=== PATIENT | female | born 1950 | race Caucasian/White ===

== ENCOUNTER 2017-06-08 12:20 | Inpatient (IN) | payer OTHER ==
[2017-06-08] MEDS ORDERED: IPRATROPIUM BR 0.02% 0.5 MG/2.5 ML VIAL.NEB. NEB ONE ×2 (12:26→20:01)
[2017-06-08] MEDS ORDERED: ALBUTEROL SO4 0.083% IH SOL 2.5 MG/3 ML VIAL.NEB. NEB ONE ×6 (12:26→20:03)
[2017-06-08 13:07] LABS: BASOPHIL 0.3 % (0-2.0); EOSINOPHIL 2.5 % (0-4.5); MCH 28.3 pg (25.7-33.7); MCHC 31.6 g/dl (32.0-36.0); MEAN CELL VOLUME 89.4 fl (80-96); MEAN PLT VOLUME 8.2 fl (7.5-11.1); NEUTROPHILS 82.2 % (42.8-82.8); PLATELET COUNT 332 K/MM3 (134-434); RDW 13.7 % (11.6-15.6); WHITE BLOOD COUNT 16.2 K/mm3 (4.0-10.0)
[2017-06-08 13:22] LABS: INR 1.05 (0.82-1.09); PROTHROMBIN TIME (PATIENT) 11.6 SEC (9.98-11.88)
[2017-06-08 13:31] LABS: ALBUMIN 2.8 g/dl (3.4-5.0); ANION GAP 6 (8-16); CALCIUM 8.7 mg/dL (8.5-10.1); CO2 38 mmol/L (21-32); CREATININE 0.5 mg/dL (0.55-1.02); GLUCOSE,RANDOM 99 mg/dL (74-106); SGPT/ALT 14 U/L (12-78)
[2017-06-08 13:34] LABS: ALK PHOS 72 U/L (45-117); BILIRUBIN,TOTAL 0.4 mg/dL (0.2-1.0); TOT PROT 6.2 g/dl (6.4-8.2); TROPONIN I < 0.02 ng/ml (0.00-0.05)
[2017-06-08 13:35] LABS: CPK 73 IU/L (26-192); SGOT/AST 23 U/L (15-37)
--- NOTE | 2017-06-08 13:48 | PDOC ---
History of Present Illness - General History Source: Patient Exam Limitations: No Limitations - History of Present Illness Initial Comments: 06/08/17 14:03 The patient is a 65 year old female, with a significant past medical history of AFib, COPD(s/p trach), hypertension, and anemia, who presents to the ED BIBA from [facility] for evaluation of shortness of breath. Per EMS, patient O2 Sats were dropping into the low 90s earlier today. At the time patient had her trach uncapped. She denies any fever or chills. She denies any chest pain, diaphoresis, or palpitations. Allergies: IV dye, iodine Past Surgical History: Tracheostomy PCP: Dr. Lopez <Guerita Adams - Last Filed: 06/08/17 14:06> <Prateek Peace - Last Filed: 06/08/17 16:47> - General Stated Complaint: SOB Time Seen by Provider: 06/08/17 12:38 Past History <Guerita Adams - Last Filed: 06/08/17 14:06> - Past Medical History Anemia: Yes Cardiac Disorders: Yes (a-fib) COPD: Yes HIV: Yes - Surgical History Cholecystectomy: Yes - Immunization History Immunization Up to Date: Yes - Psycho/Social/Smoking Cessation Hx Anxiety: No Suicidal Ideation: No Smoking History: Former smoker Have you smoked in the past 12 months: No If you are a former smoker, when did you quit?: 8 YEARS AGO Hx Alcohol Use: No Drug/Substance Use Hx: No Substance Use Type: None Hx Substance Use Treatment: No <Prateek Peace - Last Filed: 06/08/17 16:47> - Past Medical History Allergies/Adverse Reactions: Allergies Allergy/AdvReac Type Severity Reaction Status Date / Time peas Allergy Severe Difficulty Verified 02/01/16 17:53 Breathing Iodinated Contrast- Oral and Allergy Verified 02/01/16 17:53 IV Dye [Iodinated Contrast Media - IV Dye] iodine Allergy Verified 02/01/16 17:53 Home Medications: Ambulatory Orders Albuterol 2.5/Ipratropium 0.5 [Duoneb -] 1 neb NEB TID 02/01/16 Aspirin [Ecotrin] 81 mg PO DAILY 02/01/16 Benzocaine/Menthol [Cepacol Sore Throat Lozenge] 1 each MM PRN PRN 02/01/16 Chlorhexidine Gluconate [Hibiclens For Decolonization -] 1 ml PO BID 02/01/16 Diltiazem Cd [Cardizem Cd -] 180 mg PO DAILY 02/01/16 Fluticasone Propionate [Flovent Diskus] 44 mcg IH Q12H 02/01/16 Folic Acid 1 mg PO DAILY 02/01/16 Lactobacillus Acidophilus [Bacid -] 1 each PO BID 02/01/16 Levothyroxine [Synthroid -] 50 mcg PO DAILY 02/01/16 Lorazepam 0.5 mg PO TID PRN 02/01/16 Melatonin 3 mg PO HS 02/01/16 Mirtazapine 15 mg PO HS 02/01/16 Peg 400/Hypromellose/Glycerin [Artificial Tears Drops] 1 drop OU DAILY 02/01/16 Thiamine HCl [Vitamin B1 -] 100 mg PO DAILY 02/01/16 Vitamin B Complex Vit C No.3 [B Complex with Vitamin C] 1 each PO DAILY Vancomycin HCl [Vancocin HCl] 125 mg PO Q72H 02/02/16 Prednisone [Deltasone -] 20 mg PO DAILY tablet 02/09/16 Ranitidine [Zantac -] 150 mg PO DAILY tablet 02/09/16 Review of Systems - Review of Systems Able to Perform ROS?: Yes Comments:: 06/08/17 14:04 GENERAL/CONSTITUTIONAL: No fever or chills. No weakness. HEAD, EYES, EARS, NOSE AND THROAT: No change in vision. No ear pain or discharge. No sore throat. CARDIOVASCULAR: No chest pain or shortness of breath. RESPIRATORY: No cough, wheezing, or hemoptysis. GASTROINTESTINAL: No nausea, vomiting, diarrhea or constipation. GENITOURINARY: No dysuria, frequency, or change in urination. MUSCULOSKELETAL: No joint or muscle swelling or pain. No neck or back pain. SKIN: No rash NEUROLOGIC: No headache, vertigo, loss of consciousness, or change in strength/ sensation. ENDOCRINE: No increased thirst. No abnormal weight change. HEMATOLOGIC/LYMPHATIC: No anemia, easy bleeding, or history of blood clots. ALLERGIC/IMMUNOLOGIC: No hives or skin allergy. <Guerita Adams - Last Filed: 06/08/17 14:06> *Physical Exam - Vital Signs Last Vital Signs Temp Pulse Resp BP Pulse Ox 14 06/08/17 13:34 - Physical Exam Comments: 06/08/17 14:04 GENERAL: Awake, alert, and fully oriented, in no acute distress HEAD: No signs of trauma EYES: PERRLA, EOMI, sclera anicteric, conjunctiva clear ENT: Auricles normal inspection, hearing grossly normal, nares patent, oropharynx clear without exudates. Moist mucosa NECK: Normal ROM, supple, no lymphadenopathy, JVD, or masses LUNGS: Diffuse ronchi and wheezing. Attempted to change trach tube from uncuffed to cuffed, but was unsuccessful. HEART: Regular rate and rhythm, normal S1 and S2, no murmurs, rubs or gallops ABDOMEN: Soft, nontender, normoactive bowel sounds. No guarding, no rebound. No masses EXTREMITIES: Normal range of motion, no edema. No clubbing or cyanosis. No cords, erythema, or tenderness NEUROLOGICAL: Cranial nerves II through XII grossly intact. Normal speech, normal gait SKIN: Warm, Dry, normal turgor, no rashes or lesions noted <Guerita Adams - Last Filed: 06/08/17 14:06> - Vital Signs Last Vital Signs Temp Pulse Resp BP Pulse Ox 14 06/08/17 13:34 <Prateek Peace - Last Filed: 06/08/17 16:47> Heart Score/ECG Review - ECG Intrepretation Comment:: 06/08/17 14:06 VENT RATE: 86 bpm IMPRESSION: Normal sinus rhythm. <Guerita Adams - Last Filed: 06/08/17 14:06> ED Treatment Course - LABORATORY CBC & Chemistry Diagram: 06/08/17 12:30 06/08/17 12:30 - ADDITIONAL ORDERS Additional order review: Laboratory Results 06/08/17 06/08/17 12:30 12:30 INR 1.05 Sodium 139 Potassium 4.2 Chloride 95 L Carbon Dioxide 38 H Anion Gap 6 L BUN 15 D Creatinine 0.5 L Creat Clearance w eGFR > 60 Random Glucose 99 Calcium 8.7 Total Bilirubin 0.4 D AST 23 D ALT 14 D Alkaline Phosphatase 72 Creatine Kinase 73 Troponin I < 0.02 Total Protein 6.2 L Albumin 2.8 L D 06/08/17 12:30 RBC 4.04 MCV 89.4 MCHC 31.6 L RDW 13.7 MPV 8.2 Neutrophils % 82.2 Lymphocytes % 7.1 L D Monocytes % 7.9 Eosinophils % 2.5 D Basophils % 0.3 <Guerita Adams - Last Filed: 06/08/17 14:06> - LABORATORY CBC & Chemistry Diagram: 06/08/17 12:30 06/08/17 12:30 - ADDITIONAL ORDERS Additional order review: Laboratory Results 06/08/17 06/08/17 12:30 12:30 INR 1.05 Sodium 139 Potassium 4.2 Chloride 95 L Carbon Dioxide 38 H Anion Gap 6 L BUN 15 D Creatinine 0.5 L Creat Clearance w eGFR > 60 Random Glucose 99 Calcium 8.7 Total Bilirubin 0.4 D AST 23 D ALT 14 D Alkaline Phosphatase 72 Creatine Kinase 73 Troponin I < 0.02 Total Protein 6.2 L Albumin 2.8 L D 06/08/17 12:30 RBC 4.04 MCV 89.4 MCHC 31.6 L RDW 13.7 MPV 8.2 Neutrophils % 82.2 Lymphocytes % 7.1 L D Monocytes % 7.9 Eosinophils % 2.5 D Basophils % 0.3 <Prateek Peace - Last Filed: 06/08/17 16:47> *DC/Admit/Observation/Transfer - Attestations Scribe Attestion: 06/08/17 14:05 Documentation prepared by Guerita Adams, acting as medical detailist for Prateek Peace DO. <Guerita Adams - Last Filed: 06/08/17 14:06> - Discharge Dispostion Admit: Yes - Attestations Physician Attestion: 06/08/17 13:48 I, Dr. Prateek Peace, attest that this document has been prepared under my direction and personally reviewed by me in its entirety. I further attest, that it accurately reflects all work, treatment, procedures and medical decision -making performed by me. <Prateek Peace - Last Filed: 06/08/17 16:47> Diagnosis at time of Disposition: Chronic obstructive asthma with exacerbation, Hypoxia - Discharge Dispostion Condition at time of disposition: Improved - Referrals Referrals: Cindy Cavanaugh MD [Primary Care Provider] -
[2017-06-08] MEDS ORDERED: methylPREDNISolone NA SUCC 125 MG/2 ML VIAL IVPB ONE (14:22)
[2017-06-08] MEDS ORDERED: LEVOFLOXACIN 750 MG IVPB 150 ML IVPB ONE ×2 (14:23→14:53)
[2017-06-08] MEDS ORDERED: methylPREDNISolone NA SUCC 125 MG/2 ML VIAL ONE (14:52)
[2017-06-08 16:44] VITALS: BMI 25.4
[2017-06-08] MEDS ORDERED: ALBUTEROL SO4 2.5/IPRATROPIUM 0.5 INH SOL 3 ML VIAL.NEB. NEB ONE (19:05)
[2017-06-08] MEDS ORDERED: VANCOMYCIN HCL 125 MG PO SCH (20:15)
[2017-06-08] MEDS: ALBUTEROL SO4 2.5/IPRATROPIUM 0.5 INH SOL 3 ML VIAL.NEB. NEB SCH (22:21)
[2017-06-08] MEDS: LORazepam 0.5 MG TABLET PO PRN (22:30)
[2017-06-08] MEDS: ACETAMINOPHEN 325 MG TABLET (FP) PO PRN (22:30)
[2017-06-08] MEDS: MIRTAZAPINE 15 MG TABLET (FP) PO SCH (22:30)
[2017-06-08] MEDS: LACTOBACILLUS ACIDOPHILUS 1 EACH TAB (FP) PO SCH (22:30)
[2017-06-08] MEDS: methylPREDNISolone NA SUCC 40 MG/1 ML VIAL IVPB SCH (22:30)
[2017-06-08] MEDS: HEPARIN NA (PORCINE) 5,000 UNITS/ML 1ML VIAL SQ SCH (22:31)
[2017-06-08] MEDS: MELATONIN 1 MG TABLET PO SCH (22:45)
[2017-06-09] MEDS: ALBUTEROL SO4 2.5/IPRATROPIUM 0.5 INH SOL 3 ML VIAL.NEB. NEB SCH ×5 (00:21→23:02)
[2017-06-09] MEDS: methylPREDNISolone NA SUCC 40 MG/1 ML VIAL IVPB SCH ×4 (03:02→20:57)
[2017-06-09] MEDS: LEVOTHYROXINE NA 50 MCG TABLET (FP) PO SCH (06:16)
[2017-06-09 07:47] LABS: BASOPHIL 0.1 % (0-2.0); MCH 29.3 pg (25.7-33.7); MEAN CELL VOLUME 88.9 fl (80-96); MEAN PLT VOLUME 8.5 fl (7.5-11.1); NEUTROPHILS 94.2 % (42.8-82.8); PLATELET COUNT 333 K/MM3 (134-434); RDW 13.6 % (11.6-15.6); WHITE BLOOD COUNT 7.9 K/mm3 (4.0-10.0)
--- NOTE | 2017-06-09 08:08 | HP ---
Admitting History and Physical - Admission History of Present Illness: 65 year old female, with a significant past medical history of AFib, COPD(s/p trach), hypertension, and anemia, who presents to the ED BIBA from [facility] for evaluation of shortness of breath. Per EMS, patient O2 Sats were dropping into the low 90s. At the time patient had her trach uncapped. She denies any fever, chills, diaphoresis, or palpitations. c/o intermittent chest pain initially right sided then on left - Past Medical History Cardiovascular: Yes: AFIB, HTN Pulmonary: Yes: COPD, Previously Intubated, Other (RESPIRATORY FAILURE) ...: No Heme/Onc: Yes: Anemia Infectious Disease: Yes: C-Diff Endocrine: Yes: Hypothyroidism - Past Surgical History Past Surgical History: Yes: Appendectomy - Smoking History Smoking history: Former smoker Have you smoked in the past 12 months: No If you are a former smoker, when did you quit?: 2008 - Alcohol/Substance Use Hx Alcohol Use: Yes (SOCIALLY) - Social History ADL: Support Services History of Recent Travel: No Home Medications - Allergies Allergies/Adverse Reactions: Allergies Allergy/AdvReac Type Severity Reaction Status Date / Time peas Allergy Severe Difficulty Verified 02/01/16 17:53 Breathing Iodinated Contrast- Oral and Allergy Verified 02/01/16 17:53 IV Dye [Iodinated Contrast Media - IV Dye] iodine Allergy Verified 02/01/16 17:53 - Home Medications Home Medications: Ambulatory Orders Albuterol 2.5/Ipratropium 0.5 [Duoneb -] 1 neb NEB TID 02/01/16 Aspirin [Ecotrin] 81 mg PO DAILY 02/01/16 Benzocaine/Menthol [Cepacol Sore Throat Lozenge] 1 each MM PRN PRN 02/01/16 Chlorhexidine Gluconate [Hibiclens For Decolonization -] 1 ml PO BID 02/01/16 Diltiazem Cd [Cardizem Cd -] 180 mg PO DAILY 02/01/16 Fluticasone Propionate [Flovent Diskus] 44 mcg IH Q12H 02/01/16 Folic Acid 1 mg PO DAILY 02/01/16 Lactobacillus Acidophilus [Bacid -] 1 each PO BID 02/01/16 Levothyroxine [Synthroid -] 50 mcg PO DAILY 02/01/16 Lorazepam 0.5 mg PO TID PRN 02/01/16 Melatonin 3 mg PO HS 02/01/16 Mirtazapine 15 mg PO HS 02/01/16 Peg 400/Hypromellose/Glycerin [Artificial Tears Drops] 1 drop OU DAILY 02/01/16 Thiamine HCl [Vitamin B1 -] 100 mg PO DAILY 02/01/16 Vitamin B Complex Vit C No.3 [B Complex with Vitamin C] 1 each PO DAILY Vancomycin HCl [Vancocin HCl] 125 mg PO Q72H 02/02/16 Prednisone [Deltasone -] 20 mg PO DAILY tablet 02/09/16 Ranitidine [Zantac -] 150 mg PO DAILY tablet 02/09/16 Review of Systems - Review of Systems Cardiovascular: reports: Chest Pain Respiratory: reports: SOB Gastrointestinal: denies: Abdominal Pain Neurological: denies: Change in LOC Physical Examination Vital Signs: Vital Signs Temperature 98.1 F 06/09/17 06:00 Pulse Rate 90 06/09/17 06:00 Respiratory Rate 19 06/09/17 06:00 Blood Pressure 140/54 06/09/17 06:00 O2 Sat by Pulse Oximetry (%) 99 06/09/17 06:00 Cardiovascular: Yes: Murmur, S1, S2 Respiratory: Yes: Diminished, Rhonchi, Other (trach) Gastrointestinal: Yes: Normal Bowel Sounds, Soft Labs: CBC, BMP 06/09/17 05:35 Imaging - Results Chest X-ray: Report Reviewed Problem List - Problems (1) Asthma exacerbation in COPD Assessment/Plan: NEBS IV STEROIDS PULM CONSULT OXYGEN Code(s): J44.1 - CHRONIC OBSTRUCTIVE PULMONARY DISEASE W (ACUTE) EXACERBATION J45.901 - UNSPECIFIED ASTHMA WITH (ACUTE) EXACERBATION (2) Acute and chronic respiratory failure with hypoxia Assessment/Plan: ABOVE Code(s): J96.21 - ACUTE AND CHRONIC RESPIRATORY FAILURE WITH HYPOXIA (3) Chest pain Assessment/Plan: FOLLOW CE EKG CARDIO Code(s): R07.9 - CHEST PAIN, UNSPECIFIED (4) Hypothyroid Assessment/Plan: SAME MEDS Code(s): E03.9 - HYPOTHYROIDISM, UNSPECIFIED
[2017-06-09 08:13] LABS: ALBUMIN 2.9 g/dl (3.4-5.0); ANION GAP 5 (8-16); CALCIUM 8.8 mg/dL (8.5-10.1); CO2 41 mmol/L (21-32); CREATININE 0.6 mg/dL (0.55-1.02); GLUCOSE,RANDOM 126 mg/dL (74-106); SGOT/AST 12 U/L (15-37); SGPT/ALT 15 U/L (12-78)
[2017-06-09 08:17] LABS: ALK PHOS 75 U/L (45-117); BILIRUBIN,TOTAL 0.5 mg/dL (0.2-1.0); TOT PROT 6.4 g/dl (6.4-8.2); TROPONIN I < 0.02 ng/ml (0.00-0.05)
[2017-06-09] MEDS: RANITIDINE HCL 150 MG TABLET (FP) PO SCH (09:47)
[2017-06-09] MEDS: THIAMINE HCL 100 MG TABLET (FP) PO SCH (09:47)
[2017-06-09] MEDS: ASPIRIN COATED 81 MG TABLET.EC PO SCH (09:47)
[2017-06-09] MEDS: LACTOBACILLUS ACIDOPHILUS 1 EACH TAB (FP) PO SCH ×2 (09:47→21:56)
[2017-06-09] MEDS: FOLIC ACID 1 MG TABLET (FP) PO SCH (09:47)
[2017-06-09] MEDS: CEFTRIAXONE 50 ML IVPB SCH (09:48)
[2017-06-09] MEDS: HEPARIN NA (PORCINE) 5,000 UNITS/ML 1ML VIAL SQ SCH ×2 (09:54→21:45)
--- NOTE | 2017-06-09 11:26 | EKG ---
Test Reason : Blood Pressure : / mmHG Vent. Rate : 086 BPM Atrial Rate : 086 BPM P-R Int : 134 ms QRS Dur : 074 ms QT Int : 382 ms P-R-T Axes : 076 -04 059 degrees QTc Int : 457 ms POOR DATA QUALITY, INTERPRETATION MAY BE ADVERSELY AFFECTED NORMAL SINUS RHYTHM NORMAL ECG WHEN COMPARED WITH ECG OF 02-FEB-2016 09:21, PREMATURE ATRIAL COMPLEXES ARE NO LONGER PRESENT NONSPECIFIC T WAVE ABNORMALITY NO LONGER EVIDENT IN ANTEROLATERAL LEADS Confirmed by TAINA MACIAS MD ([id number]) on 06/09/2017 11:26:34 AM Referred By: Confirmed By:TAINA MACIAS MD
[2017-06-09] MEDS: ACETAMINOPHEN 325 MG TABLET (FP) PO PRN (11:47)
[2017-06-09] MEDS ORDERED: oxyCODONE HCL 5 MG TABLET PO ONE (13:11)
--- NOTE | 2017-06-09 13:11 | CON.PULM ---
Consult Consult Specialty:: PULMONARY Referred by:: Dr. Lopez Reason for Consultation:: shortness of breath - History of Present Illness Chief Complaint: shortness of breath History of Present Illness: 67yo female with h/o HTN, COPD, chronic hypoxic respiratory failure s/p trach but maintained on trach collar, atrial fibrillation who [facility] breath. She does report a nonproductive cough as well as wheezing. +chest pain described as sharp, reproducible with palpation and worsened with deep inspiration and cough. No fevers or chills. - History Source History Provided By: Patient, Medical Record Limitations to Obtaining History: Clinical Condition - Past Medical History Cardio/Vascular: Yes: AFIB, HTN Pulmonary: Yes: COPD, Previously Intubated, Other (RESPIRATORY FAILURE) ...: No Infectious Disease: Yes: C-Diff Endocrine: Yes: Hypothyroidism - Past Surgical History Past Surgical History: Yes: Appendectomy - Alcohol/Substance Use Hx Alcohol Use: Yes (SOCIALLY) - Smoking History Smoking history: Former smoker Have you smoked in the past 12 months: No If you are a former smoker, when did you quit?: 2008 - Social History Usual Living Arrangement: Prison ADL: Support Services History of Recent Travel: No Home Medications - Allergies Allergies/Adverse Reactions: Allergies Allergy/AdvReac Type Severity Reaction Status Date / Time peas Allergy Severe Difficulty Verified 02/01/16 17:53 Breathing Iodinated Contrast- Oral and Allergy Verified 02/01/16 17:53 IV Dye [Iodinated Contrast Media - IV Dye] iodine Allergy Verified 02/01/16 17:53 - Home Medications Home Medications: Ambulatory Orders Albuterol 2.5/Ipratropium 0.5 [Duoneb -] 1 neb NEB TID 02/01/16 Aspirin [Ecotrin] 81 mg PO DAILY 02/01/16 Benzocaine/Menthol [Cepacol Sore Throat Lozenge] 1 each MM PRN PRN 02/01/16 Chlorhexidine Gluconate [Hibiclens For Decolonization -] 1 ml PO BID 02/01/16 Diltiazem Cd [Cardizem Cd -] 180 mg PO DAILY 02/01/16 Fluticasone Propionate [Flovent Diskus] 44 mcg IH Q12H 02/01/16 Folic Acid 1 mg PO DAILY 02/01/16 Lactobacillus Acidophilus [Bacid -] 1 each PO BID 02/01/16 Levothyroxine [Synthroid -] 50 mcg PO DAILY 02/01/16 Lorazepam 0.5 mg PO TID PRN 02/01/16 Melatonin 3 mg PO HS 02/01/16 Mirtazapine 15 mg PO HS 02/01/16 Peg 400/Hypromellose/Glycerin [Artificial Tears Drops] 1 drop OU DAILY 02/01/16 Thiamine HCl [Vitamin B1 -] 100 mg PO DAILY 02/01/16 Vitamin B Complex Vit C No.3 [B Complex with Vitamin C] 1 each PO DAILY Vancomycin HCl [Vancocin HCl] 125 mg PO Q72H 02/02/16 Prednisone [Deltasone -] 20 mg PO DAILY tablet 02/09/16 Ranitidine [Zantac -] 150 mg PO DAILY tablet 02/09/16 Review of Systems - Review of Systems Constitutional: denies: Chills, Fever Eyes: denies: Recent Change in Vision HENT: denies: Nasal Congestion, Throat Pain Neck: denies: Lumps, Stiffness, Tenderness Cardiovascular: reports: Palpitations, Shortness of Breath. denies: Chest Pain , Edema Respiratory: reports: Cough, SOB, SOB on Exertion, Wheezing. denies: Hemoptysis Gastrointestinal: denies: Abdominal Pain, Nausea, Vomiting Genitourinary: denies: Dysuria Neurological: denies: Dizziness, Headache Physical Exam Vital Sings: Vital Signs Temperature 97.3 F L 06/09/17 09:00 Pulse Rate 111 H 06/09/17 09:00 Respiratory Rate 22 06/09/17 09:00 Blood Pressure 150/76 06/09/17 09:00 O2 Sat by Pulse Oximetry (%) 99 06/09/17 06:00 Constitutional: Yes: Anxious Eyes: Yes: Conjunctiva Clear, EOM Intact HENT: Yes: Atraumatic, Normocephalic Neck: Yes: Supple, Trachea Midline Cardiovascular: Yes: Regular Rate and Rhythm Respiratory: Yes: Rhonchi ...Clubbing: No Gastrointestinal: Yes: Normal Bowel Sounds, Soft. No: Tenderness Edema: No Labs: CBC, BMP 06/09/17 05:35 06/09/17 05:35 Imaging - Results Chest X-ray: Report Reviewed, Image Reviewed (no infiltrates) Problem List - Problems (1) COPD exacerbation Code(s): J44.1 - CHRONIC OBSTRUCTIVE PULMONARY DISEASE W (ACUTE) EXACERBATION (2) Chronic respiratory failure with hypoxia Code(s): J96.11 - CHRONIC RESPIRATORY FAILURE WITH HYPOXIA (3) A-fib Code(s): I48.91 - UNSPECIFIED ATRIAL FIBRILLATION (4) Chest pain Code(s): R07.9 - CHEST PAIN, UNSPECIFIED Assessment/Plan Acute COPD Exacerbation Chronic Hypoxic Respiratory Failure s/p trach Atrial Fibrillation HTN - agree with IV medrol - inhaled bronchodilators - O2 to keep SpO2 >90% - rate controlled - DVT prophylaxis - pain control Thank you for this consult Tariq Alexander MD
[2017-06-09] MEDS: ARTIFICIAL TEARS (POLYVINYL ALCOHOL 1.4%) OPTH DROPS OU SCH (13:58)
--- NOTE | 2017-06-09 16:30 | PN ---
Progress Note (short form) - Note Progress Note: ID consult dictated Acute exacerbation COPD Hx refractory C difficile colitis Observe off antibiotics
[2017-06-09] MEDS ORDERED: BRIMONIDINE TARTRATE 0.15% OPHTHALMIC 5 ML BOTTLE OS SCH (17:15)
[2017-06-09] MEDS ORDERED: DORZOLAMIDE 2% HCL OPHTHALMIC SOLUTION 10 ML BOTTLE OS SCH (17:30)
[2017-06-09] MEDS: MIRTAZAPINE 15 MG TABLET (FP) PO SCH (21:45)
[2017-06-09] MEDS: MELATONIN 1 MG TABLET PO SCH (21:56)
[2017-06-09] MEDS: LORazepam 0.5 MG TABLET PO PRN (21:57)
[2017-06-10] MEDS: methylPREDNISolone NA SUCC 40 MG/1 ML VIAL IVPB SCH ×4 (02:40→22:00)
[2017-06-10] MEDS: ACETAMINOPHEN 325 MG TABLET (FP) PO PRN ×3 (04:55→20:16)
[2017-06-10] MEDS: LEVOTHYROXINE NA 50 MCG TABLET (FP) PO SCH (06:12)
[2017-06-10] MEDS: ALBUTEROL SO4 2.5/IPRATROPIUM 0.5 INH SOL 3 ML VIAL.NEB. NEB SCH ×2 (06:19→11:30)
[2017-06-10] MEDS: ASPIRIN COATED 81 MG TABLET.EC PO SCH (09:57)
[2017-06-10] MEDS: LACTOBACILLUS ACIDOPHILUS 1 EACH TAB (FP) PO SCH ×2 (09:57→22:00)
[2017-06-10] MEDS: THIAMINE HCL 100 MG TABLET (FP) PO SCH (09:57)
[2017-06-10] MEDS: CEFTRIAXONE 50 ML IVPB SCH (09:58)
[2017-06-10] MEDS: FOLIC ACID 1 MG TABLET (FP) PO SCH (09:58)
[2017-06-10] MEDS: RANITIDINE HCL 150 MG TABLET (FP) PO SCH (09:58)
[2017-06-10] MEDS: ARTIFICIAL TEARS (POLYVINYL ALCOHOL 1.4%) OPTH DROPS OU SCH (10:55)
[2017-06-10] MEDS: HEPARIN NA (PORCINE) 5,000 UNITS/ML 1ML VIAL SQ SCH ×2 (10:55→22:27)
--- NOTE | 2017-06-10 11:17 | PN ---
Progress Note, Physician History of Present Illness: PULMONARY ALERT,C/O INCREASED SOB,DIFFICULTY BRINGING UP SPUTUM.O2 SAT 98% ON TRACH COLLAR. - Current Medication List Current Medications: Active Medications Acetaminophen (Tylenol -) 650 mg PO Q4H PRN PRN Reason: FEVER OR PAIN Last Admin: 06/10/17 04:55 Dose: 650 mg Albuterol/Ipratropium (Duoneb -) 1 amp NEB QIDR [facility] Last Admin: 06/10/17 06:19 Dose: Not Given Artificial Tears (Artificial Tears) 1 drop OU DAILY [facility] Last Admin: 06/09/17 13:58 Dose: 1 drop Aspirin (Ecotrin -) 81 mg PO DAILY [facility] Last Admin: 06/10/17 09:57 Dose: 81 mg Diltiazem HCl (Cardizem Cd -) 180 mg PO DAILY [facility] Last Admin: 06/10/17 09:57 Dose: 180 mg Folic Acid (Folic Acid -) 1 mg PO DAILY [facility] Last Admin: 06/10/17 09:58 Dose: 1 mg Heparin Sodium (Porcine) (Heparin -) 5,000 unit SQ BID [facility] Last Admin: 06/10/17 10:55 Dose: Not Given Ceftriaxone Sodium (Rocephin 1gm Ivpb (Pre-Docked)) 50 mls @ 100 mls/hr IVPB DAILY [facility] Last Admin: 06/10/17 09:58 Dose: 100 mls/hr Lactobacillus Acidophilus (Bacid -) 1 tab PO BID [facility] Last Admin: 06/10/17 09:57 Dose: 1 tab Levothyroxine Sodium (Synthroid -) 50 mcg PO DAILY@0700 [facility] Last Admin: 06/10/17 06:12 Dose: 50 mcg Lorazepam (Ativan -) 0.5 mg PO TID PRN PRN Reason: ANXIETY Last Admin: 06/09/17 21:57 Dose: 0.5 mg Melatonin (Melatonin) 3 mg PO HS [facility] Last Admin: 06/09/17 21:56 Dose: 3 mg Methylprednisolone Sodium Succinate (Solu-Medrol -) 40 mg IVPB Q6H-IV [facility] Last Admin: 06/10/17 09:57 Dose: 40 mg Mirtazapine (Remeron -) 15 mg PO HS [facility] Last Admin: 06/09/17 21:45 Dose: Not Given Ranitidine HCl (Zantac -) 150 mg PO DAILY [facility] Last Admin: 06/10/17 09:58 Dose: 150 mg Thiamine HCl (Vitamin B1 -) 100 mg PO DAILY [facility] Last Admin: 06/10/17 09:57 Dose: 100 mg - Objective Vital Signs: Vital Signs Temperature 98.9 F 06/10/17 05:23 Pulse Rate 83 06/10/17 05:23 Respiratory Rate 20 06/10/17 05:23 Blood Pressure 135/56 06/10/17 05:23 O2 Sat by Pulse Oximetry (%) 94 L 06/09/17 22:13 Constitutional: Yes: Anxious, Mild Distress Eyes: Yes: WNL HENT: Yes: WNL Neck: Yes: Supple (TRACH) Cardiovascular: Yes: Pulse Irregular, S1, S2 Respiratory: Yes: Rales (BILATERAL CRACKLES 2/3 UP) Gastrointestinal: Yes: Normal Bowel Sounds, Soft Extremities: Yes: WNL Edema: No Labs: CBC, BMP 06/09/17 05:35 06/09/17 05:35 INR, PTT INR 1.05 (0.82-1.09) 06/08/17 12:30 Assessment/Plan Problem List - Problems (1) COPD exacerbation Code(s): J44.1 - CHRONIC OBSTRUCTIVE PULMONARY DISEASE W (ACUTE) EXACERBATION (2) Chronic respiratory failure with hypoxia Code(s): J96.11 - CHRONIC RESPIRATORY FAILURE WITH HYPOXIA (3) A-fib Code(s): I48.91 - UNSPECIFIED ATRIAL FIBRILLATION (4) Chest pain Code(s): R07.9 - CHEST PAIN, UNSPECIFIED Assessment/Plan Acute COPD Exacerbation Chronic Hypoxic Respiratory Failure s/p trach Atrial Fibrillation HTN - IV medrol - inhaled bronchodilators - O2 to keep SpO2 >90% - rate controlled - DVT prophylaxis - pain control - mucomyst - ENT f/u DR RAGLAND
--- NOTE | 2017-06-10 11:24 | CON.CARD ---
Consult Consult Specialty:: Cardiology Referred by:: Sneha Ash Reason for Consultation:: Dyspnea - History of Present Illness Chief Complaint: Dyspnea History of Present Illness: 67yo female with h/o HTN, COPD, chronic hypoxic respiratory failure s/p trach and maintained on trach collar, paroxysmal atrial fibrillation not on a/c due to fall risk referred from the assisted for worsening shortness of breath, nonproductive cough, thick, tenacious sputum as well as wheezing. She reports atypical chest pain described as sharp, reproducible with palpation and worsened with deep inspiration and cough. No fevers or chills, orthopnea, LE edema. - History Source History Provided By: Patient Limitations to Obtaining History: No Limitations - Past Medical History Cardio/Vascular: Yes: AFIB, HTN Pulmonary: Yes: COPD, Previously Intubated, Other (RESPIRATORY FAILURE) ...: No Infectious Disease: Yes: C-Diff Endocrine: Yes: Hypothyroidism - Past Surgical History Past Surgical History: Yes: Appendectomy - Alcohol/Substance Use Hx Alcohol Use: Yes (SOCIALLY) - Smoking History Smoking history: Former smoker Have you smoked in the past 12 months: No If you are a former smoker, when did you quit?: 2008 - Social History Usual Living Arrangement: [facility] ADL: Support Services History of Recent Travel: No Home Medications - Allergies Allergies/Adverse Reactions: Allergies Allergy/AdvReac Type Severity Reaction Status Date / Time peas Allergy Severe Difficulty Verified 02/01/16 17:53 Breathing Iodinated Contrast- Oral and Allergy Verified 02/01/16 17:53 IV Dye [Iodinated Contrast Media - IV Dye] iodine Allergy Verified 02/01/16 17:53 - Home Medications Home Medications: Ambulatory Orders Albuterol 2.5/Ipratropium 0.5 [Duoneb -] 1 neb NEB TID 02/01/16 Aspirin [Ecotrin] 81 mg PO DAILY 02/01/16 Benzocaine/Menthol [Cepacol Sore Throat Lozenge] 1 each MM PRN PRN 02/01/16 Chlorhexidine Gluconate [Hibiclens For Decolonization -] 1 ml PO BID 02/01/16 Diltiazem Cd [Cardizem Cd -] 180 mg PO DAILY 02/01/16 Fluticasone Propionate [Flovent Diskus] 44 mcg IH Q12H 02/01/16 Folic Acid 1 mg PO DAILY 02/01/16 Lactobacillus Acidophilus [Bacid -] 1 each PO BID 02/01/16 Levothyroxine [Synthroid -] 50 mcg PO DAILY 02/01/16 Lorazepam 0.5 mg PO TID PRN 02/01/16 Melatonin 3 mg PO HS 02/01/16 Mirtazapine 15 mg PO HS 02/01/16 Peg 400/Hypromellose/Glycerin [Artificial Tears Drops] 1 drop OU DAILY 02/01/16 Thiamine HCl [Vitamin B1 -] 100 mg PO DAILY 02/01/16 Vitamin B Complex Vit C No.3 [B Complex with Vitamin C] 1 each PO DAILY Vancomycin HCl [Vancocin HCl] 125 mg PO Q72H 02/02/16 Prednisone [Deltasone -] 20 mg PO DAILY tablet 02/09/16 Ranitidine [Zantac -] 150 mg PO DAILY tablet 02/09/16 Review of Systems - Review of Systems Respiratory: reports: Cough, SOB, Wheezing Vital Signs: Vital Signs Temperature 98.9 F 06/10/17 05:23 Pulse Rate 83 06/10/17 05:23 Respiratory Rate 20 06/10/17 05:23 Blood Pressure 135/56 06/10/17 05:23 O2 Sat by Pulse Oximetry (%) 94 L 06/09/17 22:13 Constitutional: Yes: No Distress, Calm, Thin HENT: Yes: Other (Trach collar) Neck: Yes: Supple Respiratory: Yes: Regular, Cough, Diminished, SOB Gastrointestinal: Yes: Normal Bowel Sounds, Soft Cardiovascular: Yes: Tachycardia JVD: No Carotid Bruit: No Heart Sounds: Yes: S1, S2 Murmur: Yes: Systolic Murmur, Grade 1 Edema: No - Other Data Labs, Other Data: CBC, BMP 06/09/17 05:35 06/09/17 05:35 INR, PTT INR 1.05 (0.82-1.09) 06/08/17 12:30 NSR @ 86, PAC no longer seen Tele: SR Ejection Fraction %: LVEF > or = 40 % Imaging - Results Chest X-ray: Report Reviewed (NAD) Problem List - Problems (1) Chronic respiratory failure with hypoxia Code(s): J96.11 - CHRONIC RESPIRATORY FAILURE WITH HYPOXIA (2) A-fib Code(s): I48.91 - UNSPECIFIED ATRIAL FIBRILLATION Qualifiers: Atrial fibrillation type: paroxysmal Qualified Code(s): I48.0 - Paroxysmal atrial fibrillation (3) COPD exacerbation Code(s): J44.1 - CHRONIC OBSTRUCTIVE PULMONARY DISEASE W (ACUTE) EXACERBATION (4) Chest pain Code(s): R07.9 - CHEST PAIN, UNSPECIFIED Qualifiers: Chest pain type: pleurodynia Qualified Code(s): R07.81 - Pleurodynia (5) Hypothyroid Code(s): E03.9 - HYPOTHYROIDISM, UNSPECIFIED Qualifiers: Hypothyroidism type: unspecified Qualified Code(s): E03.9 - Hypothyroidism, unspecified (6) Tracheostomy dependence Code(s): Z93.0 - TRACHEOSTOMY STATUS Assessment/Plan Echo 09/09/2015: nl LV/EF, nl RV, mild MR 1. Acute COPD Exacerbation 2. Chronic Hypoxic Respiratory Failure s/p trach 3. Paroxysmal Atrial Fibrillation/atrial tachycardia not on AC due to falls risks per prior notes 4. Atypical chest pain referable to #1 5. HTN 6. Hx refractory C difficile colitis 7. Hypothyroidism P: 1. IV medrol with GI protection, inhaled bronchodilators, O2 to keep SpO2 >90 %, mucomyst, DVT prophylaxis, d/c empiric abx per ID 2. Continue ASA 81 qd, Cardizem CD 180 qd 3. D/c telemetry 4. Thank you for consultative opportunity
[2017-06-10] MEDS ORDERED: ALBUTEROL SO4 0.083% IH SOL 2.5 MG/3 ML VIAL.NEB. NEB ONE (11:50)
[2017-06-10] MEDS ORDERED: ALBUTEROL SO4 2.5/IPRATROPIUM 0.5 INH SOL 3 ML VIAL.NEB. NEB PRN (11:55)
[2017-06-10] MEDS ORDERED: ALBUTEROL SO4 0.083% IH SOL 2.5 MG/3 ML VIAL.NEB. NEB SCH (12:00)
[2017-06-10] MEDS ORDERED: ACETYLCYSTEINE 20% 200MG/ML 4 ML VIAL *FOR ORAL / INH USE ONLY NEB SCH (12:00)
--- NOTE | 2017-06-10 13:29 | PN ---
Progress Note, Physician History of Present Illness: Slightly dyspneic at rest + cough; reports scant whitish tracheal secretions Afebrile WBC WNL - Current Medication List Current Medications: Active Medications Acetaminophen (Tylenol -) 650 mg PO Q4H PRN PRN Reason: FEVER OR PAIN Last Admin: 06/10/17 04:55 Dose: 650 mg Acetylcysteine (Mucomyst 20 Oral / Inh Use Only*) 200 mg NEB QIDR [facility] Albuterol Sulfate (Ventolin 0.083% Nebulizer Soln -) 1 amp NEB QIDR [facility] Artificial Tears (Artificial Tears) 1 drop OU DAILY [facility] Last Admin: 06/10/17 10:55 Dose: 1 drop Aspirin (Ecotrin -) 81 mg PO DAILY [facility] Last Admin: 06/10/17 09:57 Dose: 81 mg Diltiazem HCl (Cardizem Cd -) 180 mg PO DAILY [facility] Last Admin: 06/10/17 09:57 Dose: 180 mg Folic Acid (Folic Acid -) 1 mg PO DAILY [facility] Last Admin: 06/10/17 09:58 Dose: 1 mg Heparin Sodium (Porcine) (Heparin -) 5,000 unit SQ BID [facility] Last Admin: 06/10/17 10:55 Dose: Not Given Ceftriaxone Sodium (Rocephin 1gm Ivpb (Pre-Docked)) 50 mls @ 100 mls/hr IVPB DAILY [facility] Last Admin: 06/10/17 09:58 Dose: 100 mls/hr Lactobacillus Acidophilus (Bacid -) 1 tab PO BID [facility] Last Admin: 06/10/17 09:57 Dose: 1 tab Levothyroxine Sodium (Synthroid -) 50 mcg PO DAILY@0700 [facility] Last Admin: 06/10/17 06:12 Dose: 50 mcg Lorazepam (Ativan -) 0.5 mg PO TID PRN PRN Reason: ANXIETY Last Admin: 06/09/17 21:57 Dose: 0.5 mg Melatonin (Melatonin) 3 mg PO [facility] Last Admin: 06/09/17 21:56 Dose: 3 mg Methylprednisolone Sodium Succinate (Solu-Medrol -) 40 mg IVPB Q6H-IV [facility] Last Admin: 06/10/17 09:57 Dose: 40 mg Mirtazapine (Remeron -) 15 mg PO HS [facility] Last Admin: 06/09/17 21:45 Dose: Not Given Ranitidine HCl (Zantac -) 150 mg PO DAILY [facility] Last Admin: 06/10/17 09:58 Dose: 150 mg Thiamine HCl (Vitamin B1 -) 100 mg PO DAILY [facility] Last Admin: 06/10/17 09:57 Dose: 100 mg - Objective Vital Signs: Vital Signs Temperature 98.1 F 06/10/17 08:00 Pulse Rate 77 06/10/17 08:00 Respiratory Rate 20 06/10/17 08:00 Blood Pressure 148/63 06/10/17 08:00 O2 Sat by Pulse Oximetry (%) 94 L 06/09/17 22:13 Constitutional: Yes: No Distress, Cachectic Eyes: Yes: Conjunctiva Clear Cardiovascular: Yes: Regular Rate and Rhythm, S1, S2 Respiratory: Yes: Diminished Gastrointestinal: Yes: Normal Bowel Sounds, Soft. No: Tenderness Edema: No Labs: CBC, BMP 06/09/17 05:35 06/09/17 05:35 INR, PTT INR 1.05 (0.82-1.09) 06/08/17 12:30 Assessment/Plan Acute exacerbation COPD Hx refractory C difficile Continue bronchodilators, steroids Observe off antibiotics
--- NOTE | 2017-06-10 16:56 | CONS ---
DATE OF CONSULTATION: DATE OF DICTATION: 06/10/2017 INFECTIOUS DISEASE CONSULTATION HISTORY OF PRESENT ILLNESS: The patient is a 67-year-old female evaluated for possible pneumonia. The patient has a history of COPD, she is status post tracheostomy. [facility] While [facility], she was noted to have increasing shortness of breath and hypoxemia. In addition, she had a cough productive of whitish sputum. She has had some increase in her chronic cough. She was evaluated at [facility] where she was noted to have low-grade fever and an elevated white blood cell count. She was empirically treated with ceftriaxone in addition to bronchodilators and intravenous corticosteroids. At the present time she is awake and alert. She is slightly short of breath at rest on tracheostomy collar. She reports cough productive of scants amount of whitish tracheal secretions. She denies any chest pain. She has a history of refractory C. 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 At the present time, she denies any diarrhea. PAST MEDICAL HISTORY: Positive for atrial fibrillation, chronic respiratory failure, COPD, hypertension, chronic anemia, hypothyroidism, history of refractory C. difficile colitis. PAST SURGICAL HISTORY: Status post tracheostomy, sinus surgery, and appendectomy. ALLERGIES: IODINE and IV CONTRAST. MEDICATION: Include Solu-Medrol, Tylenol, heparin, Remeron, Cardizem, Zantac, Ecotrin, Synthroid. SOCIAL HISTORY: She resides in a residential facility. She has been there approximately 2 years. She is a former smoker. No history of tobacco use or alcohol abuse. SYSTEMS REVIEW: Neurologic: No loss of consciousness, seizure activity, or focal weakness. Cardiac: Negative chest pain or palpitations. Respiratory: As per HPI. Gastrointestinal: As per HPI. Genitourinary: Negative for urinary tract infection. LABORATORY DATA: White count on admission 16.2, presently 7.9. Hematocrit 35.5, platelet count 333. BUN 14, creatinine 0.6. Chest x-ray, chronic changes bilaterally, no acute infiltrate. PHYSICAL EXAMINATION: General: She is cachectic, she is awake and alert. She is slightly short of breath at rest on tracheostomy collar. Vital signs: Temperature 99.1, blood pressure 135/80, pulse 88 irregular. Respirations 22 per minute. HEENT: Sclerae anicteric. Cardiovascular: Heart sounds S1, S2. Irregular. Respiratory: Lungs diminished breath sounds bilaterally. A few rhonchi. No rales or wheezing. Abdomen: Soft. No tenderness elicited. Extremities: Negative for edema. IMPRESSION: 1. Acute exacerbation of chronic obstructive pulmonary disease. 2. History of refractory Clostridium difficile colitis. 3. No clear infiltrate on chest x-ray, patient presently afebrile with normal white blood cell count. In light of her recent history of severe C. difficile colitis requiring fecal transplant, would observe off antibiotic therapy, continue bronchodilators, and intravenous corticosteroids. Will follow. Thank you for the kind referral. KARISSA ROSAS M.D. [id number]
[2017-06-10] MEDS: ACETYLCYSTEINE 20% 200MG/ML 4 ML VIAL *FOR ORAL / INH USE ONLY NEB SCH ×2 (17:41→17:55)
[2017-06-10] MEDS: ALBUTEROL SO4 0.083% IH SOL 2.5 MG/3 ML VIAL.NEB. NEB SCH ×2 (17:42→17:56)
[2017-06-10] MEDS: FLUTICASONE PROPIONATE 44 MCG IH SCH ×2 (17:53→18:07)
--- NOTE | 2017-06-10 19:23 | PN ---
Progress Note, Physician Chief Complaint: SOB History of Present Illness: NAD, in bed, on 100% trach, +cough, still feels SOB - Current Medication List Current Medications: Active Medications Acetaminophen (Tylenol -) 650 mg PO Q4H PRN PRN Reason: FEVER OR PAIN Last Admin: 06/10/17 14:50 Dose: 650 mg Acetylcysteine (Mucomyst 20 Oral / Inh Use Only*) 200 mg NEB QIDR [facility] Last Admin: 06/10/17 17:55 Dose: 200 mg Albuterol Sulfate (Ventolin 0.083% Nebulizer Soln -) 1 amp NEB QIDR [facility] Last Admin: 06/10/17 17:56 Dose: 1 amp Artificial Tears (Artificial Tears) 1 drop OU DAILY [facility] Last Admin: 06/10/17 10:55 Dose: 1 drop Aspirin (Ecotrin -) 81 mg PO DAILY [facility] Last Admin: 06/10/17 09:57 Dose: 81 mg Diltiazem HCl (Cardizem Cd -) 180 mg PO DAILY [facility] Last Admin: 06/10/17 09:57 Dose: 180 mg Folic Acid (Folic Acid -) 1 mg PO DAILY [facility] Last Admin: 06/10/17 09:58 Dose: 1 mg Heparin Sodium (Porcine) (Heparin -) 5,000 unit SQ BID [facility] Last Admin: 06/10/17 10:55 Dose: Not Given Lactobacillus Acidophilus (Bacid -) 1 tab PO BID [facility] Last Admin: 06/10/17 09:57 Dose: 1 tab Levothyroxine Sodium (Synthroid -) 50 mcg PO DAILY@0700 [facility] Last Admin: 06/10/17 06:12 Dose: 50 mcg Lorazepam (Ativan -) 0.5 mg PO TID PRN PRN Reason: ANXIETY Last Admin: 06/09/17 21:57 Dose: 0.5 mg Melatonin (Melatonin) 3 mg PO HS [facility] Last Admin: 06/09/17 21:56 Dose: 3 mg Methylprednisolone Sodium Succinate (Solu-Medrol -) 40 mg IVPB Q6H-IV [facility] Last Admin: 06/10/17 19:04 Dose: 40 mg Mirtazapine (Remeron -) 15 mg PO HS [facility] Last Admin: 06/09/17 21:45 Dose: Not Given Ranitidine HCl (Zantac -) 150 mg PO DAILY [facility] Last Admin: 06/10/17 09:58 Dose: 150 mg Thiamine HCl (Vitamin B1 -) 100 mg PO DAILY [facility] Last Admin: 06/10/17 09:57 Dose: 100 mg - Objective Vital Signs: Vital Signs Temperature 97.9 F 06/10/17 14:00 Pulse Rate 92 H 06/10/17 14:00 Respiratory Rate 20 06/10/17 14:00 Blood Pressure 139/74 06/10/17 14:00 O2 Sat by Pulse Oximetry (%) 94 L 06/10/17 09:00 Constitutional: Yes: Well Nourished, No Distress, Calm Cardiovascular: Yes: Regular Rate and Rhythm Respiratory: Yes: Regular, Cough, Other (Tracheotomy) Gastrointestinal: Yes: Normal Bowel Sounds, Hyperactive Bowel Sounds, Other ( diarrhea) Musculoskeletal: Yes: WNL Extremities: Yes: WNL Edema: No Peripheral Pulses WNL: Yes Integumentary: Yes: WNL Neurological: Yes: Alert, Oriented Psychiatric: Yes: Alert Labs: CBC, BMP 06/09/17 05:35 06/09/17 05:35 INR, PTT INR 1.05 (0.82-1.09) 06/08/17 12:30 Problem List - Problems (1) Chronic respiratory failure with hypoxia Code(s): J96.11 - CHRONIC RESPIRATORY FAILURE WITH HYPOXIA (2) COPD (chronic obstructive pulmonary disease) Assessment/Plan: Trach mask, keep O2 >90% -IV steroids -Neb tx -Mucomyst -suction PRN Code(s): J44.9 - CHRONIC OBSTRUCTIVE PULMONARY DISEASE, UNSPECIFIED Qualifiers : COPD type: COPD with acute exacerbation Qualified Code(s): J44.1 - Chronic obstructive pulmonary disease with (acute) exacerbation (3) Diarrhea Assessment/Plan: Cdiff negative stool OB,O&P,culture ordered Code(s): R19.7 - DIARRHEA, UNSPECIFIED (4) Tracheostomy dependence Code(s): Z93.0 - TRACHEOSTOMY STATUS Assessment/Plan -Stool collection for O&P,culture and OB -pulmonary,ID and cardiology consult appreciated -IV steroids -neb tx -Trach mask with humidification -GI consult
[2017-06-10] MEDS: MIRTAZAPINE 15 MG TABLET (FP) PO SCH (22:27)
[2017-06-10] MEDS: MELATONIN 1 MG TABLET PO SCH (22:37)
[2017-06-10] MEDS ORDERED: traMADol HCL 50 MG TABLET PO PRN (22:52)
[2017-06-10] MEDS ORDERED: PT OWN MED DRAWER 7, Y5N ONE (23:21)
[2017-06-10] MEDS: LORazepam 0.5 MG TABLET PO PRN (23:26)
[2017-06-11] MEDS: methylPREDNISolone NA SUCC 40 MG/1 ML VIAL IVPB SCH ×4 (03:40→20:25)
[2017-06-11] MEDS: ACETAMINOPHEN 325 MG TABLET (FP) PO PRN ×2 (03:42→09:27)
[2017-06-11] MEDS: ACETYLCYSTEINE 20% 200MG/ML 4 ML VIAL *FOR ORAL / INH USE ONLY NEB SCH ×5 (06:15→23:58)
[2017-06-11] MEDS: ALBUTEROL SO4 0.083% IH SOL 2.5 MG/3 ML VIAL.NEB. NEB SCH ×5 (06:15→23:59)
[2017-06-11] MEDS: LEVOTHYROXINE NA 50 MCG TABLET (FP) PO SCH (06:53)
[2017-06-11] MEDS ORDERED: PT OWN MED DRAWER 7, Y5N ONE (09:18)
[2017-06-11] MEDS: LACTOBACILLUS ACIDOPHILUS 1 EACH TAB (FP) PO SCH ×2 (09:27→22:48)
[2017-06-11] MEDS: THIAMINE HCL 100 MG TABLET (FP) PO SCH (09:27)
[2017-06-11] MEDS: RANITIDINE HCL 150 MG TABLET (FP) PO SCH (09:27)
[2017-06-11] MEDS: ASPIRIN COATED 81 MG TABLET.EC PO SCH (09:27)
[2017-06-11] MEDS: FOLIC ACID 1 MG TABLET (FP) PO SCH (09:27)
[2017-06-11] MEDS: HEPARIN NA (PORCINE) 5,000 UNITS/ML 1ML VIAL SQ SCH ×3 (09:27→22:49)
[2017-06-11] MEDS: ARTIFICIAL TEARS (POLYVINYL ALCOHOL 1.4%) OPTH DROPS OU SCH (09:28)
--- NOTE | 2017-06-11 11:34 | PN ---
Progress Note, Physician Chief Complaint: Events noted Complains of dyspnea and palpitations Appears anxious History of Present Illness: Patient was seen and examined. Awake and alert. Chart was reviewed Complains of right sided chest discomfort Dyspnea persists and complains of palpitations - Current Medication List Current Medications: Active Medications Acetaminophen (Tylenol -) 650 mg PO Q4H PRN PRN Reason: FEVER OR PAIN Last Admin: 06/11/17 09:27 Dose: 650 mg Acetylcysteine (Mucomyst 20 Oral / Inh Use Only*) 200 mg NEB QIDR [facility] Last Admin: 06/11/17 06:15 Dose: 200 mg Albuterol Sulfate (Ventolin 0.083% Nebulizer Soln -) 1 amp NEB QIDR [facility] Last Admin: 06/11/17 06:15 Dose: 1 amp Artificial Tears (Artificial Tears) 1 drop OU DAILY [facility] Last Admin: 06/11/17 09:28 Dose: 1 drop Aspirin (Ecotrin -) 81 mg PO DAILY [facility] Last Admin: 06/11/17 09:27 Dose: 81 mg Diltiazem HCl (Cardizem Cd -) 180 mg PO DAILY [facility] Last Admin: 06/11/17 09:27 Dose: 180 mg Folic Acid (Folic Acid -) 1 mg PO DAILY [facility] Last Admin: 06/11/17 09:27 Dose: 1 mg Heparin Sodium (Porcine) (Heparin -) 5,000 unit SQ BID [facility] Last Admin: 06/11/17 09:46 Dose: Not Given Lactobacillus Acidophilus (Bacid -) 1 tab PO BID [facility] Last Admin: 06/11/17 09:27 Dose: 1 tab Levothyroxine Sodium (Synthroid -) 50 mcg PO DAILY@0700 [facility] Last Admin: 06/11/17 06:53 Dose: 50 mcg Lorazepam (Ativan -) 0.5 mg PO TID PRN PRN Reason: ANXIETY Last Admin: 06/10/17 23:26 Dose: 0.5 mg Melatonin (Melatonin) 3 mg PO [facility] Last Admin: 06/10/17 22:37 Dose: 3 mg Methylprednisolone Sodium Succinate (Solu-Medrol -) 40 mg IVPB Q6H-IV [facility] Last Admin: 06/11/17 09:27 Dose: 40 mg Mirtazapine (Remeron -) 15 mg PO HS [facility] Last Admin: 06/10/17 22:27 Dose: 15 mg Ranitidine HCl (Zantac -) 150 mg PO DAILY [facility] Last Admin: 06/11/17 09:27 Dose: 150 mg Thiamine HCl (Vitamin B1 -) 100 mg PO DAILY [facility] Last Admin: 06/11/17 09:27 Dose: 100 mg Tramadol HCl (Ultram -) 50 mg PO Q8H PRN Last Admin: 06/11/17 06:53 Dose: 50 mg - Objective Vital Signs: Vital Signs Temperature 98.5 F 06/11/17 06:00 Pulse Rate 83 06/11/17 06:44 Respiratory Rate 20 06/11/17 06:00 Blood Pressure 179/76 06/11/17 06:00 O2 Sat by Pulse Oximetry (%) 96 06/11/17 06:44 Neck: Yes: Supple Cardiovascular: Yes: Regular Rate and Rhythm, Tachycardia, S1, S2. No: Murmur Respiratory: Yes: Diminished Gastrointestinal: Yes: Normal Bowel Sounds, Soft. No: Tenderness Edema: No Labs: CBC, BMP 06/09/17 05:35 06/09/17 05:35 Problem List - Problems (1) Asthma exacerbation in COPD Code(s): J44.1 - CHRONIC OBSTRUCTIVE PULMONARY DISEASE W (ACUTE) EXACERBATION J45.901 - UNSPECIFIED ASTHMA WITH (ACUTE) EXACERBATION (2) Chronic respiratory failure with hypoxia Code(s): J96.11 - CHRONIC RESPIRATORY FAILURE WITH HYPOXIA (3) A-fib Code(s): I48.91 - UNSPECIFIED ATRIAL FIBRILLATION Qualifiers: Atrial fibrillation type: paroxysmal Qualified Code(s): I48.0 - Paroxysmal atrial fibrillation (4) Acute on chronic respiratory failure with hypoxia and hypercapnia Code(s): J96.21 - ACUTE AND CHRONIC RESPIRATORY FAILURE WITH HYPOXIA J96.22 - ACUTE AND CHRONIC RESPIRATORY FAILURE WITH HYPERCAPNIA (5) COPD exacerbation Code(s): J44.1 - CHRONIC OBSTRUCTIVE PULMONARY DISEASE W (ACUTE) EXACERBATION (6) Chest pain Code(s): R07.9 - CHEST PAIN, UNSPECIFIED Qualifiers: Chest pain type: pleurodynia Qualified Code(s): R07.81 - Pleurodynia (7) Hypothyroid Code(s): E03.9 - HYPOTHYROIDISM, UNSPECIFIED Qualifiers: Hypothyroidism type: unspecified Qualified Code(s): E03.9 - Hypothyroidism, unspecified (8) Recurrent Clostridium difficile diarrhea Code(s): A04.7 - ENTEROCOLITIS DUE TO CLOSTRIDIUM DIFFICILE (9) Tracheostomy dependence Code(s): Z93.0 - TRACHEOSTOMY STATUS Assessment/Plan 1. Acute COPD Exacerbation 2. Chronic Hypoxic Respiratory Failure s/p tracheostomy 3. Paroxysmal Atrial Fibrillation/atrial tachycardia not on anticoagulation due to falls risks 4. Atypical chest pain referable to #1 5. HTN 6. History of refractory C. Difficile colitis 7. Hypothyroidism PLAN: 1. Continue IV steroids with GI protection, inhaled bronchodilators, O2 via mask and DVT prophylaxis 2. Continue ASA 81 qd and Cardizem CD which can be up-titrated - increase to 240 mg once a day 3. Consider anxiety meds Further plans are to follow Bert Ivan MD
[2017-06-11] MEDS: LORazepam 0.5 MG TABLET PO PRN (11:43)
--- NOTE | 2017-06-11 12:16 | CON.GI ---
Consult Consult Specialty:: GI for Dr. Wong Referred by:: Sneha Ash NP Reason for Consultation:: Diarrhea - History of Present Illness Chief Complaint: Diarrhea History of Present Illness: 67F w/ end stage COPD, trach dependent admitted from [facility] for evaluation of worsening SOB. She says that since admission she has been having loose BM's. She has a history of refractory C. Diff and explains that she underwent Stool transplant at [facility] 03/22. This was performed via colonoscopy and polyps were removed as well. She denies abdominal pain or rectal bleeding but feels as though her shortness of breath is worse today. She had one loose BM today. She was given ceftriaxone during admission. She says that she has not had diarrhea since her fecal transplant - History Source History Provided By: Patient, Medical Record - Past Medical History Cardio/Vascular: Yes: AFIB, HTN Pulmonary: Yes: COPD, Previously Intubated, Other (RESPIRATORY FAILURE) ...: No Infectious Disease: Yes: C-Diff Endocrine: Yes: Hypothyroidism - Past Surgical History Past Surgical History: Yes: Appendectomy - Alcohol/Substance Use Hx Alcohol Use: Yes (SOCIALLY) - Smoking History Smoking history: Former smoker Have you smoked in the past 12 months: No If you are a former smoker, when did you quit?: 2008 - Social History Usual Living Arrangement: [facility] ADL: Support Services History of Recent Travel: No Home Medications - Allergies Allergies/Adverse Reactions: Allergies Allergy/AdvReac Type Severity Reaction Status Date / Time peas Allergy Severe Difficulty Verified 02/01/16 17:53 Breathing Iodinated Contrast- Oral and Allergy Verified 02/01/16 17:53 IV Dye [Iodinated Contrast Media - IV Dye] iodine Allergy Verified 02/01/16 17:53 - Home Medications Home Medications: Ambulatory Orders Albuterol 2.5/Ipratropium 0.5 [Duoneb -] 1 neb NEB TID 02/01/16 Aspirin [Ecotrin] 81 mg PO DAILY 02/01/16 Benzocaine/Menthol [Cepacol Sore Throat Lozenge] 1 each MM PRN PRN 02/01/16 Chlorhexidine Gluconate [Hibiclens For Decolonization -] 1 ml PO BID 02/01/16 Diltiazem Cd [Cardizem Cd -] 180 mg PO DAILY 02/01/16 Fluticasone Propionate [Flovent Diskus] 44 mcg IH Q12H 02/01/16 Folic Acid 1 mg PO DAILY 02/01/16 Lactobacillus Acidophilus [Bacid -] 1 each PO BID 02/01/16 Levothyroxine [Synthroid -] 50 mcg PO DAILY 02/01/16 Lorazepam 0.5 mg PO TID PRN 02/01/16 Melatonin 3 mg PO HS 02/01/16 Mirtazapine 15 mg PO HS 02/01/16 Peg 400/Hypromellose/Glycerin [Artificial Tears Drops] 1 drop OU DAILY 02/01/16 Thiamine HCl [Vitamin B1 -] 100 mg PO DAILY 02/01/16 Vitamin B Complex Vit C No.3 [B Complex with Vitamin C] 1 each PO DAILY Vancomycin HCl [Vancocin HCl] 125 mg PO Q72H 02/02/16 Prednisone [Deltasone -] 20 mg PO DAILY tablet 02/09/16 Ranitidine [Zantac -] 150 mg PO DAILY tablet 02/09/16 Review of Systems - Review of Systems Constitutional: denies: Chills HENT: denies: Difficult Swallowing Cardiovascular: reports: Shortness of Breath. denies: Chest Pain Gastrointestinal: reports: Diarrhea. denies: Abdominal Pain, Constipation, Rectal Bleeding Physical Exam-GI Vital Signs: Vital Signs Temperature 98.5 F 06/11/17 06:00 Pulse Rate 83 06/11/17 06:44 Respiratory Rate 20 06/11/17 06:00 Blood Pressure 179/76 06/11/17 06:00 O2 Sat by Pulse Oximetry (%) 96 06/11/17 06:44 Constitutional: Yes: Calm Eyes: No: Sclera Icterus Cardiovascular: Yes: Regular Rate and Rhythm. No: Murmur Respiratory: Yes: Rhonchi (scattered rhonchi bilateral bases), Tachypnea (With use of accessory muscles) Gastrointestinal Inspection: No: Distention ...Auscultate: Yes: Normoactive Bowel Sounds ...Palpate: No: Hepatomegaly, Splenomegaly, Tenderness Edema: No (No LE edema) Neurological: Yes: Alert, Oriented Labs: CBC, BMP 06/09/17 05:35 06/09/17 05:35 INR, PTT INR 1.05 (0.82-1.09) 06/08/17 12:30 Microbiology 06/10/17 10:30 Stool Clostridium difficile Antigen (TEDDY) - Negative 06/10/17 10:30 Stool Clostridium difficile Toxin Assay - Negative Problem List - Problems (1) Diarrhea Assessment/Plan: C. Diff toxin and antigen negative. ? if antibiotic / medication induced D/C ranitidine for now D/C melatonin if feasible Check TSH Taper off IV corticosteroids as feasible. ? if contributing Stool for O&P / culture Monitor electrolytes / CBC Patient's main complain to me was worsening SOB. I let her nurse know for further evaluation by primary team Code(s): R19.7 - DIARRHEA, UNSPECIFIED Qualifiers: Diarrhea type: unspecified type Qualified Code(s): R19.7 - Diarrhea , unspecified
[2017-06-11] MEDS ORDERED: MUPIROCIN 2% TOPICAL OINTMENT FOR DECOLONIZATION NS SCH (12:30)
--- NOTE | 2017-06-11 12:37 | PN ---
Progress Note, Physician Chief Complaint: SOB History of Present Illness: NAD, in bed, on 100% trach, +cough, still feels SOB positive MRSA left Nare, ID on board - Current Medication List Current Medications: Active Medications Acetaminophen (Tylenol -) 650 mg PO Q4H PRN PRN Reason: FEVER OR PAIN Last Admin: 06/11/17 09:27 Dose: 650 mg Acetylcysteine (Mucomyst 20 Oral / Inh Use Only*) 200 mg NEB QIDR [facility] Last Admin: 06/11/17 06:15 Dose: 200 mg Albuterol Sulfate (Ventolin 0.083% Nebulizer Soln -) 1 amp NEB QIDR [facility] Last Admin: 06/11/17 06:15 Dose: 1 amp Artificial Tears (Artificial Tears) 1 drop OU DAILY [facility] Last Admin: 06/11/17 09:28 Dose: 1 drop Aspirin (Ecotrin -) 81 mg PO DAILY [facility] Last Admin: 06/11/17 09:27 Dose: 81 mg Diltiazem HCl (Cardizem Cd -) 240 mg PO DAILY [facility] Folic Acid (Folic Acid -) 1 mg PO DAILY [facility] Last Admin: 06/11/17 09:27 Dose: 1 mg Heparin Sodium (Porcine) (Heparin -) 5,000 unit SQ BID [facility] Last Admin: 06/11/17 09:46 Dose: Not Given Lactobacillus Acidophilus (Bacid -) 1 tab PO BID [facility] Last Admin: 06/11/17 09:27 Dose: 1 tab Levothyroxine Sodium (Synthroid -) 50 mcg PO DAILY@0700 [facility] Last Admin: 06/11/17 06:53 Dose: 50 mcg Lorazepam (Ativan -) 0.5 mg PO TID PRN PRN Reason: ANXIETY Last Admin: 06/11/17 11:43 Dose: 0.5 mg Melatonin (Melatonin) 3 mg PO HS [facility] Last Admin: 06/10/17 22:37 Dose: 3 mg Methylprednisolone Sodium Succinate (Solu-Medrol -) 40 mg IVPB Q6H-IV [facility] Last Admin: 06/11/17 09:27 Dose: 40 mg Mirtazapine (Remeron -) 15 mg PO HS [facility] Last Admin: 06/10/17 22:27 Dose: 15 mg Mupirocin (Bactroban Ointment (For Decolonization) -) 1 applic NS BID [facility] Stop: 06/16/17 12:29 Ranitidine HCl (Zantac -) 150 mg PO DAILY [facility] Last Admin: 06/11/17 09:27 Dose: 150 mg Thiamine HCl (Vitamin B1 -) 100 mg PO DAILY [facility] Last Admin: 06/11/17 09:27 Dose: 100 mg Tramadol HCl (Ultram -) 50 mg PO Q8H PRN Last Admin: 06/11/17 06:53 Dose: 50 mg - Objective Vital Signs: Vital Signs Temperature 98.5 F 06/11/17 06:00 Pulse Rate 83 06/11/17 06:44 Respiratory Rate 20 06/11/17 06:00 Blood Pressure 179/76 06/11/17 06:00 O2 Sat by Pulse Oximetry (%) 96 06/11/17 06:44 Constitutional: Yes: Well Nourished, Anxious (mild), Mild Distress (sob) Cardiovascular: Yes: Pulse Irregular Respiratory: Yes: Diminished, SOB, Other (on trach collar, 50%) Gastrointestinal: Yes: Normal Bowel Sounds, Soft, Tenderness (generalized) Musculoskeletal: Yes: WNL Extremities: Yes: WNL Edema: No Peripheral Pulses WNL: Yes Neurological: Yes: Alert, Oriented Psychiatric: Yes: Alert Labs: CBC, BMP 06/09/17 05:35 06/09/17 05:35 INR, PTT INR 1.05 (0.82-1.09) 06/08/17 12:30 Problem List - Problems (1) Chronic respiratory failure with hypoxia Code(s): J96.11 - CHRONIC RESPIRATORY FAILURE WITH HYPOXIA (2) COPD (chronic obstructive pulmonary disease) Assessment/Plan: Trach mask, increased to 70%, keep O2 >90% -IV steroids -Neb tx -Mucomyst -suction PRN -started on pulmicort BID Code(s): J44.9 - CHRONIC OBSTRUCTIVE PULMONARY DISEASE, UNSPECIFIED Qualifiers : Qualified Code(s): J44.1 - Chronic obstructive pulmonary disease with ( acute) exacerbation (3) Diarrhea Assessment/Plan: likely due to history of c diff Cdiff negative stool OB,O&P,culture pending add probiotics BID and cholestyramine GI consult Code(s): R19.7 - DIARRHEA, UNSPECIFIED (4) Tracheostomy dependence Code(s): Z93.0 - TRACHEOSTOMY STATUS Assessment/Plan -Stool collection for O&P,culture and OB -pulmonary,ID and cardiology consult appreciated -IV steroids -neb tx -Trach mask with humidification -GI consult -pulmicort BID -Probiotic and cholestyramine -Increase FiO2 to 70% to maintain sPO2 >90% -Bactroban BID for MRSA of the left nare
--- NOTE | 2017-06-11 13:33 | PN ---
Progress Note, Physician History of Present Illness: pulmonary alert,feeling better,less dyspneic - Current Medication List Current Medications: Active Medications Acetaminophen (Tylenol -) 650 mg PO Q4H PRN PRN Reason: FEVER OR PAIN Last Admin: 06/11/17 09:27 Dose: 650 mg Acetylcysteine (Mucomyst 20 Oral / Inh Use Only*) 200 mg NEB QIDR [facility] Last Admin: 06/11/17 06:15 Dose: 200 mg Albuterol Sulfate (Ventolin 0.083% Nebulizer Soln -) 1 amp NEB QIDR [facility] Last Admin: 06/11/17 06:15 Dose: 1 amp Artificial Tears (Artificial Tears) 1 drop OU DAILY [facility] Last Admin: 06/11/17 09:28 Dose: 1 drop Aspirin (Ecotrin -) 81 mg PO DAILY [facility] Last Admin: 06/11/17 09:27 Dose: 81 mg Budesonide (Pulmicort 0.25 Mg Nebulizer -) 1 amp NEB BID [facility] Cholestyramine Resin (Questran Light Packet -) 4 gm PO BID [facility] Diltiazem HCl (Cardizem Cd -) 240 mg PO DAILY [facility] Folic Acid (Folic Acid -) 1 mg PO DAILY [facility] Last Admin: 06/11/17 09:27 Dose: 1 mg Heparin Sodium (Porcine) (Heparin -) 5,000 unit SQ BID [facility] Last Admin: 06/11/17 09:46 Dose: Not Given Lactobacillus Acidophilus (Bacid -) 1 tab PO BID [facility] Last Admin: 06/11/17 09:27 Dose: 1 tab Levothyroxine Sodium (Synthroid -) 50 mcg PO DAILY@0700 [facility] Last Admin: 06/11/17 06:53 Dose: 50 mcg Lorazepam (Ativan -) 0.5 mg PO TID PRN PRN Reason: ANXIETY Last Admin: 06/11/17 11:43 Dose: 0.5 mg Methylprednisolone Sodium Succinate (Solu-Medrol -) 40 mg IVPB Q6H-IV [facility] Last Admin: 06/11/17 09:27 Dose: 40 mg Mirtazapine (Remeron -) 15 mg PO HS [facility] Last Admin: 06/10/17 22:27 Dose: 15 mg Mupirocin (Bactroban 2% Ointment -) 1 applic NS BID [facility] Stop: 06/16/17 21:59 Ranitidine HCl (Zantac -) 150 mg PO DAILY [facility] Last Admin: 06/11/17 09:27 Dose: 150 mg Thiamine HCl (Vitamin B1 -) 100 mg PO DAILY [facility] Last Admin: 06/11/17 09:27 Dose: 100 mg Tramadol HCl (Ultram -) 100 mg PO Q8H PRN PRN Reason: PAIN - Objective Vital Signs: Vital Signs Temperature 98.4 F 06/11/17 10:00 Pulse Rate 88 06/11/17 10:00 Respiratory Rate 22 06/11/17 10:00 Blood Pressure 155/70 06/11/17 10:00 O2 Sat by Pulse Oximetry (%) 91 L 06/11/17 09:00 Constitutional: Yes: Calm, Thin Eyes: Yes: WNL HENT: Yes: WNL Neck: Yes: Supple (trach) Cardiovascular: Yes: Pulse Irregular, S1, S2 Respiratory: Yes: Rales (crackles left base) Gastrointestinal: Yes: Normal Bowel Sounds, Soft Extremities: Yes: WNL Edema: No Labs: CBC, BMP 06/09/17 05:35 06/09/17 05:35 INR, PTT INR 1.05 (0.82-1.09) 06/08/17 12:30 Assessment/Plan Problem List - Problems (1) COPD exacerbation Code(s): J44.1 - CHRONIC OBSTRUCTIVE PULMONARY DISEASE W (ACUTE) EXACERBATION (2) Chronic respiratory failure with hypoxia Code(s): J96.11 - CHRONIC RESPIRATORY FAILURE WITH HYPOXIA (3) A-fib Code(s): I48.91 - UNSPECIFIED ATRIAL FIBRILLATION (4) Chest pain Code(s): R07.9 - CHEST PAIN, UNSPECIFIED Assessment/Plan Acute COPD Exacerbation Chronic Hypoxic Respiratory Failure s/p trach Atrial Fibrillation HTN - IV medrol same dose - inhaled bronchodilators - O2 to keep SpO2 >90% - rate controlled - DVT prophylaxis - pain control - mucomyst - ENT f/u DR RAGLAND
[2017-06-11] MEDS: traMADol HCL 50 MG TABLET PO PRN ×2 (13:40→22:49)
[2017-06-11] MEDS: CHOLESTYRAMINE/ASPARTAME 4 GM PACKET PO SCH ×2 (13:41→22:49)
[2017-06-11] MEDS: BUDESONIDE 0.25 MG/2ML INH SUSP VIAL NEB SCH ×3 (14:00→23:00)
[2017-06-11] MEDS: MUPIROCIN 2% TOPICAL OINTMENT 22 GM TUBE NS SCH (22:46)
[2017-06-11] MEDS: MIRTAZAPINE 15 MG TABLET (FP) PO SCH (22:52)
[2017-06-12] MEDS: methylPREDNISolone NA SUCC 40 MG/1 ML VIAL IVPB SCH ×4 (04:00→21:16)
[2017-06-12] MEDS: ACETYLCYSTEINE 20% 200MG/ML 4 ML VIAL *FOR ORAL / INH USE ONLY NEB SCH ×4 (06:07→23:12)
[2017-06-12] MEDS: ALBUTEROL SO4 0.083% IH SOL 2.5 MG/3 ML VIAL.NEB. NEB SCH ×4 (06:07→23:12)
[2017-06-12] MEDS: LEVOTHYROXINE NA 50 MCG TABLET (FP) PO SCH (06:19)
[2017-06-12] MEDS: traMADol HCL 50 MG TABLET PO PRN ×3 (06:24→23:40)
[2017-06-12] MEDS ORDERED: PT OWN MED DRAWER 7, Y5N ONE ×2 (09:08→11:34)
[2017-06-12] MEDS: ASPIRIN COATED 81 MG TABLET.EC PO SCH (09:18)
[2017-06-12] MEDS: THIAMINE HCL 100 MG TABLET (FP) PO SCH (09:18)
[2017-06-12] MEDS: RANITIDINE HCL 150 MG TABLET (FP) PO SCH (09:18)
[2017-06-12] MEDS: CHOLESTYRAMINE/ASPARTAME 4 GM PACKET PO SCH ×2 (09:18→21:17)
[2017-06-12] MEDS: HEPARIN NA (PORCINE) 5,000 UNITS/ML 1ML VIAL SQ SCH ×2 (09:18→21:16)
[2017-06-12] MEDS: MUPIROCIN 2% TOPICAL OINTMENT 22 GM TUBE NS SCH ×2 (09:28→21:16)
[2017-06-12] MEDS: ARTIFICIAL TEARS (POLYVINYL ALCOHOL 1.4%) OPTH DROPS OU SCH (09:28)
[2017-06-12] MEDS: LACTOBACILLUS ACIDOPHILUS 1 EACH TAB (FP) PO SCH ×2 (09:41→21:16)
[2017-06-12] MEDS: FOLIC ACID 1 MG TABLET (FP) PO SCH (09:41)
[2017-06-12] MEDS: LORazepam 0.5 MG TABLET PO PRN (11:00)
--- NOTE | 2017-06-12 11:28 | CONSULT ---
Consult - text type - Consultation Consultation Note: ENT CONSULT Hx from chart: 65 year old female, with a significant past medical history of AFib, COPD(s/p trach), hypertension, and anemia, who presents to the ED [facility] from [facility] for evaluation of shortness of breath. Per EMS, patient O2 Sats were dropping into the low 90s. At the time patient had her trach uncapped. She denies any fever, chills, diaphoresis, or palpitations. I have been asked to do a trach change. She has a trach tube for 3 yrs. - Past Medical History Pulmonary: Yes: COPD, Previously Intubated, Other (RESPIRATORY FAILURE) Heme/Onc: Yes: Anemia Infectious Disease: Yes: C-Diff Endocrine: Yes: Hypothyroidism - Past Surgical History Appendectomy - Smoking History Smoking history: Former smoker Have you smoked in the past 12 months: No If you are a former smoker, when did you quit?: 2008 - Alcohol/Substance Use Hx Alcohol Use: Yes (SOCIALLY) ALLERGIES: iodine PE: Awake, alert with air hunger. On O2 via trach collar. More comfortable sitting up. Nose clear. Oral/OP wnl. neck without swelling/masses. #7 cuffless portex trach tube replace without problem. There is now an inner cannula. Stoma healthy. A/P: Chronic respiratory failure, COPD. f/u prn.
[2017-06-12] MEDS: BUDESONIDE 0.25 MG/2ML INH SUSP VIAL NEB SCH ×2 (11:43→22:05)
--- NOTE | 2017-06-12 11:58 | PN ---
Progress Note, Physician History of Present Illness: pulmonary alert,feeling better,less dyspneic - Current Medication List Current Medications: Active Medications Acetaminophen (Tylenol -) 650 mg PO Q4H PRN PRN Reason: FEVER OR PAIN Last Admin: 06/11/17 09:27 Dose: 650 mg Acetylcysteine (Mucomyst 20 Oral / Inh Use Only*) 200 mg NEB QIDR [facility] Last Admin: 06/12/17 11:54 Dose: 200 mg Albuterol Sulfate (Ventolin 0.083% Nebulizer Soln -) 1 amp NEB QIDR [facility] Last Admin: 06/12/17 11:54 Dose: 1 amp Artificial Tears (Artificial Tears) 1 drop OU DAILY [facility] Last Admin: 06/12/17 09:28 Dose: 1 drop Aspirin (Ecotrin -) 81 mg PO DAILY [facility] Last Admin: 06/12/17 09:18 Dose: 81 mg Budesonide (Pulmicort 0.25 Mg Nebulizer -) 1 amp NEB BID [facility] Last Admin: 06/12/17 11:43 Dose: 1 amp Cholestyramine Resin (Questran Light Packet -) 4 gm PO BID [facility] Last Admin: 06/12/17 09:18 Dose: 4 gm Diltiazem HCl (Cardizem Cd -) 240 mg PO DAILY [facility] Last Admin: 06/12/17 09:18 Dose: 240 mg Folic Acid (Folic Acid -) 1 mg PO DAILY [facility] Last Admin: 06/12/17 09:41 Dose: 1 mg Heparin Sodium (Porcine) (Heparin -) 5,000 unit SQ BID [facility] Last Admin: 06/12/17 09:18 Dose: Not Given Lactobacillus Acidophilus (Bacid -) 1 tab PO BID [facility] Last Admin: 06/12/17 09:41 Dose: 1 tab Levothyroxine Sodium (Synthroid -) 50 mcg PO DAILY@0700 [facility] Last Admin: 06/12/17 06:19 Dose: 50 mcg Lorazepam (Ativan -) 0.5 mg PO TID PRN PRN Reason: ANXIETY Last Admin: 06/12/17 11:00 Dose: 0.5 mg Methylprednisolone Sodium Succinate (Solu-Medrol -) 40 mg IVPB Q6H-IV [facility] Last Admin: 06/12/17 08:45 Dose: 40 mg Mirtazapine (Remeron -) 15 mg PO HS [facility] Last Admin: 06/11/17 22:52 Dose: Not Given Mupirocin (Bactroban 2% Ointment -) 1 applic NS BID [facility] Stop: 06/16/17 21:59 Last Admin: 06/12/17 09:28 Dose: 1 applic Ranitidine HCl (Zantac -) 150 mg PO DAILY [facility] Last Admin: 06/12/17 09:18 Dose: 150 mg Thiamine HCl (Vitamin B1 -) 100 mg PO DAILY [facility] Last Admin: 06/12/17 09:18 Dose: 100 mg Tramadol HCl (Ultram -) 100 mg PO Q8H PRN PRN Reason: PAIN Last Admin: 06/12/17 06:24 Dose: 100 mg - Objective Vital Signs: Vital Signs Temperature 98.3 F 06/12/17 10:00 Pulse Rate 93 H 06/12/17 10:00 Respiratory Rate 18 06/12/17 10:00 Blood Pressure 160/80 06/12/17 10:00 O2 Sat by Pulse Oximetry (%) 93 L 06/12/17 09:00 Constitutional: Yes: Calm, Thin Eyes: Yes: WNL HENT: Yes: WNL Neck: Yes: Supple (trach) Cardiovascular: Yes: Pulse Irregular, S1, S2 Respiratory: Yes: Rhonchi (few scattered chano rhonchi) Gastrointestinal: Yes: Normal Bowel Sounds, Soft Extremities: Yes: WNL Edema: No Labs: CBC, BMP 06/09/17 05:35 Assessment/Plan Problem List - Problems (1) COPD exacerbation Code(s): J44.1 - CHRONIC OBSTRUCTIVE PULMONARY DISEASE W (ACUTE) EXACERBATION (2) Chronic respiratory failure with hypoxia Code(s): J96.11 - CHRONIC RESPIRATORY FAILURE WITH HYPOXIA (3) A-fib Code(s): I48.91 - UNSPECIFIED ATRIAL FIBRILLATION (4) Chest pain Code(s): R07.9 - CHEST PAIN, UNSPECIFIED Assessment/Plan Acute COPD Exacerbation Chronic Hypoxic Respiratory Failure s/p trach Atrial Fibrillation HTN - IV medrol same dose start taper in am - inhaled bronchodilators - O2 to keep SpO2 >90% - rate controlled - DVT prophylaxis - pain control - mucomyst DR RAGLAND
--- NOTE | 2017-06-12 12:21 | PN ---
Progress Note, Physician Chief Complaint: Events noted Dyspnea and palpitations improving Breathing with tracheostomy History of Present Illness: Patient was seen and examined. Awake and alert. Chart was reviewed Denies chest discomfort - Current Medication List Current Medications: Active Medications Acetaminophen (Tylenol -) 650 mg PO Q4H PRN PRN Reason: FEVER OR PAIN Last Admin: 06/11/17 09:27 Dose: 650 mg Acetylcysteine (Mucomyst 20 Oral / Inh Use Only*) 200 mg NEB QIDR [facility] Last Admin: 06/12/17 11:54 Dose: 200 mg Albuterol Sulfate (Ventolin 0.083% Nebulizer Soln -) 1 amp NEB QIDR [facility] Last Admin: 06/12/17 11:54 Dose: 1 amp Artificial Tears (Artificial Tears) 1 drop OU DAILY [facility] Last Admin: 06/12/17 09:28 Dose: 1 drop Aspirin (Ecotrin -) 81 mg PO DAILY [facility] Last Admin: 06/12/17 09:18 Dose: 81 mg Budesonide (Pulmicort 0.25 Mg Nebulizer -) 1 amp NEB BID [facility] Last Admin: 06/12/17 11:43 Dose: 1 amp Cholestyramine Resin (Questran Light Packet -) 4 gm PO BID [facility] Last Admin: 06/12/17 09:18 Dose: 4 gm Diltiazem HCl (Cardizem Cd -) 240 mg PO DAILY [facility] Last Admin: 06/12/17 09:18 Dose: 240 mg Folic Acid (Folic Acid -) 1 mg PO DAILY [facility] Last Admin: 06/12/17 09:41 Dose: 1 mg Heparin Sodium (Porcine) (Heparin -) 5,000 unit SQ BID [facility] Last Admin: 06/12/17 09:18 Dose: Not Given Lactobacillus Acidophilus (Bacid -) 1 tab PO BID [facility] Last Admin: 06/12/17 09:41 Dose: 1 tab Levothyroxine Sodium (Synthroid -) 50 mcg PO DAILY@0700 [facility] Last Admin: 06/12/17 06:19 Dose: 50 mcg Lorazepam (Ativan -) 0.5 mg PO TID PRN PRN Reason: ANXIETY Last Admin: 06/12/17 11:00 Dose: 0.5 mg Methylprednisolone Sodium Succinate (Solu-Medrol -) 40 mg IVPB Q6H-IV [facility] Last Admin: 06/12/17 08:45 Dose: 40 mg Mirtazapine (Remeron -) 15 mg PO HS [facility] Last Admin: 06/11/17 22:52 Dose: Not Given Mupirocin (Bactroban 2% Ointment -) 1 applic NS BID [facility] Stop: 06/16/17 21:59 Last Admin: 06/12/17 09:28 Dose: 1 applic Ranitidine HCl (Zantac -) 150 mg PO DAILY [facility] Last Admin: 06/12/17 09:18 Dose: 150 mg Thiamine HCl (Vitamin B1 -) 100 mg PO DAILY [facility] Last Admin: 06/12/17 09:18 Dose: 100 mg Tramadol HCl (Ultram -) 100 mg PO Q8H PRN PRN Reason: PAIN Last Admin: 06/12/17 06:24 Dose: 100 mg - Objective Vital Signs: Vital Signs Temperature 98.3 F 06/12/17 10:00 Pulse Rate 93 H 06/12/17 10:00 Respiratory Rate 18 06/12/17 10:00 Blood Pressure 160/80 06/12/17 10:00 O2 Sat by Pulse Oximetry (%) 93 L 06/12/17 09:00 Neck: Yes: Supple Cardiovascular: Yes: Regular Rate and Rhythm, S1, S2. No: Gallop Respiratory: Yes: Diminished Gastrointestinal: Yes: Normal Bowel Sounds, Soft. No: Tenderness Edema: No Problem List - Problems (1) Asthma exacerbation in COPD Code(s): J44.1 - CHRONIC OBSTRUCTIVE PULMONARY DISEASE W (ACUTE) EXACERBATION J45.901 - UNSPECIFIED ASTHMA WITH (ACUTE) EXACERBATION (2) Chronic respiratory failure with hypoxia Code(s): J96.11 - CHRONIC RESPIRATORY FAILURE WITH HYPOXIA (3) A-fib Code(s): I48.91 - UNSPECIFIED ATRIAL FIBRILLATION Qualifiers: Atrial fibrillation type: paroxysmal Qualified Code(s): I48.0 - Paroxysmal atrial fibrillation (4) Acute on chronic respiratory failure with hypoxia and hypercapnia Code(s): J96.21 - ACUTE AND CHRONIC RESPIRATORY FAILURE WITH HYPOXIA J96.22 - ACUTE AND CHRONIC RESPIRATORY FAILURE WITH HYPERCAPNIA (5) COPD exacerbation Code(s): J44.1 - CHRONIC OBSTRUCTIVE PULMONARY DISEASE W (ACUTE) EXACERBATION (6) Chest pain Code(s): R07.9 - CHEST PAIN, UNSPECIFIED Qualifiers: Chest pain type: pleurodynia Qualified Code(s): R07.81 - Pleurodynia (7) Hypothyroid Code(s): E03.9 - HYPOTHYROIDISM, UNSPECIFIED Qualifiers: Hypothyroidism type: unspecified Qualified Code(s): E03.9 - Hypothyroidism, unspecified (8) Recurrent Clostridium difficile diarrhea Code(s): A04.7 - ENTEROCOLITIS DUE TO CLOSTRIDIUM DIFFICILE (9) Tracheostomy dependence Code(s): Z93.0 - TRACHEOSTOMY STATUS Assessment/Plan 1. Acute COPD Exacerbation 2. Chronic Hypoxic Respiratory Failure s/p tracheostomy 3. Paroxysmal Atrial Fibrillation/atrial tachycardia not on anticoagulation due to falls risks 4. Atypical chest pain referable to #1 5. HTN 6. History of refractory C. Difficile colitis 7. Hypothyroidism PLAN: 1. Continue IV steroids with GI protection, inhaled bronchodilators, O2 via mask and DVT prophylaxis 2. Continue ASA 81 qd and Cardizem CD as tolerated - uptitrate. Consider additional blood pressure med to reduce blood pressure 3. Consider anxiety medication if continues to be anxious which also may elevate her BP Further plans are to follow Bert Ivan MD
--- NOTE | 2017-06-12 14:11 | PN ---
Progress Note, Physician Chief Complaint: SOB History of Present Illness: NAD, in bed, on 100% trach, +cough, still feels SOB positive MRSA left and right Nare, on bactroban ointment - Current Medication List Current Medications: Active Medications Acetaminophen (Tylenol -) 650 mg PO Q4H PRN PRN Reason: FEVER OR PAIN Last Admin: 06/11/17 09:27 Dose: 650 mg Acetylcysteine (Mucomyst 20 Oral / Inh Use Only*) 200 mg NEB QIDR [facility] Last Admin: 06/12/17 11:54 Dose: 200 mg Albuterol Sulfate (Ventolin 0.083% Nebulizer Soln -) 1 amp NEB QIDR [facility] Last Admin: 06/12/17 11:54 Dose: 1 amp Artificial Tears (Artificial Tears) 1 drop OU DAILY [facility] Last Admin: 06/12/17 09:28 Dose: 1 drop Aspirin (Ecotrin -) 81 mg PO DAILY [facility] Last Admin: 06/12/17 09:18 Dose: 81 mg Budesonide (Pulmicort 0.25 Mg Nebulizer -) 1 amp NEB BID [facility] Last Admin: 06/12/17 11:43 Dose: 1 amp Cholestyramine Resin (Questran Light Packet -) 4 gm PO BID [facility] Last Admin: 06/12/17 09:18 Dose: 4 gm Diltiazem HCl (Cardizem Cd -) 240 mg PO DAILY [facility] Last Admin: 06/12/17 09:18 Dose: 240 mg Folic Acid (Folic Acid -) 1 mg PO DAILY [facility] Last Admin: 06/12/17 09:41 Dose: 1 mg Heparin Sodium (Porcine) (Heparin -) 5,000 unit SQ BID [facility] Last Admin: 06/12/17 09:18 Dose: Not Given Lactobacillus Acidophilus (Bacid -) 1 tab PO BID [facility] Last Admin: 06/12/17 09:41 Dose: 1 tab Levothyroxine Sodium (Synthroid -) 50 mcg PO DAILY@0700 [facility] Last Admin: 06/12/17 06:19 Dose: 50 mcg Lorazepam (Ativan -) 0.5 mg PO TID PRN PRN Reason: ANXIETY Last Admin: 06/12/17 11:00 Dose: 0.5 mg Methylprednisolone Sodium Succinate (Solu-Medrol -) 40 mg IVPB Q6H-IV [facility] Last Admin: 08/06/17 08:45 Dose: 40 mg Mirtazapine (Remeron -) 15 mg PO HS [facility] Last Admin: 06/11/17 22:52 Dose: Not Given Mupirocin (Bactroban 2% Ointment -) 1 applic NS BID [facility] Stop: 06/16/17 21:59 Last Admin: 06/12/17 09:28 Dose: 1 applic Ranitidine HCl (Zantac -) 150 mg PO DAILY [facility] Last Admin: 06/12/17 09:18 Dose: 150 mg Thiamine HCl (Vitamin B1 -) 100 mg PO DAILY [facility] Last Admin: 06/12/17 09:18 Dose: 100 mg Tramadol HCl (Ultram -) 100 mg PO Q8H PRN PRN Reason: PAIN Last Admin: 06/12/17 06:24 Dose: 100 mg - Objective Vital Signs: Vital Signs Temperature 98.3 F 06/12/17 10:00 Pulse Rate 93 H 06/12/17 10:00 Respiratory Rate 18 06/12/17 10:00 Blood Pressure 160/80 06/12/17 10:00 O2 Sat by Pulse Oximetry (%) 93 L 06/12/17 09:00 Constitutional: Yes: Well Nourished, No Distress, Calm Cardiovascular: Yes: Regular Rate and Rhythm Respiratory: Yes: Regular, Cough, Other (on trach mask) Gastrointestinal: Yes: Normal Bowel Sounds Musculoskeletal: Yes: WNL Extremities: Yes: WNL Edema: No Peripheral Pulses WNL: Yes Neurological: Yes: Alert, Oriented Psychiatric: Yes: Alert, Oriented Labs: CBC, BMP 06/09/17 05:35 06/09/17 05:35 INR, PTT INR 1.05 (0.82-1.09) 06/08/17 12:30 Problem List - Problems (1) Chronic respiratory failure with hypoxia Code(s): J96.11 - CHRONIC RESPIRATORY FAILURE WITH HYPOXIA (2) COPD (chronic obstructive pulmonary disease) Assessment/Plan: Trach mask, increased to 70%, keep O2 >90% -IV steroids -Neb tx -Mucomyst -suction PRN -started on pulmicort BID Code(s): J44.9 - CHRONIC OBSTRUCTIVE PULMONARY DISEASE, UNSPECIFIED Qualifiers : COPD type: COPD with acute exacerbation Qualified Code(s): J44.1 - Chronic obstructive pulmonary disease with (acute) exacerbation (3) Diarrhea Assessment/Plan: likely due to history of c diff Cdiff negative stool OB,O&P,culture pending add probiotics BID and cholestyramine GI consult Code(s): R19.7 - DIARRHEA, UNSPECIFIED Qualifiers: Diarrhea type: unspecified type Qualified Code(s): R19.7 - Diarrhea , unspecified (4) Tracheostomy dependence Assessment/Plan: -seen by ENT -Tracheostomy changed to #7 to cuffless trach with inner cannula, patient feels her breathing is improved Code(s): Z93.0 - TRACHEOSTOMY STATUS Assessment/Plan -Stool collection for O&P,culture and OB -pulmonary,ID and cardiology consult appreciated -IV steroids -neb tx -Trach mask with humidification -GI consult -pulmicort BID -Probiotic and cholestyramine -Increase FiO2 to 70% to maintain sPO2 >90% -Bactroban BID for MRSA -tracheostomy changed by ENT -repeat CXR unchanged-negative -d/c to rehab once stable
[2017-06-12] MEDS ORDERED: LISINOPRIL 5 MG TABLET (FP) PO ONE (18:20)
[2017-06-12] MEDS: MIRTAZAPINE 15 MG TABLET (FP) PO SCH (21:17)
--- NOTE | 2017-06-12 21:36 | HOSP ---
Subjective - Review of Symptoms Subjective: Paged received from [facility] about altered mental status in pt and for neuro examination/eval. She is being followed by Dr. Lopez, PHOTOGRAMMETRIC SURVEYOR calculation reviewer for Dr. Lopez made aware. Nurse reports pt sitting in bed and describing an episode where she experienced a hallucination of someone coming to her room. Pt states she saw a woman in her room who was speaking to her and asked the patient if she wanted to come with her to leave the hospital. Pt stated she replied no because she needs to get better in the hospital which prompted the woman to leave. She reports this is the first time something like this has happened. Currently pt denies any visual or auditory hallucinations, headache, visual changes, fevers/chills, SOB, dizziness/lightheadedness. Physical Examination Vital Signs: Vital Signs Temperature 98.1 F 06/12/17 16:10 Pulse Rate 93 H 06/12/17 15:08 Respiratory Rate 22 06/12/17 16:10 Blood Pressure 180/80 06/12/17 16:10 O2 Sat by Pulse Oximetry (%) 93 L 06/12/17 17:23 Constitutional: Yes: Well Nourished, No Distress, Calm, Other (Trach intact.) Eyes: Yes: Conjunctiva Clear, EOM Intact, PERRL Neck: Yes: Supple, Trachea Midline Cardiovascular: Yes: Regular Rate and Rhythm. No: JVD, Murmur, Rub Respiratory: Yes: Regular, CTA Bilaterally (Pt received nebulizer treatment shortly before). No: Accessory Muscle Use Neurological: Yes: Alert, Oriented (oriented x3), Other (No focal neurological deficits on exam). No: Aphasia, Facial Droop Psychiatric: Yes: Alert, Oriented, Other (Mood appropriate) Labs: CBC, BMP 06/09/17 05:35 06/09/17 05:35 Hospitalist Encounter Assessment: Pt is a 67yo F being followed by Dr. Lopez who had one episode of auditory and visual hallucination. Currently there is complete resolution. On exam no neurological deficits appreciated. --CT head not indicated at this time due to resolution of symptoms, no residual neurological deficits, and no head trauma --No changes in medication and no h/o dementia or sundowning; doubt medication effect --Blood glucose stable throughout hospital course, and no h/o diabetes; doubt hypo-/hyperglycemic episode as etiology --If episodes continue or mental status deteriorates, will have to r/o TIA/CVA vs hypercapnia (from COPD history and SOB CC this admission) No management needed currently PHOTOGRAMMETRIC SURVEYOR calculation reviewer for Dr. Lopez aware
[2017-06-12] MEDS: NITROGLYCERIN 2% OINTMENT - 1GM PACKET TD PRN (22:44)
[2017-06-13] MEDS ORDERED: PT OWN MED DRAWER 7, Y5N ONE ×4 (02:58→13:21)
[2017-06-13] MEDS: methylPREDNISolone NA SUCC 40 MG/1 ML VIAL IVPB SCH ×3 (03:00→21:47)
[2017-06-13] MEDS: ALBUTEROL SO4 0.083% IH SOL 2.5 MG/3 ML VIAL.NEB. NEB SCH ×4 (06:03→23:13)
[2017-06-13] MEDS: ACETYLCYSTEINE 20% 200MG/ML 4 ML VIAL *FOR ORAL / INH USE ONLY NEB SCH ×4 (06:03→23:12)
[2017-06-13] MEDS: LEVOTHYROXINE NA 50 MCG TABLET (FP) PO SCH (06:15)
--- NOTE | 2017-06-13 07:50 | PN ---
Progress Note, Physician History of Present Illness: HAD SOB THIS AM - Current Medication List Current Medications: Active Medications Acetaminophen (Tylenol -) 650 mg PO Q4H PRN PRN Reason: FEVER OR PAIN Last Admin: 06/11/17 09:27 Dose: 650 mg Acetylcysteine (Mucomyst 20 Oral / Inh Use Only*) 200 mg NEB QIDR [facility] Last Admin: 06/13/17 06:03 Dose: 200 mg Albuterol Sulfate (Ventolin 0.083% Nebulizer Soln -) 1 amp NEB QIDR [facility] Last Admin: 06/13/17 06:03 Dose: 1 amp Artificial Tears (Artificial Tears) 1 drop OU DAILY [facility] Last Admin: 06/12/17 09:28 Dose: 1 drop Aspirin (Ecotrin -) 81 mg PO DAILY [facility] Last Admin: 06/12/17 09:18 Dose: 81 mg Budesonide (Pulmicort 0.25 Mg Nebulizer -) 1 amp NEB BID [facility] Last Admin: 06/12/17 22:05 Dose: 1 amp Cholestyramine Resin (Questran Light Packet -) 4 gm PO BID [facility] Last Admin: 06/12/17 21:17 Dose: Not Given Diltiazem HCl (Cardizem Cd -) 240 mg PO DAILY [facility] Last Admin: 06/12/17 09:18 Dose: 240 mg Folic Acid (Folic Acid -) 1 mg PO DAILY [facility] Last Admin: 06/12/17 09:41 Dose: 1 mg Heparin Sodium (Porcine) (Heparin -) 5,000 unit SQ BID [facility] Last Admin: 06/12/17 21:16 Dose: Not Given Lactobacillus Acidophilus (Bacid -) 1 tab PO BID [facility] Last Admin: 06/12/17 21:16 Dose: 1 tab Levothyroxine Sodium (Synthroid -) 50 mcg PO DAILY@0700 [facility] Last Admin: 06/13/17 06:15 Dose: 50 mcg Lorazepam (Ativan -) 0.5 mg PO TID PRN PRN Reason: ANXIETY Last Admin: 06/12/17 11:00 Dose: 0.5 mg Methylprednisolone Sodium Succinate (Solu-Medrol -) 40 mg IVPB Q6H-IV [facility] Last Admin: 06/13/17 03:00 Dose: 40 mg Mirtazapine (Remeron -) 15 mg PO HS [facility] Last Admin: 06/12/17 21:17 Dose: Not Given Mupirocin (Bactroban 2% Ointment -) 1 applic NS BID [facility] Stop: 06/16/17 21:59 Last Admin: 06/12/17 21:16 Dose: 1 applic Nitroglycerin (Nitro-Bid 2% Paste -) 0.5 inch TD Q6H PRN Last Admin: 06/12/17 22:44 Dose: 0.5 inch Ranitidine HCl (Zantac -) 150 mg PO DAILY [facility] Last Admin: 06/12/17 09:18 Dose: 150 mg Thiamine HCl (Vitamin B1 -) 100 mg PO DAILY [facility] Last Admin: 06/12/17 09:18 Dose: 100 mg Tramadol HCl (Ultram -) 100 mg PO Q8H PRN PRN Reason: PAIN Last Admin: 06/12/17 23:40 Dose: 100 mg - Objective Vital Signs: Vital Signs Temperature 98.5 F 06/13/17 06:21 Pulse Rate 84 06/13/17 03:04 Respiratory Rate 20 06/13/17 06:21 Blood Pressure 136/96 06/13/17 06:21 O2 Sat by Pulse Oximetry (%) 95 06/12/17 21:00 Cardiovascular: Yes: S1, S2 Respiratory: Yes: Rhonchi Gastrointestinal: Yes: Normal Bowel Sounds, Soft Labs: CBC, BMP 06/09/17 05:35 06/09/17 05:35 INR, PTT INR 1.05 (0.82-1.09) 06/08/17 12:30 Problem List - Problems (1) Asthma exacerbation in COPD Code(s): J44.1 - CHRONIC OBSTRUCTIVE PULMONARY DISEASE W (ACUTE) EXACERBATION J45.901 - UNSPECIFIED ASTHMA WITH (ACUTE) EXACERBATION (2) Acute and chronic respiratory failure with hypoxia Code(s): J96.21 - ACUTE AND CHRONIC RESPIRATORY FAILURE WITH HYPOXIA (3) Chest pain Code(s): R07.9 - CHEST PAIN, UNSPECIFIED Qualifiers: Chest pain type: pleurodynia Qualified Code(s): R07.81 - Pleurodynia (4) Hypothyroid Code(s): E03.9 - HYPOTHYROIDISM, UNSPECIFIED Qualifiers: Hypothyroidism type: unspecified Qualified Code(s): E03.9 - Hypothyroidism, unspecified Assessment/Plan - Problems (1) Chronic respiratory failure with hypoxia Code(s): J96.11 - CHRONIC RESPIRATORY FAILURE WITH HYPOXIA (2) COPD (chronic obstructive pulmonary disease) Assessment/Plan: Trach mask, increased to 70%, keep O2 >90% -IV steroids--TAPER -Neb tx -Mucomyst -suction PRN -started on pulmicort BID Code(s): J44.9 - CHRONIC OBSTRUCTIVE PULMONARY DISEASE, UNSPECIFIED Qualifiers : COPD type: COPD with acute exacerbation Qualified Code(s): J44.1 - Chronic obstructive pulmonary disease with (acute) exacerbation (3) Diarrhea Assessment/Plan: likely due to history of c diff Cdiff negative stool OB,O&P,culture pending add probiotics BID and cholestyramine GI consult Code(s): R19.7 - DIARRHEA, UNSPECIFIED Qualifiers: Diarrhea type: unspecified type Qualified Code(s): R19.7 - Diarrhea , unspecified (4) Tracheostomy dependence Assessment/Plan: - ENT F/U -Tracheostomy changed to #7 to cuffless trach with inner cannula, patient feels her breathing is improved Code(s): Z93.0 - TRACHEOSTOMY STATUS Assessment/Plan -Stool collection for O&P,culture and OB -pulmonary,ID and cardiology consult appreciated -IV steroids -neb tx -Trach mask with humidification -GI consult -pulmicort BID -Probiotic and cholestyramine -Increase FiO2 to 70% to maintain sPO2 >90% -Bactroban BID for MRSA -tracheostomy changed by ENT -repeat CXR unchanged-negative -d/c to rehab once stable
[2017-06-13 08:44] LABS: MCH 28.4 pg (25.7-33.7); MCHC 31.5 g/dl (32.0-36.0); MEAN CELL VOLUME 90.2 fl (80-96); MEAN PLT VOLUME 8.3 fl (7.5-11.1); NEUTROPHILS 93.8 % (42.8-82.8); PLATELET COUNT 347 K/MM3 (134-434); RDW 13.8 % (11.6-15.6); WHITE BLOOD COUNT 15.1 K/mm3 (4.0-10.0)
[2017-06-13] MEDS: ARTIFICIAL TEARS (POLYVINYL ALCOHOL 1.4%) OPTH DROPS OU SCH (09:10)
[2017-06-13] MEDS: NITROGLYCERIN 2% OINTMENT - 1GM PACKET TD PRN (09:10)
[2017-06-13] MEDS: RANITIDINE HCL 150 MG TABLET (FP) PO SCH (09:12)
[2017-06-13] MEDS: THIAMINE HCL 100 MG TABLET (FP) PO SCH (09:12)
[2017-06-13] MEDS: LACTOBACILLUS ACIDOPHILUS 1 EACH TAB (FP) PO SCH ×2 (09:12→21:46)
[2017-06-13] MEDS: ASPIRIN COATED 81 MG TABLET.EC PO SCH (09:12)
[2017-06-13] MEDS: CHOLESTYRAMINE/ASPARTAME 4 GM PACKET PO SCH ×2 (09:12→21:46)
[2017-06-13 09:13] LABS: ALBUMIN 3.3 g/dl (3.4-5.0); ANION GAP 4 (8-16); CALCIUM 8.7 mg/dL (8.5-10.1); CO2 44 mmol/L (21-32); GLUCOSE,RANDOM 145 mg/dL (74-106)
[2017-06-13] MEDS: MUPIROCIN 2% TOPICAL OINTMENT 22 GM TUBE NS SCH ×2 (09:13→21:46)
[2017-06-13] MEDS: FOLIC ACID 1 MG TABLET (FP) PO SCH (09:13)
[2017-06-13] MEDS: HEPARIN NA (PORCINE) 5,000 UNITS/ML 1ML VIAL SQ SCH ×2 (09:13→21:46)
[2017-06-13 09:27] LABS: ALK PHOS 67 U/L (45-117); BILIRUBIN,TOTAL 0.5 mg/dL (0.2-1.0); CREATININE 0.5 mg/dL (0.55-1.02); SGOT/AST 20 U/L (15-37); SGPT/ALT 42 U/L (12-78); TOT PROT 6.2 g/dl (6.4-8.2)
[2017-06-13] MEDS: VALSARTAN 160 MG TABLET (UD) PO SCH (11:35)
--- NOTE | 2017-06-13 13:20 | PN ---
Progress Note, Physician History of Present Illness: pulmonary alert,dyspneic. - Current Medication List Current Medications: Active Medications Acetaminophen (Tylenol -) 650 mg PO Q4H PRN PRN Reason: FEVER OR PAIN Last Admin: 06/11/17 09:27 Dose: 650 mg Acetylcysteine (Mucomyst 20 Oral / Inh Use Only*) 200 mg NEB QIDR [facility] Last Admin: 06/13/17 06:03 Dose: 200 mg Albuterol Sulfate (Ventolin 0.083% Nebulizer Soln -) 1 amp NEB QIDR [facility] Last Admin: 06/13/17 06:03 Dose: 1 amp Artificial Tears (Artificial Tears) 1 drop OU DAILY [facility] Last Admin: 06/13/17 09:10 Dose: 1 drop Aspirin (Ecotrin -) 81 mg PO DAILY [facility] Last Admin: 06/13/17 09:12 Dose: 81 mg Budesonide (Pulmicort 0.25 Mg Nebulizer -) 1 amp NEB BID [facility] Last Admin: 06/12/17 22:05 Dose: 1 amp Cholestyramine Resin (Questran Light Packet -) 4 gm PO BID [facility] Last Admin: 06/13/17 09:12 Dose: 4 gm Diltiazem HCl (Cardizem Cd -) 240 mg PO DAILY [facility] Last Admin: 06/13/17 09:12 Dose: 240 mg Folic Acid (Folic Acid -) 1 mg PO DAILY [facility] Last Admin: 06/13/17 09:13 Dose: 1 mg Heparin Sodium (Porcine) (Heparin -) 5,000 unit SQ BID [facility] Last Admin: 06/13/17 09:13 Dose: Not Given Lactobacillus Acidophilus (Bacid -) 1 tab PO BID [facility] Last Admin: 06/13/17 09:12 Dose: 1 tab Levothyroxine Sodium (Synthroid -) 50 mcg PO DAILY@0700 [facility] Last Admin: 06/13/17 06:15 Dose: 50 mcg Lorazepam (Ativan -) 0.5 mg PO TID PRN PRN Reason: ANXIETY Methylprednisolone Sodium Succinate (Solu-Medrol -) 40 mg IVPB BID [facility] Last Admin: 06/13/17 09:13 Dose: 40 mg Mirtazapine (Remeron -) 15 mg PO HS [facility] Last Admin: 06/12/17 21:17 Dose: Not Given Mupirocin (Bactroban 2% Ointment -) 1 applic NS BID [facility] Stop: 06/16/17 21:59 Last Admin: 06/13/17 09:13 Dose: 1 applic Nitroglycerin (Nitro-Bid 2% Paste -) 0.5 inch TD Q6H PRN Last Admin: 06/13/17 09:10 Dose: 0.5 inch Ranitidine HCl (Zantac -) 150 mg PO DAILY [facility] Last Admin: 06/13/17 09:12 Dose: 150 mg Thiamine HCl (Vitamin B1 -) 100 mg PO DAILY [facility] Last Admin: 06/13/17 09:12 Dose: 100 mg Tramadol HCl (Ultram -) 100 mg PO Q8H PRN PRN Reason: PAIN Last Admin: 06/12/17 23:40 Dose: 100 mg Valsartan (Diovan -) 160 mg PO DAILY [facility] Last Admin: 06/13/17 11:35 Dose: 160 mg - Objective Vital Signs: Vital Signs Temperature 98.5 F 06/13/17 06:21 Pulse Rate 94 H 06/13/17 11:36 Respiratory Rate 24 06/13/17 11:36 Blood Pressure 177/99 06/13/17 11:36 O2 Sat by Pulse Oximetry (%) 96 06/13/17 09:55 Constitutional: Yes: Anxious, Thin, Other (mildly dyspneic) Eyes: Yes: WNL HENT: Yes: WNL Neck: Yes: Supple (trach) Cardiovascular: Yes: Pulse Irregular, S1, S2 Respiratory: Yes: Rales (bilateral crackles 1/3 up) Extremities: Yes: WNL Edema: No Labs: CBC, BMP 06/13/17 08:15 06/13/17 08:15 INR, PTT INR 1.05 (0.82-1.09) 06/08/17 12:30 Assessment/Plan Problem List - Problems (1) COPD exacerbation Code(s): J44.1 - CHRONIC OBSTRUCTIVE PULMONARY DISEASE W (ACUTE) EXACERBATION (2) Chronic respiratory failure with hypoxia Code(s): J96.11 - CHRONIC RESPIRATORY FAILURE WITH HYPOXIA (3) A-fib Code(s): I48.91 - UNSPECIFIED ATRIAL FIBRILLATION (4) Chest pain Code(s): R07.9 - CHEST PAIN, UNSPECIFIED Assessment/Plan Acute COPD Exacerbation Chronic Hypoxic Respiratory Failure s/p trach Atrial Fibrillation HTN - IV medrol same dose - inhaled bronchodilators - O2 to keep SpO2 >90% - rate controlled - DVT prophylaxis - pain control - mucomyst DR RAGLAND
[2017-06-13] MEDS: BUDESONIDE 0.25 MG/2ML INH SUSP VIAL NEB SCH ×2 (13:25→21:40)
[2017-06-13] MEDS: LORazepam 0.5 MG TABLET PO PRN ×2 (14:36→21:48)
[2017-06-13] MEDS: MIRTAZAPINE 15 MG TABLET (FP) PO SCH ×2 (21:45→22:01)
[2017-06-14] MEDS: ACETYLCYSTEINE 20% 200MG/ML 4 ML VIAL *FOR ORAL / INH USE ONLY NEB SCH ×4 (05:52→23:08)
[2017-06-14] MEDS: ALBUTEROL SO4 0.083% IH SOL 2.5 MG/3 ML VIAL.NEB. NEB SCH ×4 (05:52→23:08)
[2017-06-14] MEDS: LEVOTHYROXINE NA 50 MCG TABLET (FP) PO SCH (06:13)
--- NOTE | 2017-06-14 08:10 | DS ---
Physical Examination Vital Signs: Vital Signs Temperature 98.1 F 06/14/17 07:06 Pulse Rate 92 H 06/14/17 07:06 Respiratory Rate 22 06/14/17 07:06 Blood Pressure 168/88 06/14/17 07:06 O2 Sat by Pulse Oximetry (%) 95 06/14/17 05:51 Findings/Remarks: comfortable--no complaints Cardiovascular: Yes: S1, S2 Respiratory: Yes: CTA Bilaterally, Other (on oxygen via trach) Labs: CBC, BMP 06/13/17 08:15 06/13/17 08:15 Discharge Summary Reason For Visit: HYPOXIA\BRONCHITIS Current Active Problems Asthma exacerbation in COPD (Acute) Chronic respiratory failure with hypoxia (Acute) Hypoxia (Acute) Hospital Course: History of Present Illness: 65 year old female, with a significant past medical history of AFib, COPD(s/p trach), hypertension, and anemia, who presents to the ED BIBA from [facility] for evaluation of shortness of breath. Per EMS, patient O2 Sats were dropping into the low 90s. At the time patient had her trach uncapped. She denies any fever, chills, diaphoresis, or palpitations. c/o intermittent chest pain initially right sided then on left - Past Medical History Cardiovascular: Yes: AFIB, HTN Pulmonary: Yes: COPD, Previously Intubated, Other (RESPIRATORY FAILURE) ...: No Heme/Onc: Yes: Anemia Infectious Disease: Yes: C-Diff Endocrine: Yes: Hypothyroidism - Past Surgical History Past Surgical History: Yes: Appendectomy Problems (1) Chronic respiratory failure with hypoxia Code(s): J96.11 - CHRONIC RESPIRATORY FAILURE WITH HYPOXIA (2) COPD (chronic obstructive pulmonary disease) Assessment/Plan: Trach mask, increased to 70%, keep O2 >90% -IV steroids--TAPER--po -Neb tx -Mucomyst -suction PRN -started on pulmicort BID Code(s): J44.9 - CHRONIC OBSTRUCTIVE PULMONARY DISEASE, UNSPECIFIED Qualifiers : COPD type: COPD with acute exacerbation Qualified Code(s): J44.1 - Chronic obstructive pulmonary disease with (acute) exacerbation (3) Diarrhea Assessment/Plan: likely due to history of c diff Cdiff negative stool OB,O&P,culture pending add probiotics BID and cholestyramine GI consult Code(s): R19.7 - DIARRHEA, UNSPECIFIED Qualifiers: Diarrhea type: unspecified type Qualified Code(s): R19.7 - Diarrhea , unspecified (4) Tracheostomy dependence Assessment/Plan: - ENT F/U -Tracheostomy changed to #7 to cuffless trach with inner cannula, patient feels her breathing is improved Code(s): Z93.0 - TRACHEOSTOMY STATUS Assessment/Plan -Stool collection for O&P,culture and OB -pulmonary,ID and cardiology consult appreciated -IV steroids--to po -neb tx -Trach mask with humidification -GI consult -pulmicort BID -Probiotic and cholestyramine -Increase FiO2 to 70% to maintain sPO2 >90% -Bactroban BID for MRSA -tracheostomy changed by ENT -repeat CXR unchanged-negative -d/c to rehab Condition: Improved - Instructions Diet, Activity, Other Instructions: taper prednisone Referrals: Cindy Cavanaugh MD [Primary Care Provider] - - Home Medications Comprehensive Discharge Medication List: Ambulatory Orders Albuterol 2.5/Ipratropium 0.5 [Duoneb -] 1 neb NEB TID 02/01/16 Aspirin [Ecotrin] 81 mg PO DAILY 02/01/16 Benzocaine/Menthol [Cepacol Sore Throat Lozenge] 1 each MM PRN PRN 02/01/16 Chlorhexidine Gluconate [Hibiclens For Decolonization -] 1 ml PO BID 02/01/16 Diltiazem Cd [Cardizem Cd -] 180 mg PO DAILY 02/01/16 Folic Acid 1 mg PO DAILY 02/01/16 Lactobacillus Acidophilus [Bacid -] 1 each PO BID 02/01/16 Levothyroxine [Synthroid -] 50 mcg PO DAILY 02/01/16 Lorazepam 0.5 mg PO TID PRN 02/01/16 Melatonin 3 mg PO HS 02/01/16 Mirtazapine 15 mg PO HS 02/01/16 Peg 400/Hypromellose/Glycerin [Artificial Tears Drops] 1 drop OU DAILY 02/01/16 Thiamine HCl [Vitamin B1 -] 100 mg PO DAILY 02/01/16 Vitamin B Complex Vit C No.3 [B Complex with Vitamin C] 1 each PO DAILY Ranitidine [Zantac -] 150 mg PO DAILY tablet 02/09/16 Acetylcysteine Po/INH 20% [Mucomyst 20 Oral / INH Use Only*] 200 mg NEB QIDR vial 06/14/17 Budesonide [Pulmicort 0.25 mg Nebulizer -] 1 amp NEB BID amp 06/14/17 Cholestyramine/Aspartame [Questran Light Packet -] 4 gm PO BID packet 06/14/17 Prednisone [Deltasone -] 60 mg PO DAILY tablet 06/14/17 Tramadol HCl [Ultram -] 100 mg PO Q8H PRN #0 tablet MDD 3 06/14/17
[2017-06-14] MEDS: VALSARTAN 160 MG TABLET (UD) PO SCH (09:43)
[2017-06-14] MEDS: ASPIRIN COATED 81 MG TABLET.EC PO SCH (09:43)
[2017-06-14] MEDS: predniSONE 20 MG TABLET (UD) PO SCH (09:43)
[2017-06-14] MEDS: THIAMINE HCL 100 MG TABLET (FP) PO SCH (09:43)
[2017-06-14] MEDS: CHOLESTYRAMINE/ASPARTAME 4 GM PACKET PO SCH ×2 (09:43→21:35)
[2017-06-14] MEDS: FOLIC ACID 1 MG TABLET (FP) PO SCH (09:43)
[2017-06-14] MEDS: RANITIDINE HCL 150 MG TABLET (FP) PO SCH (09:43)
[2017-06-14] MEDS: LACTOBACILLUS ACIDOPHILUS 1 EACH TAB (FP) PO SCH ×2 (09:43→21:34)
[2017-06-14] MEDS: ARTIFICIAL TEARS (POLYVINYL ALCOHOL 1.4%) OPTH DROPS OU SCH (09:45)
[2017-06-14] MEDS: HEPARIN NA (PORCINE) 5,000 UNITS/ML 1ML VIAL SQ SCH ×2 (09:46→21:36)
[2017-06-14] MEDS ORDERED: PT OWN MED DRAWER 7, Y5N ONE (09:50)
[2017-06-14] MEDS: MUPIROCIN 2% TOPICAL OINTMENT 22 GM TUBE NS SCH ×2 (09:51→21:39)
[2017-06-14] MEDS: BUDESONIDE 0.25 MG/2ML INH SUSP VIAL NEB SCH ×2 (10:35→22:15)
--- NOTE | 2017-06-14 11:50 | PN ---
Progress Note, Physician Chief Complaint: Events noted Dyspnea improving Breathing with trache collar History of Present Illness: Patient was seen and examined. Awake and alert. Chart was reviewed Denies chest discomfort No change - Current Medication List Current Medications: Active Medications Acetaminophen (Tylenol -) 650 mg PO Q4H PRN PRN Reason: FEVER OR PAIN Last Admin: 06/11/17 09:27 Dose: 650 mg Acetylcysteine (Mucomyst 20 Oral / Inh Use Only*) 200 mg NEB QIDR [facility] Last Admin: 06/14/17 10:35 Dose: 200 mg Albuterol Sulfate (Ventolin 0.083% Nebulizer Soln -) 1 amp NEB QIDR [facility] Last Admin: 06/14/17 10:35 Dose: 1 amp Artificial Tears (Artificial Tears) 1 drop OU DAILY [facility] Last Admin: 06/14/17 09:45 Dose: 1 drop Aspirin (Ecotrin -) 81 mg PO DAILY [facility] Last Admin: 06/14/17 09:43 Dose: 81 mg Budesonide (Pulmicort 0.25 Mg Nebulizer -) 1 amp NEB BID [facility] Last Admin: 06/14/17 10:35 Dose: 1 amp Cholestyramine Resin (Questran Light Packet -) 4 gm PO BID [facility] Last Admin: 06/14/17 09:43 Dose: 4 gm Diltiazem HCl (Cardizem Cd -) 240 mg PO DAILY [facility] Last Admin: 06/14/17 09:44 Dose: 240 mg Folic Acid (Folic Acid -) 1 mg PO DAILY [facility] Last Admin: 06/14/17 09:43 Dose: 1 mg Heparin Sodium (Porcine) (Heparin -) 5,000 unit SQ BID [facility] Last Admin: 06/14/17 09:46 Dose: Not Given Lactobacillus Acidophilus (Bacid -) 1 tab PO BID [facility] Last Admin: 06/14/17 09:43 Dose: 1 tab Levothyroxine Sodium (Synthroid -) 50 mcg PO DAILY@0700 [facility] Last Admin: 06/14/17 06:13 Dose: 50 mcg Lorazepam (Ativan -) 0.5 mg PO TID PRN PRN Reason: ANXIETY Last Admin: 06/13/17 14:36 Dose: 0.5 mg Mirtazapine (Remeron -) 15 mg PO HS [facility] Last Admin: 06/13/17 22:01 Dose: Not Given Mupirocin (Bactroban 2% Ointment -) 1 applic NS BID [facility] Stop: 06/16/17 21:59 Last Admin: 06/14/17 09:51 Dose: 1 applic Nitroglycerin (Nitro-Bid 2% Paste -) 0.5 inch TD Q6H PRN Last Admin: 06/13/17 09:10 Dose: 0.5 inch Prednisone (Deltasone -) 60 mg PO DAILY [facility] Last Admin: 06/14/17 09:43 Dose: 60 mg Ranitidine HCl (Zantac -) 150 mg PO DAILY [facility] Last Admin: 06/14/17 09:43 Dose: 150 mg Thiamine HCl (Vitamin B1 -) 100 mg PO DAILY [facility] Last Admin: 06/14/17 09:43 Dose: 100 mg Tramadol HCl (Ultram -) 100 mg PO Q8H PRN PRN Reason: PAIN Last Admin: 06/12/17 23:40 Dose: 100 mg Valsartan (Diovan -) 160 mg PO DAILY [facility] Last Admin: 06/14/17 09:43 Dose: 160 mg - Objective Vital Signs: Vital Signs Temperature 96.6 F L 06/14/17 09:03 Pulse Rate 92 H 06/14/17 10:35 Respiratory Rate 22 06/14/17 09:03 Blood Pressure 157/95 06/14/17 09:03 O2 Sat by Pulse Oximetry (%) 97 06/14/17 10:35 Neck: Yes: Supple Cardiovascular: Yes: Regular Rate and Rhythm, S1, S2 Respiratory: Yes: Diminished Gastrointestinal: Yes: Normal Bowel Sounds, Soft. No: Tenderness Edema: No Labs: CBC, BMP 06/13/17 08:15 06/13/17 08:15 Problem List - Problems (1) Asthma exacerbation in COPD Code(s): J44.1 - CHRONIC OBSTRUCTIVE PULMONARY DISEASE W (ACUTE) EXACERBATION J45.901 - UNSPECIFIED ASTHMA WITH (ACUTE) EXACERBATION (2) Chronic respiratory failure with hypoxia Code(s): J96.11 - CHRONIC RESPIRATORY FAILURE WITH HYPOXIA (3) A-fib Code(s): I48.91 - UNSPECIFIED ATRIAL FIBRILLATION Qualifiers: Atrial fibrillation type: paroxysmal Qualified Code(s): I48.0 - Paroxysmal atrial fibrillation (4) Acute on chronic respiratory failure with hypoxia and hypercapnia Code(s): J96.21 - ACUTE AND CHRONIC RESPIRATORY FAILURE WITH HYPOXIA J96.22 - ACUTE AND CHRONIC RESPIRATORY FAILURE WITH HYPERCAPNIA (5) COPD exacerbation Code(s): J44.1 - CHRONIC OBSTRUCTIVE PULMONARY DISEASE W (ACUTE) EXACERBATION (6) Chest pain Code(s): R07.9 - CHEST PAIN, UNSPECIFIED Qualifiers: Chest pain type: pleurodynia Qualified Code(s): R07.81 - Pleurodynia (7) Hypothyroid Code(s): E03.9 - HYPOTHYROIDISM, UNSPECIFIED Qualifiers: Hypothyroidism type: unspecified Qualified Code(s): E03.9 - Hypothyroidism, unspecified (8) Recurrent Clostridium difficile diarrhea Code(s): A04.7 - ENTEROCOLITIS DUE TO CLOSTRIDIUM DIFFICILE (9) Tracheostomy dependence Code(s): Z93.0 - TRACHEOSTOMY STATUS Assessment/Plan 1. Acute COPD Exacerbation 2. Chronic Hypoxic Respiratory Failure s/p tracheostomy 3. Paroxysmal Atrial Fibrillation/atrial tachycardia not on anticoagulation due to falls risks 4. Atypical chest pain referable to #1 5. HTN - not at goal 6. History of refractory C. Difficile Colitis 7. Hypothyroidism PLAN: 1. Continue steroids with GI protection, inhaled bronchodilators, O2 via mask and DVT prophylaxis 2. Continue ASA 81 qd and Cardizem CD 240 mg once a day as tolerated. Continue Valsartan 160 mg once a day - may up-titrate as needed 3. Consider anxiety medication if continues to be anxious which also may elevate her BP Further plans are to follow. Possible discharge planning Bert Ivan MD
--- NOTE | 2017-06-14 15:39 | PN ---
Progress Note, Physician History of Present Illness: pulmonary alert,comfortable,nad. - Current Medication List Current Medications: Active Medications Acetaminophen (Tylenol -) 650 mg PO Q4H PRN PRN Reason: FEVER OR PAIN Last Admin: 06/11/17 09:27 Dose: 650 mg Acetylcysteine (Mucomyst 20 Oral / Inh Use Only*) 200 mg NEB QIDR [facility] Last Admin: 06/14/17 10:35 Dose: 200 mg Albuterol Sulfate (Ventolin 0.083% Nebulizer Soln -) 1 amp NEB QIDR [facility] Last Admin: 06/14/17 10:35 Dose: 1 amp Artificial Tears (Artificial Tears) 1 drop OU DAILY [facility] Last Admin: 06/14/17 09:45 Dose: 1 drop Aspirin (Ecotrin -) 81 mg PO DAILY [facility] Last Admin: 06/14/17 09:43 Dose: 81 mg Budesonide (Pulmicort 0.25 Mg Nebulizer -) 1 amp NEB BID [facility] Last Admin: 06/14/17 10:35 Dose: 1 amp Cholestyramine Resin (Questran Light Packet -) 4 gm PO BID [facility] Last Admin: 06/14/17 09:43 Dose: 4 gm Diltiazem HCl (Cardizem Cd -) 240 mg PO DAILY [facility] Last Admin: 06/14/17 09:44 Dose: 240 mg Folic Acid (Folic Acid -) 1 mg PO DAILY [facility] Last Admin: 06/14/17 09:43 Dose: 1 mg Heparin Sodium (Porcine) (Heparin -) 5,000 unit SQ BID [facility] Last Admin: 06/14/17 09:46 Dose: Not Given Lactobacillus Acidophilus (Bacid -) 1 tab PO BID [facility] Last Admin: 06/14/17 09:43 Dose: 1 tab Levothyroxine Sodium (Synthroid -) 50 mcg PO DAILY@0700 [facility] Last Admin: 06/14/17 06:13 Dose: 50 mcg Lorazepam (Ativan -) 0.5 mg PO TID PRN PRN Reason: ANXIETY Last Admin: 06/13/17 14:36 Dose: 0.5 mg Mirtazapine (Remeron -) 15 mg PO HS [facility] Last Admin: 06/13/17 22:01 Dose: Not Given Mupirocin (Bactroban 2% Ointment -) 1 applic NS BID [facility] Stop: 06/16/17 21:59 Last Admin: 06/14/17 09:51 Dose: 1 applic Nitroglycerin (Nitro-Bid 2% Paste -) 0.5 inch TD Q6H PRN Last Admin: 06/13/17 09:10 Dose: 0.5 inch Prednisone (Deltasone -) 60 mg PO DAILY [facility] Last Admin: 06/14/17 09:43 Dose: 60 mg Ranitidine HCl (Zantac -) 150 mg PO DAILY [facility] Last Admin: 06/14/17 09:43 Dose: 150 mg Thiamine HCl (Vitamin B1 -) 100 mg PO DAILY [facility] Last Admin: 06/14/17 09:43 Dose: 100 mg Tramadol HCl (Ultram -) 100 mg PO Q8H PRN PRN Reason: PAIN Last Admin: 06/12/17 23:40 Dose: 100 mg Valsartan (Diovan -) 160 mg PO DAILY [facility] Last Admin: 06/14/17 09:43 Dose: 160 mg - Objective Vital Signs: Vital Signs Temperature 98.6 F 06/14/17 14:37 Pulse Rate 79 06/14/17 14:37 Respiratory Rate 16 06/14/17 14:37 Blood Pressure 116/80 06/14/17 14:37 O2 Sat by Pulse Oximetry (%) 96 06/14/17 12:20 Constitutional: Yes: Calm, Thin Eyes: Yes: WNL HENT: Yes: WNL Neck: Yes: Supple (trach) Cardiovascular: Yes: Pulse Irregular, S1, S2 Respiratory: Yes: Diminished Gastrointestinal: Yes: Normal Bowel Sounds, Soft Extremities: Yes: WNL Edema: No Labs: Assessment/Plan Problem List - Problems (1) COPD exacerbation Code(s): J44.1 - CHRONIC OBSTRUCTIVE PULMONARY DISEASE W (ACUTE) EXACERBATION (2) Chronic respiratory failure with hypoxia Code(s): J96.11 - CHRONIC RESPIRATORY FAILURE WITH HYPOXIA (3) A-fib Code(s): I48.91 - UNSPECIFIED ATRIAL FIBRILLATION (4) Chest pain Code(s): R07.9 - CHEST PAIN, UNSPECIFIED Assessment/Plan Acute COPD Exacerbation Chronic Hypoxic Respiratory Failure s/p trach Atrial Fibrillation HTN - prednisone - inhaled bronchodilators - O2 to keep SpO2 >90% - rate controlled - DVT prophylaxis - pain control - mucomyst DR RAGLAND
[2017-06-14] MEDS: MIRTAZAPINE 15 MG TABLET (FP) PO SCH (21:34)
[2017-06-14] MEDS: LORazepam 0.5 MG TABLET PO PRN (21:34)
[2017-06-14] MEDS: traMADol HCL 50 MG TABLET PO PRN (21:39)
[2017-06-15] MEDS: ACETAMINOPHEN 325 MG TABLET (FP) PO PRN ×2 (02:15→11:10)
[2017-06-15] MEDS: LEVOTHYROXINE NA 50 MCG TABLET (FP) PO SCH (06:26)
[2017-06-15] MEDS: traMADol HCL 50 MG TABLET PO PRN ×2 (06:26→15:19)
[2017-06-15] MEDS: ALBUTEROL SO4 0.083% IH SOL 2.5 MG/3 ML VIAL.NEB. NEB SCH (06:53)
[2017-06-15] MEDS: ACETYLCYSTEINE 20% 200MG/ML 4 ML VIAL *FOR ORAL / INH USE ONLY NEB SCH ×3 (06:53→18:40)
--- NOTE | 2017-06-15 08:59 | DS ---
Physical Examination Vital Signs: Vital Signs Temperature 97.7 F 06/15/17 06:00 Pulse Rate 97 H 06/15/17 06:00 Respiratory Rate 16 06/15/17 06:00 Blood Pressure 158/76 06/15/17 06:00 O2 Sat by Pulse Oximetry (%) 96 06/14/17 12:20 Findings/Remarks: comfortable sitting up in chair Cardiovascular: Yes: S1, S2 Respiratory: Yes: Other (trach) Gastrointestinal: Yes: Normal Bowel Sounds, Soft Labs: CBC, BMP 06/13/17 08:15 06/13/17 08:15 Discharge Summary Reason For Visit: HYPOXIA\BRONCHITIS Current Active Problems Asthma exacerbation in COPD (Acute) Chronic respiratory failure with hypoxia (Acute) Hypoxia (Acute) Hospital Course: History of Present Illness: 65 year old female, with a significant past medical history of AFib, COPD(s/p trach), hypertension, and anemia, who presents to the ED BIBA from [facility] for evaluation of shortness of breath. Per EMS, patient O2 Sats were dropping into the low 90s. At the time patient had her trach uncapped. She denies any fever, chills, diaphoresis, or palpitations. c/o intermittent chest pain initially right sided then on left - Past Medical History Cardiovascular: Yes: AFIB, HTN Pulmonary: Yes: COPD, Previously Intubated, Other (RESPIRATORY FAILURE) ...: No Heme/Onc: Yes: Anemia Infectious Disease: Yes: C-Diff Endocrine: Yes: Hypothyroidism - Past Surgical History Past Surgical History: Yes: Appendectomy Problems (1) Chronic respiratory failure with hypoxia Code(s): J96.11 - CHRONIC RESPIRATORY FAILURE WITH HYPOXIA (2) COPD (chronic obstructive pulmonary disease) Assessment/Plan: Trach mask, increased to 70%, keep O2 >90% -IV steroids--TAPER--po -Neb tx -Mucomyst -suction PRN -started on pulmicort BID Code(s): J44.9 - CHRONIC OBSTRUCTIVE PULMONARY DISEASE, UNSPECIFIED Qualifiers : COPD type: COPD with acute exacerbation Qualified Code(s): J44.1 - Chronic obstructive pulmonary disease with (acute) exacerbation (3) Diarrhea Assessment/Plan: likely due to history of c diff Cdiff negative stool OB,O&P,culture pending add probiotics BID and cholestyramine GI consult Code(s): R19.7 - DIARRHEA, UNSPECIFIED Qualifiers: Diarrhea type: unspecified type Qualified Code(s): R19.7 - Diarrhea , unspecified (4) Tracheostomy dependence Assessment/Plan: - ENT F/U -Tracheostomy changed to #7 to cuffless trach with inner cannula, patient feels her breathing is improved Code(s): Z93.0 - TRACHEOSTOMY STATUS Assessment/Plan -Stool collection for O&P,culture and OB -pulmonary,ID and cardiology consult appreciated -IV steroids--to po -neb tx -Trach mask with humidification -GI consult -pulmicort BID -Probiotic and cholestyramine -Increase FiO2 to 70% to maintain sPO2 >90% -Bactroban BID for MRSA -tracheostomy changed by ENT -repeat CXR unchanged-negative -d/c to rehab Condition: Improved - Instructions Diet, Activity, Other Instructions: taper prednisone Referrals: Cindy Cavanaugh MD [Primary Care Provider] - - Home Medications Comprehensive Discharge Medication List: Ambulatory Orders Albuterol 2.5/Ipratropium 0.5 [Duoneb -] 1 neb NEB TID 02/01/16 Aspirin [Ecotrin] 81 mg PO DAILY 02/01/16 Benzocaine/Menthol [Cepacol Sore Throat Lozenge] 1 each MM PRN PRN 02/01/16 Chlorhexidine Gluconate [Hibiclens For Decolonization -] 1 ml PO BID 02/01/16 Diltiazem Cd [Cardizem Cd -] 180 mg PO DAILY 02/01/16 Folic Acid 1 mg PO DAILY 02/01/16 Lactobacillus Acidophilus [Bacid -] 1 each PO BID 02/01/16 Levothyroxine [Synthroid -] 50 mcg PO DAILY 02/01/16 Lorazepam 0.5 mg PO TID PRN 02/01/16 Melatonin 3 mg PO HS 02/01/16 Mirtazapine 15 mg PO HS 02/01/16 Peg 400/Hypromellose/Glycerin [Artificial Tears Drops] 1 drop OU DAILY 02/01/16 Thiamine HCl [Vitamin B1 -] 100 mg PO DAILY 02/01/16 Vitamin B Complex Vit C No.3 [B Complex with Vitamin C] 1 each PO DAILY Ranitidine [Zantac -] 150 mg PO DAILY tablet 02/09/16 Acetylcysteine Po/INH 20% [Mucomyst 20 Oral / INH Use Only*] 200 mg NEB QIDR vial 06/14/17 Budesonide [Pulmicort 0.25 mg Nebulizer -] 1 amp NEB BID amp 06/14/17 Cholestyramine/Aspartame [Questran Light Packet -] 4 gm PO BID packet 06/14/17 Prednisone [Deltasone -] 60 mg PO DAILY tablet 06/14/17 Tramadol HCl [Ultram -] 100 mg PO Q8H PRN #0 tablet MDD 3 06/14/17
[2017-06-15] MEDS ORDERED: PT OWN MED DRAWER 7, Y5N ONE ×2 (09:09→21:57)
[2017-06-15] MEDS: LACTOBACILLUS ACIDOPHILUS 1 EACH TAB (FP) PO SCH ×2 (09:15→21:29)
[2017-06-15] MEDS: predniSONE 20 MG TABLET (UD) PO SCH (09:15)
[2017-06-15] MEDS: ASPIRIN COATED 81 MG TABLET.EC PO SCH (09:16)
[2017-06-15] MEDS: FOLIC ACID 1 MG TABLET (FP) PO SCH (09:16)
[2017-06-15] MEDS: VALSARTAN 160 MG TABLET (UD) PO SCH (09:16)
[2017-06-15] MEDS: ARTIFICIAL TEARS (POLYVINYL ALCOHOL 1.4%) OPTH DROPS OU SCH (09:17)
[2017-06-15] MEDS: THIAMINE HCL 100 MG TABLET (FP) PO SCH (09:17)
[2017-06-15] MEDS: MUPIROCIN 2% TOPICAL OINTMENT 22 GM TUBE NS SCH ×2 (09:17→22:36)
[2017-06-15] MEDS: CHOLESTYRAMINE/ASPARTAME 4 GM PACKET PO SCH ×2 (09:17→21:30)
[2017-06-15] MEDS: RANITIDINE HCL 150 MG TABLET (FP) PO SCH (09:17)
[2017-06-15] MEDS: HEPARIN NA (PORCINE) 5,000 UNITS/ML 1ML VIAL SQ SCH ×3 (09:18→21:29)
[2017-06-15] MEDS: NITROGLYCERIN 2% OINTMENT - 1GM PACKET TD PRN (09:19)
--- NOTE | 2017-06-15 09:22 | PN ---
Progress Note, Physician Chief Complaint: Events noted Dyspnea improving Breathing with trache collar History of Present Illness: Patient was seen and examined. Awake and alert. Chart was reviewed Denies chest discomfort No change - Current Medication List Current Medications: Active Medications Acetaminophen (Tylenol -) 650 mg PO Q4H PRN PRN Reason: FEVER OR PAIN Last Admin: 06/15/17 02:15 Dose: 650 mg Acetylcysteine (Mucomyst 20 Oral / Inh Use Only*) 200 mg NEB QIDR COUNTS [facility] BEDS [facility] Last Admin: 06/15/17 06:53 Dose: 200 mg Albuterol Sulfate (Ventolin 0.083% Nebulizer Soln -) 1 amp NEB QIDR COUNTS [facility]CLUDE 234 BEDS AT [facility] Last Admin: 06/15/17 06:53 Dose: 1 amp Amlodipine Besylate (Norvasc -) 5 mg PO DAILY [facility]S [facility]CLUDE 234 BEDS AT [facility] Last Admin: 06/15/17 09:16 Dose: 5 mg Artificial Tears (Artificial Tears) 1 drop OU DAILY [facility] 234 BEDS AT [facility] Last Admin: 06/15/17 09:17 Dose: 1 drop Aspirin (Ecotrin -) 81 mg PO DAILY [facility] 234 B[facility]S [facility] Last Admin: 06/15/17 09:16 Dose: 81 mg Budesonide (Pulmicort 0.25 Mg Nebulizer -) 1 amp NEB BID COUNTS [facility]CLUDE 234 BEDS AT [facility] Last Admin: 06/14/17 22:15 Dose: 1 amp Cholestyramine Resin (Questran Light Packet -) 4 gm PO BID [facility]S [facility]CLUDE 234 BEDS AT [facility] Last Admin: 06/15/17 09:17 Dose: 4 gm Diltiazem HCl (Cardizem Cd -) 240 mg PO DAILY [facility]CLUDE 234 B[facility]S [facility] Last Admin: 06/15/17 09:15 Dose: 240 mg Folic Acid (Folic Acid -) 1 mg PO DAILY [facility] 234 B[facility]S [facility] Last Admin: 06/15/17 09:16 Dose: 1 mg Heparin Sodium (Porcine) (Heparin -) 5,000 unit SQ BID [facility] 234 BEDS [facility] Last Admin: 06/15/17 09:18 Dose: 5,000 unit Lactobacillus Acidophilus (Bacid -) 1 tab PO BID [facility] 234 BEDS AT [facility] Last Admin: 06/15/17 09:15 Dose: 1 tab Levothyroxine Sodium (Synthroid -) 50 mcg PO DAILY@0700 [facility] 234 [facility]S [facility] Last Admin: 06/15/17 06:26 Dose: 50 mcg Lorazepam (Ativan -) 0.5 mg PO TID PRN PRN Reason: ANXIETY Last Admin: 06/14/17 21:34 Dose: 0.5 mg Mirtazapine (Remeron -) 15 mg PO HS [facility]S [facility] 234 B[facility]S [facility] Last Admin: 06/14/17 21:34 Dose: Not Given Mupirocin (Bactroban 2% Ointment -) 1 applic NS BID [facility] 234 BEDS [facility] Stop: 06/16/17 21:59 Last Admin: 06/15/17 09:17 Dose: 1 applic Nitroglycerin (Nitro-Bid 2% Paste -) 0.5 inch TD Q6H PRN Last Admin: 06/15/17 09:19 Dose: 0.5 inch Prednisone (Deltasone -) 60 mg PO DAILY [facility] 234 BEDS [facility] Last Admin: 06/15/17 09:15 Dose: 60 mg Ranitidine HCl (Zantac -) 150 mg PO DAILY [facility] 234 B[facility]S [facility] Last Admin: 06/15/17 09:17 Dose: 150 mg Thiamine HCl (Vitamin B1 -) 100 mg PO DAILY [facility] 234 [facility]S [facility] Last Admin: 06/15/17 09:17 Dose: 100 mg Tramadol HCl (Ultram -) 100 mg PO Q8H PRN PRN Reason: PAIN Last Admin: 06/15/17 06:26 Dose: 100 mg Valsartan (Diovan -) 160 mg PO DAILY [facility] 234 B[facility]S [facility] Last Admin: 06/15/17 09:16 Dose: 160 mg - Objective Vital Signs: Vital Signs Temperature 97.7 F 06/15/17 06:00 Pulse Rate 97 H 06/15/17 06:00 Respiratory Rate 16 06/15/17 06:00 Blood Pressure 158/76 06/15/17 06:00 O2 Sat by Pulse Oximetry (%) 96 06/14/17 12:20 Cardiovascular: Yes: Regular Rate and Rhythm, S1, S2 Respiratory: Yes: Diminished Gastrointestinal: Yes: Normal Bowel Sounds, Soft. No: Tenderness Edema: No Problem List - Problems (1) Asthma exacerbation in COPD Code(s): J44.1 - CHRONIC OBSTRUCTIVE PULMONARY DISEASE W (ACUTE) EXACERBATION J45.901 - UNSPECIFIED ASTHMA WITH (ACUTE) EXACERBATION (2) Chronic respiratory failure with hypoxia Code(s): J96.11 - CHRONIC RESPIRATORY FAILURE WITH HYPOXIA (3) A-fib Code(s): I48.91 - UNSPECIFIED ATRIAL FIBRILLATION Qualifiers: Atrial fibrillation type: paroxysmal Qualified Code(s): I48.0 - Paroxysmal atrial fibrillation (4) Acute on chronic respiratory failure with hypoxia and hypercapnia Code(s): J96.21 - ACUTE AND CHRONIC RESPIRATORY FAILURE WITH HYPOXIA J96.22 - ACUTE AND CHRONIC RESPIRATORY FAILURE WITH HYPERCAPNIA (5) COPD exacerbation Code(s): J44.1 - CHRONIC OBSTRUCTIVE PULMONARY DISEASE W (ACUTE) EXACERBATION (6) Chest pain Code(s): R07.9 - CHEST PAIN, UNSPECIFIED Qualifiers: Chest pain type: pleurodynia Qualified Code(s): R07.81 - Pleurodynia (7) Hypothyroid Code(s): E03.9 - HYPOTHYROIDISM, UNSPECIFIED Qualifiers: Hypothyroidism type: unspecified Qualified Code(s): E03.9 - Hypothyroidism, unspecified (8) Recurrent Clostridium difficile diarrhea Code(s): A04.7 - ENTEROCOLITIS DUE TO CLOSTRIDIUM DIFFICILE (9) Tracheostomy dependence Code(s): Z93.0 - TRACHEOSTOMY STATUS Assessment/Plan 1. Acute COPD Exacerbation 2. Chronic Hypoxic Respiratory Failure s/p tracheostomy 3. Paroxysmal Atrial Fibrillation/atrial tachycardia not on anticoagulation due to falls risks 4. Atypical chest pain referable to #1 5. HTN - not at goal 6. History of refractory C. Difficile Colitis 7. Hypothyroidism PLAN: 1. Continue steroids with GI protection, inhaled bronchodilators, O2 via mask and DVT prophylaxis 2. Continue ASA 81 qd and increase Cardizem CD to 300 mg once a day as tolerated. Continue Valsartan 160 mg once a day - may up-titrate as needed. No need to use two calcium channel aric. Stop Amlodipine 3. Consider anxiety medication if continues to be anxious which also may elevate her BP Further plans are to follow. Possible discharge planning Bert Ivan MD
--- NOTE | 2017-06-15 09:44 | PN ---
Progress Note (short form) - Note Progress Note: ENT pt awake, alert, NAD #7 Portex trach tube in place, secure, functioning well pt wearing trach collar for O2 Impression: stable trach status Recommend: continue trach care Ej Lagunas MD FACS
[2017-06-15] MEDS ORDERED: amLODIPine BESYLATE 5 MG TABLET (FP) PO SCH (10:00)
[2017-06-15] MEDS: BUDESONIDE 0.25 MG/2ML INH SUSP VIAL NEB SCH ×2 (10:10→22:00)
[2017-06-15] MEDS: ALBUTEROL SO4 0.083% IH SOL 2.5 MG/3 ML VIAL.NEB. NEB PRN ×2 (11:35→18:40)
[2017-06-15] MEDS ORDERED: VALSARTAN 160 MG TABLET (UD) PO ONE (11:45)
[2017-06-15] MEDS ORDERED: ALBUTEROL SO4 2.5/IPRATROPIUM 0.5 INH SOL 3 ML VIAL.NEB. NEB SCH (12:00)
[2017-06-15] MEDS ORDERED: ALBUTEROL SO4 0.083% IH SOL 2.5 MG/3 ML VIAL.NEB. NEB ONE (12:01)
[2017-06-15 13:23] LABS: ARTERIAL BLD GAS O2 SATURATION 88.1 % (90-98.9); ARTERIAL BLOOD GAS BASE EXCESS 14.4 meq/l (-2-2); ARTERIAL BLOOD GAS HCO3 43.9 meq/L (22-26); ARTERIAL BLOOD GAS PO2 54.2 mmHg (80-100); ARTERIAL BLOOD GAS pH 7.35 (7.35-7.45)
[2017-06-15 13:24] LABS: ALLENS TEST POSITIVE; ART PUNCT SITE RIGHT RADIAL; LPM/O2% 70%; PT. ON O2? YES; TYPE OF O2 TRACH COLLAR
--- NOTE | 2017-06-15 14:49 | PN ---
Progress Note, Physician History of Present Illness: pulmonary alert,more dyspneic today,congested - Current Medication List Current Medications: Active Medications Acetaminophen (Tylenol -) 650 mg PO Q4H PRN PRN Reason: FEVER OR PAIN Last Admin: 06/15/17 11:10 Dose: 650 mg Acetylcysteine (Mucomyst 20 Oral / Inh Use Only*) 200 mg NEB QIDR [facility] Last Admin: 06/15/17 06:53 Dose: 200 mg Albuterol/Ipratropium (Duoneb -) 1 amp NEB QIDR [facility] Artificial Tears (Artificial Tears) 1 drop OU DAILY [facility] Last Admin: 06/15/17 09:17 Dose: 1 drop Aspirin (Ecotrin -) 81 mg PO DAILY [facility] Last Admin: 06/15/17 09:16 Dose: 81 mg Budesonide (Pulmicort 0.25 Mg Nebulizer -) 1 amp NEB BID [facility] Last Admin: 06/14/17 22:15 Dose: 1 amp Cholestyramine Resin (Questran Light Packet -) 4 gm PO BID [facility] Last Admin: 06/15/17 09:17 Dose: 4 gm Diltiazem HCl (Cardizem Cd -) 300 mg PO DAILY [facility] Folic Acid (Folic Acid -) 1 mg PO DAILY [facility] Last Admin: 06/15/17 09:16 Dose: 1 mg Heparin Sodium (Porcine) (Heparin -) 5,000 unit SQ BID [facility] Last Admin: 06/15/17 09:28 Dose: Not Given Lactobacillus Acidophilus (Bacid -) 1 tab PO BID [facility] Last Admin: 06/15/17 09:15 Dose: 1 tab Levothyroxine Sodium (Synthroid -) 50 mcg PO DAILY@0700 [facility] Last Admin: 06/15/17 06:26 Dose: 50 mcg Lorazepam (Ativan -) 0.5 mg PO TID PRN PRN Reason: ANXIETY Last Admin: 06/14/17 21:34 Dose: 0.5 mg Mirtazapine (Remeron -) 15 mg PO [facility] Last Admin: 06/14/17 21:34 Dose: Not Given Mupirocin (Bactroban 2% Ointment -) 1 applic NS BID [facility] Stop: 06/16/17 21:59 Last Admin: 06/15/17 09:17 Dose: 1 applic Nitroglycerin (Nitro-Bid 2% Paste -) 0.5 inch TD Q6H PRN Last Admin: 06/15/17 09:19 Dose: 0.5 inch Prednisone (Deltasone -) 60 mg PO DAILY [facility] Last Admin: 06/15/17 09:15 Dose: 60 mg Ranitidine HCl (Zantac -) 150 mg PO DAILY [facility] Last Admin: 06/15/17 09:17 Dose: 150 mg Thiamine HCl (Vitamin B1 -) 100 mg PO DAILY [facility] Last Admin: 06/15/17 09:17 Dose: 100 mg Tramadol HCl (Ultram -) 100 mg PO Q8H PRN PRN Reason: PAIN Last Admin: 06/15/17 06:26 Dose: 100 mg Valsartan (Diovan -) 320 mg PO DAILY [facility] - Objective Vital Signs: Vital Signs Temperature 96.8 F L 06/15/17 08:40 Pulse Rate 76 06/15/17 13:35 Respiratory Rate 18 06/15/17 13:35 Blood Pressure 146/69 06/15/17 13:35 O2 Sat by Pulse Oximetry (%) 91 L 06/15/17 09:00 Constitutional: Yes: Well Nourished, Calm Eyes: Yes: WNL HENT: Yes: WNL Neck: Yes: Supple (trach) Cardiovascular: Yes: Pulse Irregular, S1, S2 Respiratory: Yes: Rhonchi (scattered chano wheezes and rhonchi), Wheezes Gastrointestinal: Yes: Normal Bowel Sounds, Soft Extremities: Yes: WNL Edema: No Labs: CBC, BMP Laboratory Tests 06/15/17 13:20 ABG pH 7.35 ABG pCO2 at Pt Temp 81.3 H* D ABG pO2 at Pt Temp 54.2 L ABG HCO3 43.9 H* ABG O2 Sat (Measured) 88.1 L O2 Delivery Device Trach collar Oxygen Flow Rate 70% - ....Imaging Chest X-ray: Report Reviewed, Image Reviewed (no infitrates) Assessment/Plan Problem List - Problems (1) COPD exacerbation Code(s): J44.1 - CHRONIC OBSTRUCTIVE PULMONARY DISEASE W (ACUTE) EXACERBATION (2) Chronic respiratory failure with hypoxia Code(s): J96.11 - CHRONIC RESPIRATORY FAILURE WITH HYPOXIA (3) A-fib Code(s): I48.91 - UNSPECIFIED ATRIAL FIBRILLATION (4) Chest pain Code(s): R07.9 - CHEST PAIN, UNSPECIFIED Assessment/Plan Acute COPD Exacerbation Chronic Hypoxic Respiratory Failure s/p trach Atrial Fibrillation HTN - solumedrol - inhaled bronchodilators - O2 to keep SpO2 >90% - rate controlled - DVT prophylaxis - pain control - mucomyst - tracheal suctioning DR RAGLAND
[2017-06-15] MEDS: methylPREDNISolone NA SUCC 40 MG/1 ML VIAL IVPB SCH ×2 (16:03→21:29)
[2017-06-15] MEDS: LORazepam 0.5 MG TABLET PO PRN (21:30)
[2017-06-15] MEDS: MIRTAZAPINE 15 MG TABLET (FP) PO SCH (21:30)
[2017-06-16] MEDS: ACETYLCYSTEINE 20% 200MG/ML 4 ML VIAL *FOR ORAL / INH USE ONLY NEB SCH ×5 (00:15→23:08)
[2017-06-16] MEDS: ALBUTEROL SO4 0.083% IH SOL 2.5 MG/3 ML VIAL.NEB. NEB PRN ×5 (00:20→23:08)
[2017-06-16] MEDS: methylPREDNISolone NA SUCC 40 MG/1 ML VIAL IVPB SCH ×4 (02:08→22:46)
[2017-06-16] MEDS: LEVOTHYROXINE NA 50 MCG TABLET (FP) PO SCH (06:15)
[2017-06-16] MEDS: ACETAMINOPHEN 325 MG TABLET (FP) PO PRN (06:30)
--- NOTE | 2017-06-16 08:57 | PN ---
Progress Note, Physician Chief Complaint: Events noted Dyspnea improving Breathing with trache collar History of Present Illness: Patient was seen and examined. Awake and alert. Chart was reviewed Denies chest discomfort No changes - Current Medication List Current Medications: Active Medications Acetaminophen (Tylenol -) 650 mg PO Q4H PRN PRN Reason: FEVER OR PAIN Last Admin: 06/16/17 06:30 Dose: 650 mg Acetylcysteine (Mucomyst 20 Oral / Inh Use Only*) 200 mg NEB QIDR [facility] Last Admin: 06/16/17 06:55 Dose: 200 mg Albuterol Sulfate (Ventolin 0.083% Nebulizer Soln -) 1 amp NEB Q4H PRN PRN Reason: SHORT OF BREATH/WHEEZING Last Admin: 06/16/17 06:56 Dose: 1 amp Artificial Tears (Artificial Tears) 1 drop OU DAILY [facility] Last Admin: 06/15/17 09:17 Dose: 1 drop Aspirin (Ecotrin -) 81 mg PO DAILY [facility] Last Admin: 06/15/17 09:16 Dose: 81 mg Budesonide (Pulmicort 0.25 Mg Nebulizer -) 1 amp NEB BID [facility] Last Admin: 06/15/17 22:00 Dose: 1 amp Cholestyramine Resin (Questran Light Packet -) 4 gm PO BID [facility] Last Admin: 06/15/17 21:30 Dose: 4 gm Diltiazem HCl (Cardizem Cd -) 300 mg PO DAILY [facility] Folic Acid (Folic Acid -) 1 mg PO DAILY [facility] Last Admin: 06/15/17 09:16 Dose: 1 mg Heparin Sodium (Porcine) (Heparin -) 5,000 unit SQ BID [facility] Last Admin: 06/15/17 21:29 Dose: 5,000 unit Lactobacillus Acidophilus (Bacid -) 1 tab PO BID [facility] Last Admin: 06/15/17 21:29 Dose: 1 tab Levothyroxine Sodium (Synthroid -) 50 mcg PO DAILY@0700 [facility] Last Admin: 06/16/17 06:15 Dose: 50 mcg Lorazepam (Ativan -) 0.5 mg PO TID PRN PRN Reason: ANXIETY Last Admin: 06/15/17 21:30 Dose: 0.5 mg Methylprednisolone Sodium Succinate (Solu-Medrol -) 40 mg IVPB Q6H-IV [facility] Last Admin: 06/16/17 08:30 Dose: 40 mg Mirtazapine (Remeron -) 15 mg PO HS [facility] Last Admin: 06/15/17 21:30 Dose: 15 mg Mupirocin (Bactroban 2% Ointment -) 1 applic NS BID [facility] Stop: 06/16/17 21:59 Last Admin: 06/15/17 22:36 Dose: 1 applic Nitroglycerin (Nitro-Bid 2% Paste -) 0.5 inch TD Q6H PRN Last Admin: 06/15/17 09:19 Dose: 0.5 inch Ranitidine HCl (Zantac -) 150 mg PO DAILY [facility] Last Admin: 06/15/17 09:17 Dose: 150 mg Thiamine HCl (Vitamin B1 -) 100 mg PO DAILY [facility] Last Admin: 06/15/17 09:17 Dose: 100 mg Tramadol HCl (Ultram -) 100 mg PO Q8H PRN PRN Reason: PAIN Last Admin: 06/15/17 15:19 Dose: 100 mg Valsartan (Diovan -) 320 mg PO DAILY [facility] - Objective Vital Signs: Vital Signs Temperature 98.4 F 06/16/17 07:13 Pulse Rate 92 H 06/16/17 07:13 Respiratory Rate 18 06/16/17 07:13 Blood Pressure 141/96 06/16/17 07:13 O2 Sat by Pulse Oximetry (%) 98 06/15/17 21:00 Neck: Yes: Supple Cardiovascular: Yes: Regular Rate and Rhythm, S1, S2 Respiratory: Yes: Diminished Gastrointestinal: Yes: Normal Bowel Sounds, Soft. No: Tenderness Edema: No Labs: Problem List - Problems (1) Asthma exacerbation in COPD Code(s): J44.1 - CHRONIC OBSTRUCTIVE PULMONARY DISEASE W (ACUTE) EXACERBATION J45.901 - UNSPECIFIED ASTHMA WITH (ACUTE) EXACERBATION (2) Chronic respiratory failure with hypoxia Code(s): J96.11 - CHRONIC RESPIRATORY FAILURE WITH HYPOXIA (3) A-fib Code(s): I48.91 - UNSPECIFIED ATRIAL FIBRILLATION Qualifiers: Atrial fibrillation type: paroxysmal Qualified Code(s): I48.0 - Paroxysmal atrial fibrillation (4) Acute on chronic respiratory failure with hypoxia and hypercapnia Code(s): J96.21 - ACUTE AND CHRONIC RESPIRATORY FAILURE WITH HYPOXIA J96.22 - ACUTE AND CHRONIC RESPIRATORY FAILURE WITH HYPERCAPNIA (5) COPD exacerbation Code(s): J44.1 - CHRONIC OBSTRUCTIVE PULMONARY DISEASE W (ACUTE) EXACERBATION (6) Chest pain Code(s): R07.9 - CHEST PAIN, UNSPECIFIED Qualifiers: Chest pain type: pleurodynia Qualified Code(s): R07.81 - Pleurodynia (7) Hypothyroid Code(s): E03.9 - HYPOTHYROIDISM, UNSPECIFIED Qualifiers: Hypothyroidism type: unspecified Qualified Code(s): E03.9 - Hypothyroidism, unspecified (8) Recurrent Clostridium difficile diarrhea Code(s): A04.7 - ENTEROCOLITIS DUE TO CLOSTRIDIUM DIFFICILE (9) Tracheostomy dependence Code(s): Z93.0 - TRACHEOSTOMY STATUS Assessment/Plan 1. Acute COPD Exacerbation 2. Chronic Hypoxic Respiratory Failure s/p tracheostomy 3. Paroxysmal Atrial Fibrillation/atrial tachycardia not on anticoagulation due to falls risks 4. Atypical chest pain referable to #1 5. HTN - not at goal 6. History of refractory C. Difficile Colitis 7. Hypothyroidism PLAN: 1. Continue steroids with GI protection, inhaled bronchodilators, O2 via mask and DVT prophylaxis 2. Continue ASA 81 qd and continue Cardizem CD 300 mg once a day as tolerated. Continue Valsartan 160 mg once a day - may up-titrate as needed. 3. Consider anxiety medication if clinically indicated Further plans are to follow Bert Ivan MD
[2017-06-16] MEDS ORDERED: PT OWN MED DRAWER 7, Y5N ONE (09:54)
[2017-06-16] MEDS: BUDESONIDE 0.25 MG/2ML INH SUSP VIAL NEB SCH ×2 (10:02→22:16)
[2017-06-16] MEDS: FOLIC ACID 1 MG TABLET (FP) PO SCH (10:09)
[2017-06-16] MEDS: VALSARTAN 160 MG TABLET (UD) PO SCH (10:09)
[2017-06-16] MEDS: LACTOBACILLUS ACIDOPHILUS 1 EACH TAB (FP) PO SCH ×2 (10:09→22:47)
[2017-06-16] MEDS: ASPIRIN COATED 81 MG TABLET.EC PO SCH (10:10)
[2017-06-16] MEDS: CHOLESTYRAMINE/ASPARTAME 4 GM PACKET PO SCH ×2 (10:10→22:47)
[2017-06-16] MEDS: THIAMINE HCL 100 MG TABLET (FP) PO SCH (10:10)
[2017-06-16] MEDS: RANITIDINE HCL 150 MG TABLET (FP) PO SCH (10:10)
[2017-06-16] MEDS: HEPARIN NA (PORCINE) 5,000 UNITS/ML 1ML VIAL SQ SCH ×2 (10:10→22:47)
[2017-06-16] MEDS: MUPIROCIN 2% TOPICAL OINTMENT 22 GM TUBE NS SCH (10:11)
[2017-06-16] MEDS: ARTIFICIAL TEARS (POLYVINYL ALCOHOL 1.4%) OPTH DROPS OU SCH (10:13)
--- NOTE | 2017-06-16 10:32 | PN ---
Progress Note, Physician Chief Complaint: SOB History of Present Illness: NAD, in bed, on 70% trach, Spo2 95% cough much improved, still feels SOB periodically but feeling better today, wants to go back to [place] BP still uncontrolled diovan increased to 320 as per cardiology still on Nitro patch as needed neb txs still on IV solumedrol 40 mg Q6h - Current Medication List Current Medications: Active Medications Acetaminophen (Tylenol -) 650 mg PO Q4H PRN PRN Reason: FEVER OR PAIN Last Admin: 06/16/17 06:30 Dose: 650 mg Acetylcysteine (Mucomyst 20 Oral / Inh Use Only*) 200 mg NEB QIDR [facility] Last Admin: 06/16/17 06:55 Dose: 200 mg Albuterol Sulfate (Ventolin 0.083% Nebulizer Soln -) 1 amp NEB Q4H PRN PRN Reason: SHORT OF BREATH/WHEEZING Last Admin: 06/16/17 06:56 Dose: 1 amp Artificial Tears (Artificial Tears) 1 drop OU DAILY [facility] Last Admin: 06/16/17 10:13 Dose: 1 drop Aspirin (Ecotrin -) 81 mg PO DAILY [facility] Last Admin: 06/16/17 10:10 Dose: 81 mg Budesonide (Pulmicort 0.25 Mg Nebulizer -) 1 amp NEB BID [facility] Last Admin: 06/16/17 10:02 Dose: 1 amp Cholestyramine Resin (Questran Light Packet -) 4 gm PO BID [facility] Last Admin: 06/16/17 10:10 Dose: 4 gm Diltiazem HCl (Cardizem Cd -) 300 mg PO DAILY [facility] Last Admin: 06/16/17 10:10 Dose: 300 mg Folic Acid (Folic Acid -) 1 mg PO DAILY [facility] Last Admin: 06/16/17 10:09 Dose: 1 mg Heparin Sodium (Porcine) (Heparin -) 5,000 unit SQ BID [facility] Last Admin: 06/16/17 10:10 Dose: 5,000 unit Lactobacillus Acidophilus (Bacid -) 1 tab PO BID [facility] Last Admin: 06/16/17 10:09 Dose: 1 tab Levothyroxine Sodium (Synthroid -) 50 mcg PO DAILY@0700 [facility] Last Admin: 06/16/17 06:15 Dose: 50 mcg Lorazepam (Ativan -) 0.5 mg PO TID PRN PRN Reason: ANXIETY Last Admin: 06/15/17 21:30 Dose: 0.5 mg Methylprednisolone Sodium Succinate (Solu-Medrol -) 40 mg IVPB Q6H-IV [facility] Last Admin: 06/16/17 08:30 Dose: 40 mg Mirtazapine (Remeron -) 15 mg PO HS [facility] Last Admin: 06/15/17 21:30 Dose: 15 mg Mupirocin (Bactroban 2% Ointment -) 1 applic NS BID [facility] Stop: 06/16/17 21:59 Last Admin: 06/16/17 10:11 Dose: 1 applic Nitroglycerin (Nitro-Bid 2% Paste -) 0.5 inch TD Q6H PRN Last Admin: 06/15/17 09:19 Dose: 0.5 inch Ranitidine HCl (Zantac -) 150 mg PO DAILY [facility] Last Admin: 06/16/17 10:10 Dose: 150 mg Thiamine HCl (Vitamin B1 -) 100 mg PO DAILY [facility] Last Admin: 06/16/17 10:10 Dose: 100 mg Tramadol HCl (Ultram -) 100 mg PO Q8H PRN PRN Reason: PAIN Last Admin: 06/15/17 15:19 Dose: 100 mg Valsartan (Diovan -) 320 mg PO DAILY [facility] Last Admin: 06/16/17 10:09 Dose: 320 mg - Objective Vital Signs: Vital Signs Temperature 98.4 F 06/16/17 07:13 Pulse Rate 74 06/16/17 10:02 Respiratory Rate 18 06/16/17 07:13 Blood Pressure 141/96 06/16/17 07:13 O2 Sat by Pulse Oximetry (%) 95 06/16/17 10:02 Constitutional: Yes: Well Nourished, No Distress, Calm Cardiovascular: Yes: Regular Rate and Rhythm Respiratory: Yes: Regular, Diminished, Other (trach mask) Gastrointestinal: Yes: Normal Bowel Sounds Extremities: Yes: WNL Edema: No Peripheral Pulses WNL: Yes Neurological: Yes: Alert, Oriented Psychiatric: Yes: Alert, Oriented Labs: CBC, BMP 06/13/17 08:15 06/13/17 08:15 INR, PTT INR 1.05 (0.82-1.09) 06/08/17 12:30 Problem List - Problems (1) Chronic respiratory failure with hypoxia Code(s): J96.11 - CHRONIC RESPIRATORY FAILURE WITH HYPOXIA (2) COPD (chronic obstructive pulmonary disease) Assessment/Plan: Trach mask, increased to 70%, keep O2 >90% -IV steroids -Neb tx -Mucomyst -suction PRN -started on pulmicort BID Code(s): J44.9 - CHRONIC OBSTRUCTIVE PULMONARY DISEASE, UNSPECIFIED Qualifiers : COPD type: COPD with acute exacerbation Qualified Code(s): J44.1 - Chronic obstructive pulmonary disease with (acute) exacerbation (3) Diarrhea Assessment/Plan: likely due to history of c diff Cdiff negative stool OB,O&P,culture pending add probiotics BID and cholestyramine GI consult Code(s): R19.7 - DIARRHEA, UNSPECIFIED Qualifiers: Diarrhea type: unspecified type Qualified Code(s): R19.7 - Diarrhea , unspecified (4) Tracheostomy dependence Assessment/Plan: -seen by ENT -Tracheostomy changed to #7 to cuffless trach with inner cannula, patient feels her breathing is improved Code(s): Z93.0 - TRACHEOSTOMY STATUS Assessment/Plan -Stool collection for O&P,culture and OB -pulmonary,ID and cardiology consult appreciated -still IV steroids- taper as per Pulmonary -neb tx -Trach mask with humidification -GI consult -pulmicort BID -Probiotic and cholestyramine -Increase FiO2 to 70% to maintain sPO2 >90% -Bactroban BID for MRSA -tracheostomy changed by ENT -Physical therapy eval -BP needs to be at goal before discharge -d/c to rehab once stable
--- NOTE | 2017-06-16 15:28 | PN ---
Progress Note, Physician History of Present Illness: PULMONARY ALERT,FEELING BETTER,LESS DYSPNEIC - Current Medication List Current Medications: Active Medications Acetaminophen (Tylenol -) 650 mg PO Q4H PRN PRN Reason: FEVER OR PAIN Last Admin: 06/16/17 06:30 Dose: 650 mg Acetylcysteine (Mucomyst 20 Oral / Inh Use Only*) 200 mg NEB QIDR [facility] Last Admin: 06/16/17 12:20 Dose: 200 mg Albuterol Sulfate (Ventolin 0.083% Nebulizer Soln -) 1 amp NEB Q4H PRN PRN Reason: SHORT OF BREATH/WHEEZING Last Admin: 06/16/17 12:20 Dose: 1 amp Artificial Tears (Artificial Tears) 1 drop OU DAILY [facility] Last Admin: 06/16/17 10:13 Dose: 1 drop Aspirin (Ecotrin -) 81 mg PO DAILY [facility] Last Admin: 06/16/17 10:10 Dose: 81 mg Budesonide (Pulmicort 0.25 Mg Nebulizer -) 1 amp NEB BID [facility] Last Admin: 06/16/17 10:02 Dose: 1 amp Cholestyramine Resin (Questran Light Packet -) 4 gm PO BID [facility] Last Admin: 06/16/17 10:10 Dose: 4 gm Diltiazem HCl (Cardizem Cd -) 300 mg PO DAILY [facility] Last Admin: 06/16/17 10:10 Dose: 300 mg Folic Acid (Folic Acid -) 1 mg PO DAILY [facility] Last Admin: 06/16/17 10:09 Dose: 1 mg Heparin Sodium (Porcine) (Heparin -) 5,000 unit SQ BID [facility] Last Admin: 06/16/17 10:10 Dose: 5,000 unit Lactobacillus Acidophilus (Bacid -) 1 tab PO BID [facility] Last Admin: 06/16/17 10:09 Dose: 1 tab Levothyroxine Sodium (Synthroid -) 50 mcg PO DAILY@0700 [facility] Last Admin: 06/16/17 06:15 Dose: 50 mcg Methylprednisolone Sodium Succinate (Solu-Medrol -) 40 mg IVPB Q6H-IV [facility] Last Admin: 06/16/17 14:46 Dose: 40 mg Mirtazapine (Remeron -) 15 mg PO HS [facility] Last Admin: 06/15/17 21:30 Dose: 15 mg Mupirocin (Bactroban 2% Ointment -) 1 applic NS BID [facility] Stop: 06/16/17 21:59 Last Admin: 06/16/17 10:11 Dose: 1 applic Nitroglycerin (Nitro-Bid 2% Paste -) 0.5 inch TD Q6H PRN Last Admin: 06/15/17 09:19 Dose: 0.5 inch Ranitidine HCl (Zantac -) 150 mg PO DAILY [facility] Last Admin: 06/16/17 10:10 Dose: 150 mg Thiamine HCl (Vitamin B1 -) 100 mg PO DAILY [facility] Last Admin: 06/16/17 10:10 Dose: 100 mg Tramadol HCl (Ultram -) 100 mg PO Q8H PRN PRN Reason: PAIN Last Admin: 06/15/17 15:19 Dose: 100 mg Valsartan (Diovan -) 320 mg PO DAILY [facility] Last Admin: 06/16/17 10:09 Dose: 320 mg - Objective Vital Signs: Vital Signs Temperature 99.3 F 06/16/17 14:53 Pulse Rate 92 H 06/16/17 14:53 Respiratory Rate 18 06/16/17 14:53 Blood Pressure 141/96 06/16/17 07:13 O2 Sat by Pulse Oximetry (%) 95 06/16/17 10:02 Constitutional: Yes: Calm, Thin Eyes: Yes: WNL HENT: Yes: WNL Neck: Yes: Supple (TRACH) Cardiovascular: Yes: Pulse Irregular, S1, S2 Respiratory: Yes: Rhonchi (FEW RHONCHI) Gastrointestinal: Yes: Normal Bowel Sounds, Soft Extremities: Yes: WNL Edema: No Peripheral Pulses WNL: No Assessment/Plan Problem List - Problems (1) COPD exacerbation Code(s): J44.1 - CHRONIC OBSTRUCTIVE PULMONARY DISEASE W (ACUTE) EXACERBATION (2) Chronic respiratory failure with hypoxia Code(s): J96.11 - CHRONIC RESPIRATORY FAILURE WITH HYPOXIA (3) A-fib Code(s): I48.91 - UNSPECIFIED ATRIAL FIBRILLATION (4) Chest pain Code(s): R07.9 - CHEST PAIN, UNSPECIFIED Assessment/Plan Acute COPD Exacerbation Chronic Hypoxic Respiratory Failure s/p trach Atrial Fibrillation HTN - solumedrol same dose - inhaled bronchodilators - O2 to keep SpO2 >90% - rate controlled - DVT prophylaxis - pain control - mucomyst - tracheal suctioning DR RAGLAND
[2017-06-16] MEDS: MIRTAZAPINE 15 MG TABLET (FP) PO SCH (22:47)
[2017-06-16] MEDS: traMADol HCL 50 MG TABLET PO PRN (22:54)
[2017-06-17] MEDS: methylPREDNISolone NA SUCC 40 MG/1 ML VIAL IVPB SCH ×3 (02:25→18:36)
[2017-06-17] MEDS ORDERED: LORazepam 0.5 MG TABLET ONE (02:27)
[2017-06-17] MEDS: LORazepam 0.5 MG TABLET PO PRN (02:29)
[2017-06-17] MEDS: LEVOTHYROXINE NA 50 MCG TABLET (FP) PO SCH (06:34)
[2017-06-17] MEDS ORDERED: PT OWN MED DRAWER 7, Y5N ONE ×2 (06:36→09:57)
[2017-06-17] MEDS: VALSARTAN 160 MG TABLET (UD) PO SCH ×2 (06:38→10:06)
[2017-06-17] MEDS: ALBUTEROL SO4 0.083% IH SOL 2.5 MG/3 ML VIAL.NEB. NEB PRN ×4 (06:40→23:20)
[2017-06-17] MEDS: ACETYLCYSTEINE 20% 200MG/ML 4 ML VIAL *FOR ORAL / INH USE ONLY NEB SCH ×4 (06:40→23:20)
[2017-06-17] MEDS: BUDESONIDE 0.25 MG/2ML INH SUSP VIAL NEB SCH ×2 (10:00→22:25)
[2017-06-17] MEDS: LACTOBACILLUS ACIDOPHILUS 1 EACH TAB (FP) PO SCH ×2 (10:05→21:53)
[2017-06-17] MEDS: ASPIRIN COATED 81 MG TABLET.EC PO SCH (10:05)
[2017-06-17] MEDS: THIAMINE HCL 100 MG TABLET (FP) PO SCH (10:06)
[2017-06-17] MEDS: HEPARIN NA (PORCINE) 5,000 UNITS/ML 1ML VIAL SQ SCH ×2 (10:06→21:54)
[2017-06-17] MEDS: RANITIDINE HCL 150 MG TABLET (FP) PO SCH (10:06)
[2017-06-17] MEDS: FOLIC ACID 1 MG TABLET (FP) PO SCH (10:06)
[2017-06-17] MEDS ORDERED: LORazepam 0.5 MG TABLET PO PRN (10:18)
--- NOTE | 2017-06-17 10:35 | PN ---
Progress Note, Physician Chief Complaint: SOB History of Present Illness: NAD, in bed, on 70% trach, Spo2 95% cough much improved, still feels SOB periodically but feeling better today, wants to go back to [place] BP still uncontrolled diovan increased to 320 as per cardiology still on Nitro patch as needed neb txs still on IV solumedrol 40 mg Q6h - Current Medication List Current Medications: Active Medications Acetaminophen (Tylenol -) 650 mg PO Q4H PRN PRN Reason: FEVER OR PAIN Last Admin: 06/16/17 06:30 Dose: 650 mg Acetylcysteine (Mucomyst 20 Oral / Inh Use Only*) 200 mg NEB QIDR [facility] Last Admin: 06/17/17 06:40 Dose: 200 mg Albuterol Sulfate (Ventolin 0.083% Nebulizer Soln -) 1 amp NEB Q4H PRN PRN Reason: SHORT OF BREATH/WHEEZING Last Admin: 06/17/17 06:40 Dose: 1 amp Artificial Tears (Artificial Tears) 1 drop OU DAILY [facility] Last Admin: 06/16/17 10:13 Dose: 1 drop Aspirin (Ecotrin -) 81 mg PO DAILY [facility] Last Admin: 06/17/17 10:05 Dose: 81 mg Budesonide (Pulmicort 0.25 Mg Nebulizer -) 1 amp NEB BID [facility] Last Admin: 06/16/17 22:16 Dose: 1 amp Cholestyramine Resin (Questran Light Packet -) 4 gm PO BID [facility] Last Admin: 06/16/17 22:47 Dose: 4 gm Diltiazem HCl (Cardizem Cd -) 300 mg PO DAILY [facility] Last Admin: 06/17/17 10:06 Dose: 300 mg Folic Acid (Folic Acid -) 1 mg PO DAILY [facility] Last Admin: 06/17/17 10:06 Dose: 1 mg Heparin Sodium (Porcine) (Heparin -) 5,000 unit SQ BID [facility] Last Admin: 06/17/17 10:06 Dose: Not Given Lactobacillus Acidophilus (Bacid -) 1 tab PO BID [facility] Last Admin: 06/17/17 10:05 Dose: 1 tab Levothyroxine Sodium (Synthroid -) 50 mcg PO DAILY@0700 [facility] Last Admin: 06/17/17 06:34 Dose: 50 mcg Lorazepam (Ativan -) 0.5 mg PO TID PRN PRN Reason: ANXIETY Methylprednisolone Sodium Succinate (Solu-Medrol -) 40 mg IVPB Q8H [facility] Mirtazapine (Remeron -) 15 mg PO HS [facility] Last Admin: 06/16/17 22:47 Dose: Not Given Nitroglycerin (Nitro-Bid 2% Paste -) 0.5 inch TD Q6H PRN Last Admin: 06/15/17 09:19 Dose: 0.5 inch Ranitidine HCl (Zantac -) 150 mg PO DAILY [facility] Last Admin: 06/17/17 10:06 Dose: 150 mg Thiamine HCl (Vitamin B1 -) 100 mg PO DAILY [facility] Last Admin: 06/17/17 10:06 Dose: 100 mg Valsartan (Diovan -) 320 mg PO DAILY [facility] Last Admin: 06/17/17 10:06 Dose: Not Given - Objective Vital Signs: Vital Signs Temperature 98.5 F 06/16/17 18:00 Pulse Rate 84 06/17/17 06:58 Respiratory Rate 18 06/16/17 22:00 Blood Pressure 155/100 06/17/17 06:58 O2 Sat by Pulse Oximetry (%) 95 06/16/17 21:00 Constitutional: Yes: Well Nourished, No Distress, Calm Cardiovascular: Yes: Regular Rate and Rhythm Respiratory: Yes: Regular Gastrointestinal: Yes: Normal Bowel Sounds Musculoskeletal: Yes: WNL Extremities: Yes: WNL Edema: No Peripheral Pulses WNL: Yes Neurological: Yes: Alert, Oriented Psychiatric: Yes: Alert, Oriented Labs: CBC, BMP 06/13/17 08:15 06/13/17 08:15 INR, PTT INR 1.05 (0.82-1.09) 06/08/17 12:30 Problem List - Problems (1) Chronic respiratory failure with hypoxia Code(s): J96.11 - CHRONIC RESPIRATORY FAILURE WITH HYPOXIA (2) COPD (chronic obstructive pulmonary disease) Assessment/Plan: Trach mask, decreased to 50%, keep O2 >90% -IV steroids change to Q8H -Neb tx -Mucomyst -suction PRN -started on pulmicort BID Code(s): J44.9 - CHRONIC OBSTRUCTIVE PULMONARY DISEASE, UNSPECIFIED Qualifiers : COPD type: COPD with acute exacerbation Qualified Code(s): J44.1 - Chronic obstructive pulmonary disease with (acute) exacerbation (3) Diarrhea Assessment/Plan: likely due to history of c diff Cdiff negative stool OB,O&P,culture pending add probiotics BID and cholestyramine GI consult avoid apple or prune juice Code(s): R19.7 - DIARRHEA, UNSPECIFIED Qualifiers: Diarrhea type: unspecified type Qualified Code(s): R19.7 - Diarrhea , unspecified (4) Tracheostomy dependence Assessment/Plan: -seen by ENT -Tracheostomy changed to #7 to cuffless trach with inner cannula, patient feels her breathing is improved -check SPo2 on 50% T/M Code(s): Z93.0 - TRACHEOSTOMY STATUS Assessment/Plan -Stool collection for O&P,culture and OB -pulmonary,ID and cardiology consult appreciated -still IV steroids- taper to Q8H -neb tx -Trach mask with humidification -GI consult -pulmicort BID -Probiotic and cholestyramine -Increase FiO2 to 70% to maintain sPO2 >90% -Bactroban BID for MRSA -tracheostomy changed by ENT -Physical therapy eval -BP needs to be at goal before discharge -d/c to rehab once stable
[2017-06-17] MEDS: ARTIFICIAL TEARS (POLYVINYL ALCOHOL 1.4%) OPTH DROPS OU SCH (13:05)
[2017-06-17] MEDS: CHOLESTYRAMINE/ASPARTAME 4 GM PACKET PO SCH ×2 (13:05→21:53)
--- NOTE | 2017-06-17 14:51 | PN ---
Progress Note, Physician History of Present Illness: pulmonary alert,feeling better,-resp distress - Current Medication List Current Medications: Active Medications Acetaminophen (Tylenol -) 650 mg PO Q4H PRN PRN Reason: FEVER OR PAIN Last Admin: 06/16/17 06:30 Dose: 650 mg Acetylcysteine (Mucomyst 20 Oral / Inh Use Only*) 200 mg NEB QIDR [facility] Last Admin: 06/17/17 11:39 Dose: 200 mg Albuterol Sulfate (Ventolin 0.083% Nebulizer Soln -) 1 amp NEB Q4H PRN PRN Reason: SHORT OF BREATH/WHEEZING Last Admin: 06/17/17 11:40 Dose: 1 amp Artificial Tears (Artificial Tears) 1 drop OU DAILY [facility] Last Admin: 06/17/17 13:05 Dose: 1 drop Aspirin (Ecotrin -) 81 mg PO DAILY [facility] Last Admin: 06/17/17 10:05 Dose: 81 mg Budesonide (Pulmicort 0.25 Mg Nebulizer -) 1 amp NEB BID [facility] Last Admin: 06/17/17 10:00 Dose: 1 amp Cholestyramine Resin (Questran Light Packet -) 4 gm PO BID [facility] Last Admin: 06/17/17 13:05 Dose: 4 gm Diltiazem HCl (Cardizem Cd -) 300 mg PO DAILY [facility] Last Admin: 06/17/17 10:06 Dose: 300 mg Folic Acid (Folic Acid -) 1 mg PO DAILY [facility] Last Admin: 06/17/17 10:06 Dose: 1 mg Heparin Sodium (Porcine) (Heparin -) 5,000 unit SQ BID [facility] Last Admin: 06/17/17 10:06 Dose: Not Given Lactobacillus Acidophilus (Bacid -) 1 tab PO BID [facility] Last Admin: 06/17/17 10:05 Dose: 1 tab Levothyroxine Sodium (Synthroid -) 50 mcg PO DAILY@0700 [facility] Last Admin: 06/17/17 06:34 Dose: 50 mcg Lorazepam (Ativan -) 0.5 mg PO TID PRN PRN Reason: ANXIETY Methylprednisolone Sodium Succinate (Solu-Medrol -) 40 mg IVPB Q8H-IV [facility] Mirtazapine (Remeron -) 15 mg PO HS [facility] Last Admin: 06/16/17 22:47 Dose: Not Given Nitroglycerin (Nitro-Bid 2% Paste -) 0.5 inch TD Q6H PRN Last Admin: 06/15/17 09:19 Dose: 0.5 inch Ranitidine HCl (Zantac -) 150 mg PO DAILY [facility] Last Admin: 06/17/17 10:06 Dose: 150 mg Thiamine HCl (Vitamin B1 -) 100 mg PO DAILY [facility] Last Admin: 06/17/17 10:06 Dose: 100 mg Valsartan (Diovan -) 320 mg PO DAILY [facility] Last Admin: 06/17/17 10:06 Dose: Not Given - Objective Vital Signs: Vital Signs Temperature 98.5 F 06/16/17 18:00 Pulse Rate 88 06/17/17 10:00 Respiratory Rate 18 06/16/17 22:00 Blood Pressure 155/100 06/17/17 06:58 O2 Sat by Pulse Oximetry (%) 95 06/17/17 10:00 Constitutional: Yes: Calm, Thin Eyes: Yes: WNL HENT: Yes: WNL Neck: Yes: Supple (trach) Cardiovascular: Yes: Pulse Irregular, S1, S2 Respiratory: Yes: Diminished Gastrointestinal: Yes: Normal Bowel Sounds, Soft Extremities: Yes: WNL Edema: No Labs: CBC, BMP Assessment/Plan Problem List - Problems (1) COPD exacerbation Code(s): J44.1 - CHRONIC OBSTRUCTIVE PULMONARY DISEASE W (ACUTE) EXACERBATION (2) Chronic respiratory failure with hypoxia Code(s): J96.11 - CHRONIC RESPIRATORY FAILURE WITH HYPOXIA (3) A-fib Code(s): I48.91 - UNSPECIFIED ATRIAL FIBRILLATION (4) Chest pain Code(s): R07.9 - CHEST PAIN, UNSPECIFIED Assessment/Plan Acute COPD Exacerbation improving Chronic Hypoxic Respiratory Failure s/p trach Atrial Fibrillation HTN - steroid taper - inhaled bronchodilators - O2 to keep SpO2 >90% - rate controlled - DVT prophylaxis - pain control - mucomyst - tracheal suctioning DR RAGLAND
--- NOTE | 2017-06-17 15:02 | PN ---
Progress Note, Physician Chief Complaint: Events noted Dyspnea improving History of Present Illness: Patient was seen and examined. Awake and alert. Chart was reviewed Denies chest discomfort - Current Medication List Current Medications: Active Medications Acetaminophen (Tylenol -) 650 mg PO Q4H PRN PRN Reason: FEVER OR PAIN Last Admin: 06/16/17 06:30 Dose: 650 mg Acetylcysteine (Mucomyst 20 Oral / Inh Use Only*) 200 mg NEB QIDR [facility] Last Admin: 06/17/17 11:39 Dose: 200 mg Albuterol Sulfate (Ventolin 0.083% Nebulizer Soln -) 1 amp NEB Q4H PRN PRN Reason: SHORT OF BREATH/WHEEZING Last Admin: 06/17/17 11:40 Dose: 1 amp Artificial Tears (Artificial Tears) 1 drop OU DAILY [facility] Last Admin: 06/17/17 13:05 Dose: 1 drop Aspirin (Ecotrin -) 81 mg PO DAILY [facility] Last Admin: 06/17/17 10:05 Dose: 81 mg Budesonide (Pulmicort 0.25 Mg Nebulizer -) 1 amp NEB BID [facility] Last Admin: 06/17/17 10:00 Dose: 1 amp Cholestyramine Resin (Questran Light Packet -) 4 gm PO BID [facility] Last Admin: 06/17/17 13:05 Dose: 4 gm Diltiazem HCl (Cardizem Cd -) 300 mg PO DAILY [facility] Last Admin: 06/17/17 10:06 Dose: 300 mg Folic Acid (Folic Acid -) 1 mg PO DAILY [facility] Last Admin: 06/17/17 10:06 Dose: 1 mg Heparin Sodium (Porcine) (Heparin -) 5,000 unit SQ BID [facility] Last Admin: 06/17/17 10:06 Dose: Not Given Lactobacillus Acidophilus (Bacid -) 1 tab PO BID [facility] Last Admin: 06/17/17 10:05 Dose: 1 tab Levothyroxine Sodium (Synthroid -) 50 mcg PO DAILY@0700 [facility] Last Admin: 06/17/17 06:34 Dose: 50 mcg Lorazepam (Ativan -) 0.5 mg PO TID PRN PRN Reason: ANXIETY Methylprednisolone Sodium Succinate (Solu-Medrol -) 40 mg IVPB Q8H-IV [facility] Mirtazapine (Remeron -) 15 mg PO HS [facility] Last Admin: 06/16/17 22:47 Dose: Not Given Nitroglycerin (Nitro-Bid 2% Paste -) 0.5 inch TD Q6H PRN Last Admin: 06/15/17 09:19 Dose: 0.5 inch Ranitidine HCl (Zantac -) 150 mg PO DAILY [facility] Last Admin: 06/17/17 10:06 Dose: 150 mg Thiamine HCl (Vitamin B1 -) 100 mg PO DAILY [facility] Last Admin: 06/17/17 10:06 Dose: 100 mg Valsartan (Diovan -) 320 mg PO DAILY [facility] Last Admin: 06/17/17 10:06 Dose: Not Given - Objective Vital Signs: Vital Signs Temperature 98.5 F 06/16/17 18:00 Pulse Rate 88 06/17/17 10:00 Respiratory Rate 18 06/16/17 22:00 Blood Pressure 155/100 06/17/17 06:58 O2 Sat by Pulse Oximetry (%) 95 06/17/17 10:00 Cardiovascular: Yes: Regular Rate and Rhythm, S1, S2 Respiratory: Yes: Diminished Gastrointestinal: Yes: Normal Bowel Sounds, Soft. No: Tenderness Edema: No Problem List - Problems (1) Asthma exacerbation in COPD Code(s): J44.1 - CHRONIC OBSTRUCTIVE PULMONARY DISEASE W (ACUTE) EXACERBATION J45.901 - UNSPECIFIED ASTHMA WITH (ACUTE) EXACERBATION (2) Chronic respiratory failure with hypoxia Code(s): J96.11 - CHRONIC RESPIRATORY FAILURE WITH HYPOXIA (3) A-fib Code(s): I48.91 - UNSPECIFIED ATRIAL FIBRILLATION Qualifiers: Atrial fibrillation type: paroxysmal Qualified Code(s): I48.0 - Paroxysmal atrial fibrillation (4) Acute on chronic respiratory failure with hypoxia and hypercapnia Code(s): J96.21 - ACUTE AND CHRONIC RESPIRATORY FAILURE WITH HYPOXIA J96.22 - ACUTE AND CHRONIC RESPIRATORY FAILURE WITH HYPERCAPNIA (5) COPD exacerbation Code(s): J44.1 - CHRONIC OBSTRUCTIVE PULMONARY DISEASE W (ACUTE) EXACERBATION (6) Chest pain Code(s): R07.9 - CHEST PAIN, UNSPECIFIED Qualifiers: Chest pain type: pleurodynia Qualified Code(s): R07.81 - Pleurodynia (7) Hypothyroid Code(s): E03.9 - HYPOTHYROIDISM, UNSPECIFIED Qualifiers: Hypothyroidism type: unspecified Qualified Code(s): E03.9 - Hypothyroidism, unspecified (8) Recurrent Clostridium difficile diarrhea Code(s): A04.7 - ENTEROCOLITIS DUE TO CLOSTRIDIUM DIFFICILE (9) Tracheostomy dependence Code(s): Z93.0 - TRACHEOSTOMY STATUS Assessment/Plan 1. Acute COPD Exacerbation 2. Chronic Hypoxic Respiratory Failure s/p tracheostomy 3. Paroxysmal Atrial Fibrillation/atrial tachycardia not on anticoagulation due to falls risks 4. Atypical chest pain referable to #1 5. HTN - not at goal 6. History of refractory C. Difficile Colitis 7. Hypothyroidism PLAN: 1. Continue steroids with GI protection, inhaled bronchodilators, O2 via mask and DVT prophylaxis 2. Continue ASA 81 qd and continue Cardizem CD 300 mg once a day as tolerated. Continue Valsartan 320 mg once a day. Additional medication may be needed if blood pressure remains elevated Further plans are to follow Bert Ivan MD
[2017-06-17] MEDS: ACETAMINOPHEN 325 MG TABLET (FP) PO PRN (21:52)
[2017-06-17] MEDS: MIRTAZAPINE 15 MG TABLET (FP) PO SCH (21:53)
[2017-06-18] MEDS ORDERED: MELATONIN 5 MG TABLETS PO ONE (00:15)
[2017-06-18] MEDS: methylPREDNISolone NA SUCC 40 MG/1 ML VIAL IVPB SCH ×2 (01:43→22:00)
[2017-06-18] MEDS: LEVOTHYROXINE NA 50 MCG TABLET (FP) PO SCH (06:22)
[2017-06-18] MEDS: ACETYLCYSTEINE 20% 200MG/ML 4 ML VIAL *FOR ORAL / INH USE ONLY NEB SCH ×3 (06:50→18:05)
[2017-06-18] MEDS: ALBUTEROL SO4 0.083% IH SOL 2.5 MG/3 ML VIAL.NEB. NEB PRN ×4 (06:50→19:52)
--- NOTE | 2017-06-18 08:39 | PN ---
Progress Note, Physician History of Present Illness: feeling better tapering steroids - Current Medication List Current Medications: Active Medications Acetaminophen (Tylenol -) 650 mg PO Q4H PRN PRN Reason: FEVER OR PAIN Last Admin: 06/17/17 21:52 Dose: 650 mg Acetylcysteine (Mucomyst 20 Oral / Inh Use Only*) 200 mg NEB QIDR [facility] Last Admin: 06/18/17 06:50 Dose: 200 mg Albuterol Sulfate (Ventolin 0.083% Nebulizer Soln -) 1 amp NEB Q4H PRN PRN Reason: SHORT OF BREATH/WHEEZING Last Admin: 06/18/17 06:50 Dose: 1 amp Artificial Tears (Artificial Tears) 1 drop OU DAILY [facility] Last Admin: 06/17/17 13:05 Dose: 1 drop Aspirin (Ecotrin -) 81 mg PO DAILY [facility] Last Admin: 06/17/17 10:05 Dose: 81 mg Budesonide (Pulmicort 0.25 Mg Nebulizer -) 1 amp NEB BID [facility] Last Admin: 06/17/17 22:25 Dose: 1 amp Cholestyramine Resin (Questran Light Packet -) 4 gm PO BID [facility] Last Admin: 06/17/17 21:53 Dose: 4 gm Diltiazem HCl (Cardizem Cd -) 300 mg PO DAILY [facility] Last Admin: 06/17/17 10:06 Dose: 300 mg Folic Acid (Folic Acid -) 1 mg PO DAILY [facility] Last Admin: 06/17/17 10:06 Dose: 1 mg Heparin Sodium (Porcine) (Heparin -) 5,000 unit SQ BID [facility] Last Admin: 06/17/17 21:54 Dose: Not Given Lactobacillus Acidophilus (Bacid -) 1 tab PO BID [facility] Last Admin: 06/17/17 21:53 Dose: 1 tab Levothyroxine Sodium (Synthroid -) 50 mcg PO DAILY@0700 [facility] Last Admin: 06/18/17 06:22 Dose: 50 mcg Lorazepam (Ativan -) 0.5 mg PO TID PRN PRN Reason: ANXIETY Methylprednisolone Sodium Succinate (Solu-Medrol -) 40 mg IVPB BID [facility] Mirtazapine (Remeron -) 15 mg PO HS [facility] Last Admin: 06/17/17 21:53 Dose: Not Given Nitroglycerin (Nitro-Bid 2% Paste -) 0.5 inch TD Q6H PRN Last Admin: 06/15/17 09:19 Dose: 0.5 inch Ranitidine HCl (Zantac -) 150 mg PO DAILY [facility] Last Admin: 06/17/17 10:06 Dose: 150 mg Thiamine HCl (Vitamin B1 -) 100 mg PO DAILY [facility] Last Admin: 06/17/17 10:06 Dose: 100 mg Valsartan (Diovan -) 320 mg PO DAILY [facility] Last Admin: 06/17/17 10:06 Dose: Not Given - Objective Vital Signs: Vital Signs Temperature 98 F 06/18/17 06:51 Pulse Rate 82 06/18/17 07:00 Respiratory Rate 20 06/18/17 06:51 Blood Pressure 127/66 06/18/17 06:51 O2 Sat by Pulse Oximetry (%) 100 06/18/17 07:00 Cardiovascular: Yes: Regular Rate and Rhythm Respiratory: Yes: Rhonchi, Other (trach). No: Wheezes Labs: CBC, BMP 06/13/17 08:15 06/13/17 08:15 INR, PTT INR 1.05 (0.82-1.09) 06/08/17 12:30 Problem List - Problems (1) Asthma exacerbation in COPD Assessment/Plan: NEBS IV STEROIDS TAPER TO BID PULM CONSULT NOTED OXYGEN ON TRACH Code(s): J44.1 - CHRONIC OBSTRUCTIVE PULMONARY DISEASE W (ACUTE) EXACERBATION J45.901 - UNSPECIFIED ASTHMA WITH (ACUTE) EXACERBATION (2) Acute and chronic respiratory failure with hypoxia Assessment/Plan: ABOVE Code(s): J96.21 - ACUTE AND CHRONIC RESPIRATORY FAILURE WITH HYPOXIA (3) Chest pain Assessment/Plan: RESOLVED CE NEGATIVE EKG NO ACUTE CHANGES CARDIO ON BOARD Code(s): R07.9 - CHEST PAIN, UNSPECIFIED Qualifiers: Chest pain type: pleurodynia Qualified Code(s): R07.81 - Pleurodynia (4) Hypothyroid Assessment/Plan: SAME MEDS Code(s): E03.9 - HYPOTHYROIDISM, UNSPECIFIED Qualifiers: Hypothyroidism type: unspecified Qualified Code(s): E03.9 - Hypothyroidism, unspecified
[2017-06-18 09:24] LABS: MCH 28.4 pg (25.7-33.7); MCHC 31.3 g/dl (32.0-36.0); MEAN CELL VOLUME 90.7 fl (80-96); MEAN PLT VOLUME 8.5 fl (7.5-11.1); PLATELET COUNT 321 K/MM3 (134-434); RDW 13.7 % (11.6-15.6); WHITE BLOOD COUNT 23.4 K/mm3 (4.0-10.0)
[2017-06-18] MEDS ORDERED: PT OWN MED DRAWER 7, Y5N ONE ×2 (09:28→20:28)
[2017-06-18 09:43] LABS: ALBUMIN 3.1 g/dl (3.4-5.0); CALCIUM 8.8 mg/dL (8.5-10.1); GLUCOSE,RANDOM 221 mg/dL (74-106); SGOT/AST 15 U/L (15-37)
[2017-06-18 09:45] LABS: ALK PHOS 71 U/L (45-117); BILIRUBIN,TOTAL 0.6 mg/dL (0.2-1.0); CREATININE 0.7 mg/dL (0.55-1.02); SGPT/ALT 79 U/L (12-78); TOT PROT 5.6 g/dl (6.4-8.2)
[2017-06-18] MEDS: BUDESONIDE 0.25 MG/2ML INH SUSP VIAL NEB SCH ×2 (09:45→22:07)
[2017-06-18] MEDS ORDERED: methylPREDNISolone NA SUCC 40 MG/1 ML VIAL IVPB SCH (10:00)
[2017-06-18 10:04] LABS: CO2 25 mmol/L (21-32)
[2017-06-18 10:06] LABS: ANION GAP 50 (8-16)
[2017-06-18] MEDS: FOLIC ACID 1 MG TABLET (FP) PO SCH (10:43)
[2017-06-18] MEDS: THIAMINE HCL 100 MG TABLET (FP) PO SCH (10:43)
[2017-06-18] MEDS: LACTOBACILLUS ACIDOPHILUS 1 EACH TAB (FP) PO SCH (10:43)
[2017-06-18] MEDS: ASPIRIN COATED 81 MG TABLET.EC PO SCH (10:44)
[2017-06-18] MEDS: RANITIDINE HCL 150 MG TABLET (FP) PO SCH (10:44)
[2017-06-18] MEDS: VALSARTAN 160 MG TABLET (UD) PO SCH (10:44)
[2017-06-18] MEDS: HEPARIN NA (PORCINE) 5,000 UNITS/ML 1ML VIAL SQ SCH (10:45)
[2017-06-18] MEDS: CHOLESTYRAMINE/ASPARTAME 4 GM PACKET PO SCH (10:45)
--- NOTE | 2017-06-18 11:06 | PN ---
Progress Note (short form) - Note Progress Note: Breathing feels OK. Insomnia, woke at 3 AM. Intake & Output 06/15/17 06/16/17 06/17/17 06/18/17 23:59 23:59 23:59 23:59 Intake Total 560 1320 680 240 Balance 560 1320 680 240 Last Vital Signs Temp Pulse Resp BP Pulse Ox 98 F 82 20 127/66 100 06/18/17 06:51 06/18/17 07:00 06/18/17 06:51 06/18/17 06:51 06/18/17 07:00 Active Medications Acetaminophen (Tylenol -) 650 mg PO Q4H PRN PRN Reason: FEVER OR PAIN Last Admin: 06/17/17 21:52 Dose: 650 mg Acetylcysteine (Mucomyst 20 Oral / Inh Use Only*) 200 mg NEB QIDR [facility] Last Admin: 06/18/17 06:50 Dose: 200 mg Albuterol Sulfate (Ventolin 0.083% Nebulizer Soln -) 1 amp NEB Q4H PRN PRN Reason: SHORT OF BREATH/WHEEZING Last Admin: 06/18/17 06:50 Dose: 1 amp Artificial Tears (Artificial Tears) 1 drop OU DAILY [facility] Last Admin: 06/17/17 13:05 Dose: 1 drop Aspirin (Ecotrin -) 81 mg PO DAILY [facility] Last Admin: 06/18/17 10:44 Dose: 81 mg Budesonide (Pulmicort 0.25 Mg Nebulizer -) 1 amp NEB BID [facility] Last Admin: 06/17/17 22:25 Dose: 1 amp Cholestyramine Resin (Questran Light Packet -) 4 gm PO BID [facility] Last Admin: 06/18/17 10:45 Dose: 4 gm Diltiazem HCl (Cardizem Cd -) 300 mg PO DAILY [facility] Last Admin: 06/18/17 10:45 Dose: 300 mg Folic Acid (Folic Acid -) 1 mg PO DAILY [facility] Last Admin: 06/18/17 10:43 Dose: 1 mg Heparin Sodium (Porcine) (Heparin -) 5,000 unit SQ BID [facility] Last Admin: 06/18/17 10:45 Dose: Not Given Lactobacillus Acidophilus (Bacid -) 1 tab PO BID [facility] Last Admin: 06/18/17 10:43 Dose: 1 tab Levothyroxine Sodium (Synthroid -) 50 mcg PO DAILY@0700 [facility] Last Admin: 06/18/17 06:22 Dose: 50 mcg Lorazepam (Ativan -) 0.5 mg PO TID PRN PRN Reason: ANXIETY Last Admin: 06/18/17 10:42 Dose: 0.5 mg Mirtazapine (Remeron -) 15 mg PO HS [facility] Last Admin: 06/17/17 21:53 Dose: Not Given Nitroglycerin (Nitro-Bid 2% Paste -) 0.5 inch TD Q6H PRN Last Admin: 06/15/17 09:19 Dose: 0.5 inch Prednisone (Deltasone -) 30 mg PO BID [facility] Ranitidine HCl (Zantac -) 150 mg PO DAILY [facility] Last Admin: 06/18/17 10:44 Dose: 150 mg Thiamine HCl (Vitamin B1 -) 100 mg PO DAILY [facility] Last Admin: 06/18/17 10:43 Dose: 100 mg Valsartan (Diovan -) 320 mg PO DAILY [facility] Last Admin: 06/18/17 10:44 Dose: 320 mg Constitutional: Yes: Anxious, Thin Eyes: Yes: WNL HENT: Yes: WNL Neck: Yes: Supple (trach) Cardiovascular: Yes: Pulse Irregular, S1, S2 Respiratory: Yes: scattered rhonchi Gastrointestinal: Yes: Normal Bowel Sounds, Soft Extremities: Yes: WNL Edema: No Labs: Laboratory Results - last 24 hr 06/18/17 06/18/17 06/18/17 06:21 09:00 09:00 WBC 23.4 H D RBC 4.94 Hgb 14.0 Hct 44.8 MCV 90.7 MCH 28.4 MCHC 31.3 L RDW 13.7 Plt Count 321 MPV 8.5 Neutrophils % Y Lymphocytes % Y Sodium 143 Potassium 4.5 Chloride 93 L Carbon Dioxide 25 D Anion Gap 50 H BUN 36 H D Creatinine 0.7 D Creat Clearance w eGFR > 60 POC Glucometer 176 Random Glucose 221 H D Calcium 8.8 Total Bilirubin 0.6 AST 15 D ALT 79 H D Alkaline Phosphatase 71 Total Protein 5.6 L Albumin 3.1 L Assessment/Plan Problem List - Problems (1) COPD exacerbation Code(s): J44.1 - CHRONIC OBSTRUCTIVE PULMONARY DISEASE W (ACUTE) EXACERBATION (2) Chronic respiratory failure with hypoxia Code(s): J96.11 - CHRONIC RESPIRATORY FAILURE WITH HYPOXIA (3) A-fib Code(s): I48.91 - UNSPECIFIED ATRIAL FIBRILLATION (4) Chest pain Code(s): R07.9 - CHEST PAIN, UNSPECIFIED Assessment/Plan Acute COPD Exacerbation improving Chronic Hypoxic Respiratory Failure s/p trach Atrial Fibrillation HTN - [place] of Melatonin at 10 PM - Prednisone taper - inhaled bronchodilators - O2 to keep SpO2 >90% - rate controlled - DVT prophylaxis - pain control - mucomyst - tracheal suctioning Dr Tate
[2017-06-18 11:07] LABS: PLATELET ESTIMATE ADEQUATE (NORMAL)
[2017-06-18] MEDS: oxyCODONE HCL 5 MG TABLET PO PRN (12:33)
[2017-06-18] MEDS: ARTIFICIAL TEARS (POLYVINYL ALCOHOL 1.4%) OPTH DROPS OU SCH (12:35)
--- NOTE | 2017-06-18 12:44 | PN ---
Progress Note (short form) - Note Progress Note: Chief Complaint: Events noted, notes reviewed. Complaining of persistent dyspnea and chest wall discomfort that is exacerbated with cough and inspiration History of Present Illness: Seen and examined. Events noted, notes reviewed. Complaining of persistent dyspnea and chest wall discomfort that is exacerbated with cough and inspiration - Current Medication List Current Medications Acetaminophen (Tylenol -) 650 mg PO Q4H PRN PRN Reason: FEVER OR PAIN Last Admin: 06/17/17 21:52 Dose: 650 mg Acetylcysteine (Mucomyst 20 Oral / Inh Use Only*) 200 mg NEB QIDR [facility] Last Admin: 06/18/17 11:44 Dose: 200 mg Albuterol Sulfate (Ventolin 0.083% Nebulizer Soln -) 1 amp NEB Q4H PRN PRN Reason: SHORT OF BREATH/WHEEZING Last Admin: 06/18/17 11:44 Dose: 1 amp Artificial Tears (Artificial Tears) 1 drop OU DAILY [facility] Last Admin: 06/18/17 12:35 Dose: 1 drop Aspirin (Ecotrin -) 81 mg PO DAILY [facility] Last Admin: 06/18/17 10:44 Dose: 81 mg Budesonide (Pulmicort 0.25 Mg Nebulizer -) 1 amp NEB BID [facility] Last Admin: 06/18/17 09:45 Dose: 1 amp Cholestyramine Resin (Questran Light Packet -) 4 gm PO BID [facility] Last Admin: 06/18/17 10:45 Dose: 4 gm Diltiazem HCl (Cardizem Cd -) 300 mg PO DAILY [facility] Last Admin: 06/18/17 10:45 Dose: 300 mg Folic Acid (Folic Acid -) 1 mg PO DAILY [facility] Last Admin: 06/18/17 10:43 Dose: 1 mg Heparin Sodium (Porcine) (Heparin -) 5,000 unit SQ BID [facility] Last Admin: 06/18/17 10:45 Dose: Not Given Lactobacillus Acidophilus (Bacid -) 1 tab PO BID [facility] Last Admin: 06/18/17 10:43 Dose: 1 tab Levothyroxine Sodium (Synthroid -) 50 mcg PO DAILY@0700 [facility] Last Admin: 06/18/17 06:22 Dose: 50 mcg Lorazepam (Ativan -) 0.5 mg PO TID PRN PRN Reason: ANXIETY Last Admin: 06/18/17 10:42 Dose: 0.5 mg Melatonin (Melatonin) 5 mg PO HS [facility] Mirtazapine (Remeron -) 15 mg PO HS [facility] Last Admin: 06/17/17 21:53 Dose: Not Given Nitroglycerin (Nitro-Bid 2% Paste -) 0.5 inch TD Q6H PRN Last Admin: 06/15/17 09:19 Dose: 0.5 inch Oxycodone HCl (Roxicodone -) 5 mg PO Q6H PRN Last Admin: 06/18/17 12:33 Dose: 5 mg Prednisone (Deltasone -) 30 mg PO BID [facility] Ranitidine HCl (Zantac -) 150 mg PO DAILY [facility] Last Admin: 06/18/17 10:44 Dose: 150 mg Thiamine HCl (Vitamin B1 -) 100 mg PO DAILY [facility] Last Admin: 06/18/17 10:43 Dose: 100 mg Valsartan (Diovan -) 320 mg PO DAILY [facility] Last Admin: 06/18/17 10:44 Dose: 320 mg - Objective Vital Signs: Last Vital Signs Temp Pulse Resp BP Pulse Ox 98 F 56 L 20 127/66 99 06/18/17 06:51 06/18/17 09:45 06/18/17 06:51 06/18/17 06:51 06/18/17 09:45 Intake & Output 06/15/17 06/16/17 06/17/17 06/18/17 23:59 23:59 23:59 23:59 Intake Total 560 1320 680 240 Balance 560 1320 680 240 Neck: Supple Negative JVD No Bruit Cardiovascular: S1 S2 Regular Rate and Rhythm Respiratory: Diminished Breath Sounds at the Bases Gastrointestinal: Soft Benign Normal Bowel Sounds Ext: No Edema Labs: Assessment/Plan ASSESSMENT: 1. Acute exacerbation of chronic obstructive airway disease 2. Chronic Hypoxic Respiratory Failure post tracheostomy 3. Diastolic LV dysfunction with class I NYHA classification LV congestive heart failure, compensated/euvolemic 4. Paroxysmal Atrial Fibrillation/atrial tachycardia not on anticoagulation, [id number] score of 4, high risk A/C patient 5. Chest pain syndrome, atypical for CAd angina pectoris (musculo-skeletal discomfort) 6. HTN 7. Hypothyroidism 8. History of C. Difficile Colitis PLAN: 1. Continue Cardizem CD 2. Continue Diovan 3. Continue ASA 4. Continue steroids and bronchodilators as per the primary team Kristi Hardwick MD
[2017-06-18] MEDS ORDERED: MIDAZOLAM HCL 5 MG/1 ML Single Dose Vial IVPUSH ONE (21:11)
--- NOTE | 2017-06-18 21:32 | CONSULT ---
Consult - text type - Consultation Consultation Note: PULMONARY Seen for Dr Tate Pt is a 67 y/o woman with COPD, was chronically ventilated via tracheostomy, eventually weaned to trach collar. She was moved to [facility] and placed back on mechanical ventilation for hypoxia. She had a 7.0 Portex uncuffed trach which needed to be changed to a cuffed 7.0 Portex for positive pressure ventilation. After establishing an adequate plane of sedation, the old trach was removed and a new 7.0 cuffed Portex was lubricated and inserted with ease into the trachea. The cuff was inflated and she was connected to the ventilator. She had equal chest rise and b/l breath sounds. A CXR and ABG was ordered and will be evaluated. Pulmonary consult will follow. Timothy Goodson Pulm/Critical Care [employer]
[2017-06-18] MEDS: ALBUTEROL SO4 0.083% IH SOL 2.5 MG/3 ML VIAL.NEB. NEB SCH ×4 (21:45→22:15)
[2017-06-18] MEDS ORDERED: predniSONE 10 MG TABLET (UD) PO SCH (22:00)
[2017-06-18] MEDS ORDERED: morphine CARPU-JECT 4 MG/1 ML DISP.SYRIN IVPUSH PRN (22:55)
[2017-06-18 23:39] LABS: ARTERIAL BLD GAS O2 SATURATION 99.1 % (90-98.9); ARTERIAL BLOOD GAS pH 7.42 (7.35-7.45)
[2017-06-18 23:51] LABS: ALLENS TEST POSITIVE
[2017-06-18 23:52] LABS: ART PUNCT SITE RIGHT BRACHIAL; LPM/O2% 50%; MECH. VENT. ESPRIT; PT. ON O2? YES; TYPE OF O2 MECH.VENT; VENT RATE 10; VT/PRESS 350
[2017-06-18 23:54] LABS: ARTERIAL BLOOD GAS HCO3 44.5 meq/L (22-26)
[2017-06-19] MEDS: ALBUTEROL SO4 0.083% IH SOL 2.5 MG/3 ML VIAL.NEB. NEB SCH ×5 (00:06→23:09)
[2017-06-19] MEDS: HEPARIN NA (PORCINE) 5,000 UNITS/ML 1ML VIAL SQ SCH ×3 (01:28→21:28)
[2017-06-19] MEDS: LACTOBACILLUS ACIDOPHILUS 1 EACH TAB (FP) PO SCH ×3 (01:28→21:09)
[2017-06-19] MEDS: MELATONIN 5 MG TABLETS PO SCH ×2 (01:29→21:09)
[2017-06-19] MEDS: CHOLESTYRAMINE/ASPARTAME 4 GM PACKET PO SCH ×3 (01:29→21:09)
[2017-06-19] MEDS: MIRTAZAPINE 15 MG TABLET (FP) PO SCH ×2 (01:29→21:09)
[2017-06-19] MEDS: morphine CARPU-JECT 4 MG/1 ML DISP.SYRIN IVPUSH PRN ×2 (04:03→20:30)
[2017-06-19] MEDS: methylPREDNISolone NA SUCC 40 MG/1 ML VIAL IVPB SCH ×4 (04:04→21:28)
[2017-06-19] MEDS: LEVOTHYROXINE NA 50 MCG TABLET (FP) PO SCH (06:33)
--- NOTE | 2017-06-19 08:02 | PN ---
Progress Note (short form) - Note Progress Note: Chief Complaint: Events noted, notes reviewed. Currently on the ventilator, awake and alert, complaining of persistent dyspnea and persistent chest wall discomfort that is exacerbated with cough and inspiration History of Present Illness: Seen and examined on telemetry. Events noted, notes reviewed. Currently on the ventilator, awake and alert, complaining of persistent dyspnea and persistent chest wall discomfort that is exacerbated with cough and inspiration - Current Medication List Current Medications Acetaminophen (Tylenol -) 650 mg PO Q4H PRN PRN Reason: FEVER OR PAIN Last Admin: 06/17/17 21:52 Dose: 650 mg Albuterol Sulfate (Ventolin 0.083% Nebulizer Soln -) 1 amp NEB Q4H PRN PRN Reason: SHORT OF BREATH/WHEEZING Last Admin: 06/18/17 19:52 Dose: 1 amp Albuterol Sulfate (Ventolin 0.083% Nebulizer Soln -) 1 amp NEB QIDR [facility] Last Admin: 06/19/17 06:45 Dose: 1 amp Artificial Tears (Artificial Tears) 1 drop OU DAILY [facility] Last Admin: 06/18/17 12:35 Dose: 1 drop Aspirin (Ecotrin -) 81 mg PO DAILY [facility] Last Admin: 06/18/17 10:44 Dose: 81 mg Budesonide (Pulmicort 0.25 Mg Nebulizer -) 1 amp NEB BID [facility] Last Admin: 06/18/17 22:07 Dose: 1 amp Cholestyramine Resin (Questran Light Packet -) 4 gm PO BID [facility] Last Admin: 06/19/17 01:29 Dose: Not Given Diltiazem HCl (Cardizem Cd -) 300 mg PO DAILY [facility] Last Admin: 06/18/17 10:45 Dose: 300 mg Folic Acid (Folic Acid -) 1 mg PO DAILY [facility] Last Admin: 06/18/17 10:43 Dose: 1 mg Heparin Sodium (Porcine) (Heparin -) 5,000 unit SQ BID [facility] Last Admin: 06/19/17 01:28 Dose: 5,000 unit Lactobacillus Acidophilus (Bacid -) 1 tab PO BID [facility] Last Admin: 06/19/17 01:28 Dose: Not Given Levothyroxine Sodium (Synthroid -) 50 mcg PO DAILY@0700 [facility] Last Admin: 06/19/17 06:33 Dose: Not Given Lorazepam (Ativan Injection -) 0.5 mg IVPUSH TID PRN PRN Reason: ANXIETY Melatonin (Melatonin) 5 mg PO [facility] Last Admin: 06/19/17 01:29 Dose: Not Given Methylprednisolone Sodium Succinate (Solu-Medrol -) 40 mg IVPB Q6H-IV [facility] Last Admin: 06/19/17 04:04 Dose: 40 mg Mirtazapine (Remeron -) 15 mg PO [facility] Last Admin: 06/19/17 01:29 Dose: Not Given Morphine Sulfate (Morphine Injection -) 2 mg IVPUSH Q4H PRN PRN Reason: PAIN LEVEL 1-5 Morphine Sulfate (Morphine Injection -) 4 mg IVPUSH Q4H PRN PRN Reason: PAIN LEVEL 6-10 Last Admin: 06/19/17 04:03 Dose: 4 mg Nitroglycerin (Nitro-Bid 2% Paste -) 0.5 inch TD Q6H PRN Last Admin: 06/15/17 09:19 Dose: 0.5 inch Oxycodone HCl (Roxicodone -) 5 mg PO Q6H PRN Last Admin: 06/18/17 12:33 Dose: 5 mg Ranitidine HCl (Zantac -) 150 mg PO DAILY [facility] Last Admin: 06/18/17 10:44 Dose: 150 mg Thiamine HCl (Vitamin B1 -) 100 mg PO DAILY [facility] Last Admin: 06/18/17 10:43 Dose: 100 mg Valsartan (Diovan -) 320 mg PO DAILY [facility] Last Admin: 06/18/17 10:44 Dose: 320 mg Review of Systems Cardiovascular: As noted above Respiratory: denies: Cough or Sputum Production Gastrointestinal: denies: Nausea, Vomiting, Constipation or Abdominal Discomfort Musculoskeletal: Chest Wall Tenderness Endocrine: No Symptoms Reported - Objective Vital Signs: Last Vital Signs Temp Pulse Resp BP Pulse Ox 98 F 122 H 10 L 149/83 99 06/19/17 02:00 06/19/17 02:00 06/19/17 06:32 06/19/17 02:00 06/18/17 22:30 Intake & Output 06/16/17 06/17/17 06/18/17 06/19/17 23:59 23:59 23:59 23:59 Intake Total 1320 680 490 Balance 1320 680 490 Neck: Supple Negative JVD No Bruit Cardiovascular: S1 S2 Regular Rate and Rhythm Respiratory: Diminished Breath Sounds at the Bases with Scattered Rhonchi Gastrointestinal: Soft Benign Normal Bowel Sounds Ext: No Edema Labs: CBC, BMP 06/18/17 09:00 06/18/17 09:00 Assessment/Plan ASSESSMENT: 1. Acute exacerbation of chronic obstructive airway disease, respiratory failure on ventilator via tracheostomy 2. Chronic Hypoxic Respiratory Failure post tracheostomy 3. Diastolic LV dysfunction with class I NYHA classification LV congestive heart failure, compensated/euvolemic 4. Persistent Atrial Fibrillation/atrial tachycardia not on anticoagulation, [id number] score of 4, high risk A/C patient 5. Chest pain syndrome, atypical for CAD angina pectoris (musculo-skeletal discomfort) 6. HTN 7. Hypothyroidism 8. History of C. Difficile Colitis PLAN: 1. Continue PO Cardizem CD 2. Continue PO Diovan 3. Continue ASA for now but ideally patient should be A/C considering the above noted [id number] score of 4 unless it is absolutely contraindicated 4. Continue steroids and bronchodilators as per the primary team 5. Ventilator management as per the critical care team Kristi Hardwick M.D.
[2017-06-19] MEDS: RANITIDINE HCL 150 MG TABLET (FP) PO SCH (09:26)
[2017-06-19] MEDS: VALSARTAN 160 MG TABLET (UD) PO SCH (09:27)
[2017-06-19] MEDS: FOLIC ACID 1 MG TABLET (FP) PO SCH (09:27)
[2017-06-19] MEDS: ASPIRIN COATED 81 MG TABLET.EC PO SCH (09:27)
[2017-06-19] MEDS: LORazepam 2 MG/ML SDV VIAL IVPUSH PRN ×2 (09:46→23:38)
--- NOTE | 2017-06-19 09:57 | PN ---
Progress Note, Physician History of Present Illness: HAD EPISDE OF DESAT YESTERDAY--ON VENT OVERNIGHT BETTER THIS AM--BACK ON TRACH D/W DR HERNANDEZ--MAYBE PLUGGING - Current Medication List Current Medications: Active Medications Acetaminophen (Tylenol -) 650 mg PO Q4H PRN PRN Reason: FEVER OR PAIN Last Admin: 06/17/17 21:52 Dose: 650 mg Albuterol Sulfate (Ventolin 0.083% Nebulizer Soln -) 1 amp NEB Q4H PRN PRN Reason: SHORT OF BREATH/WHEEZING Last Admin: 06/18/17 19:52 Dose: 1 amp Albuterol Sulfate (Ventolin 0.083% Nebulizer Soln -) 1 amp NEB QIDR [facility] Last Admin: 06/19/17 06:45 Dose: 1 amp Artificial Tears (Artificial Tears) 1 drop OU DAILY [facility] Last Admin: 06/18/17 12:35 Dose: 1 drop Aspirin (Ecotrin -) 81 mg PO DAILY [facility] Last Admin: 06/19/17 09:27 Dose: 81 mg Budesonide (Pulmicort 0.25 Mg Nebulizer -) 1 amp NEB BID [facility] Last Admin: 06/18/17 22:07 Dose: 1 amp Cholestyramine Resin (Questran Light Packet -) 4 gm PO BID [facility] Last Admin: 06/19/17 01:29 Dose: Not Given Diltiazem HCl (Cardizem Cd -) 300 mg PO DAILY [facility] Last Admin: 06/18/17 10:45 Dose: 300 mg Folic Acid (Folic Acid -) 1 mg PO DAILY [facility] Last Admin: 06/19/17 09:27 Dose: 1 mg Heparin Sodium (Porcine) (Heparin -) 5,000 unit SQ BID [facility] Last Admin: 06/19/17 01:28 Dose: 5,000 unit Lactobacillus Acidophilus (Bacid -) 1 tab PO BID [facility] Last Admin: 06/19/17 09:27 Dose: 1 tab Levothyroxine Sodium (Synthroid -) 50 mcg PO DAILY@0700 [facility] Last Admin: 06/19/17 06:33 Dose: Not Given Lorazepam (Ativan Injection -) 0.5 mg IVPUSH TID PRN PRN Reason: ANXIETY Last Admin: 06/19/17 09:46 Dose: 0.5 mg Melatonin (Melatonin) 5 mg PO HS [facility] Last Admin: 06/19/17 01:29 Dose: Not Given Methylprednisolone Sodium Succinate (Solu-Medrol -) 40 mg IVPB Q6H-IV [facility] Last Admin: 06/19/17 09:26 Dose: 40 mg Mirtazapine (Remeron -) 15 mg PO HS [facility] Last Admin: 06/19/17 01:29 Dose: Not Given Morphine Sulfate (Morphine Injection -) 2 mg IVPUSH Q4H PRN PRN Reason: PAIN LEVEL 1-5 Morphine Sulfate (Morphine Injection -) 4 mg IVPUSH Q4H PRN PRN Reason: PAIN LEVEL 6-10 Last Admin: 06/19/17 04:03 Dose: 4 mg Nitroglycerin (Nitro-Bid 2% Paste -) 0.5 inch TD Q6H PRN Last Admin: 06/15/17 09:19 Dose: 0.5 inch Oxycodone HCl (Roxicodone -) 5 mg PO Q6H PRN Last Admin: 06/18/17 12:33 Dose: 5 mg Ranitidine HCl (Zantac -) 150 mg PO DAILY [facility] Last Admin: 06/19/17 09:26 Dose: 150 mg Thiamine HCl (Vitamin B1 -) 100 mg PO DAILY [facility] Last Admin: 06/18/17 10:43 Dose: 100 mg Valsartan (Diovan -) 320 mg PO DAILY [facility] Last Admin: 06/19/17 09:27 Dose: 320 mg - Objective Vital Signs: Vital Signs Temperature 98 F 06/19/17 02:00 Pulse Rate 122 H 06/19/17 02:00 Respiratory Rate 10 L 06/19/17 06:32 Blood Pressure 149/83 06/19/17 02:00 O2 Sat by Pulse Oximetry (%) 99 06/18/17 22:30 Respiratory: Yes: Diminished, Rhonchi, Other (TRACH) Labs: CBC, BMP 06/18/17 09:00 06/18/17 09:00 INR, PTT INR 1.05 (0.82-1.09) 06/08/17 12:30 Problem List - Problems (1) Asthma exacerbation in COPD Assessment/Plan: NEBS STEROIDS PULM CONSULT NOTED OXYGEN ON TRACH Code(s): J44.1 - CHRONIC OBSTRUCTIVE PULMONARY DISEASE W (ACUTE) EXACERBATION J45.901 - UNSPECIFIED ASTHMA WITH (ACUTE) EXACERBATION (2) Acute and chronic respiratory failure with hypoxia Assessment/Plan: ABOVE Code(s): J96.21 - ACUTE AND CHRONIC RESPIRATORY FAILURE WITH HYPOXIA (3) Chest pain Assessment/Plan: RESOLVED CE NEGATIVE EKG NO ACUTE CHANGES CARDIO ON BOARD Code(s): R07.9 - CHEST PAIN, UNSPECIFIED Qualifiers: Chest pain type: pleurodynia Qualified Code(s): R07.81 - Pleurodynia (4) Hypothyroid Assessment/Plan: SAME MEDS Code(s): E03.9 - HYPOTHYROIDISM, UNSPECIFIED Qualifiers: Hypothyroidism type: unspecified Qualified Code(s): E03.9 - Hypothyroidism, unspecified
[2017-06-19] MEDS ORDERED: METOPROLOL TARTRATE 5 MG/5 ML VIAL ONE (10:06)
--- NOTE | 2017-06-19 10:17 | PN ---
Progress Note (short form) - Note Progress Note: Events overnight noted. Required transfer to the ICU with a Trach change to a cuffed device. Now awake and alert on AC Mode of vent. CXR : Resolving basilar atelectasis Intake & Output 06/16/17 06/17/17 06/18/17 06/19/17 23:59 23:59 23:59 23:59 Intake Total 1320 680 490 Balance 1320 680 490 Last Vital Signs Temp Pulse Resp BP Pulse Ox 98 F 122 H 10 L 149/83 99 06/19/17 02:00 06/19/17 02:00 06/19/17 06:32 06/19/17 02:00 06/18/17 22:30 Active Medications Acetaminophen (Tylenol -) 650 mg PO Q4H PRN PRN Reason: FEVER OR PAIN Last Admin: 06/17/17 21:52 Dose: 650 mg Albuterol Sulfate (Ventolin 0.083% Nebulizer Soln -) 1 amp NEB Q4H PRN PRN Reason: SHORT OF BREATH/WHEEZING Last Admin: 06/18/17 19:52 Dose: 1 amp Albuterol Sulfate (Ventolin 0.083% Nebulizer Soln -) 1 amp NEB QIDR [facility] Last Admin: 06/19/17 06:45 Dose: 1 amp Artificial Tears (Artificial Tears) 1 drop OU DAILY [facility] Last Admin: 06/18/17 12:35 Dose: 1 drop Aspirin (Ecotrin -) 81 mg PO DAILY [facility] Last Admin: 06/19/17 09:27 Dose: 81 mg Budesonide (Pulmicort 0.25 Mg Nebulizer -) 1 amp NEB BID [facility] Last Admin: 06/18/17 22:07 Dose: 1 amp Cholestyramine Resin (Questran Light Packet -) 4 gm PO BID [facility] Last Admin: 06/19/17 01:29 Dose: Not Given Diltiazem HCl (Cardizem Cd -) 300 mg PO DAILY [facility] Last Admin: 06/18/17 10:45 Dose: 300 mg Folic Acid (Folic Acid -) 1 mg PO DAILY [facility] Last Admin: 06/19/17 09:27 Dose: 1 mg Heparin Sodium (Porcine) (Heparin -) 5,000 unit SQ BID [facility] Last Admin: 06/19/17 01:28 Dose: 5,000 unit Lactobacillus Acidophilus (Bacid -) 1 tab PO BID [facility] Last Admin: 06/19/17 09:27 Dose: 1 tab Levothyroxine Sodium (Synthroid -) 50 mcg PO DAILY@0700 [facility] Last Admin: 06/19/17 06:33 Dose: Not Given Lorazepam (Ativan Injection -) 0.5 mg IVPUSH TID PRN PRN Reason: ANXIETY Last Admin: 06/19/17 09:46 Dose: 0.5 mg Melatonin (Melatonin) [address] [facility] Last Admin: 06/19/17 01:29 Dose: Not Given Methylprednisolone Sodium Succinate (Solu-Medrol -) 40 mg IVPB Q6H-IV [facility] Last Admin: 06/19/17 09:26 Dose: 40 mg Mirtazapine (Remeron -) [address] [facility] Last Admin: 06/19/17 01:29 Dose: Not Given Morphine Sulfate (Morphine Injection -) 2 mg IVPUSH Q4H PRN PRN Reason: PAIN LEVEL 1-5 Morphine Sulfate (Morphine Injection -) 4 mg IVPUSH Q4H PRN PRN Reason: PAIN LEVEL 6-10 Last Admin: 06/19/17 04:03 Dose: 4 mg Nitroglycerin (Nitro-Bid 2% Paste -) 0.5 inch TD Q6H PRN Last Admin: 06/15/17 09:19 Dose: 0.5 inch Oxycodone HCl (Roxicodone -) 5 mg PO Q6H PRN Last Admin: 06/18/17 12:33 Dose: 5 mg Ranitidine HCl (Zantac -) 150 mg PO DAILY [facility] Last Admin: 06/19/17 09:26 Dose: 150 mg Thiamine HCl (Vitamin B1 -) 100 mg PO DAILY [facility] Last Admin: 06/18/17 10:43 Dose: 100 mg Valsartan (Diovan -) 320 mg PO DAILY [facility] Last Admin: 06/19/17 09:27 Dose: 320 mg Constitutional: Yes: Awake and alert, thin Eyes: Yes: WNL HENT: Yes: WNL Neck: Yes: Supple (trach) Cardiovascular: Yes: Pulse Irregular, S1, S2 Respiratory: Yes: scattered rhonchi Gastrointestinal: Yes: Normal Bowel Sounds, Soft Extremities: Yes: WNL Edema: No Labs: Laboratory Results - last 24 hr 06/18/17 06/18/17 09:00 23:35 WBC 23.4 H D RBC 4.94 Hgb 14.0 Hct 44.8 MCV 90.7 MCH 28.4 MCHC 31.3 L RDW 13.7 Plt Count 321 MPV 8.5 Neutrophils % 95.0 H Lymphocytes % 2.0 L D Monocytes % 3.0 L Differential Comment Manual diff done Platelet Estimate Adequate Puncture Site Right brachial ABG pH 7.42 ABG pCO2 at Pt Temp 70.1 H* ABG pO2 at Pt Temp 113.0 H D ABG HCO3 44.5 H* ABG O2 Sat (Measured) 99.1 H ABG O2 Content 15.5 ABG Base Excess 17.0 H* Hitesh Test Positive O2 Delivery Device Mech.vent Oxygen Flow Rate 50% Vent Mode A/c Vent Rate 10 Mechanical Rate Esprit PEEP 5.0 Pressure Support Vent 350 Assessment/Plan Problem List - Problems (1) COPD exacerbation Code(s): J44.1 - CHRONIC OBSTRUCTIVE PULMONARY DISEASE W (ACUTE) EXACERBATION (2) Chronic respiratory failure with hypoxia Code(s): J96.11 - CHRONIC RESPIRATORY FAILURE WITH HYPOXIA (3) A-fib Code(s): I48.91 - UNSPECIFIED ATRIAL FIBRILLATION (4) Chest pain Code(s): R07.9 - CHEST PAIN, UNSPECIFIED Assessment/Plan Acute COPD Exacerbation improving Chronic Hypoxic Respiratory Failure s/p trach Atrial Fibrillation HTN - Harrah Trach collar - Medrol - inhaled bronchodilators - O2 to keep SpO2 >90% - rate controlled - DVT prophylaxis - pain control - mucomyst - tracheal suctioning Dr Tate
[2017-06-19] MEDS ORDERED: METOPROLOL TARTRATE 5 MG/5 ML VIAL IVPUSH PRN (10:43)
[2017-06-19] MEDS: THIAMINE HCL 100 MG TABLET (FP) PO SCH (11:47)
[2017-06-19] MEDS: BUDESONIDE 0.25 MG/2ML INH SUSP VIAL NEB SCH ×2 (11:52→21:45)
[2017-06-19] MEDS: ARTIFICIAL TEARS (POLYVINYL ALCOHOL 1.4%) OPTH DROPS OU SCH (18:53)
[2017-06-20] MEDS: methylPREDNISolone NA SUCC 40 MG/1 ML VIAL IVPB SCH ×4 (03:49→21:33)
[2017-06-20] MEDS: ALBUTEROL SO4 0.083% IH SOL 2.5 MG/3 ML VIAL.NEB. NEB SCH ×4 (06:42→23:18)
[2017-06-20 06:47] LABS: BASOPHIL 0.1 % (0-2.0); MCH 28.1 pg (25.7-33.7); MCHC 31.1 g/dl (32.0-36.0); MEAN CELL VOLUME 90.2 fl (80-96); MEAN PLT VOLUME 9.2 fl (7.5-11.1); NEUTROPHILS 93.3 % (42.8-82.8); PLATELET COUNT 245 K/MM3 (134-434); RDW 13.7 % (11.6-15.6); WHITE BLOOD COUNT 17.1 K/mm3 (4.0-10.0)
[2017-06-20] MEDS: LEVOTHYROXINE NA 50 MCG TABLET (FP) PO SCH (06:49)
--- NOTE | 2017-06-20 06:53 | PN ---
Progress Note (short form) - Note Progress Note: Chief Complaint: Events noted, notes reviewed. Currently remains on the ventilator, lethargic but arousable, sinus rhythm is noted with frequent APC's History of Present Illness: Seen and examined in the ICU. Events noted, notes reviewed. Currently remains on the ventilator, lethargic but arousable, sinus rhythm is noted with frequent APC's As outlined in prior notes A/C is recommended unless it is absolutely contraindicated - Current Medication List Current Medications Acetaminophen (Tylenol -) 650 mg PO Q4H PRN PRN Reason: FEVER OR PAIN Last Admin: 06/17/17 21:52 Dose: 650 mg Albuterol Sulfate (Ventolin 0.083% Nebulizer Soln -) 1 amp NEB Q4H PRN PRN Reason: SHORT OF BREATH/WHEEZING Last Admin: 06/18/17 19:52 Dose: 1 amp Albuterol Sulfate (Ventolin 0.083% Nebulizer Soln -) 1 amp NEB QIDR [facility] Last Admin: 06/20/17 06:42 Dose: 1 amp Artificial Tears (Artificial Tears) 1 drop OU DAILY [facility] Last Admin: 06/19/17 18:53 Dose: Not Given Aspirin (Ecotrin -) 81 mg PO DAILY [facility] Last Admin: 06/19/17 09:27 Dose: 81 mg Budesonide (Pulmicort 0.25 Mg Nebulizer -) 1 amp NEB BID [facility] Last Admin: 06/19/17 21:45 Dose: 1 amp Cholestyramine Resin (Questran Light Packet -) 4 gm PO BID [facility] Last Admin: 06/19/17 21:09 Dose: Not Given Diltiazem HCl (Cardizem Cd -) 300 mg PO DAILY [facility] Last Admin: 06/19/17 11:47 Dose: 300 mg Folic Acid (Folic Acid -) 1 mg PO DAILY [facility] Last Admin: 06/19/17 09:27 Dose: 1 mg Heparin Sodium (Porcine) (Heparin -) 5,000 unit SQ BID [facility] Last Admin: 06/19/17 21:28 Dose: 5,000 unit Lactobacillus Acidophilus (Bacid -) 1 tab PO BID [facility] Last Admin: 06/19/17 21:09 Dose: Not Given Levothyroxine Sodium (Synthroid -) 50 mcg PO DAILY@0700 [facility] Last Admin: 06/20/17 06:49 Dose: Not Given Lorazepam (Ativan Injection -) 0.5 mg IVPUSH TID PRN PRN Reason: ANXIETY Last Admin: 06/19/17 23:38 Dose: 0.5 mg Melatonin (Melatonin) 5 mg PO [facility] Last Admin: 06/19/17 21:09 Dose: Not Given Methylprednisolone Sodium Succinate (Solu-Medrol -) 40 mg IVPB Q6H-IV [facility] Last Admin: 06/20/17 03:49 Dose: 40 mg Metoprolol Tartrate (Lopressor Injection -) 5 mg IVPUSH Q4H PRN PRN Reason: HYPERTENSION Last Admin: 06/19/17 23:37 Dose: 5 mg Mirtazapine (Remeron -) 15 mg PO [facility] Last Admin: 06/19/17 21:09 Dose: Not Given Morphine Sulfate (Morphine Injection -) 2 mg IVPUSH Q4H PRN PRN Reason: PAIN LEVEL 1-5 Morphine Sulfate (Morphine Injection -) 4 mg IVPUSH Q4H PRN PRN Reason: PAIN LEVEL 6-10 Last Admin: 06/19/17 20:30 Dose: 4 mg Nitroglycerin (Nitro-Bid 2% Paste -) 0.5 inch TD Q6H PRN Last Admin: 06/15/17 09:19 Dose: 0.5 inch Oxycodone HCl (Roxicodone -) 5 mg PO Q6H PRN Last Admin: 06/18/17 12:33 Dose: 5 mg Ranitidine HCl (Zantac -) 150 mg PO DAILY [facility] Last Admin: 06/19/17 09:26 Dose: 150 mg Thiamine HCl (Vitamin B1 -) 100 mg PO DAILY [facility] Last Admin: 06/19/17 11:47 Dose: 100 mg Valsartan (Diovan -) 320 mg PO DAILY [facility] Last Admin: 06/19/17 09:27 Dose: 320 mg Review of Systems Cardiovascular: As noted above Respiratory: denies: Cough or Sputum Production Gastrointestinal: denies: Nausea, Vomiting, Constipation or Abdominal Discomfort Musculoskeletal: Chest Wall Tenderness Endocrine: No Symptoms Reported - Objective Vital Signs: Last Vital Signs Temp Pulse Resp BP Pulse Ox 98.3 F 73 10 L 136/98 99 06/20/17 05:00 06/20/17 05:00 06/20/17 06:41 06/20/17 05:00 06/19/17 20:12 Intake & Output 06/17/17 06/18/17 06/19/17 06/20/17 23:59 23:59 23:59 23:59 Intake Total 680 490 150 Balance 680 490 150 Neck: Supple Negative JVD No Bruit Cardiovascular: S1 S2 Regular Rate and Rhythm Respiratory: Diminished Breath Sounds at the Bases with Scattered Rhonchi Gastrointestinal: Soft Benign Normal Bowel Sounds Ext: No Edema Labs: CBC, BMP 06/18/17 09:00 06/18/17 09:00 Blood test from this AM pending Assessment/Plan ASSESSMENT: 1. Acute exacerbation of chronic obstructive airway disease, respiratory failure on ventilator via tracheostomy 2. Chronic Hypoxic Respiratory Failure post tracheostomy 3. Diastolic LV dysfunction with class I NYHA classification LV congestive heart failure, compensated/euvolemic 4. Paroxysmal Atrial Fibrillation/atrial tachycardia not on anticoagulation, [id number] score of 4, high risk A/C patient 5. Chest pain syndrome, atypical for CAD angina pectoris (musculo-skeletal discomfort) 6. HTN 7. Hypothyroidism 8. History of C. Difficile Colitis PLAN: 1. Continue PO Cardizem CD 2. Continue PO Diovan 3. Continue ASA for now but ideally patient should be A/C considering the above noted [id number] score of 4 unless it is absolutely contraindicated 4. Continue steroids and bronchodilators as per the primary team 5. Ventilator management as per the critical care team Kristi Hardwick M.D.
[2017-06-20 07:15] LABS: ALBUMIN 2.7 g/dl (3.4-5.0); ANION GAP 5 (8-16); CALCIUM 8.4 mg/dL (8.5-10.1); CO2 43 mmol/L (21-32); GLUCOSE,RANDOM 176 mg/dL (74-106)
[2017-06-20 07:18] LABS: ALK PHOS 58 U/L (45-117); BILIRUBIN,TOTAL 0.6 mg/dL (0.2-1.0); CREATININE 0.6 mg/dL (0.55-1.02); SGOT/AST 30 U/L (15-37); SGPT/ALT 112 U/L (12-78); TOT PROT 4.7 g/dl (6.4-8.2)
[2017-06-20] MEDS: HEPARIN NA (PORCINE) 5,000 UNITS/ML 1ML VIAL SQ SCH ×2 (09:43→21:34)
[2017-06-20] MEDS: CHOLESTYRAMINE/ASPARTAME 4 GM PACKET PO SCH ×2 (09:44→21:35)
[2017-06-20] MEDS: FOLIC ACID 1 MG TABLET (FP) PO SCH (09:44)
[2017-06-20] MEDS: THIAMINE HCL 100 MG TABLET (FP) PO SCH (09:44)
[2017-06-20] MEDS: ARTIFICIAL TEARS (POLYVINYL ALCOHOL 1.4%) OPTH DROPS OU SCH (09:56)
[2017-06-20] MEDS ORDERED: PT OWN MED DRAWER 7, Y5N ONE ×2 (09:58→10:38)
[2017-06-20] MEDS ORDERED: LEVOTHYROXINE SODIUM 100 MCG VIAL IVPUSH ONE (10:00)
[2017-06-20] MEDS: BUDESONIDE 0.25 MG/2ML INH SUSP VIAL NEB SCH ×2 (10:54→22:30)
[2017-06-20] MEDS: VALSARTAN 160 MG TABLET (UD) PO SCH (11:00)
[2017-06-20] MEDS: LACTOBACILLUS ACIDOPHILUS 1 EACH TAB (FP) PO SCH ×2 (11:00→21:34)
[2017-06-20] MEDS: ASPIRIN COATED 81 MG TABLET.EC PO SCH (11:00)
[2017-06-20] MEDS: RANITIDINE HCL 150 MG TABLET (FP) PO SCH (11:00)
--- NOTE | 2017-06-20 13:48 | PN ---
Teaching Attending Note Name of Resident: Wagner Solis ATTENDING PHYSICIAN STATEMENT I saw and evaluated the patient. I reviewed the resident's note and discussed the case with the resident. I agree with the resident's findings and plan as documented. SUBJECTIVE: Patient seen and examined in the ICU. Remains with cuffed Trache and on MV. Drowsy but arousable. No pressors Intake & Output 06/17/17 06/18/17 06/19/17 06/20/17 23:59 23:59 23:59 23:59 Intake Total 680 490 150 Balance 680 490 150 Last Vital Signs Temp Pulse Resp BP Pulse Ox 98.3 F 72 13 136/98 99 06/20/17 05:00 06/20/17 10:17 06/20/17 11:42 06/20/17 05:00 06/20/17 10:18 Active Medications Acetaminophen (Tylenol -) 650 mg PO Q4H PRN PRN Reason: FEVER OR PAIN Last Admin: 06/17/17 21:52 Dose: 650 mg Albuterol Sulfate (Ventolin 0.083% Nebulizer Soln -) 1 amp NEB Q4H PRN PRN Reason: SHORT OF BREATH/WHEEZING Last Admin: 06/18/17 19:52 Dose: 1 amp Albuterol Sulfate (Ventolin 0.083% Nebulizer Soln -) 1 amp NEB QIDR [facility] Last Admin: 06/20/17 11:04 Dose: 1 amp Artificial Tears (Artificial Tears) 1 drop OU DAILY [facility] Last Admin: 06/20/17 09:56 Dose: 1 drop Aspirin (Ecotrin -) 81 mg PO DAILY [facility] Last Admin: 06/20/17 11:00 Dose: Not Given Budesonide (Pulmicort 0.25 Mg Nebulizer -) 1 amp NEB BID [facility] Last Admin: 06/20/17 10:54 Dose: 1 amp Cholestyramine Resin (Questran Light Packet -) 4 gm PO BID [facility] Last Admin: 06/20/17 09:44 Dose: Not Given Diltiazem HCl (Cardizem Cd -) 300 mg PO DAILY [facility] Last Admin: 06/20/17 11:00 Dose: Not Given Folic Acid (Folic Acid -) 1 mg PO DAILY [facility] Last Admin: 06/20/17 09:44 Dose: Not Given Heparin Sodium (Porcine) (Heparin -) 5,000 unit SQ BID [facility] Last Admin: 06/20/17 09:43 Dose: 5,000 unit Lactobacillus Acidophilus (Bacid -) 1 tab PO BID [facility] Last Admin: 06/20/17 11:00 Dose: Not Given Levothyroxine Sodium (Synthroid -) 50 mcg PO DAILY@0700 [facility] Last Admin: 06/20/17 06:49 Dose: Not Given Lorazepam (Ativan Injection -) 0.5 mg IVPUSH TID PRN PRN Reason: ANXIETY Last Admin: 06/19/17 23:38 Dose: 0.5 mg Melatonin (Melatonin) 5 mg PO [facility] Last Admin: 06/19/17 21:09 Dose: Not Given Methylprednisolone Sodium Succinate (Solu-Medrol -) 40 mg IVPB Q6H-IV [facility] Last Admin: 06/20/17 09:43 Dose: 40 mg Metoprolol Tartrate (Lopressor Injection -) 5 mg IVPUSH Q4H PRN PRN Reason: HYPERTENSION Last Admin: 06/19/17 23:37 Dose: 5 mg Mirtazapine (Remeron -) 15 mg PO [facility] Last Admin: 06/19/17 21:09 Dose: Not Given Morphine Sulfate (Morphine Injection -) 2 mg IVPUSH Q4H PRN PRN Reason: PAIN LEVEL 1-5 Morphine Sulfate (Morphine Injection -) 4 mg IVPUSH Q4H PRN PRN Reason: PAIN LEVEL 6-10 Last Admin: 06/19/17 20:30 Dose: 4 mg Nitroglycerin (Nitro-Bid 2% Paste -) 0.5 inch TD Q6H PRN Last Admin: 06/15/17 09:19 Dose: 0.5 inch Oxycodone HCl (Roxicodone -) 5 mg PO Q6H PRN Last Admin: 06/18/17 12:33 Dose: 5 mg Ranitidine HCl (Zantac -) 150 mg PO DAILY [facility] Last Admin: 06/20/17 11:00 Dose: Not Given Thiamine HCl (Vitamin B1 -) 100 mg PO DAILY [facility] Last Admin: 06/20/17 09:44 Dose: Not Given Valsartan (Diovan -) 320 mg PO DAILY [facility] Last Admin: 06/20/17 11:00 Dose: Not Given Constitutional: Yes: Drowsy but arouseable Eyes: Yes: WNL HENT: Yes: WNL Neck: Yes: Supple (trach) Cardiovascular: Yes: Pulse Irregular, S1, S2 Respiratory: Yes: scattered rhonchi, no wheezing Gastrointestinal: Yes: Normal Bowel Sounds, Soft Extremities: Yes: WNL Edema: No Labs: Laboratory Results - last 24 hr 06/20/17 06/20/17 05:35 05:35 WBC 17.1 H RBC 4.39 Hgb 12.3 D Hct 39.6 MCV 90.2 MCH 28.1 MCHC 31.1 L RDW 13.7 Plt Count 245 D MPV 9.2 Neutrophils % 93.3 H Lymphocytes % 3.7 L D Monocytes % 2.9 L Eosinophils % 0.0 Basophils % 0.1 D Sodium 143 Potassium 4.5 Chloride 95 L Carbon Dioxide 43 H D Anion Gap 5 L BUN 49 H D Creatinine 0.6 Creat Clearance w eGFR > 60 Random Glucose 176 H D Calcium 8.4 L Total Bilirubin 0.6 AST 30 D ALT 112 H D Alkaline Phosphatase 58 Total Protein 4.7 L Albumin 2.7 L Assessment/Plan Problem List - Problems (1) COPD exacerbation Code(s): J44.1 - CHRONIC OBSTRUCTIVE PULMONARY DISEASE W (ACUTE) EXACERBATION (2) Chronic respiratory failure with hypoxia Code(s): J96.11 - CHRONIC RESPIRATORY FAILURE WITH HYPOXIA (3) A-fib Code(s): I48.91 - UNSPECIFIED ATRIAL FIBRILLATION (4) Chest pain Code(s): R07.9 - CHEST PAIN, UNSPECIFIED Assessment/Plan Acute COPD Exacerbation improving Chronic Hypoxic Respiratory Failure s/p trach Atrial Fibrillation HTN - SBTs as tolerated - Medrol - inhaled bronchodilators - O2 to keep SpO2 >90% - rate controlled - DVT prophylaxis - pain control - mucomyst - tracheal suctioning Dr Tate CCTime 35" The care of this patient involved high complexity decision making to prevent further life threatening deterioration of the patient's condition and/or to evaluate & treat vital organ system(s) failure or risk of failure.
[2017-06-20] MEDS ORDERED: METOPROLOL TARTRATE 5 MG/5 ML VIAL IVPUSH PRN (14:22)
--- NOTE | 2017-06-20 16:01 | PN ---
Progress Note, Physician History of Present Illness: patient seen and examined at bedside agitated overnight afebrile - Current Medication List Current Medications: Active Medications Acetaminophen (Tylenol -) 650 mg PO Q4H PRN PRN Reason: FEVER OR PAIN Last Admin: 06/17/17 21:52 Dose: 650 mg Albuterol Sulfate (Ventolin 0.083% Nebulizer Soln -) 1 amp NEB Q4H PRN PRN Reason: SHORT OF BREATH/WHEEZING Last Admin: 06/18/17 19:52 Dose: 1 amp Albuterol Sulfate (Ventolin 0.083% Nebulizer Soln -) 1 amp NEB QIDR [facility] Last Admin: 06/20/17 11:04 Dose: 1 amp Artificial Tears (Artificial Tears) 1 drop OU DAILY [facility] Last Admin: 06/20/17 09:56 Dose: 1 drop Aspirin (Ecotrin -) 81 mg PO DAILY [facility] Last Admin: 06/20/17 11:00 Dose: Not Given Budesonide (Pulmicort 0.25 Mg Nebulizer -) 1 amp NEB BID [facility] Last Admin: 06/20/17 10:54 Dose: 1 amp Cholestyramine Resin (Questran Light Packet -) 4 gm PO BID [facility] Last Admin: 06/20/17 09:44 Dose: Not Given Diltiazem HCl (Cardizem Cd -) 300 mg PO DAILY [facility] Last Admin: 06/20/17 11:00 Dose: Not Given Folic Acid (Folic Acid -) 1 mg PO DAILY [facility] Last Admin: 06/20/17 09:44 Dose: Not Given Heparin Sodium (Porcine) (Heparin -) 5,000 unit SQ BID [facility] Last Admin: 06/20/17 09:43 Dose: 5,000 unit Lactobacillus Acidophilus (Bacid -) 1 tab PO BID [facility] Last Admin: 06/20/17 11:00 Dose: Not Given Levothyroxine Sodium (Synthroid -) 50 mcg PO DAILY@0700 [facility] Last Admin: 06/20/17 06:49 Dose: Not Given Lorazepam (Ativan Injection -) 0.5 mg IVPUSH TID PRN PRN Reason: ANXIETY Last Admin: 06/19/17 23:38 Dose: 0.5 mg Melatonin (Melatonin) 5 mg PO HS [facility] Last Admin: 06/19/17 21:09 Dose: Not Given Methylprednisolone Sodium Succinate (Solu-Medrol -) 40 mg IVPB Q6H-IV [facility] Last Admin: 06/20/17 09:43 Dose: 40 mg Metoprolol Tartrate (Lopressor Injection -) 5 mg IVPUSH Q4H PRN PRN Reason: HYPERTENSION Mirtazapine (Remeron -) 15 mg PO HS [facility] Last Admin: 06/19/17 21:09 Dose: Not Given Morphine Sulfate (Morphine Injection -) 2 mg IVPUSH Q4H PRN PRN Reason: PAIN LEVEL 1-5 Morphine Sulfate (Morphine Injection -) 4 mg IVPUSH Q4H PRN PRN Reason: PAIN LEVEL 6-10 Last Admin: 06/19/17 20:30 Dose: 4 mg Nitroglycerin (Nitro-Bid 2% Paste -) 0.5 inch TD Q6H PRN Last Admin: 06/15/17 09:19 Dose: 0.5 inch Oxycodone HCl (Roxicodone -) 5 mg PO Q6H PRN Last Admin: 06/18/17 12:33 Dose: 5 mg Ranitidine HCl (Zantac -) 150 mg PO DAILY [facility] Last Admin: 06/20/17 11:00 Dose: Not Given Thiamine HCl (Vitamin B1 -) 100 mg PO DAILY [facility] Last Admin: 06/20/17 09:44 Dose: Not Given Valsartan (Diovan -) 320 mg PO DAILY [facility] Last Admin: 06/20/17 11:00 Dose: Not Given - Objective Vital Signs: Vital Signs Temperature 98.3 F 06/20/17 05:00 Pulse Rate 72 06/20/17 10:17 Respiratory Rate 12 06/20/17 14:02 Blood Pressure 136/98 06/20/17 05:00 O2 Sat by Pulse Oximetry (%) 99 06/20/17 10:18 Constitutional: Yes: No Distress, Cachectic, Thin Eyes: Yes: Conjunctiva Clear HENT: Yes: Other (tracheostomy in place) Cardiovascular: Yes: Regular Rate and Rhythm Respiratory: Yes: Other (scattered rhonchi some crackles no wheezing) Gastrointestinal: Yes: Soft. No: Tenderness Edema: No Neurological: Yes: Alert Psychiatric: Yes: Alert Labs: CBC, BMP 06/20/17 05:35 06/20/17 05:35 INR, PTT INR 1.05 (0.82-1.09) 06/08/17 12:30 - ....Imaging Chest X-ray: Report Reviewed, Image Reviewed Assessment/Plan 67F with multiple medical problems presents to the ICU from the floors for acute on chronic respiratory failure. Acute on chronic hypoxic respiratory failure. likely from acute on chronic COPD exacerbation Wean off ventilator continue medrol inhaled bronchodilators Keep SPO2 >90% Mucomyst pulmicort tracheal suctioning Hypothyroidism: continue synthroid Anemia: continue folic acid continue thiamine A Fib continue aspirin consider AC given [id number] score f/u Echo HTN continue diovan continue beta aric continue cardizem HLD continue cholestyramine Psych: continue remeron continue ativan PRN continue meatonin for insomnia PPX: HSQ/SCDs Zanatc PT consult when able to participate FEN: No IVF no electrolyte issues advance to soft diet CCTime 35min Case discussed with patient's sister
--- NOTE | 2017-06-20 16:23 | PN ---
Progress Note, Physician Chief Complaint: SOB History of Present Illness: NAD, in bed, on mechanical vent, was agitated overnight. BP still uncontrolled diovan increased to 320 as per cardiology still on Nitro patch as needed neb txs On IV solumedrol 40 mg Q6h got Benadryl this AM for itching? - Current Medication List Current Medications: Active Medications Acetaminophen (Tylenol -) 650 mg PO Q4H PRN PRN Reason: FEVER OR PAIN Last Admin: 06/17/17 21:52 Dose: 650 mg Albuterol Sulfate (Ventolin 0.083% Nebulizer Soln -) 1 amp NEB Q4H PRN PRN Reason: SHORT OF BREATH/WHEEZING Last Admin: 06/18/17 19:52 Dose: 1 amp Albuterol Sulfate (Ventolin 0.083% Nebulizer Soln -) 1 amp NEB QIDR [facility] Last Admin: 06/20/17 11:04 Dose: 1 amp Artificial Tears (Artificial Tears) 1 drop OU DAILY [facility] Last Admin: 06/20/17 09:56 Dose: 1 drop Aspirin (Ecotrin -) 81 mg PO DAILY [facility] Last Admin: 06/20/17 11:00 Dose: Not Given Budesonide (Pulmicort 0.25 Mg Nebulizer -) 1 amp NEB BID [facility] Last Admin: 06/20/17 10:54 Dose: 1 amp Cholestyramine Resin (Questran Light Packet -) 4 gm PO BID [facility] Last Admin: 06/20/17 09:44 Dose: Not Given Diltiazem HCl (Cardizem Cd -) 300 mg PO DAILY [facility] Last Admin: 06/20/17 11:00 Dose: Not Given Folic Acid (Folic Acid -) 1 mg PO DAILY [facility] Last Admin: 06/20/17 09:44 Dose: Not Given Heparin Sodium (Porcine) (Heparin -) 5,000 unit SQ BID [facility] Last Admin: 06/20/17 09:43 Dose: 5,000 unit Lactobacillus Acidophilus (Bacid -) 1 tab PO BID [facility] Last Admin: 06/20/17 11:00 Dose: Not Given Levothyroxine Sodium (Synthroid -) 50 mcg PO DAILY@0700 [facility] Last Admin: 06/20/17 06:49 Dose: Not Given Lorazepam (Ativan Injection -) 0.5 mg IVPUSH TID PRN PRN Reason: ANXIETY Last Admin: 06/19/17 23:38 Dose: 0.5 mg Melatonin (Melatonin) 5 mg PO [facility] Last Admin: 06/19/17 21:09 Dose: Not Given Methylprednisolone Sodium Succinate (Solu-Medrol -) 40 mg IVPB Q6H-IV [facility] Last Admin: 06/20/17 09:43 Dose: 40 mg Metoprolol Tartrate (Lopressor Injection -) 5 mg IVPUSH Q4H PRN PRN Reason: HYPERTENSION Mirtazapine (Remeron -) 15 mg PO [facility] Last Admin: 06/19/17 21:09 Dose: Not Given Morphine Sulfate (Morphine Injection -) 2 mg IVPUSH Q4H PRN PRN Reason: PAIN LEVEL 1-5 Morphine Sulfate (Morphine Injection -) 4 mg IVPUSH Q4H PRN PRN Reason: PAIN LEVEL 6-10 Last Admin: 06/19/17 20:30 Dose: 4 mg Nitroglycerin (Nitro-Bid 2% Paste -) 0.5 inch TD Q6H PRN Last Admin: 06/15/17 09:19 Dose: 0.5 inch Oxycodone HCl (Roxicodone -) 5 mg PO Q6H PRN Last Admin: 06/18/17 12:33 Dose: 5 mg Ranitidine HCl (Zantac -) 150 mg PO DAILY [facility] Last Admin: 06/20/17 11:00 Dose: Not Given Thiamine HCl (Vitamin B1 -) 100 mg PO DAILY [facility] Last Admin: 06/20/17 09:44 Dose: Not Given Valsartan (Diovan -) 320 mg PO DAILY [facility] Last Admin: 06/20/17 11:00 Dose: Not Given - Objective Vital Signs: Vital Signs Temperature 98.3 F 06/20/17 05:00 Pulse Rate 72 06/20/17 10:17 Respiratory Rate 12 06/20/17 14:02 Blood Pressure 136/98 06/20/17 05:00 O2 Sat by Pulse Oximetry (%) 99 06/20/17 10:18 Constitutional: Yes: Well Nourished, No Distress, Calm Cardiovascular: Yes: Regular Rate and Rhythm Respiratory: Yes: Mechanically Ventilated Gastrointestinal: Yes: Normal Bowel Sounds Musculoskeletal: Yes: WNL Extremities: Yes: WNL Edema: No Peripheral Pulses WNL: Yes Labs: CBC, BMP 06/20/17 05:35 06/20/17 05:35 INR, PTT INR 1.05 (0.82-1.09) 06/08/17 12:30 Problem List - Problems (1) COPD (chronic obstructive pulmonary disease) Assessment/Plan: -mech vent, wean as tolerated and as per pulmonary -IV steroids -Neb tx -Mucomyst -suction PRN -on pulmicort BID Code(s): J44.9 - CHRONIC OBSTRUCTIVE PULMONARY DISEASE, UNSPECIFIED Qualifiers : COPD type: COPD with acute exacerbation Qualified Code(s): J44.1 - Chronic obstructive pulmonary disease with (acute) exacerbation (2) Diarrhea Assessment/Plan: likely due to history of c diff Cdiff negative added probiotics BID and cholestyramine GI consult avoid apple or prune juice Code(s): R19.7 - DIARRHEA, UNSPECIFIED Qualifiers: Diarrhea type: unspecified type Qualified Code(s): R19.7 - Diarrhea , unspecified (3) Tracheostomy dependence Assessment/Plan: -seen by ENT -trach changed again on 06/18/17 to cuffed trach for mechanical ventilation Code(s): Z93.0 - TRACHEOSTOMY STATUS (4) Acute and chronic respiratory failure with hypoxia Code(s): J96.21 - ACUTE AND CHRONIC RESPIRATORY FAILURE WITH HYPOXIA Assessment/Plan on GI/CDVT prophylaxis -IV antihypertensives if needed -nitro patch if needed -also see problem list
[2017-06-20] MEDS: MELATONIN 5 MG TABLETS PO SCH (21:34)
[2017-06-20] MEDS: LORazepam 2 MG/ML SDV VIAL IVPUSH PRN (21:35)
[2017-06-20] MEDS: MIRTAZAPINE 15 MG TABLET (FP) PO SCH (21:36)
[2017-06-21] MEDS ORDERED: HEMOQUE CONTROL SOLUTION ONE (01:07)
[2017-06-21] MEDS: methylPREDNISolone NA SUCC 40 MG/1 ML VIAL IVPB SCH ×3 (04:13→21:15)
[2017-06-21 06:30] LABS: MCHC 32.6 g/dl (32.0-36.0); MEAN PLT VOLUME 9.6 fl (7.5-11.1); PLATELET COUNT 252 K/MM3 (134-434); RDW 13.4 % (11.6-15.6); WHITE BLOOD COUNT 19.2 K/mm3 (4.0-10.0)
[2017-06-21] MEDS: ALBUTEROL SO4 0.083% IH SOL 2.5 MG/3 ML VIAL.NEB. NEB SCH ×4 (06:32→23:40)
[2017-06-21] MEDS: LEVOTHYROXINE NA 50 MCG TABLET (FP) PO SCH (06:33)
[2017-06-21 06:46] LABS: INR 1.01 (0.82-1.09); PROTHROMBIN TIME (PATIENT) 11.1 SEC (9.98-11.88)
[2017-06-21 06:48] LABS: ACTIVATED PTT 23.3 SECONDS (26.9-34.4)
--- NOTE | 2017-06-21 07:11 | PN ---
Progress Note (short form) - Note Progress Note: Chief Complaint: Events noted, notes reviewed. Remains on the ventilator, awake and alert in no distress, denies any chest pain, sinus rhythm is noted with frequent APC's History of Present Illness: Seen and examined in the ICU. Events noted, notes reviewed. Remains on the ventilator, awake and alert in no distress, denies any chest pain, sinus rhythm is noted with frequent APC's As outlined in prior notes A/C is recommended unless it is absolutely contraindicated - Current Medication List Current Medications Acetaminophen (Tylenol -) 650 mg PO Q4H PRN PRN Reason: FEVER OR PAIN Last Admin: 06/17/17 21:52 Dose: 650 mg Albuterol Sulfate (Ventolin 0.083% Nebulizer Soln -) 1 amp NEB Q4H PRN PRN Reason: SHORT OF BREATH/WHEEZING Last Admin: 06/18/17 19:52 Dose: 1 amp Albuterol Sulfate (Ventolin 0.083% Nebulizer Soln -) 1 amp NEB QIDR [facility] Last Admin: 06/21/17 06:32 Dose: 1 amp Artificial Tears (Artificial Tears) 1 drop OU DAILY [facility] Last Admin: 06/20/17 09:56 Dose: 1 drop Aspirin (Ecotrin -) 81 mg PO DAILY [facility] Last Admin: 06/20/17 11:00 Dose: Not Given Budesonide (Pulmicort 0.25 Mg Nebulizer -) 1 amp NEB BID [facility] Last Admin: 06/20/17 22:30 Dose: 1 amp Cholestyramine Resin (Questran Light Packet -) 4 gm PO BID [facility] Last Admin: 06/20/17 21:35 Dose: 4 gm Diltiazem HCl (Cardizem Cd -) 300 mg PO DAILY [facility] Last Admin: 06/20/17 11:00 Dose: Not Given Folic Acid (Folic Acid -) 1 mg PO DAILY [facility] Last Admin: 06/20/17 09:44 Dose: Not Given Heparin Sodium (Porcine) (Heparin -) 5,000 unit SQ BID [facility] Last Admin: 06/20/17 21:34 Dose: 5,000 unit Lactobacillus Acidophilus (Bacid -) 1 tab PO BID [facility] Last Admin: 06/20/17 21:34 Dose: 1 tab Levothyroxine Sodium (Synthroid -) 50 mcg PO DAILY@0700 [facility] Last Admin: 06/21/17 06:33 Dose: Not Given Lorazepam (Ativan Injection -) 0.5 mg IVPUSH TID PRN PRN Reason: ANXIETY Last Admin: 06/20/17 21:35 Dose: 0.5 mg Melatonin (Melatonin) 5 mg PO [facility] Last Admin: 06/20/17 21:34 Dose: 5 mg Methylprednisolone Sodium Succinate (Solu-Medrol -) 40 mg IVPB Q6H-IV [facility] Last Admin: 06/21/17 04:13 Dose: 40 mg Metoprolol Tartrate (Lopressor Injection -) 5 mg IVPUSH Q4H PRN PRN Reason: HYPERTENSION Mirtazapine (Remeron -) 15 mg PO HS [facility] Last Admin: 06/20/17 21:36 Dose: 15 mg Morphine Sulfate (Morphine Injection -) 2 mg IVPUSH Q4H PRN PRN Reason: PAIN LEVEL 1-5 Morphine Sulfate (Morphine Injection -) 4 mg IVPUSH Q4H PRN PRN Reason: PAIN LEVEL 6-10 Last Admin: 06/19/17 20:30 Dose: 4 mg Nitroglycerin (Nitro-Bid 2% Paste -) 0.5 inch TD Q6H PRN Last Admin: 06/15/17 09:19 Dose: 0.5 inch Oxycodone HCl (Roxicodone -) 5 mg PO Q6H PRN Last Admin: 06/18/17 12:33 Dose: 5 mg Ranitidine HCl (Zantac -) 150 mg PO DAILY [facility] Last Admin: 06/20/17 11:00 Dose: Not Given Thiamine HCl (Vitamin B1 -) 100 mg PO DAILY [facility] Last Admin: 06/20/17 09:44 Dose: Not Given Valsartan (Diovan -) 320 mg PO DAILY [facility] Last Admin: 06/20/17 11:00 Dose: Not Given Review of Systems Cardiovascular: As noted above Respiratory: On ventilator Gastrointestinal: denies: Nausea, Vomiting, Constipation or Abdominal Discomfort Musculoskeletal: No Symptoms Reported Endocrine: No Symptoms Reported - Objective Vital Signs: Last Vital Signs Temp Pulse Resp BP Pulse Ox 98 F 88 13 138/69 98 06/21/17 06:00 06/21/17 06:00 06/21/17 06:50 06/21/17 06:00 06/20/17 22:08 Intake & Output 06/18/17 06/19/17 06/20/17 08/15/17 23:59 23:59 23:59 23:59 Intake Total 490 150 200 Balance 490 150 200 Neck: Supple Negative JVD No Bruit Cardiovascular: S1 S2 Regular Rate and Rhythm Respiratory: Diminished Breath Sounds at the Bases with Scattered Rhonchi Gastrointestinal: Soft Benign Normal Bowel Sounds Ext: No Edema Labs: CBC, BMP 06/21/17 05:15 BMP from this AM pending Assessment/Plan ASSESSMENT: 1. Acute exacerbation of chronic obstructive airway disease, respiratory failure on ventilator via tracheostomy 2. Chronic Hypoxic Respiratory Failure post tracheostomy 3. Diastolic LV dysfunction with class I NYHA classification LV congestive heart failure, compensated/euvolemic 4. Paroxysmal Atrial Fibrillation/atrial tachycardia not on anticoagulation, [id number] score of 4 5. Chest pain syndrome, atypical for CAD angina pectoris (musculo-skeletal discomfort) 6. HTN 7. Hypothyroidism 8. History of C. Difficile Colitis PLAN: 1. Continue PO Cardizem CD 2. Continue PO Diovan 3. Continue ASA for now but ideally patient should be A/C considering the above noted [id number] score of 4 unless it is absolutely contraindicated 4. Continue steroids and bronchodilators as per the primary team 5. Ventilator management as per the critical care team Kristi Hardwick M.D.
[2017-06-21 09:33] LABS: ALBUMIN 2.8 g/dl (3.4-5.0); ALK PHOS 72 U/L (45-117); ANION GAP 5 (8-16); BILIRUBIN,TOTAL 0.6 mg/dL (0.2-1.0); CALCIUM 8.1 mg/dL (8.5-10.1); CO2 41 mmol/L (21-32); CREATININE 0.7 mg/dL (0.55-1.02); GLUCOSE,RANDOM 154 mg/dL (74-106); MAGNESIUM 2.4 mg/dL (1.8-2.4); PHOSPHOROUS 4.8 mg/dL (2.5-4.9); SGOT/AST 78 U/L (15-37); SGPT/ALT 324 U/L (12-78)
[2017-06-21] MEDS ORDERED: PT OWN MED DRAWER 7, Y5N ONE ×2 (10:39→21:08)
[2017-06-21] MEDS: RANITIDINE HCL 150 MG TABLET (FP) PO SCH (10:57)
[2017-06-21] MEDS: ASPIRIN COATED 81 MG TABLET.EC PO SCH (10:57)
[2017-06-21] MEDS: CHOLESTYRAMINE/ASPARTAME 4 GM PACKET PO SCH ×2 (10:57→21:16)
[2017-06-21] MEDS: VALSARTAN 160 MG TABLET (UD) PO SCH (10:57)
[2017-06-21] MEDS: FOLIC ACID 1 MG TABLET (FP) PO SCH (10:57)
[2017-06-21] MEDS: LACTOBACILLUS ACIDOPHILUS 1 EACH TAB (FP) PO SCH ×2 (10:57→21:16)
[2017-06-21] MEDS: THIAMINE HCL 100 MG TABLET (FP) PO SCH (10:57)
--- NOTE | 2017-06-21 11:10 | CONSULT ---
Admitting History and Physical - Primary Care Physician PCP: Dino Lopez - Admission History of Present Illness: Pt is a 67 y/o woman with COPD, was chronically ventilated via tracheostomy, eventually weaned to trach collar, capped at [place]. She was moved to [facility] and placed back on mechanical ventilation for hypoxia. She had a 7.0 Portex uncuffed trach which was changed to a cuffed 7.0 Portex for positive pressure ventilation. She is now on a trach collar. History Source: Patient, Medical Record - Past Medical History Cardiovascular: Yes: AFIB, HTN Pulmonary: Yes: COPD, Previously Intubated, Other (RESPIRATORY FAILURE) ...: No Heme/Onc: Yes: Anemia Infectious Disease: Yes: C-Diff Endocrine: Yes: Hypothyroidism - Past Surgical History Past Surgical History: Yes: Appendectomy - Smoking History Smoking history: Former smoker Have you smoked in the past 12 months: No If you are a former smoker, when did you quit?: 2008 - Alcohol/Substance Use Hx Alcohol Use: Yes (SOCIALLY) - Social History ADL: Support Services History of Recent Travel: No History - Admission Reason For Visit: HYPOXIA\\BRONCHITIS - Diagnostics X-ray: Report Reviewed Modified Barium Swallow: Report Reviewed (mbs 2015 (-) aspiration.) - General Mental Status: Awake and Alert, Able to Follow Commands Attention: Distractible (keeps eyes closed. Says she is "depressed and it is getting worse.") Ability to Follow Directions: Good Head/Neck Control: WFL - Hearing Hearing: Normal Hearing Aide: No With Patient: No Speech Evaluation - Communication Primary Language: YAKUT Communication: Yes: Non-Communicable (on vent. Cuff deflated) - Speech Characteristics Articulation: Yes: Precise - Language/Auditory Comprehension Follows: Yes: 2 Stage Simple Commands Observation: Able to respond to yes/no queries: Yes, Comprehends Conversational Speech: Yes - Swallow Evaluation/Bedside Assessment Current Nutritional Intake: Dysphagia Pureed, Thin Liquids Dentition: Yes: Edentulous (lower), Dental Appliance Upper Facial Symmetry at Rest: Symmetrical Facial Symmetry on Retraction: Symmetrical Against Resistance Opening: Normal Against Resistance Closing: Normal Pucker Lips: Normal Smile: Normal Lingual Movement: Normal, Symmetric Lingual Speed of Movement: Normal Lingual Movement Strgth Against Opposition: Normal Lingual Movement Characteristics: Normal Velopharyngeal Movement: Normal Laryngeal Elevation: WFL Laryngeal Movement: Able to Palpate Rate of Intake: WFL Bolus Size: WFL Labial Seal: WFL Chewing: WFL (some increased sob with mastication) Oral Prep Time: WFL A-P Transit: WFL Pocketing: None Timing of Swallow: WFL Coughing/Throat Clear: No Change in Voice: No Recommendations - Speech Evaluation, Impression/Plan Impression: Unable to achieve phonation with cuff deflation and finger occlusion.Swallow is overtly functional.Pt reports being on reg,soft diet at [facility],thin liquids. - Dysphagia Impressions/Plan Dysphagia Impressions: Mild Impairment (suspected.Increased RR while chewing.) *Silent aspiration: cannot be R/O at bedside Dysphagia Treatment Plan: Chin Tuck/Down, 1/2 tsp. at a time, Elevate HOB during feed Recommendations: Modified Barium Swallow (if signs of dysphagia/aspiration), Passy Tamie Valve (when medically appropriate, with speech pathology) - Recommendations Diet Consistency: Dysphagia Minced Medication Administration: Whole with water Liquids: Thin Liquids
[2017-06-21] MEDS: ARTIFICIAL TEARS (POLYVINYL ALCOHOL 1.4%) OPTH DROPS OU SCH (11:11)
--- NOTE | 2017-06-21 12:07 | PN ---
Progress Note, Physician Chief Complaint: patient ate yesterday now on trach collar plan to transfer to floor - Current Medication List Current Medications: Active Medications Acetaminophen (Tylenol -) 650 mg PO Q4H PRN PRN Reason: FEVER OR PAIN Last Admin: 06/17/17 21:52 Dose: 650 mg Albuterol Sulfate (Ventolin 0.083% Nebulizer Soln -) 1 amp NEB Q4H PRN PRN Reason: SHORT OF BREATH/WHEEZING Last Admin: 06/18/17 19:52 Dose: 1 amp Albuterol Sulfate (Ventolin 0.083% Nebulizer Soln -) 1 amp NEB QIDR [facility] Last Admin: 06/21/17 06:32 Dose: 1 amp Artificial Tears (Artificial Tears) 1 drop OU DAILY [facility] Last Admin: 06/21/17 11:11 Dose: 1 drop Aspirin (Ecotrin -) 81 mg PO DAILY [facility] Last Admin: 06/21/17 10:57 Dose: 81 mg Budesonide (Pulmicort 0.25 Mg Nebulizer -) 1 amp NEB BID [facility] Last Admin: 06/20/17 22:30 Dose: 1 amp Cholestyramine Resin (Questran Light Packet -) 4 gm PO BID [facility] Last Admin: 06/21/17 10:57 Dose: 4 gm Diltiazem HCl (Cardizem Cd -) 300 mg PO DAILY [facility] Last Admin: 06/21/17 10:52 Dose: 300 mg Folic Acid (Folic Acid -) 1 mg PO DAILY [facility] Last Admin: 06/21/17 10:57 Dose: 1 mg Lactobacillus Acidophilus (Bacid -) 1 tab PO BID [facility] Last Admin: 06/21/17 10:57 Dose: 1 tab Levothyroxine Sodium (Synthroid -) 50 mcg PO DAILY@0700 [facility] Last Admin: 06/21/17 06:33 Dose: Not Given Lorazepam (Ativan Injection -) 0.5 mg IVPUSH TID PRN PRN Reason: ANXIETY Last Admin: 06/20/17 21:35 Dose: 0.5 mg Melatonin (Melatonin) 5 mg PO HS [facility] Last Admin: 06/20/17 21:34 Dose: 5 mg Methylprednisolone Sodium Succinate (Solu-Medrol -) 40 mg IVPB BID [facility] Metoprolol Tartrate (Lopressor Injection -) 5 mg IVPUSH Q4H PRN PRN Reason: HYPERTENSION Mirtazapine (Remeron -) 15 mg PO HS [facility] Last Admin: 06/20/17 21:36 Dose: 15 mg Morphine Sulfate (Morphine Injection -) 2 mg IVPUSH Q4H PRN PRN Reason: PAIN LEVEL 1-5 Last Admin: 06/21/17 07:23 Dose: 2 mg Nitroglycerin (Nitro-Bid 2% Paste -) 0.5 inch TD Q6H PRN Last Admin: 06/15/17 09:19 Dose: 0.5 inch Oxycodone HCl (Roxicodone -) 5 mg PO Q6H PRN Last Admin: 06/18/17 12:33 Dose: 5 mg Ranitidine HCl (Zantac -) 150 mg PO DAILY [facility] Last Admin: 06/21/17 10:57 Dose: 150 mg Thiamine HCl (Vitamin B1 -) 100 mg PO DAILY [facility] Last Admin: 06/21/17 10:57 Dose: 100 mg Valsartan (Diovan -) 320 mg PO DAILY [facility] Last Admin: 06/21/17 10:57 Dose: 320 mg - Objective Vital Signs: Vital Signs Temperature 98 F 06/21/17 06:00 Pulse Rate 88 06/21/17 10:30 Respiratory Rate 13 06/21/17 10:30 Blood Pressure 155/77 06/21/17 10:30 O2 Sat by Pulse Oximetry (%) 98 06/20/17 22:08 Constitutional: Yes: Calm, Thin Neck: Yes: Other (trach) Cardiovascular: Yes: Pulse Irregular, S1, S2 Respiratory: Yes: Rhonchi (scattered) Gastrointestinal: Yes: Normal Bowel Sounds, Soft Edema: No Labs: CBC, BMP 06/21/17 05:15 06/21/17 08:15 INR, PTT INR 1.01 (0.82-1.09) 06/21/17 05:15 Problem List - Problems (1) Chronic respiratory failure with hypoxia Assessment/Plan: s/p trach on trach collar Code(s): J96.11 - CHRONIC RESPIRATORY FAILURE WITH HYPOXIA (2) A-fib Assessment/Plan: cardizem no AC sec to fall risk on asa 81mg daily Code(s): I48.91 - UNSPECIFIED ATRIAL FIBRILLATION Qualifiers: Atrial fibrillation type: paroxysmal Qualified Code(s): I48.0 - Paroxysmal atrial fibrillation (3) COPD exacerbation Assessment/Plan: steroid taper Code(s): J44.1 - CHRONIC OBSTRUCTIVE PULMONARY DISEASE W (ACUTE) EXACERBATION (4) Hypothyroid Assessment/Plan: on synthroid Code(s): E03.9 - HYPOTHYROIDISM, UNSPECIFIED Qualifiers: Hypothyroidism type: unspecified Qualified Code(s): E03.9 - Hypothyroidism, unspecified (5) Diastolic heart failure Assessment/Plan: on diovan Code(s): I50.30 - UNSPECIFIED DIASTOLIC (CONGESTIVE) HEART FAILURE Assessment/Plan transfer to floor
[2017-06-21] MEDS: oxyCODONE HCL 5 MG TABLET PO PRN (12:15)
--- NOTE | 2017-06-21 12:20 | PN ---
Progress Note, Physician History of Present Illness: patient seen and examined at bedside no events overnight afebrile - Current Medication List Current Medications: Active Medications Acetaminophen (Tylenol -) 650 mg PO Q4H PRN PRN Reason: FEVER OR PAIN Last Admin: 06/17/17 21:52 Dose: 650 mg Albuterol Sulfate (Ventolin 0.083% Nebulizer Soln -) 1 amp NEB Q4H PRN PRN Reason: SHORT OF BREATH/WHEEZING Last Admin: 06/18/17 19:52 Dose: 1 amp Albuterol Sulfate (Ventolin 0.083% Nebulizer Soln -) 1 amp NEB QIDR [facility] Last Admin: 06/21/17 06:32 Dose: 1 amp Artificial Tears (Artificial Tears) 1 drop OU DAILY [facility] Last Admin: 06/21/17 11:11 Dose: 1 drop Aspirin (Ecotrin -) 81 mg PO DAILY [facility] Last Admin: 06/21/17 10:57 Dose: 81 mg Budesonide (Pulmicort 0.25 Mg Nebulizer -) 1 amp NEB BID [facility] Last Admin: 06/20/17 22:30 Dose: 1 amp Cholestyramine Resin (Questran Light Packet -) 4 gm PO BID [facility] Last Admin: 06/21/17 10:57 Dose: 4 gm Diltiazem HCl (Cardizem Cd -) 300 mg PO DAILY [facility] Last Admin: 06/21/17 10:52 Dose: 300 mg Folic Acid (Folic Acid -) 1 mg PO DAILY [facility] Last Admin: 06/21/17 10:57 Dose: 1 mg Lactobacillus Acidophilus (Bacid -) 1 tab PO BID [facility] Last Admin: 06/21/17 10:57 Dose: 1 tab Levothyroxine Sodium (Synthroid -) 50 mcg PO DAILY@0700 [facility] Last Admin: 06/21/17 06:33 Dose: Not Given Lorazepam (Ativan Injection -) 0.5 mg IVPUSH TID PRN PRN Reason: ANXIETY Last Admin: 06/20/17 21:35 Dose: 0.5 mg Melatonin (Melatonin) 5 mg PO [facility] Last Admin: 06/20/17 21:34 Dose: 5 mg Methylprednisolone Sodium Succinate (Solu-Medrol -) 40 mg IVPB BID [facility] Metoprolol Tartrate (Lopressor Injection -) 5 mg IVPUSH Q4H PRN PRN Reason: HYPERTENSION Mirtazapine (Remeron -) 15 mg PO HS [facility] Last Admin: 06/20/17 21:36 Dose: 15 mg Morphine Sulfate (Morphine Injection -) 2 mg IVPUSH Q4H PRN PRN Reason: PAIN LEVEL 1-5 Last Admin: 06/21/17 07:23 Dose: 2 mg Nitroglycerin (Nitro-Bid 2% Paste -) 0.5 inch TD Q6H PRN Last Admin: 06/15/17 09:19 Dose: 0.5 inch Oxycodone HCl (Roxicodone -) 5 mg PO Q6H PRN Last Admin: 06/18/17 12:33 Dose: 5 mg Ranitidine HCl (Zantac -) 150 mg PO DAILY [facility] Last Admin: 06/21/17 10:57 Dose: 150 mg Thiamine HCl (Vitamin B1 -) 100 mg PO DAILY [facility] Last Admin: 06/21/17 10:57 Dose: 100 mg Valsartan (Diovan -) 320 mg PO DAILY [facility] Last Admin: 06/21/17 10:57 Dose: 320 mg - Objective Vital Signs: Vital Signs Temperature 98 F 06/21/17 06:00 Pulse Rate 88 06/21/17 10:30 Respiratory Rate 13 06/21/17 10:30 Blood Pressure 155/77 06/21/17 10:30 O2 Sat by Pulse Oximetry (%) 98 06/20/17 22:08 Physical Exam: Constitutional: Yes: No Distress, Cachectic, Thin Eyes: Yes: Conjunctiva Clear HENT: Yes: Other (tracheostomy in place) Cardiovascular: Yes: Regular Rate and Rhythm Respiratory: Yes: Other (scattered rhonchi some crackles no wheezing) Gastrointestinal: Yes: Soft. No: Tenderness Edema: No Neurological: Yes: Alert Psychiatric: Yes: Alert Labs: CBC, BMP 06/21/17 05:15 06/21/17 08:15 INR, PTT INR 1.01 (0.82-1.09) 06/21/17 05:15 Assessment/Plan 67F with multiple medical problems presents to the ICU from the floors for acute on chronic respiratory failure. Acute on chronic hypoxic respiratory failure. likely from acute on chronic COPD exacerbation Wean off ventilator place on trach collar 40% FiO2 continue 40mg IVPB medrol but decrease from q6h to q12h inhaled bronchodilators Keep SPO2 >90% Mucomyst pulmicort tracheal suctioning Hypothyroidism: continue synthroid Anemia: continue folic acid continue thiamine transaminitis:possible from shock liver secondary to an episode oh hypotension trend LFTs A Fib continue aspirin consider AC given [id number] score-spoke to primary team and patient has a history of multiple falls. anticoagulation stopped on previous admissions f/u Echo-pending HTN continue diovan continue beta aric continue cardizem HLD continue cholestyramine Psych: continue remeron continue ativan PRN continue melatonin for insomnia PPX: HSQ/SCDs Zanat FEN: No IVF no electrolyte issues soft diet CCTime 35min Case discussed with patient's sister who is at bedside Transfer to Vent unit [address] [place] [address]
[2017-06-21] MEDS: BUDESONIDE 0.25 MG/2ML INH SUSP VIAL NEB SCH ×2 (12:23→22:30)
--- NOTE | 2017-06-21 12:27 | PN ---
Teaching Attending Note Name of Resident: Wagner Solis ATTENDING PHYSICIAN STATEMENT I saw and evaluated the patient. I reviewed the resident's note and discussed the case with the resident. I agree with the resident's findings and plan as documented. SUBJECTIVE: Patient seen and examined in the ICU. Remains with cuffed Trach and on MV. More awake and alert. No pressors. Intake & Output 06/18/17 06/19/17 06/20/17 06/21/17 23:59 23:59 23:59 23:59 Intake Total 490 150 200 Balance 490 150 200 Last Vital Signs Temp Pulse Resp BP Pulse Ox 98 F 88 13 155/77 98 06/21/17 06:00 06/21/17 10:30 06/21/17 10:30 06/21/17 10:30 06/20/17 22:08 Active Medications Acetaminophen (Tylenol -) 650 mg PO Q4H PRN PRN Reason: FEVER OR PAIN Last Admin: 06/17/17 21:52 Dose: 650 mg Albuterol Sulfate (Ventolin 0.083% Nebulizer Soln -) 1 amp NEB Q4H PRN PRN Reason: SHORT OF BREATH/WHEEZING Last Admin: 06/18/17 19:52 Dose: 1 amp Albuterol Sulfate (Ventolin 0.083% Nebulizer Soln -) 1 amp NEB QIDR [facility] Last Admin: 06/21/17 12:23 Dose: 1 amp Artificial Tears (Artificial Tears) 1 drop OU DAILY [facility] Last Admin: 06/21/17 11:11 Dose: 1 drop Aspirin (Ecotrin -) 81 mg PO DAILY [facility] Last Admin: 06/21/17 10:57 Dose: 81 mg Budesonide (Pulmicort 0.25 Mg Nebulizer -) 1 amp NEB BID [facility] Last Admin: 06/21/17 12:23 Dose: 1 amp Cholestyramine Resin (Questran Light Packet -) 4 gm PO BID [facility] Last Admin: 06/21/17 10:57 Dose: 4 gm Diltiazem HCl (Cardizem Cd -) 300 mg PO DAILY [facility] Last Admin: 06/21/17 10:52 Dose: 300 mg Folic Acid (Folic Acid -) 1 mg PO DAILY [facility] Last Admin: 06/21/17 10:57 Dose: 1 mg Lactobacillus Acidophilus (Bacid -) 1 tab PO BID [facility] Last Admin: 06/21/17 10:57 Dose: 1 tab Levothyroxine Sodium (Synthroid -) 50 mcg PO DAILY@0700 [facility] Last Admin: 06/21/17 06:33 Dose: Not Given Lorazepam (Ativan Injection -) 0.5 mg IVPUSH TID PRN PRN Reason: ANXIETY Last Admin: 06/20/17 21:35 Dose: 0.5 mg Melatonin (Melatonin) 5 mg PO [facility] Last Admin: 06/20/17 21:34 Dose: 5 mg Methylprednisolone Sodium Succinate (Solu-Medrol -) 40 mg IVPB BID [facility] Metoprolol Tartrate (Lopressor Injection -) 5 mg IVPUSH Q4H PRN PRN Reason: HYPERTENSION Mirtazapine (Remeron -) 15 mg PO HS [facility] Last Admin: 06/20/17 21:36 Dose: 15 mg Morphine Sulfate (Morphine Injection -) 2 mg IVPUSH Q4H PRN PRN Reason: PAIN LEVEL 1-5 Last Admin: 06/21/17 07:23 Dose: 2 mg Nitroglycerin (Nitro-Bid 2% Paste -) 0.5 inch TD Q6H PRN Last Admin: 06/15/17 09:19 Dose: 0.5 inch Ranitidine HCl (Zantac -) 150 mg PO DAILY [facility] Last Admin: 06/21/17 10:57 Dose: 150 mg Thiamine HCl (Vitamin B1 -) 100 mg PO DAILY [facility] Last Admin: 06/21/17 10:57 Dose: 100 mg Valsartan (Diovan -) 320 mg PO DAILY [facility] Last Admin: 06/21/17 10:57 Dose: 320 mg Constitutional: Yes: Drowsy but arouseable Eyes: Yes: WNL HENT: Yes: WNL Neck: Yes: Supple (trach) Cardiovascular: Yes: Pulse Irregular, S1, S2 Respiratory: Yes: scattered rhonchi, no wheezing Gastrointestinal: Yes: Normal Bowel Sounds, Soft Extremities: Yes: WNL Edema: No Labs: Laboratory Results - last 24 hr 06/21/17 06/21/17 06/21/17 05:15 05:15 05:15 WBC 19.2 H RBC 4.21 Hgb 12.2 Hct 37.5 MCV 89.0 MCH 29.0 MCHC 32.6 RDW 13.4 Plt Count 252 MPV 9.6 INR 1.01 PTT (Actin FS) 23.3 L D Sodium Cancelled Potassium Cancelled Chloride Cancelled Carbon Dioxide Cancelled Anion Gap Cancelled BUN Cancelled Creatinine Cancelled Creat Clearance w eGFR Cancelled Random Glucose Cancelled Calcium Cancelled Phosphorus Cancelled Magnesium Cancelled Total Bilirubin Cancelled AST Cancelled ALT Cancelled Alkaline Phosphatase Cancelled Total Protein Cancelled Albumin Cancelled 06/21/17 08:15 WBC RBC Hgb Hct MCV MCH MCHC RDW Plt Count MPV INR PTT (Actin FS) Sodium 143 Potassium 4.5 Chloride 97 L Carbon Dioxide 41 H Anion Gap 5 L BUN 45 H Creatinine 0.7 Creat Clearance w eGFR > 60 Random Glucose 154 H Calcium 8.1 L Phosphorus 4.8 D Magnesium 2.4 D Total Bilirubin 0.6 AST 78 H D ALT 324 H D Alkaline Phosphatase 72 D Total Protein 5.0 L Albumin 2.8 L Assessment/Plan Problem List - Problems (1) COPD exacerbation Code(s): J44.1 - CHRONIC OBSTRUCTIVE PULMONARY DISEASE W (ACUTE) EXACERBATION (2) Chronic respiratory failure with hypoxia Code(s): J96.11 - CHRONIC RESPIRATORY FAILURE WITH HYPOXIA (3) A-fib Code(s): I48.91 - UNSPECIFIED ATRIAL FIBRILLATION (4) Chest pain Code(s): R07.9 - CHEST PAIN, UNSPECIFIED Assessment/Plan Acute COPD Exacerbation improving Chronic Hypoxic Respiratory Failure s/p trach Atrial Fibrillation HTN - SBTs/Trach collar as tolerated - Taper Medrol - inhaled bronchodilators - O2 to keep SpO2 >90% - rate controlled - DVT prophylaxis - pain control - mucomyst - Tracheal suctioning as needed Dr Tate CCTime [id number]" The care of this patient involved high complexity decision making to prevent further life threatening deterioration of the patient's condition and/or to evaluate & treat vital organ system(s) failure or risk of failure.
[2017-06-21] MEDS: LORazepam 2 MG/ML SDV VIAL IVPUSH PRN ×2 (17:18→21:16)
[2017-06-21] MEDS ORDERED: NITROGLYCERIN 2% OINTMENT - 1GM PACKET TD PRN (19:18)
[2017-06-21] MEDS ORDERED: METOPROLOL TARTRATE 5 MG/5 ML VIAL IVPUSH PRN (19:18)
[2017-06-21] MEDS ORDERED: ALBUTEROL SO4 0.083% IH SOL 2.5 MG/3 ML VIAL.NEB. NEB PRN (19:18)
[2017-06-21] MEDS: MELATONIN 5 MG TABLETS PO SCH (21:16)
[2017-06-21] MEDS: MIRTAZAPINE 15 MG TABLET (FP) PO SCH (21:16)
[2017-06-22] MEDS: ACETAMINOPHEN 325 MG TABLET (FP) PO PRN (04:44)
[2017-06-22] MEDS: LORazepam 2 MG/ML SDV VIAL IVPUSH PRN (04:46)
[2017-06-22] MEDS: LEVOTHYROXINE NA 50 MCG TABLET (FP) PO SCH (06:19)
[2017-06-22] MEDS: ALBUTEROL SO4 0.083% IH SOL 2.5 MG/3 ML VIAL.NEB. NEB SCH ×4 (07:11→23:10)
[2017-06-22 07:33] LABS: MCH 28.4 pg (25.7-33.7); MCHC 32.2 g/dl (32.0-36.0); MEAN CELL VOLUME 88.2 fl (80-96); MEAN PLT VOLUME 9.3 fl (7.5-11.1); PLATELET COUNT 214 K/MM3 (134-434); RDW 13.4 % (11.6-15.6); WHITE BLOOD COUNT 19.8 K/mm3 (4.0-10.0)
[2017-06-22 07:58] LABS: ALBUMIN 2.6 g/dl (3.4-5.0); ALK PHOS 67 U/L (45-117); ANION GAP 6 (8-16); CO2 40 mmol/L (21-32); CREATININE 0.5 mg/dL (0.55-1.02); GLUCOSE,RANDOM 156 mg/dL (74-106); MAGNESIUM 2.2 mg/dL (1.8-2.4); PHOSPHOROUS 3.2 mg/dL (2.5-4.9); SGOT/AST 29 U/L (15-37); SGPT/ALT 239 U/L (12-78); TOT PROT 4.8 g/dl (6.4-8.2)
[2017-06-22 08:02] LABS: BILIRUBIN,TOTAL 0.7 mg/dL (0.2-1.0)
[2017-06-22] MEDS ORDERED: ASPIRIN COATED 81 MG TABLET.EC PO SCH (10:00)
[2017-06-22] MEDS: BUDESONIDE 0.25 MG/2ML INH SUSP VIAL NEB SCH ×2 (10:35→21:45)
[2017-06-22] MEDS ORDERED: PT OWN MED DRAWER 7, Y5N ONE ×3 (10:36→18:53)
--- NOTE | 2017-06-22 10:41 | PN ---
Progress Note, Physician History of Present Illness: Comfortable on chronic vent via tracheostomy. - Current Medication List Current Medications: Active Medications Acetaminophen (Tylenol -) 650 mg PO Q4H PRN PRN Reason: FEVER OR PAIN Last Admin: 06/22/17 04:44 Dose: 650 mg Albuterol Sulfate (Ventolin 0.083% Nebulizer Soln -) 1 amp NEB Q4H PRN PRN Reason: SHORT OF BREATH/WHEEZING Albuterol Sulfate (Ventolin 0.083% Nebulizer Soln -) 1 amp NEB QIDR [facility] Last Admin: 06/22/17 07:11 Dose: 1 amp Artificial Tears (Artificial Tears) 1 drop OU DAILY [facility] Aspirin (Ecotrin -) 81 mg PO DAILY [facility] Budesonide (Pulmicort 0.25 Mg Nebulizer -) 1 amp NEB BID [facility] Last Admin: 06/21/17 22:30 Dose: 1 amp Cholestyramine Resin (Questran Light Packet -) 4 gm PO BID [facility] Last Admin: 06/21/17 21:16 Dose: 4 gm Diltiazem HCl (Cardizem Cd -) 300 mg PO DAILY [facility] Folic Acid (Folic Acid -) 1 mg PO DAILY [facility] Lactobacillus Acidophilus (Bacid -) 1 tab PO BID [facility] Last Admin: 06/21/17 21:16 Dose: 1 tab Levothyroxine Sodium (Synthroid -) 50 mcg PO DAILY@0700 [facility] Last Admin: 06/22/17 06:19 Dose: 50 mcg Lorazepam (Ativan Injection -) 0.5 mg IVPUSH TID PRN PRN Reason: ANXIETY Last Admin: 06/22/17 04:46 Dose: 0.5 mg Melatonin (Melatonin) 5 mg PO [facility] Last Admin: 06/21/17 21:16 Dose: 5 mg Methylprednisolone Sodium Succinate (Solu-Medrol -) 40 mg IVPB BID [facility] Last Admin: 06/21/17 21:15 Dose: 40 mg Metoprolol Tartrate (Lopressor Injection -) 5 mg IVPUSH Q4H PRN PRN Reason: HYPERTENSION Mirtazapine (Remeron -) 15 mg PO HS [facility] Last Admin: 06/21/17 21:16 Dose: 15 mg Nitroglycerin (Nitro-Bid 2% Paste -) 0.5 inch TD Q6H PRN Oxycodone HCl (Roxicodone -) 5 mg PO Q4H PRN PRN Reason: PAIN Ranitidine HCl (Zantac -) 150 mg PO DAILY [facility] Thiamine HCl (Vitamin B1 -) 100 mg PO DAILY [facility] Valsartan (Diovan -) 320 mg PO DAILY [facility] - Objective Vital Signs: Vital Signs Temperature 97.6 F 06/22/17 06:00 Pulse Rate 76 06/22/17 06:00 Respiratory Rate 14 06/22/17 07:00 Blood Pressure 135/70 06/22/17 06:00 O2 Sat by Pulse Oximetry (%) 100 06/21/17 20:57 Constitutional: Yes: No Distress, Calm Neck: Yes: Supple Cardiovascular: Yes: Regular Rate and Rhythm Respiratory: Yes: Mechanically Ventilated, Rhonchi Gastrointestinal: Yes: Normal Bowel Sounds, Soft Edema: No Labs: CBC, BMP 06/22/17 06:10 06/22/17 06:10 INR, PTT INR 1.01 (0.82-1.09) 06/21/17 05:15 Problem List - Problems (1) Chronic respiratory failure with hypoxia Code(s): J96.11 - CHRONIC RESPIRATORY FAILURE WITH HYPOXIA (2) A-fib Code(s): I48.91 - UNSPECIFIED ATRIAL FIBRILLATION Qualifiers: Atrial fibrillation type: paroxysmal Qualified Code(s): I48.0 - Paroxysmal atrial fibrillation (3) COPD exacerbation Code(s): J44.1 - CHRONIC OBSTRUCTIVE PULMONARY DISEASE W (ACUTE) EXACERBATION (4) Chest pain Code(s): R07.9 - CHEST PAIN, UNSPECIFIED Qualifiers: Chest pain type: pleurodynia Qualified Code(s): R07.81 - Pleurodynia (5) Hypothyroid Code(s): E03.9 - HYPOTHYROIDISM, UNSPECIFIED Qualifiers: Hypothyroidism type: unspecified Qualified Code(s): E03.9 - Hypothyroidism, unspecified (6) Tracheostomy dependence Code(s): Z93.0 - TRACHEOSTOMY STATUS Assessment/Plan Echo 09/09/2015: nl LV/EF, nl RV, mild MR 1. Acute exacerbation of chronic obstructive airway disease improving 2. Chronic Hypoxic Respiratory Failure post tracheostomy 3. Diastolic LV dysfunction with class I NYHA classification LV congestive heart failure, compensated/euvolemic 4. Paroxysmal Atrial Fibrillation/atrial tachycardia not on anticoagulation, [id number] score of 4 5. Chest pain syndrome, atypical for CAD angina pectoris (musculo-skeletal discomfort) 6. HTN 7. Hypothyroidism 8. History of C. Difficile Colitis P: 1. IV medrol with GI protection, inhaled bronchodilators, O2 to keep SpO2 >90 % 2. Continue Cardizem CD 300 qd, Diovan 320 qd, Questran 4 bid, Lopressor 5 q4 prn 3. Change ASA to Eliquis 5 bid for DVT and stroke thrombophylaxis given elevated risk score, d/w resident
[2017-06-22] MEDS: LACTOBACILLUS ACIDOPHILUS 1 EACH TAB (FP) PO SCH ×2 (11:05→21:42)
[2017-06-22] MEDS: VALSARTAN 160 MG TABLET (UD) PO SCH (11:05)
[2017-06-22] MEDS: FOLIC ACID 1 MG TABLET (FP) PO SCH (11:06)
[2017-06-22] MEDS: methylPREDNISolone NA SUCC 40 MG/1 ML VIAL IVPB SCH (11:06)
[2017-06-22] MEDS: CHOLESTYRAMINE/ASPARTAME 4 GM PACKET PO SCH ×2 (11:07→21:43)
[2017-06-22] MEDS: THIAMINE HCL 100 MG TABLET (FP) PO SCH (11:07)
[2017-06-22] MEDS: RANITIDINE HCL 150 MG TABLET (FP) PO SCH (11:07)
[2017-06-22] MEDS: ARTIFICIAL TEARS (POLYVINYL ALCOHOL 1.4%) OPTH DROPS OU SCH ×2 (11:10→15:00)
--- NOTE | 2017-06-22 11:23 | HOSP ---
Subjective - Review of Symptoms Subjective: communicated to primary team recommendations made [place] cardiology for eliquis. Physical Examination Vital Signs: Vital Signs Temperature 99.1 F 06/22/17 11:03 Pulse Rate 91 H 06/22/17 11:03 Respiratory Rate 06/22/17 11:03 Blood Pressure 124/57 06/22/17 11:03 O2 Sat by Pulse Oximetry (%) 100 06/21/17 20:57 Labs: CBC, BMP 06/22/17 06:10 06/22/17 06:10
[2017-06-22] MEDS: oxyCODONE HCL 5 MG TABLET PO PRN ×2 (11:31→21:43)
--- NOTE | 2017-06-22 12:02 | PN ---
Progress Note (short form) - Note Progress Note: PULMONARY Vented on volume assist control. Awake, alert. Denies shortness of breath. Last Vital Signs Temp Pulse Resp BP Pulse Ox 99.1 F 91 H 17 124/57 100 06/22/17 11:03 06/22/17 11:03 06/22/17 11:03 06/22/17 11:03 06/21/17 20:57 Gen: vented, awake Heart: RRR Lung: decreased breath sounds at the bases Abd: soft, nontender Ext: no edema CBC, BMP 06/22/17 06:10 06/22/17 06:10 Active Medications Acetaminophen (Tylenol -) 650 mg PO Q4H PRN PRN Reason: FEVER OR PAIN Last Admin: 06/22/17 04:44 Dose: 650 mg Albuterol Sulfate (Ventolin 0.083% Nebulizer Soln -) 1 amp NEB Q4H PRN PRN Reason: SHORT OF BREATH/WHEEZING Albuterol Sulfate (Ventolin 0.083% Nebulizer Soln -) 1 amp NEB QIDR [facility] Last Admin: 06/22/17 07:11 Dose: 1 amp Artificial Tears (Artificial Tears) 1 drop OU DAILY [facility] Aspirin (Ecotrin -) 81 mg PO DAILY [facility] Last Admin: 06/22/17 11:07 Dose: 81 mg Budesonide (Pulmicort 0.25 Mg Nebulizer -) 1 amp NEB BID [facility] Last Admin: 06/21/17 22:30 Dose: 1 amp Cholestyramine Resin (Questran Light Packet -) 4 gm PO BID [facility] Last Admin: 06/22/17 11:07 Dose: 4 gm Diltiazem HCl (Cardizem Cd -) 300 mg PO DAILY [facility] Last Admin: 06/22/17 11:08 Dose: 300 mg Folic Acid (Folic Acid -) 1 mg PO DAILY [facility] Last Admin: 06/22/17 11:06 Dose: 1 mg Lactobacillus Acidophilus (Bacid -) 1 tab PO BID [facility] Last Admin: 06/22/17 11:05 Dose: 1 tab Levothyroxine Sodium (Synthroid -) 50 mcg PO DAILY@0700 [facility] Last Admin: 06/22/17 06:19 Dose: 50 mcg Lorazepam (Ativan Injection -) 0.5 mg IVPUSH TID PRN PRN Reason: ANXIETY Last Admin: 06/22/17 04:46 Dose: 0.5 mg Melatonin (Melatonin) 5 mg PO HS [facility] Last Admin: 06/21/17 21:16 Dose: 5 mg Methylprednisolone Sodium Succinate (Solu-Medrol -) 40 mg IVPB BID [facility] Last Admin: 06/22/17 11:06 Dose: 40 mg Metoprolol Tartrate (Lopressor Injection -) 5 mg IVPUSH Q4H PRN PRN Reason: HYPERTENSION Mirtazapine (Remeron -) 15 mg PO HS [facility] Last Admin: 06/21/17 21:16 Dose: 15 mg Nitroglycerin (Nitro-Bid 2% Paste -) 0.5 inch TD Q6H PRN Oxycodone HCl (Roxicodone -) 5 mg PO Q4H PRN PRN Reason: PAIN Last Admin: 06/22/17 11:31 Dose: 5 mg Ranitidine HCl (Zantac -) 150 mg PO DAILY [facility] Last Admin: 06/22/17 11:07 Dose: 150 mg Thiamine HCl (Vitamin B1 -) 100 mg PO DAILY [facility] Last Admin: 06/22/17 11:07 Dose: 100 mg Valsartan (Diovan -) 320 mg PO DAILY [facility] Last Admin: 06/22/17 11:05 Dose: 320 mg A/P Acute on Chronic Hypoxic Respiratory Failure Acute COPD Exacerbation LV Diastolic Dysfunction Paroxysmal Atrial Fibrillation HTN Hypothyroidism - medrol taper - inhaled bronchodilators - rate controlled - continue anticoagulation - spontanoeus breathing trials as tolerated - PO as tolerated - DVT/GI prophylaxis Problem List - Problems (1) COPD exacerbation Code(s): J44.1 - CHRONIC OBSTRUCTIVE PULMONARY DISEASE W (ACUTE) EXACERBATION (2) Chronic respiratory failure with hypoxia Code(s): J96.11 - CHRONIC RESPIRATORY FAILURE WITH HYPOXIA (3) A-fib Code(s): I48.91 - UNSPECIFIED ATRIAL FIBRILLATION Qualifiers: Atrial fibrillation type: paroxysmal Qualified Code(s): I48.0 - Paroxysmal atrial fibrillation (4) Chest pain Code(s): R07.9 - CHEST PAIN, UNSPECIFIED Qualifiers: Chest pain type: pleurodynia Qualified Code(s): R07.81 - Pleurodynia
--- NOTE | 2017-06-22 12:07 | PN ---
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 Selected Entries 06/20/17 06/21/17 06/21/17 20:28 02:00 06:00 Breakfast Lunch Supper 75% Temperature 98.2 F 98 F 06/21/17 06/21/17 06/21/17 10:00 14:00 18:00 Breakfast 25% 25% Lunch 50% 50% Supper Temperature 98.1 F 98.1 F 06/21/17 06/21/17 06/22/17 21:00 23:00 01:00 Breakfast Lunch Supper Temperature 98.3 F 98.1 F 97.9 F 06/22/17 06/22/17 06:00 11:03 Breakfast Lunch Supper Temperature 97.6 F 99.1 F Laboratory Tests 06/21/17 06/22/17 05:15 06:10 WBC 19.2 H 19.8 H Recommendations PMV evaluation, when indicated. Diet Consistency: Dysphagia Minced Medication Administration: Whole with water Liquids: Thin Liquids
--- NOTE | 2017-06-22 15:11 | PN ---
Progress Note, Physician Chief Complaint: SOB History of Present Illness: NAD, in bed, on mechanical vent-on SIMV mode, feeling better, tolerating current setting, on 40% BP better controlled diovan increased to 320 as per cardiology still on Nitro patch as needed neb txs On IV solumedrol 40 mg BID - Current Medication List Current Medications: Active Medications Acetaminophen (Tylenol -) 650 mg PO Q4H PRN PRN Reason: FEVER OR PAIN Last Admin: 06/22/17 04:44 Dose: 650 mg Albuterol Sulfate (Ventolin 0.083% Nebulizer Soln -) 1 amp NEB Q4H PRN PRN Reason: SHORT OF BREATH/WHEEZING Albuterol Sulfate (Ventolin 0.083% Nebulizer Soln -) 1 amp NEB QIDR [facility] Last Admin: 06/22/17 11:15 Dose: 1 amp Artificial Tears (Artificial Tears) 1 drop OU DAILY [facility] Aspirin (Ecotrin -) 81 mg PO DAILY [facility] Last Admin: 06/22/17 11:07 Dose: 81 mg Budesonide (Pulmicort 0.25 Mg Nebulizer -) 1 amp NEB BID [facility] Last Admin: 06/22/17 10:35 Dose: 1 amp Cholestyramine Resin (Questran Light Packet -) 4 gm PO BID [facility] Last Admin: 06/22/17 11:07 Dose: 4 gm Diltiazem HCl (Cardizem Cd -) 300 mg PO DAILY [facility] Last Admin: 06/22/17 11:08 Dose: 300 mg Folic Acid (Folic Acid -) 1 mg PO DAILY [facility] Last Admin: 06/22/17 11:06 Dose: 1 mg Lactobacillus Acidophilus (Bacid -) 1 tab PO BID [facility] Last Admin: 06/22/17 11:05 Dose: 1 tab Levothyroxine Sodium (Synthroid -) 50 mcg PO DAILY@0700 [facility] Last Admin: 06/22/17 06:19 Dose: 50 mcg Lorazepam (Ativan Injection -) 0.5 mg IVPUSH TID PRN PRN Reason: ANXIETY Last Admin: 06/22/17 04:46 Dose: 0.5 mg Melatonin (Melatonin) 5 mg PO HS [facility] Last Admin: 06/21/17 21:16 Dose: 5 mg Methylprednisolone Sodium Succinate (Solu-Medrol -) 40 mg IVPB BID [facility] Last Admin: 06/22/17 11:06 Dose: 40 mg Metoprolol Tartrate (Lopressor Injection -) 5 mg IVPUSH Q4H PRN PRN Reason: HYPERTENSION Mirtazapine (Remeron -) 15 mg PO HS [facility] Last Admin: 06/21/17 21:16 Dose: 15 mg Nitroglycerin (Nitro-Bid 2% Paste -) 0.5 inch TD Q6H PRN Oxycodone HCl (Roxicodone -) 5 mg PO Q4H PRN PRN Reason: PAIN Last Admin: 06/22/17 11:31 Dose: 5 mg Ranitidine HCl (Zantac -) 150 mg PO DAILY [facility] Last Admin: 06/22/17 11:07 Dose: 150 mg Thiamine HCl (Vitamin B1 -) 100 mg PO DAILY [facility] Last Admin: 06/22/17 11:07 Dose: 100 mg Valsartan (Diovan -) 320 mg PO DAILY [facility] Last Admin: 06/22/17 11:05 Dose: 320 mg - Objective Vital Signs: Vital Signs Temperature 99.1 F 06/22/17 11:03 Pulse Rate 91 H 06/22/17 11:03 Respiratory Rate 06/22/17 11:03 Blood Pressure 124/57 06/22/17 11:03 O2 Sat by Pulse Oximetry (%) 98 06/22/17 10:35 Constitutional: Yes: Well Nourished, No Distress, Calm Cardiovascular: Yes: Regular Rate and Rhythm Respiratory: Yes: Regular Gastrointestinal: Yes: Normal Bowel Sounds Musculoskeletal: Yes: WNL Extremities: Yes: WNL Edema: No Peripheral Pulses WNL: Yes Neurological: Yes: Alert, Oriented Psychiatric: Yes: Alert, Oriented Labs: CBC, BMP 06/22/17 06:10 06/22/17 06:10 INR, PTT INR 1.01 (0.82-1.09) 06/21/17 05:15 Problem List - Problems (1) COPD (chronic obstructive pulmonary disease) Assessment/Plan: -mech vent, wean as tolerated and as per pulmonary -IV steroids -Neb tx -Mucomyst -suction PRN -on pulmicort BID Code(s): J44.9 - CHRONIC OBSTRUCTIVE PULMONARY DISEASE, UNSPECIFIED Qualifiers : COPD type: COPD with acute exacerbation Qualified Code(s): J44.1 - Chronic obstructive pulmonary disease with (acute) exacerbation (2) Diarrhea Assessment/Plan: resolved Code(s): R19.7 - DIARRHEA, UNSPECIFIED Qualifiers: Diarrhea type: unspecified type Qualified Code(s): R19.7 - Diarrhea , unspecified (3) Tracheostomy dependence Assessment/Plan: -seen by ENT -trach changed again on 06/18/17 to cuffed trach for mechanical ventilation Code(s): Z93.0 - TRACHEOSTOMY STATUS (4) Acute and chronic respiratory failure with hypoxia Assessment/Plan: -on IV steroids -weaning as per pulmonary -trial of trach collar in AM? -hold PM valve for now -diet changed to dysphagia minced Code(s): J96.21 - ACUTE AND CHRONIC RESPIRATORY FAILURE WITH HYPOXIA Assessment/Plan on GI/DVT prophylaxis -IV antihypertensives if needed -nitro patch if needed -also see problem list
[2017-06-22] MEDS: LORazepam 0.5 MG TABLET PO PRN (21:42)
[2017-06-22] MEDS: MIRTAZAPINE 15 MG TABLET (FP) PO SCH (21:42)
[2017-06-22] MEDS: APIXABAN 5 MG TABLET PO SCH (21:44)
[2017-06-22] MEDS: predniSONE 20 MG TABLET (UD) PO SCH (21:47)
[2017-06-22] MEDS: MELATONIN 5 MG TABLETS PO SCH (21:48)
[2017-06-23] MEDS: LEVOTHYROXINE NA 50 MCG TABLET (FP) PO SCH (06:15)
[2017-06-23] MEDS: ACETAMINOPHEN 325 MG TABLET (FP) PO PRN (06:34)
[2017-06-23] MEDS: ALBUTEROL SO4 0.083% IH SOL 2.5 MG/3 ML VIAL.NEB. NEB SCH ×2 (06:53→12:10)
--- NOTE | 2017-06-23 10:29 | PN ---
Progress Note, Physician Chief Complaint: SOB History of Present Illness: NAD, in bed, on mechanical vent-on SIMV mode, feeling better, tolerating current setting, on 40% BP better controlled diovan increased to 320 as per cardiology still on Nitro patch as needed neb txs IV steroids switched to PO - Current Medication List Current Medications: Active Medications Acetaminophen (Tylenol -) 650 mg PO Q4H PRN PRN Reason: FEVER OR PAIN Last Admin: 06/23/17 06:34 Dose: 650 mg Albuterol Sulfate (Ventolin 0.083% Nebulizer Soln -) 1 amp NEB Q4H PRN PRN Reason: SHORT OF BREATH/WHEEZING Albuterol Sulfate (Ventolin 0.083% Nebulizer Soln -) 1 amp NEB QIDR [facility] Last Admin: 06/23/17 06:53 Dose: 1 amp Apixaban (Eliquis -) 5 mg PO BID [facility] Last Admin: 06/22/17 21:44 Dose: 5 mg Artificial Tears (Artificial Tears) 1 drop OU DAILY [facility] Last Admin: 06/22/17 15:00 Dose: 1 drop Budesonide (Pulmicort 0.25 Mg Nebulizer -) 1 amp NEB BID [facility] Last Admin: 06/22/17 21:45 Dose: 1 amp Cholestyramine Resin (Questran Light Packet -) 4 gm PO BID [facility] Last Admin: 06/22/17 21:43 Dose: 4 gm Diltiazem HCl (Cardizem Cd -) 300 mg PO DAILY [facility] Last Admin: 06/22/17 11:08 Dose: 300 mg Folic Acid (Folic Acid -) 1 mg PO DAILY [facility] Last Admin: 06/22/17 11:06 Dose: 1 mg Lactobacillus Acidophilus (Bacid -) 1 tab PO BID [facility] Last Admin: 06/22/17 21:42 Dose: 1 tab Levothyroxine Sodium (Synthroid -) 50 mcg PO DAILY@0700 [facility] Last Admin: 06/23/17 06:15 Dose: 50 mcg Lorazepam (Ativan -) 0.5 mg PO Q8H PRN PRN Reason: ANXIETY Last Admin: 06/22/17 21:42 Dose: 0.5 mg Melatonin (Melatonin) 5 mg PO HS [facility] Last Admin: 06/22/17 21:48 Dose: 5 mg Metoprolol Tartrate (Lopressor Injection -) 5 mg IVPUSH Q4H PRN PRN Reason: HYPERTENSION Mirtazapine (Remeron -) 15 mg PO HS [facility] Last Admin: 06/22/17 21:42 Dose: 15 mg Nitroglycerin (Nitro-Bid 2% Paste -) 0.5 inch TD Q6H PRN Oxycodone HCl (Roxicodone -) 5 mg PO Q4H PRN PRN Reason: PAIN Last Admin: 06/22/17 21:43 Dose: 5 mg Prednisone (Deltasone -) 40 mg PO BID [facility] Last Admin: 06/22/17 21:47 Dose: 40 mg Ranitidine HCl (Zantac -) 150 mg PO DAILY [facility] Last Admin: 06/22/17 11:07 Dose: 150 mg Thiamine HCl (Vitamin B1 -) 100 mg PO DAILY [facility] Last Admin: 06/22/17 11:07 Dose: 100 mg Valsartan (Diovan -) 320 mg PO DAILY [facility] Last Admin: 06/22/17 11:05 Dose: 320 mg - Objective Vital Signs: Vital Signs Temperature 98.7 F 06/23/17 06:00 Pulse Rate 83 06/23/17 06:00 Respiratory Rate 15 06/23/17 06:52 Blood Pressure 129/67 06/23/17 06:00 O2 Sat by Pulse Oximetry (%) 98 06/22/17 15:40 Constitutional: Yes: Well Nourished, No Distress, Calm Cardiovascular: Yes: Regular Rate and Rhythm Respiratory: Yes: Regular Gastrointestinal: Yes: Normal Bowel Sounds Musculoskeletal: Yes: WNL Extremities: Yes: WNL Edema: No Peripheral Pulses WNL: Yes Neurological: Yes: Alert, Oriented Psychiatric: Yes: Alert, Oriented Labs: CBC, BMP 06/22/17 06:10 06/22/17 06:10 INR, PTT INR 1.01 (0.82-1.09) 06/21/17 05:15 Problem List - Problems (1) COPD (chronic obstructive pulmonary disease) Assessment/Plan: -mech vent, wean as tolerated and as per pulmonary -PO steroids -Neb tx -Mucomyst -suction PRN -on pulmicort BID Code(s): J44.9 - CHRONIC OBSTRUCTIVE PULMONARY DISEASE, UNSPECIFIED Qualifiers : COPD type: COPD with acute exacerbation Qualified Code(s): J44.1 - Chronic obstructive pulmonary disease with (acute) exacerbation (2) Tracheostomy dependence Assessment/Plan: -seen by ENT -trach changed again on 06/18/17 to cuffed trach for mechanical ventilation Code(s): Z93.0 - TRACHEOSTOMY STATUS (3) Acute and chronic respiratory failure with hypoxia Assessment/Plan: -on IV steroids -weaning as per pulmonary -trial of trach collar in AM? -hold PM valve for now -diet changed to dysphagia minced Code(s): J96.21 - ACUTE AND CHRONIC RESPIRATORY FAILURE WITH HYPOXIA Assessment/Plan see problem list Pt okay to be discharged to [facility]
[2017-06-23] MEDS ORDERED: PT OWN MED DRAWER 7, Y5N ONE (10:42)
[2017-06-23] MEDS: FOLIC ACID 1 MG TABLET (FP) PO SCH (11:07)
[2017-06-23] MEDS: RANITIDINE HCL 150 MG TABLET (FP) PO SCH (11:07)
[2017-06-23] MEDS: THIAMINE HCL 100 MG TABLET (FP) PO SCH (11:07)
[2017-06-23] MEDS: LACTOBACILLUS ACIDOPHILUS 1 EACH TAB (FP) PO SCH (11:07)
[2017-06-23] MEDS: predniSONE 20 MG TABLET (UD) PO SCH (11:08)
[2017-06-23] MEDS: ARTIFICIAL TEARS (POLYVINYL ALCOHOL 1.4%) OPTH DROPS OU SCH (11:08)
[2017-06-23] MEDS: VALSARTAN 160 MG TABLET (UD) PO SCH (11:08)
[2017-06-23] MEDS: APIXABAN 5 MG TABLET PO SCH (11:10)
[2017-06-23] MEDS: CHOLESTYRAMINE/ASPARTAME 4 GM PACKET PO SCH (11:10)
[2017-06-23] MEDS: oxyCODONE HCL 5 MG TABLET PO PRN (11:22)
[2017-06-23] MEDS: LORazepam 0.5 MG TABLET PO PRN (11:24)
--- NOTE | 2017-06-23 11:29 | PN ---
Progress Note, Physician History of Present Illness: Comfortable on chronic vent via tracheostomy. - Current Medication List Current Medications: Active Medications Acetaminophen (Tylenol -) 650 mg PO Q4H PRN PRN Reason: FEVER OR PAIN Last Admin: 06/23/17 06:34 Dose: 650 mg Albuterol Sulfate (Ventolin 0.083% Nebulizer Soln -) 1 amp NEB Q4H PRN PRN Reason: SHORT OF BREATH/WHEEZING Albuterol Sulfate (Ventolin 0.083% Nebulizer Soln -) 1 amp NEB QIDR [facility] Last Admin: 06/23/17 06:53 Dose: 1 amp Apixaban (Eliquis -) 5 mg PO BID [facility] Last Admin: 06/23/17 11:10 Dose: 5 mg Artificial Tears (Artificial Tears) 1 drop OU DAILY [facility] Last Admin: 06/23/17 11:08 Dose: 1 drop Budesonide (Pulmicort 0.25 Mg Nebulizer -) 1 amp NEB BID [facility] Last Admin: 06/22/17 21:45 Dose: 1 amp Cholestyramine Resin (Questran Light Packet -) 4 gm PO BID [facility] Last Admin: 06/23/17 11:10 Dose: 4 gm Diltiazem HCl (Cardizem Cd -) 300 mg PO DAILY [facility] Last Admin: 06/23/17 11:10 Dose: 300 mg Folic Acid (Folic Acid -) 1 mg PO DAILY [facility] Last Admin: 06/23/17 11:07 Dose: 1 mg Lactobacillus Acidophilus (Bacid -) 1 tab PO BID [facility] Last Admin: 06/23/17 11:07 Dose: 1 tab Levothyroxine Sodium (Synthroid -) 50 mcg PO DAILY@0700 [facility] Last Admin: 06/23/17 06:15 Dose: 50 mcg Lorazepam (Ativan -) 0.5 mg PO Q8H PRN PRN Reason: ANXIETY Last Admin: 06/23/17 11:24 Dose: 0.5 mg Melatonin (Melatonin) 5 mg PO [facility] Last Admin: 06/22/17 21:48 Dose: 5 mg Metoprolol Tartrate (Lopressor Injection -) 5 mg IVPUSH Q4H PRN PRN Reason: HYPERTENSION Mirtazapine (Remeron -) 15 mg PO HS [facility] Last Admin: 06/22/17 21:42 Dose: 15 mg Nitroglycerin (Nitro-Bid 2% Paste -) 0.5 inch TD Q6H PRN Oxycodone HCl (Roxicodone -) 5 mg PO Q4H PRN PRN Reason: PAIN Last Admin: 06/23/17 11:22 Dose: 5 mg Prednisone (Deltasone -) 40 mg PO BID [facility] Last Admin: 06/23/17 11:08 Dose: 40 mg Ranitidine HCl (Zantac -) 150 mg PO DAILY [facility] Last Admin: 06/23/17 11:07 Dose: 150 mg Thiamine HCl (Vitamin B1 -) 100 mg PO DAILY [facility] Last Admin: 06/23/17 11:07 Dose: 100 mg Valsartan (Diovan -) 320 mg PO DAILY [facility] Last Admin: 06/23/17 11:08 Dose: 320 mg - Objective Vital Signs: Vital Signs Temperature 98.7 F 06/23/17 06:00 Pulse Rate 99 H 06/23/17 09:20 Respiratory Rate 14 06/23/17 09:20 Blood Pressure 129/67 06/23/17 06:00 O2 Sat by Pulse Oximetry (%) 99 06/23/17 09:20 Constitutional: Yes: No Distress, Calm, Thin Cardiovascular: Yes: Regular Rate and Rhythm Respiratory: Yes: Mechanically Ventilated, Rhonchi Gastrointestinal: Yes: Normal Bowel Sounds, Soft Edema: No Labs: CBC, BMP 06/22/17 06:10 06/22/17 06:10 INR, PTT INR 1.01 (0.82-1.09) 06/21/17 05:15 Problem List - Problems (1) Chronic respiratory failure with hypoxia Code(s): J96.11 - CHRONIC RESPIRATORY FAILURE WITH HYPOXIA (2) A-fib Code(s): I48.91 - UNSPECIFIED ATRIAL FIBRILLATION Qualifiers: Atrial fibrillation type: paroxysmal Qualified Code(s): I48.0 - Paroxysmal atrial fibrillation (3) COPD exacerbation Code(s): J44.1 - CHRONIC OBSTRUCTIVE PULMONARY DISEASE W (ACUTE) EXACERBATION (4) Chest pain Code(s): R07.9 - CHEST PAIN, UNSPECIFIED Qualifiers: Chest pain type: pleurodynia Qualified Code(s): R07.81 - Pleurodynia (5) Hypothyroid Code(s): E03.9 - HYPOTHYROIDISM, UNSPECIFIED Qualifiers: Hypothyroidism type: unspecified Qualified Code(s): E03.9 - Hypothyroidism, unspecified (6) Tracheostomy dependence Code(s): Z93.0 - TRACHEOSTOMY STATUS Assessment/Plan Echo 09/09/2015: nl LV/EF, nl RV, mild MR 1. Acute exacerbation of chronic obstructive airway disease improving 2. Acute on Chronic Hypoxic Respiratory Failure post tracheostomy 3. Diastolic LV dysfunction with class I NYHA classification LV congestive heart failure, compensated/euvolemic 4. Paroxysmal Atrial Fibrillation/atrial tachycardia not on anticoagulation, [id number] score of 4 5. Chest pain syndrome, atypical for CAD angina pectoris (musculo-skeletal discomfort) 6. HTN 7. Hypothyroidism 8. History of C. Difficile Colitis P: 1. Prednisone taper with GI protection, inhaled bronchodilators, O2 to keep SpO2 >90% 2. Continue Cardizem CD 300 qd, Diovan 320 qd, Questran 4 bid, Lopressor 5 q4 prn 3. Continue Eliquis 5 bid for DVT and stroke thrombophylaxis given elevated risk score
--- NOTE | 2017-06-23 11:53 | PN ---
Progress Note (short form) - Note Progress Note: PULMONARY Vented on volume assist control. Awake, alert. Denies shortness of breath. Last Vital Signs Temp Pulse Resp BP Pulse Ox 98.7 F 99 H 14 129/67 99 06/23/17 06:00 06/23/17 09:20 06/23/17 09:20 06/23/17 06:00 06/23/17 09:20 Gen: vented, awake Heart: RRR Lung: decreased breath sounds at the bases Abd: soft, nontender Ext: no edema CBC, BMP 06/22/17 06:10 06/22/17 06:10 Active Medications Acetaminophen (Tylenol -) 650 mg PO Q4H PRN PRN Reason: FEVER OR PAIN Last Admin: 06/23/17 06:34 Dose: 650 mg Albuterol Sulfate (Ventolin 0.083% Nebulizer Soln -) 1 amp NEB Q4H PRN PRN Reason: SHORT OF BREATH/WHEEZING Albuterol Sulfate (Ventolin 0.083% Nebulizer Soln -) 1 amp NEB QIDR [facility] Last Admin: 06/23/17 06:53 Dose: 1 amp Apixaban (Eliquis -) 5 mg PO BID [facility] Last Admin: 06/23/17 11:10 Dose: 5 mg Artificial Tears (Artificial Tears) 1 drop OU DAILY [facility] Last Admin: 06/23/17 11:08 Dose: 1 drop Budesonide (Pulmicort 0.25 Mg Nebulizer -) 1 amp NEB BID [facility] Last Admin: 06/22/17 21:45 Dose: 1 amp Cholestyramine Resin (Questran Light Packet -) 4 gm PO BID [facility] Last Admin: 06/23/17 11:10 Dose: 4 gm Diltiazem HCl (Cardizem Cd -) 300 mg PO DAILY [facility] Last Admin: 06/23/17 11:10 Dose: 300 mg Folic Acid (Folic Acid -) 1 mg PO DAILY [facility] Last Admin: 06/23/17 11:07 Dose: 1 mg Lactobacillus Acidophilus (Bacid -) 1 tab PO BID [facility] Last Admin: 06/23/17 11:07 Dose: 1 tab Levothyroxine Sodium (Synthroid -) 50 mcg PO DAILY@0700 [facility] Last Admin: 06/23/17 06:15 Dose: 50 mcg Lorazepam (Ativan -) 0.5 mg PO Q8H PRN PRN Reason: ANXIETY Last Admin: 06/23/17 11:24 Dose: 0.5 mg Melatonin (Melatonin) 5 mg PO HS [facility] Last Admin: 06/22/17 21:48 Dose: 5 mg Metoprolol Tartrate (Lopressor Injection -) 5 mg IVPUSH Q4H PRN PRN Reason: HYPERTENSION Mirtazapine (Remeron -) 15 mg PO HS [facility] Last Admin: 06/22/17 21:42 Dose: 15 mg Nitroglycerin (Nitro-Bid 2% Paste -) 0.5 inch TD Q6H PRN Oxycodone HCl (Roxicodone -) 5 mg PO Q4H PRN PRN Reason: PAIN Last Admin: 06/23/17 11:22 Dose: 5 mg Prednisone (Deltasone -) 40 mg PO BID [facility] Last Admin: 06/23/17 11:08 Dose: 40 mg Ranitidine HCl (Zantac -) 150 mg PO DAILY [facility] Last Admin: 06/23/17 11:07 Dose: 150 mg Thiamine HCl (Vitamin B1 -) 100 mg PO DAILY [facility] Last Admin: 06/23/17 11:07 Dose: 100 mg Valsartan (Diovan -) 320 mg PO DAILY [facility] Last Admin: 06/23/17 11:08 Dose: 320 mg A/P Acute on Chronic Hypoxic Respiratory Failure Acute COPD Exacerbation LV Diastolic Dysfunction Paroxysmal Atrial Fibrillation HTN Hypothyroidism - prednisone taper - inhaled bronchodilators - rate controlled - continue anticoagulation - spontanoeus breathing trials as tolerated - PO as tolerated - DVT/GI prophylaxis - can be discharged to SNF from pulmonary standpoint Problem List - Problems (1) COPD exacerbation Code(s): J44.1 - CHRONIC OBSTRUCTIVE PULMONARY DISEASE W (ACUTE) EXACERBATION (2) Chronic respiratory failure with hypoxia Code(s): J96.11 - CHRONIC RESPIRATORY FAILURE WITH HYPOXIA (3) A-fib Code(s): I48.91 - UNSPECIFIED ATRIAL FIBRILLATION Qualifiers: Atrial fibrillation type: paroxysmal Qualified Code(s): I48.0 - Paroxysmal atrial fibrillation (4) Chest pain Code(s): R07.9 - CHEST PAIN, UNSPECIFIED Qualifiers: Chest pain type: pleurodynia Qualified Code(s): R07.81 - Pleurodynia
--- NOTE | 2017-06-23 13:21 | PN ---
Progress Note, [employer]IST - Note Progress Note: Selected Entries 06/22/17 06/22/17 06/22/17 01:00 06:00 11:03 Breakfast Lunch Supper Temperature 97.9 F 97.6 F 99.1 F 06/22/17 06/22/17 06/22/17 12:41 14:15 18:00 Breakfast 50% Lunch 50% Supper 50% Temperature 98.7 F 98.8 F 06/23/17 06/23/17 06/23/17 02:00 06:00 10:00 Breakfast Lunch Supper Temperature 97.6 F 98.7 F 98.9 F Suggest PMV evaluation, to improve upper airway function and to expedite weaning from ventilator.
--- NOTE | 2017-06-23 13:54 | DS ---
Physical Examination Vital Signs: Vital Signs Temperature 98.9 F 06/23/17 10:00 Pulse Rate 100 H 06/23/17 10:00 Respiratory Rate 21 06/23/17 10:00 Blood Pressure 155/76 06/23/17 10:00 O2 Sat by Pulse Oximetry (%) 99 06/23/17 09:20 Constitutional: Yes: Well Nourished, No Distress, Calm Cardiovascular: Yes: Regular Rate and Rhythm Respiratory: Yes: Regular Gastrointestinal: Yes: Normal Bowel Sounds Musculoskeletal: Yes: WNL Extremities: Yes: WNL Edema: No Peripheral Pulses WNL: Yes Neurological: Yes: Alert, Oriented Psychiatric: Yes: Alert, Oriented Labs: CBC, BMP 06/22/17 06:10 06/22/17 06:10 Discharge Summary Reason For Visit: HYPOXIA\BRONCHITIS Current Active Problems Asthma exacerbation in COPD (Acute) Chronic respiratory failure with hypoxia (Acute) Diastolic heart failure (Acute) Hypoxia (Acute) Hospital Course: Patient originally came in to [facility] ER for SOB, hypoxia, originally on Trach collar at [facility]. Upon evaluation she was diagnosed with bronchitis was treated with IV steroids, nebulizer treatments and high concentrations of Oxygen. Her trach was changed twice, first uncuffed and then to cuffed due to deterioration of her status where she had to placed on mechanical vent for support. She was again tried on several weaning trials but failed. IV steroids were then changed to PO, weaning trials recommended when she returns to [facility]. Condition: Stable - Instructions Diet, Activity, Other Instructions: taper prednisone 40 mg po BID x 2 days 30 mg po BID x 3 days 20 mg po BID x 3 days 10 mg po BID x 3 days 5 mg po BID x 3 days then 5 mg po daily for 3 days, then stop Diet: Dysphagia minced PMV: on hold Mechanical vent: wean as tolerated Referrals: Cindy Cavanaugh MD [Primary Care Provider] - Disposition: CUSTODIAL FACILITY - Home Medications Comprehensive Discharge Medication List: Ambulatory Orders Albuterol 2.5/Ipratropium 0.5 [Duoneb -] 1 neb NEB TID 02/01/16 Aspirin [Ecotrin] 81 mg PO DAILY 02/01/16 Folic Acid 1 mg PO DAILY 02/01/16 Lactobacillus Acidophilus [Bacid -] 1 each PO BID 02/01/16 Levothyroxine [Synthroid -] 50 mcg PO DAILY 02/01/16 Lorazepam 0.5 mg PO TID PRN 02/01/16 Melatonin 3 mg PO HS 02/01/16 Mirtazapine 15 mg PO HS 02/01/16 Peg 400/Hypromellose/Glycerin [Artificial Tears Drops] 1 drop OU DAILY 02/01/16 Thiamine HCl [Vitamin B1 -] 100 mg PO DAILY 02/01/16 Vitamin B Complex Vit C No.3 [B Complex with Vitamin C] 1 each PO DAILY Ranitidine [Zantac -] 150 mg PO DAILY tablet 02/09/16 Acetylcysteine Po/INH 20% [Mucomyst 20 Oral / INH Use Only*] 200 mg NEB QIDR vial 06/14/17 Budesonide [Pulmicort 0.25 mg Nebulizer -] 1 amp NEB BID amp 06/14/17 Cholestyramine/Aspartame [Questran Light Packet -] 4 gm PO BID packet 06/14/17 Acetaminophen [Tylenol .Regular Strength -] 650 mg PO Q4H PRN #0 tablet Albuterol 0.083% Nebulizer Carina [Ventolin 0.083% Nebulizer Soln -] 1 amp NEB Q4H PRN #180 amp 06/23/17 Apixaban [Eliquis -] 5 mg PO BID tablet 06/23/17 Budesonide [Pulmicort 0.25 mg Nebulizer -] 1 amp NEB BID amp 06/23/17 Cholestyramine/Aspartame [Questran Light Packet -] 4 gm PO BID packet 06/23/17 Diltiazem Cd [Cardizem Cd -] 300 mg PO DAILY #30 cap 06/23/17 Lorazepam [Ativan] 0.5 mg PO Q8H PRN #0 tablet MDD 3 06/23/17 Melatonin 5 mg PO HS tab 06/23/17 Oxycodone HCl [Roxicodone -] 5 mg PO Q4H PRN #0 tablet MDD 6 06/23/17 Prednisone [Deltasone -] 40 mg PO BID #90 tablet 06/23/17 Valsartan [Diovan] 320 mg PO DAILY tablet 06/23/17
[2017-06-23 15:28] VITALS: BP 114/87; PULSE 101; TEMP 98.7
== END 2017-06-23 15:56 | DRG 207 ==
LOC: JER 12:20 → JERBED 16:48 → J4W 21:02 → J8W 06-10 17:32 → J2W 06-18 22:15 → JICU 06-20 00:17 → J5S 06-22 00:50
PROVIDERS: ADMIT Family Medicine; ATTEND Family Medicine
PROC: 0B21XFZ Change Tracheostomy Device in Trachea, External Approach (ICD-10-PCS; 2017-06-12)
PROC: 5A1955Z Respiratory Ventilation, Greater than 96 Consecutive Hours (ICD-10-PCS; principal; 2017-06-18)
DX: J96.21 Acute and chronic respiratory failure with hypoxia (principal); J44.1 Chronic obstructive pulmonary disease with (acute) exacerbation; J45.901 Unspecified asthma with (acute) exacerbation; I50.30 Unspecified diastolic (congestive) heart failure; R64 Cachexia; Z68.1 Body mass index [BMI] 19.9 or less, adult; J98.11 Atelectasis; I47.1 Supraventricular tachycardia; E03.9 Hypothyroidism, unspecified; I48.0 Paroxysmal atrial fibrillation; Z93.0 Tracheostomy status; R07.89 Other chest pain; I11.0 Hypertensive heart disease with heart failure; D64.9 Anemia, unspecified; R74.0 Nonspecific elevation of levels of transaminase and lactic acid dehydrogenase [LDH]; Z87.891 Personal history of nicotine dependence; R19.7 Diarrhea, unspecified; J20.9 Acute bronchitis, unspecified
CPT/HCPCS: 36415; 36600; 71010-TC; 80053; 82272; 82803; 83735; 83880; 84100; 84484; 85025; 85027; 85610; 85730; 87045; 87046; 87070; 87081; 87177; 87186; 87205; 87209; 87324; 87449; 93005; 93010; 94002; 94640; 97116-GP; 97161-GP; 99284-25; J1644

== ENCOUNTER 2017-07-19 11:34 | Inpatient (IN) | payer OTHER ==
[2017-07-19] MEDS ORDERED: VANCOMYCIN 1 GRAM (PRE-DOCKED) 250 ML IVPB ONE (12:31)
[2017-07-19] MEDS ORDERED: ACETAMINOPHEN INJECTION 100 ML IVPB ONE (12:31)
[2017-07-19] MEDS ORDERED: VANCOMYCIN 1,000 MG in DEXTROSE 5%-WATER - 250 ML IVPB ONE (12:46)
[2017-07-19] MEDS ORDERED: PIPERACILLIN/TAZOB 3.375 GM/50 ML PRE-DOCKED IVPB ONE (12:46)
[2017-07-19 12:53] LABS: MCH 29.1 pg (25.7-33.7); MCHC 33.2 g/dl (32.0-36.0); MEAN CELL VOLUME 87.7 fl (80-96); MEAN PLT VOLUME 8.3 fl (7.5-11.1); PLATELET COUNT 596 K/MM3 (134-434); WHITE BLOOD COUNT 17.4 K/mm3 (4.0-10.0)
[2017-07-19 13:06] LABS: INR 1.72 (0.82-1.09); PROTHROMBIN TIME (PATIENT) 19.1 SEC (9.98-11.88)
[2017-07-19 13:09] LABS: ACTIVATED PTT 38.9 SECONDS (26.9-34.4)
[2017-07-19 13:38] LABS: GLUCOSE,RANDOM 217 mg/dL (74-106)
[2017-07-19 13:39] LABS: ANION GAP 6 (8-16); CO2 32 mmol/L (21-32); CREATININE 1.2 mg/dL (0.55-1.02)
[2017-07-19 13:40] LABS: ALBUMIN 2.1 g/dl (3.4-5.0); ALK PHOS 83 U/L (45-117); BILIRUBIN,TOTAL 0.3 mg/dL (0.2-1.0); CALCIUM 7.8 mg/dL (8.5-10.1); SGOT/AST 14 U/L (15-37); SGPT/ALT 11 U/L (12-78); TOT PROT 5.4 g/dl (6.4-8.2)
[2017-07-19] MEDS ORDERED: SODIUM CHLORIDE 1,000 ML IV STA (13:53)
[2017-07-19] MEDS ORDERED: ACETAMINOPHEN 1000 MG/100 ML VIAL (NON FORMULARY) IVPB ONE (13:53)
--- NOTE | 2017-07-19 13:57 | PDOC ---
History of Present Illness - General History Source: EMS, Shelter Records, Old Records Exam Limitations: No Limitations - History of Present Illness Initial Comments: 07/19/17 14:27 The patient is a 67 year old female resident from [facility], with a significant past medical history of Anemia, Afib, COPD, Gastroparesis, Hypothyroidism who presents to the emergency department for evaluation of fever and tachycardia. As per EMS, patient was tachycardic to 120s and had difficulty breathing. Upon arrival patients vital signs were significant for 120 pulse rate and 96 O2 saturation. Patient was recently admitted at [facility] for SOB and hypoxia and was discharged on 06/23/2017. Allergies: peas, Iodinated Contrast- Oral and IV dye, Iodine Past surgical history: Appendectomy, Tracheostomy Social history: Former smoker PCP: John <Mary Haynes - Last Filed: 07/19/17 15:31> - General History Source: Patient, Old Records Exam Limitations: No Limitations <Hang Galvez - Last Filed: 07/19/17 16:00> - General Chief Complaint: Respiratory Stated Complaint: SEPSIS Time Seen by Provider: 07/19/17 12:36 Past History <Mary Haynes - Last Filed: 07/19/17 15:31> - Past Medical History Anemia: Yes Cardiac Disorders: Yes (a-fib) COPD: Yes GI Disorders: Yes (GASTROPARESIS) HIV: Yes Thyroid Disease: Yes (HYPO) - Surgical History Appendectomy: Yes Cholecystectomy: Yes Orthopedic Surgery: Yes (DISC) - Immunization History Immunization Up to Date: Yes - Psycho/Social/Smoking Cessation Hx Anxiety: No Suicidal Ideation: No Smoking History: Former smoker Have you smoked in the past 12 months: No If you are a former smoker, when did you quit?: 2008 Information on smoking cessation initiated: No Hx Alcohol Use: No Drug/Substance Use Hx: No Substance Use Type: None Hx Substance Use Treatment: No <Hang Galvez - Last Filed: 07/19/17 16:00> - Past Medical History Allergies/Adverse Reactions: Allergies Allergy/AdvReac Type Severity Reaction Status Date / Time peas Allergy Severe Difficulty Verified 07/19/17 12:10 Breathing Iodinated Contrast- Oral and Allergy Verified 07/19/17 12:10 IV Dye [Iodinated Contrast Media - IV Dye] iodine Allergy Verified 07/19/17 12:10 Home Medications: Ambulatory Orders Albuterol 2.5/Ipratropium 0.5 [Duoneb -] 1 neb NEB TID 02/01/16 Aspirin [Ecotrin] 81 mg PO DAILY 02/01/16 Folic Acid 1 mg PO DAILY 02/01/16 Lactobacillus Acidophilus [Bacid -] 1 each PO BID 02/01/16 Levothyroxine [Synthroid -] 50 mcg PO DAILY 02/01/16 Lorazepam 0.5 mg PO TID PRN 02/01/16 Melatonin 3 mg PO HS 02/01/16 Mirtazapine 15 mg PO HS 02/01/16 Peg 400/Hypromellose/Glycerin [Artificial Tears Drops] 1 drop OU DAILY 02/01/16 Thiamine HCl [Vitamin B1 -] 100 mg PO DAILY 02/01/16 Vitamin B Complex Vit C No.3 [B Complex with Vitamin C] 1 each PO DAILY Ranitidine [Zantac -] 150 mg PO DAILY tablet 02/09/16 Acetylcysteine Po/INH 20% [Mucomyst 20 Oral / INH Use Only*] 200 mg NEB QIDR vial 06/14/17 Budesonide [Pulmicort 0.25 mg Nebulizer -] 1 amp NEB BID amp 06/14/17 Cholestyramine/Aspartame [Questran Light Packet -] 4 gm PO BID packet 06/14/17 Acetaminophen [Tylenol .Regular Strength -] 650 mg PO Q4H PRN #0 tablet Albuterol 0.083% Nebulizer Carina [Ventolin 0.083% Nebulizer Soln -] 1 amp NEB Q4H PRN #180 amp 06/23/17 Apixaban [Eliquis -] 5 mg PO BID tablet 06/23/17 Budesonide [Pulmicort 0.25 mg Nebulizer -] 1 amp NEB BID amp 06/23/17 Cholestyramine/Aspartame [Questran Light Packet -] 4 gm PO BID packet 06/23/17 Diltiazem Cd [Cardizem Cd -] 300 mg PO DAILY #30 cap 06/23/17 Lorazepam [Ativan] 0.5 mg PO Q8H PRN #0 tablet MDD 3 06/23/17 Melatonin 5 mg PO HS tab 06/23/17 Oxycodone HCl [Roxicodone -] 5 mg PO Q4H PRN #0 tablet MDD 6 06/23/17 Prednisone [Deltasone -] 40 mg PO BID #90 tablet 06/23/17 Valsartan [Diovan] 320 mg PO DAILY tablet 06/23/17 Review of Systems - Review of Systems Able to Perform ROS?: Yes Comments:: 07/19/17 14:27 GENERAL/CONSTITUTIONAL: No fever or chills. No weakness. HEAD, EYES, EARS, NOSE AND THROAT: No change in vision. No ear pain or discharge. No sore throat. CARDIOVASCULAR: No chest pain or shortness of breath. RESPIRATORY: No cough, wheezing, or hemoptysis. GASTROINTESTINAL: +abdominal pain. No nausea, vomiting, diarrhea or constipation. GENITOURINARY: No dysuria, frequency, or change in urination. MUSCULOSKELETAL: No joint or muscle swelling or pain. No neck or back pain. SKIN: No rash NEUROLOGIC: No headache, vertigo, loss of consciousness, or change in strength/ sensation. ENDOCRINE: No increased thirst. No abnormal weight change. HEMATOLOGIC/LYMPHATIC: No anemia, easy bleeding, or history of blood clots. ALLERGIC/IMMUNOLOGIC: No hives or skin allergy. <Mary Haynes - Last Filed: 07/19/17 15:31> *Physical Exam - Vital Signs Last Vital Signs Temp Pulse Resp BP Pulse Ox 102.4 F H 138 H 24 94/57 98 07/19/17 11:34 07/19/17 12:38 07/19/17 12:35 07/19/17 11:34 07/19/17 12:38 - Physical Exam Comments: 07/19/17 14:27 GENERAL: Awake, alert, and fully oriented, in no acute distress HEAD: No signs of trauma EYES: PERRLA, EOMI, sclera anicteric, conjunctiva clear ENT: Auricles normal inspection, hearing grossly normal, nares patent, oropharynx clear without exudates. Moist mucosa. +Tracheostomy tube is clean dry and intact. NECK: Normal ROM, supple, no lymphadenopathy, JVD, or masses LUNGS: Breath sounds equal, clear to auscultation bilaterally. No wheezes, and no crackles HEART: Regular rate and rhythm, normal S1 and S2, no murmurs, rubs or gallops ABDOMEN: +LUQ tenderness. Normoactive bowel sounds. No guarding, no rebound. No masses EXTREMITIES: Normal range of motion, no edema. No clubbing or cyanosis. No cords, erythema, or tenderness NEUROLOGICAL: Cranial nerves II through XII grossly intact. Normal speech, normal gait SKIN: Warm, Dry, normal turgor, no rashes or lesions noted. <Mary Haynes - Last Filed: 07/19/17 15:31> - Vital Signs Last Vital Signs Temp Pulse Resp BP Pulse Ox 102.4 F H 138 H 24 94/57 98 07/19/17 11:34 07/19/17 12:38 07/19/17 12:35 07/19/17 11:34 07/19/17 12:38 <Hang Galvez - Last Filed: 07/19/17 16:00> ED Treatment Course - LABORATORY CBC & Chemistry Diagram: 07/19/17 11:34 07/19/17 12:05 - ADDITIONAL ORDERS Additional order review: Laboratory Results 07/19/17 07/19/17 07/19/17 12:05 11:50 11:34 INR 1.72 H D PTT (Actin FS) 38.9 H D Sodium 133 L Potassium 5.4 H D Chloride 95 L Carbon Dioxide 32 Anion Gap 6 L BUN 30 H Creatinine 1.2 H D Creat Clearance w eGFR 44.68 Random Glucose 217 H D Lactic Acid 1.6 Calcium 7.8 L Total Bilirubin 0.3 D AST 14 L D ALT 11 L D Alkaline Phosphatase 83 D Total Protein 5.4 L Albumin 2.1 L 07/19/17 11:34 RBC 2.66 L D MCV 87.7 MCHC 33.2 RDW 15.0 D MPV 8.3 D - Medications Given in the ED: ED Medications Discontinued Medications Generic Name Dose Route Start Last Admin Trade Name Freq PRN Reason Stop Dose Admin Acetaminophen 1,000 mg 07/19/17 13:53 07/19/17 12:30 Ofirmev Injection - IVPB 07/19/17 13:54 1,000 mg ONCE ONE Administration Vancomycin HCl 1,000 mg/ 250 mls @ 250 mls/hr 07/19/17 12:46 07/19/17 12:50 Dextrose IVPB 07/19/17 13:45 250 mls/hr ONCE ONE Administration Protocol <Mary Haynes - Last Filed: 07/19/17 15:31> - LABORATORY CBC & Chemistry Diagram: 07/19/17 11:34 07/19/17 12:05 - ADDITIONAL ORDERS Additional order review: Laboratory Results 07/19/17 07/19/17 07/19/17 12:05 11:50 11:34 INR 1.72 H D PTT (Actin FS) 38.9 H D Sodium 133 L Potassium 5.4 H D Chloride 95 L Carbon Dioxide 32 Anion Gap 6 L BUN 30 H Creatinine 1.2 H D Creat Clearance w eGFR 44.68 Random Glucose 217 H D Lactic Acid 1.6 Calcium 7.8 L Total Bilirubin 0.3 D AST 14 L D ALT 11 L D Alkaline Phosphatase 83 D Total Protein 5.4 L Albumin 2.1 L 07/19/17 11:34 RBC 2.66 L D MCV 87.7 MCHC 33.2 RDW 15.0 D MPV 8.3 D - RADIOLOGY Radiology Studies Ordered: Category Date Time Status CHEST X-RAY PORTABLE* [RAD] Stat Radiology 07/19/17 11:46 Taken <Hang Galvez - Last Filed: 07/19/17 16:00> Medical Decision Making - Medical Decision Making 07/19/17 14:[address] Guerra answering service [phone] Awaiting call back. Dr. White nutrition professor. 07/19/17 15:[address] White. Awaiting call back. 07/19/17 15:32 Dr White returned the page and the patient case was discussed. Patient admitted under John service to ICU. <Mary Haynes - Last Filed: 07/19/17 15:31> - Medical Decision Making 07/19/17 13:57 A portion of this note was documented by scribe services under my direction. I have reviewed the details of the note, within reason, and agree with the documentation with the following case summary and management plan written by me. Patient treated in the ED. Nursing notes are reviewed and incorporated into the medical decision-making. Vital signs reviewed. Peripheral IV access obtained by the nurse, laboratory studies are drawn and sent, reviewed and interpreted by myself. Vital Signs Temp Pulse Resp BP Pulse Ox 102.4 F H 138 H 24 94/57 98 07/19/17 11:34 07/19/17 12:38 07/19/17 12:35 07/19/17 11:34 07/19/17 12:38 67-year-old female with history of hypertension, COPD, chronic hypoxic respiratory failure status post tracheostomy, intermittently on trach collar and ventilator brought in by EMS for fever and tachycardia. The patient reports that she had felt a little nauseous with some left upper quadrant pain but denies any chest pain. Patient reportedly had a chest x-ray several days ago which showed potential aspiration pneumonia. The patient was started on Levaquin yesterday. Patient was noted today have a fever greater than 102 and tachycardic to 120s. Adult sepsis protocol initiated and empiric vancomycin and Zosyn initiated. Labs , IV fluids ordered. Differential includes pneumonia, urinary tract infection, sepsis. Patient should be ultimately admitted to the hospital for further evaluation. 07/19/17 15:58 CBC, BMP 07/19/17 11:34 07/19/17 12:05 CMP Sodium 133 mmol/L (136-145) L 07/19/17 12:05 Potassium 5.4 mmol/L (3.5-5.1) H D 07/19/17 12:05 Chloride 95 mmol/L (98-107) L 07/19/17 12:05 Carbon Dioxide 32 mmol/L (21-32) 07/19/17 12:05 Anion Gap 6 (8-16) L 07/19/17 12:05 BUN 30 mg/dL (7-18) H 07/19/17 12:05 Creatinine 1.2 mg/dL (0.55-1.02) H D 07/19/17 12:05 Creat Clearance w eGFR 44.68 (>60) 07/19/17 12:05 Random Glucose 217 mg/dL (74-106) H D 07/19/17 12:05 Lactic Acid 1.6 mmol/L (0.4-2.0) 07/19/17 11:50 Calcium 7.8 mg/dL (8.5-10.1) L 07/19/17 12:05 Total Bilirubin 0.3 mg/dL (0.2-1.0) D 07/19/17 12:05 AST 14 U/L (15-37) L D 07/19/17 12:05 ALT 11 U/L (12-78) L D 07/19/17 12:05 Alkaline Phosphatase 83 U/L (45-117) D 07/19/17 12:05 Troponin I < 0.02 ng/ml (0.00-0.05) 07/19/17 12:05 Total Protein 5.4 g/dl (6.4-8.2) L 07/19/17 12:05 Albumin 2.1 g/dl (3.4-5.0) L 07/19/17 12:05 Lipase 74 U/L (73-393) 07/19/17 12:05 UA pending. Pt given vanc and zosyn. Incidentally noted to have Hgb 7.7. Stool occult ordered. Pt denies any murphy bleeding. After discussion with risks and benefits, patient consents for blood transfusion 2u PRBC ordered. Chest xray unremarkable. Given the requirement of telemetry and pt's hemodynamic status, decision was made to admit pt to the ICU. Case discussed with Dr. Alexander who accepts the patient. Case discussed with Dr. White who accepts the patient for admission under Dr. Dino Lopez. Case discussed in detail with admitting physician including history, physical exam and ancillary studies. Admitting physician has assumed care for the patient, will follow all pending diagnostics and will complete the evaluation and treatment. <Hang Galvez - Last Filed: 07/19/17 16:00> *DC/Admit/Observation/Transfer - Attestations Scribe Attestion: 07/19/17 14:27 Documentation prepared by Mary Haynes, acting as durable medical equipment technician for Hang Galvez MD <Mary Haynes - Last Filed: 07/19/17 15:31> - Discharge Dispostion Admit: Yes <Hang Galvez - Last Filed: 07/19/17 16:00> Diagnosis at time of Disposition: Fever Qualifiers: Fever type: due to other condition Qualified Code(s): R50.81 - Fever presenting with conditions classified elsewhere - Discharge Dispostion Condition at time of disposition: Guarded
[2017-07-19 15:08] LABS: TROPONIN I < 0.02 ng/ml (0.00-0.05)
[2017-07-19] MEDS ORDERED: PIPERACILLIN/TAZOB 3.375 GM 50 ML IVPB ONE (18:25)
[2017-07-19] MEDS ORDERED: ACETAMINOPHEN 325 MG TABLET (FP) PO PRN (19:06)
[2017-07-19] MEDS ORDERED: ALBUTEROL SO4 0.083% IH SOL 2.5 MG/3 ML VIAL.NEB. NEB PRN (19:06)
[2017-07-19] MEDS ORDERED: oxyCODONE HCL 5 MG TABLET PO PRN (19:06)
[2017-07-19] MEDS ORDERED: LORazepam 0.5 MG TABLET PO PRN (19:06)
[2017-07-19 21:07] LABS: ALLENS TEST POSITIVE; ART PUNCT SITE RIGHT RADIAL; ARTERIAL BLD GAS O2 SATURATION 98.1 % (90-98.9); ARTERIAL BLOOD GAS BASE EXCESS 3.3 meq/l (-2-2); ARTERIAL BLOOD GAS HCO3 28.8 meq/L (22-26); ARTERIAL BLOOD GAS PO2 99.3 mmHg (80-100); ARTERIAL BLOOD GAS pH 7.35 (7.35-7.45); LPM/O2% 45%; PT. ON O2? YES
[2017-07-19 21:08] LABS: MECH. VENT. YES; TYPE OF O2 MECH VENT; VENT RATE 10; VT/PRESS 350
[2017-07-19 21:35] LABS: URINE APPEARANCE SLCLOUDY; URINE BILIRUBIN NEGATIVE (NEGATIVE); URINE BLOOD NEGATIVE (NEGATIVE); URINE COLOR LTYELLOW; URINE GLUCOSE (UA) NEGATIVE (NEGATIVE); URINE KETONE NEGATIVE (NEGATIVE); URINE LEUK ESTERASE NEGATIVE (NEGATIVE); URINE NITRITE NEGATIVE (NEGATIVE); URINE PROTEIN NEGATIVE (NEGATIVE); URINE UROBILINOGEN NEGATIVE mg/dL (0.2-1.0)
[2017-07-19] MEDS: predniSONE 20 MG TABLET (UD) PO SCH (21:52)
[2017-07-19] MEDS: LACTOBACILLUS ACIDOPHILUS 1 EACH TAB (FP) PO SCH (21:52)
[2017-07-19] MEDS: MIRTAZAPINE 15 MG TABLET (FP) PO SCH (21:52)
[2017-07-19] MEDS: CHOLESTYRAMINE/ASPARTAME 4 GM PACKET PO SCH (21:52)
[2017-07-19] MEDS: ASPIRIN COATED 81 MG TABLET.EC PO SCH (21:52)
[2017-07-19] MEDS: MELATONIN 1 MG TABLET PO SCH (21:53)
[2017-07-19] MEDS ORDERED: APIXABAN 5 MG TABLET PO SCH (22:00)
[2017-07-19] MEDS ORDERED: ALBUTEROL SO4 2.5/IPRATROPIUM 0.5 INH SOL 3 ML VIAL.NEB. NEB SCH (22:00)
--- NOTE | 2017-07-19 22:01 | CONSULT ---
Consult Consult Specialty:: Pulm/Critical care medicine Reason for Consultation:: fever, sob - History of Present Illness History of Present Illness: Ms. Sarabia is a 67 y.o snf resident with hx anemia, afib, copd with vent dependence, gastroparesis and hypothyroidism who was admitted to the ICU from the ED where she presented with c/o fever, sob and tachycardia. In the ED she was tachycardic to 120 with O2 sat 96%. Labs in ED significant for WBC 17, HgB 7.7, BUN/Creat 30/1.2; she was given IVF and ordered for 2 units PRBC. Vanco and zosyn were started empirically for possible urosepsis. Currently, Ms. Sarabia is awake, alert and oriented. She c/o discomfort around her trach site which has several gauze bandages. Per nursing report, pt. had significant air leak for which the gauze was placed around her trach. RT was able to inflate balloon slightly and air leak resolved. HR AFib 112, BP 98/43, RR 19 with current vent settings: ACVC 10/350/.49/5. Her O2 sat is 100%. She was receiving PRBC. - History Source History Provided By: Patient, Family Member Limitations to Obtaining History: Other (Daughter Cally Davila translated) - Past Medical History [employer]: Yes: CVA, Other (poor short term memory) Cardio/Vascular: Yes: AFIB, HTN Pulmonary: Yes: COPD, Previously Intubated, Other (RESPIRATORY FAILURE) Heme/Onc: Yes: Hypercoaguable State Infectious Disease: Yes: C-Diff Endocrine: Yes: Hypothyroidism - Past Surgical History Past Surgical History: Yes: Appendectomy - Alcohol/Substance Use Hx Alcohol Use: No History of Substance Use: reports: None - Smoking History Smoking history: Former smoker Have you smoked in the past 12 months: No If you are a former smoker, when did you quit?: 2008 - Social History Usual Living Arrangement: Residential ADL: Family Assistance History of Recent Travel: No Home Medications - Allergies Allergies/Adverse Reactions: Allergies Allergy/AdvReac Type Severity Reaction Status Date / Time peas Allergy Severe Difficulty Verified 07/19/17 12:10 Breathing Iodinated Contrast- Oral and Allergy Verified 07/19/17 12:10 IV Dye [Iodinated Contrast Media - IV Dye] iodine Allergy Verified 07/19/17 12:10 - Home Medications Home Medications: Ambulatory Orders Albuterol 2.5/Ipratropium 0.5 [Duoneb -] 1 neb NEB TID 02/01/16 Aspirin [Ecotrin] 81 mg PO DAILY 02/01/16 Folic Acid 1 mg PO DAILY 02/01/16 Lactobacillus Acidophilus [Bacid -] 1 each PO BID 02/01/16 Levothyroxine [Synthroid -] 50 mcg PO DAILY 02/01/16 Lorazepam 0.5 mg PO TID PRN 02/01/16 Melatonin 3 mg PO HS 02/01/16 Mirtazapine 15 mg PO HS 02/01/16 Peg 400/Hypromellose/Glycerin [Artificial Tears Drops] 1 drop OU DAILY 02/01/16 Thiamine HCl [Vitamin B1 -] 100 mg PO DAILY 02/01/16 Vitamin B Complex Vit C No.3 [B Complex with Vitamin C] 1 each PO DAILY Ranitidine [Zantac -] 150 mg PO DAILY tablet 02/09/16 Acetylcysteine Po/INH 20% [Mucomyst 20 Oral / INH Use Only*] 200 mg NEB QIDR vial 06/14/17 Budesonide [Pulmicort 0.25 mg Nebulizer -] 1 amp NEB BID amp 06/14/17 Cholestyramine/Aspartame [Questran Light Packet -] 4 gm PO BID packet 06/14/17 Acetaminophen [Tylenol .Regular Strength -] 650 mg PO Q4H PRN #0 tablet Albuterol 0.083% Nebulizer Carina [Ventolin 0.083% Nebulizer Soln -] 1 amp NEB Q4H PRN #180 amp 06/23/17 Apixaban [Eliquis -] 5 mg PO BID tablet 06/23/17 Budesonide [Pulmicort 0.25 mg Nebulizer -] 1 amp NEB BID amp 06/23/17 Cholestyramine/Aspartame [Questran Light Packet -] 4 gm PO BID packet 06/23/17 Diltiazem Cd [Cardizem Cd -] 300 mg PO DAILY #30 cap 06/23/17 Lorazepam [Ativan] 0.5 mg PO Q8H PRN #0 tablet MDD 3 06/23/17 Melatonin 5 mg PO HS tab 06/23/17 Oxycodone HCl [Roxicodone -] 5 mg PO Q4H PRN #0 tablet MDD 6 06/23/17 Prednisone [Deltasone -] 40 mg PO BID #90 tablet 06/23/17 Valsartan [Diovan] 320 mg PO DAILY tablet 06/23/17 Levofloxacin [Levaquin] 500 mg PO DAILY 07/19/17 Review of Systems - Review of Systems Constitutional: reports: No Symptoms, Fever Eyes: reports: No Symptoms, Blurred Vision HENT: reports: No Symptoms Neck: reports: No Symptoms Cardiovascular: reports: Chest Pain, Palpitations, Shortness of Breath Respiratory: reports: No Symptoms, Cough, SOB Gastrointestinal: reports: No Symptoms Genitourinary: reports: No Symptoms Breasts: reports: Pain Musculoskeletal: reports: No Symptoms, Decreased ROM Integumentary: reports: No Symptoms, Wound Neurological: reports: No Symptoms Endocrine: reports: No Symptoms, Other (symptomatic hypoglycemia) Hematology/Lymphatic: reports: No Symptoms, Easily Bruised Psychiatric: reports: No Symptoms Physical Exam Vital Signs: Vital Signs Temperature 98.6 F 07/19/17 19:36 Pulse Rate 107 H 07/19/17 19:36 Respiratory Rate 17 07/19/17 21:30 Blood Pressure 83/64 07/19/17 19:36 O2 Sat by Pulse Oximetry (%) 99 07/19/17 18:29 Constitutional: Yes: Pallor, Thin Eyes: Yes: WNL, Conjunctiva Clear, PERRL HENT: Yes: WNL Neck: Yes: WNL, Trachea Midline Cardiovascular: Yes: Tachycardia, Pulse Irregular, S1, S2 Respiratory: Yes: Cough, Mechanically Ventilated, Wheezes Gastrointestinal: Yes: Normal Bowel Sounds, Soft ...Rectal Exam: Yes: Deferred Renal/: Yes: Barker Present Musculoskeletal: Yes: WNL Extremities: Yes: WNL Edema: No Peripheral Pulses WNL: Yes Integumentary: Yes: WNL Neurological: Yes: WNL, Alert, Oriented Labs: ABG Results ABG pH 7.35 (7.35-7.45) 07/19/17 21:00 ABG pCO2 at Pt Temp 53.7 mmHg (35-45) H D 07/19/17 21:00 ABG pO2 at Pt Temp 99.3 mmHg (80-100) 07/19/17 21:00 ABG HCO3 28.8 meq/L (22-26) H 07/19/17 21:00 ABG O2 Sat (Measured) 98.1 % (90-98.9) 07/19/17 21:00 ABG O2 Content 10.1 % vol (15-22) L 07/19/17 21:00 ABG Base Excess 3.3 meq/l (-2-2) H 07/19/17 21:00 CBCD WBC 17.4 K/mm3 (4.0-10.0) H 07/19/17 11:34 RBC 2.66 M/mm3 (3.60-5.2) L D 07/19/17 11:34 Hgb 7.7 GM/dL (10.7-15.3) L D 07/19/17 11:34 Hct 23.4 % (32.4-45.2) L D 07/19/17 11:34 MCV 87.7 fl (80-96) 07/19/17 11:34 MCHC 33.2 g/dl (32.0-36.0) 07/19/17 11:34 RDW 15.0 % (11.6-15.6) D 07/19/17 11:34 Plt Count 596 K/MM3 (134-434) H D 07/19/17 11:34 MPV 8.3 fl (7.5-11.1) D 07/19/17 11:34 CMP Sodium 133 mmol/L (136-145) L 07/19/17 12:05 Potassium 5.4 mmol/L (3.5-5.1) H D 07/19/17 12:05 Chloride 95 mmol/L (98-107) L 07/19/17 12:05 Carbon Dioxide 32 mmol/L (21-32) 07/19/17 12:05 Anion Gap 6 (8-16) L 07/19/17 12:05 BUN 30 mg/dL (7-18) H 07/19/17 12:05 Creatinine 1.2 mg/dL (0.55-1.02) H D 07/19/17 12:05 Creat Clearance w eGFR 44.68 (>60) 07/19/17 12:05 Calcium 7.8 mg/dL (8.5-10.1) L 07/19/17 12:05 Total Bilirubin 0.3 mg/dL (0.2-1.0) D 07/19/17 12:05 AST 14 U/L (15-37) L D 07/19/17 12:05 ALT 11 U/L (12-78) L D 07/19/17 12:05 Alkaline Phosphatase 83 U/L (45-117) D 07/19/17 12:05 Total Protein 5.4 g/dl (6.4-8.2) L 07/19/17 12:05 Albumin 2.1 g/dl (3.4-5.0) L 07/19/17 12:05 INR, PTT INR 1.72 (0.82-1.09) H D 07/19/17 11:34 Imaging - Results Chest X-ray: Pending, Report Reviewed Problem List - Problems (1) Fever Code(s): R50.9 - FEVER, UNSPECIFIED Qualifiers: Fever type: due to other condition Qualified Code(s): R50.81 - Fever presenting with conditions classified elsewhere (2) Acute and chronic respiratory failure with hypoxia Code(s): J96.21 - ACUTE AND CHRONIC RESPIRATORY FAILURE WITH HYPOXIA (3) Hypotension Code(s): I95.9 - HYPOTENSION, UNSPECIFIED Qualifiers: Hypotension type: unspecified hypotension type Qualified Code(s): I95.9 - Hypotension, unspecified Assessment/Plan Ms. Sarabia is a 67 y.o female who is trached and chronically vented for COPD and lives in a snf; she also has afib, anemia, hypothyroidism. She presented to the ED with c/o fever and tachycardia, found to be tachycardic, hypotensive and febrile in the ED c/f sepsis with urinary and/or pulmonary sources most likely. She was admitted to ICU for further management and treatment. Resp: COPD with trach on vent (per pt. uses trach collar/vent intermittently); CXR unremarkable, no evidence of purulent copious secretions however possible aspiration pneumonitis could be source of current symptoms. -continue current vent management -will check ABG -trach with air leak currently stable however may need new trach if evidence of balloon defect -antibiotics as below -nebs and bronchodilators I/D: fever, leukocytosis and hypotension c/f sepsis with pulmonary and/or urinary sources -continue zosyn and vanco -follow fever/WBC -stat U/A and urine culture -f/u additional micro data -consider ID consult C/V: hypotension and tachycardia likely 2/2 sepsis vs. hypovolemia (chronic anemia with HgB 7.7). Also hx afib -check EKG -consider echo -volume resuscitation; PRBC -hold diltiazem, valsartan -hold asa/eliquis Heme: chronic anemia on eliquis for afib; now with HgB 7.7 and hypotension -hold asa and eliquis -transfuse 1 unit PRBC now -f/u cbc, coags -guiac stools -venodynes for DVT prophy GI: protein calorie malnutrition in setting of chronic illness, vent dependence -currently NPO -will need speech/swallow eval; pt. uses PMSV -bowel reg, H2B Renal: MARLYN in setting of hypovolemia, sepsis -hydration, transfusion -strict I/O's, barker cath -follow vanco levels -avoid nephrotoxic agents -consider renal lytes, renal ultrasound -follow creatinine, serum lytes Prophy: venodynes H2B CYNDY Mosquera Critical Care Time/MDM Note Total Critical Care Time: 35 Critical Care Statement: The care of this patient involved high complexity decision making to prevent further life threatening deterioration of the patient 's condition and/or to evaluate & treat vital organ system(s) failure or risk of failure.
[2017-07-19] MEDS: BUDESONIDE 0.25 MG/2ML INH SUSP VIAL NEB SCH (22:10)
[2017-07-20] MEDS ORDERED: ACETYLCYSTEINE 20% 200MG/ML 4 ML VIAL *FOR ORAL / INH USE ONLY NEB SCH
[2017-07-20] MEDS: ALBUTEROL SO4 2.5/IPRATROPIUM 0.5 INH SOL 3 ML VIAL.NEB. NEB SCH ×5 (00:02→22:59)
[2017-07-20] MEDS: SODIUM CHLORIDE 1,000 ML IV SCH ×3 (01:56→19:30)
[2017-07-20] MEDS ORDERED: PT OWN MED DRAWER 7, Y5N ONE ×6 (05:37→15:39)
[2017-07-20] MEDS: LEVOTHYROXINE NA 50 MCG TABLET (FP) PO SCH (06:10)
[2017-07-20 06:12] LABS: MCH 29.9 pg (25.7-33.7); MCHC 34.4 g/dl (32.0-36.0); MEAN PLT VOLUME 8.7 fl (7.5-11.1); PLATELET COUNT 487 K/MM3 (134-434); RDW 15.2 % (11.6-15.6); WHITE BLOOD COUNT 14.6 K/mm3 (4.0-10.0)
[2017-07-20 06:40] LABS: AMYLASE 16 U/L (25-115); ANION GAP 5 (8-16); CALCIUM 7.7 mg/dL (8.5-10.1); CO2 29 mmol/L (21-32); CREATININE 0.6 mg/dL (0.55-1.02); GLUCOSE,RANDOM 129 mg/dL (74-106); SGOT/AST 10 U/L (15-37); SGPT/ALT 10 U/L (12-78); TOT PROT 5.3 g/dl (6.4-8.2)
[2017-07-20 06:44] LABS: ALK PHOS 79 U/L (45-117); BILIRUBIN,TOTAL 0.8 mg/dL (0.2-1.0); CHOLESTEROL 163 mg/dL (50-200)
[2017-07-20 07:33] LABS: TOTAL CELLS COUNTED 100
--- NOTE | 2017-07-20 08:29 | PN ---
Progress Note, Physician Chief Complaint: ID Full note dictated Sent for evaluation of sepsis syndrome - Current Medication List Current Medications: Active Medications Acetaminophen (Tylenol -) 650 mg PO Q4H PRN PRN Reason: FEVER OR PAIN Last Admin: 07/20/17 01:21 Dose: 650 mg Albuterol Sulfate (Ventolin 0.083% Nebulizer Soln -) 1 amp NEB Q4H PRN PRN Reason: SHORT OF BREATH/WHEEZING Albuterol/Ipratropium (Duoneb -) 1 amp NEB QIDR [facility] Last Admin: 07/20/17 06:40 Dose: 1 amp Apixaban (Eliquis -) 5 mg PO BID [facility] Artificial Tears (Artificial Tears) 1 drop OU DAILY [facility] Aspirin (Ecotrin -) 81 mg PO DAILY [facility] Last Admin: 07/19/17 21:52 Dose: 81 mg Budesonide (Pulmicort 0.25 Mg Nebulizer -) 1 amp NEB BID [facility] Last Admin: 07/19/17 22:10 Dose: 1 amp Cholestyramine Resin (Questran Light Packet -) 4 gm PO BID [facility] Last Admin: 07/19/17 21:52 Dose: 4 gm Folic Acid (Folic Acid -) 1 mg PO DAILY [facility] Sodium Chloride (Normal Saline -) 1,000 mls @ 100 mls/hr IV ASDIR [facility] Last Admin: 07/20/17 01:56 Dose: 100 mls/hr Lactobacillus Acidophilus (Bacid -) 1 tab PO BID [facility] Last Admin: 07/19/17 21:52 Dose: 1 tab Levothyroxine Sodium (Synthroid -) 50 mcg PO DAILY@0700 [facility] Last Admin: 07/20/17 06:10 Dose: 50 mcg Lorazepam (Ativan -) 0.5 mg PO Q8H PRN PRN Reason: ANXIETY Melatonin (Melatonin) 3 mg PO HS [facility] Last Admin: 07/19/17 21:53 Dose: 3 mg Mirtazapine (Remeron -) 15 mg PO [facility] Last Admin: 07/19/17 21:52 Dose: 15 mg Multivitamins (Total B With C -) 1 each PO DAILY [facility] Oxycodone HCl (Roxicodone -) 5 mg PO Q4H PRN PRN Reason: PAIN Prednisone (Deltasone -) 40 mg PO BID [facility] Last Admin: 07/19/17 21:52 Dose: 40 mg Ranitidine HCl (Zantac -) 150 mg PO DAILY [facility] Thiamine HCl (Vitamin B1 -) 100 mg PO DAILY VALORIE - Objective Vital Signs: Vital Signs Temperature 98.6 F 07/20/17 08:13 Pulse Rate 100 H 07/20/17 08:00 Respiratory Rate 14 07/20/17 08:15 Blood Pressure 107/59 07/20/17 08:00 O2 Sat by Pulse Oximetry (%) 98 07/20/17 08:15 Constitutional: Yes: Other (Vent dependent) Neck: Yes: Other (trach) Integumentary: Yes: Pressure Ulcer Labs: CBC, BMP 07/20/17 05:00 07/20/17 05:00 INR, PTT INR 1.72 (0.82-1.09) H D 07/19/17 11:34 Problem List - Problems (1) Fever Code(s): R50.9 - FEVER, UNSPECIFIED Qualifiers: Fever type: due to other condition Qualified Code(s): R50.81 - Fever presenting with conditions classified elsewhere (2) Acute and chronic respiratory failure with hypoxia Code(s): J96.21 - ACUTE AND CHRONIC RESPIRATORY FAILURE WITH HYPOXIA (3) Sepsis due to other specified Staphylococcus Code(s): A41.1 - SEPSIS DUE TO OTHER SPECIFIED STAPHYLOCOCCUS Assessment/Plan Microbiology 06/20/17 08:54 Sputum - Endotrachea Suction/Ventilator Gram Stain - Final 06/20/17 08:54 Sputum - Endotrachea Suction/Ventilator Sputum Culture - Final Providencia Stuartii Beta Hem Streptococcus Group G 06/09/17 17:00 Nares - Right Nares MRSA Screen - Final Mr S Aureus 06/09/17 17:00 Nares - Left Nares MRSA Screen - Final Mr S Aureus 02/04/16 01:20 Sputum - Endotracheal Suction W/O Vent Gram Stain - Final 02/04/16 01:20 Sputum - Endotracheal Suction W/O Vent Sputum Culture - Final Pseudo Fluorescens/[place] Diphtheroid/Corynebacterium Laboratory Tests 07/19/17 07/19/17 07/19/17 11:34 11:34 20:00 WBC 17.4 H Hgb 7.7 L D Hct 23.4 L D Plt Count 596 H D INR 1.72 H D BUN Total Bilirubin AST ALT Alkaline Phosphatase Urine Nitrite Negative 07/20/17 05:00 WBC Hgb Hct Plt Count INR BUN 25 H Total Bilirubin 0.8 D AST 10 L D ALT 10 L Alkaline Phosphatase 79 Urine Nitrite Assessment Sepsis syndrome ? Pulmonary source though chest cxr not impressive infiltrate Acute and chronic respiratory failure Multidrug resistant organisms Plan Panculture Vancomycin and Meropenem based on previous cultures Contact isolation Sukhjinder GAMBLE
[2017-07-20] MEDS ORDERED: SODIUM POLYSTYRENE SULFONATE 15 GM/60 ML BOTTLE PO ONE (09:19)
[2017-07-20] MEDS: LACTOBACILLUS ACIDOPHILUS 1 EACH TAB (FP) PO SCH ×2 (09:21→21:14)
[2017-07-20] MEDS: ARTIFICIAL TEARS (POLYVINYL ALCOHOL 1.4%) OPTH DROPS OU SCH (09:21)
[2017-07-20] MEDS: THIAMINE HCL 100 MG TABLET (FP) PO SCH (09:22)
[2017-07-20] MEDS: CHOLESTYRAMINE/ASPARTAME 4 GM PACKET PO SCH ×2 (09:22→21:14)
[2017-07-20] MEDS: predniSONE 20 MG TABLET (UD) PO SCH ×2 (09:22→21:14)
[2017-07-20] MEDS: VITAMIN B COMPLEX W/C COMBO TABLET (FP) PO SCH (09:22)
[2017-07-20] MEDS: FOLIC ACID 1 MG TABLET (FP) PO SCH (09:22)
[2017-07-20] MEDS: ASPIRIN COATED 81 MG TABLET.EC PO SCH (09:22)
--- NOTE | 2017-07-20 09:40 | PN ---
Physical Exam: SUBJECTIVE: 67 yo woman w/ pmh of afib, COPD w/ vent dependence, gastroparesis and hypothyroidism, admitted w/ fever, SOB and tachycardia. ED course notable for WBC of 17, HgB 7.7, BUN/Cr of 30/1.2, started on IVFs and transfused 2 units, w / vanc/zosyn started for suspected urosepsis. Patient seen and examined by me this AM: - Complaining of chills. Wants to eat. Denies SOB, cough, palpitations, abdominal pain, N/V, rashes, dysuria, diarrhea/constipation. No other major overnight events. - BP increased w/ IVFs. MAPs in high 70s. - Plan by ID for sepsis work-up, vanco/meropenem for prior antibiogram for multidrug resistant organism - H/H uptrending 7.7 -> 10.9 after two units pRBCs. WBC downtrending from 17.2 - > 14.6, left shift. - HyperK in AM 6.0. Given kayexylate PO w/ PM labs ordered. - UA unremarkable. CXR w/ no focal infiltrates. - Vent settings 10/350/45/5 OBJECTIVE: Vital Signs Intake & Output 07/17/17 07/18/17 07/19/17 07/20/17 23:59 23:59 23:59 23:59 Intake Total 550 950 Output Total 300 500 Balance 250 450 Weight 38.7 kg Period Temp Pulse Resp BP Sys/Parra Pulse Ox Last 24 Hr 98.6 F-100.3 F 95-113 14-18 83-121/53-67 95-100 GENERAL: Frail, cachectic elderly woman, awake, alert and oriented, laying in bed w/ trach collar, vented. HEAD: Normal with no signs of trauma. Alopecia. EYES: PERRL, extraocular movements intact, sclera anicteric, conjunctiva clear. No ptosis. ENT: Ears normal, nares patent, oropharynx clear without exudates, moist mucous membranes NECK: Trachea midline w/ trach tube w/ no significant erythema, swelling. Packed w/ gauze. LUNGS: Mechanical breath sounds. Trace crackles. HEART: Irregularly irregular, S1, S2 without murmur, rub or gallop. ABDOMEN: Soft, nondistended, tender to palpation in RUQ and LLQ. Normoactive bowel sounds, no masses, no organomegaly EXTREMITIES: 2+ pulses, warm, well-perfused, no edema. NEUROLOGICAL: Cranial nerves II through XII grossly intact. Mouths words for speech, unable to vocalize given trach. Can answer simple and complex questions. Gait not observed. PSYCH: Normal mood, normal affect. Pleasant, interactive. Laboratory Results - last 24 hr CBC,CMP WBC 14.6 K/mm3 (4.0-10.0) H 07/20/17 05:00 RBC 3.63 M/mm3 (3.60-5.2) D 07/20/17 05:00 Hgb 10.9 GM/dL (10.7-15.3) D 07/20/17 05:00 Hct 31.6 % (32.4-45.2) L D 07/20/17 05:00 MCV 87.0 fl (80-96) 07/20/17 05:00 MCH 29.9 pg (25.7-33.7) 07/20/17 05:00 MCHC 34.4 g/dl (32.0-36.0) 07/20/17 05:00 RDW 15.2 % (11.6-15.6) 07/20/17 05:00 Plt Count 487 K/MM3 (134-434) H 07/20/17 05:00 MPV 8.7 fl (7.5-11.1) 07/20/17 05:00 Total Counted 100 07/20/17 05:00 Neutrophils % Y 07/20/17 05:00 Neutrophils % (Manual) 93 % (42.8-82.8) H* 07/20/17 05:00 Band Neuts % (Manual) 2 % (0-10) 07/20/17 05:00 Lymphocytes % Y 07/20/17 05:00 Lymphocytes % (Manual) 2 % (8-40) L 07/20/17 05:00 Monocytes % (Manual) 3 % (3.8-10.2) L 07/20/17 05:00 Sodium 135 mmol/L (136-145) L 07/20/17 05:00 Potassium 6.0 mmol/L (3.5-5.1) H 07/20/17 05:00 Chloride 101 mmol/L (98-107) 07/20/17 05:00 Carbon Dioxide 29 mmol/L (21-32) 07/20/17 05:00 Anion Gap 5 (8-16) L 07/20/17 05:00 BUN 25 mg/dL (7-18) H 07/20/17 05:00 Creatinine 0.6 mg/dL (0.55-1.02) D 07/20/17 05:00 Creat Clearance w eGFR > 60 (>60) 07/20/17 05:00 Random Glucose 129 mg/dL (74-106) H D 07/20/17 05:00 Lactic Acid 1.6 mmol/L (0.4-2.0) 07/19/17 11:50 Calcium 7.7 mg/dL (8.5-10.1) L 07/20/17 05:00 Total Bilirubin 0.8 mg/dL (0.2-1.0) D 07/20/17 05:00 AST 10 U/L (15-37) L D 07/20/17 05:00 ALT 10 U/L (12-78) L 07/20/17 05:00 Alkaline Phosphatase 79 U/L (45-117) 07/20/17 05:00 Troponin I < 0.02 ng/ml (0.00-0.05) 07/19/17 12:05 Total Protein 5.3 g/dl (6.4-8.2) L 07/20/17 05:00 Albumin 2.0 g/dl (3.4-5.0) L 07/20/17 05:00 Triglycerides 113 mg/dL (35-160) 07/20/17 05:00 Cholesterol 163 mg/dL (50-200) 07/20/17 05:00 Total LDL Cholesterol 93 mg/dL (5-100) 07/20/17 05:00 HDL Cholesterol 47 mg/dL (40-60) 07/20/17 05:00 Total Amylase 16 U/L (25-115) L 07/20/17 05:00 Lipase 69 U/L (73-393) L 07/20/17 05:00 07/19/17 07/19/17 07/19/17 18:15 18:15 20:00 WBC RBC Hgb Hct MCV MCH MCHC RDW Plt Count MPV Total Counted Neutrophils % Neutrophils % (Manual) Band Neuts % (Manual) Lymphocytes % Lymphocytes % (Manual) Monocytes % (Manual) Puncture Site ABG pH ABG pCO2 at Pt Temp ABG pO2 at Pt Temp ABG HCO3 ABG O2 Sat (Measured) ABG O2 Content ABG Base Excess Hitesh Test O2 Delivery Device Oxygen Flow Rate Vent Mode Vent Rate Mechanical Rate PEEP Pressure Support Vent Sodium Potassium Chloride Carbon Dioxide Anion Gap BUN Creatinine Creat Clearance w eGFR Random Glucose Calcium Total Bilirubin AST ALT Alkaline Phosphatase Total Protein Albumin Triglycerides Cholesterol Total LDL Cholesterol HDL Cholesterol Total Amylase Lipase Urine Color Ltyellow Urine Appearance Slcloudy Urine pH 5.0 Ur Specific [place] <= 1.005 Urine Protein Negative Urine Glucose (UA) Negative Urine Ketones Negative Urine Blood Negative Urine Nitrite Negative Urine Bilirubin Negative Urine Urobilinogen Negative Anti-A Titer Cancelled Blood Type Cancelled O POSITIVE Antibody Screen Cancelled Negative Crossmatch See Detail Spec Expiration Date Cancelled 07/19/17 07/20/17 07/20/17 21:00 05:00 05:00 WBC 14.6 H RBC 3.63 D Hgb 10.9 D Hct 31.6 L D MCV 87.0 MCH 29.9 MCHC 34.4 RDW 15.2 Plt Count 487 H MPV 8.7 Total Counted 100 Neutrophils % Y Neutrophils % (Manual) 93 H* Band Neuts % (Manual) 2 Lymphocytes % Y Lymphocytes % (Manual) 2 L Monocytes % (Manual) 3 L Puncture Site Right radial ABG pH 7.35 ABG pCO2 at Pt Temp 53.7 H D ABG pO2 at Pt Temp 99.3 ABG HCO3 28.8 H ABG O2 Sat (Measured) 98.1 ABG O2 Content 10.1 L ABG Base Excess 3.3 H Hitesh Test Positive O2 Delivery Device Mech vent Oxygen Flow Rate 45% Vent Mode A/c Vent Rate 10 Mechanical Rate Yes PEEP 5.0 Pressure Support Vent 350 Sodium 135 L Potassium 6.0 H Chloride 101 Carbon Dioxide 29 Anion Gap 5 L BUN 25 H Creatinine 0.6 D Creat Clearance w eGFR > 60 Random Glucose 129 H D Calcium 7.7 L Total Bilirubin 0.8 D AST 10 L D ALT 10 L Alkaline Phosphatase 79 Total Protein 5.3 L Albumin 2.0 L Triglycerides 113 Cholesterol 163 Total LDL Cholesterol 93 HDL Cholesterol 47 Total Amylase 16 L Lipase 69 L Urine Color Urine Appearance Urine pH Ur Specific [place] Urine Protein Urine Glucose (UA) Urine Ketones Urine Blood Urine Nitrite Urine Bilirubin Urine Urobilinogen Anti-A Titer Blood Type Antibody Screen Crossmatch Spec Expiration Date Active Medications Generic Name Dose Route Start Last Admin Trade Name Freq PRN Reason Stop Dose Admin Acetaminophen 650 mg 07/19/17 19:06 07/20/17 01:21 Tylenol - PO 650 mg Q4H PRN Administration FEVER OR PAIN Albuterol Sulfate 1 amp 07/19/17 19:06 Ventolin 0.083% Nebulizer Soln - NEB Q4H PRN SHORT OF BREATH/WHEEZING Albuterol/Ipratropium 1 amp 07/20/17 00:00 07/20/17 06:40 Duoneb - NEB 1 amp QIDR VALORIE Administration Apixaban 5 mg 07/19/17 22:00 Eliquis - PO BID VALORIE Artificial Tears 1 drop 07/20/17 10:00 07/20/17 09:21 Artificial Tears OU 1 drop DAILY VALORIE Administration Aspirin 81 mg 07/19/17 19:15 07/20/17 09:22 Ecotrin - PO 81 mg DAILY VALORIE Administration Budesonide 1 amp 07/19/17 22:00 07/19/17 22:10 Pulmicort 0.25 Mg Nebulizer - NEB 1 amp BID VALORIE Administration Cholestyramine Resin 4 gm 07/19/17 22:00 07/20/17 09:22 Questran Light Packet - PO 4 gm BID VALORIE Administration Folic Acid 1 mg 07/20/17 10:00 07/20/17 09:22 Folic Acid - PO 1 mg DAILY VALORIE Administration Sodium Chloride 1,000 mls @ 100 mls/hr 07/19/17 19:30 07/20/17 01:56 Normal Saline - IV 100 mls/hr ASDIR VALORIE Administration Vancomycin HCl 750 mg/ 250 mls @ 250 mls/hr 07/20/17 10:00 Dextrose IVPB DAILY VALORIE Protocol Lactobacillus Acidophilus 1 tab 07/19/17 22:00 07/20/17 09:21 Bacid - PO 1 tab BID [facility]ORIE Administration Levothyroxine Sodium 50 mcg 07/20/17 07:00 07/20/17 06:10 Synthroid - PO 50 mcg DAILY@0700 [facility]IE Administration Lorazepam 0.5 mg 07/19/17 19:06 Ativan - PO Q8H PRN ANXIETY Melatonin 3 mg 07/19/17 22:00 07/19/17 21:53 Melatonin PO 3 mg HS [facility]IE Administration Mirtazapine 15 mg 07/19/17 22:00 07/19/17 21:52 Remeron - PO 15 mg HS [facility]IE Administration Multivitamins 1 each 07/20/17 10:00 07/20/17 09:22 Total B With C - PO 1 each DAILY [facility]IE Administration Oxycodone HCl 5 mg 07/19/17 19:06 Roxicodone - PO Q4H PRN PAIN Prednisone 40 mg 07/19/17 22:00 07/20/17 09:22 Deltasone - PO 40 mg BID [facility]IE Administration Ranitidine HCl 150 mg 07/20/17 10:00 07/20/17 09:22 Zantac - PO 150 mg DAILY [facility]IE Administration Thiamine HCl 100 mg 07/20/17 10:00 07/20/17 09:22 Vitamin B1 - PO 100 mg DAILY [facility]ORIE Administration 07/19/17 07/19/17 07/19/17 11:34 11:34 12:05 WBC 17.4 H RBC 2.66 L D Hgb 7.7 L D Hct 23.4 L D MCV 87.7 MCHC 33.2 RDW 15.0 D Plt Count 596 H D Neutrophils % Lymphocytes % INR 1.72 H D Sodium 133 L Potassium 5.4 H D Chloride 95 L Carbon Dioxide 32 Anion Gap 6 L BUN 30 H Creatinine 1.2 H D Blood Type Antibody Screen 07/19/17 07/19/17 07/20/17 18:15 18:15 05:00 WBC 14.6 H RBC 3.63 D Hgb 10.9 D Hct 31.6 L D MCV 87.0 MCHC 34.4 RDW 15.2 Plt Count 487 H Neutrophils % Y Lymphocytes % Y INR Sodium Potassium Chloride Carbon Dioxide Anion Gap BUN Creatinine Blood Type Cancelled O POSITIVE Antibody Screen Cancelled Negative 07/20/17 05:00 WBC RBC Hgb Hct MCV MCHC RDW Plt Count Neutrophils % Lymphocytes % INR Sodium 135 L Potassium 6.0 H Chloride 101 Carbon Dioxide 29 Anion Gap 5 L BUN 25 H Creatinine 0.6 D Blood Type Antibody Screen Micro 07/19/17 21:00 Gram Stain - Pending Sputum - Endotrachea Suction/Ventilator Sputum Culture - Pending 07/19/17 11:50 Blood Culture - Pending Blood - Peripheral Venous 07/19/17 12:35 Blood Culture - Pending Blood - Peripheral Venous Imaging: EKG (07/19) - Low voltage. Sinus tach w/ frequent PVCs. Rate 110s. No QTC prolongation. CXR (07/19) - No infiltrates or pneumothorax. Increased interstitial markings consistent w/ possible chronic ILD. Trach tube noted. No cardiomegaly. No significant acute pathology. ASSESSMENT/PLAN: 67 yo woman w/ pmh of afib, COPD w/ vent dependence, gastroparesis and hypothyroidism, admitted w/ fever, SOB and tachycardia, suspicion of urosepsis vs. HCAP Vs. VAP given elevated WBC w/ left shift, tachycardia/hypotension. Pt clinically improved w/ IVF, abx and brochodilators/MATTI/ICS. BP improved to 110s systolic, tachycardia improving, w/ downtrending WBC count, afebrile. Current plan for continued abx coverage w/ vanc/meropenem per ID recs, IVFs and continuation of ICS/MATTI/brochodilator tx fo respiratory sxs's. Resume Cardizem , eliquis per cardiology recs. #Neuro -Tylenol PRN for pain control #Cardiac - Daily weights - Rate control - Resume cardizem 120 qd - Hold diovan in setting of hyperK - Plan for questran 4 BID, lopressor 5mg q4 prn #Pulm - Vent-dependent. Vent settings 10/350/45/5. Titrate to >94% - ICS/MATTI/bronchodilators - Prednisone 40 qd #ID - f/u all cultures - Contact isolation - Vanc/Meropenem for suspected MRSA PNA based on prior cultures - ID recs appreciated - Trend fever, WBC - Lactate 1.8 #Renal -Strict I&Os -Daily BMPs -HyperK in AM. Kayexlate given. f/u PM BMP #Heme - FOBT - Trend H/H. Transfuse at <7 - Anemia workup - Continue home eliquis, d/c ASA per cards #Endo - Synthroid for hypothyroidism #GI -soft diet - ensure #FEN -Fluids: IVFs -Electrolytes: Daily BMPs, Trend BUN/Cr, K -Nutrition: Soft diet/thin liquids - ensure #PPX -Eliquis for DVT ppx -PPI for GI ppx #Dispo - Dispo to ICU for further monitoring/management Hamilton Miles, PGY1 Plan discussed with attending, Dr. Alexander Visit type - Emergency Visit Emergency Visit: No - New Patient This patient is new to me today: Yes Date on this admission: 07/20/17 - Critical Care Critical Care patient: Yes Total Critical Care Time (in minutes): 45 Critical Care Statement: The care of this patient involved high complexity decision making to prevent further life threatening deterioration of the patient 's condition and/or to evaluate & treat vital organ system(s) failure or risk of failure.
[2017-07-20] MEDS ORDERED: MEROPENEM 500 MG VIAL (RESTRICTED TO ID) IVPB SCH (10:00)
[2017-07-20] MEDS ORDERED: VALSARTAN 160 MG TABLET (UD) PO SCH (10:00)
[2017-07-20] MEDS ORDERED: MEROPENEM 500 MG in DEXTROSE 5%-WATER - 100 ML IVPB SCH (10:00)
[2017-07-20] MEDS ORDERED: RANITIDINE HCL 150 MG TABLET (FP) PO SCH (10:00)
[2017-07-20] MEDS: BUDESONIDE 0.25 MG/2ML INH SUSP VIAL NEB SCH ×3 (10:00→23:00)
[2017-07-20] MEDS: VANCOMYCIN 750 MG in DEXTROSE 5%-WATER - 250 ML IVPB SCH (10:19)
--- NOTE | 2017-07-20 10:21 | CON.CARD ---
Consult Consult Specialty:: Cardiology Referred by:: Dino Lopez MD Reason for Consultation:: PAF - History of Present Illness Chief Complaint: Fever, dyspnea History of Present Illness: 67yo female NHR with h/o HTN, COPD with chronic hypoxic respiratory failure s/p trach and maintained on trach collar, paroxysmal atrial fibrillation on NOAC, gastroparesis and hypothyroidism referred from the half-way for worsening shortness of breath, chills, fever and tachycardia. Found to have leukocytosis, rapid afib, anemia receiving transfusion, possible sepsis syndrome. - History Source History Provided By: Medical Record Limitations to Obtaining History: Clinical Condition - Past Medical History [employer] WORK[employer]: Yes: CVA, Other (poor short term memory) Cardio/Vascular: Yes: AFIB, HTN Pulmonary: Yes: COPD, Previously Intubated, Other (RESPIRATORY FAILURE) Infectious Disease: Yes: C-Diff Endocrine: Yes: Hypothyroidism - Past Surgical History Past Surgical History: Yes: Appendectomy - Alcohol/Substance Use Hx Alcohol Use: No History of Substance Use: reports: None - Smoking History Smoking history: Former smoker Have you smoked in the past 12 months: No If you are a former smoker, when did you quit?: 2008 - Social History Usual Living Arrangement: [facility] ADL: Family Assistance History of Recent Travel: No Home Medications - Allergies Allergies/Adverse Reactions: Allergies Allergy/AdvReac Type Severity Reaction Status Date / Time peas Allergy Severe Difficulty Verified 07/19/17 12:10 Breathing Iodinated Contrast- Oral and Allergy Verified 07/19/17 12:10 IV Dye [Iodinated Contrast Media - IV Dye] iodine Allergy Verified 07/19/17 12:10 - Home Medications Home Medications: Ambulatory Orders Albuterol 2.5/Ipratropium 0.5 [Duoneb -] 1 neb NEB TID 02/01/16 Aspirin [Ecotrin] 81 mg PO DAILY 02/01/16 Folic Acid 1 mg PO DAILY 02/01/16 Lactobacillus Acidophilus [Bacid -] 1 each PO BID 02/01/16 Levothyroxine [Synthroid -] 50 mcg PO DAILY 02/01/16 Lorazepam 0.5 mg PO TID PRN 02/01/16 Melatonin 3 mg PO HS 02/01/16 Mirtazapine 15 mg PO HS 02/01/16 Peg 400/Hypromellose/Glycerin [Artificial Tears Drops] 1 drop OU DAILY 02/01/16 Thiamine HCl [Vitamin B1 -] 100 mg PO DAILY 02/01/16 Vitamin B Complex Vit C No.3 [B Complex with Vitamin C] 1 each PO DAILY Ranitidine [Zantac -] 150 mg PO DAILY tablet 02/09/16 Acetylcysteine Po/INH 20% [Mucomyst 20 Oral / INH Use Only*] 200 mg NEB QIDR vial 06/14/17 Budesonide [Pulmicort 0.25 mg Nebulizer -] 1 amp NEB BID amp 06/14/17 Cholestyramine/Aspartame [Questran Light Packet -] 4 gm PO BID packet 06/14/17 Acetaminophen [Tylenol .Regular Strength -] 650 mg PO Q4H PRN #0 tablet Albuterol 0.083% Nebulizer Carina [Ventolin 0.083% Nebulizer Soln -] 1 amp NEB Q4H PRN #180 amp 06/23/17 Apixaban [Eliquis -] 5 mg PO BID tablet 06/23/17 Budesonide [Pulmicort 0.25 mg Nebulizer -] 1 amp NEB BID amp 06/23/17 Cholestyramine/Aspartame [Questran Light Packet -] 4 gm PO BID packet 06/23/17 Diltiazem Cd [Cardizem Cd -] 300 mg PO DAILY #30 cap 06/23/17 Lorazepam [Ativan] 0.5 mg PO Q8H PRN #0 tablet MDD 3 06/23/17 Melatonin 5 mg PO HS tab 06/23/17 Oxycodone HCl [Roxicodone -] 5 mg PO Q4H PRN #0 tablet MDD 6 06/23/17 Prednisone [Deltasone -] 40 mg PO BID #90 tablet 06/23/17 Valsartan [Diovan] 320 mg PO DAILY tablet 06/23/17 Levofloxacin [Levaquin] 500 mg PO DAILY 07/19/17 Review of Systems Unable to obtain ROS, reason: Trach collar Vital Signs: Vital Signs Temperature 98.7 F 07/20/17 10:00 Pulse Rate 108 H 07/20/17 10:00 Respiratory Rate 21 07/20/17 10:15 Blood Pressure 117/75 07/20/17 10:00 O2 Sat by Pulse Oximetry (%) 98 07/20/17 08:38 Constitutional: Yes: No Distress, Calm Neck: Yes: Supple Respiratory: Yes: Regular, Diminished, Intubated, Mechanically Ventilated, Rhonchi Gastrointestinal: Yes: Normal Bowel Sounds, Soft Cardiovascular: Yes: Tachycardia JVD: No Carotid Bruit: No Heart Sounds: Yes: S1, S2 Murmur: Yes: Systolic Murmur, Grade 1 Edema: No - Other Data Labs, Other Data: CBC, BMP 07/20/17 05:00 07/20/17 05:00 INR, PTT INR 1.72 (0.82-1.09) H D 07/19/17 11:34 Tele: ST Ejection Fraction %: LVEF > or = 40 % Imaging - Results Chest X-ray: Report Reviewed (NAD) Problem List - Problems (1) Fever Code(s): R50.9 - FEVER, UNSPECIFIED Qualifiers: Fever type: due to other condition Qualified Code(s): R50.81 - Fever presenting with conditions classified elsewhere (2) Sepsis due to other specified Staphylococcus Code(s): A41.1 - SEPSIS DUE TO OTHER SPECIFIED STAPHYLOCOCCUS (3) A-fib Code(s): I48.91 - UNSPECIFIED ATRIAL FIBRILLATION Qualifiers: Atrial fibrillation type: paroxysmal Qualified Code(s): I48.0 - Paroxysmal atrial fibrillation (4) COPD (chronic obstructive pulmonary disease) Code(s): J44.9 - CHRONIC OBSTRUCTIVE PULMONARY DISEASE, UNSPECIFIED Qualifiers : COPD type: unspecified COPD Qualified Code(s): J44.9 - Chronic obstructive pulmonary disease, unspecified (5) Chronic respiratory failure with hypoxia Code(s): J96.11 - CHRONIC RESPIRATORY FAILURE WITH HYPOXIA (6) Diastolic heart failure Code(s): I50.30 - UNSPECIFIED DIASTOLIC (CONGESTIVE) HEART FAILURE Qualifiers : Heart failure chronicity: chronic Qualified Code(s): I50.32 - Chronic diastolic (congestive) heart failure (7) Gastroparesis Code(s): K31.84 - GASTROPARESIS (8) Hypothyroid Code(s): E03.9 - HYPOTHYROIDISM, UNSPECIFIED Qualifiers: Hypothyroidism type: unspecified Qualified Code(s): E03.9 - Hypothyroidism, unspecified (9) Leukocytosis Code(s): D72.829 - ELEVATED WHITE BLOOD CELL COUNT, UNSPECIFIED Qualifiers: Leukocytosis type: unspecified Qualified Code(s): D72.829 - Elevated white blood cell count, unspecified (10) Sepsis Code(s): A41.9 - SEPSIS, UNSPECIFIED ORGANISM Qualifiers: Sepsis type: sepsis due to unspecified organism Qualified Code(s): A41.9 - Sepsis, unspecified organism (11) Sinus tachycardia Code(s): R00.0 - TACHYCARDIA, UNSPECIFIED (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 Sepsis syndrome, possible pulmonary source with h/o multidrug resistant organisms 2. COPD with Chronic Hypoxic Respiratory Failure post tracheostomy 3. Diastolic LV dysfunction with class I NYHA classification LV congestive heart failure, compensated/euvolemic 4. Paroxysmal Atrial Fibrillation/atrial tachycardia on NOAC, [id number] score of 4 5. HTN 6. Hypothyroidism 7. History of C. Difficile Colitis 8. Hyperkalemia P: 1. Vancomycin and Meropenem based on previous cultures, f/u C&S, contact isolation 2. Inhaled bronchodilators, O2 to keep SpO2 >90%, prednisone with GI protection 3. Resume Cardizem CD 120 qd, hold Diovan 320 qd pending resolution of hyperkalemia, Questran 4 bid, Lopressor 5 q4 prn 4. Continue Eliquis 5 bid for DVT and stroke thrombophylaxis given elevated risk score, d/c concomitant ASA 81 qd 5. Thank you for consultative opportunity
--- NOTE | 2017-07-20 11:10 | EKG ---
Test Reason : Blood Pressure : / mmHG Vent. Rate : 117 BPM Atrial Rate : 117 BPM P-R Int : 144 ms QRS Dur : 072 ms QT Int : 340 ms P-R-T Axes : 066 005 065 degrees QTc Int : 474 ms SINUS TACHYCARDIA WITH FREQUENT and consecutive PREMATURE VENTRICULAR COMPLEXES LOW VOLTAGE QRS ABNORMAL ECG WHEN COMPARED WITH ECG OF 19-JUL-2017 12:00, PREVIOUS ECG HAS UNDETERMINED RHYTHM, NEEDS REVIEW ST NO LONGER DEPRESSED IN ANTEROLATERAL LEADS Confirmed by LINDA LOPEZ MD ([id number]) on 07/20/2017 11:09:56 AM Referred By: Confirmed By:LINDA LOPEZ MD
--- NOTE | 2017-07-20 11:44 | CONS ---
DATE OF CONSULTATION: DATE OF DICTATION: 07/20/2017 HISTORY OF PRESENT ILLNESS: This is a 67-year-old frail woman from [facility] with a past history of chronic ventilatory dependency and a tracheostomy who was brought to the emergency room with complaints of fever, tachycardia in the 120s, and shortness of breath. Her pulse was 120 and her oxygen saturation was found to be 96%. She was admitted to the ICU. Note that the patient has been recently discharged June 23, 2017, from the hospital. She is alert and arousable on the ventilator and apparently eats without the need for a feeding tube. PAST SURGICAL HISTORY: Includes recent tracheostomy, appendectomy PAST MEDICAL HISTORY: COPD and hypothyroidism. MEDICATIONS: Levothyroxine, ranitidine, Eliquis, diltiazem, and Diovan. ALLERGIES: To IODINATED CONTRAST, IODINE. SOCIAL HISTORY: A former smoker, she gave this up many years ago. No history of alcohol use. She is a [place] [facility] resident. FAMILY HISTORY: Unobtainable from patient. REVIEW OF SYSTEMS: Respiratory: Shortness of breath. No cough or hemoptysis. Cardiac: No chest pain, palpitations, or syncope. Gastrointestinal: No abdominal pain, nausea, vomiting, blood per rectum, or diarrhea. Genitourinary: Currently with indwelling Nelson catheter. No gross hematuria. Neurologic: No headache, loss of consciousness, diminished strength. PHYSICAL EXAMINATION: Vital signs: Her admitting temperature was 102.4, pulse 138, respiratory rate 24, blood pressure 94/57. Neck: With a tracheostomy. Full range of motion. Lungs: No crackles, wheezing. Heart: S1, S2, regular rhythm, without audible murmur or gallop. Abdomen: Normoactive bowel sounds. No guarding or rebound. No masses. Extremities: No clubbing, cyanosis, or edema. Skin: Revealed a stage 2 sacral decubitus. LABORATORY DATA: The admitting white count 17.4, hemoglobin 7.7, hematocrit 23, platelets 596. INR 1.72. ABG 7.35, 54, 99 on 45% oxygen. BUN 30, creatinine 1.2, clearance 44. Liver enzymes within normal limits. Troponin less than 0.02. Urinalysis negative for nitrites. Blood and sputum cultures sent. Previous sputum culture was Providencia stuartii and beta-hemolytic streptococcus group G dated June 20. MRSA screening nares [id number] positive. Chest x-ray was reviewed, shows no obvious acute pathology. ASSESSMENT: This is a 67-year-old female with chronic obstructive pulmonary disease and chronic ventilatory dependency who presents with sepsis syndrome, likely source respiratory tract, though no obvious infiltrates seen. History of [id number] organisms recently including methicillin-resistant staphylococcus aureus and Providencia species. PLAN: Haley culture, blood, urine, and sputum. Empiric therapy with vancomycin, meropenem adjusted for body weight and creatinine clearance. Contact isolation for resistant organisms. LESTER SOMMERS M.D. ANDRE/[id number]
--- NOTE | 2017-07-20 12:20 | PN ---
Teaching Attending Note Name of Resident: Hamilton Miles ATTENDING PHYSICIAN STATEMENT I saw and evaluated the patient. I reviewed the resident's note and discussed the case with the resident. I agree with the resident's findings and plan as documented. SUBJECTIVE: Pt seen and examined in the ICU. Vented, awake. Blood pressure improving with IVF resuscitation. No further fevers. OBJECTIVE: Last Vital Signs Temp Pulse Resp BP Pulse Ox 98.7 F 108 H 18 117/75 98 07/20/17 10:00 07/20/17 10:00 07/20/17 12:12 07/20/17 10:00 07/20/17 08:38 Intake & Output 07/17/17 07/18/17 07/19/17 07/20/17 23:59 23:59 23:59 23:59 Intake Total 550 950 Output Total 300 500 Balance 250 450 Weight 85 lb 5.102 oz 85 lb 5.102 oz Gen: vented, awake, tachypneic Heart: tachycardic, irregular Lung: scattered rhonchi Abd: soft, nontender Ext: no edema CBC, BMP 07/20/17 05:00 07/20/17 05:00 Active Medications Acetaminophen (Tylenol -) 650 mg PO Q4H PRN PRN Reason: FEVER OR PAIN Last Admin: 07/20/17 01:21 Dose: 650 mg Albuterol Sulfate (Ventolin 0.083% Nebulizer Soln -) 1 amp NEB Q4H PRN PRN Reason: SHORT OF BREATH/WHEEZING Albuterol/Ipratropium (Duoneb -) 1 amp NEB QIDR [facility] Last Admin: 07/20/17 11:36 Dose: 1 amp Apixaban (Eliquis -) 5 mg PO BID [facility] Artificial Tears (Artificial Tears) 1 drop OU DAILY [facility] Last Admin: 07/20/17 09:21 Dose: 1 drop Budesonide (Pulmicort 0.25 Mg Nebulizer -) 1 amp NEB BID [facility] Last Admin: 07/20/17 10:00 Dose: 1 amp Cholestyramine Resin (Questran Light Packet -) 4 gm PO BID [facility] Last Admin: 07/20/17 09:22 Dose: 4 gm Diltiazem HCl (Cardizem Cd -) 120 mg PO DAILY [facility] Folic Acid (Folic Acid -) 1 mg PO DAILY [facility] Last Admin: 07/20/17 09:22 Dose: 1 mg Sodium Chloride (Normal Saline -) 1,000 mls @ 100 mls/hr IV ASDIR [facility] Last Admin: 07/20/17 10:32 Dose: 100 mls/hr Vancomycin HCl 750 mg/ (Dextrose) 250 mls @ 250 mls/hr IVPB DAILY [facility] PRN Reason: Protocol Last Admin: 07/20/17 10:19 Dose: 250 mls/hr Lactobacillus Acidophilus (Bacid -) 1 tab PO BID [facility] Last Admin: 07/20/17 09:21 Dose: 1 tab Levothyroxine Sodium (Synthroid -) 50 mcg PO DAILY@0700 [facility] Last Admin: 07/20/17 06:10 Dose: 50 mcg Lorazepam (Ativan -) 0.5 mg PO Q8H PRN PRN Reason: ANXIETY Melatonin (Melatonin) 3 mg PO HS [facility] Last Admin: 07/19/17 21:53 Dose: 3 mg Mirtazapine (Remeron -) 15 mg PO HS [facility] Last Admin: 07/19/17 21:52 Dose: 15 mg Multivitamins (Total B With C -) 1 each PO DAILY [facility] Last Admin: 07/20/17 09:22 Dose: 1 each Oxycodone HCl (Roxicodone -) 5 mg PO Q4H PRN PRN Reason: PAIN Prednisone (Deltasone -) 40 mg PO BID [facility] Last Admin: 07/20/17 09:22 Dose: 40 mg Ranitidine HCl (Zantac -) 150 mg PO DAILY [facility] Last Admin: 07/20/17 09:22 Dose: 150 mg Thiamine HCl (Vitamin B1 -) 100 mg PO DAILY [facility] Last Admin: 07/20/17 09:22 Dose: 100 mg ASSESSMENT AND PLAN: r/o Pneumonia Severe Sepsis Acute Kidney Injury Chronic Hypoxic Vent Dependent Respiratory Failure Severe COPD LV Diastolic Dysfunction Paroxysmal Atrial Fibrilation HTN Hypothyroidism - continue antibiotics per ID - f/u cultures - IVF - monitor urine output, creatinine - kayexalate - continue prednisone - inhaled bronchodilators - O2 to keep SpO2 >90% - rate control - continue anticoagulation - PO as tolerated - DVT/GI prophylaxis - continue ICU monitoring critical care time spent in reviewing chart, evaluating patient and formulating plan 35 min
--- NOTE | 2017-07-20 12:59 | CONSULT ---
Consult Consult Specialty:: Hematology/Oncology - History of Present Illness History of Present Illness: The patient is a 67 year old female resident from [facility], with a significant past medical history of Anemia, Afib, COPD, Gastroparesis, Hypothyroidism who presents to the emergency department for evaluation of fever and tachycardia. As per EMS, patient was tachycardic to 120s and had difficulty breathing. Upon arrival patients vital signs were significant for 120 pulse rate and 96 O2 saturation. Patient was recently admitted at [facility] for SOB and hypoxia and was discharged on 06/23/2017. hematology consulted for anemia. Patient seen and examined. 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, Other (poor short term memory) Cardio/Vascular: Yes: AFIB, HTN Pulmonary: Yes: COPD, Previously Intubated, Other (RESPIRATORY FAILURE) Infectious Disease: Yes: C-Diff Endocrine: Yes: Hypothyroidism - Past Surgical History Past Surgical History: Yes: Appendectomy - Alcohol/Substance Use Hx Alcohol Use: No History of Substance Use: reports: None - Smoking History Smoking history: Former smoker Have you smoked in the past 12 months: No If you are a former smoker, when did you quit?: 2008 - Social History Usual Living Arrangement: [facility] ADL: Family Assistance History of Recent Travel: No Home Medications - Allergies Allergies/Adverse Reactions: Allergies Allergy/AdvReac Type Severity Reaction Status Date / Time peas Allergy Severe Difficulty Verified 07/19/17 12:10 Breathing Iodinated Contrast- Oral and Allergy Verified 07/19/17 12:10 IV Dye [Iodinated Contrast Media - IV Dye] iodine Allergy Verified 07/19/17 12:10 - Home Medications Home Medications: Ambulatory Orders Albuterol 2.5/Ipratropium 0.5 [Duoneb -] 1 neb NEB TID 02/01/16 Aspirin [Ecotrin] 81 mg PO DAILY 02/01/16 Folic Acid 1 mg PO DAILY 02/01/16 Lactobacillus Acidophilus [Bacid -] 1 each PO BID 02/01/16 Levothyroxine [Synthroid -] 50 mcg PO DAILY 02/01/16 Lorazepam 0.5 mg PO TID PRN 02/01/16 Melatonin 3 mg PO HS 02/01/16 Mirtazapine 15 mg PO HS 02/01/16 Peg 400/Hypromellose/Glycerin [Artificial Tears Drops] 1 drop OU DAILY 02/01/16 Thiamine HCl [Vitamin B1 -] 100 mg PO DAILY 02/01/16 Vitamin B Complex Vit C No.3 [B Complex with Vitamin C] 1 each PO DAILY Ranitidine [Zantac -] 150 mg PO DAILY tablet 02/09/16 Acetylcysteine Po/INH 20% [Mucomyst 20 Oral / INH Use Only*] 200 mg NEB QIDR vial 06/14/17 Budesonide [Pulmicort 0.25 mg Nebulizer -] 1 amp NEB BID amp 06/14/17 Cholestyramine/Aspartame [Questran Light Packet -] 4 gm PO BID packet 06/14/17 Acetaminophen [Tylenol .Regular Strength -] 650 mg PO Q4H PRN #0 tablet Albuterol 0.083% Nebulizer Carina [Ventolin 0.083% Nebulizer Soln -] 1 amp NEB Q4H PRN #180 amp 06/23/17 Apixaban [Eliquis -] 5 mg PO BID tablet 06/23/17 Budesonide [Pulmicort 0.25 mg Nebulizer -] 1 amp NEB BID amp 06/23/17 Cholestyramine/Aspartame [Questran Light Packet -] 4 gm PO BID packet 06/23/17 Diltiazem Cd [Cardizem Cd -] 300 mg PO DAILY #30 cap 06/23/17 Lorazepam [Ativan] 0.5 mg PO Q8H PRN #0 tablet MDD 3 06/23/17 Melatonin 5 mg PO HS tab 06/23/17 Oxycodone HCl [Roxicodone -] 5 mg PO Q4H PRN #0 tablet MDD 6 06/23/17 Prednisone [Deltasone -] 40 mg PO BID #90 tablet 06/23/17 Valsartan [Diovan] 320 mg PO DAILY tablet 06/23/17 Levofloxacin [Levaquin] 500 mg PO DAILY 07/19/17 Review of Systems - Review of Systems Constitutional: reports: Chills, Fever Neck: denies: Lumps, Other Cardiovascular: denies: Chest Pain, Edema, Palpitations Respiratory: reports: Cough, SOB Gastrointestinal: denies: Abdominal Pain, Diarrhea, Melena, Nausea, Vomiting Genitourinary: denies: Burning Hematology/Lymphatic: denies: Easily Bruised, Excessive Bleeding, Swollen Glands Physical Exam Vital Signs: Vital Signs Temperature 98.7 F 07/20/17 10:00 Pulse Rate 108 H 07/20/17 10:00 Respiratory Rate 18 07/20/17 12:12 Blood Pressure 117/75 07/20/17 10:00 O2 Sat by Pulse Oximetry (%) 98 07/20/17 08:38 Constitutional: Yes: Anxious, Thin Eyes: Yes: Conjunctiva Clear HENT: Yes: Atraumatic, Normocephalic Neck: Yes: Supple, Other (trach collar+) Cardiovascular: Yes: Tachycardia Respiratory: Yes: Regular, Diminished, Mechanically Ventilated (through trach collar), Rhonchi Gastrointestinal: Yes: Normal Bowel Sounds, Soft Extremities: Yes: WNL Edema: No Neurological: Yes: Alert, Oriented Labs: CBC, BMP 07/20/17 05:00 07/20/17 05:00 Imaging - Results Chest X-ray: Report Reviewed Problem List - Problems (1) Anemia Code(s): D64.9 - ANEMIA, UNSPECIFIED Qualifiers: Anemia type: unspecified type Qualified Code(s): D64.9 - Anemia, unspecified (2) Leukocytosis Code(s): D72.829 - ELEVATED WHITE BLOOD CELL COUNT, UNSPECIFIED Qualifiers: Leukocytosis type: unspecified Qualified Code(s): D72.829 - Elevated white blood cell count, unspecified (3) Severe sepsis Code(s): A41.9 - SEPSIS, UNSPECIFIED ORGANISM R65.20 - SEVERE SEPSIS WITHOUT SEPTIC SHOCK (4) Respiratory failure Code(s): J96.90 - RESPIRATORY FAILURE, UNSP, UNSP W HYPOXIA OR HYPERCAPNIA Qualifiers: Chronicity: acute on chronic Respiratory failure complication: hypercapnia Qualified Code(s): J96.22 - Acute and chronic respiratory failure with hypercapnia Assessment/Plan Severe sepsis (etiology Lung vs other) Acute anemia leuckocytosis Thrombocytosis Respiratory failure, vent dependant MARLYN Afib on eliquis -anemia likely an acute suppression of the marrow from severe sepsis, expected to recover. s/p 2U of PRBC. Had normal Hgb in the past. -Stool occult pending, ordered routine screening labs ( iron studies too, but cautious interpretation post transfusion) -abx per ID -leucocytosis, predominantly neutrophils, from sepsis -Thrombocytosis: reactive ,will continue to monitor -Cardiology f/u -MARLYN resolved. -will follow
[2017-07-20] MEDS: MEROPENEM 1 GM in DEXTROSE 5%-WATER - 100 ML IVPB SCH ×2 (15:43→17:14)
--- NOTE | 2017-07-20 17:18 | HP ---
Admitting History and Physical - Primary Care Physician PCP: Dino Lopez - Admission Chief Complaint: Sepsis History of Present Illness: Ms. Sarabia, a pleasant 67 year old female, vent dependent, came in through [facility] ER for worsening SOB, fever and tachycardia. Upon evaluation she was found to have leukocytosis, anemic, hypotensive in rapid afib. 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) Cardiovascular: Yes: AFIB, HTN Pulmonary: Yes: COPD, Previously Intubated, Other (RESPIRATORY FAILURE) Heme/Onc: Yes: Hypercoaguable State Infectious Disease: Yes: C-Diff Endocrine: Yes: Hypothyroidism - Past Surgical History Past Surgical History: Yes: Appendectomy - Smoking History Smoking history: Former smoker Have you smoked in the past 12 months: No If you are a former smoker, when did you quit?: 2008 - Alcohol/Substance Use Hx Alcohol Use: No History of Substance Use: reports: None - Social History ADL: Family Assistance History of Recent Travel: No Home Medications - Allergies Allergies/Adverse Reactions: Allergies Allergy/AdvReac Type Severity Reaction Status Date / Time peas Allergy Severe Difficulty Verified 07/19/17 12:10 Breathing Iodinated Contrast- Oral and Allergy Verified 07/19/17 12:10 IV Dye [Iodinated Contrast Media - IV Dye] iodine Allergy Verified 07/19/17 12:10 - Home Medications Home Medications: Ambulatory Orders Albuterol 2.5/Ipratropium 0.5 [Duoneb -] 1 neb NEB TID 02/01/16 Aspirin [Ecotrin] 81 mg PO DAILY 02/01/16 Folic Acid 1 mg PO DAILY 02/01/16 Lactobacillus Acidophilus [Bacid -] 1 each PO BID 02/01/16 Levothyroxine [Synthroid -] 50 mcg PO DAILY 02/01/16 Lorazepam 0.5 mg PO TID PRN 02/01/16 Melatonin 3 mg PO HS 02/01/16 Mirtazapine 15 mg PO HS 02/01/16 Peg 400/Hypromellose/Glycerin [Artificial Tears Drops] 1 drop OU DAILY 02/01/16 Thiamine HCl [Vitamin B1 -] 100 mg PO DAILY 02/01/16 Vitamin B Complex Vit C No.3 [B Complex with Vitamin C] 1 each PO DAILY Ranitidine [Zantac -] 150 mg PO DAILY tablet 02/09/16 Acetylcysteine Po/INH 20% [Mucomyst 20 Oral / INH Use Only*] 200 mg NEB QIDR vial 06/14/17 Budesonide [Pulmicort 0.25 mg Nebulizer -] 1 amp NEB BID amp 06/14/17 Cholestyramine/Aspartame [Questran Light Packet -] 4 gm PO BID packet 06/14/17 Acetaminophen [Tylenol .Regular Strength -] 650 mg PO Q4H PRN #0 tablet Albuterol 0.083% Nebulizer Carina [Ventolin 0.083% Nebulizer Soln -] 1 amp NEB Q4H PRN #180 amp 06/23/17 Apixaban [Eliquis -] 5 mg PO BID tablet 06/23/17 Budesonide [Pulmicort 0.25 mg Nebulizer -] 1 amp NEB BID amp 06/23/17 Cholestyramine/Aspartame [Questran Light Packet -] 4 gm PO BID packet 06/23/17 Diltiazem Cd [Cardizem Cd -] 300 mg PO DAILY #30 cap 06/23/17 Lorazepam [Ativan] 0.5 mg PO Q8H PRN #0 tablet MDD 3 06/23/17 Melatonin 5 mg PO HS tab 06/23/17 Oxycodone HCl [Roxicodone -] 5 mg PO Q4H PRN #0 tablet MDD 6 06/23/17 Prednisone [Deltasone -] 40 mg PO BID #90 tablet 06/23/17 Valsartan [Diovan] 320 mg PO DAILY tablet 06/23/17 Levofloxacin [Levaquin] 500 mg PO DAILY 07/19/17 Review of Systems - Review of Systems Constitutional: reports: Malaise, Weakness Eyes: reports: No Symptoms HENT: reports: No Symptoms Neck: reports: No Symptoms Cardiovascular: reports: Shortness of Breath Respiratory: reports: Cough, SOB Gastrointestinal: reports: No Symptoms Genitourinary: reports: No Symptoms Breasts: reports: No Symptoms Reported Musculoskeletal: reports: No Symptoms Integumentary: reports: No Symptoms Neurological: reports: No Symptoms Endocrine: reports: No Symptoms Hematology/Lymphatic: reports: No Symptoms Psychiatric: reports: No Symptoms Pain Intensity: 0 Physical Examination Vital Signs: Vital Signs Temperature 98.7 F 07/20/17 10:00 Pulse Rate 98 H 07/20/17 16:00 Respiratory Rate 19 07/20/17 16:10 Blood Pressure 114/55 07/20/17 16:00 O2 Sat by Pulse Oximetry (%) 98 07/20/17 08:38 Constitutional: Yes: Well Nourished, Anxious, Mild Distress Cardiovascular: Yes: Regular Rate and Rhythm, Murmur (grade III/) Respiratory: Yes: Accessory Muscle Use, Mechanically Ventilated, SOB, Tachypnea Gastrointestinal: Yes: Normal Bowel Sounds Edema: No Peripheral Pulses WNL: Yes Neurological: Yes: Alert, Oriented Psychiatric: Yes: Alert, Oriented Labs: CBC, BMP 07/20/17 05:00 07/20/17 05:00 Problem List - Problems (1) Anemia Code(s): D64.9 - ANEMIA, UNSPECIFIED Qualifiers: Anemia type: unspecified type Qualified Code(s): D64.9 - Anemia, unspecified (2) Fever Code(s): R50.9 - FEVER, UNSPECIFIED Qualifiers: Fever type: due to other condition Qualified Code(s): R50.81 - Fever presenting with conditions classified elsewhere (3) A-fib Code(s): I48.91 - UNSPECIFIED ATRIAL FIBRILLATION Qualifiers: Atrial fibrillation type: paroxysmal Qualified Code(s): I48.0 - Paroxysmal atrial fibrillation (4) Acute and chronic respiratory failure with hypoxia Code(s): J96.21 - ACUTE AND CHRONIC RESPIRATORY FAILURE WITH HYPOXIA (5) COPD exacerbation Code(s): J44.1 - CHRONIC OBSTRUCTIVE PULMONARY DISEASE W (ACUTE) EXACERBATION (6) Systemic inflammatory response syndrome (SIRS) Code(s): R65.10 - SIRS OF NON-INFECTIOUS ORIGIN W/O ACUTE ORGAN DYSFUNCTION Assessment/Plan -received 2 units of PRBC -H/H stable -on mechanical ventilation -Neb tx -Pulmicort tx -IV abx-responding well, WBC decreased -BC,SC, UC pending -Pulmonary,hematology, ID, cardiology and nephrology consult -PO steroids -Lorazepam for anxiety -Continue AC for afib -stool OB -labs in AM -was complaining of abdominal pain, U/S abd negative.
[2017-07-20] MEDS: LORazepam 0.5 MG TABLET PO SCH (17:36)
[2017-07-20 20:13] LABS: ANION GAP 8 (8-16); CALCIUM 7.8 mg/dL (8.5-10.1); CO2 28 mmol/L (21-32); CREATININE 0.6 mg/dL (0.55-1.02); GLUCOSE,RANDOM 200 mg/dL (74-106)
[2017-07-20] MEDS: MELATONIN 1 MG TABLET PO SCH (21:14)
[2017-07-20] MEDS: MIRTAZAPINE 15 MG TABLET (FP) PO SCH (21:14)
[2017-07-20] MEDS: APIXABAN 5 MG TABLET PO SCH (21:15)
[2017-07-21] MEDS: ALBUTEROL SO4 2.5/IPRATROPIUM 0.5 INH SOL 3 ML VIAL.NEB. NEB SCH ×6 (02:10→21:40)
[2017-07-21] MEDS: LORazepam 0.5 MG TABLET PO SCH ×3 (02:15→17:24)
[2017-07-21] MEDS: MEROPENEM 1 GM in DEXTROSE 5%-WATER - 100 ML IVPB SCH ×3 (02:15→17:23)
[2017-07-21] MEDS: LEVOTHYROXINE NA 50 MCG TABLET (FP) PO SCH (06:07)
[2017-07-21 06:08] LABS: MCH 29.4 pg (25.7-33.7); MCHC 33.5 g/dl (32.0-36.0); MEAN CELL VOLUME 87.7 fl (80-96); MEAN PLT VOLUME 8.9 fl (7.5-11.1); PLATELET COUNT 499 K/MM3 (134-434); RDW 15.4 % (11.6-15.6); WHITE BLOOD COUNT 13.6 K/mm3 (4.0-10.0)
[2017-07-21 06:38] LABS: CO2 29 mmol/L (21-32); GLUCOSE,RANDOM 153 mg/dL (74-106); MAGNESIUM 1.8 mg/dL (1.8-2.4)
[2017-07-21 06:39] LABS: ANION GAP 7 (8-16)
[2017-07-21 06:44] LABS: ALK PHOS 71 U/L (45-117); BILIRUBIN,TOTAL 0.3 mg/dL (0.2-1.0); CREATININE 0.5 mg/dL (0.55-1.02); LDH 170 U/L (84-246); PHOSPHOROUS 3.5 mg/dL (2.5-4.9); SGOT/AST 8 U/L (15-37); SGPT/ALT 9 U/L (12-78); TOT PROT 5.4 g/dl (6.4-8.2)
[2017-07-21 06:48] LABS: FERRITIN 1226.782 ng/ml (6.9-282.5)
--- NOTE | 2017-07-21 06:55 | PN ---
Progress Note, Physician Chief Complaint: ID ICU follow up for this 67 year old female vent dependent from the [facility] admitted with fever tachycardia and SOB with anemia Consideration of sepsis and antibiotics given Vancomcycin and Meropenem based on previous MDRO culture from past admissions. She had been recently in [facility] and has COPD and atrial fibrillation. Presently alert and communicative and offers nocomplaints chest pain or abd pains. - Current Medication List Current Medications: Active Medications Acetaminophen (Tylenol -) 650 mg PO Q4H PRN PRN Reason: FEVER OR PAIN Last Admin: 07/20/17 01:21 Dose: 650 mg Albuterol Sulfate (Ventolin 0.083% Nebulizer Soln -) 1 amp NEB Q4H PRN PRN Reason: SHORT OF BREATH/WHEEZING Albuterol/Ipratropium (Duoneb -) 1 amp NEB Q4H [facility] Last Admin: 07/21/17 06:19 Dose: 1 amp Apixaban (Eliquis -) 5 mg PO BID [facility] Last Admin: 07/20/17 21:15 Dose: 5 mg Artificial Tears (Artificial Tears) 1 drop OU DAILY [facility] Last Admin: 07/20/17 09:21 Dose: 1 drop Budesonide (Pulmicort 0.25 Mg Nebulizer -) 1 amp NEB BID [facility] Last Admin: 07/20/17 23:00 Dose: 1 amp Cholestyramine Resin (Questran Light Packet -) 4 gm PO BID [facility] Last Admin: 07/20/17 21:14 Dose: 4 gm Diltiazem HCl (Cardizem Cd -) 120 mg PO DAILY [facility] Last Admin: 07/20/17 12:34 Dose: 120 mg Folic Acid (Folic Acid -) 1 mg PO DAILY [facility] Last Admin: 07/20/17 09:22 Dose: 1 mg Sodium Chloride (Normal Saline -) 1,000 mls @ 100 mls/hr IV ASDIR [facility] Last Admin: 07/20/17 19:30 Dose: 100 mls/hr Vancomycin HCl 750 mg/ (Dextrose) 250 mls @ 250 mls/hr IVPB DAILY [facility] PRN Reason: Protocol Last Admin: 07/20/17 10:19 Dose: 250 mls/hr Pantoprazole Sodium 40 mg/ (Sodium Chloride) 100 mls @ 200 mls/hr IVPB DAILY [facility] Meropenem 1 gm/ Dextrose 100 mls @ 100 mls/hr IVPB Q8H-IV [facility] PRN Reason: Protocol Last Admin: 07/21/17 02:15 Dose: 100 mls/hr Lactobacillus Acidophilus (Bacid -) 1 tab PO BID [facility] Last Admin: 07/20/17 21:14 Dose: 1 tab Levothyroxine Sodium (Synthroid -) 50 mcg PO DAILY@0700 [facility] Last Admin: 07/21/17 06:07 Dose: 50 mcg Lorazepam (Ativan -) 0.5 mg PO Q8H [facility] Last Admin: 07/21/17 02:15 Dose: 0.5 mg Melatonin (Melatonin) 3 mg PO HS [facility] Last Admin: 07/20/17 21:14 Dose: 3 mg Mirtazapine (Remeron -) 15 mg PO HS [facility] Last Admin: 07/20/17 21:14 Dose: 15 mg Multivitamins (Total B With C -) 1 each PO DAILY [facility] Last Admin: 07/20/17 09:22 Dose: 1 each Oxycodone HCl (Roxicodone -) 5 mg PO Q4H PRN PRN Reason: PAIN Prednisone (Deltasone -) 40 mg PO BID [facility] Last Admin: 07/20/17 21:14 Dose: 40 mg Thiamine HCl (Vitamin B1 -) 100 mg PO DAILY [facility] Last Admin: 07/20/17 09:22 Dose: 100 mg - Objective Vital Signs: Vital Signs Temperature 98.5 F 07/21/17 06:00 Pulse Rate 91 H 07/21/17 06:00 Respiratory Rate 21 07/21/17 06:00 Blood Pressure 136/67 07/21/17 06:00 O2 Sat by Pulse Oximetry (%) 100 07/20/17 20:18 Constitutional: Yes: No Distress, Thin Eyes: Yes: WNL, Conjunctiva Clear HENT: Yes: WNL, Atraumatic Neck: Yes: WNL, Supple, Trachea Midline, Other (Tracehostomy) Cardiovascular: Yes: Tachycardia, Pulse Irregular, S1, S2. No: Murmur Respiratory: Yes: WNL, Regular, CTA Bilaterally. No: Rales, Rhonchi, Wheezes Gastrointestinal: Yes: WNL, Normal Bowel Sounds, Soft. No: Tenderness, Tenderness, Epigastrium, Tenderness, Rebound, Vomiting Extremities: No: Cold, Cool, Cyanosis Edema: No Labs: CBC, BMP 07/21/17 05:00 07/21/17 05:00 INR, PTT INR 1.72 (0.82-1.09) H D 07/19/17 11:34 Problem List - Problems (1) Fever Code(s): R50.9 - FEVER, UNSPECIFIED Qualifiers: Fever type: due to other condition Qualified Code(s): R50.81 - Fever presenting with conditions classified elsewhere (2) Acute and chronic respiratory failure with hypoxia Code(s): J96.21 - ACUTE AND CHRONIC RESPIRATORY FAILURE WITH HYPOXIA (3) Sepsis due to other specified Staphylococcus Code(s): A41.1 - SEPSIS DUE TO OTHER SPECIFIED STAPHYLOCOCCUS Assessment/Plan Microbiology 07/19/17 21:00 Sputum - Endotrachea Suction/Ventilator Gram Stain - Final 07/19/17 12:35 Blood - Peripheral Venous Blood Culture - Preliminary NO GROWTH OBTAINED AFTER 24 HOURS, INCUBATION TO CONTINUE FOR 4 DAYS. 07/19/17 11:50 Blood - Peripheral Venous Blood Culture - Preliminary NO GROWTH OBTAINED AFTER 24 HOURS, INCUBATION TO CONTINUE FOR 4 DAYS. Laboratory Tests 07/19/17 07/19/17 07/20/17 11:34 11:34 05:00 WBC 17.4 H 14.6 H Hgb Hct Plt Count INR 1.72 H D BUN Creatinine Ferritin Total Bilirubin AST ALT Alkaline Phosphatase LD Total Total Protein Albumin 07/21/17 07/21/17 05:00 05:00 WBC 13.6 H Hgb 10.4 L Hct 31.0 L Plt Count 499 H INR BUN 22 H Creatinine 0.5 L Ferritin 1226.782 H Total Bilirubin 0.3 D AST 8 L ALT 9 L Alkaline Phosphatase 71 LD Total 170 Total Protein 5.4 L Albumin 2.0 L Assessment Meets criteria for sepsis syndrome source thought to be pulmonary though still no evidence for pneumonia by xray. No evidence for intrabdominal infection abd benign to exam and sonogram is negative. Cultures are pending Thick yellow secretions noted History of MDRO on vancomcyin and Meropenem at least pending final c/s pending Respiratory failure COPD with vent dependency ( from a [facility]) Anemia post transfusion Elevated ferritin level ( heme following) Atrial fibrillation on anticoagulation Plan Cultures pending Await c/s before deescalation of antibiotics Contact isolation 2 units PRBC Nikky 40 minutes critical care time spent today Susan GAMBLE
[2017-07-21 07:23] LABS: C-REACTIVE PROTEIN 8.6 MG/DL (0.00-0.3)
--- NOTE | 2017-07-21 07:31 | PN ---
Physical Exam: SUBJECTIVE: Patient seen and examined by me this AM - No major overnight events. No significant complaints per pt. - WBC downtrending 14.6 -> 13.6, afebrile. BUN/Cr downtrending - Sputum cx + polymicrobial (group G strep, pseudomonas, diptheria). Current Abx coverage adequate. - BP stable, good MAPs overnight. Borderline tachy, improving. - CRP, ferritin elevated. ESR 105 - Endorse chills overnight. Denies CP, abdominal pain, cough, dysuria, congestion, N/V, diarrhea, SOB - Plan to transfer to med-surg given clinical improvement. Omar d/chuchoed OBJECTIVE: Vital Signs Intake & Output 07/18/17 07/19/17 07/20/17 07/21/17 23:59 23:59 23:59 23:59 Intake Total 550 3140 900 Output Total 300 1200 250 Balance 250 1940 650 Weight 38.7 kg 38.7 kg 40.37 kg Period Temp Pulse Resp BP Sys/Parra Pulse Ox Last 24 Hr 98 F-98.7 F 91-114 14-26 107-150/55-99 98-100 GENERAL: Frail, cachectic elderly woman, awake, alert and oriented, laying in bed w/ trach collar, vented. HEAD: Normal with no signs of trauma. Alopecia. EYES: PERRL, extraocular movements intact, sclera anicteric, conjunctiva clear. No ptosis. ENT: Ears normal, nares patent, oropharynx clear without exudates, moist mucous membranes NECK: Trachea midline w/ trach tube w/ no significant erythema, swelling. Packed w/ gauze. LUNGS: Mechanical breath sounds. Trace crackles. Decreased lung sounds at bases. HEART: Irregularly irregular, S1, S2 without murmur, rub or gallop. ABDOMEN: Soft, nondistended, non-tender. Normoactive bowel sounds, no masses, no organomegaly EXTREMITIES: 2+ pulses, warm, well-perfused, no edema. NEUROLOGICAL: Cranial nerves II through XII grossly intact. Can answer simple and complex questions. Able to partial vocalize w/ trach-collar. Gait not observed. PSYCH: Normal mood, normal affect. Pleasant, interactive. Laboratory Results - last 24 hr CBCD WBC 13.6 K/mm3 (4.0-10.0) H 07/21/17 05:00 RBC 3.53 M/mm3 (3.60-5.2) L 07/21/17 05:00 Hgb 10.4 GM/dL (10.7-15.3) L 07/21/17 05:00 Hct 31.0 % (32.4-45.2) L 07/21/17 05:00 MCV 87.7 fl (80-96) 07/21/17 05:00 MCHC 33.5 g/dl (32.0-36.0) 07/21/17 05:00 RDW 15.4 % (11.6-15.6) 07/21/17 05:00 Plt Count 499 K/MM3 (134-434) H 07/21/17 05:00 MPV 8.9 fl (7.5-11.1) 07/21/17 05:00 CMP Sodium 140 mmol/L (136-145) 07/21/17 05:00 Potassium 4.7 mmol/L (3.5-5.1) 07/21/17 05:00 Chloride 104 mmol/L (98-107) 07/21/17 05:00 Carbon Dioxide 29 mmol/L (21-32) 07/21/17 05:00 Anion Gap 7 (8-16) L 07/21/17 05:00 BUN 22 mg/dL (7-18) H 07/21/17 05:00 Creatinine 0.5 mg/dL (0.55-1.02) L 07/21/17 05:00 Creat Clearance w eGFR > 60 (>60) 07/21/17 05:00 Calcium 8.0 mg/dL (8.5-10.1) L 07/21/17 05:00 Total Bilirubin 0.3 mg/dL (0.2-1.0) D 07/21/17 05:00 AST 8 U/L (15-37) L 07/21/17 05:00 ALT 9 U/L (12-78) L 07/21/17 05:00 Alkaline Phosphatase 71 U/L (45-117) 07/21/17 05:00 Total Protein 5.4 g/dl (6.4-8.2) L 07/21/17 05:00 Albumin 2.0 g/dl (3.4-5.0) L 07/21/17 05:00 07/19/17 07/20/17 07/20/17 20:00 05:00 18:00 WBC 14.6 H RBC 3.63 D Hgb 10.9 D Hct 31.6 L D MCV 87.0 MCH 29.9 MCHC 34.4 RDW 15.2 Plt Count 487 H MPV 8.7 Total Counted 100 Neutrophils % (Manual) 93 H* Band Neuts % (Manual) 2 Lymphocytes % (Manual) 2 L Monocytes % (Manual) 3 L Retic Count Sodium 139 Potassium 4.7 D Chloride 103 Carbon Dioxide 28 Anion Gap 8 BUN 26 H Creatinine 0.6 Creat Clearance w eGFR Random Glucose 200 H D Calcium 7.8 L Phosphorus Magnesium Ferritin Total Bilirubin AST ALT Alkaline Phosphatase LD Total C-Reactive Protein Total Protein Albumin Vitamin B12 Serum Folate Urine Color Ltyellow Urine Appearance Slcloudy Urine pH 5.0 Ur Specific Stanton <= 1.005 Urine Protein Negative Urine Glucose (UA) Negative Urine Ketones Negative Urine Blood Negative Urine Nitrite Negative Urine Bilirubin Negative Urine Urobilinogen Negative 07/21/17 07/21/17 05:00 05:00 WBC 13.6 H RBC 3.53 L Hgb 10.4 L Hct 31.0 L MCV 87.7 MCH 29.4 MCHC 33.5 RDW 15.4 Plt Count 499 H MPV 8.9 Total Counted Neutrophils % (Manual) Band Neuts % (Manual) Lymphocytes % (Manual) Monocytes % (Manual) Retic Count 0.93 Sodium 140 Potassium 4.7 Chloride 104 Carbon Dioxide 29 Anion Gap 7 L BUN 22 H Creatinine 0.5 L Creat Clearance w eGFR > 60 Random Glucose 153 H D Calcium 8.0 L Phosphorus 3.5 Magnesium 1.8 Ferritin 1226.782 H Total Bilirubin 0.3 D AST 8 L ALT 9 L Alkaline Phosphatase 71 LD Total 170 C-Reactive Protein 8.6 H D Total Protein 5.4 L Albumin 2.0 L Vitamin B12 1734 H Serum Folate 25 H Urine Color Urine Appearance Urine pH Ur Specific Stanton Urine Protein Urine Glucose (UA) Urine Ketones Urine Blood Urine Nitrite Urine Bilirubin Urine Urobilinogen Active Medications Generic Name Dose Route Start Last Admin Trade Name Freq PRN Reason Stop Dose Admin Acetaminophen 650 mg 07/19/17 19:06 07/20/17 01:21 Tylenol - PO 650 mg Q4H PRN Administration FEVER OR PAIN Albuterol Sulfate 1 amp 07/19/17 19:06 Ventolin 0.083% Nebulizer Soln - NEB Q4H PRN SHORT OF BREATH/WHEEZING Albuterol/Ipratropium 1 amp 07/20/17 17:45 07/21/17 06:19 Duoneb - NEB 1 amp Q4H [facility] Administration Apixaban 5 mg 07/20/17 22:00 07/20/17 21:15 Eliquis - PO 5 mg BID [facility]IE Administration Artificial Tears 1 drop 07/20/17 10:00 07/20/17 09:21 Artificial Tears OU 1 drop DAILY [facility] Administration Budesonide 1 amp 07/19/17 22:00 07/20/17 23:00 Pulmicort 0.25 Mg Nebulizer - NEB 1 amp BID [facility]IE Administration Cholestyramine Resin 4 gm 07/19/17 22:00 07/20/17 21:14 Questran Light Packet - PO 4 gm BID [facility]IE Administration Diltiazem HCl 120 mg 07/20/17 11:45 07/20/17 12:34 Cardizem Cd - PO 120 mg DAILY [facility] Administration Folic Acid 1 mg 07/20/17 10:00 07/20/17 09:22 Folic Acid - PO 1 mg DAILY [facility] Administration Sodium Chloride 1,000 mls @ 100 mls/hr 07/19/17 19:30 07/20/17 19:30 Normal Saline - IV 100 mls/hr ASDIR [facility] Administration Vancomycin HCl 750 mg/ 250 mls @ 250 mls/hr 07/20/17 10:00 07/20/17 10:19 Dextrose IVPB 250 mls/hr DAILY [facility] Administration Protocol Pantoprazole Sodium 40 mg/ 100 mls @ 200 mls/hr 07/21/17 10:00 Sodium Chloride IVPB DAILY [facility] Meropenem 1 gm/ Dextrose 100 mls @ 100 mls/hr 07/20/17 15:00 07/21/17 02:15 IVPB 100 mls/hr Q8H-IV [facility] Administration Protocol Lactobacillus Acidophilus 1 tab 07/19/17 22:00 07/20/17 21:14 Bacid - PO 1 tab BID [facility] Administration Levothyroxine Sodium 50 mcg 07/20/17 07:00 07/21/17 06:07 Synthroid - PO 50 mcg DAILY@0700 [facility] Administration Lorazepam 0.5 mg 07/20/17 17:45 07/21/17 02:15 Ativan - PO 0.5 mg Q8H [facility] Administration Melatonin 3 mg 07/19/17 22:00 07/20/17 21:14 Melatonin PO 3 mg HS [facility] Administration Mirtazapine 15 mg 07/19/17 22:00 07/20/17 21:14 Remeron - PO 15 mg HS [facility] Administration Multivitamins 1 each 07/20/17 10:00 07/20/17 09:22 Total B With C - PO 1 each DAILY [facility] Administration Oxycodone HCl 5 mg 07/19/17 19:06 Roxicodone - PO Q4H PRN PAIN Prednisone 40 mg 07/19/17 22:00 07/20/17 21:14 Deltasone - PO 40 mg BID [facility] Administration Thiamine HCl 100 mg 07/20/17 10:00 07/20/17 09:22 Vitamin B1 - PO 100 mg DAILY [facility] Administration 07/20/17 07/20/17 07/21/17 05:00 18:00 05:00 WBC 14.6 H RBC 3.63 D Hgb 10.9 D Hct 31.6 L D MCV 87.0 MCHC 34.4 RDW 15.2 Plt Count 487 H Sodium 139 140 Potassium 4.7 D 4.7 Chloride 103 104 Carbon Dioxide 28 29 Anion Gap 8 7 L BUN 26 H 22 H Creatinine 0.6 0.5 L 07/21/17 05:00 WBC 13.6 H RBC 3.53 L Hgb 10.4 L Hct 31.0 L MCV 87.7 MCHC 33.5 RDW 15.4 Plt Count 499 H Sodium Potassium Chloride Carbon Dioxide Anion Gap BUN Creatinine Micro: 07/20/17 20:00 Urine Culture - Pending Urine - Urine - Catheterized 07/19/17 21:00 Gram Stain - Final Sputum - Endotrachea Suction/Ventilator Sputum Culture - Pending 07/19/17 11:50 Blood Culture - Preliminary Blood - Peripheral Venous NO GROWTH OBTAINED AFTER 24 HOURS, INCUBATION TO CONTINUE FOR 4 DAYS. 07/19/17 12:35 Blood Culture - Preliminary Blood - Peripheral Venous NO GROWTH OBTAINED AFTER 24 HOURS, INCUBATION TO CONTINUE FOR 4 DAYS. Imaging: CXR (07/21) - No significant interval change. LLL better visualized. Trace bibasilar opacities, likely atelectasis. No infiltrates or pneumo. EKG (07/19) - Low voltage. Sinus tach w/ frequent PVCs. Rate 110s. No QTC prolongation. CXR (07/19) - No infiltrates or pneumothorax. Increased interstitial markings consistent w/ possible chronic ILD. Trach tube noted. No cardiomegaly. No significant acute pathology. ASSESSMENT/PLAN: 67 yo woman w/ pmh of afib, COPD w/ vent dependence, gastroparesis and hypothyroidism, admitted w/ fever, SOB and tachycardia, suspicion of urosepsis vs. HCAP Vs. VAP given elevated WBC w/ left shift, tachycardia/hypotension. Pt continues to improve clinically on IVFs, abx and brochodilators/MATTI/ICS, with better rate control on lopressor/cardizem per cardiology. BP improved to 130s- 140s systolic, w/ downtrending WBC count (14.6 -> 13.6), remains afebrile. Continued abx coverage w/ vanc/meropenem per ID recs, IVFs and continuation of ICS/MATTI/brochodilator tx fo respiratory sxs's. BUN/cr downtrending given improving volume status. Anemia likely due ACD as opposed to occult bleed, Hgb stable after receiving 2units pRBCs. Transfer to med-surg for further management. #Neuro -Tylenol PRN for pain control - Oxycodone 5mg PO for pain - Ativan 0.5 mg for anxiety - Remeron 15mg PO hS for depression #Cardiac - Daily weights - Rate control. Rate better controlled on current regimen - cardizem 180 qd per cardiology recs - Diovan 80 qD given resolved hyperK - Questran 4 BID, lopressor 5mg q4 prn #Pulm - Vent-dependent. Vent settings 10/350/45/5. Titrate to >94% - ICS/MATTI/bronchodilators - Prednisone 40 qd. Consider taper #ID - Sputum cx + polymicrobial (group G strep, pseudomonas, diptheria). All other cultures negative. - Contact isolation - Continue abx, Vanc/Meropenem (day 2) - ID recs appreciated - Trend fever, WBC #Renal - Renal following, recs appreciated. - Nelson d/c'ed - ARB restarted given resolution of hyperK - Daily BMPs, trend BUN/Cr #Heme - f/u FOBT - Trend H/H. Transfuse at <7. Has received 2 units during admission. - f/u Anemia workup results - Continue home eliquis 5mg for ppx #Endo - Synthroid for hypothyroidism #GI - soft diet - ensure #FEN -Fluids: IVFs 100cc/hr NS -Electrolytes: Daily BMPs, Trend BUN/Cr, K -Nutrition: Soft diet/thin liquids - ensure #PPX -Eliquis for DVT ppx -PPI for GI ppx #Dispo - Dispo to med-surg for further management given clinical improvement Hamilton Miles, PGY1 Plan discussed with attending, Dr. Alexander Visit type - Emergency Visit Emergency Visit: No - New Patient This patient is new to me today: No - Critical Care Critical Care patient: Yes Total Critical Care Time (in minutes): 35 Critical Care Statement: The care of this patient involved high complexity decision making to prevent further life threatening deterioration of the patient 's condition and/or to evaluate & treat vital organ system(s) failure or risk of failure.
[2017-07-21 08:26] LABS: ERYTHROCYTE SEDIMENTATION RATE 105 mm/hr (0-30)
[2017-07-21] MEDS ORDERED: PT OWN MED DRAWER 7, Y5N ONE ×5 (09:01→21:21)
[2017-07-21] MEDS: BUDESONIDE 0.25 MG/2ML INH SUSP VIAL NEB SCH ×2 (09:30→21:50)
[2017-07-21] MEDS: VITAMIN B COMPLEX W/C COMBO TABLET (FP) PO SCH (09:36)
[2017-07-21] MEDS: CHOLESTYRAMINE/ASPARTAME 4 GM PACKET PO SCH ×2 (09:36→21:48)
[2017-07-21] MEDS: THIAMINE HCL 100 MG TABLET (FP) PO SCH (09:36)
[2017-07-21] MEDS: FOLIC ACID 1 MG TABLET (FP) PO SCH (09:37)
[2017-07-21] MEDS: predniSONE 20 MG TABLET (UD) PO SCH ×2 (09:37→21:46)
[2017-07-21] MEDS: APIXABAN 5 MG TABLET PO SCH ×2 (09:37→21:47)
[2017-07-21] MEDS: LACTOBACILLUS ACIDOPHILUS 1 EACH TAB (FP) PO SCH ×2 (09:37→21:46)
[2017-07-21] MEDS: ARTIFICIAL TEARS (POLYVINYL ALCOHOL 1.4%) OPTH DROPS OU SCH (09:38)
[2017-07-21] MEDS ORDERED: PANTOPRAZOLE SODIUM 40 MG in SODIUM CHLORIDE 100 ML IVPB SCH (10:00)
--- NOTE | 2017-07-21 10:23 | PN ---
Progress Note, Physician History of Present Illness: Leukocytosis and fevers improved, rate-control improved. - Current Medication List Current Medications: Active Medications Acetaminophen (Tylenol -) 650 mg PO Q4H PRN PRN Reason: FEVER OR PAIN Last Admin: 07/20/17 01:21 Dose: 650 mg Albuterol Sulfate (Ventolin 0.083% Nebulizer Soln -) 1 amp NEB Q4H PRN PRN Reason: SHORT OF BREATH/WHEEZING Albuterol/Ipratropium (Duoneb -) 1 amp NEB Q4H VALORIE Last Admin: 07/21/17 10:18 Dose: 1 amp Apixaban (Eliquis -) 5 mg PO BID [facility]IE Last Admin: 07/21/17 09:37 Dose: 5 mg Artificial Tears (Artificial Tears) 1 drop OU DAILY [facility] Last Admin: 07/21/17 09:38 Dose: 1 drop Budesonide (Pulmicort 0.25 Mg Nebulizer -) 1 amp NEB BID VALORIE Last Admin: 07/21/17 09:30 Dose: 1 amp Cholestyramine Resin (Questran Light Packet -) 4 gm PO BID VALORIE Last Admin: 07/21/17 09:36 Dose: 4 gm Diltiazem HCl (Cardizem Cd -) 120 mg PO DAILY [facility] Last Admin: 07/21/17 09:37 Dose: 120 mg Folic Acid (Folic Acid -) 1 mg PO DAILY [facility] Last Admin: 07/21/17 09:37 Dose: 1 mg Sodium Chloride (Normal Saline -) 1,000 mls @ 100 mls/hr IV ASDIR [facility] Last Admin: 07/20/17 19:30 Dose: 100 mls/hr Vancomycin HCl 750 mg/ (Dextrose) 250 mls @ 250 mls/hr IVPB DAILY VALORIE PRN Reason: Protocol Last Admin: 07/20/17 10:19 Dose: 250 mls/hr Pantoprazole Sodium 40 mg/ (Sodium Chloride) 100 mls @ 200 mls/hr IVPB DAILY [facility] Last Admin: 07/21/17 09:38 Dose: 200 mls/hr Meropenem 1 gm/ Dextrose 100 mls @ 100 mls/hr IVPB Q8H-IV VALORIE PRN Reason: Protocol Last Admin: 07/21/17 09:38 Dose: 100 mls/hr Lactobacillus Acidophilus (Bacid -) 1 tab PO BID [facility] Last Admin: 07/21/17 09:37 Dose: 1 tab Levothyroxine Sodium (Synthroid -) 50 mcg PO DAILY@0700 [facility] Last Admin: 07/21/17 06:07 Dose: 50 mcg Lorazepam (Ativan -) 0.5 mg PO Q8H [facility] Last Admin: 07/21/17 09:37 Dose: 0.5 mg Melatonin (Melatonin) 3 mg PO HS [facility] Last Admin: 07/20/17 21:14 Dose: 3 mg Mirtazapine (Remeron -) 15 mg PO HS [facility] Last Admin: 07/20/17 21:14 Dose: 15 mg Multivitamins (Total B With C -) 1 each PO DAILY [facility] Last Admin: 07/21/17 09:36 Dose: 1 each Oxycodone HCl (Roxicodone -) 5 mg PO Q4H PRN PRN Reason: PAIN Prednisone (Deltasone -) 40 mg PO BID [facility] Last Admin: 07/21/17 09:37 Dose: 40 mg Thiamine HCl (Vitamin B1 -) 100 mg PO DAILY [facility] Last Admin: 07/21/17 09:36 Dose: 100 mg - Objective Vital Signs: Vital Signs Temperature 98.3 F 07/21/17 08:09 Pulse Rate 98 H 07/21/17 09:30 Respiratory Rate 18 07/21/17 10:16 Blood Pressure 137/68 07/21/17 08:09 O2 Sat by Pulse Oximetry (%) 100 07/21/17 10:16 Constitutional: Yes: No Distress, Calm, Thin Neck: Yes: Supple Cardiovascular: Yes: Tachycardia Respiratory: Yes: Regular, Diminished, Mechanically Ventilated, Rhonchi Gastrointestinal: Yes: Normal Bowel Sounds, Soft Edema: No Labs: CBC, BMP 07/21/17 05:00 07/21/17 05:00 INR, PTT INR 1.72 (0.82-1.09) H D 07/19/17 11:34 - ....Imaging Chest X-ray: Report Reviewed (NAD) Ultrasound: Report Reviewed (Hepatomegaly, otherwise benign) Problem List - Problems (1) Fever Code(s): R50.9 - FEVER, UNSPECIFIED Qualifiers: Fever type: due to other condition Qualified Code(s): R50.81 - Fever presenting with conditions classified elsewhere (2) Sepsis due to other specified Staphylococcus Code(s): A41.1 - SEPSIS DUE TO OTHER SPECIFIED STAPHYLOCOCCUS (3) A-fib Code(s): I48.91 - UNSPECIFIED ATRIAL FIBRILLATION Qualifiers: Atrial fibrillation type: paroxysmal Qualified Code(s): I48.0 - Paroxysmal atrial fibrillation (4) COPD (chronic obstructive pulmonary disease) Code(s): J44.9 - CHRONIC OBSTRUCTIVE PULMONARY DISEASE, UNSPECIFIED Qualifiers : COPD type: unspecified COPD Qualified Code(s): J44.9 - Chronic obstructive pulmonary disease, unspecified (5) Chronic respiratory failure with hypoxia Code(s): J96.11 - CHRONIC RESPIRATORY FAILURE WITH HYPOXIA (6) Diastolic heart failure Code(s): I50.30 - UNSPECIFIED DIASTOLIC (CONGESTIVE) HEART FAILURE Qualifiers : Heart failure chronicity: chronic Qualified Code(s): I50.32 - Chronic diastolic (congestive) heart failure (7) Gastroparesis Code(s): K31.84 - GASTROPARESIS (8) Hypothyroid Code(s): E03.9 - HYPOTHYROIDISM, UNSPECIFIED Qualifiers: Hypothyroidism type: unspecified Qualified Code(s): E03.9 - Hypothyroidism, unspecified (9) Leukocytosis Code(s): D72.829 - ELEVATED WHITE BLOOD CELL COUNT, UNSPECIFIED Qualifiers: Leukocytosis type: unspecified Qualified Code(s): D72.829 - Elevated white blood cell count, unspecified (10) Sepsis Code(s): A41.9 - SEPSIS, UNSPECIFIED ORGANISM Qualifiers: Sepsis type: sepsis due to unspecified organism Qualified Code(s): A41.9 - Sepsis, unspecified organism (11) Sinus tachycardia Code(s): R00.0 - TACHYCARDIA, UNSPECIFIED (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 Sepsis syndrome, possible pulmonary source with h/o multidrug resistant organisms 2. COPD with Chronic Hypoxic Respiratory Failure post tracheostomy 3. Diastolic LV dysfunction with class I NYHA classification LV congestive heart failure, compensated/euvolemic 4. Paroxysmal Atrial Fibrillation/atrial tachycardia on NOAC, [id number] score of 4 5. HTN 6. Hypothyroidism 7. History of C. Difficile Colitis 8. Hyperkalemia resolved 9. Anemia post transfusion P: 1. Vancomycin and Meropenem based on previous cultures, f/u C&S, contact isolation 2. Inhaled bronchodilators, O2 to keep SpO2 >90%, prednisone with GI protection 3. Increase Cardizem CD 180 qd, resume Diovan 80 qd with resolution of hyperkalemia, Questran 4 bid, Lopressor 5 q4 prn 4. Continue Eliquis 5 bid for DVT and stroke thrombophylaxis given elevated risk score
[2017-07-21] MEDS ORDERED: VALSARTAN 80 MG TABLET (UD) PO SCH (10:30)
[2017-07-21] MEDS: VANCOMYCIN 750 MG in DEXTROSE 5%-WATER - 250 ML IVPB SCH (10:51)
--- NOTE | 2017-07-21 12:18 | PN ---
Teaching Attending Note Name of Resident: Hamilton Miles ATTENDING PHYSICIAN STATEMENT I saw and evaluated the patient. I reviewed the resident's note and discussed the case with the resident. I agree with the resident's findings and plan as documented. SUBJECTIVE: Pt seen and examined in the ICU. Remains vented, awake. Tachycardic, but heart rates better controlled. No further fevers and blood pressure improved after IVF. OBJECTIVE: Last Vital Signs Temp Pulse Resp BP Pulse Ox 98.6 F 108 H 15 136/71 100 07/21/17 10:00 07/21/17 10:34 07/21/17 11:30 07/21/17 10:34 07/21/17 10:16 Intake & Output 07/18/17 07/19/17 07/20/17 07/21/17 23:59 23:59 23:59 23:59 Intake Total 550 3140 900 Output Total 300 1200 250 Balance 250 1940 650 Weight 85 lb 5.102 oz 85 lb 5.102 oz 89 lb Gen: vented, awake, less tachypneic Heart: irregular, tachycardic Lung: less wheezes, rhonchi Abd: soft, nontender Ext: no edema CBC, BMP 07/21/17 05:00 07/21/17 05:00 Active Medications Acetaminophen (Tylenol -) 650 mg PO Q4H PRN PRN Reason: FEVER OR PAIN Last Admin: 07/20/17 01:21 Dose: 650 mg Albuterol Sulfate (Ventolin 0.083% Nebulizer Soln -) 1 amp NEB Q4H PRN PRN Reason: SHORT OF BREATH/WHEEZING Albuterol/Ipratropium (Duoneb -) 1 amp NEB Q4H [facility] Last Admin: 07/21/17 10:18 Dose: 1 amp Apixaban (Eliquis -) 5 mg PO BID [facility] Last Admin: 07/21/17 09:37 Dose: 5 mg Artificial Tears (Artificial Tears) 1 drop OU DAILY [facility]CLUD[facility] Last Admin: 07/21/17 09:38 Dose: 1 drop Budesonide (Pulmicort 0.25 Mg Nebulizer -) 1 amp NEB BID [facility] Last Admin: 07/21/17 09:30 Dose: 1 amp Cholestyramine Resin (Questran Light Packet -) 4 gm PO BID [facility] Last Admin: 07/21/17 09:36 Dose: 4 gm Diltiazem HCl (Cardizem Cd -) 180 mg PO DAILY [facility] Folic Acid (Folic Acid -) 1 mg PO DAILY [facility] Last Admin: 07/21/17 09:37 Dose: 1 mg Sodium Chloride (Normal Saline -) 1,000 mls @ 100 mls/hr IV ASDIR [facility] Last Admin: 07/20/17 19:30 Dose: 100 mls/hr Vancomycin HCl 750 mg/ (Dextrose) 250 mls @ 250 mls/hr IVPB DAILY [facility] PRN Reason: Protocol Last Admin: 07/21/17 10:51 Dose: 250 mls/hr Pantoprazole Sodium 40 mg/ (Sodium Chloride) 100 mls @ 200 mls/hr IVPB DAILY [facility] Last Admin: 07/21/17 09:38 Dose: 200 mls/hr Meropenem 1 gm/ Dextrose 100 mls @ 100 mls/hr IVPB Q8H-IV [facility] PRN Reason: Protocol Last Admin: 07/21/17 09:38 Dose: 100 mls/hr Lactobacillus Acidophilus (Bacid -) 1 tab PO BID [facility] Last Admin: 07/21/17 09:37 Dose: 1 tab Levothyroxine Sodium (Synthroid -) 50 mcg PO DAILY@0700 [facility] Last Admin: 07/21/17 06:07 Dose: 50 mcg Lorazepam (Ativan -) 0.5 mg PO Q8H [facility] Last Admin: 07/21/17 09:37 Dose: 0.5 mg Melatonin (Melatonin) 3 mg PO HS [facility] Last Admin: 07/20/17 21:14 Dose: 3 mg Mirtazapine (Remeron -) 15 mg PO HS [facility] Last Admin: 07/20/17 21:14 Dose: 15 mg Multivitamins (Total B With C -) 1 each PO DAILY [facility] Last Admin: 07/21/17 09:36 Dose: 1 each Oxycodone HCl (Roxicodone -) 5 mg PO Q4H PRN PRN Reason: PAIN Prednisone (Deltasone -) 40 mg PO BID [facility] Last Admin: 07/21/17 09:37 Dose: 40 mg Thiamine HCl (Vitamin B1 -) 100 mg PO DAILY [facility] Last Admin: 07/21/17 09:36 Dose: 100 mg Valsartan (Diovan -) 80 mg PO DAILY [facility] Last Admin: 07/21/17 10:51 Dose: 80 mg ASSESSMENT AND PLAN: r/o Pneumonia Severe Sepsis improving Acute Kidney Injury improving Acute on Chronic Hypoxic Vent Dependent Respiratory Failure Severe COPD LV Diastolic Dysfunction Paroxysmal Atrial Fibrilation HTN Hypothyroidism - continue antibiotics per ID - f/u cultures - IVF - monitor urine output, creatinine - taper prednisone - inhaled bronchodilators - O2 to keep SpO2 >90% - rate control - continue anticoagulation - PO as tolerated - DVT/GI prophylaxis - can monitor on vent floor critical care time spent in reviewing chart, evaluating patient and formulating plan 35 min
--- NOTE | 2017-07-21 12:32 | PN ---
Progress Note, Physician Chief Complaint: patient is more awake alert in ICU and less pale no fever wbc count trending down HR better controlled - Current Medication List Current Medications: Active Medications Acetaminophen (Tylenol -) 650 mg PO Q4H PRN PRN Reason: FEVER OR PAIN Last Admin: 07/20/17 01:21 Dose: 650 mg Albuterol Sulfate (Ventolin 0.083% Nebulizer Soln -) 1 amp NEB Q4H PRN PRN Reason: SHORT OF BREATH/WHEEZING Albuterol/Ipratropium (Duoneb -) 1 amp NEB Q4H [facility] Last Admin: 07/21/17 10:18 Dose: 1 amp Apixaban (Eliquis -) 5 mg PO BID [facility] Last Admin: 07/21/17 09:37 Dose: 5 mg Artificial Tears (Artificial Tears) 1 drop OU DAILY [facility] Last Admin: 07/21/17 09:38 Dose: 1 drop Budesonide (Pulmicort 0.25 Mg Nebulizer -) 1 amp NEB BID [facility] Last Admin: 07/21/17 09:30 Dose: 1 amp Cholestyramine Resin (Questran Light Packet -) 4 gm PO BID [facility] Last Admin: 07/21/17 09:36 Dose: 4 gm Diltiazem HCl (Cardizem Cd -) 180 mg PO DAILY [facility] Folic Acid (Folic Acid -) 1 mg PO DAILY [facility] Last Admin: 07/21/17 09:37 Dose: 1 mg Sodium Chloride (Normal Saline -) 1,000 mls @ 100 mls/hr IV ASDIR [facility] Last Admin: 07/20/17 19:30 Dose: 100 mls/hr Vancomycin HCl 750 mg/ (Dextrose) 250 mls @ 250 mls/hr IVPB DAILY [facility] PRN Reason: Protocol Last Admin: 07/21/17 10:51 Dose: 250 mls/hr Pantoprazole Sodium 40 mg/ (Sodium Chloride) 100 mls @ 200 mls/hr IVPB DAILY [facility] Last Admin: 07/21/17 09:38 Dose: 200 mls/hr Meropenem 1 gm/ Dextrose 100 mls @ 100 mls/hr IVPB Q8H-IV [facility] PRN Reason: Protocol Last Admin: 07/21/17 09:38 Dose: 100 mls/hr Lactobacillus Acidophilus (Bacid -) 1 tab PO BID [facility] Last Admin: 07/21/17 09:37 Dose: 1 tab Levothyroxine Sodium (Synthroid -) 50 mcg PO DAILY@0700 [facility] Last Admin: 07/21/17 06:07 Dose: 50 mcg Lorazepam (Ativan -) 0.5 mg PO Q8H [facility] Last Admin: 07/21/17 09:37 Dose: 0.5 mg Melatonin (Melatonin) 3 mg PO HS [facility] Last Admin: 07/20/17 21:14 Dose: 3 mg Mirtazapine (Remeron -) 15 mg PO HS [facility] Last Admin: 07/20/17 21:14 Dose: 15 mg Multivitamins (Total B With C -) 1 each PO DAILY [facility] Last Admin: 07/21/17 09:36 Dose: 1 each Oxycodone HCl (Roxicodone -) 5 mg PO Q4H PRN PRN Reason: PAIN Prednisone (Deltasone -) 40 mg PO BID [facility] Last Admin: 07/21/17 09:37 Dose: 40 mg Thiamine HCl (Vitamin B1 -) 100 mg PO DAILY [facility] Last Admin: 07/21/17 09:36 Dose: 100 mg Valsartan (Diovan -) 80 mg PO DAILY [facility] Last Admin: 07/21/17 10:51 Dose: 80 mg - Objective Vital Signs: Vital Signs Temperature 98.6 F 07/21/17 10:00 Pulse Rate 108 H 07/21/17 10:34 Respiratory Rate 15 07/21/17 11:30 Blood Pressure 136/71 07/21/17 10:34 O2 Sat by Pulse Oximetry (%) 100 07/21/17 10:16 Constitutional: Yes: Calm, Thin Neck: Yes: Trachea Midline, Other (trach) Cardiovascular: Yes: Pulse Irregular, S1, S2 Respiratory: Yes: Mechanically Ventilated Gastrointestinal: Yes: Normal Bowel Sounds, Soft Edema: No Neurological: Yes: Alert, Oriented (can mouth words to express her needs) Labs: CBC, BMP 07/21/17 05:00 07/21/17 05:00 INR, PTT INR 1.72 (0.82-1.09) H D 07/19/17 11:34 Problem List - Problems (1) Sepsis Assessment/Plan: iv abx per ID possible pulm source given trach secertion contact isolation wbc high but trending down Code(s): A41.9 - SEPSIS, UNSPECIFIED ORGANISM Qualifiers: Sepsis type: sepsis due to unspecified organism Qualified Code(s): A41.9 - Sepsis, unspecified organism (2) A-fib Assessment/Plan: cardizem and eliquis Code(s): I48.91 - UNSPECIFIED ATRIAL FIBRILLATION Qualifiers: Atrial fibrillation type: paroxysmal Qualified Code(s): I48.0 - Paroxysmal atrial fibrillation (3) Hypothyroid Assessment/Plan: check tsh synthroid Code(s): E03.9 - HYPOTHYROIDISM, UNSPECIFIED Qualifiers: Hypothyroidism type: unspecified Qualified Code(s): E03.9 - Hypothyroidism, unspecified (4) Acute and chronic respiratory failure with hypoxia Assessment/Plan: on vent bronchodilators Code(s): J96.21 - ACUTE AND CHRONIC RESPIRATORY FAILURE WITH HYPOXIA (5) Anemia Assessment/Plan: heme on board check stool iron agnes got 2 units prbc Code(s): D64.9 - ANEMIA, UNSPECIFIED Qualifiers: Anemia type: unspecified type Qualified Code(s): D64.9 - Anemia, unspecified (6) Diastolic heart failure Assessment/Plan: monitor K on diovan lopresor and questran Code(s): I50.30 - UNSPECIFIED DIASTOLIC (CONGESTIVE) HEART FAILURE Qualifiers : Heart failure chronicity: chronic Qualified Code(s): I50.32 - Chronic diastolic (congestive) heart failure
--- NOTE | 2017-07-21 13:21 | EKG ---
Test Reason : Blood Pressure : / mmHG Vent. Rate : 162 BPM Atrial Rate : 141 BPM P-R Int : 000 ms QRS Dur : 068 ms QT Int : 284 ms P-R-T Axes : 000 055 071 degrees QTc Int : 466 ms POOR DATA QUALITY, INTERPRETATION MAY BE ADVERSELY AFFECTED UNDETERMINED RHYTHM LOW VOLTAGE QRS NONSPECIFIC ST AND T WAVE ABNORMALITY ABNORMAL ECG WHEN COMPARED WITH ECG OF 08-JUN-2017 13:32, CURRENT UNDETERMINED RHYTHM PRECLUDES RHYTHM COMPARISON, NEEDS REVIEW QRS VOLTAGE HAS DECREASED ST NOW DEPRESSED IN ANTERIOR LEADS Confirmed by TAINA MACIAS MD ([id number]) on 07/21/2017 1:20:53 PM Referred By: Confirmed By:TAINA MACIAS MD
--- NOTE | 2017-07-21 15:24 | CON.NEP ---
Consult Consult Specialty:: Nephrology Referred by:: Dr. White Reason for Consultation:: MARLYN/Hyperkalemia - History of Present Illness Chief Complaint: Fever and SOB History of Present Illness: This is a 67 year old woman with PMhx of COPD with respiratory failure now chroniclly on the vent, Anemia, Afib, COPD, Gastroparesis, Hypothrydism who presented with Fever and SOB and found to have Sepsis syndrome and suspected PNA with MARLYN and Hyperkalemia. Pt awake and alert. Denies any CKD. s/p IVF and kayexalate. No Hx of kidney stones. No N/V/D. No dysuria. Making urine. No flank pain. - History Source History Provided By: Patient Limitations to Obtaining History: No Limitations - Past Medical History [employer]: Yes: CVA, Other (poor short term memory) Cardio/Vascular: Yes: AFIB, HTN Pulmonary: Yes: COPD, Previously Intubated, Other (RESPIRATORY FAILURE) Infectious Disease: Yes: C-Diff Endocrine: Yes: Hypothyroidism - Past Surgical History Past Surgical History: Yes: Appendectomy - Alcohol/Substance Use Hx Alcohol Use: No History of Substance Use: reports: None - Smoking History Smoking history: Former smoker Have you smoked in the past 12 months: No If you are a former smoker, when did you quit?: 2008 - Social History Usual Living Arrangement: Fpc ADL: Family Assistance History of Recent Travel: No Home Medications - Allergies Allergies/Adverse Reactions: Allergies Allergy/AdvReac Type Severity Reaction Status Date / Time peas Allergy Severe Difficulty Verified 07/19/17 12:10 Breathing Iodinated Contrast- Oral and Allergy Verified 07/19/17 12:10 IV Dye [Iodinated Contrast Media - IV Dye] iodine Allergy Verified 07/19/17 12:10 - Home Medications Home Medications: Ambulatory Orders Albuterol 2.5/Ipratropium 0.5 [Duoneb -] 1 neb NEB TID 02/01/16 Aspirin [Ecotrin] 81 mg PO DAILY 02/01/16 Folic Acid 1 mg PO DAILY 02/01/16 Lactobacillus Acidophilus [Bacid -] 1 each PO BID 02/01/16 Levothyroxine [Synthroid -] 50 mcg PO DAILY 02/01/16 Lorazepam 0.5 mg PO TID PRN 02/01/16 Melatonin 3 mg PO HS 03/27/16 Mirtazapine 15 mg PO HS 02/01/16 Peg 400/Hypromellose/Glycerin [Artificial Tears Drops] 1 drop OU DAILY 02/01/16 Thiamine HCl [Vitamin B1 -] 100 mg PO DAILY 02/01/16 Vitamin B Complex Vit C No.3 [B Complex with Vitamin C] 1 each PO DAILY Ranitidine [Zantac -] 150 mg PO DAILY tablet 02/09/16 Acetylcysteine Po/INH 20% [Mucomyst 20 Oral / INH Use Only*] 200 mg NEB QIDR vial 06/14/17 Budesonide [Pulmicort 0.25 mg Nebulizer -] 1 amp NEB BID amp 06/14/17 Cholestyramine/Aspartame [Questran Light Packet -] 4 gm PO BID packet 06/14/17 Acetaminophen [Tylenol .Regular Strength -] 650 mg PO Q4H PRN #0 tablet Albuterol 0.083% Nebulizer Carina [Ventolin 0.083% Nebulizer Soln -] 1 amp NEB Q4H PRN #180 amp 06/23/17 Apixaban [Eliquis -] 5 mg PO BID tablet 06/23/17 Budesonide [Pulmicort 0.25 mg Nebulizer -] 1 amp NEB BID amp 06/23/17 Cholestyramine/Aspartame [Questran Light Packet -] 4 gm PO BID packet 06/23/17 Diltiazem Cd [Cardizem Cd -] 300 mg PO DAILY #30 cap 06/23/17 Lorazepam [Ativan] 0.5 mg PO Q8H PRN #0 tablet MDD 3 06/23/17 Melatonin 5 mg PO HS tab 06/23/17 Oxycodone HCl [Roxicodone -] 5 mg PO Q4H PRN #0 tablet MDD 6 06/23/17 Prednisone [Deltasone -] 40 mg PO BID #90 tablet 06/23/17 Valsartan [Diovan] 320 mg PO DAILY tablet 06/23/17 Levofloxacin [Levaquin] 500 mg PO DAILY 07/19/17 Family Disease History - Family Disease History Family History: Unremarkable Review of Systems - Review of Systems Constitutional: reports: Fever Eyes: reports: No Symptoms Cardiovascular: reports: No Symptoms Respiratory: reports: SOB Gastrointestinal: reports: No Symptoms Genitourinary: reports: No Symptoms Musculoskeletal: reports: No Symptoms Integumentary: reports: No Symptoms Neurological: reports: No Symptoms Nephrology Consult - Height Height: 5 ft - Weight Weight: 89 lb - BMI Body Mass Index (BMI): 17.4 - Lab Results CBC,BMP: CBC, BMP 07/21/17 05:00 07/21/17 05:00 Anion Gap: Anion Gap Anion Gap 7 (8-16) L 07/21/17 05:00 - Imaging Chest X-ray: Report Reviewed - Physical Examination Vital Signs: Vital Signs Temperature 98.8 F 07/21/17 14:00 Pulse Rate 94 H 07/21/17 14:00 Respiratory Rate 17 07/21/17 14:00 Blood Pressure 132/65 07/21/17 14:00 O2 Sat by Pulse Oximetry (%) 100 07/21/17 10:16 Constitutional: Yes: No Distress, Calm Eyes: Yes: Conjunctiva Clear HENT: Yes: Atraumatic Neck: Yes: Supple Cardiovascular: Yes: Regular Rate and Rhythm. No: Murmur Respiratory: Yes: Regular, CTA Bilaterally. No: Rales, Rhonchi, Wheezes Gastrointestinal: Yes: Normal Bowel Sounds, Soft Extremities: No: Cold, Cool, Cyanosis Edema: No Problem List - Problems (1) Fever Code(s): R50.9 - FEVER, UNSPECIFIED Qualifiers: Fever type: due to other condition Qualified Code(s): R50.81 - Fever presenting with conditions classified elsewhere (2) A-fib Code(s): I48.91 - UNSPECIFIED ATRIAL FIBRILLATION Qualifiers: Atrial fibrillation type: paroxysmal Qualified Code(s): I48.0 - Paroxysmal atrial fibrillation (3) Acute and chronic respiratory failure with hypoxia Code(s): J96.21 - ACUTE AND CHRONIC RESPIRATORY FAILURE WITH HYPOXIA (4) Dehydration Code(s): E86.0 - DEHYDRATION (5) Hyperkalemia Code(s): E87.5 - HYPERKALEMIA (6) Acute renal failure Code(s): N17.9 - ACUTE KIDNEY FAILURE, UNSPECIFIED Assessment/Plan 67 year old woman with PMhx of COPD with respiratory failure now chroniclly on the vent, Anemia, Afib, COPD, Gastroparesis, Hypothrydism who presented with Fever and SOB and found to have Sepsis syndrome and suspected PNA with MARLYN and Hyperkalemia. #Acute Renal Failure with hyperkalemia secondary to renal hypoprofusion in setting of Sepsis/ARB Renal function now improved and pt is non-oliguric by history K has also improved Would continue IVF hydration keep MAP > 65 ARb restarted at lower dose, will trend K avoid nephrotoxins (NSAIDs, Fleet enemas) Trend BUN/Cr and urine output #Sepsis/Resp Failure/PNA continue Abx as per ID vent support Pulmonary and Id follow up #Anemia s/p PRBC transfusion iron studies pending Thank you Will continue to follow Fernando Douglas DO Current Medications Acetaminophen (Tylenol -) 650 mg PO Q4H PRN PRN Reason: FEVER OR PAIN Last Admin: 07/20/17 01:21 Dose: 650 mg Albuterol Sulfate (Ventolin 0.083% Nebulizer Soln -) 1 amp NEB Q4H PRN PRN Reason: SHORT OF BREATH/WHEEZING Albuterol/Ipratropium (Duoneb -) 1 amp NEB Q4H [facility] Last Admin: 07/21/17 13:16 Dose: 1 amp Apixaban (Eliquis -) 5 mg PO BID [facility] Last Admin: 07/21/17 09:37 Dose: 5 mg Artificial Tears (Artificial Tears) 1 drop OU DAILY [facility] Last Admin: 07/21/17 09:38 Dose: 1 drop Budesonide (Pulmicort 0.25 Mg Nebulizer -) 1 amp NEB BID [facility] Last Admin: 07/21/17 09:30 Dose: 1 amp Cholestyramine Resin (Questran Light Packet -) 4 gm PO BID [facility] Last Admin: 07/21/17 09:36 Dose: 4 gm Diltiazem HCl (Cardizem Cd -) 180 mg PO DAILY [facility] Folic Acid (Folic Acid -) 1 mg PO DAILY [facility] Last Admin: 07/21/17 09:37 Dose: 1 mg Sodium Chloride (Normal Saline -) 1,000 mls @ 100 mls/hr IV ASDIR [facility] Last Admin: 07/20/17 19:30 Dose: 100 mls/hr Vancomycin HCl 750 mg/ (Dextrose) 250 mls @ 250 mls/hr IVPB DAILY [facility] PRN Reason: Protocol Last Admin: 07/21/17 10:51 Dose: 250 mls/hr Pantoprazole Sodium 40 mg/ (Sodium Chloride) 100 mls @ 200 mls/hr IVPB DAILY [facility] Last Admin: 07/21/17 09:38 Dose: 200 mls/hr Meropenem 1 gm/ Dextrose 100 mls @ 100 mls/hr IVPB Q8H-IV [facility] PRN Reason: Protocol Last Admin: 07/21/17 09:38 Dose: 100 mls/hr Lactobacillus Acidophilus (Bacid -) 1 tab PO BID [facility] Last Admin: 07/21/17 09:37 Dose: 1 tab Levothyroxine Sodium (Synthroid -) 50 mcg PO DAILY@0700 [facility] Last Admin: 07/21/17 06:07 Dose: 50 mcg Lorazepam (Ativan -) 0.5 mg PO Q8H [facility] Last Admin: 07/21/17 09:37 Dose: 0.5 mg Melatonin (Melatonin) 3 mg PO HS [facility] Last Admin: 07/20/17 21:14 Dose: 3 mg Mirtazapine (Remeron -) 15 mg PO HS [facility] Last Admin: 07/20/17 21:14 Dose: 15 mg Multivitamins (Total B With C -) 1 each PO DAILY [facility] Last Admin: 07/21/17 09:36 Dose: 1 each Oxycodone HCl (Roxicodone -) 5 mg PO Q4H PRN PRN Reason: PAIN Prednisone (Deltasone -) 40 mg PO BID [facility] Last Admin: 07/21/17 09:37 Dose: 40 mg Thiamine HCl (Vitamin B1 -) 100 mg PO DAILY [facility] Last Admin: 07/21/17 09:36 Dose: 100 mg Valsartan (Diovan -) 80 mg PO DAILY [facility] Last Admin: 07/21/17 10:51 Dose: 80 mg
[2017-07-21 15:25] VITALS: BMI 17.4
--- NOTE | 2017-07-21 16:10 | PN ---
Progress Note (short form) - Note Progress Note: PAtient seen and examined Feels better, improving Last Vital Signs Temp Pulse Resp BP Pulse Ox 98.4 F 96 H 20 131/59 100 07/21/17 16:08 07/21/17 16:08 07/21/17 16:08 07/21/17 16:08 07/21/17 10:16 Cor: RSR, No murmurs, No gallops Lungs: Clear to P&A Abd: Soft, Normal bowel sounds, No organomegaly Ext:No significant edema Abnormal Lab Results 07/20/17 07/21/17 07/21/17 18:00 05:00 05:00 WBC 13.6 H RBC 3.53 L Hgb 10.4 L Hct 31.0 L Plt Count 499 H ESR 105 H Anion Gap 7 L BUN 26 H 22 H Creatinine 0.5 L Random Glucose 200 H D 153 H D Calcium 7.8 L 8.0 L Ferritin 1226.782 H AST 8 L ALT 9 L C-Reactive Protein 8.6 H D Total Protein 5.4 L Albumin 2.0 L Vitamin B12 1734 H Serum Folate 25 H Active Medications Generic Name Dose Route Start Last Admin Trade Name Freq PRN Reason Stop Dose Admin Acetaminophen 650 mg 07/19/17 19:06 07/20/17 01:21 Tylenol - PO 650 mg Q4H PRN Administration FEVER OR PAIN Albuterol Sulfate 1 amp 07/19/17 19:06 Ventolin 0.083% Nebulizer Soln - NEB Q4H PRN SHORT OF BREATH/WHEEZING Albuterol/Ipratropium 1 amp 07/20/17 17:45 07/21/17 13:16 Duoneb - NEB 1 amp Q4H [facility] Administration Apixaban 5 mg 07/20/17 22:00 07/21/17 09:37 Eliquis - PO 5 mg BID [facility] Administration Artificial Tears 1 drop 07/20/17 10:00 07/21/17 09:38 Artificial Tears OU 1 drop DAILY [facility] Administration Budesonide 1 amp 07/19/17 22:00 07/21/17 09:30 Pulmicort 0.25 Mg Nebulizer - NEB 1 amp BID [facility] Administration Cholestyramine Resin 4 gm 07/19/17 22:00 07/21/17 09:36 Questran Light Packet - PO 4 gm BID [facility] Administration Diltiazem HCl 180 mg 07/21/17 10:30 Cardizem Cd - PO DAILY [facility] Folic Acid 1 mg 07/20/17 10:00 07/21/17 09:37 Folic Acid - PO 1 mg DAILY [facility] Administration Sodium Chloride 1,000 mls @ 100 mls/hr 07/19/17 19:30 07/20/17 19:30 Normal Saline - IV 100 mls/hr ASDIR [facility] Administration Vancomycin HCl 750 mg/ 250 mls @ 250 mls/hr 07/20/17 10:00 07/21/17 10:51 Dextrose IVPB 250 mls/hr DAILY [facility] Administration Protocol Pantoprazole Sodium 40 mg/ 100 mls @ 200 mls/hr 07/21/17 10:00 07/21/17 09:38 Sodium Chloride IVPB 200 mls/hr DAILY [facility] Administration Meropenem 1 gm/ Dextrose 100 mls @ 100 mls/hr 07/20/17 15:00 07/21/17 09:38 IVPB 100 mls/hr Q8H-IV [facility] Administration Protocol Lactobacillus Acidophilus 1 tab 07/19/17 22:00 07/21/17 09:37 Bacid - PO 1 tab BID [facility] Administration Levothyroxine Sodium 50 mcg 07/20/17 07:00 07/21/17 06:07 Synthroid - PO 50 mcg DAILY@0700 [facility] Administration Lorazepam 0.5 mg 07/20/17 17:45 07/21/17 09:37 Ativan - PO 0.5 mg Q8H [facility] Administration Melatonin 3 mg 07/19/17 22:00 07/20/17 21:14 Melatonin PO 3 mg HS [facility] Administration Mirtazapine 15 mg 07/19/17 22:00 07/20/17 21:14 Remeron - PO 15 mg HS [facility] Administration Multivitamins 1 each 07/20/17 10:00 07/21/17 09:36 Total B With C - PO 1 each DAILY [facility] Administration Oxycodone HCl 5 mg 07/19/17 19:06 Roxicodone - PO Q4H PRN PAIN Prednisone 40 mg 07/19/17 22:00 07/21/17 09:37 Deltasone - PO 40 mg BID [facility] Administration Thiamine HCl 100 mg 07/20/17 10:00 07/21/17 09:36 Vitamin B1 - PO 100 mg DAILY [facility] Administration Valsartan 80 mg 07/21/17 10:30 07/21/17 10:51 Diovan - PO 80 mg DAILY [facility] Administration A/P 67 y/o patient with Severe sepsis Acute anemia leuckocytosis Thrombocytosis Respiratory failure, vent dependant MARLYN Afib on eliquis -anemia likely an acute suppression of the marrow from severe sepsis, expected to recover. s/p 2U of PRBC. Had normal Hgb in the past. -Stool occult pending, ordered routine screening labs . high ferritin acute phase reactant -leucocytosis, predominantly neutrophils, from sepsis -Thrombocytosis: reactive ,will continue to monitor -MARLYN resolved.
[2017-07-21] MEDS: SODIUM CHLORIDE 1,000 ML IV SCH (19:30)
[2017-07-21] MEDS: MELATONIN 1 MG TABLET PO SCH (21:48)
[2017-07-21] MEDS: MIRTAZAPINE 15 MG TABLET (FP) PO SCH (21:48)
[2017-07-21] MEDS ORDERED: oxyCODONE HCL 5 MG TABLET PO PRN (22:09)
[2017-07-21] MEDS ORDERED: ALBUTEROL SO4 0.083% IH SOL 2.5 MG/3 ML VIAL.NEB. NEB PRN (22:09)
[2017-07-21] MEDS ORDERED: ACETAMINOPHEN 325 MG TABLET (FP) PO PRN (22:09)
[2017-07-22] MEDS: SODIUM CHLORIDE 1,000 ML IV SCH ×2 (01:08→10:58)
[2017-07-22] MEDS: MEROPENEM 1 GM in DEXTROSE 5%-WATER - 100 ML IVPB SCH ×2 (01:09→11:03)
[2017-07-22] MEDS: ALBUTEROL SO4 2.5/IPRATROPIUM 0.5 INH SOL 3 ML VIAL.NEB. NEB SCH ×6 (02:30→22:08)
[2017-07-22 06:06] LABS: SERUM IRON 58 ug/dL (27-139); TOTAL IRON BINDING CAPACITY 145 ug/dL (250-450); UIBC 87 ug/dL (118-369)
[2017-07-22] MEDS: LORazepam 0.5 MG TABLET PO SCH ×3 (06:20→21:44)
[2017-07-22] MEDS: LEVOTHYROXINE NA 50 MCG TABLET (FP) PO SCH (06:22)
[2017-07-22 09:20] LABS: BASOPHIL 0.7 % (0-2.0); MCH 28.8 pg (25.7-33.7); MEAN CELL VOLUME 89.9 fl (80-96); NEUTROPHILS 94.5 % (42.8-82.8); PLATELET COUNT 483 K/MM3 (134-434); RDW 15.7 % (11.6-15.6); WHITE BLOOD COUNT 15.9 K/mm3 (4.0-10.0)
--- NOTE | 2017-07-22 09:32 | PN ---
Progress Note, Physician Chief Complaint: patient now transfered to from icu on vent awake alert looks better today no fever - Current Medication List Current Medications: Active Medications Acetaminophen (Tylenol -) 650 mg PO Q4H PRN PRN Reason: FEVER OR PAIN Albuterol Sulfate (Ventolin 0.083% Nebulizer Soln -) 1 amp NEB Q4H PRN PRN Reason: SHORT OF BREATH/WHEEZING Albuterol/Ipratropium (Duoneb -) 1 amp NEB Q4HPO [facility] Last Admin: 07/22/17 06:23 Dose: 1 amp Apixaban (Eliquis -) 5 mg PO BID [facility] Artificial Tears (Artificial Tears) 1 drop OU DAILY [facility] Budesonide (Pulmicort 0.25 Mg Nebulizer -) 1 amp NEB BID [facility] Cholestyramine Resin (Questran Light Packet -) 4 gm PO BID [facility] Diltiazem HCl (Cardizem Cd -) 180 mg PO DAILY [facility] Folic Acid (Folic Acid -) 1 mg PO DAILY [facility] Meropenem 1 gm/ Dextrose 100 mls @ 100 mls/hr IVPB Q8H-IV [facility] PRN Reason: Protocol Last Admin: 07/22/17 01:09 Dose: 100 mls/hr Pantoprazole Sodium 40 mg/ (Sodium Chloride) 100 mls @ 200 mls/hr IVPB DAILY [facility] Sodium Chloride (Normal Saline -) 1,000 mls @ 100 mls/hr IV ASDIR [facility] Last Admin: 07/22/17 01:08 Dose: 100 mls/hr Vancomycin HCl 750 mg/ (Dextrose) 250 mls @ 250 mls/hr IVPB DAILY [facility] PRN Reason: Protocol Lactobacillus Acidophilus (Bacid -) 1 tab PO BID [facility] Levothyroxine Sodium (Synthroid -) 50 mcg PO DAILY@0700 [facility] Last Admin: 07/22/17 06:22 Dose: 50 mcg Lorazepam (Ativan -) 0.5 mg PO TID [facility] Last Admin: 07/22/17 06:20 Dose: 0.5 mg Melatonin (Melatonin) 3 mg PO HS [facility] Mirtazapine (Remeron -) 15 mg PO HS [facility] Multivitamins (Total B With C -) 1 each PO DAILY [facility] Oxycodone HCl (Roxicodone -) 5 mg PO Q4H PRN PRN Reason: PAIN Prednisone (Deltasone -) 40 mg PO BID [facility] Thiamine HCl (Vitamin B1 -) 100 mg PO DAILY [facility] Valsartan (Diovan -) 80 mg PO DAILY [facility] - Objective Vital Signs: Vital Signs Temperature 98.2 F 07/22/17 05:52 Pulse Rate 88 07/22/17 05:52 Respiratory Rate 19 07/22/17 06:41 Blood Pressure 151/70 07/22/17 05:52 O2 Sat by Pulse Oximetry (%) 100 07/21/17 20:00 Constitutional: Yes: Calm Neck: Yes: Trachea Midline Cardiovascular: Yes: Pulse Irregular, S1, S2 Respiratory: Yes: Mechanically Ventilated Gastrointestinal: Yes: Normal Bowel Sounds, Soft Edema: No Neurological: Yes: Alert, Oriented Labs: INR, PTT INR 1.72 (0.82-1.09) H D 07/19/17 11:34 Problem List - Problems (1) Sepsis Assessment/Plan: iv abx per ID possible pulm source given trach secertion contact isolation wbc high but trending down Code(s): A41.9 - SEPSIS, UNSPECIFIED ORGANISM Qualifiers: Sepsis type: sepsis due to unspecified organism Qualified Code(s): A41.9 - Sepsis, unspecified organism (2) A-fib Assessment/Plan: cardizem and eliquis HR better controlled Code(s): I48.91 - UNSPECIFIED ATRIAL FIBRILLATION Qualifiers: Atrial fibrillation type: paroxysmal Qualified Code(s): I48.0 - Paroxysmal atrial fibrillation (3) Hypothyroid Assessment/Plan: check tsh synthroid Code(s): E03.9 - HYPOTHYROIDISM, UNSPECIFIED Qualifiers: Hypothyroidism type: unspecified Qualified Code(s): E03.9 - Hypothyroidism, unspecified (4) Acute and chronic respiratory failure with hypoxia Assessment/Plan: on vent now on resp( med/surg) floor bronchodilators Code(s): J96.21 - ACUTE AND CHRONIC RESPIRATORY FAILURE WITH HYPOXIA (5) Anemia Assessment/Plan: heme on board check stool iron agnes got 2 units prbc Code(s): D64.9 - ANEMIA, UNSPECIFIED Qualifiers: Anemia type: unspecified type Qualified Code(s): D64.9 - Anemia, unspecified (6) Diastolic heart failure Assessment/Plan: monitor K on diovan- today labs are pending lopresor and questran Code(s): I50.30 - UNSPECIFIED DIASTOLIC (CONGESTIVE) HEART FAILURE Qualifiers : Heart failure chronicity: chronic Qualified Code(s): I50.32 - Chronic diastolic (congestive) heart failure
[2017-07-22 09:47] LABS: ALK PHOS 75 U/L (45-117); ANION GAP 6 (8-16); BILIRUBIN,TOTAL 0.1 mg/dL (0.2-1.0); CALCIUM 7.8 mg/dL (8.5-10.1); CO2 26 mmol/L (21-32); CREATININE 0.5 mg/dL (0.55-1.02); GLUCOSE,RANDOM 169 mg/dL (74-106); MAGNESIUM 1.8 mg/dL (1.8-2.4); PHOSPHOROUS 2.6 mg/dL (2.5-4.9); SGOT/AST 6 U/L (15-37); SGPT/ALT 9 U/L (12-78); TOT PROT 5.2 g/dl (6.4-8.2)
[2017-07-22 09:56] LABS: THYROID STIMULATING HORMONE 1.09 uIU/ml (0.358-3.74)
[2017-07-22] MEDS ORDERED: VANCOMYCIN 750 MG in DEXTROSE 5%-WATER - 250 ML IVPB SCH (10:00)
[2017-07-22] MEDS: BUDESONIDE 0.25 MG/2ML INH SUSP VIAL NEB SCH ×2 (10:04→22:08)
[2017-07-22] MEDS ORDERED: BUDESONIDE 0.5 MG/2 ML INH SUSP VIAL NEB ONE ×2 (10:04→21:39)
[2017-07-22] MEDS ORDERED: PT OWN MED DRAWER 7, Y5N ONE ×2 (10:47→17:14)
[2017-07-22] MEDS: ARTIFICIAL TEARS (POLYVINYL ALCOHOL 1.4%) OPTH DROPS OU SCH (10:54)
[2017-07-22] MEDS: THIAMINE HCL 100 MG TABLET (FP) PO SCH (10:56)
[2017-07-22] MEDS: VALSARTAN 80 MG TABLET (UD) PO SCH (10:56)
[2017-07-22] MEDS: FOLIC ACID 1 MG TABLET (FP) PO SCH (10:56)
[2017-07-22] MEDS: predniSONE 20 MG TABLET (UD) PO SCH ×2 (10:56→21:45)
[2017-07-22] MEDS: PANTOPRAZOLE SODIUM 40 MG in SODIUM CHLORIDE 100 ML IVPB SCH (10:57)
--- NOTE | 2017-07-22 11:55 | PN ---
Progress Note (short form) - Note Progress Note: Patient seen and examined She has no complains. Moved out of the ICU. She feels better she states than the past few days general: NAD, watching TV Cor: RSR, No murmurs, No gallops Lungs: Clear to P&A Trach collar present Abd: Soft, Normal bowel sounds, No organomegaly Ext:No significant edema Temp Pulse Resp BP Pulse Ox 98 F 98 H 21 150/81 100 07/22/17 08:55 07/22/17 10:04 07/22/17 10:04 07/22/17 08:55 07/22/17 10:04 Current Medications Generic Name Dose Route Start Last Admin Trade Name Freq PRN Reason Stop Dose Admin Acetaminophen 650 mg 07/21/17 22:09 Tylenol - PO Q4H PRN FEVER OR PAIN Albuterol Sulfate 1 amp 07/21/17 22:09 Ventolin 0.083% Nebulizer Soln - NEB Q4H PRN SHORT OF BREATH/WHEEZING Albuterol/Ipratropium 1 amp 07/22/17 02:00 07/22/17 10:02 Duoneb - NEB 1 amp Q4HPO [facility] Administration Apixaban 5 mg 07/22/17 10:00 Eliquis - PO BID [facility]IE Artificial Tears 1 drop 07/22/17 10:00 07/22/17 10:54 Artificial Tears OU 1 drop DAILY [facility]IE Administration Budesonide 1 amp 07/22/17 10:00 07/22/17 10:04 Pulmicort 0.25 Mg Nebulizer - NEB 1 amp BID [facility]IE Administration Cholestyramine Resin 4 gm 07/22/17 10:00 Questran Light Packet - PO BID VAL[facility]IE Diltiazem HCl 180 mg 07/22/17 10:00 07/22/17 10:55 Cardizem Cd - PO 180 mg DAILY [facility] Administration Folic Acid 1 mg 07/22/17 10:00 07/22/17 10:56 Folic Acid - PO 1 mg DAILY [facility] Administration Meropenem 1 gm/ Dextrose 100 mls @ 100 mls/hr 07/22/17 02:00 07/22/17 11:03 IVPB 100 mls/hr Q8H-IV [facility] Administration Protocol Pantoprazole Sodium 40 mg/ 100 mls @ 200 mls/hr 07/22/17 10:00 07/22/17 10:57 Sodium Chloride IVPB 200 mls/hr DAILY [facility] Administration Sodium Chloride 1,000 mls @ 100 mls/hr 07/21/17 22:09 07/22/17 10:58 Normal Saline - IV 100 mls/hr ASDIR [facility] Administration Vancomycin HCl 750 mg/ 250 mls @ 250 mls/hr 07/22/17 10:00 Dextrose IVPB DAILY [facility] Protocol Lactobacillus Acidophilus 1 tab 07/22/17 10:00 Bacid - PO BID [facility] Levothyroxine Sodium 50 mcg 07/22/17 07:00 07/22/17 06:22 Synthroid - PO 50 mcg DAILY@0700 [facility] Administration Lorazepam 0.5 mg 07/22/17 06:00 07/22/17 06:20 Ativan - PO 0.5 mg TID [facility] Administration Melatonin 3 mg 07/22/17 22:00 Melatonin PO HS [facility] Mirtazapine 15 mg 07/22/17 22:00 Remeron - PO HS [facility] Multivitamins 1 each 07/22/17 10:00 Total B With C - PO DAILY [facility] Oxycodone HCl 5 mg 07/21/17 22:09 Roxicodone - PO Q4H PRN PAIN Prednisone 40 mg 07/22/17 10:00 07/22/17 10:56 Deltasone - PO 40 mg BID [facility] Administration Thiamine HCl 100 mg 07/22/17 10:00 07/22/17 10:56 Vitamin B1 - PO 100 mg DAILY [facility] Administration Valsartan 80 mg 07/22/17 10:00 07/22/17 10:56 Diovan - PO 80 mg DAILY [facility] Administration CBC, BMP 07/22/17 09:00 07/22/17 09:00 A/P 67 y/o patient with Severe sepsis Acute anemia leuckocytosis Thrombocytosis Respiratory failure, vent dependant MARLYN Afib on eliquis -anemia, normocytic, likely decreased from acute events, now stable, no further transfusion -Stool occult pending ( communicated with RN to collect) . high ferritin , ESR acute phase reactant, nl B12, folate, await SPEP. Await thyroid studies. -will continue to monitor -leucocytosis, predominantly neutrophils, from sepsis -Thrombocytosis: reactive ,will continue to monitor Problem List - Problems (1) Anemia Code(s): D64.9 - ANEMIA, UNSPECIFIED Qualifiers: Anemia type: unspecified type Qualified Code(s): D64.9 - Anemia, unspecified (2) Leukocytosis Code(s): D72.829 - ELEVATED WHITE BLOOD CELL COUNT, UNSPECIFIED Qualifiers: Leukocytosis type: unspecified Qualified Code(s): D72.829 - Elevated white blood cell count, unspecified (3) Severe sepsis Code(s): A41.9 - SEPSIS, UNSPECIFIED ORGANISM R65.20 - SEVERE SEPSIS WITHOUT SEPTIC SHOCK (4) Respiratory failure Code(s): J96.90 - RESPIRATORY FAILURE, UNSP, UNSP W HYPOXIA OR HYPERCAPNIA Qualifiers: Chronicity: acute on chronic Respiratory failure complication: hypercapnia Qualified Code(s): J96.22 - Acute and chronic respiratory failure with hypercapnia
[2017-07-22] MEDS: VITAMIN B COMPLEX W/C COMBO TABLET (FP) PO SCH (12:16)
[2017-07-22] MEDS: APIXABAN 5 MG TABLET PO SCH ×2 (12:16→21:45)
[2017-07-22] MEDS: CHOLESTYRAMINE/ASPARTAME 4 GM PACKET PO SCH ×2 (12:17→21:45)
[2017-07-22] MEDS: LACTOBACILLUS ACIDOPHILUS 1 EACH TAB (FP) PO SCH ×2 (12:21→21:44)
--- NOTE | 2017-07-22 13:20 | PN ---
Progress Note, Physician History of Present Illness: Leukocytosis and fevers improved, rate-control improved. - Current Medication List Current Medications: Active Medications Acetaminophen (Tylenol -) 650 mg PO Q4H PRN PRN Reason: FEVER OR PAIN Albuterol Sulfate (Ventolin 0.083% Nebulizer Soln -) 1 amp NEB Q4H PRN PRN Reason: SHORT OF BREATH/WHEEZING Albuterol/Ipratropium (Duoneb -) 1 amp NEB Q4HPO [facility] Last Admin: 07/22/17 10:02 Dose: 1 amp Apixaban (Eliquis -) 5 mg PO BID [facility] Last Admin: 07/22/17 12:16 Dose: 5 mg Artificial Tears (Artificial Tears) 1 drop OU DAILY [facility] Last Admin: 07/22/17 10:54 Dose: 1 drop Budesonide (Pulmicort 0.25 Mg Nebulizer -) 1 amp NEB BID [facility] Last Admin: 07/22/17 10:04 Dose: 1 amp Cholestyramine Resin (Questran Light Packet -) 4 gm PO BID [facility] Last Admin: 07/22/17 12:17 Dose: 4 gm Diltiazem HCl (Cardizem Cd -) 180 mg PO DAILY [facility] Last Admin: 07/22/17 10:55 Dose: 180 mg Folic Acid (Folic Acid -) 1 mg PO DAILY [facility] Last Admin: 07/22/17 10:56 Dose: 1 mg Meropenem 1 gm/ Dextrose 100 mls @ 100 mls/hr IVPB Q8H-IV [facility] PRN Reason: Protocol Last Admin: 07/22/17 11:03 Dose: 100 mls/hr Pantoprazole Sodium 40 mg/ (Sodium Chloride) 100 mls @ 200 mls/hr IVPB DAILY [facility] Last Admin: 07/22/17 10:57 Dose: 200 mls/hr Sodium Chloride (Normal Saline -) 1,000 mls @ 100 mls/hr IV ASDIR [facility] Last Admin: 07/22/17 10:58 Dose: 100 mls/hr Vancomycin HCl 750 mg/ (Dextrose) 250 mls @ 250 mls/hr IVPB DAILY [facility] PRN Reason: Protocol Last Admin: 07/22/17 12:15 Dose: 250 mls/hr Lactobacillus Acidophilus (Bacid -) 1 tab PO BID [facility] Last Admin: 07/22/17 12:21 Dose: 1 tab Levothyroxine Sodium (Synthroid -) 50 mcg PO DAILY@0700 [facility] Last Admin: 07/22/17 06:22 Dose: 50 mcg Lorazepam (Ativan -) 0.5 mg PO TID [facility] Last Admin: 07/22/17 06:20 Dose: 0.5 mg Melatonin (Melatonin) 3 mg PO HS [facility] Mirtazapine (Remeron -) 15 mg PO HS [facility] Multivitamins (Total B With C -) 1 each PO DAILY [facility] Last Admin: 07/22/17 12:16 Dose: 1 each Oxycodone HCl (Roxicodone -) 5 mg PO Q4H PRN PRN Reason: PAIN Prednisone (Deltasone -) 40 mg PO BID [facility] Last Admin: 07/22/17 10:56 Dose: 40 mg Thiamine HCl (Vitamin B1 -) 100 mg PO DAILY [facility] Last Admin: 07/22/17 10:56 Dose: 100 mg Valsartan (Diovan -) 80 mg PO DAILY [facility] Last Admin: 07/22/17 10:56 Dose: 80 mg - Objective Vital Signs: Vital Signs Temperature 98 F 07/22/17 08:55 Pulse Rate 98 H 07/22/17 10:04 Respiratory Rate 21 07/22/17 10:04 Blood Pressure 150/81 07/22/17 08:55 O2 Sat by Pulse Oximetry (%) 100 07/22/17 10:04 Constitutional: Yes: No Distress, Calm, Thin Neck: Yes: Supple Cardiovascular: Yes: Pulse Irregular Respiratory: Yes: Mechanically Ventilated, Rhonchi, Wheezes Gastrointestinal: Yes: Normal Bowel Sounds, Soft Edema: No Labs: CBC, BMP 07/22/17 09:00 07/22/17 09:00 INR, PTT INR 1.72 (0.82-1.09) H D 07/19/17 11:34 Problem List - Problems (1) Fever Code(s): R50.9 - FEVER, UNSPECIFIED Qualifiers: Fever type: due to other condition Qualified Code(s): R50.81 - Fever presenting with conditions classified elsewhere (2) Sepsis due to other specified Staphylococcus Code(s): A41.1 - SEPSIS DUE TO OTHER SPECIFIED STAPHYLOCOCCUS (3) A-fib Code(s): I48.91 - UNSPECIFIED ATRIAL FIBRILLATION Qualifiers: Atrial fibrillation type: paroxysmal Qualified Code(s): I48.0 - Paroxysmal atrial fibrillation (4) COPD (chronic obstructive pulmonary disease) Code(s): J44.9 - CHRONIC OBSTRUCTIVE PULMONARY DISEASE, UNSPECIFIED Qualifiers : COPD type: unspecified COPD Qualified Code(s): J44.9 - Chronic obstructive pulmonary disease, unspecified (5) Chronic respiratory failure with hypoxia Code(s): J96.11 - CHRONIC RESPIRATORY FAILURE WITH HYPOXIA (6) Diastolic heart failure Code(s): I50.30 - UNSPECIFIED DIASTOLIC (CONGESTIVE) HEART FAILURE Qualifiers : Heart failure chronicity: chronic Qualified Code(s): I50.32 - Chronic diastolic (congestive) heart failure (7) Gastroparesis Code(s): K31.84 - GASTROPARESIS (8) Hypothyroid Code(s): E03.9 - HYPOTHYROIDISM, UNSPECIFIED Qualifiers: Hypothyroidism type: unspecified Qualified Code(s): E03.9 - Hypothyroidism, unspecified (9) Leukocytosis Code(s): D72.829 - ELEVATED WHITE BLOOD CELL COUNT, UNSPECIFIED Qualifiers: Leukocytosis type: unspecified Qualified Code(s): D72.829 - Elevated white blood cell count, unspecified (10) Sepsis Code(s): A41.9 - SEPSIS, UNSPECIFIED ORGANISM Qualifiers: Sepsis type: sepsis due to unspecified organism Qualified Code(s): A41.9 - Sepsis, unspecified organism (11) Sinus tachycardia Code(s): R00.0 - TACHYCARDIA, UNSPECIFIED (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 Sepsis syndrome improving, r/o pneumonia with h/o multi-drug resistant organisms 2. COPD with Chronic Hypoxic Respiratory Failure post tracheostomy 3. Diastolic LV dysfunction with class I NYHA classification LV congestive heart failure, compensated/euvolemic 4. Paroxysmal Atrial Fibrillation/atrial tachycardia on NOAC, [id number] score of 4 5. HTN 6. Hypothyroidism 7. History of C. Difficile Colitis 8. MARLYN and Hyperkalemia resolved 9. Anemia post transfusion P: 1. Vancomycin and Meropenem based on previous cultures, f/u C&S, contact isolation 2. Inhaled bronchodilators, O2 to keep SpO2 >90%, prednisone taper with GI protection 3. Continue Cardizem CD 180 qd, Diovan 80 qd, Questran 4 bid, Lopressor 5 q4 prn 4. Continue Eliquis 5 bid for DVT and stroke thrombophylaxis given elevated risk score
--- NOTE | 2017-07-22 14:14 | PN ---
Progress Note, Physician History of Present Illness: Awake, alert Breathing non-labored Reports less thick tracheal secretions Denies dyspnea/ chest pain No fever/ chills WBC slightly elevated on steroids BC (-) - Current Medication List Current Medications: Active Medications Acetaminophen (Tylenol -) 650 mg PO Q4H PRN PRN Reason: FEVER OR PAIN Albuterol Sulfate (Ventolin 0.083% Nebulizer Soln -) 1 amp NEB Q4H PRN PRN Reason: SHORT OF BREATH/WHEEZING Albuterol/Ipratropium (Duoneb -) 1 amp NEB Q4HPO [facility] Last Admin: 07/22/17 14:05 Dose: 1 amp Apixaban (Eliquis -) 5 mg PO BID [facility] Last Admin: 07/22/17 12:16 Dose: 5 mg Artificial Tears (Artificial Tears) 1 drop OU DAILY [facility] Last Admin: 07/22/17 10:54 Dose: 1 drop Budesonide (Pulmicort 0.25 Mg Nebulizer -) 1 amp NEB BID [facility] Last Admin: 07/22/17 10:04 Dose: 1 amp Cholestyramine Resin (Questran Light Packet -) 4 gm PO BID [facility] Last Admin: 07/22/17 12:17 Dose: 4 gm Diltiazem HCl (Cardizem Cd -) 180 mg PO DAILY [facility] Last Admin: 07/22/17 10:55 Dose: 180 mg Folic Acid (Folic Acid -) 1 mg PO DAILY [facility] Last Admin: 07/22/17 10:56 Dose: 1 mg Meropenem 1 gm/ Dextrose 100 mls @ 100 mls/hr IVPB Q8H-IV [facility] PRN Reason: Protocol Last Admin: 07/22/17 11:03 Dose: 100 mls/hr Pantoprazole Sodium 40 mg/ (Sodium Chloride) 100 mls @ 200 mls/hr IVPB DAILY [facility] Last Admin: 07/22/17 10:57 Dose: 200 mls/hr Sodium Chloride (Normal Saline -) 1,000 mls @ 100 mls/hr IV ASDIR [facility] Last Admin: 07/22/17 10:58 Dose: 100 mls/hr Vancomycin HCl 750 mg/ (Dextrose) 250 mls @ 250 mls/hr IVPB DAILY [facility]IE PRN Reason: Protocol Last Admin: 07/22/17 12:15 Dose: 250 mls/hr Lactobacillus Acidophilus (Bacid -) 1 tab PO BID [facility] Last Admin: 07/22/17 12:21 Dose: 1 tab Levothyroxine Sodium (Synthroid -) 50 mcg PO DAILY@0700 [facility] Last Admin: 07/22/17 06:22 Dose: 50 mcg Lorazepam (Ativan -) 0.5 mg PO TID [facility] Last Admin: 07/22/17 06:20 Dose: 0.5 mg Melatonin (Melatonin) 3 mg PO HS [facility] Mirtazapine (Remeron -) 15 mg PO HS [facility] Multivitamins (Total B With C -) 1 each PO DAILY [facility] Last Admin: 07/22/17 12:16 Dose: 1 each Oxycodone HCl (Roxicodone -) 5 mg PO Q4H PRN PRN Reason: PAIN Prednisone (Deltasone -) 40 mg PO BID [facility] Last Admin: 07/22/17 10:56 Dose: 40 mg Thiamine HCl (Vitamin B1 -) 100 mg PO DAILY [facility] Last Admin: 07/22/17 10:56 Dose: 100 mg Valsartan (Diovan -) 80 mg PO DAILY [facility] Last Admin: 07/22/17 10:56 Dose: 80 mg - Objective Vital Signs: Vital Signs Temperature 98 F 07/22/17 08:55 Pulse Rate 98 H 07/22/17 10:04 Respiratory Rate 21 07/22/17 14:02 Blood Pressure 150/81 07/22/17 08:55 O2 Sat by Pulse Oximetry (%) 100 07/22/17 10:04 Constitutional: Yes: No Distress, Cachectic Cardiovascular: Yes: Regular Rate and Rhythm, S1, S2 Respiratory: Yes: Diminished Gastrointestinal: Yes: Normal Bowel Sounds, Soft. No: Tenderness Edema: No Labs: CBC, BMP 07/22/17 09:00 07/22/17 09:00 INR, PTT INR 1.72 (0.82-1.09) H D 07/19/17 11:34 Assessment/Plan Exacerbation COPD Chronic respiratory failure Tracheobronchitis v. pneumonia Sputum c/s mixed ( grp G strep, Providencia ) Substitute cefepime 1gm q8h
--- NOTE | 2017-07-22 14:17 | PN ---
Progress Note (short form) - Note Progress Note: PULMONARY AWAKE/APPEARS STABLE VSS/AFEBRILE ANICTERIC/TRACH/10/350/45/5 DIMINISHED B/L BREATH SOUNDS S1S2 BS+ NO EDEMA LABS/MEDS/NOTES/IMAGING/MICRO REVIEWED Severe Sepsis improving Acute Kidney Injury improving Acute on Chronic Hypoxic Vent Dependent Respiratory Failure Severe COPD LV Diastolic Dysfunction Paroxysmal Atrial Fibrilation HTN Hypothyroidism - continue antibiotics per ID - IVF/same vent settings - monitor urine output, creatinine - taper prednisone - inhaled bronchodilators - O2 to keep SpO2 >90% - rate control - continue anticoagulation - PO as tolerated - DVT/GI prophylaxis - continue to monitor Rosy BETANCOURT MD
--- NOTE | 2017-07-22 14:21 | PN ---
Progress Note (short form) - Note Progress Note: Renal follow up for MARLYN and Hyperkalemia PT seen and examined at the bedside awake and alert on Vent via ET tube feels better denies any sob, CP comfortable on the vent Vital Signs Temperature 98 F 07/22/17 08:55 Pulse Rate 98 H 07/22/17 10:04 Respiratory Rate 21 07/22/17 14:02 Blood Pressure 150/81 07/22/17 08:55 O2 Sat by Pulse Oximetry (%) 100 07/22/17 10:04 Intake & Output 07/19/17 07/20/17 07/21/17 07/22/17 23:59 23:59 23:59 23:59 Intake Total 550 3140 2390 860 Output Total 300 1200 700 Balance 250 1940 1690 860 Weight 85 lb 5.102 oz 85 lb 5.102 oz 89 lb 90 lb Gen: NAD, awake and alert CVS: RRR Lungs: Dec BS b/l lung younger Abd soft NT/ND Ext: no edema CBC, BMP 07/22/17 09:00 07/22/17 09:00 Current Medications Acetaminophen (Tylenol -) 650 mg PO Q4H PRN PRN Reason: FEVER OR PAIN Albuterol Sulfate (Ventolin 0.083% Nebulizer Soln -) 1 amp NEB Q4H PRN PRN Reason: SHORT OF BREATH/WHEEZING Albuterol/Ipratropium (Duoneb -) 1 amp NEB Q4HPO [facility] Last Admin: 07/22/17 14:05 Dose: 1 amp Apixaban (Eliquis -) 5 mg PO BID [facility] Last Admin: 07/22/17 12:16 Dose: 5 mg Artificial Tears (Artificial Tears) 1 drop OU DAILY [facility] Last Admin: 07/22/17 10:54 Dose: 1 drop Budesonide (Pulmicort 0.25 Mg Nebulizer -) 1 amp NEB BID [facility] Last Admin: 07/22/17 10:04 Dose: 1 amp Cefepime HCl (Maxipime (Restricted To Id) -) 1 gm IVPB Q8H-IV [facility] PRN Reason: Protocol Cholestyramine Resin (Questran Light Packet -) 4 gm PO BID [facility] Last Admin: 07/22/17 12:17 Dose: 4 gm Diltiazem HCl (Cardizem Cd -) 180 mg PO DAILY [facility] Last Admin: 07/22/17 10:55 Dose: 180 mg Folic Acid (Folic Acid -) 1 mg PO DAILY [facility] Last Admin: 07/22/17 10:56 Dose: 1 mg Pantoprazole Sodium 40 mg/ (Sodium Chloride) 100 mls @ 200 mls/hr IVPB DAILY [facility] Last Admin: 07/22/17 10:57 Dose: 200 mls/hr Sodium Chloride (Normal Saline -) 1,000 mls @ 100 mls/hr IV ASDIR [facility] Last Admin: 07/22/17 10:58 Dose: 100 mls/hr Lactobacillus Acidophilus (Bacid -) 1 tab PO BID [facility] Last Admin: 07/22/17 12:21 Dose: 1 tab Levothyroxine Sodium (Synthroid -) 50 mcg PO DAILY@0700 [facility] Last Admin: 07/22/17 06:22 Dose: 50 mcg Lorazepam (Ativan -) 0.5 mg PO TID [facility] Last Admin: 07/22/17 06:20 Dose: 0.5 mg Melatonin (Melatonin) 3 mg PO [facility] Mirtazapine (Remeron -) 15 mg PO HS [facility] Multivitamins (Total B With C -) 1 each PO DAILY [facility] Last Admin: 07/22/17 12:16 Dose: 1 each Oxycodone HCl (Roxicodone -) 5 mg PO Q4H PRN PRN Reason: PAIN Prednisone (Deltasone -) 40 mg PO BID [facility] Last Admin: 07/22/17 10:56 Dose: 40 mg Thiamine HCl (Vitamin B1 -) 100 mg PO DAILY [facility] Last Admin: 07/22/17 10:56 Dose: 100 mg Valsartan (Diovan -) 80 mg PO DAILY [facility] Last Admin: 07/22/17 10:56 Dose: 80 mg A/P 67 year old woman with PMhx of COPD with respiratory failure now chroniclly on the vent, Anemia, Afib, COPD, Gastroparesis, Hypothrydism who presented with Fever and SOB and found to have Sepsis syndrome and suspected PNA with MARLYN and Hyperkalemia. #Acute Renal Failure with hyperkalemia secondary to renal hypoprofusion in setting of Sepsis/ARB Renal function and K both improved and stable decrease IVF rate to 60cc per hour Trend BUN/Cr #Sepsis/Resp Failure/PNA continue Abx as per ID vent support Pulmonary and Id follow up #Anemia s/p PRBC transfusion Fernando Douglas DO Problem List - Problems (1) Fever Code(s): R50.9 - FEVER, UNSPECIFIED Qualifiers: Fever type: due to other condition Qualified Code(s): R50.81 - Fever presenting with conditions classified elsewhere (2) A-fib Code(s): I48.91 - UNSPECIFIED ATRIAL FIBRILLATION Qualifiers: Atrial fibrillation type: paroxysmal Qualified Code(s): I48.0 - Paroxysmal atrial fibrillation (3) Acute and chronic respiratory failure with hypoxia Code(s): J96.21 - ACUTE AND CHRONIC RESPIRATORY FAILURE WITH HYPOXIA (4) Dehydration Code(s): E86.0 - DEHYDRATION (5) Hyperkalemia Code(s): E87.5 - HYPERKALEMIA (6) Acute renal failure Code(s): N17.9 - ACUTE KIDNEY FAILURE, UNSPECIFIED
[2017-07-22] MEDS ORDERED: CEFEPIME HCL 1 GM VIAL (RESTRICTED TO ID) ONE (17:15)
[2017-07-22] MEDS ORDERED: DEXTROSE 5%-WATER 100 ML IVPB ONE (17:16)
[2017-07-22] MEDS: CEFEPIME 1 GM in DEXTROSE 5%-WATER 100 ML IVPB SCH (17:24)
[2017-07-22] MEDS ORDERED: CEFEPIME HCL 1 GM VIAL (RESTRICTED TO ID) IVPB SCH (18:00)
[2017-07-22] MEDS: MIRTAZAPINE 15 MG TABLET (FP) PO SCH (21:45)
[2017-07-22] MEDS: MELATONIN 1 MG TABLET PO SCH (22:51)
[2017-07-23 00:06] LABS: A/G RATIO 0.8 (0.7-1.7); ALBUMIN 2.3 g/dL (2.9-4.4); ALPHA-1-GLOBULIN 0.4 g/dL (0.0-0.4); BETA GLOBULIN 0.8 g/dL (0.7-1.3); GAMMA GLOBULIN 0.7 g/dL (0.4-1.8); GLOBULIN, TOTAL 2.9 g/dL (2.2-3.9); M-SPIKE Not Observed g/dL (Not Observed); TOTAL PROTEIN 5.2 g/dL (6.0-8.5)
[2017-07-23] MEDS: SODIUM CHLORIDE 1,000 ML IV SCH (01:00)
[2017-07-23] MEDS ORDERED: CEFEPIME HCL 1 GM VIAL (RESTRICTED TO ID) ONE ×4 (01:03→23:57)
[2017-07-23] MEDS ORDERED: DEXTROSE 5%-WATER 100 ML IVPB ONE ×4 (01:04→23:57)
[2017-07-23] MEDS: CEFEPIME 1 GM in DEXTROSE 5%-WATER 100 ML IVPB SCH ×3 (01:29→17:17)
[2017-07-23] MEDS: ALBUTEROL SO4 2.5/IPRATROPIUM 0.5 INH SOL 3 ML VIAL.NEB. NEB SCH ×6 (02:00→22:00)
[2017-07-23] MEDS: LORazepam 0.5 MG TABLET PO SCH ×3 (06:12→21:07)
[2017-07-23] MEDS: LEVOTHYROXINE NA 50 MCG TABLET (FP) PO SCH (06:12)
[2017-07-23 08:40] LABS: MCH 29.3 pg (25.7-33.7); MCHC 33.1 g/dl (32.0-36.0); MEAN CELL VOLUME 88.6 fl (80-96); MEAN PLT VOLUME 7.7 fl (7.5-11.1); PLATELET COUNT 433 K/MM3 (134-434); RDW 15.6 % (11.6-15.6); WHITE BLOOD COUNT 17.1 K/mm3 (4.0-10.0)
[2017-07-23 09:37] LABS: ALBUMIN 2.1 g/dl (3.4-5.0); ANION GAP 4 (8-16); BILIRUBIN,TOTAL 0.2 mg/dL (0.2-1.0); CALCIUM 8.2 mg/dL (8.5-10.1); CO2 28 mmol/L (21-32); CREATININE 0.5 mg/dL (0.55-1.02); GLUCOSE,RANDOM 154 mg/dL (74-106); SGOT/AST 18 U/L (15-37); SGPT/ALT 17 U/L (12-78); TOT PROT 5.1 g/dl (6.4-8.2)
[2017-07-23 09:38] LABS: ALK PHOS 77 U/L (45-117)
[2017-07-23] MEDS ORDERED: PT OWN MED DRAWER 7, Y5N ONE (09:57)
[2017-07-23] MEDS: ARTIFICIAL TEARS (POLYVINYL ALCOHOL 1.4%) OPTH DROPS OU SCH (10:12)
[2017-07-23] MEDS: LACTOBACILLUS ACIDOPHILUS 1 EACH TAB (FP) PO SCH ×2 (10:13→21:05)
[2017-07-23] MEDS: predniSONE 20 MG TABLET (UD) PO SCH ×2 (10:13→21:06)
[2017-07-23] MEDS: FOLIC ACID 1 MG TABLET (FP) PO SCH (10:14)
[2017-07-23] MEDS: VALSARTAN 80 MG TABLET (UD) PO SCH (10:14)
[2017-07-23] MEDS: THIAMINE HCL 100 MG TABLET (FP) PO SCH (10:14)
[2017-07-23] MEDS: APIXABAN 5 MG TABLET PO SCH ×2 (10:15→21:08)
[2017-07-23] MEDS: VITAMIN B COMPLEX W/C COMBO TABLET (FP) PO SCH (10:15)
[2017-07-23] MEDS: PANTOPRAZOLE SODIUM 40 MG in SODIUM CHLORIDE 100 ML IVPB SCH (10:16)
[2017-07-23] MEDS: CHOLESTYRAMINE/ASPARTAME 4 GM PACKET PO SCH ×2 (10:17→21:10)
--- NOTE | 2017-07-23 10:39 | PN ---
Progress Note (short form) - Note Progress Note: Renal follow up for MARLYN and Hyperkalemia PT seen and examined at the bedside awake on vent 45% FiO2 no overnight events no acute complaints Vital Signs Temperature 97.8 F 07/23/17 06:42 Pulse Rate 86 07/23/17 06:42 Respiratory Rate 16 07/23/17 06:42 Blood Pressure 149/79 07/23/17 06:42 O2 Sat by Pulse Oximetry (%) 96 07/22/17 18:06 Intake & Output 07/20/17 07/21/17 07/22/17 07/23/17 23:59 23:59 23:59 23:59 Intake Total 3140 2390 1550 1500 Output Total 1200 700 Balance 1940 1690 1550 1500 Weight 85 lb 5.102 oz 89 lb 90 lb Gen: NAD, awake and alert CVS: RRR Lungs: Dec BS b/l lung younger Abd soft NT/ND Ext: no edema CBC, BMP 07/23/17 08:00 07/23/17 08:00 Current Medications Acetaminophen (Tylenol -) 650 mg PO Q4H PRN PRN Reason: FEVER OR PAIN Albuterol Sulfate (Ventolin 0.083% Nebulizer Soln -) 1 amp NEB Q4H PRN PRN Reason: SHORT OF BREATH/WHEEZING Albuterol/Ipratropium (Duoneb -) 1 amp NEB Q4HPO [facility] Last Admin: 07/23/17 06:00 Dose: 1 amp Apixaban (Eliquis -) 5 mg PO BID [facility] Last Admin: 07/23/17 10:15 Dose: 5 mg Artificial Tears (Artificial Tears) 1 drop OU DAILY [facility] Last Admin: 07/23/17 10:12 Dose: 1 drop Budesonide (Pulmicort 0.25 Mg Nebulizer -) 1 amp NEB BID [facility] Last Admin: 07/22/17 22:08 Dose: 1 amp Cholestyramine Resin (Questran Light Packet -) 4 gm PO BID [facility] Last Admin: 07/23/17 10:17 Dose: 4 gm Diltiazem HCl (Cardizem Cd -) 180 mg PO DAILY [facility] Last Admin: 07/23/17 10:13 Dose: 180 mg Folic Acid (Folic Acid -) 1 mg PO DAILY [facility] Last Admin: 07/23/17 10:14 Dose: 1 mg Pantoprazole Sodium 40 mg/ (Sodium Chloride) 100 mls @ 200 mls/hr IVPB DAILY [facility] Last Admin: 07/23/17 10:16 Dose: 200 mls/hr Sodium Chloride (Normal Saline -) 1,000 mls @ 100 mls/hr IV ASDIR [facility] Last Admin: 07/23/17 01:00 Dose: 100 mls/hr Cefepime HCl 1 gm/ Dextrose 100 mls @ 200 mls/hr IVPB Q8H-IV [facility] Last Admin: 07/23/17 10:16 Dose: 200 mls/hr Lactobacillus Acidophilus (Bacid -) 1 tab PO BID [facility] Last Admin: 07/23/17 10:13 Dose: 1 tab Levothyroxine Sodium (Synthroid -) 50 mcg PO DAILY@0700 [facility] Last Admin: 07/23/17 06:12 Dose: 50 mcg Lorazepam (Ativan -) 0.5 mg PO TID [facility] Last Admin: 07/23/17 06:12 Dose: 0.5 mg Melatonin (Melatonin) 3 mg PO HS [facility] Last Admin: 07/22/17 22:51 Dose: 3 mg Mirtazapine (Remeron -) 15 mg PO HS [facility] Last Admin: 07/22/17 21:45 Dose: 15 mg Multivitamins (Total B With C -) 1 each PO DAILY [facility] Last Admin: 07/23/17 10:15 Dose: 1 each Oxycodone HCl (Roxicodone -) 5 mg PO Q4H PRN PRN Reason: PAIN Last Admin: 07/22/17 19:34 Dose: 5 mg Prednisone (Deltasone -) 40 mg PO BID [facility] Last Admin: 07/23/17 10:13 Dose: 40 mg Thiamine HCl (Vitamin B1 -) 100 mg PO DAILY [facility] Last Admin: 07/23/17 10:14 Dose: 100 mg Valsartan (Diovan -) 80 mg PO DAILY [facility] Last Admin: 07/23/17 10:14 Dose: 80 mg A/P 67 year old woman with PMhx of COPD with respiratory failure now chroniclly on the vent, Anemia, Afib, COPD, Gastroparesis, Hypothrydism who presented with Fever and SOB and found to have Sepsis syndrome and suspected PNA with MARLYN and Hyperkalemia. #Acute Renal Failure with hyperkalemia secondary to renal hypoprofusion in setting of Sepsis/ARB Renal function improved and stable K is stable can d/c IVF continue ARB Trend BUN/Cr levels #Sepsis/Resp Failure/PNA continue Abx as per ID vent support Pulmonary and Id follow up #Anemia s/p PRBC transfusion Fernando Douglas DO Problem List - Problems (1) Fever Code(s): R50.9 - FEVER, UNSPECIFIED Qualifiers: Fever type: due to other condition Qualified Code(s): R50.81 - Fever presenting with conditions classified elsewhere (2) A-fib Code(s): I48.91 - UNSPECIFIED ATRIAL FIBRILLATION Qualifiers: Atrial fibrillation type: paroxysmal Qualified Code(s): I48.0 - Paroxysmal atrial fibrillation (3) Acute and chronic respiratory failure with hypoxia Code(s): J96.21 - ACUTE AND CHRONIC RESPIRATORY FAILURE WITH HYPOXIA (4) Dehydration Code(s): E86.0 - DEHYDRATION (5) Hyperkalemia Code(s): E87.5 - HYPERKALEMIA (6) Acute renal failure Code(s): N17.9 - ACUTE KIDNEY FAILURE, UNSPECIFIED
[2017-07-23] MEDS: BUDESONIDE 0.25 MG/2ML INH SUSP VIAL NEB SCH ×2 (10:40→22:10)
--- NOTE | 2017-07-23 11:02 | PN ---
Progress Note, Physician Chief Complaint: ASLEEP VENT TRACH DEPENDENT - Current Medication List Current Medications: Active Medications Acetaminophen (Tylenol -) 650 mg PO Q4H PRN PRN Reason: FEVER OR PAIN Albuterol Sulfate (Ventolin 0.083% Nebulizer Soln -) 1 amp NEB Q4H PRN PRN Reason: SHORT OF BREATH/WHEEZING Albuterol/Ipratropium (Duoneb -) 1 amp NEB Q4HPO [facility] Last Admin: 07/23/17 10:15 Dose: 1 amp Apixaban (Eliquis -) 5 mg PO BID [facility] Last Admin: 07/23/17 10:15 Dose: 5 mg Artificial Tears (Artificial Tears) 1 drop OU DAILY [facility] Last Admin: 07/23/17 10:12 Dose: 1 drop Budesonide (Pulmicort 0.25 Mg Nebulizer -) 1 amp NEB BID [facility] Last Admin: 07/23/17 10:40 Dose: 1 amp Cholestyramine Resin (Questran Light Packet -) 4 gm PO BID [facility] Last Admin: 07/23/17 10:17 Dose: 4 gm Diltiazem HCl (Cardizem Cd -) 180 mg PO DAILY [facility] Last Admin: 07/23/17 10:13 Dose: 180 mg Folic Acid (Folic Acid -) 1 mg PO DAILY [facility] Last Admin: 07/23/17 10:14 Dose: 1 mg Pantoprazole Sodium 40 mg/ (Sodium Chloride) 100 mls @ 200 mls/hr IVPB DAILY [facility] Last Admin: 07/23/17 10:16 Dose: 200 mls/hr Cefepime HCl 1 gm/ Dextrose 100 mls @ 200 mls/hr IVPB Q8H-IV [facility] Last Admin: 07/23/17 10:16 Dose: 200 mls/hr Lactobacillus Acidophilus (Bacid -) 1 tab PO BID [facility] Last Admin: 07/23/17 10:13 Dose: 1 tab Levothyroxine Sodium (Synthroid -) 50 mcg PO DAILY@0700 [facility] Last Admin: 07/23/17 06:12 Dose: 50 mcg Lorazepam (Ativan -) 0.5 mg PO TID [facility] Last Admin: 07/23/17 06:12 Dose: 0.5 mg Melatonin (Melatonin) 3 mg PO HS [facility] Last Admin: 07/22/17 22:51 Dose: 3 mg Mirtazapine (Remeron -) 15 mg PO HS [facility] Last Admin: 07/22/17 21:45 Dose: 15 mg Multivitamins (Total B With C -) 1 each PO DAILY [facility] Last Admin: 07/23/17 10:15 Dose: 1 each Oxycodone HCl (Roxicodone -) 5 mg PO Q4H PRN PRN Reason: PAIN Last Admin: 07/22/17 19:34 Dose: 5 mg Prednisone (Deltasone -) 40 mg PO BID [facility] Last Admin: 07/23/17 10:13 Dose: 40 mg Thiamine HCl (Vitamin B1 -) 100 mg PO DAILY [facility] Last Admin: 07/23/17 10:14 Dose: 100 mg Valsartan (Diovan -) 80 mg PO DAILY [facility] Last Admin: 07/23/17 10:14 Dose: 80 mg - Objective Vital Signs: Vital Signs Temperature 96.5 F L 07/23/17 10:00 Pulse Rate 93 H 07/23/17 10:00 Respiratory Rate 18 07/23/17 10:15 Blood Pressure 152/89 07/23/17 10:00 O2 Sat by Pulse Oximetry (%) 95 07/23/17 09:00 Constitutional: Yes: Moderate Distress Eyes: Yes: WNL HENT: Yes: WNL Neck: Yes: WNL Cardiovascular: Yes: WNL Respiratory: Yes: WNL Gastrointestinal: Yes: WNL Genitourinary: Yes: Nelson Present Musculoskeletal: Yes: Muscle Weakness Extremities: Yes: WNL Edema: No Peripheral Pulses WNL: Yes Integumentary: Yes: WNL Wound/Incision: Yes: Clean/Dry Neurological: Yes: Other ...Motor Strength: LLE, RLE Psychiatric: Yes: Other Labs: CBC, BMP 07/23/17 08:00 07/23/17 08:00 INR, PTT INR 1.72 (0.82-1.09) H D 07/19/17 11:34 Problem List - Problems (1) Acute renal failure Code(s): N17.9 - ACUTE KIDNEY FAILURE, UNSPECIFIED (2) Anemia Code(s): D64.9 - ANEMIA, UNSPECIFIED Qualifiers: Anemia type: unspecified type Qualified Code(s): D64.9 - Anemia, unspecified (3) Fever Code(s): R50.9 - FEVER, UNSPECIFIED Qualifiers: Fever type: due to other condition Qualified Code(s): R50.81 - Fever presenting with conditions classified elsewhere (4) Hyperkalemia Code(s): E87.5 - HYPERKALEMIA (5) Sepsis due to other specified Staphylococcus Code(s): A41.1 - SEPSIS DUE TO OTHER SPECIFIED STAPHYLOCOCCUS (6) A-fib Code(s): I48.91 - UNSPECIFIED ATRIAL FIBRILLATION Qualifiers: Atrial fibrillation type: paroxysmal Qualified Code(s): I48.0 - Paroxysmal atrial fibrillation (7) Acute and chronic respiratory failure with hypoxia Code(s): J96.21 - ACUTE AND CHRONIC RESPIRATORY FAILURE WITH HYPOXIA Assessment/Plan IV ABX PER ID TRACH DEPENDENT ON VENT LABS REVIEWED CHRONICALLY ILL WOMAN WITH MULTIPLE MEDICAL PROBLEMS WITH POOR QUALITY OF LIFE AND POOR OVERALL PROGNOSIS
--- NOTE | 2017-07-23 11:43 | PN ---
Progress Note (short form) - Note Progress Note: Awake on AC Mode of vent. Still wuth some tracheal secretions, but less. Afebrile. Intake & Output 07/20/17 07/21/17 07/22/17 07/23/17 23:59 23:59 23:59 23:59 Intake Total 3140 2390 1550 2100 Output Total 1200 700 Balance 1940 1690 1550 2100 Weight 85 lb 5.102 oz 89 lb 90 lb Last Vital Signs Temp Pulse Resp BP Pulse Ox 96.5 F L 93 H 18 152/89 95 07/23/17 10:00 07/23/17 10:00 07/23/17 10:15 07/23/17 10:00 07/23/17 09:00 Active Medications Acetaminophen (Tylenol -) 650 mg PO Q4H PRN PRN Reason: FEVER OR PAIN Albuterol Sulfate (Ventolin 0.083% Nebulizer Soln -) 1 amp NEB Q4H PRN PRN Reason: SHORT OF BREATH/WHEEZING Albuterol/Ipratropium (Duoneb -) 1 amp NEB Q4HPO [facility] Last Admin: 07/23/17 10:15 Dose: 1 amp Apixaban (Eliquis -) 5 mg PO BID [facility] Last Admin: 07/23/17 10:15 Dose: 5 mg Artificial Tears (Artificial Tears) 1 drop OU DAILY [facility] Last Admin: 07/23/17 10:12 Dose: 1 drop Budesonide (Pulmicort 0.25 Mg Nebulizer -) 1 amp NEB BID [facility] Last Admin: 07/23/17 10:40 Dose: 1 amp Cholestyramine Resin (Questran Light Packet -) 4 gm PO BID [facility] Last Admin: 07/23/17 10:17 Dose: 4 gm Diltiazem HCl (Cardizem Cd -) 180 mg PO DAILY [facility] Last Admin: 07/23/17 10:13 Dose: 180 mg Folic Acid (Folic Acid -) 1 mg PO DAILY [facility] Last Admin: 07/23/17 10:14 Dose: 1 mg Pantoprazole Sodium 40 mg/ (Sodium Chloride) 100 mls @ 200 mls/hr IVPB DAILY [facility] Last Admin: 07/23/17 10:16 Dose: 200 mls/hr Cefepime HCl 1 gm/ Dextrose 100 mls @ 200 mls/hr IVPB Q8H-IV [facility] Last Admin: 07/23/17 10:16 Dose: 200 mls/hr Lactobacillus Acidophilus (Bacid -) 1 tab PO BID [facility] Last Admin: 07/23/17 10:13 Dose: 1 tab Levothyroxine Sodium (Synthroid -) 50 mcg PO DAILY@0700 [facility] Last Admin: 07/23/17 06:12 Dose: 50 mcg Lorazepam (Ativan -) 0.5 mg PO TID [facility] Last Admin: 07/23/17 06:12 Dose: 0.5 mg Melatonin (Melatonin) 3 mg PO HS [facility] Last Admin: 07/22/17 22:51 Dose: 3 mg Mirtazapine (Remeron -) 15 mg PO HS [facility] Last Admin: 07/22/17 21:45 Dose: 15 mg Multivitamins (Total B With C -) 1 each PO DAILY [facility] Last Admin: 07/23/17 10:15 Dose: 1 each Oxycodone HCl (Roxicodone -) 5 mg PO Q4H PRN PRN Reason: PAIN Last Admin: 07/22/17 19:34 Dose: 5 mg Prednisone (Deltasone -) 40 mg PO BID [facility] Last Admin: 07/23/17 10:13 Dose: 40 mg Thiamine HCl (Vitamin B1 -) 100 mg PO DAILY [facility] Last Admin: 07/23/17 10:14 Dose: 100 mg Valsartan (Diovan -) 80 mg PO DAILY [facility] Last Admin: 07/23/17 10:14 Dose: 80 mg Constitutional: Yes: Awake, vented Eyes: Yes: WNL HENT: Yes: Intact Trach Neck: Yes: WNL Cardiovascular: Yes: WNL Respiratory: Yes: Vented, scattered rhonchi Gastrointestinal: Yes: WNL Genitourinary: Yes: Nelson Present Musculoskeletal: Yes: Muscle Weakness Extremities: Yes: WNL Edema: No Peripheral Pulses WNL: Yes Integumentary: Yes: WNL Wound/Incision: Yes: Clean/Dry Neurological: Yes: Other ...Motor Strength: LLE, RLE Psychiatric: Yes: Other Labs: Laboratory Results - last 24 hr 07/19/17 07/21/17 07/23/17 18:15 05:00 08:00 WBC 17.1 H RBC 3.71 Hgb 10.9 Hct 32.8 MCV 88.6 MCH 29.3 MCHC 33.1 RDW 15.6 Plt Count 433 MPV 7.7 Neutrophils % No Result Required. Lymphocytes % No Result Required. Sodium Potassium Chloride Carbon Dioxide Anion Gap BUN Creatinine Creat Clearance w eGFR Random Glucose Calcium Iron 58 TIBC 145 L Iron Saturation 40 Total Bilirubin AST ALT Alkaline Phosphatase Serum Total Protein 5.2 L Total Protein Albumin 2.3 L Globulin 2.9 Albumin/Globulin Ratio 0.8 Zuosh-0-Bnqtmzxvi 0.4 Pgiam-1-Yvvpahslm 1.0 Beta Globulins 0.8 Gamma Globulins 0.7 IgG 634 L IgA 172 IgM 75 POLINA M-Charlie Not observed POLINA Comments Serum POLINA Interpret Anti-A Titer Cancelled Blood Type Cancelled Antibody Screen Cancelled Crossmatch See Detail Spec Expiration Date Cancelled 07/23/17 08:00 WBC RBC Hgb Hct MCV MCH MCHC RDW Plt Count MPV Neutrophils % Lymphocytes % Sodium 138 Potassium 4.8 Chloride 106 Carbon Dioxide 28 Anion Gap 4 L BUN 24 H Creatinine 0.5 L Creat Clearance w eGFR > 60 Random Glucose 154 H Calcium 8.2 L Iron TIBC Iron Saturation Total Bilirubin 0.2 D AST 18 D ALT 17 D Alkaline Phosphatase 77 Serum Total Protein Total Protein 5.1 L Albumin 2.1 L Globulin Albumin/Globulin Ratio Eokbv-4-Dqwkpqdbf Doiud-0-Mqugslfla Beta Globulins Gamma Globulins IgG IgA IgM POLINA M-Charlie POLINA Comments Serum POLINA Interpret Anti-A Titer Blood Type Antibody Screen Crossmatch Spec Expiration Date IMP: Severe Sepsis improving Acute Kidney Injury improving Acute on Chronic Hypoxic Vent Dependent Respiratory Failure Severe COPD LV Diastolic Dysfunction Paroxysmal Atrial Fibrilation HTN Hypothyroidism - ABX per ID - Same vent settings -> SBTs as tolerated - Steroid taper - inhaled bronchodilators - rate control - continue anticoagulation - DVT/GI prophylaxis Dr Tate
[2017-07-23 11:45] LABS: METAMYELOCYTE 2 % (0-2); PLATELET COMMENT2 NO CLOTTING DETECTED; PLATELET COMMENT3 FEW LARGE PLTS; PLATELET ESTIMATE SLT INCREASED (NORMAL); TOTAL CELLS COUNTED 100
--- NOTE | 2017-07-23 14:22 | PN ---
Progress Note (short form) - Note Progress Note: doing well no complaints on po prednisone trach to vent Vital Signs Period Temp Pulse Resp BP Sys/Parra Pulse Ox Last 24 Hr 96.5 F-98.8 F 86-100 14-24 144-155/77-89 95-96 cor-rrr lungs decreased bs at bases abd soft,nt ext no edema CBC, BMP 07/23/17 08:00 07/23/17 08:00 Microbiology 07/19/17 11:50 Blood - Peripheral Venous Blood Culture - Preliminary NO GROWTH OBTAINED AFTER 96 HOURS, INCUBATION TO CONTINUE FOR 1 DAYS. 07/19/17 12:35 Blood - Peripheral Venous Blood Culture - Preliminary NO GROWTH OBTAINED AFTER 96 HOURS, INCUBATION TO CONTINUE FOR 1 DAYS. 07/19/17 21:00 Sputum - Endotrachea Suction/Ventilator Gram Stain - Final 07/19/17 21:00 Sputum - Endotrachea Suction/Ventilator Sputum Culture - Final Beta Hem Streptococcus Group G Providencia Stuartii Diphtheroid/Corynebacterium 07/20/17 20:00 Urine - Urine - Catheterized Urine Culture - Final NO GROWTH OBTAINED a/p fever- ?bronchitis-?pneumonia chronic respiratory failure continue cefepime suspect leukocytosis is secondary to steroids
[2017-07-23] MEDS: MIRTAZAPINE 15 MG TABLET (FP) PO SCH (21:10)
[2017-07-23] MEDS ORDERED: BUDESONIDE 0.5 MG/2 ML INH SUSP VIAL NEB ONE (21:41)
[2017-07-23] MEDS: MELATONIN 1 MG TABLET PO SCH (21:57)
[2017-07-24] MEDS: MELATONIN 1 MG TABLET PO SCH ×2 (00:01→22:24)
[2017-07-24] MEDS: CEFEPIME 1 GM in DEXTROSE 5%-WATER 100 ML IVPB SCH ×3 (02:01→17:39)
[2017-07-24] MEDS: ALBUTEROL SO4 2.5/IPRATROPIUM 0.5 INH SOL 3 ML VIAL.NEB. NEB SCH ×5 (02:28→22:10)
[2017-07-24] MEDS: LEVOTHYROXINE NA 50 MCG TABLET (FP) PO SCH (06:13)
[2017-07-24] MEDS: LORazepam 0.5 MG TABLET PO SCH ×3 (06:13→22:22)
[2017-07-24 09:05] LABS: MCH 29.2 pg (25.7-33.7); MCHC 32.7 g/dl (32.0-36.0); MEAN CELL VOLUME 89.1 fl (80-96); MEAN PLT VOLUME 8.3 fl (7.5-11.1); PLATELET COUNT 463 K/MM3 (134-434); RDW 15.7 % (11.6-15.6); WHITE BLOOD COUNT 21.8 K/mm3 (4.0-10.0)
[2017-07-24 09:32] LABS: ANION GAP 7 (8-16); CALCIUM 8.5 mg/dL (8.5-10.1); CO2 27 mmol/L (21-32); CREATININE 0.5 mg/dL (0.55-1.02); GLUCOSE,RANDOM 145 mg/dL (74-106); PHOSPHOROUS 2.4 mg/dL (2.5-4.9)
[2017-07-24 09:46] LABS: METAMYELOCYTE 2 % (0-2); MYELOCYTE 1 % (0-2); PLATELET ESTIMATE ADEQUATE (NORMAL); TOTAL CELLS COUNTED 100
[2017-07-24] MEDS ORDERED: PT OWN MED DRAWER 7, Y5N ONE ×4 (09:47→20:57)
[2017-07-24] MEDS ORDERED: CEFEPIME HCL 1 GM VIAL (RESTRICTED TO ID) ONE ×2 (09:48→17:28)
[2017-07-24] MEDS ORDERED: DEXTROSE 5%-WATER 100 ML IVPB ONE ×2 (09:48→17:29)
[2017-07-24] MEDS: BUDESONIDE 0.25 MG/2ML INH SUSP VIAL NEB SCH ×2 (10:18→22:12)
[2017-07-24] MEDS: ARTIFICIAL TEARS (POLYVINYL ALCOHOL 1.4%) OPTH DROPS OU SCH (10:44)
[2017-07-24] MEDS: PANTOPRAZOLE SODIUM 40 MG in SODIUM CHLORIDE 100 ML IVPB SCH (10:44)
[2017-07-24] MEDS: THIAMINE HCL 100 MG TABLET (FP) PO SCH (11:18)
[2017-07-24] MEDS: VALSARTAN 80 MG TABLET (UD) PO SCH (11:18)
[2017-07-24] MEDS: APIXABAN 5 MG TABLET PO SCH ×2 (11:18→22:23)
[2017-07-24] MEDS: VITAMIN B COMPLEX W/C COMBO TABLET (FP) PO SCH (11:18)
[2017-07-24] MEDS: LACTOBACILLUS ACIDOPHILUS 1 EACH TAB (FP) PO SCH ×2 (11:18→22:23)
[2017-07-24] MEDS: predniSONE 20 MG TABLET (UD) PO SCH ×2 (11:21→22:23)
[2017-07-24] MEDS: FOLIC ACID 1 MG TABLET (FP) PO SCH (11:22)
[2017-07-24] MEDS: CHOLESTYRAMINE/ASPARTAME 4 GM PACKET PO SCH ×2 (11:22→22:27)
--- NOTE | 2017-07-24 11:42 | PN ---
Progress Note, Physician History of Present Illness: Fevers improved, rate-control improved. - Current Medication List Current Medications: Active Medications Acetaminophen (Tylenol -) 650 mg PO Q4H PRN PRN Reason: FEVER OR PAIN Albuterol Sulfate (Ventolin 0.083% Nebulizer Soln -) 1 amp NEB Q4H PRN PRN Reason: SHORT OF BREATH/WHEEZING Albuterol/Ipratropium (Duoneb -) 1 amp NEB Q4HPO [facility] Last Admin: 07/24/17 10:18 Dose: 1 amp Apixaban (Eliquis -) 5 mg PO BID [facility] Last Admin: 07/24/17 11:18 Dose: 5 mg Artificial Tears (Artificial Tears) 1 drop OU DAILY [facility] Last Admin: 07/24/17 10:44 Dose: 1 drop Budesonide (Pulmicort 0.25 Mg Nebulizer -) 1 amp NEB BID [facility] Last Admin: 07/24/17 10:18 Dose: 1 amp Cholestyramine Resin (Questran Light Packet -) 4 gm PO BID [facility] Last Admin: 07/24/17 11:22 Dose: 4 gm Diltiazem HCl (Cardizem Cd -) 180 mg PO DAILY [facility] Last Admin: 07/24/17 11:18 Dose: 180 mg Folic Acid (Folic Acid -) 1 mg PO DAILY [facility] Last Admin: 07/24/17 11:22 Dose: 1 mg Pantoprazole Sodium 40 mg/ (Sodium Chloride) 100 mls @ 200 mls/hr IVPB DAILY [facility] Last Admin: 07/24/17 10:44 Dose: 200 mls/hr Cefepime HCl 1 gm/ Dextrose 100 mls @ 200 mls/hr IVPB Q8H-IV [facility] Last Admin: 07/24/17 09:56 Dose: 200 mls/hr Lactobacillus Acidophilus (Bacid -) 1 tab PO BID [facility] Last Admin: 07/24/17 11:18 Dose: 1 tab Levothyroxine Sodium (Synthroid -) 50 mcg PO DAILY@0700 [facility] Last Admin: 07/24/17 06:13 Dose: 50 mcg Lorazepam (Ativan -) 0.5 mg PO TID [facility] Last Admin: 07/24/17 06:13 Dose: 0.5 mg Melatonin (Melatonin) 3 mg PO HS [facility] Last Admin: 07/24/17 00:01 Dose: Not Given Mirtazapine (Remeron -) 15 mg PO HS [facility] Last Admin: 07/23/17 21:10 Dose: 15 mg Multivitamins (Total B With C -) 1 each PO DAILY [facility] Last Admin: 07/24/17 11:18 Dose: 1 each Oxycodone HCl (Roxicodone -) 5 mg PO Q4H PRN PRN Reason: PAIN Last Admin: 07/22/17 19:34 Dose: 5 mg Prednisone (Deltasone -) 40 mg PO BID [facility] Last Admin: 07/24/17 11:21 Dose: 40 mg Thiamine HCl (Vitamin B1 -) 100 mg PO DAILY [facility] Last Admin: 07/24/17 11:18 Dose: 100 mg Valsartan (Diovan -) 80 mg PO DAILY [facility] Last Admin: 07/24/17 11:18 Dose: 80 mg - Objective Vital Signs: Vital Signs Temperature 98.1 F 07/24/17 06:00 Pulse Rate 100 H 07/24/17 06:00 Respiratory Rate 19 07/24/17 10:19 Blood Pressure 162/74 07/24/17 06:00 O2 Sat by Pulse Oximetry (%) 95 07/23/17 09:00 Constitutional: Yes: No Distress, Calm, Thin Neck: Yes: Supple Cardiovascular: Yes: Regular Rate and Rhythm Respiratory: Yes: Regular, Diminished, Mechanically Ventilated, Rhonchi Gastrointestinal: Yes: Normal Bowel Sounds, Soft Edema: No Labs: CBC, BMP 07/24/17 08:50 07/24/17 08:50 INR, PTT INR 1.72 (0.82-1.09) H D 07/19/17 11:34 - ....Imaging Chest X-ray: Report Reviewed (NAD, elevated right hemidiaphragm) Problem List - Problems (1) Fever Code(s): R50.9 - FEVER, UNSPECIFIED Qualifiers: Fever type: due to other condition Qualified Code(s): R50.81 - Fever presenting with conditions classified elsewhere (2) Sepsis due to other specified Staphylococcus Code(s): A41.1 - SEPSIS DUE TO OTHER SPECIFIED STAPHYLOCOCCUS (3) A-fib Code(s): I48.91 - UNSPECIFIED ATRIAL FIBRILLATION Qualifiers: Atrial fibrillation type: paroxysmal Qualified Code(s): I48.0 - Paroxysmal atrial fibrillation (4) COPD (chronic obstructive pulmonary disease) Code(s): J44.9 - CHRONIC OBSTRUCTIVE PULMONARY DISEASE, UNSPECIFIED Qualifiers : COPD type: unspecified COPD Qualified Code(s): J44.9 - Chronic obstructive pulmonary disease, unspecified (5) Chronic respiratory failure with hypoxia Code(s): J96.11 - CHRONIC RESPIRATORY FAILURE WITH HYPOXIA (6) Diastolic heart failure Code(s): I50.30 - UNSPECIFIED DIASTOLIC (CONGESTIVE) HEART FAILURE Qualifiers : Heart failure chronicity: chronic Qualified Code(s): I50.32 - Chronic diastolic (congestive) heart failure (7) Gastroparesis Code(s): K31.84 - GASTROPARESIS (8) Hypothyroid Code(s): E03.9 - HYPOTHYROIDISM, UNSPECIFIED Qualifiers: Hypothyroidism type: unspecified Qualified Code(s): E03.9 - Hypothyroidism, unspecified (9) Leukocytosis Code(s): D72.829 - ELEVATED WHITE BLOOD CELL COUNT, UNSPECIFIED Qualifiers: Leukocytosis type: unspecified Qualified Code(s): D72.829 - Elevated white blood cell count, unspecified (10) Sepsis Code(s): A41.9 - SEPSIS, UNSPECIFIED ORGANISM Qualifiers: Sepsis type: sepsis due to unspecified organism Qualified Code(s): A41.9 - Sepsis, unspecified organism (11) Sinus tachycardia Code(s): R00.0 - TACHYCARDIA, UNSPECIFIED (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 Sepsis syndrome improving, r/o pneumonia with h/o multi-drug resistant organisms 2. COPD with Chronic Hypoxic Respiratory Failure post tracheostomy 3. Diastolic LV dysfunction with class I NYHA classification LV congestive heart failure, compensated/euvolemic 4. Paroxysmal Atrial Fibrillation/atrial tachycardia on NOAC, [id number] score of 4 5. HTN 6. Hypothyroidism 7. History of C. Difficile Colitis 8. MARLYN and Hyperkalemia resolved 9. Anemia post transfusion P: 1. Complete cefepime course, contact isolation 2. Inhaled bronchodilators, O2 to keep SpO2 >90%, prednisone taper with GI protection 3. Continue Cardizem CD 180 qd, Diovan 80 qd, Questran 4 bid 4. Continue Eliquis 5 bid for DVT and stroke thrombophylaxis given elevated risk score
--- NOTE | 2017-07-24 11:50 | PN ---
Progress Note (short form) - Note Progress Note: Awake on AC Mode of vent. She is currently eating lunch with her cuff defalted. She appears very comfortable. Ginette was previously maintained on a cuffless Tracheostomy not on ventilatory support. She has been vented for the past several weeks since her last admission. CXR : No acute pathology. Intake & Output 07/21/17 07/22/17 07/23/17 07/24/17 23:59 23:59 23:59 23:59 Intake Total 2390 1550 2200 100 Output Total 700 Balance 1690 1550 2200 100 Weight 89 lb 90 lb Last Vital Signs Temp Pulse Resp BP Pulse Ox 98.1 F 100 H 19 162/74 95 07/24/17 06:00 07/24/17 06:00 07/24/17 10:19 07/24/17 06:00 07/23/17 09:00 Active Medications Acetaminophen (Tylenol -) 650 mg PO Q4H PRN PRN Reason: FEVER OR PAIN Albuterol Sulfate (Ventolin 0.083% Nebulizer Soln -) 1 amp NEB Q4H PRN PRN Reason: SHORT OF BREATH/WHEEZING Albuterol/Ipratropium (Duoneb -) 1 amp NEB Q4HPO [facility] Last Admin: 07/24/17 10:18 Dose: 1 amp Apixaban (Eliquis -) 5 mg PO BID [facility] Last Admin: 07/24/17 11:18 Dose: 5 mg Artificial Tears (Artificial Tears) 1 drop OU DAILY [facility] Last Admin: 07/24/17 10:44 Dose: 1 drop Budesonide (Pulmicort 0.25 Mg Nebulizer -) 1 amp NEB BID [facility] Last Admin: 07/24/17 10:18 Dose: 1 amp Cholestyramine Resin (Questran Light Packet -) 4 gm PO BID [facility] Last Admin: 07/24/17 11:22 Dose: 4 gm Diltiazem HCl (Cardizem Cd -) 180 mg PO DAILY [facility] Last Admin: 07/24/17 11:18 Dose: 180 mg Folic Acid (Folic Acid -) 1 mg PO DAILY [facility] Last Admin: 07/24/17 11:22 Dose: 1 mg Pantoprazole Sodium 40 mg/ (Sodium Chloride) 100 mls @ 200 mls/hr IVPB DAILY [facility] Last Admin: 09/17/17 10:44 Dose: 200 mls/hr Cefepime HCl 1 gm/ Dextrose 100 mls @ 200 mls/hr IVPB Q8H-IV [facility] Last Admin: 07/24/17 09:56 Dose: 200 mls/hr Lactobacillus Acidophilus (Bacid -) 1 tab PO BID [facility] Last Admin: 07/24/17 11:18 Dose: 1 tab Levothyroxine Sodium (Synthroid -) 50 mcg PO DAILY@0700 [facility] Last Admin: 07/24/17 06:13 Dose: 50 mcg Lorazepam (Ativan -) 0.5 mg PO TID [facility] Last Admin: 07/24/17 06:13 Dose: 0.5 mg Melatonin (Melatonin) [address] [facility] Last Admin: 07/24/17 00:01 Dose: Not Given Mirtazapine (Remeron -) [address] [facility] Last Admin: 07/23/17 21:10 Dose: 15 mg Multivitamins (Total B With C -) 1 each PO DAILY [facility] Last Admin: 07/24/17 11:18 Dose: 1 each Oxycodone HCl (Roxicodone -) 5 mg PO Q4H PRN PRN Reason: PAIN Last Admin: 07/22/17 19:34 Dose: 5 mg Prednisone (Deltasone -) 40 mg PO BID [facility] Last Admin: 07/24/17 11:21 Dose: 40 mg Thiamine HCl (Vitamin B1 -) 100 mg PO DAILY [facility] Last Admin: 07/24/17 11:18 Dose: 100 mg Valsartan (Diovan -) 80 mg PO DAILY [facility] Last Admin: 07/24/17 11:18 Dose: 80 mg Constitutional: Yes: Awake, vented Eyes: Yes: WNL HENT: Yes: Intact Trach Neck: Yes: WNL Cardiovascular: Yes: WNL Respiratory: Yes: Vented, scattered rhonchi Gastrointestinal: Yes: WNL Genitourinary: Yes: Nelson Present Musculoskeletal: Yes: Muscle Weakness Extremities: Yes: WNL Edema: No Peripheral Pulses WNL: Yes Integumentary: Yes: WNL Wound/Incision: Yes: Clean/Dry Neurological: Yes: Other ...Motor Strength: LLE, RLE Psychiatric: Yes: Other Labs: Laboratory Results - last 24 hr 07/24/17 07/24/17 08:50 08:50 WBC 21.8 H RBC 4.00 Hgb 11.7 Hct 35.7 MCV 89.1 MCH 29.2 MCHC 32.7 RDW 15.7 H Plt Count 463 H MPV 8.3 Total Counted 100 Neutrophils % No Result Required. Neutrophils % (Manual) 86 H Band Neuts % (Manual) 7 Lymphocytes % No Result Required. Lymphocytes % (Manual) 3 L D Monocytes % (Manual) 1 L Myelocytes % (Man) 1 Platelet Estimate Adequate Sodium 138 Potassium 5.1 Chloride 104 Carbon Dioxide 27 Anion Gap 7 L BUN 26 H Creatinine 0.5 L Random Glucose 145 H Calcium 8.5 Phosphorus 2.4 L Magnesium 2.0 IMP: Severe Sepsis improving Acute Kidney Injury improving Acute on Chronic Hypoxic Vent Dependent Respiratory Failure Severe COPD LV Diastolic Dysfunction Paroxysmal Atrial Fibrilation HTN Hypothyroidism - ABX per ID - Same vent settings -> SBTs as tolerated - Steroid taper - inhaled bronchodilators - rate control - continue anticoagulation - DVT/GI prophylaxis - Please have Mary Perry evaluate in the AM Dr Tate
--- NOTE | 2017-07-24 13:37 | PN ---
Progress Note, Physician Chief Complaint: ASLEEP VENT TRACH DEPENDENT - Current Medication List Current Medications: Active Medications Acetaminophen (Tylenol -) 650 mg PO Q4H PRN PRN Reason: FEVER OR PAIN Albuterol Sulfate (Ventolin 0.083% Nebulizer Soln -) 1 amp NEB Q4H PRN PRN Reason: SHORT OF BREATH/WHEEZING Albuterol/Ipratropium (Duoneb -) 1 amp NEB Q4HPO [facility] Last Admin: 07/24/17 10:18 Dose: 1 amp Apixaban (Eliquis -) 5 mg PO BID [facility] Last Admin: 07/24/17 11:18 Dose: 5 mg Artificial Tears (Artificial Tears) 1 drop OU DAILY [facility] Last Admin: 07/24/17 10:44 Dose: 1 drop Budesonide (Pulmicort 0.25 Mg Nebulizer -) 1 amp NEB BID [facility] Last Admin: 07/24/17 10:18 Dose: 1 amp Cholestyramine Resin (Questran Light Packet -) 4 gm PO BID [facility] Last Admin: 07/24/17 11:22 Dose: 4 gm Diltiazem HCl (Cardizem Cd -) 180 mg PO DAILY [facility] Last Admin: 07/24/17 11:18 Dose: 180 mg Folic Acid (Folic Acid -) 1 mg PO DAILY [facility] Last Admin: 07/24/17 11:22 Dose: 1 mg Pantoprazole Sodium 40 mg/ (Sodium Chloride) 100 mls @ 200 mls/hr IVPB DAILY [facility] Last Admin: 07/24/17 10:44 Dose: 200 mls/hr Cefepime HCl 1 gm/ Dextrose 100 mls @ 200 mls/hr IVPB Q8H-IV [facility] Last Admin: 07/24/17 09:56 Dose: 200 mls/hr Lactobacillus Acidophilus (Bacid -) 1 tab PO BID [facility] Last Admin: 07/24/17 11:18 Dose: 1 tab Levothyroxine Sodium (Synthroid -) 50 mcg PO DAILY@0700 [facility] Last Admin: 07/24/17 06:13 Dose: 50 mcg Lorazepam (Ativan -) 0.5 mg PO TID [facility] Last Admin: 07/24/17 06:13 Dose: 0.5 mg Melatonin (Melatonin) 3 mg PO HS [facility] Last Admin: 07/24/17 00:01 Dose: Not Given Mirtazapine (Remeron -) 15 mg PO HS [facility] Last Admin: 07/23/17 21:10 Dose: 15 mg Multivitamins (Total B With C -) 1 each PO DAILY [facility] Last Admin: 07/24/17 11:18 Dose: 1 each Oxycodone HCl (Roxicodone -) 5 mg PO Q4H PRN PRN Reason: PAIN Last Admin: 07/22/17 19:34 Dose: 5 mg Prednisone (Deltasone -) 40 mg PO BID [facility] Last Admin: 07/24/17 11:21 Dose: 40 mg Thiamine HCl (Vitamin B1 -) 100 mg PO DAILY [facility] Last Admin: 07/24/17 11:18 Dose: 100 mg Valsartan (Diovan -) 80 mg PO DAILY [facility] Last Admin: 07/24/17 11:18 Dose: 80 mg - Objective Vital Signs: Vital Signs Temperature 98.1 F 07/24/17 06:00 Pulse Rate 100 H 07/24/17 06:00 Respiratory Rate 19 07/24/17 10:19 Blood Pressure 162/74 07/24/17 06:00 O2 Sat by Pulse Oximetry (%) 100 07/24/17 09:00 Constitutional: Yes: No Distress Eyes: Yes: WNL HENT: Yes: WNL Neck: Yes: WNL Cardiovascular: Yes: WNL Respiratory: Yes: Mechanically Ventilated Gastrointestinal: Yes: WNL Genitourinary: Yes: Incontinence Musculoskeletal: Yes: Muscle Weakness Extremities: Yes: WNL Edema: No Peripheral Pulses WNL: Yes Integumentary: Yes: Other Wound/Incision: Yes: Clean/Dry Neurological: Yes: Other ...Motor Strength: LLE, RLE Psychiatric: Yes: Other Labs: CBC, BMP 07/24/17 08:50 07/24/17 08:50 INR, PTT INR 1.72 (0.82-1.09) H D 07/19/17 11:34 Problem List - Problems (1) Acute renal failure Code(s): N17.9 - ACUTE KIDNEY FAILURE, UNSPECIFIED (2) Anemia Code(s): D64.9 - ANEMIA, UNSPECIFIED Qualifiers: Anemia type: unspecified type Qualified Code(s): D64.9 - Anemia, unspecified (3) Fever Code(s): R50.9 - FEVER, UNSPECIFIED Qualifiers: Fever type: due to other condition Qualified Code(s): R50.81 - Fever presenting with conditions classified elsewhere (4) Hyperkalemia Code(s): E87.5 - HYPERKALEMIA (5) Sepsis due to other specified Staphylococcus Code(s): A41.1 - SEPSIS DUE TO OTHER SPECIFIED STAPHYLOCOCCUS (6) A-fib Code(s): I48.91 - UNSPECIFIED ATRIAL FIBRILLATION Qualifiers: Atrial fibrillation type: paroxysmal Qualified Code(s): I48.0 - Paroxysmal atrial fibrillation (7) Acute and chronic respiratory failure with hypoxia Code(s): J96.21 - ACUTE AND CHRONIC RESPIRATORY FAILURE WITH HYPOXIA Assessment/Plan IV ABX PER ID TRACH DEPENDENT ON VENT LABS REVIEWED CHRONICALLY ILL WOMAN WITH MULTIPLE MEDICAL PROBLEMS WITH POOR QUALITY OF LIFE AND POOR OVERALL PROGNOSIS
[2017-07-24] MEDS ORDERED: BUDESONIDE 0.5 MG/2 ML INH SUSP VIAL NEB ONE (22:11)
[2017-07-24] MEDS: MIRTAZAPINE 15 MG TABLET (FP) PO SCH (22:27)
[2017-07-25] MEDS ORDERED: CEFEPIME HCL 1 GM VIAL (RESTRICTED TO ID) ONE ×3 (02:11→18:02)
[2017-07-25] MEDS ORDERED: DEXTROSE 5%-WATER 100 ML IVPB ONE ×3 (02:12→18:02)
[2017-07-25] MEDS: CEFEPIME 1 GM in DEXTROSE 5%-WATER 100 ML IVPB SCH ×3 (02:18→18:09)
[2017-07-25] MEDS: ALBUTEROL SO4 2.5/IPRATROPIUM 0.5 INH SOL 3 ML VIAL.NEB. NEB SCH ×6 (02:30→22:00)
[2017-07-25] MEDS: LEVOTHYROXINE NA 50 MCG TABLET (FP) PO SCH (06:14)
[2017-07-25] MEDS: LORazepam 0.5 MG TABLET PO SCH ×3 (06:14→21:29)
[2017-07-25 08:27] LABS: MCH 28.5 pg (25.7-33.7); MCHC 32.1 g/dl (32.0-36.0); MEAN CELL VOLUME 88.9 fl (80-96); MEAN PLT VOLUME 8.7 fl (7.5-11.1); PLATELET COUNT 464 K/MM3 (134-434); RDW 15.9 % (11.6-15.6)
[2017-07-25 08:49] LABS: ANION GAP 9 (8-16); CALCIUM 8.7 mg/dL (8.5-10.1); CO2 32 mmol/L (21-32); CREATININE 0.5 mg/dL (0.55-1.02); GLUCOSE,RANDOM 137 mg/dL (74-106)
[2017-07-25] MEDS: BUDESONIDE 0.25 MG/2ML INH SUSP VIAL NEB SCH ×2 (09:45→22:10)
[2017-07-25] MEDS ORDERED: PT OWN MED DRAWER 7, Y5N ONE ×2 (09:55→21:28)
[2017-07-25] MEDS: ARTIFICIAL TEARS (POLYVINYL ALCOHOL 1.4%) OPTH DROPS OU SCH (10:04)
[2017-07-25] MEDS: FOLIC ACID 1 MG TABLET (FP) PO SCH (10:04)
[2017-07-25] MEDS: LACTOBACILLUS ACIDOPHILUS 1 EACH TAB (FP) PO SCH ×2 (10:04→21:29)
[2017-07-25] MEDS: THIAMINE HCL 100 MG TABLET (FP) PO SCH (10:04)
[2017-07-25] MEDS: predniSONE 20 MG TABLET (UD) PO SCH (10:04)
[2017-07-25] MEDS: APIXABAN 5 MG TABLET PO SCH ×2 (10:05→21:29)
[2017-07-25] MEDS: CHOLESTYRAMINE/ASPARTAME 4 GM PACKET PO SCH ×3 (10:05→21:33)
[2017-07-25] MEDS: VITAMIN B COMPLEX W/C COMBO TABLET (FP) PO SCH (10:05)
[2017-07-25] MEDS: PANTOPRAZOLE SODIUM 40 MG in SODIUM CHLORIDE 100 ML IVPB SCH (10:05)
[2017-07-25] MEDS: VALSARTAN 80 MG TABLET (UD) PO SCH (10:17)
--- NOTE | 2017-07-25 10:32 | CONSULT ---
Admitting History and Physical - Primary Care Physician PCP: Cindy Cavanaugh - Admission History of Present Illness: Ms. Sarabia, a pleasant 67 year old female, vent dependent, came in through [facility] ER for worsening SOB, fever and tachycardia. Upon evaluation she was found to have leukocytosis, anemic, hypotensive in rapid afib. Per ID:Exacerbation COPD Chronic respiratory failure Tracheobronchitis v. pneumonia Sputum c/s mixed ( grp G strep, Providencia ) Pt last seen by me in June. She was on puree/thin liquid. Dys minced recommended and PMV evaluation. Pt was d/c'd to [facility]. PMV order noted but pt denied use of PMV at [facility]. She was soft to chew and thin liquid/ensure. At [facility] she has been on a soft diet and thin liquid. Cuff has been deflated meal time Pt seen durin breakfast, cuff deflated, TV set at 350,occasional weak brief cough, weak voice with poor respiratory support for speech. Breathing seemed labored, however RR at 24 and o2 sat reported as 98. PMD reported recent RLL infiltarate at [facility]. Pt pending trach change for leak. Pt reported to be frequently anxious, treated with Ativan tid, with periods of lethargy, responsive to medication. Prior to June admission, pt tolerated trach collar, with trach capped. Pt has been on ventilator. 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, Other (poor short term memory) Cardiovascular: Yes: AFIB, HTN Pulmonary: Yes: COPD, Previously Intubated, Other (RESPIRATORY FAILURE) Heme/Onc: Yes: Hypercoaguable State Infectious Disease: Yes: C-Diff Endocrine: Yes: Hypothyroidism - Past Surgical History Past Surgical History: Yes: Appendectomy - Smoking History Smoking history: Former smoker Have you smoked in the past 12 months: No If you are a former smoker, when did you quit?: 2008 - Alcohol/Substance Use Hx Alcohol Use: No History of Substance Use: reports: None - Social History ADL: Family Assistance History of Recent Travel: No History - Admission Reason For Visit: FEVER - Diagnostics X-ray: Report Reviewed Modified Barium Swallow: Report Reviewed (2014 (-) aspiration.) - General Mental Status: Awake and Alert, Able to Follow Commands, Anxious Attention: Intact Ability to Follow Directions: Good Head/Neck Control: Fair - Hearing Hearing: Functional Speech Evaluation - Communication Primary Language: ARMENIAN Communication: Yes: Simple Responses - Speech Characteristics Voice Loudness: Moderately Soft/Quiet, Excessive Variation Voice Pitch: Yes: Mildly Low Voice Phonatory-based Quality: Yes: Glottal Vargas (intermittent), Weak, Dysphonia (dysphonia with cough deflation) Speech Pattern: Impaired Articulation: Yes: Precise Rate of Speech: Intact Voice, Other Observations: Yes: Progressively Weak Voice, Inadequate Breath Support - Language/Auditory Comprehension Follows: Yes: 1 Stage Simple Commands Observation: Comprehends Conversational Speech: Yes - Swallow Evaluation/Bedside Assessment Current Nutritional Intake: Soft, Thin Liquids Oral Secretions: Yes: WFL Dentition: Yes: Adequate Facial Symmetry at Rest: Symmetrical Facial Symmetry on Retraction: Symmetrical Sensation: Normal Pucker Lips: Normal Smile: Normal Lingual Movement: Symmetric Lingual Speed of Movement: Normal Lingual Movement Strgth Against Opposition: Normal Lingual Movement Characteristics: Normal Velopharyngeal Movement: Normal Laryngeal Movement: Able to Palpate Chewing: WFL Oral Prep Time: WFL A-P Transit: WFL Pocketing: None Timing of Swallow: Delayed Coughing/Throat Clear: Yes (rare brief cough ) Recommendations - Speech Evaluation, Impression/Plan Impression: Pt with admission with SOB.Mucuos plug. Recent RLL infiltarate at [facility], per PMD.ID: tracheobronchitis vs PNA. Anxiety managed with Ativan.Previously on trach collar/capped. Has been on ventilator since last admission. Last MBS 2014. - Disposition Discharge to: [facility] Facility - Dysphagia Impressions/Plan Dysphagia Impressions: Ongoing Evaluation *Silent aspiration: cannot be R/O at bedside Recommendations: Modified Barium Swallow, Passy [place] Valve
--- NOTE | 2017-07-25 11:12 | CONSULT ---
Passy-Tamie Valve Eval - Assessment Prior to PMV Placement Patient and/or family educated re PMV: Yes Mental Status: Awake, Alert, Attempting to Communicate O2 Sat by Pulse Oximetry (%): 95 Secretions: Small Amount Patient on Ventilator: Yes Suctioned: Yes Trach Type: Portex Trach Size: 7.0 Inner Cannula Removed: No Cuff Status: Inflated (known leak. Pending trach change) Passy-Tamie Valve in Place - Speech Characteristics Voice Loudness: Mildly Soft/Quiet, Excessive Variation Voice Pitch: Mildly Low Voice Phonatory-based Quality: Glottal Vargas, Weak, Dysphonia Speech Pattern: Impaired Speech Clarity: < 50% Nasal Resonance: Normal Articulation: Precise Voice, Other Observations: Inadequate Breath Support - Assessment with PMV in Place O2 Sat by Pulse Oximetry (%): 95 Change in Mental Status with PMV in Place: No Able to Manage Secretions: Yes - Recommendations Recommendations: PMV as tolerated (to improve upper airway function and sensation,improve communication and normalize system and to expedite weaning from ventilator.), PMV with meals, Remove PMV while sleeping, Monitor Pulse Ox PMV on (Cuff deflation mealtime, with PMV, and increase tidal volume x 50-100, based on comfort/tolerance)
--- NOTE | 2017-07-25 11:29 | PN ---
Progress Note, Physician History of Present Illness: Fevers resolved, rate-control improved, denies dyspnea, tolerated PMV. - Current Medication List Current Medications: Active Medications Acetaminophen (Tylenol -) 650 mg PO Q4H PRN PRN Reason: FEVER OR PAIN Albuterol Sulfate (Ventolin 0.083% Nebulizer Soln -) 1 amp NEB Q4H PRN PRN Reason: SHORT OF BREATH/WHEEZING Albuterol/Ipratropium (Duoneb -) 1 amp NEB Q4HPO [facility] Last Admin: 07/25/17 09:45 Dose: 1 amp Apixaban (Eliquis -) 5 mg PO BID [facility] Last Admin: 07/25/17 10:05 Dose: 5 mg Artificial Tears (Artificial Tears) 1 drop OU DAILY [facility] Last Admin: 07/25/17 10:04 Dose: 1 drop Budesonide (Pulmicort 0.25 Mg Nebulizer -) 1 amp NEB BID [facility] Last Admin: 07/25/17 09:45 Dose: 1 amp Cholestyramine Resin (Questran Light Packet -) 4 gm PO BID [facility] Last Admin: 07/25/17 10:05 Dose: 4 gm Diltiazem HCl (Cardizem Cd -) 180 mg PO DAILY [facility] Last Admin: 07/25/17 10:04 Dose: 180 mg Folic Acid (Folic Acid -) 1 mg PO DAILY [facility] Last Admin: 07/25/17 10:04 Dose: 1 mg Pantoprazole Sodium 40 mg/ (Sodium Chloride) 100 mls @ 200 mls/hr IVPB DAILY [facility] Last Admin: 07/25/17 10:05 Dose: 200 mls/hr Cefepime HCl 1 gm/ Dextrose 100 mls @ 200 mls/hr IVPB Q8H-IV [facility] Last Admin: 07/25/17 10:45 Dose: 200 mls/hr Lactobacillus Acidophilus (Bacid -) 1 tab PO BID [facility] Last Admin: 07/25/17 10:04 Dose: 1 tab Levothyroxine Sodium (Synthroid -) 50 mcg PO DAILY@0700 [facility] Last Admin: 07/25/17 06:14 Dose: 50 mcg Lorazepam (Ativan -) 0.5 mg PO TID [facility] Last Admin: 07/25/17 06:14 Dose: 0.5 mg Melatonin (Melatonin) 3 mg PO HS [facility] Last Admin: 07/24/17 22:24 Dose: 3 mg Mirtazapine (Remeron -) 15 mg PO HS [facility] Last Admin: 07/24/17 22:27 Dose: 15 mg Multivitamins (Total B With C -) 1 each PO DAILY [facility] Last Admin: 07/25/17 10:05 Dose: 1 each Prednisone (Deltasone -) 40 mg PO DAILY [facility] Last Admin: 07/25/17 10:04 Dose: 40 mg Thiamine HCl (Vitamin B1 -) 100 mg PO DAILY [facility] Last Admin: 07/25/17 10:04 Dose: 100 mg Valsartan (Diovan -) 80 mg PO DAILY [facility] Last Admin: 07/25/17 10:17 Dose: 80 mg - Objective Vital Signs: Vital Signs Temperature 98.1 F 07/25/17 05:00 Pulse Rate 84 07/25/17 09:45 Respiratory Rate 12 07/25/17 11:20 Blood Pressure 155/79 07/25/17 05:00 O2 Sat by Pulse Oximetry (%) 95 07/25/17 11:20 Constitutional: Yes: No Distress, Calm Neck: Yes: Supple Cardiovascular: Yes: Regular Rate and Rhythm Respiratory: Yes: Diminished, Mechanically Ventilated, Rhonchi Gastrointestinal: Yes: Normal Bowel Sounds, Soft Edema: No Labs: CBC, BMP 07/25/17 07:30 07/25/17 07:30 INR, PTT INR 1.72 (0.82-1.09) H D 07/19/17 11:34 Problem List - Problems (1) Sepsis due to other specified Staphylococcus Code(s): A41.1 - SEPSIS DUE TO OTHER SPECIFIED STAPHYLOCOCCUS (2) A-fib Code(s): I48.91 - UNSPECIFIED ATRIAL FIBRILLATION Qualifiers: Atrial fibrillation type: paroxysmal Qualified Code(s): I48.0 - Paroxysmal atrial fibrillation (3) COPD (chronic obstructive pulmonary disease) Code(s): J44.9 - CHRONIC OBSTRUCTIVE PULMONARY DISEASE, UNSPECIFIED Qualifiers : COPD type: unspecified COPD Qualified Code(s): J44.9 - Chronic obstructive pulmonary disease, unspecified (4) Chronic respiratory failure with hypoxia Code(s): J96.11 - CHRONIC RESPIRATORY FAILURE WITH HYPOXIA (5) Diastolic heart failure Code(s): I50.30 - UNSPECIFIED DIASTOLIC (CONGESTIVE) HEART FAILURE Qualifiers : Heart failure chronicity: chronic Qualified Code(s): I50.32 - Chronic diastolic (congestive) heart failure (6) Gastroparesis Code(s): K31.84 - GASTROPARESIS (7) Hypothyroid Code(s): E03.9 - HYPOTHYROIDISM, UNSPECIFIED Qualifiers: Hypothyroidism type: unspecified Qualified Code(s): E03.9 - Hypothyroidism, unspecified (8) Leukocytosis Code(s): D72.829 - ELEVATED WHITE BLOOD CELL COUNT, UNSPECIFIED Qualifiers: Leukocytosis type: unspecified Qualified Code(s): D72.829 - Elevated white blood cell count, unspecified (9) Sepsis Code(s): A41.9 - SEPSIS, UNSPECIFIED ORGANISM Qualifiers: Sepsis type: sepsis due to unspecified organism Qualified Code(s): A41.9 - Sepsis, unspecified organism (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 Sepsis syndrome improving, r/o pneumonia with h/o multi-drug resistant organisms 2. COPD with Chronic Hypoxic Respiratory Failure post tracheostomy 3. Diastolic LV dysfunction with class I NYHA classification LV congestive heart failure, compensated/euvolemic 4. Paroxysmal Atrial Fibrillation/atrial tachycardia on NOAC, [id number] score of 4 5. HTN, BP not at goal 6. Hypothyroidism 7. History of C. Difficile Colitis 8. MARLYN and Hyperkalemia resolved 9. Anemia post transfusion P: 1. Complete cefepime course, contact isolation 2. Inhaled bronchodilators, O2 to keep SpO2 >90%, prednisone taper with GI protection, PMV 3. Continue Cardizem CD 180 qd, increase Diovan 160 qd, Questran 4 bid 4. Continue Eliquis 5 bid for DVT and stroke thrombophylaxis given elevated risk score
[2017-07-25] MEDS ORDERED: VALSARTAN 160 MG TABLET (UD) PO SCH (11:44)
--- NOTE | 2017-07-25 12:57 | PN ---
Progress Note (short form) - Note Progress Note: PULMONARY Vented on volume assist control. Trach changed by ENT, noted to have cuff leak on old trach. No fevers recorded. Last Vital Signs Temp Pulse Resp BP Pulse Ox 98.1 F 84 12 155/79 95 07/25/17 05:00 07/25/17 09:45 07/25/17 11:20 07/25/17 05:00 07/25/17 11:20 Gen: vented, awake Heart: RRR Lung: scattered rhonchi Abd: soft, nontender Ext: no edema CBC, BMP 07/25/17 07:30 07/25/17 07:30 Active Medications Acetaminophen (Tylenol -) 650 mg PO Q4H PRN PRN Reason: FEVER OR PAIN Albuterol Sulfate (Ventolin 0.083% Nebulizer Soln -) 1 amp NEB Q4H PRN PRN Reason: SHORT OF BREATH/WHEEZING Albuterol/Ipratropium (Duoneb -) 1 amp NEB Q4HPO [facility] Last Admin: 07/25/17 09:45 Dose: 1 amp Apixaban (Eliquis -) 5 mg PO BID [facility] Last Admin: 07/25/17 10:05 Dose: 5 mg Artificial Tears (Artificial Tears) 1 drop OU DAILY [facility] Last Admin: 07/25/17 10:04 Dose: 1 drop Budesonide (Pulmicort 0.25 Mg Nebulizer -) 1 amp NEB BID [facility] Last Admin: 07/25/17 09:45 Dose: 1 amp Cholestyramine Resin (Questran Light Packet -) 4 gm PO BID [facility] Last Admin: 07/25/17 10:05 Dose: 4 gm Diltiazem HCl (Cardizem Cd -) 180 mg PO DAILY [facility] Last Admin: 07/25/17 10:04 Dose: 180 mg Folic Acid (Folic Acid -) 1 mg PO DAILY [facility] Last Admin: 07/25/17 10:04 Dose: 1 mg Pantoprazole Sodium 40 mg/ (Sodium Chloride) 100 mls @ 200 mls/hr IVPB DAILY [facility] Last Admin: 07/25/17 10:05 Dose: 200 mls/hr Cefepime HCl 1 gm/ Dextrose 100 mls @ 200 mls/hr IVPB Q8H-IV [facility] Last Admin: 07/25/17 10:45 Dose: 200 mls/hr Lactobacillus Acidophilus (Bacid -) 1 tab PO BID [facility] Last Admin: 07/25/17 10:04 Dose: 1 tab Levothyroxine Sodium (Synthroid -) 50 mcg PO DAILY@0700 [facility] Last Admin: 07/25/17 06:14 Dose: 50 mcg Lorazepam (Ativan -) 0.5 mg PO TID [facility] Last Admin: 07/25/17 06:14 Dose: 0.5 mg Melatonin (Melatonin) 3 mg PO HS [facility] Last Admin: 07/24/17 22:24 Dose: 3 mg Mirtazapine (Remeron -) 15 mg PO HS [facility] Last Admin: 07/24/17 22:27 Dose: 15 mg Multivitamins (Total B With C -) 1 each PO DAILY [facility] Last Admin: 07/25/17 10:05 Dose: 1 each Prednisone (Deltasone -) 40 mg PO DAILY [facility] Last Admin: 07/25/17 10:04 Dose: 40 mg Thiamine HCl (Vitamin B1 -) 100 mg PO DAILY [facility] Last Admin: 07/25/17 10:04 Dose: 100 mg Valsartan (Diovan -) 160 mg PO DAILY [facility] A/P r/o Pneumonia Severe Sepsis improved Acute Kidney Injury improving Acute on Chronic Hypoxic Vent Dependent Respiratory Failure resolving Severe COPD LV Diastolic Dysfunction Paroxysmal Atrial Fibrilation HTN Hypothyroidism - continue antibiotics per ID - monitor urine output, creatinine - taper prednisone - inhaled bronchodilators - O2 to keep SpO2 >90% - rate control - continue anticoagulation - PO as tolerated - DVT/GI prophylaxis
--- NOTE | 2017-07-25 13:07 | CON.ENT ---
Consult Consult Specialty:: ENT Referred by:: Dr Robb Reason for Consultation:: Tracheostomy cuff leak - History of Present Illness Chief Complaint: PT noted to have airleak while on ventilator History of Present Illness: 67 yo female with multiple medical problems, ventilator dependent, s/p tracheostomy 2 years ago, noted to have a cuff leak over night. Pt was able to maintain ventilator support .Asked to change her trach. 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, Other (poor short term memory) Cardio/Vascular: Yes: AFIB, HTN Pulmonary: Yes: COPD, Previously Intubated, Other (RESPIRATORY FAILURE) Infectious Disease: Yes: C-Diff Endocrine: Yes: Hypothyroidism - Past Surgical History Past Surgical History: Yes: Appendectomy Additional Surgical History: Tracheostomy - Alcohol/Substance Use Hx Alcohol Use: No History of Substance Use: reports: None - Smoking History Smoking history: Former smoker Have you smoked in the past 12 months: No If you are a former smoker, when did you quit?: 2008 - Social History Usual Living Arrangement: Correction ADL: Family Assistance History of Recent Travel: No Home Medications - Allergies Allergies/Adverse Reactions: Allergies Allergy/AdvReac Type Severity Reaction Status Date / Time peas Allergy Severe Difficulty Verified 07/19/17 12:10 Breathing Iodinated Contrast- Oral and Allergy Verified 07/19/17 12:10 IV Dye [Iodinated Contrast Media - IV Dye] iodine Allergy Verified 07/19/17 12:10 - Home Medications Home Medications: Ambulatory Orders Albuterol 2.5/Ipratropium 0.5 [Duoneb -] 1 neb NEB TID 02/01/16 Aspirin [Ecotrin] 81 mg PO DAILY 02/01/16 Folic Acid 1 mg PO DAILY 02/01/16 Lactobacillus Acidophilus [Bacid -] 1 each PO BID 02/01/16 Levothyroxine [Synthroid -] 50 mcg PO DAILY 02/01/16 Lorazepam 0.5 mg PO TID PRN 02/01/16 Melatonin 3 mg PO HS 02/01/16 Mirtazapine 15 mg PO HS 02/01/16 Peg 400/Hypromellose/Glycerin [Artificial Tears Drops] 1 drop OU DAILY 02/01/16 Thiamine HCl [Vitamin B1 -] 100 mg PO DAILY 02/01/16 Vitamin B Complex Vit C No.3 [B Complex with Vitamin C] 1 each PO DAILY Ranitidine [Zantac -] 150 mg PO DAILY tablet 02/09/16 Acetylcysteine Po/INH 20% [Mucomyst 20 Oral / INH Use Only*] 200 mg NEB QIDR vial 06/14/17 Budesonide [Pulmicort 0.25 mg Nebulizer -] 1 amp NEB BID amp 06/14/17 Cholestyramine/Aspartame [Questran Light Packet -] 4 gm PO BID packet 06/14/17 Acetaminophen [Tylenol .Regular Strength -] 650 mg PO Q4H PRN #0 tablet Albuterol 0.083% Nebulizer Carina [Ventolin 0.083% Nebulizer Soln -] 1 amp NEB Q4H PRN #180 amp 06/23/17 Apixaban [Eliquis -] 5 mg PO BID tablet 06/23/17 Budesonide [Pulmicort 0.25 mg Nebulizer -] 1 amp NEB BID amp 06/23/17 Cholestyramine/Aspartame [Questran Light Packet -] 4 gm PO BID packet 06/23/17 Diltiazem Cd [Cardizem Cd -] 300 mg PO DAILY #30 cap 06/23/17 Lorazepam [Ativan] 0.5 mg PO Q8H PRN #0 tablet MDD 3 06/23/17 Melatonin 5 mg PO HS tab 06/23/17 Oxycodone HCl [Roxicodone -] 5 mg PO Q4H PRN #0 tablet MDD 6 06/23/17 Prednisone [Deltasone -] 40 mg PO BID #90 tablet 06/23/17 Valsartan [Diovan] 320 mg PO DAILY tablet 06/23/17 Levofloxacin [Levaquin] 500 mg PO DAILY 07/19/17 Review of Systems - Review of Systems Constitutional: reports: No Symptoms HENT: reports: Other (vent dependent) Neck: reports: No Symptoms Physical Exam-ENT Vital Signs: Vital Signs Temperature 98.1 F 07/25/17 05:00 Pulse Rate 84 07/25/17 09:45 Respiratory Rate 12 07/25/17 11:20 Blood Pressure 155/79 07/25/17 05:00 O2 Sat by Pulse Oximetry (%) 95 09/18/17 11:20 Constitutional: Yes: No Distress Head: Yes: WNL Face: Yes: WNL Nose: Yes: WNL Oral/Pharynx: Yes: Other (dry) Outer Ear: Yes: WNL Neck: Yes: Other (tracheostomy tube in place, stoma patent, no infection) Problem List - Problems (1) Chronic respiratory failure with hypoxia Assessment/Plan: Pt currently ventilator dependent, was on trach collar in recent past, with a cuff leak. New #7 tracheostomy tube replace with help of RN without difficulty. No leak noted, no ventilator issues Code(s): J96.11 - CHRONIC RESPIRATORY FAILURE WITH HYPOXIA
--- NOTE | 2017-07-25 13:14 | PN ---
Progress Note, Physician Chief Complaint: patient awake alert seen by ENT for cuff leak - Current Medication List Current Medications: Active Medications Acetaminophen (Tylenol -) 650 mg PO Q4H PRN PRN Reason: FEVER OR PAIN Albuterol Sulfate (Ventolin 0.083% Nebulizer Soln -) 1 amp NEB Q4H PRN PRN Reason: SHORT OF BREATH/WHEEZING Albuterol/Ipratropium (Duoneb -) 1 amp NEB Q4HPO [facility] Last Admin: 07/25/17 09:45 Dose: 1 amp Apixaban (Eliquis -) 5 mg PO BID [facility] Last Admin: 07/25/17 10:05 Dose: 5 mg Artificial Tears (Artificial Tears) 1 drop OU DAILY [facility] Last Admin: 07/25/17 10:04 Dose: 1 drop Budesonide (Pulmicort 0.25 Mg Nebulizer -) 1 amp NEB BID [facility] Last Admin: 07/25/17 09:45 Dose: 1 amp Cholestyramine Resin (Questran Light Packet -) 4 gm PO BID [facility] Last Admin: 07/25/17 10:05 Dose: 4 gm Diltiazem HCl (Cardizem Cd -) 180 mg PO DAILY [facility] Last Admin: 07/25/17 10:04 Dose: 180 mg Folic Acid (Folic Acid -) 1 mg PO DAILY [facility] Last Admin: 07/25/17 10:04 Dose: 1 mg Pantoprazole Sodium 40 mg/ (Sodium Chloride) 100 mls @ 200 mls/hr IVPB DAILY [facility] Last Admin: 07/25/17 10:05 Dose: 200 mls/hr Cefepime HCl 1 gm/ Dextrose 100 mls @ 200 mls/hr IVPB Q8H-IV [facility] Last Admin: 07/25/17 10:45 Dose: 200 mls/hr Lactobacillus Acidophilus (Bacid -) 1 tab PO BID [facility] Last Admin: 07/25/17 10:04 Dose: 1 tab Levothyroxine Sodium (Synthroid -) 50 mcg PO DAILY@0700 [facility] Last Admin: 07/25/17 06:14 Dose: 50 mcg Lorazepam (Ativan -) 0.5 mg PO TID [facility] Last Admin: 07/25/17 06:14 Dose: 0.5 mg Melatonin (Melatonin) 3 mg PO HS [facility] Last Admin: 07/24/17 22:24 Dose: 3 mg Mirtazapine (Remeron -) 15 mg PO HS [facility] Last Admin: 07/24/17 22:27 Dose: 15 mg Multivitamins (Total B With C -) 1 each PO DAILY [facility] Last Admin: 07/25/17 10:05 Dose: 1 each Prednisone (Deltasone -) 40 mg PO DAILY [facility] Last Admin: 07/25/17 10:04 Dose: 40 mg Thiamine HCl (Vitamin B1 -) 100 mg PO DAILY [facility] Last Admin: 07/25/17 10:04 Dose: 100 mg Valsartan (Diovan -) 160 mg PO DAILY [facility] - Objective Vital Signs: Vital Signs Temperature 98.1 F 07/25/17 05:00 Pulse Rate 84 07/25/17 09:45 Respiratory Rate 12 07/25/17 11:20 Blood Pressure 155/79 07/25/17 05:00 O2 Sat by Pulse Oximetry (%) 95 07/25/17 11:20 Constitutional: Yes: Calm, Thin Cardiovascular: Yes: Regular Rate and Rhythm, S1, S2 Respiratory: Yes: Diminished, Mechanically Ventilated Gastrointestinal: Yes: Normal Bowel Sounds, Soft Edema: No Neurological: Yes: Alert, Oriented Labs: CBC, BMP 07/25/17 07:30 07/25/17 07:30 INR, PTT INR 1.72 (0.82-1.09) H D 07/19/17 11:34 Problem List - Problems (1) Sepsis Assessment/Plan: iv abx per ID-cefepime possible pulm source given trach secertion contact isolation wbc high sec to steroids to get MBS to r/o aspiration Code(s): A41.9 - SEPSIS, UNSPECIFIED ORGANISM Qualifiers: Sepsis type: sepsis due to unspecified organism Qualified Code(s): A41.9 - Sepsis, unspecified organism (2) A-fib Assessment/Plan: cardizem and eliquis HR better controlled Code(s): I48.91 - UNSPECIFIED ATRIAL FIBRILLATION Qualifiers: Atrial fibrillation type: paroxysmal Qualified Code(s): I48.0 - Paroxysmal atrial fibrillation (3) Hypothyroid Assessment/Plan: tsh ok synthroid Code(s): E03.9 - HYPOTHYROIDISM, UNSPECIFIED Qualifiers: Hypothyroidism type: unspecified Qualified Code(s): E03.9 - Hypothyroidism, unspecified (4) Acute and chronic respiratory failure with hypoxia Assessment/Plan: on vent now on resp( med/surg) floor bronchodilators Code(s): J96.21 - ACUTE AND CHRONIC RESPIRATORY FAILURE WITH HYPOXIA (5) Anemia Assessment/Plan: heme on board check stool iron agnes got 2 units prbc Code(s): D64.9 - ANEMIA, UNSPECIFIED Qualifiers: Anemia type: unspecified type Qualified Code(s): D64.9 - Anemia, unspecified (6) Diastolic heart failure Assessment/Plan: monitor K on diovan- today labs K 4.7 lopresor and questran Code(s): I50.30 - UNSPECIFIED DIASTOLIC (CONGESTIVE) HEART FAILURE Qualifiers : Heart failure chronicity: chronic Qualified Code(s): I50.32 - Chronic diastolic (congestive) heart failure
--- NOTE | 2017-07-25 14:19 | PN ---
Progress Note (short form) - Note Progress Note: doing well no complaints on po prednisone-taper in progress trach changed today trach to vent Vital Signs Period Temp Pulse Resp BP Sys/Parra Pulse Ox Last 24 Hr 98.0 F-98.9 F 77-102 11-23 140-167/73-99 95-96 cor-rrr llungs decreased bs at bases abd soft,nt ext no edema CBC, BMP 07/25/17 07:30 07/25/17 07:30 Microbiology 07/19/17 11:50 Blood - Peripheral Venous Blood Culture - Final NO GROWTH AFTER 5 DAYS INCUBATION 07/19/17 12:35 Blood - Peripheral Venous Blood Culture - Final NO GROWTH AFTER 5 DAYS INCUBATION 07/19/17 21:00 Sputum - Endotrachea Suction/Ventilator Gram Stain - Final 07/19/17 21:00 Sputum - Endotrachea Suction/Ventilator Sputum Culture - Final Beta Hem Streptococcus Group G Providencia Stuartii Diphtheroid/Corynebacterium 07/20/17 20:00 Urine - Urine - Catheterized Urine Culture - Final NO GROWTH OBTAINED a/p fever- ?bronchitis-?pneumonia chronic respiratory failure continue cefepime- day #6 of 7 antiibotics suspect leukocytosis is secondary to steroids
--- NOTE | 2017-07-25 16:45 | PN ---
Progress Note (short form) - Note Progress Note: Renal follow up for MARLYN and Hyperkalemia PT seen and examined at the bedside awake and alert no acute complaints no sob, chest pain, abd pain tolerating oral diet good urine output Vital Signs Temperature 98.6 F 07/25/17 13:22 Pulse Rate 102 H 07/25/17 13:22 Respiratory Rate 19 07/25/17 14:01 Blood Pressure 149/77 07/25/17 13:22 O2 Sat by Pulse Oximetry (%) 95 07/25/17 11:20 Intake & Output 07/22/17 07/23/17 07/24/17 07/25/17 23:59 23:59 23:59 23:59 Intake Total 1550 2200 540 1041 Balance 1550 2200 540 1041 Weight 90 lb Gen: NAD, awake and alert CVS: RRR Lungs: Dec BS b/l lung younger Abd soft NT/ND Ext: no edema CBC, BMP 07/25/17 07:30 07/25/17 07:30 Current Medications Acetaminophen (Tylenol -) 650 mg PO Q4H PRN PRN Reason: FEVER OR PAIN Albuterol Sulfate (Ventolin 0.083% Nebulizer Soln -) 1 amp NEB Q4H PRN PRN Reason: SHORT OF BREATH/WHEEZING Albuterol/Ipratropium (Duoneb -) 1 amp NEB Q4HPO [facility] Last Admin: 07/25/17 13:57 Dose: 1 amp Apixaban (Eliquis -) 5 mg PO BID [facility] Last Admin: 07/25/17 10:05 Dose: 5 mg Artificial Tears (Artificial Tears) 1 drop OU DAILY [facility] Last Admin: 07/25/17 10:04 Dose: 1 drop Budesonide (Pulmicort 0.25 Mg Nebulizer -) 1 amp NEB BID [facility] Last Admin: 07/25/17 09:45 Dose: 1 amp Cholestyramine Resin (Questran Light Packet -) 4 gm PO BID [facility] Last Admin: 07/25/17 10:05 Dose: 4 gm Diltiazem HCl (Cardizem Cd -) 180 mg PO DAILY [facility] Last Admin: 07/25/17 10:04 Dose: 180 mg Folic Acid (Folic Acid -) 1 mg PO DAILY [facility] Last Admin: 07/25/17 10:04 Dose: 1 mg Pantoprazole Sodium 40 mg/ (Sodium Chloride) 100 mls @ 200 mls/hr IVPB DAILY [facility] Last Admin: 07/25/17 10:05 Dose: 200 mls/hr Cefepime HCl 1 gm/ Dextrose 100 mls @ 200 mls/hr IVPB Q8H-IV [facility] Last Admin: 07/25/17 10:45 Dose: 200 mls/hr Lactobacillus Acidophilus (Bacid -) 1 tab PO BID [facility] Last Admin: 07/25/17 10:04 Dose: 1 tab Levothyroxine Sodium (Synthroid -) 50 mcg PO DAILY@0700 [facility] Last Admin: 07/25/17 06:14 Dose: 50 mcg Lorazepam (Ativan -) 0.5 mg PO TID [facility] Last Admin: 07/25/17 15:05 Dose: 0.5 mg Melatonin (Melatonin) 3 mg PO HS [facility] Last Admin: 07/24/17 22:24 Dose: 3 mg Mirtazapine (Remeron -) 15 mg PO HS [facility] Last Admin: 07/24/17 22:27 Dose: 15 mg Multivitamins (Total B With C -) 1 each PO DAILY [facility] Last Admin: 07/25/17 10:05 Dose: 1 each Prednisone (Deltasone -) 40 mg PO DAILY [facility] Last Admin: 07/25/17 10:04 Dose: 40 mg Thiamine HCl (Vitamin B1 -) 100 mg PO DAILY [facility] Last Admin: 07/25/17 10:04 Dose: 100 mg Valsartan (Diovan -) 160 mg PO DAILY [facility] A/P 67 year old woman with PMhx of COPD with respiratory failure now chroniclly on the vent, Anemia, Afib, COPD, Gastroparesis, Hypothrydism who presented with Fever and SOB and found to have Sepsis syndrome and suspected PNA with MARLYN and Hyperkalemia. #Acute Renal Failure with hyperkalemia secondary to renal hypoprofusion in setting of Sepsis/ARB Renal function remains stable on ARB at half dose, can resume full dose if BP remains above goal of 140/90 Trend BUN/Cr daily #Sepsis/Resp Failure/PNA continue Abx as per ID vent support Pulmonary and Id follow up #Anemia s/p PRBC transfusion Fernando Douglas DO Problem List - Problems (1) Fever Code(s): R50.9 - FEVER, UNSPECIFIED Qualifiers: Fever type: due to other condition Qualified Code(s): R50.81 - Fever presenting with conditions classified elsewhere (2) A-fib Code(s): I48.91 - UNSPECIFIED ATRIAL FIBRILLATION Qualifiers: Atrial fibrillation type: paroxysmal Qualified Code(s): I48.0 - Paroxysmal atrial fibrillation (3) Acute and chronic respiratory failure with hypoxia Code(s): J96.21 - ACUTE AND CHRONIC RESPIRATORY FAILURE WITH HYPOXIA (4) Dehydration Code(s): E86.0 - DEHYDRATION (5) Hyperkalemia Code(s): E87.5 - HYPERKALEMIA (6) Acute renal failure Code(s): N17.9 - ACUTE KIDNEY FAILURE, UNSPECIFIED
[2017-07-25] MEDS ORDERED: BUDESONIDE 0.5 MG/2 ML INH SUSP VIAL NEB ONE (21:24)
[2017-07-25] MEDS: MIRTAZAPINE 15 MG TABLET (FP) PO SCH ×2 (21:29→21:33)
[2017-07-25] MEDS: MELATONIN 1 MG TABLET PO SCH (21:29)
[2017-07-25] MEDS ORDERED: oxyCODONE HCL 5 MG TABLET PO PRN (21:39)
[2017-07-26] MEDS: ALBUTEROL SO4 2.5/IPRATROPIUM 0.5 INH SOL 3 ML VIAL.NEB. NEB SCH ×6 (02:00→22:00)
[2017-07-26] MEDS ORDERED: CEFEPIME HCL 1 GM VIAL (RESTRICTED TO ID) ONE ×4 (02:55→17:14)
[2017-07-26] MEDS ORDERED: DEXTROSE 5%-WATER 100 ML IVPB ONE ×3 (02:55→17:15)
[2017-07-26] MEDS: CEFEPIME 1 GM in DEXTROSE 5%-WATER 100 ML IVPB SCH ×3 (02:59→17:26)
[2017-07-26] MEDS: LEVOTHYROXINE NA 50 MCG TABLET (FP) PO SCH (06:43)
[2017-07-26] MEDS: LORazepam 0.5 MG TABLET PO SCH ×3 (06:43→21:51)
[2017-07-26 09:49] LABS: ANION GAP 10 (8-16); CALCIUM 8.1 mg/dL (8.5-10.1); CO2 28 mmol/L (21-32); CREATININE 0.4 mg/dL (0.55-1.02); GLUCOSE,RANDOM 96 mg/dL (74-106); PHOSPHOROUS 2.9 mg/dL (2.5-4.9)
[2017-07-26 09:51] LABS: MAGNESIUM 1.9 mg/dL (1.8-2.4)
[2017-07-26] MEDS: BUDESONIDE 0.25 MG/2ML INH SUSP VIAL NEB SCH ×2 (10:04→22:00)
--- NOTE | 2017-07-26 11:46 | PN ---
Progress Note, [employer] - Note Progress Note: New #7 tracheostomy tube replaced Selected Entries 07/25/17 07/25/17 07/25/17 01:00 05:00 13:22 Breakfast Lunch Supper Temperature 98.9 F 98.1 F 98.6 F 07/25/17 07/25/17 07/26/17 17:00 21:00 06:28 Breakfast Lunch Supper Temperature 98.5 F 98.9 F 98.3 F 07/26/17 07/26/17 07/26/17 08:51 14:00 17:10 Breakfast 50% Lunch 0 Supper 25% Temperature 98.9 F 98.8 F 99.3 F Laboratory Tests 07/25/17 07:30 WBC 24.0 H for MBS
[2017-07-26] MEDS: LACTOBACILLUS ACIDOPHILUS 1 EACH TAB (FP) PO SCH ×2 (11:53→21:51)
[2017-07-26] MEDS: VALSARTAN 160 MG TABLET (UD) PO SCH (11:53)
[2017-07-26] MEDS: FOLIC ACID 1 MG TABLET (FP) PO SCH (11:53)
[2017-07-26] MEDS: THIAMINE HCL 100 MG TABLET (FP) PO SCH (11:54)
[2017-07-26] MEDS: ARTIFICIAL TEARS (POLYVINYL ALCOHOL 1.4%) OPTH DROPS OU SCH (11:55)
[2017-07-26] MEDS: APIXABAN 5 MG TABLET PO SCH ×2 (11:56→21:52)
[2017-07-26] MEDS: predniSONE 20 MG TABLET (UD) PO SCH (11:56)
[2017-07-26] MEDS: VITAMIN B COMPLEX W/C COMBO TABLET (FP) PO SCH (11:58)
[2017-07-26] MEDS: CHOLESTYRAMINE/ASPARTAME 4 GM PACKET PO SCH ×2 (12:12→21:53)
[2017-07-26] MEDS ORDERED: PT OWN MED DRAWER 7, Y5N ONE (12:31)
--- NOTE | 2017-07-26 12:40 | PN ---
Progress Note, Physician Chief Complaint: Events noted Not in distress On vent support via trache History of Present Illness: Patient was seen and examined. Awake and alert. Chart was reviewed Denies chest pain or palpitations Tolerating therapy - Current Medication List Current Medications: Active Medications Acetaminophen (Tylenol -) 650 mg PO Q4H PRN PRN Reason: FEVER OR PAIN Last Admin: 07/25/17 21:29 Dose: 650 mg Albuterol Sulfate (Ventolin 0.083% Nebulizer Soln -) 1 amp NEB Q4H PRN PRN Reason: SHORT OF BREATH/WHEEZING Albuterol/Ipratropium (Duoneb -) 1 amp NEB Q4HPO [facility] Last Admin: 07/26/17 10:04 Dose: 1 amp Apixaban (Eliquis -) 5 mg PO BID [facility] Last Admin: 07/26/17 11:56 Dose: 5 mg Artificial Tears (Artificial Tears) 1 drop OU DAILY [facility] Last Admin: 07/26/17 11:55 Dose: 1 drop Budesonide (Pulmicort 0.25 Mg Nebulizer -) 1 amp NEB BID [facility] Last Admin: 07/26/17 10:04 Dose: 1 amp Cholestyramine Resin (Questran Light Packet -) 4 gm PO BID [facility] Last Admin: 07/26/17 12:12 Dose: Not Given Diltiazem HCl (Cardizem Cd -) 180 mg PO DAILY [facility] Last Admin: 07/26/17 11:53 Dose: 180 mg Folic Acid (Folic Acid -) 1 mg PO DAILY [facility] Last Admin: 07/26/17 11:53 Dose: 1 mg Pantoprazole Sodium 40 mg/ (Sodium Chloride) 100 mls @ 200 mls/hr IVPB DAILY [facility] Last Admin: 07/25/17 10:05 Dose: 200 mls/hr Cefepime HCl 1 gm/ Dextrose 100 mls @ 200 mls/hr IVPB Q8H-IV [facility] Last Admin: 07/26/17 11:57 Dose: 200 mls/hr Lactobacillus Acidophilus (Bacid -) 1 tab PO BID [facility] Last Admin: 07/26/17 11:53 Dose: 1 tab Levothyroxine Sodium (Synthroid -) 50 mcg PO DAILY@0700 [facility] Last Admin: 07/26/17 06:43 Dose: 50 mcg Lorazepam (Ativan -) 0.5 mg PO TID [facility] Last Admin: 07/26/17 06:43 Dose: 0.5 mg Melatonin (Melatonin) 3 mg PO HS [facility] Last Admin: 07/25/17 21:29 Dose: 3 mg Mirtazapine (Remeron -) 15 mg PO HS [facility] Last Admin: 07/25/17 21:33 Dose: Not Given Multivitamins (Total B With C -) 1 each PO DAILY [facility] Last Admin: 07/26/17 11:58 Dose: 1 each Oxycodone HCl (Roxicodone -) 5 mg PO Q4H PRN Last Admin: 07/25/17 22:00 Dose: 5 mg Prednisone (Deltasone -) 40 mg PO DAILY [facility] Last Admin: 07/26/17 11:56 Dose: 40 mg Thiamine HCl (Vitamin B1 -) 100 mg PO DAILY [facility] Last Admin: 07/26/17 11:54 Dose: 100 mg Valsartan (Diovan -) 320 mg PO DAILY [facility] Last Admin: 07/26/17 11:53 Dose: 320 mg - Objective Vital Signs: Vital Signs Temperature 98.9 F 07/26/17 08:51 Pulse Rate 80 07/26/17 08:58 Respiratory Rate 16 07/26/17 11:42 Blood Pressure 156/84 07/26/17 08:51 O2 Sat by Pulse Oximetry (%) 96 07/26/17 08:58 Neck: Yes: Supple Cardiovascular: Yes: Regular Rate and Rhythm, S1, S2 Respiratory: Yes: Diminished, Mechanically Ventilated Gastrointestinal: Yes: Normal Bowel Sounds, Soft. No: Tenderness Edema: No Labs: CBC, BMP 07/25/17 07:30 07/26/17 08:00 Problem List - Problems (1) Anemia Code(s): D64.9 - ANEMIA, UNSPECIFIED Qualifiers: Anemia type: unspecified type Qualified Code(s): D64.9 - Anemia, unspecified (2) Sepsis due to other specified Staphylococcus Code(s): A41.1 - SEPSIS DUE TO OTHER SPECIFIED STAPHYLOCOCCUS (3) A-fib Code(s): I48.91 - UNSPECIFIED ATRIAL FIBRILLATION Qualifiers: Atrial fibrillation type: paroxysmal Qualified Code(s): I48.0 - Paroxysmal atrial fibrillation (4) Acute and chronic respiratory failure with hypoxia Code(s): J96.21 - ACUTE AND CHRONIC RESPIRATORY FAILURE WITH HYPOXIA (5) Acute on chronic respiratory failure with hypoxia and hypercapnia Code(s): J96.21 - ACUTE AND CHRONIC RESPIRATORY FAILURE WITH HYPOXIA J96.22 - ACUTE AND CHRONIC RESPIRATORY FAILURE WITH HYPERCAPNIA (6) COPD (chronic obstructive pulmonary disease) Code(s): J44.9 - CHRONIC OBSTRUCTIVE PULMONARY DISEASE, UNSPECIFIED Qualifiers : COPD type: unspecified COPD Qualified Code(s): J44.9 - Chronic obstructive pulmonary disease, unspecified (7) Recurrent Clostridium difficile diarrhea Code(s): A04.7 - ENTEROCOLITIS DUE TO CLOSTRIDIUM DIFFICILE Assessment/Plan 1. Sepsis syndrome improving, r/o pneumonia with h/o multi-drug resistant organisms 2. COPD with Chronic Hypoxic Respiratory Failure post tracheostomy and on mechanical vent 3. Diastolic LV dysfunction with class I NYHA classification LV congestive heart failure, compensated/euvolemic 4. Paroxysmal Atrial Fibrillation/atrial tachycardia on NOAC, [id number] score of 4 5. HTN 6. Hypothyroidism 7. History of C. Difficile Colitis 8. MARLYN and Hyperkalemia resolved 9. Anemia post transfusion PLAN: 1. Antibiotic coverage 2. Inhaled bronchodilators, O2 to keep SpO2 >90%, Prednisone taper with GI protection 3. Continue Cardizem and Diovan 4. Continue Eliquis 5 bid for DVT Further plans are to follow Bert Chapa MD
--- NOTE | 2017-07-26 12:52 | PN ---
Progress Note (short form) - Note Progress Note: PULMONARY Vented on volume assist control. Reports more shortness of breath today. No fevers recorded. Last Vital Signs Temp Pulse Resp BP Pulse Ox 98.9 F 80 16 156/84 96 07/26/17 08:51 07/26/17 08:58 07/26/17 11:42 07/26/17 08:51 07/26/17 08:58 Gen: vented, awake Heart: RRR Lung: scattered rhonchi Abd: soft, nontender Ext: no edema CBC, BMP 07/25/17 07:30 07/26/17 08:00 Active Medications Acetaminophen (Tylenol -) 650 mg PO Q4H PRN PRN Reason: FEVER OR PAIN Last Admin: 07/25/17 21:29 Dose: 650 mg Albuterol Sulfate (Ventolin 0.083% Nebulizer Soln -) 1 amp NEB Q4H PRN PRN Reason: SHORT OF BREATH/WHEEZING Albuterol/Ipratropium (Duoneb -) 1 amp NEB Q4HPO [facility] Last Admin: 07/26/17 10:04 Dose: 1 amp Apixaban (Eliquis -) 5 mg PO BID [facility] Last Admin: 07/26/17 11:56 Dose: 5 mg Artificial Tears (Artificial Tears) 1 drop OU DAILY [facility] Last Admin: 07/26/17 11:55 Dose: 1 drop Budesonide (Pulmicort 0.25 Mg Nebulizer -) 1 amp NEB BID [facility] Last Admin: 07/26/17 10:04 Dose: 1 amp Cholestyramine Resin (Questran Light Packet -) 4 gm PO BID [facility] Last Admin: 07/26/17 12:12 Dose: Not Given Diltiazem HCl (Cardizem Cd -) 180 mg PO DAILY [facility] Last Admin: 07/26/17 11:53 Dose: 180 mg Folic Acid (Folic Acid -) 1 mg PO DAILY [facility] Last Admin: 07/26/17 11:53 Dose: 1 mg Pantoprazole Sodium 40 mg/ (Sodium Chloride) 100 mls @ 200 mls/hr IVPB DAILY [facility] Last Admin: 07/25/17 10:05 Dose: 200 mls/hr Cefepime HCl 1 gm/ Dextrose 100 mls @ 200 mls/hr IVPB Q8H-IV [facility] Last Admin: 07/26/17 11:57 Dose: 200 mls/hr Lactobacillus Acidophilus (Bacid -) 1 tab PO BID [facility] Last Admin: 07/26/17 11:53 Dose: 1 tab Levothyroxine Sodium (Synthroid -) 50 mcg PO DAILY@0700 [facility] Last Admin: 07/26/17 06:43 Dose: 50 mcg Lorazepam (Ativan -) 0.5 mg PO TID [facility] Last Admin: 07/26/17 06:43 Dose: 0.5 mg Melatonin (Melatonin) 3 mg PO HS [facility] Last Admin: 07/25/17 21:29 Dose: 3 mg Mirtazapine (Remeron -) 15 mg PO HS [facility] Last Admin: 07/25/17 21:33 Dose: Not Given Multivitamins (Total B With C -) 1 each PO DAILY [facility] Last Admin: 07/26/17 11:58 Dose: 1 each Oxycodone HCl (Roxicodone -) 5 mg PO Q4H PRN Last Admin: 07/25/17 22:00 Dose: 5 mg Prednisone (Deltasone -) 40 mg PO DAILY [facility] Last Admin: 07/26/17 11:56 Dose: 40 mg Thiamine HCl (Vitamin B1 -) 100 mg PO DAILY [facility] Last Admin: 07/26/17 11:54 Dose: 100 mg Valsartan (Diovan -) 320 mg PO DAILY [facility] Last Admin: 07/26/17 11:53 Dose: 320 mg A/P r/o Pneumonia Severe Sepsis improved Acute Kidney Injury improving Acute on Chronic Hypoxic Vent Dependent Respiratory Failure resolving Severe COPD LV Diastolic Dysfunction Paroxysmal Atrial Fibrilation HTN Hypothyroidism - continue antibiotics per ID - monitor urine output, creatinine - continue prednisone, will give extra dose tonight - inhaled bronchodilators - O2 to keep SpO2 >90% - rate control - continue anticoagulation - PO as tolerated - DVT/GI prophylaxis
--- NOTE | 2017-07-26 13:02 | PN ---
Progress Note, Physician Chief Complaint: patient is awake alert - Current Medication List Current Medications: Active Medications Acetaminophen (Tylenol -) 650 mg PO Q4H PRN PRN Reason: FEVER OR PAIN Last Admin: 07/25/17 21:29 Dose: 650 mg Albuterol Sulfate (Ventolin 0.083% Nebulizer Soln -) 1 amp NEB Q4H PRN PRN Reason: SHORT OF BREATH/WHEEZING Albuterol/Ipratropium (Duoneb -) 1 amp NEB Q4HPO [facility] Last Admin: 07/26/17 10:04 Dose: 1 amp Apixaban (Eliquis -) 5 mg PO BID [facility] Last Admin: 07/26/17 11:56 Dose: 5 mg Artificial Tears (Artificial Tears) 1 drop OU DAILY [facility] Last Admin: 07/26/17 11:55 Dose: 1 drop Budesonide (Pulmicort 0.25 Mg Nebulizer -) 1 amp NEB BID [facility] Last Admin: 07/26/17 10:04 Dose: 1 amp Cholestyramine Resin (Questran Light Packet -) 4 gm PO BID [facility] Last Admin: 07/26/17 12:12 Dose: Not Given Diltiazem HCl (Cardizem Cd -) 180 mg PO DAILY [facility] Last Admin: 07/26/17 11:53 Dose: 180 mg Folic Acid (Folic Acid -) 1 mg PO DAILY [facility] Last Admin: 07/26/17 11:53 Dose: 1 mg Pantoprazole Sodium 40 mg/ (Sodium Chloride) 100 mls @ 200 mls/hr IVPB DAILY [facility] Last Admin: 07/25/17 10:05 Dose: 200 mls/hr Cefepime HCl 1 gm/ Dextrose 100 mls @ 200 mls/hr IVPB Q8H-IV [facility] Last Admin: 07/26/17 11:57 Dose: 200 mls/hr Lactobacillus Acidophilus (Bacid -) 1 tab PO BID [facility] Last Admin: 07/26/17 11:53 Dose: 1 tab Levothyroxine Sodium (Synthroid -) 50 mcg PO DAILY@0700 [facility] Last Admin: 07/26/17 06:43 Dose: 50 mcg Lorazepam (Ativan -) 0.5 mg PO TID [facility] Last Admin: 07/26/17 06:43 Dose: 0.5 mg Melatonin (Melatonin) 3 mg PO HS [facility] Last Admin: 07/25/17 21:29 Dose: 3 mg Mirtazapine (Remeron -) 15 mg PO HS [facility] Last Admin: 07/25/17 21:33 Dose: Not Given Multivitamins (Total B With C -) 1 each PO DAILY [facility] Last Admin: 07/26/17 11:58 Dose: 1 each Oxycodone HCl (Roxicodone -) 5 mg PO Q4H PRN Last Admin: 07/25/17 22:00 Dose: 5 mg Prednisone (Deltasone -) 40 mg PO DAILY [facility] Last Admin: 07/26/17 11:56 Dose: 40 mg Prednisone (Deltasone -) 40 mg PO ONCE ONE Stop: 07/26/17 18:01 Thiamine HCl (Vitamin B1 -) 100 mg PO DAILY [facility] Last Admin: 07/26/17 11:54 Dose: 100 mg Valsartan (Diovan -) 320 mg PO DAILY [facility] Last Admin: 07/26/17 11:53 Dose: 320 mg - Objective Vital Signs: Vital Signs Temperature 98.9 F 07/26/17 08:51 Pulse Rate 80 07/26/17 08:58 Respiratory Rate 16 07/26/17 11:42 Blood Pressure 156/84 07/26/17 08:51 O2 Sat by Pulse Oximetry (%) 96 07/26/17 08:58 Constitutional: Yes: Calm Neck: Yes: Trachea Midline, Other (trach) Cardiovascular: Yes: Regular Rate and Rhythm, S1, S2 Respiratory: Yes: Mechanically Ventilated Gastrointestinal: Yes: Normal Bowel Sounds, Soft Edema: No Neurological: Yes: Alert, Oriented Labs: CBC, BMP 07/25/17 07:30 07/26/17 08:00 INR, PTT INR 1.72 (0.82-1.09) H D 07/19/17 11:34 Problem List - Problems (1) Sepsis Assessment/Plan: iv abx per ID-cefepime possible pulm source given trach secertion contact isolation wbc high sec to steroids to get MBS to r/o aspiration Code(s): A41.9 - SEPSIS, UNSPECIFIED ORGANISM Qualifiers: Sepsis type: sepsis due to unspecified organism Qualified Code(s): A41.9 - Sepsis, unspecified organism (2) A-fib Assessment/Plan: cardizem and eliquis HR better controlled Code(s): I48.91 - UNSPECIFIED ATRIAL FIBRILLATION Qualifiers: Atrial fibrillation type: paroxysmal Qualified Code(s): I48.0 - Paroxysmal atrial fibrillation (3) Hypothyroid Assessment/Plan: tsh ok synthroid Code(s): E03.9 - HYPOTHYROIDISM, UNSPECIFIED Qualifiers: Hypothyroidism type: unspecified Qualified Code(s): E03.9 - Hypothyroidism, unspecified (4) Acute and chronic respiratory failure with hypoxia Assessment/Plan: on vent now on resp( med/surg) floor bronchodilators steroid taper Code(s): J96.21 - ACUTE AND CHRONIC RESPIRATORY FAILURE WITH HYPOXIA (5) Anemia Assessment/Plan: heme on board check stool iron agnes got 2 units prbc Code(s): D64.9 - ANEMIA, UNSPECIFIED Qualifiers: Anemia type: unspecified type Qualified Code(s): D64.9 - Anemia, unspecified (6) Diastolic heart failure Assessment/Plan: monitor K on diovan- today labs K 4.5 lopresor and questran Code(s): I50.30 - UNSPECIFIED DIASTOLIC (CONGESTIVE) HEART FAILURE Qualifiers : Heart failure chronicity: chronic Qualified Code(s): I50.32 - Chronic diastolic (congestive) heart failure
[2017-07-26] MEDS ORDERED: predniSONE 20 MG TABLET (UD) PO SCH (13:03)
[2017-07-26] MEDS: PANTOPRAZOLE SODIUM 40 MG in SODIUM CHLORIDE 100 ML IVPB SCH (14:19)
[2017-07-26] MEDS ORDERED: predniSONE 20 MG TABLET (UD) PO ONE (18:00)
[2017-07-26] MEDS ORDERED: BUDESONIDE 0.5 MG/2 ML INH SUSP VIAL NEB ONE (21:04)
[2017-07-26] MEDS: MELATONIN 1 MG TABLET PO SCH (21:52)
[2017-07-26] MEDS: MIRTAZAPINE 15 MG TABLET (FP) PO SCH (21:54)
[2017-07-27] MEDS ORDERED: CEFEPIME HCL 1 GM VIAL (RESTRICTED TO ID) ONE ×3 (00:48→17:48)
[2017-07-27] MEDS ORDERED: DEXTROSE 5%-WATER 100 ML IVPB ONE ×3 (00:48→17:48)
[2017-07-27] MEDS: CEFEPIME 1 GM in DEXTROSE 5%-WATER 100 ML IVPB SCH ×3 (01:48→17:54)
[2017-07-27] MEDS: ALBUTEROL SO4 2.5/IPRATROPIUM 0.5 INH SOL 3 ML VIAL.NEB. NEB SCH ×6 (02:30→22:00)
[2017-07-27] MEDS: LORazepam 0.5 MG TABLET PO SCH ×3 (07:05→21:31)
[2017-07-27] MEDS: LEVOTHYROXINE NA 50 MCG TABLET (FP) PO SCH (07:05)
[2017-07-27 08:38] LABS: MCH 29.1 pg (25.7-33.7); MCHC 32.8 g/dl (32.0-36.0); MEAN CELL VOLUME 88.8 fl (80-96); MEAN PLT VOLUME 8.6 fl (7.5-11.1); WHITE BLOOD COUNT 21.8 K/mm3 (4.0-10.0)
--- NOTE | 2017-07-27 08:51 | DS ---
Physical Examination Vital Signs: Vital Signs Temperature 98.5 F 07/27/17 06:00 Pulse Rate 95 H 07/27/17 06:00 Respiratory Rate 10 L 07/27/17 07:16 Blood Pressure 148/68 07/27/17 06:00 O2 Sat by Pulse Oximetry (%) 96 07/26/17 09:00 Cardiovascular: Yes: S1, S2 Respiratory: Yes: Mechanically Ventilated, Rhonchi Gastrointestinal: Yes: Normal Bowel Sounds, Soft Labs: CBC, BMP 07/27/17 07:00 07/26/17 08:00 Discharge Summary Reason For Visit: FEVER Current Active Problems Acute renal failure (Acute) Anemia (Acute) Fever (Acute) Hyperkalemia (Acute) Sepsis due to other specified Staphylococcus (Acute) Hospital Course: - Problems (1) Sepsis Assessment/Plan: iv abx per ID-cefepime --COMPLETED possible pulm source given trach secertion contact isolation wbc high sec to steroids to get MBS to r/o aspiration Code(s): A41.9 - SEPSIS, UNSPECIFIED ORGANISM Qualifiers: Sepsis type: sepsis due to unspecified organism Qualified Code(s): A41.9 - Sepsis, unspecified organism (2) A-fib Assessment/Plan: cardizem and eliquis HR better controlled Code(s): I48.91 - UNSPECIFIED ATRIAL FIBRILLATION Qualifiers: Atrial fibrillation type: paroxysmal Qualified Code(s): I48.0 - Paroxysmal atrial fibrillation (3) Hypothyroid Assessment/Plan: tsh ok synthroid Code(s): E03.9 - HYPOTHYROIDISM, UNSPECIFIED Qualifiers: Hypothyroidism type: unspecified Qualified Code(s): E03.9 - Hypothyroidism, unspecified (4) Acute and chronic respiratory failure with hypoxia Assessment/Plan: on vent now on resp( med/surg) floor bronchodilators steroid taper Code(s): J96.21 - ACUTE AND CHRONIC RESPIRATORY FAILURE WITH HYPOXIA (5) Anemia Assessment/Plan: heme on board check stool iron agnes got 2 units prbc Code(s): D64.9 - ANEMIA, UNSPECIFIED Qualifiers: Anemia type: unspecified type Qualified Code(s): D64.9 - Anemia, unspecified (6) Diastolic heart failure Assessment/Plan: monitor K on diovan- today labs K 4.5 lopresor and questran Code(s): I50.30 - UNSPECIFIED DIASTOLIC (CONGESTIVE) HEART FAILURE Qualifiers : Heart failure chronicity: chronic Qualified Code(s): I50.32 - Chronic diastolic (congestive) heart failure Condition: Improved - Instructions Disposition: NURSING HOME FACILITY - Home Medications Comprehensive Discharge Medication List: Ambulatory Orders Albuterol 2.5/Ipratropium 0.5 [Duoneb -] 1 neb NEB TID 02/01/16 Aspirin [Ecotrin] 81 mg PO DAILY 02/01/16 Folic Acid 1 mg PO DAILY 02/01/16 Lactobacillus Acidophilus [Bacid -] 1 each PO BID 02/01/16 Levothyroxine [Synthroid -] 50 mcg PO DAILY 02/01/16 Lorazepam 0.5 mg PO TID PRN 02/01/16 Melatonin 3 mg PO HS 02/01/16 Mirtazapine 15 mg PO HS 02/01/16 Peg 400/Hypromellose/Glycerin [Artificial Tears Drops] 1 drop OU DAILY 02/01/16 Thiamine HCl [Vitamin B1 -] 100 mg PO DAILY 02/01/16 Vitamin B Complex Vit C No.3 [B Complex with Vitamin C] 1 each PO DAILY Ranitidine [Zantac -] 150 mg PO DAILY tablet 02/09/16 Acetylcysteine Po/INH 20% [Mucomyst 20 Oral / INH Use Only*] 200 mg NEB QIDR vial 06/14/17 Budesonide [Pulmicort 0.25 mg Nebulizer -] 1 amp NEB BID amp 06/14/17 Cholestyramine/Aspartame [Questran Light Packet -] 4 gm PO BID packet 06/14/17 Acetaminophen [Tylenol .Regular Strength -] 650 mg PO Q4H PRN #0 tablet Albuterol 0.083% Nebulizer Carina [Ventolin 0.083% Nebulizer Soln -] 1 amp NEB Q4H PRN #180 amp 06/23/17 Apixaban [Eliquis -] 5 mg PO BID tablet 06/23/17 Budesonide [Pulmicort 0.25 mg Nebulizer -] 1 amp NEB BID amp 06/23/17 Cholestyramine/Aspartame [Questran Light Packet -] 4 gm PO BID packet 06/23/17 Lorazepam [Ativan] 0.5 mg PO Q8H PRN #0 tablet MDD 3 06/23/17 Melatonin 5 mg PO HS tab 06/23/17 Oxycodone HCl [Roxicodone -] 5 mg PO Q4H PRN #0 tablet MDD 6 06/23/17 Prednisone [Deltasone -] 40 mg PO BID #90 tablet 06/23/17 Prednisone [Deltasone -] 40 mg PO DAILY tablet 07/27/17 Valsartan [Diovan] 320 mg PO DAILY tablet 07/27/17
[2017-07-27 09:47] LABS: MYELOCYTE 3 % (0-2); PLATELET COUNT 368 K/MM3 (134-434); PLATELET ESTIMATE ADEQUATE (NORMAL); TOTAL CELLS COUNTED 100
[2017-07-27] MEDS ORDERED: PT OWN MED DRAWER 7, Y5N ONE ×2 (10:29→10:44)
[2017-07-27] MEDS: VALSARTAN 160 MG TABLET (UD) PO SCH (10:34)
[2017-07-27] MEDS: LACTOBACILLUS ACIDOPHILUS 1 EACH TAB (FP) PO SCH ×2 (10:34→21:31)
[2017-07-27] MEDS: predniSONE 20 MG TABLET (UD) PO SCH (10:35)
[2017-07-27] MEDS: THIAMINE HCL 100 MG TABLET (FP) PO SCH (10:35)
[2017-07-27] MEDS: FOLIC ACID 1 MG TABLET (FP) PO SCH (10:35)
[2017-07-27] MEDS: ARTIFICIAL TEARS (POLYVINYL ALCOHOL 1.4%) OPTH DROPS OU SCH (10:36)
[2017-07-27] MEDS: APIXABAN 5 MG TABLET PO SCH ×2 (10:37→21:31)
[2017-07-27] MEDS: VITAMIN B COMPLEX W/C COMBO TABLET (FP) PO SCH (10:37)
[2017-07-27] MEDS: CHOLESTYRAMINE/ASPARTAME 4 GM PACKET PO SCH ×2 (10:39→21:31)
[2017-07-27] MEDS: BUDESONIDE 0.25 MG/2ML INH SUSP VIAL NEB SCH ×2 (11:00→22:00)
--- NOTE | 2017-07-27 11:09 | PN ---
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 PMV use recommended to improve communication,upper airway function and to expedite weaning from ventilator. Tolerating it well, with improved voicing and comfort. Selected Entries 07/26/17 07/26/17 07/26/17 06:28 08:51 14:00 Breakfast 50% Lunch 0 Supper Temperature 98.3 F 98.9 F 98.8 F 07/26/17 07/27/17 07/27/17 17:10 02:00 06:00 Breakfast Lunch Supper 25% Temperature 99.3 F 98.9 F 98.5 F 07/27/17 10:00 Breakfast Lunch Supper Temperature 98.6 F Laboratory Tests 07/27/17 07:00 WBC 21.8 H Suggest: Continue PMV use upon transfer to [place].
[2017-07-27] MEDS: PANTOPRAZOLE SODIUM 40 MG in SODIUM CHLORIDE 100 ML IVPB SCH (12:50)
--- NOTE | 2017-07-27 12:50 | PN ---
Progress Note, Physician History of Present Illness: Fevers resolved, rate-control improved, denies dyspnea, tolerated PMV. - Current Medication List Current Medications: Active Medications Acetaminophen (Tylenol -) 650 mg PO Q4H PRN PRN Reason: FEVER OR PAIN Last Admin: 07/25/17 21:29 Dose: 650 mg Albuterol Sulfate (Ventolin 0.083% Nebulizer Soln -) 1 amp NEB Q4H PRN PRN Reason: SHORT OF BREATH/WHEEZING Albuterol/Ipratropium (Duoneb -) 1 amp NEB Q4HPO [facility] Last Admin: 07/27/17 11:00 Dose: 1 amp Apixaban (Eliquis -) 5 mg PO BID [facility] Last Admin: 07/27/17 10:37 Dose: 5 mg Artificial Tears (Artificial Tears) 1 drop OU DAILY [facility] Last Admin: 07/27/17 10:36 Dose: 1 drop Budesonide (Pulmicort 0.25 Mg Nebulizer -) 1 amp NEB BID [facility] Last Admin: 07/27/17 11:00 Dose: 1 amp Cholestyramine Resin (Questran Light Packet -) 4 gm PO BID [facility] Last Admin: 07/27/17 10:39 Dose: Not Given Diltiazem HCl (Cardizem Cd -) 180 mg PO DAILY [facility] Last Admin: 07/27/17 10:36 Dose: 180 mg Folic Acid (Folic Acid -) 1 mg PO DAILY [facility] Last Admin: 07/27/17 10:35 Dose: 1 mg Pantoprazole Sodium 40 mg/ (Sodium Chloride) 100 mls @ 200 mls/hr IVPB DAILY [facility] Last Admin: 07/26/17 14:19 Dose: 200 mls/hr Cefepime HCl 1 gm/ Dextrose 100 mls @ 200 mls/hr IVPB Q8H-IV [facility] Last Admin: 07/27/17 10:38 Dose: 200 mls/hr Lactobacillus Acidophilus (Bacid -) 1 tab PO BID [facility] Last Admin: 07/27/17 10:34 Dose: 1 tab Levothyroxine Sodium (Synthroid -) 50 mcg PO DAILY@0700 [facility] Last Admin: 07/27/17 07:05 Dose: 50 mcg Lorazepam (Ativan -) 0.5 mg PO TID [facility] Last Admin: 07/27/17 07:05 Dose: 0.5 mg Melatonin (Melatonin) 3 mg PO HS [facility] Last Admin: 07/26/17 21:52 Dose: 3 mg Mirtazapine (Remeron -) 15 mg PO HS [facility] Last Admin: 07/26/17 21:54 Dose: Not Given Multivitamins (Total B With C -) 1 each PO DAILY [facility] Last Admin: 07/27/17 10:37 Dose: 1 each Oxycodone HCl (Roxicodone -) 5 mg PO Q4H PRN Last Admin: 07/25/17 22:00 Dose: 5 mg Prednisone (Deltasone -) 40 mg PO DAILY [facility] Last Admin: 07/27/17 10:35 Dose: 40 mg Thiamine HCl (Vitamin B1 -) 100 mg PO DAILY [facility] Last Admin: 07/27/17 10:35 Dose: 100 mg Valsartan (Diovan -) 320 mg PO DAILY [facility] Last Admin: 07/27/17 10:34 Dose: 320 mg - Objective Vital Signs: Vital Signs Temperature 98.6 F 07/27/17 10:00 Pulse Rate 78 07/27/17 10:54 Respiratory Rate 10 L 07/27/17 10:54 Blood Pressure 160/85 07/27/17 10:00 O2 Sat by Pulse Oximetry (%) 98 07/27/17 10:54 Constitutional: Yes: No Distress, Calm Cardiovascular: Yes: Regular Rate and Rhythm Respiratory: Yes: Diminished, Mechanically Ventilated, Rhonchi Gastrointestinal: Yes: Normal Bowel Sounds, Soft Edema: No Labs: CBC, BMP 07/27/17 07:00 07/26/17 08:00 INR, PTT INR 1.72 (0.82-1.09) H D 07/19/17 11:34 Problem List - Problems (1) Sepsis due to other specified Staphylococcus Code(s): A41.1 - SEPSIS DUE TO OTHER SPECIFIED STAPHYLOCOCCUS (2) A-fib Code(s): I48.91 - UNSPECIFIED ATRIAL FIBRILLATION Qualifiers: Atrial fibrillation type: paroxysmal Qualified Code(s): I48.0 - Paroxysmal atrial fibrillation (3) COPD (chronic obstructive pulmonary disease) Code(s): J44.9 - CHRONIC OBSTRUCTIVE PULMONARY DISEASE, UNSPECIFIED Qualifiers : COPD type: unspecified COPD Qualified Code(s): J44.9 - Chronic obstructive pulmonary disease, unspecified (4) Chronic respiratory failure with hypoxia Code(s): J96.11 - CHRONIC RESPIRATORY FAILURE WITH HYPOXIA (5) Diastolic heart failure Code(s): I50.30 - UNSPECIFIED DIASTOLIC (CONGESTIVE) HEART FAILURE Qualifiers : Heart failure chronicity: chronic Qualified Code(s): I50.32 - Chronic diastolic (congestive) heart failure (6) Gastroparesis Code(s): K31.84 - GASTROPARESIS (7) Hypothyroid Code(s): E03.9 - HYPOTHYROIDISM, UNSPECIFIED Qualifiers: Hypothyroidism type: unspecified Qualified Code(s): E03.9 - Hypothyroidism, unspecified (8) Leukocytosis Code(s): D72.829 - ELEVATED WHITE BLOOD CELL COUNT, UNSPECIFIED Qualifiers: Leukocytosis type: unspecified Qualified Code(s): D72.829 - Elevated white blood cell count, unspecified (9) Sepsis Code(s): A41.9 - SEPSIS, UNSPECIFIED ORGANISM Qualifiers: Sepsis type: sepsis due to unspecified organism Qualified Code(s): A41.9 - Sepsis, unspecified organism (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 Sepsis syndrome improving, r/o pneumonia with h/o multi-drug resistant organisms 2. COPD with Chronic Hypoxic Respiratory Failure post tracheostomy 3. Diastolic LV dysfunction with class I NYHA classification LV congestive heart failure, compensated/euvolemic 4. Paroxysmal Atrial Fibrillation/atrial tachycardia on NOAC, [id number] score of 4 5. HTN, BP not at goal 6. Hypothyroidism 7. History of C. Difficile Colitis 8. MARLYN and Hyperkalemia resolved 9. Anemia post transfusion P: 1. Complete cefepime course, contact isolation 2. Inhaled bronchodilators, O2 to keep SpO2 >90%, prednisone taper with GI protection, PMV 3. Continue Cardizem CD 180 qd, Diovan 320 qd, Questran 4 bid 4. Continue Eliquis 5 bid for DVT and stroke thrombophylaxis given elevated risk score
[2017-07-27] MEDS: MELATONIN 1 MG TABLET PO SCH (21:31)
[2017-07-27] MEDS: MIRTAZAPINE 15 MG TABLET (FP) PO SCH (21:32)
[2017-07-27] MEDS ORDERED: BUDESONIDE 0.5 MG/2 ML INH SUSP VIAL NEB ONE (21:57)
[2017-07-28] MEDS ORDERED: CEFEPIME HCL 1 GM VIAL (RESTRICTED TO ID) ONE ×2 (00:49→11:04)
[2017-07-28] MEDS ORDERED: DEXTROSE 5%-WATER 100 ML IVPB ONE ×2 (00:50→11:05)
[2017-07-28] MEDS: ALBUTEROL SO4 2.5/IPRATROPIUM 0.5 INH SOL 3 ML VIAL.NEB. NEB SCH ×4 (02:00→14:03)
[2017-07-28] MEDS: CEFEPIME 1 GM in DEXTROSE 5%-WATER 100 ML IVPB SCH ×2 (02:03→11:10)
[2017-07-28] MEDS: LORazepam 0.5 MG TABLET PO SCH ×2 (06:43→15:35)
[2017-07-28] MEDS: LEVOTHYROXINE NA 50 MCG TABLET (FP) PO SCH (06:43)
--- NOTE | 2017-07-28 10:45 | PN ---
Progress Note, Physician History of Present Illness: Remains in rate-control afib, denies dyspnea, tolerated PMV. - Current Medication List Current Medications: Active Medications Acetaminophen (Tylenol -) 650 mg PO Q4H PRN PRN Reason: FEVER OR PAIN Last Admin: 07/25/17 21:29 Dose: 650 mg Albuterol Sulfate (Ventolin 0.083% Nebulizer Soln -) 1 amp NEB Q4H PRN PRN Reason: SHORT OF BREATH/WHEEZING Albuterol/Ipratropium (Duoneb -) 1 amp NEB Q4HPO [facility] Last Admin: 07/28/17 06:01 Dose: 1 amp Apixaban (Eliquis -) 5 mg PO BID [facility] Last Admin: 07/27/17 21:31 Dose: 5 mg Artificial Tears (Artificial Tears) 1 drop OU DAILY [facility] Last Admin: 07/27/17 10:36 Dose: 1 drop Budesonide (Pulmicort 0.25 Mg Nebulizer -) 1 amp NEB BID [facility] Last Admin: 07/27/17 22:00 Dose: 1 amp Cholestyramine Resin (Questran Light Packet -) 4 gm PO BID [facility] Last Admin: 07/27/17 21:31 Dose: Not Given Diltiazem HCl (Cardizem Cd -) 180 mg PO DAILY [facility] Last Admin: 07/27/17 10:36 Dose: 180 mg Folic Acid (Folic Acid -) 1 mg PO DAILY [facility] Last Admin: 07/27/17 10:35 Dose: 1 mg Pantoprazole Sodium 40 mg/ (Sodium Chloride) 100 mls @ 200 mls/hr IVPB DAILY [facility] Last Admin: 07/27/17 12:50 Dose: 200 mls/hr Cefepime HCl 1 gm/ Dextrose 100 mls @ 200 mls/hr IVPB Q8H-IV [facility] Last Admin: 07/28/17 02:03 Dose: 200 mls/hr Lactobacillus Acidophilus (Bacid -) 1 tab PO BID [facility] Last Admin: 07/27/17 21:31 Dose: 1 tab Levothyroxine Sodium (Synthroid -) 50 mcg PO DAILY@0700 [facility] Last Admin: 07/28/17 06:43 Dose: 50 mcg Lorazepam (Ativan -) 0.5 mg PO TID [facility] Last Admin: 07/28/17 06:43 Dose: 0.5 mg Melatonin (Melatonin) 3 mg PO HS [facility] Last Admin: 07/27/17 21:31 Dose: 3 mg Mirtazapine (Remeron -) 15 mg PO HS [facility] Last Admin: 07/27/17 21:32 Dose: Not Given Multivitamins (Total B With C -) 1 each PO DAILY [facility] Last Admin: 07/27/17 10:37 Dose: 1 each Oxycodone HCl (Roxicodone -) 5 mg PO Q4H PRN Last Admin: 07/25/17 22:00 Dose: 5 mg Prednisone (Deltasone -) 40 mg PO DAILY [facility] Last Admin: 07/27/17 10:35 Dose: 40 mg Thiamine HCl (Vitamin B1 -) 100 mg PO DAILY [facility] Last Admin: 07/27/17 10:35 Dose: 100 mg Valsartan (Diovan -) 320 mg PO DAILY [facility] Last Admin: 07/27/17 10:34 Dose: 320 mg - Objective Vital Signs: Vital Signs Temperature 98.3 F 07/28/17 06:00 Pulse Rate 82 07/28/17 06:00 Respiratory Rate 16 07/28/17 06:06 Blood Pressure 126/82 07/28/17 06:00 O2 Sat by Pulse Oximetry (%) 97 07/27/17 14:34 Constitutional: Yes: No Distress, Calm, Thin Neck: Yes: Supple Cardiovascular: Yes: Pulse Irregular Respiratory: Yes: Mechanically Ventilated, Rhonchi Gastrointestinal: Yes: Normal Bowel Sounds, Soft Edema: No Labs: CBC, BMP 07/27/17 07:00 07/26/17 08:00 INR, PTT INR 1.72 (0.82-1.09) H D 07/19/17 11:34 Problem List - Problems (1) Sepsis due to other specified Staphylococcus Code(s): A41.1 - SEPSIS DUE TO OTHER SPECIFIED STAPHYLOCOCCUS (2) A-fib Code(s): I48.91 - UNSPECIFIED ATRIAL FIBRILLATION Qualifiers: Atrial fibrillation type: paroxysmal Qualified Code(s): I48.0 - Paroxysmal atrial fibrillation (3) COPD (chronic obstructive pulmonary disease) Code(s): J44.9 - CHRONIC OBSTRUCTIVE PULMONARY DISEASE, UNSPECIFIED Qualifiers : COPD type: unspecified COPD Qualified Code(s): J44.9 - Chronic obstructive pulmonary disease, unspecified (4) Chronic respiratory failure with hypoxia Code(s): J96.11 - CHRONIC RESPIRATORY FAILURE WITH HYPOXIA (5) Diastolic heart failure Code(s): I50.30 - UNSPECIFIED DIASTOLIC (CONGESTIVE) HEART FAILURE Qualifiers : Heart failure chronicity: chronic Qualified Code(s): I50.32 - Chronic diastolic (congestive) heart failure (6) Gastroparesis Code(s): K31.84 - GASTROPARESIS (7) Hypothyroid Code(s): E03.9 - HYPOTHYROIDISM, UNSPECIFIED Qualifiers: Hypothyroidism type: unspecified Qualified Code(s): E03.9 - Hypothyroidism, unspecified (8) Leukocytosis Code(s): D72.829 - ELEVATED WHITE BLOOD CELL COUNT, UNSPECIFIED Qualifiers: Leukocytosis type: unspecified Qualified Code(s): D72.829 - Elevated white blood cell count, unspecified (9) Sepsis Code(s): A41.9 - SEPSIS, UNSPECIFIED ORGANISM Qualifiers: Sepsis type: sepsis due to unspecified organism Qualified Code(s): A41.9 - Sepsis, unspecified organism (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 Sepsis syndrome improving, r/o pneumonia with h/o multi-drug resistant organisms 2. COPD with Chronic Hypoxic Respiratory Failure post tracheostomy 3. Diastolic LV dysfunction with class I NYHA classification LV congestive heart failure, compensated/euvolemic 4. Paroxysmal Atrial Fibrillation/atrial tachycardia on NOAC, [id number] score of 4 5. HTN, BP not at goal 6. Hypothyroidism 7. History of C. Difficile Colitis 8. MARLYN and Hyperkalemia resolved 9. Anemia post transfusion P: 1. Complete cefepime course, contact isolation 2. Inhaled bronchodilators, O2 to keep SpO2 >90%, prednisone taper with GI protection, PMV 3. Continue Cardizem CD 180 qd, Diovan 320 qd, Questran 4 bid 4. Continue Eliquis 5 bid for DVT and stroke thrombophylaxis given elevated risk score
[2017-07-28] MEDS ORDERED: predniSONE 10 MG TABLET (UD) PO SCH (10:46)
[2017-07-28 10:54] VITALS: TEMP 98.1
[2017-07-28] MEDS ORDERED: PT OWN MED DRAWER 7, Y5N ONE (11:04)
[2017-07-28] MEDS: BUDESONIDE 0.25 MG/2ML INH SUSP VIAL NEB SCH (11:08)
[2017-07-28] MEDS: APIXABAN 5 MG TABLET PO SCH (11:11)
[2017-07-28] MEDS: VITAMIN B COMPLEX W/C COMBO TABLET (FP) PO SCH (11:11)
[2017-07-28] MEDS: FOLIC ACID 1 MG TABLET (FP) PO SCH (11:11)
[2017-07-28] MEDS: LACTOBACILLUS ACIDOPHILUS 1 EACH TAB (FP) PO SCH (11:11)
[2017-07-28] MEDS: THIAMINE HCL 100 MG TABLET (FP) PO SCH (11:11)
[2017-07-28] MEDS: CHOLESTYRAMINE/ASPARTAME 4 GM PACKET PO SCH (11:12)
[2017-07-28] MEDS: VALSARTAN 160 MG TABLET (UD) PO SCH (11:12)
[2017-07-28] MEDS: PANTOPRAZOLE SODIUM 40 MG in SODIUM CHLORIDE 100 ML IVPB SCH (11:12)
[2017-07-28] MEDS: ARTIFICIAL TEARS (POLYVINYL ALCOHOL 1.4%) OPTH DROPS OU SCH (11:12)
--- NOTE | 2017-07-28 11:15 | PN ---
Progress Note (short form) - Note Progress Note: PULMONARY Vented on volume assist control. States breathing is improved. No fevers recorded. Last Vital Signs Temp Pulse Resp BP Pulse Ox 98.1 F 86 14 146/78 99 07/28/17 10:00 07/28/17 11:07 07/28/17 11:07 07/28/17 10:00 07/28/17 11:07 Gen: vented, awake Heart: RRR Lung: scattered rhonchi Abd: soft, nontender Ext: no edema CBC, BMP 07/27/17 07:00 07/26/17 08:00 Active Medications Acetaminophen (Tylenol -) 650 mg PO Q4H PRN PRN Reason: FEVER OR PAIN Last Admin: 07/25/17 21:29 Dose: 650 mg Albuterol Sulfate (Ventolin 0.083% Nebulizer Soln -) 1 amp NEB Q4H PRN PRN Reason: SHORT OF BREATH/WHEEZING Albuterol/Ipratropium (Duoneb -) 1 amp NEB Q4HPO [facility] Last Admin: 07/28/17 11:08 Dose: 1 amp Apixaban (Eliquis -) 5 mg PO BID [facility] Last Admin: 07/28/17 11:11 Dose: 5 mg Artificial Tears (Artificial Tears) 1 drop OU DAILY [facility] Last Admin: 07/28/17 11:12 Dose: 1 drop Budesonide (Pulmicort 0.25 Mg Nebulizer -) 1 amp NEB BID [facility] Last Admin: 07/28/17 11:08 Dose: 1 amp Cholestyramine Resin (Questran Light Packet -) 4 gm PO BID [facility] Last Admin: 07/28/17 11:12 Dose: Not Given Diltiazem HCl (Cardizem Cd -) 180 mg PO DAILY [facility] Last Admin: 07/28/17 11:11 Dose: 180 mg Folic Acid (Folic Acid -) 1 mg PO DAILY [facility] Last Admin: 07/28/17 11:11 Dose: 1 mg Pantoprazole Sodium 40 mg/ (Sodium Chloride) 100 mls @ 200 mls/hr IVPB DAILY [facility] Last Admin: 07/28/17 11:12 Dose: 200 mls/hr Cefepime HCl 1 gm/ Dextrose 100 mls @ 200 mls/hr IVPB Q8H-IV [facility] Last Admin: 07/28/17 11:10 Dose: 200 mls/hr Lactobacillus Acidophilus (Bacid -) 1 tab PO BID [facility] Last Admin: 07/28/17 11:11 Dose: 1 tab Levothyroxine Sodium (Synthroid -) 50 mcg PO DAILY@0700 [facility] Last Admin: 07/28/17 06:43 Dose: 50 mcg Lorazepam (Ativan -) 0.5 mg PO TID [facility] Last Admin: 07/28/17 06:43 Dose: 0.5 mg Melatonin (Melatonin) 3 mg PO HS [facility] Last Admin: 07/27/17 21:31 Dose: 3 mg Mirtazapine (Remeron -) 15 mg PO HS [facility] Last Admin: 07/27/17 21:32 Dose: Not Given Multivitamins (Total B With C -) 1 each PO DAILY [facility] Last Admin: 07/28/17 11:11 Dose: 1 each Oxycodone HCl (Roxicodone -) 5 mg PO Q4H PRN Last Admin: 07/25/17 22:00 Dose: 5 mg Prednisone (Deltasone -) 30 mg PO DAILY [facility] Thiamine HCl (Vitamin B1 -) 100 mg PO DAILY [facility] Last Admin: 07/28/17 11:11 Dose: 100 mg Valsartan (Diovan -) 320 mg PO DAILY [facility] Last Admin: 07/28/17 11:12 Dose: 320 mg A/P r/o Pneumonia Severe Sepsis improved Acute Kidney Injury improving Acute on Chronic Hypoxic Vent Dependent Respiratory Failure resolving Severe COPD LV Diastolic Dysfunction Paroxysmal Atrial Fibrilation HTN Hypothyroidism - continue antibiotics per ID - monitor urine output, creatinine - prednisone taper - inhaled bronchodilators - O2 to keep SpO2 >90% - rate control - continue anticoagulation - PO as tolerated - DVT/GI prophylaxis
--- NOTE | 2017-07-28 11:49 | DS ---
Physical Examination Vital Signs: Vital Signs Temperature 98.1 F 07/28/17 10:00 Pulse Rate 86 07/28/17 11:07 Respiratory Rate 14 07/28/17 11:07 Blood Pressure 146/78 07/28/17 10:00 O2 Sat by Pulse Oximetry (%) 99 07/28/17 11:07 Constitutional: Yes: Calm, Thin Neck: Yes: Other (trach) Cardiovascular: Yes: S1, S2 Respiratory: Yes: Mechanically Ventilated Gastrointestinal: Yes: Normal Bowel Sounds, Soft Edema: No Neurological: Yes: Alert, Oriented Labs: CBC, BMP 07/27/17 07:00 07/26/17 08:00 Discharge Summary Reason For Visit: FEVER Current Active Problems Acute renal failure (Acute) Anemia (Acute) Fever (Acute) Hyperkalemia (Acute) Sepsis due to other specified Staphylococcus (Acute) Hospital Course: - Primary Care Physician PCP: Dino Lopez - Admission Chief Complaint: Sepsis History of Present Illness: Ms. Sarabia, a pleasant 67 year old female, vent dependent, came in through [facility] ER for worsening SOB, fever and tachycardia. Upon evaluation she was found to have leukocytosis, anemic, hypotensive in rapid afib. 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: Yes: CVA, Other (poor short term memory) Cardiovascular: Yes: AFIB, HTN Pulmonary: Yes: COPD, Previously Intubated, Other (RESPIRATORY FAILURE) Heme/Onc: Yes: Hypercoaguable State Infectious Disease: Yes: C-Diff Endocrine: Yes: Hypothyroidism - Past Surgical History Past Surgical History: Yes: Appendectomy - Smoking History Smoking history: Former smoker Have you smoked in the past 12 months: No If you are a former smoker, when did you quit?: 2008 - Alcohol/Substance Use Hx Alcohol Use: No History of Substance Use: reports: None sepsis secondary to possible pulm source day 7 of iv cefepime ent saw patient trach changed acute on chronic resp failure iv to po steroids now taper MBS done regular diet thin lqiuds PMV to be used during all meals trial to wean off vent leukocytosis sec to steroids = taper steroids afib on eliquis and cardizem Condition: Improved - Instructions Disposition: [facility] FACILITY - Home Medications Comprehensive Discharge Medication List: Ambulatory Orders Albuterol 2.5/Ipratropium 0.5 [Duoneb -] 1 neb NEB TID 02/01/16 Aspirin [Ecotrin] 81 mg PO DAILY 02/01/16 Folic Acid 1 mg PO DAILY 02/01/16 Lactobacillus Acidophilus [Bacid -] 1 each PO BID 02/01/16 Levothyroxine [Synthroid -] 50 mcg PO DAILY 02/01/16 Lorazepam 0.5 mg PO TID PRN 02/01/16 Melatonin 3 mg PO HS 02/01/16 Mirtazapine 15 mg PO HS 02/01/16 Peg 400/Hypromellose/Glycerin [Artificial Tears Drops] 1 drop OU DAILY 02/01/16 Thiamine HCl [Vitamin B1 -] 100 mg PO DAILY 02/01/16 Vitamin B Complex Vit C No.3 [B Complex with Vitamin C] 1 each PO DAILY Ranitidine [Zantac -] 150 mg PO DAILY tablet 02/09/16 Acetylcysteine Po/INH 20% [Mucomyst 20 Oral / INH Use Only*] 200 mg NEB QIDR vial 06/14/17 Budesonide [Pulmicort 0.25 mg Nebulizer -] 1 amp NEB BID amp 06/14/17 Cholestyramine/Aspartame [Questran Light Packet -] 4 gm PO BID packet 06/14/17 Acetaminophen [Tylenol .Regular Strength -] 650 mg PO Q4H PRN #0 tablet Albuterol 0.083% Nebulizer Carina [Ventolin 0.083% Nebulizer Soln -] 1 amp NEB Q4H PRN #180 amp 06/23/17 Apixaban [Eliquis -] 5 mg PO BID tablet 06/23/17 Budesonide [Pulmicort 0.25 mg Nebulizer -] 1 amp NEB BID amp 06/23/17 Cholestyramine/Aspartame [Questran Light Packet -] 4 gm PO BID packet 06/23/17 Lorazepam [Ativan] 0.5 mg PO Q8H PRN #0 tablet MDD 3 06/23/17 Melatonin 5 mg PO HS tab 06/23/17 Oxycodone HCl [Roxicodone -] 5 mg PO Q4H PRN #0 tablet MDD 6 06/23/17 Prednisone [Deltasone -] 40 mg PO BID #90 tablet 06/23/17 Prednisone [Deltasone -] 40 mg PO DAILY tablet 07/27/17 Valsartan [Diovan] 320 mg PO DAILY tablet 07/27/17
[2017-07-28] MEDS ORDERED: predniSONE 10 MG TABLET (UD) PO ONE (12:01)
[2017-07-28] MEDS: predniSONE 20 MG TABLET (UD) PO SCH (12:07)
[2017-07-28 14:09] VITALS: BP 150/76; PULSE 102
--- NOTE | 2017-07-28 16:34 | PN ---
Progress Note (short form) - Note Progress Note: Renal follow up for MARLYN and Hyperkalemia PT seen and examined at the bedside awake and alert no overnight events for discharge home today Vital Signs Temperature 98.1 F 07/28/17 14:00 Pulse Rate 102 H 07/28/17 14:00 Respiratory Rate 18 07/28/17 14:02 Blood Pressure 150/76 07/28/17 14:00 O2 Sat by Pulse Oximetry (%) 98 07/28/17 14:02 Intake & Output 07/25/17 07/26/17 07/27/17 07/28/17 23:59 23:59 23:59 23:59 Intake Total 1141 1024 1254 687 Output Total 500 Balance 1141 1024 754 687 Gen: NAD, awake and alert CVS: RRR Lungs: Dec BS b/l lung younger Abd soft NT/ND Ext: no edema CBC, BMP 07/27/17 07:00 07/26/17 08:00 Current Medications Acetaminophen (Tylenol -) 650 mg PO Q4H PRN PRN Reason: FEVER OR PAIN Last Admin: 07/25/17 21:29 Dose: 650 mg Albuterol Sulfate (Ventolin 0.083% Nebulizer Soln -) 1 amp NEB Q4H PRN PRN Reason: SHORT OF BREATH/WHEEZING Albuterol/Ipratropium (Duoneb -) 1 amp NEB Q4HPO VALORIE Last Admin: 07/28/17 14:03 Dose: 1 amp Apixaban (Eliquis -) 5 mg PO BID VALORIE Last Admin: 07/28/17 11:11 Dose: 5 mg Artificial Tears (Artificial Tears) 1 drop OU DAILY VALORIE Last Admin: 07/28/17 11:12 Dose: 1 drop Budesonide (Pulmicort 0.25 Mg Nebulizer -) 1 amp NEB BID VALORIE Last Admin: 07/28/17 11:08 Dose: 1 amp Cholestyramine Resin (Questran Light Packet -) 4 gm PO BID [facility] Last Admin: 07/28/17 11:12 Dose: Not Given Diltiazem HCl (Cardizem Cd -) 180 mg PO DAILY [facility] Last Admin: 07/28/17 11:11 Dose: 180 mg Folic Acid (Folic Acid -) 1 mg PO DAILY [facility] Last Admin: 07/28/17 11:11 Dose: 1 mg Pantoprazole Sodium 40 mg/ (Sodium Chloride) 100 mls @ 200 mls/hr IVPB DAILY [facility] Last Admin: 07/28/17 11:12 Dose: 200 mls/hr Cefepime HCl 1 gm/ Dextrose 100 mls @ 200 mls/hr IVPB Q8H-IV [facility] Last Admin: 07/28/17 11:10 Dose: 200 mls/hr Lactobacillus Acidophilus (Bacid -) 1 tab PO BID [facility] Last Admin: 07/28/17 11:11 Dose: 1 tab Levothyroxine Sodium (Synthroid -) 50 mcg PO DAILY@0700 [facility] Last Admin: 07/28/17 06:43 Dose: 50 mcg Lorazepam (Ativan -) 0.5 mg PO TID [facility] Last Admin: 07/28/17 15:35 Dose: 0.5 mg Melatonin (Melatonin) 3 mg PO HS [facility] Last Admin: 07/27/17 21:31 Dose: 3 mg Mirtazapine (Remeron -) 15 mg PO HS [facility] Last Admin: 07/27/17 21:32 Dose: Not Given Multivitamins (Total B With C -) 1 each PO DAILY [facility] Last Admin: 07/28/17 11:11 Dose: 1 each Oxycodone HCl (Roxicodone -) 5 mg PO Q4H PRN Last Admin: 07/25/17 22:00 Dose: 5 mg Prednisone (Deltasone -) 30 mg PO DAILY [facility] Thiamine HCl (Vitamin B1 -) 100 mg PO DAILY [facility] Last Admin: 07/28/17 11:11 Dose: 100 mg Valsartan (Diovan -) 320 mg PO DAILY [facility] Last Admin: 07/28/17 11:12 Dose: 320 mg A/P 67 year old woman with PMhx of COPD with respiratory failure now chroniclly on the vent, Anemia, Afib, COPD, Gastroparesis, Hypothrydism who presented with Fever and SOB and found to have Sepsis syndrome and suspected PNA with MARLYN and Hyperkalemia. #Acute Renal Failure with hyperkalemia secondary to renal hypoprofusion in setting of Sepsis/ARB Renal function improved and stable pt now on full dose ARB and renal function remains stable would trend BUN/Cr routinely as a outpatient stable for d/c from renal perspective Fernando Douglas DO Problem List - Problems (1) Fever Code(s): R50.9 - FEVER, UNSPECIFIED Qualifiers: Fever type: due to other condition Qualified Code(s): R50.81 - Fever presenting with conditions classified elsewhere (2) A-fib Code(s): I48.91 - UNSPECIFIED ATRIAL FIBRILLATION Qualifiers: Atrial fibrillation type: paroxysmal Qualified Code(s): I48.0 - Paroxysmal atrial fibrillation (3) Acute and chronic respiratory failure with hypoxia Code(s): J96.21 - ACUTE AND CHRONIC RESPIRATORY FAILURE WITH HYPOXIA (4) Dehydration Code(s): E86.0 - DEHYDRATION (5) Hyperkalemia Code(s): E87.5 - HYPERKALEMIA (6) Acute renal failure Code(s): N17.9 - ACUTE KIDNEY FAILURE, UNSPECIFIED
== END 2017-07-28 16:50 | DRG 870 ==
LOC: JER 11:34 → JERBED 16:00 → JICU 18:50 → J5S 07-22 00:55
PROVIDERS: ADMIT Family Medicine; ATTEND Family Medicine
PROC: 5A1955Z Respiratory Ventilation, Greater than 96 Consecutive Hours (ICD-10-PCS; principal; 2017-07-19)
PROC: 30233H1 Transfusion of Nonautologous Whole Blood into Peripheral Vein, Percutaneous Approach (ICD-10-PCS; 2017-07-19)
PROC: 0B21XFZ Change Tracheostomy Device in Trachea, External Approach (ICD-10-PCS; 2017-07-20)
DX: A41.02 Sepsis due to Methicillin resistant Staphylococcus aureus (principal); J96.21 Acute and chronic respiratory failure with hypoxia; J18.9 Pneumonia, unspecified organism; E46 Unspecified protein-calorie malnutrition; N17.9 Acute kidney failure, unspecified; J44.0 Chronic obstructive pulmonary disease with (acute) lower respiratory infection; Z99.11 Dependence on respirator [ventilator] status; I50.32 Chronic diastolic (congestive) heart failure; R64 Cachexia; Z68.1 Body mass index [BMI] 19.9 or less, adult; J44.1 Chronic obstructive pulmonary disease with (acute) exacerbation; J95.03 Malfunction of tracheostomy stoma; I95.9 Hypotension, unspecified; D72.829 Elevated white blood cell count, unspecified; K31.84 Gastroparesis; E03.9 Hypothyroidism, unspecified; Z87.891 Personal history of nicotine dependence; D64.9 Anemia, unspecified; Z51.89 Encounter for other specified aftercare; E87.5 Hyperkalemia; R65.20 Severe sepsis without septic shock; D47.3 Essential (hemorrhagic) thrombocythemia; Z79.01 Long term (current) use of anticoagulants; E86.1 Hypovolemia; I48.0 Paroxysmal atrial fibrillation; Z16.24 Resistance to multiple antibiotics; Y84.8 Other medical procedures as the cause of abnormal reaction of the patient, or of later complication, without mention of misadventure at the time of the procedure; Y92.230 Patient room in hospital as the place of occurrence of the external cause; Z99.81 Dependence on supplemental oxygen
CPT/HCPCS: 36415; 36430; 36511; 36600; 71010-TC; 74230-TC; 76700-TC; 80048; 80053; 80061; 81003; 82150; 82607; 82728; 82746; 82784; 82803; 83540; 83550; 83605; 83615; 83690; 83721; 83735; 84100; 84155; 84165; 84443; 84484; 85025; 85027; 85044; 85610; 85651; 85730; 86140; 86334; 86850; 86900; 86901; 86922; 87040; 87070; 87077; 87081; 87086; 87186; 87205; 92611-GN; 93005; 93010; 94002; 94640; 99285-25; P9038; P9058

== ENCOUNTER 2017-08-12 17:08 | Inpatient (IN) | payer OTHER ==
[2017-08-12] MEDS ORDERED: ACETAMINOPHEN 1000 MG/100 ML VIAL (NON FORMULARY) IVPB ONE (17:48)
[2017-08-12] MEDS ORDERED: ACETAMINOPHEN INJECTION 100 ML IVPB ONE (17:58)
[2017-08-12 18:14] LABS: URINE APPEARANCE CLOUDY; URINE BILIRUBIN NEGATIVE (NEGATIVE); URINE BLOOD 3+ (NEGATIVE); URINE COLOR RED; URINE GLUCOSE (UA) NEGATIVE (NEGATIVE); URINE KETONE NEGATIVE (NEGATIVE); URINE NITRITE NEGATIVE (NEGATIVE); URINE PROTEIN 2+ (NEGATIVE); URINE UROBILINOGEN NEGATIVE mg/dL (0.2-1.0)
[2017-08-12 18:15] LABS: BASOPHIL 0.6 % (0-2.0); EOSINOPHIL 2.8 % (0-4.5); MCH 29.3 pg (25.7-33.7); MCHC 32.7 g/dl (32.0-36.0); MEAN CELL VOLUME 89.6 fl (80-96); MEAN PLT VOLUME 9.6 fl (7.5-11.1); NEUTROPHILS 81.6 % (42.8-82.8); PLATELET COUNT 340 K/MM3 (134-434); RDW 17.2 % (11.6-15.6); WHITE BLOOD COUNT 12.9 K/mm3 (4.0-10.0)
[2017-08-12 18:16] LABS: VENOUS BLOOD GAS HCO3 33.7 meq/L (19-25); VENOUS PH 7.39 (7.32-7.42)
[2017-08-12 18:27] LABS: URINE RBC 6192 /hpf (0-3); URINE WBC 234 /hpf (3-5)
[2017-08-12 18:31] LABS: INR 2.24 (0.82-1.09); PROTHROMBIN TIME (PATIENT) 25.1 SEC (9.98-11.88)
[2017-08-12 18:34] LABS: ACTIVATED PTT 39.3 SECONDS (26.9-34.4)
[2017-08-12 18:40] LABS: ALBUMIN 2.1 g/dl (3.4-5.0); ANION GAP 7 (8-16); BILIRUBIN,TOTAL 0.4 mg/dL (0.2-1.0); CALCIUM 7.7 mg/dL (8.5-10.1); CO2 33 mmol/L (21-32); CREATININE 0.4 mg/dL (0.55-1.02); GLUCOSE,RANDOM 78 mg/dL (74-106); SGOT/AST 28 U/L (15-37); SGPT/ALT 51 U/L (12-78); TOT PROT 5.7 g/dl (6.4-8.2)
[2017-08-12 18:43] LABS: ALK PHOS 92 U/L (45-117); CPK 13 IU/L (26-192); TROPONIN I < 0.02 ng/ml (0.00-0.05)
--- NOTE | 2017-08-12 18:49 | PDOC ---
History of Present Illness <Efra Jeff - Last Filed: 08/12/17 21:24> - General History Source: Patient Exam Limitations: No Limitations - History of Present Illness Initial Comments: 08/12/17 21:30 The patient is a 67 year old female resident from [facility], with a significant past medical history of anemia, afib, gastroparesis, hypothyroidism , COPD, respiratory failure s/p tracheostomy, who presents to the emergency room via EMS with a fever that began approx. a couple days ago and s/p barker catheter placement where hematuria was noted. The patient reports she has had a fever for the past couple days without any other sypmtoms, she did note an episode of chest discomfort that began this morning (now resolved). The patient denies dysuria or change in frequency. She denies nausea, vomiting or dizziness. She denies cardiac chest pain or shortness of breath. Note: EMS reports the barker catheter was placed on 08/11/2017 and reports the patient has had decreased oral intake per the halfway staff. Allergies: peas, iodinated contrast - oral and IV dye, iodine Past surgical history: Appendectomy, Tracheostomy Social History: Former smoker PCP: Dr. Dino Lopez <River Arnett - Last Filed: 08/13/17 00:29> - General Chief Complaint: Hematuria Stated Complaint: BLOOD IN THE URINE Time Seen by Provider: 08/12/17 17:47 Past History - Past Medical History Anemia: Yes Asthma: No Cancer: No Cardiac Disorders: Yes (a-fib) CVA: No COPD: Yes CHF: No Dementia: No Diabetes: No GI Disorders: Yes (GASTROPARESIS) Disorders: No HTN: No Hypercholesterolemia: No Liver Disease: No Seizures: No Thyroid Disease: Yes (HYPO) - Surgical History Abdominal Surgery: No Appendectomy: Yes Cardiac Surgery: No Cholecystectomy: Yes Lung Surgery: No Neurologic Surgery: No Orthopedic Surgery: Yes (DISC) - Immunization History Immunization Up to Date: Yes - Suicide/Smoking/Psychosocial Hx Smoking History: Unknown if ever smoked Have you smoked in the past 12 months: No If you are a former smoker, when did you quit?: 2008 Information on smoking cessation initiated: No Hx Alcohol Use: No Drug/Substance Use Hx: No Substance Use Type: None Hx Substance Use Treatment: No <Efra Jeff - Last Filed: 08/12/17 21:24> <River Arnett - Last Filed: 08/13/17 00:29> - Past Medical History Allergies/Adverse Reactions: Allergies Allergy/AdvReac Type Severity Reaction Status Date / Time peas Allergy Severe Difficulty Verified 07/19/17 12:10 Breathing Iodinated Contrast- Oral and Allergy Verified 07/19/17 12:10 IV Dye [Iodinated Contrast Media - IV Dye] iodine Allergy Verified 07/19/17 12:10 Home Medications: Ambulatory Orders Albuterol 2.5/Ipratropium 0.5 [Duoneb -] 1 neb NEB TID 02/01/16 Aspirin [Ecotrin] 81 mg PO DAILY 02/01/16 Folic Acid 1 mg PO DAILY 02/01/16 Levothyroxine [Synthroid -] 75 mcg PO DAILY 02/01/16 Lorazepam 0.5 mg PO HS 02/01/16 Mirtazapine 15 mg PO HS 02/01/16 Thiamine HCl [Vitamin B1 -] 100 mg PO DAILY 02/01/16 Vitamin B Complex Vit C No.3 [B Complex with Vitamin C] 1 each PO DAILY Ranitidine [Zantac -] 150 mg PO DAILY tablet 02/09/16 Cholestyramine/Aspartame [Questran Light Packet -] 4 gm PO BID packet 06/14/17 Acetaminophen [Tylenol .Regular Strength -] 650 mg PO Q4H PRN #0 tablet Albuterol 0.083% Nebulizer Carina [Ventolin 0.083% Nebulizer Soln -] 1 amp NEB Q4H PRN #180 amp 06/23/17 Apixaban [Eliquis -] 5 mg PO BID tablet 06/23/17 Budesonide [Pulmicort 0.25 mg Nebulizer -] 1 amp NEB BID amp 06/23/17 Melatonin 5 mg PO HS tab 06/23/17 Oxycodone HCl [Roxicodone -] 5 mg PO Q4H PRN #0 tablet MDD 6 06/23/17 Valsartan [Diovan] 320 mg PO DAILY tablet 07/27/17 Aa/Hydrolyzed Collagen, Whey [Lps Neutral Flavor Liquid] 30 ml PO BID 08/12/17 Calcium Carbonate/Vitamin D3 [Oyster Shell 500-Vit D3 200 Tb] 1 each PO DAILY Diltiazem HCl [Cardizem LA] 120 mg PO DAILY 08/12/17 Fluconazole [Diflucan -] 100 mg PO DAILY 08/12/17 Iron 325 mg PO BID 08/12/17 Lactobacillus Acidophilus [Bacid -] 1 tab PO BID 08/12/17 Levofloxacin [Levaquin] 500 mg PO DAILY 08/12/17 Pantoprazole Sodium 40 mg PO DAILY 08/12/17 Polyvinyl Alcohol [Artificial Tears] 1 drop OD DAILY 08/12/17 Review of Systems - Review of Systems Comments:: 08/12/17 21:30 Constitutional - +Fever. No weakness, HEENT: denies vision changes, sore throat Respiratory: +Dry cough (pt. states cough is typical from COPD). No sob, hemoptysis Cardiac: +Chest discomfort (resolved). Denies cardiac chest pain, palpitations, light headedness, leg swelling Abd/GI:no nausea, vomiting, blood per rectum, melena, diarrhea : +Hematuria. No dysuria, change in frequency. Musculskelatal - denies back pain, joint swelling skin - +Pain on buttocks. neurological: denies headache, numbness, focal weakness, tingling, ataxia, weakness hematologic: denies anemia, easy bruising, easy bleeding <River Arnett - Last Filed: 08/13/17 00:29> *Physical Exam - Vital Signs Last Vital Signs Temp Pulse Resp BP Pulse Ox 102.2 F H 117 H 14 118/62 99 08/12/17 18:11 08/12/17 18:30 08/12/17 18:30 08/12/17 18:30 08/12/17 18:32 <Efra Jeff - Last Filed: 08/12/17 21:24> - Vital Signs Last Vital Signs Temp Pulse Resp BP Pulse Ox 102.2 F H 117 H 14 118/62 99 08/12/17 18:11 08/12/17 18:30 08/12/17 18:30 08/12/17 18:30 08/12/17 18:32 - Physical Exam Comments: 08/12/17 21:30 GENERAL: The patient is awake, alert, and fully oriented, Nontoxic - in no acute distress. HEAD: Normocephalic, atraumatic. EYES: extraocular movements intact, sclera anicteric, conjunctiva clear. ENT: +Tracheostomy. NECK: Normal range of motion, supple without lymphadenopathy, JVD, or masses. LUNGS: Breath sounds equal, clear to auscultation bilaterally. No wheezes, no crackles, no rales. HEART: Regular rate and rhythm, normal S1 and S2 without murmur, rub or gallop. ABDOMEN: Soft, nontender, normoactive bowel sounds. No guarding, no rebound. No masses. : +Barker catheter. EXTREMITIES: Normal range of motion, no edema. No clubbing or cyanosis. No cords, erythema, or tenderness. NEUROLOGICAL: No facial assymetry, Normal speech, normal gait. PSYCH: Normal mood, normal affect. SKIN: +Stage 2 sacral decubitus ulcer. Warm, Dry. <River Arnett - Last Filed: 08/13/17 00:29> Heart Score/ECG Review - ECG Impressions Comment:: 08/12/17 19:20 Twelve-lead EKG was performed and reviewed by me. There is normal sinus rhythm with a rate of 117 The axis is normal. The intervals are normal. There is normal R wave progression There are no ST or T wave abnormalities. Impression: Sinus tachycardia <Efra Jeff - Last Filed: 08/12/17 21:24> ED Treatment Course - LABORATORY CBC & Chemistry Diagram: 08/12/17 18:00 08/12/17 18:00 - ADDITIONAL ORDERS Additional order review: Laboratory Results 08/12/17 08/12/17 18:10 18:00 VBG pH 7.39 POC VBG pCO2 57.2 H POC VBG pO2 27.9 L D Mixed VBG HCO3 33.7 H Urine Color Red Urine Appearance Cloudy Urine pH 8.0 D Urine Protein 2+ H Urine Glucose (UA) Negative Urine Ketones Negative Urine Blood 3+ H Urine Nitrite Negative Urine Bilirubin Negative Urine Urobilinogen Negative Urine RBC 6192 Urine WBC 234 Ur Epithelial Cells Rare 08/12/17 18:00 RBC 2.54 L D MCV 89.6 MCHC 32.7 RDW 17.2 H MPV 9.6 D Neutrophils % 81.6 Lymphocytes % 8.2 D Monocytes % 6.8 D Eosinophils % 2.8 D Basophils % 0.6 - RADIOLOGY Radiology Studies Ordered: Category Date Time Status CHEST X-RAY PORTABLE* [RAD] Stat Radiology 08/12/17 17:48 Taken - Medications Given in the ED: ED Medications Discontinued Medications Generic Name Dose Route Start Last Admin Trade Name Lucio PRN Reason Stop Dose Admin Acetaminophen 1,000 mg 08/12/17 17:48 08/12/17 18:03 Ofirmev Injection - IVPB 08/12/17 17:49 1,000 mg ONCE ONE Administration <Efra Jeff - Last Filed: 08/12/17 21:24> - LABORATORY CBC & Chemistry Diagram: 08/12/17 21:26 08/12/17 18:00 - ADDITIONAL ORDERS Additional order review: Laboratory Results 08/12/17 08/12/17 08/12/17 18:10 18:00 18:00 PT with INR INR PTT (Actin FS) VBG pH 7.39 POC VBG pCO2 57.2 H POC VBG pO2 27.9 L D Mixed VBG HCO3 33.7 H Sodium Potassium Chloride Carbon Dioxide Anion Gap BUN Creatinine Creat Clearance w eGFR Random Glucose Lactic Acid 0.6 Calcium Total Bilirubin AST ALT Alkaline Phosphatase Creatine Kinase Troponin I Total Protein Albumin Urine Color Urine Appearance Urine pH Urine Protein Urine Glucose (UA) Urine Ketones Urine Blood Urine Nitrite Urine Bilirubin Urine Urobilinogen Urine RBC Urine WBC Ur Epithelial Cells Blood Type O POSITIVE Antibody Screen Negative 08/12/17 08/12/17 08/12/17 18:00 18:00 18:00 PT with INR 25.10 H INR 2.24 H D PTT (Actin FS) 39.3 H VBG pH POC VBG pCO2 POC VBG pO2 Mixed VBG HCO3 Sodium 132 L Potassium 4.7 Chloride 92 L Carbon Dioxide 33 H Anion Gap 7 L BUN 12 D Creatinine 0.4 L Creat Clearance w eGFR > 60 Random Glucose 78 Lactic Acid Calcium 7.7 L Total Bilirubin 0.4 D AST 28 D ALT 51 D Alkaline Phosphatase 92 Creatine Kinase 13 L Troponin I < 0.02 Total Protein 5.7 L Albumin 2.1 L Urine Color Red Urine Appearance Cloudy Urine pH 8.0 D Urine Protein 2+ H Urine Glucose (UA) Negative Urine Ketones Negative Urine Blood 3+ H Urine Nitrite Negative Urine Bilirubin Negative Urine Urobilinogen Negative Urine RBC 6192 Urine WBC 234 Ur Epithelial Cells Rare Blood Type Antibody Screen 08/12/17 18:00 RBC 2.54 L D MCV 89.6 MCHC 32.7 RDW 17.2 H MPV 9.6 D Neutrophils % 81.6 Lymphocytes % 8.2 D Monocytes % 6.8 D Eosinophils % 2.8 D Basophils % 0.6 - Medications Given in the ED: ED Medications Discontinued Medications Generic Name Dose Route Start Last Admin Trade Name Lucio PRN Reason Stop Dose Admin Acetaminophen 1,000 mg 08/12/17 17:48 08/12/17 18:03 Ofirmev Injection - IVPB 08/12/17 17:49 1,000 mg ONCE ONE Administration <River Arnett - Last Filed: 08/13/17 00:29> Medical Decision Making - Medical Decision Making 08/12/17 19:17 67y F h xof copd, chronic respiratory failure s/p trach, afib, gastroparesis, presents with fever. pt denies any complaints, but pt had a barker placed due to failure to thrive and decreased oral intake. pt endorsed ome burning chets pain this am but has since resolved. no associated abd pain, worse cough, diarrhea. on exam the pt is in no distress, has some excorations/stage 2 decubitus ulcer in sacrum sepsis yoly r/o pna, uti, possible cause from her celluitis/ulcer if ua/pna neg, will give vanc/ctx for skin infection pmd elieser A portion of this note was documented by scribe services under my direction. I have reviewed the details of the note, within reason, and agree with the documentation with the following case summary and management plan written by me 08/12/17 19:47 labs reviewed noted for anemia ua w/ hematuria will treat with vanc/cefepime based on prior urine sensitivities will admit for furhter management stable for med surg Case discussed in detail with admitting physician including history, physical exam and ancillary studies. Admitting physician has assumed care for the patient, will follow all pending diagnostics and will complete the evaluation and treatment. <Efra Jeff - Last Filed: 08/12/17 21:24> - Medical Decision Making 08/12/17 19:[address] Lopez at 7:42 pm 08/12/17 20:42 Dr. Robb returned the page at 8:30 pm <River Arnett - Last Filed: 08/13/17 00:29> *DC/Admit/Observation/Transfer - Discharge Dispostion Admit: Yes <Efra Jeff - Last Filed: 08/12/17 21:24> - Attestations Scribe Attestion: 08/12/17 21:31 Documentation prepared by River Arnett, acting as medical information specialist for Efra Jeff MD. <River Arnett - Last Filed: 08/13/17 00:29> Diagnosis at time of Disposition: Sacral decubitus ulcer, stage II, Systemic inflammatory response syndrome (SIRS ) Fever Qualifiers: Fever type: unspecified Qualified Code(s): R50.9 - Fever, unspecified Hematuria Qualifiers: Hematuria type: unspecified type Qualified Code(s): R31.9 - Hematuria, unspecified - Discharge Dispostion Condition at time of disposition: Guarded
[2017-08-12] MEDS ORDERED: CEFEPIME HCL 2 GM VIAL (RESTRICTED TO ID) IVPB ONE (19:46)
[2017-08-12] MEDS ORDERED: CEFEPIME 100 ML IVPB ONE (20:00)
[2017-08-12] MEDS ORDERED: CEFEPIME 2 GM in DEXTROSE 5%-WATER - 100 ML IVPB ONE (20:00)
[2017-08-12] MEDS ORDERED: VANCOMYCIN 1 GRAM (PRE-DOCKED) 1,000 MG/250 ML BAG IVPB ONE (20:30)
[2017-08-12] MEDS ORDERED: VANCOMYCIN 1 GRAM (PRE-DOCKED) 250 ML IVPB ONE (20:31)
[2017-08-12] MEDS ORDERED: SODIUM CHLORIDE 500 ML IV STA (20:57)
[2017-08-12 21:50] LABS: BASOPHIL 0.6 % (0-2.0); MCH 28.9 pg (25.7-33.7); MCHC 32.2 g/dl (32.0-36.0); MEAN CELL VOLUME 89.8 fl (80-96); MEAN PLT VOLUME 8.7 fl (7.5-11.1); NEUTROPHILS 79.4 % (42.8-82.8); PLATELET COUNT 312 K/MM3 (134-434); RDW 16.8 % (11.6-15.6); WHITE BLOOD COUNT 11.2 K/mm3 (4.0-10.0)
[2017-08-12] MEDS ORDERED: VANCOMYCIN 1,000 MG in DEXTROSE 5%-WATER - 250 ML IVPB SCH (22:00)
[2017-08-12 22:15] LABS: URINE LEUK ESTERASE 1+ (NEGATIVE)
[2017-08-13] MEDS ORDERED: FLU VACCINE QUAD 60 MCG/0.5 ML (MDV 17-18) IM ONE (05:31)
[2017-08-13] MEDS: ACETAMINOPHEN 325 MG TABLET (FP) PO PRN (06:16)
[2017-08-13] MEDS: LEVOTHYROXINE NA 75 MCG TABLET (FP) PO SCH (06:16)
[2017-08-13] MEDS: ALBUTEROL SO4 2.5/IPRATROPIUM 0.5 INH SOL 3 ML VIAL.NEB. NEB PRN (06:58)
[2017-08-13] MEDS ORDERED: PT OWN MED DRAWER 7, Y5N ONE ×2 (09:48→20:15)
[2017-08-13] MEDS: FERROUS SO4 325 MG TABLET (FP) PO SCH (09:52)
[2017-08-13] MEDS: RANITIDINE HCL 150 MG TABLET (FP) PO SCH (09:52)
[2017-08-13] MEDS: LACTOBACILLUS ACIDOPHILUS 1 EACH TAB (FP) PO SCH (09:52)
[2017-08-13] MEDS: RANOLAZINE E.R. 500 MG TABLET (FP) PO SCH ×2 (09:52→21:31)
[2017-08-13] MEDS: THIAMINE HCL 100 MG TABLET (FP) PO SCH (09:52)
[2017-08-13] MEDS: VALSARTAN 160 MG TABLET (UD) PO SCH (09:53)
[2017-08-13] MEDS ORDERED: ASPIRIN COATED 81 MG TABLET.EC PO SCH (10:00)
[2017-08-13] MEDS ORDERED: HEPARIN NA (PORCINE) 5,000 UNITS/ML 1ML VIAL SQ SCH (10:00)
--- NOTE | 2017-08-13 10:50 | HP ---
Admitting History and Physical - Primary Care Physician PCP: Dino Lopez - Admission Chief Complaint: HEMATUREA/AMS History of Present Illness: The patient is a 67 year old female resident from [facility], with a significant past medical history of anemia, afib, gastroparesis, hypothyroidism , COPD, respiratory failure s/p tracheostomy, who presents to the emergency room via EMS with a fever that began approx. a couple days ago and s/p barker catheter placement where hematuria was noted. The patient reports she has had a fever for the past couple days without any other sypmtoms, she did note an episode of chest discomfort that began this morning (now resolved). The patient denies dysuria or change in frequency. She denies nausea, vomiting or dizziness. She denies cardiac chest pain or shortness of breath. History Source: Medical Record Limitations to Obtaining History: Physical Impairment, Poor Historian - Past Medical History USABILITY ARCHITECT: Yes: CVA, Other (poor short term memory) Cardiovascular: Yes: AFIB, HTN Pulmonary: Yes: COPD, Previously Intubated, Other (RESPIRATORY FAILURE) Heme/Onc: Yes: Hypercoaguable State Infectious Disease: Yes: C-Diff Endocrine: Yes: Hypothyroidism - Past Surgical History Past Surgical History: Yes: Appendectomy - Smoking History Smoking history: Unknown if ever smoked Have you smoked in the past 12 months: No If you are a former smoker, when did you quit?: 2008 - Alcohol/Substance Use Hx Alcohol Use: No History of Substance Use: reports: None - Social History ADL: Family Assistance History of Recent Travel: No Home Medications - Allergies Allergies/Adverse Reactions: Allergies Allergy/AdvReac Type Severity Reaction Status Date / Time peas Allergy Severe Difficulty Verified 07/19/17 12:10 Breathing Iodinated Contrast- Oral and Allergy Verified 07/19/17 12:10 IV Dye [Iodinated Contrast Media - IV Dye] iodine Allergy Verified 07/19/17 12:10 - Home Medications Home Medications: Ambulatory Orders Albuterol 2.5/Ipratropium 0.5 [Duoneb -] 1 neb NEB TID 02/01/16 Aspirin [Ecotrin] 81 mg PO DAILY 02/01/16 Folic Acid 1 mg PO DAILY 02/01/16 Levothyroxine [Synthroid -] 75 mcg PO DAILY 02/01/16 Lorazepam 0.5 mg PO HS 02/01/16 Mirtazapine 15 mg PO HS 02/01/16 Thiamine HCl [Vitamin B1 -] 100 mg PO DAILY 02/01/16 Vitamin B Complex Vit C No.3 [B Complex with Vitamin C] 1 each PO DAILY Ranitidine [Zantac -] 150 mg PO DAILY tablet 02/09/16 Cholestyramine/Aspartame [Questran Light Packet -] 4 gm PO BID packet 06/14/17 Acetaminophen [Tylenol .Regular Strength -] 650 mg PO Q4H PRN #0 tablet Albuterol 0.083% Nebulizer Carina [Ventolin 0.083% Nebulizer Soln -] 1 amp NEB Q4H PRN #180 amp 06/23/17 Apixaban [Eliquis -] 5 mg PO BID tablet 06/23/17 Budesonide [Pulmicort 0.25 mg Nebulizer -] 1 amp NEB BID amp 06/23/17 Melatonin 5 mg PO HS tab 06/23/17 Oxycodone HCl [Roxicodone -] 5 mg PO Q4H PRN #0 tablet MDD 6 06/23/17 Valsartan [Diovan] 320 mg PO DAILY tablet 07/27/17 Aa/Hydrolyzed Collagen, Whey [Lps Neutral Flavor Liquid] 30 ml PO BID 08/12/17 Calcium Carbonate/Vitamin D3 [Oyster Shell 500-Vit D3 200 Tb] 1 each PO DAILY Diltiazem HCl [Cardizem LA] 120 mg PO DAILY 08/12/17 Fluconazole [Diflucan -] 100 mg PO DAILY 08/12/17 Iron 325 mg PO BID 08/12/17 Lactobacillus Acidophilus [Bacid -] 1 tab PO BID 08/12/17 Levofloxacin [Levaquin] 500 mg PO DAILY 08/12/17 Pantoprazole Sodium 40 mg PO DAILY 08/12/17 Polyvinyl Alcohol [Artificial Tears] 1 drop OD DAILY 08/12/17 Review of Systems - Review of Systems Constitutional: reports: Loss of Appetite, Weakness Eyes: reports: No Symptoms HENT: reports: No Symptoms Neck: reports: No Symptoms Cardiovascular: reports: No Symptoms Respiratory: reports: No Symptoms Gastrointestinal: reports: No Symptoms Genitourinary: reports: Hematuria Musculoskeletal: reports: Muscle Weakness Integumentary: reports: No Symptoms Neurological: reports: No Symptoms Endocrine: reports: No Symptoms Hematology/Lymphatic: reports: No Symptoms Psychiatric: reports: No Symptoms Physical Examination Vital Signs: Vital Signs Temperature 96.7 F L 08/13/17 09:44 Pulse Rate 84 08/13/17 09:44 Respiratory Rate 16 08/13/17 09:44 Blood Pressure 121/62 08/13/17 09:44 O2 Sat by Pulse Oximetry (%) 98 08/13/17 00:29 Constitutional: Yes: Mild Distress Eyes: Yes: WNL HENT: Yes: WNL Neck: Yes: WNL Cardiovascular: Yes: WNL Respiratory: Yes: Mechanically Ventilated Gastrointestinal: Yes: WNL Renal/: Yes: Barker Present Musculoskeletal: Yes: Muscle Weakness Extremities: Yes: WNL Edema: No Peripheral Pulses WNL: Yes Integumentary: Yes: WNL Wound/Incision: Yes: Clean/Dry Neurological: Yes: Pre-Existing Deficit, Weakness ...Motor Strength: LLE, RLE Psychiatric: Yes: Other Labs: CBC, BMP 08/12/17 21:26 Problem List - Problems (1) Fever Code(s): R50.9 - FEVER, UNSPECIFIED Qualifiers: Fever type: unspecified Qualified Code(s): R50.9 - Fever, unspecified; R50.9 - Fever, unspecified (2) Hematuria Code(s): R31.9 - HEMATURIA, UNSPECIFIED Qualifiers: Hematuria type: unspecified type Qualified Code(s): R31.9 - Hematuria, unspecified; R31.9 - Hematuria, unspecified (3) Sacral decubitus ulcer, stage II Code(s): L89.152 - PRESSURE ULCER OF SACRAL REGION, STAGE 2 (4) A-fib Code(s): I48.91 - UNSPECIFIED ATRIAL FIBRILLATION Qualifiers: (5) Acute on chronic respiratory failure with hypoxia and hypercapnia Code(s): J96.21 - ACUTE AND CHRONIC RESPIRATORY FAILURE WITH HYPOXIA J96.22 - ACUTE AND CHRONIC RESPIRATORY FAILURE WITH HYPERCAPNIA (6) Chronic respiratory failure with hypoxia Code(s): J96.11 - CHRONIC RESPIRATORY FAILURE WITH HYPOXIA Assessment/Plan HEMATUREA WILL NEED TO BE ON AC FOR AFIB ID CONSULT IVF MONITOR LABS CULTURES OBTAINED TRANSFUSE PRBC
[2017-08-13 11:23] LABS: MCH 29.6 pg (25.7-33.7); MCHC 33.2 g/dl (32.0-36.0); MEAN CELL VOLUME 89.2 fl (80-96); MEAN PLT VOLUME 8.3 fl (7.5-11.1); PLATELET COUNT 361 K/MM3 (134-434); RDW 15.7 % (11.6-15.6); WHITE BLOOD COUNT 8.7 K/mm3 (4.0-10.0)
--- NOTE | 2017-08-13 11:48 | PN ---
Progress Note (short form) - Note Progress Note: PULMONARY CONSULTATION DICTATED 08/13/17 IMP ACUTE ON CHRONIC HYPOXEMIC/HYPERCAPNEIC RESPIRATORY FAILURE FEVER ANEMIA COPD AFIB HEMATURIA DIASTOLIC HF PLAN VENT SUPPORT ON AC MODE CHECK ABG INHALED BRONCHODILATORS TRANSFUSE ANTIBIOTICS PER ID MONITOR H+H STOOL GUIACS DR RAGLAND Problem List - Problems (1) Fever Code(s): R50.9 - FEVER, UNSPECIFIED Qualifiers: Fever type: unspecified Qualified Code(s): R50.9 - Fever, unspecified; R50.9 - Fever, unspecified (2) Hematuria Code(s): R31.9 - HEMATURIA, UNSPECIFIED Qualifiers: Hematuria type: unspecified type Qualified Code(s): R31.9 - Hematuria, unspecified; R31.9 - Hematuria, unspecified (3) Sacral decubitus ulcer, stage II Code(s): L89.152 - PRESSURE ULCER OF SACRAL REGION, STAGE 2 (4) A-fib Code(s): I48.91 - UNSPECIFIED ATRIAL FIBRILLATION Qualifiers: (5) Acute on chronic respiratory failure with hypoxia and hypercapnia Code(s): J96.21 - ACUTE AND CHRONIC RESPIRATORY FAILURE WITH HYPOXIA J96.22 - ACUTE AND CHRONIC RESPIRATORY FAILURE WITH HYPERCAPNIA (6) Anemia Code(s): D64.9 - ANEMIA, UNSPECIFIED Qualifiers: Anemia type: unspecified type Qualified Code(s): D64.9 - Anemia, unspecified; D64.9 - Anemia, unspecified (7) COPD (chronic obstructive pulmonary disease) Code(s): J44.9 - CHRONIC OBSTRUCTIVE PULMONARY DISEASE, UNSPECIFIED Qualifiers : COPD type: unspecified COPD Qualified Code(s): J44.9 - Chronic obstructive pulmonary disease, unspecified; J44.9 - Chronic obstructive pulmonary disease, unspecified; J44.9 - Chronic obstructive pulmonary disease, unspecified; J44.9 - Chronic obstructive pulmonary disease, unspecified (8) Chest pain Code(s): R07.9 - CHEST PAIN, UNSPECIFIED Qualifiers: Chest pain type: pleurodynia Qualified Code(s): R07.81 - Pleurodynia ; R07.81 - Pleurodynia (9) Diastolic heart failure Code(s): I50.30 - UNSPECIFIED DIASTOLIC (CONGESTIVE) HEART FAILURE Qualifiers : Heart failure chronicity: chronic Qualified Code(s): I50.32 - Chronic diastolic (congestive) heart failure; I50.32 - Chronic diastolic ( congestive) heart failure; I50.32 - Chronic diastolic (congestive) heart failure ; I50.32 - Chronic diastolic (congestive) heart failure (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
[2017-08-13 11:51] LABS: ANION GAP 5 (8-16); CALCIUM 8.3 mg/dL (8.5-10.1); CO2 33 mmol/L (21-32); CREATININE 0.3 mg/dL (0.55-1.02); GLUCOSE,RANDOM 82 mg/dL (74-106)
--- NOTE | 2017-08-13 12:24 | PN ---
Progress Note (short form) - Note Progress Note: ID consult dictated imp/reccd fever to 102 in [place] hematuria- barker placed, started on [place]quin [place] anemia s/p transfusion transferred to ED last night for hypotension, tachycardia she received vancomycin and cefepime last night she is s/p blood transfusion no gross hematuria noted now denies chest/abdominal pain history of VRE rectal colonization-contact isolation fungal rash- continue po diflucan prior cultures reviewed from July fevers- suspect UTI continue cefepime f/u cultures chronic resp failure- cxray is stable, vent management per pulmonary Problem List - Problems (1) Fever Code(s): R50.9 - FEVER, UNSPECIFIED Qualifiers: Fever type: unspecified Qualified Code(s): R50.9 - Fever, unspecified; R50.9 - Fever, unspecified (2) UTI (urinary tract infection) Code(s): N39.0 - URINARY TRACT INFECTION, SITE NOT SPECIFIED
[2017-08-13] MEDS: CHOLESTYRAMINE/ASPARTAME 4 GM PACKET PO SCH (12:33)
[2017-08-13] MEDS: APIXABAN 5 MG TABLET PO SCH ×2 (12:34→21:31)
[2017-08-13] MEDS ORDERED: CEFEPIME HCL 1 GM VIAL (RESTRICTED TO ID) IVPB SCH (12:45)
--- NOTE | 2017-08-13 12:46 | CONS ---
DATE OF CONSULTATION: 08/13/2017 REFERRING PHYSICIAN: Heydi Robb MD HISTORY OF PRESENT ILLNESS: The patient is a 67-year-old white female known to me from previous hospitalizations as well as skilled nursing followup. She has a past medical history of chronic respiratory failure on ventilatory support, anemia, atrial fibrillation, gastroparesis, hypothyroidism, COPD, history of hypercoagulable state. She was transferred to [facility] on August 12, 2017, secondary to 2-3-day history of fever. Patient apparently the past couple of days had a fever at the skilled nursing. Apparently, she also complained of chest discomfort that began the morning of admission, which resolved. Patient presented to the emergency room with the above. On admission, she was placed on broad spectrum antibiotics. On admission, she was noted to be markedly anemic with a hemoglobin of 6.5 g. Patient has no further history available at this time. PAST MEDICAL HISTORY: Includes COPD, chronic hypoxemic hypercapnic respiratory failure on ventilatory support, history of gastroparesis, atrial fibrillation, hypothyroidism, anemia, history of hematuria. REVIEW OF SYSTEMS: Unable to obtain at this time. CURRENT MEDICATIONS: Include Tylenol, Diovan, Eliquis, Remeron, Bacid, Ativan, Duo-Neb, Questran, Cardizem CD, Ranexa, Zantac, Feosol, Roxicodone, Synthroid, vitamin B1. PHYSICAL EXAMINATION: General: The patient is a chronically ill-appearing white female, thin, well-developed, on ventilatory support. Vital signs: She is currently afebrile, blood pressure 121/62, respiratory rate 16, O2 saturation is 95% on assist control mode. HEENT: Head is normocephalic atraumatic. Neck: Supple. Trachea patent Heart: Irregularly irregular, normal S1, S2. Chest: Scattered bilateral rhonchi. Abdomen: Soft. Bowel sounds positive. Extremities: No cyanosis or edema. LABORATORIES: WBC is 11.2, hemoglobin 6.5, hematocrit with a platelet count of 312,000. INR is 2.24. VBG is 7.39, pCO2 of 57, pO2 of 27, bicarbonate of 33. BUN 12, creatinine 0.4. Chest x-ray reveals no acute infiltrates or effusions. IMPRESSION: 1. Acute on chronic hypercapnic hypoxemic respiratory failure secondary to chronic obstructive pulmonary disease. 2. Fever, etiology to be determined. 3. Atrial fibrillation. 4. Decubitus ulcer. 5. Hematuria. 6. Anemia. PLAN: Continue ventilatory support on assist control mode. Will check arterial blood gas. Broad spectrum antibiotic coverage as per ID. Obtain cultures. Transfuse. Monitor hemoglobin and hematocrit. PATRIZIA RAGLAND M.D. [id number]
--- NOTE | 2017-08-13 13:02 | CONS ---
DATE OF CONSULTATION: DATE OF DICTATION: 08/13/2017 REQUESTED BY: Dino Lopez MD HISTORY OF PRESENT ILLNESS: This is a 67-year-old woman with a history of chronic respiratory failure. She is status post tracheostomy and is on [facility] the [facility], admitted with fever and anemia. She had a Nelson apparently placed at the prison and was found to have VRE. She was started on Levaquin at the prison. She then had a fever of 102 and became tachycardic with a low blood pressure. She was noted to be anemic and transferred to the emergency room. She is awake and alert. She has no nausea, vomiting. She denies chest pain or abdominal pain. She does note she has had fever. I am asked to see her for antibiotic recommendations. In the emergency room, she received vancomycin and cefepime. She had a fever on the emergency room of 102.2. PAST MEDICAL HISTORY: Notable for a history of anemia, atrial fibrillation, COPD, gastroparesis, hypothyroidism. She is status post appendectomy and cholecystectomy. She has had lumbar disk surgery and she has chronic respiratory failure, status post tracheostomy. ALLERGIES: She is allergic to IODINE. MEDICATIONS AT THE LONG-TERM: Include Duo-Neb, Ecotrin, folic acid, Synthroid, lorazepam, mirtazapine, thiamin, vitamin B, Zantac, Questran, albuterol, Eliquis, Pulmicort, melatonin, valsartan, Diovan, Diflucan, Cardizem, iron, Bacid. She was started on Levaquin on August 11 and Protonix. REVIEW OF SYSTEMS: She denies any diarrhea or abdominal pain. She denies any shortness of breath. PHYSICAL EXAMINATION: Vital Signs: Her T-max was 102.2, current temperature is 96.7, pulse of 90, blood pressure is 121/62, respiratory rate 16, she is saturating 95%. HEENT: She is normocephalic. Her eyes are anicteric. Neck: Supple. She has a tracheostomy in place. Heart: Regular rate and rhythm. Lungs: Have diminished breath sounds at the bases. Abdomen: Soft, nontender. Extremities: Without edema. Skin: She has some sacral erythema with a fungal rash noted on both her sacrum as well as her vaginal area. Genitourinary: She has a Nelson intact. LABORATORIES: Her white count on admission was 21.9 with a hemoglobin of 7.4 that dropped to 6.5. This morning, her white count is 8.7 with a hemoglobin of 9.3, platelets are 361. BUN is 11 and creatinine is 0.3. LFTs are normal and cultures are pending. She is known to have rectal colonization with VRE. Urine culture on the last admission was negative and sputum culture grew a group G strep and a Providencia which was sensitive to cefepime. Chest x-ray is stable and shows no acute infiltrate. ASSESSMENT: In summary, this is a 67-year-old woman admitted with fever, hematuria, anemia. She is status post transfusion and her fevers have resolved. She was started on vancomycin and cefepime in the emergency room. Will continue cefepime at this time for presumptive urinary tract infection given her clinical improvement. 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 As well, she has chronic respiratory failure. Chest x-ray is stable. Ventilator management per Pulmonary. Lastly, she has a fungal rash and should continue on Diflucan. Further recommendations to follow. SUKHDEV STONE M.D. [id number]
[2017-08-13] MEDS ORDERED: CEFEPIME HCL 1 GM VIAL (RESTRICTED TO ID) ONE ×2 (13:18→20:16)
[2017-08-13] MEDS ORDERED: DEXTROSE 5%-WATER 100 ML IVPB ONE ×2 (13:18→20:16)
[2017-08-13] MEDS: CEFEPIME 1 GM in DEXTROSE 5%-WATER 100 ML IVPB SCH ×2 (13:51→21:30)
[2017-08-13] MEDS ORDERED: ACETAMINOPHEN 650 MG SUPP.RECT PR ONE (18:29)
--- NOTE | 2017-08-13 18:49 | HOSP ---
Subjective - Review of Symptoms General: No: Chills, Night Sweats, Fatigue, Malaise, Appetite, Other HEENT: No: Head Aches, Visual Changes, Eye Pain, Ear Pain, Dysphasia, Sinus Congestion, Post Nasal Drip, Sore Throat, Other Pulmonary: Yes: Dyspnea Cardiovascular: No: Chest Pain, Palpitations, Orthopnea, Paroxysmal Noc. Dyspnea , Edema, Light Headedness, Other Gastrointestinal: No: Nausea, NOSYM, Vomiting, Abdominal Pain, Diarrhea, Constipation, Melena, Hematochezia, Other Genitourinary: No: Dysuria, NOSYM, Frequency, Incontinence, Hematuria, Retention , Other Musculoskeletal: No: No Symptoms, Back Pain, Crepitus, Decreased ROM, Extremity Pain, Joint Pain, Joint Swelling, Muscle Pain, Muscle Cramps, Muscle Weakness, Other Neurological: No: Weakness, Numbness, Incoordination, Change in speech, Confusion, Seizures, Other Physical Examination Vital Signs: Vital Signs Temperature 102.4 F H 08/13/17 18:28 Pulse Rate 105 H 08/13/17 18:28 Respiratory Rate 24 08/13/17 18:28 Blood Pressure 179/63 08/13/17 18:28 O2 Sat by Pulse Oximetry (%) 95 08/13/17 11:06 Constitutional: Yes: Mild Distress HENT: Yes: WNL Neck: Yes: WNL Cardiovascular: Yes: Tachycardia, Pulse Irregular Respiratory: Yes: Accessory Muscle Use, Mechanically Ventilated, SOB. No: Rales , Wheezes Gastrointestinal: Yes: WNL Musculoskeletal: Yes: WNL Labs: CBC, BMP 08/13/17 11:20 08/13/17 11:20 Hospitalist Encounter Assessment: MD called to evaluate this 67F w/ hx of COPD s/p trach and a-fib w/ multiple other co-morbidities admitted for fever, anemia, UTI, and hematuria, who developed acute SOB. Pt denies chest pain, headache, n/v/d/c/, dysuria and any other complaints. Vitals show a fever of 101.8, BP of 160/70, HR of 24, O2 sat of 99% on vent settings (RR 12, TV 400, FIo2 45%). Pt is elderly female lying in bed in mild distress, using some accessory muscles for breathing. Cardiac exam showed tachycardia with an irregularly irregular rhythm. Pulmonary exam showed mechanical lung sounds, unable to appreciate any rales or wheezing. A stat CXR, ABG, and APAP were ordered. A&P: SOB 2/2 sepsis w/ underlying COPD s/p trach. fever of 101.8 explains the tachycardia. HTN can be 2/2 anxiety. Bcx and Ucx already pending from yesterday. -f/u CXR and ABG -1g of vancomycin given -APAP given Visit type - Emergency Visit Emergency Visit: Yes ED Registration Date: 08/12/17 Care time: The patient presented to the Emergency Department on the above date and was hospitalized for further evaluation of their emergent condition. - New Patient This patient is new to me today: Yes Date on this admission: 08/17/17 - Critical Care Critical Care patient: No
[2017-08-13 18:52] LABS: ARTERIAL BLD GAS O2 SATURATION 98.2 % (90-98.9); ARTERIAL BLOOD GAS BASE EXCESS 3.7 meq/l (-2-2); ARTERIAL BLOOD GAS HCO3 28.2 meq/L (22-26); ARTERIAL BLOOD GAS pH 7.39 (7.35-7.45)
[2017-08-13 18:53] LABS: ALLENS TEST POSITIVE; ART PUNCT SITE LEFT RADIAL; LPM/O2% 45%; PT. ON O2? YES; TYPE OF O2 OT
[2017-08-13 18:54] LABS: MECH. VENT. ESPRIT; PT'S TEMP 102; VENT RATE 12; VT/PRESS 400
--- NOTE | 2017-08-13 19:10 | EKG ---
Test Reason : Blood Pressure : / mmHG Vent. Rate : 117 BPM Atrial Rate : 117 BPM P-R Int : 138 ms QRS Dur : 068 ms QT Int : 330 ms P-R-T Axes : 082 008 066 degrees QTc Int : 460 ms POOR DATA QUALITY, INTERPRETATION MAY BE ADVERSELY AFFECTED SINUS TACHYCARDIA CANNOT EVALUATE V2 LOW VOLTAGE QRS BORDERLINE ECG WHEN COMPARED WITH ECG OF 19-JUL-2017 18:22, PREMATURE VENTRICULAR COMPLEXES ARE NO LONGER REPEAT EKG Confirmed by DONALD MARTINES MD ([id number]) on 08/13/2017 7:09:27 PM Referred By: Confirmed By:DONALD MARTINES MD
--- NOTE | 2017-08-13 19:19 | PN ---
Progress Note (short form) - Note Progress Note: ADDENDUM: PATIENT ON ASA, ELIQUIS AND HEPARIN STOP HEPARIN , WILL STOP ASA, CONTINUE ELIQUIS FOR NOW B/C OF AFIB MONITOR H/H, REPEAT CBC IN MORNING. IV ABX FOR FEVER AND SEPSIS WORJUP IF H/H CONTINUES TO DROP WILL NEED ANEMIA WORKUP(STOOL GUAC) THEN DISCUSS BENEFITS VS RISK OF AC. Problem List - Problems (1) Fever Code(s): R50.9 - FEVER, UNSPECIFIED Qualifiers: Fever type: unspecified Qualified Code(s): R50.9 - Fever, unspecified; R50.9 - Fever, unspecified (2) Hematuria Code(s): R31.9 - HEMATURIA, UNSPECIFIED Qualifiers: Hematuria type: unspecified type Qualified Code(s): R31.9 - Hematuria, unspecified; R31.9 - Hematuria, unspecified (3) Sacral decubitus ulcer, stage II Code(s): L89.152 - PRESSURE ULCER OF SACRAL REGION, STAGE 2 (4) A-fib Code(s): I48.91 - UNSPECIFIED ATRIAL FIBRILLATION Qualifiers: (5) Acute on chronic respiratory failure with hypoxia and hypercapnia Code(s): J96.21 - ACUTE AND CHRONIC RESPIRATORY FAILURE WITH HYPOXIA J96.22 - ACUTE AND CHRONIC RESPIRATORY FAILURE WITH HYPERCAPNIA (6) Chronic respiratory failure with hypoxia Code(s): J96.11 - CHRONIC RESPIRATORY FAILURE WITH HYPOXIA
[2017-08-13] MEDS ORDERED: VANCOMYCIN 1 GRAM (PRE-DOCKED) 1,000 MG/250 ML BAG IVPB ONE (19:32)
[2017-08-13] MEDS ORDERED: ALBUTEROL SO4 2.5/IPRATROPIUM 0.5 INH SOL 3 ML VIAL.NEB. NEB ONE (19:33)
[2017-08-13] MEDS: MIRTAZAPINE 15 MG TABLET (FP) PO SCH (21:32)
[2017-08-13] MEDS: LORazepam 0.5 MG TABLET PO PRN (21:32)
[2017-08-14] MEDS: ACETAMINOPHEN 325 MG TABLET (FP) PO PRN ×2 (02:35→17:21)
[2017-08-14] MEDS: LEVOTHYROXINE NA 75 MCG TABLET (FP) PO SCH (06:36)
[2017-08-14 08:37] LABS: MCH 29.4 pg (25.7-33.7); MCHC 33.1 g/dl (32.0-36.0); MEAN PLT VOLUME 8.9 fl (7.5-11.1); PLATELET COUNT 425 K/MM3 (134-434); RDW 16.2 % (11.6-15.6); WHITE BLOOD COUNT 7.9 K/mm3 (4.0-10.0)
[2017-08-14 09:02] LABS: ALBUMIN 2.1 g/dl (3.4-5.0); ANION GAP 11 (8-16); CALCIUM 8.5 mg/dL (8.5-10.1); CO2 27 mmol/L (21-32); CREATININE 0.3 mg/dL (0.55-1.02); GLUCOSE,RANDOM 65 mg/dL (74-106); SGOT/AST 16 U/L (15-37); SGPT/ALT 31 U/L (12-78)
[2017-08-14 09:04] LABS: ALK PHOS 96 U/L (45-117); BILIRUBIN,TOTAL 0.5 mg/dL (0.2-1.0); TOT PROT 5.3 g/dl (6.4-8.2)
[2017-08-14] MEDS ORDERED: PT OWN MED DRAWER 7, Y5N ONE ×3 (09:36→19:31)
[2017-08-14] MEDS ORDERED: DEXTROSE 5%-WATER 100 ML IVPB ONE (09:36)
[2017-08-14] MEDS ORDERED: CEFEPIME HCL 1 GM VIAL (RESTRICTED TO ID) ONE (09:36)
[2017-08-14] MEDS: THIAMINE HCL 100 MG TABLET (FP) PO SCH (09:38)
[2017-08-14] MEDS: VALSARTAN 160 MG TABLET (UD) PO SCH ×2 (09:38→12:28)
[2017-08-14] MEDS: LACTOBACILLUS ACIDOPHILUS 1 EACH TAB (FP) PO SCH (09:38)
[2017-08-14] MEDS: RANITIDINE HCL 150 MG TABLET (FP) PO SCH (09:38)
[2017-08-14] MEDS: RANOLAZINE E.R. 500 MG TABLET (FP) PO SCH ×2 (09:38→22:17)
[2017-08-14] MEDS: FERROUS SO4 325 MG TABLET (FP) PO SCH (09:39)
[2017-08-14] MEDS: CEFEPIME 1 GM in DEXTROSE 5%-WATER 100 ML IVPB SCH (09:39)
[2017-08-14] MEDS: APIXABAN 5 MG TABLET PO SCH ×2 (09:39→22:17)
[2017-08-14] MEDS: FLUCONAZOLE 100 MG TABLET (UD) PO SCH (09:39)
[2017-08-14] MEDS: CHOLESTYRAMINE/ASPARTAME 4 GM PACKET PO SCH (09:40)
[2017-08-14] MEDS: ALBUTEROL SO4 2.5/IPRATROPIUM 0.5 INH SOL 3 ML VIAL.NEB. NEB PRN (10:31)
--- NOTE | 2017-08-14 10:55 | PN ---
Progress Note (short form) - Note Progress Note: fever tachycardia overnight now resting comfortably Vital Signs Period Temp Pulse Resp BP Sys/Parra Pulse Ox Last 24 Hr 98.8 F-102.4 F 78-107 12-24 102-179/41-70 95-100 cor-rrr lungs clear abd soft,nt ext no edema +barker CBC, BMP 08/14/17 06:45 08/14/17 06:45 Microbiology 08/13/17 23:30 Stool Clostridium difficile Antigen (TEDDY) - Final 08/13/17 23:30 Stool Clostridium difficile Toxin Assay - Final 08/12/17 18:00 Urine - Urine Barker Urine Culture - Preliminary 08/12/17 18:10 Blood - Peripheral Venous Blood Culture - Preliminary NO GROWTH OBTAINED AFTER 24 HOURS, INCUBATION TO CONTINUE FOR 4 DAYS. 08/12/17 18:00 Blood - Peripheral Venous Blood Culture - Preliminary NO GROWTH OBTAINED AFTER 24 HOURS, INCUBATION TO CONTINUE FOR 4 DAYS. imp/reccd continued fevers spoke with Micro- probable GNR in urine hematuria- barker placed at [place] anemia s/p transfusion given recurrent fever and probable uti will switch to carbapenem and f/u cultures in am chronic resp failure- on vent via trach history of VRE rectal colonization-contact isolation fungal rash- continue po diflucan Problem List - Problems (1) Fever Code(s): R50.9 - FEVER, UNSPECIFIED Qualifiers: Fever type: unspecified Qualified Code(s): R50.9 - Fever, unspecified; R50.9 - Fever, unspecified (2) UTI (urinary tract infection) Code(s): N39.0 - URINARY TRACT INFECTION, SITE NOT SPECIFIED
[2017-08-14] MEDS ORDERED: MEROPENEM 500 MG VIAL (RESTRICTED TO ID) IVPB SCH (11:00)
--- NOTE | 2017-08-14 11:56 | PN ---
Progress Note, Physician History of Present Illness: pulmonary alert,nad on vent support - Current Medication List Current Medications: Active Medications Acetaminophen (Tylenol -) 650 mg PO Q6H PRN PRN Reason: FEVER OR PAIN Last Admin: 08/14/17 02:35 Dose: 650 mg Albuterol/Ipratropium (Duoneb -) 1 amp NEB Q6H PRN PRN Reason: SHORTNESS OF BREATH Last Admin: 08/14/17 10:31 Dose: 1 amp Apixaban (Eliquis -) 5 mg PO BID [facility] Last Admin: 08/14/17 09:39 Dose: 5 mg Cholestyramine Resin (Questran Light Packet -) 4 gm PO DAILY [facility] Last Admin: 08/14/17 09:40 Dose: 4 gm Diltiazem HCl (Cardizem Cd -) 120 mg PO DAILY [facility] Last Admin: 08/13/17 09:53 Dose: 120 mg Ferrous Sulfate (Feosol -) 325 mg PO DAILY [facility] Last Admin: 08/14/17 09:39 Dose: 325 mg Fluconazole (Diflucan -) 100 mg PO DAILY [facility] Last Admin: 08/14/17 09:39 Dose: 100 mg Meropenem 500 mg/ Dextrose 100 mls @ 200 mls/hr IVPB Q8H-IV [facility] Lactobacillus Acidophilus (Bacid -) 1 tab PO DAILY [facility] Last Admin: 08/14/17 09:38 Dose: 1 tab Levothyroxine Sodium (Synthroid -) 75 mcg PO DAILY@0700 [facility] Last Admin: 08/14/17 06:36 Dose: 75 mcg Lorazepam (Ativan -) 0.5 mg PO TID PRN PRN Reason: ANXIETY Last Admin: 08/13/17 21:32 Dose: 0.5 mg Mirtazapine (Remeron -) 15 mg PO HS [facility] Last Admin: 08/13/17 21:32 Dose: 15 mg Oxycodone HCl (Roxicodone -) 5 mg PO Q6H PRN PRN Reason: PAIN Ranitidine HCl (Zantac -) 150 mg PO DAILY [facility] Last Admin: 08/14/17 09:38 Dose: 150 mg Ranolazine (Ranexa -) 500 mg PO BID [facility] Last Admin: 08/14/17 09:38 Dose: 500 mg Thiamine HCl (Vitamin B1 -) 100 mg PO DAILY [facility] Last Admin: 08/14/17 09:38 Dose: 100 mg Valsartan (Diovan -) 320 mg PO DAILY [facility] Last Admin: 08/13/17 09:53 Dose: 320 mg - Objective Vital Signs: Vital Signs Temperature 98.8 F 08/14/17 10:00 Pulse Rate 93 H 08/14/17 10:10 Respiratory Rate 14 08/14/17 10:10 Blood Pressure 106/52 08/14/17 10:00 O2 Sat by Pulse Oximetry (%) 100 08/14/17 10:27 Constitutional: Yes: Well Nourished, Calm Eyes: Yes: WNL HENT: Yes: WNL Neck: Yes: Supple Cardiovascular: Yes: Regular Rate and Rhythm, S1, S2 Respiratory: Yes: CTA Bilaterally Gastrointestinal: Yes: Normal Bowel Sounds, Soft Extremities: Yes: WNL Edema: No Labs: CBC, BMP 08/14/17 06:45 08/14/17 06:45 INR, PTT INR 2.24 (0.82-1.09) H D 08/12/17 18:00 Laboratory Tests 08/13/17 18:45 ABG pH 7.39 ABG pCO2 at Pt Temp 48.8 H ABG pO2 at Pt Temp 112.0 H ABG HCO3 28.2 H ABG O2 Sat (Measured) 98.2 Oxygen Flow Rate 45% Vent Mode Ac Vent Rate 12 PEEP 5.0 Pressure Support Vent 400 Problem List - Problems (1) Fever Code(s): R50.9 - FEVER, UNSPECIFIED Qualifiers: Fever type: unspecified Qualified Code(s): R50.9 - Fever, unspecified; R50.9 - Fever, unspecified (2) Hematuria Code(s): R31.9 - HEMATURIA, UNSPECIFIED Qualifiers: Hematuria type: unspecified type Qualified Code(s): R31.9 - Hematuria, unspecified; R31.9 - Hematuria, unspecified (3) Sacral decubitus ulcer, stage II Code(s): L89.152 - PRESSURE ULCER OF SACRAL REGION, STAGE 2 (4) A-fib Code(s): I48.91 - UNSPECIFIED ATRIAL FIBRILLATION Qualifiers: (5) Acute on chronic respiratory failure with hypoxia and hypercapnia Code(s): J96.21 - ACUTE AND CHRONIC RESPIRATORY FAILURE WITH HYPOXIA J96.22 - ACUTE AND CHRONIC RESPIRATORY FAILURE WITH HYPERCAPNIA (6) Anemia Code(s): D64.9 - ANEMIA, UNSPECIFIED Qualifiers: Anemia type: unspecified type Qualified Code(s): D64.9 - Anemia, unspecified; D64.9 - Anemia, unspecified (7) COPD (chronic obstructive pulmonary disease) Code(s): J44.9 - CHRONIC OBSTRUCTIVE PULMONARY DISEASE, UNSPECIFIED Qualifiers : COPD type: unspecified COPD Qualified Code(s): J44.9 - Chronic obstructive pulmonary disease, unspecified; J44.9 - Chronic obstructive pulmonary disease, unspecified; J44.9 - Chronic obstructive pulmonary disease, unspecified; J44.9 - Chronic obstructive pulmonary disease, unspecified (8) Chest pain Code(s): R07.9 - CHEST PAIN, UNSPECIFIED Qualifiers: Chest pain type: pleurodynia Qualified Code(s): R07.81 - Pleurodynia ; R07.81 - Pleurodynia (9) Diastolic heart failure Code(s): I50.30 - UNSPECIFIED DIASTOLIC (CONGESTIVE) HEART FAILURE Qualifiers : Heart failure chronicity: chronic Qualified Code(s): I50.32 - Chronic diastolic (congestive) heart failure; I50.32 - Chronic diastolic ( congestive) heart failure; I50.32 - Chronic diastolic (congestive) heart failure ; I50.32 - Chronic diastolic (congestive) heart failure (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 Assessment/Plan IMP ACUTE ON CHRONIC HYPOXEMIC/HYPERCAPNEIC RESPIRATORY FAILURE FEVER ANEMIA COPD AFIB HEMATURIA DIASTOLIC HF PLAN VENT SUPPORT ON AC MODE INHALED BRONCHODILATORS TRANSFUSE as needed ANTIBIOTICS PER ID MONITOR H+H STOOL GINNA RAGLAND Problem List - Problems (1) Fever Code(s): R50.9 - FEVER, UNSPECIFIED Qualifiers: Fever type: unspecified Qualified Code(s): R50.9 - Fever, unspecified; R50.9 - Fever, unspecified (2) Hematuria Code(s): R31.9 - HEMATURIA, UNSPECIFIED Qualifiers: Hematuria type: unspecified type Qualified Code(s): R31.9 - Hematuria, unspecified; R31.9 - Hematuria, unspecified (3) Sacral decubitus ulcer, stage II Code(s): L89.152 - PRESSURE ULCER OF SACRAL REGION, STAGE 2 (4) A-fib Code(s): I48.91 - UNSPECIFIED ATRIAL FIBRILLATION Qualifiers: (5) Acute on chronic respiratory failure with hypoxia and hypercapnia Code(s): J96.21 - ACUTE AND CHRONIC RESPIRATORY FAILURE WITH HYPOXIA J96.22 - ACUTE AND CHRONIC RESPIRATORY FAILURE WITH HYPERCAPNIA (6) Anemia Code(s): D64.9 - ANEMIA, UNSPECIFIED Qualifiers: Anemia type: unspecified type Qualified Code(s): D64.9 - Anemia, unspecified; D64.9 - Anemia, unspecified (7) COPD (chronic obstructive pulmonary disease) Code(s): J44.9 - CHRONIC OBSTRUCTIVE PULMONARY DISEASE, UNSPECIFIED Qualifiers : COPD type: unspecified COPD Qualified Code(s): J44.9 - Chronic obstructive pulmonary disease, unspecified; J44.9 - Chronic obstructive pulmonary disease, unspecified; J44.9 - Chronic obstructive pulmonary disease, unspecified; J44.9 - Chronic obstructive pulmonary disease, unspecified (8) Chest pain Code(s): R07.9 - CHEST PAIN, UNSPECIFIED Qualifiers: Chest pain type: pleurodynia Qualified Code(s): R07.81 - Pleurodynia ; R07.81 - Pleurodynia (9) Diastolic heart failure Code(s): I50.30 - UNSPECIFIED DIASTOLIC (CONGESTIVE) HEART FAILURE Qualifiers : Heart failure chronicity: chronic Qualified Code(s): I50.32 - Chronic diastolic (congestive) heart failure; I50.32 - Chronic diastolic ( congestive) heart failure; I50.32 - Chronic diastolic (congestive) heart failure ; I50.32 - Chronic diastolic (congestive) heart failure (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
[2017-08-14] MEDS: MEROPENEM 500 MG in DEXTROSE 5%-WATER - 100 ML IVPB SCH ×2 (13:02→18:55)
--- NOTE | 2017-08-14 13:14 | PN ---
Progress Note, Physician Chief Complaint: ASLEEP COMFORTABLE - Current Medication List Current Medications: Active Medications Acetaminophen (Tylenol -) 650 mg PO Q6H PRN PRN Reason: FEVER OR PAIN Last Admin: 08/14/17 02:35 Dose: 650 mg Albuterol/Ipratropium (Duoneb -) 1 amp NEB Q6H PRN PRN Reason: SHORTNESS OF BREATH Last Admin: 08/14/17 10:31 Dose: 1 amp Apixaban (Eliquis -) 5 mg PO BID [facility] Last Admin: 08/14/17 09:39 Dose: 5 mg Cholestyramine Resin (Questran Light Packet -) 4 gm PO DAILY [facility] Last Admin: 08/14/17 09:40 Dose: 4 gm Diltiazem HCl (Cardizem Cd -) 120 mg PO DAILY [facility] Last Admin: 08/14/17 12:28 Dose: 120 mg Ferrous Sulfate (Feosol -) 325 mg PO DAILY [facility] Last Admin: 08/14/17 09:39 Dose: 325 mg Fluconazole (Diflucan -) 100 mg PO DAILY [facility] Last Admin: 08/14/17 09:39 Dose: 100 mg Meropenem 500 mg/ Dextrose 100 mls @ 200 mls/hr IVPB Q8H-IV [facility] Last Admin: 08/14/17 13:02 Dose: 200 mls/hr Lactobacillus Acidophilus (Bacid -) 1 tab PO DAILY [facility] Last Admin: 08/14/17 09:38 Dose: 1 tab Levothyroxine Sodium (Synthroid -) 75 mcg PO DAILY@0700 [facility] Last Admin: 08/14/17 06:36 Dose: 75 mcg Lorazepam (Ativan -) 0.5 mg PO TID PRN PRN Reason: ANXIETY Last Admin: 08/13/17 21:32 Dose: 0.5 mg Mirtazapine (Remeron -) 15 mg PO HS [facility] Last Admin: 08/13/17 21:32 Dose: 15 mg Oxycodone HCl (Roxicodone -) 5 mg PO Q6H PRN PRN Reason: PAIN Ranitidine HCl (Zantac -) 150 mg PO DAILY [facility] Last Admin: 08/14/17 09:38 Dose: 150 mg Ranolazine (Ranexa -) 500 mg PO BID [facility] Last Admin: 08/14/17 09:38 Dose: 500 mg Thiamine HCl (Vitamin B1 -) 100 mg PO DAILY [facility] Last Admin: 08/14/17 09:38 Dose: 100 mg Valsartan (Diovan -) 320 mg PO DAILY [facility] Last Admin: 08/14/17 12:28 Dose: 320 mg - Objective Vital Signs: Vital Signs Temperature 98.8 F 08/14/17 10:00 Pulse Rate 92 H 08/14/17 12:20 Respiratory Rate 12 08/14/17 12:20 Blood Pressure 122/63 08/14/17 12:20 O2 Sat by Pulse Oximetry (%) 100 08/14/17 10:27 Constitutional: Yes: Mild Distress Eyes: Yes: WNL HENT: Yes: WNL Neck: Yes: WNL Cardiovascular: Yes: Pulse Irregular Respiratory: Yes: Mechanically Ventilated Gastrointestinal: Yes: WNL Genitourinary: Yes: Nelson Present Musculoskeletal: Yes: Muscle Weakness Extremities: Yes: WNL Edema: No Peripheral Pulses WNL: Yes Integumentary: Yes: WNL Wound/Incision: Yes: Dressing Dry and Intact Neurological: Yes: Pre-Existing Deficit, Weakness ...Motor Strength: LLE, RLE Psychiatric: Yes: Other Labs: CBC, BMP 08/14/17 06:45 08/14/17 06:45 INR, PTT INR 2.24 (0.82-1.09) H D 08/12/17 18:00 Problem List - Problems (1) Fever Code(s): R50.9 - FEVER, UNSPECIFIED Qualifiers: Fever type: unspecified Qualified Code(s): R50.9 - Fever, unspecified; R50.9 - Fever, unspecified (2) Hematuria Code(s): R31.9 - HEMATURIA, UNSPECIFIED Qualifiers: Hematuria type: unspecified type Qualified Code(s): R31.9 - Hematuria, unspecified; R31.9 - Hematuria, unspecified (3) Sacral decubitus ulcer, stage II Code(s): L89.152 - PRESSURE ULCER OF SACRAL REGION, STAGE 2 (4) A-fib Code(s): I48.91 - UNSPECIFIED ATRIAL FIBRILLATION Qualifiers: (5) Acute on chronic respiratory failure with hypoxia and hypercapnia Code(s): J96.21 - ACUTE AND CHRONIC RESPIRATORY FAILURE WITH HYPOXIA J96.22 - ACUTE AND CHRONIC RESPIRATORY FAILURE WITH HYPERCAPNIA (6) Chronic respiratory failure with hypoxia Code(s): J96.11 - CHRONIC RESPIRATORY FAILURE WITH HYPOXIA Assessment/Plan HEMATUREA WILL NEED TO BE ON AC FOR AFIB ID CONSULT IVF MONITOR LABS CULTURES OBTAINED TRANSFUSE PRBC
[2017-08-14] MEDS: MIRTAZAPINE 15 MG TABLET (FP) PO SCH (22:17)
[2017-08-14] MEDS: LORazepam 0.5 MG TABLET PO PRN (22:18)
[2017-08-15] MEDS ORDERED: PT OWN MED DRAWER 7, Y5N ONE ×3 (02:00→18:11)
[2017-08-15] MEDS: MEROPENEM 500 MG in DEXTROSE 5%-WATER - 100 ML IVPB SCH ×3 (02:07→18:13)
[2017-08-15] MEDS: ALBUTEROL SO4 2.5/IPRATROPIUM 0.5 INH SOL 3 ML VIAL.NEB. NEB PRN ×2 (05:30)
[2017-08-15] MEDS: ACETAMINOPHEN 325 MG TABLET (FP) PO PRN ×2 (06:23→21:40)
[2017-08-15] MEDS: LEVOTHYROXINE NA 75 MCG TABLET (FP) PO SCH (06:23)
[2017-08-15] MEDS: RANOLAZINE E.R. 500 MG TABLET (FP) PO SCH ×2 (10:55→21:41)
[2017-08-15] MEDS: FLUCONAZOLE 100 MG TABLET (UD) PO SCH (10:55)
[2017-08-15] MEDS: RANITIDINE HCL 150 MG TABLET (FP) PO SCH (10:55)
[2017-08-15] MEDS: LACTOBACILLUS ACIDOPHILUS 1 EACH TAB (FP) PO SCH (10:55)
[2017-08-15] MEDS: THIAMINE HCL 100 MG TABLET (FP) PO SCH (10:55)
[2017-08-15] MEDS: APIXABAN 5 MG TABLET PO SCH ×2 (10:56→21:41)
[2017-08-15] MEDS: FERROUS SO4 325 MG TABLET (FP) PO SCH (10:56)
[2017-08-15] MEDS: CHOLESTYRAMINE/ASPARTAME 4 GM PACKET PO SCH (11:02)
[2017-08-15] MEDS: VALSARTAN 160 MG TABLET (UD) PO SCH ×2 (11:03→15:23)
--- NOTE | 2017-08-15 13:14 | PN ---
Progress Note, Physician History of Present Illness: pulmonary alert on vent support ac mode -resp distress - Current Medication List Current Medications: Active Medications Acetaminophen (Tylenol -) 650 mg PO Q6H PRN PRN Reason: FEVER OR PAIN Last Admin: 08/15/17 06:23 Dose: 650 mg Albuterol/Ipratropium (Duoneb -) 1 amp NEB Q6H PRN PRN Reason: SHORTNESS OF BREATH Last Admin: 08/15/17 05:30 Dose: 1 amp Apixaban (Eliquis -) 5 mg PO BID [facility] Last Admin: 08/15/17 10:56 Dose: 5 mg Cholestyramine Resin (Questran Light Packet -) 4 gm PO DAILY [facility] Last Admin: 08/15/17 11:02 Dose: Not Given Diltiazem HCl (Cardizem Cd -) 120 mg PO DAILY [facility] Last Admin: 08/15/17 11:03 Dose: Not Given Ferrous Sulfate (Feosol -) 325 mg PO DAILY [facility] Last Admin: 08/15/17 10:56 Dose: 325 mg Fluconazole (Diflucan -) 100 mg PO DAILY [facility] Last Admin: 08/15/17 10:55 Dose: 100 mg Meropenem 500 mg/ Dextrose 100 mls @ 200 mls/hr IVPB Q8H-IV [facility] Last Admin: 08/15/17 10:55 Dose: 200 mls/hr Lactobacillus Acidophilus (Bacid -) 1 tab PO DAILY [facility] Last Admin: 08/15/17 10:55 Dose: 1 tab Levothyroxine Sodium (Synthroid -) 75 mcg PO DAILY@0700 [facility] Last Admin: 08/15/17 06:23 Dose: 75 mcg Lorazepam (Ativan -) 0.5 mg PO TID PRN PRN Reason: ANXIETY Last Admin: 08/14/17 22:18 Dose: 0.5 mg Mirtazapine (Remeron -) 15 mg PO HS [facility] Last Admin: 08/14/17 22:17 Dose: 15 mg Oxycodone HCl (Roxicodone -) 5 mg PO Q6H PRN PRN Reason: PAIN Ranitidine HCl (Zantac -) 150 mg PO DAILY [facility] Last Admin: 08/15/17 10:55 Dose: 150 mg Ranolazine (Ranexa -) 500 mg PO BID [facility] Last Admin: 08/15/17 10:55 Dose: 500 mg Thiamine HCl (Vitamin B1 -) 100 mg PO DAILY [facility] Last Admin: 08/15/17 10:55 Dose: 100 mg Valsartan (Diovan -) 320 mg PO DAILY [facility] Last Admin: 08/15/17 11:03 Dose: Not Given - Objective Vital Signs: Vital Signs Temperature 98.1 F 08/15/17 10:00 Pulse Rate 96 H 08/15/17 10:00 Respiratory Rate 14 08/15/17 10:00 Blood Pressure 109/55 08/15/17 10:00 O2 Sat by Pulse Oximetry (%) 98 08/15/17 09:40 Constitutional: Yes: Well Nourished, Calm Eyes: Yes: WNL HENT: Yes: Nasal Congestion Neck: Yes: Supple (trach) Cardiovascular: Yes: Pulse Irregular, S1, S2 Respiratory: Yes: Diminished Gastrointestinal: Yes: Normal Bowel Sounds, Soft Extremities: Yes: WNL Edema: No Problem List - Problems (1) Fever Code(s): R50.9 - FEVER, UNSPECIFIED Qualifiers: Fever type: unspecified Qualified Code(s): R50.9 - Fever, unspecified; R50.9 - Fever, unspecified (2) Hematuria Code(s): R31.9 - HEMATURIA, UNSPECIFIED Qualifiers: Hematuria type: unspecified type Qualified Code(s): R31.9 - Hematuria, unspecified; R31.9 - Hematuria, unspecified (3) Sacral decubitus ulcer, stage II Code(s): L89.152 - PRESSURE ULCER OF SACRAL REGION, STAGE 2 (4) A-fib Code(s): I48.91 - UNSPECIFIED ATRIAL FIBRILLATION Qualifiers: (5) Acute on chronic respiratory failure with hypoxia and hypercapnia Code(s): J96.21 - ACUTE AND CHRONIC RESPIRATORY FAILURE WITH HYPOXIA J96.22 - ACUTE AND CHRONIC RESPIRATORY FAILURE WITH HYPERCAPNIA (6) Anemia Code(s): D64.9 - ANEMIA, UNSPECIFIED Qualifiers: Anemia type: unspecified type Qualified Code(s): D64.9 - Anemia, unspecified; D64.9 - Anemia, unspecified (7) COPD (chronic obstructive pulmonary disease) Code(s): J44.9 - CHRONIC OBSTRUCTIVE PULMONARY DISEASE, UNSPECIFIED Qualifiers : COPD type: unspecified COPD Qualified Code(s): J44.9 - Chronic obstructive pulmonary disease, unspecified; J44.9 - Chronic obstructive pulmonary disease, unspecified; J44.9 - Chronic obstructive pulmonary disease, unspecified; J44.9 - Chronic obstructive pulmonary disease, unspecified (8) Chest pain Code(s): R07.9 - CHEST PAIN, UNSPECIFIED Qualifiers: Chest pain type: pleurodynia Qualified Code(s): R07.81 - Pleurodynia ; R07.81 - Pleurodynia (9) Diastolic heart failure Code(s): I50.30 - UNSPECIFIED DIASTOLIC (CONGESTIVE) HEART FAILURE Qualifiers : Heart failure chronicity: chronic Qualified Code(s): I50.32 - Chronic diastolic (congestive) heart failure; I50.32 - Chronic diastolic ( congestive) heart failure; I50.32 - Chronic diastolic (congestive) heart failure ; I50.32 - Chronic diastolic (congestive) heart failure (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 Assessment/Plan IMP ACUTE ON CHRONIC HYPOXEMIC/HYPERCAPNEIC RESPIRATORY FAILURE FEVER ANEMIA COPD AFIB HEMATURIA DIASTOLIC HF PLAN VENT SUPPORT ON AC MODE INHALED BRONCHODILATORS TRANSFUSE as needed ANTIBIOTICS PER ID MONITOR H+H DR RAGLAND Problem List - Problems (1) Fever Code(s): R50.9 - FEVER, UNSPECIFIED Qualifiers: Fever type: unspecified Qualified Code(s): R50.9 - Fever, unspecified; R50.9 - Fever, unspecified (2) Hematuria Code(s): R31.9 - HEMATURIA, UNSPECIFIED Qualifiers: Hematuria type: unspecified type Qualified Code(s): R31.9 - Hematuria, unspecified; R31.9 - Hematuria, unspecified (3) Sacral decubitus ulcer, stage II Code(s): L89.152 - PRESSURE ULCER OF SACRAL REGION, STAGE 2 (4) A-fib Code(s): I48.91 - UNSPECIFIED ATRIAL FIBRILLATION Qualifiers: (5) Acute on chronic respiratory failure with hypoxia and hypercapnia Code(s): J96.21 - ACUTE AND CHRONIC RESPIRATORY FAILURE WITH HYPOXIA J96.22 - ACUTE AND CHRONIC RESPIRATORY FAILURE WITH HYPERCAPNIA (6) Anemia Code(s): D64.9 - ANEMIA, UNSPECIFIED Qualifiers: Anemia type: unspecified type Qualified Code(s): D64.9 - Anemia, unspecified; D64.9 - Anemia, unspecified (7) COPD (chronic obstructive pulmonary disease) Code(s): J44.9 - CHRONIC OBSTRUCTIVE PULMONARY DISEASE, UNSPECIFIED Qualifiers : COPD type: unspecified COPD Qualified Code(s): J44.9 - Chronic obstructive pulmonary disease, unspecified; J44.9 - Chronic obstructive pulmonary disease, unspecified; J44.9 - Chronic obstructive pulmonary disease, unspecified; J44.9 - Chronic obstructive pulmonary disease, unspecified (8) Chest pain Code(s): R07.9 - CHEST PAIN, UNSPECIFIED Qualifiers: Chest pain type: pleurodynia Qualified Code(s): R07.81 - Pleurodynia ; R07.81 - Pleurodynia (9) Diastolic heart failure Code(s): I50.30 - UNSPECIFIED DIASTOLIC (CONGESTIVE) HEART FAILURE Qualifiers : Heart failure chronicity: chronic Qualified Code(s): I50.32 - Chronic diastolic (congestive) heart failure; I50.32 - Chronic diastolic ( congestive) heart failure; I50.32 - Chronic diastolic (congestive) heart failure ; I50.32 - Chronic diastolic (congestive) heart failure (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
--- NOTE | 2017-08-15 15:34 | PN ---
Progress Note (short form) - Note Progress Note: Vascular Surgery Pt seen and examined. Stage 2 sacral ulcer. clean, pink, slough in center. offload area. Start santyl to area daily. Surya Guerrero DO
--- NOTE | 2017-08-15 17:59 | PN ---
Progress Note, Physician Chief Complaint: UTI, Fever History of Present Illness: NAD, on [facility] vent - Current Medication List Current Medications: Active Medications Acetaminophen (Tylenol -) 650 mg PO Q6H PRN PRN Reason: FEVER OR PAIN Last Admin: 08/15/17 06:23 Dose: 650 mg Albuterol/Ipratropium (Duoneb -) 1 amp NEB Q6H PRN PRN Reason: SHORTNESS OF BREATH Last Admin: 08/15/17 05:30 Dose: 1 amp Apixaban (Eliquis -) 5 mg PO BID [facility] Last Admin: 08/15/17 10:56 Dose: 5 mg Cholestyramine Resin (Questran Light Packet -) 4 gm PO DAILY [facility] Last Admin: 08/15/17 11:02 Dose: Not Given Collagenase (Santyl -) 1 applic TP DAILY [facility] Diltiazem HCl (Cardizem Cd -) 120 mg PO DAILY [facility] Last Admin: 08/15/17 15:23 Dose: 120 mg Ferrous Sulfate (Feosol -) 325 mg PO DAILY [facility] Last Admin: 08/15/17 10:56 Dose: 325 mg Fluconazole (Diflucan -) 100 mg PO DAILY [facility] Last Admin: 08/15/17 10:55 Dose: 100 mg Meropenem 500 mg/ Dextrose 100 mls @ 200 mls/hr IVPB Q8H-IV [facility] Last Admin: 08/15/17 10:55 Dose: 200 mls/hr Lactobacillus Acidophilus (Bacid -) 1 tab PO DAILY [facility] Last Admin: 08/15/17 10:55 Dose: 1 tab Levothyroxine Sodium (Synthroid -) 75 mcg PO DAILY@0700 [facility] Last Admin: 08/15/17 06:23 Dose: 75 mcg Lorazepam (Ativan -) 0.5 mg PO TID PRN PRN Reason: ANXIETY Last Admin: 08/14/17 22:18 Dose: 0.5 mg Mirtazapine (Remeron -) 15 mg PO HS [facility] Last Admin: 08/14/17 22:17 Dose: 15 mg Oxycodone HCl (Roxicodone -) 5 mg PO Q6H PRN PRN Reason: PAIN Ranitidine HCl (Zantac -) 150 mg PO DAILY [facility] Last Admin: 08/15/17 10:55 Dose: 150 mg Ranolazine (Ranexa -) 500 mg PO BID [facility] Last Admin: 08/15/17 10:55 Dose: 500 mg Thiamine HCl (Vitamin B1 -) 100 mg PO DAILY [facility] Last Admin: 08/15/17 10:55 Dose: 100 mg Valsartan (Diovan -) 320 mg PO DAILY [facility] Last Admin: 08/15/17 15:23 Dose: 320 mg - Objective Vital Signs: Vital Signs Temperature 97.4 F L 08/15/17 14:00 Pulse Rate 89 08/15/17 14:00 Respiratory Rate 14 08/15/17 14:00 Blood Pressure 147/66 08/15/17 14:00 O2 Sat by Pulse Oximetry (%) 98 08/15/17 09:40 Constitutional: Yes: Well Nourished, No Distress, Calm Cardiovascular: Yes: Pulse Irregular Respiratory: Yes: Regular, Mechanically Ventilated Musculoskeletal: Yes: WNL Extremities: Yes: WNL Edema: No Peripheral Pulses WNL: Yes Neurological: Yes: Alert, Oriented Psychiatric: Yes: Alert, Oriented Labs: CBC, BMP 08/14/17 06:45 08/14/17 06:45 INR, PTT INR 2.24 (0.82-1.09) H D 08/12/17 18:00 Problem List - Problems (1) Fever Assessment/Plan: -febrile overnight -seen by ID -BC pending -SC and WC ordered -UC was contaminated, to be repeated -IV abx -Tylenol for fever over 100.0 F Code(s): R50.9 - FEVER, UNSPECIFIED Qualifiers: Fever type: unspecified Qualified Code(s): R50.9 - Fever, unspecified; R50.9 - Fever, unspecified (2) Hematuria Assessment/Plan: -+3 urine in UA -UC pending -Urology consult -D/C Nelson catheter Code(s): R31.9 - HEMATURIA, UNSPECIFIED Qualifiers: Hematuria type: unspecified type Qualified Code(s): R31.9 - Hematuria, unspecified; R31.9 - Hematuria, unspecified (3) Sacral decubitus ulcer, stage II Assessment/Plan: -seen by Vascular -offloading to the area -santyl -wound culture Code(s): L89.152 - PRESSURE ULCER OF SACRAL REGION, STAGE 2 (4) Systemic inflammatory response syndrome (SIRS) Assessment/Plan: -seen by ID -IV abx -Tylenol for fever over 100.0F Code(s): R65.10 - SIRS OF NON-INFECTIOUS ORIGIN W/O ACUTE ORGAN DYSFUNCTION (5) A-fib Assessment/Plan: -Chronic -controlled -on Eliquis Code(s): I48.91 - UNSPECIFIED ATRIAL FIBRILLATION Qualifiers: (6) Acute and chronic respiratory failure with hypoxia Assessment/Plan: -on mechanical vent -[facility]es on Tr[facility] collar [facility], would give her a trial once stable Code(s): J96.21 - ACUTE AND CHRONIC RESPIRATORY FAILURE WITH HYPOXIA Assessment/Plan see problem list.
[2017-08-15] MEDS: COLLAGENASE CLOSTRIDIUM HIST. 30 GRAMS TUBE TP SCH (20:43)
[2017-08-15] MEDS: MIRTAZAPINE 15 MG TABLET (FP) PO SCH (21:40)
[2017-08-16] MEDS: MEROPENEM 500 MG in DEXTROSE 5%-WATER - 100 ML IVPB SCH ×3 (02:43→17:18)
[2017-08-16] MEDS: LEVOTHYROXINE NA 75 MCG TABLET (FP) PO SCH (06:22)
[2017-08-16] MEDS ORDERED: PT OWN MED DRAWER 7, Y5N ONE ×4 (09:41→22:17)
[2017-08-16] MEDS: FLUCONAZOLE 100 MG TABLET (UD) PO SCH (09:54)
[2017-08-16] MEDS: APIXABAN 5 MG TABLET PO SCH ×2 (09:54→22:19)
[2017-08-16] MEDS: LACTOBACILLUS ACIDOPHILUS 1 EACH TAB (FP) PO SCH (09:54)
[2017-08-16] MEDS: RANOLAZINE E.R. 500 MG TABLET (FP) PO SCH ×2 (09:54→22:19)
[2017-08-16] MEDS: THIAMINE HCL 100 MG TABLET (FP) PO SCH (09:54)
[2017-08-16] MEDS: COLLAGENASE CLOSTRIDIUM HIST. 30 GRAMS TUBE TP SCH (09:54)
[2017-08-16] MEDS: RANITIDINE HCL 150 MG TABLET (FP) PO SCH (09:55)
[2017-08-16] MEDS: FERROUS SO4 325 MG TABLET (FP) PO SCH (09:55)
[2017-08-16] MEDS: CHOLESTYRAMINE/ASPARTAME 4 GM PACKET PO SCH (09:55)
[2017-08-16] MEDS: VALSARTAN 160 MG TABLET (UD) PO SCH (09:56)
[2017-08-16] MEDS ORDERED: ALBUTEROL SO4 2.5/IPRATROPIUM 0.5 INH SOL 3 ML VIAL.NEB. NEB PRN (11:10)
--- NOTE | 2017-08-16 14:07 | PN ---
Progress Note, Physician Chief Complaint: UTI, Fever History of Present Illness: NAD, on mech vent low grade temp on IV abx Urine and sputum culture pending - Current Medication List Current Medications: Active Medications Acetaminophen (Tylenol -) 650 mg PO Q6H PRN PRN Reason: FEVER OR PAIN Last Admin: 08/15/17 21:40 Dose: 650 mg Albuterol/Ipratropium (Duoneb -) 1 amp NEB Q6H PRN PRN Reason: SHORTNESS OF BREATH Apixaban (Eliquis -) 5 mg PO BID [facility] Last Admin: 08/16/17 09:54 Dose: 5 mg Cholestyramine Resin (Questran Light Packet -) 4 gm PO DAILY [facility] Last Admin: 08/16/17 09:55 Dose: Not Given Collagenase (Santyl -) 1 applic TP DAILY [facility] Last Admin: 08/16/17 09:54 Dose: 1 applic Diltiazem HCl (Cardizem Cd -) 120 mg PO DAILY [facility] Ferrous Sulfate (Feosol -) 325 mg PO DAILY [facility] Last Admin: 08/16/17 09:55 Dose: 325 mg Fluconazole (Diflucan -) 100 mg PO DAILY [facility] Last Admin: 08/16/17 09:54 Dose: 100 mg Meropenem 500 mg/ Dextrose 100 mls @ 200 mls/hr IVPB Q8H-IV [facility] Last Admin: 08/16/17 09:55 Dose: 200 mls/hr Lactobacillus Acidophilus (Bacid -) 1 tab PO DAILY [facility] Last Admin: 08/16/17 09:54 Dose: 1 tab Levothyroxine Sodium (Synthroid -) 75 mcg PO DAILY@0700 [facility] Last Admin: 08/16/17 06:22 Dose: 75 mcg Lorazepam (Ativan -) 0.5 mg PO TID [facility] Mirtazapine (Remeron -) 15 mg PO HS [facility] Last Admin: 08/15/17 21:40 Dose: 15 mg Nystatin (Nystop Powder -) 1 applic TP DAILY [facility] Oxycodone HCl (Roxicodone -) 5 mg PO Q6H PRN PRN Reason: PAIN Ranitidine HCl (Zantac -) 150 mg PO DAILY [facility] Last Admin: 08/16/17 09:55 Dose: 150 mg Ranolazine (Ranexa -) 500 mg PO BID [facility] Last Admin: 08/16/17 09:54 Dose: 500 mg Thiamine HCl (Vitamin B1 -) 100 mg PO DAILY [facility] Last Admin: 08/16/17 09:54 Dose: 100 mg Valsartan (Diovan -) 320 mg PO DAILY [facility] - Objective Vital Signs: Vital Signs Temperature 99.8 F H 08/16/17 12:07 Pulse Rate 99 H 08/16/17 12:07 Respiratory Rate 18 08/16/17 12:07 Blood Pressure 98/60 08/16/17 12:07 O2 Sat by Pulse Oximetry (%) 97 08/16/17 09:50 Constitutional: Yes: Well Nourished, No Distress, Calm Cardiovascular: Yes: Regular Rate and Rhythm Respiratory: Yes: Mechanically Ventilated Edema: No Peripheral Pulses WNL: Yes Neurological: Yes: Alert, Oriented Psychiatric: Yes: Alert, Oriented Labs: CBC, BMP 08/14/17 06:45 08/14/17 06:45 INR, PTT INR 2.24 (0.82-1.09) H D 08/12/17 18:00 Problem List - Problems (1) Fever Assessment/Plan: -febrile overnight -seen by ID -BC negative -UC, SC and WC ordered -UC was contaminated, to be repeated -IV abx -Tylenol for fever over 100.0 F Code(s): R50.9 - FEVER, UNSPECIFIED Qualifiers: Fever type: unspecified Qualified Code(s): R50.9 - Fever, unspecified; R50.9 - Fever, unspecified (2) Hematuria Assessment/Plan: -+3 urine in UA -UC pending -Urology consult -D/C Nelson catheter Code(s): R31.9 - HEMATURIA, UNSPECIFIED Qualifiers: Hematuria type: unspecified type Qualified Code(s): R31.9 - Hematuria, unspecified; R31.9 - Hematuria, unspecified (3) Sacral decubitus ulcer, stage II Assessment/Plan: -seen by Vascular -offloading to the area -katlyn -wound culture Code(s): L89.152 - PRESSURE ULCER OF SACRAL REGION, STAGE 2 (4) Systemic inflammatory response syndrome (SIRS) Assessment/Plan: -seen by ID -IV abx -Tylenol for fever over 100.0F Code(s): R65.10 - SIRS OF NON-INFECTIOUS ORIGIN W/O ACUTE ORGAN DYSFUNCTION (5) A-fib Assessment/Plan: -Chronic -controlled -on Eliquis Code(s): I48.91 - UNSPECIFIED ATRIAL FIBRILLATION Qualifiers: (6) Acute and chronic respiratory failure with hypoxia Assessment/Plan: -on mechanical vent -[facility]ach [facility] the [facility], would give her a trial once stable Code(s): J96.21 - ACUTE AND CHRONIC RESPIRATORY FAILURE WITH HYPOXIA Assessment/Plan see problem list.
[2017-08-16] MEDS: LORazepam 0.5 MG TABLET PO SCH ×2 (14:16→22:19)
--- NOTE | 2017-08-16 15:06 | PN ---
Progress Note (short form) - Note Progress Note: Awake on AC mode of vent. 40% FiO2. Intake & Output 08/13/17 08/14/17 08/15/17 08/16/17 23:59 23:59 23:59 23:59 Intake Total 850 1000 775 350 Output Total 400 1400 300 Balance 450 -400 475 350 Weight 84 lb 3.2 oz Last Vital Signs Temp Pulse Resp BP Pulse Ox 98.9 F 103 H 18 124/58 97 08/16/17 14:46 08/16/17 14:46 08/16/17 14:46 08/16/17 14:46 08/16/17 09:50 Active Medications Acetaminophen (Tylenol -) 650 mg PO Q6H PRN PRN Reason: FEVER OR PAIN Last Admin: 08/15/17 21:40 Dose: 650 mg Albuterol/Ipratropium (Duoneb -) 1 amp NEB Q6H PRN PRN Reason: SHORTNESS OF BREATH Apixaban (Eliquis -) 5 mg PO BID [facility] Last Admin: 08/16/17 09:54 Dose: 5 mg Cholestyramine Resin (Questran Light Packet -) 4 gm PO DAILY [facility] Last Admin: 08/16/17 09:55 Dose: Not Given Collagenase (Santyl -) 1 applic TP DAILY [facility] Last Admin: 08/16/17 09:54 Dose: 1 applic Diltiazem HCl (Cardizem Cd -) 120 mg PO DAILY [facility] Ferrous Sulfate (Feosol -) 325 mg PO DAILY [facility] Last Admin: 08/16/17 09:55 Dose: 325 mg Fluconazole (Diflucan -) 100 mg PO DAILY [facility] Last Admin: 08/16/17 09:54 Dose: 100 mg Meropenem 500 mg/ Dextrose 100 mls @ 200 mls/hr IVPB Q8H-IV [facility] Last Admin: 08/16/17 09:55 Dose: 200 mls/hr Lactobacillus Acidophilus (Bacid -) 1 tab PO DAILY [facility] Last Admin: 08/16/17 09:54 Dose: 1 tab Levothyroxine Sodium (Synthroid -) 75 mcg PO DAILY@0700 [facility] Last Admin: 08/16/17 06:22 Dose: 75 mcg Lorazepam (Ativan -) 0.5 mg PO TID [facility] Last Admin: 08/16/17 14:16 Dose: 0.5 mg Mirtazapine (Remeron -) 15 mg PO HS [facility] Last Admin: 08/15/17 21:40 Dose: 15 mg Nystatin (Nystop Powder -) 1 applic TP DAILY [facility] Oxycodone HCl (Roxicodone -) 5 mg PO Q6H PRN PRN Reason: PAIN Ranitidine HCl (Zantac -) 150 mg PO DAILY [facility] Last Admin: 08/16/17 09:55 Dose: 150 mg Ranolazine (Ranexa -) 500 mg PO BID [facility] Last Admin: 08/16/17 09:54 Dose: 500 mg Thiamine HCl (Vitamin B1 -) 100 mg PO DAILY [facility] Last Admin: 08/16/17 09:54 Dose: 100 mg Valsartan (Diovan -) 320 mg PO DAILY [facility] Constitutional: Yes: Awake, vented, NAD Eyes: Yes: WNL HENT: Yes: Nasal Congestion Neck: Yes: Supple (trach) Cardiovascular: Yes: Pulse Irregular, S1, S2 Respiratory: Yes: Scattered rhonchi, no wheeze Gastrointestinal: Yes: Normal Bowel Sounds, Soft Extremities: Yes: WNL Edema: No Laboratory Results - last 24 hr 08/12/17 18:00 Blood Type O POSITIVE Antibody Screen Negative Crossmatch See Detail Problem List - Problems (1) Fever Code(s): R50.9 - FEVER, UNSPECIFIED Qualifiers: Fever type: unspecified Qualified Code(s): R50.9 - Fever, unspecified; R50.9 - Fever, unspecified (2) Hematuria Code(s): R31.9 - HEMATURIA, UNSPECIFIED Qualifiers: Hematuria type: unspecified type Qualified Code(s): R31.9 - Hematuria, unspecified; R31.9 - Hematuria, unspecified (3) Sacral decubitus ulcer, stage II Code(s): L89.152 - PRESSURE ULCER OF SACRAL REGION, STAGE 2 (4) A-fib Code(s): I48.91 - UNSPECIFIED ATRIAL FIBRILLATION Qualifiers: (5) Acute on chronic respiratory failure with hypoxia and hypercapnia Code(s): J96.21 - ACUTE AND CHRONIC RESPIRATORY FAILURE WITH HYPOXIA J96.22 - ACUTE AND CHRONIC RESPIRATORY FAILURE WITH HYPERCAPNIA (6) Anemia Code(s): D64.9 - ANEMIA, UNSPECIFIED Qualifiers: Anemia type: unspecified type Qualified Code(s): D64.9 - Anemia, unspecified; D64.9 - Anemia, unspecified (7) COPD (chronic obstructive pulmonary disease) Code(s): J44.9 - CHRONIC OBSTRUCTIVE PULMONARY DISEASE, UNSPECIFIED Qualifiers : COPD type: unspecified COPD Qualified Code(s): J44.9 - Chronic obstructive pulmonary disease, unspecified; J44.9 - Chronic obstructive pulmonary disease, unspecified; J44.9 - Chronic obstructive pulmonary disease, unspecified; J44.9 - Chronic obstructive pulmonary disease, unspecified (8) Chest pain Code(s): R07.9 - CHEST PAIN, UNSPECIFIED Qualifiers: Chest pain type: pleurodynia Qualified Code(s): R07.81 - Pleurodynia ; R07.81 - Pleurodynia (9) Diastolic heart failure Code(s): I50.30 - UNSPECIFIED DIASTOLIC (CONGESTIVE) HEART FAILURE Qualifiers : Heart failure chronicity: chronic Qualified Code(s): I50.32 - Chronic diastolic (congestive) heart failure; I50.32 - Chronic diastolic ( congestive) heart failure; I50.32 - Chronic diastolic (congestive) heart failure ; I50.32 - Chronic diastolic (congestive) heart failure (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
[2017-08-16] MEDS: ACETAMINOPHEN 325 MG TABLET (FP) PO PRN (17:18)
[2017-08-16] MEDS: NYSTATIN POWDER 100,000 UNITS/GM - 15 GM TOPICAL POWDER TP SCH (17:50)
[2017-08-16] MEDS: MIRTAZAPINE 15 MG TABLET (FP) PO SCH (22:19)
[2017-08-17] MEDS ORDERED: PT OWN MED DRAWER 7, Y5N ONE ×4 (01:33→21:14)
[2017-08-17] MEDS: MEROPENEM 500 MG in DEXTROSE 5%-WATER - 100 ML IVPB SCH ×3 (01:49→18:12)
[2017-08-17] MEDS: ACETAMINOPHEN 325 MG TABLET (FP) PO PRN ×2 (01:49→18:08)
[2017-08-17] MEDS: LORazepam 0.5 MG TABLET PO SCH ×3 (06:27→21:47)
[2017-08-17] MEDS: LEVOTHYROXINE NA 75 MCG TABLET (FP) PO SCH (06:27)
[2017-08-17 08:35] LABS: MCH 29.3 pg (25.7-33.7); MCHC 32.9 g/dl (32.0-36.0); MEAN PLT VOLUME 7.8 fl (7.5-11.1); PLATELET COUNT 573 K/MM3 (134-434); RDW 16.1 % (11.6-15.6); WHITE BLOOD COUNT 9.8 K/mm3 (4.0-10.0)
[2017-08-17 08:56] LABS: ALK PHOS 93 U/L (45-117); ANION GAP 8 (8-16); BILIRUBIN,TOTAL 0.4 mg/dL (0.2-1.0); CALCIUM 8.4 mg/dL (8.5-10.1); CO2 30 mmol/L (21-32); CREATININE 0.4 mg/dL (0.55-1.02); GLUCOSE,RANDOM 72 mg/dL (74-106); SGOT/AST 12 U/L (15-37); SGPT/ALT 16 U/L (12-78); TOT PROT 5.2 g/dl (6.4-8.2)
[2017-08-17 09:52] LABS: METAMYELOCYTE 1 % (0-2); PLATELET ESTIMATE INCREASED (NORMAL); TOTAL CELLS COUNTED 100
[2017-08-17] MEDS: LACTOBACILLUS ACIDOPHILUS 1 EACH TAB (FP) PO SCH (10:53)
[2017-08-17] MEDS: FLUCONAZOLE 100 MG TABLET (UD) PO SCH (10:56)
[2017-08-17] MEDS: VALSARTAN 160 MG TABLET (UD) PO SCH (10:56)
[2017-08-17] MEDS: APIXABAN 5 MG TABLET PO SCH ×2 (10:57→21:47)
[2017-08-17] MEDS: FERROUS SO4 325 MG TABLET (FP) PO SCH (10:58)
[2017-08-17] MEDS: CHOLESTYRAMINE/ASPARTAME 4 GM PACKET PO SCH (10:59)
[2017-08-17] MEDS: RANOLAZINE E.R. 500 MG TABLET (FP) PO SCH ×2 (10:59→21:47)
[2017-08-17] MEDS: THIAMINE HCL 100 MG TABLET (FP) PO SCH (11:00)
[2017-08-17] MEDS: RANITIDINE HCL 150 MG TABLET (FP) PO SCH (11:01)
[2017-08-17] MEDS: COLLAGENASE CLOSTRIDIUM HIST. 30 GRAMS TUBE TP SCH (11:01)
[2017-08-17] MEDS: NYSTATIN POWDER 100,000 UNITS/GM - 15 GM TOPICAL POWDER TP SCH (11:02)
--- NOTE | 2017-08-17 11:55 | PN ---
Progress Note, Physician History of Present Illness: pulmonary alert,on vent support on ac mode - Current Medication List Current Medications: Active Medications Acetaminophen (Tylenol -) 650 mg PO Q6H PRN PRN Reason: FEVER OR PAIN Last Admin: 08/17/17 01:49 Dose: 650 mg Albuterol/Ipratropium (Duoneb -) 1 amp NEB Q6H PRN PRN Reason: SHORTNESS OF BREATH Apixaban (Eliquis -) 5 mg PO BID [facility] Last Admin: 08/17/17 10:57 Dose: 5 mg Cholestyramine Resin (Questran Light Packet -) 4 gm PO DAILY [facility] Last Admin: 08/17/17 10:59 Dose: 4 gm Collagenase (Santyl -) 1 applic TP DAILY [facility] Last Admin: 08/17/17 11:01 Dose: 1 applic Diltiazem HCl (Cardizem Cd -) 120 mg PO DAILY [facility] Last Admin: 08/17/17 10:54 Dose: 120 mg Ferrous Sulfate (Feosol -) 325 mg PO DAILY [facility] Last Admin: 08/17/17 10:58 Dose: 325 mg Fluconazole (Diflucan -) 100 mg PO DAILY [facility] Last Admin: 08/17/17 10:56 Dose: 100 mg Meropenem 500 mg/ Dextrose 100 mls @ 200 mls/hr IVPB Q8H-IV [facility] Last Admin: 08/17/17 10:58 Dose: 200 mls/hr Lactobacillus Acidophilus (Bacid -) 1 tab PO DAILY [facility] Last Admin: 08/17/17 10:53 Dose: 1 tab Levothyroxine Sodium (Synthroid -) 75 mcg PO DAILY@0700 [facility] Last Admin: 08/17/17 06:27 Dose: 75 mcg Lorazepam (Ativan -) 0.5 mg PO TID [facility] Last Admin: 08/17/17 06:27 Dose: 0.5 mg Mirtazapine (Remeron -) 15 mg PO HS [facility] Last Admin: 08/16/17 22:19 Dose: 15 mg Nystatin (Nystop Powder -) 1 applic TP DAILY [facility] Last Admin: 08/17/17 11:02 Dose: 1 applic Oxycodone HCl (Roxicodone -) 5 mg PO Q6H PRN PRN Reason: PAIN Ranitidine HCl (Zantac -) 150 mg PO DAILY [facility] Last Admin: 08/17/17 11:01 Dose: 150 mg Ranolazine (Ranexa -) 500 mg PO BID [facility] Last Admin: 08/17/17 10:59 Dose: 500 mg Thiamine HCl (Vitamin B1 -) 100 mg PO DAILY [facility] Last Admin: 08/17/17 11:00 Dose: 100 mg Valsartan (Diovan -) 320 mg PO DAILY [facility] Last Admin: 08/17/17 10:56 Dose: 320 mg - Objective Vital Signs: Vital Signs Temperature 97.4 F L 08/17/17 08:30 Pulse Rate 84 08/17/17 08:30 Respiratory Rate 14 08/17/17 08:30 Blood Pressure 92/49 08/17/17 08:30 O2 Sat by Pulse Oximetry (%) 98 08/16/17 21:00 Constitutional: Yes: Calm, Thin Eyes: Yes: WNL HENT: Yes: WNL Neck: Yes: Supple (trach) Cardiovascular: Yes: Pulse Irregular, S1, S2 Respiratory: Yes: Diminished Gastrointestinal: Yes: Normal Bowel Sounds, Soft Extremities: Yes: WNL Edema: No Peripheral Pulses WNL: No Labs: CBC, BMP 08/17/17 08:15 08/17/17 08:15 INR, PTT INR 2.24 (0.82-1.09) H D 08/12/17 18:00 Problem List - Problems (1) Fever Code(s): R50.9 - FEVER, UNSPECIFIED Qualifiers: Fever type: unspecified Qualified Code(s): R50.9 - Fever, unspecified; R50.9 - Fever, unspecified (2) Hematuria Code(s): R31.9 - HEMATURIA, UNSPECIFIED Qualifiers: Hematuria type: unspecified type Qualified Code(s): R31.9 - Hematuria, unspecified; R31.9 - Hematuria, unspecified (3) Sacral decubitus ulcer, stage II Code(s): L89.152 - PRESSURE ULCER OF SACRAL REGION, STAGE 2 (4) A-fib Code(s): I48.91 - UNSPECIFIED ATRIAL FIBRILLATION Qualifiers: (5) Acute on chronic respiratory failure with hypoxia and hypercapnia Code(s): J96.21 - ACUTE AND CHRONIC RESPIRATORY FAILURE WITH HYPOXIA J96.22 - ACUTE AND CHRONIC RESPIRATORY FAILURE WITH HYPERCAPNIA (6) Anemia Code(s): D64.9 - ANEMIA, UNSPECIFIED Qualifiers: Anemia type: unspecified type Qualified Code(s): D64.9 - Anemia, unspecified; D64.9 - Anemia, unspecified (7) COPD (chronic obstructive pulmonary disease) Code(s): J44.9 - CHRONIC OBSTRUCTIVE PULMONARY DISEASE, UNSPECIFIED Qualifiers : COPD type: unspecified COPD Qualified Code(s): J44.9 - Chronic obstructive pulmonary disease, unspecified; J44.9 - Chronic obstructive pulmonary disease, unspecified; J44.9 - Chronic obstructive pulmonary disease, unspecified; J44.9 - Chronic obstructive pulmonary disease, unspecified (8) Chest pain Code(s): R07.9 - CHEST PAIN, UNSPECIFIED Qualifiers: Chest pain type: pleurodynia Qualified Code(s): R07.81 - Pleurodynia ; R07.81 - Pleurodynia (9) Diastolic heart failure Code(s): I50.30 - UNSPECIFIED DIASTOLIC (CONGESTIVE) HEART FAILURE Qualifiers : Heart failure chronicity: chronic Qualified Code(s): I50.32 - Chronic diastolic (congestive) heart failure; I50.32 - Chronic diastolic ( congestive) heart failure; I50.32 - Chronic diastolic (congestive) heart failure ; I50.32 - Chronic diastolic (congestive) heart failure (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 Assessment/Plan IMP ACUTE ON CHRONIC HYPOXEMIC/HYPERCAPNEIC RESPIRATORY FAILURE FEVER ANEMIA COPD AFIB HEMATURIA DIASTOLIC HF PLAN VENT SUPPORT ON AC MODE INHALED BRONCHODILATORS ANTIBIOTICS PER ID MONITOR H+H DR RAGLAND Problem List - Problems (1) Fever Code(s): R50.9 - FEVER, UNSPECIFIED Qualifiers: Fever type: unspecified Qualified Code(s): R50.9 - Fever, unspecified; R50.9 - Fever, unspecified (2) Hematuria Code(s): R31.9 - HEMATURIA, UNSPECIFIED Qualifiers: Hematuria type: unspecified type Qualified Code(s): R31.9 - Hematuria, unspecified; R31.9 - Hematuria, unspecified (3) Sacral decubitus ulcer, stage II Code(s): L89.152 - PRESSURE ULCER OF SACRAL REGION, STAGE 2 (4) A-fib Code(s): I48.91 - UNSPECIFIED ATRIAL FIBRILLATION Qualifiers: (5) Acute on chronic respiratory failure with hypoxia and hypercapnia Code(s): J96.21 - ACUTE AND CHRONIC RESPIRATORY FAILURE WITH HYPOXIA J96.22 - ACUTE AND CHRONIC RESPIRATORY FAILURE WITH HYPERCAPNIA (6) Anemia Code(s): D64.9 - ANEMIA, UNSPECIFIED Qualifiers: Anemia type: unspecified type Qualified Code(s): D64.9 - Anemia, unspecified; D64.9 - Anemia, unspecified (7) COPD (chronic obstructive pulmonary disease) Code(s): J44.9 - CHRONIC OBSTRUCTIVE PULMONARY DISEASE, UNSPECIFIED Qualifiers : COPD type: unspecified COPD Qualified Code(s): J44.9 - Chronic obstructive pulmonary disease, unspecified; J44.9 - Chronic obstructive pulmonary disease, unspecified; J44.9 - Chronic obstructive pulmonary disease, unspecified; J44.9 - Chronic obstructive pulmonary disease, unspecified (8) Chest pain Code(s): R07.9 - CHEST PAIN, UNSPECIFIED Qualifiers: Chest pain type: pleurodynia Qualified Code(s): R07.81 - Pleurodynia ; R07.81 - Pleurodynia (9) Diastolic heart failure Code(s): I50.30 - UNSPECIFIED DIASTOLIC (CONGESTIVE) HEART FAILURE Qualifiers : Heart failure chronicity: chronic Qualified Code(s): I50.32 - Chronic diastolic (congestive) heart failure; I50.32 - Chronic diastolic ( congestive) heart failure; I50.32 - Chronic diastolic (congestive) heart failure ; I50.32 - Chronic diastolic (congestive) heart failure (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
[2017-08-17] MEDS: oxyCODONE HCL 5 MG TABLET PO PRN (18:09)
--- NOTE | 2017-08-17 19:51 | PN ---
Progress Note, Physician Chief Complaint: UTI, Fever History of Present Illness: NAD, on mech vent febrile this evening on IV abx ID consult Urology consult pending - Current Medication List Current Medications: Active Medications Acetaminophen (Tylenol -) 650 mg PO Q6H PRN PRN Reason: FEVER OR PAIN Last Admin: 08/17/17 18:08 Dose: 650 mg Albuterol/Ipratropium (Duoneb -) 1 amp NEB Q6H PRN PRN Reason: SHORTNESS OF BREATH Apixaban (Eliquis -) 5 mg PO BID [facility] Last Admin: 08/17/17 10:57 Dose: 5 mg Cholestyramine Resin (Questran Light Packet -) 4 gm PO DAILY [facility] Last Admin: 08/17/17 10:59 Dose: 4 gm Collagenase (Santyl -) 1 applic TP DAILY [facility] Last Admin: 08/17/17 11:01 Dose: 1 applic Diltiazem HCl (Cardizem Cd -) 120 mg PO DAILY [facility] Last Admin: 08/17/17 10:54 Dose: 120 mg Ferrous Sulfate (Feosol -) 325 mg PO DAILY [facility] Last Admin: 08/17/17 10:58 Dose: 325 mg Fluconazole (Diflucan -) 100 mg PO DAILY [facility] Last Admin: 08/17/17 10:56 Dose: 100 mg Meropenem 500 mg/ Dextrose 100 mls @ 200 mls/hr IVPB Q8H-IV [facility] Last Admin: 08/17/17 18:12 Dose: 200 mls/hr Lactobacillus Acidophilus (Bacid -) 1 tab PO DAILY [facility] Last Admin: 08/17/17 10:53 Dose: 1 tab Levothyroxine Sodium (Synthroid -) 75 mcg PO DAILY@0700 [facility] Last Admin: 08/17/17 06:27 Dose: 75 mcg Lorazepam (Ativan -) 0.5 mg PO TID [facility] Last Admin: 08/17/17 15:12 Dose: 0.5 mg Mirtazapine (Remeron -) 15 mg PO HS [facility] Last Admin: 08/16/17 22:19 Dose: 15 mg Nystatin (Nystop Powder -) 1 applic TP DAILY [facility] Last Admin: 08/17/17 11:02 Dose: 1 applic Oxycodone HCl (Roxicodone -) 5 mg PO Q6H PRN PRN Reason: PAIN Last Admin: 08/17/17 18:09 Dose: 5 mg Ranitidine HCl (Zantac -) 150 mg PO DAILY [facility] Last Admin: 08/17/17 11:01 Dose: 150 mg Ranolazine (Ranexa -) 500 mg PO BID [facility] Last Admin: 08/17/17 10:59 Dose: 500 mg Thiamine HCl (Vitamin B1 -) 100 mg PO DAILY [facility] Last Admin: 08/17/17 11:00 Dose: 100 mg Valsartan (Diovan -) 320 mg PO DAILY [facility] Last Admin: 08/17/17 10:56 Dose: 320 mg - Objective Vital Signs: Vital Signs Temperature 101.8 F H 08/17/17 18:00 Pulse Rate 109 H 08/17/17 18:00 Respiratory Rate 16 08/17/17 18:33 Blood Pressure 101/49 08/17/17 18:00 O2 Sat by Pulse Oximetry (%) 97 08/17/17 12:00 Constitutional: Yes: Well Nourished, No Distress, Calm Cardiovascular: Yes: Regular Rate and Rhythm Respiratory: Yes: Mechanically Ventilated Neurological: Yes: Alert, Oriented Psychiatric: Yes: Alert, Oriented Labs: CBC, BMP 08/17/17 08:15 08/17/17 08:15 INR, PTT INR 2.24 (0.82-1.09) H D 08/12/17 18:00 Problem List - Problems (1) Fever Assessment/Plan: -febrile this evening -seen by ID -BC negative -UC, SC and WC : Microbiology 08/12/17 18:10 Blood Culture - Final Blood - Peripheral Venous NO GROWTH AFTER 5 DAYS INCUBATION 08/12/17 18:00 Blood Culture - Final Blood - Peripheral Venous NO GROWTH AFTER 5 DAYS INCUBATION 08/15/17 17:45 Gram Stain - Final Sputum - Endotrachea Suction/Ventilator Sputum Culture - Preliminary Staphylococcus Latex Coag Pos 08/15/17 17:45 Gram Stain - Final Decubiti Wound Culture - Preliminary Presumptive Mrsa (Pbp2a Pos) Pending Organism 08/15/17 17:45 Urine Culture - Final Urine - Urine - Catheterized Yeast Like Organism -IV abx -Tylenol for fever over 100.0 F Code(s): R50.9 - FEVER, UNSPECIFIED Qualifiers: Fever type: unspecified Qualified Code(s): R50.9 - Fever, unspecified; R50.9 - Fever, unspecified (2) Hematuria Assessment/Plan: -+3 urine in UA -Urology consult pending -D/C Nelson catheter Code(s): R31.9 - HEMATURIA, UNSPECIFIED Qualifiers: Hematuria type: unspecified type Qualified Code(s): R31.9 - Hematuria, unspecified; R31.9 - Hematuria, unspecified (3) Sacral decubitus ulcer, stage II Assessment/Plan: -seen by Vascular -offloading to the area -kat[place] -wound culture Code(s): L89.152 - PRESSURE ULCER OF SACRAL REGION, STAGE 2 (4) Systemic inflammatory response syndrome (SIRS) Assessment/Plan: -seen by ID -IV abx -Tylenol for fever over 100.0F Code(s): R65.10 - SIRS OF NON-INFECTIOUS ORIGIN W/O ACUTE ORGAN DYSFUNCTION (5) A-fib Assessment/Plan: -Chronic -controlled -on Eliquis Code(s): I48.91 - UNSPECIFIED ATRIAL FIBRILLATION Qualifiers: (6) Acute and chronic respiratory failure with hypoxia Assessment/Plan: -on mechanical vent -[facility] Tr[facility] shelter, would give her a trial once stable Code(s): J96.21 - ACUTE AND CHRONIC RESPIRATORY FAILURE WITH HYPOXIA Assessment/Plan see problem list.
[2017-08-17] MEDS: MIRTAZAPINE 15 MG TABLET (FP) PO SCH (21:47)
[2017-08-18] MEDS: MEROPENEM 500 MG in DEXTROSE 5%-WATER - 100 ML IVPB SCH ×3 (01:07→17:58)
[2017-08-18] MEDS: oxyCODONE HCL 5 MG TABLET PO PRN (03:24)
[2017-08-18] MEDS: LEVOTHYROXINE NA 75 MCG TABLET (FP) PO SCH (06:46)
[2017-08-18] MEDS: LORazepam 0.5 MG TABLET PO SCH (06:46)
[2017-08-18] MEDS: LACTOBACILLUS ACIDOPHILUS 1 EACH TAB (FP) PO SCH (09:24)
[2017-08-18] MEDS: RANOLAZINE E.R. 500 MG TABLET (FP) PO SCH (09:24)
[2017-08-18] MEDS: RANITIDINE HCL 150 MG TABLET (FP) PO SCH (09:24)
[2017-08-18] MEDS: FERROUS SO4 325 MG TABLET (FP) PO SCH (09:24)
[2017-08-18] MEDS: THIAMINE HCL 100 MG TABLET (FP) PO SCH (09:24)
[2017-08-18] MEDS: VALSARTAN 160 MG TABLET (UD) PO SCH (10:10)
[2017-08-18] MEDS: FLUCONAZOLE 100 MG TABLET (UD) PO SCH (10:18)
[2017-08-18] MEDS: APIXABAN 5 MG TABLET PO SCH ×2 (10:18→21:27)
[2017-08-18] MEDS: CHOLESTYRAMINE/ASPARTAME 4 GM PACKET PO SCH (10:18)
[2017-08-18] MEDS ORDERED: VALSARTAN 160 MG TABLET (UD) PO SCH ×2 (10:20→10:23)
--- NOTE | 2017-08-18 10:22 | PN ---
Progress Note, Physician Chief Complaint: awake alert oriented on vent trach - Current Medication List Current Medications: Active Medications Acetaminophen (Tylenol -) 650 mg PO Q6H PRN PRN Reason: FEVER OR PAIN Last Admin: 08/17/17 18:08 Dose: 650 mg Albuterol/Ipratropium (Duoneb -) 1 amp NEB Q6H PRN PRN Reason: SHORTNESS OF BREATH Apixaban (Eliquis -) 5 mg PO BID [facility] Last Admin: 08/18/17 10:18 Dose: 5 mg Cholestyramine Resin (Questran Light Packet -) 4 gm PO DAILY [facility] Last Admin: 08/18/17 10:18 Dose: Not Given Collagenase (Santyl -) 1 applic TP DAILY [facility] Last Admin: 08/17/17 11:01 Dose: 1 applic Diltiazem HCl (Cardizem Cd -) 120 mg PO DAILY [facility] Last Admin: 08/18/17 10:09 Dose: Not Given Ferrous Sulfate (Feosol -) 325 mg PO DAILY [facility] Last Admin: 08/18/17 09:24 Dose: 325 mg Fluconazole (Diflucan -) 100 mg PO DAILY [facility] Last Admin: 08/18/17 10:18 Dose: 100 mg Meropenem 500 mg/ Dextrose 100 mls @ 200 mls/hr IVPB Q8H-IV [facility] Last Admin: 08/18/17 09:25 Dose: 200 mls/hr Lactobacillus Acidophilus (Bacid -) 1 tab PO DAILY [facility] Last Admin: 08/18/17 09:24 Dose: 1 tab Levothyroxine Sodium (Synthroid -) 75 mcg PO DAILY@0700 [facility] Last Admin: 08/18/17 06:46 Dose: Not Given Lorazepam (Ativan -) 0.5 mg PO TID [facility] Last Admin: 08/18/17 06:46 Dose: Not Given Mirtazapine (Remeron -) 15 mg PO HS [facility] Last Admin: 08/17/17 21:47 Dose: 15 mg Nystatin (Nystop Powder -) 1 applic TP DAILY [facility] Last Admin: 08/17/17 11:02 Dose: 1 applic Oxycodone HCl (Roxicodone -) 5 mg PO Q6H PRN PRN Reason: PAIN Last Admin: 08/17/17 18:09 Dose: 5 mg Ranitidine HCl (Zantac -) 150 mg PO DAILY [facility] Last Admin: 08/18/17 09:24 Dose: 150 mg Ranolazine (Ranexa -) 500 mg PO BID [facility] Last Admin: 08/18/17 09:24 Dose: 500 mg Thiamine HCl (Vitamin B1 -) 100 mg PO DAILY [facility] Last Admin: 08/18/17 09:24 Dose: 100 mg Valsartan (Diovan -) 160 mg PO DAILY [facility] - Objective Vital Signs: Vital Signs Temperature 99.5 F 08/18/17 09:36 Pulse Rate 107 H 08/18/17 09:36 Respiratory Rate 14 08/18/17 09:36 Blood Pressure 134/50 08/18/17 09:36 O2 Sat by Pulse Oximetry (%) 96 08/17/17 21:00 Constitutional: Yes: Calm, Thin Neck: Yes: Other (trach) Cardiovascular: Yes: Pulse Irregular, S1, S2 Respiratory: Yes: Mechanically Ventilated Gastrointestinal: Yes: Normal Bowel Sounds, Soft Edema: No Neurological: Yes: Alert, Oriented Labs: CBC, BMP 08/17/17 08:15 08/17/17 08:15 INR, PTT INR 2.24 (0.82-1.09) H D 08/12/17 18:00 Problem List - Problems (1) Hematuria Assessment/Plan: awaiting urology eval h/h stable s/p transfusion repeat urine Code(s): R31.9 - HEMATURIA, UNSPECIFIED Qualifiers: Hematuria type: unspecified type Qualified Code(s): R31.9 - Hematuria, unspecified; R31.9 - Hematuria, unspecified (2) A-fib Assessment/Plan: cardizem for rate control [facility] cardio Code(s): I48.91 - UNSPECIFIED ATRIAL FIBRILLATION Qualifiers: (3) Acute on chronic respiratory failure with hypoxia and hypercapnia Assessment/Plan: vent support Code(s): J96.21 - ACUTE AND CHRONIC RESPIRATORY FAILURE WITH HYPOXIA J96.22 - ACUTE AND CHRONIC RESPIRATORY FAILURE WITH HYPERCAPNIA (4) Fever Assessment/Plan: ID on board board spectrum abx Code(s): R50.9 - FEVER, UNSPECIFIED Qualifiers: Fever type: unspecified Qualified Code(s): R50.9 - Fever, unspecified; R50.9 - Fever, unspecified (5) Diastolic heart failure Assessment/Plan: sequestran,diovan ranexa diovan dose to 80 mg Code(s): I50.30 - UNSPECIFIED DIASTOLIC (CONGESTIVE) HEART FAILURE Qualifiers : Heart failure chronicity: chronic Qualified Code(s): I50.32 - Chronic diastolic (congestive) heart failure; I50.32 - Chronic diastolic ( congestive) heart failure; I50.32 - Chronic diastolic (congestive) heart failure ; I50.32 - Chronic diastolic (congestive) heart failure (6) Anemia Assessment/Plan: s/p prbc ferrous sulfate Code(s): D64.9 - ANEMIA, UNSPECIFIED Qualifiers: Anemia type: unspecified type Qualified Code(s): D64.9 - Anemia, unspecified; D64.9 - Anemia, unspecified
[2017-08-18] MEDS: COLLAGENASE CLOSTRIDIUM HIST. 30 GRAMS TUBE TP SCH (11:22)
[2017-08-18] MEDS: NYSTATIN POWDER 100,000 UNITS/GM - 15 GM TOPICAL POWDER TP SCH (11:22)
--- NOTE | 2017-08-18 11:24 | RAPID ---
Physical Examination Findings/Remarks: Rapid response called as patient became unresponsive after deflation of ET tube cuff for sips of water for meds. Pt was able to swallow meds and became unresponsive soon after according to nurse and O2 sat was 85%. Upon arrival pt was responsive again and able to follow basic commands. She denies any pains or distress; denies cough, chest congestion and says yes when asked if she feels ok. VITALS: BP 135/85; 100 bpm; 100% O2 sat on vent (after re-inflation of cuff) PE Gen: Awake and alert and oriented. Following basic commands, in no acute distress. Head: NC/AT C/V: S1S2+, tachycardic Resp: Coarse breath sounds b/l Abd: Soft, NT Extremities: no edema, able to wiggle toes b/l when asked A/P -Pt possible temporarily unresponsive secondary to ET cuff deflation/ hypercapnia. -saturating well at this time, continue to monitor -At this time pt is alert, awake and oriented. -Will order CXR to r/o aspiration -continue to monitor mental status Labs: CBC, BMP 08/17/17 08:15 08/17/17 08:15
--- NOTE | 2017-08-18 11:30 | PN ---
Progress Note (short form) - Note Progress Note: Lethargic on vent. Trach balloon has been deflated for medication/PO feeds. Trach ballonn was inflated and Trach suctioned. The patient became Awake and responsive within 1 minute -> Most likely she became hypercapneic. Intake & Output 08/15/17 08/16/17 08/17/17 08/18/17 23:59 23:59 23:59 23:59 Intake Total 893 291 5775 550 Output Total 300 Balance 266 282 8962 550 Last Vital Signs Temp Pulse Resp BP Pulse Ox 99.5 F 107 H 14 134/50 96 08/18/17 09:36 08/18/17 09:36 08/18/17 09:36 08/18/17 09:36 08/17/17 21:00 Active Medications Acetaminophen (Tylenol -) 650 mg PO Q6H PRN PRN Reason: FEVER OR PAIN Last Admin: 08/17/17 18:08 Dose: 650 mg Albuterol/Ipratropium (Duoneb -) 1 amp NEB Q6H PRN PRN Reason: SHORTNESS OF BREATH Apixaban (Eliquis -) 5 mg PO BID [facility] Last Admin: 08/18/17 10:18 Dose: 5 mg Cholestyramine Resin (Questran Light Packet -) 4 gm PO DAILY [facility] Last Admin: 08/18/17 10:18 Dose: Not Given Collagenase (Santyl -) 1 applic TP DAILY [facility] Last Admin: 08/18/17 11:22 Dose: Not Given Diltiazem HCl (Cardizem Cd -) 120 mg PO DAILY [facility] Last Admin: 08/18/17 10:09 Dose: Not Given Ferrous Sulfate (Feosol -) 325 mg PO DAILY [facility] Last Admin: 08/18/17 09:24 Dose: 325 mg Fluconazole (Diflucan -) 100 mg PO DAILY [facility] Last Admin: 08/18/17 10:18 Dose: 100 mg Meropenem 500 mg/ Dextrose 100 mls @ 200 mls/hr IVPB Q8H-IV [facility] Last Admin: 08/18/17 09:25 Dose: 200 mls/hr Lactobacillus Acidophilus (Bacid -) 1 tab PO DAILY [facility] Last Admin: 08/18/17 09:24 Dose: 1 tab Levothyroxine Sodium (Synthroid -) 75 mcg PO DAILY@0700 [facility] Last Admin: 08/18/17 06:46 Dose: Not Given Lorazepam (Ativan -) 0.5 mg PO TID [facility] Last Admin: 08/18/17 06:46 Dose: Not Given Mirtazapine (Remeron -) 15 mg PO HS [facility] Last Admin: 08/17/17 21:47 Dose: 15 mg Nystatin (Nystop Powder -) 1 applic TP DAILY [facility] Last Admin: 08/18/17 11:22 Dose: 1 applic Oxycodone HCl (Roxicodone -) 5 mg PO Q6H PRN PRN Reason: PAIN Last Admin: 08/17/17 18:09 Dose: 5 mg Ranitidine HCl (Zantac -) 150 mg PO DAILY [facility] Last Admin: 08/18/17 09:24 Dose: 150 mg Ranolazine (Ranexa -) 500 mg PO BID [facility] Last Admin: 08/18/17 09:24 Dose: 500 mg Thiamine HCl (Vitamin B1 -) 100 mg PO DAILY [facility] Last Admin: 08/18/17 09:24 Dose: 100 mg Valsartan (Diovan -) 80 mg PO DAILY [facility] Constitutional: Yes: Now awake and responsive, vented Eyes: Yes: WNL HENT: Yes: Nasal Congestion Neck: Yes: Supple (trach) Cardiovascular: Yes: Pulse Irregular, S1, S2 Respiratory: Yes: Scattered rhonchi, no wheeze Gastrointestinal: Yes: Normal Bowel Sounds, Soft Extremities: Yes: WNL Edema: No Problem List - Problems (1) Fever Code(s): R50.9 - FEVER, UNSPECIFIED Qualifiers: Fever type: unspecified Qualified Code(s): R50.9 - Fever, unspecified; R50.9 - Fever, unspecified (2) Hematuria Code(s): R31.9 - HEMATURIA, UNSPECIFIED Qualifiers: Hematuria type: unspecified type Qualified Code(s): R31.9 - Hematuria, unspecified; R31.9 - Hematuria, unspecified (3) Sacral decubitus ulcer, stage II Code(s): L89.152 - PRESSURE ULCER OF SACRAL REGION, STAGE 2 (4) A-fib Code(s): I48.91 - UNSPECIFIED ATRIAL FIBRILLATION Qualifiers: (5) Acute on chronic respiratory failure with hypoxia and hypercapnia Code(s): J96.21 - ACUTE AND CHRONIC RESPIRATORY FAILURE WITH HYPOXIA J96.22 - ACUTE AND CHRONIC RESPIRATORY FAILURE WITH HYPERCAPNIA (6) Anemia Code(s): D64.9 - ANEMIA, UNSPECIFIED Qualifiers: Anemia type: unspecified type Qualified Code(s): D64.9 - Anemia, unspecified; D64.9 - Anemia, unspecified (7) COPD (chronic obstructive pulmonary disease) Code(s): J44.9 - CHRONIC OBSTRUCTIVE PULMONARY DISEASE, UNSPECIFIED Qualifiers : COPD type: unspecified COPD Qualified Code(s): J44.9 - Chronic obstructive pulmonary disease, unspecified; J44.9 - Chronic obstructive pulmonary disease, unspecified; J44.9 - Chronic obstructive pulmonary disease, unspecified; J44.9 - Chronic obstructive pulmonary disease, unspecified (8) Chest pain Code(s): R07.9 - CHEST PAIN, UNSPECIFIED Qualifiers: Chest pain type: pleurodynia Qualified Code(s): R07.81 - Pleurodynia ; R07.81 - Pleurodynia (9) Diastolic heart failure Code(s): I50.30 - UNSPECIFIED DIASTOLIC (CONGESTIVE) HEART FAILURE Qualifiers : Heart failure chronicity: chronic Qualified Code(s): I50.32 - Chronic diastolic (congestive) heart failure; I50.32 - Chronic diastolic ( congestive) heart failure; I50.32 - Chronic diastolic (congestive) heart failure ; I50.32 - Chronic diastolic (congestive) heart failure (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
--- NOTE | 2017-08-18 11:39 | PN ---
Progress Note (short form) - Note Progress Note: patient had rapid response events noted cuff deflated for meds got unresponsive when suctioned back and inflated she was awake spoke to sister lianne about possible peg placement for meds and nutrition npo iv meds for now Problem List - Problems (1) Hematuria Code(s): R31.9 - HEMATURIA, UNSPECIFIED Qualifiers: Hematuria type: unspecified type Qualified Code(s): R31.9 - Hematuria, unspecified; R31.9 - Hematuria, unspecified (2) A-fib Code(s): I48.91 - UNSPECIFIED ATRIAL FIBRILLATION Qualifiers: (3) Acute on chronic respiratory failure with hypoxia and hypercapnia Code(s): J96.21 - ACUTE AND CHRONIC RESPIRATORY FAILURE WITH HYPOXIA J96.22 - ACUTE AND CHRONIC RESPIRATORY FAILURE WITH HYPERCAPNIA (4) Fever Code(s): R50.9 - FEVER, UNSPECIFIED Qualifiers: Fever type: unspecified Qualified Code(s): R50.9 - Fever, unspecified; R50.9 - Fever, unspecified (5) Diastolic heart failure Code(s): I50.30 - UNSPECIFIED DIASTOLIC (CONGESTIVE) HEART FAILURE Qualifiers : Heart failure chronicity: chronic Qualified Code(s): I50.32 - Chronic diastolic (congestive) heart failure; I50.32 - Chronic diastolic ( congestive) heart failure; I50.32 - Chronic diastolic (congestive) heart failure ; I50.32 - Chronic diastolic (congestive) heart failure (6) Anemia Code(s): D64.9 - ANEMIA, UNSPECIFIED Qualifiers: Anemia type: unspecified type Qualified Code(s): D64.9 - Anemia, unspecified; D64.9 - Anemia, unspecified
--- NOTE | 2017-08-18 12:08 | CON.CARD ---
Consult Consult Specialty:: Cardiology Referred by:: Dr. White Reason for Consultation:: Chronic respiratory failure - History of Present Illness Chief Complaint: Dyspnea, fevers History of Present Illness: 67yo female with h/o HTN, COPD, chronic hypoxic respiratory failure s/p trach and maintained on trach collar, paroxysmal atrial fibrillation not on a/c due to fall risk referred from the alf for fever to 102, hematuria, anemia post transfusion, hyotension and tachycardia, started on abx and IVF for suspected UTI. She denies chest pain, palpitations, orthopnea, PND or LE edema, planned for PEG placement. Lethargic on vent earlier this AM while trach balloon was deflated for medication/PO feeds, resolved after balloon reinflation and trach suctioning, suspect brief episode of hypercapnea. - History Source History Provided By: Medical Record Limitations to Obtaining History: Physical Impairment - Past Medical History [employer]: Yes: CVA, Other (poor short term memory) Cardio/Vascular: Yes: AFIB, HTN Pulmonary: Yes: COPD, Previously Intubated, Other (RESPIRATORY FAILURE) Infectious Disease: Yes: C-Diff Endocrine: Yes: Hypothyroidism - Past Surgical History Past Surgical History: Yes: Appendectomy - Alcohol/Substance Use Hx Alcohol Use: No History of Substance Use: reports: None - Smoking History Smoking history: Unknown if ever smoked Have you smoked in the past 12 months: No If you are a former smoker, when did you quit?: 2008 - Social History Usual Living Arrangement: [facility]dc ADL: Family Assistance History of Recent Travel: No Home Medications - Allergies Allergies/Adverse Reactions: Allergies Allergy/AdvReac Type Severity Reaction Status Date / Time peas Allergy Severe Difficulty Verified 07/19/17 12:10 Breathing Iodinated Contrast- Oral and Allergy Verified 07/19/17 12:10 IV Dye [Iodinated Contrast Media - IV Dye] iodine Allergy Verified 07/19/17 12:10 - Home Medications Home Medications: Ambulatory Orders Albuterol 2.5/Ipratropium 0.5 [Duoneb -] 1 neb NEB TID 02/01/16 Aspirin [Ecotrin] 81 mg PO DAILY 02/01/16 Folic Acid 1 mg PO DAILY 02/01/16 Levothyroxine [Synthroid -] 75 mcg PO DAILY 02/01/16 Lorazepam 0.5 mg PO HS 02/01/16 Mirtazapine 15 mg PO HS 02/01/16 Thiamine HCl [Vitamin B1 -] 100 mg PO DAILY 02/01/16 Vitamin B Complex Vit C No.3 [B Complex with Vitamin C] 1 each PO DAILY Ranitidine [Zantac -] 150 mg PO DAILY tablet 02/09/16 Cholestyramine/Aspartame [Questran Light Packet -] 4 gm PO BID packet 06/14/17 Acetaminophen [Tylenol .Regular Strength -] 650 mg PO Q4H PRN #0 tablet Albuterol 0.083% Nebulizer Carina [Ventolin 0.083% Nebulizer Soln -] 1 amp NEB Q4H PRN #180 amp 06/23/17 Apixaban [Eliquis -] 5 mg PO BID tablet 06/23/17 Budesonide [Pulmicort 0.25 mg Nebulizer -] 1 amp NEB BID amp 06/23/17 Melatonin 5 mg PO HS tab 06/23/17 Oxycodone HCl [Roxicodone -] 5 mg PO Q4H PRN #0 tablet MDD 6 06/23/17 Valsartan [Diovan] 320 mg PO DAILY tablet 07/27/17 Aa/Hydrolyzed Collagen, Whey [Lps Neutral Flavor Liquid] 30 ml PO BID 08/12/17 Calcium Carbonate/Vitamin D3 [Oyster Shell 500-Vit D3 200 Tb] 1 each PO DAILY Diltiazem HCl [Cardizem LA] 120 mg PO DAILY 08/12/17 Fluconazole [Diflucan -] 100 mg PO DAILY 08/12/17 Iron 325 mg PO BID 08/12/17 Lactobacillus Acidophilus [Bacid -] 1 tab PO BID 08/12/17 Levofloxacin [Levaquin] 500 mg PO DAILY 08/12/17 Pantoprazole Sodium 40 mg PO DAILY 08/12/17 Polyvinyl Alcohol [Artificial Tears] 1 drop OD DAILY 08/12/17 Review of Systems Unable to obtain ROS, reason: Tracheostomy Vital Signs: Vital Signs Temperature 99.5 F 08/18/17 09:36 Pulse Rate 62 08/18/17 10:15 Respiratory Rate 22 08/18/17 10:15 Blood Pressure 134/50 08/18/17 09:36 O2 Sat by Pulse Oximetry (%) 96 08/18/17 10:15 Constitutional: Yes: No Distress, Calm, Thin Neck: Yes: Supple Respiratory: Yes: Mechanically Ventilated, Rhonchi Gastrointestinal: Yes: Normal Bowel Sounds, Soft Cardiovascular: Yes: Regular Rate and Rhythm JVD: No Carotid Bruit: No Heart Sounds: Yes: S1, S2 Murmur: Yes: Systolic Murmur, Grade 1 Edema: No - Other Data Labs, Other Data: CBC, BMP 08/17/17 08:15 08/17/17 08:15 INR, PTT INR 2.24 (0.82-1.09) H D 08/12/17 18:00 ST @ 117 Imaging - Results Chest X-ray: Report Reviewed (NAD) Problem List - Problems (1) Fever Code(s): R50.9 - FEVER, UNSPECIFIED Qualifiers: Fever type: unspecified Qualified Code(s): R50.9 - Fever, unspecified; R50.9 - Fever, unspecified (2) Hematuria Code(s): R31.9 - HEMATURIA, UNSPECIFIED Qualifiers: Hematuria type: unspecified type Qualified Code(s): R31.9 - Hematuria, unspecified; R31.9 - Hematuria, unspecified (3) Acute on chronic respiratory failure with hypoxia and hypercapnia Code(s): J96.21 - ACUTE AND CHRONIC RESPIRATORY FAILURE WITH HYPOXIA J96.22 - ACUTE AND CHRONIC RESPIRATORY FAILURE WITH HYPERCAPNIA (4) COPD (chronic obstructive pulmonary disease) Code(s): J44.9 - CHRONIC OBSTRUCTIVE PULMONARY DISEASE, UNSPECIFIED Qualifiers : COPD type: unspecified COPD Qualified Code(s): J44.9 - Chronic obstructive pulmonary disease, unspecified; J44.9 - Chronic obstructive pulmonary disease, unspecified; J44.9 - Chronic obstructive pulmonary disease, unspecified; J44.9 - Chronic obstructive pulmonary disease, unspecified (5) Diastolic heart failure Code(s): I50.30 - UNSPECIFIED DIASTOLIC (CONGESTIVE) HEART FAILURE Qualifiers : Heart failure chronicity: chronic Qualified Code(s): I50.32 - Chronic diastolic (congestive) heart failure; I50.32 - Chronic diastolic ( congestive) heart failure; I50.32 - Chronic diastolic (congestive) heart failure ; I50.32 - Chronic diastolic (congestive) heart failure (6) Hypothyroid Code(s): E03.9 - HYPOTHYROIDISM, UNSPECIFIED Qualifiers: Hypothyroidism type: unspecified Qualified Code(s): E03.9 - Hypothyroidism, unspecified; E03.9 - Hypothyroidism, unspecified; E03.9 - Hypothyroidism, unspecified (7) Tracheostomy dependence Code(s): Z93.0 - TRACHEOSTOMY STATUS (8) UTI (urinary tract infection) Code(s): N39.0 - URINARY TRACT INFECTION, SITE NOT SPECIFIED Qualifiers: Urinary tract infection type: site unspecified Hematuria presence: with hematuria Qualified Code(s): N39.0 - Urinary tract infection, site not specified; N39.0 - Urinary tract infection, site not specified; R31.9 - Hematuria, unspecified; R31.9 - Hematuria, unspecified (9) A-fib Code(s): I48.91 - UNSPECIFIED ATRIAL FIBRILLATION Qualifiers: Atrial fibrillation type: paroxysmal Qualified Code(s): I48.0 - Paroxysmal atrial fibrillation; I48.0 - Paroxysmal atrial fibrillation; I48.0 - Paroxysmal atrial fibrillation; I48.0 - Paroxysmal atrial fibrillation (10) Anticoagulant long-term use Code(s): Z79.01 - FDC (CURRENT) USE OF ANTICOAGULANTS Assessment/Plan Echo 09/09/2015: nl LV/EF, nl RV, mild MR 1. Fever, hematuria suspect UTI, r/o pneumonia with h/o multi-drug resistant organisms 2. COPD with Acute on Chronic Hypoxic/Hypercapneic Respiratory Failure post tracheostomy 3. Diastolic LV dysfunction with class I NYHA classification LV congestive heart failure, compensated/euvolemic 4. Paroxysmal Atrial Fibrillation/atrial tachycardia on NOAC, [id number] score of 4 5. HTN, BP not at goal 6. Hypothyroidism 7. History of C. Difficile Colitis 8. MARLYN and Hyperkalemia resolved 9. Anemia post transfusion P: 1. Complete Meropenem course, contact isolation 2. Inhaled bronchodilators, O2 to keep SpO2 >90%, GI prophylaxis 3. Continue Cardizem CD 120 qd, Diovan 80 qd, Questran 4 bid, unclear reason for being on Ranexa, would wean off 4. Continue Eliquis 5 bid for DVT and stroke thrombophylaxis given elevated risk score 5. Transfuse to maintain Hgb>8.0, may proceed with PEG placement from CV stand point, made NPO with trach balloon remaining inflated in meantime 6. Thank you for consultative opportunity
--- NOTE | 2017-08-18 12:37 | PN ---
Progress Note (short form) - Note Progress Note: spoke to sister lianne explained to her in detail about PEG she will discuss with patient then let me know appreciate cardiology evaluation if patient agrees will then have GI see the patient Problem List - Problems (1) Hematuria Code(s): R31.9 - HEMATURIA, UNSPECIFIED Qualifiers: Hematuria type: unspecified type Qualified Code(s): R31.9 - Hematuria, unspecified; R31.9 - Hematuria, unspecified (2) A-fib Code(s): I48.91 - UNSPECIFIED ATRIAL FIBRILLATION Qualifiers: (3) Acute on chronic respiratory failure with hypoxia and hypercapnia Code(s): J96.21 - ACUTE AND CHRONIC RESPIRATORY FAILURE WITH HYPOXIA J96.22 - ACUTE AND CHRONIC RESPIRATORY FAILURE WITH HYPERCAPNIA (4) Fever Code(s): R50.9 - FEVER, UNSPECIFIED Qualifiers: Fever type: unspecified Qualified Code(s): R50.9 - Fever, unspecified; R50.9 - Fever, unspecified (5) Diastolic heart failure Code(s): I50.30 - UNSPECIFIED DIASTOLIC (CONGESTIVE) HEART FAILURE Qualifiers : Heart failure chronicity: chronic Qualified Code(s): I50.32 - Chronic diastolic (congestive) heart failure; I50.32 - Chronic diastolic ( congestive) heart failure; I50.32 - Chronic diastolic (congestive) heart failure ; I50.32 - Chronic diastolic (congestive) heart failure (6) Anemia Code(s): D64.9 - ANEMIA, UNSPECIFIED Qualifiers: Anemia type: unspecified type Qualified Code(s): D64.9 - Anemia, unspecified; D64.9 - Anemia, unspecified
[2017-08-18] MEDS ORDERED: PT OWN MED DRAWER 7, Y5N ONE (12:45)
[2017-08-18] MEDS ORDERED: D5-1/2NS+20 MEQ KCL - 1,000 ML IV SCH (19:00)
[2017-08-18] MEDS: MIRTAZAPINE 15 MG TABLET (FP) PO SCH (21:27)
[2017-08-18] MEDS: ACETAMINOPHEN 650 MG SUPP.RECT PR PRN (23:38)
[2017-08-19 00:25] LABS: MCH 29.2 pg (25.7-33.7); MCHC 33.4 g/dl (32.0-36.0); MEAN CELL VOLUME 87.6 fl (80-96); MEAN PLT VOLUME 8.5 fl (7.5-11.1); PLATELET COUNT 589 K/MM3 (134-434); RDW 16.1 % (11.6-15.6); WHITE BLOOD COUNT 12.1 K/mm3 (4.0-10.0)
[2017-08-19 02:16] LABS: TOTAL CELLS COUNTED 100
[2017-08-19 02:17] LABS: METAMYELOCYTE 1 % (0-2); MYELOCYTE 2 % (0-2); REACTIVE LYMPHOCYTES 1 % (0-80)
[2017-08-19] MEDS: MEROPENEM 500 MG in DEXTROSE 5%-WATER - 100 ML IVPB SCH ×3 (03:00→17:26)
[2017-08-19] MEDS ORDERED: PT OWN MED DRAWER 7, Y5N ONE ×2 (03:34→17:05)
[2017-08-19] MEDS: LEVOTHYROXINE NA 75 MCG TABLET (FP) PO SCH (06:17)
--- NOTE | 2017-08-19 09:28 | PN ---
Progress Note (short form) - Note Progress Note: spoke to sister lianne yesterday evening she wants PEG placement GI eval ordered, NPO ivf Problem List - Problems (1) Hematuria Code(s): R31.9 - HEMATURIA, UNSPECIFIED Qualifiers: Hematuria type: unspecified type Qualified Code(s): R31.9 - Hematuria, unspecified; R31.9 - Hematuria, unspecified (2) A-fib Code(s): I48.91 - UNSPECIFIED ATRIAL FIBRILLATION Qualifiers: Atrial fibrillation type: paroxysmal Qualified Code(s): I48.0 - Paroxysmal atrial fibrillation; I48.0 - Paroxysmal atrial fibrillation; I48.0 - Paroxysmal atrial fibrillation; I48.0 - Paroxysmal atrial fibrillation (3) Acute on chronic respiratory failure with hypoxia and hypercapnia Code(s): J96.21 - ACUTE AND CHRONIC RESPIRATORY FAILURE WITH HYPOXIA J96.22 - ACUTE AND CHRONIC RESPIRATORY FAILURE WITH HYPERCAPNIA (4) Fever Code(s): R50.9 - FEVER, UNSPECIFIED Qualifiers: Fever type: unspecified Qualified Code(s): R50.9 - Fever, unspecified; R50.9 - Fever, unspecified (5) Diastolic heart failure Code(s): I50.30 - UNSPECIFIED DIASTOLIC (CONGESTIVE) HEART FAILURE Qualifiers : Heart failure chronicity: chronic Qualified Code(s): I50.32 - Chronic diastolic (congestive) heart failure; I50.32 - Chronic diastolic ( congestive) heart failure; I50.32 - Chronic diastolic (congestive) heart failure ; I50.32 - Chronic diastolic (congestive) heart failure (6) Anemia Code(s): D64.9 - ANEMIA, UNSPECIFIED Qualifiers: Anemia type: unspecified type Qualified Code(s): D64.9 - Anemia, unspecified; D64.9 - Anemia, unspecified
[2017-08-19] MEDS ORDERED: DEXTROSE 5%-0.45% SALINE 1,000 ML IV SCH (09:30)
--- NOTE | 2017-08-19 09:39 | PN ---
Progress Note, Physician History of Present Illness: No further aspiration episodes, she is now NPO, health care proxy agrees to PEG placement. - Current Medication List Current Medications: Active Medications Acetaminophen (Tylenol -) 650 mg PO Q6H PRN PRN Reason: FEVER OR PAIN Last Admin: 08/17/17 18:08 Dose: 650 mg Acetaminophen (Tylenol Suppository -) 650 mg NE Q6H PRN PRN Reason: FEVER OR PAIN Last Admin: 08/18/17 23:38 Dose: 650 mg Albuterol/Ipratropium (Duoneb -) 1 amp NEB Q6H PRN PRN Reason: SHORTNESS OF BREATH Apixaban (Eliquis -) 5 mg PO BID [facility] Last Admin: 08/18/17 21:27 Dose: Not Given Cholestyramine Resin (Questran Light Packet -) 4 gm PO DAILY [facility] Last Admin: 08/18/17 10:18 Dose: Not Given Collagenase (Santyl -) 1 applic TP DAILY [facility] Last Admin: 08/18/17 11:22 Dose: Not Given Diltiazem HCl (Cardizem Cd -) 120 mg PO DAILY [facility] Last Admin: 08/18/17 10:09 Dose: Not Given Ferrous Sulfate (Feosol -) 325 mg PO DAILY [facility] Last Admin: 08/18/17 09:24 Dose: 325 mg Fluconazole (Diflucan -) 100 mg PO DAILY [facility] Last Admin: 08/18/17 10:18 Dose: 100 mg Meropenem 500 mg/ Dextrose 100 mls @ 200 mls/hr IVPB Q8H-IV [facility] Last Admin: 08/19/17 03:00 Dose: 200 mls/hr Potassium Chloride/Dextrose/Sod Cl (D5-1/2ns+20 Meq Kcl -) 1,000 mls @ 60 mls/ hr IV [facility]IR [facility] Last Admin: 08/18/17 20:17 Dose: 60 mls/hr Dextrose/Sodium Chloride (D5-1/2ns -) 1,000 mls @ 42 mls/hr IV ASDIR [facility] Lactobacillus Acidophilus (Bacid -) 1 tab PO DAILY [facility] Last Admin: 08/18/17 09:24 Dose: 1 tab Levothyroxine Sodium (Synthroid -) 75 mcg PO DAILY@0700 [facility] Last Admin: 08/19/17 06:17 Dose: Not Given Lorazepam (Ativan Injection -) 0.5 mg IVPUSH TID PRN PRN Reason: ANXIETY Mirtazapine (Remeron -) 15 mg PO HS [facility] Last Admin: 08/18/17 21:27 Dose: Not Given Nystatin (Nystop Powder -) 1 applic TP DAILY [facility] Last Admin: 08/18/17 11:22 Dose: 1 applic Oxycodone HCl (Roxicodone -) 5 mg PO Q6H PRN PRN Reason: PAIN Last Admin: 08/17/17 18:09 Dose: 5 mg Ranitidine HCl (Zantac -) 150 mg PO DAILY [facility] Last Admin: 08/18/17 09:24 Dose: 150 mg Ranolazine (Ranexa -) 500 mg PO DAILY [facility] Stop: 08/20/17 08:00 Thiamine HCl (Vitamin B1 -) 100 mg PO DAILY [facility] Last Admin: 08/18/17 09:24 Dose: 100 mg Valsartan (Diovan -) 80 mg PO DAILY [facility] - Objective Vital Signs: Vital Signs Temperature 98.3 F 08/19/17 08:53 Pulse Rate 96 H 08/19/17 08:53 Respiratory Rate 14 08/19/17 08:53 Blood Pressure 113/53 08/19/17 08:53 O2 Sat by Pulse Oximetry (%) 98 08/19/17 00:46 Neck: Yes: Other (Trach in place) Cardiovascular: Yes: Regular Rate and Rhythm Respiratory: Yes: Regular, Diminished, Mechanically Ventilated Gastrointestinal: Yes: Soft, Hypoactive Bowel Sounds Edema: No Labs: CBC, BMP 08/18/17 11:45 08/17/17 08:15 INR, PTT INR 2.24 (0.82-1.09) H D 08/12/17 18:00 - ....Imaging Chest X-ray: Report Reviewed (NAD, stable) Problem List - Problems (1) Fever Code(s): R50.9 - FEVER, UNSPECIFIED Qualifiers: Fever type: unspecified Qualified Code(s): R50.9 - Fever, unspecified; R50.9 - Fever, unspecified (2) Hematuria Code(s): R31.9 - HEMATURIA, UNSPECIFIED Qualifiers: Hematuria type: unspecified type Qualified Code(s): R31.9 - Hematuria, unspecified; R31.9 - Hematuria, unspecified (3) Acute on chronic respiratory failure with hypoxia and hypercapnia Code(s): J96.21 - ACUTE AND CHRONIC RESPIRATORY FAILURE WITH HYPOXIA J96.22 - ACUTE AND CHRONIC RESPIRATORY FAILURE WITH HYPERCAPNIA (4) COPD (chronic obstructive pulmonary disease) Code(s): J44.9 - CHRONIC OBSTRUCTIVE PULMONARY DISEASE, UNSPECIFIED Qualifiers : COPD type: unspecified COPD Qualified Code(s): J44.9 - Chronic obstructive pulmonary disease, unspecified; J44.9 - Chronic obstructive pulmonary disease, unspecified; J44.9 - Chronic obstructive pulmonary disease, unspecified; J44.9 - Chronic obstructive pulmonary disease, unspecified (5) Diastolic heart failure Code(s): I50.30 - UNSPECIFIED DIASTOLIC (CONGESTIVE) HEART FAILURE Qualifiers : Heart failure chronicity: chronic Qualified Code(s): I50.32 - Chronic diastolic (congestive) heart failure; I50.32 - Chronic diastolic ( congestive) heart failure; I50.32 - Chronic diastolic (congestive) heart failure ; I50.32 - Chronic diastolic (congestive) heart failure (6) Hypothyroid Code(s): E03.9 - HYPOTHYROIDISM, UNSPECIFIED Qualifiers: Hypothyroidism type: unspecified Qualified Code(s): E03.9 - Hypothyroidism, unspecified; E03.9 - Hypothyroidism, unspecified; E03.9 - Hypothyroidism, unspecified (7) Tracheostomy dependence Code(s): Z93.0 - TRACHEOSTOMY STATUS (8) UTI (urinary tract infection) Code(s): N39.0 - URINARY TRACT INFECTION, SITE NOT SPECIFIED Qualifiers: Urinary tract infection type: site unspecified Hematuria presence: with hematuria Qualified Code(s): N39.0 - Urinary tract infection, site not specified; N39.0 - Urinary tract infection, site not specified; R31.9 - Hematuria, unspecified; R31.9 - Hematuria, unspecified (9) A-fib Code(s): I48.91 - UNSPECIFIED ATRIAL FIBRILLATION Qualifiers: Atrial fibrillation type: paroxysmal Qualified Code(s): I48.0 - Paroxysmal atrial fibrillation; I48.0 - Paroxysmal atrial fibrillation; I48.0 - Paroxysmal atrial fibrillation; I48.0 - Paroxysmal atrial fibrillation (10) Anticoagulant long-term use Code(s): Z79.01 - HALF-WAY (CURRENT) USE OF ANTICOAGULANTS Assessment/Plan Echo 09/09/2015: nl LV/EF, nl RV, mild MR 1. Fever, hematuria suspect UTI, r/o pneumonia with h/o multi-drug resistant organisms 2. COPD with Acute on Chronic Hypoxic/Hypercapneic Respiratory Failure post tracheostomy 3. Diastolic LV dysfunction with class I NYHA classification LV congestive heart failure, compensated/euvolemic 4. Paroxysmal Atrial Fibrillation/atrial tachycardia on NOAC, [id number] score of 4 5. HTN, BP not at goal 6. Hypothyroidism 7. History of C. Difficile Colitis 8. MARLYN and Hyperkalemia resolved 9. Anemia post transfusion P: 1. Complete Meropenem course, contact isolation 2. Inhaled bronchodilators, O2 to keep SpO2 >90%, GI prophylaxis 3. Not on Cardizem CD 120 qd, Diovan 80 qd, Questran 4 bid given NPO status 4. Not on Eliquis 5 bid for DVT and stroke thrombophylaxis due to NPO status, start heparin sc 5. Transfuse to maintain Hgb>8.0, may proceed with PEG placement from CV stand point, made NPO with trach balloon remaining inflated in meantime, consider NGT for meds and enteral feeds in interim
[2017-08-19] MEDS: FLUCONAZOLE 100 MG TABLET (UD) PO SCH ×2 (10:00→14:02)
[2017-08-19] MEDS ORDERED: RANOLAZINE E.R. 500 MG TABLET (FP) PO SCH (10:00)
[2017-08-19] MEDS ORDERED: HEPARIN NA (PORCINE) 5,000 UNITS/ML 1ML VIAL SQ SCH (10:00)
[2017-08-19] MEDS: NYSTATIN POWDER 100,000 UNITS/GM - 15 GM TOPICAL POWDER TP SCH (10:01)
[2017-08-19] MEDS: COLLAGENASE CLOSTRIDIUM HIST. 30 GRAMS TUBE TP SCH (10:26)
[2017-08-19] MEDS: LACTOBACILLUS ACIDOPHILUS 1 EACH TAB (FP) PO SCH (11:36)
[2017-08-19] MEDS: THIAMINE HCL 100 MG TABLET (FP) PO SCH (11:37)
[2017-08-19] MEDS: FERROUS SO4 325 MG TABLET (FP) PO SCH (11:37)
[2017-08-19] MEDS: RANITIDINE HCL 150 MG TABLET (FP) PO SCH (11:37)
[2017-08-19] MEDS: CHOLESTYRAMINE/ASPARTAME 4 GM PACKET PO SCH (11:38)
[2017-08-19] MEDS: VALSARTAN 80 MG TABLET (UD) PO SCH (11:38)
--- NOTE | 2017-08-19 12:35 | PN ---
Progress Note (short form) - Note Progress Note: PULMONARY AFEBRILE TODAY SPEAKING AROUND TRACH VSS REPORTS NO ISSUES PALE/ANICTERIC DIMINISHED WITH POOR INSPIRATORY SOUNDS S1S2 IRREGULAR BS+ NO EDEMA LABS/MEDS/NOTES/IMAGES/VENT SETTING/ABG REVIEWED IMP ACUTE ON CHRONIC HYPOXEMIC/HYPERCAPNEIC RESPIRATORY FAILURE FEVER ANEMIA COPD AFIB HEMATURIA DIASTOLIC HF PLAN CONTINUE CURRENT VENT SETTINGS MAY NEED PEG PLACEMENT INHALED BRONCHODILATORS NORMAL TRANSFUSION THRESHOLDS ANTIBIOTICS PER PRIMARY TEAM
--- NOTE | 2017-08-19 14:30 | PN ---
Progress Note, Physician Chief Complaint: UTI, Fever History of Present Illness: NAD, on mech vent afebrile overnight on IV abx ID consult Had rapid response yesterday after medication administration there was an order for PEG evaluation - Current Medication List Current Medications: Active Medications Acetaminophen (Tylenol -) 650 mg PO Q6H PRN PRN Reason: FEVER OR PAIN Last Admin: 08/17/17 18:08 Dose: 650 mg Acetaminophen (Tylenol Suppository -) 650 mg LA Q6H PRN PRN Reason: FEVER OR PAIN Last Admin: 08/18/17 23:38 Dose: 650 mg Albuterol/Ipratropium (Duoneb -) 1 amp NEB Q6H PRN PRN Reason: SHORTNESS OF BREATH Apixaban (Eliquis -) 5 mg PO BID [facility] Cholestyramine Resin (Questran Light Packet -) 4 gm PO DAILY [facility] Last Admin: 08/19/17 11:38 Dose: Not Given Collagenase (Santyl -) 1 applic TP DAILY [facility] Last Admin: 08/19/17 10:26 Dose: 1 applic Diltiazem HCl (Cardizem Cd -) 120 mg PO DAILY [facility] Last Admin: 08/19/17 11:37 Dose: 120 mg Ferrous Sulfate (Feosol -) 325 mg PO DAILY [facility] Last Admin: 08/19/17 11:37 Dose: 325 mg Meropenem 500 mg/ Dextrose 100 mls @ 200 mls/hr IVPB Q8H-IV [facility] Last Admin: 08/19/17 09:56 Dose: 200 mls/hr Dextrose/Sodium Chloride (D5-1/2ns -) 1,000 mls @ 42 mls/hr IV ASDIR [facility] Last Admin: 08/19/17 09:57 Dose: 42 mls/hr Lactobacillus Acidophilus (Bacid -) 1 tab PO DAILY [facility] Last Admin: 08/19/17 11:36 Dose: 1 tab Levothyroxine Sodium (Synthroid -) 75 mcg PO DAILY@0700 [facility] Last Admin: 08/19/17 06:17 Dose: Not Given Lorazepam (Ativan Injection -) 0.5 mg IVPUSH TID PRN PRN Reason: ANXIETY Mirtazapine (Remeron -) 15 mg PO HS [facility] Last Admin: 08/18/17 21:27 Dose: Not Given Nystatin (Nystop Powder -) 1 applic TP DAILY [facility] Last Admin: 08/19/17 10:01 Dose: 1 applic Oxycodone HCl (Roxicodone -) 5 mg PO Q6H PRN PRN Reason: PAIN Last Admin: 08/17/17 18:09 Dose: 5 mg Ranitidine HCl (Zantac -) 150 mg PO DAILY [facility] Last Admin: 08/19/17 11:37 Dose: 150 mg Ranolazine (Ranexa -) 500 mg PO DAILY [facility] Stop: 08/20/17 08:00 Last Admin: 08/19/17 11:37 Dose: 500 mg Thiamine HCl (Vitamin B1 -) 100 mg PO DAILY [facility] Last Admin: 08/19/17 11:37 Dose: 100 mg Valsartan (Diovan -) 80 mg PO DAILY [facility] Last Admin: 08/19/17 11:38 Dose: Not Given - Objective Vital Signs: Vital Signs Temperature 98.9 F 08/19/17 10:27 Pulse Rate 96 H 08/19/17 10:56 Respiratory Rate 16 08/19/17 13:54 Blood Pressure 113/53 08/19/17 08:53 O2 Sat by Pulse Oximetry (%) 98 08/19/17 10:56 Constitutional: Yes: Well Nourished, No Distress, Calm Cardiovascular: Yes: Regular Rate and Rhythm Respiratory: Yes: Regular Musculoskeletal: Yes: WNL Extremities: Yes: WNL Edema: No Peripheral Pulses WNL: Yes Neurological: Yes: Alert, Oriented Psychiatric: Yes: Alert, Oriented Labs: CBC, BMP 08/18/17 11:45 08/17/17 08:15 INR, PTT INR 2.24 (0.82-1.09) H D 08/12/17 18:00 Problem List - Problems (1) Fever Assessment/Plan: -afebrile overnight -seen by ID -BC negative -UC, SC and WC : Microbiology 08/12/17 18:10 Blood Culture - Final Blood - Peripheral Venous NO GROWTH AFTER 5 DAYS INCUBATION 08/12/17 18:00 Blood Culture - Final Blood - Peripheral Venous NO GROWTH AFTER 5 DAYS INCUBATION 08/15/17 17:45 Gram Stain - Final Sputum - Endotrachea Suction/Ventilator Sputum Culture - Preliminary Staphylococcus Latex Coag Pos 08/15/17 17:45 Gram Stain - Final Decubiti Wound Culture - Preliminary Presumptive Mrsa (Pbp2a Pos) Pending Organism 08/15/17 17:45 Urine Culture - Final Urine - Urine - Catheterized Yeast Like Organism -IV abx -Tylenol for fever over 100.0 F Code(s): R50.9 - FEVER, UNSPECIFIED Qualifiers: Fever type: unspecified Qualified Code(s): R50.9 - Fever, unspecified; R50.9 - Fever, unspecified (2) Hematuria Assessment/Plan: -+3 urine in UA -Urology consult pending -D/C Nelson catheter Code(s): R31.9 - HEMATURIA, UNSPECIFIED Qualifiers: Hematuria type: unspecified type Qualified Code(s): R31.9 - Hematuria, unspecified; R31.9 - Hematuria, unspecified (3) Sacral decubitus ulcer, stage II Assessment/Plan: -seen by Vascular -offloading to the area -santyl -wound culture shows MRSA and VRE Code(s): L89.152 - PRESSURE ULCER OF SACRAL REGION, STAGE 2 (4) Systemic inflammatory response syndrome (SIRS) Assessment/Plan: -seen by ID -IV abx -Tylenol for fever over 100.0F Code(s): R65.10 - SIRS OF NON-INFECTIOUS ORIGIN W/O ACUTE ORGAN DYSFUNCTION (5) A-fib Assessment/Plan: -Chronic -controlled -D/C heparin, placed back on Eliquis Code(s): I48.91 - UNSPECIFIED ATRIAL FIBRILLATION Qualifiers: Atrial fibrillation type: paroxysmal Qualified Code(s): I48.0 - Paroxysmal atrial fibrillation; I48.0 - Paroxysmal atrial fibrillation; I48.0 - Paroxysmal atrial fibrillation; I48.0 - Paroxysmal atrial fibrillation (6) Acute and chronic respiratory failure with hypoxia Assessment/Plan: -on mechanical vent -[facility]es [facility], would give her a trial once stable Code(s): J96.21 - ACUTE AND CHRONIC RESPIRATORY FAILURE WITH HYPOXIA Assessment/Plan Patient swallowed her medication in my presence. I think yesterday's incidence was just one time, would observe for now hold PEG placement, Spoke to Pulmonary. Nursing instructions during medication administration: place pt on 100% O2 on vent, suction, deflate cuff, administer meds, inflate cuff and place pt back on original FiO2 Also,see problem list.
--- NOTE | 2017-08-19 15:15 | PN ---
Progress Note, Physician History of Present Illness: Remains intermittantly febrile No complaints No chest pain/ dyspnea. No dysuria No diarrhea WBC 12k BC (-) - Current Medication List Current Medications: Active Medications Acetaminophen (Tylenol -) 650 mg PO Q6H PRN PRN Reason: FEVER OR PAIN Last Admin: 08/17/17 18:08 Dose: 650 mg Acetaminophen (Tylenol Suppository -) 650 mg IN Q6H PRN PRN Reason: FEVER OR PAIN Last Admin: 08/18/17 23:38 Dose: 650 mg Albuterol/Ipratropium (Duoneb -) 1 amp NEB Q6H PRN PRN Reason: SHORTNESS OF BREATH Apixaban (Eliquis -) 5 mg PO BID [facility] Cholestyramine Resin (Questran Light Packet -) 4 gm PO DAILY [facility] Last Admin: 08/19/17 11:38 Dose: Not Given Collagenase (Santyl -) 1 applic TP DAILY [facility] Last Admin: 08/19/17 10:26 Dose: 1 applic Diltiazem HCl (Cardizem Cd -) 120 mg PO DAILY [facility] Last Admin: 08/19/17 11:37 Dose: 120 mg Ferrous Sulfate (Feosol -) 325 mg PO DAILY [facility] Last Admin: 08/19/17 11:37 Dose: 325 mg Meropenem 500 mg/ Dextrose 100 mls @ 200 mls/hr IVPB Q8H-IV [facility] Last Admin: 08/19/17 09:56 Dose: 200 mls/hr Dextrose/Sodium Chloride (D5-1/2ns -) 1,000 mls @ 42 mls/hr IV [facility]IR [facility] Last Admin: 08/19/17 09:57 Dose: 42 mls/hr Lactobacillus Acidophilus (Bacid -) 1 tab PO DAILY [facility] Last Admin: 08/19/17 11:36 Dose: 1 tab Levothyroxine Sodium (Synthroid -) 75 mcg PO DAILY@0700 [facility] Last Admin: 08/19/17 06:17 Dose: Not Given Lorazepam (Ativan Injection -) 0.5 mg IVPUSH TID PRN PRN Reason: ANXIETY Mirtazapine (Remeron -) 15 mg PO HS [facility] Last Admin: 08/18/17 21:27 Dose: Not Given Nystatin (Nystop Powder -) 1 applic TP DAILY [facility] Last Admin: 08/19/17 10:01 Dose: 1 applic Oxycodone HCl (Roxicodone -) 5 mg PO Q6H PRN PRN Reason: PAIN Last Admin: 08/17/17 18:09 Dose: 5 mg Ranitidine HCl (Zantac -) 150 mg PO DAILY [facility] Last Admin: 08/19/17 11:37 Dose: 150 mg Ranolazine (Ranexa -) 500 mg PO DAILY [facility] Stop: 08/20/17 08:00 Last Admin: 08/19/17 11:37 Dose: 500 mg Thiamine HCl (Vitamin B1 -) 100 mg PO DAILY [facility] Last Admin: 08/19/17 11:37 Dose: 100 mg Valsartan (Diovan -) 80 mg PO DAILY [facility] Last Admin: 08/19/17 11:38 Dose: Not Given - Objective Vital Signs: Vital Signs Temperature 98.9 F 08/19/17 10:27 Pulse Rate 96 H 08/19/17 10:56 Respiratory Rate 16 08/19/17 13:54 Blood Pressure 113/53 08/19/17 08:53 O2 Sat by Pulse Oximetry (%) 98 08/19/17 10:56 Constitutional: Yes: No Distress, Cachectic Cardiovascular: Yes: Regular Rate and Rhythm, S1, S2 Respiratory: Yes: Diminished Gastrointestinal: Yes: Normal Bowel Sounds, Soft. No: Tenderness Edema: No Labs: CBC, BMP 08/18/17 11:45 08/17/17 08:15 INR, PTT INR 2.24 (0.82-1.09) H D 08/12/17 18:00 Assessment/Plan FUO Resp failure Hx MRSA/VRE colonization In light of continued fever, will D/C antibiotics, observe Reculture off antibiotics for recurrent fever
[2017-08-19] MEDS: APIXABAN 5 MG TABLET PO SCH ×2 (16:05→22:15)
--- NOTE | 2017-08-19 16:46 | CON.GU ---
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, Other (poor short term memory) Cardio/Vascular: Yes: AFIB, HTN Pulmonary: Yes: COPD, Previously Intubated, Other (RESPIRATORY FAILURE) Infectious Disease: Yes: C-Diff Endocrine: Yes: Hypothyroidism - Past Surgical History Past Surgical History: Yes: Appendectomy - Alcohol/Substance Use Hx Alcohol Use: No History of Substance Use: reports: None - Smoking History Smoking history: Unknown if ever smoked Have you smoked in the past 12 months: No If you are a former smoker, when did you quit?: 2008 - Social History Usual Living Arrangement: Retirement ADL: Family Assistance History of Recent Travel: No Home Medications - Allergies Allergies/Adverse Reactions: Allergies Allergy/AdvReac Type Severity Reaction Status Date / Time peas Allergy Severe Difficulty Verified 07/19/17 12:10 Breathing Iodinated Contrast- Oral and Allergy Verified 07/19/17 12:10 IV Dye [Iodinated Contrast Media - IV Dye] iodine Allergy Verified 07/19/17 12:10 - Home Medications Home Medications: Ambulatory Orders Albuterol 2.5/Ipratropium 0.5 [Duoneb -] 1 neb NEB TID 02/01/16 Aspirin [Ecotrin] 81 mg PO DAILY 02/01/16 Folic Acid 1 mg PO DAILY 02/01/16 Levothyroxine [Synthroid -] 75 mcg PO DAILY 02/01/16 Lorazepam 0.5 mg PO HS 02/01/16 Mirtazapine 15 mg PO HS 02/01/16 Thiamine HCl [Vitamin B1 -] 100 mg PO DAILY 02/01/16 Vitamin B Complex Vit C No.3 [B Complex with Vitamin C] 1 each PO DAILY Ranitidine [Zantac -] 150 mg PO DAILY tablet 02/09/16 Cholestyramine/Aspartame [Questran Light Packet -] 4 gm PO BID packet 06/14/17 Acetaminophen [Tylenol .Regular Strength -] 650 mg PO Q4H PRN #0 tablet Albuterol 0.083% Nebulizer Carina [Ventolin 0.083% Nebulizer Soln -] 1 amp NEB Q4H PRN #180 amp 06/23/17 Apixaban [Eliquis -] 5 mg PO BID tablet 06/23/17 Budesonide [Pulmicort 0.25 mg Nebulizer -] 1 amp NEB BID amp 06/23/17 Melatonin 5 mg PO HS tab 06/23/17 Oxycodone HCl [Roxicodone -] 5 mg PO Q4H PRN #0 tablet MDD 6 06/23/17 Valsartan [Diovan] 320 mg PO DAILY tablet 07/27/17 Aa/Hydrolyzed Collagen, Whey [Lps Neutral Flavor Liquid] 30 ml PO BID 08/12/17 Calcium Carbonate/Vitamin D3 [Oyster Shell 500-Vit D3 200 Tb] 1 each PO DAILY Diltiazem HCl [Cardizem LA] 120 mg PO DAILY 08/12/17 Fluconazole [Diflucan -] 100 mg PO DAILY 08/12/17 Iron 325 mg PO BID 08/12/17 Lactobacillus Acidophilus [Bacid -] 1 tab PO BID 08/12/17 Levofloxacin [Levaquin] 500 mg PO DAILY 08/12/17 Pantoprazole Sodium 40 mg PO DAILY 08/12/17 Polyvinyl Alcohol [Artificial Tears] 1 drop OD DAILY 08/12/17 Review of Systems - Review of Systems Genitourinary: reports: Hematuria. denies: Flank Pain, Frequency Physical Exam- Vital Signs: Vital Signs Temperature 98.1 F 08/19/17 16:04 Pulse Rate 102 H 08/19/17 16:04 Respiratory Rate 14 08/19/17 16:04 Blood Pressure 128/67 08/19/17 16:04 O2 Sat by Pulse Oximetry (%) 98 08/19/17 10:56 Constitutional: Yes: Cachectic Gastrointestinal: Yes: Soft Renal/: No: Bladder Distention, CVA Tenderness - Left, CVA Tenderness - Right Labs: CBC, BMP 08/18/17 11:45 08/17/17 08:15 Problem List - Problems (1) Hematuria Assessment/Plan: hematuria with UTI. US recommended. will follow Code(s): R31.9 - HEMATURIA, UNSPECIFIED Qualifiers: Hematuria type: unspecified type Qualified Code(s): R31.9 - Hematuria, unspecified; R31.9 - Hematuria, unspecified
[2017-08-19 16:58] LABS: MCH 29.1 pg (25.7-33.7); MCHC 33.3 g/dl (32.0-36.0); MEAN CELL VOLUME 87.3 fl (80-96); MEAN PLT VOLUME 8.1 fl (7.5-11.1); PLATELET COUNT 558 K/MM3 (134-434); RDW 16.3 % (11.6-15.6); WHITE BLOOD COUNT 13.1 K/mm3 (4.0-10.0)
[2017-08-19 17:20] LABS: ALBUMIN 2.1 g/dl (3.4-5.0); ANION GAP 5 (8-16); CALCIUM 8.4 mg/dL (8.5-10.1); CO2 33 mmol/L (21-32); GLUCOSE,RANDOM 88 mg/dL (74-106)
[2017-08-19 17:25] LABS: ALK PHOS 100 U/L (45-117); BILIRUBIN,TOTAL 0.5 mg/dL (0.2-1.0); CREATININE 0.5 mg/dL (0.55-1.02); SGOT/AST 14 U/L (15-37); SGPT/ALT 13 U/L (12-78); TOT PROT 5.5 g/dl (6.4-8.2)
[2017-08-19 19:16] LABS: PLATELET ESTIMATE SLT INCREASED (NORMAL); TOTAL CELLS COUNTED 100
[2017-08-19 19:17] LABS: METAMYELOCYTE 1 % (0-2); MYELOCYTE 2 % (0-2); REACTIVE LYMPHOCYTES 3 % (0-80)
[2017-08-19] MEDS: SODIUM CHLORIDE 1,000 ML IV SCH (20:55)
[2017-08-19] MEDS: MIRTAZAPINE 15 MG TABLET (FP) PO SCH (21:46)
[2017-08-20] MEDS: MEROPENEM 500 MG in DEXTROSE 5%-WATER - 100 ML IVPB SCH (01:36)
[2017-08-20] MEDS: ACETAMINOPHEN 650 MG SUPP.RECT PR PRN (02:20)
[2017-08-20] MEDS: LEVOTHYROXINE NA 75 MCG TABLET (FP) PO SCH (06:46)
[2017-08-20] MEDS ORDERED: PT OWN MED DRAWER 7, Y5N ONE ×2 (08:33→20:01)
--- NOTE | 2017-08-20 09:54 | PN ---
Progress Note, Physician History of Present Illness: Remains febrile No focal complaint denies chest pain/ dyspnea/ cough No c/o dysuria No vomiting or diarrhea - Current Medication List Current Medications: Active Medications Acetaminophen (Tylenol -) 650 mg PO Q6H PRN PRN Reason: FEVER OR PAIN Last Admin: 08/17/17 18:08 Dose: 650 mg Acetaminophen (Tylenol Suppository -) 650 mg NM Q6H PRN PRN Reason: FEVER OR PAIN Last Admin: 08/20/17 02:20 Dose: 650 mg Albuterol/Ipratropium (Duoneb -) 1 amp NEB Q6H PRN PRN Reason: SHORTNESS OF BREATH Apixaban (Eliquis -) 5 mg PO BID [facility] Last Admin: 08/19/17 22:15 Dose: 5 mg Cholestyramine Resin (Questran Light Packet -) 4 gm PO DAILY [facility] Last Admin: 08/19/17 11:38 Dose: Not Given Collagenase (Santyl -) 1 applic TP DAILY [facility] Last Admin: 08/19/17 10:26 Dose: 1 applic Diltiazem HCl (Cardizem Cd -) 120 mg PO DAILY [facility] Last Admin: 08/19/17 11:37 Dose: 120 mg Ferrous Sulfate (Feosol -) 325 mg PO DAILY [facility] Last Admin: 08/19/17 11:37 Dose: 325 mg Sodium Chloride (Normal Saline -) 1,000 mls @ 42 mls/hr IV [facility] Last Admin: 08/19/17 20:55 Dose: 42 mls/hr Lactobacillus Acidophilus (Bacid -) 1 tab PO DAILY [facility] Last Admin: 08/19/17 11:36 Dose: 1 tab Levothyroxine Sodium (Synthroid -) 75 mcg PO DAILY@0700 [facility] Last Admin: 08/20/17 06:46 Dose: 75 mcg Lorazepam (Ativan Injection -) 0.5 mg IVPUSH TID PRN PRN Reason: ANXIETY Mirtazapine (Remeron -) 15 mg PO HS [facility] Last Admin: 08/19/17 21:46 Dose: 15 mg Nystatin (Nystop Powder -) 1 applic TP DAILY [facility] Last Admin: 08/19/17 10:01 Dose: 1 applic Oxycodone HCl (Roxicodone -) 5 mg PO Q6H PRN PRN Reason: PAIN Last Admin: 08/17/17 18:09 Dose: 5 mg Ranitidine HCl (Zantac -) 150 mg PO DAILY [facility] Last Admin: 08/19/17 11:37 Dose: 150 mg Thiamine HCl (Vitamin B1 -) 100 mg PO DAILY [facility] Last Admin: 08/19/17 11:37 Dose: 100 mg Valsartan (Diovan -) 80 mg PO DAILY [facility] Last Admin: 08/19/17 11:38 Dose: Not Given - Objective Vital Signs: Vital Signs Temperature 98.4 F 08/20/17 09:24 Pulse Rate 101 H 08/20/17 09:24 Respiratory Rate 14 08/20/17 09:24 Blood Pressure 115/58 08/20/17 09:24 O2 Sat by Pulse Oximetry (%) 98 08/19/17 10:56 Constitutional: Yes: No Distress, Cachectic Cardiovascular: Yes: Regular Rate and Rhythm, S1, S2 Respiratory: Yes: Diminished Gastrointestinal: Yes: Normal Bowel Sounds, Soft. No: Tenderness Edema: No Labs: CBC, BMP 08/19/17 16:20 08/19/17 16:20 INR, PTT INR 2.24 (0.82-1.09) H D 08/12/17 18:00 Assessment/Plan FUO Resp failure Hx MRSA/VRE colonization In light of continued fever, will D/C antibiotics, observe Reculture off antibiotics for recurrent fever
[2017-08-20] MEDS: VALSARTAN 80 MG TABLET (UD) PO SCH (10:24)
[2017-08-20] MEDS: CHOLESTYRAMINE/ASPARTAME 4 GM PACKET PO SCH (10:25)
[2017-08-20] MEDS: NYSTATIN POWDER 100,000 UNITS/GM - 15 GM TOPICAL POWDER TP SCH (10:30)
[2017-08-20] MEDS: RANITIDINE HCL 150 MG TABLET (FP) PO SCH (10:31)
[2017-08-20] MEDS: FERROUS SO4 325 MG TABLET (FP) PO SCH (10:31)
[2017-08-20] MEDS: LACTOBACILLUS ACIDOPHILUS 1 EACH TAB (FP) PO SCH (10:31)
[2017-08-20] MEDS: APIXABAN 5 MG TABLET PO SCH ×2 (10:31→21:12)
[2017-08-20] MEDS: THIAMINE HCL 100 MG TABLET (FP) PO SCH (10:31)
[2017-08-20] MEDS: COLLAGENASE CLOSTRIDIUM HIST. 30 GRAMS TUBE TP SCH (10:32)
--- NOTE | 2017-08-20 11:35 | PN ---
Progress Note (short form) - Note Progress Note: Awake on AC Mode of vent, 40% FiO2. No acute events overnight. Apparently has been tolerating PO intake. Intake & Output 08/17/17 08/18/17 08/19/17 08/20/17 23:59 23:59 23:59 23:59 Intake Total 0077 085 3849 550 Output Total 2 Balance 0765 601 1498 548 Last Vital Signs Temp Pulse Resp BP Pulse Ox 98.4 F 101 H 14 115/58 100 08/20/17 09:24 08/20/17 09:24 08/20/17 10:00 08/20/17 09:24 08/20/17 10:00 Active Medications Acetaminophen (Tylenol -) 650 mg PO Q6H PRN PRN Reason: FEVER OR PAIN Last Admin: 08/17/17 18:08 Dose: 650 mg Acetaminophen (Tylenol Suppository -) 650 mg [place] Q6H PRN PRN Reason: FEVER OR PAIN Last Admin: 08/20/17 02:20 Dose: 650 mg Albuterol/Ipratropium (Duoneb -) 1 amp NEB Q6H PRN PRN Reason: SHORTNESS OF BREATH Apixaban (Eliquis -) 5 mg PO BID [facility] Last Admin: 08/20/17 10:31 Dose: 5 mg Cholestyramine Resin (Questran Light Packet -) 4 gm PO DAILY [facility] Last Admin: 08/20/17 10:25 Dose: Not Given Collagenase (Santyl -) 1 applic TP DAILY [facility] Last Admin: 08/20/17 10:32 Dose: 1 applic Diltiazem HCl (Cardizem Cd -) 120 mg PO DAILY [facility] Last Admin: 08/20/17 10:31 Dose: 120 mg Ferrous Sulfate (Feosol -) 325 mg PO DAILY [facility] Last Admin: 08/20/17 10:31 Dose: 325 mg Sodium Chloride (Normal Saline -) 1,000 mls @ 42 mls/hr IV ASDIR [facility] Last Admin: 08/19/17 20:55 Dose: 42 mls/hr Lactobacillus Acidophilus (Bacid -) 1 tab PO DAILY [facility] Last Admin: 08/20/17 10:31 Dose: 1 tab Levothyroxine Sodium (Synthroid -) 75 mcg PO DAILY@0700 [facility] Last Admin: 08/20/17 06:46 Dose: 75 mcg Lorazepam (Ativan Injection -) 0.5 mg IVPUSH TID PRN PRN Reason: ANXIETY Mirtazapine (Remeron -) 15 mg PO HS [facility] Last Admin: 08/19/17 21:46 Dose: 15 mg Nystatin (Nystop Powder -) 1 applic TP DAILY [facility] Last Admin: 08/20/17 10:30 Dose: 1 applic Oxycodone HCl (Roxicodone -) 5 mg PO Q6H PRN PRN Reason: PAIN Last Admin: 08/17/17 18:09 Dose: 5 mg Ranitidine HCl (Zantac -) 150 mg PO DAILY [facility] Last Admin: 08/20/17 10:31 Dose: 150 mg Thiamine HCl (Vitamin B1 -) 100 mg PO DAILY [facility] Last Admin: 08/20/17 10:31 Dose: 100 mg Valsartan (Diovan -) 80 mg PO DAILY [facility] Last Admin: 08/20/17 10:24 Dose: Not Given Constitutional: Yes: Awake and responsive, vented Eyes: Yes: WNL HENT: Yes: Nasal Congestion Neck: Yes: Supple (trach) Cardiovascular: Yes: Pulse Irregular, S1, S2 Respiratory: Yes: Scattered rhonchi, no wheeze Gastrointestinal: Yes: Normal Bowel Sounds, Soft Extremities: Yes: WNL Edema: No Laboratory Results - last 24 hr 08/19/17 08/19/17 16:20 16:20 WBC 13.1 H RBC 3.27 L Hgb 9.5 L Hct 28.6 L MCV 87.3 MCH 29.1 MCHC 33.3 RDW 16.3 H Plt Count 558 H MPV 8.1 Total Counted 100 Neutrophils % No Result Required. Neutrophils % (Manual) 68 Band Neuts % (Manual) 3 D Lymphocytes % No Result Required. Lymphocytes % (Manual) 13 Monocytes % (Manual) 6 Eosinophils % (Manual) 4 Myelocytes % (Man) 2 D Other Cell Type Platelet Estimate Slt increased Platelet Comment Few giant plts Sodium 127 L Potassium 4.9 Chloride 89 L Carbon Dioxide 33 H Anion Gap 5 L BUN 16 D Creatinine 0.5 L D Creat Clearance w eGFR > 60 Random Glucose 88 D Calcium 8.4 L Total Bilirubin 0.5 D AST 14 L ALT 13 Alkaline Phosphatase 100 Total Protein 5.5 L Albumin 2.1 L Problem List - Problems (1) Fever Code(s): R50.9 - FEVER, UNSPECIFIED Qualifiers: Fever type: unspecified Qualified Code(s): R50.9 - Fever, unspecified; R50.9 - Fever, unspecified (2) Hematuria Code(s): R31.9 - HEMATURIA, UNSPECIFIED Qualifiers: Hematuria type: unspecified type Qualified Code(s): R31.9 - Hematuria, unspecified; R31.9 - Hematuria, unspecified (3) Sacral decubitus ulcer, stage II Code(s): L89.152 - PRESSURE ULCER OF SACRAL REGION, STAGE 2 (4) A-fib Code(s): I48.91 - UNSPECIFIED ATRIAL FIBRILLATION Qualifiers: (5) Acute on chronic respiratory failure with hypoxia and hypercapnia Code(s): J96.21 - ACUTE AND CHRONIC RESPIRATORY FAILURE WITH HYPOXIA J96.22 - ACUTE AND CHRONIC RESPIRATORY FAILURE WITH HYPERCAPNIA (6) Anemia Code(s): D64.9 - ANEMIA, UNSPECIFIED Qualifiers: Anemia type: unspecified type Qualified Code(s): D64.9 - Anemia, unspecified; D64.9 - Anemia, unspecified (7) COPD (chronic obstructive pulmonary disease) Code(s): J44.9 - CHRONIC OBSTRUCTIVE PULMONARY DISEASE, UNSPECIFIED Qualifiers : COPD type: unspecified COPD Qualified Code(s): J44.9 - Chronic obstructive pulmonary disease, unspecified; J44.9 - Chronic obstructive pulmonary disease, unspecified; J44.9 - Chronic obstructive pulmonary disease, unspecified; J44.9 - Chronic obstructive pulmonary disease, unspecified (8) Chest pain Code(s): R07.9 - CHEST PAIN, UNSPECIFIED Qualifiers: Chest pain type: pleurodynia Qualified Code(s): R07.81 - Pleurodynia ; R07.81 - Pleurodynia (9) Diastolic heart failure Code(s): I50.30 - UNSPECIFIED DIASTOLIC (CONGESTIVE) HEART FAILURE Qualifiers : Heart failure chronicity: chronic Qualified Code(s): I50.32 - Chronic diastolic (congestive) heart failure; I50.32 - Chronic diastolic ( congestive) heart failure; I50.32 - Chronic diastolic (congestive) heart failure ; I50.32 - Chronic diastolic (congestive) heart failure (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
[2017-08-20 12:56] LABS: MCH 28.5 pg (25.7-33.7); MCHC 32.5 g/dl (32.0-36.0); MEAN CELL VOLUME 87.6 fl (80-96); MEAN PLT VOLUME 8.1 fl (7.5-11.1); PLATELET COUNT 508 K/MM3 (134-434); RDW 16.3 % (11.6-15.6); WHITE BLOOD COUNT 11.7 K/mm3 (4.0-10.0)
[2017-08-20 13:26] LABS: ANION GAP 8 (8-16); BILIRUBIN,TOTAL 0.4 mg/dL (0.2-1.0); CALCIUM 8.2 mg/dL (8.5-10.1); CO2 31 mmol/L (21-32); CREATININE 0.4 mg/dL (0.55-1.02); GLUCOSE,RANDOM 100 mg/dL (74-106); SGOT/AST 10 U/L (15-37); SGPT/ALT 11 U/L (12-78); TOT PROT 5.3 g/dl (6.4-8.2)
[2017-08-20 13:27] LABS: ALK PHOS 100 U/L (45-117)
--- NOTE | 2017-08-20 13:36 | PN ---
Progress Note, Physician Chief Complaint: UTI and fever History of Present Illness: Patient lying in bed, no SOB, denies CP, aferile, on AC mode mech vent, tolerating well, not in distress. - Current Medication List Current Medications: Active Medications Acetaminophen (Tylenol -) 650 mg PO Q6H PRN PRN Reason: FEVER OR PAIN Last Admin: 08/17/17 18:08 Dose: 650 mg Acetaminophen (Tylenol Suppository -) 650 mg [place] Q6H PRN PRN Reason: FEVER OR PAIN Last Admin: 08/20/17 02:20 Dose: 650 mg Albuterol/Ipratropium (Duoneb -) 1 amp NEB Q6H PRN PRN Reason: SHORTNESS OF BREATH Apixaban (Eliquis -) 5 mg PO BID [facility] Last Admin: 08/20/17 10:31 Dose: 5 mg Cholestyramine Resin (Questran Light Packet -) 4 gm PO DAILY [facility] Last Admin: 08/20/17 10:25 Dose: Not Given Collagenase (Santyl -) 1 applic TP DAILY [facility] Last Admin: 08/20/17 10:32 Dose: 1 applic Diltiazem HCl (Cardizem Cd -) 120 mg PO DAILY [facility] Last Admin: 08/20/17 10:31 Dose: 120 mg Ferrous Sulfate (Feosol -) 325 mg PO DAILY [facility] Last Admin: 08/20/17 10:31 Dose: 325 mg Sodium Chloride (Normal Saline -) 1,000 mls @ 42 mls/hr IV ASDIR [facility] Last Admin: 08/19/17 20:55 Dose: 42 mls/hr Lactobacillus Acidophilus (Bacid -) 1 tab PO DAILY [facility] Last Admin: 08/20/17 10:31 Dose: 1 tab Levothyroxine Sodium (Synthroid -) 75 mcg PO DAILY@0700 [facility] Last Admin: 08/20/17 06:46 Dose: 75 mcg Lorazepam (Ativan Injection -) 0.5 mg IVPUSH TID PRN PRN Reason: ANXIETY Mirtazapine (Remeron -) 15 mg PO HS [facility] Last Admin: 08/19/17 21:46 Dose: 15 mg Nystatin (Nystop Powder -) 1 applic TP DAILY [facility] Last Admin: 08/20/17 10:30 Dose: 1 applic Oxycodone HCl (Roxicodone -) 5 mg PO Q6H PRN PRN Reason: PAIN Last Admin: 08/17/17 18:09 Dose: 5 mg Ranitidine HCl (Zantac -) 150 mg PO DAILY [facility] Last Admin: 08/20/17 10:31 Dose: 150 mg Thiamine HCl (Vitamin B1 -) 100 mg PO DAILY [facility] Last Admin: 08/20/17 10:31 Dose: 100 mg Valsartan (Diovan -) 80 mg PO DAILY [facility] Last Admin: 08/20/17 10:24 Dose: Not Given - Objective Vital Signs: Vital Signs Temperature 98.4 F 08/20/17 09:24 Pulse Rate 101 H 08/20/17 09:24 Respiratory Rate 15 08/20/17 10:30 Blood Pressure 115/58 08/20/17 09:24 O2 Sat by Pulse Oximetry (%) 100 08/20/17 10:00 Constitutional: Yes: No Distress, Calm Eyes: Yes: Conjunctiva Clear HENT: Yes: Normocephalic Neck: Yes: Other (Trach tube and collar) Cardiovascular: Yes: Regular Rate and Rhythm, S1, S2 Respiratory: Yes: Regular, CTA Bilaterally, Diminished Gastrointestinal: Yes: Normal Bowel Sounds, Soft Edema: No Neurological: Yes: Alert, Oriented Labs: CBC, BMP 08/20/17 12:40 08/20/17 12:40 INR, PTT INR 2.24 (0.82-1.09) H D 08/12/17 18:00 Problem List - Problems (1) Hematuria Code(s): R31.9 - HEMATURIA, UNSPECIFIED Qualifiers: Hematuria type: unspecified type Qualified Code(s): R31.9 - Hematuria, unspecified; R31.9 - Hematuria, unspecified (2) Sacral decubitus ulcer, stage II Code(s): L89.152 - PRESSURE ULCER OF SACRAL REGION, STAGE 2 (3) Systemic inflammatory response syndrome (SIRS) Code(s): R65.10 - SIRS OF NON-INFECTIOUS ORIGIN W/O ACUTE ORGAN DYSFUNCTION (4) A-fib Code(s): I48.91 - UNSPECIFIED ATRIAL FIBRILLATION Qualifiers: Atrial fibrillation type: paroxysmal Qualified Code(s): I48.0 - Paroxysmal atrial fibrillation; I48.0 - Paroxysmal atrial fibrillation; I48.0 - Paroxysmal atrial fibrillation; I48.0 - Paroxysmal atrial fibrillation (5) Acute and chronic respiratory failure with hypoxia Code(s): J96.21 - ACUTE AND CHRONIC RESPIRATORY FAILURE WITH HYPOXIA Assessment/Plan (1) Fever Assessment/Plan: -afebrile overnight -ID on board -BC negative -UC, SC and WC : Microbiology 08/12/17 18:10 Blood Culture - Final Blood - Peripheral Venous NO GROWTH AFTER 5 DAYS INCUBATION 08/12/17 18:00 Blood Culture - Final Blood - Peripheral Venous NO GROWTH AFTER 5 DAYS INCUBATION 08/15/17 17:45 Gram Stain - Final Sputum - Endotrachea Suction/Ventilator Sputum Culture - Preliminary Staphylococcus Latex Coag Pos 08/15/17 17:45 Gram Stain - Final Decubiti Wound Culture - Preliminary Presumptive Mrsa (Pbp2a Pos) Pending Organism 08/15/17 17:45 Urine Culture - Final Urine - Urine - Catheterized Yeast Like Organism -D/C IV antibiotic and observe -Re-culture off antibiotics for recurrent fever Code(s): R50.9 - FEVER, UNSPECIFIED Qualifiers: Fever type: unspecified Qualified Code(s): R50.9 - Fever, unspecified; R50.9 - Fever, unspecified (2) Hematuria Assessment/Plan: -+3 urine in UA -Urology consult pending Code(s): R31.9 - HEMATURIA, UNSPECIFIED Qualifiers: Hematuria type: unspecified type Qualified Code(s): R31.9 - Hematuria, unspecified; R31.9 - Hematuria, unspecified (3) Sacral decubitus ulcer, stage II Assessment/Plan: -seen by Vascular -offloading to the area -santyl -wound culture shows MRSA and VRE Code(s): L89.152 - PRESSURE ULCER OF SACRAL REGION, STAGE 2 (4) Systemic inflammatory response syndrome (SIRS) Assessment/Plan: -ID on board -Off antibiotic -Tylenol for fever over 100.0F Code(s): R65.10 - SIRS OF NON-INFECTIOUS ORIGIN W/O ACUTE ORGAN DYSFUNCTION (5) A-fib Assessment/Plan: -Chronic -controlled -on Eliquis Code(s): I48.91 - UNSPECIFIED ATRIAL FIBRILLATION Qualifiers: Atrial fibrillation type: paroxysmal Qualified Code(s): I48.0 - Paroxysmal atrial fibrillation; I48.0 - Paroxysmal atrial fibrillation; I48.0 - Paroxysmal atrial fibrillation; I48.0 - Paroxysmal atrial fibrillation (6) Acute and chronic respiratory failure with hypoxia Assessment/Plan: -on AC mode [facility] vent -wean trials as tolerated Code(s): J96.21 - ACUTE AND CHRONIC RESPIRATORY FAILURE WITH HYPOXIA -Nursing instructions during medication administration: -Place pt on 100% O2 on vent, suction, deflate cuff, administer meds, inflate cuff and place pt back on original FiO2 -If not tolerated, for possible peg placement.
--- NOTE | 2017-08-20 14:09 | PN ---
Progress Note, Physician Chief Complaint: Events noted On vent support via trache History of Present Illness: Patient was seen and examined. Awake. Chart was reviewed Denies chest pain or palpitations Tolerating therapy - Current Medication List Current Medications: Active Medications Acetaminophen (Tylenol -) 650 mg PO Q6H PRN PRN Reason: FEVER OR PAIN Last Admin: 08/17/17 18:08 Dose: 650 mg Acetaminophen (Tylenol Suppository -) 650 mg [place] Q6H PRN PRN Reason: FEVER OR PAIN Last Admin: 08/20/17 02:20 Dose: 650 mg Albuterol/Ipratropium (Duoneb -) 1 amp NEB Q6H PRN PRN Reason: SHORTNESS OF BREATH Apixaban (Eliquis -) 5 mg PO BID [facility] Last Admin: 08/20/17 10:31 Dose: 5 mg Cholestyramine Resin (Questran Light Packet -) 4 gm PO DAILY [facility] Last Admin: 08/20/17 10:25 Dose: Not Given Collagenase (Santyl -) 1 applic TP DAILY [facility] Last Admin: 08/20/17 10:32 Dose: 1 applic Diltiazem HCl (Cardizem Cd -) 120 mg PO DAILY [facility] Last Admin: 08/20/17 10:31 Dose: 120 mg Ferrous Sulfate (Feosol -) 325 mg PO DAILY [facility] Last Admin: 08/20/17 10:31 Dose: 325 mg Sodium Chloride (Normal Saline -) 1,000 mls @ 42 mls/hr IV ASDIR [facility] Last Admin: 08/19/17 20:55 Dose: 42 mls/hr Lactobacillus Acidophilus (Bacid -) 1 tab PO DAILY [facility] Last Admin: 08/20/17 10:31 Dose: 1 tab Levothyroxine Sodium (Synthroid -) 75 mcg PO DAILY@0700 [facility] Last Admin: 08/20/17 06:46 Dose: 75 mcg Lorazepam (Ativan Injection -) 0.5 mg IVPUSH TID PRN PRN Reason: ANXIETY Mirtazapine (Remeron -) 15 mg PO HS [facility] Last Admin: 08/19/17 21:46 Dose: 15 mg Nystatin (Nystop Powder -) 1 applic TP DAILY [facility] Last Admin: 08/20/17 10:30 Dose: 1 applic Oxycodone HCl (Roxicodone -) 5 mg PO Q6H PRN PRN Reason: PAIN Last Admin: 08/17/17 18:09 Dose: 5 mg Ranitidine HCl (Zantac -) 150 mg PO DAILY [facility] Last Admin: 08/20/17 10:31 Dose: 150 mg Thiamine HCl (Vitamin B1 -) 100 mg PO DAILY [facility] Last Admin: 08/20/17 10:31 Dose: 100 mg Valsartan (Diovan -) 80 mg PO DAILY [facility] Last Admin: 08/20/17 10:24 Dose: Not Given - Objective Vital Signs: Vital Signs Temperature 98.4 F 08/20/17 09:24 Pulse Rate 101 H 08/20/17 09:24 Respiratory Rate 15 08/20/17 10:30 Blood Pressure 115/58 08/20/17 09:24 O2 Sat by Pulse Oximetry (%) 100 08/20/17 10:00 Cardiovascular: Yes: Regular Rate and Rhythm, S1, S2 Respiratory: Yes: Diminished, Mechanically Ventilated Gastrointestinal: Yes: Normal Bowel Sounds, Soft. No: Tenderness Edema: No Labs: CBC, BMP 08/20/17 12:40 08/20/17 12:40 Problem List - Problems (1) A-fib Code(s): I48.91 - UNSPECIFIED ATRIAL FIBRILLATION Qualifiers: Atrial fibrillation type: paroxysmal Qualified Code(s): I48.0 - Paroxysmal atrial fibrillation; I48.0 - Paroxysmal atrial fibrillation; I48.0 - Paroxysmal atrial fibrillation; I48.0 - Paroxysmal atrial fibrillation (2) Acute and chronic respiratory failure with hypoxia Code(s): J96.21 - ACUTE AND CHRONIC RESPIRATORY FAILURE WITH HYPOXIA (3) Acute on chronic respiratory failure with hypoxia and hypercapnia Code(s): J96.21 - ACUTE AND CHRONIC RESPIRATORY FAILURE WITH HYPOXIA J96.22 - ACUTE AND CHRONIC RESPIRATORY FAILURE WITH HYPERCAPNIA (4) Anemia Code(s): D64.9 - ANEMIA, UNSPECIFIED Qualifiers: Anemia type: unspecified type Qualified Code(s): D64.9 - Anemia, unspecified; D64.9 - Anemia, unspecified (5) COPD (chronic obstructive pulmonary disease) Code(s): J44.9 - CHRONIC OBSTRUCTIVE PULMONARY DISEASE, UNSPECIFIED Qualifiers : COPD type: unspecified COPD Qualified Code(s): J44.9 - Chronic obstructive pulmonary disease, unspecified; J44.9 - Chronic obstructive pulmonary disease, unspecified; J44.9 - Chronic obstructive pulmonary disease, unspecified; J44.9 - Chronic obstructive pulmonary disease, unspecified (6) Diastolic heart failure Code(s): I50.30 - UNSPECIFIED DIASTOLIC (CONGESTIVE) HEART FAILURE Qualifiers : Heart failure chronicity: chronic Qualified Code(s): I50.32 - Chronic diastolic (congestive) heart failure; I50.32 - Chronic diastolic ( congestive) heart failure; I50.32 - Chronic diastolic (congestive) heart failure ; I50.32 - Chronic diastolic (congestive) heart failure (7) Hypothyroid Code(s): E03.9 - HYPOTHYROIDISM, UNSPECIFIED Qualifiers: Hypothyroidism type: unspecified Qualified Code(s): E03.9 - Hypothyroidism, unspecified; E03.9 - Hypothyroidism, unspecified; E03.9 - Hypothyroidism, unspecified (8) Pneumonia Code(s): J18.9 - PNEUMONIA, UNSPECIFIED ORGANISM Qualifiers: Pneumonia type: due to unspecified organism Laterality: left Lung location: lower lobe of lung Qualified Code(s): J18.9 - Pneumonia, unspecified organism; J18.9 - Pneumonia, unspecified organism (9) Tracheostomy dependence Code(s): Z93.0 - TRACHEOSTOMY STATUS Assessment/Plan 1. Fever, hematuria suspect UTI, rule out pneumonia with history of multi-drug resistant organisms 2. COPD with acute on chronic hypoxic/hypercapneic respiratory failure post tracheostomy 3. Diastolic LV dysfunction with class I NYHA classification LV congestive heart failure, compensated/euvolemic 4. Paroxysmal Atrial Fibrillation/atrial tachycardia on NOAC, [id number] score of 4 5. HTN 6. Hypothyroidism 7. History of C. Difficile Colitis 8. MARLYN and Hyperkalemia 9. Anemia post transfusion PLAN: 1. Complete antibiotic course and contact isolation 2. Inhaled bronchodilators, O2 to keep SpO2 >90% and GI prophylaxis 3. Continue Cardizem and Valsartan as tolerated 4. Continue Eliquis 5 bid for DVT and stroke thrombophylaxis due to NPO status 5. Transfuse to maintain Hgb>8.0, may proceed with PEG placement from cardiovascular stand point, Bert Ivan MD
--- NOTE | 2017-08-20 18:18 | CON.GI ---
Consult Consult Specialty:: GI Referred by:: Dr Lopez Reason for Consultation:: Possible PEG placement - History of Present Illness History of Present Illness: 67 F with h/o severe COPD-vent dependent, anemia, AF, S/P rapid response this admission for desaturation, admitted with hematuria and fever and found to have UTI. I am called for PEG tube assessment. 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[employer]: Yes: CVA, Other (poor short term memory) Cardio/Vascular: Yes: AFIB, HTN Pulmonary: Yes: COPD, Previously Intubated, Other (RESPIRATORY FAILURE) Infectious Disease: Yes: C-Diff Endocrine: Yes: Hypothyroidism - Past Surgical History Past Surgical History: Yes: Appendectomy - Alcohol/Substance Use Hx Alcohol Use: No History of Substance Use: reports: None - Smoking History Smoking history: Unknown if ever smoked Have you smoked in the past 12 months: No If you are a former smoker, when did you quit?: 2008 - Social History Usual Living Arrangement: [facility] ADL: Family Assistance History of Recent Travel: No Home Medications - Allergies Allergies/Adverse Reactions: Allergies Allergy/AdvReac Type Severity Reaction Status Date / Time peas Allergy Severe Difficulty Verified 07/19/17 12:10 Breathing Iodinated Contrast- Oral and Allergy Verified 07/19/17 12:10 IV Dye [Iodinated Contrast Media - IV Dye] iodine Allergy Verified 07/19/17 12:10 - Home Medications Home Medications: Ambulatory Orders Albuterol 2.5/Ipratropium 0.5 [Duoneb -] 1 neb NEB TID 02/01/16 Aspirin [Ecotrin] 81 mg PO DAILY 02/01/16 Folic Acid 1 mg PO DAILY 02/01/16 Levothyroxine [Synthroid -] 75 mcg PO DAILY 02/01/16 Lorazepam 0.5 mg PO HS 02/01/16 Mirtazapine 15 mg PO HS 02/01/16 Thiamine HCl [Vitamin B1 -] 100 mg PO DAILY 02/01/16 Vitamin B Complex Vit C No.3 [B Complex with Vitamin C] 1 each PO DAILY Ranitidine [Zantac -] 150 mg PO DAILY tablet 02/09/16 Cholestyramine/Aspartame [Questran Light Packet -] 4 gm PO BID packet 06/14/17 Acetaminophen [Tylenol .Regular Strength -] 650 mg PO Q4H PRN #0 tablet Albuterol 0.083% Nebulizer Carina [Ventolin 0.083% Nebulizer Soln -] 1 amp NEB Q4H PRN #180 amp 06/23/17 Apixaban [Eliquis -] 5 mg PO BID tablet 06/23/17 Budesonide [Pulmicort 0.25 mg Nebulizer -] 1 amp NEB BID amp 06/23/17 Melatonin 5 mg PO HS tab 06/23/17 Oxycodone HCl [Roxicodone -] 5 mg PO Q4H PRN #0 tablet MDD 6 06/23/17 Valsartan [Diovan] 320 mg PO DAILY tablet 07/27/17 Aa/Hydrolyzed Collagen, Whey [Lps Neutral Flavor Liquid] 30 ml PO BID 08/12/17 Calcium Carbonate/Vitamin D3 [Oyster Shell 500-Vit D3 200 Tb] 1 each PO DAILY Diltiazem HCl [Cardizem LA] 120 mg PO DAILY 08/12/17 Fluconazole [Diflucan -] 100 mg PO DAILY 08/12/17 Iron 325 mg PO BID 08/12/17 Lactobacillus Acidophilus [Bacid -] 1 tab PO BID 08/12/17 Levofloxacin [Levaquin] 500 mg PO DAILY 08/12/17 Pantoprazole Sodium 40 mg PO DAILY 08/12/17 Polyvinyl Alcohol [Artificial Tears] 1 drop OD DAILY 08/12/17 Physical Exam-GI Vital Signs: Vital Signs Temperature 99.6 F 08/20/17 15:38 Pulse Rate 97 H 08/20/17 15:38 Respiratory Rate 12 08/20/17 17:20 Blood Pressure 106/44 08/20/17 15:38 O2 Sat by Pulse Oximetry (%) 100 08/20/17 10:00 Constitutional: Yes: Thin Eyes: Yes: Other (exophthalmos-L eye) HENT: Yes: Normocephalic Cardiovascular: Yes: Regular Rate and Rhythm Respiratory: Yes: Diminished Gastrointestinal Inspection: Yes: WNL ...Auscultate: Yes: Normoactive Bowel Sounds ...Palpate: Yes: Soft. No: Tenderness Neurological: Yes: Alert, Oriented Labs: CBC, BMP 08/20/17 12:40 08/20/17 12:40 INR, PTT INR 2.24 (0.82-1.09) H D 08/12/17 18:00 Assessment/Plan Discussed possible PEG placement with patient and she states she is undecided. She will d/w family and make a decision. Please notify me should she decide on PEG She has diagnosis of gastroparesis on chart. If she has that problem, she would do better with J-tube
[2017-08-20] MEDS: SODIUM CHLORIDE 1,000 ML IV SCH (21:12)
[2017-08-20] MEDS: MIRTAZAPINE 15 MG TABLET (FP) PO SCH (21:13)
[2017-08-20] MEDS: LORazepam 2 MG/ML SDV VIAL IVPUSH PRN (21:13)
[2017-08-20] MEDS: ACETAMINOPHEN 325 MG TABLET (FP) PO PRN (21:21)
[2017-08-21] MEDS: LEVOTHYROXINE NA 75 MCG TABLET (FP) PO SCH (06:27)
[2017-08-21 09:01] LABS: MCH 28.6 pg (25.7-33.7); MCHC 32.6 g/dl (32.0-36.0); MEAN CELL VOLUME 87.9 fl (80-96); MEAN PLT VOLUME 8.6 fl (7.5-11.1); PLATELET COUNT 475 K/MM3 (134-434); WHITE BLOOD COUNT 12.9 K/mm3 (4.0-10.0)
[2017-08-21 09:33] LABS: ALK PHOS 98 U/L (45-117); ANION GAP 11 (8-16); BILIRUBIN,TOTAL 0.5 mg/dL (0.2-1.0); CALCIUM 8.2 mg/dL (8.5-10.1); CO2 27 mmol/L (21-32); CREATININE 0.3 mg/dL (0.55-1.02); MAGNESIUM 1.5 mg/dL (1.8-2.4); SGOT/AST 9 U/L (15-37); SGPT/ALT 11 U/L (12-78); TOT PROT 5.2 g/dl (6.4-8.2)
[2017-08-21 09:39] LABS: GLUCOSE,RANDOM 50 mg/dL (74-106)
[2017-08-21] MEDS ORDERED: PT OWN MED DRAWER 7, Y5N ONE ×2 (09:54→11:53)
[2017-08-21] MEDS: ACETAMINOPHEN 325 MG TABLET (FP) PO PRN ×2 (10:03→17:37)
[2017-08-21] MEDS: FERROUS SO4 325 MG TABLET (FP) PO SCH (10:03)
[2017-08-21] MEDS: THIAMINE HCL 100 MG TABLET (FP) PO SCH (10:03)
[2017-08-21] MEDS: RANITIDINE HCL 150 MG TABLET (FP) PO SCH (10:03)
[2017-08-21] MEDS: LACTOBACILLUS ACIDOPHILUS 1 EACH TAB (FP) PO SCH (10:03)
[2017-08-21] MEDS: COLLAGENASE CLOSTRIDIUM HIST. 30 GRAMS TUBE TP SCH (10:04)
[2017-08-21] MEDS: CHOLESTYRAMINE/ASPARTAME 4 GM PACKET PO SCH (10:04)
[2017-08-21] MEDS: APIXABAN 5 MG TABLET PO SCH ×2 (10:04→22:09)
[2017-08-21] MEDS: VALSARTAN 80 MG TABLET (UD) PO SCH (10:04)
[2017-08-21] MEDS: NYSTATIN POWDER 100,000 UNITS/GM - 15 GM TOPICAL POWDER TP SCH (10:04)
[2017-08-21 10:08] LABS: METAMYELOCYTE 1 % (0-2); PLATELET ESTIMATE INCREASED (NORMAL); TOTAL CELLS COUNTED 100
--- NOTE | 2017-08-21 10:16 | PN ---
Progress Note, Physician Chief Complaint: Events noted On vent support via trache History of Present Illness: Patient was seen and examined. Awake. Chart was reviewed Denies chest pain or palpitations Febrile - Current Medication List Current Medications: Active Medications Acetaminophen (Tylenol -) 650 mg PO Q6H PRN PRN Reason: FEVER OR PAIN Last Admin: 08/21/17 10:03 Dose: 650 mg Acetaminophen (Tylenol Suppository -) 650 mg OR Q6H PRN PRN Reason: FEVER OR PAIN Last Admin: 08/20/17 02:20 Dose: 650 mg Albuterol/Ipratropium (Duoneb -) 1 amp NEB Q6H PRN PRN Reason: SHORTNESS OF BREATH Apixaban (Eliquis -) 5 mg PO BID [facility] Last Admin: 08/21/17 10:04 Dose: 5 mg Cholestyramine Resin (Questran Light Packet -) 4 gm PO DAILY [facility] Last Admin: 08/21/17 10:04 Dose: Not Given Collagenase (Santyl -) 1 applic TP DAILY [facility] Last Admin: 08/21/17 10:04 Dose: 1 applic Diltiazem HCl (Cardizem Cd -) 120 mg PO DAILY [facility] Last Admin: 08/21/17 10:03 Dose: 120 mg Ferrous Sulfate (Feosol -) 325 mg PO DAILY [facility] Last Admin: 08/21/17 10:03 Dose: 325 mg Sodium Chloride (Normal Saline -) 1,000 mls @ 42 mls/hr IV ASDIR [facility] Last Admin: 08/20/17 21:12 Dose: 42 mls/hr Lactobacillus Acidophilus (Bacid -) 1 tab PO DAILY [facility] Last Admin: 08/21/17 10:03 Dose: 1 tab Levothyroxine Sodium (Synthroid -) 75 mcg PO DAILY@0700 [facility] Last Admin: 08/21/17 06:27 Dose: 75 mcg Lorazepam (Ativan Injection -) 0.5 mg IVPUSH TID PRN PRN Reason: ANXIETY Last Admin: 08/20/17 21:13 Dose: 0.5 mg Mirtazapine (Remeron -) 15 mg PO HS [facility] Last Admin: 08/20/17 21:13 Dose: 15 mg Nystatin (Nystop Powder -) 1 applic TP DAILY [facility] Last Admin: 08/21/17 10:04 Dose: 1 applic Oxycodone HCl (Roxicodone -) 5 mg PO Q6H PRN PRN Reason: PAIN Last Admin: 08/17/17 18:09 Dose: 5 mg Ranitidine HCl (Zantac -) 150 mg PO DAILY [facility] Last Admin: 08/21/17 10:03 Dose: 150 mg Thiamine HCl (Vitamin B1 -) 100 mg PO DAILY [facility] Last Admin: 08/21/17 10:03 Dose: 100 mg Valsartan (Diovan -) 80 mg PO DAILY [facility] Last Admin: 08/21/17 10:04 Dose: Not Given - Objective Vital Signs: Vital Signs Temperature 101.4 F H 08/21/17 10:05 Pulse Rate 111 H 08/21/17 10:05 Respiratory Rate 14 08/21/17 10:05 Blood Pressure 129/55 08/21/17 10:05 O2 Sat by Pulse Oximetry (%) 99 08/20/17 22:00 Neck: Yes: Supple Cardiovascular: Yes: Regular Rate and Rhythm, Tachycardia, S1, S2 Respiratory: Yes: Diminished, Mechanically Ventilated Gastrointestinal: Yes: Normal Bowel Sounds, Soft. No: Tenderness Edema: No Labs: CBC, BMP 08/21/17 08:00 08/21/17 08:00 Problem List - Problems (1) A-fib Code(s): I48.91 - UNSPECIFIED ATRIAL FIBRILLATION Qualifiers: Atrial fibrillation type: paroxysmal Qualified Code(s): I48.0 - Paroxysmal atrial fibrillation; I48.0 - Paroxysmal atrial fibrillation; I48.0 - Paroxysmal atrial fibrillation; I48.0 - Paroxysmal atrial fibrillation (2) Acute and chronic respiratory failure with hypoxia Code(s): J96.21 - ACUTE AND CHRONIC RESPIRATORY FAILURE WITH HYPOXIA (3) Acute on chronic respiratory failure with hypoxia and hypercapnia Code(s): J96.21 - ACUTE AND CHRONIC RESPIRATORY FAILURE WITH HYPOXIA J96.22 - ACUTE AND CHRONIC RESPIRATORY FAILURE WITH HYPERCAPNIA (4) Anemia Code(s): D64.9 - ANEMIA, UNSPECIFIED Qualifiers: Anemia type: unspecified type Qualified Code(s): D64.9 - Anemia, unspecified; D64.9 - Anemia, unspecified (5) COPD (chronic obstructive pulmonary disease) Code(s): J44.9 - CHRONIC OBSTRUCTIVE PULMONARY DISEASE, UNSPECIFIED Qualifiers : COPD type: unspecified COPD Qualified Code(s): J44.9 - Chronic obstructive pulmonary disease, unspecified; J44.9 - Chronic obstructive pulmonary disease, unspecified; J44.9 - Chronic obstructive pulmonary disease, unspecified; J44.9 - Chronic obstructive pulmonary disease, unspecified (6) Diastolic heart failure Code(s): I50.30 - UNSPECIFIED DIASTOLIC (CONGESTIVE) HEART FAILURE Qualifiers : Heart failure chronicity: chronic Qualified Code(s): I50.32 - Chronic diastolic (congestive) heart failure; I50.32 - Chronic diastolic ( congestive) heart failure; I50.32 - Chronic diastolic (congestive) heart failure ; I50.32 - Chronic diastolic (congestive) heart failure (7) Hypothyroid Code(s): E03.9 - HYPOTHYROIDISM, UNSPECIFIED Qualifiers: Hypothyroidism type: unspecified Qualified Code(s): E03.9 - Hypothyroidism, unspecified; E03.9 - Hypothyroidism, unspecified; E03.9 - Hypothyroidism, unspecified (8) Pneumonia Code(s): J18.9 - PNEUMONIA, UNSPECIFIED ORGANISM Qualifiers: Pneumonia type: due to unspecified organism Laterality: left Lung location: lower lobe of lung Qualified Code(s): J18.9 - Pneumonia, unspecified organism; J18.9 - Pneumonia, unspecified organism (9) Tracheostomy dependence Code(s): Z93.0 - TRACHEOSTOMY STATUS Assessment/Plan 1. Fever, hematuria suspect UTI, rule out pneumonia with history of multi-drug resistant organisms 2. COPD with acute on chronic hypoxic/hypercapneic respiratory failure post tracheostomy 3. Diastolic LV dysfunction with class I NYHA classification LV congestive heart failure, compensated/euvolemic 4. Paroxysmal Atrial Fibrillation/atrial tachycardia on NOAC, [id number] score of 4 5. HTN 6. Hypothyroidism 7. History of C. Difficile Colitis 8. MARLYN and Hyperkalemia 9. Anemia post transfusion PLAN: 1. Inhaled bronchodilators, O2 to keep SpO2 >90% and GI prophylaxis and continue vent support 2. Continue Cardizem and Valsartan as tolerated 3. Continue Eliquis 5 bid 4. Transfuse to maintain Hgb>8.0, may proceed with PEG placement from cardiovascular stand point - currently undecided according to GI input Further plans are to follow Bert Ivan MD
--- NOTE | 2017-08-21 11:24 | PN ---
Progress Note (short form) - Note Progress Note: Awake on AC Mode of vent, 40% FiO2. No acute events overnight. Apparently refused to eat breakfast this AM. Intake & Output 08/18/17 08/19/17 08/20/17 08/21/17 23:59 23:59 23:59 23:59 Intake Total 850 1860 1370 570 Output Total 4 Balance 850 1860 1366 570 Last Vital Signs Temp Pulse Resp BP Pulse Ox 101.4 F H 111 H 16 129/55 99 08/21/17 10:05 08/21/17 10:05 08/21/17 10:25 08/21/17 10:05 08/21/17 10:00 Active Medications Acetaminophen (Tylenol -) 650 mg PO Q6H PRN PRN Reason: FEVER OR PAIN Last Admin: 08/21/17 10:03 Dose: 650 mg Acetaminophen (Tylenol Suppository -) [address] Q6H PRN PRN Reason: FEVER OR PAIN Last Admin: 08/20/17 02:20 Dose: 650 mg Albuterol/Ipratropium (Duoneb -) 1 amp NEB Q6H PRN PRN Reason: SHORTNESS OF BREATH Apixaban (Eliquis -) 5 mg PO BID [facility] Last Admin: 08/21/17 10:04 Dose: 5 mg Cholestyramine Resin (Questran Light Packet -) 4 gm PO DAILY [facility] Last Admin: 08/21/17 10:04 Dose: Not Given Collagenase (Santyl -) 1 applic TP DAILY [facility] Last Admin: 08/21/17 10:04 Dose: 1 applic Diltiazem HCl (Cardizem Cd -) 120 mg PO DAILY [facility] Last Admin: 08/21/17 10:03 Dose: 120 mg Ferrous Sulfate (Feosol -) 325 mg PO DAILY [facility] Last Admin: 08/21/17 10:03 Dose: 325 mg Sodium Chloride (Normal Saline -) 1,000 mls @ 42 mls/hr IV ASDIR [facility] Last Admin: 08/20/17 21:12 Dose: 42 mls/hr Lactobacillus Acidophilus (Bacid -) 1 tab PO DAILY [facility] Last Admin: 08/21/17 10:03 Dose: 1 tab Levothyroxine Sodium (Synthroid -) 75 mcg PO DAILY@0700 [facility] Last Admin: 08/21/17 06:27 Dose: 75 mcg Lorazepam (Ativan Injection -) 0.5 mg IVPUSH TID PRN PRN Reason: ANXIETY Last Admin: 08/20/17 21:13 Dose: 0.5 mg Mirtazapine (Remeron -) 15 mg PO HS [facility] Last Admin: 08/20/17 21:13 Dose: 15 mg Nystatin (Nystop Powder -) 1 applic TP DAILY [facility] Last Admin: 08/21/17 10:04 Dose: 1 applic Oxycodone HCl (Roxicodone -) 5 mg PO Q6H PRN PRN Reason: PAIN Last Admin: 08/17/17 18:09 Dose: 5 mg Ranitidine HCl (Zantac -) 150 mg PO DAILY [facility] Last Admin: 08/21/17 10:03 Dose: 150 mg Thiamine HCl (Vitamin B1 -) 100 mg PO DAILY [facility] Last Admin: 08/21/17 10:03 Dose: 100 mg Valsartan (Diovan -) 80 mg PO DAILY [facility] Last Admin: 08/21/17 10:04 Dose: Not Given Constitutional: Yes: Awake and responsive, vented Eyes: Yes: WNL HENT: Yes: Nasal Congestion Neck: Yes: Supple (trach) Cardiovascular: Yes: Pulse Irregular, S1, S2 Respiratory: Yes: Scattered rhonchi, no wheeze Gastrointestinal: Yes: Normal Bowel Sounds, Soft Extremities: Yes: WNL Edema: No Laboratory Results - last 24 hr 08/20/17 08/20/17 08/21/17 12:40 12:40 08:00 WBC 11.7 H 12.9 H RBC 3.26 L 3.19 L Hgb 9.3 L 9.1 L Hct 28.6 L 28.1 L MCV 87.6 87.9 MCH 28.5 28.6 MCHC 32.5 32.6 RDW 16.3 H 16.0 H Plt Count 508 H 475 H MPV 8.1 8.6 Total Counted 100 Neutrophils % No Result Required. No Result Required. Neutrophils % (Manual) 70 Band Neuts % (Manual) 6 D Lymphocytes % No Result Required. No Result Required. Lymphocytes % (Manual) 14 Monocytes % (Manual) 9 Platelet Estimate Increased Platelet Comment No clumping noted Sodium 129 L Potassium 4.6 Chloride 90 L Carbon Dioxide 31 Anion Gap 8 BUN 11 D Creatinine 0.4 L Creat Clearance w eGFR > 60 Random Glucose 100 Calcium 8.2 L Phosphorus Magnesium Total Bilirubin 0.4 AST 10 L D ALT 11 L Alkaline Phosphatase 100 Total Protein 5.3 L Albumin 2.0 L 08/21/17 08:00 WBC RBC Hgb Hct MCV MCH MCHC RDW Plt Count MPV Total Counted Neutrophils % Neutrophils % (Manual) Band Neuts % (Manual) Lymphocytes % Lymphocytes % (Manual) Monocytes % (Manual) Platelet Estimate Platelet Comment Sodium 128 L Potassium 4.8 Chloride 90 L Carbon Dioxide 27 Anion Gap 11 BUN 8 D Creatinine 0.3 L D Creat Clearance w eGFR > 60 Random Glucose 50 L D Calcium 8.2 L Phosphorus 4.0 D Magnesium 1.5 L D Total Bilirubin 0.5 D AST 9 L ALT 11 L Alkaline Phosphatase 98 Total Protein 5.2 L Albumin 2.0 L Problem List - Problems (1) Fever Code(s): R50.9 - FEVER, UNSPECIFIED Qualifiers: Fever type: unspecified Qualified Code(s): R50.9 - Fever, unspecified; R50.9 - Fever, unspecified (2) Hematuria Code(s): R31.9 - HEMATURIA, UNSPECIFIED Qualifiers: Hematuria type: unspecified type Qualified Code(s): R31.9 - Hematuria, unspecified; R31.9 - Hematuria, unspecified (3) Sacral decubitus ulcer, stage II Code(s): L89.152 - PRESSURE ULCER OF SACRAL REGION, STAGE 2 (4) A-fib Code(s): I48.91 - UNSPECIFIED ATRIAL FIBRILLATION Qualifiers: (5) Acute on chronic respiratory failure with hypoxia and hypercapnia Code(s): J96.21 - ACUTE AND CHRONIC RESPIRATORY FAILURE WITH HYPOXIA J96.22 - ACUTE AND CHRONIC RESPIRATORY FAILURE WITH HYPERCAPNIA (6) Anemia Code(s): D64.9 - ANEMIA, UNSPECIFIED Qualifiers: Anemia type: unspecified type Qualified Code(s): D64.9 - Anemia, unspecified; D64.9 - Anemia, unspecified (7) COPD (chronic obstructive pulmonary disease) Code(s): J44.9 - CHRONIC OBSTRUCTIVE PULMONARY DISEASE, UNSPECIFIED Qualifiers : COPD type: unspecified COPD Qualified Code(s): J44.9 - Chronic obstructive pulmonary disease, unspecified; J44.9 - Chronic obstructive pulmonary disease, unspecified; J44.9 - Chronic obstructive pulmonary disease, unspecified; J44.9 - Chronic obstructive pulmonary disease, unspecified (8) Chest pain Code(s): R07.9 - CHEST PAIN, UNSPECIFIED Qualifiers: Chest pain type: pleurodynia Qualified Code(s): R07.81 - Pleurodynia ; R07.81 - Pleurodynia (9) Diastolic heart failure Code(s): I50.30 - UNSPECIFIED DIASTOLIC (CONGESTIVE) HEART FAILURE Qualifiers : Heart failure chronicity: chronic Qualified Code(s): I50.32 - Chronic diastolic (congestive) heart failure; I50.32 - Chronic diastolic ( congestive) heart failure; I50.32 - Chronic diastolic (congestive) heart failure ; I50.32 - Chronic diastolic (congestive) heart failure (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
--- NOTE | 2017-08-21 12:28 | PN ---
Progress Note, Physician Chief Complaint: UTI and fever History of Present Illness: Patient lying in bed, no SOB, denies CP, aferile, on AC mode mech vent, tolerating well, not in distress. Patient not tolerating regular diet, will try chopped diet as tolerated with strict aspiration precaution. Seen by GI, discussed possible PEG placement if patient will not be able to tolerated food PO. Patient is still OFF abx as per ID, have episodes of fever noted. - Current Medication List Current Medications: Active Medications Acetaminophen (Tylenol -) 650 mg PO Q6H PRN PRN Reason: FEVER OR PAIN Last Admin: 08/21/17 10:03 Dose: 650 mg Acetaminophen (Tylenol Suppository -) 650 mg OR Q6H PRN PRN Reason: FEVER OR PAIN Last Admin: 08/20/17 02:20 Dose: 650 mg Albuterol/Ipratropium (Duoneb -) 1 amp NEB Q6H PRN PRN Reason: SHORTNESS OF BREATH Apixaban (Eliquis -) 5 mg PO BID [facility] Last Admin: 08/21/17 10:04 Dose: 5 mg Cholestyramine Resin (Questran Light Packet -) 4 gm PO DAILY [facility] Last Admin: 08/21/17 10:04 Dose: Not Given Collagenase (Santyl -) 1 applic TP DAILY [facility] Last Admin: 08/21/17 10:04 Dose: 1 applic Diltiazem HCl (Cardizem Cd -) 120 mg PO DAILY [facility] Last Admin: 08/21/17 10:03 Dose: 120 mg Ferrous Sulfate (Feosol -) 325 mg PO DAILY [facility] Last Admin: 08/21/17 10:03 Dose: 325 mg Sodium Chloride (Normal Saline -) 1,000 mls @ 42 mls/hr IV ASDIR [facility] Last Admin: 08/20/17 21:12 Dose: 42 mls/hr Lactobacillus Acidophilus (Bacid -) 1 tab PO DAILY [facility] Last Admin: 08/21/17 10:03 Dose: 1 tab Levothyroxine Sodium (Synthroid -) 75 mcg PO DAILY@0700 [facility] Last Admin: 08/21/17 06:27 Dose: 75 mcg Lorazepam (Ativan Injection -) 0.5 mg IVPUSH TID PRN PRN Reason: ANXIETY Last Admin: 08/20/17 21:13 Dose: 0.5 mg Mirtazapine (Remeron -) 15 mg PO HS [facility] Last Admin: 08/20/17 21:13 Dose: 15 mg Nystatin (Nystop Powder -) 1 applic TP DAILY [facility] Last Admin: 08/21/17 10:04 Dose: 1 applic Oxycodone HCl (Roxicodone -) 5 mg PO Q6H PRN PRN Reason: PAIN Last Admin: 08/17/17 18:09 Dose: 5 mg Ranitidine HCl (Zantac -) 150 mg PO DAILY [facility] Last Admin: 08/21/17 10:03 Dose: 150 mg Thiamine HCl (Vitamin B1 -) 100 mg PO DAILY [facility] Last Admin: 08/21/17 10:03 Dose: 100 mg Valsartan (Diovan -) 80 mg PO DAILY [facility] Last Admin: 08/21/17 10:04 Dose: Not Given - Objective Vital Signs: Vital Signs Temperature 99.7 F H 08/21/17 11:51 Pulse Rate 111 H 08/21/17 10:05 Respiratory Rate 16 08/21/17 10:25 Blood Pressure 129/55 08/21/17 10:05 O2 Sat by Pulse Oximetry (%) 99 08/21/17 10:00 Constitutional: Yes: Calm, Mild Distress Eyes: Yes: EOM Intact HENT: Yes: Normocephalic Neck: Yes: Supple Cardiovascular: Yes: Regular Rate and Rhythm, S1, S2 Respiratory: Yes: Regular, CTA Bilaterally, Diminished, Rhonchi, Wheezes ( occasional) Gastrointestinal: Yes: Normal Bowel Sounds, Soft Edema: No Labs: CBC, BMP 08/21/17 08:00 08/21/17 08:00 INR, PTT INR 2.24 (0.82-1.09) H D 08/12/17 18:00 Problem List - Problems (1) Hematuria Code(s): R31.9 - HEMATURIA, UNSPECIFIED Qualifiers: Hematuria type: unspecified type Qualified Code(s): R31.9 - Hematuria, unspecified; R31.9 - Hematuria, unspecified (2) Sacral decubitus ulcer, stage II Code(s): L89.152 - PRESSURE ULCER OF SACRAL REGION, STAGE 2 (3) Systemic inflammatory response syndrome (SIRS) Code(s): R65.10 - SIRS OF NON-INFECTIOUS ORIGIN W/O ACUTE ORGAN DYSFUNCTION (4) A-fib Code(s): I48.91 - UNSPECIFIED ATRIAL FIBRILLATION Qualifiers: Atrial fibrillation type: paroxysmal Qualified Code(s): I48.0 - Paroxysmal atrial fibrillation; I48.0 - Paroxysmal atrial fibrillation; I48.0 - Paroxysmal atrial fibrillation; I48.0 - Paroxysmal atrial fibrillation (5) Acute and chronic respiratory failure with hypoxia Code(s): J96.21 - ACUTE AND CHRONIC RESPIRATORY FAILURE WITH HYPOXIA Assessment/Plan (1) Fever Assessment/Plan: -febrile episodes noted -ID on board -BC negative -UC, SC and WC : Microbiology 08/12/17 18:10 Blood Culture - Final Blood - Peripheral Venous NO GROWTH AFTER 5 DAYS INCUBATION 08/12/17 18:00 Blood Culture - Final Blood - Peripheral Venous NO GROWTH AFTER 5 DAYS INCUBATION 08/15/17 17:45 Gram Stain - Final Sputum - Endotrachea Suction/Ventilator Sputum Culture - Preliminary Staphylococcus Latex Coag Pos 08/15/17 17:45 Gram Stain - Final Decubiti Wound Culture - Preliminary Presumptive Mrsa (Pbp2a Pos) Pending Organism 08/15/17 17:45 Urine Culture - Final Urine - Urine - Catheterized Yeast Like Organism -D/C IV antibiotic and observe -Re-culture off antibiotics for recurrent fever as per ID Code(s): R50.9 - FEVER, UNSPECIFIED Qualifiers: Fever type: unspecified Qualified Code(s): R50.9 - Fever, unspecified; R50.9 - Fever, unspecified (2) Hematuria Assessment/Plan: -+3 urine in UA -Urology consult pending Code(s): R31.9 - HEMATURIA, UNSPECIFIED Qualifiers: Hematuria type: unspecified type Qualified Code(s): R31.9 - Hematuria, unspecified; R31.9 - Hematuria, unspecified (3) Sacral decubitus ulcer, stage II Assessment/Plan: -seen by Vascular -offloading to the area -santyl -wound culture shows MRSA and VRE Code(s): L89.152 - PRESSURE ULCER OF SACRAL REGION, STAGE 2 (4) Systemic inflammatory response syndrome (SIRS) Assessment/Plan: -ID on board -Off antibiotic -Tylenol for fever over 100.0F Code(s): R65.10 - SIRS OF NON-INFECTIOUS ORIGIN W/O ACUTE ORGAN DYSFUNCTION (5) A-fib Assessment/Plan: -Chronic -controlled -on Eliquis Code(s): I48.91 - UNSPECIFIED ATRIAL FIBRILLATION Qualifiers: Atrial fibrillation type: paroxysmal Qualified Code(s): I48.0 - Paroxysmal atrial fibrillation; I48.0 - Paroxysmal atrial fibrillation; I48.0 - Paroxysmal atrial fibrillation; I48.0 - Paroxysmal atrial fibrillation (6) Acute and chronic respiratory failure with hypoxia Assessment/Plan: -on AC mode mech vent -wean trials as tolerated Code(s): J96.21 - ACUTE AND CHRONIC RESPIRATORY FAILURE WITH HYPOXIA (7) Hypoglycemia Assessment/Plan: -BG 50 -Encourage patient to eat -Change IVF to D5NS Nursing instructions during medication administration: -Place pt on 100% O2 on vent, suction, deflate cuff, administer meds, inflate cuff and place pt back on original FiO2 -Will change diet to chopped. with strict aspiration precaution. -If not tolerated, for possible peg placement. GI spoke with patient.
[2017-08-21] MEDS: DEXTROSE 5%-NORMAL SALINE 1,000 ML IV SCH (14:03)
[2017-08-21] MEDS: MIRTAZAPINE 15 MG TABLET (FP) PO SCH (22:09)
[2017-08-21] MEDS: LORazepam 2 MG/ML SDV VIAL IVPUSH PRN (22:09)
[2017-08-22] MEDS: LEVOTHYROXINE NA 75 MCG TABLET (FP) PO SCH (06:09)
[2017-08-22] MEDS: ACETAMINOPHEN 325 MG TABLET (FP) PO PRN ×2 (06:13→09:49)
[2017-08-22] MEDS: DEXTROSE 5%-NORMAL SALINE 1,000 ML IV SCH ×2 (06:51→12:45)
[2017-08-22 07:27] LABS: BASOPHIL 0.8 % (0-2.0); EOSINOPHIL 1.1 % (0-4.5); MCH 28.7 pg (25.7-33.7); MCHC 32.7 g/dl (32.0-36.0); MEAN CELL VOLUME 87.6 fl (80-96); MEAN PLT VOLUME 8.4 fl (7.5-11.1); NEUTROPHILS 75.8 % (42.8-82.8); PLATELET COUNT 488 K/MM3 (134-434); RDW 16.2 % (11.6-15.6); WHITE BLOOD COUNT 15.5 K/mm3 (4.0-10.0)
[2017-08-22 07:51] LABS: ALBUMIN 2.1 g/dl (3.4-5.0); ANION GAP 8 (8-16); CO2 30 mmol/L (21-32); CREATININE 0.4 mg/dL (0.55-1.02); GLUCOSE,RANDOM 79 mg/dL (74-106); MAGNESIUM 1.5 mg/dL (1.8-2.4); PHOSPHOROUS 3.5 mg/dL (2.5-4.9); SGOT/AST 13 U/L (15-37); SGPT/ALT 11 U/L (12-78)
[2017-08-22 07:53] LABS: ALK PHOS 105 U/L (45-117); BILIRUBIN,TOTAL 0.4 mg/dL (0.2-1.0); TOT PROT 5.5 g/dl (6.4-8.2)
[2017-08-22] MEDS ORDERED: PT OWN MED DRAWER 7, Y5N ONE ×4 (09:44→21:38)
[2017-08-22] MEDS: VALSARTAN 80 MG TABLET (UD) PO SCH (09:49)
[2017-08-22] MEDS: APIXABAN 5 MG TABLET PO SCH ×2 (09:49→22:41)
[2017-08-22] MEDS: FERROUS SO4 325 MG TABLET (FP) PO SCH ×2 (09:51→18:01)
[2017-08-22] MEDS: RANITIDINE HCL 150 MG TABLET (FP) PO SCH (09:51)
[2017-08-22] MEDS: LACTOBACILLUS ACIDOPHILUS 1 EACH TAB (FP) PO SCH ×2 (09:51→18:01)
[2017-08-22] MEDS: CHOLESTYRAMINE/ASPARTAME 4 GM PACKET PO SCH (10:01)
[2017-08-22] MEDS: COLLAGENASE CLOSTRIDIUM HIST. 30 GRAMS TUBE TP SCH (10:02)
[2017-08-22] MEDS: NYSTATIN POWDER 100,000 UNITS/GM - 15 GM TOPICAL POWDER TP SCH (10:05)
--- NOTE | 2017-08-22 13:08 | PN ---
Progress Note, Physician History of Present Illness: PULMONARY DROWSY,ON VENT SUPPORT AC MODE ,-RESP DISTRESS ,FEBRILE 101.4 - Current Medication List Current Medications: Active Medications Acetaminophen (Tylenol -) 650 mg PO Q6H PRN PRN Reason: FEVER OR PAIN Last Admin: 08/22/17 09:49 Dose: 650 mg Acetaminophen (Tylenol Suppository -) 650 mg CA Q6H PRN PRN Reason: FEVER OR PAIN Last Admin: 08/20/17 02:20 Dose: 650 mg Albuterol/Ipratropium (Duoneb -) 1 amp NEB Q6H PRN PRN Reason: SHORTNESS OF BREATH Amino Acids (Prosource No Carb Liquid Pkt) 30 ml PO BID@0800,1730 [facility] Apixaban (Eliquis -) 5 mg PO BID [facility] Last Admin: 08/22/17 09:49 Dose: 5 mg Cholestyramine Resin (Questran Light Packet -) 4 gm PO DAILY [facility] Last Admin: 08/22/17 10:01 Dose: Not Given Collagenase (Santyl -) 1 applic TP DAILY [facility] Last Admin: 08/22/17 10:02 Dose: 1 applic Diltiazem HCl (Cardizem Cd -) 120 mg PO DAILY [facility] Last Admin: 08/22/17 09:49 Dose: 120 mg Ferrous Sulfate (Feosol -) 325 mg PO DAILY [facility] Last Admin: 08/22/17 09:51 Dose: 325 mg Folic Acid (Folic Acid -) 1 mg PO DAILY [facility] Dextrose/Sodium Chloride (D5-Ns -) 1,000 mls @ 42 mls/hr IV ASDIR [facility] Last Admin: 08/22/17 06:51 Dose: 42 mls/hr Lactobacillus Acidophilus (Bacid -) 1 tab PO DAILY [facility] Last Admin: 08/21/17 10:03 Dose: 1 tab Levothyroxine Sodium (Synthroid -) 75 mcg PO DAILY@0700 [facility] Last Admin: 08/22/17 06:09 Dose: 75 mcg Lorazepam (Ativan Injection -) 0.5 mg IVPUSH TID PRN PRN Reason: ANXIETY Last Admin: 08/21/17 22:09 Dose: 0.5 mg Mirtazapine (Remeron -) 15 mg PO HS [facility] Last Admin: 08/21/17 22:09 Dose: 15 mg Nystatin (Nystop Powder -) 1 applic TP DAILY [facility] Last Admin: 08/22/17 10:05 Dose: 1 applic Oxycodone HCl (Roxicodone -) 5 mg PO Q6H PRN PRN Reason: PAIN Last Admin: 08/17/17 18:09 Dose: 5 mg Ranitidine HCl (Zantac -) 150 mg PO DAILY [facility] Last Admin: 08/22/17 09:51 Dose: 150 mg Thiamine HCl (Vitamin B1 -) 100 mg PO DAILY [facility] Last Admin: 08/21/17 10:03 Dose: 100 mg Valsartan (Diovan -) 80 mg PO DAILY [facility] Last Admin: 08/22/17 09:49 Dose: 80 mg Zinc Sulfate (Orazinc -) 220 mg PO DAILY [facility] - Objective Vital Signs: Vital Signs Temperature 99.2 F 08/22/17 12:44 Pulse Rate 100 H 08/22/17 12:44 Respiratory Rate 12 08/22/17 12:44 Blood Pressure 108/51 08/22/17 12:44 O2 Sat by Pulse Oximetry (%) 98 08/22/17 10:22 Constitutional: Yes: Calm, Thin Eyes: Yes: WNL HENT: Yes: WNL Neck: Yes: WNL Cardiovascular: Yes: Pulse Irregular, S1, S2 Respiratory: Yes: Rhonchi Gastrointestinal: Yes: Normal Bowel Sounds, Soft Extremities: Yes: WNL Edema: No Labs: CBC, BMP 08/22/17 06:45 08/22/17 06:45 INR, PTT INR 2.24 (0.82-1.09) H D 08/12/17 18:00 Problem List - Problems (1) Fever Code(s): R50.9 - FEVER, UNSPECIFIED Qualifiers: Fever type: unspecified Qualified Code(s): R50.9 - Fever, unspecified; R50.9 - Fever, unspecified (2) Hematuria Code(s): R31.9 - HEMATURIA, UNSPECIFIED Qualifiers: Hematuria type: unspecified type Qualified Code(s): R31.9 - Hematuria, unspecified; R31.9 - Hematuria, unspecified (3) Sacral decubitus ulcer, stage II Code(s): L89.152 - PRESSURE ULCER OF SACRAL REGION, STAGE 2 (4) A-fib Code(s): I48.91 - UNSPECIFIED ATRIAL FIBRILLATION Qualifiers: Atrial fibrillation type: paroxysmal Qualified Code(s): I48.0 - Paroxysmal atrial fibrillation; I48.0 - Paroxysmal atrial fibrillation; I48.0 - Paroxysmal atrial fibrillation; I48.0 - Paroxysmal atrial fibrillation (5) Acute on chronic respiratory failure with hypoxia and hypercapnia Code(s): J96.21 - ACUTE AND CHRONIC RESPIRATORY FAILURE WITH HYPOXIA J96.22 - ACUTE AND CHRONIC RESPIRATORY FAILURE WITH HYPERCAPNIA (6) Anemia Code(s): D64.9 - ANEMIA, UNSPECIFIED Qualifiers: Anemia type: unspecified type Qualified Code(s): D64.9 - Anemia, unspecified; D64.9 - Anemia, unspecified (7) COPD (chronic obstructive pulmonary disease) Code(s): J44.9 - CHRONIC OBSTRUCTIVE PULMONARY DISEASE, UNSPECIFIED Qualifiers : COPD type: unspecified COPD Qualified Code(s): J44.9 - Chronic obstructive pulmonary disease, unspecified; J44.9 - Chronic obstructive pulmonary disease, unspecified; J44.9 - Chronic obstructive pulmonary disease, unspecified; J44.9 - Chronic obstructive pulmonary disease, unspecified (8) Chest pain Code(s): R07.9 - CHEST PAIN, UNSPECIFIED Qualifiers: Chest pain type: pleurodynia Qualified Code(s): R07.81 - Pleurodynia ; R07.81 - Pleurodynia (9) Diastolic heart failure Code(s): I50.30 - UNSPECIFIED DIASTOLIC (CONGESTIVE) HEART FAILURE Qualifiers : Heart failure chronicity: chronic Qualified Code(s): I50.32 - Chronic diastolic (congestive) heart failure; I50.32 - Chronic diastolic ( congestive) heart failure; I50.32 - Chronic diastolic (congestive) heart failure ; I50.32 - Chronic diastolic (congestive) heart failure (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 Assessment/Plan IMP ACUTE ON CHRONIC HYPOXEMIC/HYPERCAPNEIC RESPIRATORY FAILURE FEVER ANEMIA COPD AFIB HEMATURIA DIASTOLIC HF PLAN VENT SUPPORT ON AC MODE INHALED BRONCHODILATORS ANTIBIOTICS PER ID MONITOR H+H CULTURES ID CHEST X-RAY DR RAG[place] Problem List - Problems (1) Fever Code(s): R50.9 - FEVER, UNSPECIFIED Qualifiers: Fever type: unspecified Qualified Code(s): R50.9 - Fever, unspecified; R50.9 - Fever, unspecified (2) Hematuria Code(s): R31.9 - HEMATURIA, UNSPECIFIED Qualifiers: Hematuria type: unspecified type Qualified Code(s): R31.9 - Hematuria, unspecified; R31.9 - Hematuria, unspecified (3) Sacral decubitus ulcer, stage II Code(s): L89.152 - PRESSURE ULCER OF SACRAL REGION, STAGE 2 (4) A-fib Code(s): I48.91 - UNSPECIFIED ATRIAL FIBRILLATION Qualifiers: (5) Acute on chronic respiratory failure with hypoxia and hypercapnia Code(s): J96.21 - ACUTE AND CHRONIC RESPIRATORY FAILURE WITH HYPOXIA J96.22 - ACUTE AND CHRONIC RESPIRATORY FAILURE WITH HYPERCAPNIA (6) Anemia Code(s): D64.9 - ANEMIA, UNSPECIFIED Qualifiers: Anemia type: unspecified type Qualified Code(s): D64.9 - Anemia, unspecified; D64.9 - Anemia, unspecified (7) COPD (chronic obstructive pulmonary disease) Code(s): J44.9 - CHRONIC OBSTRUCTIVE PULMONARY DISEASE, UNSPECIFIED Qualifiers : COPD type: unspecified COPD Qualified Code(s): J44.9 - Chronic obstructive pulmonary disease, unspecified; J44.9 - Chronic obstructive pulmonary disease, unspecified; J44.9 - Chronic obstructive pulmonary disease, unspecified; J44.9 - Chronic obstructive pulmonary disease, unspecified (8) Chest pain Code(s): R07.9 - CHEST PAIN, UNSPECIFIED Qualifiers: Chest pain type: pleurodynia Qualified Code(s): R07.81 - Pleurodynia ; R07.81 - Pleurodynia (9) Diastolic heart failure Code(s): I50.30 - UNSPECIFIED DIASTOLIC (CONGESTIVE) HEART FAILURE Qualifiers : Heart failure chronicity: chronic Qualified Code(s): I50.32 - Chronic diastolic (congestive) heart failure; I50.32 - Chronic diastolic ( congestive) heart failure; I50.32 - Chronic diastolic (congestive) heart failure ; I50.32 - Chronic diastolic (congestive) heart failure (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
[2017-08-22] MEDS: FOLIC ACID 1 MG TABLET (FP) PO SCH (18:01)
[2017-08-22] MEDS: THIAMINE HCL 100 MG TABLET (FP) PO SCH (18:01)
[2017-08-22] MEDS: ZINC SULFATE 220 MG CAPSULE (FP) PO SCH (18:05)
[2017-08-22] MEDS: AMINO ACIDS/PROTEIN HYDROLYS 30 ML LIQUID.PKT PO SCH (18:09)
--- NOTE | 2017-08-22 21:04 | PN ---
Progress Note, Physician History of Present Illness: Awake, responsive Remains febrile Diarrhea reported by staff Repeat cultures obtained - Current Medication List Current Medications: Active Medications Acetaminophen (Tylenol -) 650 mg PO Q6H PRN PRN Reason: FEVER OR PAIN Last Admin: 08/22/17 09:49 Dose: 650 mg Acetaminophen (Tylenol Suppository -) 650 mg [place] Q6H PRN PRN Reason: FEVER OR PAIN Last Admin: 08/20/17 02:20 Dose: 650 mg Albuterol/Ipratropium (Duoneb -) 1 amp NEB Q6H PRN PRN Reason: SHORTNESS OF BREATH Amino Acids (Prosource No Carb Liquid Pkt) 30 ml PO BID@0800,1730 [facility] Last Admin: 08/22/17 18:09 Dose: Not Given Apixaban (Eliquis -) 5 mg PO BID [facility] Last Admin: 08/22/17 09:49 Dose: 5 mg Cholestyramine Resin (Questran Light Packet -) 4 gm PO DAILY [facility] Last Admin: 08/22/17 10:01 Dose: Not Given Collagenase (Santyl -) 1 applic TP DAILY [facility] Last Admin: 08/22/17 10:02 Dose: 1 applic Diltiazem HCl (Cardizem Cd -) 120 mg PO DAILY [facility] Last Admin: 08/22/17 09:49 Dose: 120 mg Ferrous Sulfate (Feosol -) 325 mg PO DAILY [facility] Last Admin: 08/22/17 18:01 Dose: 325 mg Folic Acid (Folic Acid -) 1 mg PO DAILY [facility] Last Admin: 08/22/17 18:01 Dose: 1 mg Dextrose/Sodium Chloride (D5-Ns -) 1,000 mls @ 42 mls/hr IV ASDIR [facility] Last Admin: 08/22/17 12:45 Dose: Not Given Lactobacillus Acidophilus (Bacid -) 1 tab PO DAILY [facility] Last Admin: 08/22/17 18:01 Dose: 1 tab Levothyroxine Sodium (Synthroid -) 75 mcg PO DAILY@0700 [facility] Last Admin: 08/22/17 06:09 Dose: 75 mcg Lorazepam (Ativan Injection -) 0.5 mg IVPUSH TID PRN PRN Reason: ANXIETY Last Admin: 08/21/17 22:09 Dose: 0.5 mg Mirtazapine (Remeron -) 15 mg PO HS [facility] Last Admin: 08/21/17 22:09 Dose: 15 mg Nystatin (Nystop Powder -) 1 applic TP DAILY [facility] Last Admin: 08/22/17 10:05 Dose: 1 applic Ranitidine HCl (Zantac -) 150 mg PO DAILY [facility] Last Admin: 08/22/17 09:51 Dose: 150 mg Thiamine HCl (Vitamin B1 -) 100 mg PO DAILY [facility] Last Admin: 08/22/17 18:01 Dose: 100 mg Valsartan (Diovan -) 80 mg PO DAILY [facility] Last Admin: 08/22/17 09:49 Dose: 80 mg Zinc Sulfate (Orazinc -) 220 mg PO DAILY [facility] Last Admin: 08/22/17 18:05 Dose: 220 mg - Objective Vital Signs: Vital Signs Temperature 98.7 F 08/22/17 14:55 Pulse Rate 100 H 08/22/17 14:55 Respiratory Rate 12 08/22/17 17:46 Blood Pressure 124/51 08/22/17 14:55 O2 Sat by Pulse Oximetry (%) 98 08/22/17 11:30 Constitutional: Yes: No Distress Eyes: Yes: Conjunctiva Clear Cardiovascular: Yes: Regular Rate and Rhythm, S1, S2 Respiratory: Yes: Diminished Gastrointestinal: Yes: Normal Bowel Sounds, Soft Labs: CBC, BMP 08/22/17 06:45 08/22/17 06:45 INR, PTT INR 2.24 (0.82-1.09) H D 08/12/17 18:00 Assessment/Plan FUO Resp failure Hx MRSA/VRE colonization Recultured off antibiotics for recurrent fever Obtain stool C difficile Start empiric flagyl
--- NOTE | 2017-08-22 21:09 | PN ---
Progress Note, Physician Chief Complaint: UTI, Fever History of Present Illness: NAD, on mech vent lethargic today was febrile earlier in AM poor appetite diarrhea off IV abx Wbc increased - Current Medication List Current Medications: Active Medications Acetaminophen (Tylenol -) 650 mg PO Q6H PRN PRN Reason: FEVER OR PAIN Last Admin: 08/22/17 09:49 Dose: 650 mg Acetaminophen (Tylenol Suppository -) 650 mg [place] Q6H PRN PRN Reason: FEVER OR PAIN Last Admin: 08/20/17 02:20 Dose: 650 mg Albuterol/Ipratropium (Duoneb -) 1 amp NEB Q6H PRN PRN Reason: SHORTNESS OF BREATH Amino Acids (Prosource No Carb Liquid Pkt) 30 ml PO BID@0800,1730 [facility] Last Admin: 08/22/17 18:09 Dose: Not Given Apixaban (Eliquis -) 5 mg PO BID [facility] Last Admin: 08/22/17 09:49 Dose: 5 mg Cholestyramine Resin (Questran Light Packet -) 4 gm PO DAILY [facility] Last Admin: 08/22/17 10:01 Dose: Not Given Collagenase (Santyl -) 1 applic TP DAILY [facility] Last Admin: 08/22/17 10:02 Dose: 1 applic Diltiazem HCl (Cardizem Cd -) 120 mg PO DAILY [facility] Last Admin: 08/22/17 09:49 Dose: 120 mg Ferrous Sulfate (Feosol -) 325 mg PO DAILY [facility] Last Admin: 08/22/17 18:01 Dose: 325 mg Folic Acid (Folic Acid -) 1 mg PO DAILY [facility] Last Admin: 08/22/17 18:01 Dose: 1 mg Dextrose/Sodium Chloride (D5-Ns -) 1,000 mls @ 42 mls/hr IV ASDIR [facility] Last Admin: 08/22/17 12:45 Dose: Not Given Lactobacillus Acidophilus (Bacid -) 1 tab PO DAILY [facility] Last Admin: 08/22/17 18:01 Dose: 1 tab Levothyroxine Sodium (Synthroid -) 75 mcg PO DAILY@0700 [facility] Last Admin: 08/22/17 06:09 Dose: 75 mcg Lorazepam (Ativan Injection -) 0.5 mg IVPUSH TID PRN PRN Reason: ANXIETY Last Admin: 08/21/17 22:09 Dose: 0.5 mg Mirtazapine (Remeron -) 15 mg PO HS [facility] Last Admin: 08/21/17 22:09 Dose: 15 mg Nystatin (Nystop Powder -) 1 applic TP DAILY [facility] Last Admin: 08/22/17 10:05 Dose: 1 applic Ranitidine HCl (Zantac -) 150 mg PO DAILY [facility] Last Admin: 08/22/17 09:51 Dose: 150 mg Thiamine HCl (Vitamin B1 -) 100 mg PO DAILY [facility] Last Admin: 08/22/17 18:01 Dose: 100 mg Valsartan (Diovan -) 80 mg PO DAILY [facility] Last Admin: 08/22/17 09:49 Dose: 80 mg Zinc Sulfate (Orazinc -) 220 mg PO DAILY [facility] Last Admin: 08/22/17 18:05 Dose: 220 mg - Objective Vital Signs: Vital Signs Temperature 98.7 F 08/22/17 14:55 Pulse Rate 100 H 08/22/17 14:55 Respiratory Rate 12 08/22/17 17:46 Blood Pressure 124/51 08/22/17 14:55 O2 Sat by Pulse Oximetry (%) 98 08/22/17 11:30 Constitutional: Yes: Well Nourished, No Distress, Calm Cardiovascular: Yes: Regular Rate and Rhythm Respiratory: Yes: Regular, Mechanically Ventilated Gastrointestinal: Yes: Normal Bowel Sounds Edema: No Peripheral Pulses WNL: Yes Neurological: Yes: Alert, Oriented Psychiatric: Yes: Alert, Oriented Labs: CBC, BMP 08/22/17 06:45 08/22/17 06:45 INR, PTT INR 2.24 (0.82-1.09) H D 08/12/17 18:00 Problem List - Problems (1) Fever Assessment/Plan: -febrile earlier in AM -off abx -repeat BC -repeat stool culture, O&P -tylenol for fever over 100.0F -to be re-evaluated by ID -repeat labs in AM Code(s): R50.9 - FEVER, UNSPECIFIED Qualifiers: Fever type: unspecified Qualified Code(s): R50.9 - Fever, unspecified; R50.9 - Fever, unspecified (2) Hematuria Assessment/Plan: -+3 urine in UA -seen by Urology -U/S bladder renal negative for hydronephrosis, shows large post voidal residual. 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 her a trial of alpha aric like tamsulosin- would monitor efficacy in 3 days Code(s): R31.9 - HEMATURIA, UNSPECIFIED Qualifiers: Hematuria type: unspecified type Qualified Code(s): R31.9 - Hematuria, unspecified; R31.9 - Hematuria, unspecified (3) Sacral decubitus ulcer, stage II Assessment/Plan: -seen by Vascular -offloading to the area -santyl -wound culture shows MRSA and VRE Code(s): L89.152 - PRESSURE ULCER OF SACRAL REGION, STAGE 2 (4) Systemic inflammatory response syndrome (SIRS) Assessment/Plan: -seen by ID -Tylenol for fever over 100.0F Code(s): R65.10 - SIRS OF NON-INFECTIOUS ORIGIN W/O ACUTE ORGAN DYSFUNCTION (5) A-fib Assessment/Plan: -Chronic -controlled -on Eliquis Code(s): I48.91 - UNSPECIFIED ATRIAL FIBRILLATION Qualifiers: Atrial fibrillation type: paroxysmal Qualified Code(s): I48.0 - Paroxysmal atrial fibrillation; I48.0 - Paroxysmal atrial fibrillation; I48.0 - Paroxysmal atrial fibrillation; I48.0 - Paroxysmal atrial fibrillation (6) Acute and chronic respiratory failure with hypoxia Assessment/Plan: -on mechanical vent -goes on Trach collar at the [facility], would give her a trial once stable Code(s): J96.21 - ACUTE AND CHRONIC RESPIRATORY FAILURE WITH HYPOXIA Assessment/Plan Also,see problem list.
[2017-08-22] MEDS: MIRTAZAPINE 15 MG TABLET (FP) PO SCH (22:41)
[2017-08-23] MEDS: ACETAMINOPHEN 325 MG TABLET (FP) PO PRN ×2 (02:35→18:06)
[2017-08-23] MEDS: DEXTROSE 5%-NORMAL SALINE 1,000 ML IV SCH ×2 (06:24→12:45)
[2017-08-23] MEDS: LEVOTHYROXINE NA 75 MCG TABLET (FP) PO SCH (06:25)
[2017-08-23 08:24] LABS: MCH 28.8 pg (25.7-33.7); MCHC 32.4 g/dl (32.0-36.0); MEAN CELL VOLUME 88.7 fl (80-96); MEAN PLT VOLUME 8.2 fl (7.5-11.1); PLATELET COUNT 432 K/MM3 (134-434); RDW 15.8 % (11.6-15.6); WHITE BLOOD COUNT 14.1 K/mm3 (4.0-10.0)
[2017-08-23 08:52] LABS: ALBUMIN 1.9 g/dl (3.4-5.0); ALK PHOS 101 U/L (45-117); ANION GAP 7 (8-16); BILIRUBIN,TOTAL 0.5 mg/dL (0.2-1.0); CALCIUM 7.5 mg/dL (8.5-10.1); CO2 29 mmol/L (21-32); CREATININE 0.3 mg/dL (0.55-1.02); GLUCOSE,RANDOM 85 mg/dL (74-106); SGOT/AST 13 U/L (15-37); SGPT/ALT 10 U/L (12-78); TOT PROT 5.1 g/dl (6.4-8.2)
[2017-08-23 10:01] LABS: METAMYELOCYTE 2 % (0-2); MYELOCYTE 2 % (0-2); PLATELET ESTIMATE ADEQUATE (NORMAL); TOTAL CELLS COUNTED 100
--- NOTE | 2017-08-23 11:02 | PN ---
Progress Note (short form) - Note Progress Note: PULMONARY Febrile overnight. Vented on volume assist control with 40% FiO2. Last Vital Signs Temp Pulse Resp BP Pulse Ox 99.2 F 102 H 14 116/60 97 08/23/17 06:00 08/23/17 10:37 08/23/17 10:37 08/23/17 06:00 08/23/17 10:37 Gen: vented, arousable Heart: RRR Lung: distant breath sounds Abd: soft, nontender Ext: no edema CBC, BMP 08/23/17 07:50 08/23/17 07:50 Active Medications Acetaminophen (Tylenol -) 650 mg PO Q6H PRN PRN Reason: FEVER OR PAIN Last Admin: 08/23/17 02:35 Dose: 650 mg Acetaminophen (Tylenol Suppository -) 650 mg [place] Q6H PRN PRN Reason: FEVER OR PAIN Last Admin: 08/20/17 02:20 Dose: 650 mg Albuterol/Ipratropium (Duoneb -) 1 amp NEB Q6H PRN PRN Reason: SHORTNESS OF BREATH Amino Acids (Prosource No Carb Liquid Pkt) 30 ml PO BID@0800,1730 [facility] Last Admin: 08/22/17 18:09 Dose: Not Given Apixaban (Eliquis -) 5 mg PO BID [facility] Last Admin: 08/22/17 22:41 Dose: 5 mg Cholestyramine Resin (Questran Light Packet -) 4 gm PO DAILY [facility] Last Admin: 08/22/17 10:01 Dose: Not Given Collagenase (Santyl -) 1 applic TP DAILY [facility] Last Admin: 08/22/17 10:02 Dose: 1 applic Diltiazem HCl (Cardizem Cd -) 120 mg PO DAILY [facility] Last Admin: 08/22/17 09:49 Dose: 120 mg Ferrous Sulfate (Feosol -) 325 mg PO DAILY [facility] Last Admin: 08/22/17 18:01 Dose: 325 mg Folic Acid (Folic Acid -) 1 mg PO DAILY [facility] Last Admin: 08/22/17 18:01 Dose: 1 mg Dextrose/Sodium Chloride (D5-Ns -) 1,000 mls @ 42 mls/hr IV ASDIR [facility] Last Admin: 08/23/17 06:24 Dose: 42 mls/hr Lactobacillus Acidophilus (Bacid -) 1 tab PO DAILY [facility] Last Admin: 08/22/17 18:01 Dose: 1 tab Levothyroxine Sodium (Synthroid -) 75 mcg PO DAILY@0700 [facility] Last Admin: 08/23/17 06:25 Dose: 75 mcg Lorazepam (Ativan Injection -) 0.5 mg IVPUSH TID PRN PRN Reason: ANXIETY Last Admin: 08/21/17 22:09 Dose: 0.5 mg Metronidazole (Flagyl -) 500 mg PO TID [facility] Mirtazapine (Remeron -) 15 mg PO HS [facility] Last Admin: 08/22/17 22:41 Dose: 15 mg Nystatin (Nystop Powder -) 1 applic TP DAILY [facility] Last Admin: 08/22/17 10:05 Dose: 1 applic Ranitidine HCl (Zantac -) 150 mg PO DAILY [facility] Last Admin: 08/22/17 09:51 Dose: 150 mg Tamsulosin HCl (Flomax -) 0.4 mg PO DAILY@1730 [facility] Thiamine HCl (Vitamin B1 -) 100 mg PO DAILY [facility] Last Admin: 08/22/17 18:01 Dose: 100 mg Valsartan (Diovan -) 80 mg PO DAILY [facility] Last Admin: 08/22/17 09:49 Dose: 80 mg Zinc Sulfate (Orazinc -) 220 mg PO DAILY [facility] Last Admin: 08/22/17 18:05 Dose: 220 mg A/P Acute on Chronic Hypoxic and Hypercapneic Respiratory Failure Fever r/o C Diff COPD Atrial Fibrillation LV Diastolic Dysfunction - antibiotics per ID - f/u cultures - inhaled bronchodilators - continue volume assist control - spontaneous breathing trials when more stable - enteral feeds - on anticoagulation
--- NOTE | 2017-08-23 11:18 | CONSULT ---
Admitting History and Physical - Primary Care Physician PCP: Cindy Cavanaugh - Admission History of Present Illness: Admission EMR NOTE: History of Present Illness: The patient is a 67 year old female resident from [facility], with a significant past medical history of anemia, afib, gastroparesis, hypothyroidism , COPD, respiratory failure s/p tracheostomy, who presents to the emergency room via EMS with a fever that began approx. a couple days ago and s/p barker catheter placement where hematuria was noted. The patient reports she has had a fever for the past couple days without any other sypmtoms, she did note an episode of chest discomfort that began this morning (now resolved). The patient denies dysuria or change in frequency. She denies nausea, vomiting or dizziness. She denies cardiac chest pain or shortness of breath. Selected Entries 08/19/17 08/20/17 08/20/17 16:04 12:11 15:38 Breakfast 0 Diet Tolerated Refused Refused Lunch 25% 0 Skin Risk Level Supper Total Score - Skin Risk Assessment Temperature 08/20/17 08/21/17 08/21/17 18:54 11:44 12:37 Breakfast NPO Diet Tolerated Refused Lunch 25% Skin Risk Level Supper 0 Total Score - Skin Risk Assessment Temperature 08/21/17 08/22/17 08/22/17 18:53 06:00 07:00 Breakfast Diet Tolerated Lunch Skin Risk Level Supper 50% Total Score - Skin Risk Assessment Temperature 100.9 F H 99.0 F 08/22/17 08/22/17 08/22/17 09:16 11:50 12:44 Breakfast 0 Diet Tolerated Refused Lunch Skin Risk Level Supper Total Score - Skin Risk Assessment Temperature 101.4 F H 99.2 F 08/22/17 08/22/17 08/23/17 14:55 22:00 02:00 Breakfast Diet Tolerated Refused Lunch 0 Skin Risk Level High Risk Supper Total Score - 11 Skin Risk Assessment Temperature 98.7 F 99.5 F 103.9 F H 08/23/17 08/23/17 06:00 11:00 Breakfast Diet Tolerated Lunch Skin Risk Level Supper Total Score - Skin Risk Assessment Temperature 99.2 F 99.4 F Laboratory Tests 08/20/17 08/21/17 08/22/17 12:40 08:00 06:45 WBC 11.7 H 12.9 H 15.5 H 08/23/17 07:50 WBC 14.1 H CXR (-). Poor po acceptance per staff. GI consultation noted. Pending pt decision regarding PEG insertion. Downgraded to chopped diet. Last MBS, 07/26/17 Swallowing intact. Rec: reg diet/thin liquid. PMV as tolerated (to improve upper airway function and sensation,improve communication and normalize system and to expedite weaning from ventilator.), PMV with meals, Remove PMV while sleeping, Monitor Pulse Ox PMV on (Cuff deflation mealtime, with PMV, and increase tidal volume x 50-100, based on comfort/tolerance) PMV not used during this admission. At [facility], order for PMV but not placed per transfer notes. History Source: Patient, Medical Record Limitations to Obtaining History: Other (On ventilator,without PMV, speaking over cuff intermittently, and mouthing words. 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: Yes: CVA, Other (poor short term memory) Cardiovascular: Yes: AFIB, HTN Pulmonary: Yes: COPD, Previously Intubated, Other (RESPIRATORY FAILURE) Heme/Onc: Yes: Hypercoaguable State Infectious Disease: Yes: C-Diff Endocrine: Yes: Hypothyroidism - Past Surgical History Past Surgical History: Yes: Appendectomy - Smoking History Smoking history: Unknown if ever smoked Have you smoked in the past 12 months: No If you are a former smoker, when did you quit?: 2008 - Alcohol/Substance Use Hx Alcohol Use: No History of Substance Use: reports: None - Social History ADL: Family Assistance History of Recent Travel: No History - Admission Reason For Visit: DECUBITUS ULCER OF SACRAL REFION,STAGE 3,FEVER - Diagnostics X-ray: Report Reviewed Modified Barium Swallow: Report Reviewed - General Mental Status: Awake and Alert, Able to Follow Commands Attention: Intact Ability to Follow Directions: Good Head/Neck Control: Fair - Hearing Hearing: Normal Speech Evaluation - Communication Primary Language: T[place] Oral Expression Ability: Yes: Non-Vocal (On ventilator,without PMV, speaking over cuff intermittently, and mouthing words.Voice euphonic when speaking over cuff.) - Speech Characteristics Articulation: Yes: Precise - Language/Auditory Comprehension Observation: Comprehends Conversational Speech: Yes - Swallow Evaluation/Bedside Assessment Current Nutritional Intake: Thin Liquids, Other (chopped) Oral Secretions: Yes: WFL Dentition: Yes: Dental Appliance Upper Facial Symmetry at Rest: Symmetrical Facial Symmetry on Retraction: Symmetrical Pucker Lips: Normal Smile: Normal Lingual Movement: Normal, Symmetric Lingual Speed of Movement: Normal Lingual Movement Strgth Against Opposition: Normal Lingual Movement Characteristics: Normal Velopharyngeal Movement: Normal Laryngeal Movement: Able to Palpate Chewing: WFL Oral Prep Time: WFL A-P Transit: WFL Pocketing: None Timing of Swallow: WFL Coughing/Throat Clear: No Change in Voice: No Recommendations - Speech Evaluation, Impression/Plan Impression: CXR (-). Poor po acceptance per staff. GI consultation noted. Pending pt decision regarding PEG insertion. Previous MBS x 2 (-). Pt would benefit from PMV, however, staff feels pt is too weak at this time. Pt c/o back pain. W/u regarding etiology in progress. - Dysphagia Impressions/Plan Dysphagia Impressions: Ongoing Evaluation *Silent aspiration: cannot be R/O at bedside Recommendations: Passy Tamie Valve (when medically appropriate) - Recommendations Diet Consistency: Other (po as tolerated, and desired.)
[2017-08-23] MEDS: VALSARTAN 80 MG TABLET (UD) PO SCH (11:19)
[2017-08-23] MEDS: metroNIDAZOLE 250 MG TABLET PO SCH ×3 (11:19→23:41)
[2017-08-23] MEDS: THIAMINE HCL 100 MG TABLET (FP) PO SCH (11:20)
[2017-08-23] MEDS: FOLIC ACID 1 MG TABLET (FP) PO SCH (11:20)
[2017-08-23] MEDS: FERROUS SO4 325 MG TABLET (FP) PO SCH (11:20)
[2017-08-23] MEDS: RANITIDINE HCL 150 MG TABLET (FP) PO SCH (11:20)
[2017-08-23] MEDS: ZINC SULFATE 220 MG CAPSULE (FP) PO SCH (11:20)
[2017-08-23] MEDS: LACTOBACILLUS ACIDOPHILUS 1 EACH TAB (FP) PO SCH (11:20)
--- NOTE | 2017-08-23 11:39 | PN ---
Progress Note, Physician Chief Complaint: UTI, Fever History of Present Illness: NAD, on mech vent lethargic today was febrile earlier in AM poor appetite diarrhea off IV abx Wbc increased placed on PO flagyl cdiff resent - Current Medication List Current Medications: Active Medications Acetaminophen (Tylenol -) 650 mg PO Q6H PRN PRN Reason: FEVER OR PAIN Last Admin: 08/23/17 02:35 Dose: 650 mg Acetaminophen (Tylenol Suppository -) 650 mg [place] Q6H PRN PRN Reason: FEVER OR PAIN Last Admin: 08/20/17 02:20 Dose: 650 mg Albuterol/Ipratropium (Duoneb -) 1 amp NEB Q6H PRN PRN Reason: SHORTNESS OF BREATH Amino Acids (Prosource No Carb Liquid Pkt) 30 ml PO BID@0800,1730 [facility] Last Admin: 08/22/17 18:09 Dose: Not Given Apixaban (Eliquis -) 5 mg PO BID [facility] Last Admin: 08/22/17 22:41 Dose: 5 mg Cholestyramine Resin (Questran Light Packet -) 4 gm PO DAILY [facility] Last Admin: 08/22/17 10:01 Dose: Not Given Collagenase (Santyl -) 1 applic TP DAILY [facility] Last Admin: 08/22/17 10:02 Dose: 1 applic Diltiazem HCl (Cardizem Cd -) 120 mg PO DAILY [facility] Last Admin: 08/23/17 11:19 Dose: 120 mg Ferrous Sulfate (Feosol -) 325 mg PO DAILY [facility] Last Admin: 08/23/17 11:20 Dose: 325 mg Folic Acid (Folic Acid -) 1 mg PO DAILY [facility] Last Admin: 08/23/17 11:20 Dose: 1 mg Dextrose/Sodium Chloride (D5-Ns -) 1,000 mls @ 42 mls/hr IV ASDIR [facility] Last Admin: 08/23/17 06:24 Dose: 42 mls/hr Lactobacillus Acidophilus (Bacid -) 1 tab PO DAILY [facility] Last Admin: 08/23/17 11:20 Dose: 1 tab Levothyroxine Sodium (Synthroid -) 75 mcg PO DAILY@0700 [facility] Last Admin: 08/23/17 06:25 Dose: 75 mcg Lorazepam (Ativan Injection -) 0.5 mg IVPUSH TID PRN PRN Reason: ANXIETY Last Admin: 08/21/17 22:09 Dose: 0.5 mg Metronidazole (Flagyl -) 500 mg PO TID [facility] Last Admin: 08/23/17 11:19 Dose: 500 mg Mirtazapine (Remeron -) 15 mg PO HS [facility] Last Admin: 08/22/17 22:41 Dose: 15 mg Nystatin (Nystop Powder -) 1 applic TP DAILY [facility] Last Admin: 08/22/17 10:05 Dose: 1 applic Ranitidine HCl (Zantac -) 150 mg PO DAILY [facility] Last Admin: 08/23/17 11:20 Dose: 150 mg Tamsulosin HCl (Flomax -) 0.4 mg PO DAILY@1730 [facility] Thiamine HCl (Vitamin B1 -) 100 mg PO DAILY [facility] Last Admin: 08/23/17 11:20 Dose: 100 mg Valsartan (Diovan -) 80 mg PO DAILY [facility] Last Admin: 08/23/17 11:19 Dose: 80 mg Zinc Sulfate (Orazinc -) 220 mg PO DAILY [facility] Last Admin: 08/23/17 11:20 Dose: 220 mg - Objective Vital Signs: Vital Signs Temperature 99.4 F 08/23/17 11:00 Pulse Rate 116 H 08/23/17 11:00 Respiratory Rate 18 08/23/17 11:00 Blood Pressure 141/61 08/23/17 11:00 O2 Sat by Pulse Oximetry (%) 97 08/23/17 10:37 Constitutional: Yes: Well Nourished, No Distress, Calm Cardiovascular: Yes: Regular Rate and Rhythm Respiratory: Yes: Regular Musculoskeletal: Yes: WNL Extremities: Yes: WNL Edema: No Peripheral Pulses WNL: Yes Wound/Incision: Yes: Clean/Dry Neurological: Yes: Alert, Oriented, Lethargy Psychiatric: Yes: Alert, Oriented Labs: CBC, BMP 08/23/17 07:50 08/23/17 07:50 INR, PTT INR 2.24 (0.82-1.09) H D 08/12/17 18:00 Problem List - Problems (1) Fever Assessment/Plan: -febrile earlier in AM -off abx -repeat BC -repeat stool culture, O&P -tylenol for fever over 100.0F -to be re-evaluated by ID -repeat labs in AM -CXR -on PO flagyl for diarrhea Code(s): R50.9 - FEVER, UNSPECIFIED Qualifiers: Fever type: unspecified Qualified Code(s): R50.9 - Fever, unspecified; R50.9 - Fever, unspecified (2) Hematuria Assessment/Plan: -+3 urine in UA -seen by Urology -U/S bladder renal negative for hydronephrosis, shows large post voidal residual. 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 her a trial of alpha aric like tamsulosin- would monitor efficacy in 3 days Code(s): R31.9 - HEMATURIA, UNSPECIFIED Qualifiers: Hematuria type: unspecified type Qualified Code(s): R31.9 - Hematuria, unspecified; R31.9 - Hematuria, unspecified (3) Sacral decubitus ulcer, stage II Assessment/Plan: -seen by Vascular -offloading to the area -santyl -wound culture shows MRSA and VRE Code(s): L89.152 - PRESSURE ULCER OF SACRAL REGION, STAGE 2 (4) Systemic inflammatory response syndrome (SIRS) Assessment/Plan: -seen by ID -Tylenol for fever over 100.0F Code(s): R65.10 - SIRS OF NON-INFECTIOUS ORIGIN W/O ACUTE ORGAN DYSFUNCTION (5) A-fib Assessment/Plan: -Chronic -controlled -on Eliquis Code(s): I48.91 - UNSPECIFIED ATRIAL FIBRILLATION Qualifiers: Atrial fibrillation type: paroxysmal Qualified Code(s): I48.0 - Paroxysmal atrial fibrillation; I48.0 - Paroxysmal atrial fibrillation; I48.0 - Paroxysmal atrial fibrillation; I48.0 - Paroxysmal atrial fibrillation (6) Acute and chronic respiratory failure with hypoxia Assessment/Plan: -on mechanical vent -[facility], would give her a trial once stable -seen by Speech therapy for re-evaluation of swallow, swallow is at baseline, no changes needed at this time. Code(s): J96.21 - ACUTE AND CHRONIC RESPIRATORY FAILURE WITH HYPOXIA Assessment/Plan see problem list.
[2017-08-23] MEDS ORDERED: PT OWN MED DRAWER 7, Y5N ONE ×2 (12:05→18:51)
[2017-08-23] MEDS: CHOLESTYRAMINE/ASPARTAME 4 GM PACKET PO SCH (12:39)
[2017-08-23] MEDS: APIXABAN 5 MG TABLET PO SCH ×2 (12:39→23:41)
--- NOTE | 2017-08-23 14:12 | PN ---
Progress Note, Physician Chief Complaint: Events noted Fever 100.8 History of Present Illness: Patient was seen and examined. Awake. Chart was reviewed Denies chest pain or palpitations on mechanical vent via trache Remains febrile - Current Medication List Current Medications: Active Medications Acetaminophen (Tylenol -) 650 mg PO Q6H PRN PRN Reason: FEVER OR PAIN Last Admin: 08/23/17 02:35 Dose: 650 mg Acetaminophen (Tylenol Suppository -) 650 mg [place] Q6H PRN PRN Reason: FEVER OR PAIN Last Admin: 08/20/17 02:20 Dose: 650 mg Albuterol/Ipratropium (Duoneb -) 1 amp NEB Q6H PRN PRN Reason: SHORTNESS OF BREATH Amino Acids (Prosource No Carb Liquid Pkt) 30 ml PO BID@0800,1730 [facility] Last Admin: 08/22/17 18:09 Dose: Not Given Apixaban (Eliquis -) 5 mg PO BID [facility] Last Admin: 08/23/17 12:39 Dose: 5 mg Cholestyramine Resin (Questran Light Packet -) 4 gm PO DAILY [facility] Last Admin: 08/23/17 12:39 Dose: 4 gm Collagenase (Santyl -) 1 applic TP DAILY [facility] Last Admin: 08/22/17 10:02 Dose: 1 applic Diltiazem HCl (Cardizem Cd -) 120 mg PO DAILY [facility] Last Admin: 08/23/17 11:19 Dose: 120 mg Ferrous Sulfate (Feosol -) 325 mg PO DAILY [facility] Last Admin: 08/23/17 11:20 Dose: 325 mg Folic Acid (Folic Acid -) 1 mg PO DAILY [facility] Last Admin: 08/23/17 11:20 Dose: 1 mg Dextrose/Sodium Chloride (D5-Ns -) 1,000 mls @ 42 mls/hr IV ASDIR [facility] Last Admin: 08/23/17 06:24 Dose: 42 mls/hr Lactobacillus Acidophilus (Bacid -) 1 tab PO DAILY [facility] Last Admin: 08/23/17 11:20 Dose: 1 tab Levothyroxine Sodium (Synthroid -) 75 mcg PO DAILY@0700 [facility] Last Admin: 08/23/17 06:25 Dose: 75 mcg Lorazepam (Ativan Injection -) 0.5 mg IVPUSH TID PRN PRN Reason: ANXIETY Last Admin: 08/21/17 22:09 Dose: 0.5 mg Metronidazole (Flagyl -) 500 mg PO TID [facility] Last Admin: 08/23/17 11:19 Dose: 500 mg Mirtazapine (Remeron -) 15 mg PO HS [facility] Last Admin: 08/22/17 22:41 Dose: 15 mg Nystatin (Nystop Powder -) 1 applic TP DAILY [facility] Last Admin: 08/22/17 10:05 Dose: 1 applic Ranitidine HCl (Zantac -) 150 mg PO DAILY [facility] Last Admin: 08/23/17 11:20 Dose: 150 mg Tamsulosin HCl (Flomax -) 0.4 mg PO DAILY@1730 [facility] Thiamine HCl (Vitamin B1 -) 100 mg PO DAILY [facility] Last Admin: 08/23/17 11:20 Dose: 100 mg Valsartan (Diovan -) 80 mg PO DAILY [facility] Last Admin: 08/23/17 11:19 Dose: 80 mg Zinc Sulfate (Orazinc -) 220 mg PO DAILY [facility] Last Admin: 08/23/17 11:20 Dose: 220 mg - Objective Vital Signs: Vital Signs Temperature 99.4 F 08/23/17 11:00 Pulse Rate 112 H 08/23/17 12:36 Respiratory Rate 14 08/23/17 12:36 Blood Pressure 126/64 08/23/17 12:36 O2 Sat by Pulse Oximetry (%) 97 08/23/17 10:37 Cardiovascular: Yes: Regular Rate and Rhythm, S1, S2 Respiratory: Yes: Diminished, Mechanically Ventilated Gastrointestinal: Yes: Normal Bowel Sounds, Soft. No: Tenderness Edema: No Labs: CBC, BMP 08/23/17 07:50 08/23/17 07:50 Problem List - Problems (1) A-fib Code(s): I48.91 - UNSPECIFIED ATRIAL FIBRILLATION Qualifiers: Atrial fibrillation type: paroxysmal Qualified Code(s): I48.0 - Paroxysmal atrial fibrillation; I48.0 - Paroxysmal atrial fibrillation; I48.0 - Paroxysmal atrial fibrillation; I48.0 - Paroxysmal atrial fibrillation (2) Acute and chronic respiratory failure with hypoxia Code(s): J96.21 - ACUTE AND CHRONIC RESPIRATORY FAILURE WITH HYPOXIA (3) Acute on chronic respiratory failure with hypoxia and hypercapnia Code(s): J96.21 - ACUTE AND CHRONIC RESPIRATORY FAILURE WITH HYPOXIA J96.22 - ACUTE AND CHRONIC RESPIRATORY FAILURE WITH HYPERCAPNIA (4) Anemia Code(s): D64.9 - ANEMIA, UNSPECIFIED Qualifiers: Anemia type: unspecified type Qualified Code(s): D64.9 - Anemia, unspecified; D64.9 - Anemia, unspecified (5) COPD (chronic obstructive pulmonary disease) Code(s): J44.9 - CHRONIC OBSTRUCTIVE PULMONARY DISEASE, UNSPECIFIED Qualifiers : COPD type: unspecified COPD Qualified Code(s): J44.9 - Chronic obstructive pulmonary disease, unspecified; J44.9 - Chronic obstructive pulmonary disease, unspecified; J44.9 - Chronic obstructive pulmonary disease, unspecified; J44.9 - Chronic obstructive pulmonary disease, unspecified (6) Diastolic heart failure Code(s): I50.30 - UNSPECIFIED DIASTOLIC (CONGESTIVE) HEART FAILURE Qualifiers : Heart failure chronicity: chronic Qualified Code(s): I50.32 - Chronic diastolic (congestive) heart failure; I50.32 - Chronic diastolic ( congestive) heart failure; I50.32 - Chronic diastolic (congestive) heart failure ; I50.32 - Chronic diastolic (congestive) heart failure (7) Hypothyroid Code(s): E03.9 - HYPOTHYROIDISM, UNSPECIFIED Qualifiers: Hypothyroidism type: unspecified Qualified Code(s): E03.9 - Hypothyroidism, unspecified; E03.9 - Hypothyroidism, unspecified; E03.9 - Hypothyroidism, unspecified (8) Pneumonia Code(s): J18.9 - PNEUMONIA, UNSPECIFIED ORGANISM Qualifiers: Pneumonia type: due to unspecified organism Laterality: left Lung location: lower lobe of lung Qualified Code(s): J18.1 - Lobar pneumonia, unspecified organism; J18.1 - Lobar pneumonia, unspecified organism; J18.1 - Lobar pneumonia, unspecified organism (9) Tracheostomy dependence Code(s): Z93.0 - TRACHEOSTOMY STATUS Assessment/Plan 1. Fever, hematuria suspect UTI, rule out pneumonia with history of multi-drug resistant organisms 2. COPD with acute on chronic hypoxic/hypercapneic respiratory failure post tracheostomy 3. Diastolic LV dysfunction with class I NYHA classification LV congestive heart failure, compensated/euvolemic 4. Paroxysmal Atrial Fibrillation/atrial tachycardia on NOAC, [id number] score of 4 5. HTN 6. Hypothyroidism 7. History of C. Difficile Colitis 8. MARLYN and Hyperkalemia 9. Anemia post transfusion PLAN: 1. Inhaled bronchodilators, O2 to keep SpO2 >90% and GI prophylaxis and continue vent support 2. Continue Cardizem and Valsartan as tolerated 3. Continue Eliquis 5 bid 4. Transfuse to maintain Hgb>8.0, may proceed with PEG placement from cardiovascular stand point - currently still undecided 5. Currently on Flagyl. ID input to follow regarding persistent fever. Further plans are to follow Bert Ivan MD
[2017-08-23] MEDS: AMINO ACIDS/PROTEIN HYDROLYS 30 ML LIQUID.PKT PO SCH ×2 (14:13→18:31)
[2017-08-23] MEDS: COLLAGENASE CLOSTRIDIUM HIST. 30 GRAMS TUBE TP SCH (17:00)
[2017-08-23] MEDS: NYSTATIN POWDER 100,000 UNITS/GM - 15 GM TOPICAL POWDER TP SCH (18:05)
[2017-08-23] MEDS: TAMSULOSIN HCL 0.4 MG CAP.ER.24H (FP) PO SCH (22:50)
[2017-08-23] MEDS: MIRTAZAPINE 15 MG TABLET (FP) PO SCH (23:41)
[2017-08-24] MEDS: ACETAMINOPHEN 325 MG TABLET (FP) PO PRN ×2 (03:38→15:11)
[2017-08-24] MEDS: DEXTROSE 5%-NORMAL SALINE 1,000 ML IV SCH ×2 (03:39→14:03)
[2017-08-24] MEDS: metroNIDAZOLE 250 MG TABLET PO SCH ×3 (06:49→23:19)
[2017-08-24] MEDS: LEVOTHYROXINE NA 75 MCG TABLET (FP) PO SCH (06:50)
[2017-08-24] MEDS: AMINO ACIDS/PROTEIN HYDROLYS 30 ML LIQUID.PKT PO SCH ×2 (09:36→17:45)
--- NOTE | 2017-08-24 11:01 | PN ---
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 CXR (-) Selected Entries 08/22/17 08/22/17 08/23/17 11:50 14:55 02:00 Breakfast 0 Lunch 0 Temperature 103.9 F H 08/23/17 08/23/17 08/23/17 06:00 09:26 09:46 Breakfast 0 Lunch 25% Temperature 99.2 F 100.8 F H 08/23/17 08/23/17 08/23/17 11:00 18:00 22:00 Breakfast Lunch Temperature 99.4 F 102.6 F H 98.9 F 08/24/17 08/24/17 02:00 06:00 Breakfast Lunch Temperature 100.0 F H 98.7 F Laboratory Tests 08/21/17 08/22/17 08:00 06:45 WBC 12.9 H 15.5 H Breakfast tray at bedside at 11 am, untouched. I suspect poor appetite partially related to diarrhea. Only accepting Ensure, small amounts at a time. Consider PMV evaluation to improve upper airway function and communication, and to wean from ventilator. Provide small amounts of ensure throughout the day.
[2017-08-24] MEDS ORDERED: PT OWN MED DRAWER 7, Y5N ONE ×2 (11:39→21:48)
[2017-08-24] MEDS: COLLAGENASE CLOSTRIDIUM HIST. 30 GRAMS TUBE TP SCH (11:57)
--- NOTE | 2017-08-24 12:45 | PN ---
Progress Note (short form) - Note Progress Note: NAD fevers trending down Vital Signs Period Temp Pulse Resp BP Sys/Parra Pulse Ox Last 24 Hr 98.7 F-102.6 F 101-123 12-20 111-125/52-67 99 cor-rrr lungs decreased bs at bases abd soft,nt ext no edema CBC, BMP 08/23/17 07:50 08/23/17 07:50 Microbiology 08/22/17 15:30 Stool Salmonella/Shigella Culture - Preliminary Non Lactose Fermenting Gnb 08/22/17 15:30 Stool Yersinia Culture - Preliminary NO ENTERIC PATHOGENS, 24 HOURS, ON PRIMARY PLATES 08/22/17 15:30 Stool Vibrio Culture - Preliminary NO ENTERIC PATHOGENS, 24 HOURS, ON PRIMARY PLATES 08/22/17 15:30 Stool Escherichia coli 0157 Culture - Preliminary NO ENTERIC PATHOGENS, 24 HOURS, ON PRIMARY PLATES 08/19/17 00:00 Blood - Peripheral Venous Blood Culture - Final NO GROWTH AFTER 5 DAYS INCUBATION 08/19/17 00:00 Blood - Peripheral Venous Blood Culture - Final NO GROWTH AFTER 5 DAYS INCUBATION 08/22/17 13:30 Blood - Peripheral Venous Blood Culture - Preliminary NO GROWTH OBTAINED AFTER 24 HOURS, INCUBATION TO CONTINUE FOR 4 DAYS. 08/22/17 13:30 Blood - Peripheral Venous Blood Culture - Preliminary NO GROWTH OBTAINED AFTER 24 HOURS, INCUBATION TO CONTINUE FOR 4 DAYS. 08/23/17 08:30 Stool Clostridium difficile Antigen (TEDDY) - Final 08/23/17 08:30 Stool Clostridium difficile Toxin Assay - Final Current Medications Acetaminophen (Tylenol -) 650 mg PO Q6H PRN PRN Reason: FEVER OR PAIN Last Admin: 08/24/17 03:38 Dose: 650 mg Acetaminophen (Tylenol Suppository -) 650 mg [place] Q6H PRN PRN Reason: FEVER OR PAIN Last Admin: 08/20/17 02:20 Dose: 650 mg Albuterol/Ipratropium (Duoneb -) 1 amp NEB Q6H PRN PRN Reason: SHORTNESS OF BREATH Amino Acids (Prosource No Carb Liquid Pkt) 30 ml PO BID@0800,1730 [facility] Last Admin: 08/24/17 09:36 Dose: Not Given Apixaban (Eliquis -) 5 mg PO BID [facility] Last Admin: 08/23/17 23:41 Dose: 5 mg Cholestyramine Resin (Questran Light Packet -) 4 gm PO DAILY [facility] Last Admin: 08/23/17 12:39 Dose: 4 gm Collagenase (Santyl -) 1 applic TP DAILY [facility] Last Admin: 08/24/17 11:57 Dose: Not Given Diltiazem HCl (Cardizem Cd -) 120 mg PO DAILY [facility] Last Admin: 08/23/17 11:19 Dose: 120 mg Ferrous Sulfate (Feosol -) 325 mg PO DAILY [facility] Last Admin: 08/23/17 11:20 Dose: 325 mg Folic Acid (Folic Acid -) 1 mg PO DAILY [facility] Last Admin: 08/23/17 11:20 Dose: 1 mg Dextrose/Sodium Chloride (D5-Ns -) 1,000 mls @ 42 mls/hr IV ASDIR [facility] Last Admin: 08/24/17 03:39 Dose: 42 mls/hr Lactobacillus Acidophilus (Bacid -) 1 tab PO DAILY [facility] Last Admin: 08/23/17 11:20 Dose: 1 tab Levothyroxine Sodium (Synthroid -) 75 mcg PO DAILY@0700 [facility] Last Admin: 08/24/17 06:50 Dose: 75 mcg Lorazepam (Ativan Injection -) 0.5 mg IVPUSH TID PRN PRN Reason: ANXIETY Last Admin: 08/21/17 22:09 Dose: 0.5 mg Metronidazole (Flagyl -) 500 mg PO TID [facility] Last Admin: 08/24/17 06:49 Dose: 500 mg Mirtazapine (Remeron -) 15 mg PO HS [facility] Last Admin: 08/23/17 23:41 Dose: 15 mg Nystatin (Nystop Powder -) 1 applic TP DAILY [facility] Last Admin: 08/23/17 18:05 Dose: 1 applic Ranitidine HCl (Zantac -) 150 mg PO DAILY [facility] Last Admin: 08/23/17 11:20 Dose: 150 mg Tamsulosin HCl (Flomax -) 0.4 mg PO DAILY@1730 [facility] Last Admin: 08/23/17 22:50 Dose: Not Given Thiamine HCl (Vitamin B1 -) 100 mg PO DAILY [facility] Last Admin: 08/23/17 11:20 Dose: 100 mg Valsartan (Diovan -) 80 mg PO DAILY [facility] Last Admin: 08/23/17 11:19 Dose: 80 mg Zinc Sulfate (Orazinc -) 220 mg PO DAILY [facility] Last Admin: 08/23/17 11:20 Dose: 220 mg imp/reccd fevers trending down now on flagyl for diarrhea ?positive cdiff antigen anemia s/p transfusion if fevers persist would obtain ct scans of chest/abd pelvis and reculture chronic resp failure- on vent via trach history of VRE rectal colonization-contact isolation Problem List - Problems (1) Fever Code(s): R50.9 - FEVER, UNSPECIFIED Qualifiers: Fever type: unspecified Qualified Code(s): R50.9 - Fever, unspecified; R50.9 - Fever, unspecified (2) UTI (urinary tract infection) Code(s): N39.0 - URINARY TRACT INFECTION, SITE NOT SPECIFIED Qualifiers: Urinary tract infection type: site unspecified Hematuria presence: with hematuria Qualified Code(s): N39.0 - Urinary tract infection, site not specified; N39.0 - Urinary tract infection, site not specified; R31.9 - Hematuria, unspecified; R31.9 - Hematuria, unspecified
[2017-08-24] MEDS: LACTOBACILLUS ACIDOPHILUS 1 EACH TAB (FP) PO SCH ×2 (13:52→15:03)
[2017-08-24] MEDS: ZINC SULFATE 220 MG CAPSULE (FP) PO SCH ×2 (13:53→15:02)
[2017-08-24] MEDS: NYSTATIN POWDER 100,000 UNITS/GM - 15 GM TOPICAL POWDER TP SCH ×2 (13:53→15:00)
[2017-08-24] MEDS: APIXABAN 5 MG TABLET PO SCH ×3 (13:53→23:20)
[2017-08-24] MEDS: FOLIC ACID 1 MG TABLET (FP) PO SCH ×2 (13:53→15:03)
[2017-08-24] MEDS: VALSARTAN 80 MG TABLET (UD) PO SCH ×2 (13:53→15:02)
[2017-08-24] MEDS: FERROUS SO4 325 MG TABLET (FP) PO SCH ×2 (13:53→15:02)
[2017-08-24] MEDS: CHOLESTYRAMINE/ASPARTAME 4 GM PACKET PO SCH (13:54)
[2017-08-24] MEDS: THIAMINE HCL 100 MG TABLET (FP) PO SCH ×2 (13:57→15:01)
[2017-08-24] MEDS: RANITIDINE HCL 150 MG TABLET (FP) PO SCH ×2 (14:02→15:02)
--- NOTE | 2017-08-24 15:00 | PN ---
Progress Note, Physician History of Present Illness: Tolerating small amounts of Ensure, plan for PMV trial s tolerated, hesitant for PEG. - Current Medication List Current Medications: Active Medications Acetaminophen (Tylenol -) 650 mg PO Q6H PRN PRN Reason: FEVER OR PAIN Last Admin: 08/24/17 03:38 Dose: 650 mg Acetaminophen (Tylenol Suppository -) 650 mg IN Q6H PRN PRN Reason: FEVER OR PAIN Last Admin: 08/20/17 02:20 Dose: 650 mg Albuterol/Ipratropium (Duoneb -) 1 amp NEB Q6H PRN PRN Reason: SHORTNESS OF BREATH Amino Acids (Prosource No Carb Liquid Pkt) 30 ml PO BID@0800,1730 [facility] Last Admin: 08/24/17 09:36 Dose: Not Given Apixaban (Eliquis -) 5 mg PO BID [facility] Last Admin: 08/24/17 13:53 Dose: Not Given Cholestyramine Resin (Questran Light Packet -) 4 gm PO DAILY [facility] Last Admin: 08/24/17 13:54 Dose: Not Given Collagenase (Santyl -) 1 applic TP DAILY [facility] Last Admin: 08/24/17 11:57 Dose: Not Given Diltiazem HCl (Cardizem Cd -) 120 mg PO DAILY [facility] Last Admin: 08/24/17 13:53 Dose: Not Given Ferrous Sulfate (Feosol -) 325 mg PO DAILY [facility] Last Admin: 08/24/17 13:53 Dose: Not Given Folic Acid (Folic Acid -) 1 mg PO DAILY [facility] Last Admin: 08/24/17 13:53 Dose: Not Given Dextrose/Sodium Chloride (D5-Ns -) 1,000 mls @ 42 mls/hr IV ASDIR [facility] Last Admin: 08/24/17 14:03 Dose: Not Given Lactobacillus Acidophilus (Bacid -) 1 tab PO DAILY [facility] Last Admin: 08/24/17 13:52 Dose: Not Given Levothyroxine Sodium (Synthroid -) 75 mcg PO DAILY@0700 [facility] Last Admin: 08/24/17 06:50 Dose: 75 mcg Lorazepam (Ativan Injection -) 0.5 mg IVPUSH TID PRN PRN Reason: ANXIETY Last Admin: 08/21/17 22:09 Dose: 0.5 mg Metronidazole (Flagyl -) 500 mg PO TID [facility] Last Admin: 08/24/17 06:49 Dose: 500 mg Mirtazapine (Remeron -) 15 mg PO HS [facility] Last Admin: 08/23/17 23:41 Dose: 15 mg Nystatin (Nystop Powder -) 1 applic TP DAILY [facility] Last Admin: 08/24/17 13:53 Dose: Not Given Ranitidine HCl (Zantac -) 150 mg PO DAILY [facility] Last Admin: 08/24/17 14:02 Dose: Not Given Tamsulosin HCl (Flomax -) 0.4 mg PO DAILY@1730 [facility] Last Admin: 08/23/17 22:50 Dose: Not Given Thiamine HCl (Vitamin B1 -) 100 mg PO DAILY [facility] Last Admin: 08/24/17 13:57 Dose: Not Given Valsartan (Diovan -) 80 mg PO DAILY [facility] Last Admin: 08/24/17 13:53 Dose: Not Given Zinc Sulfate (Orazinc -) 220 mg PO DAILY [facility] Last Admin: 08/24/17 13:53 Dose: Not Given - Objective Vital Signs: Vital Signs Temperature 98.8 F 08/24/17 10:00 Pulse Rate 97 H 08/24/17 10:20 Respiratory Rate 16 08/24/17 14:35 Blood Pressure 116/67 08/24/17 10:00 O2 Sat by Pulse Oximetry (%) 98 08/24/17 10:20 Cardiovascular: Yes: Regular Rate and Rhythm Respiratory: Yes: Intubated, Mechanically Ventilated, Rhonchi Gastrointestinal: Yes: Soft, Hypoactive Bowel Sounds Edema: No Labs: CBC, BMP 08/23/17 07:50 08/23/17 07:50 INR, PTT INR 2.24 (0.82-1.09) H D 08/12/17 18:00 - ....Imaging Chest X-ray: Report Reviewed (COPD) Problem List - Problems (1) Fever Code(s): R50.9 - FEVER, UNSPECIFIED Qualifiers: Fever type: unspecified Qualified Code(s): R50.9 - Fever, unspecified; R50.9 - Fever, unspecified (2) Hematuria Code(s): R31.9 - HEMATURIA, UNSPECIFIED Qualifiers: Hematuria type: unspecified type Qualified Code(s): R31.9 - Hematuria, unspecified; R31.9 - Hematuria, unspecified (3) Acute on chronic respiratory failure with hypoxia and hypercapnia Code(s): J96.21 - ACUTE AND CHRONIC RESPIRATORY FAILURE WITH HYPOXIA J96.22 - ACUTE AND CHRONIC RESPIRATORY FAILURE WITH HYPERCAPNIA (4) COPD (chronic obstructive pulmonary disease) Code(s): J44.9 - CHRONIC OBSTRUCTIVE PULMONARY DISEASE, UNSPECIFIED Qualifiers : COPD type: unspecified COPD Qualified Code(s): J44.9 - Chronic obstructive pulmonary disease, unspecified; J44.9 - Chronic obstructive pulmonary disease, unspecified; J44.9 - Chronic obstructive pulmonary disease, unspecified; J44.9 - Chronic obstructive pulmonary disease, unspecified (5) Diastolic heart failure Code(s): I50.30 - UNSPECIFIED DIASTOLIC (CONGESTIVE) HEART FAILURE Qualifiers : Heart failure chronicity: chronic Qualified Code(s): I50.32 - Chronic diastolic (congestive) heart failure; I50.32 - Chronic diastolic ( congestive) heart failure; I50.32 - Chronic diastolic (congestive) heart failure ; I50.32 - Chronic diastolic (congestive) heart failure (6) Hypothyroid Code(s): E03.9 - HYPOTHYROIDISM, UNSPECIFIED Qualifiers: Hypothyroidism type: unspecified Qualified Code(s): E03.9 - Hypothyroidism, unspecified; E03.9 - Hypothyroidism, unspecified; E03.9 - Hypothyroidism, unspecified (7) Tracheostomy dependence Code(s): Z93.0 - TRACHEOSTOMY STATUS (8) UTI (urinary tract infection) Code(s): N39.0 - URINARY TRACT INFECTION, SITE NOT SPECIFIED Qualifiers: Urinary tract infection type: site unspecified Hematuria presence: with hematuria Qualified Code(s): N39.0 - Urinary tract infection, site not specified; N39.0 - Urinary tract infection, site not specified; R31.9 - Hematuria, unspecified; R31.9 - Hematuria, unspecified (9) A-fib Code(s): I48.91 - UNSPECIFIED ATRIAL FIBRILLATION Qualifiers: Atrial fibrillation type: paroxysmal Qualified Code(s): I48.0 - Paroxysmal atrial fibrillation; I48.0 - Paroxysmal atrial fibrillation; I48.0 - Paroxysmal atrial fibrillation; I48.0 - Paroxysmal atrial fibrillation (10) Anticoagulant long-term use Code(s): Z79.01 - ALF (CURRENT) USE OF ANTICOAGULANTS Assessment/Plan Echo 09/09/2015: nl LV/EF, nl RV, mild MR 1. Fever, hematuria suspect UTI, + cdiff Ag with history of multi-drug resistant organisms 2. COPD with acute on chronic hypoxic/hypercapneic respiratory failure post tracheostomy 3. Diastolic LV dysfunction with class I NYHA classification LV congestive heart failure, compensated/euvolemic 4. Paroxysmal Atrial Fibrillation/atrial tachycardia on NOAC, [id number] score of 4 5. HTN 6. Hypothyroidism 7. History of C. Difficile Colitis 8. MARLYN and Hyperkalemia 9. 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 Inhaled bronchodilators, O2 to keep SpO2 >90% and GI prophylaxis and continue vent support 2. Continue Cardizem CD 120 qd and Valsartan 80 qd as tolerated 3. Continue Eliquis 5 bid 4. Transfuse to maintain Hgb>8.0 5. Currently on course of Flagyl.
--- NOTE | 2017-08-24 15:54 | PN ---
Progress Note (short form) - Note Progress Note: PULMONARY FEBRILE TODAY 101.2 SPEAKING AROUND TRACH PALE/ANICTERIC DIMINISHED WITH POOR INSPIRATORY SOUNDS/LEFT ANTERIOR WHEEZE S1S2 IRREGULAR BS+ NO EDEMA LABS/MEDS/NOTES/IMAGES/VENT SETTING/ABG REVIEWED REFUSED MEDS THIS AM IMP ACUTE ON CHRONIC HYPOXEMIC/HYPERCAPNEIC RESPIRATORY FAILURE FEVER ANEMIA COPD AFIB HEMATURIA DIASTOLIC HF PLAN CONTINUE CURRENT VENT SETTINGS ? PEG PLACEMENT/POOR PO INTAKE INHALED BRONCHODILATORS NORMAL TRANSFUSION THRESHOLDS ANTIBIOTICS PER ID CXR TODAY AGREE THAT THE NEED FOR RE-IMAGING AND RE-CULTURE IF FEVERS PERSIST Rosy BETANCOURT MD
[2017-08-24] MEDS: TAMSULOSIN HCL 0.4 MG CAP.ER.24H (FP) PO SCH (17:45)
[2017-08-24] MEDS: ALBUTEROL SO4 2.5/IPRATROPIUM 0.5 INH SOL 3 ML VIAL.NEB. NEB SCH (18:00)
--- NOTE | 2017-08-24 18:01 | PN ---
Progress Note, Physician Chief Complaint: UTI, Fever History of Present Illness: NAD, on mech vent lethargic today was febrile earlier in AM poor appetite diarrhea off IV abx Wbc increased placed on PO flagyl cdiff resent- positive for antigen Stool culture positive for non lactose fermenting gnb - Current Medication List Current Medications: Active Medications Acetaminophen (Tylenol -) 650 mg PO Q6H PRN PRN Reason: FEVER OR PAIN Last Admin: 08/24/17 15:11 Dose: 650 mg Acetaminophen (Tylenol Suppository -) 650 mg RI Q6H PRN PRN Reason: FEVER OR PAIN Last Admin: 08/20/17 02:20 Dose: 650 mg Albuterol/Ipratropium (Duoneb -) 1 amp NEB QIDR [facility] Amino Acids (Prosource No Carb Liquid Pkt) 30 ml PO BID@0800,1730 [facility] Last Admin: 08/24/17 17:45 Dose: 30 ml Apixaban (Eliquis -) 5 mg PO BID [facility] Last Admin: 08/24/17 15:02 Dose: 5 mg Cholestyramine Resin (Questran Light Packet -) 4 gm PO DAILY [facility] Last Admin: 08/24/17 13:54 Dose: Not Given Collagenase (Santyl -) 1 applic TP DAILY [facility] Last Admin: 08/24/17 11:57 Dose: Not Given Diltiazem HCl (Cardizem Cd -) 120 mg PO DAILY [facility] Last Admin: 08/24/17 15:02 Dose: 120 mg Ferrous Sulfate (Feosol -) 325 mg PO DAILY [facility] Last Admin: 08/24/17 15:02 Dose: 325 mg Folic Acid (Folic Acid -) 1 mg PO DAILY [facility] Last Admin: 08/24/17 15:03 Dose: 1 mg Dextrose/Sodium Chloride (D5-Ns -) 1,000 mls @ 42 mls/hr IV ASDIR [facility] Last Admin: 08/24/17 14:03 Dose: Not Given Lactobacillus Acidophilus (Bacid -) 1 tab PO DAILY [facility] Last Admin: 08/24/17 15:03 Dose: 1 tab Levothyroxine Sodium (Synthroid -) 75 mcg PO DAILY@0700 [facility] Last Admin: 08/24/17 06:50 Dose: 75 mcg Lorazepam (Ativan Injection -) 0.5 mg IVPUSH TID PRN PRN Reason: ANXIETY Last Admin: 08/21/17 22:09 Dose: 0.5 mg Metronidazole (Flagyl -) 500 mg PO TID [facility] Last Admin: 08/24/17 14:59 Dose: 500 mg Mirtazapine (Remeron -) 15 mg PO HS [facility] Last Admin: 08/23/17 23:41 Dose: 15 mg Nystatin (Nystop Powder -) 1 applic TP DAILY [facility] Last Admin: 08/24/17 15:00 Dose: 1 applic Ranitidine HCl (Zantac -) 150 mg PO DAILY [facility] Last Admin: 08/24/17 15:02 Dose: 150 mg Tamsulosin HCl (Flomax -) 0.4 mg PO DAILY@1730 [facility] Last Admin: 08/24/17 17:45 Dose: 0.4 mg Thiamine HCl (Vitamin B1 -) 100 mg PO DAILY [facility] Last Admin: 08/24/17 15:01 Dose: 100 mg Valsartan (Diovan -) 80 mg PO DAILY [facility] Last Admin: 08/24/17 15:02 Dose: 80 mg Zinc Sulfate (Orazinc -) 220 mg PO DAILY [facility] Last Admin: 08/24/17 15:02 Dose: 220 mg - Objective Vital Signs: Vital Signs Temperature 101.2 F H 08/24/17 14:54 Pulse Rate 118 H 08/24/17 14:54 Respiratory Rate 17 08/24/17 14:54 Blood Pressure 145/71 08/24/17 14:54 O2 Sat by Pulse Oximetry (%) 98 08/24/17 10:20 Constitutional: Yes: Well Nourished, No Distress, Calm Cardiovascular: Yes: Regular Rate and Rhythm Respiratory: Yes: Regular Musculoskeletal: Yes: WNL Extremities: Yes: WNL Edema: No Peripheral Pulses WNL: Yes Neurological: Yes: Alert, Oriented Psychiatric: Yes: Alert, Oriented Labs: CBC, BMP 08/23/17 07:50 08/23/17 07:50 INR, PTT INR 2.24 (0.82-1.09) H D 08/12/17 18:00 Problem List - Problems (1) Fever Assessment/Plan: -febrile this afternoon -off IV abx -repeat BC -repeat stool culture, O&P -tylenol for fever over 100.0F -re-evaluated by ID -repeat labs in AM -CXR report pendin -on PO flagyl for diarrhea -CT abd/pelvis ordered Code(s): R50.9 - FEVER, UNSPECIFIED Qualifiers: Fever type: unspecified Qualified Code(s): R50.9 - Fever, unspecified; R50.9 - Fever, unspecified (2) Hematuria Assessment/Plan: -+3 urine in UA -seen by Urology -U/S bladder renal negative for hydronephrosis, shows large post voidal residual. 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 her a trial of alpha aric like tamsulosin- would monitor efficacy in 3 days Code(s): R31.9 - HEMATURIA, UNSPECIFIED Qualifiers: Hematuria type: unspecified type Qualified Code(s): R31.9 - Hematuria, unspecified; R31.9 - Hematuria, unspecified (3) Sacral decubitus ulcer, stage II Assessment/Plan: -seen by Vascular -offloading to the area -santjúnior -wound culture shows MRSA and VRE Code(s): L89.152 - PRESSURE ULCER OF SACRAL REGION, STAGE 2 (4) Systemic inflammatory response syndrome (SIRS) Assessment/Plan: -seen by ID -Tylenol for fever over 100.0F -stool culture positive: Microbiology 08/22/17 13:30 Blood Culture - Preliminary Blood - Peripheral Venous NO GROWTH OBTAINED AFTER 48 HOURS, INCUBATION TO CONTINUE FOR 3 DAYS. 08/22/17 13:30 Blood Culture - Preliminary Blood - Peripheral Venous NO GROWTH OBTAINED AFTER 48 HOURS, INCUBATION TO CONTINUE FOR 3 DAYS. 08/22/17 15:30 Salmonella/Shigella Culture - Preliminary Stool Non Lactose Fermenting Gnb Yersinia Culture - Preliminary NO ENTERIC PATHOGENS, 24 HOURS, ON PRIMARY PLATES Vibrio Culture - Preliminary NO ENTERIC PATHOGENS, 24 HOURS, ON PRIMARY PLATES Escherichia coli 0157 Culture - Preliminary NO ENTERIC PATHOGENS, 24 HOURS, ON PRIMARY PLATES 08/19/17 00:00 Blood Culture - Final Blood - Peripheral Venous NO GROWTH AFTER 5 DAYS INCUBATION 08/19/17 00:00 Blood Culture - Final Blood - Peripheral Venous NO GROWTH AFTER 5 DAYS INCUBATION Code(s): R65.10 - SIRS OF NON-INFECTIOUS ORIGIN W/O ACUTE ORGAN DYSFUNCTION (5) A-fib Assessment/Plan: -Chronic -controlled -on Eliquis Code(s): I48.91 - UNSPECIFIED ATRIAL FIBRILLATION Qualifiers: Atrial fibrillation type: paroxysmal Qualified Code(s): I48.0 - Paroxysmal atrial fibrillation; I48.0 - Paroxysmal atrial fibrillation; I48.0 - Paroxysmal atrial fibrillation; I48.0 - Paroxysmal atrial fibrillation (6) Acute and chronic respiratory failure with hypoxia Assessment/Plan: -on mechanical vent -[facility], would give her a trial once stable -seen by Speech therapy for re-evaluation of swallow, swallow is at baseline, no changes needed at this time. Code(s): J96.21 - ACUTE AND CHRONIC RESPIRATORY FAILURE WITH HYPOXIA Assessment/Plan see problem list.
[2017-08-24] MEDS ORDERED: LORazepam 0.5 MG TABLET PO PRN (20:02)
[2017-08-24] MEDS: MAGNESIUM OXIDE 400 MG TABLET (FP) PO SCH (23:20)
[2017-08-24] MEDS: MIRTAZAPINE 15 MG TABLET (FP) PO SCH (23:20)
[2017-08-25] MEDS: ALBUTEROL SO4 2.5/IPRATROPIUM 0.5 INH SOL 3 ML VIAL.NEB. NEB SCH ×5 (00:05→23:30)
[2017-08-25] MEDS: ACETAMINOPHEN 325 MG TABLET (FP) PO PRN ×2 (02:10→14:55)
[2017-08-25] MEDS: DEXTROSE 5%-NORMAL SALINE 1,000 ML IV SCH ×2 (02:45→12:45)
[2017-08-25] MEDS: metroNIDAZOLE 250 MG TABLET PO SCH ×3 (06:23→22:23)
[2017-08-25] MEDS: LEVOTHYROXINE NA 75 MCG TABLET (FP) PO SCH (06:23)
[2017-08-25 09:00] LABS: BASOPHIL 1.2 % (0-2.0); EOSINOPHIL 1.4 % (0-4.5); MCH 28.9 pg (25.7-33.7); MCHC 33.1 g/dl (32.0-36.0); MEAN CELL VOLUME 87.4 fl (80-96); MEAN PLT VOLUME 8.1 fl (7.5-11.1); PLATELET COUNT 362 K/MM3 (134-434); RDW 16.1 % (11.6-15.6); WHITE BLOOD COUNT 11.9 K/mm3 (4.0-10.0)
[2017-08-25] MEDS: AMINO ACIDS/PROTEIN HYDROLYS 30 ML LIQUID.PKT PO SCH ×2 (09:00→18:19)
[2017-08-25 09:40] LABS: ALBUMIN 1.8 g/dl (3.4-5.0); ALK PHOS 94 U/L (45-117); ANION GAP 9 (8-16); BILIRUBIN,TOTAL 0.4 mg/dL (0.2-1.0); CALCIUM 7.8 mg/dL (8.5-10.1); CO2 25 mmol/L (21-32); CREATININE 0.3 mg/dL (0.55-1.02); GLUCOSE,RANDOM 105 mg/dL (74-106); SGOT/AST 8 U/L (15-37); SGPT/ALT 7 U/L (12-78); TOT PROT 4.8 g/dl (6.4-8.2)
--- NOTE | 2017-08-25 10:27 | PN ---
Progress Note, Physician Chief Complaint: patient noted to have fever of 103.1 earlier today awaiting to get ct scan of chest,abd/pelvis stool postive for c diff antigen stool culture positive as well - Current Medication List Current Medications: Active Medications Acetaminophen (Tylenol -) 650 mg PO Q6H PRN PRN Reason: FEVER OR PAIN Last Admin: 08/25/17 02:10 Dose: 650 mg Acetaminophen (Tylenol Suppository -) 650 mg MS Q6H PRN PRN Reason: FEVER OR PAIN Last Admin: 08/20/17 02:20 Dose: 650 mg Albuterol/Ipratropium (Duoneb -) 1 amp NEB QIDR [facility] Last Admin: 08/25/17 06:15 Dose: 1 amp Amino Acids (Prosource No Carb Liquid Pkt) 30 ml PO BID@0800,1730 [facility] Last Admin: 08/25/17 09:00 Dose: Not Given Apixaban (Eliquis -) 5 mg PO BID [facility] Last Admin: 08/24/17 23:20 Dose: 5 mg Cholestyramine Resin (Questran Light Packet -) 4 gm PO DAILY [facility] Last Admin: 08/24/17 13:54 Dose: Not Given Collagenase (Santyl -) 1 applic TP DAILY [facility] Last Admin: 08/24/17 11:57 Dose: Not Given Diltiazem HCl (Cardizem Cd -) 120 mg PO DAILY [facility] Last Admin: 08/24/17 15:02 Dose: 120 mg Ferrous Sulfate (Feosol -) 325 mg PO DAILY [facility] Last Admin: 08/24/17 15:02 Dose: 325 mg Folic Acid (Folic Acid -) 1 mg PO DAILY [facility] Last Admin: 08/24/17 15:03 Dose: 1 mg Dextrose/Sodium Chloride (D5-Ns -) 1,000 mls @ 42 mls/hr IV ASDIR [facility] Last Admin: 08/25/17 02:45 Dose: 42 mls/hr Lactobacillus Acidophilus (Bacid -) 1 tab PO DAILY [facility] Last Admin: 08/24/17 15:03 Dose: 1 tab Levothyroxine Sodium (Synthroid -) 75 mcg PO DAILY@0700 [facility] Last Admin: 08/25/17 06:23 Dose: 75 mcg Lorazepam (Ativan -) 0.5 mg PO Q8H PRN PRN Reason: ANXIETY Magnesium Oxide (Mag-Ox -) 400 mg PO BID [facility] Last Admin: 08/24/17 23:20 Dose: 400 mg Metronidazole (Flagyl -) 500 mg PO TID [facility] Last Admin: 08/25/17 06:23 Dose: 500 mg Mirtazapine (Remeron -) 15 mg PO HS [facility] Last Admin: 08/24/17 23:20 Dose: 15 mg Nystatin (Nystop Powder -) 1 applic TP DAILY [facility] Last Admin: 08/24/17 15:00 Dose: 1 applic Potassium Chloride (K-Dur -) 40 meq PO ONCE ONE Stop: 08/25/17 10:20 Ranitidine HCl (Zantac -) 150 mg PO DAILY [facility] Last Admin: 08/24/17 15:02 Dose: 150 mg Tamsulosin HCl (Flomax -) 0.4 mg PO DAILY@1730 [facility] Last Admin: 08/24/17 17:45 Dose: 0.4 mg Thiamine HCl (Vitamin B1 -) 100 mg PO DAILY [facility] Last Admin: 08/24/17 15:01 Dose: 100 mg Valsartan (Diovan -) 80 mg PO DAILY [facility] Last Admin: 08/24/17 15:02 Dose: 80 mg Zinc Sulfate (Orazinc -) 220 mg PO DAILY [facility] Last Admin: 08/24/17 15:02 Dose: 220 mg - Objective Vital Signs: Vital Signs Temperature 99.3 F 08/25/17 06:00 Pulse Rate 101 H 08/25/17 06:00 Respiratory Rate 14 08/25/17 10:10 Blood Pressure 106/44 08/25/17 06:00 O2 Sat by Pulse Oximetry (%) 99 08/24/17 21:00 Constitutional: Yes: Calm, Thin HENT: Yes: Other (traqch) Cardiovascular: Yes: Pulse Irregular, S1, S2 Respiratory: Yes: Mechanically Ventilated, Rhonchi, Other (poor inspiratory effort) Gastrointestinal: Yes: Normal Bowel Sounds, Soft Edema: No Labs: CBC, BMP 08/25/17 08:35 08/25/17 08:35 INR, PTT INR 2.24 (0.82-1.09) H D 08/12/17 18:00 Problem List - Problems (1) Fever Assessment/Plan: ct chest/abdomen and pelvis pending h/o VRE rectal colonization- contact ID on board [facility] blood culture Code(s): R50.9 - FEVER, UNSPECIFIED Qualifiers: Fever type: unspecified Qualified Code(s): R50.9 - Fever, unspecified; R50.9 - Fever, unspecified (2) A-fib Assessment/Plan: cardizem for rate control eliquis cardio Code(s): I48.91 - UNSPECIFIED ATRIAL FIBRILLATION Qualifiers: Atrial fibrillation type: paroxysmal Qualified Code(s): I48.0 - Paroxysmal atrial fibrillation; I48.0 - Paroxysmal atrial fibrillation; I48.0 - Paroxysmal atrial fibrillation; I48.0 - Paroxysmal atrial fibrillation (3) Acute on chronic respiratory failure with hypoxia and hypercapnia Assessment/Plan: vent support bronchodilators chest ct for recurrent fever Code(s): J96.21 - ACUTE AND CHRONIC RESPIRATORY FAILURE WITH HYPOXIA J96.22 - ACUTE AND CHRONIC RESPIRATORY FAILURE WITH HYPERCAPNIA (4) Diastolic heart failure Assessment/Plan: sequestran,diovan ranexa diovan dose to 80 mg Code(s): I50.30 - UNSPECIFIED DIASTOLIC (CONGESTIVE) HEART FAILURE Qualifiers : Heart failure chronicity: chronic Qualified Code(s): I50.32 - Chronic diastolic (congestive) heart failure; I50.32 - Chronic diastolic ( congestive) heart failure; I50.32 - Chronic diastolic (congestive) heart failure ; I50.32 - Chronic diastolic (congestive) heart failure (5) Anemia Assessment/Plan: stable h/h s/p prbc ferrous sulfate Code(s): D64.9 - ANEMIA, UNSPECIFIED Qualifiers: Anemia type: unspecified type Qualified Code(s): D64.9 - Anemia, unspecified; D64.9 - Anemia, unspecified (6) Hematuria Assessment/Plan: appreciate urology consult bladder ultrasound shows large residual, no hydronephrosis started on flomax Code(s): R31.9 - HEMATURIA, UNSPECIFIED Qualifiers: Hematuria type: unspecified type Qualified Code(s): R31.9 - Hematuria, unspecified; R31.9 - Hematuria, unspecified (7) Diarrhea Assessment/Plan: Microbiology 08/23/17 08:30 Stool Clostridium difficile Antigen (TEDDY) - Final 08/23/17 08:30 Stool Clostridium difficile Toxin Assay - Final 07/19/17 21:00 Sputum - Endotrachea Suction/Ventilator Gram Stain - Final 07/19/17 21:00 Sputum - Endotrachea Suction/Ventilator Sputum Culture - Final Beta Hem Streptococcus Group G Providencia Stuartii Diphtheroid/Corynebacterium on flagyl Code(s): R19.7 - DIARRHEA, UNSPECIFIED Qualifiers: Diarrhea type: unspecified type Qualified Code(s): R19.7 - Diarrhea , unspecified; R19.7 - Diarrhea, unspecified (8) Hypokalemia due to loss of potassium Assessment/Plan: repleted check Magnesium as well Code(s): E87.6 - HYPOKALEMIA (9) Acute and chronic respiratory failure with hypoxia Code(s): J96.21 - ACUTE AND CHRONIC RESPIRATORY FAILURE WITH HYPOXIA (10) Decrease in appetite Assessment/Plan: appreicate GI consult currently has fever once afebrile can proceed with Jtube placement if family agrees Code(s): R63.0 - ANOREXIA (11) Hypothyroid Assessment/Plan: check TSH on synthroid Code(s): E03.9 - HYPOTHYROIDISM, UNSPECIFIED Qualifiers: Hypothyroidism type: unspecified Qualified Code(s): E03.9 - Hypothyroidism, unspecified; E03.9 - Hypothyroidism, unspecified; E03.9 - Hypothyroidism, unspecified
--- NOTE | 2017-08-25 11:02 | PN ---
Progress Note, Physician History of Present Illness: Fever spike earlier today, plan for CT scan r/o occult abscess. - Current Medication List Current Medications: Active Medications Acetaminophen (Tylenol -) 650 mg PO Q6H PRN PRN Reason: FEVER OR PAIN Last Admin: 08/25/17 02:10 Dose: 650 mg Acetaminophen (Tylenol Suppository -) 650 mg HI Q6H PRN PRN Reason: FEVER OR PAIN Last Admin: 08/20/17 02:20 Dose: 650 mg Albuterol/Ipratropium (Duoneb -) 1 amp NEB QIDR [facility] Last Admin: 08/25/17 06:15 Dose: 1 amp Amino Acids (Prosource No Carb Liquid Pkt) 30 ml PO BID@0800,1730 [facility] Last Admin: 08/25/17 09:00 Dose: Not Given Apixaban (Eliquis -) 5 mg PO BID [facility] Last Admin: 08/24/17 23:20 Dose: 5 mg Cholestyramine Resin (Questran Light Packet -) 4 gm PO DAILY [facility] Last Admin: 08/24/17 13:54 Dose: Not Given Collagenase (Santyl -) 1 applic TP DAILY [facility] Last Admin: 08/24/17 11:57 Dose: Not Given Diltiazem HCl (Cardizem Cd -) 120 mg PO DAILY [facility] Last Admin: 08/24/17 15:02 Dose: 120 mg Ferrous Sulfate (Feosol -) 325 mg PO DAILY [facility] Last Admin: 08/24/17 15:02 Dose: 325 mg Folic Acid (Folic Acid -) 1 mg PO DAILY [facility] Last Admin: 08/24/17 15:03 Dose: 1 mg Dextrose/Sodium Chloride (D5-Ns -) 1,000 mls @ 42 mls/hr IV ASDIR [facility] Last Admin: 08/25/17 02:45 Dose: 42 mls/hr Lactobacillus Acidophilus (Bacid -) 1 tab PO DAILY [facility] Last Admin: 08/24/17 15:03 Dose: 1 tab Levothyroxine Sodium (Synthroid -) 75 mcg PO DAILY@0700 [facility] Last Admin: 08/25/17 06:23 Dose: 75 mcg Lorazepam (Ativan -) 0.5 mg PO Q8H PRN PRN Reason: ANXIETY Magnesium Oxide (Mag-Ox -) 400 mg PO BID [facility] Last Admin: 10/18/17 23:20 Dose: 400 mg Metronidazole (Flagyl -) 500 mg PO TID [facility] Last Admin: 08/25/17 06:23 Dose: 500 mg Mirtazapine (Remeron -) 15 mg PO HS [facility] Last Admin: 08/24/17 23:20 Dose: 15 mg Nystatin (Nystop Powder -) 1 applic TP DAILY [facility] Last Admin: 08/24/17 15:00 Dose: 1 applic Potassium Chloride (K-Dur -) 40 meq PO ONCE ONE Stop: 08/25/17 10:20 Ranitidine HCl (Zantac -) 150 mg PO DAILY [facility] Last Admin: 08/24/17 15:02 Dose: 150 mg Tamsulosin HCl (Flomax -) 0.4 mg PO DAILY@1730 [facility] Last Admin: 08/24/17 17:45 Dose: 0.4 mg Thiamine HCl (Vitamin B1 -) 100 mg PO DAILY [facility] Last Admin: 08/24/17 15:01 Dose: 100 mg Valsartan (Diovan -) 80 mg PO DAILY [facility] Last Admin: 08/24/17 15:02 Dose: 80 mg Zinc Sulfate (Orazinc -) 220 mg PO DAILY [facility] Last Admin: 08/24/17 15:02 Dose: 220 mg - Objective Vital Signs: Vital Signs Temperature 100.3 F H 08/25/17 10:30 Pulse Rate 109 H 08/25/17 10:30 Respiratory Rate 15 08/25/17 10:30 Blood Pressure 108/56 08/25/17 10:30 O2 Sat by Pulse Oximetry (%) 99 08/24/17 21:00 Cardiovascular: Yes: Regular Rate and Rhythm Respiratory: Yes: Mechanically Ventilated, Rhonchi Gastrointestinal: Yes: Soft, Hypoactive Bowel Sounds Edema: No Labs: CBC, BMP 08/25/17 08:35 08/25/17 08:35 INR, PTT INR 2.24 (0.82-1.09) H D 08/12/17 18:00 - ....Imaging Chest X-ray: Report Reviewed (ATX right base) Problem List - Problems (1) Fever Code(s): R50.9 - FEVER, UNSPECIFIED Qualifiers: Fever type: unspecified Qualified Code(s): R50.9 - Fever, unspecified; R50.9 - Fever, unspecified (2) Hematuria Code(s): R31.9 - HEMATURIA, UNSPECIFIED Qualifiers: Hematuria type: unspecified type Qualified Code(s): R31.9 - Hematuria, unspecified; R31.9 - Hematuria, unspecified (3) Acute on chronic respiratory failure with hypoxia and hypercapnia Code(s): J96.21 - ACUTE AND CHRONIC RESPIRATORY FAILURE WITH HYPOXIA J96.22 - ACUTE AND CHRONIC RESPIRATORY FAILURE WITH HYPERCAPNIA (4) COPD (chronic obstructive pulmonary disease) Code(s): J44.9 - CHRONIC OBSTRUCTIVE PULMONARY DISEASE, UNSPECIFIED Qualifiers : COPD type: unspecified COPD Qualified Code(s): J44.9 - Chronic obstructive pulmonary disease, unspecified; J44.9 - Chronic obstructive pulmonary disease, unspecified; J44.9 - Chronic obstructive pulmonary disease, unspecified; J44.9 - Chronic obstructive pulmonary disease, unspecified (5) Diastolic heart failure Code(s): I50.30 - UNSPECIFIED DIASTOLIC (CONGESTIVE) HEART FAILURE Qualifiers : Heart failure chronicity: chronic Qualified Code(s): I50.32 - Chronic diastolic (congestive) heart failure; I50.32 - Chronic diastolic ( congestive) heart failure; I50.32 - Chronic diastolic (congestive) heart failure ; I50.32 - Chronic diastolic (congestive) heart failure (6) Hypothyroid Code(s): E03.9 - HYPOTHYROIDISM, UNSPECIFIED Qualifiers: Hypothyroidism type: unspecified Qualified Code(s): E03.9 - Hypothyroidism, unspecified; E03.9 - Hypothyroidism, unspecified; E03.9 - Hypothyroidism, unspecified (7) Tracheostomy dependence Code(s): Z93.0 - TRACHEOSTOMY STATUS (8) UTI (urinary tract infection) Code(s): N39.0 - URINARY TRACT INFECTION, SITE NOT SPECIFIED Qualifiers: Urinary tract infection type: site unspecified Hematuria presence: with hematuria Qualified Code(s): N39.0 - Urinary tract infection, site not specified; N39.0 - Urinary tract infection, site not specified; R31.9 - Hematuria, unspecified; R31.9 - Hematuria, unspecified (9) A-fib Code(s): I48.91 - UNSPECIFIED ATRIAL FIBRILLATION Qualifiers: Atrial fibrillation type: paroxysmal Qualified Code(s): I48.0 - Paroxysmal atrial fibrillation; I48.0 - Paroxysmal atrial fibrillation; I48.0 - Paroxysmal atrial fibrillation; I48.0 - Paroxysmal atrial fibrillation (10) Anticoagulant long-term use Code(s): Z79.01 - RESIDENTIAL (CURRENT) USE OF ANTICOAGULANTS Assessment/Plan Echo 09/09/2015: nl LV/EF, nl RV, mild MR 1. Fever, hematuria suspect UTI, + cdiff Ag with history of multi-drug resistant organisms 2. COPD with acute on chronic hypoxic/hypercapneic respiratory failure post tracheostomy 3. Diastolic LV dysfunction with class I NYHA classification LV congestive heart failure, compensated/euvolemic 4. Paroxysmal Atrial Fibrillation/atrial tachycardia on NOAC, [id number] score of 4 5. HTN 6. Hypothyroidism 7. History of C. Difficile Colitis 8. MARLYN and Hyperkalemia 9. 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 Inhaled bronchodilators, O2 to keep SpO2 >90%, and GI prophylaxis and continue vent support, SBT when fever subsides 2. Continue Cardizem CD 120 qd and Valsartan 80 qd as tolerated 3. Continue Eliquis 5 bid 4. Transfuse to maintain Hgb>8.0 5. Complete course of Flagyl. 6. F/u CT imaging results
--- NOTE | 2017-08-25 11:23 | PN ---
Progress Note (short form) - Note Progress Note: PULMONARY Fevers persist overnight. Vented on volume assist control with 40% FiO2. Last Vital Signs Temp Pulse Resp BP Pulse Ox 100.3 F H 109 H 15 108/56 99 08/25/17 10:30 08/25/17 10:30 08/25/17 10:30 08/25/17 10:30 08/24/17 21:00 Gen: vented, awake Heart: RRR Lung: distant breath sounds Abd: soft, nontender Ext: no edema CBC, BMP 08/25/17 08:35 08/25/17 08:35 Active Medications Acetaminophen (Tylenol -) 650 mg PO Q6H PRN PRN Reason: FEVER OR PAIN Last Admin: 08/25/17 02:10 Dose: 650 mg Acetaminophen (Tylenol Suppository -) 650 mg NM Q6H PRN PRN Reason: FEVER OR PAIN Last Admin: 08/20/17 02:20 Dose: 650 mg Albuterol/Ipratropium (Duoneb -) 1 amp NEB QIDR [facility] Last Admin: 08/25/17 06:15 Dose: 1 amp Amino Acids (Prosource No Carb Liquid Pkt) 30 ml PO BID@0800,1730 [facility] Last Admin: 08/25/17 09:00 Dose: Not Given Apixaban (Eliquis -) 5 mg PO BID [facility] Last Admin: 08/24/17 23:20 Dose: 5 mg Cholestyramine Resin (Questran Light Packet -) 4 gm PO DAILY [facility] Last Admin: 08/24/17 13:54 Dose: Not Given Collagenase (Santyl -) 1 applic TP DAILY [facility] Last Admin: 08/24/17 11:57 Dose: Not Given Diltiazem HCl (Cardizem Cd -) 120 mg PO DAILY [facility] Last Admin: 08/24/17 15:02 Dose: 120 mg Ferrous Sulfate (Feosol -) 325 mg PO DAILY [facility] Last Admin: 08/24/17 15:02 Dose: 325 mg Folic Acid (Folic Acid -) 1 mg PO DAILY [facility] Last Admin: 08/24/17 15:03 Dose: 1 mg Dextrose/Sodium Chloride (D5-Ns -) 1,000 mls @ 42 mls/hr IV ASDIR [facility] Last Admin: 08/25/17 02:45 Dose: 42 mls/hr Lactobacillus Acidophilus (Bacid -) 1 tab PO DAILY [facility] Last Admin: 08/24/17 15:03 Dose: 1 tab Levothyroxine Sodium (Synthroid -) 75 mcg PO DAILY@0700 [facility] Last Admin: 08/25/17 06:23 Dose: 75 mcg Lorazepam (Ativan -) 0.5 mg PO Q8H PRN PRN Reason: ANXIETY Magnesium Oxide (Mag-Ox -) 400 mg PO BID [facility] Last Admin: 08/24/17 23:20 Dose: 400 mg Metronidazole (Flagyl -) 500 mg PO TID [facility] Last Admin: 08/25/17 06:23 Dose: 500 mg Mirtazapine (Remeron -) 15 mg PO HS [facility] Last Admin: 08/24/17 23:20 Dose: 15 mg Nystatin (Nystop Powder -) 1 applic TP DAILY [facility] Last Admin: 08/24/17 15:00 Dose: 1 applic Potassium Chloride (K-Dur -) 40 meq PO ONCE ONE Stop: 08/25/17 11:31 Ranitidine HCl (Zantac -) 150 mg PO DAILY [facility] Last Admin: 08/24/17 15:02 Dose: 150 mg Tamsulosin HCl (Flomax -) 0.4 mg PO DAILY@1730 [facility] Last Admin: 08/24/17 17:45 Dose: 0.4 mg Thiamine HCl (Vitamin B1 -) 100 mg PO DAILY [facility] Last Admin: 08/24/17 15:01 Dose: 100 mg Valsartan (Diovan -) 80 mg PO DAILY [facility] Last Admin: 08/24/17 15:02 Dose: 80 mg Zinc Sulfate (Orazinc -) 220 mg PO DAILY [facility] Last Admin: 08/24/17 15:02 Dose: 220 mg A/P Acute on Chronic Hypoxic and Hypercapneic Respiratory Failure Fever r/o C Diff COPD Atrial Fibrillation LV Diastolic Dysfunction - antibiotics per ID - f/u cultures - for CT imaging today - inhaled bronchodilators - continue volume assist control - spontaneous breathing trials when fevers resolve - enteral feeds - on anticoagulation
[2017-08-25] MEDS ORDERED: POTASSIUM CHLORIDE TABS 20 MEQ TABLET.ER (FP) PO ONE (11:30)
[2017-08-25] MEDS ORDERED: PT OWN MED DRAWER 7, Y5N ONE ×2 (12:33→21:12)
[2017-08-25] MEDS: LACTOBACILLUS ACIDOPHILUS 1 EACH TAB (FP) PO SCH (12:34)
[2017-08-25] MEDS: MAGNESIUM OXIDE 400 MG TABLET (FP) PO SCH ×2 (12:35→22:23)
[2017-08-25] MEDS: THIAMINE HCL 100 MG TABLET (FP) PO SCH (12:35)
[2017-08-25] MEDS: FERROUS SO4 325 MG TABLET (FP) PO SCH (12:35)
[2017-08-25] MEDS: FOLIC ACID 1 MG TABLET (FP) PO SCH (12:35)
[2017-08-25] MEDS: NYSTATIN POWDER 100,000 UNITS/GM - 15 GM TOPICAL POWDER TP SCH (12:35)
[2017-08-25] MEDS: ZINC SULFATE 220 MG CAPSULE (FP) PO SCH (12:35)
[2017-08-25] MEDS: APIXABAN 5 MG TABLET PO SCH ×2 (12:36→22:23)
[2017-08-25] MEDS: RANITIDINE HCL 150 MG TABLET (FP) PO SCH (12:36)
[2017-08-25] MEDS: VALSARTAN 80 MG TABLET (UD) PO SCH (12:36)
[2017-08-25] MEDS: CHOLESTYRAMINE/ASPARTAME 4 GM PACKET PO SCH (12:36)
--- NOTE | 2017-08-25 13:03 | PN ---
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 Pt reports feeling "better" today. Speaking over cuff. In past, PMV was tolerated well. Consider PMV evaluation, to improve communication, swallowing, wean from ventilator.
[2017-08-25 13:47] VITALS: BMI 25.6
--- NOTE | 2017-08-25 13:47 | CON.NEP ---
Consult Consult Specialty:: Nephrology Referred by:: Dr. Lopez Reason for Consultation:: Hyponatremia, Hypokalemia - History of Present Illness Chief Complaint: Anemia, Fever History of Present Illness: This is a 67 year old woman with PMhx of Chronic Respiratory failure on vent, COPD, Anemia, Afib, Hypothyrodism who presented from the [place] with fever and anemia and with hyponatremia and hypokalemia. Pt awake and alert on the vent. No acute complaints. Pt s/p PRBC transfusion. Pt found to have UTI and suspected wound infection. Pt also noted to have C-diff. 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: Yes: CVA, Other (poor short term memory) Cardio/Vascular: Yes: AFIB, HTN Pulmonary: Yes: COPD, Previously Intubated, Other (RESPIRATORY FAILURE) Infectious Disease: Yes: C-Diff Endocrine: Yes: Hypothyroidism - Past Surgical History Past Surgical History: Yes: Appendectomy - Alcohol/Substance Use Hx Alcohol Use: No History of Substance Use: reports: None - Smoking History Smoking history: Unknown if ever smoked Have you smoked in the past 12 months: No If you are a former smoker, when did you quit?: 2008 - Social History Usual Living Arrangement: Senior Living ADL: Family Assistance History of Recent Travel: No Home Medications - Allergies Allergies/Adverse Reactions: Allergies Allergy/AdvReac Type Severity Reaction Status Date / Time peas Allergy Severe Difficulty Verified 07/19/17 12:10 Breathing Iodinated Contrast- Oral and Allergy Verified 07/19/17 12:10 IV Dye [Iodinated Contrast Media - IV Dye] iodine Allergy Verified 07/19/17 12:10 - Home Medications Home Medications: Ambulatory Orders Albuterol 2.5/Ipratropium 0.5 [Duoneb -] 1 neb NEB TID 02/01/16 Aspirin [Ecotrin] 81 mg PO DAILY 02/01/16 Folic Acid 1 mg PO DAILY 02/01/16 Levothyroxine [Synthroid -] 75 mcg PO DAILY 02/01/16 Lorazepam 0.5 mg PO HS 02/01/16 Mirtazapine 15 mg PO HS 02/01/16 Thiamine HCl [Vitamin B1 -] 100 mg PO DAILY 02/01/16 Vitamin B Complex Vit C No.3 [B Complex with Vitamin C] 1 each PO DAILY Ranitidine [Zantac -] 150 mg PO DAILY tablet 02/09/16 Cholestyramine/Aspartame [Questran Light Packet -] 4 gm PO BID packet 06/14/17 Acetaminophen [Tylenol .Regular Strength -] 650 mg PO Q4H PRN #0 tablet Albuterol 0.083% Nebulizer Carina [Ventolin 0.083% Nebulizer Soln -] 1 amp NEB Q4H PRN #180 amp 06/23/17 Apixaban [Eliquis -] 5 mg PO BID tablet 06/23/17 Budesonide [Pulmicort 0.25 mg Nebulizer -] 1 amp NEB BID amp 06/23/17 Melatonin 5 mg PO HS tab 06/23/17 Oxycodone HCl [Roxicodone -] 5 mg PO Q4H PRN #0 tablet MDD 6 06/23/17 Valsartan [Diovan] 320 mg PO DAILY tablet 07/27/17 Aa/Hydrolyzed Collagen, Whey [Lps Neutral Flavor Liquid] 30 ml PO BID 08/12/17 Calcium Carbonate/Vitamin D3 [Oyster Shell 500-Vit D3 200 Tb] 1 each PO DAILY Diltiazem HCl [Cardizem LA] 120 mg PO DAILY 08/12/17 Fluconazole [Diflucan -] 100 mg PO DAILY 08/12/17 Iron 325 mg PO BID 08/12/17 Lactobacillus Acidophilus [Bacid -] 1 tab PO BID 08/12/17 Levofloxacin [Levaquin] 500 mg PO DAILY 08/12/17 Pantoprazole Sodium 40 mg PO DAILY 08/12/17 Polyvinyl Alcohol [Artificial Tears] 1 drop OD DAILY 08/12/17 Family Disease History - Family Disease History Family History: Unable to Obtain Review of Systems - Review of Systems Constitutional: reports: Fever Eyes: reports: No Symptoms HENT: reports: No Symptoms Neck: reports: No Symptoms Cardiovascular: reports: No Symptoms Respiratory: reports: No Symptoms Gastrointestinal: reports: No Symptoms Genitourinary: reports: No Symptoms Neurological: reports: No Symptoms Nephrology Consult - Height Height: 50 in - Weight Weight: 91 lb - BMI Body Mass Index (BMI): 25.6 - Lab Results CBC,BMP: CBC, BMP 08/25/17 08:35 08/25/17 08:35 Anion Gap: Anion Gap Anion Gap 9 (8-16) 08/25/17 08:35 - Imaging Chest X-ray: Report Reviewed - Physical Examination Vital Signs: Vital Signs Temperature 100.3 F H 08/25/17 10:30 Pulse Rate 118 H 08/25/17 12:35 Respiratory Rate 24 08/25/17 12:35 Blood Pressure 138/66 08/25/17 12:35 O2 Sat by Pulse Oximetry (%) 99 08/24/17 21:00 Constitutional: Yes: No Distress, Calm, Other (On vent vai ET tube) Eyes: Yes: Conjunctiva Clear HENT: Yes: Atraumatic Neck: Yes: Supple Cardiovascular: Yes: Regular Rate and Rhythm Respiratory: Yes: Regular, Other (Course BS) Gastrointestinal: Yes: Normal Bowel Sounds, Soft. No: Tenderness Extremities: No: Cold, Cool, Cyanosis Edema: No Problem List - Problems (1) COPD (chronic obstructive pulmonary disease) Code(s): J44.9 - CHRONIC OBSTRUCTIVE PULMONARY DISEASE, UNSPECIFIED Qualifiers : COPD type: unspecified COPD Qualified Code(s): J44.9 - Chronic obstructive pulmonary disease, unspecified; J44.9 - Chronic obstructive pulmonary disease, unspecified; J44.9 - Chronic obstructive pulmonary disease, unspecified; J44.9 - Chronic obstructive pulmonary disease, unspecified (2) Respiratory failure Code(s): J96.90 - RESPIRATORY FAILURE, UNSP, UNSP W HYPOXIA OR HYPERCAPNIA Qualifiers: Chronicity: acute on chronic Respiratory failure complication: hypercapnia Qualified Code(s): J96.22 - Acute and chronic respiratory failure with hypercapnia; J96.22 - Acute and chronic respiratory failure with hypercapnia; J96.22 - Acute and chronic respiratory failure with hypercapnia (3) Hyponatremia Code(s): E87.1 - HYPO-OSMOLALITY AND HYPONATREMIA (4) Hypokalemia Code(s): E87.6 - HYPOKALEMIA Assessment/Plan 67 year old woman with PMhx of Chronic Respiratory failure on vent, COPD, Anemia , Afib, Hypothyrodism who presented from the [place] with fever and anemia and with hyponatremia and hypokalemia. #Hyponatremia likely hypovolemic hyponatremia in setting of infection/diarrhea Check Urine Na, Urine OSM continue isotonic saline, increase rate to 60cc per hour Trend Na Q24hr no indication for 3% saline #Hypokalemia likely related to low Mg levels Added mg levels this am Give KCL PO today continue Mg supplement orally Give IV mg if level < 2 #Sepsis/UTI/Cdiff continue Abx as per ID vent support Thank you Will follow Fernando Douglas DO
[2017-08-25] MEDS ORDERED: DEXTROSE 5%-NORMAL SALINE 1,000 ML IV SCH (13:54)
[2017-08-25] MEDS ORDERED: POTASSIUM CHLORIDE ORAL LIQUID 20 MEQ/15 ML PO ONE (14:15)
[2017-08-25] MEDS: D5-NS + 20 MEQ KCL - 1,000 ML IV SCH (15:45)
[2017-08-25] MEDS ORDERED: SODIUM CHLORIDE 250 ML IV ONE (15:45)
[2017-08-25 15:55] LABS: MAGNESIUM 1.2 mg/dL (1.8-2.4)
[2017-08-25 16:33] LABS: OSMOLALITY,SERUM 270 mosm/kg (278-305)
--- NOTE | 2017-08-25 17:14 | PN ---
Progress Note (short form) - Note Progress Note: NAD continued fevers spoke with nursing stools more formed sacrum no skin breakdown alert talking on the vent Vital Signs Period Temp Pulse Resp BP Sys/Parra Pulse Ox Last 24 Hr 98.8 F-103.1 F 101-126 14-24 106-145/44-84 97-99 cor-rrr, lungs decresed bs at bses abd soft,nt ext no edema tach to vent ct scn with large superior/anterior mediastinal mass CBC, BMP 08/25/17 08:35 08/25/17 08:35 imp/reccd FUO- suspect malignancy related, ?lymphoma, ?thymoma- multiple blood cultures negative continue flagyl stools improved anemia s/p transfusion straight cath for ua and urine culture d/w Dr Lopez- to consider biopsy of mass, check ldh chronic resp failure- on vent via trach history of VRE rectal colonization-contact isolation Problem List - Problems (1) Fever Code(s): R50.9 - FEVER, UNSPECIFIED Qualifiers: Fever type: unspecified Qualified Code(s): R50.9 - Fever, unspecified; R50.9 - Fever, unspecified (2) UTI (urinary tract infection) Code(s): N39.0 - URINARY TRACT INFECTION, SITE NOT SPECIFIED Qualifiers: Urinary tract infection type: site unspecified Hematuria presence: with hematuria Qualified Code(s): N39.0 - Urinary tract infection, site not specified; N39.0 - Urinary tract infection, site not specified; R31.9 - Hematuria, unspecified; R31.9 - Hematuria, unspecified
[2017-08-25 19:50] LABS: URINE APPEARANCE CLEAR; URINE BILIRUBIN NEGATIVE (NEGATIVE); URINE BLOOD NEGATIVE (NEGATIVE); URINE COLOR YELLOW; URINE GLUCOSE (UA) NEGATIVE (NEGATIVE); URINE KETONE NEGATIVE (NEGATIVE); URINE NITRITE NEGATIVE (NEGATIVE); URINE PROTEIN NEGATIVE (NEGATIVE); URINE UROBILINOGEN NEGATIVE mg/dL (0.2-1.0)
[2017-08-25] MEDS: TAMSULOSIN HCL 0.4 MG CAP.ER.24H (FP) PO SCH (20:17)
[2017-08-25] MEDS: COLLAGENASE CLOSTRIDIUM HIST. 30 GRAMS TUBE TP SCH (20:17)
[2017-08-25] MEDS: MIRTAZAPINE 15 MG TABLET (FP) PO SCH (22:23)
[2017-08-25 22:56] LABS: URINE LEUK ESTERASE Negative (NEGATIVE)
[2017-08-26] MEDS: ALBUTEROL SO4 2.5/IPRATROPIUM 0.5 INH SOL 3 ML VIAL.NEB. NEB SCH ×4 (06:04→23:42)
[2017-08-26] MEDS: metroNIDAZOLE 250 MG TABLET PO SCH ×3 (06:50→22:49)
[2017-08-26] MEDS: ACETAMINOPHEN 325 MG TABLET (FP) PO PRN (06:51)
[2017-08-26] MEDS: LEVOTHYROXINE NA 75 MCG TABLET (FP) PO SCH (06:51)
--- NOTE | 2017-08-26 07:24 | RAPID ---
Physical Examination Findings/Remarks: Rapid response called as pt was unresponsive and oxygen saturation on vent was noted to be in the 40s. Upon arrival pt was disconnected from vent for open suction and pt was ambu-bagged while not being suctioned. Pt had positive gag reflex with open suction and oxygen saturations with ambu-bag continued to come up into 90s. Pt was reconnected to vent and pt was awake, alert, and oriented to self. Pt denied any pains, trouble breathing, and said she had no complaints. Pt noted to have fever of 102.1 late yesterday. BCx and UCx and Chest CT and Abd CT done yesterday. Cultures still pending. CT chest shows: Abd CT shows: Vitals s/p rapid response 114/73, 137 bpm, 100% O2 sat on vent PE: Gen: AAOx1, pt easily falls back asleep in between questioning. Following basic commands. C/V: Difficult to auscultate heart sounds over vent Resp: Lungs auscultated anteriorly. Diminished breath sounds, CTA B/L Abd: Soft, Non-tender Extremities: No edema. Able to squeeze fingers and wiggle toes. A/P -Pt temporarily unresponsive secondary hypercapnia from secretions. -pt open suctioned and improved at this time. -saturating well at this time, continue to monitor -At this time pt is alert, awake and oriented. -continue to monitor mental status -Monitor BCx and UCx for signs of infection Labs: CBC, BMP 08/25/17 08:35 08/25/17 08:35
[2017-08-26 08:52] LABS: BASOPHIL 0.8 % (0-2.0); EOSINOPHIL 0.3 % (0-4.5); MCH 28.5 pg (25.7-33.7); MCHC 32.6 g/dl (32.0-36.0); MEAN CELL VOLUME 87.3 fl (80-96); MEAN PLT VOLUME 8.7 fl (7.5-11.1); NEUTROPHILS 80.1 % (42.8-82.8); PLATELET COUNT 383 K/MM3 (134-434); WHITE BLOOD COUNT 15.4 K/mm3 (4.0-10.0)
[2017-08-26 09:14] LABS: ALBUMIN 1.8 g/dl (3.4-5.0); ANION GAP 8 (8-16); CALCIUM 7.4 mg/dL (8.5-10.1); CO2 25 mmol/L (21-32); CREATININE 0.3 mg/dL (0.55-1.02); GLUCOSE,RANDOM 143 mg/dL (74-106); MAGNESIUM 1.3 mg/dL (1.8-2.4); SGOT/AST 7 U/L (15-37); SGPT/ALT 7 U/L (12-78)
[2017-08-26] MEDS ORDERED: PT OWN MED DRAWER 7, Y5N ONE ×2 (09:14→16:44)
[2017-08-26 09:25] LABS: ALK PHOS 96 U/L (45-117); BILIRUBIN,TOTAL 0.7 mg/dL (0.2-1.0); LDH 165 U/L (84-246); THYROID STIMULATING HORMONE 4.08 uIU/ml (0.358-3.74); TOT PROT 4.8 g/dl (6.4-8.2)
[2017-08-26] MEDS: FOLIC ACID 1 MG TABLET (FP) PO SCH (10:06)
[2017-08-26] MEDS: AMINO ACIDS/PROTEIN HYDROLYS 30 ML LIQUID.PKT PO SCH ×2 (10:06→16:57)
[2017-08-26] MEDS: VALSARTAN 80 MG TABLET (UD) PO SCH (10:06)
[2017-08-26] MEDS: APIXABAN 5 MG TABLET PO SCH ×2 (10:06→22:49)
[2017-08-26] MEDS: MAGNESIUM OXIDE 400 MG TABLET (FP) PO SCH (10:06)
[2017-08-26] MEDS: LACTOBACILLUS ACIDOPHILUS 1 EACH TAB (FP) PO SCH (10:06)
[2017-08-26] MEDS: FERROUS SO4 325 MG TABLET (FP) PO SCH (10:06)
[2017-08-26] MEDS: THIAMINE HCL 100 MG TABLET (FP) PO SCH (10:07)
[2017-08-26] MEDS: RANITIDINE HCL 150 MG TABLET (FP) PO SCH (10:07)
[2017-08-26] MEDS: COLLAGENASE CLOSTRIDIUM HIST. 30 GRAMS TUBE TP SCH (10:07)
[2017-08-26] MEDS: CHOLESTYRAMINE/ASPARTAME 4 GM PACKET PO SCH (10:07)
[2017-08-26] MEDS: NYSTATIN POWDER 100,000 UNITS/GM - 15 GM TOPICAL POWDER TP SCH (10:07)
[2017-08-26] MEDS: ZINC SULFATE 220 MG CAPSULE (FP) PO SCH (10:07)
--- NOTE | 2017-08-26 10:33 | PN ---
Progress Note, Physician History of Present Illness: Fever spike earlier today, plan for CT scan r/o occult abscess. - Current Medication List Current Medications: Active Medications Acetaminophen (Tylenol -) 650 mg PO Q6H PRN PRN Reason: FEVER OR PAIN Last Admin: 08/26/17 06:51 Dose: 650 mg Acetaminophen (Tylenol Suppository -) 650 mg [place] Q6H PRN PRN Reason: FEVER OR PAIN Last Admin: 08/20/17 02:20 Dose: 650 mg Albuterol/Ipratropium (Duoneb -) 1 amp NEB QIDR [facility] Last Admin: 08/26/17 06:04 Dose: 1 amp Amino Acids (Prosource No Carb Liquid Pkt) 30 ml PO BID@0800,1730 [facility] Last Admin: 08/26/17 10:06 Dose: Not Given Apixaban (Eliquis -) 5 mg PO BID [facility] Last Admin: 08/26/17 10:06 Dose: Not Given Cholestyramine Resin (Questran Light Packet -) 4 gm PO DAILY [facility] Last Admin: 08/26/17 10:07 Dose: Not Given Collagenase (Santyl -) 1 applic TP DAILY [facility] Last Admin: 08/26/17 10:07 Dose: Not Given Diltiazem HCl (Cardizem Cd -) 120 mg PO DAILY [facility] Last Admin: 08/26/17 10:06 Dose: Not Given Ferrous Sulfate (Feosol -) 325 mg PO DAILY [facility] Last Admin: 08/26/17 10:06 Dose: Not Given Folic Acid (Folic Acid -) 1 mg PO DAILY [facility] Last Admin: 08/26/17 10:06 Dose: Not Given Dextrose/Sodium Chloride (Dextrose 5%-Normal Saline+20 Meq Kcl -) 1,000 mls @ 60 mls/hr IV ASDIR [facility] Last Admin: 08/25/17 15:45 Dose: 60 mls/hr Lactobacillus Acidophilus (Bacid -) 1 tab PO DAILY [facility] Last Admin: 08/26/17 10:06 Dose: Not Given Levothyroxine Sodium (Synthroid -) 75 mcg PO DAILY@0700 [facility] Last Admin: 08/26/17 06:51 Dose: 75 mcg Lorazepam (Ativan -) 0.5 mg PO Q8H PRN PRN Reason: ANXIETY Last Admin: 08/26/17 01:07 Dose: 0.5 mg Magnesium Oxide (Mag-Ox -) 400 mg PO BID [facility] Last Admin: 08/26/17 10:06 Dose: Not Given Metronidazole (Flagyl -) 500 mg PO TID [facility] Last Admin: 08/26/17 06:50 Dose: 500 mg Mirtazapine (Remeron -) 15 mg PO HS [facility] Last Admin: 08/25/17 22:23 Dose: 15 mg Nystatin (Nystop Powder -) 1 applic TP DAILY [facility] Last Admin: 08/26/17 10:07 Dose: Not Given Ranitidine HCl (Zantac -) 150 mg PO DAILY [facility] Last Admin: 08/26/17 10:07 Dose: Not Given Tamsulosin HCl (Flomax -) 0.4 mg PO DAILY@1730 [facility] Last Admin: 08/25/17 20:17 Dose: Not Given Thiamine HCl (Vitamin B1 -) 100 mg PO DAILY [facility] Last Admin: 08/26/17 10:07 Dose: Not Given Valsartan (Diovan -) 80 mg PO DAILY [facility] Last Admin: 08/26/17 10:06 Dose: Not Given Zinc Sulfate (Orazinc -) 220 mg PO DAILY [facility] Last Admin: 08/26/17 10:07 Dose: Not Given - Objective Vital Signs: Vital Signs Temperature 103.1 F H 08/26/17 06:00 Pulse Rate 114 H 08/26/17 09:34 Respiratory Rate 13 08/26/17 09:33 Blood Pressure 133/70 08/26/17 06:00 O2 Sat by Pulse Oximetry (%) 100 08/26/17 09:34 Cardiovascular: Yes: Regular Rate and Rhythm Respiratory: Yes: Mechanically Ventilated, Rhonchi Gastrointestinal: Yes: Normal Bowel Sounds, Soft Edema: No Labs: CBC, BMP 08/26/17 07:12 08/26/17 07:12 INR, PTT INR 2.24 (0.82-1.09) H D 08/12/17 18:00 Problem List - Problems (1) Fever Code(s): R50.9 - FEVER, UNSPECIFIED Qualifiers: Fever type: unspecified Qualified Code(s): R50.9 - Fever, unspecified; R50.9 - Fever, unspecified (2) Hematuria Code(s): R31.9 - HEMATURIA, UNSPECIFIED Qualifiers: Hematuria type: unspecified type Qualified Code(s): R31.9 - Hematuria, unspecified; R31.9 - Hematuria, unspecified (3) Acute on chronic respiratory failure with hypoxia and hypercapnia Code(s): J96.21 - ACUTE AND CHRONIC RESPIRATORY FAILURE WITH HYPOXIA J96.22 - ACUTE AND CHRONIC RESPIRATORY FAILURE WITH HYPERCAPNIA (4) COPD (chronic obstructive pulmonary disease) Code(s): J44.9 - CHRONIC OBSTRUCTIVE PULMONARY DISEASE, UNSPECIFIED Qualifiers : COPD type: unspecified COPD Qualified Code(s): J44.9 - Chronic obstructive pulmonary disease, unspecified; J44.9 - Chronic obstructive pulmonary disease, unspecified; J44.9 - Chronic obstructive pulmonary disease, unspecified; J44.9 - Chronic obstructive pulmonary disease, unspecified (5) Diastolic heart failure Code(s): I50.30 - UNSPECIFIED DIASTOLIC (CONGESTIVE) HEART FAILURE Qualifiers : Heart failure chronicity: chronic Qualified Code(s): I50.32 - Chronic diastolic (congestive) heart failure; I50.32 - Chronic diastolic ( congestive) heart failure; I50.32 - Chronic diastolic (congestive) heart failure ; I50.32 - Chronic diastolic (congestive) heart failure (6) Hypothyroid Code(s): E03.9 - HYPOTHYROIDISM, UNSPECIFIED Qualifiers: Hypothyroidism type: unspecified Qualified Code(s): E03.9 - Hypothyroidism, unspecified; E03.9 - Hypothyroidism, unspecified; E03.9 - Hypothyroidism, unspecified (7) Tracheostomy dependence Code(s): Z93.0 - TRACHEOSTOMY STATUS (8) UTI (urinary tract infection) Code(s): N39.0 - URINARY TRACT INFECTION, SITE NOT SPECIFIED Qualifiers: Urinary tract infection type: site unspecified Hematuria presence: with hematuria Qualified Code(s): N39.0 - Urinary tract infection, site not specified; N39.0 - Urinary tract infection, site not specified; R31.9 - Hematuria, unspecified; R31.9 - Hematuria, unspecified (9) A-fib Code(s): I48.91 - UNSPECIFIED ATRIAL FIBRILLATION Qualifiers: Atrial fibrillation type: paroxysmal Qualified Code(s): I48.0 - Paroxysmal atrial fibrillation; I48.0 - Paroxysmal atrial fibrillation; I48.0 - Paroxysmal atrial fibrillation; I48.0 - Paroxysmal atrial fibrillation (10) Anticoagulant long-term use Code(s): Z79.01 - GROUP HOME (CURRENT) USE OF ANTICOAGULANTS Assessment/Plan Echo 09/09/2015: nl LV/EF, nl RV, mild MR 1. 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 COPD with acute on chronic hypoxic/hypercapneic respiratory failure post tracheostomy 3. Diastolic LV dysfunction with class I NYHA classification LV congestive heart failure, compensated/euvolemic 4. Paroxysmal Atrial Fibrillation/atrial tachycardia on NOAC, [id number] score of 4 5. HTN 6. Hypothyroidism 7. History of C. Difficile Colitis 8. MARLYN and Hyperkalemia 9. 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 Inhaled bronchodilators, O2 to keep SpO2 >90%, and GI prophylaxis and continue vent support, SBT when fever subsides 2. Continue Cardizem CD 120 qd and Valsartan 80 qd as tolerated 3. Continue Eliquis 5 bid 4. Transfuse to maintain Hgb>8.0 5. Complete course of Flagyl.
--- NOTE | 2017-08-26 11:11 | PN ---
Progress Note, Physician Chief Complaint: patient hypotensive temp 103.1 ct scan of chest noted unable to take oral meds desturates very quickly - Current Medication List Current Medications: Active Medications Acetaminophen (Tylenol -) 650 mg PO Q6H PRN PRN Reason: FEVER OR PAIN Last Admin: 08/26/17 06:51 Dose: 650 mg Acetaminophen (Tylenol Suppository -) 650 mg [place] Q6H PRN PRN Reason: FEVER OR PAIN Last Admin: 08/20/17 02:20 Dose: 650 mg Albuterol/Ipratropium (Duoneb -) 1 amp NEB QIDR [facility] Last Admin: 08/26/17 06:04 Dose: 1 amp Amino Acids (Prosource No Carb Liquid Pkt) 30 ml PO BID@0800,1730 [facility] Last Admin: 08/26/17 10:06 Dose: Not Given Apixaban (Eliquis -) 5 mg PO BID [facility] Last Admin: 08/26/17 10:06 Dose: Not Given Cholestyramine Resin (Questran Light Packet -) 4 gm PO DAILY [facility] Last Admin: 08/26/17 10:07 Dose: Not Given Collagenase (Santyl -) 1 applic TP DAILY [facility] Last Admin: 08/26/17 10:07 Dose: Not Given Diltiazem HCl (Cardizem Cd -) 120 mg PO DAILY [facility] Last Admin: 08/26/17 10:06 Dose: Not Given Ferrous Sulfate (Feosol -) 325 mg PO DAILY [facility] Last Admin: 08/26/17 10:06 Dose: Not Given Folic Acid (Folic Acid -) 1 mg PO DAILY [facility] Last Admin: 08/26/17 10:06 Dose: Not Given Dextrose/Sodium Chloride (Dextrose 5%-Normal Saline+20 Meq Kcl -) 1,000 mls @ 60 mls/hr IV ASDIR [facility] Last Admin: 08/25/17 15:45 Dose: 60 mls/hr Lactobacillus Acidophilus (Bacid -) 1 tab PO DAILY [facility] Last Admin: 08/26/17 10:06 Dose: Not Given Levothyroxine Sodium (Synthroid -) 75 mcg PO DAILY@0700 [facility] Last Admin: 08/26/17 06:51 Dose: 75 mcg Lorazepam (Ativan -) 0.5 mg PO Q8H PRN PRN Reason: ANXIETY Last Admin: 08/26/17 01:07 Dose: 0.5 mg Magnesium Oxide (Mag-Ox -) 400 mg PO BID [facility] Last Admin: 08/26/17 10:06 Dose: Not Given Metronidazole (Flagyl -) 500 mg PO TID [facility] Last Admin: 08/26/17 06:50 Dose: 500 mg Mirtazapine (Remeron -) 15 mg PO HS [facility] Last Admin: 08/25/17 22:23 Dose: 15 mg Nystatin (Nystop Powder -) 1 applic TP DAILY [facility] Last Admin: 08/26/17 10:07 Dose: Not Given Ranitidine HCl (Zantac -) 150 mg PO DAILY [facility] Last Admin: 08/26/17 10:07 Dose: Not Given Tamsulosin HCl (Flomax -) 0.4 mg PO DAILY@1730 [facility] Last Admin: 08/25/17 20:17 Dose: Not Given Thiamine HCl (Vitamin B1 -) 100 mg PO DAILY [facility] Last Admin: 08/26/17 10:07 Dose: Not Given Valsartan (Diovan -) 80 mg PO DAILY [facility] Last Admin: 08/26/17 10:06 Dose: Not Given Zinc Sulfate (Orazinc -) 220 mg PO DAILY [facility] Last Admin: 08/26/17 10:07 Dose: Not Given - Objective Vital Signs: Vital Signs Temperature 103.1 F H 08/26/17 06:00 Pulse Rate 114 H 08/26/17 09:34 Respiratory Rate 13 08/26/17 09:33 Blood Pressure 133/70 08/26/17 06:00 O2 Sat by Pulse Oximetry (%) 100 08/26/17 09:34 Constitutional: Yes: Calm, Thin, Other (lethargic, pale) Neck: Yes: Other (trach) Cardiovascular: Yes: S1, S2 Respiratory: Yes: Diminished (on right side) Gastrointestinal: Yes: Soft Edema: No Labs: CBC, BMP 08/26/17 07:12 08/26/17 07:12 INR, PTT INR 2.24 (0.82-1.09) H D 08/12/17 18:00 Problem List - Problems (1) Fever Assessment/Plan: 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 08/25/17 10:27 Blood - Peripheral Venous Blood Culture - Preliminary NO GROWTH OBTAINED AFTER 24 HOURS, INCUBATION TO CONTINUE FOR 4 DAYS. fever ?secondary to mass- unclear but will give iv abx for now d/w sister lianne in detail about this new development and weight loss and decline in health she will speak to her sister and decide goals of care as patient is still full code the family will decide how to proceed Code(s): R50.9 - FEVER, UNSPECIFIED Qualifiers: Fever type: unspecified Qualified Code(s): R50.9 - Fever, unspecified; R50.9 - Fever, unspecified (2) A-fib Assessment/Plan: cardizem for rate control eliquis Code(s): I48.91 - UNSPECIFIED ATRIAL FIBRILLATION Qualifiers: Atrial fibrillation type: paroxysmal Qualified Code(s): I48.0 - Paroxysmal atrial fibrillation; I48.0 - Paroxysmal atrial fibrillation; I48.0 - Paroxysmal atrial fibrillation; I48.0 - Paroxysmal atrial fibrillation (3) Acute on chronic respiratory failure with hypoxia and hypercapnia Assessment/Plan: vent support bronchodilators chest ct noted for soft tissue mass family to decide goals of care Code(s): J96.21 - ACUTE AND CHRONIC RESPIRATORY FAILURE WITH HYPOXIA J96.22 - ACUTE AND CHRONIC RESPIRATORY FAILURE WITH HYPERCAPNIA (4) Diastolic heart failure Assessment/Plan: hypotensive unable to take oral meds Code(s): I50.30 - UNSPECIFIED DIASTOLIC (CONGESTIVE) HEART FAILURE Qualifiers : Heart failure chronicity: chronic Qualified Code(s): I50.32 - Chronic diastolic (congestive) heart failure; I50.32 - Chronic diastolic ( congestive) heart failure; I50.32 - Chronic diastolic (congestive) heart failure ; I50.32 - Chronic diastolic (congestive) heart failure (5) Anemia Assessment/Plan: stable h/h s/p prbc ferrous sulfate discontinue bc unable to take meds Code(s): D64.9 - ANEMIA, UNSPECIFIED Qualifiers: Anemia type: unspecified type Qualified Code(s): D64.9 - Anemia, unspecified; D64.9 - Anemia, unspecified (6) Diarrhea Assessment/Plan: Microbiology 08/23/17 08:30 Stool Clostridium difficile Antigen (TEDDY) - Final 08/23/17 08:30 Stool Clostridium difficile Toxin Assay - Final 07/19/17 21:00 Sputum - Endotrachea Suction/Ventilator Gram Stain - Final 07/19/17 21:00 Sputum - Endotrachea Suction/Ventilator Sputum Culture - Final Beta Hem Streptococcus Group G Providencia Stuartii Diphtheroid/Corynebacterium on flagyl Code(s): R19.7 - DIARRHEA, UNSPECIFIED Qualifiers: Diarrhea type: unspecified type Qualified Code(s): R19.7 - Diarrhea , unspecified; R19.7 - Diarrhea, unspecified (7) Hypokalemia due to loss of potassium Assessment/Plan: magnesium iv cannot take oral Code(s): E87.6 - HYPOKALEMIA (8) Acute and chronic respiratory failure with hypoxia Code(s): J96.21 - ACUTE AND CHRONIC RESPIRATORY FAILURE WITH HYPOXIA (9) Decrease in appetite Assessment/Plan: patient very sick explained to family about her current health condition they will decide further goals of care Code(s): R63.0 - ANOREXIA (10) Hypothyroid Assessment/Plan: synthroid IM Code(s): E03.9 - HYPOTHYROIDISM, UNSPECIFIED Qualifiers: Hypothyroidism type: unspecified Qualified Code(s): E03.9 - Hypothyroidism, unspecified; E03.9 - Hypothyroidism, unspecified; E03.9 - Hypothyroidism, unspecified Assessment/Plan both sisters to decide further goals of care they donot want to speak to palliative team they said they will decide and let me know i spoke to them about comfort care as well given the new change in her health and spoke about how aggressive they want to be with pursing with the new findings of mass on in lung seen on chest ct harvey change most meds to iv as she is not taking medications
--- NOTE | 2017-08-26 11:25 | PN ---
Progress Note (short form) - Note Progress Note: NAD continued fevers alert had episode of desaturation this am resolved with suctioning and ambu bagging nurse does not report increased secretions stools more formed Vital Signs Period Temp Pulse Resp BP Sys/Parra Pulse Ox Last 24 Hr 97.5 F-103.1 F 105-129 12-24 91-138/42-84 93-100 cor-rrr lungs decreased bs at bases abd soft,nt ext no edema CBC, BMP UA negative 08/26/17 07:12 08/26/17 07:12 Microbiology 08/25/17 10:27 Blood - Peripheral Venous Blood Culture - Preliminary NO GROWTH OBTAINED AFTER 24 HOURS, INCUBATION TO CONTINUE FOR 4 DAYS. 08/25/17 10:27 Blood - Peripheral Venous Blood Culture - Preliminary NO GROWTH OBTAINED AFTER 24 HOURS, INCUBATION TO CONTINUE FOR 4 DAYS. 08/22/17 13:30 Blood - Peripheral Venous Blood Culture - Preliminary NO GROWTH OBTAINED AFTER 72 HOURS, INCUBATION TO CONTINUE FOR 2 DAYS. 08/22/17 13:30 Blood - Peripheral Venous Blood Culture - Preliminary NO GROWTH OBTAINED AFTER 72 HOURS, INCUBATION TO CONTINUE FOR 2 DAYS. 08/22/17 15:30 Stool Salmonella/Shigella Culture - Preliminary 08/22/17 15:30 Stool Campylobacter Culture - Final NO GROWTH OF CAMPYLOBACTER SPECIES OBTAINED 08/22/17 15:30 Stool Yersinia Culture - Final NO GROWTH OF YERSINIA SPECIES OBTAINED 08/22/17 15:30 Stool Vibrio Culture - Final NO GROWTH OF VIBRIO SPECIES OBTAINED 08/22/17 15:30 Stool Escherichia coli 0157 Culture - Final NO GROWTH OF E COLI 0157 OBTAINED imp/reccd FUO- suspect malignancy related, ?lymphoma, ?thymoma- multiple blood cultures negative, UA negative continue flagyl stools improved anemia s/p transfusion Dr White to speak with family regarding goals of care advanced directives need to be addressed as well repeat cxray now sputum culture hypotensive now getting ivf will start treatment for empiric pneumonia for now vanco/cefepime chronic resp failure- on vent via trach history of VRE rectal colonization-contact isolation Problem List - Problems (1) Fever Code(s): R50.9 - FEVER, UNSPECIFIED Qualifiers: Fever type: unspecified Qualified Code(s): R50.9 - Fever, unspecified; R50.9 - Fever, unspecified (2) UTI (urinary tract infection) Code(s): N39.0 - URINARY TRACT INFECTION, SITE NOT SPECIFIED Qualifiers: Urinary tract infection type: site unspecified Hematuria presence: with hematuria Qualified Code(s): N39.0 - Urinary tract infection, site not specified; N39.0 - Urinary tract infection, site not specified; R31.9 - Hematuria, unspecified; R31.9 - Hematuria, unspecified
[2017-08-26] MEDS ORDERED: CEFEPIME HCL 1 GM VIAL (RESTRICTED TO ID) IVPB SCH (11:45)
[2017-08-26] MEDS ORDERED: VANCOMYCIN 1,000 MG in DEXTROSE 5%-WATER - 250 ML IVPB ONE (12:00)
[2017-08-26] MEDS ORDERED: MAGNESIUM SULF 50% (8.12 MEQ/2 ML-1 GM VIAL) IVPB ONE (12:15)
--- NOTE | 2017-08-26 13:08 | PN ---
Progress Note (short form) - Note Progress Note: PULMONARY FEBRILE TODAY 103.2 TRYING TO SPEAK AROUND TRACH PALE/ANICTERIC DIMINISHED WITH POOR INSPIRATORY SOUNDS/LEFT ANTERIOR WHEEZE S1S2 IRREGULAR BS+ NO EDEMA LABS/MEDS/NOTES/IMAGES/VENT SETTING/ABG REVIEWED REFUSED MEDS THIS AM IMP ACUTE ON CHRONIC HYPOXEMIC/HYPERCAPNEIC RESPIRATORY FAILURE INVASIVE MEDIASTINAL MASS FEVER ANEMIA COPD AFIB HEMATURIA DIASTOLIC HF PLAN CONTINUE CURRENT VENT SETTINGS NEED TO DETERMINE GOALS OF CARE INHALED BRONCHODILATORS NORMAL TRANSFUSION THRESHOLDS ANTIBIOTICS PER ID CXR TODAY PROGNOSIS IS POOR Rosy BETANCOURT MD
[2017-08-26] MEDS: CEFEPIME 1 GM in DEXTROSE 5%-WATER - 100 ML IVPB SCH ×2 (13:15→22:49)
--- NOTE | 2017-08-26 13:18 | PN ---
Progress Note, DRAWING BOX TENDER - Note Progress Note: CT chest noted. aggressive soft tissue mass in superior mediastinum invading the manubrium and chest wall muscles and encasing the SVC mass highly suspicious for malignancy. Lethargy with limited PO acceptance. Selected Entries 08/25/17 08/25/17 08/25/17 02:00 06:00 09:00 Breakfast 0 Diet Tolerated Lunch Supper Temperature 103.1 F H 99.3 F 08/25/17 08/25/17 08/25/17 10:30 14:53 14:55 Breakfast Diet Tolerated Lunch 25% Supper Temperature 100.3 F H 102.1 F H 102.1 F H 08/25/17 08/25/17 08/26/17 18:30 22:00 02:00 Breakfast Diet Tolerated Lunch Supper 0 Temperature 97.5 F L 99.2 F 99.7 F H 08/26/17 08/26/17 06:00 09:13 Breakfast 0 Diet Tolerated Refused Lunch Supper Temperature 103.1 F H Pending family decision regarding management. No further f/u indicated at this time.
--- NOTE | 2017-08-26 15:29 | PN ---
Progress Note (short form) - Note Progress Note: Renal follow up for Hyponatremia Pt seen and examined at the bedside awake and alert s/p BOAT HAND this am for hypoxia secondary to increase secretions in the trach on Vent via trach at this time on IVF remains febrile Vital Signs Temperature 99.0 F 08/26/17 13:49 Pulse Rate 107 H 08/26/17 12:59 Respiratory Rate 17 08/26/17 14:11 Blood Pressure 110/45 08/26/17 12:59 O2 Sat by Pulse Oximetry (%) 100 08/26/17 09:34 Intake & Output 08/23/17 08/24/17 08/25/17 08/26/17 23:59 23:59 23:59 23:59 Intake Total 1208 1469 1810 600 Output Total 1 180 Balance 1207 1469 1630 600 Weight 91 lb NAD, awake and alert on Vent via trach RRR Course BS soft NT/ND Abd No Le edema CBC, BMP 08/26/17 07:12 08/26/17 07:12 Current Medications Acetaminophen (Tylenol Suppository -) 650 mg [place] Q6H PRN PRN Reason: FEVER OR PAIN Last Admin: 08/20/17 02:20 Dose: 650 mg Albuterol/Ipratropium (Duoneb -) 1 amp NEB QIDR [facility] Last Admin: 08/26/17 11:42 Dose: 1 amp Amino Acids (Prosource No Carb Liquid Pkt) 30 ml PO BID@0800,1730 [facility] Last Admin: 08/26/17 10:06 Dose: Not Given Apixaban (Eliquis -) 5 mg PO BID [facility] Last Admin: 08/26/17 10:06 Dose: Not Given Cholestyramine Resin (Questran Light Packet -) 4 gm PO DAILY [facility] Last Admin: 08/26/17 10:07 Dose: Not Given Collagenase (Santyl -) 1 applic TP DAILY [facility] Last Admin: 08/26/17 10:07 Dose: Not Given Diltiazem HCl (Cardizem Cd -) 120 mg PO DAILY [facility] Last Admin: 08/26/17 10:06 Dose: Not Given Dextrose/Sodium Chloride (Dextrose 5%-Normal Saline+20 Meq Kcl -) 1,000 mls @ 60 mls/hr IV ASDIR [facility] Last Admin: 08/25/17 15:45 Dose: 60 mls/hr Cefepime HCl 1 gm/ Dextrose 100 mls @ 200 mls/hr IVPB BID [facility] Last Admin: 08/26/17 13:15 Dose: 200 mls/hr Vancomycin HCl 500 mg/ (Dextrose) 100 mls @ 100 mls/hr IVPB DAILY@1200 [facility] Lactobacillus Acidophilus (Bacid -) 1 tab PO DAILY [facility] Last Admin: 08/26/17 10:06 Dose: Not Given Levothyroxine Sodium (Synthroid Injection -) 50 mcg IM DAILY [facility] Lorazepam (Ativan -) 0.5 mg PO Q8H PRN PRN Reason: ANXIETY Last Admin: 08/26/17 01:07 Dose: 0.5 mg Metronidazole (Flagyl -) 500 mg PO TID [facility] Last Admin: 08/26/17 06:50 Dose: 500 mg Nystatin (Nystop Powder -) 1 applic TP DAILY [facility] Last Admin: 08/26/17 10:07 Dose: Not Given Tamsulosin HCl (Flomax -) 0.4 mg PO DAILY@1730 [facility] Last Admin: 08/25/17 20:17 Dose: Not Given A/p 67 year old woman with PMhx of Chronic Respiratory failure on vent, COPD, Anemia , Afib, Hypothyrodism who presented from the [place] with fever and anemia and with hyponatremia and hypokalemia. #Hyponatremia serum Na stable on gentle IVF pt appears evolemic at the present time would continue gentle IVF as pt remains febrile and on vent and thus has higher insensable losses trend Na daily #Hypokalemia continue IVF with KCL trend Mg levels with goal > 2 #Sepsis/UTI/Cdiff continue Abx as per ID vent support Fernando Douglas DO Problem List - Problems (1) COPD (chronic obstructive pulmonary disease) Code(s): J44.9 - CHRONIC OBSTRUCTIVE PULMONARY DISEASE, UNSPECIFIED Qualifiers : COPD type: unspecified COPD Qualified Code(s): J44.9 - Chronic obstructive pulmonary disease, unspecified; J44.9 - Chronic obstructive pulmonary disease, unspecified; J44.9 - Chronic obstructive pulmonary disease, unspecified; J44.9 - Chronic obstructive pulmonary disease, unspecified (2) Respiratory failure Code(s): J96.90 - RESPIRATORY FAILURE, UNSP, UNSP W HYPOXIA OR HYPERCAPNIA Qualifiers: Chronicity: acute on chronic Respiratory failure complication: hypercapnia Qualified Code(s): J96.22 - Acute and chronic respiratory failure with hypercapnia; J96.22 - Acute and chronic respiratory failure with hypercapnia; J96.22 - Acute and chronic respiratory failure with hypercapnia (3) Hyponatremia Code(s): E87.1 - HYPO-OSMOLALITY AND HYPONATREMIA (4) Hypokalemia Code(s): E87.6 - HYPOKALEMIA
[2017-08-26] MEDS: D5-NS + 20 MEQ KCL - 1,000 ML IV SCH (15:59)
--- NOTE | 2017-08-26 16:49 | PN ---
Progress Note (short form) - Note Progress Note: spoke to lianne sister she wants patient to be DNR and comfort care and sent back to [facility] comfort care Problem List - Problems (1) Fever Code(s): R50.9 - FEVER, UNSPECIFIED Qualifiers: Fever type: unspecified Qualified Code(s): R50.9 - Fever, unspecified; R50.9 - Fever, unspecified (2) A-fib Code(s): I48.91 - UNSPECIFIED ATRIAL FIBRILLATION Qualifiers: Atrial fibrillation type: paroxysmal Qualified Code(s): I48.0 - Paroxysmal atrial fibrillation; I48.0 - Paroxysmal atrial fibrillation; I48.0 - Paroxysmal atrial fibrillation; I48.0 - Paroxysmal atrial fibrillation (3) Acute on chronic respiratory failure with hypoxia and hypercapnia Code(s): J96.21 - ACUTE AND CHRONIC RESPIRATORY FAILURE WITH HYPOXIA J96.22 - ACUTE AND CHRONIC RESPIRATORY FAILURE WITH HYPERCAPNIA (4) Diastolic heart failure Code(s): I50.30 - UNSPECIFIED DIASTOLIC (CONGESTIVE) HEART FAILURE Qualifiers : Heart failure chronicity: chronic Qualified Code(s): I50.32 - Chronic diastolic (congestive) heart failure; I50.32 - Chronic diastolic ( congestive) heart failure; I50.32 - Chronic diastolic (congestive) heart failure ; I50.32 - Chronic diastolic (congestive) heart failure (5) Anemia Code(s): D64.9 - ANEMIA, UNSPECIFIED Qualifiers: Anemia type: unspecified type Qualified Code(s): D64.9 - Anemia, unspecified; D64.9 - Anemia, unspecified (6) Diarrhea Code(s): R19.7 - DIARRHEA, UNSPECIFIED Qualifiers: Diarrhea type: unspecified type Qualified Code(s): R19.7 - Diarrhea , unspecified; R19.7 - Diarrhea, unspecified (7) Hypokalemia due to loss of potassium Code(s): E87.6 - HYPOKALEMIA (8) Acute and chronic respiratory failure with hypoxia Code(s): J96.21 - ACUTE AND CHRONIC RESPIRATORY FAILURE WITH HYPOXIA (9) Decrease in appetite Code(s): R63.0 - ANOREXIA (10) Hypothyroid Code(s): E03.9 - HYPOTHYROIDISM, UNSPECIFIED Qualifiers: Hypothyroidism type: unspecified Qualified Code(s): E03.9 - Hypothyroidism, unspecified; E03.9 - Hypothyroidism, unspecified; E03.9 - Hypothyroidism, unspecified
[2017-08-26] MEDS: TAMSULOSIN HCL 0.4 MG CAP.ER.24H (FP) PO SCH (16:57)
[2017-08-26] MEDS: ACETAMINOPHEN 650 MG SUPP.RECT PR PRN (23:43)
[2017-08-27] MEDS: metroNIDAZOLE 250 MG TABLET PO SCH ×3 (06:22→22:25)
[2017-08-27] MEDS: ALBUTEROL SO4 2.5/IPRATROPIUM 0.5 INH SOL 3 ML VIAL.NEB. NEB SCH ×3 (06:59→17:02)
[2017-08-27] MEDS: AMINO ACIDS/PROTEIN HYDROLYS 30 ML LIQUID.PKT PO SCH ×2 (09:00→18:13)
--- NOTE | 2017-08-27 09:28 | PN ---
Progress Note, Physician History of Present Illness: Awake, alert on ventilator No complaints of pain when questioned Low grade temp BC no growth - Current Medication List Current Medications: Active Medications Acetaminophen (Tylenol Suppository -) 650 mg [place] Q6H PRN PRN Reason: FEVER OR PAIN Last Admin: 08/26/17 23:43 Dose: 650 mg Albuterol/Ipratropium (Duoneb -) 1 amp NEB QIDR [facility] Last Admin: 08/27/17 06:59 Dose: 1 amp Amino Acids (Prosource No Carb Liquid Pkt) 30 ml PO BID@0800,1730 [facility] Last Admin: 08/26/17 16:57 Dose: Not Given Apixaban (Eliquis -) 5 mg PO BID [facility] Last Admin: 08/26/17 22:49 Dose: 5 mg Cholestyramine Resin (Questran Light Packet -) 4 gm PO DAILY [facility] Last Admin: 08/26/17 10:07 Dose: Not Given Collagenase (Santyl -) 1 applic TP DAILY [facility] Last Admin: 08/26/17 10:07 Dose: Not Given Diltiazem HCl (Cardizem Cd -) 120 mg PO DAILY [facility] Last Admin: 08/26/17 10:06 Dose: Not Given Dextrose/Sodium Chloride (Dextrose 5%-Normal Saline+20 Meq Kcl -) 1,000 mls @ 60 mls/hr IV ASDIR [facility] Last Admin: 08/26/17 15:59 Dose: Not Given Cefepime HCl 1 gm/ Dextrose 100 mls @ 200 mls/hr IVPB BID [facility] Last Admin: 08/26/17 22:49 Dose: 200 mls/hr Vancomycin HCl 500 mg/ (Dextrose) 100 mls @ 100 mls/hr IVPB DAILY@1200 [facility] Lactobacillus Acidophilus (Bacid -) 1 tab PO DAILY [facility] Last Admin: 08/26/17 10:06 Dose: Not Given Levothyroxine Sodium (Synthroid Injection -) 50 mcg IM DAILY [facility] Lorazepam (Ativan -) 0.5 mg PO Q8H PRN PRN Reason: ANXIETY Last Admin: 08/26/17 01:07 Dose: 0.5 mg Metronidazole (Flagyl -) 500 mg PO TID [facility] Last Admin: 08/27/17 06:22 Dose: 500 mg Nystatin (Nystop Powder -) 1 applic TP DAILY [facility] Last Admin: 08/26/17 10:07 Dose: Not Given Tamsulosin HCl (Flomax -) 0.4 mg PO DAILY@1730 [facility] Last Admin: 08/26/17 16:57 Dose: Not Given - Objective Vital Signs: Vital Signs Temperature 98.5 F 08/27/17 06:00 Pulse Rate 108 H 08/27/17 06:00 Respiratory Rate 13 08/27/17 06:08 Blood Pressure 137/68 08/27/17 06:00 O2 Sat by Pulse Oximetry (%) 100 08/26/17 09:34 Constitutional: Yes: No Distress, Cachectic Eyes: Yes: Conjunctiva Clear Cardiovascular: Yes: Regular Rate and Rhythm, S1, S2 Respiratory: Yes: Mechanically Ventilated Gastrointestinal: Yes: Normal Bowel Sounds, Soft. 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
[2017-08-27] MEDS ORDERED: LEVOTHYROXINE SODIUM 100 MCG VIAL IM SCH (10:00)
[2017-08-27] MEDS ORDERED: VANCOMYCIN 500 MG/100 ML PRE-DOCKED IVPB SCH (10:00)
[2017-08-27] MEDS ORDERED: PT OWN MED DRAWER 7, Y5N ONE ×3 (10:41→11:09)
[2017-08-27] MEDS: LACTOBACILLUS ACIDOPHILUS 1 EACH TAB (FP) PO SCH (10:42)
[2017-08-27] MEDS: APIXABAN 5 MG TABLET PO SCH ×2 (10:43→22:26)
[2017-08-27] MEDS: COLLAGENASE CLOSTRIDIUM HIST. 30 GRAMS TUBE TP SCH (10:44)
[2017-08-27] MEDS: CHOLESTYRAMINE/ASPARTAME 4 GM PACKET PO SCH (10:44)
[2017-08-27] MEDS: NYSTATIN POWDER 100,000 UNITS/GM - 15 GM TOPICAL POWDER TP SCH ×2 (10:45→14:00)
[2017-08-27] MEDS: CEFEPIME 1 GM in DEXTROSE 5%-WATER - 100 ML IVPB SCH ×2 (10:46→22:29)
--- NOTE | 2017-08-27 11:01 | PN ---
Progress Note (short form) - Note Progress Note: Chief Complaint: Events noted, notes reviewed, denies any chest pain, no distress History of Present Illness: Seen and examined. Events noted, notes reviewed, denies any chest pain, no distress Medications: Current Medications Acetaminophen (Tylenol Suppository -) 650 mg [place] Q6H PRN PRN Reason: FEVER OR PAIN Last Admin: 08/26/17 23:43 Dose: 650 mg Albuterol/Ipratropium (Duoneb -) 1 amp NEB QIDR [facility] Last Admin: 08/27/17 06:59 Dose: 1 amp Amino Acids (Prosource No Carb Liquid Pkt) 30 ml PO BID@0800,1730 [facility] Last Admin: 08/27/17 09:00 Dose: Not Given Apixaban (Eliquis -) 5 mg PO BID [facility] Last Admin: 08/27/17 10:43 Dose: 5 mg Cholestyramine Resin (Questran Light Packet -) 4 gm PO DAILY [facility] Last Admin: 08/27/17 10:44 Dose: Not Given Collagenase (Santyl -) 1 applic TP DAILY [facility] Last Admin: 08/27/17 10:44 Dose: Not Given Diltiazem HCl (Cardizem Cd -) 120 mg PO DAILY [facility] Last Admin: 08/27/17 10:42 Dose: 120 mg Dextrose/Sodium Chloride (Dextrose 5%-Normal Saline+20 Meq Kcl -) 1,000 mls @ 60 mls/hr IV ASDIR [facility] Last Admin: 08/26/17 15:59 Dose: Not Given Cefepime HCl 1 gm/ Dextrose 100 mls @ 200 mls/hr IVPB BID [facility] Last Admin: 08/27/17 10:46 Dose: 200 mls/hr Vancomycin HCl 500 mg/ (Dextrose) 100 mls @ 100 mls/hr IVPB DAILY@1200 [facility] Lactobacillus Acidophilus (Bacid -) 1 tab PO DAILY [facility] Last Admin: 08/27/17 10:42 Dose: 1 tab Levothyroxine Sodium (Synthroid Injection -) 50 mcg IM DAILY [facility] Lorazepam (Ativan -) 0.5 mg PO Q8H PRN PRN Reason: ANXIETY Last Admin: 08/26/17 01:07 Dose: 0.5 mg Metronidazole (Flagyl -) 500 mg PO TID [facility] Last Admin: 08/27/17 06:22 Dose: 500 mg Nystatin (Nystop Powder -) 1 applic TP DAILY [facility] Last Admin: 08/26/17 10:07 Dose: Not Given Tamsulosin HCl (Flomax -) 0.4 mg PO DAILY@1730 [facility] Last Admin: 08/26/17 16:57 Dose: Not Given Vital Signs: Last Vital Signs Temp Pulse Resp BP Pulse Ox 99.3 F 112 H 18 120/60 100 08/27/17 10:35 08/27/17 10:35 08/27/17 10:35 08/27/17 10:35 08/26/17 09:34 Intake & Output 08/24/17 08/25/17 08/26/17 08/27/17 23:59 23:59 23:59 23:59 Intake Total 1469 1810 1340 780 Output Total 180 Balance 1469 1630 1340 780 Weight 91 lb Constitutional: No Distress, Calm Neck: Supple Negative JVD No Bruit Respiratory: Bilateral Scattered Rhonchi Cardiovascular: S1 S2 Regular Rate and Rhythm Gastrointestinal: Soft Benign Normal Bowel Sounds Ext: No Edema Labs: CBC, BMP 08/26/17 07:12 08/26/17 07:12 INR, PTT INR 2.24 (0.82-1.09) H D 08/12/17 18:00 Hepatic Panel Total Bilirubin 0.7 mg/dL (0.2-1.0) D 08/26/17 07:12 AST 7 U/L (15-37) L 08/26/17 07:12 ALT 7 U/L (12-78) L 08/26/17 07:12 Alkaline Phosphatase 96 U/L (45-117) 08/26/17 07:12 Albumin 1.8 g/dl (3.4-5.0) L 08/26/17 07:12 Assessment/Plan ASSESSMENT: 1. Fever of unknown origin 2. COPD with acute on chronic hypoxic/hypercapneic respiratory failure post tracheostomy 3. Diastolic LV dysfunction with class I NYHA classification LV congestive heart failure, compensated/euvolemic 4. Paroxysmal Atrial Fibrillation/atrial tachycardia on NOAC's, [id number] score of 4 5. HTN 6. Hypothyroidism 7. History of C. Difficile Colitis 8. History of MARLYN 9. Anemia post transfusion PLAN: 1. Continue Cardizem CD 2. Resume Valsartan unless it is absolutely contraindicated with close monitoring of renal function 3. Continue Eliquis 4. Transfuse to maintain Hgb > 8.0 5. Antibiotics as per the primary team Kristi Hardwick M.D.
--- NOTE | 2017-08-27 12:19 | PN ---
Progress Note (short form) - Note Progress Note: PULMONARY FEVER TRENDING DOWN AWAKE /ALERT TRYING TO SPEAK AROUND TRACH PALE/ANICTERIC DIMINISHED WITH POOR INSPIRATORY SOUNDS/LEFT ANTERIOR WHEEZE S1S2 IRREGULAR BS+ NO EDEMA LABS/MEDS/NOTES/IMAGES/VENT SETTING/ABG REVIEWED REFUSED MEDS THIS AM IMP ACUTE ON CHRONIC HYPOXEMIC/HYPERCAPNEIC RESPIRATORY FAILURE INVASIVE MEDIASTINAL MASS FEVER ANEMIA COPD AFIB HEMATURIA DIASTOLIC HF PLAN CONTINUE CURRENT VENT SETTINGS NEED TO DETERMINE GOALS OF CARE INHALED BRONCHODILATORS NORMAL TRANSFUSION THRESHOLDS ANTIBIOTICS PER ID OVERALL PROGNOSIS IS POOR Rosy BETANCOURT MD
[2017-08-27] MEDS: VANCOMYCIN 500 MG in DEXTROSE 5%-WATER - 100 ML IVPB SCH (12:59)
--- NOTE | 2017-08-27 13:42 | PN ---
Progress Note, Physician Chief Complaint: The patient seen in her bed. On Vent support. Awake, alert. Comfortable. History of Present Illness: 67 year old woman with PMhx of Chronic Respiratory failure on vent, COPD, Anemia , Afib, Hypothyrodism [place] and with hyponatremia and hypokalemia. - Current Medication List Current Medications: Active Medications Acetaminophen (Tylenol Suppository -) 650 mg [place] Q6H PRN PRN Reason: FEVER OR PAIN Last Admin: 08/26/17 23:43 Dose: 650 mg Albuterol/Ipratropium (Duoneb -) 1 amp NEB QIDR [facility] Last Admin: 08/27/17 11:10 Dose: 1 amp Amino Acids (Prosource No Carb Liquid Pkt) 30 ml PO BID@0800,1730 [facility] Last Admin: 08/27/17 09:00 Dose: Not Given Apixaban (Eliquis -) 5 mg PO BID [facility] Last Admin: 08/27/17 10:43 Dose: 5 mg Cholestyramine Resin (Questran Light Packet -) 4 gm PO DAILY [facility] Last Admin: 08/27/17 10:44 Dose: Not Given Collagenase (Santyl -) 1 applic TP DAILY [facility] Last Admin: 08/27/17 10:44 Dose: Not Given Diltiazem HCl (Cardizem Cd -) 120 mg PO DAILY [facility] Last Admin: 08/27/17 10:42 Dose: 120 mg Dextrose/Sodium Chloride (Dextrose 5%-Normal Saline+20 Meq Kcl -) 1,000 mls @ 60 mls/hr IV ASDIR [facility] Last Admin: 08/26/17 15:59 Dose: Not Given Cefepime HCl 1 gm/ Dextrose 100 mls @ 200 mls/hr IVPB BID [facility] Last Admin: 08/27/17 10:46 Dose: 200 mls/hr Vancomycin HCl 500 mg/ (Dextrose) 100 mls @ 100 mls/hr IVPB DAILY@1200 [facility] Last Admin: 08/27/17 12:59 Dose: 100 mls/hr Lactobacillus Acidophilus (Bacid -) 1 tab PO DAILY [facility] Last Admin: 08/27/17 10:42 Dose: 1 tab Levothyroxine Sodium (Synthroid Injection -) 50 mcg IM DAILY [facility] Last Admin: 08/27/17 13:29 Dose: Not Given Lorazepam (Ativan -) 0.5 mg PO Q8H PRN PRN Reason: ANXIETY Last Admin: 08/26/17 01:07 Dose: 0.5 mg Metronidazole (Flagyl -) 500 mg PO TID [facility] Last Admin: 08/27/17 06:22 Dose: 500 mg Nystatin (Nystop Powder -) 1 applic TP DAILY [facility] Last Admin: 08/26/17 10:07 Dose: Not Given Tamsulosin HCl (Flomax -) 0.4 mg PO DAILY@1730 [facility] Last Admin: 08/26/17 16:57 Dose: Not Given - Objective Vital Signs: Vital Signs Temperature 99.3 F 08/27/17 10:35 Pulse Rate 111 H 08/27/17 11:10 Respiratory Rate 17 08/27/17 11:10 Blood Pressure 120/60 08/27/17 10:35 O2 Sat by Pulse Oximetry (%) 99 08/27/17 11:10 Constitutional: Yes: No Distress, Pallor Eyes: Yes: Conjunctiva Clear Neck: Yes: Trachea Midline Respiratory: Yes: Regular, Mechanically Ventilated Gastrointestinal: Yes: Normal Bowel Sounds, Soft Edema: No Labs: CBC, BMP 08/26/17 07:12 08/26/17 07:12 INR, PTT INR 2.24 (0.82-1.09) H D 08/12/17 18:00 Problem List - Problems (1) Fever Code(s): R50.9 - FEVER, UNSPECIFIED Qualifiers: Fever type: unspecified Qualified Code(s): R50.9 - Fever, unspecified; R50.9 - Fever, unspecified (2) Hypokalemia Code(s): E87.6 - HYPOKALEMIA (3) Hyponatremia Code(s): E87.1 - HYPO-OSMOLALITY AND HYPONATREMIA (4) COPD (chronic obstructive pulmonary disease) Code(s): J44.9 - CHRONIC OBSTRUCTIVE PULMONARY DISEASE, UNSPECIFIED Qualifiers : COPD type: unspecified COPD Qualified Code(s): J44.9 - Chronic obstructive pulmonary disease, unspecified; J44.9 - Chronic obstructive pulmonary disease, unspecified; J44.9 - Chronic obstructive pulmonary disease, unspecified; J44.9 - Chronic obstructive pulmonary disease, unspecified (5) Chronic respiratory failure with hypoxia Code(s): J96.11 - CHRONIC RESPIRATORY FAILURE WITH HYPOXIA (6) Hypothyroid Code(s): E03.9 - HYPOTHYROIDISM, UNSPECIFIED Qualifiers: Hypothyroidism type: unspecified Qualified Code(s): E03.9 - Hypothyroidism, unspecified; E03.9 - Hypothyroidism, unspecified; E03.9 - Hypothyroidism, unspecified Assessment/Plan 67 year old female with PMhx of Chronic Respiratory failure on vent, COPD, Anemia, Afib, Hypothyrodism [place] and anemia and with hyponatremia and hypokalemia. #Hyponatremia Serum Na (133) stable on the current regiven of slow IV hydratio with Normal saline. Pt appears evolemic at the present time Would continue gentle IVF as pt remains febrile and on vent and thus has higher insensible losses Trend Na daily #Hypokalemia. Serum K in acceptable range. continue IVF with KCL trend Mg levels with goal > 2 #Sepsis/UTI/Cdiff continue Abx as per ID vent support Thank you. Yanna Barkley MD
[2017-08-27] MEDS ORDERED: ACETAMINOPHEN 1000 MG/100 ML VIAL (NON FORMULARY) IVPB PRN (15:32)
[2017-08-27] MEDS: D5-NS + 20 MEQ KCL - 1,000 ML IV SCH (16:45)
[2017-08-27] MEDS: LEVOTHYROXINE SODIUM 100 MCG VIAL IVPUSH SCH (16:53)
[2017-08-27] MEDS: ACETAMINOPHEN 325 MG TABLET (FP) PO PRN (18:12)
[2017-08-27] MEDS: TAMSULOSIN HCL 0.4 MG CAP.ER.24H (FP) PO SCH (18:13)
--- NOTE | 2017-08-27 19:33 | PN ---
Progress Note, Physician Chief Complaint: UTI, Fever History of Present Illness: [facility] poor appetite diarrhea IV abx- Nurses had hard time getting IV line, right arm swollen patient made DNR PO flagyl for diarrhea Wbc increased yesterday cdiff resent- positive for antigen seen by ID, pulmonary and nephrology CT chest showed possible malignant neoplasm in the mediastinum - Current Medication List Current Medications: Active Medications Acetaminophen (Tylenol -) 650 mg PO Q6H PRN PRN Reason: FEVER OR PAIN Last Admin: 08/27/17 18:12 Dose: 650 mg Albuterol/Ipratropium (Duoneb -) 1 amp NEB QIDR [facility] Last Admin: 08/27/17 17:02 Dose: 1 amp Amino Acids (Prosource No Carb Liquid Pkt) 30 ml PO BID@0800,1730 [facility] Last Admin: 08/27/17 18:13 Dose: Not Given Apixaban (Eliquis -) 5 mg PO BID [facility] Last Admin: 08/27/17 10:43 Dose: 5 mg Cholestyramine Resin (Questran Light Packet -) 4 gm PO DAILY [facility] Last Admin: 08/27/17 10:44 Dose: Not Given Collagenase (Santyl -) 1 applic TP DAILY [facility] Last Admin: 08/27/17 10:44 Dose: Not Given Diltiazem HCl (Cardizem Cd -) 120 mg PO DAILY [facility] Last Admin: 08/27/17 10:42 Dose: 120 mg Dextrose/Sodium Chloride (Dextrose 5%-Normal Saline+20 Meq Kcl -) 1,000 mls @ 60 mls/hr IV ASDIR [facility] Last Admin: 08/27/17 16:45 Dose: Not Given Cefepime HCl 1 gm/ Dextrose 100 mls @ 200 mls/hr IVPB BID [facility] Last Admin: 08/27/17 10:46 Dose: 200 mls/hr Vancomycin HCl 500 mg/ (Dextrose) 100 mls @ 100 mls/hr IVPB DAILY@1200 [facility] Last Admin: 08/27/17 12:59 Dose: 100 mls/hr Lactobacillus Acidophilus (Bacid -) 1 tab PO DAILY [facility] Last Admin: 08/27/17 10:42 Dose: 1 tab Levothyroxine Sodium (Synthroid Injection -) 25 mcg IVPUSH DAILY [facility] Last Admin: 08/27/17 16:53 Dose: 25 mcg Lorazepam (Ativan -) 0.5 mg PO Q8H PRN PRN Reason: ANXIETY Last Admin: 08/26/17 01:07 Dose: 0.5 mg Metronidazole (Flagyl -) 500 mg PO TID [facility] Last Admin: 08/27/17 14:48 Dose: 500 mg Nystatin (Nystop Powder -) 1 applic TP DAILY [facility] Last Admin: 08/27/17 10:45 Dose: Not Given Tamsulosin HCl (Flomax -) 0.4 mg PO DAILY@1730 [facility] Last Admin: 08/27/17 18:13 Dose: 0.4 mg - Objective Vital Signs: Vital Signs Temperature 102.7 F H 08/27/17 18:12 Pulse Rate 110 H 08/27/17 14:25 Respiratory Rate 16 08/27/17 18:02 Blood Pressure 157/87 08/27/17 14:25 O2 Sat by Pulse Oximetry (%) 99 08/27/17 11:10 Constitutional: Yes: Well Nourished, No Distress, Calm Cardiovascular: Yes: Regular Rate and Rhythm Respiratory: Yes: Mechanically Ventilated Edema: No Peripheral Pulses WNL: Yes Neurological: Yes: Alert, Oriented Psychiatric: Yes: Alert, Oriented Labs: CBC, BMP 08/26/17 07:12 08/26/17 07:12 INR, PTT INR 2.24 (0.82-1.09) H D 08/12/17 18:00 Problem List - Problems (1) Fever Assessment/Plan: -febrile this afternoon -IV abx -repeat CBC -tylenol for fever over 100.0F -repeat labs in AM -on PO flagyl for diarrhea Code(s): R50.9 - FEVER, UNSPECIFIED Qualifiers: Fever type: unspecified Qualified Code(s): R50.9 - Fever, unspecified; R50.9 - Fever, unspecified (2) Hematuria Assessment/Plan: -+3 urine in UA -seen by Urology -U/S bladder renal negative for hydronephrosis, shows large post voidal residual. -would technician chemical cleaning her a trial of alpha aric like tamsulosin Code(s): R31.9 - HEMATURIA, UNSPECIFIED Qualifiers: Hematuria type: unspecified type Qualified Code(s): R31.9 - Hematuria, unspecified; R31.9 - Hematuria, unspecified (3) Sacral decubitus ulcer, stage II Assessment/Plan: -seen by Vascular -offloading to the area -santyl -wound culture shows MRSA and VRE Code(s): L89.152 - PRESSURE ULCER OF SACRAL REGION, STAGE 2 (4) Systemic inflammatory response syndrome (SIRS) Assessment/Plan: -seen by ID -Tylenol for fever over 100.0F Code(s): R65.10 - SIRS OF NON-INFECTIOUS ORIGIN W/O ACUTE ORGAN DYSFUNCTION (5) A-fib Assessment/Plan: -Chronic -uncontrolled 2/2 to sepsis and fever -on Eliquis Code(s): I48.91 - UNSPECIFIED ATRIAL FIBRILLATION Qualifiers: Atrial fibrillation type: paroxysmal Qualified Code(s): I48.0 - Paroxysmal atrial fibrillation; I48.0 - Paroxysmal atrial fibrillation; I48.0 - Paroxysmal atrial fibrillation; I48.0 - Paroxysmal atrial fibrillation (6) Acute and chronic respiratory failure with hypoxia Assessment/Plan: -on mechanical vent -goes on Trach collar at the correction -poor prognosis knowing the existence of malignant neoplasm Code(s): J96.21 - ACUTE AND CHRONIC RESPIRATORY FAILURE WITH HYPOXIA Assessment/Plan see problem list.
[2017-08-28] MEDS: ALBUTEROL SO4 2.5/IPRATROPIUM 0.5 INH SOL 3 ML VIAL.NEB. NEB SCH ×5 (00:24→23:07)
[2017-08-28] MEDS: metroNIDAZOLE 250 MG TABLET PO SCH ×3 (06:30→22:24)
[2017-08-28 07:59] LABS: ALBUMIN 1.8 g/dl (3.4-5.0); ALK PHOS 97 U/L (45-117); ANION GAP 7 (8-16); BILIRUBIN,TOTAL 0.5 mg/dL (0.2-1.0); CALCIUM 7.7 mg/dL (8.5-10.1); CO2 23 mmol/L (21-32); CREATININE 0.3 mg/dL (0.55-1.02); GLUCOSE,RANDOM 122 mg/dL (74-106); SGPT/ALT 6 U/L (12-78); TOT PROT 4.9 g/dl (6.4-8.2)
[2017-08-28 08:30] LABS: SGOT/AST 4 U/L (15-37)
--- NOTE | 2017-08-28 10:38 | PN ---
Progress Note (short form) - Note Progress Note: Chief Complaint: Events noted, notes reviewed, denies any chest pain, no distress History of Present Illness: Seen and examined. Events noted, notes reviewed, denies any chest pain, no distress Medications: Current Medications Acetaminophen (Tylenol -) 650 mg PO Q6H PRN PRN Reason: FEVER OR PAIN Last Admin: 08/27/17 18:12 Dose: 650 mg Albuterol/Ipratropium (Duoneb -) 1 amp NEB QIDR [facility] Last Admin: 08/28/17 06:23 Dose: 1 amp Amino Acids (Prosource No Carb Liquid Pkt) 30 ml PO BID@0800,1730 [facility] Last Admin: 08/27/17 18:13 Dose: Not Given Apixaban (Eliquis -) 5 mg PO BID [facility] Last Admin: 08/27/17 22:26 Dose: 5 mg Cholestyramine Resin (Questran Light Packet -) 4 gm PO DAILY [facility] Last Admin: 08/27/17 10:44 Dose: Not Given Collagenase (Santyl -) 1 applic TP DAILY [facility] Last Admin: 08/27/17 10:44 Dose: Not Given Diltiazem HCl (Cardizem Cd -) 120 mg PO DAILY [facility] Last Admin: 08/27/17 10:42 Dose: 120 mg Dextrose/Sodium Chloride (Dextrose 5%-Normal Saline+20 Meq Kcl -) 1,000 mls @ 60 mls/hr IV ASDIR [facility] Last Admin: 08/27/17 16:45 Dose: Not Given Cefepime HCl 1 gm/ Dextrose 100 mls @ 200 mls/hr IVPB BID [facility] Last Admin: 08/27/17 22:29 Dose: 200 mls/hr Vancomycin HCl 500 mg/ (Dextrose) 100 mls @ 100 mls/hr IVPB DAILY@1200 [facility] Last Admin: 08/27/17 12:59 Dose: 100 mls/hr Lactobacillus Acidophilus (Bacid -) 1 tab PO DAILY [facility] Last Admin: 08/27/17 10:42 Dose: 1 tab Levothyroxine Sodium (Synthroid Injection -) 25 mcg IVPUSH DAILY [facility] Last Admin: 08/27/17 16:53 Dose: 25 mcg Lorazepam (Ativan -) 0.5 mg PO Q8H PRN PRN Reason: ANXIETY Last Admin: 08/26/17 01:07 Dose: 0.5 mg Metronidazole (Flagyl -) 500 mg PO TID [facility] Last Admin: 08/28/17 06:30 Dose: 500 mg Nystatin (Nystop Powder -) 1 applic TP DAILY [facility] Last Admin: 08/27/17 10:45 Dose: Not Given Tamsulosin HCl (Flomax -) 0.4 mg PO DAILY@1730 [facility] Last Admin: 08/27/17 18:13 Dose: 0.4 mg Vital Signs: Last Vital Signs Temp Pulse Resp BP Pulse Ox 99.0 F 111 H 16 115/58 99 08/28/17 06:00 08/28/17 06:00 08/28/17 06:00 08/28/17 06:00 08/28/17 01:05 Intake & Output 08/25/17 08/26/17 08/27/17 08/28/17 23:59 23:59 23:59 23:59 Intake Total 1810 1340 2220 460 Output Total 180 Balance 1630 1340 2220 460 Weight 91 lb Constitutional: No Distress, Calm Neck: Supple Negative JVD No Bruit Respiratory: Bilateral Scattered Rhonchi Cardiovascular: S1 S2 Regular Rate and Rhythm Gastrointestinal: Soft Benign Normal Bowel Sounds Ext: No Edema Labs: CBC, BMP 08/26/17 07:12 08/28/17 06:10 Hepatic Panel Total Bilirubin 0.5 mg/dL (0.2-1.0) D 08/28/17 06:10 AST 4 U/L (15-37) L D 08/28/17 06:10 ALT 6 U/L (12-78) L 08/28/17 06:10 Alkaline Phosphatase 97 U/L (45-117) 08/28/17 06:10 Albumin 1.8 g/dl (3.4-5.0) L 08/28/17 06:10 Assessment/Plan ASSESSMENT: 1. Fever of unknown origin 2. COPD with acute on chronic hypoxic/hypercapneic respiratory failure post tracheostomy 3. Diastolic LV dysfunction with class I NYHA classification LV congestive heart failure, compensated/euvolemic 4. Paroxysmal Atrial Fibrillation/atrial tachycardia on NOAC's, [id number] score of 4 5. HTN 6. Hypothyroidism 7. History of C. Difficile Colitis 8. History of MARLYN, resolved 9. Anemia post transfusion PLAN: 1. Continue Cardizem CD 2. As outlined in prior note to resume Valsartan therapy unless it is absolutely contraindicated with close monitoring of renal function, initiate at 40 mg daily 3. Continue Eliquis 4. Transfuse prn to maintain Hgb > 8.0 5. Antibiotics as per the primary team Kristi Hardwick M.D.
[2017-08-28] MEDS ORDERED: PT OWN MED DRAWER 7, Y5N ONE ×3 (10:58→17:47)
[2017-08-28] MEDS: CEFEPIME 1 GM in DEXTROSE 5%-WATER - 100 ML IVPB SCH ×2 (11:01→22:23)
[2017-08-28] MEDS: LACTOBACILLUS ACIDOPHILUS 1 EACH TAB (FP) PO SCH (11:20)
[2017-08-28] MEDS: APIXABAN 5 MG TABLET PO SCH ×2 (11:21→22:24)
[2017-08-28] MEDS: CHOLESTYRAMINE/ASPARTAME 4 GM PACKET PO SCH (11:21)
[2017-08-28] MEDS: LEVOTHYROXINE SODIUM 100 MCG VIAL IVPUSH SCH ×2 (11:22→11:45)
[2017-08-28] MEDS: AMINO ACIDS/PROTEIN HYDROLYS 30 ML LIQUID.PKT PO SCH ×2 (11:25→17:44)
[2017-08-28] MEDS: NYSTATIN POWDER 100,000 UNITS/GM - 15 GM TOPICAL POWDER TP SCH (11:30)
--- NOTE | 2017-08-28 12:12 | PN ---
Progress Note (short form) - Note Progress Note: PULMONARY LOW GRADE TEMP TODAY AWAKE /ALERT TRYING TO SPEAK AROUND TRACH PALE/ANICTERIC DIMINISHED WITH POOR INSPIRATORY SOUNDS/LEFT ANTERIOR WHEEZE S1S2 IRREGULAR BS+ LEFT HAND EDEMA 2/2 IV INFILTRATION/RADIAL PULSE IS STRONG LABS/MEDS/NOTES/IMAGES/VENT SETTING/ABG REVIEWED IMP ACUTE ON CHRONIC HYPOXEMIC/HYPERCAPNEIC RESPIRATORY FAILURE INVASIVE MEDIASTINAL MASS FEVER ANEMIA COPD AFIB HEMATURIA DIASTOLIC HF PLAN CONTINUE CURRENT VENT SETTINGS NEED TO DETERMINE GOALS OF CARE INHALED BRONCHODILATORS NORMAL TRANSFUSION THRESHOLDS ANTIBIOTICS PER ID OVERALL PROGNOSIS IS POOR LOCAL CARE TO LEFT HAND Rosy BETANCOURT MD
[2017-08-28 13:49] LABS: BASOPHIL 0.2 % (0-2.0); EOSINOPHIL 1.8 % (0-4.5); MCHC 32.8 g/dl (32.0-36.0); MEAN CELL VOLUME 88.6 fl (80-96); NEUTROPHILS 72.2 % (42.8-82.8); PLATELET COUNT 366 K/MM3 (134-434); RDW 16.4 % (11.6-15.6); WHITE BLOOD COUNT 10.8 K/mm3 (4.0-10.0)
--- NOTE | 2017-08-28 14:16 | PN ---
Progress Note, Physician Chief Complaint: The patient seen in her bed. On Vent support. Awake, alert. Comfortable. History of Present Illness: 67 year old woman with PMhx of Chronic Respiratory failure on vent, COPD, Anemia , Afib, Hypothyrodism who presented from the [place] with fever and anemia and with hyponatremia and hypokalemia. - Current Medication List Current Medications: Active Medications Acetaminophen (Tylenol -) 650 mg PO Q6H PRN PRN Reason: FEVER OR PAIN Last Admin: 08/27/17 18:12 Dose: 650 mg Albuterol/Ipratropium (Duoneb -) 1 amp NEB QIDR [facility] Last Admin: 08/28/17 11:30 Dose: 1 amp Amino Acids (Prosource No Carb Liquid Pkt) 30 ml PO BID@0800,1730 [facility] Last Admin: 08/28/17 11:25 Dose: Not Given Apixaban (Eliquis -) 5 mg PO BID [facility] Last Admin: 08/28/17 11:21 Dose: 5 mg Cholestyramine Resin (Questran Light Packet -) 4 gm PO DAILY [facility] Last Admin: 08/28/17 11:21 Dose: Not Given Collagenase (Santyl -) 1 applic TP DAILY [facility] Last Admin: 08/27/17 10:44 Dose: Not Given Diltiazem HCl (Cardizem Cd -) 120 mg PO DAILY [facility] Last Admin: 08/28/17 11:21 Dose: 120 mg Dextrose/Sodium Chloride (Dextrose 5%-Normal Saline+20 Meq Kcl -) 1,000 mls @ 60 mls/hr IV ASDIR [facility] Last Admin: 08/27/17 16:45 Dose: Not Given Cefepime HCl 1 gm/ Dextrose 100 mls @ 200 mls/hr IVPB BID [facility] Last Admin: 08/28/17 11:01 Dose: 200 mls/hr Vancomycin HCl 500 mg/ (Dextrose) 100 mls @ 100 mls/hr IVPB DAILY@1200 [facility] Last Admin: 08/27/17 12:59 Dose: 100 mls/hr Lactobacillus Acidophilus (Bacid -) 1 tab PO DAILY [facility] Last Admin: 08/28/17 11:20 Dose: 1 tab Levothyroxine Sodium (Synthroid Injection -) 25 mcg IVPUSH DAILY [facility] Last Admin: 08/28/17 11:00 Dose: Not Given Lorazepam (Ativan -) 0.5 mg PO Q8H PRN PRN Reason: ANXIETY Last Admin: 08/26/17 01:07 Dose: 0.5 mg Metronidazole (Flagyl -) 500 mg PO TID [facility] Last Admin: 08/28/17 13:49 Dose: 500 mg Nystatin (Nystop Powder -) 1 applic TP DAILY [facility] Last Admin: 08/27/17 10:45 Dose: Not Given Tamsulosin HCl (Flomax -) 0.4 mg PO DAILY@1730 [facility] Last Admin: 08/27/17 18:13 Dose: 0.4 mg - Objective Vital Signs: Vital Signs Temperature 100.8 F H 08/28/17 11:20 Pulse Rate 114 H 08/28/17 11:29 Respiratory Rate 17 08/28/17 11:20 Blood Pressure 116/51 08/28/17 11:20 O2 Sat by Pulse Oximetry (%) 98 08/28/17 11:29 Constitutional: Yes: No Distress, Pallor Eyes: Yes: Conjunctiva Clear Neck: Yes: Supple Cardiovascular: Yes: S1, S2 Respiratory: Yes: Mechanically Ventilated Gastrointestinal: Yes: Normal Bowel Sounds, Soft Labs: CBC, BMP 08/28/17 13:40 08/28/17 06:10 INR, PTT INR 2.24 (0.82-1.09) H D 08/12/17 18:00 Problem List - Problems (1) Fever Code(s): R50.9 - FEVER, UNSPECIFIED Qualifiers: Fever type: unspecified Qualified Code(s): R50.9 - Fever, unspecified; R50.9 - Fever, unspecified (2) Hypokalemia Code(s): E87.6 - HYPOKALEMIA (3) Hyponatremia Code(s): E87.1 - HYPO-OSMOLALITY AND HYPONATREMIA (4) COPD (chronic obstructive pulmonary disease) Code(s): J44.9 - CHRONIC OBSTRUCTIVE PULMONARY DISEASE, UNSPECIFIED Qualifiers : COPD type: unspecified COPD Qualified Code(s): J44.9 - Chronic obstructive pulmonary disease, unspecified; J44.9 - Chronic obstructive pulmonary disease, unspecified; J44.9 - Chronic obstructive pulmonary disease, unspecified; J44.9 - Chronic obstructive pulmonary disease, unspecified (5) Chronic respiratory failure with hypoxia Code(s): J96.11 - CHRONIC RESPIRATORY FAILURE WITH HYPOXIA (6) Hypothyroid Code(s): E03.9 - HYPOTHYROIDISM, UNSPECIFIED Qualifiers: Hypothyroidism type: unspecified Qualified Code(s): E03.9 - Hypothyroidism, unspecified; E03.9 - Hypothyroidism, unspecified; E03.9 - Hypothyroidism, unspecified Assessment/Plan 67 year old female with PMhx of Chronic Respiratory failure on vent, COPD, Anemia, Afib, Hypothyrodism who presented from the [place] with fever and anemia and with hyponatremia and hypokalemia. #Hyponatremia Serum Na (134) stable on the current regiven of slow IV hydration with Normal saline. Pt appears evolemic at the present time Would continue gentle IVF as pt remains febrile and on vent and thus has higher insensible losses Trend Na daily Hypokalemia. Serum K in acceptable range. #Sepsis/UTI/ C. diff continue Abx as per ID Vent support Thank you. Yanna Barkley MD
[2017-08-28] MEDS: COLLAGENASE CLOSTRIDIUM HIST. 30 GRAMS TUBE TP SCH (17:43)
[2017-08-28] MEDS: VANCOMYCIN 500 MG in DEXTROSE 5%-WATER - 100 ML IVPB SCH (17:43)
[2017-08-28] MEDS: D5-NS + 20 MEQ KCL - 1,000 ML IV SCH (17:44)
[2017-08-28] MEDS: TAMSULOSIN HCL 0.4 MG CAP.ER.24H (FP) PO SCH (19:09)
--- NOTE | 2017-08-28 21:01 | PN ---
Progress Note, Physician Chief Complaint: UTI, Fever History of Present Illness: NAD, on mech vent was febrile earlier poor appetite diarrhea no IV access, BLUE swelling PO flagyl for diarrhea cdiff resent- positive for antigen seen by ID, cardiology, pulmonary and nephrology CT chest showed possible malignant neoplasm in the mediastinum - Current Medication List Current Medications: Active Medications Acetaminophen (Tylenol -) 650 mg PO Q6H PRN PRN Reason: FEVER OR PAIN Last Admin: 08/27/17 18:12 Dose: 650 mg Albuterol/Ipratropium (Duoneb -) 1 amp NEB QIDR [facility] Last Admin: 08/28/17 18:07 Dose: 1 amp Amino Acids (Prosource No Carb Liquid Pkt) 30 ml PO BID@0800,1730 [facility] Last Admin: 08/28/17 17:44 Dose: Not Given Apixaban (Eliquis -) 5 mg PO BID [facility] Last Admin: 08/28/17 11:21 Dose: 5 mg Cholestyramine Resin (Questran Light Packet -) 4 gm PO DAILY [facility] Last Admin: 08/28/17 11:21 Dose: Not Given Collagenase (Santyl -) 1 applic TP DAILY [facility] Last Admin: 08/28/17 17:43 Dose: Not Given Diltiazem HCl (Cardizem Cd -) 120 mg PO DAILY [facility] Last Admin: 08/28/17 11:21 Dose: 120 mg Dextrose/Sodium Chloride (Dextrose 5%-Normal Saline+20 Meq Kcl -) 1,000 mls @ 60 mls/hr IV ASDIR [facility] Last Admin: 08/28/17 17:44 Dose: Not Given Cefepime HCl 1 gm/ Dextrose 100 mls @ 200 mls/hr IVPB BID [facility] Last Admin: 08/28/17 11:01 Dose: 200 mls/hr Vancomycin HCl 500 mg/ (Dextrose) 100 mls @ 100 mls/hr IVPB DAILY@1200 [facility] Last Admin: 08/28/17 17:43 Dose: Not Given Lactobacillus Acidophilus (Bacid -) 1 tab PO DAILY [facility] Last Admin: 08/28/17 11:20 Dose: 1 tab Levothyroxine Sodium (Synthroid Injection -) 25 mcg IVPUSH DAILY [facility] Last Admin: 08/28/17 11:00 Dose: Not Given Metronidazole (Flagyl -) 500 mg PO TID [facility] Last Admin: 08/28/17 13:49 Dose: 500 mg Nystatin (Nystop Powder -) 1 applic TP DAILY [facility] Last Admin: 08/28/17 11:30 Dose: 1 applic Tamsulosin HCl (Flomax -) 0.4 mg PO DAILY@1730 [facility] Last Admin: 08/28/17 19:09 Dose: 0.4 mg - Objective Vital Signs: Vital Signs Temperature 100.2 F H 08/28/17 18:00 Pulse Rate 117 H 08/28/17 18:00 Respiratory Rate 14 08/28/17 18:07 Blood Pressure 109/56 08/28/17 18:00 O2 Sat by Pulse Oximetry (%) 98 08/28/17 11:29 Constitutional: Yes: No Distress, Calm, Thin Cardiovascular: Yes: Regular Rate and Rhythm Respiratory: Yes: Regular Gastrointestinal: Yes: Normal Bowel Sounds Edema: Yes Edema: LUE: 1+, RUE: 1+ Peripheral Pulses WNL: Yes Neurological: Yes: Alert, Oriented Psychiatric: Yes: Alert, Oriented Labs: CBC, BMP 08/28/17 13:40 08/28/17 06:10 INR, PTT INR 2.24 (0.82-1.09) H D 08/12/17 18:00 Problem List - Problems (1) Fever Assessment/Plan: -febrile this afternoon -no IV access for IV abx, TL requested -repeat CBC -tylenol for fever over 100.0F -repeat labs in AM -on PO flagyl for diarrhea Code(s): R50.9 - FEVER, UNSPECIFIED Qualifiers: Fever type: unspecified Qualified Code(s): R50.9 - Fever, unspecified; R50.9 - Fever, unspecified (2) Hematuria Assessment/Plan: -+3 urine in UA -seen by Urology -U/S bladder renal negative for hydronephrosis, shows large post voidal residual. -tamsulosin Code(s): R31.9 - HEMATURIA, UNSPECIFIED Qualifiers: Hematuria type: unspecified type Qualified Code(s): R31.9 - Hematuria, unspecified; R31.9 - Hematuria, unspecified (3) Sacral decubitus ulcer, stage II Assessment/Plan: -seen by Vascular -offloading to the area -santyl -wound culture shows MRSA and VRE Code(s): L89.152 - PRESSURE ULCER OF SACRAL REGION, STAGE 2 (4) Systemic inflammatory response syndrome (SIRS) Assessment/Plan: -seen by ID -Tylponcho for fever over 100.0F Code(s): R65.10 - SIRS OF NON-INFECTIOUS ORIGIN W/O ACUTE ORGAN DYSFUNCTION (5) A-fib Assessment/Plan: -Chronic -uncontrolled 2/2 to sepsis and fever -on Eliquis Code(s): I48.91 - UNSPECIFIED ATRIAL FIBRILLATION Qualifiers: Atrial fibrillation type: paroxysmal Qualified Code(s): I48.0 - Paroxysmal atrial fibrillation; I48.0 - Paroxysmal atrial fibrillation; I48.0 - Paroxysmal atrial fibrillation; I48.0 - Paroxysmal atrial fibrillation (6) Acute and chronic respiratory failure with hypoxia Assessment/Plan: -on mechanical vent -poor prognosis knowing the existence of malignant neoplasm Code(s): J96.21 - ACUTE AND CHRONIC RESPIRATORY FAILURE WITH HYPOXIA Assessment/Plan see problem list.
[2017-08-28] MEDS ORDERED: TRIPLE LUMEN FLUSH 4 ML ML IVPUSH PRN (22:13)
[2017-08-29] MEDS: metroNIDAZOLE 250 MG TABLET PO SCH ×3 (05:13→22:58)
[2017-08-29] MEDS: ALBUTEROL SO4 2.5/IPRATROPIUM 0.5 INH SOL 3 ML VIAL.NEB. NEB SCH ×3 (06:58→17:10)
[2017-08-29 07:37] LABS: BASOPHIL 0.9 % (0-2.0); EOSINOPHIL 1.7 % (0-4.5); MCH 29.2 pg (25.7-33.7); MCHC 33.6 g/dl (32.0-36.0); MEAN PLT VOLUME 7.8 fl (7.5-11.1); NEUTROPHILS 71.6 % (42.8-82.8); PLATELET COUNT 350 K/MM3 (134-434); RDW 16.2 % (11.6-15.6)
[2017-08-29] MEDS: LEVOTHYROXINE SODIUM 100 MCG VIAL IVPUSH SCH ×2 (10:00→13:49)
--- NOTE | 2017-08-29 10:07 | PN ---
Progress Note, Physician Chief Complaint: no iv access sister to come and sign DNR arms swollen to get Doppler at bedside to r/o dvt low grade temp last night 100.4 - Current Medication List Current Medications: Active Medications Acetaminophen (Tylenol -) 650 mg PO Q6H PRN PRN Reason: FEVER OR PAIN Last Admin: 08/27/17 18:12 Dose: 650 mg Albuterol/Ipratropium (Duoneb -) 1 amp NEB QIDR [facility] Last Admin: 08/29/17 06:58 Dose: 1 amp Amino Acids (Prosource No Carb Liquid Pkt) 30 ml PO BID@0800,1730 [facility] Last Admin: 08/28/17 17:44 Dose: Not Given Apixaban (Eliquis -) 5 mg PO BID [facility] Last Admin: 08/28/17 22:24 Dose: 5 mg Cholestyramine Resin (Questran Light Packet -) 4 gm PO DAILY [facility] Last Admin: 08/28/17 11:21 Dose: Not Given Collagenase (Santyl -) 1 applic TP DAILY [facility] Last Admin: 08/28/17 17:43 Dose: Not Given Diltiazem HCl (Cardizem Cd -) 120 mg PO DAILY [facility] Last Admin: 08/28/17 11:21 Dose: 120 mg IV Flush (Triple Lumen Flush) 4 ml IVPUSH PRN PRN PRN Reason: Protocol Dextrose/Sodium Chloride (Dextrose 5%-Normal Saline+20 Meq Kcl -) 1,000 mls @ 60 mls/hr IV ASDIR [facility] Last Admin: 08/28/17 17:44 Dose: Not Given Cefepime HCl 1 gm/ Dextrose 100 mls @ 200 mls/hr IVPB BID [facility] Last Admin: 08/28/17 22:23 Dose: Not Given Vancomycin HCl 500 mg/ (Dextrose) 100 mls @ 100 mls/hr IVPB DAILY@1200 [facility] Last Admin: 08/28/17 17:43 Dose: Not Given Lactobacillus Acidophilus (Bacid -) 1 tab PO DAILY [facility] Last Admin: 08/28/17 11:20 Dose: 1 tab Levothyroxine Sodium (Synthroid Injection -) 25 mcg IVPUSH DAILY [facility] Last Admin: 08/28/17 11:45 Dose: Not Given Metronidazole (Flagyl -) 500 mg PO TID [facility] Last Admin: 08/29/17 05:13 Dose: 500 mg Nystatin (Nystop Powder -) 1 applic TP DAILY [facility] Last Admin: 08/28/17 11:30 Dose: 1 applic Tamsulosin HCl (Flomax -) 0.4 mg PO DAILY@1730 [facility] Last Admin: 08/28/17 19:09 Dose: 0.4 mg - Objective Vital Signs: Vital Signs Temperature 98.8 F 08/29/17 06:00 Pulse Rate 111 H 08/29/17 06:00 Respiratory Rate 16 08/29/17 07:14 Blood Pressure 117/60 08/29/17 06:00 O2 Sat by Pulse Oximetry (%) 98 08/28/17 22:18 Constitutional: Yes: Calm, Thin, Other (pale) Neck: Yes: Trachea Midline, Other (trach) Cardiovascular: Yes: Pulse Irregular, S1, S2 Respiratory: Yes: Diminished Gastrointestinal: Yes: Soft Edema: Yes Edema: LUE: 1+, RUE: 1+ Labs: CBC, BMP 08/29/17 07:15 08/28/17 06:10 INR, PTT INR 2.24 (0.82-1.09) H D 08/12/17 18:00 Problem List - Problems (1) Fever Assessment/Plan: spoke to lianne the sister who is HCP she wants to sign DNR and do comfort care will come in today to sign the papers 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 08/25/17 10:27 Blood - Peripheral Venous Blood Culture - Preliminary NO GROWTH OBTAINED AFTER 24 HOURS, INCUBATION TO CONTINUE FOR 4 DAYS. fever ?secondary to mass- unclear but will give iv abx for now d/w sister lianne in detail about this new development and weight loss and decline in health Code(s): R50.9 - FEVER, UNSPECIFIED Qualifiers: Fever type: unspecified Qualified Code(s): R50.9 - Fever, unspecified; R50.9 - Fever, unspecified (2) A-fib Assessment/Plan: cardizem for rate control eliquis Code(s): I48.91 - UNSPECIFIED ATRIAL FIBRILLATION Qualifiers: Atrial fibrillation type: paroxysmal Qualified Code(s): I48.0 - Paroxysmal atrial fibrillation; I48.0 - Paroxysmal atrial fibrillation; I48.0 - Paroxysmal atrial fibrillation; I48.0 - Paroxysmal atrial fibrillation (3) Acute on chronic respiratory failure with hypoxia and hypercapnia Assessment/Plan: vent support bronchodilators chest ct noted for soft tissue mass family to decide goals of care Code(s): J96.21 - ACUTE AND CHRONIC RESPIRATORY FAILURE WITH HYPOXIA J96.22 - ACUTE AND CHRONIC RESPIRATORY FAILURE WITH HYPERCAPNIA (4) Diastolic heart failure Assessment/Plan: unable to take all the oral meds Code(s): I50.30 - UNSPECIFIED DIASTOLIC (CONGESTIVE) HEART FAILURE Qualifiers : Heart failure chronicity: chronic Qualified Code(s): I50.32 - Chronic diastolic (congestive) heart failure; I50.32 - Chronic diastolic ( congestive) heart failure; I50.32 - Chronic diastolic (congestive) heart failure ; I50.32 - Chronic diastolic (congestive) heart failure (5) Anemia Assessment/Plan: stable h/h s/p prbc ferrous sulfate discontinue bc unable to take meds Code(s): D64.9 - ANEMIA, UNSPECIFIED Qualifiers: Anemia type: unspecified type Qualified Code(s): D64.9 - Anemia, unspecified; D64.9 - Anemia, unspecified (6) Diarrhea Assessment/Plan: Microbiology 08/23/17 08:30 Stool Clostridium difficile Antigen (TEDDY) - Final 08/23/17 08:30 Stool Clostridium difficile Toxin Assay - Final 07/19/17 21:00 Sputum - Endotrachea Suction/Ventilator Gram Stain - Final 07/19/17 21:00 Sputum - Endotrachea Suction/Ventilator Sputum Culture - Final Beta Hem Streptococcus Group G Providencia Stuartii Diphtheroid/Corynebacterium on flagyl day 7 Code(s): R19.7 - DIARRHEA, UNSPECIFIED Qualifiers: Diarrhea type: unspecified type Qualified Code(s): R19.7 - Diarrhea , unspecified; R19.7 - Diarrhea, unspecified (7) Hypokalemia due to loss of potassium Assessment/Plan: K is ok will check Magnesium today Code(s): E87.6 - HYPOKALEMIA (8) Acute and chronic respiratory failure with hypoxia Code(s): J96.21 - ACUTE AND CHRONIC RESPIRATORY FAILURE WITH HYPOXIA (9) Decrease in appetite Assessment/Plan: spoke tyo sister myron who is HCP she said DNR comfort care no j tube Code(s): R63.0 - ANOREXIA (10) Hypothyroid Assessment/Plan: synthroid IV tsh noted Code(s): E03.9 - HYPOTHYROIDISM, UNSPECIFIED Qualifiers: Hypothyroidism type: unspecified Qualified Code(s): E03.9 - Hypothyroidism, unspecified; E03.9 - Hypothyroidism, unspecified; E03.9 - Hypothyroidism, unspecified Assessment/Plan sharona arms: bedside doppler ID Fu regarding duration of abx sister to come today to sign DNR and comfort care papers
[2017-08-29] MEDS: AMINO ACIDS/PROTEIN HYDROLYS 30 ML LIQUID.PKT PO SCH (10:17)
[2017-08-29] MEDS: CHOLESTYRAMINE/ASPARTAME 4 GM PACKET PO SCH (10:17)
--- NOTE | 2017-08-29 10:28 | PN ---
Progress Note, Physician History of Present Illness: Low grade fevers, resting comfortably on vent. - Current Medication List Current Medications: Active Medications Acetaminophen (Tylenol -) 650 mg PO Q6H PRN PRN Reason: FEVER OR PAIN Last Admin: 08/27/17 18:12 Dose: 650 mg Albuterol/Ipratropium (Duoneb -) 1 amp NEB QIDR [facility] Last Admin: 08/29/17 06:58 Dose: 1 amp Apixaban (Eliquis -) 5 mg PO BID [facility] Last Admin: 08/28/17 22:24 Dose: 5 mg Collagenase (Santyl -) 1 applic TP DAILY [facility] Last Admin: 08/28/17 17:43 Dose: Not Given Diltiazem HCl (Cardizem Cd -) 120 mg PO DAILY [facility] Last Admin: 08/28/17 11:21 Dose: 120 mg IV Flush (Triple Lumen Flush) 4 ml IVPUSH PRN PRN PRN Reason: Protocol Dextrose/Sodium Chloride (Dextrose 5%-Normal Saline+20 Meq Kcl -) 1,000 mls @ 60 mls/hr IV ASDIR [facility] Last Admin: 08/28/17 17:44 Dose: Not Given Cefepime HCl 1 gm/ Dextrose 100 mls @ 200 mls/hr IVPB BID [facility] Last Admin: 08/28/17 22:23 Dose: Not Given Vancomycin HCl 500 mg/ (Dextrose) 100 mls @ 100 mls/hr IVPB DAILY@1200 [facility] Last Admin: 08/28/17 17:43 Dose: Not Given Lactobacillus Acidophilus (Bacid -) 1 tab PO DAILY [facility] Last Admin: 08/28/17 11:20 Dose: 1 tab Levothyroxine Sodium (Synthroid Injection -) 25 mcg IVPUSH DAILY [facility] Last Admin: 08/28/17 11:45 Dose: Not Given Metronidazole (Flagyl -) 500 mg PO TID [facility] Last Admin: 08/29/17 05:13 Dose: 500 mg Nystatin (Nystop Powder -) 1 applic TP DAILY [facility] Last Admin: 08/28/17 11:30 Dose: 1 applic Tamsulosin HCl (Flomax -) 0.4 mg PO DAILY@1730 [facility] Last Admin: 08/28/17 19:09 Dose: 0.4 mg - Objective Vital Signs: Vital Signs Temperature 98.8 F 08/29/17 06:00 Pulse Rate 111 H 08/29/17 06:00 Respiratory Rate 16 08/29/17 07:14 Blood Pressure 117/60 08/29/17 06:00 O2 Sat by Pulse Oximetry (%) 98 08/28/17 22:18 Constitutional: Yes: No Distress, Calm Neck: Yes: Supple Cardiovascular: Yes: Regular Rate and Rhythm Respiratory: Yes: Diminished, Mechanically Ventilated, Rhonchi Gastrointestinal: Yes: Normal Bowel Sounds, Soft Edema: No Labs: CBC, BMP 08/29/17 07:15 08/28/17 06:10 INR, PTT INR 2.24 (0.82-1.09) H D 08/12/17 18:00 Problem List - Problems (1) Fever Code(s): R50.9 - FEVER, UNSPECIFIED Qualifiers: Fever type: unspecified Qualified Code(s): R50.9 - Fever, unspecified; R50.9 - Fever, unspecified (2) Hematuria Code(s): R31.9 - HEMATURIA, UNSPECIFIED Qualifiers: Hematuria type: unspecified type Qualified Code(s): R31.9 - Hematuria, unspecified; R31.9 - Hematuria, unspecified (3) Acute on chronic respiratory failure with hypoxia and hypercapnia Code(s): J96.21 - ACUTE AND CHRONIC RESPIRATORY FAILURE WITH HYPOXIA J96.22 - ACUTE AND CHRONIC RESPIRATORY FAILURE WITH HYPERCAPNIA (4) COPD (chronic obstructive pulmonary disease) Code(s): J44.9 - CHRONIC OBSTRUCTIVE PULMONARY DISEASE, UNSPECIFIED Qualifiers : COPD type: unspecified COPD Qualified Code(s): J44.9 - Chronic obstructive pulmonary disease, unspecified; J44.9 - Chronic obstructive pulmonary disease, unspecified; J44.9 - Chronic obstructive pulmonary disease, unspecified; J44.9 - Chronic obstructive pulmonary disease, unspecified (5) Diastolic heart failure Code(s): I50.30 - UNSPECIFIED DIASTOLIC (CONGESTIVE) HEART FAILURE Qualifiers : Heart failure chronicity: chronic Qualified Code(s): I50.32 - Chronic diastolic (congestive) heart failure; I50.32 - Chronic diastolic ( congestive) heart failure; I50.32 - Chronic diastolic (congestive) heart failure ; I50.32 - Chronic diastolic (congestive) heart failure (6) Hypothyroid Code(s): E03.9 - HYPOTHYROIDISM, UNSPECIFIED Qualifiers: Hypothyroidism type: unspecified Qualified Code(s): E03.9 - Hypothyroidism, unspecified; E03.9 - Hypothyroidism, unspecified; E03.9 - Hypothyroidism, unspecified (7) Tracheostomy dependence Code(s): Z93.0 - TRACHEOSTOMY STATUS (8) UTI (urinary tract infection) Code(s): N39.0 - URINARY TRACT INFECTION, SITE NOT SPECIFIED Qualifiers: Urinary tract infection type: site unspecified Hematuria presence: with hematuria Qualified Code(s): N39.0 - Urinary tract infection, site not specified; N39.0 - Urinary tract infection, site not specified; R31.9 - Hematuria, unspecified; R31.9 - Hematuria, unspecified (9) A-fib Code(s): I48.91 - UNSPECIFIED ATRIAL FIBRILLATION Qualifiers: Atrial fibrillation type: paroxysmal Qualified Code(s): I48.0 - Paroxysmal atrial fibrillation; I48.0 - Paroxysmal atrial fibrillation; I48.0 - Paroxysmal atrial fibrillation; I48.0 - Paroxysmal atrial fibrillation (10) Anticoagulant long-term use Code(s): Z79.01 - BRIEFCASE SEWER (CURRENT) USE OF ANTICOAGULANTS (11) Mediastinal mass Code(s): J98.59 - OTHER DISEASES OF MEDIASTINUM, NOT ELSEWHERE CLASSIFIED Assessment/Plan Echo 09/09/2015: nl LV/EF, nl RV, mild MR 1. 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 COPD with acute on chronic hypoxic/hypercapneic respiratory failure post tracheostomy 3. Diastolic LV dysfunction with class I NYHA classification LV congestive heart failure, compensated/euvolemic 4. Paroxysmal Atrial Fibrillation/atrial tachycardia on NOAC's, [id number] score of 4 5. HTN 6. Hypothyroidism 7. History of C. Difficile Colitis 8. History of MARLYN, resolved 9. 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 Inhaled bronchodilators, O2 to keep SpO2 >90%, and GI prophylaxis and continue vent support, SBT when fever subsides 2. Continue Cardizem CD 120 qd and resume Valsartan 40 qd 3. Continue Eliquis 5 bid 4. Transfuse to maintain Hgb>8.0 5. Complete course of abx.
[2017-08-29] MEDS ORDERED: PT OWN MED DRAWER 7, Y5N ONE ×3 (10:44→22:46)
[2017-08-29] MEDS: LACTOBACILLUS ACIDOPHILUS 1 EACH TAB (FP) PO SCH (11:37)
[2017-08-29] MEDS: APIXABAN 5 MG TABLET PO SCH ×2 (11:38→22:57)
[2017-08-29] MEDS: NYSTATIN POWDER 100,000 UNITS/GM - 15 GM TOPICAL POWDER TP SCH (11:45)
[2017-08-29] MEDS: COLLAGENASE CLOSTRIDIUM HIST. 30 GRAMS TUBE TP SCH (12:19)
--- NOTE | 2017-08-29 13:16 | PN ---
Progress Note (short form) - Note Progress Note: NAD continued lowgrade fevers alert Vital Signs Period Temp Pulse Resp BP Sys/Parra Pulse Ox Last 24 Hr 98.4 F-100.4 F 102-119 12-22 109-117/47-64 97-98 cor-rrr lungs decreased bs at bases abd soft,nt arms swollen legs no swelling CBC, BMP 08/29/17 07:15 08/28/17 06:10 Microbiology 08/26/17 15:00 Sputum - Endotrachea Suction/Ventilator Gram Stain - Final 08/26/17 15:00 Sputum - Endotrachea Suction/Ventilator Sputum Culture - Preliminary Lactose Fermenting Neg Bacilli Mr S Aureus 08/25/17 10:27 Blood - Peripheral Venous Blood Culture - Preliminary NO GROWTH OBTAINED AFTER 96 HOURS, INCUBATION TO CONTINUE FOR 1 DAYS. 08/25/17 10:27 Blood - Peripheral Venous Blood Culture - Preliminary NO GROWTH OBTAINED AFTER 96 HOURS, INCUBATION TO CONTINUE FOR 1 DAYS. imp/reccd FUO- suspect malignancy related, ?lymphoma, ?thymoma- d/w Dr White-no biopsy planned as family does not wish to pursue treatment continue flagyl empiric vanco/cefepime day #3 stools improved anemia s/p transfusion plans for DNR and comfort care advanced directives being addressed chronic resp failure- on vent via trach history of VRE rectal colonization-contact isolation Problem List - Problems (1) Fever Code(s): R50.9 - FEVER, UNSPECIFIED Qualifiers: Fever type: unspecified Qualified Code(s): R50.9 - Fever, unspecified; R50.9 - Fever, unspecified (2) UTI (urinary tract infection) Code(s): N39.0 - URINARY TRACT INFECTION, SITE NOT SPECIFIED Qualifiers: Urinary tract infection type: site unspecified Hematuria presence: with hematuria Qualified Code(s): N39.0 - Urinary tract infection, site not specified; N39.0 - Urinary tract infection, site not specified; R31.9 - Hematuria, unspecified; R31.9 - Hematuria, unspecified
--- NOTE | 2017-08-29 13:21 | PN ---
Progress Note, Physician History of Present Illness: pulmonary awake on vent support ac mode,-resp distress - Current Medication List Current Medications: Active Medications Acetaminophen (Tylenol -) 650 mg PO Q6H PRN PRN Reason: FEVER OR PAIN Last Admin: 08/27/17 18:12 Dose: 650 mg Albuterol/Ipratropium (Duoneb -) 1 amp NEB QIDR [facility] Last Admin: 08/29/17 11:07 Dose: 1 amp Apixaban (Eliquis -) 5 mg PO BID [facility] Last Admin: 08/29/17 11:38 Dose: 5 mg Collagenase (Santyl -) 1 applic TP DAILY [facility] Last Admin: 08/29/17 12:19 Dose: Not Given Diltiazem HCl (Cardizem Cd -) 120 mg PO DAILY [facility] Last Admin: 08/29/17 11:37 Dose: 120 mg IV Flush (Triple Lumen Flush) 4 ml IVPUSH PRN PRN PRN Reason: Protocol Dextrose/Sodium Chloride (Dextrose 5%-Normal Saline+20 Meq Kcl -) 1,000 mls @ 60 mls/hr IV ASDIR [facility] Last Admin: 08/28/17 17:44 Dose: Not Given Cefepime HCl 1 gm/ Dextrose 100 mls @ 200 mls/hr IVPB BID [facility] Last Admin: 08/28/17 22:23 Dose: Not Given Vancomycin HCl 500 mg/ (Dextrose) 100 mls @ 100 mls/hr IVPB DAILY@1200 [facility] Last Admin: 08/28/17 17:43 Dose: Not Given Lactobacillus Acidophilus (Bacid -) 1 tab PO DAILY [facility] Last Admin: 08/29/17 11:37 Dose: 1 tab Levothyroxine Sodium (Synthroid -) 88 mcg PO DAILY@0700 [facility] Metronidazole (Flagyl -) 500 mg PO TID [facility] Last Admin: 08/29/17 05:13 Dose: 500 mg Nystatin (Nystop Powder -) 1 applic TP DAILY [facility] Last Admin: 08/29/17 11:45 Dose: 1 applic Tamsulosin HCl (Flomax -) 0.4 mg PO DAILY@1730 [facility] Last Admin: 08/28/17 19:09 Dose: 0.4 mg Valsartan (Diovan -) 40 mg PO DAILY [facility] - Objective Vital Signs: Vital Signs Temperature 98.8 F 08/29/17 06:00 Pulse Rate 103 H 08/29/17 10:15 Respiratory Rate 21 08/29/17 10:25 Blood Pressure 117/60 08/29/17 06:00 O2 Sat by Pulse Oximetry (%) 97 08/29/17 10:25 Constitutional: Yes: Calm, Thin Eyes: Yes: WNL HENT: Yes: WNL Neck: Yes: Supple (trach) Cardiovascular: Yes: Pulse Irregular, S1, S2 Respiratory: Yes: Diminished Gastrointestinal: Yes: Normal Bowel Sounds, Soft Extremities: Yes: WNL Edema: No Labs: CBC, BMP 08/29/17 07:15 Problem List - Problems (1) Fever Code(s): R50.9 - FEVER, UNSPECIFIED Qualifiers: Qualified Code(s): R50.9 - Fever, unspecified; R50.9 - Fever, unspecified (2) Hematuria Code(s): R31.9 - HEMATURIA, UNSPECIFIED Qualifiers: Qualified Code(s): R31.9 - Hematuria, unspecified; R31.9 - Hematuria, unspecified (3) Sacral decubitus ulcer, stage II Code(s): L89.152 - PRESSURE ULCER OF SACRAL REGION, STAGE 2 (4) A-fib Code(s): I48.91 - UNSPECIFIED ATRIAL FIBRILLATION Qualifiers: Qualified Code(s): I48.0 - Paroxysmal atrial fibrillation; I48.0 - Paroxysmal atrial fibrillation; I48.0 - Paroxysmal atrial fibrillation; I48.0 - Paroxysmal atrial fibrillation (5) Acute on chronic respiratory failure with hypoxia and hypercapnia Code(s): J96.21 - ACUTE AND CHRONIC RESPIRATORY FAILURE WITH HYPOXIA J96.22 - ACUTE AND CHRONIC RESPIRATORY FAILURE WITH HYPERCAPNIA (6) Anemia Code(s): D64.9 - ANEMIA, UNSPECIFIED Qualifiers: Qualified Code(s): D64.9 - Anemia, unspecified; D64.9 - Anemia, unspecified (7) COPD (chronic obstructive pulmonary disease) Code(s): J44.9 - CHRONIC OBSTRUCTIVE PULMONARY DISEASE, UNSPECIFIED Qualifiers : Qualified Code(s): J44.9 - Chronic obstructive pulmonary disease, unspecified; J44.9 - Chronic obstructive pulmonary disease, unspecified; J44.9 - Chronic obstructive pulmonary disease, unspecified; J44.9 - Chronic obstructive pulmonary disease, unspecified (8) Chest pain Code(s): R07.9 - CHEST PAIN, UNSPECIFIED Qualifiers: Qualified Code(s): R07.81 - Pleurodynia; R07.81 - Pleurodynia (9) Diastolic heart failure Code(s): I50.30 - UNSPECIFIED DIASTOLIC (CONGESTIVE) HEART FAILURE Qualifiers : Qualified Code(s): I50.32 - Chronic diastolic (congestive) heart failure ; I50.32 - Chronic diastolic (congestive) heart failure; I50.32 - Chronic diastolic (congestive) heart failure; I50.32 - Chronic diastolic (congestive) heart failure (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 Assessment/Plan IMP ACUTE ON CHRONIC HYPOXEMIC/HYPERCAPNEIC RESPIRATORY FAILURE INVASIVE ANT MEDIASTINAL MASS FEVER ANEMIA COPD AFIB HEMATURIA DIASTOLIC HF PLAN VENT SUPPORT ON AC MODE INHALED BRONCHODILATORS ANTIBIOTICS PER ID MONITOR H+H DR RAGLAND Problem List - Problems (1) Fever Code(s): R50.9 - FEVER, UNSPECIFIED Qualifiers: Fever type: unspecified Qualified Code(s): R50.9 - Fever, unspecified; R50.9 - Fever, unspecified (2) Hematuria Code(s): R31.9 - HEMATURIA, UNSPECIFIED Qualifiers: Hematuria type: unspecified type Qualified Code(s): R31.9 - Hematuria, unspecified; R31.9 - Hematuria, unspecified (3) Sacral decubitus ulcer, stage II Code(s): L89.152 - PRESSURE ULCER OF SACRAL REGION, STAGE 2 (4) A-fib Code(s): I48.91 - UNSPECIFIED ATRIAL FIBRILLATION Qualifiers: (5) Acute on chronic respiratory failure with hypoxia and hypercapnia Code(s): J96.21 - ACUTE AND CHRONIC RESPIRATORY FAILURE WITH HYPOXIA J96.22 - ACUTE AND CHRONIC RESPIRATORY FAILURE WITH HYPERCAPNIA (6) Anemia Code(s): D64.9 - ANEMIA, UNSPECIFIED Qualifiers: Anemia type: unspecified type Qualified Code(s): D64.9 - Anemia, unspecified; D64.9 - Anemia, unspecified (7) COPD (chronic obstructive pulmonary disease) Code(s): J44.9 - CHRONIC OBSTRUCTIVE PULMONARY DISEASE, UNSPECIFIED Qualifiers : COPD type: unspecified COPD Qualified Code(s): J44.9 - Chronic obstructive pulmonary disease, unspecified; J44.9 - Chronic obstructive pulmonary disease, unspecified; J44.9 - Chronic obstructive pulmonary disease, unspecified; J44.9 - Chronic obstructive pulmonary disease, unspecified (8) Chest pain Code(s): R07.9 - CHEST PAIN, UNSPECIFIED Qualifiers: Chest pain type: pleurodynia Qualified Code(s): R07.81 - Pleurodynia ; R07.81 - Pleurodynia (9) Diastolic heart failure Code(s): I50.30 - UNSPECIFIED DIASTOLIC (CONGESTIVE) HEART FAILURE Qualifiers : Heart failure chronicity: chronic Qualified Code(s): I50.32 - Chronic diastolic (congestive) heart failure; I50.32 - Chronic diastolic ( congestive) heart failure; I50.32 - Chronic diastolic (congestive) heart failure ; I50.32 - Chronic diastolic (congestive) heart failure (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
--- NOTE | 2017-08-29 13:40 | PN ---
Progress Note, [employer] - Note Progress Note: Asked to see pt again, asking for the "speaking valve." Per my knowledge, PMV has not been ordered during this admission. Per transfer notes, no documentation of use at [facility]. Pt's sister said "they used the speaking valve, the red one, all the time." Unclear since PMV is aqua, and red button is cap, for when off of ventilator. Pt alert and attempting to speak. Intermittent vocalizations noted. Medical event noted with RR last week. Pending decision regarding comfort care. PMV would enable pt to communicate more effectively if tolerated. MD orders needed, if medically appropriate.
--- NOTE | 2017-08-29 13:45 | PN ---
Progress Note, Physician Chief Complaint: The patient seen in her bed. Sister with her. Low grade fever persists. running out of IV sites. Maintains good urine output. History of Present Illness: 67 year old woman with PMhx of Chronic Respiratory failure on vent, COPD, Anemia , Afib, Hypothyrodism who presented from the OR with fever and anemia and with hyponatremia and hypokalemia. - Current Medication List Current Medications: Active Medications Acetaminophen (Tylenol -) 650 mg PO Q6H PRN PRN Reason: FEVER OR PAIN Last Admin: 08/27/17 18:12 Dose: 650 mg Albuterol/Ipratropium (Duoneb -) 1 amp NEB QIDR [facility] Last Admin: 08/29/17 11:07 Dose: 1 amp Apixaban (Eliquis -) 5 mg PO BID [facility] Last Admin: 08/29/17 11:38 Dose: 5 mg Collagenase (Santyl -) 1 applic TP DAILY [facility] Last Admin: 08/29/17 12:19 Dose: Not Given Diltiazem HCl (Cardizem Cd -) 120 mg PO DAILY [facility] Last Admin: 08/29/17 11:37 Dose: 120 mg IV Flush (Triple Lumen Flush) 4 ml IVPUSH PRN PRN PRN Reason: Protocol Dextrose/Sodium Chloride (Dextrose 5%-Normal Saline+20 Meq Kcl -) 1,000 mls @ 60 mls/hr IV ASDIR [facility] Last Admin: 08/28/17 17:44 Dose: Not Given Cefepime HCl 1 gm/ Dextrose 100 mls @ 200 mls/hr IVPB BID [facility] Last Admin: 08/28/17 22:23 Dose: Not Given Vancomycin HCl 500 mg/ (Dextrose) 100 mls @ 100 mls/hr IVPB DAILY@1200 [facility] Last Admin: 08/28/17 17:43 Dose: Not Given Lactobacillus Acidophilus (Bacid -) 1 tab PO DAILY [facility] Last Admin: 08/29/17 11:37 Dose: 1 tab Levothyroxine Sodium (Synthroid -) 88 mcg PO DAILY@0700 [facility] Metronidazole (Flagyl -) 500 mg PO TID [facility] Last Admin: 08/29/17 05:13 Dose: 500 mg Nystatin (Nystop Powder -) 1 applic TP DAILY [facility] Last Admin: 08/29/17 11:45 Dose: 1 applic Tamsulosin HCl (Flomax -) 0.4 mg PO DAILY@1730 [facility] Last Admin: 08/28/17 19:09 Dose: 0.4 mg Valsartan (Diovan -) 40 mg PO DAILY [facility] - Objective Vital Signs: Vital Signs Temperature 98.8 F 08/29/17 06:00 Pulse Rate 103 H 08/29/17 10:15 Respiratory Rate 21 08/29/17 10:25 Blood Pressure 117/60 08/29/17 06:00 O2 Sat by Pulse Oximetry (%) 97 08/29/17 10:25 Constitutional: Yes: Anxious, Mild Distress, Pallor Eyes: Yes: Conjunctiva Clear Neck: Yes: Supple Cardiovascular: Yes: S1, S2 Respiratory: Yes: Mechanically Ventilated Gastrointestinal: Yes: Normal Bowel Sounds, Soft Genitourinary: No: CVA Tenderness - Left, CVA Tenderness - Right Extremities: Yes: Erythema Edema: Yes Edema: LUE: 2+, RUE: 2+ Neurological: Yes: Alert Labs: CBC, BMP 08/29/17 07:15 08/28/17 06:10 INR, PTT INR 2.24 (0.82-1.09) H D 08/12/17 18:00 Problem List - Problems (1) Fever Code(s): R50.9 - FEVER, UNSPECIFIED Qualifiers: Fever type: unspecified Qualified Code(s): R50.9 - Fever, unspecified; R50.9 - Fever, unspecified (2) Hypokalemia Code(s): E87.6 - HYPOKALEMIA (3) Hyponatremia Code(s): E87.1 - HYPO-OSMOLALITY AND HYPONATREMIA (4) COPD (chronic obstructive pulmonary disease) Code(s): J44.9 - CHRONIC OBSTRUCTIVE PULMONARY DISEASE, UNSPECIFIED Qualifiers : COPD type: unspecified COPD Qualified Code(s): J44.9 - Chronic obstructive pulmonary disease, unspecified; J44.9 - Chronic obstructive pulmonary disease, unspecified; J44.9 - Chronic obstructive pulmonary disease, unspecified; J44.9 - Chronic obstructive pulmonary disease, unspecified (5) Chronic respiratory failure with hypoxia Code(s): J96.11 - CHRONIC RESPIRATORY FAILURE WITH HYPOXIA (6) Hypothyroid Code(s): E03.9 - HYPOTHYROIDISM, UNSPECIFIED Qualifiers: Hypothyroidism type: unspecified Qualified Code(s): E03.9 - Hypothyroidism, unspecified; E03.9 - Hypothyroidism, unspecified; E03.9 - Hypothyroidism, unspecified Assessment/Plan 67 year old female with PMhx of Chronic Respiratory failure on vent, COPD, Anemia, Afib, Hypothyrodism who presented from the OR with fever and anemia and with hyponatremia and hypokalemia. Hyponatremia Serum Na (134) stable. Will D/C IV fluids. Pt appears evolemic at the present time Hypokalemia. Serum K in acceptable range now. Polymicrobial Sepsis/UTI/ C. diff continue Abx as per ID Vent support Tenderness of the Forearms. Concur with getting Doppler studies. Thank you. Yanna Barkley MD
[2017-08-29] MEDS: CEFEPIME 1 GM in DEXTROSE 5%-WATER - 100 ML IVPB SCH ×2 (13:56→22:58)
[2017-08-29] MEDS: VANCOMYCIN 500 MG in DEXTROSE 5%-WATER - 100 ML IVPB SCH (14:48)
[2017-08-29] MEDS: TAMSULOSIN HCL 0.4 MG CAP.ER.24H (FP) PO SCH (18:38)
[2017-08-29] MEDS: ACETAMINOPHEN 325 MG TABLET (FP) PO PRN (18:38)
[2017-08-30] MEDS: ALBUTEROL SO4 2.5/IPRATROPIUM 0.5 INH SOL 3 ML VIAL.NEB. NEB SCH ×4 (00:05→23:19)
[2017-08-30] MEDS: LEVOTHYROXINE NA 88 MCG TABLET (FP) PO SCH (06:25)
[2017-08-30] MEDS: metroNIDAZOLE 250 MG TABLET PO SCH ×3 (06:25→22:01)
[2017-08-30] MEDS: CEFEPIME 1 GM in DEXTROSE 5%-WATER - 100 ML IVPB SCH ×2 (10:00→22:02)
[2017-08-30] MEDS ORDERED: VALSARTAN 40 MG TABLET (FP) PO SCH (10:00)
[2017-08-30] MEDS: LACTOBACILLUS ACIDOPHILUS 1 EACH TAB (FP) PO SCH (10:02)
[2017-08-30] MEDS: APIXABAN 5 MG TABLET PO SCH ×2 (10:02→22:01)
--- NOTE | 2017-08-30 10:17 | PN ---
Progress Note, Physician Chief Complaint: Events noted Not in distress History of Present Illness: Patient was seen and examined. Awake. Chart was reviewed Denies chest pain or palpitations on mechanical vent via trache Afebrile Tachycardic - Current Medication List Current Medications: Active Medications Acetaminophen (Tylenol -) 650 mg PO Q6H PRN PRN Reason: FEVER OR PAIN Last Admin: 08/29/17 18:38 Dose: 650 mg Albuterol/Ipratropium (Duoneb -) 1 amp NEB QIDR [facility] Last Admin: 08/30/17 06:00 Dose: 1 amp Apixaban (Eliquis -) 5 mg PO BID [facility] Last Admin: 08/30/17 10:02 Dose: 5 mg Collagenase (Santyl -) 1 applic TP DAILY [facility] Last Admin: 08/29/17 12:19 Dose: Not Given Diltiazem HCl (Cardizem Cd -) 120 mg PO DAILY [facility] Last Admin: 08/30/17 10:13 Dose: 120 mg IV Flush (Triple Lumen Flush) 4 ml IVPUSH PRN PRN PRN Reason: Protocol Cefepime HCl 1 gm/ Dextrose 100 mls @ 200 mls/hr IVPB BID [facility] Last Admin: 08/29/17 22:58 Dose: 200 mls/hr Vancomycin HCl 500 mg/ (Dextrose) 100 mls @ 100 mls/hr IVPB DAILY@1200 [facility] Last Admin: 08/29/17 14:48 Dose: 100 mls/hr Lactobacillus Acidophilus (Bacid -) 1 tab PO DAILY [facility] Last Admin: 08/30/17 10:02 Dose: 1 tab Levothyroxine Sodium (Synthroid -) 88 mcg PO DAILY@0700 [facility] Last Admin: 08/30/17 06:25 Dose: 88 mcg Metronidazole (Flagyl -) 500 mg PO TID [facility] Last Admin: 08/30/17 06:25 Dose: 500 mg Nystatin (Nystop Powder -) 1 applic TP DAILY [facility] Last Admin: 08/29/17 11:45 Dose: 1 applic Tamsulosin HCl (Flomax -) 0.4 mg PO DAILY@1730 [facility] Last Admin: 08/29/17 18:38 Dose: 0.4 mg Valsartan (Diovan -) 40 mg PO DAILY [facility] - Objective Vital Signs: Vital Signs Temperature 98.6 F 10/24/17 10:00 Pulse Rate 124 H 08/30/17 10:00 Respiratory Rate 17 08/30/17 10:13 Blood Pressure 101/46 08/30/17 10:00 O2 Sat by Pulse Oximetry (%) 99 08/30/17 10:13 Cardiovascular: Yes: Regular Rate and Rhythm, Tachycardia, S1, S2 Respiratory: Yes: Diminished, Mechanically Ventilated Gastrointestinal: Yes: Normal Bowel Sounds, Soft. No: Tenderness Edema: No Problem List - Problems (1) A-fib Code(s): I48.91 - UNSPECIFIED ATRIAL FIBRILLATION Qualifiers: Atrial fibrillation type: paroxysmal Qualified Code(s): I48.0 - Paroxysmal atrial fibrillation; I48.0 - Paroxysmal atrial fibrillation; I48.0 - Paroxysmal atrial fibrillation; I48.0 - Paroxysmal atrial fibrillation (2) Acute and chronic respiratory failure with hypoxia Code(s): J96.21 - ACUTE AND CHRONIC RESPIRATORY FAILURE WITH HYPOXIA (3) Acute on chronic respiratory failure with hypoxia and hypercapnia Code(s): J96.21 - ACUTE AND CHRONIC RESPIRATORY FAILURE WITH HYPOXIA J96.22 - ACUTE AND CHRONIC RESPIRATORY FAILURE WITH HYPERCAPNIA (4) Anemia Code(s): D64.9 - ANEMIA, UNSPECIFIED Qualifiers: Anemia type: unspecified type Qualified Code(s): D64.9 - Anemia, unspecified; D64.9 - Anemia, unspecified (5) COPD (chronic obstructive pulmonary disease) Code(s): J44.9 - CHRONIC OBSTRUCTIVE PULMONARY DISEASE, UNSPECIFIED Qualifiers : COPD type: unspecified COPD Qualified Code(s): J44.9 - Chronic obstructive pulmonary disease, unspecified; J44.9 - Chronic obstructive pulmonary disease, unspecified; J44.9 - Chronic obstructive pulmonary disease, unspecified; J44.9 - Chronic obstructive pulmonary disease, unspecified (6) Diastolic heart failure Code(s): I50.30 - UNSPECIFIED DIASTOLIC (CONGESTIVE) HEART FAILURE Qualifiers : Heart failure chronicity: chronic Qualified Code(s): I50.32 - Chronic diastolic (congestive) heart failure; I50.32 - Chronic diastolic ( congestive) heart failure; I50.32 - Chronic diastolic (congestive) heart failure ; I50.32 - Chronic diastolic (congestive) heart failure (7) Hypothyroid Code(s): E03.9 - HYPOTHYROIDISM, UNSPECIFIED Qualifiers: Hypothyroidism type: unspecified Qualified Code(s): E03.9 - Hypothyroidism, unspecified; E03.9 - Hypothyroidism, unspecified; E03.9 - Hypothyroidism, unspecified (8) Pneumonia Code(s): J18.9 - PNEUMONIA, UNSPECIFIED ORGANISM Qualifiers: Pneumonia type: due to unspecified organism Laterality: left Lung location: lower lobe of lung Qualified Code(s): J18.1 - Lobar pneumonia, unspecified organism; J18.1 - Lobar pneumonia, unspecified organism; J18.1 - Lobar pneumonia, unspecified organism (9) Tracheostomy dependence Code(s): Z93.0 - TRACHEOSTOMY STATUS Assessment/Plan 1. 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 COPD with acute on chronic hypoxic/hypercapneic respiratory failure post tracheostomy 3. Diastolic LV dysfunction with class I NYHA classification LV congestive heart failure, compensated/euvolemic 4. Paroxysmal Atrial Fibrillation/atrial tachycardia on NOAC, [id number] score of 4 5. HTN 6. Hypothyroidism 7. History of C. Difficile Colitis 8. MARLYN and Hyperkalemia 9. Anemia post transfusion PLAN: 1. Inhaled bronchodilators, O2, GI prophylaxis and continue vent support 2. Continue Cardizem CD and Valsartan as tolerated 3. Continue Eliquis 5 bid 4. Transfuse to maintain Hgb>8.0 5. Continue antibiotic coverage Further plans are to follow Bert Ivan MD
[2017-08-30] MEDS ORDERED: TRIPLE LUMEN FLUSH 4 ML ML IVPUSH PRN (11:14)
[2017-08-30] MEDS ORDERED: PICC LINE 8 ML FLUSH PROTOCOL IVPUSH PRN (11:52)
--- NOTE | 2017-08-30 11:52 | PN ---
Progress Note, Physician Chief Complaint: UTI, Fever History of Present Illness: NAD, on mech vent was febrile earlier poor appetite diarrhea no IV access, BLUE swelling, PICC line request from IR PO flagyl for diarrhea cdiff resent- positive for antigen seen by ID, cardiology, pulmonary and nephrology CT chest showed possible malignant neoplasm in the mediastinum to be evaluated by Palliative care, make pt DNR?, pt alert and oriented, sisters to be involved in decision making - Current Medication List Current Medications: Active Medications Acetaminophen (Tylenol -) 650 mg PO Q6H PRN PRN Reason: FEVER OR PAIN Last Admin: 08/29/17 18:38 Dose: 650 mg Albuterol/Ipratropium (Duoneb -) 1 amp NEB QIDR [facility] Last Admin: 08/30/17 06:00 Dose: 1 amp Apixaban (Eliquis -) 5 mg PO BID [facility] Last Admin: 08/30/17 10:02 Dose: 5 mg Collagenase (Santyl -) 1 applic TP DAILY [facility] Last Admin: 08/29/17 12:19 Dose: Not Given Diltiazem HCl (Cardizem Cd -) 120 mg PO DAILY [facility] Last Admin: 08/30/17 10:13 Dose: 120 mg IV Flush (Triple Lumen Flush) 4 ml IVPUSH PRN PRN PRN Reason: Protocol IV Flush (Triple Lumen Flush) 4 ml IVPUSH PRN PRN PRN Reason: Protocol Cefepime HCl 1 gm/ Dextrose 100 mls @ 200 mls/hr IVPB BID [facility] Last Admin: 08/29/17 22:58 Dose: 200 mls/hr Vancomycin HCl 500 mg/ (Dextrose) 100 mls @ 100 mls/hr IVPB DAILY@1200 [facility] Last Admin: 08/29/17 14:48 Dose: 100 mls/hr Lactobacillus Acidophilus (Bacid -) 1 tab PO DAILY [facility] Last Admin: 08/30/17 10:02 Dose: 1 tab Levothyroxine Sodium (Synthroid -) 88 mcg PO DAILY@0700 [facility] Last Admin: 08/30/17 06:25 Dose: 88 mcg Metronidazole (Flagyl -) 500 mg PO TID [facility] Last Admin: 08/30/17 06:25 Dose: 500 mg Nystatin (Nystop Powder -) 1 applic TP DAILY [facility] Last Admin: 08/29/17 11:45 Dose: 1 applic Tamsulosin HCl (Flomax -) 0.4 mg PO DAILY@1730 [facility] Last Admin: 08/29/17 18:38 Dose: 0.4 mg Valsartan (Diovan -) 40 mg PO DAILY [facility] - Objective Vital Signs: Vital Signs Temperature 98.6 F 08/30/17 10:00 Pulse Rate 124 H 08/30/17 10:00 Respiratory Rate 17 08/30/17 10:13 Blood Pressure 101/46 08/30/17 10:00 O2 Sat by Pulse Oximetry (%) 99 08/30/17 10:13 Constitutional: Yes: Well Nourished, No Distress, Calm Cardiovascular: Yes: Regular Rate and Rhythm Respiratory: Yes: Regular, Mechanically Ventilated Musculoskeletal: Yes: WNL Extremities: Yes: WNL Edema: Yes Edema: LUE: 1+, RUE: 1+ Peripheral Pulses WNL: Yes Neurological: Yes: Alert, Oriented Psychiatric: Yes: Alert, Oriented Labs: CBC, BMP 08/29/17 07:15 08/28/17 06:10 INR, PTT INR 2.24 (0.82-1.09) H D 08/12/17 18:00 Problem List - Problems (1) Fever Assessment/Plan: -febrile last evening -no IV access for IV abx, PICC requested -repeat CBC -tylenol for fever over 100.0F -repeat labs in AM -on PO flagyl for diarrhea Code(s): R50.9 - FEVER, UNSPECIFIED Qualifiers: Fever type: unspecified Qualified Code(s): R50.9 - Fever, unspecified; R50.9 - Fever, unspecified (2) Sacral decubitus ulcer, stage II Assessment/Plan: -seen by Vascular -offloading to the area -santyl -wound culture shows MRSA and VRE Code(s): L89.152 - PRESSURE ULCER OF SACRAL REGION, STAGE 2 (3) Systemic inflammatory response syndrome (SIRS) Assessment/Plan: -seen by ID -Tylenol for fever over 100.0F Code(s): R65.10 - SIRS OF NON-INFECTIOUS ORIGIN W/O ACUTE ORGAN DYSFUNCTION (4) A-fib Assessment/Plan: -Chronic -uncontrolled 2/2 to sepsis and fever -on Eliquis Code(s): I48.91 - UNSPECIFIED ATRIAL FIBRILLATION Qualifiers: Atrial fibrillation type: paroxysmal Qualified Code(s): I48.0 - Paroxysmal atrial fibrillation; I48.0 - Paroxysmal atrial fibrillation; I48.0 - Paroxysmal atrial fibrillation; I48.0 - Paroxysmal atrial fibrillation (5) Acute and chronic respiratory failure with hypoxia Assessment/Plan: -on mechanical vent -poor prognosis knowing the existence of malignant neoplasm Code(s): J96.21 - ACUTE AND CHRONIC RESPIRATORY FAILURE WITH HYPOXIA (6) Sepsis Assessment/Plan: -febrile yesterday ID on board IV abx once PICC l ine is inserted Code(s): A41.9 - SEPSIS, UNSPECIFIED ORGANISM Qualifiers: Sepsis type: sepsis due to unspecified organism Qualified Code(s): A41.9 - Sepsis, unspecified organism; A41.9 - Sepsis, unspecified organism; A41.9 - Sepsis, unspecified organism Assessment/Plan see problem list
[2017-08-30] MEDS: VALSARTAN 40 MG TABLET (FP) PO SCH (12:45)
--- NOTE | 2017-08-30 13:09 | PN ---
Progress Note, [employer] - Note Progress Note: Family requesting PMV.At present, staff deflates cuff for meals. Case discussed PMV with Dr. Vance, who also feels PMV would enable pt to communicate more effectively in order to discuss her wishes regarding her medical dx and p[prognosis. Pending orders for PMV evaluation, if PNP/pulmonary agree.
--- NOTE | 2017-08-30 13:48 | PN ---
Progress Note (short form) - Note Progress Note: Palliative Care The patient's chart was reviewed and her sister Valencia was interviewed with an extended discussion. The patient can make some of her wishes know and she is oriented to place and person. I agree that a more thoughtful intelligent discussion would be evident with the use of the PMV. 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 If the patient is able to make medical decisions for herself then she has the legal and ethical right to know of her diagnosis. The sister is aware of that but feels that with her other serious medical conditions that are already present, the news would make her suffer to a greater extent than she is already experiencing. As to what is to gain by telling her the news even if done in a compassionate way, I asked an oncologist based on her new CT scan report and her current performance status what could be offered to her in the way of treatment especially if she is at risk of future Superior Venal Caval Syndrome.The answer was she would need a bx to prove the diagnosis and ? RT or chemotherapy which her current performance status might contraindicate. Under these circumstances we should reconsider what is the best approach to this patients care and any communication of bad news. Her MOLST form is not signed by patient or health care provider and I have asked for a copy of her HCP for the chart.
--- NOTE | 2017-08-30 14:31 | PN ---
Progress Note (short form) - Note Progress Note: NAD continued lowgrade fevers alert day #4 antibiotics no diarrhea Vital Signs Period Temp Pulse Resp BP Sys/Parra Pulse Ox Last 24 Hr 98.3 F-101.4 F 112-124 12- 101-136/46-69 99-99 trach to vent cor-rrr lungs decreased bns at bases abd soft, nt ext no edema CBC, BMP 08/29/17 07:15 08/28/17 06:10 Microbiology 08/26/17 15:00 Gram Stain - Final Sputum - Endotrachea Suction/Ventilator Sputum Culture - Final Acinetobacter Baumannii/Haemol Mr S Aureus 08/25/17 10:27 Blood Culture - Final Blood - Peripheral Venous NO GROWTH AFTER 5 DAYS INCUBATION 08/25/17 10:27 Blood Culture - Final Blood - Peripheral Venous NO GROWTH AFTER 5 DAYS INCUBATION 08/22/17 15:30 Salmonella/Shigella Culture - Final Stool Campylobacter Culture - Final NO GROWTH OF CAMPYLOBACTER SPECIES OBTAINED Yersinia Culture - Final NO GROWTH OF YERSINIA SPECIES OBTAINED Vibrio Culture - Final NO GROWTH OF VIBRIO SPECIES OBTAINED Escherichia coli 0157 Culture - Final NO GROWTH OF E COLI 0157 OBTAINED imp/reccd FUO- suspect malignancy related, ?lymphoma, ?thymoma- d/w Dr White-no biopsy planned as family does not wish to pursue treatment continue flagyl empiric vanco/cefepime day #4-fevers trending down stools improved anemia s/p transfusion plans for DNR and comfort care advanced directives being addressed chronic resp failure- on vent via trach 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
[2017-08-30] MEDS: NYSTATIN POWDER 100,000 UNITS/GM - 15 GM TOPICAL POWDER TP SCH (14:38)
[2017-08-30] MEDS: COLLAGENASE CLOSTRIDIUM HIST. 30 GRAMS TUBE TP SCH (14:39)
--- NOTE | 2017-08-30 15:20 | PN ---
Progress Note, Physician Chief Complaint: The patient seen in her bed. Sister with her. 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 Afebrile now. History of Present Illness: 67 year old woman with PMhx of Chronic Respiratory failure on vent, COPD, Anemia , Afib, Hypothyrodism who presented from the [place] with fever and anemia and with hyponatremia and hypokalemia. - Current Medication List Current Medications: Active Medications Acetaminophen (Tylenol -) 650 mg PO Q6H PRN PRN Reason: FEVER OR PAIN Last Admin: 08/29/17 18:38 Dose: 650 mg Albuterol/Ipratropium (Duoneb -) 1 amp NEB QIDR [facility] Last Admin: 08/30/17 12:01 Dose: 1 amp Apixaban (Eliquis -) 5 mg PO BID [facility] Last Admin: 08/30/17 10:02 Dose: 5 mg Collagenase (Santyl -) 1 applic TP DAILY [facility] Last Admin: 08/30/17 14:39 Dose: 1 applic Diltiazem HCl (Cardizem Cd -) 120 mg PO DAILY [facility] Last Admin: 08/30/17 10:13 Dose: 120 mg IV Flush (Picc Line Flush) 8 ml IVPUSH PRN PRN PRN Reason: Protocol Cefepime HCl 1 gm/ Dextrose 100 mls @ 200 mls/hr IVPB BID [facility] Last Admin: 08/30/17 10:00 Dose: Not Given Vancomycin HCl 500 mg/ (Dextrose) 100 mls @ 100 mls/hr IVPB DAILY@1200 [facility] Last Admin: 08/29/17 14:48 Dose: 100 mls/hr Lactobacillus Acidophilus (Bacid -) 1 tab PO DAILY [facility] Last Admin: 08/30/17 10:02 Dose: 1 tab Levothyroxine Sodium (Synthroid -) 88 mcg PO DAILY@0700 [facility] Last Admin: 08/30/17 06:25 Dose: 88 mcg Metronidazole (Flagyl -) 500 mg PO TID [facility] Last Admin: 08/30/17 13:49 Dose: 500 mg Nystatin (Nystop Powder -) 1 applic TP DAILY [facility] Last Admin: 08/30/17 14:38 Dose: 1 applic Tamsulosin HCl (Flomax -) 0.4 mg PO DAILY@1730 [facility] Last Admin: 08/29/17 18:38 Dose: 0.4 mg Valsartan (Diovan -) 40 mg PO DAILY [facility] Last Admin: 08/30/17 12:45 Dose: 40 mg - Objective Vital Signs: Vital Signs Temperature 98.6 F 08/30/17 10:00 Pulse Rate 124 H 08/30/17 10:00 Respiratory Rate 19 08/30/17 13:55 Blood Pressure 101/46 08/30/17 10:00 O2 Sat by Pulse Oximetry (%) 99 08/30/17 10:13 Constitutional: Yes: Anxious, Pallor Cardiovascular: Yes: Tachycardia, S1, S2 Respiratory: Yes: Accessory Muscle Use, Mechanically Ventilated Gastrointestinal: Yes: Normal Bowel Sounds, Soft Neurological: Yes: Alert, Oriented Labs: CBC, BMP 08/29/17 07:15 08/28/17 06:10 INR, PTT INR 2.24 (0.82-1.09) H D 08/12/17 18:00 Problem List - Problems (1) Fever Code(s): R50.9 - FEVER, UNSPECIFIED Qualifiers: Fever type: unspecified Qualified Code(s): R50.9 - Fever, unspecified; R50.9 - Fever, unspecified (2) Hypokalemia Code(s): E87.6 - HYPOKALEMIA (3) Hyponatremia Code(s): E87.1 - HYPO-OSMOLALITY AND HYPONATREMIA (4) COPD (chronic obstructive pulmonary disease) Code(s): J44.9 - CHRONIC OBSTRUCTIVE PULMONARY DISEASE, UNSPECIFIED Qualifiers : COPD type: unspecified COPD Qualified Code(s): J44.9 - Chronic obstructive pulmonary disease, unspecified; J44.9 - Chronic obstructive pulmonary disease, unspecified; J44.9 - Chronic obstructive pulmonary disease, unspecified; J44.9 - Chronic obstructive pulmonary disease, unspecified (5) Chronic respiratory failure with hypoxia Code(s): J96.11 - CHRONIC RESPIRATORY FAILURE WITH HYPOXIA (6) Hypothyroid Code(s): E03.9 - HYPOTHYROIDISM, UNSPECIFIED Qualifiers: Hypothyroidism type: unspecified Qualified Code(s): E03.9 - Hypothyroidism, unspecified; E03.9 - Hypothyroidism, unspecified; E03.9 - Hypothyroidism, unspecified Assessment/Plan 67 year old female with PMhx of Chronic Respiratory failure on vent, COPD, Anemia, Afib, Hypothyrodism who presented from the [place] with fever and anemia and with hyponatremia and hypokalemia. Hyponatremia Serum Na stable. Off Iv fluids Pt appears evolemic at the present time Hypokalemia. Serum K in acceptable range Polymicrobial Sepsis/UTI/ C. 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 Concur with getting Doppler studies. Palliative care notes reviewed. Thank you. Yanna Barkley MD
[2017-08-30] MEDS: VANCOMYCIN 500 MG in DEXTROSE 5%-WATER - 100 ML IVPB SCH (16:14)
--- NOTE | 2017-08-30 17:03 | PN ---
Progress Note (short form) - Note Progress Note: PULMONARY AWAKE /ALERT TRYING TO SPEAK AROUND TRACH PALE/ANICTERIC DIMINISHED WITH POOR INSPIRATORY SOUNDS/LEFT ANTERIOR WHEEZE S1S2 IRREGULAR BS+ LEFT HAND EDEMA 2/2 IV INFILTRATION/RADIAL PULSE IS STRONG LABS/MEDS/NOTES/IMAGES/VENT SETTING/ABG REVIEWED IMP ACUTE ON CHRONIC HYPOXEMIC/HYPERCAPNEIC RESPIRATORY FAILURE INVASIVE MEDIASTINAL MASS FEVER ANEMIA COPD AFIB HEMATURIA DIASTOLIC HF PLAN CONTINUE CURRENT VENT SETTINGS NEED TO DETERMINE GOALS OF CARE INHALED BRONCHODILATORS NORMAL TRANSFUSION THRESHOLDS ANTIBIOTICS PER ID OVERALL PROGNOSIS IS POOR Rosy BETANCOURT MD
[2017-08-30] MEDS: ACETAMINOPHEN 325 MG TABLET (FP) PO PRN (18:18)
[2017-08-30] MEDS: TAMSULOSIN HCL 0.4 MG CAP.ER.24H (FP) PO SCH (18:19)
[2017-08-30] MEDS ORDERED: PT OWN MED DRAWER 7, Y5N ONE ×2 (20:52→20:55)
[2017-08-31] MEDS: ALBUTEROL SO4 2.5/IPRATROPIUM 0.5 INH SOL 3 ML VIAL.NEB. NEB SCH ×4 (06:01→23:51)
[2017-08-31] MEDS: LEVOTHYROXINE NA 88 MCG TABLET (FP) PO SCH (06:26)
[2017-08-31] MEDS: metroNIDAZOLE 250 MG TABLET PO SCH ×3 (06:26→22:07)
--- NOTE | 2017-08-31 08:13 | PN ---
Progress Note (short form) - Note Progress Note: Followup Palliative Care: Patient should have Pulmonary Md discuss CT findings with Oncologist. Important issue is also whether there is any treatment or stenting is indicated to prevent SVC syndrome developing in this patient. After my conversation with her sister Valencia discussing the diagnosis with the patient would be more appropriate especially if she is or is not a candidate for any treatment after this evaluation. I will follow.
[2017-08-31] MEDS ORDERED: PT OWN MED DRAWER 7, Y5N ONE (10:31)
--- NOTE | 2017-08-31 12:17 | PN ---
Progress Note, Physician History of Present Illness: Low grade fevers, resting comfortably on vent. - Current Medication List Current Medications: Active Medications Acetaminophen (Tylenol -) 650 mg PO Q6H PRN PRN Reason: FEVER OR PAIN Last Admin: 08/30/17 18:18 Dose: 650 mg Albuterol/Ipratropium (Duoneb -) 1 amp NEB QIDR [facility] Last Admin: 08/31/17 11:15 Dose: 1 amp Apixaban (Eliquis -) 5 mg PO BID [facility] Last Admin: 08/30/17 22:01 Dose: 5 mg Collagenase (Santyl -) 1 applic TP DAILY [facility] Last Admin: 08/30/17 14:39 Dose: 1 applic Diltiazem HCl (Cardizem Cd -) 120 mg PO DAILY [facility] Last Admin: 08/30/17 10:13 Dose: 120 mg IV Flush (Picc Line Flush) 8 ml IVPUSH PRN PRN PRN Reason: Protocol Cefepime HCl 1 gm/ Dextrose 100 mls @ 200 mls/hr IVPB BID [facility] Last Admin: 08/30/17 22:02 Dose: 200 mls/hr Vancomycin HCl 500 mg/ (Dextrose) 100 mls @ 100 mls/hr IVPB DAILY@1200 [facility] Last Admin: 08/30/17 16:14 Dose: 100 mls/hr Lactobacillus Acidophilus (Bacid -) 1 tab PO DAILY [facility] Last Admin: 08/30/17 10:02 Dose: 1 tab Levothyroxine Sodium (Synthroid -) 88 mcg PO DAILY@0700 [facility] Last Admin: 08/31/17 06:26 Dose: 88 mcg Metronidazole (Flagyl -) 500 mg PO TID [facility] Last Admin: 08/31/17 06:26 Dose: 500 mg Nystatin (Nystop Powder -) 1 applic TP DAILY [facility] Last Admin: 08/30/17 14:38 Dose: 1 applic Tamsulosin HCl (Flomax -) 0.4 mg PO DAILY@1730 [facility] Last Admin: 08/30/17 18:19 Dose: 0.4 mg Valsartan (Diovan -) 40 mg PO DAILY [facility] Last Admin: 08/30/17 12:45 Dose: 40 mg - Objective Vital Signs: Vital Signs Temperature 100.0 F H 08/31/17 06:00 Pulse Rate 117 H 08/31/17 06:00 Respiratory Rate 17 08/31/17 06:34 Blood Pressure 142/80 08/31/17 06:00 O2 Sat by Pulse Oximetry (%) 99 08/31/17 00:47 Constitutional: Yes: No Distress, Calm, Thin Neck: Yes: Supple Cardiovascular: Yes: Regular Rate and Rhythm Respiratory: Yes: Diminished, Mechanically Ventilated Gastrointestinal: Yes: Normal Bowel Sounds, Soft Edema: No Labs: CBC, BMP 08/29/17 07:15 08/28/17 06:10 INR, PTT INR 2.24 (0.82-1.09) H D 08/12/17 18:00 Problem List - Problems (1) Fever Code(s): R50.9 - FEVER, UNSPECIFIED Qualifiers: Fever type: unspecified Qualified Code(s): R50.9 - Fever, unspecified; R50.9 - Fever, unspecified (2) Hematuria Code(s): R31.9 - HEMATURIA, UNSPECIFIED Qualifiers: Hematuria type: unspecified type Qualified Code(s): R31.9 - Hematuria, unspecified; R31.9 - Hematuria, unspecified (3) Acute on chronic respiratory failure with hypoxia and hypercapnia Code(s): J96.21 - ACUTE AND CHRONIC RESPIRATORY FAILURE WITH HYPOXIA J96.22 - ACUTE AND CHRONIC RESPIRATORY FAILURE WITH HYPERCAPNIA (4) COPD (chronic obstructive pulmonary disease) Code(s): J44.9 - CHRONIC OBSTRUCTIVE PULMONARY DISEASE, UNSPECIFIED Qualifiers : COPD type: unspecified COPD Qualified Code(s): J44.9 - Chronic obstructive pulmonary disease, unspecified; J44.9 - Chronic obstructive pulmonary disease, unspecified; J44.9 - Chronic obstructive pulmonary disease, unspecified; J44.9 - Chronic obstructive pulmonary disease, unspecified (5) Diastolic heart failure Code(s): I50.30 - UNSPECIFIED DIASTOLIC (CONGESTIVE) HEART FAILURE Qualifiers : Heart failure chronicity: chronic Qualified Code(s): I50.32 - Chronic diastolic (congestive) heart failure; I50.32 - Chronic diastolic ( congestive) heart failure; I50.32 - Chronic diastolic (congestive) heart failure ; I50.32 - Chronic diastolic (congestive) heart failure (6) Hypothyroid Code(s): E03.9 - HYPOTHYROIDISM, UNSPECIFIED Qualifiers: Hypothyroidism type: unspecified Qualified Code(s): E03.9 - Hypothyroidism, unspecified; E03.9 - Hypothyroidism, unspecified; E03.9 - Hypothyroidism, unspecified (7) Tracheostomy dependence Code(s): Z93.0 - TRACHEOSTOMY STATUS (8) UTI (urinary tract infection) Code(s): N39.0 - URINARY TRACT INFECTION, SITE NOT SPECIFIED Qualifiers: Urinary tract infection type: site unspecified Hematuria presence: with hematuria Qualified Code(s): N39.0 - Urinary tract infection, site not specified; N39.0 - Urinary tract infection, site not specified; R31.9 - Hematuria, unspecified; R31.9 - Hematuria, unspecified (9) A-fib Code(s): I48.91 - UNSPECIFIED ATRIAL FIBRILLATION Qualifiers: Atrial fibrillation type: paroxysmal Qualified Code(s): I48.0 - Paroxysmal atrial fibrillation; I48.0 - Paroxysmal atrial fibrillation; I48.0 - Paroxysmal atrial fibrillation; I48.0 - Paroxysmal atrial fibrillation (10) Anticoagulant long-term use Code(s): Z79.01 - LONGTERM (CURRENT) USE OF ANTICOAGULANTS (11) Mediastinal mass Code(s): J98.59 - OTHER DISEASES OF MEDIASTINUM, NOT ELSEWHERE CLASSIFIED Assessment/Plan Echo 09/09/2015: nl LV/EF, nl RV, mild MR 1. 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 COPD with acute on chronic hypoxic/hypercapneic respiratory failure post tracheostomy 3. Diastolic LV dysfunction with class I NYHA classification LV congestive heart failure, compensated/euvolemic 4. Paroxysmal Atrial Fibrillation/atrial tachycardia on NOAC's, [id number] score of 4 5. HTN 6. Hypothyroidism 7. History of C. Difficile Colitis 8. History of MARLYN, resolved 9. 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 Inhaled bronchodilators, O2 to keep SpO2 >90%, and GI prophylaxis and continue vent support, SBT when fever subsides 2. Continue Cardizem CD 120 qd and Valsartan 40 qd 3. Continue Eliquis 5 bid 4. Transfuse to maintain Hgb>8.0 5. Complete course of abx. 6. Palliative care in progress
--- NOTE | 2017-08-31 12:28 | PN ---
Progress Note, [facility] - Note Progress Note: Case reviewed with staff/pulmonary. Pulmonary in agreement. PMV brought from [facility] by pt's sister. Pending PMV order in EMR to perform PMV evaluation.
--- NOTE | 2017-08-31 12:46 | PN ---
Progress Note, Physician History of Present Illness: PULMONARY ALERT,ON VENT SUPPORT AC MODE,-RESP DISTRESS. T 100 - Current Medication List Current Medications: Active Medications Acetaminophen (Tylenol -) 650 mg PO Q6H PRN PRN Reason: FEVER OR PAIN Last Admin: 08/30/17 18:18 Dose: 650 mg Albuterol/Ipratropium (Duoneb -) 1 amp NEB QIDR [facility] Last Admin: 08/31/17 11:15 Dose: 1 amp Apixaban (Eliquis -) 5 mg PO BID [facility] Last Admin: 08/30/17 22:01 Dose: 5 mg Collagenase (Santyl -) 1 applic TP DAILY [facility] Last Admin: 08/30/17 14:39 Dose: 1 applic Diltiazem HCl (Cardizem Cd -) 120 mg PO DAILY [facility] Last Admin: 08/30/17 10:13 Dose: 120 mg IV Flush (Picc Line Flush) 8 ml IVPUSH PRN PRN PRN Reason: Protocol Cefepime HCl 1 gm/ Dextrose 100 mls @ 200 mls/hr IVPB BID [facility] Last Admin: 08/30/17 22:02 Dose: 200 mls/hr Vancomycin HCl 500 mg/ (Dextrose) 100 mls @ 100 mls/hr IVPB DAILY@1200 [facility] Last Admin: 08/30/17 16:14 Dose: 100 mls/hr Lactobacillus Acidophilus (Bacid -) 1 tab PO DAILY [facility] Last Admin: 08/30/17 10:02 Dose: 1 tab Levothyroxine Sodium (Synthroid -) 88 mcg PO DAILY@0700 [facility] Last Admin: 08/31/17 06:26 Dose: 88 mcg Metronidazole (Flagyl -) 500 mg PO TID [facility] Last Admin: 08/31/17 06:26 Dose: 500 mg Nystatin (Nystop Powder -) 1 applic TP DAILY [facility] Last Admin: 08/30/17 14:38 Dose: 1 applic Tamsulosin HCl (Flomax -) 0.4 mg PO DAILY@1730 [facility] Last Admin: 08/30/17 18:19 Dose: 0.4 mg Valsartan (Diovan -) 40 mg PO DAILY [facility] Last Admin: 08/30/17 12:45 Dose: 40 mg - Objective Vital Signs: Vital Signs Temperature 100.0 F H 08/31/17 06:00 Pulse Rate 117 H 08/31/17 06:00 Respiratory Rate 17 08/31/17 06:34 Blood Pressure 142/80 08/31/17 06:00 O2 Sat by Pulse Oximetry (%) 99 08/31/17 00:47 Constitutional: Yes: Well Nourished, Calm Eyes: Yes: WNL HENT: Yes: WNL Neck: Yes: Supple (TRACH) Cardiovascular: Yes: Pulse Irregular, S1, S2 Respiratory: Yes: Rhonchi (FEW RHONCHI) Gastrointestinal: Yes: Normal Bowel Sounds, Soft Extremities: Yes: WNL Edema: No Labs: CBC, BMP 08/29/17 07:15 08/28/17 06:10 INR, PTT INR 2.24 (0.82-1.09) H D 08/12/17 18:00 Problem List - Problems (1) Fever Code(s): R50.9 - FEVER, UNSPECIFIED Qualifiers: Fever type: unspecified Qualified Code(s): R50.9 - Fever, unspecified; R50.9 - Fever, unspecified (2) Hematuria Code(s): R31.9 - HEMATURIA, UNSPECIFIED Qualifiers: Hematuria type: unspecified type Qualified Code(s): R31.9 - Hematuria, unspecified; R31.9 - Hematuria, unspecified (3) Sacral decubitus ulcer, stage II Code(s): L89.152 - PRESSURE ULCER OF SACRAL REGION, STAGE 2 (4) A-fib Code(s): I48.91 - UNSPECIFIED ATRIAL FIBRILLATION Qualifiers: Atrial fibrillation type: paroxysmal Qualified Code(s): I48.0 - Paroxysmal atrial fibrillation; I48.0 - Paroxysmal atrial fibrillation; I48.0 - Paroxysmal atrial fibrillation; I48.0 - Paroxysmal atrial fibrillation (5) Acute on chronic respiratory failure with hypoxia and hypercapnia Code(s): J96.21 - ACUTE AND CHRONIC RESPIRATORY FAILURE WITH HYPOXIA J96.22 - ACUTE AND CHRONIC RESPIRATORY FAILURE WITH HYPERCAPNIA (6) Anemia Code(s): D64.9 - ANEMIA, UNSPECIFIED Qualifiers: Anemia type: unspecified type Qualified Code(s): D64.9 - Anemia, unspecified; D64.9 - Anemia, unspecified (7) COPD (chronic obstructive pulmonary disease) Code(s): J44.9 - CHRONIC OBSTRUCTIVE PULMONARY DISEASE, UNSPECIFIED Qualifiers : COPD type: unspecified COPD Qualified Code(s): J44.9 - Chronic obstructive pulmonary disease, unspecified; J44.9 - Chronic obstructive pulmonary disease, unspecified; J44.9 - Chronic obstructive pulmonary disease, unspecified; J44.9 - Chronic obstructive pulmonary disease, unspecified (8) Chest pain Code(s): R07.9 - CHEST PAIN, UNSPECIFIED Qualifiers: Chest pain type: pleurodynia Qualified Code(s): R07.81 - Pleurodynia ; R07.81 - Pleurodynia (9) Diastolic heart failure Code(s): I50.30 - UNSPECIFIED DIASTOLIC (CONGESTIVE) HEART FAILURE Qualifiers : Heart failure chronicity: chronic Qualified Code(s): I50.32 - Chronic diastolic (congestive) heart failure; I50.32 - Chronic diastolic ( congestive) heart failure; I50.32 - Chronic diastolic (congestive) heart failure ; I50.32 - Chronic diastolic (congestive) heart failure (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 Assessment/Plan IMP ACUTE ON CHRONIC HYPOXEMIC/HYPERCAPNEIC RESPIRATORY FAILURE INVASIVE ANT MEDIASTINAL MASS FEVER ANEMIA COPD AFIB HEMATURIA DIASTOLIC HF PLAN VENT SUPPORT ON AC MODE INHALED BRONCHODILATORS ANTIBIOTICS PER ID MONITOR H+H PASSY RENEA VALVE TOLERATED DR RAGLAND Problem List - Problems (1) Fever Code(s): R50.9 - FEVER, UNSPECIFIED Qualifiers: Fever type: unspecified Qualified Code(s): R50.9 - Fever, unspecified; R50.9 - Fever, unspecified (2) Hematuria Code(s): R31.9 - HEMATURIA, UNSPECIFIED Qualifiers: Hematuria type: unspecified type Qualified Code(s): R31.9 - Hematuria, unspecified; R31.9 - Hematuria, unspecified (3) Sacral decubitus ulcer, stage II Code(s): L89.152 - PRESSURE ULCER OF SACRAL REGION, STAGE 2 (4) A-fib Code(s): I48.91 - UNSPECIFIED ATRIAL FIBRILLATION Qualifiers: (5) Acute on chronic respiratory failure with hypoxia and hypercapnia Code(s): J96.21 - ACUTE AND CHRONIC RESPIRATORY FAILURE WITH HYPOXIA J96.22 - ACUTE AND CHRONIC RESPIRATORY FAILURE WITH HYPERCAPNIA (6) Anemia Code(s): D64.9 - ANEMIA, UNSPECIFIED Qualifiers: Anemia type: unspecified type Qualified Code(s): D64.9 - Anemia, unspecified; D64.9 - Anemia, unspecified (7) COPD (chronic obstructive pulmonary disease) Code(s): J44.9 - CHRONIC OBSTRUCTIVE PULMONARY DISEASE, UNSPECIFIED Qualifiers : COPD type: unspecified COPD Qualified Code(s): J44.9 - Chronic obstructive pulmonary disease, unspecified; J44.9 - Chronic obstructive pulmonary disease, unspecified; J44.9 - Chronic obstructive pulmonary disease, unspecified; J44.9 - Chronic obstructive pulmonary disease, unspecified (8) Chest pain Code(s): R07.9 - CHEST PAIN, UNSPECIFIED Qualifiers: Chest pain type: pleurodynia Qualified Code(s): R07.81 - Pleurodynia ; R07.81 - Pleurodynia (9) Diastolic heart failure Code(s): I50.30 - UNSPECIFIED DIASTOLIC (CONGESTIVE) HEART FAILURE Qualifiers : Heart failure chronicity: chronic Qualified Code(s): I50.32 - Chronic diastolic (congestive) heart failure; I50.32 - Chronic diastolic ( congestive) heart failure; I50.32 - Chronic diastolic (congestive) heart failure ; I50.32 - Chronic diastolic (congestive) heart failure (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
--- NOTE | 2017-08-31 12:56 | CONSULT ---
Passy-Flora Valve Eval - Assessment Prior to PMV Placement Patient and/or family educated re PMV: Yes Mental Status: Awake, Alert, Attempting to Communicate Secretions: Small Amount, Moderate Amount Patient on Ventilator: Yes Suctioned: Yes Trach Type: Portex Trach Size: 7.0 Cuff Status: Inflated Passy-Flora Valve in Place - Speech Characteristics Able to Phonate with PMV in place: No Articulation: Precise - Assessment with PMV in Place Change in Mental Status with PMV in Place: No Able to Manage Secretions: Yes Pt's subjective response to PMV: Yes: Difficulty Breathing, Other (Unable to voice. Tidal volume dropped when cuffed deflated but impaired airflow through vocal cords to phonate. PMV attempted twice. CONTRAINDICATED at this time. Possibly related to UE/neck? swelling causing obstruction of airflow?) - Recommendations Recommendations: Other (PMV CONTRAINDICATED at this time. Reviewed with staff.)
--- NOTE | 2017-08-31 13:04 | PN ---
Progress Note, Physician Chief Complaint: The patient seen in her bed. Low grade fever. Dr. Vance's comments noted. History of Present Illness: 67 year old woman with PMhx of Chronic Respiratory failure on vent, COPD, Anemia , Afib, Hypothyrodism who [place] the [place] with fever and anemia and with hyponatremia and hypokalemia. Has an invasive mediastinal mass. - Current Medication List Current Medications: Active Medications Acetaminophen (Tylenol -) 650 mg PO Q6H PRN PRN Reason: FEVER OR PAIN Last Admin: 08/30/17 18:18 Dose: 650 mg Albuterol/Ipratropium (Duoneb -) 1 amp NEB QIDR [facility] Last Admin: 08/31/17 11:15 Dose: 1 amp Apixaban (Eliquis -) 5 mg PO BID [facility] Last Admin: 08/30/17 22:01 Dose: 5 mg Collagenase (Santyl -) 1 applic TP DAILY [facility] Last Admin: 08/30/17 14:39 Dose: 1 applic Diltiazem HCl (Cardizem Cd -) 120 mg PO DAILY [facility] Last Admin: 08/30/17 10:13 Dose: 120 mg IV Flush (Picc Line Flush) 8 ml IVPUSH PRN PRN PRN Reason: Protocol Cefepime HCl 1 gm/ Dextrose 100 mls @ 200 mls/hr IVPB BID [facility] Last Admin: 08/30/17 22:02 Dose: 200 mls/hr Vancomycin HCl 500 mg/ (Dextrose) 100 mls @ 100 mls/hr IVPB DAILY@1200 [facility] Last Admin: 08/30/17 16:14 Dose: 100 mls/hr Lactobacillus Acidophilus (Bacid -) 1 tab PO DAILY [facility] Last Admin: 08/30/17 10:02 Dose: 1 tab Levothyroxine Sodium (Synthroid -) 88 mcg PO DAILY@0700 [facility] Last Admin: 08/31/17 06:26 Dose: 88 mcg Metronidazole (Flagyl -) 500 mg PO TID [facility] Last Admin: 08/31/17 06:26 Dose: 500 mg Nystatin (Nystop Powder -) 1 applic TP DAILY [facility] Last Admin: 08/30/17 14:38 Dose: 1 applic Tamsulosin HCl (Flomax -) 0.4 mg PO DAILY@1730 [facility] Last Admin: 08/30/17 18:19 Dose: 0.4 mg Valsartan (Diovan -) 40 mg PO DAILY [facility] Last Admin: 08/30/17 12:45 Dose: 40 mg - Objective Vital Signs: Vital Signs Temperature 100.0 F H 08/31/17 06:00 Pulse Rate 117 H 08/31/17 06:00 Respiratory Rate 17 08/31/17 10:40 Blood Pressure 142/80 08/31/17 06:00 O2 Sat by Pulse Oximetry (%) 99 08/31/17 00:47 Constitutional: Yes: Anxious, Pallor Eyes: Yes: Conjunctiva Clear Neck: Yes: Decreased ROM Cardiovascular: Yes: S1, S2 Respiratory: Yes: CTA Bilaterally, Mechanically Ventilated Gastrointestinal: Yes: Normal Bowel Sounds, Soft Genitourinary: No: CVA Tenderness - Left, CVA Tenderness - Right Labs: CBC, BMP 08/29/17 07:15 08/28/17 06:10 INR, PTT INR 2.24 (0.82-1.09) H D 08/12/17 18:00 Problem List - Problems (1) Fever Code(s): R50.9 - FEVER, UNSPECIFIED Qualifiers: Fever type: unspecified Qualified Code(s): R50.9 - Fever, unspecified; R50.9 - Fever, unspecified (2) Hypokalemia Code(s): E87.6 - HYPOKALEMIA (3) Hyponatremia Code(s): E87.1 - HYPO-OSMOLALITY AND HYPONATREMIA (4) COPD (chronic obstructive pulmonary disease) Code(s): J44.9 - CHRONIC OBSTRUCTIVE PULMONARY DISEASE, UNSPECIFIED Qualifiers : COPD type: unspecified COPD Qualified Code(s): J44.9 - Chronic obstructive pulmonary disease, unspecified; J44.9 - Chronic obstructive pulmonary disease, unspecified; J44.9 - Chronic obstructive pulmonary disease, unspecified; J44.9 - Chronic obstructive pulmonary disease, unspecified (5) Chronic respiratory failure with hypoxia Code(s): J96.11 - CHRONIC RESPIRATORY FAILURE WITH HYPOXIA (6) Hypothyroid Code(s): E03.9 - HYPOTHYROIDISM, UNSPECIFIED Qualifiers: Hypothyroidism type: unspecified Qualified Code(s): E03.9 - Hypothyroidism, unspecified; E03.9 - Hypothyroidism, unspecified; E03.9 - Hypothyroidism, unspecified (7) Mediastinal mass Code(s): J98.59 - OTHER DISEASES OF MEDIASTINUM, NOT ELSEWHERE CLASSIFIED Assessment/Plan 67 year old female with PMhx of Chronic Respiratory failure on vent, COPD, Anemia, Afib, Hypothyrodism who presented from the [place] with fever and anemia and with hyponatremia and hypokalemia. Hyponatremia Serum Na stable. Pt appears evolemic at the present time Hypokalemia. Serum K in acceptable range Polymicrobial Sepsis/UTI/ C. diff continue Abx as per ID Vent support Aggressive mass in the mediastinum which encircles the SVC and involves the sternum and chest muscles: Palliative care notes reviewed. Thank you. Yanna Barkley MD
[2017-08-31] MEDS: APIXABAN 5 MG TABLET PO SCH ×2 (13:09→22:07)
[2017-08-31] MEDS: LACTOBACILLUS ACIDOPHILUS 1 EACH TAB (FP) PO SCH (13:09)
[2017-08-31] MEDS: VALSARTAN 40 MG TABLET (FP) PO SCH (13:09)
[2017-08-31] MEDS: NYSTATIN POWDER 100,000 UNITS/GM - 15 GM TOPICAL POWDER TP SCH (13:14)
[2017-08-31] MEDS: COLLAGENASE CLOSTRIDIUM HIST. 30 GRAMS TUBE TP SCH (14:04)
[2017-08-31] MEDS: ACETAMINOPHEN 325 MG TABLET (FP) PO PRN (14:11)
[2017-08-31] MEDS: CEFEPIME 1 GM in DEXTROSE 5%-WATER - 100 ML IVPB SCH (15:00)
--- NOTE | 2017-08-31 16:09 | PN ---
Progress Note (short form) - Note Progress Note: NAD continued fevers alert day #5 antibiotics no diarrhea asymptomatic with fevers Vital Signs Period Temp Pulse Resp BP Sys/Parra Pulse Ox Last 24 Hr 97.8 F-102.2 F 106-126 12-18 108-142/54-80 98-99 trach to vent alert cor-rrr lungs clear abd soft,nt ext no edema CBC, BMP 08/29/17 07:15 08/28/17 06:10 imp/reccd FUO- suspect malignancy related, ?lymphoma, ?thymoma- d/w Dr White-no biopsy planned as family does not wish to pursue treatment continue flagyl d/c antibiotics no change in fever curve with empiric antibiotics stools improved anemia s/p transfusion plans for DNR and comfort care advanced directives being addressed chronic resp failure- on vent via trach 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
[2017-08-31] MEDS: VANCOMYCIN 500 MG in DEXTROSE 5%-WATER - 100 ML IVPB SCH (17:22)
[2017-08-31] MEDS: TAMSULOSIN HCL 0.4 MG CAP.ER.24H (FP) PO SCH (17:24)
--- NOTE | 2017-08-31 20:29 | PN ---
Progress Note, Physician Chief Complaint: UTI, Fever History of Present Illness: NAD, on mech vent was febrile earlier poor appetite diarrhea no IV access, BLUE swelling, IV abx discontinued PO flagyl seen by ID, cardiology, pulmonary and nephrology CT chest showed possible malignant neoplasm in the mediastinum Being evaluated by Palliative care, make pt DNR?, pt alert and oriented, sisters to be involved in decision making, however there is a concern of whether to let patient know of her diagnosis. Ethics to address the issue. - Current Medication List Current Medications: Active Medications Acetaminophen (Tylenol -) 650 mg PO Q6H PRN PRN Reason: FEVER OR PAIN Last Admin: 08/31/17 14:11 Dose: 650 mg Albuterol/Ipratropium (Duoneb -) 1 amp NEB QIDR [facility] Last Admin: 08/31/17 17:32 Dose: 1 amp Apixaban (Eliquis -) 5 mg PO BID [facility] Last Admin: 08/31/17 13:09 Dose: 5 mg Collagenase (Santyl -) 1 applic TP DAILY [facility] Last Admin: 08/31/17 14:04 Dose: Not Given Diltiazem HCl (Cardizem Cd -) 120 mg PO DAILY [facility] Last Admin: 08/31/17 13:13 Dose: 120 mg IV Flush (Picc Line Flush) 8 ml IVPUSH PRN PRN PRN Reason: Protocol Lactobacillus Acidophilus (Bacid -) 1 tab PO DAILY [facility] Last Admin: 08/31/17 13:09 Dose: 1 tab Levothyroxine Sodium (Synthroid -) 88 mcg PO DAILY@0700 [facility] Last Admin: 08/31/17 06:26 Dose: 88 mcg Metronidazole (Flagyl -) 500 mg PO TID [facility] Last Admin: 08/31/17 15:00 Dose: 500 mg Nystatin (Nystop Powder -) 1 applic TP DAILY [facility] Last Admin: 08/31/17 13:14 Dose: 1 applic Tamsulosin HCl (Flomax -) 0.4 mg PO DAILY@1730 [facility] Last Admin: 08/31/17 17:24 Dose: 0.4 mg Valsartan (Diovan -) 40 mg PO DAILY [facility] Last Admin: 08/31/17 13:09 Dose: 40 mg - Objective Vital Signs: Vital Signs Temperature 97.9 F 08/31/17 19:00 Pulse Rate 113 H 08/31/17 19:00 Respiratory Rate 16 08/31/17 19:00 Blood Pressure 111/51 08/31/17 19:00 O2 Sat by Pulse Oximetry (%) 99 08/31/17 12:50 Constitutional: Yes: Well Nourished, No Distress, Calm Cardiovascular: Yes: Regular Rate and Rhythm Respiratory: Yes: Regular Musculoskeletal: Yes: WNL Extremities: Yes: WNL Edema: No Peripheral Pulses WNL: Yes Neurological: Yes: Alert, Oriented Psychiatric: Yes: Alert, Oriented Labs: CBC, BMP 08/29/17 07:15 08/28/17 06:10 INR, PTT INR 2.24 (0.82-1.09) H D 08/12/17 18:00 Problem List - Problems (1) Fever Assessment/Plan: -febrile in the afternoon -IV abx discontinued -tylenol for fever over 100.0F Code(s): R50.9 - FEVER, UNSPECIFIED Qualifiers: Fever type: unspecified Qualified Code(s): R50.9 - Fever, unspecified; R50.9 - Fever, unspecified (2) Sacral decubitus ulcer, stage II Assessment/Plan: -seen by Vascular -offloading to the area -santyl -wound culture shows MRSA and VRE Code(s): L89.152 - PRESSURE ULCER OF SACRAL REGION, STAGE 2 (3) Systemic inflammatory response syndrome (SIRS) Assessment/Plan: -seen by ID -Tylenol for fever over 100.0F Code(s): R65.10 - SIRS OF NON-INFECTIOUS ORIGIN W/O ACUTE ORGAN DYSFUNCTION (4) A-fib Assessment/Plan: -Chronic -uncontrolled 2/2 to sepsis and fever -on Eliquis Code(s): I48.91 - UNSPECIFIED ATRIAL FIBRILLATION Qualifiers: Atrial fibrillation type: paroxysmal Qualified Code(s): I48.0 - Paroxysmal atrial fibrillation; I48.0 - Paroxysmal atrial fibrillation; I48.0 - Paroxysmal atrial fibrillation; I48.0 - Paroxysmal atrial fibrillation (5) Acute and chronic respiratory failure with hypoxia Assessment/Plan: -on mechanical vent -poor prognosis knowing the existence of malignant neoplasm Code(s): J96.21 - ACUTE AND CHRONIC RESPIRATORY FAILURE WITH HYPOXIA (6) Sepsis Assessment/Plan: -febrile earlier this afternoon -seen by ID Code(s): A41.9 - SEPSIS, UNSPECIFIED ORGANISM Qualifiers: Sepsis type: sepsis due to unspecified organism Qualified Code(s): A41.9 - Sepsis, unspecified organism; A41.9 - Sepsis, unspecified organism; A41.9 - Sepsis, unspecified organism Assessment/Plan see problem list
[2017-09-01] MEDS: ALBUTEROL SO4 2.5/IPRATROPIUM 0.5 INH SOL 3 ML VIAL.NEB. NEB SCH ×4 (06:25→23:22)
[2017-09-01] MEDS: metroNIDAZOLE 250 MG TABLET PO SCH ×3 (06:33→21:21)
[2017-09-01] MEDS: ACETAMINOPHEN 325 MG TABLET (FP) PO PRN (06:33)
[2017-09-01] MEDS: LEVOTHYROXINE NA 88 MCG TABLET (FP) PO SCH (06:33)
[2017-09-01 07:30] LABS: BASOPHIL 0.5 % (0-2.0); MCH 28.4 pg (25.7-33.7); MCHC 32.4 g/dl (32.0-36.0); MEAN CELL VOLUME 87.7 fl (80-96); MEAN PLT VOLUME 8.6 fl (7.5-11.1); NEUTROPHILS 72.4 % (42.8-82.8); PLATELET COUNT 428 K/MM3 (134-434); RDW 16.3 % (11.6-15.6); WHITE BLOOD COUNT 14.6 K/mm3 (4.0-10.0)
[2017-09-01 08:02] LABS: ANION GAP 11 (8-16); CALCIUM 7.8 mg/dL (8.5-10.1); CO2 26 mmol/L (21-32); CREATININE 0.3 mg/dL (0.55-1.02); GLUCOSE,RANDOM 69 mg/dL (74-106); SGOT/AST 11 U/L (15-37); SGPT/ALT < 6 U/L (12-78)
[2017-09-01 08:03] LABS: ALK PHOS 111 U/L (45-117); BILIRUBIN,TOTAL 0.6 mg/dL (0.2-1.0); TOT PROT 5.3 g/dl (6.4-8.2)
--- NOTE | 2017-09-01 12:27 | PN ---
Progress Note, Physician History of Present Illness: Low grade fevers, resting comfortably on vent. - Current Medication List Current Medications: Active Medications Acetaminophen (Tylenol -) 650 mg PO Q6H PRN PRN Reason: FEVER OR PAIN Last Admin: 09/01/17 06:33 Dose: 650 mg Albuterol/Ipratropium (Duoneb -) 1 amp NEB QIDR [facility] Last Admin: 09/01/17 11:13 Dose: 1 amp Apixaban (Eliquis -) 5 mg PO BID [facility] Last Admin: 08/31/17 22:07 Dose: 5 mg Collagenase (Santyl -) 1 applic TP DAILY [facility] Last Admin: 08/31/17 14:04 Dose: Not Given Diltiazem HCl (Cardizem Cd -) 120 mg PO DAILY [facility] Last Admin: 08/31/17 13:13 Dose: 120 mg IV Flush (Picc Line Flush) 8 ml IVPUSH PRN PRN PRN Reason: Protocol Lactobacillus Acidophilus (Bacid -) 1 tab PO DAILY [facility] Last Admin: 08/31/17 13:09 Dose: 1 tab Levothyroxine Sodium (Synthroid -) 88 mcg PO DAILY@0700 [facility] Last Admin: 09/01/17 06:33 Dose: 88 mcg Metronidazole (Flagyl -) 500 mg PO TID [facility] Last Admin: 09/01/17 06:33 Dose: 500 mg Nystatin (Nystop Powder -) 1 applic TP DAILY [facility] Last Admin: 08/31/17 13:14 Dose: 1 applic Tamsulosin HCl (Flomax -) 0.4 mg PO DAILY@1730 [facility] Last Admin: 08/31/17 17:24 Dose: 0.4 mg Valsartan (Diovan -) 40 mg PO DAILY [facility] Last Admin: 08/31/17 13:09 Dose: 40 mg - Objective Vital Signs: Vital Signs Temperature 101.1 F H 09/01/17 06:04 Pulse Rate 77 09/01/17 09:43 Respiratory Rate 13 09/01/17 09:41 Blood Pressure 135/59 09/01/17 06:04 O2 Sat by Pulse Oximetry (%) 98 09/01/17 09:43 Constitutional: Yes: No Distress, Calm, Thin Neck: Yes: Supple Cardiovascular: Yes: Regular Rate and Rhythm Respiratory: Yes: Mechanically Ventilated, Rhonchi Gastrointestinal: Yes: Normal Bowel Sounds, Soft Edema: No Labs: CBC, BMP 09/01/17 06:15 09/01/17 06:15 INR, PTT INR 2.24 (0.82-1.09) H D 08/12/17 18:00 Problem List - Problems (1) Fever Code(s): R50.9 - FEVER, UNSPECIFIED Qualifiers: Fever type: unspecified Qualified Code(s): R50.9 - Fever, unspecified; R50.9 - Fever, unspecified (2) Hematuria Code(s): R31.9 - HEMATURIA, UNSPECIFIED Qualifiers: Hematuria type: unspecified type Qualified Code(s): R31.9 - Hematuria, unspecified; R31.9 - Hematuria, unspecified (3) Acute on chronic respiratory failure with hypoxia and hypercapnia Code(s): J96.21 - ACUTE AND CHRONIC RESPIRATORY FAILURE WITH HYPOXIA J96.22 - ACUTE AND CHRONIC RESPIRATORY FAILURE WITH HYPERCAPNIA (4) COPD (chronic obstructive pulmonary disease) Code(s): J44.9 - CHRONIC OBSTRUCTIVE PULMONARY DISEASE, UNSPECIFIED Qualifiers : COPD type: unspecified COPD Qualified Code(s): J44.9 - Chronic obstructive pulmonary disease, unspecified; J44.9 - Chronic obstructive pulmonary disease, unspecified; J44.9 - Chronic obstructive pulmonary disease, unspecified; J44.9 - Chronic obstructive pulmonary disease, unspecified (5) Diastolic heart failure Code(s): I50.30 - UNSPECIFIED DIASTOLIC (CONGESTIVE) HEART FAILURE Qualifiers : Heart failure chronicity: chronic Qualified Code(s): I50.32 - Chronic diastolic (congestive) heart failure; I50.32 - Chronic diastolic ( congestive) heart failure; I50.32 - Chronic diastolic (congestive) heart failure ; I50.32 - Chronic diastolic (congestive) heart failure (6) Hypothyroid Code(s): E03.9 - HYPOTHYROIDISM, UNSPECIFIED Qualifiers: Hypothyroidism type: unspecified Qualified Code(s): E03.9 - Hypothyroidism, unspecified; E03.9 - Hypothyroidism, unspecified; E03.9 - Hypothyroidism, unspecified (7) Tracheostomy dependence Code(s): Z93.0 - TRACHEOSTOMY STATUS (8) UTI (urinary tract infection) Code(s): N39.0 - URINARY TRACT INFECTION, SITE NOT SPECIFIED Qualifiers: Urinary tract infection type: site unspecified Hematuria presence: with hematuria Qualified Code(s): N39.0 - Urinary tract infection, site not specified; N39.0 - Urinary tract infection, site not specified; R31.9 - Hematuria, unspecified; R31.9 - Hematuria, unspecified (9) A-fib Code(s): I48.91 - UNSPECIFIED ATRIAL FIBRILLATION Qualifiers: Atrial fibrillation type: paroxysmal Qualified Code(s): I48.0 - Paroxysmal atrial fibrillation; I48.0 - Paroxysmal atrial fibrillation; I48.0 - Paroxysmal atrial fibrillation; I48.0 - Paroxysmal atrial fibrillation (10) Anticoagulant long-term use Code(s): Z79.01 - RESIDENTIAL (CURRENT) USE OF ANTICOAGULANTS (11) Mediastinal mass Code(s): J98.59 - OTHER DISEASES OF MEDIASTINUM, NOT ELSEWHERE CLASSIFIED Assessment/Plan Echo 09/09/2015: nl LV/EF, nl RV, mild MR 1. 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 COPD with acute on chronic hypoxic/hypercapneic respiratory failure post tracheostomy 3. Diastolic LV dysfunction with class I NYHA classification LV congestive heart failure, compensated/euvolemic 4. Paroxysmal Atrial Fibrillation/atrial tachycardia on NOAC's, [id number] score of 4 5. HTN 6. Hypothyroidism 7. History of C. Difficile Colitis 8. History of MARLYN, resolved 9. 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 Inhaled bronchodilators, O2 to keep SpO2 >90%, and GI prophylaxis and continue vent support, SBT when fever subsides 2. Continue Cardizem CD 120 qd and Valsartan 40 qd, replete K 3. Continue Eliquis 5 bid 4. Transfuse to maintain Hgb>8.0 5. Abx d/luisito per ID 6. Palliative care in progress
--- NOTE | 2017-09-01 12:29 | PN ---
Progress Note, Physician History of Present Illness: PULMONARY ALERT,NAD ON VENT SUPPORT AC MODE - Current Medication List Current Medications: Active Medications Acetaminophen (Tylenol -) 650 mg PO Q6H PRN PRN Reason: FEVER OR PAIN Last Admin: 09/01/17 06:33 Dose: 650 mg Albuterol/Ipratropium (Duoneb -) 1 amp NEB QIDR [facility] Last Admin: 09/01/17 11:13 Dose: 1 amp Apixaban (Eliquis -) 5 mg PO BID [facility] Last Admin: 08/31/17 22:07 Dose: 5 mg Collagenase (Santyl -) 1 applic TP DAILY [facility] Last Admin: 08/31/17 14:04 Dose: Not Given Diltiazem HCl (Cardizem Cd -) 120 mg PO DAILY [facility] Last Admin: 08/31/17 13:13 Dose: 120 mg IV Flush (Picc Line Flush) 8 ml IVPUSH PRN PRN PRN Reason: Protocol Lactobacillus Acidophilus (Bacid -) 1 tab PO DAILY [facility] Last Admin: 08/31/17 13:09 Dose: 1 tab Levothyroxine Sodium (Synthroid -) 88 mcg PO DAILY@0700 [facility] Last Admin: 09/01/17 06:33 Dose: 88 mcg Metronidazole (Flagyl -) 500 mg PO TID [facility] Last Admin: 09/01/17 06:33 Dose: 500 mg Nystatin (Nystop Powder -) 1 applic TP DAILY [facility] Last Admin: 08/31/17 13:14 Dose: 1 applic Tamsulosin HCl (Flomax -) 0.4 mg PO DAILY@1730 [facility] Last Admin: 08/31/17 17:24 Dose: 0.4 mg Valsartan (Diovan -) 40 mg PO DAILY [facility] Last Admin: 08/31/17 13:09 Dose: 40 mg - Objective Vital Signs: Vital Signs Temperature 101.1 F H 09/01/17 06:04 Pulse Rate 77 09/01/17 09:43 Respiratory Rate 13 09/01/17 09:41 Blood Pressure 135/59 09/01/17 06:04 O2 Sat by Pulse Oximetry (%) 98 09/01/17 09:43 Constitutional: Yes: Calm, Thin Eyes: Yes: WNL HENT: Yes: WNL Neck: Yes: Supple (TRACH) Cardiovascular: Yes: Pulse Irregular, S1, S2 Respiratory: Yes: Rhonchi (FEW SCATTERED RHONCHI) Gastrointestinal: Yes: Normal Bowel Sounds, Soft Extremities: Yes: WNL Edema: No Labs: CBC, BMP 09/01/17 06:15 09/01/17 06:15 INR, PTT INR 2.24 (0.82-1.09) H D 08/12/17 18:00 Problem List - Problems (1) Fever Code(s): R50.9 - FEVER, UNSPECIFIED Qualifiers: Qualified Code(s): R50.9 - Fever, unspecified; R50.9 - Fever, unspecified (2) Hematuria Code(s): R31.9 - HEMATURIA, UNSPECIFIED Qualifiers: Qualified Code(s): R31.9 - Hematuria, unspecified; R31.9 - Hematuria, unspecified (3) Sacral decubitus ulcer, stage II Code(s): L89.152 - PRESSURE ULCER OF SACRAL REGION, STAGE 2 (4) A-fib Code(s): I48.91 - UNSPECIFIED ATRIAL FIBRILLATION Qualifiers: Qualified Code(s): I48.0 - Paroxysmal atrial fibrillation; I48.0 - Paroxysmal atrial fibrillation; I48.0 - Paroxysmal atrial fibrillation; I48.0 - Paroxysmal atrial fibrillation (5) Acute on chronic respiratory failure with hypoxia and hypercapnia Code(s): J96.21 - ACUTE AND CHRONIC RESPIRATORY FAILURE WITH HYPOXIA J96.22 - ACUTE AND CHRONIC RESPIRATORY FAILURE WITH HYPERCAPNIA (6) Anemia Code(s): D64.9 - ANEMIA, UNSPECIFIED Qualifiers: Qualified Code(s): D64.9 - Anemia, unspecified; D64.9 - Anemia, unspecified (7) COPD (chronic obstructive pulmonary disease) Code(s): J44.9 - CHRONIC OBSTRUCTIVE PULMONARY DISEASE, UNSPECIFIED Qualifiers : Qualified Code(s): J44.9 - Chronic obstructive pulmonary disease, unspecified; J44.9 - Chronic obstructive pulmonary disease, unspecified; J44.9 - Chronic obstructive pulmonary disease, unspecified; J44.9 - Chronic obstructive pulmonary disease, unspecified (8) Chest pain Code(s): R07.9 - CHEST PAIN, UNSPECIFIED Qualifiers: Qualified Code(s): R07.81 - Pleurodynia; R07.81 - Pleurodynia (9) Diastolic heart failure Code(s): I50.30 - UNSPECIFIED DIASTOLIC (CONGESTIVE) HEART FAILURE Qualifiers : Qualified Code(s): I50.32 - Chronic diastolic (congestive) heart failure ; I50.32 - Chronic diastolic (congestive) heart failure; I50.32 - Chronic diastolic (congestive) heart failure; I50.32 - Chronic diastolic (congestive) heart failure (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9 - Hematuria, unspecified; R31.9 - Hematuria, unspecified (3) Sacral decubitus ulcer, stage II Code(s): L89.152 - PRESSURE ULCER OF SACRAL REGION, STAGE 2 (4) A-fib Code(s): I48.91 - UNSPECIFIED ATRIAL FIBRILLATION Qualifiers: (5) Acute on chronic respiratory failure with hypoxia and hypercapnia Code(s): J96.21 - ACUTE AND CHRONIC RESPIRATORY FAILURE WITH HYPOXIA J96.22 - ACUTE AND CHRONIC RESPIRATORY FAILURE WITH HYPERCAPNIA (6) Anemia Code(s): D64.9 - ANEMIA, UNSPECIFIED Qualifiers: Anemia type: unspecified type Qualified Code(s): D64.9 - Anemia, unspecified; D64.9 - Anemia, unspecified (7) COPD (chronic obstructive pulmonary disease) Code(s): J44.9 - CHRONIC OBSTRUCTIVE PULMONARY DISEASE, UNSPECIFIED Qualifiers : COPD type: unspecified COPD Qualified Code(s): J44.9 - Chronic obstructive pulmonary disease, unspecified; J44.9 - Chronic obstructive pulmonary disease, unspecified; J44.9 - Chronic obstructive pulmonary disease, unspecified; J44.9 - Chronic obstructive pulmonary disease, unspecified (8) Chest pain Code(s): R07.9 - CHEST PAIN, UNSPECIFIED Qualifiers: Chest pain type: pleurodynia Qualified Code(s): R07.81 - Pleurodynia ; R07.81 - Pleurodynia (9) Diastolic heart failure Code(s): I50.30 - UNSPECIFIED DIASTOLIC (CONGESTIVE) HEART FAILURE Qualifiers : Heart failure chronicity: chronic Qualified Code(s): I50.32 - Chronic diastolic (congestive) heart failure; I50.32 - Chronic diastolic ( congestive) heart failure; I50.32 - Chronic diastolic (congestive) heart failure ; I50.32 - Chronic diastolic (congestive) heart failure (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
--- NOTE | 2017-09-01 12:35 | PN ---
Progress Note, Physician Chief Complaint: The patient seen in her bed. Febrile. Off IV sites. Off IV fluids. History of Present Illness: 67 year old woman with PMhx of Chronic Respiratory failure on vent, COPD, Anemia , Afib, Hypothyrodism who presented with fever and anemia and with hyponatremia and hypokalemia. Has an invasive mediastinal mass, the etiology of this remains unknown. Maintains good urine output. - Current Medication List Current Medications: Active Medications Acetaminophen (Tylenol -) 650 mg PO Q6H PRN PRN Reason: FEVER OR PAIN Last Admin: 09/01/17 06:33 Dose: 650 mg Albuterol/Ipratropium (Duoneb -) 1 amp NEB QIDR [facility] Last Admin: 09/01/17 11:13 Dose: 1 amp Apixaban (Eliquis -) 5 mg PO BID [facility] Last Admin: 08/31/17 22:07 Dose: 5 mg Collagenase (Santyl -) 1 applic TP DAILY [facility] Last Admin: 08/31/17 14:04 Dose: Not Given Diltiazem HCl (Cardizem Cd -) 120 mg PO DAILY [facility] Last Admin: 08/31/17 13:13 Dose: 120 mg IV Flush (Picc Line Flush) 8 ml IVPUSH PRN PRN PRN Reason: Protocol Lactobacillus Acidophilus (Bacid -) 1 tab PO DAILY [facility] Last Admin: 08/31/17 13:09 Dose: 1 tab Levothyroxine Sodium (Synthroid -) 88 mcg PO DAILY@0700 [facility] Last Admin: 09/01/17 06:33 Dose: 88 mcg Metronidazole (Flagyl -) 500 mg PO TID [facility] Last Admin: 09/01/17 06:33 Dose: 500 mg Nystatin (Nystop Powder -) 1 applic TP DAILY [facility] Last Admin: 08/31/17 13:14 Dose: 1 applic Tamsulosin HCl (Flomax -) 0.4 mg PO DAILY@1730 [facility] Last Admin: 08/31/17 17:24 Dose: 0.4 mg Valsartan (Diovan -) 40 mg PO DAILY [facility] Last Admin: 08/31/17 13:09 Dose: 40 mg - Objective Vital Signs: Vital Signs Temperature 101.1 F H 09/01/17 06:04 Pulse Rate 77 09/01/17 09:43 Respiratory Rate 13 09/01/17 09:41 Blood Pressure 135/59 10/26/17 06:04 O2 Sat by Pulse Oximetry (%) 98 09/01/17 09:43 Constitutional: Yes: Pallor Neck: Yes: Trachea Midline Cardiovascular: Yes: Regular Rate and Rhythm, S1, S2 Respiratory: Yes: Regular, Diminished, Mechanically Ventilated Gastrointestinal: Yes: Normal Bowel Sounds, Soft Neurological: Yes: Lethargy Labs: CBC, BMP 09/01/17 06:15 09/01/17 06:15 INR, PTT INR 2.24 (0.82-1.09) H D 08/12/17 18:00 Problem List - Problems (1) Fever Code(s): R50.9 - FEVER, UNSPECIFIED Qualifiers: Qualified Code(s): R50.9 - Fever, unspecified; R50.9 - Fever, unspecified (2) Hypokalemia Code(s): E87.6 - HYPOKALEMIA (3) Hyponatremia Code(s): E87.1 - HYPO-OSMOLALITY AND HYPONATREMIA (4) COPD (chronic obstructive pulmonary disease) Code(s): J44.9 - CHRONIC OBSTRUCTIVE PULMONARY DISEASE, UNSPECIFIED Qualifiers : Qualified Code(s): J44.9 - Chronic obstructive pulmonary disease, unspecified; J44.9 - Chronic obstructive pulmonary disease, unspecified; J44.9 - Chronic obstructive pulmonary disease, unspecified; J44.9 - Chronic obstructive pulmonary disease, unspecified (5) Chronic respiratory failure with hypoxia Code(s): J96.11 - CHRONIC RESPIRATORY FAILURE WITH HYPOXIA (6) Hypothyroid Code(s): E03.9 - HYPOTHYROIDISM, UNSPECIFIED Qualifiers: Qualified Code(s): E03.9 - Hypothyroidism, unspecified; E03.9 - Hypothyroidism, unspecified; E03.9 - Hypothyroidism, unspecified (7) Mediastinal mass Code(s): J98.59 - OTHER DISEASES OF MEDIASTINUM, NOT ELSEWHERE CLASSIFIED Assessment/Plan 67 year old female with PMhx of Chronic Respiratory failure on vent, COPD, Anemia, Afib, Hypothyrodism who presented from the [place] with fever and anemia and with hyponatremia and hypokalemia. Hyponatremia Serum Sodium 130 mEq/L. Possibly related to non-osmotic ADH release. Will continue to restrict free water restriction. Hypokalemia. Possibly related to Metabolic Alkalosis, cellular K shift and increased Kloos in the urine (Kaliuresis. ) Will give supplements. Polymicrobial Sepsis/UTI/ C. diff continue Abx as per ID Vent support Aggressive mass in the mediastinum which encircles the SVC and involves the sternum and chest muscles: Oncology evaluation pending. KCl supplements. No indication for Tolvaptan. Will moinitor the Renal / Electrolytes with you. Thank you. Yanna Barkley MD
[2017-09-01] MEDS: LACTOBACILLUS ACIDOPHILUS 1 EACH TAB (FP) PO SCH (13:45)
[2017-09-01] MEDS: VALSARTAN 40 MG TABLET (FP) PO SCH (13:45)
[2017-09-01] MEDS: COLLAGENASE CLOSTRIDIUM HIST. 30 GRAMS TUBE TP SCH (13:47)
[2017-09-01] MEDS: APIXABAN 5 MG TABLET PO SCH ×2 (13:52→21:14)
[2017-09-01] MEDS: NYSTATIN POWDER 100,000 UNITS/GM - 15 GM TOPICAL POWDER TP SCH (13:53)
[2017-09-01] MEDS ORDERED: POTASSIUM CHLORIDE ORAL LIQUID 20 MEQ/15 ML PO ONE (17:44)
--- NOTE | 2017-09-01 17:51 | PN ---
Progress Note, Physician Chief Complaint: UTI, Fever History of Present Illness: [facility] fe[facility] earlier in AM vomiting once today in AM, but okay now poor appetite diarrhea resolved no IV access PO flagyl seen by ID, cardiology, pulmonary and nephrology CT chest showed possible malignant neoplasm in the mediastinum Being evaluated by Palliative care, make pt DNR?, pt alert and oriented, sisters to be involved in decision making, however there is a concern of whether to let patient know of her diagnosis. Ethics to address the issue. - Current Medication List Current Medications: Active Medications Acetaminophen (Tylenol -) 650 mg PO Q6H PRN PRN Reason: FEVER OR PAIN Last Admin: 09/01/17 06:33 Dose: 650 mg Albuterol/Ipratropium (Duoneb -) 1 amp NEB QIDR [facility] Last Admin: 09/01/17 11:13 Dose: 1 amp Apixaban (Eliquis -) 5 mg PO BID [facility] Last Admin: 09/01/17 13:52 Dose: 5 mg Collagenase (Santyl -) 1 applic TP DAILY [facility] Last Admin: 09/01/17 13:47 Dose: Not Given Diltiazem HCl (Cardizem Cd -) 120 mg PO DAILY [facility] Last Admin: 09/01/17 13:45 Dose: 120 mg IV Flush (Picc Line Flush) 8 ml IVPUSH PRN PRN PRN Reason: Protocol Lactobacillus Acidophilus (Bacid -) 1 tab PO DAILY [facility] Last Admin: 09/01/17 13:45 Dose: 1 tab Levothyroxine Sodium (Synthroid -) 88 mcg PO DAILY@0700 [facility] Last Admin: 09/01/17 06:33 Dose: 88 mcg Metronidazole (Flagyl -) 500 mg PO TID [facility] Last Admin: 09/01/17 13:45 Dose: 500 mg Nystatin (Nystop Powder -) 1 applic TP DAILY [facility] Last Admin: 09/01/17 13:53 Dose: 1 applic Potassium Chloride (Potassium Chloride Oral Liquid) 40 meq PO ONCE ONE Stop: 09/01/17 17:45 Tamsulosin HCl (Flomax -) 0.4 mg PO DAILY@1730 [facility] Last Admin: 08/31/17 17:24 Dose: 0.4 mg Valsartan (Diovan -) 40 mg PO DAILY [facility] Last Admin: 09/01/17 13:45 Dose: 40 mg - Objective Vital Signs: Vital Signs Temperature 98.6 F 09/01/17 14:46 Pulse Rate 120 H 09/01/17 14:46 Respiratory Rate 18 09/01/17 14:46 Blood Pressure 132/78 09/01/17 14:46 O2 Sat by Pulse Oximetry (%) 98 09/01/17 09:43 Constitutional: Yes: Well Nourished, No Distress, Calm Cardiovascular: Yes: Regular Rate and Rhythm Respiratory: Yes: Regular, Mechanically Ventilated Gastrointestinal: Yes: Normal Bowel Sounds Musculoskeletal: Yes: WNL Extremities: Yes: WNL Edema: No Peripheral Pulses WNL: Yes Neurological: Yes: Alert, Oriented Psychiatric: Yes: Alert, Oriented Labs: CBC, BMP 09/01/17 06:15 09/01/17 06:15 INR, PTT INR 2.24 (0.82-1.09) H D 08/12/17 18:00 Problem List - Problems (1) Fever Assessment/Plan: -febrile in AM -IV abx discontinued -tylenol for fever over 100.0F Code(s): R50.9 - FEVER, UNSPECIFIED Qualifiers: Fever type: unspecified Qualified Code(s): R50.9 - Fever, unspecified; R50.9 - Fever, unspecified (2) Sacral decubitus ulcer, stage II Assessment/Plan: -seen by Vascular -offloading to the area -[facility] -wound culture shows MRSA and VRE Code(s): L89.152 - PRESSURE ULCER OF SACRAL REGION, STAGE 2 (3) Systemic inflammatory response syndrome (SIRS) Assessment/Plan: -seen by ID -Tylenol for fever over 100.0F Code(s): R65.10 - SIRS OF NON-INFECTIOUS ORIGIN W/O ACUTE ORGAN DYSFUNCTION (4) A-fib Assessment/Plan: -Chronic -uncontrolled 2/2 to sepsis and fever -on Eliquis Code(s): I48.91 - UNSPECIFIED ATRIAL FIBRILLATION Qualifiers: Atrial fibrillation type: paroxysmal Qualified Code(s): I48.0 - Paroxysmal atrial fibrillation; I48.0 - Paroxysmal atrial fibrillation; I48.0 - Paroxysmal atrial fibrillation; I48.0 - Paroxysmal atrial fibrillation (5) Acute and chronic respiratory failure with hypoxia Assessment/Plan: -on mechanical vent -poor prognosis knowing the existence of malignant neoplasm Code(s): J96.21 - ACUTE AND CHRONIC RESPIRATORY FAILURE WITH HYPOXIA (6) Sepsis Assessment/Plan: -on admission and now too -febrile earlier this AM -tachycardiac -BP okay -seen by ID -overall poor prognosis Code(s): A41.9 - SEPSIS, UNSPECIFIED ORGANISM Qualifiers: Sepsis type: sepsis due to unspecified organism Qualified Code(s): A41.9 - Sepsis, unspecified organism; A41.9 - Sepsis, unspecified organism; A41.9 - Sepsis, unspecified organism Assessment/Plan see problem list
[2017-09-01] MEDS: TAMSULOSIN HCL 0.4 MG CAP.ER.24H (FP) PO SCH (18:03)
[2017-09-01] MEDS ORDERED: PT OWN MED DRAWER 7, Y5N ONE ×2 (19:26→20:47)
--- NOTE | 2017-09-01 22:40 | CONSULT ---
Consult - text type - Consultation Consultation Note: This is a 67 year old woman with PMhx of Chronic Respiratory failure on vent, COPD, Anemia, Afib, Hypothyrodism [facility] and with hyponatremia and hypokalemia. Pt awake and alert on the vent. No acute complaints. Pt s/p PRBC transfusion. Pt found to have UTI and suspected wound infection. Pt also noted to have C-diff. - Past Medical History AGRICULTURAL CHEMIST: Yes: CVA, Other (poor short term memory) Cardio/Vascular: Yes: AFIB, HTN Pulmonary: Yes: COPD, Previously Intubated, Other (RESPIRATORY FAILURE) Infectious Disease: Yes: C-Diff Endocrine: Yes: Hypothyroidism - Past Surgical History Past Surgical History: Yes: Appendectomy - Alcohol/Substance Use Hx Alcohol Use: No - Smoking History former smoker - Social History Usual Living Arrangement: Correction ADL: Family Assistance - Allergies Allergies/Adverse Reactions: Allergies Allergy/AdvReac Type Severity Reaction Status Date / Time peas Allergy Severe Difficulty Verified 07/19/17 12:10 Breathing Iodinated Contrast- Oral and Allergy Verified 07/19/17 12:10 IV Dye [Iodinated Contrast Media - IV Dye] iodine Allergy Verified 07/19/17 12:10 - Home Medications Home Medications: Ambulatory Orders Albuterol 2.5/Ipratropium 0.5 [Duoneb -] 1 neb NEB TID 02/01/16 Aspirin [Ecotrin] 81 mg PO DAILY 02/01/16 Folic Acid 1 mg PO DAILY 02/01/16 Levothyroxine [Synthroid -] 75 mcg PO DAILY 02/01/16 Lorazepam 0.5 mg PO HS 02/01/16 Mirtazapine 15 mg PO HS 02/01/16 Thiamine HCl [Vitamin B1 -] 100 mg PO DAILY 02/01/16 Vitamin B Complex Vit C No.3 [B Complex with Vitamin C] 1 each PO DAILY Ranitidine [Zantac -] 150 mg PO DAILY tablet 02/09/16 Cholestyramine/Aspartame [Questran Light Packet -] 4 gm PO BID packet 06/14/17 Acetaminophen [Tylenol .Regular Strength -] 650 mg PO Q4H PRN #0 tablet Albuterol 0.083% Nebulizer Carina [Ventolin 0.083% Nebulizer Soln -] 1 amp NEB Q4H PRN #180 amp 06/23/17 Apixaban [Eliquis -] 5 mg PO BID tablet 06/23/17 Budesonide [Pulmicort 0.25 mg Nebulizer -] 1 amp NEB BID amp 06/23/17 Melatonin 5 mg PO HS tab 06/23/17 Oxycodone HCl [Roxicodone -] 5 mg PO Q4H PRN #0 tablet MDD 6 06/23/17 Valsartan [Diovan] 320 mg PO DAILY tablet 07/27/17 Aa/Hydrolyzed Collagen, Whey [Lps Neutral Flavor Liquid] 30 ml PO BID 08/12/17 Calcium Carbonate/Vitamin D3 [Oyster Shell 500-Vit D3 200 Tb] 1 each PO DAILY Diltiazem HCl [Cardizem LA] 120 mg PO DAILY 08/12/17 Fluconazole [Diflucan -] 100 mg PO DAILY 08/12/17 Iron 325 mg PO BID 08/12/17 Lactobacillus Acidophilus [Bacid -] 1 tab PO BID 08/12/17 Levofloxacin [Levaquin] 500 mg PO DAILY 08/12/17 Pantoprazole Sodium 40 mg PO DAILY 08/12/17 Polyvinyl Alcohol [Artificial Tears] 1 drop OD DAILY 08/12/17 Febrile, mildly tachycrdid, BP-nl Constitutional: Yes: No Distress, Calm, Other (On vent vai ET tube) Eyes: Yes: Conjunctiva Clear HENT: Yes: Atraumatic Neck: Yes: Supple Cardiovascular: Yes: Regular Rate and Rhythm Respiratory: Yes: Regular, Other (Course BS) Gastrointestinal: Yes: Normal Bowel Sounds, Soft. No: Tenderness Problem List - Problems (1) COPD (chronic obstructive pulmonary disease) Code(s): J44.9 - CHRONIC OBSTRUCTIVE PULMONARY DISEASE, UNSPECIFIED Qualifiers : COPD type: unspecified COPD Qualified Code(s): J44.9 - Chronic obstructive pulmonary disease, unspecified; J44.9 - Chronic obstructive pulmonary disease, unspecified; J44.9 - Chronic obstructive pulmonary disease, unspecified; J44.9 - Chronic obstructive pulmonary disease, unspecified (2) Respiratory failure Code(s): J96.90 - RESPIRATORY FAILURE, UNSP, UNSP W HYPOXIA OR HYPERCAPNIA Qualifiers: Chronicity: acute on chronic Respiratory failure complication: hypercapnia Qualified Code(s): J96.22 - Acute and chronic respiratory failure with hypercapnia; J96.22 - Acute and chronic respiratory failure with hypercapnia; J96.22 - Acute and chronic respiratory failure with hypercapnia (3) Hyponatremia Code(s): E87.1 - HYPO-OSMOLALITY AND HYPONATREMIA (4) Hypokalemia Code(s): E87.6 - HYPOKALEMIA Assessment/Plan 67 year old woman with PMhx of Chronic Respiratory failure on vent, COPD, Anemia , Afib, Hypothyrodism [facility] .Also c.diff/UTI CT chest showed 5cm sup. mediastinal mass encroaching SVC and destroying the sternum---? lung vs lymphoma vs thymoma PAtient chronica;;y debilitated/vent dependent PAtinet wants to be involved in decision making and is agreeable to us discussing with her sister Will need to arrange family meetng regarding goals of care discussion--? biopsy and low intensity treatment considerations depending on pathology ?best supportive care ? hospice
[2017-09-02] MEDS: ACETAMINOPHEN 325 MG TABLET (FP) PO PRN ×2 (00:13→23:25)
[2017-09-02] MEDS: metroNIDAZOLE 250 MG TABLET PO SCH ×3 (06:19→23:23)
[2017-09-02] MEDS: LEVOTHYROXINE NA 88 MCG TABLET (FP) PO SCH (06:19)
[2017-09-02] MEDS: ALBUTEROL SO4 2.5/IPRATROPIUM 0.5 INH SOL 3 ML VIAL.NEB. NEB SCH ×3 (06:40→18:04)
--- NOTE | 2017-09-02 10:48 | PN ---
Progress Note (short form) - Note Progress Note: I reviewed Oncology MD's note. I spoke to Valencia the patient's sister. I told her we should have a family meeting to ask the patient if she would like to hear the results af her CT Scan of the Chest and if she agrees to hear the results then to tell the patient that there is a lung mass and further tests are recommended. Her response can then guide us to whether comfort care or supportive care will be attempted. If her regular MD's such as Dr. Ballard or Dr. White wish to speak to the patient that would be more comfortable for her but if not I will speak to her.
[2017-09-02] MEDS: POTASSIUM CHLORIDE ORAL LIQUID 20 MEQ/15 ML PO SCH (10:50)
[2017-09-02] MEDS: LACTOBACILLUS ACIDOPHILUS 1 EACH TAB (FP) PO SCH (10:50)
[2017-09-02] MEDS: VALSARTAN 40 MG TABLET (FP) PO SCH (10:50)
[2017-09-02] MEDS: NYSTATIN POWDER 100,000 UNITS/GM - 15 GM TOPICAL POWDER TP SCH (10:51)
[2017-09-02] MEDS: COLLAGENASE CLOSTRIDIUM HIST. 30 GRAMS TUBE TP SCH (10:51)
[2017-09-02] MEDS ORDERED: PT OWN MED DRAWER 7, Y5N ONE ×2 (10:52→19:48)
[2017-09-02] MEDS: APIXABAN 5 MG TABLET PO SCH ×2 (10:54→23:23)
--- NOTE | 2017-09-02 11:03 | PN ---
Progress Note, Physician Chief Complaint: UTI, Fever History of Present Illness: NAD, on mech vent was febrile earlier in AM vomiting once today in AM, but okay now poor appetite diarrhea resolved no IV access PO flagyl seen by ID, cardiology, pulmonary and nephrology CT chest showed possible malignant neoplasm in the mediastinum Being evaluated by Palliative care, make pt DNR?, pt alert and oriented, sisters to be involved in decision making, however there is a concern of whether to let patient know of her diagnosis. Ethics to address the issue. - Current Medication List Current Medications: Active Medications Acetaminophen (Tylenol -) 650 mg PO Q6H PRN PRN Reason: FEVER OR PAIN Last Admin: 09/02/17 00:13 Dose: 650 mg Albuterol/Ipratropium (Duoneb -) 1 amp NEB QIDR [facility] Last Admin: 09/02/17 06:40 Dose: 1 amp Apixaban (Eliquis -) 5 mg PO BID [facility] Last Admin: 09/02/17 10:54 Dose: 5 mg Collagenase (Santyl -) 1 applic TP DAILY [facility] Last Admin: 09/02/17 10:51 Dose: Not Given Diltiazem HCl (Cardizem Cd -) 120 mg PO DAILY [facility] Last Admin: 09/02/17 10:50 Dose: 120 mg IV Flush (Picc Line Flush) 8 ml IVPUSH PRN PRN PRN Reason: Protocol Lactobacillus Acidophilus (Bacid -) 1 tab PO DAILY [facility] Last Admin: 09/02/17 10:50 Dose: 1 tab Levothyroxine Sodium (Synthroid -) 88 mcg PO DAILY@0700 [facility] Last Admin: 09/02/17 06:19 Dose: 88 mcg Metronidazole (Flagyl -) 500 mg PO TID [facility] Last Admin: 09/02/17 06:19 Dose: 500 mg Nystatin (Nystop Powder -) 1 applic TP DAILY [facility] Last Admin: 09/02/17 10:51 Dose: 1 applic Potassium Chloride (Potassium Chloride Oral Liquid) 20 meq PO DAILY [facility] Last Admin: 09/02/17 10:50 Dose: 20 meq Tamsulosin HCl (Flomax -) 0.4 mg PO DAILY@1730 [facility] Last Admin: 09/01/17 18:03 Dose: 0.4 mg Valsartan (Diovan -) 40 mg PO DAILY [facility] Last Admin: 09/02/17 10:50 Dose: 40 mg - Objective Vital Signs: Vital Signs Temperature 98.6 F 09/02/17 08:47 Pulse Rate 111 H 09/02/17 08:47 Respiratory Rate 14 09/02/17 08:47 Blood Pressure 123/59 09/02/17 08:47 O2 Sat by Pulse Oximetry (%) 100 09/01/17 23:26 Constitutional: Yes: Well Nourished, No Distress, Calm Cardiovascular: Yes: Regular Rate and Rhythm Respiratory: Yes: Regular, Mechanically Ventilated Musculoskeletal: Yes: WNL Extremities: Yes: WNL Edema: No Peripheral Pulses WNL: Yes Neurological: Yes: Alert, Oriented Psychiatric: Yes: Alert, Oriented Labs: CBC, BMP 09/01/17 06:15 09/01/17 06:15 INR, PTT INR 2.24 (0.82-1.09) H D 08/12/17 18:00 Problem List - Problems (1) Fever Assessment/Plan: -febrile in AM -IV abx discontinued -tylenol for fever over 100.0F Code(s): R50.9 - FEVER, UNSPECIFIED Qualifiers: Fever type: unspecified Qualified Code(s): R50.9 - Fever, unspecified; R50.9 - Fever, unspecified (2) Sacral decubitus ulcer, stage II Assessment/Plan: -seen by Vascular -offloading to the area -[facility] -wound culture shows MRSA and VRE Code(s): L89.152 - PRESSURE ULCER OF SACRAL REGION, STAGE 2 (3) Systemic inflammatory response syndrome (SIRS) Assessment/Plan: -seen by ID -Tylenol for fever over 100.0F Code(s): R65.10 - SIRS OF NON-INFECTIOUS ORIGIN W/O ACUTE ORGAN DYSFUNCTION (4) A-fib Assessment/Plan: -Chronic -uncontrolled 2/2 to sepsis and fever -on Eliquis Code(s): I48.91 - UNSPECIFIED ATRIAL FIBRILLATION Qualifiers: Atrial fibrillation type: paroxysmal Qualified Code(s): I48.0 - Paroxysmal atrial fibrillation; I48.0 - Paroxysmal atrial fibrillation; I48.0 - Paroxysmal atrial fibrillation; I48.0 - Paroxysmal atrial fibrillation (5) Acute and chronic respiratory failure with hypoxia Assessment/Plan: -on mechanical vent -poor prognosis knowing the existence of malignant neoplasm Code(s): J96.21 - ACUTE AND CHRONIC RESPIRATORY FAILURE WITH HYPOXIA (6) Sepsis Assessment/Plan: -on admission and now too -febrile earlier this AM -tachycardiac -BP okay -seen by ID -overall poor prognosis Code(s): A41.9 - SEPSIS, UNSPECIFIED ORGANISM Qualifiers: Sepsis type: sepsis due to unspecified organism Qualified Code(s): A41.9 - Sepsis, unspecified organism; A41.9 - Sepsis, unspecified organism; A41.9 - Sepsis, unspecified organism Assessment/Plan see problem list
--- NOTE | 2017-09-02 11:30 | PN ---
Progress Note, Physician History of Present Illness: Low grade fevers, resting comfortably on vent, tachycardic. - Current Medication List Current Medications: Active Medications Acetaminophen (Tylenol -) 650 mg PO Q6H PRN PRN Reason: FEVER OR PAIN Last Admin: 09/02/17 00:13 Dose: 650 mg Albuterol/Ipratropium (Duoneb -) 1 amp NEB QIDR [facility] Last Admin: 09/02/17 11:17 Dose: 1 amp Apixaban (Eliquis -) 5 mg PO BID [facility] Last Admin: 09/02/17 10:54 Dose: 5 mg Collagenase (Santyl -) 1 applic TP DAILY [facility] Last Admin: 09/02/17 10:51 Dose: Not Given Diltiazem HCl (Cardizem Cd -) 120 mg PO DAILY [facility] Last Admin: 09/02/17 10:50 Dose: 120 mg IV Flush (Picc Line Flush) 8 ml IVPUSH PRN PRN PRN Reason: Protocol Lactobacillus Acidophilus (Bacid -) 1 tab PO DAILY [facility] Last Admin: 09/02/17 10:50 Dose: 1 tab Levothyroxine Sodium (Synthroid -) 88 mcg PO DAILY@0700 [facility] Last Admin: 09/02/17 06:19 Dose: 88 mcg Metronidazole (Flagyl -) 500 mg PO TID [facility] Last Admin: 09/02/17 06:19 Dose: 500 mg Nystatin (Nystop Powder -) 1 applic TP DAILY [facility] Last Admin: 09/02/17 10:51 Dose: 1 applic Potassium Chloride (Potassium Chloride Oral Liquid) 20 meq PO DAILY [facility] Last Admin: 09/02/17 10:50 Dose: 20 meq Tamsulosin HCl (Flomax -) 0.4 mg PO DAILY@1730 [facility] Last Admin: 09/01/17 18:03 Dose: 0.4 mg Valsartan (Diovan -) 40 mg PO DAILY [facility] Last Admin: 09/02/17 10:50 Dose: 40 mg - Objective Vital Signs: Vital Signs Temperature 98.6 F 09/02/17 08:47 Pulse Rate 111 H 09/02/17 08:47 Respiratory Rate 16 09/02/17 11:25 Blood Pressure 123/59 09/02/17 08:47 O2 Sat by Pulse Oximetry (%) 100 09/02/17 11:25 Constitutional: Yes: No Distress, Calm Neck: Yes: Supple Cardiovascular: Yes: Tachycardia, Pulse Irregular Respiratory: Yes: Mechanically Ventilated, Rhonchi Gastrointestinal: Yes: Soft, Hypoactive Bowel Sounds Edema: No Labs: CBC, BMP 09/01/17 06:15 09/01/17 06:15 INR, PTT INR 2.24 (0.82-1.09) H D 08/12/17 18:00 Problem List - Problems (1) Fever Code(s): R50.9 - FEVER, UNSPECIFIED Qualifiers: Fever type: unspecified Qualified Code(s): R50.9 - Fever, unspecified; R50.9 - Fever, unspecified (2) Hematuria Code(s): R31.9 - HEMATURIA, UNSPECIFIED Qualifiers: Hematuria type: unspecified type Qualified Code(s): R31.9 - Hematuria, unspecified; R31.9 - Hematuria, unspecified (3) Acute on chronic respiratory failure with hypoxia and hypercapnia Code(s): J96.21 - ACUTE AND CHRONIC RESPIRATORY FAILURE WITH HYPOXIA J96.22 - ACUTE AND CHRONIC RESPIRATORY FAILURE WITH HYPERCAPNIA (4) COPD (chronic obstructive pulmonary disease) Code(s): J44.9 - CHRONIC OBSTRUCTIVE PULMONARY DISEASE, UNSPECIFIED Qualifiers : COPD type: unspecified COPD Qualified Code(s): J44.9 - Chronic obstructive pulmonary disease, unspecified; J44.9 - Chronic obstructive pulmonary disease, unspecified; J44.9 - Chronic obstructive pulmonary disease, unspecified; J44.9 - Chronic obstructive pulmonary disease, unspecified (5) Diastolic heart failure Code(s): I50.30 - UNSPECIFIED DIASTOLIC (CONGESTIVE) HEART FAILURE Qualifiers : Heart failure chronicity: chronic Qualified Code(s): I50.32 - Chronic diastolic (congestive) heart failure; I50.32 - Chronic diastolic ( congestive) heart failure; I50.32 - Chronic diastolic (congestive) heart failure ; I50.32 - Chronic diastolic (congestive) heart failure (6) Hypothyroid Code(s): E03.9 - HYPOTHYROIDISM, UNSPECIFIED Qualifiers: Hypothyroidism type: unspecified Qualified Code(s): E03.9 - Hypothyroidism, unspecified; E03.9 - Hypothyroidism, unspecified; E03.9 - Hypothyroidism, unspecified (7) Tracheostomy dependence Code(s): Z93.0 - TRACHEOSTOMY STATUS (8) UTI (urinary tract infection) Code(s): N39.0 - URINARY TRACT INFECTION, SITE NOT SPECIFIED Qualifiers: Urinary tract infection type: site unspecified Hematuria presence: with hematuria Qualified Code(s): N39.0 - Urinary tract infection, site not specified; N39.0 - Urinary tract infection, site not specified; R31.9 - Hematuria, unspecified; R31.9 - Hematuria, unspecified (9) A-fib Code(s): I48.91 - UNSPECIFIED ATRIAL FIBRILLATION Qualifiers: Atrial fibrillation type: paroxysmal Qualified Code(s): I48.0 - Paroxysmal atrial fibrillation; I48.0 - Paroxysmal atrial fibrillation; I48.0 - Paroxysmal atrial fibrillation; I48.0 - Paroxysmal atrial fibrillation (10) Anticoagulant long-term use Code(s): Z79.01 - ASSOCIATE RESEARCH SCIENTIST (CURRENT) USE OF ANTICOAGULANTS (11) Mediastinal mass Code(s): J98.59 - OTHER DISEASES OF MEDIASTINUM, NOT ELSEWHERE CLASSIFIED Assessment/Plan Echo 09/09/2015: nl LV/EF, nl RV, mild MR 1. 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 COPD with acute on chronic hypoxic/hypercapneic respiratory failure post tracheostomy 3. Diastolic LV dysfunction with class I NYHA classification LV congestive heart failure, compensated/euvolemic 4. Paroxysmal Atrial Fibrillation/atrial tachycardia on NOAC's, [id number] score of 4 5. HTN 6. Hypothyroidism 7. History of C. Difficile Colitis 8. History of MARLYN, resolved 9. 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 Inhaled bronchodilators, O2 to keep SpO2 >90%, and GI prophylaxis and continue vent support, SBT when fever subsides 2. Increase Cardizem CD 180 qd and Valsartan 40 qd, replete K 3. Continue Eliquis 5 bid 4. Transfuse to maintain Hgb>8.0 5. Abx d/luisito per ID 6. Palliative care in progress
--- NOTE | 2017-09-02 11:54 | PN ---
Progress Note, Physician Chief Complaint: The patient seen in her bed. Afebrile now. But spiked fever before. On mechanical vent. One episode of vomiting. No IV access. On PO Flagyl. Seems comfortable, but weak. Discussions about possible Palliative care in progress. Maintains good urine output. History of Present Illness: 67 year old woman with PMhx of Chronic Respiratory failure on vent, COPD, Anemia , Afib, Hypothyrodism who presented with fever and anemia and with Hyponatremia and Hypokalemia. Has an invasive mediastinal mass, the etiology of this remains unknown. Maintains good urine output. - Current Medication List Current Medications: Active Medications Acetaminophen (Tylenol -) 650 mg PO Q6H PRN PRN Reason: FEVER OR PAIN Last Admin: 09/02/17 00:13 Dose: 650 mg Albuterol/Ipratropium (Duoneb -) 1 amp NEB QIDR [facility] Last Admin: 09/02/17 11:17 Dose: 1 amp Apixaban (Eliquis -) 5 mg PO BID [facility] Last Admin: 09/02/17 10:54 Dose: 5 mg Collagenase (Santyl -) 1 applic TP DAILY [facility] Last Admin: 09/02/17 10:51 Dose: Not Given Diltiazem HCl (Cardizem Cd -) 180 mg PO DAILY [facility] IV Flush (Picc Line Flush) 8 ml IVPUSH PRN PRN PRN Reason: Protocol Lactobacillus Acidophilus (Bacid -) 1 tab PO DAILY [facility] Last Admin: 09/02/17 10:50 Dose: 1 tab Levothyroxine Sodium (Synthroid -) 88 mcg PO DAILY@0700 [facility] Last Admin: 09/02/17 06:19 Dose: 88 mcg Metronidazole (Flagyl -) 500 mg PO TID [facility] Last Admin: 09/02/17 06:19 Dose: 500 mg Nystatin (Nystop Powder -) 1 applic TP DAILY [facility] Last Admin: 09/02/17 10:51 Dose: 1 applic Potassium Chloride (Potassium Chloride Oral Liquid) 20 meq PO DAILY [facility] Last Admin: 09/02/17 10:50 Dose: 20 meq Tamsulosin HCl (Flomax -) 0.4 mg PO DAILY@1730 [facility] Last Admin: 09/01/17 18:03 Dose: 0.4 mg Valsartan (Diovan -) 40 mg PO DAILY [facility] Last Admin: 09/02/17 10:50 Dose: 40 mg - Objective Vital Signs: Vital Signs Temperature 98.6 F 09/02/17 08:47 Pulse Rate 111 H 09/02/17 08:47 Respiratory Rate 16 09/02/17 11:25 Blood Pressure 123/59 09/02/17 08:47 O2 Sat by Pulse Oximetry (%) 100 09/02/17 11:25 Constitutional: Yes: Anxious, Mild Distress Eyes: Yes: Conjunctiva Clear HENT: Yes: Atraumatic Neck: Yes: Trachea Midline Cardiovascular: Yes: S1, S2 Respiratory: Yes: Regular, Diminished, Mechanically Ventilated Gastrointestinal: Yes: Normal Bowel Sounds, Soft Genitourinary: No: CVA Tenderness - Left, CVA Tenderness - Right Musculoskeletal: Yes: Back Pain Labs: CBC, BMP 09/01/17 06:15 09/01/17 06:15 INR, PTT INR 2.24 (0.82-1.09) H D 08/12/17 18:00 Problem List - Problems (1) Fever Code(s): R50.9 - FEVER, UNSPECIFIED Qualifiers: Fever type: unspecified Qualified Code(s): R50.9 - Fever, unspecified; R50.9 - Fever, unspecified (2) Hypokalemia Code(s): E87.6 - HYPOKALEMIA (3) Hyponatremia Code(s): E87.1 - HYPO-OSMOLALITY AND HYPONATREMIA (4) COPD (chronic obstructive pulmonary disease) Code(s): J44.9 - CHRONIC OBSTRUCTIVE PULMONARY DISEASE, UNSPECIFIED Qualifiers : COPD type: unspecified COPD Qualified Code(s): J44.9 - Chronic obstructive pulmonary disease, unspecified; J44.9 - Chronic obstructive pulmonary disease, unspecified; J44.9 - Chronic obstructive pulmonary disease, unspecified; J44.9 - Chronic obstructive pulmonary disease, unspecified (5) Chronic respiratory failure with hypoxia Code(s): J96.11 - CHRONIC RESPIRATORY FAILURE WITH HYPOXIA (6) Hypothyroid Code(s): E03.9 - HYPOTHYROIDISM, UNSPECIFIED Qualifiers: Hypothyroidism type: unspecified Qualified Code(s): E03.9 - Hypothyroidism, unspecified; E03.9 - Hypothyroidism, unspecified; E03.9 - Hypothyroidism, unspecified (7) Mediastinal mass Code(s): J98.59 - OTHER DISEASES OF MEDIASTINUM, NOT ELSEWHERE CLASSIFIED Assessment/Plan 67 year old female with PMhx of Chronic Respiratory failure on vent, COPD, Anemia, Afib, Hypothyrodism who presented from the [place] with fever and anemia and with hyponatremia and hypokalemia. Hyponatremia: No labs from today. Last Serum Sodium 130 mEq/L. Possibly related to non-osmotic ADH release. Will restrict free water restriction. Hypokalemia. Possibly related to Metabolic Alkalosis, cellular K shift and increased K loss in the urine (Kaliuresis. ) Will give supplements. Polymicrobial Sepsis/UTI/ C. diff continue Abx as per ID Vent support Aggressive mass in the mediastinum which encircles the SVC and involves the sternum and chest muscles: Oncology evaluation pending. KCl supplements. Will moinitor the Renal / Electrolytes with you. Thank you. Yanna Barkley MD
--- NOTE | 2017-09-02 13:05 | PN ---
Progress Note, Physician History of Present Illness: pulmonary alert,on vent support,-resp distress. - Current Medication List Current Medications: Active Medications Acetaminophen (Tylenol -) 650 mg PO Q6H PRN PRN Reason: FEVER OR PAIN Last Admin: 09/02/17 00:13 Dose: 650 mg Albuterol/Ipratropium (Duoneb -) 1 amp NEB QIDR [facility] Last Admin: 09/02/17 11:17 Dose: 1 amp Apixaban (Eliquis -) 5 mg PO BID [facility] Last Admin: 09/02/17 10:54 Dose: 5 mg Collagenase (Santyl -) 1 applic TP DAILY [facility] Last Admin: 09/02/17 10:51 Dose: Not Given Diltiazem HCl (Cardizem Cd -) 180 mg PO DAILY [facility] IV Flush (Picc Line Flush) 8 ml IVPUSH PRN PRN PRN Reason: Protocol Lactobacillus Acidophilus (Bacid -) 1 tab PO DAILY [facility] Last Admin: 09/02/17 10:50 Dose: 1 tab Levothyroxine Sodium (Synthroid -) 88 mcg PO DAILY@0700 [facility] Last Admin: 09/02/17 06:19 Dose: 88 mcg Metronidazole (Flagyl -) 500 mg PO TID [facility] Last Admin: 09/02/17 06:19 Dose: 500 mg Nystatin (Nystop Powder -) 1 applic TP DAILY [facility] Last Admin: 09/02/17 10:51 Dose: 1 applic Potassium Chloride (Potassium Chloride Oral Liquid) 20 meq PO DAILY [facility] Last Admin: 09/02/17 10:50 Dose: 20 meq Tamsulosin HCl (Flomax -) 0.4 mg PO DAILY@1730 [facility] Last Admin: 09/01/17 18:03 Dose: 0.4 mg Valsartan (Diovan -) 40 mg PO DAILY [facility] Last Admin: 09/02/17 10:50 Dose: 40 mg - Objective Vital Signs: Vital Signs Temperature 98.6 F 09/02/17 08:47 Pulse Rate 111 H 09/02/17 08:47 Respiratory Rate 16 09/02/17 11:25 Blood Pressure 123/59 09/02/17 08:47 O2 Sat by Pulse Oximetry (%) 100 09/02/17 11:25 Constitutional: Yes: Calm, Thin Eyes: Yes: WNL HENT: Yes: WNL Neck: Yes: WNL Cardiovascular: Yes: Pulse Irregular, S1, S2 Respiratory: Yes: Rhonchi (few rhonchi) Gastrointestinal: Yes: Normal Bowel Sounds, Soft Extremities: Yes: WNL Edema: No Labs: CBC, BMP Problem List - Problems (1) Fever Code(s): R50.9 - FEVER, UNSPECIFIED Qualifiers: Fever type: unspecified Qualified Code(s): R50.9 - Fever, unspecified; R50.9 - Fever, unspecified (2) Hematuria Code(s): R31.9 - HEMATURIA, UNSPECIFIED Qualifiers: Hematuria type: unspecified type Qualified Code(s): R31.9 - Hematuria, unspecified; R31.9 - Hematuria, unspecified (3) Sacral decubitus ulcer, stage II Code(s): L89.152 - PRESSURE ULCER OF SACRAL REGION, STAGE 2 (4) A-fib Code(s): I48.91 - UNSPECIFIED ATRIAL FIBRILLATION Qualifiers: Atrial fibrillation type: paroxysmal Qualified Code(s): I48.0 - Paroxysmal atrial fibrillation; I48.0 - Paroxysmal atrial fibrillation; I48.0 - Paroxysmal atrial fibrillation; I48.0 - Paroxysmal atrial fibrillation (5) Acute on chronic respiratory failure with hypoxia and hypercapnia Code(s): J96.21 - ACUTE AND CHRONIC RESPIRATORY FAILURE WITH HYPOXIA J96.22 - ACUTE AND CHRONIC RESPIRATORY FAILURE WITH HYPERCAPNIA (6) Anemia Code(s): D64.9 - ANEMIA, UNSPECIFIED Qualifiers: Anemia type: unspecified type Qualified Code(s): D64.9 - Anemia, unspecified; D64.9 - Anemia, unspecified (7) COPD (chronic obstructive pulmonary disease) Code(s): J44.9 - CHRONIC OBSTRUCTIVE PULMONARY DISEASE, UNSPECIFIED Qualifiers : COPD type: unspecified COPD Qualified Code(s): J44.9 - Chronic obstructive pulmonary disease, unspecified; J44.9 - Chronic obstructive pulmonary disease, unspecified; J44.9 - Chronic obstructive pulmonary disease, unspecified; J44.9 - Chronic obstructive pulmonary disease, unspecified (8) Chest pain Code(s): R07.9 - CHEST PAIN, UNSPECIFIED Qualifiers: Chest pain type: pleurodynia Qualified Code(s): R07.81 - Pleurodynia ; R07.81 - Pleurodynia (9) Diastolic heart failure Code(s): I50.30 - UNSPECIFIED DIASTOLIC (CONGESTIVE) HEART FAILURE Qualifiers : Heart failure chronicity: chronic Qualified Code(s): I50.32 - Chronic diastolic (congestive) heart failure; I50.32 - Chronic diastolic ( congestive) heart failure; I50.32 - Chronic diastolic (congestive) heart failure ; I50.32 - Chronic diastolic (congestive) heart failure (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9 - Hematuria, unspecified; R31.9 - Hematuria, unspecified (3) Sacral decubitus ulcer, stage II Code(s): L89.152 - PRESSURE ULCER OF SACRAL REGION, STAGE 2 (4) A-fib Code(s): I48.91 - UNSPECIFIED ATRIAL FIBRILLATION Qualifiers: (5) Acute on chronic respiratory failure with hypoxia and hypercapnia Code(s): J96.21 - ACUTE AND CHRONIC RESPIRATORY FAILURE WITH HYPOXIA J96.22 - ACUTE AND CHRONIC RESPIRATORY FAILURE WITH HYPERCAPNIA (6) Anemia Code(s): D64.9 - ANEMIA, UNSPECIFIED Qualifiers: Anemia type: unspecified type Qualified Code(s): D64.9 - Anemia, unspecified; D64.9 - Anemia, unspecified (7) COPD (chronic obstructive pulmonary disease) Code(s): J44.9 - CHRONIC OBSTRUCTIVE PULMONARY DISEASE, UNSPECIFIED Qualifiers : COPD type: unspecified COPD Qualified Code(s): J44.9 - Chronic obstructive pulmonary disease, unspecified; J44.9 - Chronic obstructive pulmonary disease, unspecified; J44.9 - Chronic obstructive pulmonary disease, unspecified; J44.9 - Chronic obstructive pulmonary disease, unspecified (8) Chest pain Code(s): R07.9 - CHEST PAIN, UNSPECIFIED Qualifiers: Chest pain type: pleurodynia Qualified Code(s): R07.81 - Pleurodynia ; R07.81 - Pleurodynia (9) Diastolic heart failure Code(s): I50.30 - UNSPECIFIED DIASTOLIC (CONGESTIVE) HEART FAILURE Qualifiers : Heart failure chronicity: chronic Qualified Code(s): I50.32 - Chronic diastolic (congestive) heart failure; I50.32 - Chronic diastolic ( congestive) heart failure; I50.32 - Chronic diastolic (congestive) heart failure ; I50.32 - Chronic diastolic (congestive) heart failure (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
--- NOTE | 2017-09-02 15:16 | PN ---
Progress Note, Physician Chief Complaint: UTI, Fever History of Present Illness: NAD[facility] febrile earlier in AM vomiting once today in AM, but okay now poor appetite diarrhea resolved no IV access PO flagyl seen by ID, cardiology, pulmonary and nephrology CT chest showed possible malignant neoplasm in the mediastinum Being evaluated by Palliative care, make pt DNR?, pt alert and oriented, sisters to be involved in decision making, however there is a concern of whether to let patient know of her diagnosis. Ethics to address the issue. - Current Medication List Current Medications: Active Medications Acetaminophen (Tylenol -) 650 mg PO Q6H PRN PRN Reason: FEVER OR PAIN Last Admin: 09/02/17 00:13 Dose: 650 mg Albuterol/Ipratropium (Duoneb -) 1 amp NEB QIDR [facility] Last Admin: 09/02/17 11:17 Dose: 1 amp Apixaban (Eliquis -) 5 mg PO BID [facility] Last Admin: 09/02/17 10:54 Dose: 5 mg Collagenase (Santyl -) 1 applic TP DAILY [facility] Last Admin: 09/02/17 10:51 Dose: Not Given Diltiazem HCl (Cardizem Cd -) 180 mg PO DAILY [facility] IV Flush (Picc Line Flush) 8 ml IVPUSH PRN PRN PRN Reason: Protocol Lactobacillus Acidophilus (Bacid -) 1 tab PO DAILY [facility] Last Admin: 09/02/17 10:50 Dose: 1 tab Levothyroxine Sodium (Synthroid -) 88 mcg PO DAILY@0700 [facility] Last Admin: 09/02/17 06:19 Dose: 88 mcg Metronidazole (Flagyl -) 500 mg PO TID [facility] Last Admin: 09/02/17 14:52 Dose: 500 mg Nystatin (Nystop Powder -) 1 applic TP DAILY [facility] Last Admin: 09/02/17 10:51 Dose: 1 applic Potassium Chloride (Potassium Chloride Oral Liquid) 20 meq PO DAILY [facility] Last Admin: 09/02/17 10:50 Dose: 20 meq Tamsulosin HCl (Flomax -) 0.4 mg PO DAILY@1730 [facility] Last Admin: 09/01/17 18:03 Dose: 0.4 mg Valsartan (Diovan -) 40 mg PO DAILY [facility] Last Admin: 09/02/17 10:50 Dose: 40 mg - Objective Vital Signs: Vital Signs Temperature 98.6 F 09/02/17 08:47 Pulse Rate 111 H 09/02/17 08:47 Respiratory Rate 18 09/02/17 14:45 Blood Pressure 123/59 09/02/17 08:47 O2 Sat by Pulse Oximetry (%) 100 09/02/17 11:25 Constitutional: Yes: Well Nourished, No Distress, Calm Cardiovascular: Yes: Regular Rate and Rhythm Respiratory: Yes: Regular Gastrointestinal: Yes: Normal Bowel Sounds Edema: No Peripheral Pulses WNL: Yes Neurological: Yes: Alert, Oriented Psychiatric: Yes: Alert, Oriented Labs: CBC, BMP 09/01/17 06:15 09/01/17 06:15 INR, PTT INR 2.24 (0.82-1.09) H D 08/12/17 18:00 Problem List - Problems (1) Fever Assessment/Plan: -febrile in AM -IV abx discontinued -tylenol for fever over 100.0F Code(s): R50.9 - FEVER, UNSPECIFIED Qualifiers: Fever type: unspecified Qualified Code(s): R50.9 - Fever, unspecified; R50.9 - Fever, unspecified (2) Sacral decubitus ulcer, stage II Assessment/Plan: -seen by Vascular -offloading to the area -sant -wound culture shows MRSA and VRE Code(s): L89.152 - PRESSURE ULCER OF SACRAL REGION, STAGE 2 (3) Systemic inflammatory response syndrome (SIRS) Assessment/Plan: -seen by ID -Tylenol for fever over 100.0F Code(s): R65.10 - SIRS OF NON-INFECTIOUS ORIGIN W/O ACUTE ORGAN DYSFUNCTION (4) A-fib Assessment/Plan: -Chronic -uncontrolled 2/2 to sepsis and fever -on Eliquis Code(s): I48.91 - UNSPECIFIED ATRIAL FIBRILLATION Qualifiers: Atrial fibrillation type: paroxysmal Qualified Code(s): I48.0 - Paroxysmal atrial fibrillation; I48.0 - Paroxysmal atrial fibrillation; I48.0 - Paroxysmal atrial fibrillation; I48.0 - Paroxysmal atrial fibrillation (5) Acute and chronic respiratory failure with hypoxia Assessment/Plan: -on mechanical vent -poor prognosis knowing the existence of malignant neoplasm Code(s): J96.21 - ACUTE AND CHRONIC RESPIRATORY FAILURE WITH HYPOXIA (6) Sepsis Assessment/Plan: -on admission and now too -febrile earlier this AM -tachycardiac -BP okay -seen by ID -overall poor prognosis Code(s): A41.9 - SEPSIS, UNSPECIFIED ORGANISM Qualifiers: Sepsis type: sepsis due to unspecified organism Qualified Code(s): A41.9 - Sepsis, unspecified organism; A41.9 - Sepsis, unspecified organism; A41.9 - Sepsis, unspecified organism Assessment/Plan see problem list
[2017-09-02] MEDS: TAMSULOSIN HCL 0.4 MG CAP.ER.24H (FP) PO SCH (17:58)
[2017-09-03] MEDS ORDERED: PT OWN MED DRAWER 7, Y5N ONE ×3 (06:03→13:39)
[2017-09-03] MEDS: LEVOTHYROXINE NA 88 MCG TABLET (FP) PO SCH (06:07)
[2017-09-03] MEDS: metroNIDAZOLE 250 MG TABLET PO SCH ×3 (06:07→21:21)
[2017-09-03] MEDS: ALBUTEROL SO4 2.5/IPRATROPIUM 0.5 INH SOL 3 ML VIAL.NEB. NEB SCH ×4 (06:52→18:36)
[2017-09-03 09:34] LABS: ALBUMIN 1.8 g/dl (3.4-5.0); ANION GAP 10 (8-16); BILIRUBIN,TOTAL 0.4 mg/dL (0.2-1.0); CALCIUM 7.5 mg/dL (8.5-10.1); CO2 26 mmol/L (21-32); CREATININE 0.3 mg/dL (0.55-1.02); GLUCOSE,RANDOM 84 mg/dL (74-106); SGOT/AST 11 U/L (15-37); SGPT/ALT < 6 U/L (12-78); TOT PROT 4.8 g/dl (6.4-8.2)
[2017-09-03 09:35] LABS: ALK PHOS 102 U/L (45-117)
[2017-09-03] MEDS: POTASSIUM CHLORIDE ORAL LIQUID 20 MEQ/15 ML PO SCH (11:15)
[2017-09-03] MEDS: VALSARTAN 40 MG TABLET (FP) PO SCH (11:17)
[2017-09-03] MEDS: LACTOBACILLUS ACIDOPHILUS 1 EACH TAB (FP) PO SCH (11:17)
[2017-09-03] MEDS: APIXABAN 5 MG TABLET PO SCH ×2 (11:17→21:22)
[2017-09-03] MEDS: NYSTATIN POWDER 100,000 UNITS/GM - 15 GM TOPICAL POWDER TP SCH (11:19)
[2017-09-03] MEDS: COLLAGENASE CLOSTRIDIUM HIST. 30 GRAMS TUBE TP SCH (11:20)
--- NOTE | 2017-09-03 11:21 | PN ---
Progress Note, Physician Chief Complaint: asleep comfortable - Current Medication List Current Medications: Active Medications Acetaminophen (Tylenol -) 650 mg PO Q6H PRN PRN Reason: FEVER OR PAIN Last Admin: 09/02/17 23:25 Dose: 650 mg Albuterol/Ipratropium (Duoneb -) 1 amp NEB QIDR [facility] Last Admin: 09/03/17 06:52 Dose: 1 amp Apixaban (Eliquis -) 5 mg PO BID [facility] Last Admin: 09/03/17 11:17 Dose: 5 mg Collagenase (Santyl -) 1 applic TP DAILY [facility] Last Admin: 09/03/17 11:20 Dose: Not Given Diltiazem HCl (Cardizem Cd -) 180 mg PO DAILY [facility] Last Admin: 09/03/17 11:17 Dose: 180 mg IV Flush (Picc Line Flush) 8 ml IVPUSH PRN PRN PRN Reason: Protocol Lactobacillus Acidophilus (Bacid -) 1 tab PO DAILY [facility] Last Admin: 09/03/17 11:17 Dose: 1 tab Levothyroxine Sodium (Synthroid -) 88 mcg PO DAILY@0700 [facility] Last Admin: 09/03/17 06:07 Dose: 88 mcg Metronidazole (Flagyl -) 500 mg PO TID [facility] Last Admin: 09/03/17 06:07 Dose: 500 mg Nystatin (Nystop Powder -) 1 applic TP DAILY [facility] Last Admin: 09/03/17 11:19 Dose: 1 applic Potassium Chloride (Potassium Chloride Oral Liquid) 20 meq PO DAILY [facility] Last Admin: 09/03/17 11:15 Dose: 20 meq Tamsulosin HCl (Flomax -) 0.4 mg PO DAILY@1730 [facility] Last Admin: 09/02/17 17:58 Dose: 0.4 mg Valsartan (Diovan -) 40 mg PO DAILY [facility] Last Admin: 09/03/17 11:17 Dose: 40 mg - Objective Vital Signs: Vital Signs Temperature 98 F 09/03/17 06:00 Pulse Rate 124 H 09/03/17 02:00 Respiratory Rate 14 09/03/17 06:52 Blood Pressure 109/51 09/03/17 02:00 O2 Sat by Pulse Oximetry (%) 100 09/02/17 20:25 Constitutional: Yes: No Distress Eyes: Yes: WNL HENT: Yes: WNL Neck: Yes: WNL Cardiovascular: Yes: WNL Respiratory: Yes: Mechanically Ventilated Gastrointestinal: Yes: WNL Genitourinary: Yes: Incontinence Musculoskeletal: Yes: Muscle Weakness Extremities: Yes: Other Edema: No Peripheral Pulses WNL: Yes Integumentary: Yes: Pressure Ulcer, Venous Stasis Changes Wound/Incision: Yes: Dressing Dry and Intact Neurological: Yes: Pre-Existing Deficit ...Motor Strength: LLE, RLE Psychiatric: Yes: Other Labs: CBC, BMP 09/01/17 06:15 09/03/17 08:59 INR, PTT INR 2.24 (0.82-1.09) H D 08/12/17 18:00 Problem List - Problems (1) Fever Code(s): R50.9 - FEVER, UNSPECIFIED Qualifiers: Fever type: unspecified Qualified Code(s): R50.9 - Fever, unspecified; R50.9 - Fever, unspecified (2) Hematuria Code(s): R31.9 - HEMATURIA, UNSPECIFIED Qualifiers: Hematuria type: unspecified type Qualified Code(s): R31.9 - Hematuria, unspecified; R31.9 - Hematuria, unspecified (3) Sacral decubitus ulcer, stage II Code(s): L89.152 - PRESSURE ULCER OF SACRAL REGION, STAGE 2 (4) A-fib Code(s): I48.91 - UNSPECIFIED ATRIAL FIBRILLATION Qualifiers: Atrial fibrillation type: paroxysmal Qualified Code(s): I48.0 - Paroxysmal atrial fibrillation; I48.0 - Paroxysmal atrial fibrillation; I48.0 - Paroxysmal atrial fibrillation; I48.0 - Paroxysmal atrial fibrillation (5) Acute on chronic respiratory failure with hypoxia and hypercapnia Code(s): J96.21 - ACUTE AND CHRONIC RESPIRATORY FAILURE WITH HYPOXIA J96.22 - ACUTE AND CHRONIC RESPIRATORY FAILURE WITH HYPERCAPNIA (6) Chronic respiratory failure with hypoxia Code(s): J96.11 - CHRONIC RESPIRATORY FAILURE WITH HYPOXIA Assessment/Plan vent support continued check bmp k+ 3.4 repeat in am cultures/labs/events all reviewed
--- NOTE | 2017-09-03 11:40 | PN ---
Progress Note (short form) - Note Progress Note: Awake on AC Mode of vent, 40% FiO2. No acute events overnight. Intake & Output 08/31/17 09/01/17 09/02/17 09/03/17 23:59 23:59 23:59 23:59 Intake Total 875 620 610 120 Balance 875 620 610 120 Weight 93 lb 0.4 oz Last Vital Signs Temp Pulse Resp BP Pulse Ox 98 F 124 H 14 109/51 100 09/03/17 06:00 09/03/17 02:00 09/03/17 06:52 09/03/17 02:00 09/02/17 20:25 Active Medications Acetaminophen (Tylenol -) 650 mg PO Q6H PRN PRN Reason: FEVER OR PAIN Last Admin: 09/02/17 23:25 Dose: 650 mg Albuterol/Ipratropium (Duoneb -) 1 amp NEB QIDR [facility] Last Admin: 09/03/17 06:52 Dose: 1 amp Apixaban (Eliquis -) 5 mg PO BID [facility] Last Admin: 09/03/17 11:17 Dose: 5 mg Collagenase (Santyl -) 1 applic TP DAILY [facility] Last Admin: 09/03/17 11:20 Dose: Not Given Diltiazem HCl (Cardizem Cd -) 180 mg PO DAILY [facility] Last Admin: 09/03/17 11:17 Dose: 180 mg IV Flush (Picc Line Flush) 8 ml IVPUSH PRN PRN PRN Reason: Protocol Lactobacillus Acidophilus (Bacid -) 1 tab PO DAILY [facility] Last Admin: 09/03/17 11:17 Dose: 1 tab Levothyroxine Sodium (Synthroid -) 88 mcg PO DAILY@0700 [facility] Last Admin: 09/03/17 06:07 Dose: 88 mcg Metronidazole (Flagyl -) 500 mg PO TID [facility] Last Admin: 09/03/17 06:07 Dose: 500 mg Nystatin (Nystop Powder -) 1 applic TP DAILY [facility] Last Admin: 09/03/17 11:19 Dose: 1 applic Potassium Chloride (Potassium Chloride Oral Liquid) 20 meq PO DAILY [facility] Last Admin: 09/03/17 11:15 Dose: 20 meq Tamsulosin HCl (Flomax -) 0.4 mg PO DAILY@1730 [facility] Last Admin: 09/02/17 17:58 Dose: 0.4 mg Valsartan (Diovan -) 40 mg PO DAILY [facility] Last Admin: 09/03/17 11:17 Dose: 40 mg Constitutional: Yes: Awake and responsive, vented Eyes: Yes: WNL HENT: Yes: Nasal Congestion Neck: Yes: Supple (trach) Cardiovascular: Yes: Pulse Irregular, S1, S2 Respiratory: Yes: Scattered rhonchi, no wheeze Gastrointestinal: Yes: Normal Bowel Sounds, Soft Extremities: Yes: WNL Edema: No Laboratory Results - last 24 hr 09/03/17 08:59 Sodium 131 L Potassium 3.4 L Chloride 95 L Carbon Dioxide 26 Anion Gap 10 BUN 3 L Creatinine 0.3 L Creat Clearance w eGFR > 60 Random Glucose 84 D Calcium 7.5 L Total Bilirubin 0.4 D AST 11 L ALT < 6 L Alkaline Phosphatase 102 Total Protein 4.8 L Albumin 1.8 L Problem List - Problems (1) Fever Code(s): R50.9 - FEVER, UNSPECIFIED Qualifiers: Fever type: unspecified Qualified Code(s): R50.9 - Fever, unspecified; R50.9 - Fever, unspecified (2) Hematuria Code(s): R31.9 - HEMATURIA, UNSPECIFIED Qualifiers: Hematuria type: unspecified type Qualified Code(s): R31.9 - Hematuria, unspecified; R31.9 - Hematuria, unspecified (3) Sacral decubitus ulcer, stage II Code(s): L89.152 - PRESSURE ULCER OF SACRAL REGION, STAGE 2 (4) A-fib Code(s): I48.91 - UNSPECIFIED ATRIAL FIBRILLATION Qualifiers: (5) Acute on chronic respiratory failure with hypoxia and hypercapnia Code(s): J96.21 - ACUTE AND CHRONIC RESPIRATORY FAILURE WITH HYPOXIA J96.22 - ACUTE AND CHRONIC RESPIRATORY FAILURE WITH HYPERCAPNIA (6) Anemia Code(s): D64.9 - ANEMIA, UNSPECIFIED Qualifiers: Anemia type: unspecified type Qualified Code(s): D64.9 - Anemia, unspecified; D64.9 - Anemia, unspecified (7) COPD (chronic obstructive pulmonary disease) Code(s): J44.9 - CHRONIC OBSTRUCTIVE PULMONARY DISEASE, UNSPECIFIED Qualifiers : COPD type: unspecified COPD Qualified Code(s): J44.9 - Chronic obstructive pulmonary disease, unspecified; J44.9 - Chronic obstructive pulmonary disease, unspecified; J44.9 - Chronic obstructive pulmonary disease, unspecified; J44.9 - Chronic obstructive pulmonary disease, unspecified (8) Chest pain Code(s): R07.9 - CHEST PAIN, UNSPECIFIED Qualifiers: Chest pain type: pleurodynia Qualified Code(s): R07.81 - Pleurodynia ; R07.81 - Pleurodynia (9) Diastolic heart failure Code(s): I50.30 - UNSPECIFIED DIASTOLIC (CONGESTIVE) HEART FAILURE Qualifiers : Heart failure chronicity: chronic Qualified Code(s): I50.32 - Chronic diastolic (congestive) heart failure; I50.32 - Chronic diastolic ( congestive) heart failure; I50.32 - Chronic diastolic (congestive) heart failure ; I50.32 - Chronic diastolic (congestive) heart failure (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
[2017-09-03 13:47] LABS: MCH 29.1 pg (25.7-33.7); MCHC 33.4 g/dl (32.0-36.0); MEAN PLT VOLUME 8.2 fl (7.5-11.1); PLATELET COUNT 469 K/MM3 (134-434); RDW 16.1 % (11.6-15.6); WHITE BLOOD COUNT 9.5 K/mm3 (4.0-10.0)
[2017-09-03 14:16] LABS: METAMYELOCYTE 2 % (0-2); PLATELET ESTIMATE INCREASED (NORMAL); TOTAL CELLS COUNTED 100
[2017-09-03] MEDS ORDERED: POTASSIUM CHLORIDE ORAL LIQUID 20 MEQ/15 ML PO ONE (14:30)
[2017-09-03] MEDS: TAMSULOSIN HCL 0.4 MG CAP.ER.24H (FP) PO SCH (17:47)
[2017-09-03] MEDS: ACETAMINOPHEN 325 MG TABLET (FP) PO PRN (21:20)
--- NOTE | 2017-09-03 22:36 | PN ---
Progress Note, Physician History of Present Illness: Low grade fevers, resting comfortably on vent, tachycardic. - Current Medication List Current Medications: Active Medications Acetaminophen (Tylenol -) 650 mg PO Q6H PRN PRN Reason: FEVER OR PAIN Last Admin: 09/03/17 21:20 Dose: 650 mg Albuterol/Ipratropium (Duoneb -) 1 amp NEB QIDR [facility] Last Admin: 09/03/17 18:36 Dose: 1 amp Apixaban (Eliquis -) 5 mg PO BID [facility] Last Admin: 09/03/17 21:22 Dose: 5 mg Collagenase (Santyl -) 1 applic TP DAILY [facility] Last Admin: 09/03/17 11:20 Dose: Not Given Diltiazem HCl (Cardizem Cd -) 180 mg PO DAILY [facility] Last Admin: 09/03/17 11:17 Dose: 180 mg IV Flush (Picc Line Flush) 8 ml IVPUSH PRN PRN PRN Reason: Protocol Lactobacillus Acidophilus (Bacid -) 1 tab PO DAILY [facility] Last Admin: 09/03/17 11:17 Dose: 1 tab Levothyroxine Sodium (Synthroid -) 88 mcg PO DAILY@0700 [facility] Last Admin: 09/03/17 06:07 Dose: 88 mcg Metronidazole (Flagyl -) 500 mg PO TID [facility] Last Admin: 09/03/17 21:21 Dose: 500 mg Nystatin (Nystop Powder -) 1 applic TP DAILY [facility] Last Admin: 09/03/17 11:19 Dose: 1 applic Potassium Chloride (Potassium Chloride Oral Liquid) 40 meq PO DAILY [facility] Tamsulosin HCl (Flomax -) 0.4 mg PO DAILY@1730 [facility] Last Admin: 09/03/17 17:47 Dose: 0.4 mg Valsartan (Diovan -) 40 mg PO DAILY [facility] Last Admin: 09/03/17 11:17 Dose: 40 mg - Objective Vital Signs: Vital Signs Temperature 99.4 F 09/03/17 19:00 Pulse Rate 122 H 09/03/17 19:00 Respiratory Rate 16 09/03/17 19:00 Blood Pressure 95/50 09/03/17 19:00 O2 Sat by Pulse Oximetry (%) 97 09/03/17 11:32 Constitutional: Yes: No Distress, Calm, Thin Cardiovascular: Yes: Tachycardia Respiratory: Yes: Mechanically Ventilated, Rhonchi Gastrointestinal: Yes: Normal Bowel Sounds, Soft Edema: No Labs: CBC, BMP 09/03/17 12:53 09/03/17 08:59 INR, PTT INR 2.24 (0.82-1.09) H D 08/12/17 18:00 Problem List - Problems (1) Fever Code(s): R50.9 - FEVER, UNSPECIFIED Qualifiers: Fever type: unspecified Qualified Code(s): R50.9 - Fever, unspecified; R50.9 - Fever, unspecified (2) Hematuria Code(s): R31.9 - HEMATURIA, UNSPECIFIED Qualifiers: Hematuria type: unspecified type Qualified Code(s): R31.9 - Hematuria, unspecified; R31.9 - Hematuria, unspecified (3) Acute on chronic respiratory failure with hypoxia and hypercapnia Code(s): J96.21 - ACUTE AND CHRONIC RESPIRATORY FAILURE WITH HYPOXIA J96.22 - ACUTE AND CHRONIC RESPIRATORY FAILURE WITH HYPERCAPNIA (4) COPD (chronic obstructive pulmonary disease) Code(s): J44.9 - CHRONIC OBSTRUCTIVE PULMONARY DISEASE, UNSPECIFIED Qualifiers : COPD type: unspecified COPD Qualified Code(s): J44.9 - Chronic obstructive pulmonary disease, unspecified; J44.9 - Chronic obstructive pulmonary disease, unspecified; J44.9 - Chronic obstructive pulmonary disease, unspecified; J44.9 - Chronic obstructive pulmonary disease, unspecified (5) Diastolic heart failure Code(s): I50.30 - UNSPECIFIED DIASTOLIC (CONGESTIVE) HEART FAILURE Qualifiers : Heart failure chronicity: chronic Qualified Code(s): I50.32 - Chronic diastolic (congestive) heart failure; I50.32 - Chronic diastolic ( congestive) heart failure; I50.32 - Chronic diastolic (congestive) heart failure ; I50.32 - Chronic diastolic (congestive) heart failure (6) Hypothyroid Code(s): E03.9 - HYPOTHYROIDISM, UNSPECIFIED Qualifiers: Hypothyroidism type: unspecified Qualified Code(s): E03.9 - Hypothyroidism, unspecified; E03.9 - Hypothyroidism, unspecified; E03.9 - Hypothyroidism, unspecified (7) Tracheostomy dependence Code(s): Z93.0 - TRACHEOSTOMY STATUS (8) UTI (urinary tract infection) Code(s): N39.0 - URINARY TRACT INFECTION, SITE NOT SPECIFIED Qualifiers: Urinary tract infection type: site unspecified Hematuria presence: with hematuria Qualified Code(s): N39.0 - Urinary tract infection, site not specified; N39.0 - Urinary tract infection, site not specified; R31.9 - Hematuria, unspecified; R31.9 - Hematuria, unspecified (9) A-fib Code(s): I48.91 - UNSPECIFIED ATRIAL FIBRILLATION Qualifiers: Atrial fibrillation type: paroxysmal Qualified Code(s): I48.0 - Paroxysmal atrial fibrillation; I48.0 - Paroxysmal atrial fibrillation; I48.0 - Paroxysmal atrial fibrillation; I48.0 - Paroxysmal atrial fibrillation (10) Anticoagulant long-term use Code(s): Z79.01 - [employer] (CURRENT) USE OF ANTICOAGULANTS (11) Mediastinal mass Code(s): J98.59 - OTHER DISEASES OF MEDIASTINUM, NOT ELSEWHERE CLASSIFIED Assessment/Plan Echo 09/09/2015: nl LV/EF, nl RV, mild MR 1. 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 COPD with acute on chronic hypoxic/hypercapneic respiratory failure post tracheostomy 3. Diastolic LV dysfunction with class I NYHA classification LV congestive heart failure, compensated/euvolemic 4. Paroxysmal Atrial Fibrillation/atrial tachycardia on NOAC's, [id number] score of 4 5. HTN 6. Hypothyroidism 7. History of C. Difficile Colitis 8. History of MARLYN, resolved 9. 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 Inhaled bronchodilators, O2 to keep SpO2 >90%, and GI prophylaxis and continue vent support, SBT and PMV when fever subsides 2. Increased Cardizem CD 180 qd and Valsartan 40 qd, replete K 3. Continue Eliquis 5 bid 4. Transfuse to maintain Hgb>8.0 5. Abx d/luisito per ID 6. Palliative care in progress
[2017-09-04] MEDS: ALBUTEROL SO4 2.5/IPRATROPIUM 0.5 INH SOL 3 ML VIAL.NEB. NEB SCH ×5 (00:59→23:23)
[2017-09-04] MEDS: LEVOTHYROXINE NA 88 MCG TABLET (FP) PO SCH (06:35)
[2017-09-04] MEDS: metroNIDAZOLE 250 MG TABLET PO SCH ×3 (06:35→22:09)
--- NOTE | 2017-09-04 11:08 | PN ---
Progress Note, Physician Chief Complaint: ASLEEP COMFORTABLE REFUSED LABS TODAY - Current Medication List Current Medications: Active Medications Acetaminophen (Tylenol -) 650 mg PO Q6H PRN PRN Reason: FEVER OR PAIN Last Admin: 09/03/17 21:20 Dose: 650 mg Albuterol/Ipratropium (Duoneb -) 1 amp NEB QIDR [facility] Last Admin: 09/04/17 06:14 Dose: 1 amp Apixaban (Eliquis -) 5 mg PO BID [facility] Last Admin: 09/03/17 21:22 Dose: 5 mg Collagenase (Santyl -) 1 applic TP DAILY [facility] Last Admin: 09/03/17 11:20 Dose: Not Given Diltiazem HCl (Cardizem Cd -) 180 mg PO DAILY [facility] Last Admin: 09/03/17 11:17 Dose: 180 mg IV Flush (Picc Line Flush) 8 ml IVPUSH PRN PRN PRN Reason: Protocol Lactobacillus Acidophilus (Bacid -) 1 tab PO DAILY [facility] Last Admin: 09/03/17 11:17 Dose: 1 tab Levothyroxine Sodium (Synthroid -) 88 mcg PO DAILY@0700 [facility] Last Admin: 09/04/17 06:35 Dose: 88 mcg Metronidazole (Flagyl -) 500 mg PO TID [facility] Last Admin: 09/04/17 06:35 Dose: 500 mg Nystatin (Nystop Powder -) 1 applic TP DAILY [facility] Last Admin: 09/03/17 11:19 Dose: 1 applic Potassium Chloride (Potassium Chloride Oral Liquid) 40 meq PO DAILY [facility] Tamsulosin HCl (Flomax -) 0.4 mg PO DAILY@1730 [facility] Last Admin: 09/03/17 17:47 Dose: 0.4 mg Valsartan (Diovan -) 40 mg PO DAILY [facility] Last Admin: 09/03/17 11:17 Dose: 40 mg - Objective Vital Signs: Vital Signs Temperature 98.4 F 09/04/17 06:42 Pulse Rate 102 H 09/04/17 06:42 Respiratory Rate 16 09/04/17 06:42 Blood Pressure 98/56 09/04/17 06:42 O2 Sat by Pulse Oximetry (%) 98 09/03/17 21:00 Constitutional: Yes: Mild Distress Eyes: Yes: WNL HENT: Yes: WNL Neck: Yes: WNL Cardiovascular: Yes: WNL Respiratory: Yes: Mechanically Ventilated, Other Gastrointestinal: Yes: WNL Genitourinary: Yes: Incontinence Musculoskeletal: Yes: Muscle Weakness Extremities: Yes: Other Edema: No Peripheral Pulses WNL: Yes Integumentary: Yes: Pressure Ulcer, Venous Stasis Changes Wound/Incision: Yes: Dressing Dry and Intact, Other Neurological: Yes: Pre-Existing Deficit, Weakness ...Motor Strength: LLE, RLE Psychiatric: Yes: Other Labs: CBC, BMP 09/03/17 12:53 09/03/17 08:59 INR, PTT INR 2.24 (0.82-1.09) H D 08/12/17 18:00 Problem List - Problems (1) Fever Code(s): R50.9 - FEVER, UNSPECIFIED Qualifiers: Fever type: unspecified Qualified Code(s): R50.9 - Fever, unspecified; R50.9 - Fever, unspecified (2) Hematuria Code(s): R31.9 - HEMATURIA, UNSPECIFIED Qualifiers: Hematuria type: unspecified type Qualified Code(s): R31.9 - Hematuria, unspecified; R31.9 - Hematuria, unspecified (3) Sacral decubitus ulcer, stage II Code(s): L89.152 - PRESSURE ULCER OF SACRAL REGION, STAGE 2 (4) A-fib Code(s): I48.91 - UNSPECIFIED ATRIAL FIBRILLATION Qualifiers: Atrial fibrillation type: paroxysmal Qualified Code(s): I48.0 - Paroxysmal atrial fibrillation; I48.0 - Paroxysmal atrial fibrillation; I48.0 - Paroxysmal atrial fibrillation; I48.0 - Paroxysmal atrial fibrillation (5) Acute on chronic respiratory failure with hypoxia and hypercapnia Code(s): J96.21 - ACUTE AND CHRONIC RESPIRATORY FAILURE WITH HYPOXIA J96.22 - ACUTE AND CHRONIC RESPIRATORY FAILURE WITH HYPERCAPNIA (6) Chronic respiratory failure with hypoxia Code(s): J96.11 - CHRONIC RESPIRATORY FAILURE WITH HYPOXIA Assessment/Plan [facility] REFUSED LABS, ORDERED FOR TOMORROW F/U K+ LEVELS
--- NOTE | 2017-09-04 11:28 | PN ---
Progress Note (short form) - Note Progress Note: Awake on AC Mode of vent, 40% FiO2. No acute events overnight. Intake & Output 09/01/17 09/02/17 09/03/17 09/04/17 23:59 23:59 23:59 23:59 Intake Total 620 610 520 200 Balance 620 610 520 200 Weight 93 lb 0.4 oz Last Vital Signs Temp Pulse Resp BP Pulse Ox 98.4 F 102 H 16 98/56 98 09/04/17 06:42 09/04/17 06:42 09/04/17 06:42 09/04/17 06:42 09/03/17 21:00 Active Medications Acetaminophen (Tylenol -) 650 mg PO Q6H PRN PRN Reason: FEVER OR PAIN Last Admin: 09/03/17 21:20 Dose: 650 mg Albuterol/Ipratropium (Duoneb -) 1 amp NEB QIDR [facility] Last Admin: 09/04/17 06:14 Dose: 1 amp Apixaban (Eliquis -) 5 mg PO BID [facility] Last Admin: 09/03/17 21:22 Dose: 5 mg Collagenase (Santyl -) 1 applic TP DAILY [facility] Last Admin: 09/03/17 11:20 Dose: Not Given Diltiazem HCl (Cardizem Cd -) 180 mg PO DAILY [facility] Last Admin: 09/03/17 11:17 Dose: 180 mg IV Flush (Picc Line Flush) 8 ml IVPUSH PRN PRN PRN Reason: Protocol Lactobacillus Acidophilus (Bacid -) 1 tab PO DAILY [facility] Last Admin: 09/03/17 11:17 Dose: 1 tab Levothyroxine Sodium (Synthroid -) 88 mcg PO DAILY@0700 [facility] Last Admin: 09/04/17 06:35 Dose: 88 mcg Metronidazole (Flagyl -) 500 mg PO TID [facility] Last Admin: 09/04/17 06:35 Dose: 500 mg Nystatin (Nystop Powder -) 1 applic TP DAILY [facility] Last Admin: 09/03/17 11:19 Dose: 1 applic Potassium Chloride (Potassium Chloride Oral Liquid) 40 meq PO DAILY [facility] Tamsulosin HCl (Flomax -) 0.4 mg PO DAILY@1730 [facility] Last Admin: 09/03/17 17:47 Dose: 0.4 mg Valsartan (Diovan -) 40 mg PO DAILY [facility] Last Admin: 09/03/17 11:17 Dose: 40 mg Constitutional: Yes: Awake and responsive, vented Eyes: Yes: WNL HENT: Yes: Nasal Congestion Neck: Yes: Supple (trach) Cardiovascular: Yes: Pulse Irregular, S1, S2 Respiratory: Yes: Scattered rhonchi, no wheeze Gastrointestinal: Yes: Normal Bowel Sounds, Soft Extremities: Yes: WNL Edema: No Laboratory Results - last 24 hr 09/03/17 12:53 WBC 9.5 D RBC 2.78 L Hgb 8.1 L Hct 24.2 L MCV 87.0 MCH 29.1 MCHC 33.4 RDW 16.1 H Plt Count 469 H MPV 8.2 Total Counted 100 Neutrophils % No Result Required. Neutrophils % (Manual) 57 D Band Neuts % (Manual) 3 D Lymphocytes % No Result Required. Lymphocytes % (Manual) 20 D Monocytes % (Manual) 13 H Eosinophils % (Manual) 5 H Platelet Estimate Increased Platelet Comment No clumping noted Problem List - Problems (1) Fever Code(s): R50.9 - FEVER, UNSPECIFIED Qualifiers: Fever type: unspecified Qualified Code(s): R50.9 - Fever, unspecified; R50.9 - Fever, unspecified (2) Hematuria Code(s): R31.9 - HEMATURIA, UNSPECIFIED Qualifiers: Hematuria type: unspecified type Qualified Code(s): R31.9 - Hematuria, unspecified; R31.9 - Hematuria, unspecified (3) Sacral decubitus ulcer, stage II Code(s): L89.152 - PRESSURE ULCER OF SACRAL REGION, STAGE 2 (4) A-fib Code(s): I48.91 - UNSPECIFIED ATRIAL FIBRILLATION Qualifiers: (5) Acute on chronic respiratory failure with hypoxia and hypercapnia Code(s): J96.21 - ACUTE AND CHRONIC RESPIRATORY FAILURE WITH HYPOXIA J96.22 - ACUTE AND CHRONIC RESPIRATORY FAILURE WITH HYPERCAPNIA (6) Anemia Code(s): D64.9 - ANEMIA, UNSPECIFIED Qualifiers: Anemia type: unspecified type Qualified Code(s): D64.9 - Anemia, unspecified; D64.9 - Anemia, unspecified (7) COPD (chronic obstructive pulmonary disease) Code(s): J44.9 - CHRONIC OBSTRUCTIVE PULMONARY DISEASE, UNSPECIFIED Qualifiers : COPD type: unspecified COPD Qualified Code(s): J44.9 - Chronic obstructive pulmonary disease, unspecified; J44.9 - Chronic obstructive pulmonary disease, unspecified; J44.9 - Chronic obstructive pulmonary disease, unspecified; J44.9 - Chronic obstructive pulmonary disease, unspecified (8) Chest pain Code(s): R07.9 - CHEST PAIN, UNSPECIFIED Qualifiers: Chest pain type: pleurodynia Qualified Code(s): R07.81 - Pleurodynia ; R07.81 - Pleurodynia (9) Diastolic heart failure Code(s): I50.30 - UNSPECIFIED DIASTOLIC (CONGESTIVE) HEART FAILURE Qualifiers : Heart failure chronicity: chronic Qualified Code(s): I50.32 - Chronic diastolic (congestive) heart failure; I50.32 - Chronic diastolic ( congestive) heart failure; I50.32 - Chronic diastolic (congestive) heart failure ; I50.32 - Chronic diastolic (congestive) heart failure (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
[2017-09-04] MEDS: LACTOBACILLUS ACIDOPHILUS 1 EACH TAB (FP) PO SCH (12:13)
[2017-09-04] MEDS: POTASSIUM CHLORIDE ORAL LIQUID 20 MEQ/15 ML PO SCH (12:13)
[2017-09-04] MEDS: VALSARTAN 40 MG TABLET (FP) PO SCH (12:13)
[2017-09-04] MEDS: APIXABAN 5 MG TABLET PO SCH ×2 (12:13→22:09)
[2017-09-04] MEDS ORDERED: ONDANSETRON *ODT* 4 MG TABLET SL PRN (15:12)
[2017-09-04] MEDS: COLLAGENASE CLOSTRIDIUM HIST. 30 GRAMS TUBE TP SCH (15:45)
[2017-09-04] MEDS: NYSTATIN POWDER 100,000 UNITS/GM - 15 GM TOPICAL POWDER TP SCH (18:35)
[2017-09-04] MEDS: TAMSULOSIN HCL 0.4 MG CAP.ER.24H (FP) PO SCH (18:36)
[2017-09-04] MEDS: ACETAMINOPHEN 325 MG TABLET (FP) PO PRN (18:36)
[2017-09-04] MEDS ORDERED: ZOLPIDEM TARTRATE 5 MG TABLET PO ONE ×2 (18:45→22:00)
[2017-09-05] MEDS: LEVOTHYROXINE NA 88 MCG TABLET (FP) PO SCH (06:40)
[2017-09-05] MEDS: metroNIDAZOLE 250 MG TABLET PO SCH ×3 (06:40→22:57)
[2017-09-05] MEDS: ALBUTEROL SO4 2.5/IPRATROPIUM 0.5 INH SOL 3 ML VIAL.NEB. NEB SCH ×4 (06:51→23:08)
[2017-09-05 08:17] LABS: MCH 29.7 pg (25.7-33.7); MCHC 33.5 g/dl (32.0-36.0); MEAN CELL VOLUME 88.5 fl (80-96); MEAN PLT VOLUME 8.2 fl (7.5-11.1); PLATELET COUNT 520 K/MM3 (134-434); RDW 16.7 % (11.6-15.6); WHITE BLOOD COUNT 10.8 K/mm3 (4.0-10.0)
[2017-09-05 09:08] LABS: ANION GAP 13 (8-16); CALCIUM 7.7 mg/dL (8.5-10.1); CO2 21 mmol/L (21-32); CREATININE 0.5 mg/dL (0.55-1.02); GLUCOSE,RANDOM 85 mg/dL (74-106); MAGNESIUM 1.5 mg/dL (1.8-2.4)
[2017-09-05] MEDS: NYSTATIN POWDER 100,000 UNITS/GM - 15 GM TOPICAL POWDER TP SCH (10:13)
[2017-09-05] MEDS: POTASSIUM CHLORIDE ORAL LIQUID 20 MEQ/15 ML PO SCH (10:13)
[2017-09-05] MEDS: APIXABAN 5 MG TABLET PO SCH ×2 (10:14→22:58)
[2017-09-05] MEDS: LACTOBACILLUS ACIDOPHILUS 1 EACH TAB (FP) PO SCH (10:14)
[2017-09-05] MEDS: VALSARTAN 40 MG TABLET (FP) PO SCH (10:14)
[2017-09-05] MEDS ORDERED: MAGNESIUM SULF 50% (8.12 MEQ/2 ML-1 GM VIAL) IVPB ONE (10:42)
--- NOTE | 2017-09-05 10:52 | PN ---
Progress Note, Physician Chief Complaint: sleeping in bed afebrile ethics committee to have meeting with family- regarding whether patient should be told about the results of chest CT will call sister lianne today again - Current Medication List Current Medications: Active Medications Acetaminophen (Tylenol -) 650 mg PO Q6H PRN PRN Reason: FEVER OR PAIN Last Admin: 09/04/17 18:36 Dose: 650 mg Albuterol/Ipratropium (Duoneb -) 1 amp NEB QIDR [facility] Last Admin: 09/05/17 06:51 Dose: 1 amp Apixaban (Eliquis -) 5 mg PO BID [facility] Last Admin: 09/05/17 10:14 Dose: 5 mg Collagenase (Santyl -) 1 applic TP DAILY [facility] Last Admin: 09/04/17 15:45 Dose: Not Given Diltiazem HCl (Cardizem Cd -) 180 mg PO DAILY [facility] Last Admin: 09/05/17 10:14 Dose: 180 mg IV Flush (Picc Line Flush) 8 ml IVPUSH PRN PRN PRN Reason: Protocol Lactobacillus Acidophilus (Bacid -) 1 tab PO DAILY [facility] Last Admin: 09/05/17 10:14 Dose: 1 tab Levothyroxine Sodium (Synthroid -) 88 mcg PO DAILY@0700 [facility] Last Admin: 09/05/17 06:40 Dose: 88 mcg Magnesium Sulfate (Magnesium Sulfate) 2 gm IVPB ONCE ONE Stop: 09/05/17 10:43 Metronidazole (Flagyl -) 500 mg PO TID [facility] Last Admin: 09/05/17 06:40 Dose: 500 mg Nystatin (Nystop Powder -) 1 applic TP DAILY [facility] Last Admin: 09/05/17 10:13 Dose: 1 applic Ondansetron HCl (Zofran Odt -) 4 mg SL Q6H PRN PRN Reason: NAUSEA Last Admin: 09/04/17 15:40 Dose: 4 mg Potassium Chloride (Potassium Chloride Oral Liquid) 40 meq PO DAILY [facility] Last Admin: 09/05/17 10:13 Dose: 40 meq Tamsulosin HCl (Flomax -) 0.4 mg PO DAILY@1730 [facility] Last Admin: 09/04/17 18:36 Dose: 0.4 mg Valsartan (Diovan -) 40 mg PO DAILY [facility] Last Admin: 09/05/17 10:14 Dose: 40 mg - Objective Vital Signs: Vital Signs Temperature 98.1 F 09/05/17 06:12 Pulse Rate 117 H 09/05/17 06:12 Respiratory Rate 14 09/05/17 06:58 Blood Pressure 93/47 09/05/17 06:12 O2 Sat by Pulse Oximetry (%) 98 09/04/17 21:09 Constitutional: Yes: Calm, Pallor, Thin, Other Neck: Yes: Other (trach) Cardiovascular: Yes: Pulse Irregular, S1, S2 Respiratory: Yes: Diminished, Mechanically Ventilated Gastrointestinal: Yes: Normal Bowel Sounds, Soft Edema: No Labs: CBC, BMP 09/05/17 06:58 09/05/17 06:58 INR, PTT INR 2.24 (0.82-1.09) H D 08/12/17 18:00 Problem List - Problems (1) Fever Assessment/Plan: fever resolved iv abx stopped diarrhea - po flagyl for c diff cultures so far negative Microbiology 08/25/17 10:27 Blood - Peripheral Venous Blood Culture - Preliminary NO GROWTH OBTAINED AFTER 24 HOURS, INCUBATION TO CONTINUE FOR 4 DAYS. 08/25/17 10:27 Blood - Peripheral Venous Blood Culture - Preliminary NO GROWTH OBTAINED AFTER 24 HOURS, INCUBATION TO CONTINUE FOR 4 DAYS. fever ?secondary to mass- unclear but will give iv abx for now d/w sister lianne in detail about this new development and weight loss and decline in health Microbiology 08/23/17 08:30 Stool Clostridium difficile Antigen (TEDDY) - Final 08/23/17 08:30 Stool Clostridium difficile Toxin Assay - Final Code(s): R50.9 - FEVER, UNSPECIFIED Qualifiers: Fever type: unspecified Qualified Code(s): R50.9 - Fever, unspecified; R50.9 - Fever, unspecified (2) A-fib Assessment/Plan: cardizem for rate control eliquis Code(s): I48.91 - UNSPECIFIED ATRIAL FIBRILLATION Qualifiers: Atrial fibrillation type: paroxysmal Qualified Code(s): I48.0 - Paroxysmal atrial fibrillation; I48.0 - Paroxysmal atrial fibrillation; I48.0 - Paroxysmal atrial fibrillation; I48.0 - Paroxysmal atrial fibrillation (3) Acute on chronic respiratory failure with hypoxia and hypercapnia Assessment/Plan: A/C mode fio2 40% vent support bronchodilators chest ct noted for soft tissue mass family to decide goals of care Code(s): J96.21 - ACUTE AND CHRONIC RESPIRATORY FAILURE WITH HYPOXIA J96.22 - ACUTE AND CHRONIC RESPIRATORY FAILURE WITH HYPERCAPNIA (4) Diastolic heart failure Assessment/Plan: diovan Code(s): I50.30 - UNSPECIFIED DIASTOLIC (CONGESTIVE) HEART FAILURE Qualifiers : Heart failure chronicity: chronic Qualified Code(s): I50.32 - Chronic diastolic (congestive) heart failure; I50.32 - Chronic diastolic ( congestive) heart failure; I50.32 - Chronic diastolic (congestive) heart failure ; I50.32 - Chronic diastolic (congestive) heart failure (5) Anemia Assessment/Plan: stable h/h s/p prbc f Code(s): D64.9 - ANEMIA, UNSPECIFIED Qualifiers: Anemia type: unspecified type Qualified Code(s): D64.9 - Anemia, unspecified; D64.9 - Anemia, unspecified (6) Diarrhea Assessment/Plan: Microbiology 08/23/17 08:30 Stool Clostridium difficile Antigen (TEDDY) - Final 08/23/17 08:30 Stool Clostridium difficile Toxin Assay - Final 07/19/17 21:00 Sputum - Endotrachea Suction/Ventilator Gram Stain - Final 07/19/17 21:00 Sputum - Endotrachea Suction/Ventilator Sputum Culture - Final Beta Hem Streptococcus Group G Providencia Stuartii Diphtheroid/Corynebacterium on flagyl Code(s): R19.7 - DIARRHEA, UNSPECIFIED Qualifiers: Diarrhea type: unspecified type Qualified Code(s): R19.7 - Diarrhea , unspecified; R19.7 - Diarrhea, unspecified (7) Hypokalemia due to loss of potassium Assessment/Plan: K is ok low Magnesium no iv access replete with po magnesium Code(s): E87.6 - HYPOKALEMIA (8) Acute and chronic respiratory failure with hypoxia Assessment/Plan: on AC mode fio2 40% chest ct noted for mass Code(s): J96.21 - ACUTE AND CHRONIC RESPIRATORY FAILURE WITH HYPOXIA (9) Decrease in appetite Assessment/Plan: when i spoke to sister last week she said no feeding tube but needs to sign DNR papers left message in answering machine today to discuss the above again Code(s): R63.0 - ANOREXIA (10) Hypothyroid Assessment/Plan: synthroid po tsh noted Code(s): E03.9 - HYPOTHYROIDISM, UNSPECIFIED Qualifiers: Hypothyroidism type: unspecified Qualified Code(s): E03.9 - Hypothyroidism, unspecified; E03.9 - Hypothyroidism, unspecified; E03.9 - Hypothyroidism, unspecified
--- NOTE | 2017-09-05 11:37 | PN ---
Progress Note (short form) - Note Progress Note: PULMONARY No fevers yesterday. Vented on volume assist control with 40% FiO2. Last Vital Signs Temp Pulse Resp BP Pulse Ox 98.1 F 117 H 16 93/47 98 09/05/17 06:12 09/05/17 06:12 09/05/17 10:54 09/05/17 06:12 09/05/17 10:54 Gen: vented, awake Heart: RRR Lung: distant breath sounds Abd: soft, nontender Ext: no edema CBC, BMP 09/05/17 06:58 09/05/17 06:58 Active Medications Acetaminophen (Tylenol -) 650 mg PO Q6H PRN PRN Reason: FEVER OR PAIN Last Admin: 09/04/17 18:36 Dose: 650 mg Albuterol/Ipratropium (Duoneb -) 1 amp NEB QIDR [facility] Last Admin: 09/05/17 11:07 Dose: 1 amp Apixaban (Eliquis -) 5 mg PO BID [facility] Last Admin: 09/05/17 10:14 Dose: 5 mg Diltiazem HCl (Cardizem Cd -) 180 mg PO DAILY [facility] Last Admin: 09/05/17 10:14 Dose: 180 mg IV Flush (Picc Line Flush) 8 ml IVPUSH PRN PRN PRN Reason: Protocol Lactobacillus Acidophilus (Bacid -) 1 tab PO DAILY [facility] Last Admin: 09/05/17 10:14 Dose: 1 tab Levothyroxine Sodium (Synthroid -) 88 mcg PO DAILY@0700 [facility] Last Admin: 09/05/17 06:40 Dose: 88 mcg Magnesium Oxide (Mag-Ox -) 400 mg PO BID [facility] Metronidazole (Flagyl -) 500 mg PO TID [facility] Last Admin: 09/05/17 06:40 Dose: 500 mg Nystatin (Nystop Powder -) 1 applic TP DAILY [facility] Last Admin: 09/05/17 10:13 Dose: 1 applic Ondansetron HCl (Zofran Odt -) 4 mg SL Q6H PRN PRN Reason: NAUSEA Last Admin: 09/04/17 15:40 Dose: 4 mg Potassium Chloride (Potassium Chloride Oral Liquid) 40 meq PO DAILY [facility] Last Admin: 09/05/17 10:13 Dose: 40 meq Tamsulosin HCl (Flomax -) 0.4 mg PO DAILY@1730 [facility] Last Admin: 09/04/17 18:36 Dose: 0.4 mg Valsartan (Diovan -) 40 mg PO DAILY [facility] Last Admin: 09/05/17 10:14 Dose: 40 mg A/P Acute on Chronic Hypoxic and Hypercapneic Respiratory Failure 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
--- NOTE | 2017-09-05 11:54 | PN ---
Progress Note, Physician Chief Complaint: Events noted Not in distress History of Present Illness: Patient was seen and examined. Awake. Chart was reviewed Denies chest pain or palpitations on mechanical vent via trache Afebrile, but tachycardic - Current Medication List Current Medications: Active Medications Acetaminophen (Tylenol -) 650 mg PO Q6H PRN PRN Reason: FEVER OR PAIN Last Admin: 09/04/17 18:36 Dose: 650 mg Albuterol/Ipratropium (Duoneb -) 1 amp NEB QIDR [facility] Last Admin: 09/05/17 11:07 Dose: 1 amp Apixaban (Eliquis -) 5 mg PO BID [facility] Last Admin: 09/05/17 10:14 Dose: 5 mg Diltiazem HCl (Cardizem Cd -) 180 mg PO DAILY [facility] Last Admin: 09/05/17 10:14 Dose: 180 mg IV Flush (Picc Line Flush) 8 ml IVPUSH PRN PRN PRN Reason: Protocol Lactobacillus Acidophilus (Bacid -) 1 tab PO DAILY [facility] Last Admin: 09/05/17 10:14 Dose: 1 tab Levothyroxine Sodium (Synthroid -) 88 mcg PO DAILY@0700 [facility] Last Admin: 09/05/17 06:40 Dose: 88 mcg Magnesium Oxide (Mag-Ox -) 400 mg PO BID [facility] Metronidazole (Flagyl -) 500 mg PO TID [facility] Last Admin: 09/05/17 06:40 Dose: 500 mg Nystatin (Nystop Powder -) 1 applic TP DAILY [facility] Last Admin: 09/05/17 10:13 Dose: 1 applic Ondansetron HCl (Zofran Odt -) 4 mg SL Q6H PRN PRN Reason: NAUSEA Last Admin: 09/04/17 15:40 Dose: 4 mg Potassium Chloride (Potassium Chloride Oral Liquid) 40 meq PO DAILY [facility] Last Admin: 09/05/17 10:13 Dose: 40 meq Tamsulosin HCl (Flomax -) 0.4 mg PO DAILY@1730 [facility] Last Admin: 09/04/17 18:36 Dose: 0.4 mg Valsartan (Diovan -) 40 mg PO DAILY [facility] Last Admin: 09/05/17 10:14 Dose: 40 mg - Objective Vital Signs: Vital Signs Temperature 98.8 F 09/05/17 10:00 Pulse Rate 116 H 09/05/17 10:00 Respiratory Rate 16 09/05/17 10:54 Blood Pressure 100/45 09/05/17 10:00 O2 Sat by Pulse Oximetry (%) 98 09/05/17 10:54 Cardiovascular: Yes: Regular Rate and Rhythm, Tachycardia, S1, S2 Respiratory: Yes: Mechanically Ventilated Gastrointestinal: Yes: Normal Bowel Sounds, Soft. No: Tenderness Edema: No Labs: CBC, BMP 09/05/17 06:58 09/05/17 06:58 Problem List - Problems (1) A-fib Code(s): I48.91 - UNSPECIFIED ATRIAL FIBRILLATION Qualifiers: Atrial fibrillation type: paroxysmal Qualified Code(s): I48.0 - Paroxysmal atrial fibrillation; I48.0 - Paroxysmal atrial fibrillation; I48.0 - Paroxysmal atrial fibrillation; I48.0 - Paroxysmal atrial fibrillation (2) Acute and chronic respiratory failure with hypoxia Code(s): J96.21 - ACUTE AND CHRONIC RESPIRATORY FAILURE WITH HYPOXIA (3) Acute on chronic respiratory failure with hypoxia and hypercapnia Code(s): J96.21 - ACUTE AND CHRONIC RESPIRATORY FAILURE WITH HYPOXIA J96.22 - ACUTE AND CHRONIC RESPIRATORY FAILURE WITH HYPERCAPNIA (4) Anemia Code(s): D64.9 - ANEMIA, UNSPECIFIED Qualifiers: Anemia type: unspecified type Qualified Code(s): D64.9 - Anemia, unspecified; D64.9 - Anemia, unspecified (5) COPD (chronic obstructive pulmonary disease) Code(s): J44.9 - CHRONIC OBSTRUCTIVE PULMONARY DISEASE, UNSPECIFIED Qualifiers : COPD type: unspecified COPD Qualified Code(s): J44.9 - Chronic obstructive pulmonary disease, unspecified; J44.9 - Chronic obstructive pulmonary disease, unspecified; J44.9 - Chronic obstructive pulmonary disease, unspecified; J44.9 - Chronic obstructive pulmonary disease, unspecified (6) Diastolic heart failure Code(s): I50.30 - UNSPECIFIED DIASTOLIC (CONGESTIVE) HEART FAILURE Qualifiers : Heart failure chronicity: chronic Qualified Code(s): I50.32 - Chronic diastolic (congestive) heart failure; I50.32 - Chronic diastolic ( congestive) heart failure; I50.32 - Chronic diastolic (congestive) heart failure ; I50.32 - Chronic diastolic (congestive) heart failure (7) Hypothyroid Code(s): E03.9 - HYPOTHYROIDISM, UNSPECIFIED Qualifiers: Hypothyroidism type: unspecified Qualified Code(s): E03.9 - Hypothyroidism, unspecified; E03.9 - Hypothyroidism, unspecified; E03.9 - Hypothyroidism, unspecified (8) Pneumonia Code(s): J18.9 - PNEUMONIA, UNSPECIFIED ORGANISM Qualifiers: Pneumonia type: due to unspecified organism Laterality: left Lung location: lower lobe of lung Qualified Code(s): J18.1 - Lobar pneumonia, unspecified organism; J18.1 - Lobar pneumonia, unspecified organism; J18.1 - Lobar pneumonia, unspecified organism (9) Tracheostomy dependence Code(s): Z93.0 - TRACHEOSTOMY STATUS Assessment/Plan 1. 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 COPD with acute on chronic hypoxic/hypercapneic respiratory failure post tracheostomy 3. Diastolic LV dysfunction with class I NYHA classification LV congestive heart failure, compensated/euvolemic 4. Paroxysmal Atrial Fibrillation/atrial tachycardia on NOAC ([id number] score of 4) 5. HTN 6. Hypothyroidism 7. History of C. Difficile Colitis 8. History of MARLYN, resolved 9. 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 Inhaled bronchodilators, O2, GI prophylaxis and continue ventilation support 2. Continue Cardizem CD and Valsartan 3. Continue Eliquis 5 bid 4. Transfuse PRBC as needed 5. Palliative care in progress Bert Ivan MD
[2017-09-05] MEDS: MAGNESIUM OXIDE 400 MG TABLET (FP) PO SCH ×2 (12:23→22:57)
[2017-09-05] MEDS: COLLAGENASE CLOSTRIDIUM HIST. 30 GRAMS TUBE TP SCH (14:05)
--- NOTE | 2017-09-05 14:46 | PN ---
Progress Note, Physician Chief Complaint: The patient seen in her bed. Comfortable. History of Present Illness: 67 year old woman with PMhx of Chronic Respiratory failure on vent, COPD, Anemia , Afib, Hypothyrodism who presented with fever and anemia and with Hyponatremia and Hypokalemia. Has an invasive mediastinal mass, the etiology of this remains unknown. The patient's clinical status has not changed. Ethic decisions in progress. - Current Medication List Current Medications: Active Medications Acetaminophen (Tylenol -) 650 mg PO Q6H PRN PRN Reason: FEVER OR PAIN Last Admin: 09/04/17 18:36 Dose: 650 mg Albuterol/Ipratropium (Duoneb -) 1 amp NEB QIDR [facility] Last Admin: 09/05/17 11:07 Dose: 1 amp Apixaban (Eliquis -) 5 mg PO BID [facility] Last Admin: 09/05/17 10:14 Dose: 5 mg Diltiazem HCl (Cardizem Cd -) 180 mg PO DAILY [facility] Last Admin: 09/05/17 10:14 Dose: 180 mg IV Flush (Picc Line Flush) 8 ml IVPUSH PRN PRN PRN Reason: Protocol Lactobacillus Acidophilus (Bacid -) 1 tab PO DAILY [facility] Last Admin: 09/05/17 10:14 Dose: 1 tab Levothyroxine Sodium (Synthroid -) 88 mcg PO DAILY@0700 [facility] Last Admin: 09/05/17 06:40 Dose: 88 mcg Magnesium Oxide (Mag-Ox -) 400 mg PO BID [facility] Last Admin: 09/05/17 12:23 Dose: 400 mg Metronidazole (Flagyl -) 500 mg PO TID [facility] Last Admin: 09/05/17 06:40 Dose: 500 mg Nystatin (Nystop Powder -) 1 applic TP DAILY [facility] Last Admin: 09/05/17 10:13 Dose: 1 applic Ondansetron HCl (Zofran Odt -) 4 mg SL Q6H PRN PRN Reason: NAUSEA Last Admin: 09/04/17 15:40 Dose: 4 mg Potassium Chloride (Potassium Chloride Oral Liquid) 40 meq PO DAILY [facility] Last Admin: 09/05/17 10:13 Dose: 40 meq Tamsulosin HCl (Flomax -) 0.4 mg PO DAILY@1730 [facility] Last Admin: 09/04/17 18:36 Dose: 0.4 mg Valsartan (Diovan -) 40 mg PO DAILY [facility] Last Admin: 09/05/17 10:14 Dose: 40 mg - Objective Vital Signs: Vital Signs Temperature 98.8 F 09/05/17 10:00 Pulse Rate 116 H 09/05/17 10:00 Respiratory Rate 19 09/05/17 13:39 Blood Pressure 100/45 09/05/17 10:00 O2 Sat by Pulse Oximetry (%) 98 09/05/17 10:54 Constitutional: Yes: No Distress, Pallor HENT: Yes: Normocephalic Cardiovascular: Yes: S1, S2 Respiratory: Yes: Mechanically Ventilated Gastrointestinal: Yes: Normal Bowel Sounds, Soft Labs: CBC, BMP 09/05/17 06:58 09/05/17 06:58 INR, PTT INR 2.24 (0.82-1.09) H D 08/12/17 18:00 Problem List - Problems (1) Fever Code(s): R50.9 - FEVER, UNSPECIFIED Qualifiers: Fever type: unspecified Qualified Code(s): R50.9 - Fever, unspecified; R50.9 - Fever, unspecified (2) Hypokalemia Code(s): E87.6 - HYPOKALEMIA (3) Hyponatremia Code(s): E87.1 - HYPO-OSMOLALITY AND HYPONATREMIA (4) COPD (chronic obstructive pulmonary disease) Code(s): J44.9 - CHRONIC OBSTRUCTIVE PULMONARY DISEASE, UNSPECIFIED Qualifiers : COPD type: unspecified COPD Qualified Code(s): J44.9 - Chronic obstructive pulmonary disease, unspecified; J44.9 - Chronic obstructive pulmonary disease, unspecified; J44.9 - Chronic obstructive pulmonary disease, unspecified; J44.9 - Chronic obstructive pulmonary disease, unspecified (5) Chronic respiratory failure with hypoxia Code(s): J96.11 - CHRONIC RESPIRATORY FAILURE WITH HYPOXIA (6) Hypothyroid Code(s): E03.9 - HYPOTHYROIDISM, UNSPECIFIED Qualifiers: Hypothyroidism type: unspecified Qualified Code(s): E03.9 - Hypothyroidism, unspecified; E03.9 - Hypothyroidism, unspecified; E03.9 - Hypothyroidism, unspecified (7) Mediastinal mass Code(s): J98.59 - OTHER DISEASES OF MEDIASTINUM, NOT ELSEWHERE CLASSIFIED Assessment/Plan 67 year old female with PMhx of Chronic Respiratory failure on vent, COPD, Anemia, Afib, Hypothyrodism who presented [place] the [place] with fever and anemia and with hyponatremia and hypokalemia. Hyponatremia: No labs from today. Last Serum Sodium 131 mEq/L. Possibly related to non-osmotic ADH release. Will restrict free water restriction. Hypokalemia. Resolved. Aggressive mass in the mediastinum which encircles the SVC and involves the sternum and chest muscles: Oncology evaluation pending. Concur with the current management. Thank you for allowing us to participate in the care of this patient with multiple and complex medical problems. If any further follow up is needed, kindly call back. Yanna Barkley MD
[2017-09-05] MEDS: TAMSULOSIN HCL 0.4 MG CAP.ER.24H (FP) PO SCH (17:48)
[2017-09-05] MEDS: ACETAMINOPHEN 325 MG TABLET (FP) PO PRN (23:57)
[2017-09-06] MEDS ORDERED: METHYL SALICYLATE/MENTHOL OINT 30 GM TUBE TP ONE (02:30)
[2017-09-06] MEDS: ALBUTEROL SO4 2.5/IPRATROPIUM 0.5 INH SOL 3 ML VIAL.NEB. NEB SCH ×4 (05:42→23:12)
[2017-09-06] MEDS: LEVOTHYROXINE NA 88 MCG TABLET (FP) PO SCH (06:38)
[2017-09-06] MEDS: metroNIDAZOLE 250 MG TABLET PO SCH ×3 (06:38→22:06)
[2017-09-06] MEDS ORDERED: PT OWN MED DRAWER 7, Y5N ONE (10:12)
[2017-09-06] MEDS ORDERED: DIGOXIN 0.125 MG TABLET (FP) PO ONE (10:53)
--- NOTE | 2017-09-06 11:54 | PN ---
Progress Note (short form) - Note Progress Note: PULMONARY Vented on volume assist control with 40% FiO2. Last Vital Signs Temp Pulse Resp BP Pulse Ox 98.7 F 121 H 18 96/42 98 09/06/17 06:00 09/06/17 06:00 09/06/17 06:31 09/06/17 06:00 09/05/17 23:11 Gen: vented, awake Heart: RRR Lung: distant breath sounds Abd: soft, nontender Ext: no edema CBC, BMP 09/05/17 06:58 09/05/17 06:58 Active Medications Acetaminophen (Tylenol -) 650 mg PO Q6H PRN PRN Reason: FEVER OR PAIN Last Admin: 09/05/17 23:57 Dose: 650 mg Albuterol/Ipratropium (Duoneb -) 1 amp NEB QIDR [facility] Last Admin: 09/06/17 05:42 Dose: 1 amp Apixaban (Eliquis -) 5 mg PO BID [facility] Last Admin: 09/05/17 22:58 Dose: 5 mg Diltiazem HCl (Cardizem Cd -) 180 mg PO DAILY [facility] Last Admin: 09/05/17 10:14 Dose: 180 mg IV Flush (Picc Line Flush) 8 ml IVPUSH PRN PRN PRN Reason: Protocol Lactobacillus Acidophilus (Bacid -) 1 tab PO DAILY [facility] Last Admin: 09/05/17 10:14 Dose: 1 tab Levothyroxine Sodium (Synthroid -) 88 mcg PO DAILY@0700 [facility] Last Admin: 09/06/17 06:38 Dose: 88 mcg Magnesium Oxide (Mag-Ox -) 400 mg PO BID [facility] Last Admin: 09/05/17 22:57 Dose: 400 mg Metronidazole (Flagyl -) 500 mg PO TID [facility] Last Admin: 09/06/17 06:38 Dose: 500 mg Nystatin (Nystop Powder -) 1 applic TP DAILY [facility] Last Admin: 09/05/17 10:13 Dose: 1 applic Ondansetron HCl (Zofran Odt -) 4 mg SL Q6H PRN PRN Reason: NAUSEA Last Admin: 09/04/17 15:40 Dose: 4 mg Potassium Chloride (Potassium Chloride Oral Liquid) 40 meq PO DAILY [facility] Last Admin: 09/05/17 10:13 Dose: 40 meq Tamsulosin HCl (Flomax -) 0.4 mg PO DAILY@1730 [facility] Last Admin: 09/05/17 17:48 Dose: 0.4 mg Valsartan (Diovan -) 40 mg PO DAILY [facility] Last Admin: 09/05/17 10:14 Dose: 40 mg A/P Acute on Chronic Hypoxic and Hypercapneic Respiratory Failure Invasive Mediastinal Tumor Fevers likely from malignancy r/o C Diff COPD Atrial Fibrillation LV Diastolic Dysfunction - antibiotics per ID - inhaled bronchodilators - continue volume assist control - spontaneous breathing trials as tolerated - enteral feeds - on anticoagulation - recommend palliative care
[2017-09-06] MEDS: POTASSIUM CHLORIDE ORAL LIQUID 20 MEQ/15 ML PO SCH (12:30)
[2017-09-06] MEDS: MAGNESIUM OXIDE 400 MG TABLET (FP) PO SCH ×2 (12:31→22:06)
[2017-09-06] MEDS: APIXABAN 5 MG TABLET PO SCH ×2 (12:32→22:06)
[2017-09-06] MEDS: LACTOBACILLUS ACIDOPHILUS 1 EACH TAB (FP) PO SCH (12:32)
[2017-09-06] MEDS: NYSTATIN POWDER 100,000 UNITS/GM - 15 GM TOPICAL POWDER TP SCH (12:32)
[2017-09-06] MEDS: VALSARTAN 40 MG TABLET (FP) PO SCH (13:53)
--- NOTE | 2017-09-06 14:16 | PN ---
Progress Note (short form) - Note Progress Note: Palliative Care: I had a face to face meeting with the patient and her sister Valencia and their personal lines sales executive today. At that meeting I asked the patient if she would like me to discuss her reports with her. She agreed to hear the results. I informed her that there was indeed a lesion on her Chest CT scan and further tests might be required to investigate this finding. The patient was told that this may include a biopsy and other testing and she said she was agreeable to this. I did inform her that her Oncology MD and Current Physician team might think her overall condition and performance status might preclude any testing but she would be willing to hear their recommendations. I also told her we will give her 24 hours to rethink her decision and if still agreeable her Oncology MD and Attending should discuss their opinion with her.
--- NOTE | 2017-09-06 16:34 | PN ---
Progress Note, Physician Chief Complaint: UTI, Fever History of Present Illness: saw earlier this AM NAD, on mech vent afebrile poor appetite diarrhea resolved seen by ID, cardiology, pulmonary and nephrology CT chest showed possible malignant neoplasm in the mediastinum Being evaluated by Palliative care, make pt DNR?, pt alert and oriented, sisters to be involved in decision making, however there is a concern of whether to let patient know of her diagnosis. Ethics to address the issue. - Current Medication List Current Medications: Active Medications Acetaminophen (Tylenol -) 650 mg PO Q6H PRN PRN Reason: FEVER OR PAIN Last Admin: 09/05/17 23:57 Dose: 650 mg Albuterol/Ipratropium (Duoneb -) 1 amp NEB QIDR [facility] Last Admin: 09/06/17 11:55 Dose: 1 amp Apixaban (Eliquis -) 5 mg PO BID [facility] Last Admin: 09/06/17 12:32 Dose: 5 mg Diltiazem HCl (Cardizem Cd -) 180 mg PO DAILY [facility] Last Admin: 09/06/17 12:31 Dose: 180 mg IV Flush (Picc Line Flush) 8 ml IVPUSH PRN PRN PRN Reason: Protocol Lactobacillus Acidophilus (Bacid -) 1 tab PO DAILY [facility] Last Admin: 09/06/17 12:32 Dose: 1 tab Levothyroxine Sodium (Synthroid -) 88 mcg PO DAILY@0700 [facility] Last Admin: 09/06/17 06:38 Dose: 88 mcg Magnesium Oxide (Mag-Ox -) 400 mg PO BID [facility] Last Admin: 09/06/17 12:31 Dose: 400 mg Metronidazole (Flagyl -) 500 mg PO TID [facility] Last Admin: 09/06/17 13:54 Dose: 500 mg Nystatin (Nystop Powder -) 1 applic TP DAILY [facility] Last Admin: 09/06/17 12:32 Dose: 1 applic Ondansetron HCl (Zofran Odt -) 4 mg SL Q6H PRN PRN Reason: NAUSEA Last Admin: 09/04/17 15:40 Dose: 4 mg Potassium Chloride (Potassium Chloride Oral Liquid) 40 meq PO DAILY [facility] Last Admin: 09/06/17 12:30 Dose: 40 meq Tamsulosin HCl (Flomax -) 0.4 mg PO DAILY@1730 [facility] Last Admin: 09/05/17 17:48 Dose: 0.4 mg Valsartan (Diovan -) 40 mg PO DAILY [facility] Last Admin: 09/06/17 13:53 Dose: Not Given - Objective Vital Signs: Vital Signs Temperature 98.7 F 09/06/17 06:00 Pulse Rate 120 H 09/06/17 15:45 Respiratory Rate 14 09/06/17 15:45 Blood Pressure 94/50 09/06/17 15:45 O2 Sat by Pulse Oximetry (%) 99 09/06/17 10:02 Constitutional: Yes: Well Nourished, No Distress, Calm Cardiovascular: Yes: Regular Rate and Rhythm Respiratory: Yes: Regular Gastrointestinal: Yes: Normal Bowel Sounds Edema: No Peripheral Pulses WNL: Yes Neurological: Yes: Alert, Oriented Psychiatric: Yes: Alert, Oriented Labs: CBC, BMP 09/05/17 06:58 09/05/17 06:58 INR, PTT INR 2.24 (0.82-1.09) H D 08/12/17 18:00 Problem List - Problems (1) Fever Assessment/Plan: -afebrile -IV abx discontinued -tylenol for fever over 100.0F Code(s): R50.9 - FEVER, UNSPECIFIED Qualifiers: Fever type: unspecified Qualified Code(s): R50.9 - Fever, unspecified; R50.9 - Fever, unspecified (2) Sacral decubitus ulcer, stage II Assessment/Plan: -seen by Vascular -offloading to the area -sant -wound culture shows MRSA and VRE Code(s): L89.152 - PRESSURE ULCER OF SACRAL REGION, STAGE 2 (3) Systemic inflammatory response syndrome (SIRS) Assessment/Plan: -seen by ID -Tylenol for fever over 100.0F Code(s): R65.10 - SIRS OF NON-INFECTIOUS ORIGIN W/O ACUTE ORGAN DYSFUNCTION (4) A-fib Assessment/Plan: -Chronic -uncontrolled 2/2 to sepsis and fever -on Eliquis -tachycardiac, ordered digoxin once Code(s): I48.91 - UNSPECIFIED ATRIAL FIBRILLATION Qualifiers: Atrial fibrillation type: paroxysmal Qualified Code(s): I48.0 - Paroxysmal atrial fibrillation; I48.0 - Paroxysmal atrial fibrillation; I48.0 - Paroxysmal atrial fibrillation; I48.0 - Paroxysmal atrial fibrillation (5) Acute and chronic respiratory failure with hypoxia Assessment/Plan: -on mechanical vent -poor prognosis knowing the existence of possible malignant neoplasm Code(s): J96.21 - ACUTE AND CHRONIC RESPIRATORY FAILURE WITH HYPOXIA (6) Sepsis Assessment/Plan: -on admission -BP okay -seen by ID -overall poor prognosis Code(s): A41.9 - SEPSIS, UNSPECIFIED ORGANISM Qualifiers: Sepsis type: sepsis due to unspecified organism Qualified Code(s): A41.9 - Sepsis, unspecified organism; A41.9 - Sepsis, unspecified organism; A41.9 - Sepsis, unspecified organism Assessment/Plan see problem list
[2017-09-06] MEDS: TAMSULOSIN HCL 0.4 MG CAP.ER.24H (FP) PO SCH (17:59)
--- NOTE | 2017-09-06 18:47 | PN ---
Progress Note, Physician Chief Complaint: Events noted Not in distress History of Present Illness: Patient was seen and examined. Awake and arousable. Chart was reviewed Denies chest pain or palpitations on mechanical vent via trache Low blood pressure - Current Medication List Current Medications: Active Medications Acetaminophen (Tylenol -) 650 mg PO Q6H PRN PRN Reason: FEVER OR PAIN Last Admin: 09/05/17 23:57 Dose: 650 mg Albuterol/Ipratropium (Duoneb -) 1 amp NEB QIDR [facility] Last Admin: 09/06/17 18:32 Dose: 1 amp Apixaban (Eliquis -) 5 mg PO BID [facility] Last Admin: 09/06/17 12:32 Dose: 5 mg Diltiazem HCl (Cardizem Cd -) 180 mg PO DAILY [facility] Last Admin: 09/06/17 12:31 Dose: 180 mg IV Flush (Picc Line Flush) 8 ml IVPUSH PRN PRN PRN Reason: Protocol Lactobacillus Acidophilus (Bacid -) 1 tab PO DAILY [facility] Last Admin: 09/06/17 12:32 Dose: 1 tab Levothyroxine Sodium (Synthroid -) 88 mcg PO DAILY@0700 [facility] Last Admin: 09/06/17 06:38 Dose: 88 mcg Magnesium Oxide (Mag-Ox -) 400 mg PO BID [facility] Last Admin: 09/06/17 12:31 Dose: 400 mg Metronidazole (Flagyl -) 500 mg PO TID [facility] Last Admin: 09/06/17 13:54 Dose: 500 mg Nystatin (Nystop Powder -) 1 applic TP DAILY [facility] Last Admin: 09/06/17 12:32 Dose: 1 applic Ondansetron HCl (Zofran Odt -) 4 mg SL Q6H PRN PRN Reason: NAUSEA Last Admin: 09/04/17 15:40 Dose: 4 mg Potassium Chloride (Potassium Chloride Oral Liquid) 40 meq PO DAILY [facility] Last Admin: 09/06/17 12:30 Dose: 40 meq Tamsulosin HCl (Flomax -) 0.4 mg PO DAILY@1730 [facility] Last Admin: 09/06/17 17:59 Dose: 0.4 mg Valsartan (Diovan -) 40 mg PO DAILY [facility] Last Admin: 09/06/17 13:53 Dose: Not Given - Objective Vital Signs: Vital Signs Temperature 98.7 F 09/06/17 06:00 Pulse Rate 126 H 09/06/17 18:32 Respiratory Rate 15 09/06/17 18:31 Blood Pressure 94/50 09/06/17 15:45 O2 Sat by Pulse Oximetry (%) 96 09/06/17 18:32 Cardiovascular: Yes: Regular Rate and Rhythm, Tachycardia, S1, S2 Respiratory: Yes: Mechanically Ventilated, Rhonchi Gastrointestinal: Yes: Normal Bowel Sounds, Soft. No: Tenderness Edema: No Labs: CBC, BMP 09/05/17 06:58 09/05/17 06:58 Problem List - Problems (1) A-fib Code(s): I48.91 - UNSPECIFIED ATRIAL FIBRILLATION Qualifiers: Atrial fibrillation type: paroxysmal Qualified Code(s): I48.0 - Paroxysmal atrial fibrillation; I48.0 - Paroxysmal atrial fibrillation; I48.0 - Paroxysmal atrial fibrillation; I48.0 - Paroxysmal atrial fibrillation (2) Acute and chronic respiratory failure with hypoxia Code(s): J96.21 - ACUTE AND CHRONIC RESPIRATORY FAILURE WITH HYPOXIA (3) Acute on chronic respiratory failure with hypoxia and hypercapnia Code(s): J96.21 - ACUTE AND CHRONIC RESPIRATORY FAILURE WITH HYPOXIA J96.22 - ACUTE AND CHRONIC RESPIRATORY FAILURE WITH HYPERCAPNIA (4) Anemia Code(s): D64.9 - ANEMIA, UNSPECIFIED Qualifiers: Anemia type: unspecified type Qualified Code(s): D64.9 - Anemia, unspecified; D64.9 - Anemia, unspecified (5) COPD (chronic obstructive pulmonary disease) Code(s): J44.9 - CHRONIC OBSTRUCTIVE PULMONARY DISEASE, UNSPECIFIED Qualifiers : COPD type: unspecified COPD Qualified Code(s): J44.9 - Chronic obstructive pulmonary disease, unspecified; J44.9 - Chronic obstructive pulmonary disease, unspecified; J44.9 - Chronic obstructive pulmonary disease, unspecified; J44.9 - Chronic obstructive pulmonary disease, unspecified (6) Diastolic heart failure Code(s): I50.30 - UNSPECIFIED DIASTOLIC (CONGESTIVE) HEART FAILURE Qualifiers : Heart failure chronicity: chronic Qualified Code(s): I50.32 - Chronic diastolic (congestive) heart failure; I50.32 - Chronic diastolic ( congestive) heart failure; I50.32 - Chronic diastolic (congestive) heart failure ; I50.32 - Chronic diastolic (congestive) heart failure (7) Hypothyroid Code(s): E03.9 - HYPOTHYROIDISM, UNSPECIFIED Qualifiers: Hypothyroidism type: unspecified Qualified Code(s): E03.9 - Hypothyroidism, unspecified; E03.9 - Hypothyroidism, unspecified; E03.9 - Hypothyroidism, unspecified (8) Pneumonia Code(s): J18.9 - PNEUMONIA, UNSPECIFIED ORGANISM Qualifiers: Pneumonia type: due to unspecified organism Laterality: left Lung location: lower lobe of lung Qualified Code(s): J18.1 - Lobar pneumonia, unspecified organism; J18.1 - Lobar pneumonia, unspecified organism; J18.1 - Lobar pneumonia, unspecified organism (9) Tracheostomy dependence Code(s): Z93.0 - TRACHEOSTOMY STATUS Assessment/Plan 1. 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 COPD with acute on chronic hypoxic/hypercapneic respiratory failure post tracheostomy 3. Diastolic LV dysfunction with class I NYHA classification LV congestive heart failure, compensated/euvolemic 4. Paroxysmal Atrial Fibrillation/atrial tachycardia on NOAC ([id number] score of 4) 5. HTN 6. Hypothyroidism 7. History of C. Difficile Colitis 8. History of MARLYN, resolved 9. 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 Inhaled bronchodilators, O2, GI prophylaxis and continue ventilation support 2. Continue Cardizem CD and and discontinue Valsartan in view of hypotension 3. Continue Eliquis 5 bid 4. Transfuse PRBC as needed 5. Palliative care in progress Bert Ivan MD
[2017-09-06] MEDS: ACETAMINOPHEN 325 MG TABLET (FP) PO PRN (22:06)
[2017-09-07] MEDS: metroNIDAZOLE 250 MG TABLET PO SCH ×3 (06:45→22:14)
[2017-09-07] MEDS: LEVOTHYROXINE NA 88 MCG TABLET (FP) PO SCH (06:45)
[2017-09-07] MEDS: ALBUTEROL SO4 2.5/IPRATROPIUM 0.5 INH SOL 3 ML VIAL.NEB. NEB SCH ×3 (06:45→18:48)
[2017-09-07] MEDS ORDERED: PT OWN MED DRAWER 7, Y5N ONE (11:15)
[2017-09-07] MEDS: LACTOBACILLUS ACIDOPHILUS 1 EACH TAB (FP) PO SCH (11:16)
[2017-09-07] MEDS: MAGNESIUM OXIDE 400 MG TABLET (FP) PO SCH ×2 (11:16→22:15)
[2017-09-07] MEDS: POTASSIUM CHLORIDE ORAL LIQUID 20 MEQ/15 ML PO SCH ×2 (11:17→12:08)
[2017-09-07] MEDS: NYSTATIN POWDER 100,000 UNITS/GM - 15 GM TOPICAL POWDER TP SCH (11:17)
[2017-09-07] MEDS: APIXABAN 5 MG TABLET PO SCH ×2 (11:19→22:14)
[2017-09-07 11:43] LABS: ANION GAP 6 (8-16); CALCIUM 7.6 mg/dL (8.5-10.1); CO2 28 mmol/L (21-32); CREATININE 0.5 mg/dL (0.55-1.02); GLUCOSE,RANDOM 108 mg/dL (74-106); MAGNESIUM 1.7 mg/dL (1.8-2.4); PHOSPHOROUS 2.2 mg/dL (2.5-4.9)
--- NOTE | 2017-09-07 12:06 | PN ---
Progress Note, Physician History of Present Illness: PULMONARY AWAKE,ON VENT SUPPORT AC MODE -RESP DISTRESS - Current Medication List Current Medications: Active Medications Acetaminophen (Tylenol -) 650 mg PO Q6H PRN PRN Reason: FEVER OR PAIN Last Admin: 09/06/17 22:06 Dose: 650 mg Albuterol/Ipratropium (Duoneb -) 1 amp NEB QIDR [facility] Last Admin: 09/07/17 06:45 Dose: 1 amp Apixaban (Eliquis -) 5 mg PO BID [facility] Last Admin: 09/07/17 11:19 Dose: 5 mg Diltiazem HCl (Cardizem Cd -) 180 mg PO DAILY [facility] Last Admin: 09/07/17 11:16 Dose: 180 mg IV Flush (Picc Line Flush) 8 ml IVPUSH PRN PRN PRN Reason: Protocol Lactobacillus Acidophilus (Bacid -) 1 tab PO DAILY [facility] Last Admin: 09/07/17 11:16 Dose: 1 tab Levothyroxine Sodium (Synthroid -) 88 mcg PO DAILY@0700 [facility] Last Admin: 09/07/17 06:45 Dose: 88 mcg Magnesium Oxide (Mag-Ox -) 400 mg PO BID [facility] Last Admin: 09/07/17 11:16 Dose: 400 mg Metronidazole (Flagyl -) 500 mg PO TID [facility] Last Admin: 09/07/17 06:45 Dose: 500 mg Nystatin (Nystop Powder -) 1 applic TP DAILY [facility] Last Admin: 09/07/17 11:17 Dose: 1 applic Ondansetron HCl (Zofran Odt -) 4 mg SL Q6H PRN PRN Reason: NAUSEA Last Admin: 09/04/17 15:40 Dose: 4 mg Potassium Chloride (Potassium Chloride Oral Liquid) 40 meq PO DAILY [facility] Last Admin: 09/07/17 11:17 Dose: 40 meq Tamsulosin HCl (Flomax -) 0.4 mg PO DAILY@1730 [facility] Last Admin: 09/06/17 17:59 Dose: 0.4 mg - Objective Vital Signs: Vital Signs Temperature 98.4 F 09/07/17 11:00 Pulse Rate 116 H 09/07/17 11:00 Respiratory Rate 14 09/07/17 11:00 Blood Pressure 98/60 09/07/17 11:00 O2 Sat by Pulse Oximetry (%) 96 09/06/17 18:32 Constitutional: Yes: Calm, Thin Eyes: Yes: WNL HENT: Yes: WNL Neck: Yes: Supple (TRACH) Cardiovascular: Yes: Pulse Irregular, S1, S2 Respiratory: Yes: Diminished Gastrointestinal: Yes: Normal Bowel Sounds, Soft Extremities: Yes: WNL Edema: No Labs: CBC, BMP 09/05/17 06:58 09/07/17 10:50 INR, PTT INR 2.24 (0.82-1.09) H D 08/12/17 18:00 Problem List - Problems (1) Fever Code(s): R50.9 - FEVER, UNSPECIFIED Qualifiers: Fever type: unspecified Qualified Code(s): R50.9 - Fever, unspecified; R50.9 - Fever, unspecified (2) Hematuria Code(s): R31.9 - HEMATURIA, UNSPECIFIED Qualifiers: Hematuria type: unspecified type Qualified Code(s): R31.9 - Hematuria, unspecified; R31.9 - Hematuria, unspecified (3) Sacral decubitus ulcer, stage II Code(s): L89.152 - PRESSURE ULCER OF SACRAL REGION, STAGE 2 (4) A-fib Code(s): I48.91 - UNSPECIFIED ATRIAL FIBRILLATION Qualifiers: Atrial fibrillation type: paroxysmal Qualified Code(s): I48.0 - Paroxysmal atrial fibrillation; I48.0 - Paroxysmal atrial fibrillation; I48.0 - Paroxysmal atrial fibrillation; I48.0 - Paroxysmal atrial fibrillation (5) Acute on chronic respiratory failure with hypoxia and hypercapnia Code(s): J96.21 - ACUTE AND CHRONIC RESPIRATORY FAILURE WITH HYPOXIA J96.22 - ACUTE AND CHRONIC RESPIRATORY FAILURE WITH HYPERCAPNIA (6) Anemia Code(s): D64.9 - ANEMIA, UNSPECIFIED Qualifiers: Anemia type: unspecified type Qualified Code(s): D64.9 - Anemia, unspecified; D64.9 - Anemia, unspecified (7) COPD (chronic obstructive pulmonary disease) Code(s): J44.9 - CHRONIC OBSTRUCTIVE PULMONARY DISEASE, UNSPECIFIED Qualifiers : COPD type: unspecified COPD Qualified Code(s): J44.9 - Chronic obstructive pulmonary disease, unspecified; J44.9 - Chronic obstructive pulmonary disease, unspecified; J44.9 - Chronic obstructive pulmonary disease, unspecified; J44.9 - Chronic obstructive pulmonary disease, unspecified (8) Chest pain Code(s): R07.9 - CHEST PAIN, UNSPECIFIED Qualifiers: Chest pain type: pleurodynia Qualified Code(s): R07.81 - Pleurodynia ; R07.81 - Pleurodynia (9) Diastolic heart failure Code(s): I50.30 - UNSPECIFIED DIASTOLIC (CONGESTIVE) HEART FAILURE Qualifiers : Heart failure chronicity: chronic Qualified Code(s): I50.32 - Chronic diastolic (congestive) heart failure; I50.32 - Chronic diastolic ( congestive) heart failure; I50.32 - Chronic diastolic (congestive) heart failure ; I50.32 - Chronic diastolic (congestive) heart failure (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9 - Hematuria, unspecified; R31.9 - Hematuria, unspecified (3) Sacral decubitus ulcer, stage II Code(s): L89.152 - PRESSURE ULCER OF SACRAL REGION, STAGE 2 (4) A-fib Code(s): I48.91 - UNSPECIFIED ATRIAL FIBRILLATION Qualifiers: (5) Acute on chronic respiratory failure with hypoxia and hypercapnia Code(s): J96.21 - ACUTE AND CHRONIC RESPIRATORY FAILURE WITH HYPOXIA J96.22 - ACUTE AND CHRONIC RESPIRATORY FAILURE WITH HYPERCAPNIA (6) Anemia Code(s): D64.9 - ANEMIA, UNSPECIFIED Qualifiers: Anemia type: unspecified type Qualified Code(s): D64.9 - Anemia, unspecified; D64.9 - Anemia, unspecified (7) COPD (chronic obstructive pulmonary disease) Code(s): J44.9 - CHRONIC OBSTRUCTIVE PULMONARY DISEASE, UNSPECIFIED Qualifiers : COPD type: unspecified COPD Qualified Code(s): J44.9 - Chronic obstructive pulmonary disease, unspecified; J44.9 - Chronic obstructive pulmonary disease, unspecified; J44.9 - Chronic obstructive pulmonary disease, unspecified; J44.9 - Chronic obstructive pulmonary disease, unspecified (8) Chest pain Code(s): R07.9 - CHEST PAIN, UNSPECIFIED Qualifiers: Chest pain type: pleurodynia Qualified Code(s): R07.81 - Pleurodynia ; R07.81 - Pleurodynia (9) Diastolic heart failure Code(s): I50.30 - UNSPECIFIED DIASTOLIC (CONGESTIVE) HEART FAILURE Qualifiers : Heart failure chronicity: chronic Qualified Code(s): I50.32 - Chronic diastolic (congestive) heart failure; I50.32 - Chronic diastolic ( congestive) heart failure; I50.32 - Chronic diastolic (congestive) heart failure ; I50.32 - Chronic diastolic (congestive) heart failure (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
[2017-09-07] MEDS ORDERED: MAGNESIUM SULF 50% (8.12 MEQ/2 ML-1 GM VIAL) IVPB ONE (13:13)
--- NOTE | 2017-09-07 14:02 | PN ---
Progress Note, Physician Chief Complaint: Events noted Not in distress History of Present Illness: Patient was seen and examined. Awake and arousable. Chart was reviewed Denies chest pain or palpitations on mechanical vent via trache Blood pressure stable - Current Medication List Current Medications: Active Medications Acetaminophen (Tylenol -) 650 mg PO Q6H PRN PRN Reason: FEVER OR PAIN Last Admin: 09/06/17 22:06 Dose: 650 mg Albuterol/Ipratropium (Duoneb -) 1 amp NEB QIDR [facility] Last Admin: 09/07/17 11:30 Dose: 1 amp Apixaban (Eliquis -) 5 mg PO BID [facility] Last Admin: 09/07/17 11:19 Dose: 5 mg Diltiazem HCl (Cardizem Cd -) 180 mg PO DAILY [facility] Last Admin: 09/07/17 11:16 Dose: 180 mg IV Flush (Picc Line Flush) 8 ml IVPUSH PRN PRN PRN Reason: Protocol Lactobacillus Acidophilus (Bacid -) 1 tab PO DAILY [facility] Last Admin: 09/07/17 11:16 Dose: 1 tab Levothyroxine Sodium (Synthroid -) 88 mcg PO DAILY@0700 [facility] Last Admin: 09/07/17 06:45 Dose: 88 mcg Magnesium Oxide (Mag-Ox -) 400 mg PO BID [facility] Last Admin: 09/07/17 11:16 Dose: 400 mg Metronidazole (Flagyl -) 500 mg PO TID [facility] Last Admin: 09/07/17 06:45 Dose: 500 mg Nystatin (Nystop Powder -) 1 applic TP DAILY [facility] Last Admin: 09/07/17 11:17 Dose: 1 applic Ondansetron HCl (Zofran Odt -) 4 mg SL Q6H PRN PRN Reason: NAUSEA Last Admin: 09/04/17 15:40 Dose: 4 mg Potassium Chloride (Potassium Chloride Oral Liquid) 40 meq PO DAILY [facility] Last Admin: 09/07/17 12:08 Dose: Not Given Potassium Phos/Sodium Phos (Phos-Nak Packet -) 1 packet PO TID [facility] Stop: 09/09/17 06:01 Tamsulosin HCl (Flomax -) 0.4 mg PO DAILY@1730 [facility] Last Admin: 09/06/17 17:59 Dose: 0.4 mg - Objective Vital Signs: Vital Signs Temperature 98.4 F 09/07/17 11:00 Pulse Rate 120 H 09/07/17 12:09 Respiratory Rate 16 09/07/17 12:09 Blood Pressure 102/52 09/07/17 12:09 O2 Sat by Pulse Oximetry (%) 96 09/07/17 11:30 Cardiovascular: Yes: Regular Rate and Rhythm, Tachycardia, S1, S2 Respiratory: Yes: Mechanically Ventilated, Rhonchi Gastrointestinal: Yes: Normal Bowel Sounds, Soft. No: Tenderness Edema: No Labs: CBC, BMP 09/05/17 06:58 09/07/17 10:50 Problem List - Problems (1) A-fib Code(s): I48.91 - UNSPECIFIED ATRIAL FIBRILLATION Qualifiers: Atrial fibrillation type: paroxysmal Qualified Code(s): I48.0 - Paroxysmal atrial fibrillation; I48.0 - Paroxysmal atrial fibrillation; I48.0 - Paroxysmal atrial fibrillation; I48.0 - Paroxysmal atrial fibrillation (2) Acute and chronic respiratory failure with hypoxia Code(s): J96.21 - ACUTE AND CHRONIC RESPIRATORY FAILURE WITH HYPOXIA (3) Acute on chronic respiratory failure with hypoxia and hypercapnia Code(s): J96.21 - ACUTE AND CHRONIC RESPIRATORY FAILURE WITH HYPOXIA J96.22 - ACUTE AND CHRONIC RESPIRATORY FAILURE WITH HYPERCAPNIA (4) Anemia Code(s): D64.9 - ANEMIA, UNSPECIFIED Qualifiers: Anemia type: unspecified type Qualified Code(s): D64.9 - Anemia, unspecified; D64.9 - Anemia, unspecified (5) COPD (chronic obstructive pulmonary disease) Code(s): J44.9 - CHRONIC OBSTRUCTIVE PULMONARY DISEASE, UNSPECIFIED Qualifiers : COPD type: unspecified COPD Qualified Code(s): J44.9 - Chronic obstructive pulmonary disease, unspecified; J44.9 - Chronic obstructive pulmonary disease, unspecified; J44.9 - Chronic obstructive pulmonary disease, unspecified; J44.9 - Chronic obstructive pulmonary disease, unspecified (6) Diastolic heart failure Code(s): I50.30 - UNSPECIFIED DIASTOLIC (CONGESTIVE) HEART FAILURE Qualifiers : Heart failure chronicity: chronic Qualified Code(s): I50.32 - Chronic diastolic (congestive) heart failure; I50.32 - Chronic diastolic ( congestive) heart failure; I50.32 - Chronic diastolic (congestive) heart failure ; I50.32 - Chronic diastolic (congestive) heart failure (7) Hypothyroid Code(s): E03.9 - HYPOTHYROIDISM, UNSPECIFIED Qualifiers: Hypothyroidism type: unspecified Qualified Code(s): E03.9 - Hypothyroidism, unspecified; E03.9 - Hypothyroidism, unspecified; E03.9 - Hypothyroidism, unspecified (8) Pneumonia Code(s): J18.9 - PNEUMONIA, UNSPECIFIED ORGANISM Qualifiers: Pneumonia type: due to unspecified organism Laterality: left Lung location: lower lobe of lung Qualified Code(s): J18.1 - Lobar pneumonia, unspecified organism; J18.1 - Lobar pneumonia, unspecified organism; J18.1 - Lobar pneumonia, unspecified organism (9) Tracheostomy dependence Code(s): Z93.0 - TRACHEOSTOMY STATUS Assessment/Plan 1. 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 COPD with acute on chronic hypoxic/hypercapneic respiratory failure post tracheostomy 3. Diastolic LV dysfunction with class I NYHA classification LV congestive heart failure, compensated/euvolemic 4. Paroxysmal Atrial Fibrillation/atrial tachycardia on NOAC ([id number] score of 4) 5. HTN 6. Hypothyroidism 7. History of C. Difficile Colitis 8. History of MARLYN, resolved 9. 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 Inhaled bronchodilators, O2, GI prophylaxis and continue ventilation support 2. Continue Cardizem CD as tolerated. Monitor blood pressure 3. Continue Eliquis 5 bid 4. Transfuse PRBC as needed 5. Palliative care in progress. Further input regarding mediastinal mass Bert Ivan MD
[2017-09-07] MEDS: NAPH,MB-DB/K PH,MBDB POWDER PACKET PO SCH ×2 (15:05→22:16)
--- NOTE | 2017-09-07 17:12 | PN ---
Progress Note, Physician Chief Complaint: UTI, Fever History of Present Illness: NAD, on mech vent febrile last evening poor appetite, having just sips of ensure diarrhea resolved seen by ID, cardiology, pulmonary and nephrology CT chest showed possible malignant neoplasm in the mediastinum Was seen by Palliative medicine. Patient aware of her diagnosis She wants Biopsy "if it doesn't hurt" - Current Medication List Current Medications: Active Medications Acetaminophen (Tylenol -) 650 mg PO Q6H PRN PRN Reason: FEVER OR PAIN Last Admin: 09/06/17 22:06 Dose: 650 mg Albuterol/Ipratropium (Duoneb -) 1 amp NEB QIDR [facility] Last Admin: 09/07/17 11:30 Dose: 1 amp Apixaban (Eliquis -) 5 mg PO BID [facility] Last Admin: 09/07/17 11:19 Dose: 5 mg Diltiazem HCl (Cardizem Cd -) 180 mg PO DAILY [facility] Last Admin: 09/07/17 11:16 Dose: 180 mg IV Flush (Picc Line Flush) 8 ml IVPUSH PRN PRN PRN Reason: Protocol Lactobacillus Acidophilus (Bacid -) 1 tab PO DAILY [facility] Last Admin: 09/07/17 11:16 Dose: 1 tab Levothyroxine Sodium (Synthroid -) 88 mcg PO DAILY@0700 [facility] Last Admin: 09/07/17 06:45 Dose: 88 mcg Magnesium Oxide (Mag-Ox -) 800 mg PO BID [facility] Metronidazole (Flagyl -) 500 mg PO TID [facility] Last Admin: 09/07/17 15:04 Dose: 500 mg Nystatin (Nystop Powder -) 1 applic TP DAILY [facility] Last Admin: 09/07/17 11:17 Dose: 1 applic Ondansetron HCl (Zofran Odt -) 4 mg SL Q6H PRN PRN Reason: NAUSEA Last Admin: 09/04/17 15:40 Dose: 4 mg Potassium Chloride (Potassium Chloride Oral Liquid) 40 meq PO DAILY [facility] Last Admin: 09/07/17 12:08 Dose: Not Given Potassium Phos/Sodium Phos (Phos-Nak Packet -) 1 packet PO TID [facility] Stop: 09/09/17 06:01 Last Admin: 09/07/17 15:05 Dose: 1 packet Tamsulosin HCl (Flomax -) 0.4 mg PO DAILY@1730 [facility] Last Admin: 09/06/17 17:59 Dose: 0.4 mg - Objective Vital Signs: Vital Signs Temperature 99.4 F 09/07/17 15:47 Pulse Rate 108 H 09/07/17 15:47 Respiratory Rate 16 09/07/17 14:29 Blood Pressure 114/52 09/07/17 15:47 O2 Sat by Pulse Oximetry (%) 96 09/07/17 11:30 Constitutional: Yes: Well Nourished, No Distress, Calm Cardiovascular: Yes: Regular Rate and Rhythm Respiratory: Yes: Regular, Mechanically Ventilated Gastrointestinal: Yes: Normal Bowel Sounds Musculoskeletal: Yes: WNL Extremities: Yes: WNL Edema: Yes (BLUE) Peripheral Pulses WNL: Yes Neurological: Yes: Alert, Oriented Psychiatric: Yes: Alert, Oriented Labs: CBC, BMP 09/05/17 06:58 09/07/17 10:50 INR, PTT INR 2.24 (0.82-1.09) H D 08/12/17 18:00 Problem List - Problems (1) Fever Assessment/Plan: -febrile last evening -IV abx discontinued -tylenol for fever over 100.0F Code(s): R50.9 - FEVER, UNSPECIFIED Qualifiers: Fever type: unspecified Qualified Code(s): R50.9 - Fever, unspecified; R50.9 - Fever, unspecified (2) Sacral decubitus ulcer, stage II Assessment/Plan: -seen by Vascular -offloading to the area -santyl -wound culture shows MRSA and VRE Code(s): L89.152 - PRESSURE ULCER OF SACRAL REGION, STAGE 2 (3) Systemic inflammatory response syndrome (SIRS) Assessment/Plan: -seen by ID -Tylenol for fever over 100.0F Code(s): R65.10 - SIRS OF NON-INFECTIOUS ORIGIN W/O ACUTE ORGAN DYSFUNCTION (4) A-fib Assessment/Plan: -Chronic -uncontrolled 2/2 to sepsis and fever -on Eliquis -tachycardiac, ordered digoxin once Code(s): I48.91 - UNSPECIFIED ATRIAL FIBRILLATION Qualifiers: Atrial fibrillation type: paroxysmal Qualified Code(s): I48.0 - Paroxysmal atrial fibrillation; I48.0 - Paroxysmal atrial fibrillation; I48.0 - Paroxysmal atrial fibrillation; I48.0 - Paroxysmal atrial fibrillation (5) Acute and chronic respiratory failure with hypoxia Assessment/Plan: -on mechanical vent -poor prognosis knowing the existence of possible malignant neoplasm Code(s): J96.21 - ACUTE AND CHRONIC RESPIRATORY FAILURE WITH HYPOXIA (6) Sepsis Assessment/Plan: -on admission -BP okay -seen by ID -overall poor prognosis Code(s): A41.9 - SEPSIS, UNSPECIFIED ORGANISM Qualifiers: Sepsis type: sepsis due to unspecified organism Qualified Code(s): A41.9 - Sepsis, unspecified organism; A41.9 - Sepsis, unspecified organism; A41.9 - Sepsis, unspecified organism (7) Neoplasm of mediastinum Assessment/Plan: -wants biopsy -Oncology to see the patient again for possible treatment options. Code(s): D49.89 - NEOPLASM OF UNSPECIFIED BEHAVIOR OF OTHER SPECIFIED SITES Assessment/Plan see problem list
[2017-09-07] MEDS: TAMSULOSIN HCL 0.4 MG CAP.ER.24H (FP) PO SCH (18:00)
--- NOTE | 2017-09-07 18:24 | PN ---
Progress Note (short form) - Note Progress Note: Renal follow up for Hyponatremia Pt seen and examined at the bedside awake and alert on vent via trach no overnight events Vital Signs Temperature 99.4 F 09/07/17 15:47 Pulse Rate 108 H 09/07/17 15:47 Respiratory Rate 16 09/07/17 14:29 Blood Pressure 114/52 09/07/17 15:47 O2 Sat by Pulse Oximetry (%) 96 09/07/17 11:30 Intake & Output 09/04/17 09/05/17 09/06/17 09/07/17 23:59 23:59 23:59 23:59 Intake Total 500 600 925 350 Balance 500 600 925 350 NAD, awake and alert on Vent via trach RRR Course BS soft NT/ND Abd No Le edema CBC, BMP 09/05/17 06:58 09/07/17 10:50 Current Medications Acetaminophen (Tylenol -) 650 mg PO Q6H PRN PRN Reason: FEVER OR PAIN Last Admin: 09/06/17 22:06 Dose: 650 mg Albuterol/Ipratropium (Duoneb -) 1 amp NEB QIDR [facility] Last Admin: 09/07/17 11:30 Dose: 1 amp Apixaban (Eliquis -) 5 mg PO BID [facility] Last Admin: 09/07/17 11:19 Dose: 5 mg Diltiazem HCl (Cardizem Cd -) 180 mg PO DAILY [facility] Last Admin: 09/07/17 11:16 Dose: 180 mg IV Flush (Picc Line Flush) 8 ml IVPUSH PRN PRN PRN Reason: Protocol Lactobacillus Acidophilus (Bacid -) 1 tab PO DAILY [facility] Last Admin: 09/07/17 11:16 Dose: 1 tab Levothyroxine Sodium (Synthroid -) 88 mcg PO DAILY@0700 [facility] Last Admin: 09/07/17 06:45 Dose: 88 mcg Magnesium Oxide (Mag-Ox -) 800 mg PO BID [facility] Metronidazole (Flagyl -) 500 mg PO TID [facility] Last Admin: 09/07/17 15:04 Dose: 500 mg Nystatin (Nystop Powder -) 1 applic TP DAILY [facility] Last Admin: 09/07/17 11:17 Dose: 1 applic Ondansetron HCl (Zofran Odt -) 4 mg SL Q6H PRN PRN Reason: NAUSEA Last Admin: 09/04/17 15:40 Dose: 4 mg Potassium Chloride (Potassium Chloride Oral Liquid) 40 meq PO DAILY [facility] Last Admin: 09/07/17 12:08 Dose: Not Given Potassium Phos/Sodium Phos (Phos-Nak Packet -) 1 packet PO TID [facility] Stop: 09/09/17 06:01 Last Admin: 09/07/17 15:05 Dose: 1 packet Tamsulosin HCl (Flomax -) 0.4 mg PO DAILY@1730 [facility] Last Admin: 09/06/17 17:59 Dose: 0.4 mg A/p 67 year old woman with PMhx of Chronic Respiratory failure on vent, COPD, Anemia , Afib, Hypothyrodism who presented [place] the [place] with fever and anemia and with hyponatremia and hypokalemia. #Hyponatremia Serum na stable #Hypokalemia continue KCL daily #Hypophosphatemia start Neutraphos x 6 doses #Hypomagnesemia given Oral Mg sulfate (will give extra dose today as levels are lower) #Sepsis/UTI/Cdiff continue Abx as per ID vent support Fernando Douglas DO Problem List - Problems (1) COPD (chronic obstructive pulmonary disease) Code(s): J44.9 - CHRONIC OBSTRUCTIVE PULMONARY DISEASE, UNSPECIFIED Qualifiers : COPD type: unspecified COPD Qualified Code(s): J44.9 - Chronic obstructive pulmonary disease, unspecified; J44.9 - Chronic obstructive pulmonary disease, unspecified; J44.9 - Chronic obstructive pulmonary disease, unspecified; J44.9 - Chronic obstructive pulmonary disease, unspecified (2) Respiratory failure Code(s): J96.90 - RESPIRATORY FAILURE, UNSP, UNSP W HYPOXIA OR HYPERCAPNIA Qualifiers: Chronicity: acute on chronic Respiratory failure complication: hypercapnia Qualified Code(s): J96.22 - Acute and chronic respiratory failure with hypercapnia; J96.22 - Acute and chronic respiratory failure with hypercapnia; J96.22 - Acute and chronic respiratory failure with hypercapnia (3) Hyponatremia Code(s): E87.1 - HYPO-OSMOLALITY AND HYPONATREMIA (4) Hypokalemia Code(s): E87.6 - HYPOKALEMIA
[2017-09-07] MEDS: ACETAMINOPHEN 325 MG TABLET (FP) PO PRN (20:22)
[2017-09-08] MEDS: ALBUTEROL SO4 2.5/IPRATROPIUM 0.5 INH SOL 3 ML VIAL.NEB. NEB SCH ×5 (00:07→23:09)
[2017-09-08] MEDS: metroNIDAZOLE 250 MG TABLET PO SCH ×3 (06:38→22:27)
[2017-09-08] MEDS: LEVOTHYROXINE NA 88 MCG TABLET (FP) PO SCH (06:38)
[2017-09-08] MEDS: NAPH,MB-DB/K PH,MBDB POWDER PACKET PO SCH ×3 (06:38→22:28)
[2017-09-08] MEDS: LACTOBACILLUS ACIDOPHILUS 1 EACH TAB (FP) PO SCH (10:38)
[2017-09-08] MEDS: NYSTATIN POWDER 100,000 UNITS/GM - 15 GM TOPICAL POWDER TP SCH (10:39)
[2017-09-08] MEDS: APIXABAN 5 MG TABLET PO SCH (10:39)
[2017-09-08] MEDS: MAGNESIUM OXIDE 400 MG TABLET (FP) PO SCH ×2 (10:39→22:28)
[2017-09-08] MEDS: POTASSIUM CHLORIDE ORAL LIQUID 20 MEQ/15 ML PO SCH (10:43)
--- NOTE | 2017-09-08 11:56 | PN ---
Progress Note (short form) - Note Progress Note: PULMONARY Vented on volume assist control with 40% FiO2. Still with intermittent fevers. Last Vital Signs Temp Pulse Resp BP Pulse Ox 98.7 F 121 H 16 102/48 96 09/08/17 06:00 09/08/17 06:00 09/08/17 06:45 09/08/17 06:00 09/07/17 11:30 Gen: vented, awake Heart: tachycardic, regular Lung: distant breath sounds Abd: soft, nontender Ext: no edema CBC, BMP 09/05/17 06:58 09/07/17 10:50 Active Medications Acetaminophen (Tylenol -) 650 mg PO Q6H PRN PRN Reason: FEVER OR PAIN Last Admin: 09/07/17 20:22 Dose: 650 mg Albuterol/Ipratropium (Duoneb -) 1 amp NEB QIDR [facility] Last Admin: 09/08/17 06:53 Dose: 1 amp Apixaban (Eliquis -) 5 mg PO BID [facility] Last Admin: 09/08/17 10:39 Dose: 5 mg Diltiazem HCl (Cardizem Cd -) 180 mg PO DAILY [facility] Last Admin: 09/08/17 10:39 Dose: 180 mg IV Flush (Picc Line Flush) 8 ml IVPUSH PRN PRN PRN Reason: Protocol Lactobacillus Acidophilus (Bacid -) 1 tab PO DAILY [facility] Last Admin: 09/08/17 10:38 Dose: 1 tab Levothyroxine Sodium (Synthroid -) 88 mcg PO DAILY@0700 [facility] Last Admin: 09/08/17 06:38 Dose: 88 mcg Magnesium Oxide (Mag-Ox -) 800 mg PO BID [facility] Last Admin: 09/08/17 10:39 Dose: 800 mg Metronidazole (Flagyl -) 500 mg PO TID [facility] Last Admin: 09/08/17 06:38 Dose: 500 mg Nystatin (Nystop Powder -) 1 applic TP DAILY [facility] Last Admin: 09/08/17 10:39 Dose: 1 applic Ondansetron HCl (Zofran Odt -) 4 mg SL Q6H PRN PRN Reason: NAUSEA Last Admin: 09/04/17 15:40 Dose: 4 mg Potassium Chloride (Potassium Chloride Oral Liquid) 40 meq PO DAILY [facility] Last Admin: 09/08/17 10:43 Dose: 40 meq Potassium Phos/Sodium Phos (Phos-Nak Packet -) 1 packet PO TID [facility] Stop: 09/09/17 06:01 Last Admin: 09/08/17 06:38 Dose: 1 packet Tamsulosin HCl (Flomax -) 0.4 mg PO DAILY@1730 [facility] Last Admin: 09/07/17 18:00 Dose: 0.4 mg A/P Acute on Chronic Hypoxic and Hypercapneic Respiratory Failure 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
--- NOTE | 2017-09-08 14:56 | PN ---
Progress Note (short form) - Note Progress Note: Renal follow up for Hyponatremia Pt seen and examined at the bedside awake and alert no acute complaints Vital Signs Temperature 98.3 F 09/08/17 13:53 Pulse Rate 119 H 09/08/17 13:53 Respiratory Rate 12 09/08/17 11:00 Blood Pressure 115/85 09/08/17 13:53 O2 Sat by Pulse Oximetry (%) 95 09/08/17 11:00 Intake & Output 09/05/17 09/06/17 09/07/17 09/08/17 23:59 23:59 23:59 23:59 Intake Total 600 925 755 980 Balance 600 925 755 980 Weight 88 lb 12.8 oz NAD, awake and alert on Vent via trach RRR Course BS soft NT/ND Abd No Le edema CBC, BMP 09/05/17 06:58 09/07/17 10:50 Current Medications Acetaminophen (Tylenol -) 650 mg PO Q6H PRN PRN Reason: FEVER OR PAIN Last Admin: 09/07/17 20:22 Dose: 650 mg Albuterol/Ipratropium (Duoneb -) 1 amp NEB QIDR [facility] Last Admin: 09/08/17 11:00 Dose: 1 amp Apixaban (Eliquis -) 5 mg PO BID [facility] Last Admin: 09/08/17 10:39 Dose: 5 mg Diltiazem HCl (Cardizem Cd -) 180 mg PO DAILY [facility] Last Admin: 09/08/17 10:39 Dose: 180 mg IV Flush (Picc Line Flush) 8 ml IVPUSH PRN PRN PRN Reason: Protocol Lactobacillus Acidophilus (Bacid -) 1 tab PO DAILY [facility] Last Admin: 09/08/17 10:38 Dose: 1 tab Levothyroxine Sodium (Synthroid -) 88 mcg PO DAILY@0700 [facility] Last Admin: 09/08/17 06:38 Dose: 88 mcg Magnesium Oxide (Mag-Ox -) 800 mg PO BID [facility] Last Admin: 09/08/17 10:39 Dose: 800 mg Metronidazole (Flagyl -) 500 mg PO TID [facility] Last Admin: 09/08/17 06:38 Dose: 500 mg Nystatin (Nystop Powder -) 1 applic TP DAILY [facility] Last Admin: 09/08/17 10:39 Dose: 1 applic Ondansetron HCl (Zofran Odt -) 4 mg SL Q6H PRN PRN Reason: NAUSEA Last Admin: 09/04/17 15:40 Dose: 4 mg Potassium Chloride (Potassium Chloride Oral Liquid) 40 meq PO DAILY [facility] Last Admin: 09/08/17 10:43 Dose: 40 meq Potassium Phos/Sodium Phos (Phos-Nak Packet -) 1 packet PO TID [facility] Stop: 09/09/17 06:01 Last Admin: 09/08/17 06:38 Dose: 1 packet Tamsulosin HCl (Flomax -) 0.4 mg PO DAILY@1730 [facility] Last Admin: 09/07/17 18:00 Dose: 0.4 mg A/p 67 year old woman with PMhx of Chronic Respiratory failure on vent, COPD, Anemia , Afib, Hypothyrodism who presented from the [place] with fever and anemia and with hyponatremia and hypokalemia. #Electrolyte abnormalities (hyponatremia, Hypokalemia, Hypophosphatemia) no new labs today to check labs in AM getting Oral Mg Oxide and Neutraphos, KCl currently #Sepsis/UTI/Cdiff continue Abx as per ID vent support #Mediastinal Mass for biopsy Fernando Douglas DO Problem List - Problems (1) COPD (chronic obstructive pulmonary disease) Code(s): J44.9 - CHRONIC OBSTRUCTIVE PULMONARY DISEASE, UNSPECIFIED Qualifiers : COPD type: unspecified COPD Qualified Code(s): J44.9 - Chronic obstructive pulmonary disease, unspecified; J44.9 - Chronic obstructive pulmonary disease, unspecified; J44.9 - Chronic obstructive pulmonary disease, unspecified; J44.9 - Chronic obstructive pulmonary disease, unspecified (2) Respiratory failure Code(s): J96.90 - RESPIRATORY FAILURE, UNSP, UNSP W HYPOXIA OR HYPERCAPNIA Qualifiers: Chronicity: acute on chronic Respiratory failure complication: hypercapnia Qualified Code(s): J96.22 - Acute and chronic respiratory failure with hypercapnia; J96.22 - Acute and chronic respiratory failure with hypercapnia; J96.22 - Acute and chronic respiratory failure with hypercapnia (3) Hyponatremia Code(s): E87.1 - HYPO-OSMOLALITY AND HYPONATREMIA (4) Hypokalemia Code(s): E87.6 - HYPOKALEMIA
--- NOTE | 2017-09-08 15:21 | PN ---
Progress Note, Physician Chief Complaint: UTI, Fever History of Present Illness: NAD, on mech vent febrile last evening poor appetite, having just sips of ensure diarrhea resolved seen by ID, cardiology, pulmonary and nephrology CT chest showed possible malignant neoplasm in the mediastinum Was seen by Palliative medicine. Patient aware of her diagnosis She wants Biopsy "if it doesn't hurt" - Current Medication List Current Medications: Active Medications Acetaminophen (Tylenol -) 650 mg PO Q6H PRN PRN Reason: FEVER OR PAIN Last Admin: 09/07/17 20:22 Dose: 650 mg Albuterol/Ipratropium (Duoneb -) 1 amp NEB QIDR [facility] Last Admin: 09/08/17 11:00 Dose: 1 amp Apixaban (Eliquis -) 5 mg PO BID [facility] Last Admin: 09/08/17 10:39 Dose: 5 mg Diltiazem HCl (Cardizem Cd -) 180 mg PO DAILY [facility] Last Admin: 09/08/17 10:39 Dose: 180 mg IV Flush (Picc Line Flush) 8 ml IVPUSH PRN PRN PRN Reason: Protocol Lactobacillus Acidophilus (Bacid -) 1 tab PO DAILY [facility] Last Admin: 09/08/17 10:38 Dose: 1 tab Levothyroxine Sodium (Synthroid -) 88 mcg PO DAILY@0700 [facility] Last Admin: 09/08/17 06:38 Dose: 88 mcg Magnesium Oxide (Mag-Ox -) 800 mg PO BID [facility] Last Admin: 09/08/17 10:39 Dose: 800 mg Metronidazole (Flagyl -) 500 mg PO TID [facility] Last Admin: 09/08/17 14:57 Dose: 500 mg Nystatin (Nystop Powder -) 1 applic TP DAILY [facility] Last Admin: 09/08/17 10:39 Dose: 1 applic Ondansetron HCl (Zofran Odt -) 4 mg SL Q6H PRN PRN Reason: NAUSEA Last Admin: 09/04/17 15:40 Dose: 4 mg Potassium Chloride (Potassium Chloride Oral Liquid) 40 meq PO DAILY [facility] Last Admin: 09/08/17 10:43 Dose: 40 meq Potassium Phos/Sodium Phos (Phos-Nak Packet -) 1 packet PO TID [facility] Stop: 09/09/17 06:01 Last Admin: 09/08/17 14:57 Dose: 1 packet Tamsulosin HCl (Flomax -) 0.4 mg PO DAILY@1730 [facility] Last Admin: 09/07/17 18:00 Dose: 0.4 mg - Objective Vital Signs: Vital Signs Temperature 98.3 F 09/08/17 13:53 Pulse Rate 119 H 09/08/17 13:53 Respiratory Rate 14 09/08/17 14:57 Blood Pressure 115/85 09/08/17 13:53 O2 Sat by Pulse Oximetry (%) 95 09/08/17 11:00 Constitutional: Yes: Well Nourished, No Distress, Calm Cardiovascular: Yes: Regular Rate and Rhythm Respiratory: Yes: Regular, Mechanically Ventilated Gastrointestinal: Yes: Normal Bowel Sounds Edema: No Peripheral Pulses WNL: Yes Neurological: Yes: Alert, Oriented Psychiatric: Yes: Alert, Oriented Labs: CBC, BMP 09/05/17 06:58 09/07/17 10:50 INR, PTT INR 2.24 (0.82-1.09) H D 08/12/17 18:00 Problem List - Problems (1) Fever Assessment/Plan: -febrile last night -tylenol for fever over 100.0F Code(s): R50.9 - FEVER, UNSPECIFIED Qualifiers: Fever type: unspecified Qualified Code(s): R50.9 - Fever, unspecified; R50.9 - Fever, unspecified (2) Sacral decubitus ulcer, stage II Assessment/Plan: -seen by Vascular -offloading to the area -[facility] -wound culture shows MRSA and VRE Code(s): L89.152 - PRESSURE ULCER OF SACRAL REGION, STAGE 2 (3) Systemic inflammatory response syndrome (SIRS) Assessment/Plan: -seen by ID -Tylenol for fever over 100.0F Code(s): R65.10 - SIRS OF NON-INFECTIOUS ORIGIN W/O ACUTE ORGAN DYSFUNCTION (4) A-fib Assessment/Plan: -Chronic -uncontrolled 2/2 to sepsis and fever -on Eliquis -uncontrolled at this time, ordered digoxin Code(s): I48.91 - UNSPECIFIED ATRIAL FIBRILLATION Qualifiers: Atrial fibrillation type: paroxysmal Qualified Code(s): I48.0 - Paroxysmal atrial fibrillation; I48.0 - Paroxysmal atrial fibrillation; I48.0 - Paroxysmal atrial fibrillation; I48.0 - Paroxysmal atrial fibrillation (5) Acute and chronic respiratory failure with hypoxia Assessment/Plan: -on mechanical vent -poor prognosis knowing the existence of possible malignant neoplasm Code(s): J96.21 - ACUTE AND CHRONIC RESPIRATORY FAILURE WITH HYPOXIA (6) Sepsis Assessment/Plan: -on admission -BP okay -seen by ID -overall poor prognosis Code(s): A41.9 - SEPSIS, UNSPECIFIED ORGANISM Qualifiers: Sepsis type: sepsis due to unspecified organism Qualified Code(s): A41.9 - Sepsis, unspecified organism; A41.9 - Sepsis, unspecified organism; A41.9 - Sepsis, unspecified organism (7) Neoplasm of mediastinum Assessment/Plan: -wants biopsy -IR consult for biopsy -Oncology to see the patient again for possible treatment options. Code(s): D49.89 - NEOPLASM OF UNSPECIFIED BEHAVIOR OF OTHER SPECIFIED SITES Assessment/Plan see problem list
--- NOTE | 2017-09-08 16:15 | PN ---
Progress Note (short form) - Note Progress Note: seen and examined, chart reviewed in detail. Constitutional: Yes: No Distress, Calm, Other (On vent vai ET tube) Eyes: Yes: Conjunctiva Clear HENT: Yes: Atraumatic Neck: Yes: Supple Cardiovascular: Yes: Regular Rate and Rhythm Respiratory: Yes: Regular, Other (Course BS) Gastrointestinal: Yes: Normal Bowel Sounds, Soft. No: Tenderness Temp Pulse Resp BP Pulse Ox 98.3 F 119 H 14 115/85 95 09/08/17 13:53 09/08/17 13:53 09/08/17 14:57 09/08/17 13:53 09/08/17 11:00 CBC, BMP 09/05/17 06:58 09/07/17 10:50 Current Medications Generic Name Dose Route Start Last Admin Trade Name Freq PRN Reason Stop Dose Admin Acetaminophen 650 mg 08/27/17 17:36 09/07/17 20:22 Tylenol - PO 650 mg Q6H PRN Administration FEVER OR PAIN Albuterol/Ipratropium 1 amp 08/24/17 18:00 09/08/17 11:00 Duoneb - NEB 1 amp QIDR [facility] Administration Apixaban 5 mg 08/19/17 15:30 09/08/17 10:39 Eliquis - PO 5 mg BID [facility] Administration Digoxin 0.125 mg 09/08/17 15:30 Lanoxin - PO DAILY [facility] Diltiazem HCl 180 mg 09/03/17 10:00 09/08/17 10:39 Cardizem Cd - PO 180 mg DAILY [facility] Administration IV Flush 8 ml 08/30/17 11:52 Picc Line Flush IVPUSH PRN PRN Protocol Lactobacillus Acidophilus 1 tab 08/13/17 10:00 09/08/17 10:38 Bacid - PO 1 tab DAILY [facility] Administration Levothyroxine Sodium 88 mcg 08/30/17 07:00 09/08/17 06:38 Synthroid - PO 88 mcg DAILY@0700 [facility] Administration Magnesium Oxide 800 mg 09/07/17 17:05 09/08/17 10:39 Mag-Ox - PO 800 mg BID [facility] Administration Metronidazole 500 mg 08/23/17 07:30 09/08/17 14:57 Flagyl - PO 500 mg TID [facility] Administration Nystatin 1 applic 08/16/17 14:00 09/08/17 10:39 Nystop Powder - TP 1 applic DAILY [facility] Administration Ondansetron HCl 4 mg 09/04/17 15:12 09/04/17 15:40 Zofran Odt - SL 4 mg Q6H PRN Administration NAUSEA Potassium Chloride 40 meq 09/04/17 10:00 09/08/17 10:43 Potassium Chloride Oral Liquid PO 40 meq DAILY [facility] Administration Potassium Phos/Sodium Phos 1 packet 09/07/17 14:00 09/08/17 14:57 Phos-Nak Packet - PO 09/09/17 06:01 1 packet TID [facility] Administration Tamsulosin HCl 0.4 mg 08/23/17 17:30 09/07/17 18:00 Flomax - PO 0.4 mg DAILY@1730 [facility] Administration 67 year old woman with PMhx of Chronic Respiratory failure on vent, COPD, Anemia , Afib, Hypothyrodism who [place] with fever and anemia .Also c.diff/UTI CT chest showed 5cm sup. mediastinal mass encroaching SVC and destroying the sternum---? lung vs lymphoma vs thymoma. Chart reviewed in detail. Noted the possibility of biopsy. I have discussed the pt today in detail that if the biopsy is proven to be malignant which likely could be , as she is chronically debilitated/vent dependent, ongoing infections, and her current ECOG Performance being 3 , she would not be an eligible candidate for treatment. She asked me the meaning of "performance state", which I have explained in detail. The next question she asked me was , "what other options do I have?", I have elicited that supportive care/palliative care would be an option ,for which she stayed quiet. Then, she went on to ask, "how long will be the procedure of biopsy would be". She at the end of the conversation said she wanted "to know" what the mass is. Due to above and she understands, IR has been consulted, review of images would be done. In anticipation for the Procedure Eliquis needs to be on hold ( which I have explained to the pt) 1-2 days prior to the test. repeat coags, transfuse prn. active type and screen. will follow d/w Ms.Dipin Ash
[2017-09-08] MEDS: DIGOXIN 0.125 MG TABLET (FP) PO SCH (16:58)
[2017-09-08] MEDS: TAMSULOSIN HCL 0.4 MG CAP.ER.24H (FP) PO SCH (17:52)
--- NOTE | 2017-09-08 18:04 | PN ---
Progress Note, Physician Chief Complaint: Events noted Remains on mechanical ventilation via trache History of Present Illness: Patient was seen and examined. Awake and arousable. Chart was reviewed Denies chest pain or palpitations Blood pressure stable. Tachycardia - Current Medication List Current Medications: Active Medications Acetaminophen (Tylenol -) 650 mg PO Q6H PRN PRN Reason: FEVER OR PAIN Last Admin: 09/07/17 20:22 Dose: 650 mg Albuterol/Ipratropium (Duoneb -) 1 amp NEB QIDR [facility] Last Admin: 09/08/17 11:00 Dose: 1 amp Apixaban (Eliquis -) 5 mg PO BID [facility] Last Admin: 09/08/17 10:39 Dose: 5 mg Digoxin (Lanoxin -) 0.125 mg PO DAILY [facility] Last Admin: 09/08/17 16:58 Dose: 0.125 mg Diltiazem HCl (Cardizem Cd -) 180 mg PO DAILY [facility] Last Admin: 09/08/17 10:39 Dose: 180 mg IV Flush (Picc Line Flush) 8 ml IVPUSH PRN PRN PRN Reason: Protocol Lactobacillus Acidophilus (Bacid -) 1 tab PO DAILY [facility] Last Admin: 09/08/17 10:38 Dose: 1 tab Levothyroxine Sodium (Synthroid -) 88 mcg PO DAILY@0700 [facility] Last Admin: 09/08/17 06:38 Dose: 88 mcg Magnesium Oxide (Mag-Ox -) 800 mg PO BID [facility] Last Admin: 09/08/17 10:39 Dose: 800 mg Metronidazole (Flagyl -) 500 mg PO TID [facility] Last Admin: 09/08/17 14:57 Dose: 500 mg Nystatin (Nystop Powder -) 1 applic TP DAILY [facility] Last Admin: 09/08/17 10:39 Dose: 1 applic Ondansetron HCl (Zofran Odt -) 4 mg SL Q6H PRN PRN Reason: NAUSEA Last Admin: 09/04/17 15:40 Dose: 4 mg Potassium Chloride (Potassium Chloride Oral Liquid) 40 meq PO DAILY [facility] Last Admin: 09/08/17 10:43 Dose: 40 meq Potassium Phos/Sodium Phos (Phos-Nak Packet -) 1 packet PO TID [facility] Stop: 09/09/17 06:01 Last Admin: 09/08/17 14:57 Dose: 1 packet Tamsulosin HCl (Flomax -) 0.4 mg PO DAILY@1730 [facility] Last Admin: 09/08/17 17:52 Dose: 0.4 mg - Objective Vital Signs: Vital Signs Temperature 98.3 F 09/08/17 13:53 Pulse Rate 118 H 09/08/17 16:58 Respiratory Rate 14 09/08/17 14:57 Blood Pressure 115/85 09/08/17 13:53 O2 Sat by Pulse Oximetry (%) 95 09/08/17 11:00 Cardiovascular: Yes: Regular Rate and Rhythm, Tachycardia, S1, S2 Respiratory: Yes: Mechanically Ventilated Gastrointestinal: Yes: Normal Bowel Sounds, Soft. No: Tenderness Edema: No Labs: CBC, BMP 09/05/17 06:58 09/07/17 10:50 Problem List - Problems (1) A-fib Code(s): I48.91 - UNSPECIFIED ATRIAL FIBRILLATION Qualifiers: Atrial fibrillation type: paroxysmal Qualified Code(s): I48.0 - Paroxysmal atrial fibrillation; I48.0 - Paroxysmal atrial fibrillation; I48.0 - Paroxysmal atrial fibrillation; I48.0 - Paroxysmal atrial fibrillation (2) Acute and chronic respiratory failure with hypoxia Code(s): J96.21 - ACUTE AND CHRONIC RESPIRATORY FAILURE WITH HYPOXIA (3) Acute on chronic respiratory failure with hypoxia and hypercapnia Code(s): J96.21 - ACUTE AND CHRONIC RESPIRATORY FAILURE WITH HYPOXIA J96.22 - ACUTE AND CHRONIC RESPIRATORY FAILURE WITH HYPERCAPNIA (4) Anemia Code(s): D64.9 - ANEMIA, UNSPECIFIED Qualifiers: Anemia type: unspecified type Qualified Code(s): D64.9 - Anemia, unspecified; D64.9 - Anemia, unspecified (5) COPD (chronic obstructive pulmonary disease) Code(s): J44.9 - CHRONIC OBSTRUCTIVE PULMONARY DISEASE, UNSPECIFIED Qualifiers : COPD type: unspecified COPD Qualified Code(s): J44.9 - Chronic obstructive pulmonary disease, unspecified; J44.9 - Chronic obstructive pulmonary disease, unspecified; J44.9 - Chronic obstructive pulmonary disease, unspecified; J44.9 - Chronic obstructive pulmonary disease, unspecified (6) Diastolic heart failure Code(s): I50.30 - UNSPECIFIED DIASTOLIC (CONGESTIVE) HEART FAILURE Qualifiers : Heart failure chronicity: chronic Qualified Code(s): I50.32 - Chronic diastolic (congestive) heart failure; I50.32 - Chronic diastolic ( congestive) heart failure; I50.32 - Chronic diastolic (congestive) heart failure ; I50.32 - Chronic diastolic (congestive) heart failure (7) Hypothyroid Code(s): E03.9 - HYPOTHYROIDISM, UNSPECIFIED Qualifiers: Hypothyroidism type: unspecified Qualified Code(s): E03.9 - Hypothyroidism, unspecified; E03.9 - Hypothyroidism, unspecified; E03.9 - Hypothyroidism, unspecified (8) Pneumonia Code(s): J18.9 - PNEUMONIA, UNSPECIFIED ORGANISM Qualifiers: Pneumonia type: due to unspecified organism Laterality: left Lung location: lower lobe of lung Qualified Code(s): J18.1 - Lobar pneumonia, unspecified organism; J18.1 - Lobar pneumonia, unspecified organism; J18.1 - Lobar pneumonia, unspecified organism (9) Tracheostomy dependence Code(s): Z93.0 - TRACHEOSTOMY STATUS Assessment/Plan 1. 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 COPD with acute on chronic hypoxic/hypercapneic respiratory failure post tracheostomy 3. Diastolic LV dysfunction with class I NYHA classification LV congestive heart failure, compensated/euvolemic 4. Paroxysmal Atrial Fibrillation/atrial tachycardia on NOAC ([id number] score of 4) 5. HTN 6. Hypothyroidism 7. History of C. Difficile Colitis 8. History of MARLYN, resolved 9. 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 Inhaled bronchodilators, O2, GI prophylaxis and continue ventilation support 2. Continue Cardizem CD as tolerated. Monitor blood pressure. Valsartan has been discontinue, but may reinitiate once BP is stabilized 3. Continue Eliquis 5 bid 4. Transfuse PRBC as needed 5. Palliative care in progress. Further input regarding mediastinal mass Bert Ivan MD
[2017-09-08] MEDS: ACETAMINOPHEN 325 MG TABLET (FP) PO PRN (22:27)
[2017-09-09] MEDS: metroNIDAZOLE 250 MG TABLET PO SCH (06:11)
[2017-09-09] MEDS: NAPH,MB-DB/K PH,MBDB POWDER PACKET PO SCH (06:11)
[2017-09-09] MEDS: LEVOTHYROXINE NA 88 MCG TABLET (FP) PO SCH (06:11)
[2017-09-09] MEDS: ALBUTEROL SO4 2.5/IPRATROPIUM 0.5 INH SOL 3 ML VIAL.NEB. NEB SCH ×4 (06:56→23:25)
[2017-09-09 10:21] LABS: BASOPHIL 0.7 % (0-2.0); MCH 28.2 pg (25.7-33.7); MCHC 31.9 g/dl (32.0-36.0); MEAN CELL VOLUME 88.3 fl (80-96); MEAN PLT VOLUME 8.4 fl (7.5-11.1); NEUTROPHILS 80.1 % (42.8-82.8); PLATELET COUNT 500 K/MM3 (134-434); RDW 16.7 % (11.6-15.6); WHITE BLOOD COUNT 14.2 K/mm3 (4.0-10.0)
[2017-09-09] MEDS: NYSTATIN POWDER 100,000 UNITS/GM - 15 GM TOPICAL POWDER TP SCH (10:27)
[2017-09-09 10:41] LABS: INR 1.96 (0.82-1.09); PROTHROMBIN TIME (PATIENT) 22.2 SEC (9.98-11.88)
[2017-09-09 10:43] LABS: ANION GAP 13 (8-16); CALCIUM 8.2 mg/dL (8.5-10.1); CO2 23 mmol/L (21-32); GLUCOSE,RANDOM 113 mg/dL (74-106)
[2017-09-09 10:44] LABS: ACTIVATED PTT 45.1 SECONDS (26.9-34.4)
[2017-09-09 10:45] LABS: CREATININE 0.4 mg/dL (0.55-1.02); MAGNESIUM 1.9 mg/dL (1.8-2.4); PHOSPHOROUS 4.5 mg/dL (2.5-4.9)
[2017-09-09] MEDS: LACTOBACILLUS ACIDOPHILUS 1 EACH TAB (FP) PO SCH (10:49)
[2017-09-09] MEDS: MAGNESIUM OXIDE 400 MG TABLET (FP) PO SCH ×2 (10:50→21:51)
[2017-09-09] MEDS: DIGOXIN 0.125 MG TABLET (FP) PO SCH (10:50)
[2017-09-09] MEDS: POTASSIUM CHLORIDE ORAL LIQUID 20 MEQ/15 ML PO SCH (10:54)
--- NOTE | 2017-09-09 11:11 | PN ---
Progress Note (short form) - Note Progress Note: NAD low grade temps intermittent persistent tachycardia-being followed by cardiology alert asked to f/u by PMD for wbc of 14k eating poorly soft stools scant per nursing on flagyl since 08/23 off antibiotics since 08/31 Vital Signs Period Temp Pulse Resp BP Sys/Parra Pulse Ox Last 24 Hr 97.5 F-100.4 F 112-133 12-18 92-117/52-89 100 trach to vent bilateral UE edema cor-rrr lungs decreased bs at bases abd soft,nt lower ext no edema no iv CBC, BMP 09/09/17 09:30 09/09/17 09:30 Current Medications Acetaminophen (Tylenol -) 650 mg PO Q6H PRN PRN Reason: FEVER OR PAIN Last Admin: 09/08/17 22:27 Dose: 650 mg Albuterol/Ipratropium (Duoneb -) 1 amp NEB QIDR [facility] Last Admin: 09/09/17 06:56 Dose: 1 amp Apixaban (Eliquis -) 5 mg PO BID [facility] Last Admin: 09/08/17 10:39 Dose: 5 mg Digoxin (Lanoxin -) 0.125 mg PO DAILY [facility] Last Admin: 09/09/17 10:50 Dose: 0.125 mg Diltiazem HCl (Cardizem Cd -) 180 mg PO DAILY [facility] Last Admin: 09/09/17 10:49 Dose: 180 mg IV Flush (Picc Line Flush) 8 ml IVPUSH PRN PRN PRN Reason: Protocol Lactobacillus Acidophilus (Bacid -) 1 tab PO DAILY [facility] Last Admin: 09/09/17 10:49 Dose: 1 tab Levothyroxine Sodium (Synthroid -) 88 mcg PO DAILY@0700 [facility] Last Admin: 09/09/17 06:11 Dose: 88 mcg Magnesium Oxide (Mag-Ox -) 800 mg PO BID [facility] Last Admin: 09/09/17 10:50 Dose: 800 mg Metronidazole (Flagyl -) 500 mg PO TID [facility] Last Admin: 09/09/17 06:11 Dose: 500 mg Nystatin (Nystop Powder -) 1 applic TP DAILY [facility] Last Admin: 09/08/17 10:39 Dose: 1 applic Ondansetron HCl (Zofran Odt -) 4 mg SL Q6H PRN PRN Reason: NAUSEA Last Admin: 09/04/17 15:40 Dose: 4 mg Potassium Chloride (Potassium Chloride Oral Liquid) 40 meq PO DAILY [facility] Last Admin: 09/09/17 10:54 Dose: 40 meq Tamsulosin HCl (Flomax -) 0.4 mg PO DAILY@1730 [facility] Last Admin: 09/08/17 17:52 Dose: 0.4 mg imp/reccd FUO- suspect malignancy related, ?lymphoma, ?thymoma- plan for biopsy once inr is corrected can d/c flagyl-has been getting it for over 2 weeks- may help with appetite if diarrhea recurs or leukocytosis persists would repeat blood cultures and cdiff overall prognosis is poor chronic resp failure- on vent via trach 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
--- NOTE | 2017-09-09 12:33 | PN ---
Progress Note, Physician History of Present Illness: PULMONARY ALERT ON VENT SUPPORT,COMFORTABLE,-RESP DISTRESS - Current Medication List Current Medications: Active Medications Acetaminophen (Tylenol -) 650 mg PO Q6H PRN PRN Reason: FEVER OR PAIN Last Admin: 09/08/17 22:27 Dose: 650 mg Albuterol/Ipratropium (Duoneb -) 1 amp NEB QIDR [facility] Last Admin: 09/09/17 11:31 Dose: 1 amp Apixaban (Eliquis -) 5 mg PO BID [facility] Last Admin: 09/08/17 10:39 Dose: 5 mg Digoxin (Lanoxin -) 0.125 mg PO DAILY [facility] Last Admin: 09/09/17 10:50 Dose: 0.125 mg Diltiazem HCl (Cardizem Cd -) 180 mg PO DAILY [facility] Last Admin: 09/09/17 10:49 Dose: 180 mg IV Flush (Picc Line Flush) 8 ml IVPUSH PRN PRN PRN Reason: Protocol Lactobacillus Acidophilus (Bacid -) 1 tab PO DAILY [facility] Last Admin: 09/09/17 10:49 Dose: 1 tab Levothyroxine Sodium (Synthroid -) 88 mcg PO DAILY@0700 [facility] Last Admin: 09/09/17 06:11 Dose: 88 mcg Magnesium Oxide (Mag-Ox -) 800 mg PO BID [facility] Last Admin: 09/09/17 10:50 Dose: 800 mg Nystatin (Nystop Powder -) 1 applic TP DAILY [facility] Last Admin: 09/08/17 10:39 Dose: 1 applic Ondansetron HCl (Zofran Odt -) 4 mg SL Q6H PRN PRN Reason: NAUSEA Last Admin: 09/04/17 15:40 Dose: 4 mg Potassium Chloride (Potassium Chloride Oral Liquid) 40 meq PO DAILY [facility] Last Admin: 09/09/17 10:54 Dose: 40 meq Tamsulosin HCl (Flomax -) 0.4 mg PO DAILY@1730 [facility] Last Admin: 09/08/17 17:52 Dose: 0.4 mg - Objective Vital Signs: Vital Signs Temperature 97.8 F 09/09/17 10:00 Pulse Rate 133 H 09/09/17 10:50 Respiratory Rate 22 09/09/17 10:40 Blood Pressure 140/52 09/09/17 10:00 O2 Sat by Pulse Oximetry (%) 100 09/08/17 21:00 Constitutional: Yes: Calm, Thin Eyes: Yes: WNL HENT: Yes: WNL Neck: Yes: Supple (TRACH) Cardiovascular: Yes: Pulse Irregular, S1, S2 Respiratory: Yes: Diminished Gastrointestinal: Yes: Normal Bowel Sounds, Soft Extremities: Yes: WNL Edema: No Labs: CBC, BMP 09/09/17 09:30 09/09/17 09:30 INR, PTT INR 1.96 (0.82-1.09) H 09/09/17 09:30 Problem List - Problems (1) Fever Code(s): R50.9 - FEVER, UNSPECIFIED Qualifiers: Fever type: unspecified Qualified Code(s): R50.9 - Fever, unspecified; R50.9 - Fever, unspecified (2) Hematuria Code(s): R31.9 - HEMATURIA, UNSPECIFIED Qualifiers: Hematuria type: unspecified type Qualified Code(s): R31.9 - Hematuria, unspecified; R31.9 - Hematuria, unspecified (3) Sacral decubitus ulcer, stage II Code(s): L89.152 - PRESSURE ULCER OF SACRAL REGION, STAGE 2 (4) A-fib Code(s): I48.91 - UNSPECIFIED ATRIAL FIBRILLATION Qualifiers: Atrial fibrillation type: paroxysmal Qualified Code(s): I48.0 - Paroxysmal atrial fibrillation; I48.0 - Paroxysmal atrial fibrillation; I48.0 - Paroxysmal atrial fibrillation; I48.0 - Paroxysmal atrial fibrillation (5) Acute on chronic respiratory failure with hypoxia and hypercapnia Code(s): J96.21 - ACUTE AND CHRONIC RESPIRATORY FAILURE WITH HYPOXIA J96.22 - ACUTE AND CHRONIC RESPIRATORY FAILURE WITH HYPERCAPNIA (6) Anemia Code(s): D64.9 - ANEMIA, UNSPECIFIED Qualifiers: Anemia type: unspecified type Qualified Code(s): D64.9 - Anemia, unspecified; D64.9 - Anemia, unspecified (7) COPD (chronic obstructive pulmonary disease) Code(s): J44.9 - CHRONIC OBSTRUCTIVE PULMONARY DISEASE, UNSPECIFIED Qualifiers : COPD type: unspecified COPD Qualified Code(s): J44.9 - Chronic obstructive pulmonary disease, unspecified; J44.9 - Chronic obstructive pulmonary disease, unspecified; J44.9 - Chronic obstructive pulmonary disease, unspecified; J44.9 - Chronic obstructive pulmonary disease, unspecified (8) Chest pain Code(s): R07.9 - CHEST PAIN, UNSPECIFIED Qualifiers: Chest pain type: pleurodynia Qualified Code(s): R07.81 - Pleurodynia ; R07.81 - Pleurodynia (9) Diastolic heart failure Code(s): I50.30 - UNSPECIFIED DIASTOLIC (CONGESTIVE) HEART FAILURE Qualifiers : Heart failure chronicity: chronic Qualified Code(s): I50.32 - Chronic diastolic (congestive) heart failure; I50.32 - Chronic diastolic ( congestive) heart failure; I50.32 - Chronic diastolic (congestive) heart failure ; I50.32 - Chronic diastolic (congestive) heart failure (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 Assessment/Plan IMP ACUTE ON CHRONIC HYPOXEMIC/HYPERCAPNEIC RESPIRATORY FAILURE INVASIVE ANT MEDIASTINAL MASS FEVER ANEMIA COPD AFIB HEMATURIA DIASTOLIC HF PLAN VENT SUPPORT ON AC MODE INHALED BRONCHODILATORS MONITOR H+H PASSY RENEA VALVE TOLERATED AC DR RAGLAND Problem List - Problems (1) Fever Code(s): R50.9 - FEVER, UNSPECIFIED Qualifiers: Fever type: unspecified Qualified Code(s): R50.9 - Fever, unspecified; R50.9 - Fever, unspecified (2) Hematuria Code(s): R31.9 - HEMATURIA, UNSPECIFIED Qualifiers: Hematuria type: unspecified type Qualified Code(s): R31.9 - Hematuria, unspecified; R31.9 - Hematuria, unspecified (3) Sacral decubitus ulcer, stage II Code(s): L89.152 - PRESSURE ULCER OF SACRAL REGION, STAGE 2 (4) A-fib Code(s): I48.91 - UNSPECIFIED ATRIAL FIBRILLATION Qualifiers: (5) Acute on chronic respiratory failure with hypoxia and hypercapnia Code(s): J96.21 - ACUTE AND CHRONIC RESPIRATORY FAILURE WITH HYPOXIA J96.22 - ACUTE AND CHRONIC RESPIRATORY FAILURE WITH HYPERCAPNIA (6) Anemia Code(s): D64.9 - ANEMIA, UNSPECIFIED Qualifiers: Anemia type: unspecified type Qualified Code(s): D64.9 - Anemia, unspecified; D64.9 - Anemia, unspecified (7) COPD (chronic obstructive pulmonary disease) Code(s): J44.9 - CHRONIC OBSTRUCTIVE PULMONARY DISEASE, UNSPECIFIED Qualifiers : COPD type: unspecified COPD Qualified Code(s): J44.9 - Chronic obstructive pulmonary disease, unspecified; J44.9 - Chronic obstructive pulmonary disease, unspecified; J44.9 - Chronic obstructive pulmonary disease, unspecified; J44.9 - Chronic obstructive pulmonary disease, unspecified (8) Chest pain Code(s): R07.9 - CHEST PAIN, UNSPECIFIED Qualifiers: Chest pain type: pleurodynia Qualified Code(s): R07.81 - Pleurodynia ; R07.81 - Pleurodynia (9) Diastolic heart failure Code(s): I50.30 - UNSPECIFIED DIASTOLIC (CONGESTIVE) HEART FAILURE Qualifiers : Heart failure chronicity: chronic Qualified Code(s): I50.32 - Chronic diastolic (congestive) heart failure; I50.32 - Chronic diastolic ( congestive) heart failure; I50.32 - Chronic diastolic (congestive) heart failure ; I50.32 - Chronic diastolic (congestive) heart failure (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
--- NOTE | 2017-09-09 14:37 | PN ---
Progress Note, Physician Chief Complaint: UTI, Fever History of Present Illness: NAD, on mech vent febrile last evening poor appetite, having just sips of ensure diarrhea resolved seen by ID, cardiology, pulmonary and nephrology CT chest showed possible malignant neoplasm in the mediastinum Was seen by Palliative medicine. Patient aware of her diagnosis Pending IR biopsy - Current Medication List Current Medications: Active Medications Acetaminophen (Tylenol -) 650 mg PO Q6H PRN PRN Reason: FEVER OR PAIN Last Admin: 09/08/17 22:27 Dose: 650 mg Albuterol/Ipratropium (Duoneb -) 1 amp NEB QIDR [facility] Last Admin: 09/09/17 11:31 Dose: 1 amp Apixaban (Eliquis -) 5 mg PO BID [facility] Last Admin: 09/08/17 10:39 Dose: 5 mg Digoxin (Lanoxin -) 0.125 mg PO DAILY [facility] Last Admin: 09/09/17 10:50 Dose: 0.125 mg Diltiazem HCl (Cardizem Cd -) 180 mg PO DAILY [facility] Last Admin: 09/09/17 10:49 Dose: 180 mg IV Flush (Picc Line Flush) 8 ml IVPUSH PRN PRN PRN Reason: Protocol Lactobacillus Acidophilus (Bacid -) 1 tab PO DAILY [facility] Last Admin: 09/09/17 10:49 Dose: 1 tab Levothyroxine Sodium (Synthroid -) 88 mcg PO DAILY@0700 [facility] Last Admin: 09/09/17 06:11 Dose: 88 mcg Magnesium Oxide (Mag-Ox -) 800 mg PO BID [facility] Last Admin: 09/09/17 10:50 Dose: 800 mg Nystatin (Nystop Powder -) 1 applic TP DAILY [facility] Last Admin: 09/08/17 10:39 Dose: 1 applic Ondansetron HCl (Zofran Odt -) 4 mg SL Q6H PRN PRN Reason: NAUSEA Last Admin: 09/04/17 15:40 Dose: 4 mg Potassium Chloride (Potassium Chloride Oral Liquid) 40 meq PO DAILY [facility] Last Admin: 09/09/17 10:54 Dose: 40 meq Tamsulosin HCl (Flomax -) 0.4 mg PO DAILY@1730 [facility] Last Admin: 09/08/17 17:52 Dose: 0.4 mg - Objective Vital Signs: Vital Signs Temperature 97.8 F 09/09/17 10:00 Pulse Rate 133 H 09/09/17 10:50 Respiratory Rate 22 09/09/17 10:40 Blood Pressure 140/52 09/09/17 10:00 O2 Sat by Pulse Oximetry (%) 100 09/08/17 21:00 Constitutional: Yes: Well Nourished, No Distress, Calm Cardiovascular: Yes: Regular Rate and Rhythm Respiratory: Yes: Regular Musculoskeletal: Yes: WNL Extremities: Yes: WNL Edema: No Peripheral Pulses WNL: Yes Neurological: Yes: Alert, Oriented Psychiatric: Yes: Alert, Oriented Labs: CBC, BMP 09/09/17 09:30 09/09/17 09:30 INR, PTT INR 1.96 (0.82-1.09) H 09/09/17 09:30 Problem List - Problems (1) Fever Assessment/Plan: -febrile last night -tylenol for fever over 100.0F Code(s): R50.9 - FEVER, UNSPECIFIED Qualifiers: Fever type: unspecified Qualified Code(s): R50.9 - Fever, unspecified; R50.9 - Fever, unspecified (2) Sacral decubitus ulcer, stage II Assessment/Plan: -seen by Vascular -offloading to the area -santyl -wound culture shows MRSA and VRE Code(s): L89.152 - PRESSURE ULCER OF SACRAL REGION, STAGE 2 (3) Systemic inflammatory response syndrome (SIRS) Assessment/Plan: -seen by ID -Tylenol for fever over 100.0F Code(s): R65.10 - SIRS OF NON-INFECTIOUS ORIGIN W/O ACUTE ORGAN DYSFUNCTION (4) A-fib Assessment/Plan: -Chronic -uncontrolled 2/2 to sepsis and fever -Eliquis on hold -on heparin SQ BID -uncontrolled at this time, ordered digoxin Code(s): I48.91 - UNSPECIFIED ATRIAL FIBRILLATION Qualifiers: Atrial fibrillation type: paroxysmal Qualified Code(s): I48.0 - Paroxysmal atrial fibrillation; I48.0 - Paroxysmal atrial fibrillation; I48.0 - Paroxysmal atrial fibrillation; I48.0 - Paroxysmal atrial fibrillation (5) Acute and chronic respiratory failure with hypoxia Assessment/Plan: -on mechanical vent -poor prognosis knowing the existence of possible malignant neoplasm Code(s): J96.21 - ACUTE AND CHRONIC RESPIRATORY FAILURE WITH HYPOXIA (6) Sepsis Assessment/Plan: -on admission -BP okay -seen by ID -overall poor prognosis Code(s): A41.9 - SEPSIS, UNSPECIFIED ORGANISM Qualifiers: Sepsis type: sepsis due to unspecified organism Qualified Code(s): A41.9 - Sepsis, unspecified organism; A41.9 - Sepsis, unspecified organism; A41.9 - Sepsis, unspecified organism (7) Neoplasm of mediastinum Assessment/Plan: -wants biopsy -IR consult for biopsy -Oncology consult Code(s): D49.89 - NEOPLASM OF UNSPECIFIED BEHAVIOR OF OTHER SPECIFIED SITES Assessment/Plan see problem list
--- NOTE | 2017-09-09 15:51 | PN ---
Progress Note (short form) - Note Progress Note: Renal follow up for Hyponatremia Pt seen and examined at the bedside awake and alert no overnight events Vital Signs Temperature 97.8 F 09/09/17 10:00 Pulse Rate 133 H 09/09/17 10:50 Respiratory Rate 20 09/09/17 14:48 Blood Pressure 140/52 09/09/17 10:00 O2 Sat by Pulse Oximetry (%) 100 09/08/17 21:00 Intake & Output 09/06/17 09/07/17 09/08/17 09/09/17 23:59 23:59 23:59 23:59 Intake Total 903 389 9429 765 Balance 626 761 2434 765 Weight 88 lb 12.8 oz NAD, awake and alert on Vent via trach RRR Course BS soft NT/ND Abd No Le edema CBC, BMP 09/09/17 09:30 09/09/17 09:30 Current Medications Acetaminophen (Tylenol -) 650 mg PO Q6H PRN PRN Reason: FEVER OR PAIN Last Admin: 09/08/17 22:27 Dose: 650 mg Albuterol/Ipratropium (Duoneb -) 1 amp NEB QIDR [facility] Last Admin: 09/09/17 11:31 Dose: 1 amp Apixaban (Eliquis -) 5 mg PO BID [facility] Last Admin: 09/08/17 10:39 Dose: 5 mg Digoxin (Lanoxin -) 0.125 mg PO DAILY [facility] Last Admin: 09/09/17 10:50 Dose: 0.125 mg Diltiazem HCl (Cardizem Cd -) 180 mg PO DAILY [facility] Last Admin: 09/09/17 10:49 Dose: 180 mg Heparin Sodium (Porcine) (Heparin -) 5,000 unit SQ BID [facility] IV Flush (Picc Line Flush) 8 ml IVPUSH PRN PRN PRN Reason: Protocol Lactobacillus Acidophilus (Bacid -) 1 tab PO DAILY [facility] Last Admin: 09/09/17 10:49 Dose: 1 tab Levothyroxine Sodium (Synthroid -) 88 mcg PO DAILY@0700 [facility] Last Admin: 09/09/17 06:11 Dose: 88 mcg Magnesium Oxide (Mag-Ox -) 800 mg PO BID [facility] Last Admin: 09/09/17 10:50 Dose: 800 mg Nystatin (Nystop Powder -) 1 applic TP DAILY [facility] Last Admin: 09/08/17 10:39 Dose: 1 applic Ondansetron HCl (Zofran Odt -) 4 mg SL Q6H PRN PRN Reason: NAUSEA Last Admin: 09/04/17 15:40 Dose: 4 mg Potassium Chloride (Potassium Chloride Oral Liquid) 40 meq PO DAILY [facility] Last Admin: 09/09/17 10:54 Dose: 40 meq Tamsulosin HCl (Flomax -) 0.4 mg PO DAILY@1730 [facility] Last Admin: 09/08/17 17:52 Dose: 0.4 mg A/p 67 year old woman with PMhx of Chronic Respiratory failure on vent, COPD, Anemia , Afib, Hypothyrodism who presented from the [place] with fever and anemia and with hyponatremia and hypokalemia. #Electrolyte abnormalities (hyponatremia, Hypokalemia, Hypophosphatemia) K, Mg all improved Serum Na stable no indication for 3% saline Trend electrolytes daily #Mediastinal Mass for biopsy #Chronic Respiratory Failure continue Vent support Fernando Douglas DO Problem List - Problems (1) COPD (chronic obstructive pulmonary disease) Code(s): J44.9 - CHRONIC OBSTRUCTIVE PULMONARY DISEASE, UNSPECIFIED Qualifiers : COPD type: unspecified COPD Qualified Code(s): J44.9 - Chronic obstructive pulmonary disease, unspecified; J44.9 - Chronic obstructive pulmonary disease, unspecified; J44.9 - Chronic obstructive pulmonary disease, unspecified; J44.9 - Chronic obstructive pulmonary disease, unspecified (2) Respiratory failure Code(s): J96.90 - RESPIRATORY FAILURE, UNSP, UNSP W HYPOXIA OR HYPERCAPNIA Qualifiers: Chronicity: acute on chronic Respiratory failure complication: hypercapnia Qualified Code(s): J96.22 - Acute and chronic respiratory failure with hypercapnia; J96.22 - Acute and chronic respiratory failure with hypercapnia; J96.22 - Acute and chronic respiratory failure with hypercapnia (3) Hyponatremia Code(s): E87.1 - HYPO-OSMOLALITY AND HYPONATREMIA (4) Hypokalemia Code(s): E87.6 - HYPOKALEMIA
--- NOTE | 2017-09-09 16:37 | PN ---
Progress Note, Physician History of Present Illness: Afebrile, resting comfortably on vent, tachycardic. - Current Medication List Current Medications: Active Medications Acetaminophen (Tylenol -) 650 mg PO Q6H PRN PRN Reason: FEVER OR PAIN Last Admin: 09/08/17 22:27 Dose: 650 mg Albuterol/Ipratropium (Duoneb -) 1 amp NEB QIDR [facility] Last Admin: 09/09/17 11:31 Dose: 1 amp Apixaban (Eliquis -) 5 mg PO BID [facility] Last Admin: 09/08/17 10:39 Dose: 5 mg Digoxin (Lanoxin -) 0.125 mg PO DAILY [facility] Last Admin: 09/09/17 10:50 Dose: 0.125 mg Diltiazem HCl (Cardizem Cd -) 180 mg PO DAILY [facility] Last Admin: 09/09/17 10:49 Dose: 180 mg Heparin Sodium (Porcine) (Heparin -) 5,000 unit SQ BID [facility] IV Flush (Picc Line Flush) 8 ml IVPUSH PRN PRN PRN Reason: Protocol Lactobacillus Acidophilus (Bacid -) 1 tab PO DAILY [facility] Last Admin: 09/09/17 10:49 Dose: 1 tab Levothyroxine Sodium (Synthroid -) 88 mcg PO DAILY@0700 [facility] Last Admin: 09/09/17 06:11 Dose: 88 mcg Magnesium Oxide (Mag-Ox -) 800 mg PO BID [facility] Last Admin: 09/09/17 10:50 Dose: 800 mg Nystatin (Nystop Powder -) 1 applic TP DAILY [facility] Last Admin: 09/08/17 10:39 Dose: 1 applic Ondansetron HCl (Zofran Odt -) 4 mg SL Q6H PRN PRN Reason: NAUSEA Last Admin: 09/04/17 15:40 Dose: 4 mg Potassium Chloride (Potassium Chloride Oral Liquid) 40 meq PO DAILY [facility] Last Admin: 09/09/17 10:54 Dose: 40 meq Tamsulosin HCl (Flomax -) 0.4 mg PO DAILY@1730 [facility] Last Admin: 09/08/17 17:52 Dose: 0.4 mg - Objective Vital Signs: Vital Signs Temperature 97.8 F 09/09/17 10:00 Pulse Rate 133 H 09/09/17 10:50 Respiratory Rate 20 09/09/17 14:48 Blood Pressure 140/52 09/09/17 10:00 O2 Sat by Pulse Oximetry (%) 100 09/08/17 21:00 Constitutional: Yes: No Distress, Calm Cardiovascular: Yes: Tachycardia Respiratory: Yes: Diminished, Mechanically Ventilated Gastrointestinal: Yes: Soft, Hypoactive Bowel Sounds Edema: No Labs: CBC, BMP 09/09/17 09:30 09/09/17 09:30 INR, PTT INR 1.96 (0.82-1.09) H 09/09/17 09:30 - ....Imaging EKG: Report Reviewed (EKG: MAT @ 141, low volts) Problem List - Problems (1) Fever Code(s): R50.9 - FEVER, UNSPECIFIED Qualifiers: Fever type: unspecified Qualified Code(s): R50.9 - Fever, unspecified; R50.9 - Fever, unspecified (2) Hematuria Code(s): R31.9 - HEMATURIA, UNSPECIFIED Qualifiers: Hematuria type: unspecified type Qualified Code(s): R31.9 - Hematuria, unspecified; R31.9 - Hematuria, unspecified (3) Acute on chronic respiratory failure with hypoxia and hypercapnia Code(s): J96.21 - ACUTE AND CHRONIC RESPIRATORY FAILURE WITH HYPOXIA J96.22 - ACUTE AND CHRONIC RESPIRATORY FAILURE WITH HYPERCAPNIA (4) COPD (chronic obstructive pulmonary disease) Code(s): J44.9 - CHRONIC OBSTRUCTIVE PULMONARY DISEASE, UNSPECIFIED Qualifiers : COPD type: unspecified COPD Qualified Code(s): J44.9 - Chronic obstructive pulmonary disease, unspecified; J44.9 - Chronic obstructive pulmonary disease, unspecified; J44.9 - Chronic obstructive pulmonary disease, unspecified; J44.9 - Chronic obstructive pulmonary disease, unspecified (5) Diastolic heart failure Code(s): I50.30 - UNSPECIFIED DIASTOLIC (CONGESTIVE) HEART FAILURE Qualifiers : Heart failure chronicity: chronic Qualified Code(s): I50.32 - Chronic diastolic (congestive) heart failure; I50.32 - Chronic diastolic ( congestive) heart failure; I50.32 - Chronic diastolic (congestive) heart failure ; I50.32 - Chronic diastolic (congestive) heart failure (6) Hypothyroid Code(s): E03.9 - HYPOTHYROIDISM, UNSPECIFIED Qualifiers: Hypothyroidism type: unspecified Qualified Code(s): E03.9 - Hypothyroidism, unspecified; E03.9 - Hypothyroidism, unspecified; E03.9 - Hypothyroidism, unspecified (7) Tracheostomy dependence Code(s): Z93.0 - TRACHEOSTOMY STATUS (8) UTI (urinary tract infection) Code(s): N39.0 - URINARY TRACT INFECTION, SITE NOT SPECIFIED Qualifiers: Urinary tract infection type: site unspecified Hematuria presence: with hematuria Qualified Code(s): N39.0 - Urinary tract infection, site not specified; N39.0 - Urinary tract infection, site not specified; R31.9 - Hematuria, unspecified; R31.9 - Hematuria, unspecified (9) A-fib Code(s): I48.91 - UNSPECIFIED ATRIAL FIBRILLATION Qualifiers: Atrial fibrillation type: paroxysmal Qualified Code(s): I48.0 - Paroxysmal atrial fibrillation; I48.0 - Paroxysmal atrial fibrillation; I48.0 - Paroxysmal atrial fibrillation; I48.0 - Paroxysmal atrial fibrillation (10) Anticoagulant long-term use Code(s): Z79.01 - [employer] (CURRENT) USE OF ANTICOAGULANTS (11) Mediastinal mass Code(s): J98.59 - OTHER DISEASES OF MEDIASTINUM, NOT ELSEWHERE CLASSIFIED (12) Multifocal atrial tachycardia Code(s): I47.1 - SUPRAVENTRICULAR TACHYCARDIA Assessment/Plan 1. 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 COPD with acute on chronic hypoxic/hypercapneic respiratory failure post tracheostomy 3. Diastolic LV dysfunction with class I NYHA classification LV congestive heart failure, compensated/euvolemic 4. Paroxysmal Atrial Fibrillation/multifocal atrial tachycardia on NOAC ( [id number] score of 4) 5. HTN 6. Hypothyroidism 7. History of C. Difficile Colitis 8. History of MARLYN, resolved 9. 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 Inhaled bronchodilators, O2, GI prophylaxis and continue ventilation support , PMV as tolerated 2. Increase Cardizem CD 240 qd as tolerated. Monitor blood pressure. Valsartan has been discontinue, but may reinitiate once BP is stabilized 3. Continue Eliquis 5 bid 4. Transfuse PRBC as needed 5. Palliative care in progress. Further input regarding mediastinal mass
[2017-09-09] MEDS ORDERED: dilTIAZem HCL 60 MG TABLET (FP) PO ONE (16:58)
[2017-09-09] MEDS: TAMSULOSIN HCL 0.4 MG CAP.ER.24H (FP) PO SCH (17:27)
[2017-09-09] MEDS: ACETAMINOPHEN 325 MG TABLET (FP) PO PRN (20:05)
[2017-09-09] MEDS: HEPARIN NA (PORCINE) 5,000 UNITS/ML 1ML VIAL SQ SCH (21:51)
[2017-09-09] MEDS ORDERED: SODIUM CHLORIDE 1,000 ML IV STA (22:27)
--- NOTE | 2017-09-09 22:41 | HOSP ---
Subjective - Review of Symptoms Events since last encounter: Code 99 was called overhead around 10pm. Arrived in room, patient was found to be pulseless, eyes rolled back, unresponsive, ventilator beeping. CPR initiated immediately and given for ~5 minutes, trach suctioned then patient became responsive. night monitor shows sinus tachycardia and patient started breathing spontaneously on vent, saturating at 97%. stat EKG, ABG, CXR ordered. BP was 88/60, stat fluid 500ml was ordered. Attending (Dr. Reese) spoke to Dr. Lopez, will prep the patient for CTA tomorrow. Physical Examination Vital Signs: Vital Signs Temperature 99.7 F H 09/09/17 19:00 Pulse Rate 122 H 09/09/17 19:00 Respiratory Rate 16 09/09/17 19:00 Blood Pressure 101/51 09/09/17 19:00 O2 Sat by Pulse Oximetry (%) 99 09/09/17 09:00 Constitutional: Yes: Severe Distress Cardiovascular: Yes: Tachycardia, Pulse Irregular. No: Regular Rate and Rhythm Respiratory: Yes: CTA Bilaterally, Accessory Muscle Use, Mechanically Ventilated , Tachypnea Labs: CBC, BMP 09/09/17 09:30 09/09/17 09:30 Hospitalist Encounter Assessment: Acute on chronic hypoxic respiratory failure - Likely 2/2 mucus plug, cannot r/o PE - Regained consciousness after suction - Stat EKG, CXR, fluid, ABG - Prep for CTA with benadryl and predisone (see orders) - Cont. to monitor respiratory status Visit type - Emergency Visit Emergency Visit: No - New Patient This patient is new to me today: Yes Date on this admission: 09/09/17 - Critical Care Critical Care patient: No
[2017-09-09] MEDS ORDERED: predniSONE 20 MG TABLET (UD) PO ONE (22:50)
[2017-09-09 23:18] LABS: ARTERIAL BLOOD GAS BASE EXCESS -0.9 meq/l (-2-2); ARTERIAL BLOOD GAS HCO3 23.4 meq/L (22-26); ARTERIAL BLOOD GAS pH 7.39 (7.35-7.45)
[2017-09-09 23:19] LABS: ALLENS TEST POSITIVE; ART PUNCT SITE RIGHT BRACHIAL; LPM/O2% 100%; PT. ON O2? YES; TYPE OF O2 VENT
[2017-09-09 23:20] LABS: MECH. VENT. YES; VENT RATE 12; VT/PRESS 400
[2017-09-09 23:22] LABS: ARTERIAL BLD GAS O2 SATURATION 99.8 % (90-98.9)
[2017-09-10] MEDS ORDERED: predniSONE 20 MG TABLET (UD) PO ONE ×2 (05:00→11:00)
[2017-09-10] MEDS: LEVOTHYROXINE NA 88 MCG TABLET (FP) PO SCH (06:07)
[2017-09-10] MEDS: ALBUTEROL SO4 2.5/IPRATROPIUM 0.5 INH SOL 3 ML VIAL.NEB. NEB SCH ×4 (06:40→23:49)
--- NOTE | 2017-09-10 08:40 | PN ---
Progress Note, Physician History of Present Illness: EVENTS NOTED HAD A SUDDEN RESPIRATORY ARREST THEN GAINED CONSCIOUSNESS THIS AM PT AWAKE AND CAN NOT RECALL EVENTS - Current Medication List Current Medications: Active Medications Acetaminophen (Tylenol -) 650 mg PO Q6H PRN PRN Reason: FEVER OR PAIN Last Admin: 09/09/17 20:05 Dose: 650 mg Albuterol/Ipratropium (Duoneb -) 1 amp NEB QIDR [facility] Last Admin: 09/10/17 06:40 Dose: 1 amp Apixaban (Eliquis -) 5 mg PO BID [facility] Last Admin: 09/08/17 10:39 Dose: 5 mg Digoxin (Lanoxin -) 0.125 mg PO DAILY [facility] Last Admin: 09/09/17 10:50 Dose: 0.125 mg Diltiazem HCl (Cardizem Cd -) 240 mg PO DAILY [facility] Diphenhydramine HCl (Benadryl -) 50 mg PO ONCE ONE Stop: 09/10/17 11:01 Heparin Sodium (Porcine) (Heparin -) 5,000 unit SQ BID [facility] Last Admin: 09/09/17 21:51 Dose: 5,000 unit IV Flush (Picc Line Flush) 8 ml IVPUSH PRN PRN PRN Reason: Protocol Lactobacillus Acidophilus (Bacid -) 1 tab PO DAILY [facility] Last Admin: 09/09/17 10:49 Dose: 1 tab Levothyroxine Sodium (Synthroid -) 88 mcg PO DAILY@0700 [facility] Last Admin: 09/10/17 06:07 Dose: 88 mcg Magnesium Oxide (Mag-Ox -) 800 mg PO BID [facility] Last Admin: 09/09/17 21:51 Dose: 800 mg Nystatin (Nystop Powder -) 1 applic TP DAILY [facility] Last Admin: 09/09/17 10:27 Dose: 1 applic Ondansetron HCl (Zofran Odt -) 4 mg SL Q6H PRN PRN Reason: NAUSEA Last Admin: 09/04/17 15:40 Dose: 4 mg Potassium Chloride (Potassium Chloride Oral Liquid) 40 meq PO DAILY [facility] Last Admin: 09/09/17 10:54 Dose: 40 meq Tamsulosin HCl (Flomax -) 0.4 mg PO DAILY@1730 [facility] Last Admin: 09/09/17 17:27 Dose: 0.4 mg - Objective Vital Signs: Vital Signs Temperature 97.7 F 09/10/17 03:00 Pulse Rate 133 H 09/10/17 03:00 Respiratory Rate 20 09/10/17 06:40 Blood Pressure 95/57 09/10/17 03:00 O2 Sat by Pulse Oximetry (%) 99 09/09/17 21:00 Cardiovascular: Yes: S1, S2 Respiratory: Yes: Mechanically Ventilated Gastrointestinal: Yes: Normal Bowel Sounds, Soft Labs: CBC, BMP 09/09/17 09:30 09/09/17 09:30 INR, PTT INR 1.96 (0.82-1.09) H 09/09/17 09:30 Assessment/Plan - Problems (1) Fever Assessment/Plan: -febrile last night -tylenol for fever over 100.0F Code(s): R50.9 - FEVER, UNSPECIFIED Qualifiers: Fever type: unspecified Qualified Code(s): R50.9 - Fever, unspecified; R50.9 - Fever, unspecified (2) Sacral decubitus ulcer, stage II Assessment/Plan: -seen by Vascular -offloading to the area -santyl -wound culture shows MRSA and VRE Code(s): L89.152 - PRESSURE ULCER OF SACRAL REGION, STAGE 2 (3) Systemic inflammatory response syndrome (SIRS) Assessment/Plan: -seen by ID -Tylenol for fever over 100.0F Code(s): R65.10 - SIRS OF NON-INFECTIOUS ORIGIN W/O ACUTE ORGAN DYSFUNCTION (4) A-fib Assessment/Plan: -Chronic -uncontrolled 2/2 to sepsis and fever -Eliquis on hold -on heparin SQ BID -uncontrolled at this time, ordered digoxin Code(s): I48.91 - UNSPECIFIED ATRIAL FIBRILLATION Qualifiers: Atrial fibrillation type: paroxysmal Qualified Code(s): I48.0 - Paroxysmal atrial fibrillation; I48.0 - Paroxysmal atrial fibrillation; I48.0 - Paroxysmal atrial fibrillation; I48.0 - Paroxysmal atrial fibrillation (5) Acute and chronic respiratory failure with hypoxia Assessment/Plan: -on mechanical vent -poor prognosis knowing the existence of possible malignant neoplasm Code(s): J96.21 - ACUTE AND CHRONIC RESPIRATORY FAILURE WITH HYPOXIA (6) Sepsis Assessment/Plan: -on admission -BP okay -seen by ID -overall poor prognosis Code(s): A41.9 - SEPSIS, UNSPECIFIED ORGANISM Qualifiers: Sepsis type: sepsis due to unspecified organism Qualified Code(s): A41.9 - Sepsis, unspecified organism; A41.9 - Sepsis, unspecified organism; A41.9 - Sepsis, unspecified organism (7) Neoplasm of mediastinum Assessment/Plan: -wants biopsy -IR consult for biopsy -Oncology consult Code(s): D49.89 - NEOPLASM OF UNSPECIFIED BEHAVIOR OF OTHER SPECIFIED SITES (8) Acute on chronic hypoxic respiratory failure - Likely 2/2 mucus plug, cannot r/o PE - Regained consciousness after suction - EKG, CXR, fluid, ABG - Cont. to monitor respiratory status
[2017-09-10 09:04] LABS: ARTERIAL BLD GAS O2 SATURATION 96.8 % (90-98.9); ARTERIAL BLOOD GAS BASE EXCESS -2.7 meq/l (-2-2); ARTERIAL BLOOD GAS HCO3 20.7 meq/L (22-26); ARTERIAL BLOOD GAS PO2 92.3 mmHg (80-100); ARTERIAL BLOOD GAS pH 7.41 (7.35-7.45)
[2017-09-10 09:06] LABS: ALLENS TEST POSITIVE; ART PUNCT SITE RIGHT BRACHIAL
[2017-09-10 09:07] LABS: LPM/O2% 40%; MECH. VENT. Y; PT. ON O2? YES; TYPE OF O2 VENT
[2017-09-10 09:08] LABS: VENT RATE 12; VT/PRESS 400
[2017-09-10] MEDS: DIGOXIN 0.125 MG TABLET (FP) PO SCH (10:02)
[2017-09-10] MEDS: LACTOBACILLUS ACIDOPHILUS 1 EACH TAB (FP) PO SCH (10:02)
[2017-09-10] MEDS: HEPARIN NA (PORCINE) 5,000 UNITS/ML 1ML VIAL SQ SCH (10:02)
[2017-09-10] MEDS: MAGNESIUM OXIDE 400 MG TABLET (FP) PO SCH ×2 (10:02→22:53)
[2017-09-10] MEDS: POTASSIUM CHLORIDE ORAL LIQUID 20 MEQ/15 ML PO SCH ×2 (10:04→14:07)
[2017-09-10] MEDS: NYSTATIN POWDER 100,000 UNITS/GM - 15 GM TOPICAL POWDER TP SCH (10:20)
[2017-09-10] MEDS ORDERED: diphenhydrAMINE HCL 25 MG CAPSULE (FP) PO ONE (11:00)
[2017-09-10 12:06] LABS: BASOPHIL 0.1 % (0-2.0); MCH 28.4 pg (25.7-33.7); MCHC 31.9 g/dl (32.0-36.0); MEAN PLT VOLUME 8.7 fl (7.5-11.1); PLATELET COUNT 486 K/MM3 (134-434); WHITE BLOOD COUNT 14.5 K/mm3 (4.0-10.0)
[2017-09-10 12:25] LABS: INR 2.33 (0.82-1.09); PROTHROMBIN TIME (PATIENT) 26.3 SEC (9.98-11.88)
[2017-09-10 12:28] LABS: ACTIVATED PTT 47.9 SECONDS (26.9-34.4)
[2017-09-10] MEDS: APIXABAN 5 MG TABLET PO SCH (12:28)
[2017-09-10 12:30] LABS: ALBUMIN 2.3 g/dl (3.4-5.0); ANION GAP 12 (8-16); BILIRUBIN,TOTAL 0.4 mg/dL (0.2-1.0); CALCIUM 7.5 mg/dL (8.5-10.1); CO2 23 mmol/L (21-32); CREATININE 0.8 mg/dL (0.55-1.02); GLUCOSE,RANDOM 172 mg/dL (74-106); SGOT/AST 22 U/L (15-37); SGPT/ALT 8 U/L (12-78); TOT PROT 5.9 g/dl (6.4-8.2)
[2017-09-10 12:31] LABS: ANION GAP 13 (8-16); CALCIUM 7.6 mg/dL (8.5-10.1); CO2 23 mmol/L (21-32); CREATININE 0.8 mg/dL (0.55-1.02); GLUCOSE,RANDOM 174 mg/dL (74-106); LDH 225 U/L (84-246); PHOSPHOROUS 5.5 mg/dL (2.5-4.9)
[2017-09-10 12:44] LABS: ALK PHOS 111 U/L (45-117); CPK 33 IU/L (26-192); DIGOXIN LEVEL 0.9684 ng/ml (0.8-2.0); TROPONIN I 0.03 ng/ml (0.00-0.05)
--- NOTE | 2017-09-10 13:16 | PN ---
Progress Note (short form) - Note Progress Note: seen and examined, chart reviewed in detail. Constitutional: Yes: No Distress, Calm, Other (On vent vai ET tube) Eyes: Yes: Conjunctiva Clear HENT: Yes: Atraumatic Neck: Yes: Supple Cardiovascular: Yes: Regular Rate and Rhythm Respiratory: Yes: Regular, Other (Course BS) Gastrointestinal: Yes: Normal Bowel Sounds, Soft. No: Tenderness Last Vital Signs Temp Pulse Resp BP Pulse Ox 97.7 F 112 H 16 80/44 97 09/10/17 03:00 09/10/17 12:00 09/10/17 12:00 09/10/17 12:00 09/10/17 11:31 09/10/17 11:30 09/10/17 11:30 Current Medications Generic Name Dose Route Start Last Admin Trade Name Freq PRN Reason Stop Dose Admin Acetaminophen 650 mg 08/27/17 17:36 09/09/17 20:05 Tylenol - PO 650 mg Q6H PRN Administration FEVER OR PAIN Albuterol/Ipratropium 1 amp 08/24/17 18:00 09/10/17 11:32 Duoneb - NEB 1 amp QIDR [facility] Administration Apixaban 5 mg 08/19/17 15:30 09/10/17 12:28 Eliquis - PO Not Given BID [facility] Digoxin 0.125 mg 09/08/17 15:30 09/10/17 10:02 Lanoxin - PO 0.125 mg DAILY [facility] Administration Diltiazem HCl 240 mg 09/10/17 10:00 Cardizem Cd - PO DAILY [facility] Heparin Sodium (Porcine) 5,000 unit 09/09/17 22:00 09/10/17 10:02 Heparin - SQ 5,000 unit BID [facility] Administration Heparin Sodium (Porcine) 1,000 unit 09/10/17 12:55 Heparin - IVPUSH PRN PRN Heparin Heparin Sodium (Porcine) 5,000 unit 09/10/17 12:55 Heparin - IVPUSH PRN PRN Heparin IV Flush 8 ml 08/30/17 11:52 Picc Line Flush IVPUSH PRN PRN Protocol Heparin Sodium (Porcine) 25, 500 mls @ 16 mls/hr 09/10/17 13:00 000 unit/ Sodium Chloride IV TITR [facility] Protocol 800 UNIT/HR Sodium Chloride 1,000 mls @ 83 mls/hr 09/10/17 13:00 Normal Saline - IV ASDIR [facility] Lactobacillus Acidophilus 1 tab 08/13/17 10:00 09/10/17 10:02 Bacid - PO 1 tab DAILY [facility] Administration Levothyroxine Sodium 88 mcg 08/30/17 07:00 09/10/17 06:07 Synthroid - PO 88 mcg DAILY@0700 [facility] Administration Magnesium Oxide 800 mg 09/07/17 17:05 09/10/17 10:02 Mag-Ox - PO 800 mg BID [facility] Administration Nystatin 1 applic 08/16/17 14:00 09/10/17 10:20 Nystop Powder - TP 1 applic DAILY [facility] Administration Ondansetron HCl 4 mg 09/04/17 15:12 09/04/17 15:40 Zofran Odt - SL 4 mg Q6H PRN Administration NAUSEA Potassium Chloride 40 meq 09/04/17 10:00 09/10/17 10:04 Potassium Chloride Oral Liquid PO 40 meq DAILY [facility] Administration Tamsulosin HCl 0.4 mg 08/23/17 17:30 09/09/17 17:27 Flomax - PO 0.4 mg DAILY@1730 [facility] Administration 67 year old woman with PMhx of Chronic Respiratory failure on vent, COPD, Anemia , Afib, Hypothyrodism who presented from the [place] with fever and anemia .Also c.diff/UTI CT chest showed 5cm sup. mediastinal mass encroaching SVC and destroying the sternum---? lung vs lymphoma vs thymoma. events noted. for biopsy, confirmed again with pt today off eliquis transfuse prn elevated inr in the setting of poor po intake, give vit k d/wRN
--- NOTE | 2017-09-10 13:49 | PN ---
Progress Note, Physician History of Present Illness: pulmonary events from last night noted s/p code 99 responded to acls protocol , suctioning. pt currently alert ,nad on vent support ac mode - Current Medication List Current Medications: Active Medications Acetaminophen (Tylenol -) 650 mg PO Q6H PRN PRN Reason: FEVER OR PAIN Last Admin: 09/09/17 20:05 Dose: 650 mg Albuterol/Ipratropium (Duoneb -) 1 amp NEB QIDR [facility] Last Admin: 09/10/17 11:32 Dose: 1 amp Digoxin (Lanoxin -) 0.125 mg PO DAILY [facility] Last Admin: 09/10/17 10:02 Dose: 0.125 mg Diltiazem HCl (Cardizem Cd -) 240 mg PO DAILY [facility] Heparin Sodium (Porcine) (Heparin -) 1,000 unit IVPUSH PRN PRN PRN Reason: Heparin Heparin Sodium (Porcine) (Heparin -) 5,000 unit IVPUSH PRN PRN PRN Reason: Heparin IV Flush (Picc Line Flush) 8 ml IVPUSH PRN PRN PRN Reason: Protocol Heparin Sodium (Porcine) 25, (000 unit/ Sodium Chloride) 500 mls @ 16 mls/hr IV TITR [facility]; 800 UNIT/HR PRN Reason: Protocol Sodium Chloride (Normal Saline -) 1,000 mls @ 83 mls/hr IV [facility]IR [facility] Lactobacillus Acidophilus (Bacid -) 1 tab PO DAILY [facility] Last Admin: 09/10/17 10:02 Dose: 1 tab Levothyroxine Sodium (Synthroid -) 88 mcg PO DAILY@0700 [facility] Last Admin: 09/10/17 06:07 Dose: 88 mcg Magnesium Oxide (Mag-Ox -) 800 mg PO BID [facility] Last Admin: 09/10/17 10:02 Dose: 800 mg Nystatin (Nystop Powder -) 1 applic TP DAILY [facility] Last Admin: 09/10/17 10:20 Dose: 1 applic Ondansetron HCl (Zofran Odt -) 4 mg SL Q6H PRN PRN Reason: NAUSEA Last Admin: 09/04/17 15:40 Dose: 4 mg Potassium Chloride (Potassium Chloride Oral Liquid) 40 meq PO DAILY [facility] Last Admin: 09/10/17 10:04 Dose: 40 meq Tamsulosin HCl (Flomax -) 0.4 mg PO DAILY@1730 [facility] Last Admin: 09/09/17 17:27 Dose: 0.4 mg - Objective Vital Signs: Vital Signs Temperature 97.7 F 09/10/17 03:00 Pulse Rate 112 H 09/10/17 12:00 Respiratory Rate 16 09/10/17 12:00 Blood Pressure 80/44 09/10/17 12:00 O2 Sat by Pulse Oximetry (%) 97 09/10/17 11:31 Constitutional: Yes: Calm, Cachectic Eyes: Yes: WNL HENT: Yes: WNL Neck: Yes: Supple (trach) Cardiovascular: Yes: Tachycardia, Pulse Irregular, S1, S2 Respiratory: Yes: Diminished Gastrointestinal: Yes: Normal Bowel Sounds, Soft Extremities: Yes: WNL Edema: No Labs: CBC, BMP 09/10/17 11:30 09/10/17 11:30 INR, PTT INR 2.33 (0.82-1.09) H 09/10/17 11:30 Fibrinogen 532.0 mg/dL (238-498) H 09/10/17 11:30 Problem List - Problems (1) Fever Code(s): R50.9 - FEVER, UNSPECIFIED Qualifiers: Fever type: unspecified Qualified Code(s): R50.9 - Fever, unspecified; R50.9 - Fever, unspecified (2) Hematuria Code(s): R31.9 - HEMATURIA, UNSPECIFIED Qualifiers: Hematuria type: unspecified type Qualified Code(s): R31.9 - Hematuria, unspecified; R31.9 - Hematuria, unspecified (3) Sacral decubitus ulcer, stage II Code(s): L89.152 - PRESSURE ULCER OF SACRAL REGION, STAGE 2 (4) A-fib Code(s): I48.91 - UNSPECIFIED ATRIAL FIBRILLATION Qualifiers: Atrial fibrillation type: paroxysmal Qualified Code(s): I48.0 - Paroxysmal atrial fibrillation; I48.0 - Paroxysmal atrial fibrillation; I48.0 - Paroxysmal atrial fibrillation; I48.0 - Paroxysmal atrial fibrillation (5) Acute on chronic respiratory failure with hypoxia and hypercapnia Code(s): J96.21 - ACUTE AND CHRONIC RESPIRATORY FAILURE WITH HYPOXIA J96.22 - ACUTE AND CHRONIC RESPIRATORY FAILURE WITH HYPERCAPNIA (6) Anemia Code(s): D64.9 - ANEMIA, UNSPECIFIED Qualifiers: Anemia type: unspecified type Qualified Code(s): D64.9 - Anemia, unspecified; D64.9 - Anemia, unspecified (7) COPD (chronic obstructive pulmonary disease) Code(s): J44.9 - CHRONIC OBSTRUCTIVE PULMONARY DISEASE, UNSPECIFIED Qualifiers : COPD type: unspecified COPD Qualified Code(s): J44.9 - Chronic obstructive pulmonary disease, unspecified; J44.9 - Chronic obstructive pulmonary disease, unspecified; J44.9 - Chronic obstructive pulmonary disease, unspecified; J44.9 - Chronic obstructive pulmonary disease, unspecified (8) Chest pain Code(s): R07.9 - CHEST PAIN, UNSPECIFIED Qualifiers: Chest pain type: pleurodynia Qualified Code(s): R07.81 - Pleurodynia ; R07.81 - Pleurodynia (9) Diastolic heart failure Code(s): I50.30 - UNSPECIFIED DIASTOLIC (CONGESTIVE) HEART FAILURE Qualifiers : Heart failure chronicity: chronic Qualified Code(s): I50.32 - Chronic diastolic (congestive) heart failure; I50.32 - Chronic diastolic ( congestive) heart failure; I50.32 - Chronic diastolic (congestive) heart failure ; I50.32 - Chronic diastolic (congestive) heart failure (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 Assessment/Plan IMP ACUTE ON CHRONIC HYPOXEMIC/HYPERCAPNEIC RESPIRATORY FAILURE INVASIVE ANT MEDIASTINAL MASS S/P CARDIAC ARREST ?MUCOUS PLUG FEVER ANEMIA COPD AFIB HEMATURIA DIASTOLIC HF HYPERKALEMIA HYPOTENSION PLAN VENT SUPPORT ON AC MODE INHALED BRONCHODILATORS MONITOR H+H PASSY RENEA VALVE TOLERATED AC CHEST X-RAY [facility] Problem List - Problems (1) Fever Code(s): R50.9 - FEVER, UNSPECIFIED Qualifiers: Fever type: unspecified Qualified Code(s): R50.9 - Fever, unspecified; R50.9 - Fever, unspecified (2) Hematuria Code(s): R31.9 - HEMATURIA, UNSPECIFIED Qualifiers: Hematuria type: unspecified type Qualified Code(s): R31.9 - Hematuria, unspecified; R31.9 - Hematuria, unspecified (3) Sacral decubitus ulcer, stage II Code(s): L89.152 - PRESSURE ULCER OF SACRAL REGION, STAGE 2 (4) A-fib Code(s): I48.91 - UNSPECIFIED ATRIAL FIBRILLATION Qualifiers: (5) Acute on chronic respiratory failure with hypoxia and hypercapnia Code(s): J96.21 - ACUTE AND CHRONIC RESPIRATORY FAILURE WITH HYPOXIA J96.22 - ACUTE AND CHRONIC RESPIRATORY FAILURE WITH HYPERCAPNIA (6) Anemia Code(s): D64.9 - ANEMIA, UNSPECIFIED Qualifiers: Anemia type: unspecified type Qualified Code(s): D64.9 - Anemia, unspecified; D64.9 - Anemia, unspecified (7) COPD (chronic obstructive pulmonary disease) Code(s): J44.9 - CHRONIC OBSTRUCTIVE PULMONARY DISEASE, UNSPECIFIED Qualifiers : COPD type: unspecified COPD Qualified Code(s): J44.9 - Chronic obstructive pulmonary disease, unspecified; J44.9 - Chronic obstructive pulmonary disease, unspecified; J44.9 - Chronic obstructive pulmonary disease, unspecified; J44.9 - Chronic obstructive pulmonary disease, unspecified (8) Chest pain Code(s): R07.9 - CHEST PAIN, UNSPECIFIED Qualifiers: Chest pain type: pleurodynia Qualified Code(s): R07.81 - Pleurodynia ; R07.81 - Pleurodynia (9) Diastolic heart failure Code(s): I50.30 - UNSPECIFIED DIASTOLIC (CONGESTIVE) HEART FAILURE Qualifiers : Heart failure chronicity: chronic Qualified Code(s): I50.32 - Chronic diastolic (congestive) heart failure; I50.32 - Chronic diastolic ( congestive) heart failure; I50.32 - Chronic diastolic (congestive) heart failure ; I50.32 - Chronic diastolic (congestive) heart failure (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
[2017-09-10] MEDS ORDERED: SODIUM POLYSTYRENE SULFONATE 15 GM/60 ML BOTTLE PO ONE (14:15)
--- NOTE | 2017-09-10 14:28 | PN ---
Progress Note, Physician Chief Complaint: Events noted Remains on mechanical ventilation via trache intermittent rapid ventricular response. ECG suggests MAT History of Present Illness: Patient was seen and examined. Awake and arousable. Chart was reviewed Denies chest pain or palpitations Intermittently hypotensive. Tachycardia - Current Medication List Current Medications: Active Medications Acetaminophen (Tylenol -) 650 mg PO Q6H PRN PRN Reason: FEVER OR PAIN Last Admin: 09/09/17 20:05 Dose: 650 mg Albuterol/Ipratropium (Duoneb -) 1 amp NEB QIDR [facility] Last Admin: 09/10/17 11:32 Dose: 1 amp Digoxin (Lanoxin -) 0.125 mg PO DAILY [facility] Last Admin: 09/10/17 10:02 Dose: 0.125 mg Diltiazem HCl (Cardizem Cd -) 240 mg PO DAILY [facility] Last Admin: 09/10/17 14:04 Dose: Not Given Heparin Sodium (Porcine) (Heparin -) 1,000 unit IVPUSH PRN PRN PRN Reason: Heparin Heparin Sodium (Porcine) (Heparin -) 5,000 unit IVPUSH PRN PRN PRN Reason: Heparin IV Flush (Picc Line Flush) 8 ml IVPUSH PRN PRN PRN Reason: Protocol Heparin Sodium (Porcine) 25, (000 unit/ Sodium Chloride) 500 mls @ 16 mls/hr IV TITR [facility]; 800 UNIT/HR PRN Reason: Protocol Sodium Chloride (Normal Saline -) 1,000 mls @ 83 mls/hr IV ASDIR [facility] Lactobacillus Acidophilus (Bacid -) 1 tab PO DAILY [facility] Last Admin: 09/10/17 10:02 Dose: 1 tab Levothyroxine Sodium (Synthroid -) 88 mcg PO DAILY@0700 [facility] Last Admin: 09/10/17 06:07 Dose: 88 mcg Magnesium Oxide (Mag-Ox -) 800 mg PO BID [facility] Last Admin: 09/10/17 10:02 Dose: 800 mg Nystatin (Nystop Powder -) 1 applic TP DAILY [facility] Last Admin: 09/10/17 10:20 Dose: 1 applic Ondansetron HCl (Zofran Odt -) 4 mg SL Q6H PRN PRN Reason: NAUSEA Last Admin: 09/04/17 15:40 Dose: 4 mg Tamsulosin HCl (Flomax -) 0.4 mg PO DAILY@1730 [facility] Last Admin: 09/09/17 17:27 Dose: 0.4 mg - Objective Vital Signs: Vital Signs Temperature 97.7 F 09/10/17 03:00 Pulse Rate 112 H 09/10/17 12:00 Respiratory Rate 16 09/10/17 12:00 Blood Pressure 80/44 09/10/17 12:00 O2 Sat by Pulse Oximetry (%) 97 09/10/17 11:31 Cardiovascular: Yes: Tachycardia, Pulse Irregular, S1, S2 Respiratory: Yes: Mechanically Ventilated, Rhonchi Gastrointestinal: Yes: Normal Bowel Sounds, Soft. No: Tenderness Edema: No Labs: CBC, BMP 09/10/17 11:30 09/10/17 11:30 INR, PTT INR 2.33 (0.82-1.09) H 09/10/17 11:30 Fibrinogen 532.0 mg/dL (238-498) H 09/10/17 11:30 - ....Imaging Chest X-ray: Report Reviewed Problem List - Problems (1) A-fib Code(s): I48.91 - UNSPECIFIED ATRIAL FIBRILLATION Qualifiers: Atrial fibrillation type: paroxysmal Qualified Code(s): I48.0 - Paroxysmal atrial fibrillation; I48.0 - Paroxysmal atrial fibrillation; I48.0 - Paroxysmal atrial fibrillation; I48.0 - Paroxysmal atrial fibrillation (2) Acute and chronic respiratory failure with hypoxia Code(s): J96.21 - ACUTE AND CHRONIC RESPIRATORY FAILURE WITH HYPOXIA (3) Acute on chronic respiratory failure with hypoxia and hypercapnia Code(s): J96.21 - ACUTE AND CHRONIC RESPIRATORY FAILURE WITH HYPOXIA J96.22 - ACUTE AND CHRONIC RESPIRATORY FAILURE WITH HYPERCAPNIA (4) Anemia Code(s): D64.9 - ANEMIA, UNSPECIFIED Qualifiers: Anemia type: unspecified type Qualified Code(s): D64.9 - Anemia, unspecified; D64.9 - Anemia, unspecified (5) COPD (chronic obstructive pulmonary disease) Code(s): J44.9 - CHRONIC OBSTRUCTIVE PULMONARY DISEASE, UNSPECIFIED Qualifiers : COPD type: unspecified COPD Qualified Code(s): J44.9 - Chronic obstructive pulmonary disease, unspecified; J44.9 - Chronic obstructive pulmonary disease, unspecified; J44.9 - Chronic obstructive pulmonary disease, unspecified; J44.9 - Chronic obstructive pulmonary disease, unspecified (6) Diastolic heart failure Code(s): I50.30 - UNSPECIFIED DIASTOLIC (CONGESTIVE) HEART FAILURE Qualifiers : Heart failure chronicity: chronic Qualified Code(s): I50.32 - Chronic diastolic (congestive) heart failure; I50.32 - Chronic diastolic ( congestive) heart failure; I50.32 - Chronic diastolic (congestive) heart failure ; I50.32 - Chronic diastolic (congestive) heart failure (7) Hypothyroid Code(s): E03.9 - HYPOTHYROIDISM, UNSPECIFIED Qualifiers: Hypothyroidism type: unspecified Qualified Code(s): E03.9 - Hypothyroidism, unspecified; E03.9 - Hypothyroidism, unspecified; E03.9 - Hypothyroidism, unspecified (8) Pneumonia Code(s): J18.9 - PNEUMONIA, UNSPECIFIED ORGANISM Qualifiers: Pneumonia type: due to unspecified organism Laterality: left Lung location: lower lobe of lung Qualified Code(s): J18.1 - Lobar pneumonia, unspecified organism; J18.1 - Lobar pneumonia, unspecified organism; J18.1 - Lobar pneumonia, unspecified organism (9) Tracheostomy dependence Code(s): Z93.0 - TRACHEOSTOMY STATUS Assessment/Plan 1. 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 COPD with acute on chronic hypoxic/hypercapneic respiratory failure post tracheostomy 3. Diastolic LV dysfunction with class I NYHA classification LV congestive heart failure, compensated/euvolemic 4. Paroxysmal Atrial Fibrillation/multifocal atrial tachycardia on NOAC ( [id number] score of 4) 5. HTN 6. Hypothyroidism 7. History of C. Difficile Colitis 8. History of MARLYN, resolved 9. 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 Inhaled bronchodilators, O2, GI prophylaxis and continue ventilation support 2. Continue Cardizem CD 240 qd as tolerated. Monitor blood pressure. 3. Eliquis has been held 4. Transfuse PRBC as needed 5. Further input regarding mediastinal mass Further plans are to follow Bert Ivan MD
[2017-09-10] MEDS ORDERED: HEPARIN NA (PORCINE) 5,000 UNITS/ML 1ML VIAL IVPUSH PRN ×2 (15:00)
[2017-09-10] MEDS: HEPARIN - 25,000 UNIT in SODIUM CHLORIDE 495 ML IV SCH (17:31)
[2017-09-10] MEDS: TAMSULOSIN HCL 0.4 MG CAP.ER.24H (FP) PO SCH (17:32)
[2017-09-10] MEDS: SODIUM CHLORIDE 1,000 ML IV SCH (18:12)
[2017-09-11] MEDS ORDERED: PHYTONADIONE 10 MG/1 ML AMP SQ ONE ×3 (01:18→13:45)
[2017-09-11] MEDS: ALBUTEROL SO4 2.5/IPRATROPIUM 0.5 INH SOL 3 ML VIAL.NEB. NEB SCH ×4 (06:46→23:16)
[2017-09-11] MEDS: LEVOTHYROXINE NA 88 MCG TABLET (FP) PO SCH (06:58)
[2017-09-11 07:47] LABS: BASOPHIL 0.5 % (0-2.0); MCH 28.8 pg (25.7-33.7); MCHC 32.7 g/dl (32.0-36.0); MEAN PLT VOLUME 8.8 fl (7.5-11.1); NEUTROPHILS 88.2 % (42.8-82.8); PLATELET COUNT 497 K/MM3 (134-434); RDW 17.3 % (11.6-15.6); WHITE BLOOD COUNT 14.3 K/mm3 (4.0-10.0)
[2017-09-11 08:33] LABS: ALBUMIN 2.4 g/dl (3.4-5.0); ALK PHOS 97 U/L (45-117); ANION GAP 15 (8-16); BILIRUBIN,TOTAL 0.7 mg/dL (0.2-1.0); CALCIUM 7.4 mg/dL (8.5-10.1); CO2 20 mmol/L (21-32); CREATININE 0.9 mg/dL (0.55-1.02); GLUCOSE,RANDOM 152 mg/dL (74-106); SGOT/AST 45 U/L (15-37); SGPT/ALT 9 U/L (12-78); TOT PROT 5.7 g/dl (6.4-8.2)
[2017-09-11] MEDS: MAGNESIUM OXIDE 400 MG TABLET (FP) PO SCH ×2 (10:12→21:32)
[2017-09-11] MEDS: LACTOBACILLUS ACIDOPHILUS 1 EACH TAB (FP) PO SCH (10:12)
[2017-09-11] MEDS: DIGOXIN 0.125 MG TABLET (FP) PO SCH (10:14)
[2017-09-11] MEDS: HEPARIN - 25,000 UNIT in SODIUM CHLORIDE 495 ML IV SCH (10:40)
[2017-09-11] MEDS: NYSTATIN POWDER 100,000 UNITS/GM - 15 GM TOPICAL POWDER TP SCH (10:41)
--- NOTE | 2017-09-11 10:52 | PN ---
Progress Note (short form) - Note Progress Note: Renal follow up for Hyponatremia Pt seen and examined at the bedside awake and alert on vent via trach chart reviewed, events noted including code 99 pt without any acute complaints at this time Vital Signs Temperature 97.7 F 09/11/17 06:00 Pulse Rate 126 H 09/11/17 10:29 Respiratory Rate 22 09/11/17 10:29 Blood Pressure 99/65 09/11/17 06:00 O2 Sat by Pulse Oximetry (%) 98 09/11/17 10:30 Intake & Output 09/08/17 09/09/17 09/10/17 09/11/17 23:59 23:59 23:59 22:59 Intake Total 1280 885 836 Balance 1280 885 836 Weight 88 lb 12.8 oz NAD, awake and alert on Vent via trach RRR Course BS soft NT/ND Abd No Le edema CBC, BMP 09/11/17 06:35 09/11/17 06:35 Current Medications Acetaminophen (Tylenol -) 650 mg PO Q6H PRN PRN Reason: FEVER OR PAIN Last Admin: 09/09/17 20:05 Dose: 650 mg Albuterol/Ipratropium (Duoneb -) 1 amp NEB QIDR [facility] Last Admin: 09/11/17 06:46 Dose: 1 amp Digoxin (Lanoxin -) 0.125 mg PO DAILY [facility] Last Admin: 09/11/17 10:14 Dose: 0.125 mg Diltiazem HCl (Cardizem Cd -) 240 mg PO DAILY [facility] Heparin Sodium (Porcine) (Heparin -) 1,000 unit IVPUSH PRN PRN PRN Reason: Heparin Heparin Sodium (Porcine) (Heparin -) 5,000 unit IVPUSH PRN PRN PRN Reason: Heparin IV Flush (Picc Line Flush) 8 ml IVPUSH PRN PRN PRN Reason: Protocol Heparin Sodium (Porcine) 25, (000 unit/ Sodium Chloride) 500 mls @ 16 mls/hr IV TITR [facility]; 800 UNIT/HR PRN Reason: Protocol Last Admin: 09/11/17 10:40 Dose: 12 mls/hr Sodium Chloride (Normal Saline -) 1,000 mls @ 83 mls/hr IV ASDIR [facility] Last Admin: 09/10/17 18:12 Dose: 83 mls/hr Lactobacillus Acidophilus (Bacid -) 1 tab PO DAILY [facility] Last Admin: 09/11/17 10:12 Dose: 1 tab Levothyroxine Sodium (Synthroid -) 88 mcg PO DAILY@0700 [facility] Last Admin: 09/11/17 06:58 Dose: 88 mcg Magnesium Oxide (Mag-Ox -) 800 mg PO BID [facility] Last Admin: 09/11/17 10:12 Dose: 800 mg Nystatin (Nystop Powder -) 1 applic TP DAILY [facility] Last Admin: 09/11/17 10:41 Dose: 1 applic Ondansetron HCl (Zofran Odt -) 4 mg SL Q6H PRN PRN Reason: NAUSEA Last Admin: 09/04/17 15:40 Dose: 4 mg Tamsulosin HCl (Flomax -) 0.4 mg PO DAILY@1730 [facility] Last Admin: 09/10/17 17:32 Dose: 0.4 mg A/p 67 year old woman with PMhx of Chronic Respiratory failure on vent, COPD, Anemia , Afib, Hypothyrodism who [place] the [place] with fever and anemia and with hyponatremia and hypokalemia. #Hyperkalemia now, improved ? etiology, possibly KCL supplements now off supplements, s/p Kayexalate yesterday trend K, Mg daily on IVF for now, can d/c if no other indication apart from hyperkalemia #Mediastinal Mass for biopsy #Chronic Respiratory Failure continue Vent support Fernando Douglas DO Problem List - Problems (1) COPD (chronic obstructive pulmonary disease) Code(s): J44.9 - CHRONIC OBSTRUCTIVE PULMONARY DISEASE, UNSPECIFIED Qualifiers : COPD type: unspecified COPD Qualified Code(s): J44.9 - Chronic obstructive pulmonary disease, unspecified; J44.9 - Chronic obstructive pulmonary disease, unspecified; J44.9 - Chronic obstructive pulmonary disease, unspecified; J44.9 - Chronic obstructive pulmonary disease, unspecified (2) Respiratory failure Code(s): J96.90 - RESPIRATORY FAILURE, UNSP, UNSP W HYPOXIA OR HYPERCAPNIA Qualifiers: Chronicity: acute on chronic Respiratory failure complication: hypercapnia Qualified Code(s): J96.22 - Acute and chronic respiratory failure with hypercapnia; J96.22 - Acute and chronic respiratory failure with hypercapnia; J96.22 - Acute and chronic respiratory failure with hypercapnia (3) Hyponatremia Code(s): E87.1 - HYPO-OSMOLALITY AND HYPONATREMIA (4) Hypokalemia Code(s): E87.6 - HYPOKALEMIA
[2017-09-11] MEDS ORDERED: FUROSEMIDE 40 MG/4 ML INJECTABLE VIAL IVPUSH ONE (11:02)
--- NOTE | 2017-09-11 11:07 | PN ---
Progress Note, Physician History of Present Illness: EVENTS NOTED HAD A SUDDEN RESPIRATORY ARREST THEN GAINED CONSCIOUSNESS THIS AM PT AWAKE AND CAN NOT RECALL EVENTS - Current Medication List Current Medications: Active Medications Acetaminophen (Tylenol -) 650 mg PO Q6H PRN PRN Reason: FEVER OR PAIN Last Admin: 09/09/17 20:05 Dose: 650 mg Albuterol/Ipratropium (Duoneb -) 1 amp NEB QIDR [facility] Last Admin: 09/11/17 11:04 Dose: 1 amp Digoxin (Lanoxin -) 0.125 mg PO DAILY [facility] Last Admin: 09/11/17 10:14 Dose: 0.125 mg Diltiazem HCl (Cardizem Cd -) 240 mg PO DAILY [facility] Furosemide (Lasix Injection -) 40 mg IVPUSH ONCE ONE Stop: 09/11/17 11:03 Heparin Sodium (Porcine) (Heparin -) 1,000 unit IVPUSH PRN PRN PRN Reason: Heparin Heparin Sodium (Porcine) (Heparin -) 5,000 unit IVPUSH PRN PRN PRN Reason: Heparin IV Flush (Picc Line Flush) 8 ml IVPUSH PRN PRN PRN Reason: Protocol Heparin Sodium (Porcine) 25, (000 unit/ Sodium Chloride) 500 mls @ 16 mls/hr IV TITR [facility]; 800 UNIT/HR PRN Reason: Protocol Last Admin: 09/11/17 10:40 Dose: 12 mls/hr Sodium Chloride (Normal Saline -) 1,000 mls @ 83 mls/hr IV ASDIR [facility] Last Admin: 09/10/17 18:12 Dose: 83 mls/hr Lactobacillus Acidophilus (Bacid -) 1 tab PO DAILY [facility] Last Admin: 09/11/17 10:12 Dose: 1 tab Levothyroxine Sodium (Synthroid -) 88 mcg PO DAILY@0700 [facility] Last Admin: 09/11/17 06:58 Dose: 88 mcg Magnesium Oxide (Mag-Ox -) 800 mg PO BID [facility] Last Admin: 09/11/17 10:12 Dose: 800 mg Nystatin (Nystop Powder -) 1 applic TP DAILY [facility] Last Admin: 09/11/17 10:41 Dose: 1 applic Ondansetron HCl (Zofran Odt -) 4 mg SL Q6H PRN PRN Reason: NAUSEA Last Admin: 09/04/17 15:40 Dose: 4 mg Tamsulosin HCl (Flomax -) 0.4 mg PO DAILY@1730 [facility] Last Admin: 09/10/17 17:32 Dose: 0.4 mg - Objective Vital Signs: Vital Signs Temperature 97.7 F 09/11/17 06:00 Pulse Rate 126 H 09/11/17 10:29 Respiratory Rate 22 09/11/17 10:29 Blood Pressure 99/65 09/11/17 06:00 O2 Sat by Pulse Oximetry (%) 98 09/11/17 10:30 Cardiovascular: Yes: S1, S2 Respiratory: Yes: Mechanically Ventilated Gastrointestinal: Yes: Normal Bowel Sounds, Soft Labs: CBC, BMP 09/11/17 06:35 09/11/17 06:35 INR, PTT INR 2.33 (0.82-1.09) H 09/10/17 11:30 Fibrinogen 532.0 mg/dL (238-498) H 09/10/17 11:30 Assessment/Plan - Problems (1) Fever Assessment/Plan: -febrile last night -tylenol for fever over 100.0F Code(s): R50.9 - FEVER, UNSPECIFIED Qualifiers: Fever type: unspecified Qualified Code(s): R50.9 - Fever, unspecified; R50.9 - Fever, unspecified (2) Sacral decubitus ulcer, stage II Assessment/Plan: -seen by Vascular -offloading to the area -[facility] -wound culture shows MRSA and VRE Code(s): L89.152 - PRESSURE ULCER OF SACRAL REGION, STAGE 2 (3) Systemic inflammatory response syndrome (SIRS) Assessment/Plan: -seen by ID -Tylenol for fever over 100.0F Code(s): R65.10 - SIRS OF NON-INFECTIOUS ORIGIN W/O ACUTE ORGAN DYSFUNCTION (4) A-fib Assessment/Plan: -Chronic -uncontrolled 2/2 to sepsis and fever -Eliquis on hold -on heparin SQ BID -uncontrolled at this time, ordered digoxin Code(s): I48.91 - UNSPECIFIED ATRIAL FIBRILLATION Qualifiers: Atrial fibrillation type: paroxysmal Qualified Code(s): I48.0 - Paroxysmal atrial fibrillation; I48.0 - Paroxysmal atrial fibrillation; I48.0 - Paroxysmal atrial fibrillation; I48.0 - Paroxysmal atrial fibrillation (5) Acute and chronic respiratory failure with hypoxia Assessment/Plan: -on mechanical vent -poor prognosis knowing the existence of possible malignant neoplasm Code(s): J96.21 - ACUTE AND CHRONIC RESPIRATORY FAILURE WITH HYPOXIA (6) Sepsis Assessment/Plan: -on admission -BP okay -seen by ID -overall poor prognosis Code(s): A41.9 - SEPSIS, UNSPECIFIED ORGANISM Qualifiers: Sepsis type: sepsis due to unspecified organism Qualified Code(s): A41.9 - Sepsis, unspecified organism; A41.9 - Sepsis, unspecified organism; A41.9 - Sepsis, unspecified organism (7) Neoplasm of mediastinum Assessment/Plan: -wants biopsy -IR consult for biopsy -Oncology consult Code(s): D49.89 - NEOPLASM OF UNSPECIFIED BEHAVIOR OF OTHER SPECIFIED SITES (8) Acute on chronic hypoxic respiratory failure - Likely 2/2 mucus plug, cannot r/o PE - Regained consciousness after suction - EKG, CXR, fluid, ABG - Cont. to monitor respiratory status (8) ANEMIA - PRBC - MONITOR CBC
[2017-09-11 12:30] LABS: PROTHROMBIN TIME (PATIENT) 22.6 SEC (9.98-11.88)
[2017-09-11] MEDS ORDERED: FUROSEMIDE 40 MG/4 ML INJECTABLE VIAL IVPUSH SCH (12:45)
[2017-09-11] MEDS: SODIUM CHLORIDE 1,000 ML IV SCH (13:00)
--- NOTE | 2017-09-11 13:01 | PN ---
Progress Note, Physician History of Present Illness: PULMONARY ALERT,ON VENT SUPPORT,AC MODE ,-RESP DISTRESS - Current Medication List Current Medications: Active Medications Acetaminophen (Tylenol -) 650 mg PO Q6H PRN PRN Reason: FEVER OR PAIN Last Admin: 09/09/17 20:05 Dose: 650 mg Albuterol/Ipratropium (Duoneb -) 1 amp NEB QIDR [facility] Last Admin: 09/11/17 11:04 Dose: 1 amp Digoxin (Lanoxin -) 0.125 mg PO DAILY [facility] Last Admin: 09/11/17 10:14 Dose: 0.125 mg Diltiazem HCl (Cardizem Cd -) 240 mg PO DAILY [facility] Furosemide (Lasix Injection -) 40 mg IVPUSH ONCE [facility] Stop: 09/11/17 23:59 Heparin Sodium (Porcine) (Heparin -) 1,000 unit IVPUSH PRN PRN PRN Reason: Heparin Stop: 09/12/17 03:00 Heparin Sodium (Porcine) (Heparin -) 5,000 unit IVPUSH PRN PRN PRN Reason: Heparin Stop: 09/12/17 03:00 IV Flush (Picc Line Flush) 8 ml IVPUSH PRN PRN PRN Reason: Protocol Heparin Sodium (Porcine) 25, (000 unit/ Sodium Chloride) 500 mls @ 16 mls/hr IV TITR [facility]; 800 UNIT/HR PRN Reason: Protocol Stop: 09/12/17 03:00 Last Admin: 09/11/17 10:40 Dose: 12 mls/hr Sodium Chloride (Normal Saline -) 1,000 mls @ 83 mls/hr IV ASDIR [facility] Last Admin: 09/10/17 18:12 Dose: 83 mls/hr Lactobacillus Acidophilus (Bacid -) 1 tab PO DAILY [facility] Last Admin: 09/11/17 10:12 Dose: 1 tab Levothyroxine Sodium (Synthroid -) 88 mcg PO DAILY@0700 [facility] Last Admin: 09/11/17 06:58 Dose: 88 mcg Magnesium Oxide (Mag-Ox -) 800 mg PO BID [facility] Last Admin: 09/11/17 10:12 Dose: 800 mg Nystatin (Nystop Powder -) 1 applic TP DAILY [facility] Last Admin: 09/11/17 10:41 Dose: 1 applic Ondansetron HCl (Zofran Odt -) 4 mg SL Q6H PRN PRN Reason: NAUSEA Last Admin: 09/04/17 15:40 Dose: 4 mg Tamsulosin HCl (Flomax -) 0.4 mg PO DAILY@1730 [facility] Last Admin: 09/10/17 17:32 Dose: 0.4 mg - Objective Vital Signs: Vital Signs Temperature 97.7 F 09/11/17 06:00 Pulse Rate 126 H 09/11/17 10:29 Respiratory Rate 22 09/11/17 10:29 Blood Pressure 92/49 09/11/17 10:00 O2 Sat by Pulse Oximetry (%) 98 09/11/17 10:30 Constitutional: Yes: Calm, Cachectic Eyes: Yes: Occular Prosthesis HENT: Yes: WNL Neck: Yes: Supple (TRACH) Cardiovascular: Yes: Pulse Irregular, S1, S2 Respiratory: Yes: Diminished Gastrointestinal: Yes: Normal Bowel Sounds, Soft Extremities: Yes: WNL Edema: No Labs: CBC, BMP 09/11/17 06:35 09/11/17 06:35 INR, PTT INR 2.00 (0.82-1.09) H 09/11/17 12:20 Fibrinogen 532.0 mg/dL (238-498) H 09/10/17 11:30 - ....Imaging Chest X-ray: Report Reviewed, Image Reviewed Problem List - Problems (1) Fever Code(s): R50.9 - FEVER, UNSPECIFIED Qualifiers: Fever type: unspecified Qualified Code(s): R50.9 - Fever, unspecified; R50.9 - Fever, unspecified (2) Hematuria Code(s): R31.9 - HEMATURIA, UNSPECIFIED Qualifiers: Hematuria type: unspecified type Qualified Code(s): R31.9 - Hematuria, unspecified; R31.9 - Hematuria, unspecified (3) Sacral decubitus ulcer, stage II Code(s): L89.152 - PRESSURE ULCER OF SACRAL REGION, STAGE 2 (4) A-fib Code(s): I48.91 - UNSPECIFIED ATRIAL FIBRILLATION Qualifiers: Atrial fibrillation type: paroxysmal Qualified Code(s): I48.0 - Paroxysmal atrial fibrillation; I48.0 - Paroxysmal atrial fibrillation; I48.0 - Paroxysmal atrial fibrillation; I48.0 - Paroxysmal atrial fibrillation (5) Acute on chronic respiratory failure with hypoxia and hypercapnia Code(s): J96.21 - ACUTE AND CHRONIC RESPIRATORY FAILURE WITH HYPOXIA J96.22 - ACUTE AND CHRONIC RESPIRATORY FAILURE WITH HYPERCAPNIA (6) Anemia Code(s): D64.9 - ANEMIA, UNSPECIFIED Qualifiers: Anemia type: unspecified type Qualified Code(s): D64.9 - Anemia, unspecified; D64.9 - Anemia, unspecified (7) COPD (chronic obstructive pulmonary disease) Code(s): J44.9 - CHRONIC OBSTRUCTIVE PULMONARY DISEASE, UNSPECIFIED Qualifiers : COPD type: unspecified COPD Qualified Code(s): J44.9 - Chronic obstructive pulmonary disease, unspecified; J44.9 - Chronic obstructive pulmonary disease, unspecified; J44.9 - Chronic obstructive pulmonary disease, unspecified; J44.9 - Chronic obstructive pulmonary disease, unspecified (8) Chest pain Code(s): R07.9 - CHEST PAIN, UNSPECIFIED Qualifiers: Chest pain type: pleurodynia Qualified Code(s): R07.81 - Pleurodynia ; R07.81 - Pleurodynia (9) Diastolic heart failure Code(s): I50.30 - UNSPECIFIED DIASTOLIC (CONGESTIVE) HEART FAILURE Qualifiers : Heart failure chronicity: chronic Qualified Code(s): I50.32 - Chronic diastolic (congestive) heart failure; I50.32 - Chronic diastolic ( congestive) heart failure; I50.32 - Chronic diastolic (congestive) heart failure ; I50.32 - Chronic diastolic (congestive) heart failure (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 Assessment/Plan IMP ACUTE ON CHRONIC HYPOXEMIC/HYPERCAPNEIC RESPIRATORY FAILURE INVASIVE ANT MEDIASTINAL MASS S/P CARDIAC ARREST ?MUCOUS PLUG FEVER ANEMIA COPD AFIB HEMATURIA DIASTOLIC HF HYPERKALEMIA HYPOTENSION PLAN VENT SUPPORT ON AC MODE INHALED BRONCHODILATORS MONITOR H+H AC PASSY RENEA VALVE TOLERATED IVF BX MEDIASTINAL MASS AM DR RAGLAND Problem List - Problems (1) Fever Code(s): R50.9 - FEVER, UNSPECIFIED Qualifiers: Fever type: unspecified Qualified Code(s): R50.9 - Fever, unspecified; R50.9 - Fever, unspecified (2) Hematuria Code(s): R31.9 - HEMATURIA, UNSPECIFIED Qualifiers: Hematuria type: unspecified type Qualified Code(s): R31.9 - Hematuria, unspecified; R31.9 - Hematuria, unspecified (3) Sacral decubitus ulcer, stage II Code(s): L89.152 - PRESSURE ULCER OF SACRAL REGION, STAGE 2 (4) A-fib Code(s): I48.91 - UNSPECIFIED ATRIAL FIBRILLATION Qualifiers: (5) Acute on chronic respiratory failure with hypoxia and hypercapnia Code(s): J96.21 - ACUTE AND CHRONIC RESPIRATORY FAILURE WITH HYPOXIA J96.22 - ACUTE AND CHRONIC RESPIRATORY FAILURE WITH HYPERCAPNIA (6) Anemia Code(s): D64.9 - ANEMIA, UNSPECIFIED Qualifiers: Anemia type: unspecified type Qualified Code(s): D64.9 - Anemia, unspecified; D64.9 - Anemia, unspecified (7) COPD (chronic obstructive pulmonary disease) Code(s): J44.9 - CHRONIC OBSTRUCTIVE PULMONARY DISEASE, UNSPECIFIED Qualifiers : COPD type: unspecified COPD Qualified Code(s): J44.9 - Chronic obstructive pulmonary disease, unspecified; J44.9 - Chronic obstructive pulmonary disease, unspecified; J44.9 - Chronic obstructive pulmonary disease, unspecified; J44.9 - Chronic obstructive pulmonary disease, unspecified (8) Chest pain Code(s): R07.9 - CHEST PAIN, UNSPECIFIED Qualifiers: Chest pain type: pleurodynia Qualified Code(s): R07.81 - Pleurodynia ; R07.81 - Pleurodynia (9) Diastolic heart failure Code(s): I50.30 - UNSPECIFIED DIASTOLIC (CONGESTIVE) HEART FAILURE Qualifiers : Heart failure chronicity: chronic Qualified Code(s): I50.32 - Chronic diastolic (congestive) heart failure; I50.32 - Chronic diastolic ( congestive) heart failure; I50.32 - Chronic diastolic (congestive) heart failure ; I50.32 - Chronic diastolic (congestive) heart failure (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
[2017-09-11] MEDS ORDERED: dilTIAZem HCL 60 MG TABLET (FP) PO ONE (14:15)
[2017-09-11] MEDS ORDERED: AMIODARONE HCL 150 MG/3 ML VIAL IVPUSH ONE ×2 (16:02→20:04)
[2017-09-11] MEDS ORDERED: HEPARIN NA (PORCINE) 5,000 UNITS/ML 1ML VIAL IVPUSH PRN ×2 (16:46)
[2017-09-11] MEDS: HEPARIN INFUSION - 500 ML IVPB SCH (17:19)
[2017-09-11] MEDS: TAMSULOSIN HCL 0.4 MG CAP.ER.24H (FP) PO SCH (17:22)
[2017-09-11] MEDS ORDERED: AMIODARONE HCL 150 MG/3 ML VIAL ONE (20:08)
--- NOTE | 2017-09-11 21:00 | CONSULT ---
Consult Consult Specialty:: PULM/CCM Referred by:: Dr. Dino Lopez Reason for Consultation:: A-Fib w/ RVR - History of Present Illness Chief Complaint: A-Fib w/ RVR History of Present Illness: Ms. Sarabia is a 67 y/o woman, [facility] Resident, w/ HTN, COPD, chronic hypoxic respiratory failure, trach, VDRF, pA-Fib (not on a/c due to fall risk) originally referred from [facility] on 08/12 for: fever --> 102, hematuria, anemia, hyotension, and tachycardia. The pt was started on abx and IVFs for suspected UTI. The pt never c/o any CP, palpitations, orthopnea, PND or LE edema. C/c/b near arrest mucus plugging incident. The pt was convalescing well on the floor awaiting bx of large mediastinal mass in the AM when she began to present w/ recurrent pA-Fib w/ RVR --> 160's in the setting of profound anemia. Pt Transferred to ICU for Blood & CCB gtt. 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: Yes: CVA, Other (poor short term memory) Cardio/Vascular: Yes: AFIB, HTN Pulmonary: Yes: COPD, Previously Intubated, Other (RESPIRATORY FAILURE) Infectious Disease: Yes: C-Diff Endocrine: Yes: Hypothyroidism - Past Surgical History Past Surgical History: Yes: Appendectomy - Alcohol/Substance Use Hx Alcohol Use: No History of Substance Use: reports: None - Smoking History Smoking history: Unknown if ever smoked Have you smoked in the past 12 months: No If you are a former smoker, when did you quit?: 2008 - Social History Usual Living Arrangement: Care Home ADL: Family Assistance History of Recent Travel: No Home Medications - Allergies Allergies/Adverse Reactions: Allergies Allergy/AdvReac Type Severity Reaction Status Date / Time peas Allergy Severe Difficulty Verified 07/19/17 12:10 Breathing Iodinated Contrast- Oral and Allergy Verified 07/19/17 12:10 IV Dye [Iodinated Contrast Media - IV Dye] iodine Allergy Verified 07/19/17 12:10 - Home Medications Home Medications: Ambulatory Orders Albuterol 2.5/Ipratropium 0.5 [Duoneb -] 1 neb NEB TID 02/01/16 Aspirin [Ecotrin] 81 mg PO DAILY 02/01/16 Folic Acid 1 mg PO DAILY 02/01/16 Levothyroxine [Synthroid -] 75 mcg PO DAILY 02/01/16 Lorazepam 0.5 mg PO HS 02/01/16 Mirtazapine 15 mg PO HS 02/01/16 Thiamine HCl [Vitamin B1 -] 100 mg PO DAILY 02/01/16 Vitamin B Complex Vit C No.3 [B Complex with Vitamin C] 1 each PO DAILY Ranitidine [Zantac -] 150 mg PO DAILY tablet 02/09/16 Cholestyramine/Aspartame [Questran Light Packet -] 4 gm PO BID packet 06/14/17 Acetaminophen [Tylenol .Regular Strength -] 650 mg PO Q4H PRN #0 tablet Albuterol 0.083% Nebulizer Carina [Ventolin 0.083% Nebulizer Soln -] 1 amp NEB Q4H PRN #180 amp 06/23/17 Apixaban [Eliquis -] 5 mg PO BID tablet 06/23/17 Budesonide [Pulmicort 0.25 mg Nebulizer -] 1 amp NEB BID amp 06/23/17 Melatonin 5 mg PO HS tab 06/23/17 Oxycodone HCl [Roxicodone -] 5 mg PO Q4H PRN #0 tablet MDD 6 06/23/17 Valsartan [Diovan] 320 mg PO DAILY tablet 07/27/17 Aa/Hydrolyzed Collagen, Whey [Lps Neutral Flavor Liquid] 30 ml PO BID 08/12/17 Calcium Carbonate/Vitamin D3 [Oyster Shell 500-Vit D3 200 Tb] 1 each PO DAILY Diltiazem HCl [Cardizem LA] 120 mg PO DAILY 08/12/17 Fluconazole [Diflucan -] 100 mg PO DAILY 08/12/17 Iron 325 mg PO BID 08/12/17 Lactobacillus Acidophilus [Bacid -] 1 tab PO BID 08/12/17 Levofloxacin [Levaquin] 500 mg PO DAILY 08/12/17 Pantoprazole Sodium 40 mg PO DAILY 08/12/17 Polyvinyl Alcohol [Artificial Tears] 1 drop OD DAILY 08/12/17 Physical Exam Vital Signs: Vital Signs Temperature 97.7 F 09/11/17 20:00 Pulse Rate 132 H 09/11/17 20:00 Respiratory Rate 24 09/11/17 20:00 Blood Pressure 143/111 09/11/17 20:00 O2 Sat by Pulse Oximetry (%) 100 09/11/17 16:00 Labs: 09/11/17 06:35 09/11/17 06:35 Microbiology 08/26/17 15:00 Sputum - Endotrachea Suction/Ventilator Gram Stain - Final 08/26/17 15:00 Sputum - Endotrachea Suction/Ventilator Sputum Culture - Final Acinetobacter Baumannii/Haemol Mr S Aureus 08/25/17 10:27 Blood - Peripheral Venous Blood Culture - Final NO GROWTH AFTER 5 DAYS INCUBATION 08/25/17 10:27 Blood - Peripheral Venous Blood Culture - Final NO GROWTH AFTER 5 DAYS INCUBATION 08/22/17 15:30 Stool Salmonella/Shigella Culture - Final 08/22/17 15:30 Stool Campylobacter Culture - Final NO GROWTH OF CAMPYLOBACTER SPECIES OBTAINED 08/22/17 15:30 Stool Yersinia Culture - Final NO GROWTH OF YERSINIA SPECIES OBTAINED 08/22/17 15:30 Stool Vibrio Culture - Final NO GROWTH OF VIBRIO SPECIES OBTAINED 08/22/17 15:30 Stool Escherichia coli 0157 Culture - Final NO GROWTH OF E COLI 0157 OBTAINED 08/22/17 13:30 Blood - Peripheral Venous Blood Culture - Final NO GROWTH AFTER 5 DAYS INCUBATION 08/22/17 13:30 Blood - Peripheral Venous Blood Culture - Final NO GROWTH AFTER 5 DAYS INCUBATION 08/25/17 18:00 Urine - Urine - Catheterized Urine Culture - Final NO GROWTH OBTAINED 08/19/17 00:00 Blood - Peripheral Venous Blood Culture - Final NO GROWTH AFTER 5 DAYS INCUBATION 08/19/17 00:00 Blood - Peripheral Venous Blood Culture - Final NO GROWTH AFTER 5 DAYS INCUBATION 08/23/17 08:30 Stool Clostridium difficile Antigen (TEDDY) - Final 08/23/17 08:30 Stool Clostridium difficile Toxin Assay - Final 08/15/17 17:45 Decubiti Gram Stain - Final 08/15/17 17:45 Decubiti Wound Culture - Final Mr S Aureus Vr Ec Faecalis 08/15/17 17:45 Sputum - Endotrachea Suction/Ventilator Gram Stain - Final 08/15/17 17:45 Sputum - Endotrachea Suction/Ventilator Sputum Culture - Final Mr S Aureus 08/12/17 18:10 Blood - Peripheral Venous Blood Culture - Final NO GROWTH AFTER 5 DAYS INCUBATION 08/12/17 18:00 Blood - Peripheral Venous Blood Culture - Final NO GROWTH AFTER 5 DAYS INCUBATION 08/15/17 17:45 Urine - Urine - Catheterized Urine Culture - Final Yeast Like Organism 08/12/17 18:00 Urine - Urine Nelson Urine Culture - Final Contaminated: Please Repeat 08/13/17 23:30 Stool Clostridium difficile Antigen (TEDDY) - Final 08/13/17 23:30 Stool Clostridium difficile Toxin Assay - Final Imaging - Results X-ray: Image Reviewed (09/10: Tracheostomy, no CVC, otherwise clear (My Read).) Problem List - Problems (1) Multifocal atrial tachycardia Code(s): I47.1 - SUPRAVENTRICULAR TACHYCARDIA (2) A-fib Code(s): I48.91 - UNSPECIFIED ATRIAL FIBRILLATION Qualifiers: Atrial fibrillation type: paroxysmal Qualified Code(s): I48.0 - Paroxysmal atrial fibrillation; I48.0 - Paroxysmal atrial fibrillation; I48.0 - Paroxysmal atrial fibrillation; I48.0 - Paroxysmal atrial fibrillation (3) Acute on chronic respiratory failure with hypoxia and hypercapnia Code(s): J96.21 - ACUTE AND CHRONIC RESPIRATORY FAILURE WITH HYPOXIA J96.22 - ACUTE AND CHRONIC RESPIRATORY FAILURE WITH HYPERCAPNIA (4) Anemia Code(s): D64.9 - ANEMIA, UNSPECIFIED Qualifiers: Anemia type: unspecified type Qualified Code(s): D64.9 - Anemia, unspecified; D64.9 - Anemia, unspecified Assessment/Plan ASSESS: A-Fib w/ RVR ACUTE ON CHRONIC HYPOXEMIC/HYPERCAPNEIC RESPIRATORY FAILURE ANEMIA INVASIVE ANT MEDIASTINAL MASS S/P ?MUCOUS PLUG FEVER COPD HEMATURIA DIASTOLIC HF HYPERKALEMIA HYPOTENSION PLAN: VENT SUPPORT ON AC MODE INHALED BRONCHODILATORS Amiodarone Load PRBCs X2U Heparin gtt MONITOR H+H PASSY RENEA VALVE TOLERATED IVF BX MEDIASTINAL MASS TOMORROW AM TRANSFER BACK TO [facility]AL[facility] Thank you for this interesting Consult. [facility] ICU [id number] PULM/CCM
--- NOTE | 2017-09-11 23:19 | PN ---
Progress Note, Physician Chief Complaint: Events noted. Patient was seen earlier this am Remains on mechanical ventilation via trache intermittent rapid ventricular response. ECG suggests MAT, but with history of paroxysmal atrial fibrillation and remains hypotensive. S/P cardiac resuscitation the night before possibly due to mucous plug vs. arrhythmia History of Present Illness: Patient was seen and examined. Awake. Chart was reviewed Denies chest pain or palpitations Intermittently hypotensive. Remains tachycardic up to 160's Patient was given Cardizem CD this am, but remained tachycardic in the afternoon - Current Medication List Current Medications: Active Medications Acetaminophen (Tylenol -) 650 mg PO Q6H PRN PRN Reason: FEVER OR PAIN Last Admin: 09/09/17 20:05 Dose: 650 mg Albuterol/Ipratropium (Duoneb -) 1 amp NEB QIDR [facility] Last Admin: 09/11/17 23:16 Dose: 1 amp Digoxin (Lanoxin -) 0.125 mg PO DAILY [facility] Last Admin: 09/11/17 10:14 Dose: 0.125 mg Furosemide (Lasix Injection -) 40 mg IVPUSH ONCE [facility] Stop: 09/11/17 23:59 Heparin Sodium (Porcine) (Heparin -) 1,000 unit IVPUSH PRN PRN PRN Reason: Heparin Heparin Sodium (Porcine) (Heparin -) 5,000 unit IVPUSH PRN PRN PRN Reason: Heparin IV Flush (Picc Line Flush) 8 ml IVPUSH PRN PRN PRN Reason: Protocol Sodium Chloride (Normal Saline -) 1,000 mls @ 83 mls/hr IV ASDIR [facility] Last Admin: 09/11/17 13:00 Dose: Not Given Heparin Sodium/Dextrose (Heparin Infusion -) 500 mls @ 12 mls/hr IVPB TITR [facility] ; 600 UNITS/HR PRN Reason: Protocol Last Titration: 09/11/17 20:03 Dose: 750 units/hr Lactobacillus Acidophilus (Bacid -) 1 tab PO DAILY [facility] Last Admin: 09/11/17 10:12 Dose: 1 tab Levothyroxine Sodium (Synthroid -) 88 mcg PO DAILY@0700 [facility] Last Admin: 09/11/17 06:58 Dose: 88 mcg Magnesium Oxide (Mag-Ox -) 800 mg PO BID [facility] Last Admin: 09/11/17 21:32 Dose: 800 mg Nystatin (Nystop Powder -) 1 applic TP DAILY [facility] Last Admin: 09/11/17 10:41 Dose: 1 applic Ondansetron HCl (Zofran Odt -) 4 mg SL Q6H PRN PRN Reason: NAUSEA Last Admin: 09/04/17 15:40 Dose: 4 mg Tamsulosin HCl (Flomax -) 0.4 mg PO DAILY@1730 [facility] Last Admin: 09/11/17 17:22 Dose: Not Given - Objective Vital Signs: Vital Signs Temperature 97.7 F 09/11/17 20:00 Pulse Rate 113 H 09/11/17 23:02 Respiratory Rate 22 09/11/17 23:02 Blood Pressure 85/54 09/11/17 22:00 O2 Sat by Pulse Oximetry (%) 97 09/11/17 23:02 Cardiovascular: Yes: Tachycardia, Pulse Irregular, S1, S2 Respiratory: Yes: Mechanically Ventilated, Rhonchi Gastrointestinal: Yes: Normal Bowel Sounds, Soft. No: Tenderness Edema: No Labs: CBC, BMP 09/11/17 06:35 09/11/17 06:35 INR, PTT INR 2.00 (0.82-1.09) H 09/11/17 12:20 Fibrinogen 532.0 mg/dL (238-498) H 09/10/17 11:30 Problem List - Problems (1) A-fib Code(s): I48.91 - UNSPECIFIED ATRIAL FIBRILLATION Qualifiers: Atrial fibrillation type: paroxysmal Qualified Code(s): I48.0 - Paroxysmal atrial fibrillation; I48.0 - Paroxysmal atrial fibrillation; I48.0 - Paroxysmal atrial fibrillation; I48.0 - Paroxysmal atrial fibrillation (2) Acute and chronic respiratory failure with hypoxia Code(s): J96.21 - ACUTE AND CHRONIC RESPIRATORY FAILURE WITH HYPOXIA (3) Acute on chronic respiratory failure with hypoxia and hypercapnia Code(s): J96.21 - ACUTE AND CHRONIC RESPIRATORY FAILURE WITH HYPOXIA J96.22 - ACUTE AND CHRONIC RESPIRATORY FAILURE WITH HYPERCAPNIA (4) Anemia Code(s): D64.9 - ANEMIA, UNSPECIFIED Qualifiers: Anemia type: unspecified type Qualified Code(s): D64.9 - Anemia, unspecified; D64.9 - Anemia, unspecified (5) COPD (chronic obstructive pulmonary disease) Code(s): J44.9 - CHRONIC OBSTRUCTIVE PULMONARY DISEASE, UNSPECIFIED Qualifiers : COPD type: unspecified COPD Qualified Code(s): J44.9 - Chronic obstructive pulmonary disease, unspecified; J44.9 - Chronic obstructive pulmonary disease, unspecified; J44.9 - Chronic obstructive pulmonary disease, unspecified; J44.9 - Chronic obstructive pulmonary disease, unspecified (6) Diastolic heart failure Code(s): I50.30 - UNSPECIFIED DIASTOLIC (CONGESTIVE) HEART FAILURE Qualifiers : Heart failure chronicity: chronic Qualified Code(s): I50.32 - Chronic diastolic (congestive) heart failure; I50.32 - Chronic diastolic ( congestive) heart failure; I50.32 - Chronic diastolic (congestive) heart failure ; I50.32 - Chronic diastolic (congestive) heart failure (7) Hypothyroid Code(s): E03.9 - HYPOTHYROIDISM, UNSPECIFIED Qualifiers: Hypothyroidism type: unspecified Qualified Code(s): E03.9 - Hypothyroidism, unspecified; E03.9 - Hypothyroidism, unspecified; E03.9 - Hypothyroidism, unspecified (8) Pneumonia Code(s): J18.9 - PNEUMONIA, UNSPECIFIED ORGANISM Qualifiers: Pneumonia type: due to unspecified organism Laterality: left Lung location: lower lobe of lung Qualified Code(s): J18.1 - Lobar pneumonia, unspecified organism; J18.1 - Lobar pneumonia, unspecified organism; J18.1 - Lobar pneumonia, unspecified organism (9) Tracheostomy dependence Code(s): Z93.0 - TRACHEOSTOMY STATUS (10) Multifocal atrial tachycardia Code(s): I47.1 - SUPRAVENTRICULAR TACHYCARDIA Assessment/Plan 1. 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 COPD with acute on chronic hypoxic/hypercapneic respiratory failure post tracheostomy 3. Diastolic LV dysfunction with class I NYHA classification LV congestive heart failure, compensated/euvolemic 4. Paroxysmal Atrial Fibrillation/multifocal atrial tachycardia on NOAC ( [id number] score of 4) 5. HTN 6. Hypothyroidism 7. History of C. Difficile Colitis 8. History of MARLYN, resolved 9. 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 Patient was moved to ICU for further monitoring and treatment. Continue ventilation support 2. May continue Cardizem PO or IV if needed as long as BP permits. Underlying rhythm appeared MAT on ECG previously which may confuse AF. Treatment for MAT would be Cardizem to control HR. 3. Eliquis has been held. Agree with Heparin protocol for now 4. Transfuse PRBC as needed 5. Further plan regarding mediastinal mass to follow Further plans are to follow Bert Ivan MD
[2017-09-12] MEDS: ACETAMINOPHEN 325 MG TABLET (FP) PO PRN (02:30)
[2017-09-12] MEDS ORDERED: AMIODARONE HCL 150 MG/3 ML VIAL IVPUSH ONE ×2 (03:24→19:53)
[2017-09-12] MEDS ORDERED: SODIUM CHLORIDE 0.9% 1000 ML INFUS.BAG IV ONE (03:30)
[2017-09-12] MEDS ORDERED: AMIODARONE HCL INJECTION 450 MG in DEXTROSE 5%-WATER - 241 ML IVPB SCH ×2 (03:30→20:00)
[2017-09-12] MEDS: ALBUTEROL SO4 2.5/IPRATROPIUM 0.5 INH SOL 3 ML VIAL.NEB. NEB SCH ×4 (06:32→23:33)
[2017-09-12] MEDS: LEVOTHYROXINE NA 88 MCG TABLET (FP) PO SCH ×2 (06:33→10:40)
[2017-09-12 08:36] LABS: MCH 29.5 pg (25.7-33.7); MCHC 33.2 g/dl (32.0-36.0); MEAN PLT VOLUME 8.4 fl (7.5-11.1); PLATELET COUNT 409 K/MM3 (134-434); RDW 15.3 % (11.6-15.6); WHITE BLOOD COUNT 20.5 K/mm3 (4.0-10.0)
[2017-09-12 09:03] LABS: ANION GAP 14 (8-16); CO2 20 mmol/L (21-32); CREATININE 1.1 mg/dL (0.55-1.02); GLUCOSE,RANDOM 149 mg/dL (74-106); MAGNESIUM 2.5 mg/dL (1.8-2.4)
[2017-09-12 09:04] LABS: PHOSPHOROUS 5.2 mg/dL (2.5-4.9)
[2017-09-12 09:07] LABS: INR 1.47 (0.82-1.09); PROTHROMBIN TIME (PATIENT) 16.6 SEC (9.98-11.88)
--- NOTE | 2017-09-12 09:51 | PN ---
Progress Note, Physician Chief Complaint: seen and examined in icu awaiting biopsy today by IR ant mediastinal mass on heparin drip s/p PRBC h/h improved got vitamin K for elevated INR - Current Medication List Current Medications: Active Medications Acetaminophen (Tylenol -) 650 mg PO Q6H PRN PRN Reason: FEVER OR PAIN Last Admin: 09/12/17 02:30 Dose: 650 mg Albuterol/Ipratropium (Duoneb -) 1 amp NEB QIDR [facility] Last Admin: 09/12/17 06:32 Dose: 1 amp Digoxin (Lanoxin -) 0.125 mg PO DAILY [facility] Last Admin: 09/11/17 10:14 Dose: 0.125 mg Heparin Sodium (Porcine) (Heparin -) 1,000 unit IVPUSH PRN PRN PRN Reason: Heparin Heparin Sodium (Porcine) (Heparin -) 5,000 unit IVPUSH PRN PRN PRN Reason: Heparin IV Flush (Picc Line Flush) 8 ml IVPUSH PRN PRN PRN Reason: Protocol Sodium Chloride (Normal Saline -) 1,000 mls @ 83 mls/hr IV ASDIR [facility] Last Admin: 09/11/17 13:00 Dose: Not Given Heparin Sodium/Dextrose (Heparin Infusion -) 500 mls @ 12 mls/hr IVPB TITR [facility] ; 600 UNITS/HR PRN Reason: Protocol Last Titration: 09/12/17 02:40 Dose: 0 units/hr Amiodarone HCl 450 mg/ (Dextrose) 250 mls @ 33.33 mls/hr IVPB TITR [facility]; 1 MG/ MIN PRN Reason: Protocol Stop: 09/12/17 10:00 Last Admin: 09/12/17 03:44 Dose: 33.33 mls/hr Influenza Virus Vaccine Quadrival (Flulaval Quad [id number]) 60 mcg IM .ONCE ONE Stop: 09/12/17 10:01 Lactobacillus Acidophilus (Bacid -) 1 tab PO DAILY [facility] Last Admin: 09/11/17 10:12 Dose: 1 tab Levothyroxine Sodium (Synthroid -) 88 mcg PO DAILY@0700 [facility] Last Admin: 09/12/17 06:33 Dose: Not Given Magnesium Oxide (Mag-Ox -) 800 mg PO BID [facility] Last Admin: 09/11/17 21:32 Dose: 800 mg Nystatin (Nystop Powder -) 1 applic TP DAILY [facility] Last Admin: 09/11/17 10:41 Dose: 1 applic Ondansetron HCl (Zofran Odt -) 4 mg SL Q6H PRN PRN Reason: NAUSEA Last Admin: 09/04/17 15:40 Dose: 4 mg Tamsulosin HCl (Flomax -) 0.4 mg PO DAILY@1730 [facility] Last Admin: 09/11/17 17:22 Dose: Not Given - Objective Vital Signs: Vital Signs Temperature 98.2 F 09/12/17 06:00 Pulse Rate 84 09/12/17 08:00 Respiratory Rate 20 09/12/17 08:00 Blood Pressure 142/67 09/12/17 08:00 O2 Sat by Pulse Oximetry (%) 97 09/11/17 23:02 Constitutional: Yes: Calm, Thin Neck: Yes: Other (trach) Respiratory: Yes: CTA Bilaterally, Mechanically Ventilated Gastrointestinal: Yes: Normal Bowel Sounds, Soft Edema: No Neurological: Yes: Alert, Oriented (to name) Labs: CBC, BMP 09/12/17 08:10 09/12/17 08:10 INR, PTT INR 1.47 (0.82-1.09) H 09/12/17 08:10 Fibrinogen 532.0 mg/dL (238-498) H 09/10/17 11:30 Problem List - Problems (1) Mediastinal mass Assessment/Plan: patient wants biopsy\ to go to IR today NPO Code(s): J98.59 - OTHER DISEASES OF MEDIASTINUM, NOT ELSEWHERE CLASSIFIED (2) Fever Assessment/Plan: afebrile fever resolved iv abx stopped diarrhea - po flagyl for c diff- completed course - resolved cultures so far negative Microbiology 08/25/17 10:27 Blood - Peripheral Venous Blood Culture - Preliminary NO GROWTH OBTAINED AFTER 24 HOURS, INCUBATION TO CONTINUE FOR 4 DAYS. 08/25/17 10:27 Blood - Peripheral Venous Blood Culture - Preliminary NO GROWTH OBTAINED AFTER 24 HOURS, INCUBATION TO CONTINUE FOR 4 DAYS. fever ?secondary to mass- unclear but will give iv abx for now d/w sister lianne in detail about this new development and weight loss and decline in health Microbiology 08/23/17 08:30 Stool Clostridium difficile Antigen (TEDDY) - Final 08/23/17 08:30 Stool Clostridium difficile Toxin Assay - Final Code(s): R50.9 - FEVER, UNSPECIFIED Qualifiers: Fever type: unspecified Qualified Code(s): R50.9 - Fever, unspecified; R50.9 - Fever, unspecified (3) A-fib Assessment/Plan: tactashahcardia started on amiodarone drip heparin drip Code(s): I48.91 - UNSPECIFIED ATRIAL FIBRILLATION Qualifiers: Atrial fibrillation type: paroxysmal Qualified Code(s): I48.0 - Paroxysmal atrial fibrillation; I48.0 - Paroxysmal atrial fibrillation; I48.0 - Paroxysmal atrial fibrillation; I48.0 - Paroxysmal atrial fibrillation (4) Acute on chronic respiratory failure with hypoxia and hypercapnia Assessment/Plan: A/C mode fio2 40% vent support bronchodilators chest ct noted for soft tissue mass- plan to get biopsy today heparin drip on hold npo Code(s): J96.21 - ACUTE AND CHRONIC RESPIRATORY FAILURE WITH HYPOXIA J96.22 - ACUTE AND CHRONIC RESPIRATORY FAILURE WITH HYPERCAPNIA (5) Diastolic heart failure Assessment/Plan: no signs of volum overload cardio on board Code(s): I50.30 - UNSPECIFIED DIASTOLIC (CONGESTIVE) HEART FAILURE Qualifiers : Heart failure chronicity: chronic Qualified Code(s): I50.32 - Chronic diastolic (congestive) heart failure; I50.32 - Chronic diastolic ( congestive) heart failure; I50.32 - Chronic diastolic (congestive) heart failure ; I50.32 - Chronic diastolic (congestive) heart failure (6) Anemia Assessment/Plan: stable h/h s/p prbc on 09/11 f Code(s): D64.9 - ANEMIA, UNSPECIFIED Qualifiers: Anemia type: unspecified type Qualified Code(s): D64.9 - Anemia, unspecified; D64.9 - Anemia, unspecified (7) Diarrhea Assessment/Plan: Microbiology 08/23/17 08:30 Stool Clostridium difficile Antigen (TEDDY) - Final 08/23/17 08:30 Stool Clostridium difficile Toxin Assay - Final 07/19/17 21:00 Sputum - Endotrachea Suction/Ventilator Gram Stain - Final 07/19/17 21:00 Sputum - Endotrachea Suction/Ventilator Sputum Culture - Final Beta Hem Streptococcus Group G Providencia Stuartii Diphtheroid/Corynebacterium on flagyl - course done/ improved Code(s): R19.7 - DIARRHEA, UNSPECIFIED Qualifiers: Diarrhea type: unspecified type Qualified Code(s): R19.7 - Diarrhea , unspecified; R19.7 - Diarrhea, unspecified (8) Hypokalemia due to loss of potassium Assessment/Plan: K is ok l Code(s): E87.6 - HYPOKALEMIA (9) Decrease in appetite Assessment/Plan: when i spoke to sister last week she said no feeding tube flagyl course completed Code(s): R63.0 - ANOREXIA (10) Hypothyroid Assessment/Plan: synthroid po tsh noted Code(s): E03.9 - HYPOTHYROIDISM, UNSPECIFIED Qualifiers: Hypothyroidism type: unspecified Qualified Code(s): E03.9 - Hypothyroidism, unspecified; E03.9 - Hypothyroidism, unspecified; E03.9 - Hypothyroidism, unspecified
[2017-09-12] MEDS ORDERED: FLU VACCINE QUAD 60 MCG/0.5 ML (MDV 17-18) IM ONE (10:00)
[2017-09-12] MEDS: LACTOBACILLUS ACIDOPHILUS 1 EACH TAB (FP) PO SCH (10:39)
[2017-09-12] MEDS: MAGNESIUM OXIDE 400 MG TABLET (FP) PO SCH ×2 (10:39→21:00)
[2017-09-12] MEDS: DIGOXIN 0.125 MG TABLET (FP) PO SCH (10:39)
--- NOTE | 2017-09-12 10:51 | PN ---
Progress Note, Physician History of Present Illness: Afebrile, resting comfortably on vent, remains in rate-controlled afib. - Current Medication List Current Medications: Active Medications Acetaminophen (Tylenol -) 650 mg PO Q6H PRN PRN Reason: FEVER OR PAIN Last Admin: 09/12/17 02:30 Dose: 650 mg Albuterol/Ipratropium (Duoneb -) 1 amp NEB QIDR [facility] Last Admin: 09/12/17 06:32 Dose: 1 amp Digoxin (Lanoxin -) 0.125 mg PO DAILY [facility] Last Admin: 09/12/17 10:39 Dose: 0.125 mg Diltiazem HCl (Cardizem Cd -) 120 mg PO DAILY [facility] Heparin Sodium (Porcine) (Heparin -) 1,000 unit IVPUSH PRN PRN PRN Reason: Heparin Heparin Sodium (Porcine) (Heparin -) 5,000 unit IVPUSH PRN PRN PRN Reason: Heparin IV Flush (Picc Line Flush) 8 ml IVPUSH PRN PRN PRN Reason: Protocol Sodium Chloride (Normal Saline -) 1,000 mls @ 83 mls/hr IV ASDIR [facility] Last Admin: 09/11/17 13:00 Dose: Not Given Heparin Sodium/Dextrose (Heparin Infusion -) 500 mls @ 12 mls/hr IVPB TITR [facility] ; 600 UNITS/HR PRN Reason: Protocol Last Titration: 09/12/17 02:40 Dose: 0 units/hr Lactobacillus Acidophilus (Bacid -) 1 tab PO DAILY [facility] Last Admin: 09/12/17 10:39 Dose: 1 tab Levothyroxine Sodium (Synthroid -) 88 mcg PO DAILY@0700 [facility] Last Admin: 09/12/17 10:40 Dose: 88 mcg Magnesium Oxide (Mag-Ox -) 800 mg PO BID [facility] Last Admin: 09/12/17 10:39 Dose: 800 mg Nystatin (Nystop Powder -) 1 applic TP DAILY [facility] Last Admin: 09/11/17 10:41 Dose: 1 applic Ondansetron HCl (Zofran Odt -) 4 mg SL Q6H PRN PRN Reason: NAUSEA Last Admin: 09/04/17 15:40 Dose: 4 mg Tamsulosin HCl (Flomax -) 0.4 mg PO DAILY@1730 [facility] Last Admin: 09/11/17 17:22 Dose: Not Given - Objective Vital Signs: Vital Signs Temperature 98.8 F 09/12/17 10:00 Pulse Rate 87 09/12/17 10:39 Respiratory Rate 21 09/12/17 10:01 Blood Pressure 92/45 09/12/17 10:00 O2 Sat by Pulse Oximetry (%) 95 09/12/17 10:02 Constitutional: Yes: No Distress, Calm Neck: Yes: Supple Cardiovascular: Yes: Pulse Irregular Respiratory: Yes: Intubated, Mechanically Ventilated Gastrointestinal: Yes: Normal Bowel Sounds, Soft Edema: No Labs: CBC, BMP 09/12/17 08:10 09/12/17 08:10 INR, PTT INR 1.47 (0.82-1.09) H 09/12/17 08:10 Fibrinogen 532.0 mg/dL (238-498) H 09/10/17 11:30 - ....Imaging EKG: Report Reviewed (Tele: multifocal atrial tachycardia) Problem List - Problems (1) Fever Code(s): R50.9 - FEVER, UNSPECIFIED Qualifiers: Fever type: unspecified Qualified Code(s): R50.9 - Fever, unspecified; R50.9 - Fever, unspecified (2) Hematuria Code(s): R31.9 - HEMATURIA, UNSPECIFIED Qualifiers: Hematuria type: unspecified type Qualified Code(s): R31.9 - Hematuria, unspecified; R31.9 - Hematuria, unspecified (3) Acute on chronic respiratory failure with hypoxia and hypercapnia Code(s): J96.21 - ACUTE AND CHRONIC RESPIRATORY FAILURE WITH HYPOXIA J96.22 - ACUTE AND CHRONIC RESPIRATORY FAILURE WITH HYPERCAPNIA (4) COPD (chronic obstructive pulmonary disease) Code(s): J44.9 - CHRONIC OBSTRUCTIVE PULMONARY DISEASE, UNSPECIFIED Qualifiers : COPD type: unspecified COPD Qualified Code(s): J44.9 - Chronic obstructive pulmonary disease, unspecified; J44.9 - Chronic obstructive pulmonary disease, unspecified; J44.9 - Chronic obstructive pulmonary disease, unspecified; J44.9 - Chronic obstructive pulmonary disease, unspecified (5) Diastolic heart failure Code(s): I50.30 - UNSPECIFIED DIASTOLIC (CONGESTIVE) HEART FAILURE Qualifiers : Heart failure chronicity: chronic Qualified Code(s): I50.32 - Chronic diastolic (congestive) heart failure; I50.32 - Chronic diastolic ( congestive) heart failure; I50.32 - Chronic diastolic (congestive) heart failure ; I50.32 - Chronic diastolic (congestive) heart failure (6) Hypothyroid Code(s): E03.9 - HYPOTHYROIDISM, UNSPECIFIED Qualifiers: Hypothyroidism type: unspecified Qualified Code(s): E03.9 - Hypothyroidism, unspecified; E03.9 - Hypothyroidism, unspecified; E03.9 - Hypothyroidism, unspecified (7) Tracheostomy dependence Code(s): Z93.0 - TRACHEOSTOMY STATUS (8) UTI (urinary tract infection) Code(s): N39.0 - URINARY TRACT INFECTION, SITE NOT SPECIFIED Qualifiers: Urinary tract infection type: site unspecified Hematuria presence: with hematuria Qualified Code(s): N39.0 - Urinary tract infection, site not specified; N39.0 - Urinary tract infection, site not specified; R31.9 - Hematuria, unspecified; R31.9 - Hematuria, unspecified (9) A-fib Code(s): I48.91 - UNSPECIFIED ATRIAL FIBRILLATION Qualifiers: Atrial fibrillation type: paroxysmal Qualified Code(s): I48.0 - Paroxysmal atrial fibrillation; I48.0 - Paroxysmal atrial fibrillation; I48.0 - Paroxysmal atrial fibrillation; I48.0 - Paroxysmal atrial fibrillation (10) Anticoagulant long-term use Code(s): Z79.01 - [facility] (CURRENT) USE OF ANTICOAGULANTS (11) Mediastinal mass Code(s): J98.59 - OTHER DISEASES OF MEDIASTINUM, NOT ELSEWHERE CLASSIFIED (12) Multifocal atrial tachycardia Code(s): I47.1 - SUPRAVENTRICULAR TACHYCARDIA Assessment/Plan 1. 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 COPD with acute on chronic hypoxic/hypercapneic respiratory failure post tracheostomy 3. Diastolic LV dysfunction with class I NYHA classification LV congestive heart failure, compensated/euvolemic 4. Paroxysmal Atrial Fibrillation/multifocal atrial tachycardia on NOAC ( [id number] score of 4) 5. HTN 6. Hypothyroidism 7. History of C. Difficile Colitis 8. MARLYN 9. 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 Ventilation support on AC mode, BD, mediastinal mass biopsy in AM 2. Digoxin 0.125 qd, Cardizem CD 120 qd 3. Eliquis has been held. Agree with Heparin protocol pre-op 4. Transfused PRBC as needed, monitor Hgb 5. Await mediastinal mass biopsy, may proceed now that afib is rate-controlled
[2017-09-12] MEDS: NYSTATIN POWDER 100,000 UNITS/GM - 15 GM TOPICAL POWDER TP SCH (11:00)
[2017-09-12 11:33] LABS: PLATELET ESTIMATE ADEQUATE (NORMAL); TOTAL CELLS COUNTED 100
--- NOTE | 2017-09-12 12:05 | PN ---
Progress Note (short form) - Note Progress Note: Renal follow up for Hyponatremia Pt seen and examined in the ICU awake and alert on the vent no acute complaints transferred to ICU for HR control and transfusion making urine BP stable Vital Signs Temperature 98.8 F 09/12/17 10:00 Pulse Rate 87 09/12/17 10:39 Respiratory Rate 19 09/12/17 11:41 Blood Pressure 92/45 09/12/17 10:00 O2 Sat by Pulse Oximetry (%) 95 09/12/17 10:02 Intake & Output 09/10/17 09/11/17 09/11/17 09/12/17 00:59 00:59 23:59 23:59 Intake Total 703.9 Balance 703.9 Weight 87 lb 4.849 oz NAD, awake and alert on Vent via trach RRR Course BS soft NT/ND Abd No Le edema CBC, BMP 09/12/17 08:10 09/12/17 08:10 Laboratory Tests 09/12/17 08:10 Calcium 7.0 L Phosphorus 5.2 H Magnesium 2.5 H D Current Medications Acetaminophen (Tylenol -) 650 mg PO Q6H PRN PRN Reason: FEVER OR PAIN Last Admin: 09/12/17 02:30 Dose: 650 mg Albuterol/Ipratropium (Duoneb -) 1 amp NEB QIDR [facility] Last Admin: 09/12/17 11:03 Dose: 1 amp Digoxin (Lanoxin -) 0.125 mg PO DAILY [facility] Last Admin: 09/12/17 10:39 Dose: 0.125 mg Diltiazem HCl (Cardizem Cd -) 120 mg PO DAILY [facility] Last Admin: 09/12/17 11:36 Dose: 120 mg Heparin Sodium (Porcine) (Heparin -) 1,000 unit IVPUSH PRN PRN PRN Reason: Heparin Heparin Sodium (Porcine) (Heparin -) 5,000 unit IVPUSH PRN PRN PRN Reason: Heparin IV Flush (Picc Line Flush) 8 ml IVPUSH PRN PRN PRN Reason: Protocol Sodium Chloride (Normal Saline -) 1,000 mls @ 83 mls/hr IV ASDIR [facility] Last Admin: 09/11/17 13:00 Dose: Not Given Heparin Sodium/Dextrose (Heparin Infusion -) 500 mls @ 12 mls/hr IVPB TITR [facility] ; 600 UNITS/HR PRN Reason: Protocol Last Titration: 09/12/17 02:40 Dose: 0 units/hr Lactobacillus Acidophilus (Bacid -) 1 tab PO DAILY [facility] Last Admin: 09/12/17 10:39 Dose: 1 tab Levothyroxine Sodium (Synthroid -) 88 mcg PO DAILY@0700 [facility] Last Admin: 09/12/17 10:40 Dose: 88 mcg Magnesium Oxide (Mag-Ox -) 800 mg PO BID [facility] Last Admin: 09/12/17 10:39 Dose: 800 mg Nystatin (Nystop Powder -) 1 applic TP DAILY [facility] Last Admin: 09/11/17 10:41 Dose: 1 applic Ondansetron HCl (Zofran Odt -) 4 mg SL Q6H PRN PRN Reason: NAUSEA Last Admin: 09/04/17 15:40 Dose: 4 mg Tamsulosin HCl (Flomax -) 0.4 mg PO DAILY@1730 [facility] Last Admin: 09/11/17 17:22 Dose: Not Given A/p 67 year old woman with PMhx of Chronic Respiratory failure on vent, COPD, Anemia , Afib, Hypothyrodism who presented from the [place] with fever and anemia and with hyponatremia and hypokalemia. #Acute Kidney Injury in setting of Cardiac Arrest/Hemodynamic injury to kidney Cr at 1.1 now, Baseline is 0.6 K noted to be high as well due to decreased excretion of K b/c of injury Check Urine studies keep MAP > 65 on IVF Avoid LIZETH/ARB/NSAIDs/Fleet Enemas at this time trend BUN/Cr no indication for [employer] Fernando Douglas DO Problem List - Problems (1) COPD (chronic obstructive pulmonary disease) Code(s): J44.9 - CHRONIC OBSTRUCTIVE PULMONARY DISEASE, UNSPECIFIED Qualifiers : COPD type: unspecified COPD Qualified Code(s): J44.9 - Chronic obstructive pulmonary disease, unspecified; J44.9 - Chronic obstructive pulmonary disease, unspecified; J44.9 - Chronic obstructive pulmonary disease, unspecified; J44.9 - Chronic obstructive pulmonary disease, unspecified (2) Respiratory failure Code(s): J96.90 - RESPIRATORY FAILURE, UNSP, UNSP W HYPOXIA OR HYPERCAPNIA Qualifiers: Chronicity: acute on chronic Respiratory failure complication: hypercapnia Qualified Code(s): J96.22 - Acute and chronic respiratory failure with hypercapnia; J96.22 - Acute and chronic respiratory failure with hypercapnia; J96.22 - Acute and chronic respiratory failure with hypercapnia (3) Hyponatremia Code(s): E87.1 - HYPO-OSMOLALITY AND HYPONATREMIA (4) Hypokalemia Code(s): E87.6 - HYPOKALEMIA
--- NOTE | 2017-09-12 12:24 | PN ---
Teaching Attending Note Name of Resident: Zaida Ramos ATTENDING PHYSICIAN STATEMENT I saw and evaluated the patient. I reviewed the resident's note and discussed the case with the resident. I agree with the resident's findings and plan as documented. SUBJECTIVE: Pt seen and examined in the ICU. Awake, vented on volume assist control. Fever curve trending down. OBJECTIVE: Last Vital Signs Temp Pulse Resp BP Pulse Ox 98.8 F 87 19 92/45 95 09/12/17 10:00 09/12/17 10:39 09/12/17 11:41 09/12/17 10:00 09/12/17 10:02 Intake & Output 09/10/17 09/11/17 09/11/17 09/12/17 00:59 00:59 23:59 23:59 Intake Total 703.9 Balance 703.9 Weight 87 lb 4.849 oz Gen: vented, awake Heart: RRR Lung: distant breath sounds Abd: soft, nontender Ext: +upper extremity edema CBC, BMP 09/12/17 08:10 09/12/17 08:10 Active Medications Acetaminophen (Tylenol -) 650 mg PO Q6H PRN PRN Reason: FEVER OR PAIN Last Admin: 09/12/17 02:30 Dose: 650 mg Albuterol/Ipratropium (Duoneb -) 1 amp NEB QIDR [facility] Last Admin: 09/12/17 11:03 Dose: 1 amp Digoxin (Lanoxin -) 0.125 mg PO DAILY [facility] Last Admin: 09/12/17 10:39 Dose: 0.125 mg Diltiazem HCl (Cardizem Cd -) 120 mg PO DAILY [facility] Last Admin: 09/12/17 11:36 Dose: 120 mg Heparin Sodium (Porcine) (Heparin -) 1,000 unit IVPUSH PRN PRN PRN Reason: Heparin Heparin Sodium (Porcine) (Heparin -) 5,000 unit IVPUSH PRN PRN PRN Reason: Heparin IV Flush (Picc Line Flush) 8 ml IVPUSH PRN PRN PRN Reason: Protocol Sodium Chloride (Normal Saline -) 1,000 mls @ 83 mls/hr IV ASDIR [facility] Last Admin: 09/11/17 13:00 Dose: Not Given Heparin Sodium/Dextrose (Heparin Infusion -) 500 mls @ 12 mls/hr IVPB TITR [facility] ; 600 UNITS/HR PRN Reason: Protocol Last Titration: 09/12/17 02:40 Dose: 0 units/hr Lactobacillus Acidophilus (Bacid -) 1 tab PO DAILY [facility] Last Admin: 09/12/17 10:39 Dose: 1 tab Levothyroxine Sodium (Synthroid -) 88 mcg PO DAILY@0700 [facility] Last Admin: 09/12/17 10:40 Dose: 88 mcg Magnesium Oxide (Mag-Ox -) 800 mg PO BID [facility] Last Admin: 09/12/17 10:39 Dose: 800 mg Nystatin (Nystop Powder -) 1 applic TP DAILY [facility] Last Admin: 09/11/17 10:41 Dose: 1 applic Ondansetron HCl (Zofran Odt -) 4 mg SL Q6H PRN PRN Reason: NAUSEA Last Admin: 09/04/17 15:40 Dose: 4 mg Tamsulosin HCl (Flomax -) 0.4 mg PO DAILY@1730 [facility] Last Admin: 09/11/17 17:22 Dose: Not Given ASSESSMENT AND PLAN: Acute on Chronic Hypoxic and Hypercapneic Respiratory Failure Severe COPD Paroxysmal Atrial Fibrillation with RVR LV Diastolic Dysfunction Invasive Anterior Mediastinal Mass Acute Kidney Injury HTN Hypothyroidism - for CT guided biopsy today - rate control - resume anticoagulation after biopsy - inhaled bronchodilators - continue volume assist control - spontaneous breathing trials as tolerated - PO as tolerated - DVT/GI prophylaxis - can transfer to vent floor
--- NOTE | 2017-09-12 12:26 | PN ---
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
[2017-09-12 12:56] LABS: SODIUM,RANDOM URINE < 5 MMOL/L
--- NOTE | 2017-09-12 14:24 | PN ---
Physical Exam: SUBJECTIVE: Patient seen and examined , awake; intubated on AC; for mediastinal biopsy today. no events overnight. OBJECTIVE: Vital Signs Period Temp Pulse Resp BP Sys/Parra Pulse Ox Last 24 Hr 97.7 F-98.8 F 84-139 14-24 75-143/45-111 95-100 GENERAL: The patient is awake, intubated LUNGS: decreased breath sounds HEART: Regular rate and rhythm, S1, S2 without murmur, rub or gallop. ABDOMEN: Soft, nontender, nondistended, normoactive bowel sounds, no guarding, no rebound, no hepatosplenomegaly, no masses. EXTREMITIES: 2+ pulses, warm, well-perfused, no edema. Laboratory Results - last 24 hr 09/11/17 09/11/17 09/12/17 12:02 18:44 08:10 WBC 20.5 H D RBC 3.97 D Hgb 11.7 D Hct 35.3 D MCV 89.0 MCH 29.5 MCHC 33.2 RDW 15.3 D Plt Count 409 MPV 8.4 Total Counted 100 Neutrophils % (Manual) 83 H D Lymphocytes % (Manual) 6 L D Monocytes % (Manual) 11 H Platelet Estimate Adequate PT with INR INR PTT (Actin FS) 38.2 H D Sodium Potassium Chloride Carbon Dioxide Anion Gap BUN Creatinine Random Glucose Calcium Phosphorus Magnesium Ur Random Sodium Ur Random Urea Nitrogn Urine Creatinine Blood Type O POSITIVE Antibody Screen Negative Crossmatch See Detail 09/12/17 09/12/17 09/12/17 08:10 08:10 08:10 WBC RBC Hgb Hct MCV MCH MCHC RDW Plt Count MPV Total Counted Neutrophils % (Manual) Lymphocytes % (Manual) Monocytes % (Manual) Platelet Estimate PT with INR 16.60 H INR 1.47 H PTT (Actin FS) 29.1 Sodium 134 L Potassium 4.1 Chloride 100 Carbon Dioxide 20 L Anion Gap 14 BUN 29 H D Creatinine 1.1 H D Random Glucose 149 H Calcium 7.0 L Phosphorus 5.2 H Magnesium 2.5 H D Ur Random Sodium Ur Random Urea Nitrogn Urine Creatinine Blood Type Antibody Screen Crossmatch 09/12/17 12:00 WBC RBC Hgb Hct MCV MCH MCHC RDW Plt Count MPV Total Counted Neutrophils % (Manual) Lymphocytes % (Manual) Monocytes % (Manual) Platelet Estimate PT with INR INR PTT (Actin FS) Sodium Potassium Chloride Carbon Dioxide Anion Gap BUN Creatinine Random Glucose Calcium Phosphorus Magnesium Ur Random Sodium < 5 Ur Random Urea Nitrogn 206 Urine Creatinine 110.0 Blood Type Antibody Screen Crossmatch Active Medications Generic Name Dose Route Start Last Admin Trade Name Freq PRN Reason Stop Dose Admin Acetaminophen 650 mg 08/27/17 17:36 09/12/17 02:30 Tylenol - PO 650 mg Q6H PRN Administration FEVER OR PAIN Albuterol/Ipratropium 1 amp 08/24/17 18:00 09/12/17 11:03 Duoneb - NEB 1 amp QIDR [facility] Administration Digoxin 0.125 mg 09/08/17 15:30 09/12/17 10:39 Lanoxin - PO 0.125 mg DAILY [facility] Administration Diltiazem HCl 120 mg 09/12/17 10:30 09/12/17 11:36 Cardizem Cd - PO 120 mg DAILY [facility] Administration Heparin Sodium (Porcine) 1,000 unit 09/11/17 16:46 Heparin - IVPUSH PRN PRN Heparin Heparin Sodium (Porcine) 5,000 unit 09/11/17 16:46 Heparin - IVPUSH PRN PRN Heparin IV Flush 8 ml 08/30/17 11:52 Picc Line Flush IVPUSH PRN PRN Protocol Sodium Chloride 1,000 mls @ 83 mls/hr 09/10/17 13:00 09/11/17 13:00 Normal Saline - IV Not Given ASDIR [facility] Heparin Sodium/Dextrose 500 mls @ 12 mls/hr 09/11/17 17:00 09/12/17 02:40 Heparin Infusion - IVPB 0 units/hr TITR [facility] Titration Protocol 600 UNITS/HR Lactobacillus Acidophilus 1 tab 08/13/17 10:00 09/12/17 10:39 Bacid - PO 1 tab DAILY [facility] Administration Levothyroxine Sodium 88 mcg 08/30/17 07:00 09/12/17 10:40 Synthroid - PO 88 mcg DAILY@0700 [facility] Administration Magnesium Oxide 800 mg 09/07/17 17:05 09/12/17 10:39 Mag-Ox - PO 800 mg BID [facility] Administration Nystatin 1 applic 08/16/17 14:00 09/11/17 10:41 Nystop Powder - TP 1 applic DAILY [facility] Administration Ondansetron HCl 4 mg 09/04/17 15:12 09/04/17 15:40 Zofran Odt - SL 4 mg Q6H PRN Administration NAUSEA Tamsulosin HCl 0.4 mg 08/23/17 17:30 09/11/17 17:22 Flomax - PO Not Given DAILY@1730 [facility] ASSESSMENT/PLAN: 67 year old male with COPD, CH, Afib, hyothyroidism, hx, c diff, htn, chronic respiratory failure on mech vent, presented with fever of unknown origin, suspect tumor related, anterior mediastinal mass. #Neuro: -awake; intubated #Respiratory: -hx of chronic respiratory failure; intubated -COPD with acute on chronic hypoxic/hyperapneic respiratory failure with trach -duonebs prn #cardiovascular: -diastolic LV dysfunciton with class I NYHA LV CHF, compensated -HTN controlled -paroxsymal atrial fibrillation. MAT; [id number] 4; currently on hep drip pre biopsy; can re start eliquis after biopsy -cardizem 120 po daily; cont digoxin qd #ID: -Fever of unknown origin poss sec to lymphoma ? -trend; repeat cx if persists -monitor off antibiotics -hx vre; hx of c diff; isolation precautions -ID following #endocrine: -hypothyroid ; cont levothyroxine #renal: -alec -appreciate renal #hematology/oncology -anemia; s/p transfusion -f/u cbc -mediastinal lymph node biopsy today FEN Fluids; gentle hydration electrolytes: wnl diet: npo for procedure VTE: on hep GI; protonix Disposition: transfer to [facility] surg Visit type - Emergency Visit Emergency Visit: Yes ED Registration Date: 08/12/17 Care time: The patient presented to the Emergency Department on the above date and was hospitalized for further evaluation of their emergent condition. - New Patient This patient is new to me today: Yes Date on this admission: 09/12/17 - Critical Care Critical Care patient: Yes Total Critical Care Time (in minutes): 35 Critical Care Statement: The care of this patient involved high complexity decision making to prevent further life threatening deterioration of the patient 's condition and/or to evaluate & treat vital organ system(s) failure or risk of failure.
[2017-09-12] MEDS: SODIUM CHLORIDE 1,000 ML IV SCH ×3 (15:30→20:56)
[2017-09-12] MEDS ORDERED: SODIUM CHLORIDE 500 ML IV STA ×2 (17:39→19:53)
[2017-09-12] MEDS: TAMSULOSIN HCL 0.4 MG CAP.ER.24H (FP) PO SCH (18:45)
--- NOTE | 2017-09-12 20:02 | PN ---
Progress Note (short form) - Note Progress Note: BP 80/60. urine output 80ml over whole day. [place] is 130. cvs s1s2 normal. chest b/l air entry present. Elida got cardiazem and digoxin but HR is still high with low BP. Will give her IV bolus. Start her on amiadarone drip. Start her back on heparin drip. discussed with Dr. Alexander
[2017-09-12] MEDS: HEPARIN INFUSION - 500 ML IVPB SCH (20:56)
[2017-09-12 21:15] LABS: MCH 30.4 pg (25.7-33.7); MCHC 33.7 g/dl (32.0-36.0); MEAN CELL VOLUME 90.1 fl (80-96); MEAN PLT VOLUME 9.4 fl (7.5-11.1); PLATELET COUNT 379 K/MM3 (134-434); RDW 15.6 % (11.6-15.6); WHITE BLOOD COUNT 15.1 K/mm3 (4.0-10.0)
--- NOTE | 2017-09-12 22:05 | EKG ---
Test Reason : Blood Pressure : / mmHG Vent. Rate : 141 BPM Atrial Rate : 141 BPM P-R Int : 134 ms QRS Dur : 094 ms QT Int : 286 ms P-R-T Axes : 064 -61 106 degrees QTc Int : 438 ms SINUS TACHYCARDIA WITH PREMATURE VENTRICULAR COMPLEXES OR FUSION COMPLEXES AND PREMATURE ATRIAL COMPLEXES LEFT AXIS DEVIATION LOW VOLTAGE QRS INFERIOR INFARCT , AGE UNDETERMINED CANNOT RULE OUT ANTEROSEPTAL INFARCT , AGE UNDETERMINED T WAVE ABNORMALITY, CONSIDER LATERAL ISCHEMIA ABNORMAL ECG WHEN COMPARED WITH ECG OF 12-AUG-2017 18:19, PREMATURE VENTRICULAR COMPLEXES AND PREMATURE ATRIAL COMPLEXES ARE NOW PRESENT CRITERIA FOR INFERIOR INFARCT IS NOW PRESENT POSSIBLE CRITERIA FOR ANTEROSEPTAL INFARCT IS NOW PRESENT Confirmed by KODY DE LA CRUZ MD ([id number]) on 09/12/2017 10:05:25 PM Referred By: Confirmed By:KODY DE LA CRUZ MD
[2017-09-13] MEDS ORDERED: AMIODARONE HCL INJECTION 450 MG in DEXTROSE 5%-WATER - 241 ML IVPB SCH (02:00)
[2017-09-13] MEDS: LEVOTHYROXINE NA 88 MCG TABLET (FP) PO SCH (06:22)
[2017-09-13] MEDS: ALBUTEROL SO4 2.5/IPRATROPIUM 0.5 INH SOL 3 ML VIAL.NEB. NEB SCH ×2 (06:30→12:13)
--- NOTE | 2017-09-13 06:50 | PN ---
Progress Note (short form) - Note Progress Note: Chief Complaint: Events noted, notes reviewed, awake and alert, post resuscitation, remains in probably atrial fibrillation with periods of rapid ventricular response, on Amiodarone drip History of Present Illness: Seen and examined in the ICU. Events noted, notes reviewed, awake and alert, post resuscitation, remains in probably atrial fibrillation with periods of rapid ventricular response, on Amiodarone drip Medications: Current Medications Acetaminophen (Tylenol -) 650 mg PO Q6H PRN PRN Reason: FEVER OR PAIN Last Admin: 09/12/17 02:30 Dose: 650 mg Albuterol/Ipratropium (Duoneb -) 1 amp NEB QIDR [facility] Last Admin: 09/12/17 23:33 Dose: 1 amp Heparin Sodium (Porcine) (Heparin -) 1,000 unit IVPUSH PRN PRN PRN Reason: Heparin Heparin Sodium (Porcine) (Heparin -) 5,000 unit IVPUSH PRN PRN PRN Reason: Heparin IV Flush (Picc Line Flush) 8 ml IVPUSH PRN PRN PRN Reason: Protocol Sodium Chloride (Normal Saline -) 1,000 mls @ 83 mls/hr IV ASDIR [facility] Last Admin: 09/12/17 20:56 Dose: 83 mls/hr Heparin Sodium/Dextrose (Heparin Infusion -) 500 mls @ 12 mls/hr IVPB TITR [facility] ; 600 UNITS/HR PRN Reason: Protocol Last Titration: 09/13/17 03:48 Dose: 900 units/hr Amiodarone HCl 450 mg/ (Dextrose) 250 mls @ 16.66 mls/hr IVPB TITR [facility]; 0.5 MG/ MIN PRN Reason: Protocol Last Admin: 09/13/17 02:00 Dose: 16.66 mls/hr Lactobacillus Acidophilus (Bacid -) 1 tab PO DAILY [facility] Last Admin: 09/12/17 10:39 Dose: 1 tab Levothyroxine Sodium (Synthroid -) 88 mcg PO DAILY@0700 [facility] Last Admin: 09/13/17 06:22 Dose: 88 mcg Magnesium Oxide (Mag-Ox -) 800 mg PO BID [facility] Last Admin: 09/12/17 21:00 Dose: 800 mg Nystatin (Nystop Powder -) 1 applic TP DAILY [facility] Last Admin: 09/12/17 11:00 Dose: 1 applic Ondansetron HCl (Zofran Odt -) 4 mg SL Q6H PRN PRN Reason: NAUSEA Last Admin: 09/04/17 15:40 Dose: 4 mg Tamsulosin HCl (Flomax -) 0.4 mg PO DAILY@1730 [facility] Last Admin: 09/12/17 18:45 Dose: Not Given Review of Systems: Unable to obtain Vital Signs: Last Vital Signs Temp Pulse Resp BP Pulse Ox 98.2 F 110 H 20 81/50 100 09/13/17 06:00 09/13/17 06:00 09/13/17 06:00 09/13/17 06:00 09/12/17 14:47 Intake & Output 09/11/17 09/11/17 09/12/17 09/13/17 00:59 23:59 23:59 23:59 Intake Total 2249.9 1411 Output Total 130 100 Balance 2119.9 1311 Weight 87 lb 4.849 oz Constitutional: No Distress, Calm Neck: Supple Negative JVD No Bruit Respiratory: Bilateral Scattered Rhonchi Cardiovascular: S1 S2 Irregularly Irregular Gastrointestinal: Soft Benign Normal Bowel Sounds Ext: No Edema Labs: CBC, BMP 09/12/17 20:30 09/12/17 08:10 Hepatic Panel Total Bilirubin 0.7 mg/dL (0.2-1.0) D 09/11/17 06:35 AST 45 U/L (15-37) H D 09/11/17 06:35 ALT 9 U/L (12-78) L 09/11/17 06:35 Alkaline Phosphatase 97 U/L (45-117) 09/11/17 06:35 Albumin 2.4 g/dl (3.4-5.0) L 09/11/17 06:35 Blood test from this AM pending Assessment/Plan ASSESSMENT: 1. Post resuscitation with paroxysmal Atrial Fibrillation/atrial tachycardia on Amiodarone and Heparin off of NOAC's, [id number] score of 4 2. COPD with acute on chronic hypoxic/hypercapneic respiratory failure post tracheostomy, on ventilator 3. Diastolic LV dysfunction with class I NYHA classification LV congestive heart failure, compensated/euvolemic 4. HTN, currently hypotensive 5. Hypothyroidism 6. History of C. Difficile Colitis 7. Acute renal insufficiency 8. Anemia post transfusion PLAN: 1. Continue Heparin 2. Continue IV Amiodarone 3. Cardizem IV to assist with rate control, blood pressure permitting, continue in conjunction with Amiodarone 4. IV fluids NS to 150 cc/Hour 5. EKG this AM Kristi marsh
[2017-09-13] MEDS ORDERED: DILTIAZEM INJECTION 125 MG in DEXTROSE 5%-WATER - 100 ML IVPB SCH ×2 (07:15→07:30)
[2017-09-13] MEDS: SODIUM CHLORIDE 1,000 ML IV SCH (07:20)
--- NOTE | 2017-09-13 08:10 | PN ---
Progress Note, Physician - Current Medication List Current Medications: Active Medications Acetaminophen (Tylenol -) 650 mg PO Q6H PRN PRN Reason: FEVER OR PAIN Last Admin: 09/12/17 02:30 Dose: 650 mg Albuterol/Ipratropium (Duoneb -) 1 amp NEB QIDR [facility] Last Admin: 09/13/17 06:30 Dose: Not Given Heparin Sodium (Porcine) (Heparin -) 1,000 unit IVPUSH PRN PRN PRN Reason: Heparin Heparin Sodium (Porcine) (Heparin -) 5,000 unit IVPUSH PRN PRN PRN Reason: Heparin IV Flush (Picc Line Flush) 8 ml IVPUSH PRN PRN PRN Reason: Protocol Heparin Sodium/Dextrose (Heparin Infusion -) 500 mls @ 12 mls/hr IVPB TITR [facility] ; 600 UNITS/HR PRN Reason: Protocol Last Titration: 09/13/17 03:48 Dose: 900 units/hr Amiodarone HCl 450 mg/ (Dextrose) 250 mls @ 16.66 mls/hr IVPB TITR [facility]; 0.5 MG/ MIN PRN Reason: Protocol Last Admin: 09/13/17 02:00 Dose: 16.66 mls/hr Sodium Chloride (Normal Saline -) 1,000 mls @ 150 mls/hr IV ASDIR [facility] Diltiazem HCl 125 mg/ Dextrose 125 mls @ 5 mls/hr IVPB TITR [facility]; 5 MG/HR PRN Reason: Protocol Lactobacillus Acidophilus (Bacid -) 1 tab PO DAILY [facility] Last Admin: 09/12/17 10:39 Dose: 1 tab Levothyroxine Sodium (Synthroid -) 88 mcg PO DAILY@0700 [facility] Last Admin: 09/13/17 06:22 Dose: 88 mcg Magnesium Oxide (Mag-Ox -) 800 mg PO BID [facility] Last Admin: 09/12/17 21:00 Dose: 800 mg Nystatin (Nystop Powder -) 1 applic TP DAILY [facility] Last Admin: 09/12/17 11:00 Dose: 1 applic Ondansetron HCl (Zofran Odt -) 4 mg SL Q6H PRN PRN Reason: NAUSEA Last Admin: 09/04/17 15:40 Dose: 4 mg Tamsulosin HCl (Flomax -) 0.4 mg PO DAILY@1730 [facility] Last Admin: 09/12/17 18:45 Dose: Not Given - Objective Vital Signs: Vital Signs Temperature 98.2 F 09/13/17 06:00 Pulse Rate 110 H 09/13/17 06:00 Respiratory Rate 19 09/13/17 06:30 Blood Pressure 81/50 09/13/17 06:00 O2 Sat by Pulse Oximetry (%) 100 09/12/17 14:47 Cardiovascular: Yes: Pulse Irregular, S1, S2 Respiratory: Yes: Mechanically Ventilated, Rhonchi, Wheezes Gastrointestinal: Yes: Normal Bowel Sounds, Soft Edema: No Labs: CBC, BMP 09/12/17 20:30 09/12/17 08:10 INR, PTT INR 1.47 (0.82-1.09) H 09/12/17 08:10 Fibrinogen 532.0 mg/dL (238-498) H 09/10/17 11:30 Assessment/Plan - Problems (1) Mediastinal mass Assessment/Plan: patient wants biopsy s/p biopsy on 09/12 Code(s): J98.59 - OTHER DISEASES OF MEDIASTINUM, NOT ELSEWHERE CLASSIFIED (2) Fever Assessment/Plan: afebrile fever resolved iv abx stopped diarrhea - po flagyl for c diff- completed course - resolved cultures so far negative Microbiology 08/25/17 10:27 Blood - Peripheral Venous Blood Culture - Preliminary NO GROWTH OBTAINED AFTER 24 HOURS, INCUBATION TO CONTINUE FOR 4 DAYS. 08/25/17 10:27 Blood - Peripheral Venous Blood Culture - Preliminary NO GROWTH OBTAINED AFTER 24 HOURS, INCUBATION TO CONTINUE FOR 4 DAYS. fever ?secondary to mass- unclear but will give iv abx for now d/w sister lianne in detail about this new development and weight loss and decline in health Microbiology 08/23/17 08:30 Stool Clostridium difficile Antigen (TEDDY) - Final 08/23/17 08:30 Stool Clostridium difficile Toxin Assay - Final Code(s): R50.9 - FEVER, UNSPECIFIED Qualifiers: Fever type: unspecified Qualified Code(s): R50.9 - Fever, unspecified; R50.9 - Fever, unspecified (3) A-fib Assessment/Plan: tacyhcardia started on amiodarone drip--hr 90's now seen by cardio-Cardizem added heparin drip Code(s): I48.91 - UNSPECIFIED ATRIAL FIBRILLATION Qualifiers: Atrial fibrillation type: paroxysmal Qualified Code(s): I48.0 - Paroxysmal atrial fibrillation; I48.0 - Paroxysmal atrial fibrillation; I48.0 - Paroxysmal atrial fibrillation; I48.0 - Paroxysmal atrial fibrillation (4) Acute on chronic respiratory failure with hypoxia and hypercapnia Assessment/Plan: A/C mode fio2 40% vent support bronchodilators chest ct noted for soft tissue mass- biopsy by IR heparin drip on hold npo Code(s): J96.21 - ACUTE AND CHRONIC RESPIRATORY FAILURE WITH HYPOXIA J96.22 - ACUTE AND CHRONIC RESPIRATORY FAILURE WITH HYPERCAPNIA (5) Diastolic heart failure Assessment/Plan: no signs of volume overload cardio on board Code(s): I50.30 - UNSPECIFIED DIASTOLIC (CONGESTIVE) HEART FAILURE Qualifiers : Heart failure chronicity: chronic Qualified Code(s): I50.32 - Chronic diastolic (congestive) heart failure; I50.32 - Chronic diastolic ( congestive) heart failure; I50.32 - Chronic diastolic (congestive) heart failure ; I50.32 - Chronic diastolic (congestive) heart failure (6) Anemia Assessment/Plan: stable h/h s/p prbc on 09/11 awaite repeat Code(s): D64.9 - ANEMIA, UNSPECIFIED Qualifiers: Anemia type: unspecified type Qualified Code(s): D64.9 - Anemia, unspecified; D64.9 - Anemia, unspecified (7) Diarrhea Assessment/Plan: on flagyl - course done/ improved Code(s): R19.7 - DIARRHEA, UNSPECIFIED Qualifiers: Diarrhea type: unspecified type Qualified Code(s): R19.7 - Diarrhea , unspecified; R19.7 - Diarrhea, unspecified (8) Hypokalemia due to loss of potassium Assessment/Plan: K is ok l Code(s): E87.6 - HYPOKALEMIA (9) Decrease in appetite Assessment/Plan: Per pt sister last week she said no feeding tube flagyl course completed Code(s): R63.0 - ANOREXIA (10) Hypothyroid Assessment/Plan: synthroid po tsh noted Code(s): E03.9 - HYPOTHYROIDISM, UNSPECIFIED Qualifiers: Hypothyroidism type: unspecified Qualified Code(s): E03.9 - Hypothyroidism, unspecified; E03.9 - Hypothyroidism, unspecified; E03.9 - Hypothyroidism, unspecified
[2017-09-13] MEDS: ACETAMINOPHEN 650 MG/20.3 ML ORAL SOLUTION (CUPS) PO PRN (10:45)
[2017-09-13] MEDS: LACTOBACILLUS ACIDOPHILUS 1 EACH TAB (FP) PO SCH (10:45)
[2017-09-13] MEDS: MAGNESIUM OXIDE 400 MG TABLET (FP) PO SCH ×2 (10:46→22:24)
[2017-09-13] MEDS: APIXABAN 2.5 MG TABLET PO SCH ×2 (10:46→22:24)
[2017-09-13] MEDS: NYSTATIN POWDER 100,000 UNITS/GM - 15 GM TOPICAL POWDER TP SCH (10:46)
--- NOTE | 2017-09-13 10:53 | PN ---
Progress Note (short form) - Note Progress Note: seen and examined, chart reviewed in detail. Constitutional: Yes: No Distress, Calm, Other (On vent vai ET tube) Eyes: Yes: Conjunctiva Clear HENT: Yes: Atraumatic Neck: Yes: Supple Cardiovascular: Yes: Iregular Rate and Rhythm Respiratory: Yes: Regular, Other (Course BS) Gastrointestinal: Yes: Normal Bowel Sounds, Soft. No: Tenderness Last Vital Signs Temp Pulse Resp BP Pulse Ox 97.7 F 112 H 16 80/44 97 09/10/17 03:00 09/10/17 12:00 09/10/17 12:00 09/10/17 12:00 09/10/17 11:31 09/10/17 11:30 09/10/17 11:30 Current Medications Generic Name Dose Route Start Last Admin Trade Name Freq PRN Reason Stop Dose Admin Acetaminophen 650 mg 08/27/17 17:36 09/09/17 20:05 Tylenol - PO 650 mg Q6H PRN Administration FEVER OR PAIN Albuterol/Ipratropium 1 amp 08/24/17 18:00 09/10/17 11:32 Duoneb - NEB 1 amp QIDR [facility] Administration Apixaban 5 mg 08/19/17 15:30 09/10/17 12:28 Eliquis - PO Not Given BID [facility] Digoxin 0.125 mg 09/08/17 15:30 09/10/17 10:02 Lanoxin - PO 0.125 mg DAILY [facility] Administration Diltiazem HCl 240 mg 09/10/17 10:00 Cardizem Cd - PO DAILY [facility] Heparin Sodium (Porcine) 5,000 unit 09/09/17 22:00 09/10/17 10:02 Heparin - SQ 5,000 unit BID [facility] Administration Heparin Sodium (Porcine) 1,000 unit 09/10/17 12:55 Heparin - IVPUSH PRN PRN Heparin Heparin Sodium (Porcine) 5,000 unit 09/10/17 12:55 Heparin - IVPUSH PRN PRN Heparin IV Flush 8 ml 08/30/17 11:52 Picc Line Flush IVPUSH PRN PRN Protocol Heparin Sodium (Porcine) 25, 500 mls @ 16 mls/hr 09/10/17 13:00 000 unit/ Sodium Chloride IV TITR [facility] Protocol 800 UNIT/HR Sodium Chloride 1,000 mls @ 83 mls/hr 09/10/17 13:00 Normal Saline - IV ASDIR [facility] Lactobacillus Acidophilus 1 tab 08/13/17 10:00 09/10/17 10:02 Bacid - PO 1 tab DAILY [facility] Administration Levothyroxine Sodium 88 mcg 08/30/17 07:00 09/10/17 06:07 Synthroid - PO 88 mcg DAILY@0700 [facility] Administration Magnesium Oxide 800 mg 09/07/17 17:05 09/10/17 10:02 Mag-Ox - PO 800 mg BID [facility] Administration Nystatin 1 applic 08/16/17 14:00 09/10/17 10:20 Nystop Powder - TP 1 applic DAILY [facility] Administration Ondansetron HCl 4 mg 09/04/17 15:12 09/04/17 15:40 Zofran Odt - SL 4 mg Q6H PRN Administration NAUSEA Potassium Chloride 40 meq 09/04/17 10:00 09/10/17 10:04 Potassium Chloride Oral Liquid PO 40 meq DAILY [facility] Administration Tamsulosin HCl 0.4 mg 08/23/17 17:30 09/09/17 17:27 Flomax - PO 0.4 mg DAILY@1730 [facility] Administration 67 year old woman with PMhx of Chronic Respiratory failure on vent, COPD, Anemia , Afib, Hypothyrodism who presented from the ID with fever and anemia .Also c.diff/UTI CT chest showed 5cm sup. mediastinal mass encroaching SVC and destroying the sternum---? lung vs lymphoma vs thymoma. In ICU for rate control. On amio drip s/p Biopsy on 09/11 will wait for results. will need to discuss based upon results.
[2017-09-13 11:08] LABS: MCH 29.9 pg (25.7-33.7); MCHC 32.6 g/dl (32.0-36.0); MEAN CELL VOLUME 91.8 fl (80-96); MEAN PLT VOLUME 8.6 fl (7.5-11.1); PLATELET COUNT 266 K/MM3 (134-434); RDW 15.7 % (11.6-15.6); WHITE BLOOD COUNT 13.3 K/mm3 (4.0-10.0)
--- NOTE | 2017-09-13 11:25 | PN ---
Teaching Attending Note Name of Resident: Zaida Ramos ATTENDING PHYSICIAN STATEMENT I saw and evaluated the patient. I reviewed the resident's note and discussed the case with the resident. I agree with the resident's findings and plan as documented. SUBJECTIVE: Pt seen and examined in the ICU. s/p CT guided needle biopsy of mediastinal mass. Restarted on amiodarone gtt with good rate control. Vented on volume assist control. OBJECTIVE: Last Vital Signs Temp Pulse Resp BP Pulse Ox 97.4 F L 94 H 17 100/45 100 09/13/17 10:00 09/13/17 10:00 09/13/17 10:00 09/13/17 10:00 09/13/17 09:38 Intake & Output 09/11/17 09/11/17 09/12/17 09/13/17 00:59 23:59 23:59 23:59 Intake Total 2249.9 1411 Output Total 130 150 Balance 2119.9 1261 Weight 87 lb 4.849 oz 92 lb 13.034 oz Gen: vented, awake Heart: irregular Lung: distant breath sounds Abd: soft, nontender Ext: upper extremity edema CBC, BMP 09/13/17 10:55 Active Medications Acetaminophen (Tylenol -) 650 mg PO Q6H PRN PRN Reason: FEVER OR PAIN Last Admin: 09/12/17 02:30 Dose: 650 mg Acetaminophen (Tylenol Oral Solution -) 650 mg PO Q4H PRN PRN Reason: FEVER OR PAIN Last Admin: 09/13/17 10:45 Dose: 650 mg Albuterol/Ipratropium (Duoneb -) 1 amp NEB QIDR [facility] Last Admin: 09/13/17 06:30 Dose: Not Given Apixaban (Eliquis -) 5 mg PO BID [facility] Last Admin: 09/13/17 10:46 Dose: 5 mg IV Flush (Picc Line Flush) 8 ml IVPUSH PRN PRN PRN Reason: Protocol Amiodarone HCl 450 mg/ (Dextrose) 250 mls @ 16.66 mls/hr IVPB TITR [facility]IE; 0.5 MG/ MIN PRN Reason: Protocol Last Admin: 09/13/17 02:00 Dose: 16.66 mls/hr Sodium Chloride (Normal Saline -) 1,000 mls @ 150 mls/hr IV ASDIR [facility] Last Admin: 09/13/17 07:20 Dose: 150 mls/hr Diltiazem HCl 125 mg/ Dextrose 125 mls @ 5 mls/hr IVPB TITR [facility]; 5 MG/HR PRN Reason: Protocol Lactobacillus Acidophilus (Bacid -) 1 tab PO DAILY [facility] Last Admin: 09/13/17 10:45 Dose: 1 tab Levothyroxine Sodium (Synthroid -) 88 mcg PO DAILY@0700 [facility] Last Admin: 09/13/17 06:22 Dose: 88 mcg Magnesium Oxide (Mag-Ox -) 800 mg PO BID [facility] Last Admin: 09/13/17 10:46 Dose: 800 mg Nystatin (Nystop Powder -) 1 applic TP DAILY [facility] Last Admin: 09/13/17 10:46 Dose: 1 applic Ondansetron HCl (Zofran Odt -) 4 mg SL Q6H PRN PRN Reason: NAUSEA Last Admin: 09/04/17 15:40 Dose: 4 mg Tamsulosin HCl (Flomax -) 0.4 mg PO DAILY@1730 [facility] Last Admin: 09/12/17 18:45 Dose: Not Given ASSESSMENT AND PLAN: Acute on Chronic Hypoxic and Hypercapneic Respiratory Failure Severe COPD Paroxysmal Atrial Fibrillation with RVR LV Diastolic Dysfunction Invasive Anterior Mediastinal Mass Acute Kidney Injury HTN Hypothyroidism - f/u biopsy - rate control, complete amiodarone load then convert to PO - resume anticoagulation, can start oral - inhaled bronchodilators - continue volume assist control - spontaneous breathing trials as tolerated - PO as tolerated - DVT/GI prophylaxis - continue discussions regarding goals of care as pt with aggressive tumor with poor functional status - can transfer to vent floor once off amiodarone gtt
[2017-09-13 11:58] LABS: ALBUMIN 1.3 g/dl (3.4-5.0); ANION GAP 11 (8-16); BILIRUBIN,TOTAL 0.4 mg/dL (0.2-1.0); CO2 15 mmol/L (21-32); CREATININE 0.4 mg/dL (0.55-1.02); GLUCOSE,RANDOM 171 mg/dL (74-106); MAGNESIUM 1.6 mg/dL (1.8-2.4); PHOSPHOROUS 2.2 mg/dL (2.5-4.9); SGOT/AST 229 U/L (15-37); SGPT/ALT 51 U/L (12-78); TOT PROT 3.2 g/dl (6.4-8.2)
[2017-09-13 11:59] LABS: ALK PHOS 68 U/L (45-117)
[2017-09-13 12:15] LABS: CALCIUM < 5.0 mg/dL (8.5-10.1)
[2017-09-13] MEDS ORDERED: POTASSIUM CHLORIDE ORAL LIQUID 20 MEQ/15 ML PO ONE (12:15)
[2017-09-13] MEDS ORDERED: CALCIUM GLUCONATE 10% - 1,000 MG/10 ML VIAL IVPUSH ONE (12:16)
[2017-09-13] MEDS ORDERED: CALCIUM CARBONATE SUSPENSION - 500 MG/5 ML ML PO ONE (12:45)
--- NOTE | 2017-09-13 13:24 | PN ---
Physical Exam: SUBJECTIVE: Patient seen and examined c/o body pain this am. S/p mediastinal lymph node biopsy. Was started on amiodarone drip last night tierney to tachycardia. [facility] OBJECTIVE: Vital Signs Period Temp Pulse Resp BP Sys/Parra Pulse Ox Last 24 Hr 97.4 F-98.6 F 83-114 12-22 81-108/45-61 96-100 GENERAL: The patient is awake, alert, on vent sitting up in bed. ENT:ET tube in place NECK: EJ; not flushing; pain with palpation of neck LUNGS: coarse breath sounds HEART: Regular rate and rhythm, S1, S2 without murmur, rub or gallop. ABDOMEN: Soft, nontender, nondistended, normoactive bowel sounds, no guarding, no rebound, no hepatosplenomegaly, no masses. EXTREMITIES: 2+ pulses, warm, well-perfused, no edema. CBC, BMP 09/13/17 10:55 09/13/17 10:55 Active Medications Generic Name Dose Route Start Last Admin Trade Name Freq PRN Reason Stop Dose Admin Acetaminophen 650 mg 08/27/17 17:36 09/12/17 02:30 Tylenol - PO 650 mg Q6H PRN Administration FEVER OR PAIN Acetaminophen 650 mg 09/13/17 10:32 09/13/17 10:45 Tylenol Oral Solution - PO 650 mg Q4H PRN Administration FEVER OR PAIN Albuterol/Ipratropium 1 amp 08/24/17 18:00 09/13/17 12:13 Duoneb - NEB 1 amp QIDR [facility] Administration Apixaban 5 mg 09/13/17 11:00 09/13/17 10:46 Eliquis - PO 5 mg BID [facility] Administration IV Flush 8 ml 08/30/17 11:52 Picc Line Flush IVPUSH PRN PRN Protocol Amiodarone HCl 450 mg/ 250 mls @ 16.66 mls/hr 09/13/17 02:00 09/13/17 02:00 Dextrose IVPB 16.66 mls/hr TITR [facility] Administration Protocol 0.5 MG/MIN Sodium Chloride 1,000 mls @ 150 mls/hr 09/13/17 07:14 09/13/17 07:20 Normal Saline - IV 150 mls/hr ASDIR [facility] Administration Diltiazem HCl 125 mg/ Dextrose 125 mls @ 5 mls/hr 09/13/17 07:30 IVPB TITR [facility] Protocol 5 MG/HR Lactobacillus Acidophilus 1 tab 08/13/17 10:00 09/13/17 10:45 Bacid - PO 1 tab DAILY [facility] Administration Levothyroxine Sodium 88 mcg 08/30/17 07:00 09/13/17 06:22 Synthroid - PO 88 mcg DAILY@0700 [facility] Administration Magnesium Oxide 800 mg 09/07/17 17:05 09/13/17 10:46 Mag-Ox - PO 800 mg BID [facility] Administration Nystatin 1 applic 08/16/17 14:00 09/13/17 10:46 Nystop Powder - TP 1 applic DAILY [facility] Administration Ondansetron HCl 4 mg 09/04/17 15:12 09/04/17 15:40 Zofran Odt - SL 4 mg Q6H PRN Administration NAUSEA Potassium Chloride 40 meq 09/13/17 16:00 K-Dur - PO 09/13/17 16:01 ONCE ONE Tamsulosin HCl 0.4 mg 08/23/17 17:30 09/12/17 18:45 Flomax - PO Not Given DAILY@1730 [facility] ASSESSMENT/PLAN: 67 year old male with COPD, CH, Afib, hyothyroidism, hx, c diff, htn, chronic respiratory failure on mech vent, presented with fever of unknown origin, suspect tumor related, anterior mediastinal mass. #Neuro: -awake; intubated -able to mouth words/wants #Respiratory: -hx of chronic respiratory failure; intubated -COPD with acute on chronic hypoxic/hyperapneic respiratory failure with trach -duonebs prn #cardiovascular: -diastolic LV dysfunciton with class I NYHA LV CHF, compensated -HTN controlled -paroxsymal atrial fibrillation. MAT; [id number]; currently in NSR -continue loading dose of amiodarone -start amiodarone 200mg po bid -start lopressor 25mg po bid hold if HR<90 or systolic bp <60 -d/c heparin drip can restart eliquis 5mg po bid #ID: -Fever of unknown origin poss sec to lymphoma ? -trend; repeat cx if persists -monitor off antibiotics -hx vre; hx of c diff; isolation precautions -ID following #endocrine: -hypothyroid ; cont levothyroxine #renal: -alec -ivf hydration -appreciate renal #hematology/oncology -anemia; s/p transfusion -f/u cbc -invasive anterior mediastinal lymph node biopsy #hypokalemia: -replete ; potassium cl oral solution 40meq #hypocalemia -replete; FEN Fluids; gentle hydration electrolytes: as above; replace; f/u labs diet: chopped VTE: on hep GI; protonix Disposition: transfer to [facility] surg after amiodarone loading dose is completed; palliative and ethics consulted regarding goals of care Problem List - Problems (1) Anticoagulant long-term use Code(s): Z79.01 - 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 (CURRENT) USE OF ANTICOAGULANTS (2) Fever Code(s): R50.9 - FEVER, UNSPECIFIED Qualifiers: Fever type: unspecified Qualified Code(s): R50.9 - Fever, unspecified; R50.9 - Fever, unspecified (3) Hypokalemia Code(s): E87.6 - HYPOKALEMIA (4) Mediastinal mass Code(s): J98.59 - OTHER DISEASES OF MEDIASTINUM, NOT ELSEWHERE CLASSIFIED (5) Multifocal atrial tachycardia Code(s): I47.1 - SUPRAVENTRICULAR TACHYCARDIA (6) Neoplasm of mediastinum Code(s): D49.89 - NEOPLASM OF UNSPECIFIED BEHAVIOR OF OTHER SPECIFIED SITES (7) Sacral decubitus ulcer, stage II Code(s): L89.152 - PRESSURE ULCER OF SACRAL REGION, STAGE 2 (8) Systemic inflammatory response syndrome (SIRS) Code(s): R65.10 - SIRS OF NON-INFECTIOUS ORIGIN W/O ACUTE ORGAN DYSFUNCTION (9) A-fib Code(s): I48.91 - UNSPECIFIED ATRIAL FIBRILLATION Qualifiers: Atrial fibrillation type: paroxysmal Qualified Code(s): I48.0 - Paroxysmal atrial fibrillation; I48.0 - Paroxysmal atrial fibrillation; I48.0 - Paroxysmal atrial fibrillation; I48.0 - Paroxysmal atrial fibrillation (10) Acute renal failure Code(s): N17.9 - ACUTE KIDNEY FAILURE, UNSPECIFIED (11) Diastolic heart failure Code(s): I50.30 - UNSPECIFIED DIASTOLIC (CONGESTIVE) HEART FAILURE Qualifiers : Heart failure chronicity: chronic Qualified Code(s): I50.32 - Chronic diastolic (congestive) heart failure; I50.32 - Chronic diastolic ( congestive) heart failure; I50.32 - Chronic diastolic (congestive) heart failure ; I50.32 - Chronic diastolic (congestive) heart failure (12) Hypothyroid Code(s): E03.9 - HYPOTHYROIDISM, UNSPECIFIED Qualifiers: Hypothyroidism type: unspecified Qualified Code(s): E03.9 - Hypothyroidism, unspecified; E03.9 - Hypothyroidism, unspecified; E03.9 - Hypothyroidism, unspecified (13) UTI (urinary tract infection) Code(s): N39.0 - URINARY TRACT INFECTION, SITE NOT SPECIFIED Qualifiers: Urinary tract infection type: site unspecified Hematuria presence: with hematuria Qualified Code(s): N39.0 - Urinary tract infection, site not specified; N39.0 - Urinary tract infection, site not specified; R31.9 - Hematuria, unspecified; R31.9 - Hematuria, unspecified Visit type - Emergency Visit Emergency Visit: Yes ED Registration Date: 08/12/17 Care time: The patient presented to the Emergency Department on the above date and was hospitalized for further evaluation of their emergent condition. - New Patient This patient is new to me today: No - Critical Care Critical Care patient: Yes Total Critical Care Time (in minutes): 35 Critical Care Statement: The care of this patient involved high complexity decision making to prevent further life threatening deterioration of the patient 's condition and/or to evaluate & treat vital organ system(s) failure or risk of failure.
[2017-09-13] MEDS ORDERED: PT OWN MED DRAWER 7, Y5N ONE (15:44)
[2017-09-13 15:59] LABS: METAMYELOCYTE 2 % (0-2); MYELOCYTE 1 % (0-2); PLATELET ESTIMATE ADEQUATE (NORMAL); TOTAL CELLS COUNTED 100
[2017-09-13] MEDS ORDERED: POTASSIUM CHLORIDE TABS 20 MEQ TABLET.ER (FP) PO ONE (16:00)
[2017-09-13] MEDS: TAMSULOSIN HCL 0.4 MG CAP.ER.24H (FP) PO SCH (16:31)
--- NOTE | 2017-09-13 17:02 | PN ---
Progress Note (short form) - Note Progress Note: Renal follow up for Hyponatremia Pt seen and examined in the ICU awake and alert on the vent BP remains low urine output poor on IVF Vital Signs Temperature 97.3 F L 09/13/17 18:00 Pulse Rate 98 H 09/13/17 18:00 Respiratory Rate 16 09/13/17 19:15 Blood Pressure 86/55 09/13/17 18:00 O2 Sat by Pulse Oximetry (%) 96 09/13/17 19:43 Intake & Output 09/11/17 09/11/17 09/12/17 09/13/17 00:59 23:59 23:59 23:59 Intake Total 2249.9 7098 Output Total 130 250 Balance 2119.9 6848 Weight 87 lb 4.849 oz 92 lb 13.034 oz NAD, awake and alert on Vent via trach RRR Course BS soft NT/ND Abd No Le edema CBC, BMP 09/13/17 10:55 09/13/17 10:55 Current Medications Acetaminophen (Tylenol -) 650 mg PO Q6H PRN PRN Reason: FEVER OR PAIN Last Admin: 09/12/17 02:30 Dose: 650 mg Acetaminophen (Tylenol Oral Solution -) 650 mg PO Q4H PRN PRN Reason: FEVER OR PAIN Last Admin: 09/13/17 10:45 Dose: 650 mg Amiodarone HCl (Cordarone -) 200 mg PO BID [facility] Apixaban (Eliquis -) 5 mg PO BID [facility] Last Admin: 09/13/17 10:46 Dose: 5 mg IV Flush (Picc Line Flush) 8 ml IVPUSH PRN PRN PRN Reason: Protocol Amiodarone HCl 450 mg/ (Dextrose) 250 mls @ 16.66 mls/hr IVPB TITR [facility]; 0.5 MG/ MIN PRN Reason: Protocol Stop: 09/13/17 21:59 Last Admin: 09/13/17 02:00 Dose: 16.66 mls/hr Sodium Chloride (Normal Saline -) 1,000 mls @ 150 mls/hr IV ASDIR [facility] Last Admin: 09/13/17 07:20 Dose: 150 mls/hr Lactobacillus Acidophilus (Bacid -) 1 tab PO DAILY [facility] Last Admin: 09/13/17 10:45 Dose: 1 tab Levothyroxine Sodium (Synthroid -) 88 mcg PO DAILY@0700 [facility] Last Admin: 09/13/17 06:22 Dose: 88 mcg Magnesium Oxide (Mag-Ox -) 800 mg PO BID [facility] Last Admin: 09/13/17 10:46 Dose: 800 mg Metoprolol Tartrate (Lopressor -) 25 mg PO BID [facility] Nystatin (Nystop Powder -) 1 applic TP DAILY [facility] Last Admin: 09/13/17 10:46 Dose: 1 applic Ondansetron HCl (Zofran Odt -) 4 mg SL Q6H PRN PRN Reason: NAUSEA Last Admin: 09/04/17 15:40 Dose: 4 mg Tamsulosin HCl (Flomax -) 0.4 mg PO DAILY@1730 [facility] Last Admin: 09/13/17 16:31 Dose: 0.4 mg A/p 67 year old woman with PMhx of Chronic Respiratory failure on vent, COPD, Anemia , Afib, Hypothyrodism who presented from the [place] with fever and anemia and with hyponatremia and hypokalemia. #Acute Kidney Injury in setting of Cardiac Arrest/Hemodynamic injury to kidney Renal function based on BMP improved pt remains oliguric with low BP continue isotonic saline at high rate keep MAP > 65 supplement K > 3.5 trend Mg levels Fernando Douglas DO Problem List - Problems (1) COPD (chronic obstructive pulmonary disease) Code(s): J44.9 - CHRONIC OBSTRUCTIVE PULMONARY DISEASE, UNSPECIFIED Qualifiers : COPD type: unspecified COPD Qualified Code(s): J44.9 - Chronic obstructive pulmonary disease, unspecified; J44.9 - Chronic obstructive pulmonary disease, unspecified; J44.9 - Chronic obstructive pulmonary disease, unspecified; J44.9 - Chronic obstructive pulmonary disease, unspecified (2) Respiratory failure Code(s): J96.90 - RESPIRATORY FAILURE, UNSP, UNSP W HYPOXIA OR HYPERCAPNIA Qualifiers: Chronicity: acute on chronic Respiratory failure complication: hypercapnia Qualified Code(s): J96.22 - Acute and chronic respiratory failure with hypercapnia; J96.22 - Acute and chronic respiratory failure with hypercapnia; J96.22 - Acute and chronic respiratory failure with hypercapnia (3) Hyponatremia Code(s): E87.1 - HYPO-OSMOLALITY AND HYPONATREMIA (4) Hypokalemia Code(s): E87.6 - HYPOKALEMIA
--- NOTE | 2017-09-13 20:52 | EKG ---
Test Reason : Blood Pressure : / mmHG Vent. Rate : 149 BPM Atrial Rate : 046 BPM P-R Int : 000 ms QRS Dur : 100 ms QT Int : 324 ms P-R-T Axes : 000 -54 101 degrees QTc Int : 510 ms POOR DATA QUALITY, INTERPRETATION MAY BE ADVERSELY AFFECTED UNDETERMINED RHYTHM POSSIBLE SUPRAVENTRICULAR TACHYCARDIA INCOMPLETE RIGHT BUNDLE BRANCH BLOCK LEFT ANTERIOR FASCICULAR BLOCK CANNOT RULE OUT ANTEROSEPTAL INFARCT (CITED ON OR BEFORE 09-SEP-2017) [facility] ELEVATION CONSIDER INFERIOR INJURY OR ACUTE INFARCT NONSPECIFIC T WAVE ABNORMALITY ANTEROLATERAL LEADS ABNORMAL ECG WHEN COMPARED WITH ECG OF 09-SEP-2017 15:57, CURRENT UNDETERMINED RHYTHM PRECLUDES RHYTHM COMPARISON, NEEDS REVIEW [facility] ELEVATION NOW PRESENT IN INFERIOR LEADS Confirmed by KODY DE LA CRUZ MD ([id number]) on 09/13/2017 8:52:46 PM Referred By: Confirmed By:KODY DE LA CRUZ MD
--- NOTE | 2017-09-13 21:03 | EKG ---
Test Reason : Blood Pressure : / mmHG Vent. Rate : 138 BPM Atrial Rate : 138 BPM P-R Int : 140 ms QRS Dur : 100 ms QT Int : 298 ms P-R-T Axes : 077 -68 105 degrees QTc Int : 451 ms POOR DATA QUALITY, INTERPRETATION MAY BE ADVERSELY AFFECTED UNDETERMINED RHYTHM POSSIBLE SUPRAVENTRICULAR TACHYCARDIA WITH PREMATURE VENTRICULAR OR ABERRANTLY CONDUCTED COMPLEXES LEFT AXIS DEVIATION LOW VOLTAGE QRS INFERIOR INFARCT , AGE UNDETERMINED CANNOT RULE OUT ANTERIOR INFARCT (CITED ON OR BEFORE 09-SEP-2017) T WAVE ABNORMALITY, CONSIDER LATERAL ISCHEMIA ABNORMAL ECG WHEN COMPARED WITH ECG OF 09-SEP-2017 21:14, CURRENT UNDETERMINED RHYTHM PRECLUDES RHYTHM COMPARISON, NEEDS REVIEW Confirmed by KODY DE LA CRUZ MD ([id number]) on 09/13/2017 9:02:52 PM Referred By: Confirmed By:KODY DE LA CRUZ MD
[2017-09-13] MEDS: AMIODARONE HCL 200 MG TABLET (FP) PO SCH (22:24)
[2017-09-13] MEDS: METOPROLOL TARTRATE 25 MG TABLET (FP) PO SCH (22:24)
[2017-09-14 07:28] LABS: MAGNESIUM 2.1 mg/dL (1.8-2.4); PHOSPHOROUS 2.2 mg/dL (2.5-4.9)
--- NOTE | 2017-09-14 07:53 | PN ---
Progress Note, Physician History of Present Illness: EVENTS NOTED HAD A SUDDEN RESPIRATORY ARREST THEN GAINED CONSCIOUSNESS THIS AM PT AWAKE AND CAN NOT RECALL EVENTS NO FURTHER EVENTS - Current Medication List Current Medications: Active Medications Acetaminophen (Tylenol -) 650 mg PO Q6H PRN PRN Reason: FEVER OR PAIN Last Admin: 09/12/17 02:30 Dose: 650 mg Acetaminophen (Tylenol Oral Solution -) 650 mg PO Q4H PRN PRN Reason: FEVER OR PAIN Last Admin: 09/13/17 10:45 Dose: 650 mg Amiodarone HCl (Cordarone -) 200 mg PO BID [facility] Last Admin: 09/13/17 22:24 Dose: 200 mg Apixaban (Eliquis -) 5 mg PO BID [facility] Last Admin: 09/13/17 22:24 Dose: 5 mg IV Flush (Picc Line Flush) 8 ml IVPUSH PRN PRN PRN Reason: Protocol Sodium Chloride (Normal Saline -) 1,000 mls @ 150 mls/hr IV ASDIR [facility] Last Admin: 09/13/17 07:20 Dose: 150 mls/hr Lactobacillus Acidophilus (Bacid -) 1 tab PO DAILY [facility] Last Admin: 09/13/17 10:45 Dose: 1 tab Levothyroxine Sodium (Synthroid -) 88 mcg PO DAILY@0700 [facility] Last Admin: 09/13/17 06:22 Dose: 88 mcg Magnesium Oxide (Mag-Ox -) 800 mg PO BID [facility] Last Admin: 09/13/17 22:24 Dose: 800 mg Metoprolol Tartrate (Lopressor -) 25 mg PO BID [facility] Last Admin: 09/13/17 22:24 Dose: 25 mg Nystatin (Nystop Powder -) 1 applic TP DAILY [facility] Last Admin: 09/13/17 10:46 Dose: 1 applic Ondansetron HCl (Zofran Odt -) 4 mg SL Q6H PRN PRN Reason: NAUSEA Last Admin: 09/04/17 15:40 Dose: 4 mg Tamsulosin HCl (Flomax -) 0.4 mg PO DAILY@1730 [facility] Last Admin: 09/13/17 16:31 Dose: 0.4 mg - Objective Vital Signs: Vital Signs Temperature 98.2 F 09/14/17 06:00 Pulse Rate 80 09/14/17 06:00 Respiratory Rate 12 09/14/17 06:30 Blood Pressure 92/56 09/14/17 06:00 O2 Sat by Pulse Oximetry (%) 99 09/13/17 23:56 Cardiovascular: Yes: Murmur, S1, S2 Respiratory: Yes: Mechanically Ventilated Gastrointestinal: Yes: Normal Bowel Sounds, Soft Labs: CBC, BMP 09/13/17 10:55 INR, PTT INR 1.47 (0.82-1.09) H 09/12/17 08:10 Fibrinogen 532.0 mg/dL (238-498) H 09/10/17 11:30 Assessment/Plan - Problems (1) Mediastinal mass Assessment/Plan: patient wants biopsy s/p biopsy on 09/12 Code(s): J98.59 - OTHER DISEASES OF MEDIASTINUM, NOT ELSEWHERE CLASSIFIED (2) Fever Assessment/Plan: afebrile fever resolved iv abx stopped diarrhea - po flagyl for c diff- completed course - resolved cultures so far negative Microbiology 08/25/17 10:27 Blood - Peripheral Venous Blood Culture - Preliminary NO GROWTH OBTAINED AFTER 24 HOURS, INCUBATION TO CONTINUE FOR 4 DAYS. 08/25/17 10:27 Blood - Peripheral Venous Blood Culture - Preliminary NO GROWTH OBTAINED AFTER 24 HOURS, INCUBATION TO CONTINUE FOR 4 DAYS. fever ?secondary to mass- unclear but will give iv abx for now d/w sister lianne in detail about this new development and weight loss and decline in health Microbiology 08/23/17 08:30 Stool Clostridium difficile Antigen (TEDDY) - Final 08/23/17 08:30 Stool Clostridium difficile Toxin Assay - Final Code(s): R50.9 - FEVER, UNSPECIFIED Qualifiers: Fever type: unspecified Qualified Code(s): R50.9 - Fever, unspecified; R50.9 - Fever, unspecified (3) A-fib Assessment/Plan: tacyhcardia started on amiodarone drip--hr 90's now seen by cardio-Cardizem added heparin drip Code(s): I48.91 - UNSPECIFIED ATRIAL FIBRILLATION Qualifiers: Atrial fibrillation type: paroxysmal Qualified Code(s): I48.0 - Paroxysmal atrial fibrillation; I48.0 - Paroxysmal atrial fibrillation; I48.0 - Paroxysmal atrial fibrillation; I48.0 - Paroxysmal atrial fibrillation (4) Acute on chronic respiratory failure with hypoxia and hypercapnia Assessment/Plan: A/C mode fio2 40% vent support bronchodilators chest ct noted for soft tissue mass- biopsy by IR heparin drip on hold npo Code(s): J96.21 - ACUTE AND CHRONIC RESPIRATORY FAILURE WITH HYPOXIA J96.22 - ACUTE AND CHRONIC RESPIRATORY FAILURE WITH HYPERCAPNIA (5) Diastolic heart failure Assessment/Plan: no signs of volume overload cardio on board Code(s): I50.30 - UNSPECIFIED DIASTOLIC (CONGESTIVE) HEART FAILURE Qualifiers : Heart failure chronicity: chronic Qualified Code(s): I50.32 - Chronic diastolic (congestive) heart failure; I50.32 - Chronic diastolic ( congestive) heart failure; I50.32 - Chronic diastolic (congestive) heart failure ; I50.32 - Chronic diastolic (congestive) heart failure (6) Anemia Assessment/Plan: stable h/h s/p prbc on 09/11 awaite repeat Code(s): D64.9 - ANEMIA, UNSPECIFIED Qualifiers: Anemia type: unspecified type Qualified Code(s): D64.9 - Anemia, unspecified; D64.9 - Anemia, unspecified (7) Diarrhea Assessment/Plan: on flagyl - course done/ improved Code(s): R19.7 - DIARRHEA, UNSPECIFIED Qualifiers: Diarrhea type: unspecified type Qualified Code(s): R19.7 - Diarrhea , unspecified; R19.7 - Diarrhea, unspecified (8) Hypokalemia due to loss of potassium Assessment/Plan: K is ok l Code(s): E87.6 - HYPOKALEMIA (9) Decrease in appetite Assessment/Plan: Per pt sister last week she said no feeding tube flagyl course completed Code(s): R63.0 - ANOREXIA (10) Hypothyroid Assessment/Plan: synthroid po tsh noted Code(s): E03.9 - HYPOTHYROIDISM, UNSPECIFIED Qualifiers: Hypothyroidism type: unspecified Qualified Code(s): E03.9 - Hypothyroidism, unspecified; E03.9 - Hypothyroidism, unspecified; E03.9 - Hypothyroidism, unspecified
[2017-09-14 08:18] LABS: MCH 30.4 pg (25.7-33.7); MEAN CELL VOLUME 92.2 fl (80-96); MEAN PLT VOLUME 9.2 fl (7.5-11.1); PLATELET COUNT 276 K/MM3 (134-434); RDW 16.4 % (11.6-15.6); WHITE BLOOD COUNT 11.9 K/mm3 (4.0-10.0)
[2017-09-14] MEDS: SODIUM CHLORIDE 1,000 ML IV SCH ×2 (09:00→17:10)
[2017-09-14] MEDS: LEVOTHYROXINE NA 88 MCG TABLET (FP) PO SCH (09:23)
[2017-09-14] MEDS: LACTOBACILLUS ACIDOPHILUS 1 EACH TAB (FP) PO SCH (09:23)
[2017-09-14] MEDS: MAGNESIUM OXIDE 400 MG TABLET (FP) PO SCH ×2 (09:24→23:13)
[2017-09-14] MEDS: METOPROLOL TARTRATE 25 MG TABLET (FP) PO SCH ×2 (09:24→23:13)
[2017-09-14] MEDS: AMIODARONE HCL 200 MG TABLET (FP) PO SCH ×2 (09:24→23:13)
[2017-09-14] MEDS: APIXABAN 2.5 MG TABLET PO SCH (09:25)
[2017-09-14] MEDS ORDERED: MAGNESIUM OXIDE 400 MG TABLET (FP) PO ONE (09:37)
[2017-09-14] MEDS ORDERED: NAPH,MB-DB/K PH,MBDB POWDER PACKET PO ONE (09:38)
[2017-09-14] MEDS ORDERED: SODIUM CHLORIDE 250 ML IV STA (11:11)
--- NOTE | 2017-09-14 11:12 | PN ---
Physical Exam: SUBJECTIVE: Patient seen and examined; sitting up in bed comfortable, no new complaints. Denies pain , fever, chills, chest pain. Trached on mech vent chronically. s/p mediastinal lymph node biopsy. OBJECTIVE: Vital Signs Period Temp Pulse Resp BP Sys/Parra Pulse Ox Last 24 Hr 97 F-98.6 F 80-98 12-22 86-105/48-80 92-100 GENERAL: The patient is awake, alert, and fully oriented,, with trach LUNGS: coarse mech ventilated Breath sounds equal, HEART: Regular rate and rhythm, S1, S2 without murmur, rub or gallop. ABDOMEN: Soft, nontender, nondistended, normoactive bowel sounds, no guarding, no rebound, no hepatosplenomegaly, no masses. EXTREMITIES: 2+ pulses, warm, well-perfused, no edema. Laboratory Results - last 24 hr 09/13/17 09/13/17 09/13/17 10:55 10:55 10:55 WBC 13.3 H RBC 3.35 L Hgb 10.0 L D Hct 30.7 L D MCV 91.8 MCH 29.9 MCHC 32.6 RDW 15.7 H Plt Count 266 D MPV 8.6 Total Counted 100 Neutrophils % Neutrophils % (Manual) 89 H Lymphocytes % Lymphocytes % (Manual) 6 L Monocytes % (Manual) 2 L D Myelocytes % (Man) 1 D Platelet Estimate Adequate PTT (Actin FS) 61.7 H D Sodium 140 Potassium 2.5 L* D Chloride 114 H D Carbon Dioxide 15 L D Anion Gap 11 BUN 20 H D Creatinine 0.4 L D Creat Clearance w eGFR > 60 Random Glucose 171 H Calcium < 5.0 L* D Phosphorus 2.2 L D Magnesium 1.6 L D Total Bilirubin 0.4 D AST 229 H D ALT 51 D Alkaline Phosphatase 68 D Total Protein 3.2 L D Albumin 1.3 L D 09/14/17 09/14/17 09/14/17 06:00 06:20 07:20 WBC 11.9 H RBC 3.84 Hgb 11.7 D Hct 35.4 D MCV 92.2 MCH 30.4 MCHC 33.0 RDW 16.4 H Plt Count 276 MPV 9.2 Total Counted Neutrophils % No Result Required. Neutrophils % (Manual) Lymphocytes % No Result Required. Lymphocytes % (Manual) Monocytes % (Manual) Myelocytes % (Man) Platelet Estimate PTT (Actin FS) Sodium Cancelled Potassium Cancelled Chloride Cancelled Carbon Dioxide Cancelled Anion Gap Cancelled BUN Cancelled Creatinine Cancelled Creat Clearance w eGFR Cancelled Random Glucose Cancelled Calcium Cancelled Phosphorus 2.2 L Magnesium 2.1 D Total Bilirubin Cancelled AST Cancelled ALT Cancelled Alkaline Phosphatase Cancelled Total Protein Cancelled Albumin Cancelled Active Medications Generic Name Dose Route Start Last Admin Trade Name Freq PRN Reason Stop Dose Admin Acetaminophen 650 mg 08/27/17 17:36 09/12/17 02:30 Tylenol - PO 650 mg Q6H PRN Administration FEVER OR PAIN Acetaminophen 650 mg 09/13/17 10:32 09/13/17 10:45 Tylenol Oral Solution - PO 650 mg Q4H PRN Administration FEVER OR PAIN Amiodarone HCl 200 mg 09/13/17 22:00 09/14/17 09:24 Cordarone - PO 200 mg BID VALORIE Administration Apixaban 5 mg 09/13/17 11:00 09/14/17 09:25 Eliquis - PO 5 mg BID VALORIE Administration IV Flush 8 ml 08/30/17 11:52 Picc Line Flush IVPUSH PRN PRN Protocol Sodium Chloride 1,000 mls @ 150 mls/hr 09/13/17 07:14 09/14/17 09:00 Normal Saline - IV 150 mls/hr ASDIR VALORIE Administration Sodium Chloride 250 mls @ 500 mls/hr 09/14/17 11:11 Normal Saline - IV 09/14/17 11:40 ASDIR STA Lactobacillus Acidophilus 1 tab 08/13/17 10:00 09/14/17 09:23 Bacid - PO 1 tab DAILY VALORIE Administration Levothyroxine Sodium 88 mcg 08/30/17 07:00 09/14/17 09:23 Synthroid - PO 88 mcg DAILY@0700 VALORIE Administration Magnesium Oxide 800 mg 09/07/17 17:05 09/14/17 09:24 Mag-Ox - PO 800 mg BID VALORIE Administration Metoprolol Tartrate 25 mg 09/13/17 22:00 09/14/17 09:24 Lopressor - PO 25 mg BID VALORIE Administration Nystatin 1 applic 08/16/17 14:00 09/13/17 10:46 Nystop Powder - TP 1 applic DAILY VALORIE Administration Ondansetron HCl 4 mg 09/04/17 15:12 09/04/17 15:40 Zofran Odt - SL 4 mg Q6H PRN Administration NAUSEA Tamsulosin HCl 0.4 mg 08/23/17 17:30 09/13/17 16:31 Flomax - PO 0.4 mg DAILY@1730 [facility] Administration ASSESSMENT/PLAN: 67 year old male with COPD, CH, Afib, hyothyroidism, hx, c diff, htn, chronic respiratory failure on mech vent, presented with fever of unknown origin, suspect tumor related, anterior mediastinal mass. #Neuro: -aaox3 at baseline; mech vent with trachestomy -able to mouth words/wants #Respiratory: -hx of chronic respiratory failure; -COPD with acute on chronic hypoxic/hyperapneic respiratory failure with trach -duonebs prn -aspitation precaution -elevate HOB-keep o2 >90% #cardiovascular: -diastolic LV dysfunciton with class I NYHA LV CHF, compensated -HTN controlled -paroxsymal atrial fibrillation. MAT; [id number] 4; currently in NSR -amiodarone 200mg po bid -lopressor 25mg po bid hold if HR<60 or systolic bp <90 -eliquis 5mg po bid #ID: -Fever of unknown origin poss sec to lymphoma ? -trend; repeat cx if persists -monitor off antibiotics -hx vre; hx of c diff; isolation precautions -ID following #endocrine: -hypothyroid ; cont levothyroxine #renal: -alec -ivf hydration -appreciate renal #hematology/oncology -anemia; s/p transfusion -f/u cbc -invasive anterior mediastinal lymph node biopsy #hypokalemia: -replete ; potassium cl oral solution 40meq #hypocalemia -replete; #hypomagnesemia: replace hypophosphatemia: replace FEN Fluids; gentle hydration electrolytes: as above; replace; f/u labs diet: chopped VTE: on hep GI; protonix Disposition: transfer to med surg Problem List - Problems (1) Fever Code(s): R50.9 - FEVER, UNSPECIFIED Qualifiers: Fever type: unspecified Qualified Code(s): R50.9 - Fever, unspecified (2) A-fib Code(s): I48.91 - UNSPECIFIED ATRIAL FIBRILLATION Qualifiers: Atrial fibrillation type: paroxysmal Qualified Code(s): I48.0 - Paroxysmal atrial fibrillation (3) UTI (urinary tract infection) Code(s): N39.0 - URINARY TRACT INFECTION, SITE NOT SPECIFIED Qualifiers: Urinary tract infection type: site unspecified Hematuria presence: with hematuria Qualified Code(s): N39.0 - Urinary tract infection, site not specified (4) Hypothyroid Code(s): E03.9 - HYPOTHYROIDISM, UNSPECIFIED Qualifiers: Hypothyroidism type: unspecified Qualified Code(s): E03.9 - Hypothyroidism , unspecified (5) Systemic inflammatory response syndrome (SIRS) Code(s): R65.10 - SIRS OF NON-INFECTIOUS ORIGIN W/O ACUTE ORGAN DYSFUNCTION (6) Diastolic heart failure Code(s): I50.30 - UNSPECIFIED DIASTOLIC (CONGESTIVE) HEART FAILURE Qualifiers: Heart failure chronicity: chronic Qualified Code(s): I50.32 - Chronic diastolic (congestive) heart failure (7) Acute renal failure Code(s): N17.9 - ACUTE KIDNEY FAILURE, UNSPECIFIED (8) Sacral decubitus ulcer, stage II Code(s): L89.152 - PRESSURE ULCER OF SACRAL REGION, STAGE 2 (9) Anticoagulant long-term use Code(s): Z79.01 - DECISION UNIT RN (CURRENT) USE OF ANTICOAGULANTS (10) Hypokalemia Code(s): E87.6 - HYPOKALEMIA (11) Mediastinal mass Code(s): J98.59 - OTHER DISEASES OF MEDIASTINUM, NOT ELSEWHERE CLASSIFIED (12) Neoplasm of mediastinum Code(s): D49.89 - NEOPLASM OF UNSPECIFIED BEHAVIOR OF OTHER SPECIFIED SITES (13) Multifocal atrial tachycardia Code(s): I47.1 - SUPRAVENTRICULAR TACHYCARDIA Visit type - Emergency Visit Emergency Visit: Yes ED Registration Date: 08/12/17 Care time: The patient presented to the Emergency Department on the above date and was hospitalized for further evaluation of their emergent condition. - New Patient This patient is new to me today: Yes Date on this admission: 09/14/17 - Critical Care Critical Care patient: Yes Total Critical Care Time (in minutes): 35 Critical Care Statement: The care of this patient involved high complexity decision making to prevent further life threatening deterioration of the patient 's condition and/or to evaluate & treat vital organ system(s) failure or risk of failure.
--- NOTE | 2017-09-14 11:56 | PN ---
Teaching Attending Note Name of Resident: Zaida Ramos ATTENDING PHYSICIAN STATEMENT I saw and evaluated the patient. I reviewed the resident's note and discussed the case with the resident. I agree with the resident's findings and plan as documented. SUBJECTIVE: Pt seen and examined in the ICU. Off amiodarone gtt, telemetry showing sinus rhythm. Vented on volume assist control. No fevers recorded. OBJECTIVE: Last Vital Signs Temp Pulse Resp BP Pulse Ox 97.7 F 82 16 84/51 100 09/14/17 10:00 09/14/17 10:37 09/14/17 10:00 09/14/17 10:00 09/14/17 10:37 Intake & Output 09/11/17 09/12/17 09/13/17 09/14/17 23:59 23:59 23:59 23:59 Intake Total 2249.9 7098 1208 Output Total 130 350 170 Balance 2119.9 6748 1038 Weight 87 lb 4.849 oz 92 lb 13.034 oz 98 lb 5.219 oz Gen: vented, awake Heart: RRR Lung: distant breath sounds Abd: soft, nontender Ext: + edema CBC, BMP 09/14/17 07:20 09/14/17 06:20 Active Medications Acetaminophen (Tylenol -) 650 mg PO Q6H PRN PRN Reason: FEVER OR PAIN Last Admin: 09/12/17 02:30 Dose: 650 mg Acetaminophen (Tylenol Oral Solution -) 650 mg PO Q4H PRN PRN Reason: FEVER OR PAIN Last Admin: 09/13/17 10:45 Dose: 650 mg Amiodarone HCl (Cordarone -) 200 mg PO BID [facility] Last Admin: 09/14/17 09:24 Dose: 200 mg Apixaban (Eliquis -) 5 mg PO BID [facility] Last Admin: 09/14/17 09:25 Dose: 5 mg IV Flush (Picc Line Flush) 8 ml IVPUSH PRN PRN PRN Reason: Protocol Sodium Chloride (Normal Saline -) 1,000 mls @ 150 mls/hr IV ASDIR [facility] Last Admin: 09/14/17 09:00 Dose: 150 mls/hr Lactobacillus Acidophilus (Bacid -) 1 tab PO DAILY [facility] Last Admin: 09/14/17 09:23 Dose: 1 tab Levothyroxine Sodium (Synthroid -) 88 mcg PO DAILY@0700 [facility] Last Admin: 09/14/17 09:23 Dose: 88 mcg Magnesium Oxide (Mag-Ox -) 800 mg PO BID [facility] Last Admin: 09/14/17 09:24 Dose: 800 mg Metoprolol Tartrate (Lopressor -) 25 mg PO BID [facility] Last Admin: 09/14/17 09:24 Dose: 25 mg Nystatin (Nystop Powder -) 1 applic TP DAILY [facility] Last Admin: 09/13/17 10:46 Dose: 1 applic Ondansetron HCl (Zofran Odt -) 4 mg SL Q6H PRN PRN Reason: NAUSEA Last Admin: 09/04/17 15:40 Dose: 4 mg Tamsulosin HCl (Flomax -) 0.4 mg PO DAILY@1730 [facility] Last Admin: 09/13/17 16:31 Dose: 0.4 mg ASSESSMENT AND PLAN: Acute on Chronic Hypoxic and Hypercapneic Respiratory Failure Severe COPD Paroxysmal Atrial Fibrillation with RVR LV Diastolic Dysfunction Invasive Anterior Mediastinal Mass Acute Kidney Injury HTN Hypothyroidism - f/u biopsy results - f/u AM labs, replete as needed - amiodarone PO - continue anticoagulation - inhaled bronchodilators - continue volume assist control - spontaneous breathing trials as tolerated - PO as tolerated - DVT/GI prophylaxis - continue discussions regarding goals of care as pt with aggressive tumor with poor functional status - can transfer to [facility] floor
[2017-09-14 12:31] LABS: REACTIVE LYMPHOCYTES 1 % (0-80); TOTAL CELLS COUNTED 100
--- NOTE | 2017-09-14 12:51 | PN ---
Progress Note, Physician History of Present Illness: Afebrile, resting comfortably on vent, remains in sinus rhythm with PAC. - Current Medication List Current Medications: Active Medications Acetaminophen (Tylenol -) 650 mg PO Q6H PRN PRN Reason: FEVER OR PAIN Last Admin: 09/12/17 02:30 Dose: 650 mg Acetaminophen (Tylenol Oral Solution -) 650 mg PO Q4H PRN PRN Reason: FEVER OR PAIN Last Admin: 09/13/17 10:45 Dose: 650 mg Amiodarone HCl (Cordarone -) 200 mg PO BID [facility] Last Admin: 09/14/17 09:24 Dose: 200 mg Apixaban (Eliquis -) 5 mg PO BID [facility] Last Admin: 09/14/17 09:25 Dose: 5 mg IV Flush (Picc Line Flush) 8 ml IVPUSH PRN PRN PRN Reason: Protocol Sodium Chloride (Normal Saline -) 1,000 mls @ 150 mls/hr IV ASDIR [facility] Last Admin: 09/14/17 09:00 Dose: 150 mls/hr Lactobacillus Acidophilus (Bacid -) 1 tab PO DAILY [facility] Last Admin: 09/14/17 09:23 Dose: 1 tab Levothyroxine Sodium (Synthroid -) 88 mcg PO DAILY@0700 [facility] Last Admin: 09/14/17 09:23 Dose: 88 mcg Magnesium Oxide (Mag-Ox -) 800 mg PO BID [facility] Last Admin: 09/14/17 09:24 Dose: 800 mg Metoprolol Tartrate (Lopressor -) 25 mg PO BID [facility] Last Admin: 09/14/17 09:24 Dose: 25 mg Nystatin (Nystop Powder -) 1 applic TP DAILY [facility] Last Admin: 09/13/17 10:46 Dose: 1 applic Ondansetron HCl (Zofran Odt -) 4 mg SL Q6H PRN PRN Reason: NAUSEA Last Admin: 09/04/17 15:40 Dose: 4 mg Tamsulosin HCl (Flomax -) 0.4 mg PO DAILY@1730 [facility] Last Admin: 09/13/17 16:31 Dose: 0.4 mg - Objective Vital Signs: Vital Signs Temperature 97.8 F 09/14/17 12:00 Pulse Rate 79 09/14/17 12:00 Respiratory Rate 12 09/14/17 12:10 Blood Pressure 93/45 09/14/17 12:00 O2 Sat by Pulse Oximetry (%) 100 09/14/17 10:37 Constitutional: Yes: No Distress, Calm, Thin Neck: Yes: Supple Cardiovascular: Yes: Regular Rate and Rhythm Respiratory: Yes: Mechanically Ventilated, Rhonchi Gastrointestinal: Yes: Normal Bowel Sounds, Soft Edema: No Labs: CBC, BMP 09/14/17 07:20 09/14/17 06:20 INR, PTT INR 1.47 (0.82-1.09) H 09/12/17 08:10 Fibrinogen 532.0 mg/dL (238-498) H 09/10/17 11:30 - ....Imaging EKG: Report Reviewed (Tele: NSR with PAC) Problem List - Problems (1) Fever Code(s): R50.9 - FEVER, UNSPECIFIED Qualifiers: Fever type: unspecified Qualified Code(s): R50.9 - Fever, unspecified (2) Tracheostomy dependence Code(s): Z93.0 - TRACHEOSTOMY STATUS (3) A-fib Code(s): I48.91 - UNSPECIFIED ATRIAL FIBRILLATION Qualifiers: Atrial fibrillation type: paroxysmal Qualified Code(s): I48.0 - Paroxysmal atrial fibrillation (4) UTI (urinary tract infection) Code(s): N39.0 - URINARY TRACT INFECTION, SITE NOT SPECIFIED Qualifiers: Urinary tract infection type: site unspecified Hematuria presence: with hematuria Qualified Code(s): N39.0 - Urinary tract infection, site not specified (5) Hypothyroid Code(s): E03.9 - HYPOTHYROIDISM, UNSPECIFIED Qualifiers: Hypothyroidism type: unspecified Qualified Code(s): E03.9 - Hypothyroidism , unspecified (6) COPD (chronic obstructive pulmonary disease) Code(s): J44.9 - CHRONIC OBSTRUCTIVE PULMONARY DISEASE, UNSPECIFIED Qualifiers: COPD type: unspecified COPD Qualified Code(s): J44.9 - Chronic obstructive pulmonary disease, unspecified (7) Acute on chronic respiratory failure with hypoxia and hypercapnia Code(s): J96.21 - ACUTE AND CHRONIC RESPIRATORY FAILURE WITH HYPOXIA; J96.22 - ACUTE AND CHRONIC RESPIRATORY FAILURE WITH HYPERCAPNIA (8) Diastolic heart failure Code(s): I50.30 - UNSPECIFIED DIASTOLIC (CONGESTIVE) HEART FAILURE Qualifiers: Heart failure chronicity: chronic Qualified Code(s): I50.32 - Chronic diastolic (congestive) heart failure (9) Hematuria Code(s): R31.9 - HEMATURIA, UNSPECIFIED Qualifiers: Hematuria type: unspecified type Qualified Code(s): R31.9 - Hematuria, unspecified (10) Anticoagulant long-term use Code(s): Z79.01 - LONGTERM (CURRENT) USE OF ANTICOAGULANTS (11) Mediastinal mass Code(s): J98.59 - OTHER DISEASES OF MEDIASTINUM, NOT ELSEWHERE CLASSIFIED (12) Multifocal atrial tachycardia Code(s): I47.1 - SUPRAVENTRICULAR TACHYCARDIA Assessment/Plan 1. Post resuscitation referable to recurrent mucus plugging 2. Severe COPD with acute on chronic hypoxic/hypercapneic respiratory failure post tracheostomy, on ventilator 3. LV Diastolic dysfunction compensated/euvolemic 4. HTN 5. Hypothyroidism 6. History of C. Difficile Colitis 7. Acute renal insufficiency 8. Anemia post transfusion 9. Invasive anterior mediastinal mass 10. 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 F/u biopsy results, LFT trend 2. Continue Amiodarone 200 bid, Eliquis 5 bid, Lopressor 25 bid 3. IV fluids NS to 150 cc/Hour, can stop once enteral feeds resumed 4. BD, vent support with SBT as tolerated 5. GI prophylaxis 6. Goals of care being discussed
--- NOTE | 2017-09-14 13:03 | EKG ---
Test Reason : Blood Pressure : / mmHG Vent. Rate : 107 BPM Atrial Rate : 107 BPM P-R Int : 000 ms QRS Dur : 084 ms QT Int : 368 ms P-R-T Axes : 000 -59 135 degrees QTc Int : 491 ms UNDETERMINED RHYTHM SINUS TACHYCARDIA WITH FREQUENT PREMATURE VENTRICULAR COMPLEXES VS. SUPRAVENTRICULAR TACHYCARDIA WITH PREMATURE VENTRICULAR OR ABERRANTLY CONDUCTED COMPLEXES LEFT AXIS DEVIATION PROLONGED QT LOW VOLTAGE QRS INFERIOR INFARCT (CITED ON OR BEFORE 09-SEP-2017) CANNOT RULE OUT ANTERIOR INFARCT (CITED ON OR BEFORE 09-SEP-2017) T WAVE ABNORMALITY, CONSIDER LATERAL ISCHEMIA ABNORMAL ECG WHEN COMPARED WITH ECG OF 09-SEP-2017 15:57, NO SIGNIFICANT CHANGE WAS FOUND Confirmed by KODY DE LA CRUZ MD ([id number]) on 09/14/2017 1:02:49 PM Referred By: Arnaldo SIEGEL Confirmed By:KODY DE LA CRUZ MD
[2017-09-14 13:33] LABS: ALBUMIN 1.8 g/dl (3.4-5.0); ALK PHOS 95 U/L (45-117); ANION GAP 8 (8-16); BILIRUBIN,TOTAL 0.5 mg/dL (0.2-1.0); CO2 21 mmol/L (21-32); CREATININE 0.5 mg/dL (0.55-1.02); GLUCOSE,RANDOM 79 mg/dL (74-106); SGOT/AST 207 U/L (15-37); SGPT/ALT 52 U/L (12-78); TOT PROT 4.1 g/dl (6.4-8.2)
[2017-09-14 13:38] LABS: CALCIUM 6.5 mg/dL (8.5-10.1)
--- NOTE | 2017-09-14 15:09 | PATH ---
Surgical Pathology Report Patient Name: JONELLE OMER Med. Rec. #: [id number] /Age/Gender: 1950 (Age: 67) / F Account: [id number] Location: [address] [place] [address]/[facility] Taken: 09/13/2017 Received: 09/13/2017 Reported: 09/14/2017 Physicians: Laurie Barclay M.D. Specimen(s) Received STENAL BIOPSY Clinical History 67-year-old female with destructive sternal mass Final Diagnosis STERNAL MASS, NEEDLE CORE BIOPSY: NON-SMALL CELL CARCINOMA, FAVOR SQUAMOUS CELL CARCINOMA. Comment: Sections reveal clusters of neoplastic cells with moderate amounts of cytoplasm, and intercellular bridging. Rare cytoplasmic vacuoles are noted. Immunohistochemical stains performed and interpreted at [facility] show the following results: The neoplastic cells are positive with AE1/3, CK7, and p63. The neoplastic cells do not stain with CK20 and TTF-1. This case was discussed with Dr. Meza on September 14, 2017. Immunostain for PD-L1 is pending, and a report will follow. Electronically Signed Tariq Encinas M.D. Addendum Reported: 09/16/2017 Addendum Diagnosis PD-L1 (Keytruda) IHC, Clone 22C3 Pharm DX performed and interpreted at [place], [place] ([id number]) shows the following: RESULT: PD-L1 (Keytruda) TPS: 1% (Low PD-L1 Expression) Reference Range: TPS=Tumor Proportion Score (% of at least 100 viable tumor cells showing complete or partial membrane staining at = 1+) TPS <1% = No Expression TPS 1-49% = Low Expression. (Eligible for second line treatment with Keytruda) TPS =50% = High Expression. (Eligible for first or second line treatment with Keytruda) Tariq Encinas M.D. Gross Description Received in formalin, labeled with the patient's name and indicated on the requisition to be a sternal?? biopsy, are 3 ghotra, cylindrical portions of soft tissue ranging from 0.5-1.0 cm in length and averaging 0.1 cm in diameter. The specimens are submitted in toto in one cassette. 09/13/201709/13/2017
[2017-09-14] MEDS: NYSTATIN POWDER 100,000 UNITS/GM - 15 GM TOPICAL POWDER TP SCH (15:27)
[2017-09-14] MEDS: TAMSULOSIN HCL 0.4 MG CAP.ER.24H (FP) PO SCH (17:10)
--- NOTE | 2017-09-14 18:36 | PN ---
Progress Note (short form) - Note Progress Note: Renal follow up for Hyponatremia Pt seen and examined in the ICU awake and alert on the vent BP low but may be baseline on IVF making urine but output diminished Vital Signs Temperature 98 F 09/14/17 16:00 Pulse Rate 81 09/14/17 16:00 Respiratory Rate 16 09/14/17 16:00 Blood Pressure 99/69 09/14/17 16:00 O2 Sat by Pulse Oximetry (%) 100 09/14/17 10:37 Intake & Output 09/11/17 09/12/17 09/13/17 09/14/17 23:59 23:59 23:59 23:59 Intake Total 2249.9 7098 1308 Output Total 130 350 270 Balance 2119.9 6748 1038 Weight 87 lb 4.849 oz 92 lb 13.034 oz 98 lb 5.219 oz NAD, awake and alert on Vent via trach RRR Course BS soft NT/ND Abd No Le edema CBC, BMP 09/14/17 07:20 09/14/17 06:20 Laboratory Tests 09/14/17 06:00 Potassium 4.0 D Carbon Dioxide 21 D BUN 21 H Creatinine 0.5 L D Calcium 6.5 L* D Phosphorus 2.2 L Magnesium 2.1 D Albumin 1.8 L D Current Medications Acetaminophen (Tylenol -) 650 mg PO Q6H PRN PRN Reason: FEVER OR PAIN Last Admin: 09/12/17 02:30 Dose: 650 mg Acetaminophen (Tylenol Oral Solution -) 650 mg PO Q4H PRN PRN Reason: FEVER OR PAIN Last Admin: 09/13/17 10:45 Dose: 650 mg Amiodarone HCl (Cordarone -) 200 mg PO BID [facility] Last Admin: 09/14/17 09:24 Dose: 200 mg Apixaban (Eliquis -) 5 mg PO BID [facility] Last Admin: 09/14/17 09:25 Dose: 5 mg IV Flush (Picc Line Flush) 8 ml IVPUSH PRN PRN PRN Reason: Protocol Sodium Chloride (Normal Saline -) 1,000 mls @ 150 mls/hr IV ASDIR [facility] Last Admin: 09/14/17 17:10 Dose: 150 mls/hr Lactobacillus Acidophilus (Bacid -) 1 tab PO DAILY [facility] Last Admin: 09/14/17 09:23 Dose: 1 tab Levothyroxine Sodium (Synthroid -) 88 mcg PO DAILY@0700 [facility] Last Admin: 09/14/17 09:23 Dose: 88 mcg Magnesium Oxide (Mag-Ox -) 800 mg PO BID [facility] Last Admin: 09/14/17 09:24 Dose: 800 mg Metoprolol Tartrate (Lopressor -) 25 mg PO BID [facility] Last Admin: 09/14/17 09:24 Dose: 25 mg Nystatin (Nystop Powder -) 1 applic TP DAILY [facility] Last Admin: 09/14/17 15:27 Dose: 1 applic Ondansetron HCl (Zofran Odt -) 4 mg SL Q6H PRN PRN Reason: NAUSEA Last Admin: 09/04/17 15:40 Dose: 4 mg Tamsulosin HCl (Flomax -) 0.4 mg PO DAILY@1730 [facility] Last Admin: 09/14/17 17:10 Dose: 0.4 mg A/p 67 year old woman with PMhx of Chronic Respiratory failure on vent, COPD, Anemia , Afib, Hypothyrodism who presented from the [place] with fever and anemia and with hyponatremia and hypokalemia. #Acute Kidney Injury in setting of Cardiac Arrest/Hemodynamic injury to kidney Renal function improved and stable however pt has low urine output continue isotonic saline keep MAP > 65 supportive care supplament Phos levels Trend BUN/Cr and electrolytes Fernando Douglas DO Problem List - Problems (1) Respiratory failure Code(s): J96.90 - RESPIRATORY FAILURE, UNSP, UNSP W HYPOXIA OR HYPERCAPNIA Qualifiers: Chronicity: acute on chronic Respiratory failure complication: hypercapnia Qualified Code(s): J96.22 - Acute and chronic respiratory failure with hypercapnia (2) COPD (chronic obstructive pulmonary disease) Code(s): J44.9 - CHRONIC OBSTRUCTIVE PULMONARY DISEASE, UNSPECIFIED Qualifiers: COPD type: unspecified COPD Qualified Code(s): J44.9 - Chronic obstructive pulmonary disease, unspecified (3) Hyponatremia Code(s): E87.1 - HYPO-OSMOLALITY AND HYPONATREMIA (4) Hypokalemia Code(s): E87.6 - HYPOKALEMIA
[2017-09-14] MEDS: APIXABAN 5 MG TABLET PO SCH (23:13)
[2017-09-15] MEDS: LEVOTHYROXINE NA 88 MCG TABLET (FP) PO SCH (07:05)
[2017-09-15] MEDS: SODIUM CHLORIDE 1,000 ML IV SCH ×3 (07:05→23:23)
[2017-09-15 07:31] LABS: BASOPHIL 0.3 % (0-2.0); EOSINOPHIL 3.4 % (0-4.5); MCH 30.1 pg (25.7-33.7); MCHC 32.2 g/dl (32.0-36.0); MEAN CELL VOLUME 93.5 fl (80-96); MEAN PLT VOLUME 8.5 fl (7.5-11.1); NEUTROPHILS 74.6 % (42.8-82.8); PLATELET COUNT 276 K/MM3 (134-434); RDW 16.6 % (11.6-15.6); WHITE BLOOD COUNT 12.5 K/mm3 (4.0-10.0)
[2017-09-15 08:01] LABS: ALBUMIN 1.9 g/dl (3.4-5.0); ANION GAP 9 (8-16); CO2 22 mmol/L (21-32); CREATININE 0.5 mg/dL (0.55-1.02); GLUCOSE,RANDOM 96 mg/dL (74-106); MAGNESIUM 1.9 mg/dL (1.8-2.4); PHOSPHOROUS 2.1 mg/dL (2.5-4.9); SGOT/AST 160 U/L (15-37); SGPT/ALT 47 U/L (12-78)
[2017-09-15 08:03] LABS: ALK PHOS 93 U/L (45-117); BILIRUBIN,TOTAL 0.4 mg/dL (0.2-1.0); TOT PROT 4.4 g/dl (6.4-8.2)
[2017-09-15 08:51] LABS: CALCIUM 6.5 mg/dL (8.5-10.1)
[2017-09-15] MEDS ORDERED: PT OWN MED DRAWER 7, Y5N ONE (09:41)
--- NOTE | 2017-09-15 10:02 | PN ---
Progress Note (short form) - Note Progress Note: Awake on AC Mode of vent, 40% FiO2. No acute events since being transferred to the ICU. Intake & Output 09/12/17 09/13/17 09/14/17 09/15/17 23:59 23:59 23:59 23:59 Intake Total 2249.9 7098 3488 1600 Output Total 130 350 270 300 Balance 2119.9 6748 3218 1300 Weight 87 lb 4.849 oz 92 lb 13.034 oz 98 lb 5.219 oz Last Vital Signs Temp Pulse Resp BP Pulse Ox 100.1 F H 100 H 16 98/56 100 09/15/17 06:00 09/15/17 06:00 09/15/17 06:34 09/15/17 06:00 09/14/17 22:00 Active Medications Acetaminophen (Tylenol -) 650 mg PO Q6H PRN PRN Reason: FEVER OR PAIN Last Admin: 09/12/17 02:30 Dose: 650 mg Acetaminophen (Tylenol Oral Solution -) 650 mg PO Q4H PRN PRN Reason: FEVER OR PAIN Last Admin: 09/13/17 10:45 Dose: 650 mg Amiodarone HCl (Cordarone -) [address] [facility] Last Admin: 09/14/17 23:13 Dose: 200 mg Apixaban (Eliquis -) [address] [facility] Last Admin: 09/14/17 23:13 Dose: 5 mg IV Flush (Picc Line Flush) 8 ml IVPUSH PRN PRN PRN Reason: Protocol Sodium Chloride (Normal Saline -) 1,000 mls @ 150 mls/hr IV ASDIR [facility] Last Admin: 09/15/17 07:05 Dose: 150 mls/hr Lactobacillus Acidophilus (Bacid -) [address] [facility] Last Admin: 09/14/17 09:23 Dose: 1 tab Levothyroxine Sodium (Synthroid -) 88 mcg PO DAILY@0700 [facility] Last Admin: 09/15/17 07:05 Dose: 88 mcg Magnesium Oxide (Mag-Ox -) [address] [facility] Last Admin: 09/14/17 23:13 Dose: 800 mg Metoprolol Tartrate (Lopressor -) [address] [facility] Last Admin: 09/14/17 23:13 Dose: 25 mg Nystatin (Nystop Powder -) [address] [facility] Last Admin: 09/14/17 15:27 Dose: 1 applic Ondansetron HCl (Zofran Odt -) 4 mg SL Q6H PRN PRN Reason: NAUSEA Last Admin: 09/04/17 15:40 Dose: 4 mg Tamsulosin HCl (Flomax -) 0.4 mg PO DAILY@1730 [facility] Last Admin: 09/14/17 17:10 Dose: 0.4 mg Gen: vented, awake Heart: RRR Lung: distant breath sounds Abd: soft, nontender Ext: + edema Laboratory Results - last 24 hr 09/11/17 09/14/17 09/14/17 12:02 06:00 07:20 WBC RBC Hgb Hct MCV MCH MCHC RDW Plt Count MPV Total Counted 100 Neutrophils % (Manual) 84 H Band Neuts % (Manual) 7 D Lymphocytes % (Manual) 1 L D Neutrophils % Monocytes % (Manual) 7 D Lymphocytes % Monocytes % Eosinophils % Basophils % Sodium 139 Potassium 4.0 D Chloride 110 H Carbon Dioxide 21 D Anion Gap 8 BUN 21 H Creatinine 0.5 L D Creat Clearance w eGFR > 60 Random Glucose 79 D Calcium 6.5 L* D Phosphorus Magnesium Total Bilirubin 0.5 D AST 207 H ALT 52 Alkaline Phosphatase 95 D Total Protein 4.1 L D Albumin 1.8 L D Blood Type O POSITIVE Antibody Screen Negative Crossmatch See Detail 09/15/17 09/15/17 07:10 07:10 WBC 12.5 H RBC 3.93 Hgb 11.8 Hct 36.8 MCV 93.5 MCH 30.1 MCHC 32.2 RDW 16.6 H Plt Count 276 MPV 8.5 Total Counted Neutrophils % (Manual) Band Neuts % (Manual) Lymphocytes % (Manual) Neutrophils % 74.6 Monocytes % (Manual) Lymphocytes % 9.9 D Monocytes % 11.8 H D Eosinophils % 3.4 D Basophils % 0.3 Sodium 140 Potassium 3.9 Chloride 109 H Carbon Dioxide 22 Anion Gap 9 BUN 15 D Creatinine 0.5 L Creat Clearance w eGFR > 60 Random Glucose 96 D Calcium 6.5 L* Phosphorus 2.1 L Magnesium 1.9 Total Bilirubin 0.4 AST 160 H D ALT 47 Alkaline Phosphatase 93 Total Protein 4.4 L Albumin 1.9 L Blood Type Antibody Screen Crossmatch ASSESSMENT AND PLAN: Acute on Chronic Hypoxic and Hypercapneic Respiratory Failure Severe COPD Paroxysmal Atrial Fibrillation with RVR LV Diastolic Dysfunction Invasive Anterior Mediastinal Mass Acute Kidney Injury HTN Hypothyroidism - f/u biopsy results - amiodarone PO - continue anticoagulation - inhaled bronchodilators - continue volume assist control - spontaneous breathing trials as tolerated - PO as tolerated - DVT/GI prophylaxis - continue discussions regarding goals of care as pt with aggressive tumor with poor functional status Dr Tate
[2017-09-15] MEDS: APIXABAN 5 MG TABLET PO SCH ×2 (10:03→21:09)
[2017-09-15] MEDS: MAGNESIUM OXIDE 400 MG TABLET (FP) PO SCH ×2 (10:03→21:09)
[2017-09-15] MEDS: LACTOBACILLUS ACIDOPHILUS 1 EACH TAB (FP) PO SCH (10:03)
[2017-09-15] MEDS: METOPROLOL TARTRATE 25 MG TABLET (FP) PO SCH ×2 (10:03→21:09)
[2017-09-15] MEDS: AMIODARONE HCL 200 MG TABLET (FP) PO SCH ×2 (10:04→21:09)
--- NOTE | 2017-09-15 11:14 | PN ---
Progress Note, Physician Chief Complaint: Patient was seen on 5S. Arousable. Remains on mechanical ventilation via trache History of Present Illness: Pathology noted for possible squamous cell CA Appears to be comfortable this am on vent - Current Medication List Current Medications: Active Medications Acetaminophen (Tylenol -) 650 mg PO Q6H PRN PRN Reason: FEVER OR PAIN Last Admin: 09/12/17 02:30 Dose: 650 mg Acetaminophen (Tylenol Oral Solution -) 650 mg PO Q4H PRN PRN Reason: FEVER OR PAIN Last Admin: 09/13/17 10:45 Dose: 650 mg Amiodarone HCl (Cordarone -) 200 mg PO BID [facility] Last Admin: 09/15/17 10:04 Dose: 200 mg Apixaban (Eliquis -) 5 mg PO BID [facility] Last Admin: 09/15/17 10:03 Dose: 5 mg IV Flush (Picc Line Flush) 8 ml IVPUSH PRN PRN PRN Reason: Protocol Sodium Chloride (Normal Saline -) 1,000 mls @ 150 mls/hr IV ASDIR [facility] Last Admin: 09/15/17 10:04 Dose: Not Given Lactobacillus Acidophilus (Bacid -) 1 tab PO DAILY [facility] Last Admin: 09/15/17 10:03 Dose: 1 tab Levothyroxine Sodium (Synthroid -) 88 mcg PO DAILY@0700 [facility] Last Admin: 09/15/17 07:05 Dose: 88 mcg Magnesium Oxide (Mag-Ox -) 800 mg PO BID [facility] Last Admin: 09/15/17 10:03 Dose: 800 mg Metoprolol Tartrate (Lopressor -) 25 mg PO BID [facility] Last Admin: 09/15/17 10:03 Dose: 25 mg Nystatin (Nystop Powder -) 1 applic TP DAILY [facility] Last Admin: 09/14/17 15:27 Dose: 1 applic Ondansetron HCl (Zofran Odt -) 4 mg SL Q6H PRN PRN Reason: NAUSEA Last Admin: 09/04/17 15:40 Dose: 4 mg Tamsulosin HCl (Flomax -) 0.4 mg PO DAILY@1730 [facility] Last Admin: 09/14/17 17:10 Dose: 0.4 mg - Objective Vital Signs: Vital Signs Temperature 100.1 F H 09/15/17 06:00 Pulse Rate 100 H 09/15/17 06:00 Respiratory Rate 18 09/15/17 10:00 Blood Pressure 98/56 09/15/17 06:00 O2 Sat by Pulse Oximetry (%) 100 09/15/17 10:00 Cardiovascular: Yes: Regular Rate and Rhythm, Tachycardia, S1, S2 Respiratory: Yes: Diminished, Mechanically Ventilated Gastrointestinal: Yes: Normal Bowel Sounds, Soft. No: Tenderness Edema: No Labs: CBC, BMP 09/15/17 07:10 09/15/17 07:10 Problem List - Problems (1) Pneumonia Code(s): J18.9 - PNEUMONIA, UNSPECIFIED ORGANISM Qualifiers: Pneumonia type: due to unspecified organism Laterality: left Lung location: lower lobe of lung Qualified Code(s): J18.1 - Lobar pneumonia, unspecified organism (2) Tracheostomy dependence Code(s): Z93.0 - TRACHEOSTOMY STATUS (3) A-fib Code(s): I48.91 - UNSPECIFIED ATRIAL FIBRILLATION Qualifiers: Atrial fibrillation type: paroxysmal Qualified Code(s): I48.0 - Paroxysmal atrial fibrillation (4) Acute and chronic respiratory failure with hypoxia Code(s): J96.21 - ACUTE AND CHRONIC RESPIRATORY FAILURE WITH HYPOXIA (5) Hypothyroid Code(s): E03.9 - HYPOTHYROIDISM, UNSPECIFIED Qualifiers: Hypothyroidism type: unspecified Qualified Code(s): E03.9 - Hypothyroidism , unspecified (6) COPD (chronic obstructive pulmonary disease) Code(s): J44.9 - CHRONIC OBSTRUCTIVE PULMONARY DISEASE, UNSPECIFIED Qualifiers: COPD type: unspecified COPD Qualified Code(s): J44.9 - Chronic obstructive pulmonary disease, unspecified (7) Acute on chronic respiratory failure with hypoxia and hypercapnia Code(s): J96.21 - ACUTE AND CHRONIC RESPIRATORY FAILURE WITH HYPOXIA; J96.22 - ACUTE AND CHRONIC RESPIRATORY FAILURE WITH HYPERCAPNIA (8) Diastolic heart failure Code(s): I50.30 - UNSPECIFIED DIASTOLIC (CONGESTIVE) HEART FAILURE Qualifiers: Heart failure chronicity: chronic Qualified Code(s): I50.32 - Chronic diastolic (congestive) heart failure (9) Anemia Code(s): D64.9 - ANEMIA, UNSPECIFIED Qualifiers: Anemia type: unspecified type Qualified Code(s): D64.9 - Anemia, unspecified (10) Multifocal atrial tachycardia Code(s): I47.1 - SUPRAVENTRICULAR TACHYCARDIA Assessment/Plan 1. 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 COPD with acute on chronic hypoxic/hypercapneic respiratory failure post tracheostomy 3. Diastolic LV dysfunction with class I NYHA classification LV congestive heart failure, compensated/euvolemic 4. Paroxysmal Atrial Fibrillation/multifocal atrial tachycardia on NOAC ( [id number] score of 4) 5. HTN 6. Hypothyroidism 7. History of C. Difficile Colitis 8. History of MARLYN, resolved 9. 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 Patient is currently on Metoprolol and Amiodarone which may be continued 2. Continue Eliquis as tolerated 3. Continue mechanical ventilation 4. Further plan regarding mediastinal mass to follow. Pathology noted Further plans are to follow Bert Ivan MD
--- NOTE | 2017-09-15 12:47 | PN ---
Progress Note (short form) - Note Progress Note: seen and examined, chart reviewed in detail. Constitutional: Yes: today she appears drowsy (On vent vai ET tube) Eyes: Yes: Conjunctiva Clear HENT: Yes: Atraumatic Neck: Yes: Supple Cardiovascular: Yes: Iregular Rate and Rhythm Respiratory: Yes: Regular, Other (Course BS) Gastrointestinal: Yes: Normal Bowel Sounds, Soft. No: Tenderness Last Vital Signs Temp Pulse Resp BP Pulse Ox 100.1 F H 100 H 18 98/56 100 09/15/17 06:00 09/15/17 06:00 09/15/17 10:00 09/15/17 06:00 09/15/17 10:00 CBC, BMP 09/15/17 07:10 09/15/17 07:10 Current Medications Generic Name Dose Route Start Last Admin Trade Name Freq PRN Reason Stop Dose Admin Acetaminophen 650 mg 08/27/17 17:36 09/12/17 02:30 Tylenol - PO 650 mg Q6H PRN Administration FEVER OR PAIN Acetaminophen 650 mg 09/13/17 10:32 09/13/17 10:45 Tylenol Oral Solution - PO 650 mg Q4H PRN Administration FEVER OR PAIN Amiodarone HCl 200 mg 09/13/17 22:00 09/15/17 10:04 Cordarone - PO 200 mg BID [facility] Administration Apixaban 5 mg 09/14/17 22:00 09/15/17 10:03 Eliquis - PO 5 mg BID [facility] Administration IV Flush 8 ml 08/30/17 11:52 Picc Line Flush IVPUSH PRN PRN Protocol Sodium Chloride 1,000 mls @ 150 mls/hr 09/13/17 07:14 09/15/17 10:04 Normal Saline - IV Not Given ASDIR [facility] Lactobacillus Acidophilus 1 tab 08/13/17 10:00 09/15/17 10:03 Bacid - PO 1 tab DAILY [facility] Administration Levothyroxine Sodium 88 mcg 08/30/17 07:00 09/15/17 07:05 Synthroid - PO 88 mcg DAILY@0700 [facility] Administration Magnesium Oxide 800 mg 09/07/17 17:05 09/15/17 10:03 Mag-Ox - PO 800 mg BID [facility] Administration Metoprolol Tartrate 25 mg 09/13/17 22:00 09/15/17 10:03 Lopressor - PO 25 mg BID [facility] Administration Nystatin 1 applic 08/16/17 14:00 09/14/17 15:27 Nystop Powder - TP 1 applic DAILY [facility] Administration Ondansetron HCl 4 mg 09/04/17 15:12 09/04/17 15:40 Zofran Odt - SL 4 mg Q6H PRN Administration NAUSEA Tamsulosin HCl 0.4 mg 08/23/17 17:30 09/14/17 17:10 Flomax - PO 0.4 mg DAILY@1730 [facility] Administration Assessment/Plan: Biopsy consistent with NSCC , Sqamous cell. Acute on Chronic Hypoxic and Hypercapneic Respiratory Failure, vent dependant pAfib on eliquis HTN Anemia Poor PS I met with ague have explained to her about the results and the unfortunate situation that treatment can't be offered due to her poor functional status and other co-morbidities. She said "OK". I have asked her permission to discuss about this with her sisters who are her HCP and also about further steps. She said, " you can ". After the conversation with her , I called Valencia Peng( information taken from the HCP form) , discussed in detail and advised about DNR/Comfort care. She requested time as she wanted to discuss with her other sister and will make a decision. Later, I have informed to of Palliative care and updated the situation. Will need to wait for her sister's arrival with the decision and further paper w/u to be filled. RN was present during this encounter. continue the rest of the care until decisions made.
[2017-09-15] MEDS: NYSTATIN POWDER 100,000 UNITS/GM - 15 GM TOPICAL POWDER TP SCH (14:00)
[2017-09-15] MEDS: TAMSULOSIN HCL 0.4 MG CAP.ER.24H (FP) PO SCH (17:16)
--- NOTE | 2017-09-15 18:32 | PN ---
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 Patient aware of her diagnosis Biopsy results shows NSCC-SCC -Sister apprehensive about making patient DNR. - Current Medication List Current Medications: Active Medications Acetaminophen (Tylenol -) 650 mg PO Q6H PRN PRN Reason: FEVER OR PAIN Last Admin: 09/12/17 02:30 Dose: 650 mg Acetaminophen (Tylenol Oral Solution -) 650 mg PO Q4H PRN PRN Reason: FEVER OR PAIN Last Admin: 09/13/17 10:45 Dose: 650 mg Amiodarone HCl (Cordarone -) 200 mg PO BID [facility] Last Admin: 09/15/17 10:04 Dose: 200 mg Apixaban (Eliquis -) 5 mg PO BID [facility] Last Admin: 09/15/17 10:03 Dose: 5 mg IV Flush (Picc Line Flush) 8 ml IVPUSH PRN PRN PRN Reason: Protocol Sodium Chloride (Normal Saline -) 1,000 mls @ 150 mls/hr IV ASDIR [facility] Last Admin: 09/15/17 10:04 Dose: Not Given Lactobacillus Acidophilus (Bacid -) 1 tab PO DAILY [facility] Last Admin: 09/15/17 10:03 Dose: 1 tab Levothyroxine Sodium (Synthroid -) 88 mcg PO DAILY@0700 [facility] Last Admin: 09/15/17 07:05 Dose: 88 mcg Magnesium Oxide (Mag-Ox -) 800 mg PO BID [facility] Last Admin: 09/15/17 10:03 Dose: 800 mg Metoprolol Tartrate (Lopressor -) 25 mg PO BID [facility] Last Admin: 09/15/17 10:03 Dose: 25 mg Nystatin (Nystop Powder -) 1 applic TP DAILY [facility] Last Admin: 09/14/17 15:27 Dose: 1 applic Ondansetron HCl (Zofran Odt -) 4 mg SL Q6H PRN PRN Reason: NAUSEA Last Admin: 09/04/17 15:40 Dose: 4 mg Tamsulosin HCl (Flomax -) 0.4 mg PO DAILY@1730 [facility] Last Admin: 09/15/17 17:16 Dose: Not Given - Objective Vital Signs: Vital Signs Temperature 100.1 F H 09/15/17 14:00 Pulse Rate 100 H 09/15/17 14:00 Respiratory Rate 22 09/15/17 18:15 Blood Pressure 97/58 09/15/17 14:00 O2 Sat by Pulse Oximetry (%) 99 09/15/17 10:00 Constitutional: Yes: Well Nourished, No Distress, Calm Cardiovascular: Yes: Regular Rate and Rhythm Respiratory: Yes: Regular, Mechanically Ventilated Musculoskeletal: Yes: WNL Extremities: Yes: WNL Edema: Yes (generalized) Peripheral Pulses WNL: Yes Neurological: Yes: Lethargy Labs: CBC, BMP 09/15/17 07:10 09/15/17 07:10 INR, PTT INR 1.47 (0.82-1.09) H 09/12/17 08:10 Fibrinogen 532.0 mg/dL (238-498) H 09/10/17 11:30 Problem List - Problems (1) Fever Assessment/Plan: -febrile last night -tylenol for fever over 100.0F Code(s): R50.9 - FEVER, UNSPECIFIED Qualifiers: Fever type: unspecified Qualified Code(s): R50.9 - Fever, unspecified (2) A-fib Assessment/Plan: -Chronic -uncontrolled 2/2 to sepsis and fever -Eliquis on hold -on heparin SQ BID -uncontrolled at this time, ordered digoxin Code(s): I48.91 - UNSPECIFIED ATRIAL FIBRILLATION Qualifiers: Atrial fibrillation type: paroxysmal Qualified Code(s): I48.0 - Paroxysmal atrial fibrillation (3) Acute and chronic respiratory failure with hypoxia Assessment/Plan: -on mechanical vent -poor prognosis knowing the existence of possible malignant neoplasm Code(s): J96.21 - ACUTE AND CHRONIC RESPIRATORY FAILURE WITH HYPOXIA (4) Sepsis Assessment/Plan: -on admission -BP okay -seen by ID -overall poor prognosis Code(s): A41.9 - SEPSIS, UNSPECIFIED ORGANISM Qualifiers: Sepsis type: sepsis due to unspecified organism Qualified Code(s): A41.9 - Sepsis, unspecified organism (5) Systemic inflammatory response syndrome (SIRS) Assessment/Plan: -seen by ID -Tylenol for fever over 100.0F Code(s): R65.10 - SIRS OF NON-INFECTIOUS ORIGIN W/O ACUTE ORGAN DYSFUNCTION (6) Sacral decubitus ulcer, stage II Assessment/Plan: -seen by Vascular -offloading to the area -katlyn -wound culture shows MRSA and VRE Code(s): L89.152 - PRESSURE ULCER OF SACRAL REGION, STAGE 2 (7) Neoplasm of mediastinum Assessment/Plan: -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
[2017-09-15] MEDS: ACETAMINOPHEN 325 MG TABLET (FP) PO PRN (21:09)
[2017-09-16] MEDS: LEVOTHYROXINE NA 88 MCG TABLET (FP) PO SCH (06:03)
[2017-09-16] MEDS ORDERED: PT OWN MED DRAWER 7, Y5N ONE ×2 (10:00→21:35)
[2017-09-16] MEDS: SODIUM CHLORIDE 1,000 ML IV SCH (10:03)
[2017-09-16] MEDS: LACTOBACILLUS ACIDOPHILUS 1 EACH TAB (FP) PO SCH (10:03)
[2017-09-16] MEDS: METOPROLOL TARTRATE 25 MG TABLET (FP) PO SCH ×2 (10:03→23:54)
[2017-09-16] MEDS: MAGNESIUM OXIDE 400 MG TABLET (FP) PO SCH ×2 (10:03→23:54)
[2017-09-16] MEDS: AMIODARONE HCL 200 MG TABLET (FP) PO SCH ×2 (10:03→23:53)
[2017-09-16] MEDS: APIXABAN 5 MG TABLET PO SCH ×2 (10:03→23:54)
--- NOTE | 2017-09-16 10:50 | PN ---
Progress Note, Physician Chief Complaint: UTI, Fever History of Present Illness: NAD, on mech vent poor appetite, having just sips of ensure seen by ID, cardiology, pulmonary, Oncology and nephrology CT chest showed possible malignant neoplasm in the mediastinum Was seen by Palliative medicine. Patient aware of her diagnosis pending biopsy results -Sister apprehensive about making patient DNR. - Current Medication List Current Medications: Active Medications Acetaminophen (Tylenol -) 650 mg PO Q6H PRN PRN Reason: FEVER OR PAIN Last Admin: 09/15/17 21:09 Dose: 650 mg Acetaminophen (Tylenol Oral Solution -) 650 mg PO Q4H PRN PRN Reason: FEVER OR PAIN Last Admin: 09/13/17 10:45 Dose: 650 mg Amiodarone HCl (Cordarone -) 200 mg PO BID [facility] Last Admin: 09/16/17 10:03 Dose: 200 mg Apixaban (Eliquis -) 5 mg PO BID [facility] Last Admin: 09/16/17 10:03 Dose: 5 mg IV Flush (Picc Line Flush) 8 ml IVPUSH PRN PRN PRN Reason: Protocol Sodium Chloride (Normal Saline -) 1,000 mls @ 150 mls/hr IV ASDIR [facility] Last Admin: 09/16/17 10:03 Dose: Not Given Lactobacillus Acidophilus (Bacid -) 1 tab PO DAILY [facility] Last Admin: 09/16/17 10:03 Dose: 1 tab Levothyroxine Sodium (Synthroid -) 88 mcg PO DAILY@0700 [facility] Last Admin: 09/16/17 06:03 Dose: 88 mcg Magnesium Oxide (Mag-Ox -) 800 mg PO BID [facility] Last Admin: 09/16/17 10:03 Dose: 800 mg Metoprolol Tartrate (Lopressor -) 25 mg PO BID [facility] Last Admin: 09/16/17 10:03 Dose: 25 mg Nystatin (Nystop Powder -) 1 applic TP DAILY [facility] Last Admin: 09/15/17 14:00 Dose: 1 applic Ondansetron HCl (Zofran Odt -) 4 mg SL Q6H PRN PRN Reason: NAUSEA Last Admin: 09/04/17 15:40 Dose: 4 mg Tamsulosin HCl (Flomax -) 0.4 mg PO DAILY@1730 [facility] Last Admin: 09/15/17 17:16 Dose: Not Given - Objective Vital Signs: Vital Signs Temperature 99.6 F 09/16/17 05:48 Pulse Rate 93 H 09/16/17 05:48 Respiratory Rate 14 09/16/17 06:55 Blood Pressure 90/52 09/16/17 05:48 O2 Sat by Pulse Oximetry (%) 95 09/15/17 22:00 Constitutional: Yes: No Distress, Calm, Cachectic Labs: CBC, BMP 09/15/17 07:10 09/15/17 07:10 INR, PTT INR 1.47 (0.82-1.09) H 09/12/17 08:10 Fibrinogen 532.0 mg/dL (238-498) H 09/10/17 11:30 Problem List - Problems (1) Fever Assessment/Plan: -febrile last night -tylenol for fever over 100.0F Code(s): R50.9 - FEVER, UNSPECIFIED Qualifiers: Fever type: unspecified Qualified Code(s): R50.9 - Fever, unspecified (2) A-fib Assessment/Plan: -Chronic -uncontrolled 2/2 to sepsis and fever -Eliquis on hold -on heparin SQ BID -uncontrolled at this time, ordered digoxin Code(s): I48.91 - UNSPECIFIED ATRIAL FIBRILLATION Qualifiers: Atrial fibrillation type: paroxysmal Qualified Code(s): I48.0 - Paroxysmal atrial fibrillation (3) Acute and chronic respiratory failure with hypoxia Assessment/Plan: -on mechanical vent -poor prognosis knowing the existence of possible malignant neoplasm Code(s): J96.21 - ACUTE AND CHRONIC RESPIRATORY FAILURE WITH HYPOXIA (4) Systemic inflammatory response syndrome (SIRS) Assessment/Plan: -seen by ID -Tylenol for fever over 100.0F Code(s): R65.10 - SIRS OF NON-INFECTIOUS ORIGIN W/O ACUTE ORGAN DYSFUNCTION (5) Sacral decubitus ulcer, stage II Assessment/Plan: -seen by Vascular -offloading to the area -santyl -wound culture shows MRSA and VRE Code(s): L89.152 - PRESSURE ULCER OF SACRAL REGION, STAGE 2 (6) Neoplasm of mediastinum Assessment/Plan: -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
--- NOTE | 2017-09-16 11:25 | EKG ---
Test Reason : Blood Pressure : / mmHG Vent. Rate : 085 BPM Atrial Rate : 288 BPM P-R Int : 000 ms QRS Dur : 082 ms QT Int : 312 ms P-R-T Axes : 000 -41 192 degrees QTc Int : 371 ms ATRIAL FIBRILLATION LEFT AXIS DEVIATION LOW VOLTAGE QRS NONSPECIFIC ST AND T WAVE ABNORMALITY ABNORMAL ECG Confirmed by KARISSA PERAZA MD ([id number]) on 09/16/2017 11:24:48 AM Referred By: CAPRICE SERRA Confirmed By:KARISSA PERAZA MD
[2017-09-16] MEDS: NYSTATIN POWDER 100,000 UNITS/GM - 15 GM TOPICAL POWDER TP SCH (13:00)
--- NOTE | 2017-09-16 13:41 | PN ---
Progress Note (short form) - Note Progress Note: Renal follow up for Hyponatremia Pt seen and examined at the bedside lethargic but arouseable no IV acccess on vent Vital Signs Temperature 99.6 F 09/16/17 05:48 Pulse Rate 93 H 09/16/17 10:48 Respiratory Rate 14 09/16/17 10:48 Blood Pressure 90/52 09/16/17 05:48 O2 Sat by Pulse Oximetry (%) 95 09/16/17 10:48 Intake & Output 09/13/17 09/14/17 09/15/17 09/16/17 23:59 23:59 23:59 23:59 Intake Total 7098 3488 3370 900 Output Total 350 270 700 100 Balance 6748 3218 2670 800 Weight 92 lb 13.034 oz 98 lb 5.219 oz NAD, awake and alert on Vent via trach RRR Course BS soft NT/ND Abd + edema UE and LE CBC, BMP 09/15/17 07:10 09/15/17 07:10 Current Medications Acetaminophen (Tylenol -) 650 mg PO Q6H PRN PRN Reason: FEVER OR PAIN Last Admin: 09/15/17 21:09 Dose: 650 mg Acetaminophen (Tylenol Oral Solution -) 650 mg PO Q4H PRN PRN Reason: FEVER OR PAIN Last Admin: 09/13/17 10:45 Dose: 650 mg Amiodarone HCl (Cordarone -) 200 mg PO BID [facility] Last Admin: 09/16/17 10:03 Dose: 200 mg Apixaban (Eliquis -) 5 mg PO BID [facility] Last Admin: 09/16/17 10:03 Dose: 5 mg IV Flush (Picc Line Flush) 8 ml IVPUSH PRN PRN PRN Reason: Protocol Sodium Chloride (Normal Saline -) 1,000 mls @ 150 mls/hr IV ASDIR [facility] Last Admin: 09/16/17 10:03 Dose: Not Given Lactobacillus Acidophilus (Bacid -) 1 tab PO DAILY [facility] Last Admin: 09/16/17 10:03 Dose: 1 tab Levothyroxine Sodium (Synthroid -) 88 mcg PO DAILY@0700 [facility] Last Admin: 09/16/17 06:03 Dose: 88 mcg Magnesium Oxide (Mag-Ox -) 800 mg PO BID [facility] Last Admin: 09/16/17 10:03 Dose: 800 mg Metoprolol Tartrate (Lopressor -) 25 mg PO BID [facility] Last Admin: 09/16/17 10:03 Dose: 25 mg Nystatin (Nystop Powder -) 1 applic TP DAILY [facility] Last Admin: 09/15/17 14:00 Dose: 1 applic Ondansetron HCl (Zofran Odt -) 4 mg SL Q6H PRN PRN Reason: NAUSEA Last Admin: 09/04/17 15:40 Dose: 4 mg Tamsulosin HCl (Flomax -) 0.4 mg PO DAILY@1730 [facility] Last Admin: 09/15/17 17:16 Dose: Not Given A/p 67 year old woman with PMhx of Chronic Respiratory failure on vent, COPD, Anemia , Afib, Hypothyrodism who presented from the DC with fever and anemia and with hyponatremia and hypokalemia. #Acute Kidney Injury in setting of Cardiac Arrest/Hemodynamic injury to kidney Renal function is improved pt with not much urine output but likey due to 3rd spacing of her IVF can d/c IVF, BP ok (MAP > 65) start protein supplementation with prostat Prognosis remains poor Fernando Douglas DO Problem List - Problems (1) Respiratory failure Code(s): J96.90 - RESPIRATORY FAILURE, UNSP, UNSP W HYPOXIA OR HYPERCAPNIA Qualifiers: Chronicity: acute on chronic Respiratory failure complication: hypercapnia Qualified Code(s): J96.22 - Acute and chronic respiratory failure with hypercapnia (2) COPD (chronic obstructive pulmonary disease) Code(s): J44.9 - CHRONIC OBSTRUCTIVE PULMONARY DISEASE, UNSPECIFIED Qualifiers: COPD type: unspecified COPD Qualified Code(s): J44.9 - Chronic obstructive pulmonary disease, unspecified (3) Hyponatremia Code(s): E87.1 - HYPO-OSMOLALITY AND HYPONATREMIA (4) Hypokalemia Code(s): E87.6 - HYPOKALEMIA
--- NOTE | 2017-09-16 14:11 | PN ---
Progress Note, Physician History of Present Illness: Afebrile, resting comfortably on vent, biopsy pathology came back as likely squamous cell. - Current Medication List Current Medications: Active Medications Acetaminophen (Tylenol -) 650 mg PO Q6H PRN PRN Reason: FEVER OR PAIN Last Admin: 09/15/17 21:09 Dose: 650 mg Acetaminophen (Tylenol Oral Solution -) 650 mg PO Q4H PRN PRN Reason: FEVER OR PAIN Last Admin: 09/13/17 10:45 Dose: 650 mg Amino Acids (Prosource No Carb Liquid Pkt) 30 ml PO BID@0800,1730 [facility] Amiodarone HCl (Cordarone -) 200 mg PO BID [facility] Last Admin: 09/16/17 10:03 Dose: 200 mg Apixaban (Eliquis -) 5 mg PO BID [facility] Last Admin: 09/16/17 10:03 Dose: 5 mg IV Flush (Picc Line Flush) 8 ml IVPUSH PRN PRN PRN Reason: Protocol Sodium Chloride (Normal Saline -) 1,000 mls @ 150 mls/hr IV ASDIR [facility] Last Admin: 09/16/17 10:03 Dose: Not Given Lactobacillus Acidophilus (Bacid -) 1 tab PO DAILY [facility] Last Admin: 09/16/17 10:03 Dose: 1 tab Levothyroxine Sodium (Synthroid -) 88 mcg PO DAILY@0700 [facility] Last Admin: 09/16/17 06:03 Dose: 88 mcg Magnesium Oxide (Mag-Ox -) 800 mg PO BID [facility] Last Admin: 09/16/17 10:03 Dose: 800 mg Metoprolol Tartrate (Lopressor -) 25 mg PO BID [facility] Last Admin: 09/16/17 10:03 Dose: 25 mg Nystatin (Nystop Powder -) 1 applic TP DAILY [facility] Last Admin: 09/15/17 14:00 Dose: 1 applic Ondansetron HCl (Zofran Odt -) 4 mg SL Q6H PRN PRN Reason: NAUSEA Last Admin: 09/04/17 15:40 Dose: 4 mg Tamsulosin HCl (Flomax -) 0.4 mg PO DAILY@1730 [facility] Last Admin: 09/15/17 17:16 Dose: Not Given - Objective Vital Signs: Vital Signs Temperature 99.6 F 09/16/17 05:48 Pulse Rate 93 H 09/16/17 10:48 Respiratory Rate 14 09/16/17 10:48 Blood Pressure 90/52 09/16/17 05:48 O2 Sat by Pulse Oximetry (%) 95 09/16/17 10:48 Constitutional: Yes: No Distress, Calm, Thin Neck: Yes: Supple Cardiovascular: Yes: Regular Rate and Rhythm Respiratory: Yes: Regular, Diminished Gastrointestinal: Yes: Normal Bowel Sounds, Soft Edema: No Labs: CBC, BMP 09/15/17 07:10 09/15/17 07:10 INR, PTT INR 1.47 (0.82-1.09) H 09/12/17 08:10 Fibrinogen 532.0 mg/dL (238-498) H 09/10/17 11:30 Problem List - Problems (1) Fever Code(s): R50.9 - FEVER, UNSPECIFIED Qualifiers: Fever type: unspecified Qualified Code(s): R50.9 - Fever, unspecified (2) Tracheostomy dependence Code(s): Z93.0 - TRACHEOSTOMY STATUS (3) A-fib Code(s): I48.91 - UNSPECIFIED ATRIAL FIBRILLATION Qualifiers: Atrial fibrillation type: paroxysmal Qualified Code(s): I48.0 - Paroxysmal atrial fibrillation (4) UTI (urinary tract infection) Code(s): N39.0 - URINARY TRACT INFECTION, SITE NOT SPECIFIED Qualifiers: Urinary tract infection type: site unspecified Hematuria presence: with hematuria Qualified Code(s): N39.0 - Urinary tract infection, site not specified (5) Hypothyroid Code(s): E03.9 - HYPOTHYROIDISM, UNSPECIFIED Qualifiers: Hypothyroidism type: unspecified Qualified Code(s): E03.9 - Hypothyroidism , unspecified (6) COPD (chronic obstructive pulmonary disease) Code(s): J44.9 - CHRONIC OBSTRUCTIVE PULMONARY DISEASE, UNSPECIFIED Qualifiers: COPD type: unspecified COPD Qualified Code(s): J44.9 - Chronic obstructive pulmonary disease, unspecified (7) Acute on chronic respiratory failure with hypoxia and hypercapnia Code(s): J96.21 - ACUTE AND CHRONIC RESPIRATORY FAILURE WITH HYPOXIA; J96.22 - ACUTE AND CHRONIC RESPIRATORY FAILURE WITH HYPERCAPNIA (8) Diastolic heart failure Code(s): I50.30 - UNSPECIFIED DIASTOLIC (CONGESTIVE) HEART FAILURE Qualifiers: Heart failure chronicity: chronic Qualified Code(s): I50.32 - Chronic diastolic (congestive) heart failure (9) Hematuria Code(s): R31.9 - HEMATURIA, UNSPECIFIED Qualifiers: Hematuria type: unspecified type Qualified Code(s): R31.9 - Hematuria, unspecified (10) Anticoagulant long-term use Code(s): Z79.01 - TELEVIS[employer]ER (CURRENT) USE OF ANTICOAGULANTS (11) Mediastinal mass Code(s): J98.59 - OTHER DISEASES OF MEDIASTINUM, NOT ELSEWHERE CLASSIFIED (12) Multifocal atrial tachycardia Code(s): I47.1 - SUPRAVENTRICULAR TACHYCARDIA (13) Non-small cell lung cancer Code(s): C34.90 - MALIGNANT NEOPLASM OF UNSP PART OF UNSP BRONCHUS OR LUNG Qualifiers: Laterality: unspecified laterality Qualified Code(s): C34.90 - Malignant neoplasm of unspecified part of unspecified bronchus or lung Assessment/Plan 1. Fever of unknown origin with anterior mediastinal mass referable to NSCLC 2. COPD with acute on chronic hypoxic/hypercapneic respiratory failure post tracheostomy 3. Diastolic LV dysfunction with class I NYHA classification LV congestive heart failure, compensated/euvolemic 4. Paroxysmal Atrial Fibrillation/multifocal atrial tachycardia on NOAC ( [id number] score of 4) 5. HTN 6. Hypothyroidism 7. History of C. Difficile Colitis 8. History of MARLYN, resolved 9. 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 Patient is currently on Metoprolol 25 bid and Amiodarone 200 bid 2. Continue Eliquis 5 bid as tolerated 3. Continue mechanical ventilation 4. Not candidate for therapy given poor performance status, palliative care has been consulted
--- NOTE | 2017-09-16 14:52 | PN ---
Progress Note (short form) - Note Progress Note: seen and examined, chart reviewed in detail. Constitutional: Yes: today she is awake, appears tachypenic (On vent vai ET tube ) Eyes: Yes: Conjunctiva Clear HENT: Yes: Atraumatic Neck: Yes: Supple Cardiovascular: Yes: Iregular Rate and Rhythm Respiratory: Yes: Regular, Other (Course BS) Gastrointestinal: Yes: Normal Bowel Sounds, Soft. No: Tenderness CBC, BMP 09/15/17 07:10 09/15/17 07:10 Current Medications Generic Name Dose Route Start Last Admin Trade Name Freq PRN Reason Stop Dose Admin Acetaminophen 650 mg 08/27/17 17:36 09/15/17 21:09 Tylenol - PO 650 mg Q6H PRN Administration FEVER OR PAIN Acetaminophen 650 mg 09/13/17 10:32 09/13/17 10:45 Tylenol Oral Solution - PO 650 mg Q4H PRN Administration FEVER OR PAIN Amino Acids 30 ml 09/16/17 14:00 Prosource No Carb Liquid Pkt PO BID@0800,1730 [facility] Amiodarone HCl 200 mg 09/13/17 22:00 09/16/17 10:03 Cordarone - PO 200 mg BID [facility] Administration Apixaban 5 mg 09/14/17 22:00 09/16/17 10:03 Eliquis - PO 5 mg BID [facility] Administration IV Flush 8 ml 08/30/17 11:52 Picc Line Flush IVPUSH PRN PRN Protocol Sodium Chloride 1,000 mls @ 150 mls/hr 09/13/17 07:14 09/16/17 10:03 Normal Saline - IV Not Given ASDIR [facility] Lactobacillus Acidophilus 1 tab 08/13/17 10:00 09/16/17 10:03 Bacid - PO 1 tab DAILY [facility] Administration Levothyroxine Sodium 88 mcg 08/30/17 07:00 09/16/17 06:03 Synthroid - PO 88 mcg DAILY@0700 [facility] Administration Magnesium Oxide 800 mg 09/07/17 17:05 09/16/17 10:03 Mag-Ox - PO 800 mg BID [facility] Administration Metoprolol Tartrate 25 mg 09/13/17 22:00 09/16/17 10:03 Lopressor - PO 25 mg BID [facility] Administration Nystatin 1 applic 08/16/17 14:00 09/15/17 14:00 Nystop Powder - TP 1 applic DAILY [facility] Administration Ondansetron HCl 4 mg 09/04/17 15:12 09/04/17 15:40 Zofran Odt - SL 4 mg Q6H PRN Administration NAUSEA Tamsulosin HCl 0.4 mg 08/23/17 17:30 09/15/17 17:16 Flomax - PO Not Given DAILY@1730 [facility] CBC, BMP 09/15/17 07:10 09/15/17 07:10 Assessment/Plan: Biopsy consistent with NSCC , Sqamous cell. Acute on Chronic Hypoxic and Hypercapneic Respiratory Failure, vent dependant pAfib on eliquis HTN Anemia Poor PS Ongoing discussion of GOC. Palliative care consult appreciated ECOG PS of 4, not a candidate for therapy. No other onc intervention at this time , call us as needed
--- NOTE | 2017-09-16 14:53 | PN ---
Progress Note, Physician History of Present Illness: PULMINARY LETHARGIC ON VENT SUPPORT AC MODE - Current Medication List Current Medications: Active Medications Acetaminophen (Tylenol -) 650 mg PO Q6H PRN PRN Reason: FEVER OR PAIN Last Admin: 09/15/17 21:09 Dose: 650 mg Acetaminophen (Tylenol Oral Solution -) 650 mg PO Q4H PRN PRN Reason: FEVER OR PAIN Last Admin: 09/13/17 10:45 Dose: 650 mg Amino Acids (Prosource No Carb Liquid Pkt) 30 ml PO BID@0800,1730 [facility] Amiodarone HCl (Cordarone -) 200 mg PO BID [facility] Last Admin: 09/16/17 10:03 Dose: 200 mg Apixaban (Eliquis -) 5 mg PO BID [facility] Last Admin: 09/16/17 10:03 Dose: 5 mg IV Flush (Picc Line Flush) 8 ml IVPUSH PRN PRN PRN Reason: Protocol Sodium Chloride (Normal Saline -) 1,000 mls @ 150 mls/hr IV ASDIR [facility] Last Admin: 09/16/17 10:03 Dose: Not Given Lactobacillus Acidophilus (Bacid -) 1 tab PO DAILY [facility] Last Admin: 09/16/17 10:03 Dose: 1 tab Levothyroxine Sodium (Synthroid -) 88 mcg PO DAILY@0700 [facility] Last Admin: 09/16/17 06:03 Dose: 88 mcg Magnesium Oxide (Mag-Ox -) 800 mg PO BID [facility] Last Admin: 09/16/17 10:03 Dose: 800 mg Metoprolol Tartrate (Lopressor -) 25 mg PO BID [facility] Last Admin: 09/16/17 10:03 Dose: 25 mg Nystatin (Nystop Powder -) 1 applic TP DAILY [facility] Last Admin: 09/15/17 14:00 Dose: 1 applic Ondansetron HCl (Zofran Odt -) 4 mg SL Q6H PRN PRN Reason: NAUSEA Last Admin: 09/04/17 15:40 Dose: 4 mg Tamsulosin HCl (Flomax -) 0.4 mg PO DAILY@1730 [facility] Last Admin: 09/15/17 17:16 Dose: Not Given - Objective Vital Signs: Vital Signs Temperature 99.1 F 09/16/17 10:00 Pulse Rate 93 H 09/16/17 10:48 Respiratory Rate 16 09/16/17 14:40 Blood Pressure 103/61 09/16/17 10:00 O2 Sat by Pulse Oximetry (%) 95 09/16/17 10:48 Constitutional: Yes: Thin, Other (LETHARGIC) Eyes: Yes: WNL HENT: Yes: WNL Neck: Yes: Supple (TRACH) Cardiovascular: Yes: Pulse Irregular, S1, S2 Respiratory: Yes: Rhonchi (FEW SCATTERED MARY RHONCHI) Gastrointestinal: Yes: Normal Bowel Sounds, Soft Extremities: Yes: WNL Edema: No Labs: CBC, BMP Problem List - Problems (1) Fever Code(s): R50.9 - FEVER, UNSPECIFIED Qualifiers: Fever type: unspecified Qualified Code(s): R50.9 - Fever, unspecified (2) Tracheostomy dependence Code(s): Z93.0 - TRACHEOSTOMY STATUS (3) Chest pain Code(s): R07.9 - CHEST PAIN, UNSPECIFIED Qualifiers: Chest pain type: pleurodynia Qualified Code(s): R07.81 - Pleurodynia (4) A-fib Code(s): I48.91 - UNSPECIFIED ATRIAL FIBRILLATION Qualifiers: Atrial fibrillation type: paroxysmal Qualified Code(s): I48.0 - Paroxysmal atrial fibrillation (5) COPD (chronic obstructive pulmonary disease) Code(s): J44.9 - CHRONIC OBSTRUCTIVE PULMONARY DISEASE, UNSPECIFIED Qualifiers: COPD type: unspecified COPD Qualified Code(s): J44.9 - Chronic obstructive pulmonary disease, unspecified (6) Acute on chronic respiratory failure with hypoxia and hypercapnia Code(s): J96.21 - ACUTE AND CHRONIC RESPIRATORY FAILURE WITH HYPOXIA; J96.22 - ACUTE AND CHRONIC RESPIRATORY FAILURE WITH HYPERCAPNIA (7) Diastolic heart failure Code(s): I50.30 - UNSPECIFIED DIASTOLIC (CONGESTIVE) HEART FAILURE Qualifiers: Heart failure chronicity: chronic Qualified Code(s): I50.32 - Chronic diastolic (congestive) heart failure (8) Anemia Code(s): D64.9 - ANEMIA, UNSPECIFIED Qualifiers: Anemia type: unspecified type Qualified Code(s): D64.9 - Anemia, unspecified (9) Sacral decubitus ulcer, stage II Code(s): L89.152 - PRESSURE ULCER OF SACRAL REGION, STAGE 2 (10) Hematuria Code(s): R31.9 - HEMATURIA, UNSPECIFIED Qualifiers: Hematuria type: unspecified type Qualified Code(s): R31.9 - Hematuria, unspecified Assessment/Plan IMP ACUTE ON CHRONIC HYPOXEMIC/HYPERCAPNEIC RESPIRATORY FAILURE INVASIVE ANT MEDIASTINAL MASS + 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 ?MUCOUS PLUG FEVER ANEMIA COPD AFIB HEMATURIA DIASTOLIC HF HYPERKALEMIA HYPOTENSION PLAN VENT SUPPORT ON AC MODE INHALED BRONCHODILATORS MONITOR H+H AC COMFORT CARE DR RAGLAND Problem List - Problems (1) Fever Code(s): R50.9 - FEVER, UNSPECIFIED Qualifiers: Fever type: unspecified Qualified Code(s): R50.9 - Fever, unspecified; R50.9 - Fever, unspecified (2) Hematuria Code(s): R31.9 - HEMATURIA, UNSPECIFIED Qualifiers: Hematuria type: unspecified type Qualified Code(s): R31.9 - Hematuria, unspecified; R31.9 - Hematuria, unspecified (3) Sacral decubitus ulcer, stage II Code(s): L89.152 - PRESSURE ULCER OF [place]CR[place] REG[place], STAGE 2 (4) A-fib Code(s): I48.91 - UNSPECIFIED ATRIAL FIBRILLATION Qualifiers: (5) Acute on chronic respiratory failure with hypoxia and hypercapnia Code(s): J96.21 - ACUTE AND CHRONIC RESPIRATORY FAILURE WITH HYPOXIA J96.22 - ACUTE AND CHRONIC RESPIRATORY FAILURE WITH HYPERCAPNIA (6) Anemia Code(s): D64.9 - ANEMIA, UNSPECIFIED Qualifiers: Anemia type: unspecified type Qualified Code(s): D64.9 - Anemia, unspecified; D64.9 - Anemia, unspecified (7) COPD (chronic obstructive pulmonary disease) Code(s): J44.9 - CHRONIC OBSTRUCTIVE PULMONARY DISEASE, UNSPECIFIED Qualifiers : COPD type: unspecified COPD Qualified Code(s): J44.9 - Chronic obstructive pulmonary disease, unspecified; J44.9 - Chronic obstructive pulmonary disease, unspecified; J44.9 - Chronic obstructive pulmonary disease, unspecified; J44.9 - Chronic obstructive pulmonary disease, unspecified (8) Chest pain Code(s): R07.9 - CHEST PAIN, UNSPECIFIED Qualifiers: Chest pain type: pleurodynia Qualified Code(s): R07.81 - Pleurodynia ; R07.81 - Pleurodynia (9) Diastolic heart failure Code(s): I50.30 - UNSPECIFIED DIASTOLIC (CONGESTIVE) HEART FAILURE Qualifiers : Heart failure chronicity: chronic Qualified Code(s): I50.32 - Chronic diastolic (congestive) heart failure; I50.32 - Chronic diastolic ( congestive) heart failure; I50.32 - Chronic diastolic (congestive) heart failure ; I50.32 - Chronic diastolic (congestive) heart failure (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
[2017-09-16] MEDS: AMINO ACIDS/PROTEIN HYDROLYS 30 ML LIQUID.PKT PO SCH ×2 (17:11→17:29)
[2017-09-16] MEDS: TAMSULOSIN HCL 0.4 MG CAP.ER.24H (FP) PO SCH (17:29)
[2017-09-16] MEDS ORDERED: morphine SULFATE 4 MG/ML VIAL IVPUSH PRN (18:24)
[2017-09-16] MEDS: ACETAMINOPHEN 650 MG SUPP.RECT PR PRN (22:15)
[2017-09-17] MEDS ORDERED: PT OWN MED DRAWER 7, Y5N ONE ×2 (00:43→12:17)
[2017-09-17] MEDS: LEVOTHYROXINE NA 88 MCG TABLET (FP) PO SCH (06:20)
[2017-09-17] MEDS: AMINO ACIDS/PROTEIN HYDROLYS 30 ML LIQUID.PKT PO SCH ×2 (09:44→18:13)
[2017-09-17] MEDS: LACTOBACILLUS ACIDOPHILUS 1 EACH TAB (FP) PO SCH (12:23)
[2017-09-17] MEDS: NYSTATIN POWDER 100,000 UNITS/GM - 15 GM TOPICAL POWDER TP SCH (12:24)
[2017-09-17] MEDS: APIXABAN 5 MG TABLET PO SCH ×3 (12:24→22:17)
[2017-09-17] MEDS: METOPROLOL TARTRATE 25 MG TABLET (FP) PO SCH ×3 (12:24→22:17)
[2017-09-17] MEDS: MAGNESIUM OXIDE 400 MG TABLET (FP) PO SCH ×3 (12:24→22:17)
[2017-09-17] MEDS: AMIODARONE HCL 200 MG TABLET (FP) PO SCH ×3 (12:24→22:18)
--- NOTE | 2017-09-17 13:07 | PN ---
Progress Note (short form) - Note Progress Note: PULMONARY Vented on volume assist control with 40% FiO2. Still with intermittent fevers. Last Vital Signs Temp Pulse Resp BP Pulse Ox 97.1 F L 100 H 15 120/58 95 09/17/17 09:00 09/17/17 11:00 09/17/17 11:00 09/17/17 11:00 09/17/17 09:59 Gen: vented, awake Heart: tachycardic, regular Lung: distant breath sounds Abd: soft, nontender Ext: no edema CBC, BMP 09/15/17 07:10 09/15/17 07:10 Active Medications Acetaminophen (Tylenol -) 650 mg PO Q6H PRN PRN Reason: FEVER OR PAIN Last Admin: 09/15/17 21:09 Dose: 650 mg Acetaminophen (Tylenol Oral Solution -) 650 mg PO Q4H PRN PRN Reason: FEVER OR PAIN Last Admin: 09/13/17 10:45 Dose: 650 mg Acetaminophen (Tylenol Suppository -) 650 mg [place] Q6H PRN PRN Reason: FEVER OR PAIN Last Admin: 09/16/17 22:15 Dose: 650 mg Amino Acids (Prosource No Carb Liquid Pkt) 30 ml PO BID@0800,1730 [facility] Last Admin: 09/17/17 09:44 Dose: Not Given Amiodarone HCl (Cordarone -) 200 mg PO BID [facility] Last Admin: 09/17/17 12:24 Dose: 200 mg Apixaban (Eliquis -) 5 mg PO BID [facility] Last Admin: 09/17/17 12:24 Dose: 5 mg IV Flush (Picc Line Flush) 8 ml IVPUSH PRN PRN PRN Reason: Protocol Lactobacillus Acidophilus (Bacid -) 1 tab PO DAILY [facility] Last Admin: 09/17/17 12:23 Dose: 1 tab Levothyroxine Sodium (Synthroid -) 88 mcg PO DAILY@0700 [facility] Last Admin: 09/17/17 06:20 Dose: Not Given Magnesium Oxide (Mag-Ox -) 800 mg PO BID [facility] Last Admin: 09/17/17 12:24 Dose: 800 mg Metoprolol Tartrate (Lopressor -) 25 mg PO BID [facility] Last Admin: 09/17/17 12:24 Dose: 25 mg Morphine Sulfate (Morphine Sulfate) 2 mg IVPUSH Q6H PRN PRN Reason: PAIN Nystatin (Nystop Powder -) 1 applic TP DAILY [facility] Last Admin: 09/17/17 12:24 Dose: 1 applic Ondansetron HCl (Zofran Odt -) 4 mg SL Q6H PRN PRN Reason: NAUSEA Last Admin: 09/04/17 15:40 Dose: 4 mg Tamsulosin HCl (Flomax -) 0.4 mg PO DAILY@1730 [facility] Last Admin: 09/16/17 17:29 Dose: Not Given A/P Acute on Chronic Hypoxic and Hypercapneic Respiratory Failure 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
--- NOTE | 2017-09-17 15:55 | PN ---
Progress Note (short form) - Note Progress Note: Chief Complaint: Events noted, notes reviewed, awake and alert, in no distress History of Present Illness: Seen and examined. Events noted, notes reviewed, awake and alert, in no distress Medications: Current Medications Acetaminophen (Tylenol -) 650 mg PO Q6H PRN PRN Reason: FEVER OR PAIN Last Admin: 09/15/17 21:09 Dose: 650 mg Acetaminophen (Tylenol Oral Solution -) 650 mg PO Q4H PRN PRN Reason: FEVER OR PAIN Last Admin: 09/13/17 10:45 Dose: 650 mg Acetaminophen (Tylenol Suppository -) 650 mg [place] Q6H PRN PRN Reason: FEVER OR PAIN Last Admin: 09/16/17 22:15 Dose: 650 mg Amino Acids (Prosource No Carb Liquid Pkt) 30 ml PO BID@0800,1730 [facility] Last Admin: 09/17/17 09:44 Dose: Not Given Amiodarone HCl (Cordarone -) 200 mg PO BID [facility] Last Admin: 09/17/17 12:24 Dose: 200 mg Apixaban (Eliquis -) 5 mg PO BID [facility] Last Admin: 09/17/17 12:24 Dose: 5 mg IV Flush (Picc Line Flush) 8 ml IVPUSH PRN PRN PRN Reason: Protocol Lactobacillus Acidophilus (Bacid -) 1 tab PO DAILY [facility] Last Admin: 09/17/17 12:23 Dose: 1 tab Levothyroxine Sodium (Synthroid -) 88 mcg PO DAILY@0700 [facility] Last Admin: 09/17/17 06:20 Dose: Not Given Magnesium Oxide (Mag-Ox -) 800 mg PO BID [facility] Last Admin: 09/17/17 12:24 Dose: 800 mg Metoprolol Tartrate (Lopressor -) 25 mg PO BID [facility] Last Admin: 09/17/17 12:24 Dose: 25 mg Morphine Sulfate (Morphine Sulfate) 2 mg IVPUSH Q6H PRN PRN Reason: PAIN Nystatin (Nystop Powder -) 1 applic TP DAILY [facility] Last Admin: 09/17/17 12:24 Dose: 1 applic Ondansetron HCl (Zofran Odt -) 4 mg SL Q6H PRN PRN Reason: NAUSEA Last Admin: 09/04/17 15:40 Dose: 4 mg Tamsulosin HCl (Flomax -) 0.4 mg PO DAILY@1730 [facility] Last Admin: 09/16/17 17:29 Dose: Not Given Vital Signs: Last Vital Signs Temp Pulse Resp BP Pulse Ox 97.1 F L 100 H 17 120/58 95 09/17/17 09:00 09/17/17 11:00 09/17/17 14:04 09/17/17 11:00 09/17/17 10:00 Intake & Output 09/14/17 09/15/17 09/16/17 09/17/17 23:59 23:59 23:59 23:59 Intake Total 3488 3370 900 30 Output Total 270 700 300 Balance 3218 2670 600 30 Weight 98 lb 5.219 oz Constitutional: No Distress, Calm Neck: Supple Negative JVD No Bruit Respiratory: Bilateral Scattered Rhonchi Cardiovascular: S1 S2 Regularly Rate and Rhythm Gastrointestinal: Soft Benign Normal Bowel Sounds Ext: No Edema Labs: CBC, BMP 09/15/17 07:10 09/15/17 07:10 Assessment/Plan ASSESSMENT: 1. Post resuscitation with paroxysmal Atrial Fibrillation/atrial tachycardia on NOAC's/Eliquis, [id number] score of 4 2. COPD with acute on chronic hypoxic/hypercapneic respiratory failure post tracheostomy, on ventilator 3. Diastolic LV dysfunction with class I NYHA classification LV congestive heart failure, compensated/euvolemic 4. HTN 5. Hypothyroidism 6. History of C. Difficile Colitis 7. Acute renal insufficiency, resolved 8. Anemia post transfusion PLAN: 1. Continue Eliquis 2. Continue Amiodarone but decrease dosage 3. Continue Lopressor 4. Overall poor prognosis considering the above-noted co-morbidities, awaiting palliative care consult Kristi Hardwick M.D.
--- NOTE | 2017-09-17 17:00 | PN ---
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 Patient aware of her diagnosis Biopsy results shows NSCC-SCC -Sister apprehensive about making patient DNR. - Current Medication List Current Medications: Active Medications Acetaminophen (Tylenol -) 650 mg PO Q6H PRN PRN Reason: FEVER OR PAIN Last Admin: 09/15/17 21:09 Dose: 650 mg Acetaminophen (Tylenol Oral Solution -) 650 mg PO Q4H PRN PRN Reason: FEVER OR PAIN Last Admin: 09/13/17 10:45 Dose: 650 mg Acetaminophen (Tylenol Suppository -) 650 mg [place] Q6H PRN PRN Reason: FEVER OR PAIN Last Admin: 09/16/17 22:15 Dose: 650 mg Amino Acids (Prosource No Carb Liquid Pkt) 30 ml PO BID@0800,1730 [facility] Last Admin: 09/17/17 09:44 Dose: Not Given Amiodarone HCl (Cordarone -) 200 mg PO BID [facility] Last Admin: 09/17/17 12:24 Dose: 200 mg Apixaban (Eliquis -) 5 mg PO BID [facility] Last Admin: 09/17/17 12:24 Dose: 5 mg IV Flush (Picc Line Flush) 8 ml IVPUSH PRN PRN PRN Reason: Protocol Lactobacillus Acidophilus (Bacid -) 1 tab PO DAILY [facility] Last Admin: 09/17/17 12:23 Dose: 1 tab Levothyroxine Sodium (Synthroid -) 88 mcg PO DAILY@0700 [facility] Last Admin: 09/17/17 06:20 Dose: Not Given Magnesium Oxide (Mag-Ox -) 800 mg PO BID [facility] Last Admin: 09/17/17 12:24 Dose: 800 mg Metoprolol Tartrate (Lopressor -) 25 mg PO BID [facility] Last Admin: 09/17/17 12:24 Dose: 25 mg Morphine Sulfate (Morphine Sulfate) 2 mg IVPUSH Q6H PRN PRN Reason: PAIN Nystatin (Nystop Powder -) 1 applic TP DAILY [facility] Last Admin: 09/17/17 12:24 Dose: 1 applic Ondansetron HCl (Zofran Odt -) 4 mg SL Q6H PRN PRN Reason: NAUSEA Last Admin: 09/04/17 15:40 Dose: 4 mg Tamsulosin HCl (Flomax -) 0.4 mg PO DAILY@1730 [facility] Last Admin: 09/16/17 17:29 Dose: Not Given - Objective Vital Signs: Vital Signs Temperature 97.1 F L 09/17/17 09:00 Pulse Rate 100 H 09/17/17 11:00 Respiratory Rate 17 09/17/17 14:04 Blood Pressure 120/58 09/17/17 11:00 O2 Sat by Pulse Oximetry (%) 95 09/17/17 10:00 Constitutional: Yes: Well Nourished, No Distress, Calm Cardiovascular: Yes: Regular Rate and Rhythm Respiratory: Yes: Regular Musculoskeletal: Yes: WNL Extremities: Yes: WNL Edema: Yes (generalized) Peripheral Pulses WNL: Yes Neurological: Yes: Alert, Oriented Psychiatric: Yes: Alert, Oriented Labs: CBC, BMP 09/15/17 07:10 09/15/17 07:10 INR, PTT INR 1.47 (0.82-1.09) H 09/12/17 08:10 Fibrinogen 532.0 mg/dL (238-498) H 09/10/17 11:30 Problem List - Problems (1) Fever Assessment/Plan: -febrile last night -tylenol for fever over 100.0F Code(s): R50.9 - FEVER, UNSPECIFIED Qualifiers: Fever type: unspecified Qualified Code(s): R50.9 - Fever, unspecified (2) A-fib Assessment/Plan: -Chronic -uncontrolled 2/2 to sepsis and fever -eliquis -uncontrolled at this time, ordered digoxin Code(s): I48.91 - UNSPECIFIED ATRIAL FIBRILLATION Qualifiers: Atrial fibrillation type: paroxysmal Qualified Code(s): I48.0 - Paroxysmal atrial fibrillation (3) Acute and chronic respiratory failure with hypoxia Assessment/Plan: -on mechanical vent -poor prognosis knowing the existence of possible malignant neoplasm Code(s): J96.21 - ACUTE AND CHRONIC RESPIRATORY FAILURE WITH HYPOXIA (4) Sepsis Assessment/Plan: -on admission -BP okay -seen by ID -overall poor prognosis Code(s): A41.9 - SEPSIS, UNSPECIFIED ORGANISM Qualifiers: Sepsis type: sepsis due to unspecified organism Qualified Code(s): A41.9 - Sepsis, unspecified organism (5) Systemic inflammatory response syndrome (SIRS) Assessment/Plan: -seen by ID -Tylenol for fever over 100.0F Code(s): R65.10 - SIRS OF NON-INFECTIOUS ORIGIN W/O ACUTE ORGAN DYSFUNCTION (6) Sacral decubitus ulcer, stage II Assessment/Plan: -seen by Vascular -offloading to the area -santyl -wound culture shows MRSA and VRE Code(s): L89.152 - PRESSURE ULCER OF SACRAL REGION, STAGE 2 (7) Neoplasm of mediastinum Assessment/Plan: -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
[2017-09-17] MEDS: TAMSULOSIN HCL 0.4 MG CAP.ER.24H (FP) PO SCH (18:13)
--- NOTE | 2017-09-17 19:06 | PN ---
Progress Note (short form) - Note Progress Note: Current Medications Acetaminophen (Tylenol -) 650 mg PO Q6H PRN PRN Reason: FEVER OR PAIN Last Admin: 09/15/17 21:09 Dose: 650 mg Acetaminophen (Tylenol Oral Solution -) 650 mg PO Q4H PRN PRN Reason: FEVER OR PAIN Last Admin: 09/13/17 10:45 Dose: 650 mg Acetaminophen (Tylenol Suppository -) 650 mg [place] Q6H PRN PRN Reason: FEVER OR PAIN Last Admin: 09/16/17 22:15 Dose: 650 mg Amino Acids (Prosource No Carb Liquid Pkt) 30 ml PO BID@0800,1730 [facility] Last Admin: 09/17/17 18:13 Dose: Not Given Amiodarone HCl (Cordarone -) 200 mg PO BID [facility] Last Admin: 09/17/17 12:24 Dose: 200 mg Apixaban (Eliquis -) 5 mg PO BID [facility] Last Admin: 09/17/17 12:24 Dose: 5 mg IV Flush (Picc Line Flush) 8 ml IVPUSH PRN PRN PRN Reason: Protocol Lactobacillus Acidophilus (Bacid -) 1 tab PO DAILY [facility] Last Admin: 09/17/17 12:23 Dose: 1 tab Levothyroxine Sodium (Synthroid -) 88 mcg PO DAILY@0700 [facility] Last Admin: 09/17/17 06:20 Dose: Not Given Magnesium Oxide (Mag-Ox -) 800 mg PO BID [facility] Last Admin: 09/17/17 12:24 Dose: 800 mg Metoprolol Tartrate (Lopressor -) 25 mg PO BID [facility] Last Admin: 09/17/17 12:24 Dose: 25 mg Morphine Sulfate (Morphine Sulfate) 2 mg IVPUSH Q6H PRN PRN Reason: PAIN Nystatin (Nystop Powder -) 1 applic TP DAILY [facility] Last Admin: 09/17/17 12:24 Dose: 1 applic Ondansetron HCl (Zofran Odt -) 4 mg SL Q6H PRN PRN Reason: NAUSEA Last Admin: 09/04/17 15:40 Dose: 4 mg Tamsulosin HCl (Flomax -) 0.4 mg PO DAILY@1730 [facility] Last Admin: 09/17/17 18:13 Dose: Not Given awake, nonverbal, trache Last Vital Signs Temp Pulse Resp BP Pulse Ox 98 F 93 H 18 95/47 95 09/17/17 17:43 09/17/17 17:43 09/17/17 17:43 09/17/17 17:43 09/17/17 10:00 lungs vented Heart RRR Abd soft no guarding Ext no edema CBC, BMP 09/15/17 07:10 09/15/17 07:10 Plan- no new intervention
[2017-09-17] MEDS: ACETAMINOPHEN 325 MG TABLET (FP) PO PRN (22:03)
[2017-09-17] MEDS: ACETAMINOPHEN 650 MG SUPP.RECT PR PRN (22:19)
[2017-09-18] MEDS: LEVOTHYROXINE NA 88 MCG TABLET (FP) PO SCH (06:05)
--- NOTE | 2017-09-18 10:43 | PN ---
Progress Note (short form) - Note Progress Note: Chief Complaint: Events noted, notes reviewed, resting comfortably, in no distress, remains on the ventilator History of Present Illness: Seen and examined. Events noted, notes reviewed, resting comfortably, in no distress, remains on the ventilator Medications: Current Medications Acetaminophen (Tylenol -) 650 mg PO Q6H PRN PRN Reason: FEVER OR PAIN Last Admin: 09/15/17 21:09 Dose: 650 mg Acetaminophen (Tylenol Oral Solution -) 650 mg PO Q4H PRN PRN Reason: FEVER OR PAIN Last Admin: 09/13/17 10:45 Dose: 650 mg Acetaminophen (Tylenol Suppository -) 650 mg [place] Q6H PRN PRN Reason: FEVER OR PAIN Last Admin: 09/17/17 22:19 Dose: 650 mg Amino Acids (Prosource No Carb Liquid Pkt) 30 ml PO BID@0800,1730 [facility] Last Admin: 09/17/17 18:13 Dose: Not Given Amiodarone HCl (Cordarone -) 200 mg PO BID [facility] Last Admin: 09/17/17 22:18 Dose: Not Given Apixaban (Eliquis -) 5 mg PO BID [facility] Last Admin: 09/17/17 22:17 Dose: Not Given IV Flush (Picc Line Flush) 8 ml IVPUSH PRN PRN PRN Reason: Protocol Lactobacillus Acidophilus (Bacid -) 1 tab PO DAILY [facility] Last Admin: 09/17/17 12:23 Dose: 1 tab Levothyroxine Sodium (Synthroid -) 88 mcg PO DAILY@0700 [facility] Last Admin: 09/18/17 06:05 Dose: 88 mcg Magnesium Oxide (Mag-Ox -) 800 mg PO BID [facility] Last Admin: 09/17/17 22:17 Dose: Not Given Metoprolol Tartrate (Lopressor -) 25 mg PO BID [facility] Last Admin: 09/17/17 22:17 Dose: Not Given Morphine Sulfate (Morphine Sulfate) 2 mg IVPUSH Q6H PRN PRN Reason: PAIN Nystatin (Nystop Powder -) 1 applic TP DAILY [facility] Last Admin: 09/17/17 12:24 Dose: 1 applic Ondansetron HCl (Zofran Odt -) 4 mg SL Q6H PRN PRN Reason: NAUSEA Last Admin: 09/04/17 15:40 Dose: 4 mg Tamsulosin HCl (Flomax -) 0.4 mg PO DAILY@1730 [facility] Last Admin: 09/17/17 18:13 Dose: Not Given Vital Signs: Last Vital Signs Temp Pulse Resp BP Pulse Ox 98.5 F 97 H 14 102/46 96 09/18/17 06:00 09/18/17 06:00 09/18/17 06:46 09/18/17 06:00 09/18/17 10:00 Intake & Output 09/15/17 09/16/17 09/17/17 09/18/17 23:59 23:59 23:59 23:59 Intake Total 3370 900 90 50 Output Total 700 300 350 100 Balance 2670 600 -260 -50 Constitutional: No Distress, Calm Neck: Supple Negative JVD No Bruit Respiratory: Bilateral Scattered Rhonchi Cardiovascular: S1 S2 Regularly Rate and Rhythm Gastrointestinal: Soft Benign Normal Bowel Sounds Ext: No Edema Labs: CBC, BMP 09/15/17 07:10 09/15/17 07:10 Assessment/Plan ASSESSMENT: 1. Post resuscitation with paroxysmal Atrial Fibrillation/atrial tachycardia on NOAC's/Eliquis, [id number] score of 4 2. COPD with acute on chronic hypoxic/hypercapneic respiratory failure post tracheostomy, on ventilator 3. Diastolic LV dysfunction with class I NYHA classification LV congestive heart failure, compensated/euvolemic 4. HTN 5. Hypothyroidism 6. History of C. Difficile Colitis 7. Acute renal insufficiency, resolved 8. Anemia post transfusion PLAN: 1. Continue Eliquis 2. Continue Amiodarone, but decrease dosage as outlined in yesterday's note 3. Continue Lopressor 4. Overall poor prognosis considering the above-noted co-morbidities Kristi Hardwick M.D.
[2017-09-18] MEDS: AMINO ACIDS/PROTEIN HYDROLYS 30 ML LIQUID.PKT PO SCH ×2 (10:48→18:07)
[2017-09-18] MEDS ORDERED: PT OWN MED DRAWER 7, Y5N ONE ×2 (11:09→20:31)
[2017-09-18] MEDS: METOPROLOL TARTRATE 25 MG TABLET (FP) PO SCH ×2 (11:22→21:01)
[2017-09-18] MEDS: LACTOBACILLUS ACIDOPHILUS 1 EACH TAB (FP) PO SCH (11:28)
[2017-09-18] MEDS: MAGNESIUM OXIDE 400 MG TABLET (FP) PO SCH ×2 (11:28→21:01)
[2017-09-18] MEDS: APIXABAN 5 MG TABLET PO SCH ×2 (11:28→21:01)
[2017-09-18] MEDS: AMIODARONE HCL 200 MG TABLET (FP) PO SCH (11:29)
[2017-09-18] MEDS: NYSTATIN POWDER 100,000 UNITS/GM - 15 GM TOPICAL POWDER TP SCH (11:29)
--- NOTE | 2017-09-18 14:16 | PN ---
Progress Note (short form) - Note Progress Note: PULMONARY Vented on volume assist control with 40% FiO2. Intermittent fevers persist. Last Vital Signs Temp Pulse Resp BP Pulse Ox 98.1 F 103 H 18 97/51 96 09/18/17 08:00 09/18/17 08:00 09/18/17 11:00 09/18/17 08:00 09/18/17 10:00 Gen: vented, awake Heart: tachycardic, regular Lung: distant breath sounds Abd: soft, nontender Ext: no edema CBC, BMP 09/15/17 07:10 09/15/17 07:10 Active Medications Acetaminophen (Tylenol -) 650 mg PO Q6H PRN PRN Reason: FEVER OR PAIN Last Admin: 09/15/17 21:09 Dose: 650 mg Acetaminophen (Tylenol Oral Solution -) 650 mg PO Q4H PRN PRN Reason: FEVER OR PAIN Last Admin: 09/13/17 10:45 Dose: 650 mg Acetaminophen (Tylenol Suppository -) 650 mg [place] Q6H PRN PRN Reason: FEVER OR PAIN Last Admin: 09/17/17 22:19 Dose: 650 mg Amino Acids (Prosource No Carb Liquid Pkt) 30 ml PO BID@0800,1730 [facility] Last Admin: 09/18/17 10:48 Dose: Not Given Amiodarone HCl (Cordarone -) 200 mg PO DAILY [facility] Apixaban (Eliquis -) 5 mg PO BID [facility] Last Admin: 09/18/17 11:28 Dose: 5 mg IV Flush (Picc Line Flush) 8 ml IVPUSH PRN PRN PRN Reason: Protocol Lactobacillus Acidophilus (Bacid -) 1 tab PO DAILY [facility] Last Admin: 09/18/17 11:28 Dose: 1 tab Levothyroxine Sodium (Synthroid -) 88 mcg PO DAILY@0700 [facility] Last Admin: 09/18/17 06:05 Dose: 88 mcg Magnesium Oxide (Mag-Ox -) 800 mg PO BID [facility] Last Admin: 09/18/17 11:28 Dose: 800 mg Metoprolol Tartrate (Lopressor -) 25 mg PO BID [facility] Last Admin: 09/18/17 11:22 Dose: Not Given Morphine Sulfate (Morphine Sulfate) 2 mg IVPUSH Q6H PRN PRN Reason: PAIN Nystatin (Nystop Powder -) 1 applic TP DAILY [facility] Last Admin: 09/18/17 11:29 Dose: 1 applic Ondansetron HCl (Zofran Odt -) 4 mg SL Q6H PRN PRN Reason: NAUSEA Last Admin: 09/04/17 15:40 Dose: 4 mg Tamsulosin HCl (Flomax -) 0.4 mg PO DAILY@1730 [facility] Last Admin: 09/17/17 18:13 Dose: Not Given A/P Acute on Chronic Hypoxic and Hypercapneic Respiratory Failure 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
[2017-09-18] MEDS: TAMSULOSIN HCL 0.4 MG CAP.ER.24H (FP) PO SCH (18:07)
--- NOTE | 2017-09-18 20:39 | PN ---
Progress Note (short form) - Note Progress Note: Current Medications Acetaminophen (Tylenol -) 650 mg PO Q6H PRN PRN Reason: FEVER OR PAIN Last Admin: 09/15/17 21:09 Dose: 650 mg Acetaminophen (Tylenol Oral Solution -) 650 mg PO Q4H PRN PRN Reason: FEVER OR PAIN Last Admin: 09/13/17 10:45 Dose: 650 mg Acetaminophen (Tylenol Suppository -) 650 mg [place] Q6H PRN PRN Reason: FEVER OR PAIN Last Admin: 09/17/17 22:19 Dose: 650 mg Amino Acids (Prosource No Carb Liquid Pkt) 30 ml PO BID@0800,1730 [facility] Last Admin: 09/18/17 18:07 Dose: Not Given Amiodarone HCl (Cordarone -) 200 mg PO DAILY [facility] Apixaban (Eliquis -) 5 mg PO BID [facility] Last Admin: 09/18/17 11:28 Dose: 5 mg IV Flush (Picc Line Flush) 8 ml IVPUSH PRN PRN PRN Reason: Protocol Lactobacillus Acidophilus (Bacid -) 1 tab PO DAILY [facility] Last Admin: 09/18/17 11:28 Dose: 1 tab Levothyroxine Sodium (Synthroid -) 88 mcg PO DAILY@0700 [facility] Last Admin: 09/18/17 06:05 Dose: 88 mcg Magnesium Oxide (Mag-Ox -) 800 mg PO BID [facility] Last Admin: 09/18/17 11:28 Dose: 800 mg Metoprolol Tartrate (Lopressor -) 25 mg PO BID [facility] Last Admin: 09/18/17 11:22 Dose: Not Given Morphine Sulfate (Morphine Sulfate) 2 mg IVPUSH Q6H PRN PRN Reason: PAIN Nystatin (Nystop Powder -) 1 applic TP DAILY [facility] Last Admin: 09/18/17 11:29 Dose: 1 applic Ondansetron HCl (Zofran Odt -) 4 mg SL Q6H PRN PRN Reason: NAUSEA Last Admin: 09/04/17 15:40 Dose: 4 mg Tamsulosin HCl (Flomax -) 0.4 mg PO DAILY@1730 [facility] Last Admin: 09/18/17 18:07 Dose: Not Given awake, nonverbal, trache Last Vital Signs Temp Pulse Resp BP Pulse Ox 98.5 F 100 H 17 123/60 96 09/18/17 18:00 09/18/17 18:00 09/18/17 18:02 09/18/17 18:00 09/18/17 10:00 lungs vented Heart RRR Abd soft no guarding Ext no edema CBC, BMP 09/15/17 07:10 09/15/17 07:10 Plan- no new intervention update labs
--- NOTE | 2017-09-18 23:06 | PN ---
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 Patient aware of her diagnosis Biopsy results shows NSCC-SCC -Sister apprehensive about making patient DNR. more awake today - Current Medication List Current Medications: Active Medications Acetaminophen (Tylenol -) 650 mg PO Q6H PRN PRN Reason: FEVER OR PAIN Last Admin: 09/15/17 21:09 Dose: 650 mg Acetaminophen (Tylenol Oral Solution -) 650 mg PO Q4H PRN PRN Reason: FEVER OR PAIN Last Admin: 09/13/17 10:45 Dose: 650 mg Acetaminophen (Tylenol Suppository -) 650 mg [place] Q6H PRN PRN Reason: FEVER OR PAIN Last Admin: 09/17/17 22:19 Dose: 650 mg Amino Acids (Prosource No Carb Liquid Pkt) 30 ml PO BID@0800,1730 [facility] Last Admin: 09/18/17 18:07 Dose: Not Given Amiodarone HCl (Cordarone -) 200 mg PO DAILY [facility] Apixaban (Eliquis -) 5 mg PO BID [facility] Last Admin: 09/18/17 21:01 Dose: 5 mg IV Flush (Picc Line Flush) 8 ml IVPUSH PRN PRN PRN Reason: Protocol Lactobacillus Acidophilus (Bacid -) 1 tab PO DAILY [facility] Last Admin: 09/18/17 11:28 Dose: 1 tab Levothyroxine Sodium (Synthroid -) 88 mcg PO DAILY@0700 [facility] Last Admin: 09/18/17 06:05 Dose: 88 mcg Magnesium Oxide (Mag-Ox -) 800 mg PO BID [facility] Last Admin: 09/18/17 21:01 Dose: 800 mg Metoprolol Tartrate (Lopressor -) 25 mg PO BID [facility] Last Admin: 09/18/17 21:01 Dose: 25 mg Morphine Sulfate (Morphine Sulfate) 2 mg IVPUSH Q6H PRN PRN Reason: PAIN Nystatin (Nystop Powder -) 1 applic TP DAILY [facility] Last Admin: 09/18/17 11:29 Dose: 1 applic Ondansetron HCl (Zofran Odt -) 4 mg SL Q6H PRN PRN Reason: NAUSEA Last Admin: 09/04/17 15:40 Dose: 4 mg Tamsulosin HCl (Flomax -) 0.4 mg PO DAILY@1730 [facility] Last Admin: 09/18/17 18:07 Dose: Not Given - Objective Vital Signs: Vital Signs Temperature 99.2 F 09/18/17 21:59 Pulse Rate 111 H 09/18/17 21:59 Respiratory Rate 17 09/18/17 21:59 Blood Pressure 117/78 09/18/17 21:59 O2 Sat by Pulse Oximetry (%) 95 09/18/17 21:59 Constitutional: Yes: No Distress, Calm, Cachectic Cardiovascular: Yes: Pulse Irregular Respiratory: Yes: Mechanically Ventilated Edema: Yes (generalized) Peripheral Pulses WNL: Yes Neurological: Yes: Alert, Oriented Psychiatric: Yes: Alert Labs: CBC, BMP 09/15/17 07:10 09/15/17 07:10 INR, PTT INR 1.47 (0.82-1.09) H 09/12/17 08:10 Fibrinogen 532.0 mg/dL (238-498) H 09/10/17 11:30 Problem List - Problems (1) Fever Assessment/Plan: -febrile last night -tylenol for fever over 100.0F Code(s): R50.9 - FEVER, UNSPECIFIED Qualifiers: Fever type: unspecified Qualified Code(s): R50.9 - Fever, unspecified (2) A-fib Assessment/Plan: -Chronic -uncontrolled 2/2 to sepsis and fever -eliquis -uncontrolled at this time, ordered digoxin Code(s): I48.91 - UNSPECIFIED ATRIAL FIBRILLATION Qualifiers: Atrial fibrillation type: paroxysmal Qualified Code(s): I48.0 - Paroxysmal atrial fibrillation (3) Acute and chronic respiratory failure with hypoxia Assessment/Plan: -on mechanical vent -poor prognosis knowing the existence of possible malignant neoplasm Code(s): J96.21 - ACUTE AND CHRONIC RESPIRATORY FAILURE WITH HYPOXIA (4) Sepsis Assessment/Plan: -on admission -BP okay -seen by ID -overall poor prognosis Code(s): A41.9 - SEPSIS, UNSPECIFIED ORGANISM Qualifiers: Sepsis type: sepsis due to unspecified organism Qualified Code(s): A41.9 - Sepsis, unspecified organism (5) Systemic inflammatory response syndrome (SIRS) Assessment/Plan: -seen by ID -Tylenol for fever over 100.0F Code(s): R65.10 - SIRS OF NON-INFECTIOUS ORIGIN W/O ACUTE ORGAN DYSFUNCTION (6) Sacral decubitus ulcer, stage II Assessment/Plan: -seen by Vascular -offloading to the area -katlyn -wound culture shows MRSA and VRE Code(s): L89.152 - PRESSURE ULCER OF SACRAL REGION, STAGE 2 (7) Neoplasm of mediastinum Assessment/Plan: -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
[2017-09-19] MEDS: LEVOTHYROXINE NA 88 MCG TABLET (FP) PO SCH (06:21)
[2017-09-19 07:09] LABS: MCH 29.9 pg (25.7-33.7); MCHC 31.7 g/dl (32.0-36.0); MEAN CELL VOLUME 94.4 fl (80-96); MEAN PLT VOLUME 8.6 fl (7.5-11.1); PLATELET COUNT 228 K/MM3 (134-434); RDW 17.9 % (11.6-15.6); WHITE BLOOD COUNT 13.4 K/mm3 (4.0-10.0)
[2017-09-19 07:38] LABS: ALBUMIN 1.8 g/dl (3.4-5.0); ANION GAP 12 (8-16); BILIRUBIN,TOTAL 0.5 mg/dL (0.2-1.0); CALCIUM 7.9 mg/dL (8.5-10.1); CO2 18 mmol/L (21-32); CREATININE 0.8 mg/dL (0.55-1.02); GLUCOSE,RANDOM 106 mg/dL (74-106); SGOT/AST 40 U/L (15-37); SGPT/ALT 19 U/L (12-78); TOT PROT 4.6 g/dl (6.4-8.2)
[2017-09-19 07:39] LABS: ALK PHOS 103 U/L (45-117)
[2017-09-19] MEDS ORDERED: PT OWN MED DRAWER 7, Y5N ONE (09:58)
[2017-09-19] MEDS: METOPROLOL TARTRATE 25 MG TABLET (FP) PO SCH ×2 (10:12→21:41)
[2017-09-19] MEDS: AMINO ACIDS/PROTEIN HYDROLYS 30 ML LIQUID.PKT PO SCH ×2 (10:13→16:54)
[2017-09-19] MEDS: AMIODARONE HCL 200 MG TABLET (FP) PO SCH (11:39)
[2017-09-19] MEDS: APIXABAN 5 MG TABLET PO SCH ×2 (11:39→21:40)
[2017-09-19] MEDS: MAGNESIUM OXIDE 400 MG TABLET (FP) PO SCH ×2 (11:39→21:41)
[2017-09-19] MEDS: LACTOBACILLUS ACIDOPHILUS 1 EACH TAB (FP) PO SCH (11:39)
[2017-09-19] MEDS: NYSTATIN POWDER 100,000 UNITS/GM - 15 GM TOPICAL POWDER TP SCH (12:00)
--- NOTE | 2017-09-19 13:10 | PN ---
Progress Note, Physician Chief Complaint: Patient was seen on 5S. Arousable but lethargic Remains on mechanical ventilation via trache History of Present Illness: Patient was seen and examined. Lethargic on vent - Current Medication List Current Medications: Active Medications Acetaminophen (Tylenol -) 650 mg PO Q6H PRN PRN Reason: FEVER OR PAIN Last Admin: 09/15/17 21:09 Dose: 650 mg Acetaminophen (Tylenol Oral Solution -) 650 mg PO Q4H PRN PRN Reason: FEVER OR PAIN Last Admin: 09/13/17 10:45 Dose: 650 mg Acetaminophen (Tylenol Suppository -) 650 mg [place] Q6H PRN PRN Reason: FEVER OR PAIN Last Admin: 09/17/17 22:19 Dose: 650 mg Amino Acids (Prosource No Carb Liquid Pkt) 30 ml PO BID@0800,1730 [facility] Last Admin: 09/19/17 10:13 Dose: Not Given Amiodarone HCl (Cordarone -) 200 mg PO DAILY [facility] Last Admin: 09/19/17 11:39 Dose: Not Given Apixaban (Eliquis -) 5 mg PO BID [facility] Last Admin: 09/19/17 11:39 Dose: Not Given IV Flush (Picc Line Flush) 8 ml IVPUSH PRN PRN PRN Reason: Protocol Lactobacillus Acidophilus (Bacid -) 1 tab PO DAILY [facility] Last Admin: 09/19/17 11:39 Dose: Not Given Levothyroxine Sodium (Synthroid -) 88 mcg PO DAILY@0700 [facility] Last Admin: 09/19/17 06:21 Dose: 88 mcg Magnesium Oxide (Mag-Ox -) 800 mg PO BID [facility] Last Admin: 09/19/17 11:39 Dose: Not Given Metoprolol Tartrate (Lopressor -) 25 mg PO BID [facility] Last Admin: 09/19/17 10:12 Dose: Not Given Morphine Sulfate (Morphine Sulfate) 2 mg IVPUSH Q6H PRN PRN Reason: PAIN Nystatin (Nystop Powder -) 1 applic TP DAILY [facility] Last Admin: 09/18/17 11:29 Dose: 1 applic Ondansetron HCl (Zofran Odt -) 4 mg SL Q6H PRN PRN Reason: NAUSEA Last Admin: 09/04/17 15:40 Dose: 4 mg Tamsulosin HCl (Flomax -) 0.4 mg PO DAILY@1730 [facility] Last Admin: 09/18/17 18:07 Dose: Not Given - Objective Vital Signs: Vital Signs Temperature 97.8 F 09/19/17 10:00 Pulse Rate 91 H 09/19/17 12:00 Respiratory Rate 15 09/19/17 12:00 Blood Pressure 87/42 09/19/17 12:00 O2 Sat by Pulse Oximetry (%) 98 09/19/17 10:06 Cardiovascular: Yes: Pulse Irregular, S1, S2 Respiratory: Yes: Mechanically Ventilated Gastrointestinal: Yes: Normal Bowel Sounds, Soft. No: Tenderness Edema: No Labs: CBC, BMP 09/19/17 06:15 09/19/17 06:15 Problem List - Problems (1) Pneumonia Code(s): J18.9 - PNEUMONIA, UNSPECIFIED ORGANISM Qualifiers: Pneumonia type: due to unspecified organism Laterality: left Lung location: lower lobe of lung Qualified Code(s): J18.1 - Lobar pneumonia, unspecified organism (2) Tracheostomy dependence Code(s): Z93.0 - TRACHEOSTOMY STATUS (3) A-fib Code(s): I48.91 - UNSPECIFIED ATRIAL FIBRILLATION Qualifiers: Atrial fibrillation type: paroxysmal Qualified Code(s): I48.0 - Paroxysmal atrial fibrillation (4) Acute and chronic respiratory failure with hypoxia Code(s): J96.21 - ACUTE AND CHRONIC RESPIRATORY FAILURE WITH HYPOXIA (5) Hypothyroid Code(s): E03.9 - HYPOTHYROIDISM, UNSPECIFIED Qualifiers: Hypothyroidism type: unspecified Qualified Code(s): E03.9 - Hypothyroidism , unspecified (6) COPD (chronic obstructive pulmonary disease) Code(s): J44.9 - CHRONIC OBSTRUCTIVE PULMONARY DISEASE, UNSPECIFIED Qualifiers: COPD type: unspecified COPD Qualified Code(s): J44.9 - Chronic obstructive pulmonary disease, unspecified (7) Acute on chronic respiratory failure with hypoxia and hypercapnia Code(s): J96.21 - ACUTE AND CHRONIC RESPIRATORY FAILURE WITH HYPOXIA; J96.22 - ACUTE AND CHRONIC RESPIRATORY FAILURE WITH HYPERCAPNIA (8) Diastolic heart failure Code(s): I50.30 - UNSPECIFIED DIASTOLIC (CONGESTIVE) HEART FAILURE Qualifiers: Heart failure chronicity: chronic Qualified Code(s): I50.32 - Chronic diastolic (congestive) heart failure (9) Anemia Code(s): D64.9 - ANEMIA, UNSPECIFIED Qualifiers: Anemia type: unspecified type Qualified Code(s): D64.9 - Anemia, unspecified (10) Multifocal atrial tachycardia Code(s): I47.1 - SUPRAVENTRICULAR TACHYCARDIA Assessment/Plan 1. 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 COPD with acute on chronic hypoxic/hypercapneic respiratory failure post tracheostomy 3. Diastolic LV dysfunction with class I NYHA classification LV congestive heart failure, compensated/euvolemic 4. Paroxysmal Atrial Fibrillation/multifocal atrial tachycardia on NOAC ( [id number] score of 4) 5. HTN 6. Hypothyroidism 7. History of C. Difficile Colitis 8. History of MARLYN, resolved 9. 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 Patient is on Metoprolol and Amiodarone which may be continued 2. Continue Eliquis as tolerated 3. Continue mechanical ventilation 4. Supportive care Bert Ivan MD
--- NOTE | 2017-09-19 13:44 | PN ---
Progress Note, Physician Chief Complaint: patient seen and examined sleeping in bed does open her eyes to her name spoke to sister not ready to sign paper w0rk - Current Medication List Current Medications: Active Medications Acetaminophen (Tylenol -) 650 mg PO Q6H PRN PRN Reason: FEVER OR PAIN Last Admin: 09/15/17 21:09 Dose: 650 mg Acetaminophen (Tylenol Oral Solution -) 650 mg PO Q4H PRN PRN Reason: FEVER OR PAIN Last Admin: 09/13/17 10:45 Dose: 650 mg Acetaminophen (Tylenol Suppository -) 650 mg [place] Q6H PRN PRN Reason: FEVER OR PAIN Last Admin: 09/17/17 22:19 Dose: 650 mg Amino Acids (Prosource No Carb Liquid Pkt) 30 ml PO BID@0800,1730 [facility] Last Admin: 09/19/17 10:13 Dose: Not Given Amiodarone HCl (Cordarone -) 200 mg PO DAILY [facility] Last Admin: 09/19/17 11:39 Dose: Not Given Apixaban (Eliquis -) 5 mg PO BID [facility] Last Admin: 09/19/17 11:39 Dose: Not Given IV Flush (Picc Line Flush) 8 ml IVPUSH PRN PRN PRN Reason: Protocol Lactobacillus Acidophilus (Bacid -) 1 tab PO DAILY [facility] Last Admin: 09/19/17 11:39 Dose: Not Given Levothyroxine Sodium (Synthroid -) 88 mcg PO DAILY@0700 [facility] Last Admin: 09/19/17 06:21 Dose: 88 mcg Magnesium Oxide (Mag-Ox -) 800 mg PO BID [facility] Last Admin: 09/19/17 11:39 Dose: Not Given Metoprolol Tartrate (Lopressor -) 25 mg PO BID [facility] Last Admin: 09/19/17 10:12 Dose: Not Given Morphine Sulfate (Morphine Sulfate) 2 mg IVPUSH Q6H PRN PRN Reason: PAIN Nystatin (Nystop Powder -) 1 applic TP DAILY [facility] Last Admin: 09/18/17 11:29 Dose: 1 applic Ondansetron HCl (Zofran Odt -) 4 mg SL Q6H PRN PRN Reason: NAUSEA Last Admin: 09/04/17 15:40 Dose: 4 mg Tamsulosin HCl (Flomax -) 0.4 mg PO DAILY@1730 [facility] Last Admin: 09/18/17 18:07 Dose: Not Given - Objective Vital Signs: Vital Signs Temperature 97.8 F 09/19/17 10:00 Pulse Rate 91 H 09/19/17 12:00 Respiratory Rate 15 09/19/17 12:00 Blood Pressure 87/42 09/19/17 12:00 O2 Sat by Pulse Oximetry (%) 98 09/19/17 10:06 Constitutional: Yes: Calm, Pallor, Thin Cardiovascular: Yes: Tachycardia, Pulse Irregular Respiratory: Yes: Diminished, Mechanically Ventilated Gastrointestinal: Yes: Normal Bowel Sounds, Soft Neurological: Yes: Other (sleeping but opens eye to her name) Labs: CBC, BMP 09/19/17 06:15 09/19/17 06:15 INR, PTT INR 1.47 (0.82-1.09) H 09/12/17 08:10 Fibrinogen 532.0 mg/dL (238-498) H 09/10/17 11:30 Problem List - Problems (1) Fever Assessment/Plan: spiked fever yesterday iv abx stopped diarrhea - po flagyl for c diff- completed course - resolved cultures so far negative Microbiology 08/25/17 10:27 Blood - Peripheral Venous Blood Culture - Preliminary NO GROWTH OBTAINED AFTER 24 HOURS, INCUBATION TO CONTINUE FOR 4 DAYS. 08/25/17 10:27 Blood - Peripheral Venous Blood Culture - Preliminary NO GROWTH OBTAINED AFTER 24 HOURS, INCUBATION TO CONTINUE FOR 4 DAYS. 08/23/17 08:30 Stool Clostridium difficile Antigen (TEDDY) - Final 08/23/17 08:30 Stool Clostridium difficile Toxin Assay - Final Code(s): R50.9 - FEVER, UNSPECIFIED Qualifiers: Fever type: unspecified Qualified Code(s): R50.9 - Fever, unspecified (2) A-fib Assessment/Plan: amiodarone and eliquis Code(s): I48.91 - UNSPECIFIED ATRIAL FIBRILLATION Qualifiers: Atrial fibrillation type: paroxysmal Qualified Code(s): I48.0 - Paroxysmal atrial fibrillation (3) Hypothyroid Assessment/Plan: synthroid po tsh noted - harvey check again tmw Code(s): E03.9 - HYPOTHYROIDISM, UNSPECIFIED Qualifiers: Hypothyroidism type: unspecified Qualified Code(s): E03.9 - Hypothyroidism , unspecified (4) Decrease in appetite Assessment/Plan: no feeding tube Code(s): R63.0 - ANOREXIA (5) Diarrhea Assessment/Plan: Microbiology 08/23/17 08:30 Stool Clostridium difficile Antigen (TEDDY) - Final 08/23/17 08:30 Stool Clostridium difficile Toxin Assay - Final 07/19/17 21:00 Sputum - Endotrachea Suction/Ventilator Gram Stain - Final 07/19/17 21:00 Sputum - Endotrachea Suction/Ventilator Sputum Culture - Final Beta Hem Streptococcus Group G Providencia Stuartii Diphtheroid/Corynebacterium on flagyl - course done/ improved Code(s): R19.7 - DIARRHEA, UNSPECIFIED Qualifiers: Diarrhea type: unspecified type Qualified Code(s): R19.7 - Diarrhea, unspecified (6) Acute on chronic respiratory failure with hypoxia and hypercapnia Assessment/Plan: A/C mode fio2 40% vent support bronchodilators chest ct noted for soft tissue mass-biopsy done non small cell Ca- squamous cell cancer not a candidate for treatment Code(s): J96.21 - ACUTE AND CHRONIC RESPIRATORY FAILURE WITH HYPOXIA; J96.22 - ACUTE AND CHRONIC RESPIRATORY FAILURE WITH HYPERCAPNIA (7) Diastolic heart failure Assessment/Plan: no signs of volum overload cardio on board Code(s): I50.30 - UNSPECIFIED DIASTOLIC (CONGESTIVE) HEART FAILURE Qualifiers: Heart failure chronicity: chronic Qualified Code(s): I50.32 - Chronic diastolic (congestive) heart failure (8) Anemia Assessment/Plan: stable h/h Code(s): D64.9 - ANEMIA, UNSPECIFIED Qualifiers: Anemia type: unspecified type Qualified Code(s): D64.9 - Anemia, unspecified (9) Hypokalemia due to loss of potassium Assessment/Plan: K is ok l Code(s): E87.6 - HYPOKALEMIA (10) Mediastinal mass Assessment/Plan: non small cell cancer_ squamous cell cancer not a candidate for treatment spoke to sister Valencia in detail again today she is not ready to sign DNR paper explained in detail about patient condition Code(s): J98.59 - OTHER DISEASES OF MEDIASTINUM, NOT ELSEWHERE CLASSIFIED
--- NOTE | 2017-09-19 14:30 | PN ---
Progress Note, Physician History of Present Illness: pulmonary drowsy,nad on vent support ac mode - Current Medication List Current Medications: Active Medications Acetaminophen (Tylenol -) 650 mg PO Q6H PRN PRN Reason: FEVER OR PAIN Last Admin: 09/15/17 21:09 Dose: 650 mg Acetaminophen (Tylenol Oral Solution -) 650 mg PO Q4H PRN PRN Reason: FEVER OR PAIN Last Admin: 09/13/17 10:45 Dose: 650 mg Acetaminophen (Tylenol Suppository -) 650 mg [place] Q6H PRN PRN Reason: FEVER OR PAIN Last Admin: 09/17/17 22:19 Dose: 650 mg Amino Acids (Prosource No Carb Liquid Pkt) 30 ml PO BID@0800,1730 [facility] BEDS AT [facility] Last Admin: 09/19/17 10:13 Dose: Not Given Amiodarone HCl (Cordarone -) 200 mg PO DAILY [facility]S AT [facility] Last Admin: 09/19/17 11:39 Dose: Not Given Apixaban (Eliquis -) 5 mg PO BID [facility] 234 B[facility]S AT [facility] Last Admin: 09/19/17 11:39 Dose: Not Given IV Flush (Picc Line Flush) 8 ml IVPUSH PRN PRN PRN Reason: Protocol Lactobacillus Acidophilus (Bacid -) 1 tab PO DAILY [facility] B[facility]S AT [facility] Last Admin: 09/19/17 11:39 Dose: Not Given Levothyroxine Sodium (Synthroid -) 88 mcg PO DAILY@0700 [facility] 234 BEDS AT [facility] Last Admin: 09/19/17 06:21 Dose: 88 mcg Magnesium Oxide (Mag-Ox -) 800 mg PO BID [facility] 234 BEDS AT [facility] Last Admin: 09/19/17 11:39 Dose: Not Given Metoprolol Tartrate (Lopressor -) 25 mg PO BID [facility] 234 B[facility]S AT [facility] Last Admin: 09/19/17 10:12 Dose: Not Given Morphine Sulfate (Morphine Sulfate) 2 mg IVPUSH Q6H PRN PRN Reason: PAIN Nystatin (Nystop Powder -) 1 applic TP DAILY [facility] 234 B[facility]S AT [facility] Last Admin: 09/18/17 11:29 Dose: 1 applic Ondansetron HCl (Zofran Odt -) 4 mg SL Q6H PRN PRN Reason: NAUSEA Last Admin: 09/04/17 15:40 Dose: 4 mg Tamsulosin HCl (Flomax -) 0.4 mg PO DAILY@1730 [facility] 234 BEDS AT [facility] Last Admin: 09/18/17 18:07 Dose: Not Given - Objective Vital Signs: Vital Signs Temperature 97.8 F 09/19/17 10:00 Pulse Rate 91 H 09/19/17 12:00 Respiratory Rate 15 09/19/17 12:00 Blood Pressure 87/42 09/19/17 12:00 O2 Sat by Pulse Oximetry (%) 98 09/19/17 10:06 Constitutional: Yes: Thin, Other (drowsy) Eyes: Yes: WNL HENT: Yes: WNL Neck: Yes: Supple (trach) Cardiovascular: Yes: Pulse Irregular, S1, S2 Respiratory: Yes: Diminished Gastrointestinal: Yes: Normal Bowel Sounds, Soft Extremities: Yes: WNL Edema: No Labs: CBC, BMP 09/19/17 06:15 09/19/17 06:15 INR, PTT INR 1.47 (0.82-1.09) H 09/12/17 08:10 Fibrinogen 532.0 mg/dL (238-498) H 09/10/17 11:30 Problem List - Problems (1) Fever Code(s): R50.9 - FEVER, UNSPECIFIED Qualifiers: Fever type: unspecified Qualified Code(s): R50.9 - Fever, unspecified (2) Tracheostomy dependence Code(s): 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 - TRACHEOSTOMY STATUS (3) Chest pain Code(s): R07.9 - CHEST PAIN, UNSPECIFIED Qualifiers: Chest pain type: pleurodynia Qualified Code(s): R07.81 - Pleurodynia (4) A-fib Code(s): I48.91 - UNSPECIFIED ATRIAL FIBRILLATION Qualifiers: Atrial fibrillation type: paroxysmal Qualified Code(s): I48.0 - Paroxysmal atrial fibrillation (5) COPD (chronic obstructive pulmonary disease) Code(s): J44.9 - CHRONIC OBSTRUCTIVE PULMONARY DISEASE, UNSPECIFIED Qualifiers: COPD type: unspecified COPD Qualified Code(s): J44.9 - Chronic obstructive pulmonary disease, unspecified (6) Acute on chronic respiratory failure with hypoxia and hypercapnia Code(s): J96.21 - ACUTE AND CHRONIC RESPIRATORY FAILURE WITH HYPOXIA; J96.22 - ACUTE AND CHRONIC RESPIRATORY FAILURE WITH HYPERCAPNIA (7) Diastolic heart failure Code(s): I50.30 - UNSPECIFIED DIASTOLIC (CONGESTIVE) HEART FAILURE Qualifiers: Heart failure chronicity: chronic Qualified Code(s): I50.32 - Chronic diastolic (congestive) heart failure (8) Anemia Code(s): D64.9 - ANEMIA, UNSPECIFIED Qualifiers: Anemia type: unspecified type Qualified Code(s): D64.9 - Anemia, unspecified (9) Sacral decubitus ulcer, stage II Code(s): L89.152 - PRESSURE ULCER OF SACRAL REGION, STAGE 2 (10) Hematuria Code(s): R31.9 - HEMATURIA, UNSPECIFIED Qualifiers: Hematuria type: unspecified type Qualified Code(s): R31.9 - Hematuria, unspecified Assessment/Plan IMP ACUTE ON CHRONIC HYPOXEMIC/HYPERCAPNEIC RESPIRATORY FAILURE INVASIVE ANT MEDIASTINAL MASS + 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 ?MUCOUS PLUG FEVER ANEMIA COPD AFIB HEMATURIA DIASTOLIC HF HYPERKALEMIA HYPOTENSION PLAN VENT SUPPORT ON AC MODE INHALED BRONCHODILATORS MONITOR H+H AC COMFORT CARE DR RAGLAND Problem List - Problems (1) Fever Code(s): R50.9 - FEVER, UNSPECIFIED Qualifiers: Fever type: unspecified Qualified Code(s): R50.9 - Fever, unspecified; R50.9 - Fever, unspecified (2) Hematuria Code(s): R31.9 - HEMATURIA, UNSPECIFIED Qualifiers: Hematuria type: unspecified type Qualified Code(s): R31.9 - Hematuria, unspecified; R31.9 - Hematuria, unspecified (3) Sacral decubitus ulcer, stage II Code(s): L89.152 - PRESSURE ULCER OF SACRAL REGION, STAGE 2 (4) A-fib Code(s): I48.91 - UNSPECIFIED ATRIAL FIBRILLATION Qualifiers: (5) Acute on chronic respiratory failure with hypoxia and hypercapnia Code(s): J96.21 - ACUTE AND CHRONIC RESPIRATORY FAILURE WITH HYPOXIA J96.22 - ACUTE AND CHRONIC RESPIRATORY FAILURE WITH HYPERCAPNIA (6) Anemia Code(s): D64.9 - ANEMIA, UNSPECIFIED Qualifiers: Anemia type: unspecified type Qualified Code(s): D64.9 - Anemia, unspecified; D64.9 - Anemia, unspecified (7) COPD (chronic obstructive pulmonary disease) Code(s): J44.9 - CHRONIC OBSTRUCTIVE PULMONARY DISEASE, UNSPECIFIED Qualifiers : COPD type: unspecified COPD Qualified Code(s): J44.9 - Chronic obstructive pulmonary disease, unspecified; J44.9 - Chronic obstructive pulmonary disease, unspecified; J44.9 - Chronic obstructive pulmonary disease, unspecified; J44.9 - Chronic obstructive pulmonary disease, unspecified (8) Chest pain Code(s): R07.9 - CHEST PAIN, UNSPECIFIED Qualifiers: Chest pain type: pleurodynia Qualified Code(s): R07.81 - Pleurodynia ; R07.81 - Pleurodynia (9) Diastolic heart failure Code(s): I50.30 - UNSPECIFIED DIASTOLIC (CONGESTIVE) HEART FAILURE Qualifiers : Heart failure chronicity: chronic Qualified Code(s): I50.32 - Chronic diastolic (congestive) heart failure; I50.32 - Chronic diastolic ( congestive) heart failure; I50.32 - Chronic diastolic (congestive) heart failure ; I50.32 - Chronic diastolic (congestive) heart failure (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
[2017-09-19] MEDS: TAMSULOSIN HCL 0.4 MG CAP.ER.24H (FP) PO SCH (16:54)
[2017-09-20] MEDS: LEVOTHYROXINE NA 88 MCG TABLET (FP) PO SCH (06:35)
[2017-09-20] MEDS: ACETAMINOPHEN 650 MG SUPP.RECT PR PRN ×2 (07:05→14:30)
[2017-09-20] MEDS: AMIODARONE HCL 200 MG TABLET (FP) PO SCH (11:32)
[2017-09-20] MEDS: LACTOBACILLUS ACIDOPHILUS 1 EACH TAB (FP) PO SCH (11:32)
[2017-09-20] MEDS: AMINO ACIDS/PROTEIN HYDROLYS 30 ML LIQUID.PKT PO SCH ×2 (11:32→17:39)
[2017-09-20] MEDS: APIXABAN 5 MG TABLET PO SCH ×2 (11:33→21:44)
[2017-09-20] MEDS: MAGNESIUM OXIDE 400 MG TABLET (FP) PO SCH ×2 (11:33→21:44)
[2017-09-20] MEDS: METOPROLOL TARTRATE 25 MG TABLET (FP) PO SCH ×2 (11:33→21:44)
[2017-09-20] MEDS: NYSTATIN POWDER 100,000 UNITS/GM - 15 GM TOPICAL POWDER TP SCH (11:34)
--- NOTE | 2017-09-20 12:04 | PN ---
Progress Note, Physician History of Present Illness: pulmonarrry no change on vent support ac mode,febrile - Current Medication List Current Medications: Active Medications Acetaminophen (Tylenol -) 650 mg PO Q6H PRN PRN Reason: FEVER OR PAIN Last Admin: 09/15/17 21:09 Dose: 650 mg Acetaminophen (Tylenol Oral Solution -) 650 mg PO Q4H PRN PRN Reason: FEVER OR PAIN Last Admin: 09/13/17 10:45 Dose: 650 mg Acetaminophen (Tylenol Suppository -) 650 mg [place] Q6H PRN PRN Reason: FEVER OR PAIN Last Admin: 09/20/17 07:05 Dose: 650 mg Amino Acids (Prosource No Carb Liquid Pkt) 30 ml PO BID@0800,1730 [facility] Last Admin: 09/20/17 11:32 Dose: Not Given Amiodarone HCl (Cordarone -) 200 mg PO DAILY [facility] Last Admin: 09/20/17 11:32 Dose: Not Given Apixaban (Eliquis -) 5 mg PO BID [facility] Last Admin: 09/20/17 11:33 Dose: Not Given IV Flush (Picc Line Flush) 8 ml IVPUSH PRN PRN PRN Reason: Protocol Lactobacillus Acidophilus (Bacid -) 1 tab PO DAILY [facility] Last Admin: 09/20/17 11:32 Dose: Not Given Levothyroxine Sodium (Synthroid -) 88 mcg PO DAILY@0700 [facility] Last Admin: 09/20/17 06:35 Dose: Not Given Magnesium Oxide (Mag-Ox -) 800 mg PO BID [facility] Last Admin: 09/20/17 11:33 Dose: Not Given Metoprolol Tartrate (Lopressor -) 25 mg PO BID [facility] Last Admin: 09/20/17 11:33 Dose: Not Given Morphine Sulfate (Morphine Sulfate) 2 mg IVPUSH Q6H PRN PRN Reason: PAIN Nystatin (Nystop Powder -) 1 applic TP DAILY [facility] Last Admin: 09/20/17 11:34 Dose: 1 applic Ondansetron HCl (Zofran Odt -) 4 mg SL Q6H PRN PRN Reason: NAUSEA Last Admin: 09/04/17 15:40 Dose: 4 mg Tamsulosin HCl (Flomax -) 0.4 mg PO DAILY@1730 [facility] Last Admin: 09/19/17 16:54 Dose: Not Given - Objective Vital Signs: Vital Signs Temperature 102.4 F H 09/20/17 06:00 Pulse Rate 115 H 09/20/17 06:00 Respiratory Rate 17 09/20/17 11:44 Blood Pressure 125/61 09/20/17 06:00 O2 Sat by Pulse Oximetry (%) 98 09/20/17 11:44 Constitutional: Yes: Calm, Thin Eyes: Yes: WNL HENT: Yes: WNL Neck: Yes: WNL Cardiovascular: Yes: Pulse Irregular, S1, S2 Respiratory: Yes: Diminished Gastrointestinal: Yes: Normal Bowel Sounds, Soft Extremities: Yes: WNL Edema: Yes Labs: CBC, BMP 09/19/17 06:15 INR, PTT INR 1.47 (0.82-1.09) H 09/12/17 08:10 Fibrinogen 532.0 mg/dL (238-498) H 09/10/17 11:30 Problem List - Problems (1) Fever Code(s): R50.9 - FEVER, UNSPECIFIED Qualifiers: Fever type: unspecified Qualified Code(s): R50.9 - Fever, unspecified (2) Tracheostomy dependence Code(s): Z93.0 - TRACHEOSTOMY STATUS (3) Chest pain Code(s): R07.9 - CHEST PAIN, UNSPECIFIED Qualifiers: Chest pain type: pleurodynia Qualified Code(s): R07.81 - Pleurodynia (4) A-fib Code(s): I48.91 - UNSPECIFIED ATRIAL FIBRILLATION Qualifiers: Atrial fibrillation type: paroxysmal Qualified Code(s): I48.0 - Paroxysmal atrial fibrillation (5) COPD (chronic obstructive pulmonary disease) Code(s): J44.9 - CHRONIC OBSTRUCTIVE PULMONARY DISEASE, UNSPECIFIED Qualifiers: COPD type: unspecified COPD Qualified Code(s): J44.9 - Chronic obstructive pulmonary disease, unspecified (6) Acute on chronic respiratory failure with hypoxia and hypercapnia Code(s): J96.21 - ACUTE AND CHRONIC RESPIRATORY FAILURE WITH HYPOXIA; J96.22 - ACUTE AND CHRONIC RESPIRATORY FAILURE WITH HYPERCAPNIA (7) Diastolic heart failure Code(s): I50.30 - UNSPECIFIED DIASTOLIC (CONGESTIVE) HEART FAILURE Qualifiers: Heart failure chronicity: chronic Qualified Code(s): I50.32 - Chronic diastolic (congestive) heart failure (8) Anemia Code(s): D64.9 - ANEMIA, UNSPECIFIED Qualifiers: Anemia type: unspecified type Qualified Code(s): D64.9 - Anemia, unspecified (9) Sacral decubitus ulcer, stage II Code(s): L89.152 - PRESSURE ULCER OF SACRAL REGION, STAGE 2 (10) Hematuria Code(s): R31.9 - HEMATURIA, UNSPECIFIED Qualifiers: Hematuria type: unspecified type Qualified Code(s): R31.9 - Hematuria, unspecified Assessment/Plan IMP ACUTE ON CHRONIC HYPOXEMIC/HYPERCAPNEIC RESPIRATORY FAILURE INVASIVE ANT MEDIASTINAL MASS + 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 ?MUCOUS PLUG FEVER ANEMIA COPD AFIB HEMATURIA DIASTOLIC HF HYPERKALEMIA HYPOTENSION PLAN VENT SUPPORT ON AC MODE INHALED BRONCHODILATORS MONITOR H+H AC COMFORT CARE PROGNOSIS POOR DR RAGLAND Problem List - Problems (1) Fever Code(s): R50.9 - FEVER, UNSPECIFIED Qualifiers: Fever type: unspecified Qualified Code(s): R50.9 - Fever, unspecified; R50.9 - Fever, unspecified (2) Hematuria Code(s): R31.9 - HEMATURIA, UNSPECIFIED Qualifiers: Hematuria type: unspecified type Qualified Code(s): R31.9 - Hematuria, unspecified; R31.9 - Hematuria, unspecified (3) Sacral decubitus ulcer, stage II Code(s): L89.152 - PRESSURE ULCER OF SACRAL REGION, STAGE 2 (4) A-fib Code(s): I48.91 - UNSPECIFIED ATRIAL FIBRILLATION Qualifiers: (5) Acute on chronic respiratory failure with hypoxia and hypercapnia Code(s): J96.21 - ACUTE AND CHRONIC RESPIRATORY FAILURE WITH HYPOXIA J96.22 - ACUTE AND CHRONIC RESPIRATORY FAILURE WITH HYPERCAPNIA (6) Anemia Code(s): D64.9 - ANEMIA, UNSPECIFIED Qualifiers: Anemia type: unspecified type Qualified Code(s): D64.9 - Anemia, unspecified; D64.9 - Anemia, unspecified (7) COPD (chronic obstructive pulmonary disease) Code(s): J44.9 - CHRONIC OBSTRUCTIVE PULMONARY DISEASE, UNSPECIFIED Qualifiers : COPD type: unspecified COPD Qualified Code(s): J44.9 - Chronic obstructive pulmonary disease, unspecified; J44.9 - Chronic obstructive pulmonary disease, unspecified; J44.9 - Chronic obstructive pulmonary disease, unspecified; J44.9 - Chronic obstructive pulmonary disease, unspecified (8) Chest pain Code(s): R07.9 - CHEST PAIN, UNSPECIFIED Qualifiers: Chest pain type: pleurodynia Qualified Code(s): R07.81 - Pleurodynia ; R07.81 - Pleurodynia (9) Diastolic heart failure Code(s): I50.30 - UNSPECIFIED DIASTOLIC (CONGESTIVE) HEART FAILURE Qualifiers : Heart failure chronicity: chronic Qualified Code(s): I50.32 - Chronic diastolic (congestive) heart failure; I50.32 - Chronic diastolic ( congestive) heart failure; I50.32 - Chronic diastolic (congestive) heart failure ; I50.32 - Chronic diastolic (congestive) heart failure (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
--- NOTE | 2017-09-20 13:37 | PN ---
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 Patient aware of her diagnosis Biopsy results shows NSCC-SCC -Sister apprehensive about making patient DNR. more awake today -Clergymen to see the patient and daughter - Current Medication List Current Medications: Active Medications Acetaminophen (Tylenol -) 650 mg PO Q6H PRN PRN Reason: FEVER OR PAIN Last Admin: 09/15/17 21:09 Dose: 650 mg Acetaminophen (Tylenol Oral Solution -) 650 mg PO Q4H PRN PRN Reason: FEVER OR PAIN Last Admin: 09/13/17 10:45 Dose: 650 mg Acetaminophen (Tylenol Suppository -) 650 mg [place] Q6H PRN PRN Reason: FEVER OR PAIN Last Admin: 09/20/17 07:05 Dose: 650 mg Amino Acids (Prosource No Carb Liquid Pkt) 30 ml PO BID@0800,1730 [facility] Last Admin: 09/20/17 11:32 Dose: Not Given Amiodarone HCl (Cordarone -) 200 mg PO DAILY [facility] Last Admin: 09/20/17 11:32 Dose: Not Given Apixaban (Eliquis -) 5 mg PO BID [facility] Last Admin: 09/20/17 11:33 Dose: Not Given IV Flush (Picc Line Flush) 8 ml IVPUSH PRN PRN PRN Reason: Protocol Lactobacillus Acidophilus (Bacid -) 1 tab PO DAILY [facility] Last Admin: 09/20/17 11:32 Dose: Not Given Levothyroxine Sodium (Synthroid -) 88 mcg PO DAILY@0700 [facility] Last Admin: 09/20/17 06:35 Dose: Not Given Magnesium Oxide (Mag-Ox -) 800 mg PO BID [facility] Last Admin: 09/20/17 11:33 Dose: Not Given Metoprolol Tartrate (Lopressor -) 25 mg PO BID [facility] Last Admin: 09/20/17 11:33 Dose: Not Given Morphine Sulfate (Morphine Sulfate) 2 mg IVPUSH Q6H PRN PRN Reason: PAIN Nystatin (Nystop Powder -) 1 applic TP DAILY [facility] Last Admin: 09/20/17 11:34 Dose: 1 applic Ondansetron HCl (Zofran Odt -) 4 mg SL Q6H PRN PRN Reason: NAUSEA Last Admin: 09/04/17 15:40 Dose: 4 mg Tamsulosin HCl (Flomax -) 0.4 mg PO DAILY@1730 [facility] Last Admin: 09/19/17 16:54 Dose: Not Given - Objective Vital Signs: Vital Signs Temperature 102.4 F H 09/20/17 06:00 Pulse Rate 115 H 09/20/17 06:00 Respiratory Rate 15 09/20/17 13:26 Blood Pressure 125/61 09/20/17 06:00 O2 Sat by Pulse Oximetry (%) 98 09/20/17 11:44 Constitutional: Yes: Well Nourished, No Distress, Calm Cardiovascular: Yes: Pulse Irregular Respiratory: Yes: Regular, Mechanically Ventilated Musculoskeletal: Yes: WNL Extremities: Yes: WNL Edema: Yes (generalized) Peripheral Pulses WNL: Yes Neurological: Yes: Alert, Lethargy Psychiatric: Yes: Alert Labs: CBC, BMP 09/19/17 06:15 INR, PTT INR 1.47 (0.82-1.09) H 09/12/17 08:10 Fibrinogen 532.0 mg/dL (238-498) H 09/10/17 11:30 Problem List - Problems (1) Fever Assessment/Plan: -febrile last night -tylenol for fever over 100.0F Code(s): R50.9 - FEVER, UNSPECIFIED Qualifiers: Fever type: unspecified Qualified Code(s): R50.9 - Fever, unspecified (2) A-fib Assessment/Plan: -Chronic -uncontrolled 2/2 to sepsis and fever -eliquis -uncontrolled at this time, ordered digoxin Code(s): I48.91 - UNSPECIFIED ATRIAL FIBRILLATION Qualifiers: Atrial fibrillation type: paroxysmal Qualified Code(s): I48.0 - Paroxysmal atrial fibrillation (3) Acute and chronic respiratory failure with hypoxia Assessment/Plan: -on mechanical vent -poor prognosis knowing the existence of possible malignant neoplasm Code(s): J96.21 - ACUTE AND CHRONIC RESPIRATORY FAILURE WITH HYPOXIA (4) Sepsis Assessment/Plan: -on admission -BP okay -seen by ID -overall poor prognosis Code(s): A41.9 - SEPSIS, UNSPECIFIED ORGANISM Qualifiers: Sepsis type: sepsis due to unspecified organism Qualified Code(s): A41.9 - Sepsis, unspecified organism (5) Systemic inflammatory response syndrome (SIRS) Assessment/Plan: -seen by TYRONE -Deyvi for fever over 100.0F Code(s): R65.10 - SIRS OF NON-INFECTIOUS ORIGIN W/O ACUTE ORGAN DYSFUNCTION (6) Sacral decubitus ulcer, stage II Assessment/Plan: -seen by Vascular -offloading to the area -[place] -wound culture shows MRSA and VRE Code(s): L89.152 - PRESSURE ULCER OF SACRAL REGION, STAGE 2 (7) Neoplasm of mediastinum Assessment/Plan: -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 D/C barker to avoid risk of CAUTI
[2017-09-20 13:46] LABS: ANION GAP 15 (8-16); CO2 17 mmol/L (21-32); CREATININE 0.8 mg/dL (0.55-1.02); GLUCOSE,RANDOM 79 mg/dL (74-106)
--- NOTE | 2017-09-20 16:54 | PN ---
Progress Note (short form) - Note Progress Note: Palliative Care I had another discussion with the patient's sister Valencia about the goals of care. The patient can open her eyes when I speak to her but has no verbal response today. There are no nonverbal signs of pain but I am certain it exists. Valencia is aware that her sister is close to but still feels its "God's" decision when her life is to end and not a DNR form. I did relay the fact that with her recent "resuscitation" we may be just prolonging the time to her . She says she will discuss this with her sister Nkechi who however is recovering from a heart attack. I also reminded her to think what Ginette would want if she were able to give her opinion regarding this choice. I will follow.
[2017-09-20] MEDS: TAMSULOSIN HCL 0.4 MG CAP.ER.24H (FP) PO SCH (17:39)
[2017-09-21] MEDS: LEVOTHYROXINE NA 88 MCG TABLET (FP) PO SCH (06:17)
[2017-09-21] MEDS: ACETAMINOPHEN 650 MG SUPP.RECT PR PRN ×3 (06:18→17:40)
[2017-09-21] MEDS: AMINO ACIDS/PROTEIN HYDROLYS 30 ML LIQUID.PKT PO SCH ×2 (09:01→17:31)
[2017-09-21] MEDS ORDERED: PT OWN MED DRAWER 7, Y5N ONE (10:48)
[2017-09-21] MEDS: AMIODARONE HCL 200 MG TABLET (FP) PO SCH (10:49)
[2017-09-21] MEDS: LACTOBACILLUS ACIDOPHILUS 1 EACH TAB (FP) PO SCH (10:49)
[2017-09-21] MEDS: NYSTATIN POWDER 100,000 UNITS/GM - 15 GM TOPICAL POWDER TP SCH (10:50)
[2017-09-21] MEDS: APIXABAN 5 MG TABLET PO SCH ×2 (10:50→22:30)
[2017-09-21] MEDS: MAGNESIUM OXIDE 400 MG TABLET (FP) PO SCH ×2 (10:50→22:31)
[2017-09-21] MEDS: METOPROLOL TARTRATE 25 MG TABLET (FP) PO SCH ×2 (10:50→22:31)
--- NOTE | 2017-09-21 11:00 | PN ---
Progress Note, Physician History of Present Illness: ON VENT - Current Medication List Current Medications: Active Medications Acetaminophen (Tylenol -) 650 mg PO Q6H PRN PRN Reason: FEVER OR PAIN Last Admin: 09/15/17 21:09 Dose: 650 mg Acetaminophen (Tylenol Oral Solution -) 650 mg PO Q4H PRN PRN Reason: FEVER OR PAIN Last Admin: 09/13/17 10:45 Dose: 650 mg Acetaminophen (Tylenol Suppository -) 650 mg [place] Q6H PRN PRN Reason: FEVER OR PAIN Last Admin: 09/21/17 06:18 Dose: 650 mg Amino Acids (Prosource No Carb Liquid Pkt) 30 ml PO BID@0800,1730 [facility] Last Admin: 09/21/17 09:01 Dose: Not Given Amiodarone HCl (Cordarone -) 200 mg PO DAILY [facility] Last Admin: 09/21/17 10:49 Dose: Not Given Apixaban (Eliquis -) 5 mg PO BID [facility] Last Admin: 09/21/17 10:50 Dose: Not Given IV Flush (Picc Line Flush) 8 ml IVPUSH PRN PRN PRN Reason: Protocol Lactobacillus Acidophilus (Bacid -) 1 tab PO DAILY [facility] Last Admin: 09/21/17 10:49 Dose: Not Given Levothyroxine Sodium (Synthroid -) 88 mcg PO DAILY@0700 [facility] Last Admin: 09/21/17 06:17 Dose: Not Given Magnesium Oxide (Mag-Ox -) 800 mg PO BID [facility] Last Admin: 09/21/17 10:50 Dose: Not Given Metoprolol Tartrate (Lopressor -) 25 mg PO BID [facility] Last Admin: 09/21/17 10:50 Dose: Not Given Nystatin (Nystop Powder -) 1 applic TP DAILY [facility] Last Admin: 09/21/17 10:50 Dose: 1 applic Ondansetron HCl (Zofran Odt -) 4 mg SL Q6H PRN PRN Reason: NAUSEA Last Admin: 09/04/17 15:40 Dose: 4 mg Tamsulosin HCl (Flomax -) 0.4 mg PO DAILY@1730 [facility] Last Admin: 09/20/17 17:39 Dose: Not Given - Objective Vital Signs: Vital Signs Temperature 101.3 F H 09/21/17 10:43 Pulse Rate 112 H 09/21/17 10:25 Respiratory Rate 14 09/21/17 10:25 Blood Pressure 111/53 09/21/17 10:25 O2 Sat by Pulse Oximetry (%) 98 09/20/17 22:00 Cardiovascular: Yes: Murmur, S1, S2 Respiratory: Yes: Mechanically Ventilated Gastrointestinal: Yes: Normal Bowel Sounds, Soft Labs: CBC, BMP 09/19/17 06:15 09/20/17 10:05 INR, PTT INR 1.47 (0.82-1.09) H 09/12/17 08:10 Fibrinogen 532.0 mg/dL (238-498) H 09/10/17 11:30 Assessment/Plan Problems (1) Fever Assessment/Plan: -febrile last night -tylenol for fever over 100.0F Code(s): R50.9 - FEVER, UNSPECIFIED Qualifiers: Fever type: unspecified Qualified Code(s): R50.9 - Fever, unspecified (2) A-fib Assessment/Plan: -Chronic -uncontrolled 2/2 to sepsis and fever -eliquis -uncontrolled at this time, ordered digoxin Code(s): I48.91 - UNSPECIFIED ATRIAL FIBRILLATION Qualifiers: Atrial fibrillation type: paroxysmal Qualified Code(s): I48.0 - Paroxysmal atrial fibrillation (3) Acute and chronic respiratory failure with hypoxia Assessment/Plan: -on mechanical vent -poor prognosis knowing the existence of possible malignant neoplasm Code(s): J96.21 - ACUTE AND CHRONIC RESPIRATORY FAILURE WITH HYPOXIA (4) Sepsis Assessment/Plan: -on admission -BP okay -seen by ID -overall poor prognosis Code(s): A41.9 - SEPSIS, UNSPECIFIED ORGANISM Qualifiers: Sepsis type: sepsis due to unspecified organism Qualified Code(s): A41.9 - Sepsis, unspecified organism (5) Systemic inflammatory response syndrome (SIRS) Assessment/Plan: -seen by ID -Tylenol for fever over 100.0F Code(s): R65.10 - SIRS OF NON-INFECTIOUS ORIGIN W/O ACUTE ORGAN DYSFUNCTION (6) Sacral decubitus ulcer, stage II Assessment/Plan: -seen by Vascular -offloading to the area -santyl -wound culture shows MRSA and VRE Code(s): L89.152 - PRESSURE ULCER OF SACRAL REGION, STAGE 2 (7) Neoplasm of mediastinum Assessment/Plan: -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
--- NOTE | 2017-09-21 13:13 | PN ---
Progress Note (short form) - Note Progress Note: PULMONARY POORLY RESPONSIVE PALE/ANICTERIC DIMINISHED WITH POOR INSPIRATORY SOUNDS/LEFT ANTERIOR WHEEZE S1S2 IRREGULAR BS+ LEFT HAND EDEMA 2/2 IV INFILTRATION/RADIAL PULSE IS STRONG LABS/MEDS/NOTES/IMAGES/VENT SETTING/ABG REVIEWED IMP ACUTE ON CHRONIC HYPOXEMIC/HYPERCAPNEIC RESPIRATORY FAILURE INVASIVE MEDIASTINAL MASS/SQUAMOUS CELL CA ANEMIA COPD AFIB HEMATURIA DIASTOLIC HF PLAN CONTINUE CURRENT VENT SETTINGS NEED TO DETERMINE GOALS OF CARE INHALED BRONCHODILATORS NORMAL TRANSFUSION THRESHOLDS ANTIBIOTICS PER ID OVERALL PROGNOSIS IS CORINNE BETANCOURT MD
--- NOTE | 2017-09-21 17:13 | PN ---
Progress Note (short form) - Note Progress Note: Renal follow up for Hyponatremia Pt seen and examined at the bedside lethargic but arouseable to verbal stimuli not eating or drinking per RN not much urine output on Vent Vital Signs Temperature 100.5 F H 09/21/17 15:02 Pulse Rate 102 H 09/21/17 15:02 Respiratory Rate 14 09/21/17 15:02 Blood Pressure 116/50 09/21/17 15:02 O2 Sat by Pulse Oximetry (%) 98 09/20/17 22:00 Intake & Output 09/18/17 09/19/17 09/20/17 09/21/17 23:59 23:59 23:59 23:59 Intake Total 350 50 0 Output Total 300 250 400 Balance 50 -200 -400 NAD, awake and alert on Vent via trach RRR Course BS soft NT/ND Abd + edema UE and LE CBC, BMP 09/19/17 06:15 09/20/17 10:05 Current Medications Acetaminophen (Tylenol -) 650 mg PO Q6H PRN PRN Reason: FEVER OR PAIN Last Admin: 09/15/17 21:09 Dose: 650 mg Acetaminophen (Tylenol Oral Solution -) 650 mg PO Q4H PRN PRN Reason: FEVER OR PAIN Last Admin: 09/13/17 10:45 Dose: 650 mg Acetaminophen (Tylenol Suppository -) 650 mg AR Q4H PRN PRN Reason: FEVER OR PAIN Amino Acids (Prosource No Carb Liquid Pkt) 30 ml PO BID@0800,1730 [facility] Last Admin: 09/21/17 09:01 Dose: Not Given Amiodarone HCl (Cordarone -) 200 mg PO DAILY [facility] Last Admin: 09/21/17 10:49 Dose: Not Given Apixaban (Eliquis -) 5 mg PO BID [facility] Last Admin: 09/21/17 10:50 Dose: Not Given IV Flush (Picc Line Flush) 8 ml IVPUSH PRN PRN PRN Reason: Protocol Potassium Chloride/Dextrose/Sod Cl (D5-1/2ns+20 Meq Kcl -) 20 meq in 1,000 mls @ 75 mls/hr IV ASDIR [facility]ORIE Lactobacillus Acidophilus (Bacid -) 1 tab PO DAILY [facility] Last Admin: 09/21/17 10:49 Dose: Not Given Levothyroxine Sodium (Synthroid -) 88 mcg PO DAILY@0700 [facility] Last Admin: 09/21/17 06:17 Dose: Not Given Magnesium Oxide (Mag-Ox -) 800 mg PO BID [facility] Last Admin: 09/21/17 10:50 Dose: Not Given Metoprolol Tartrate (Lopressor -) 25 mg PO BID [facility] Last Admin: 09/21/17 10:50 Dose: Not Given Nystatin (Nystop Powder -) 1 applic TP DAILY [facility] Last Admin: 09/21/17 10:50 Dose: 1 applic Ondansetron HCl (Zofran Odt -) 4 mg SL Q6H PRN PRN Reason: NAUSEA Last Admin: 09/04/17 15:40 Dose: 4 mg Tamsulosin HCl (Flomax -) 0.4 mg PO DAILY@1730 [facility] Last Admin: 09/20/17 17:39 Dose: Not Given A/p 67 year old woman with PMhx of Chronic Respiratory failure on vent, COPD, Anemia , Afib, Hypothyrodism who presented from the [place] with fever and anemia and with hyponatremia and hypokalemia. #Acute Kidney Injury in setting of Cardiac Arrest/Hemodynamic injury to kidney no new labs today but based on BMP from yesterday renal function stable but azotemia developing pt also with hypernatremia indicative of dehydration/volume depletion oral intake as tolerated pt w/o IV access poor prognosis palliative/hospice eval given co-morbid conditions Fernando Douglas DO Problem List - Problems (1) Respiratory failure Code(s): J96.90 - RESPIRATORY FAILURE, UNSP, UNSP W HYPOXIA OR HYPERCAPNIA Qualifiers: Chronicity: acute on chronic Respiratory failure complication: hypercapnia Qualified Code(s): J96.22 - Acute and chronic respiratory failure with hypercapnia (2) COPD (chronic obstructive pulmonary disease) Code(s): J44.9 - CHRONIC OBSTRUCTIVE PULMONARY DISEASE, UNSPECIFIED Qualifiers: COPD type: unspecified COPD Qualified Code(s): J44.9 - Chronic obstructive pulmonary disease, unspecified (3) Hyponatremia Code(s): E87.1 - HYPO-OSMOLALITY AND HYPONATREMIA (4) Hypokalemia Code(s): E87.6 - HYPOKALEMIA
[2017-09-21] MEDS: D5-1/2NS+20 MEQ KCL - 20 MEQ/1,000 ML INFUS.BAG IV SCH ×2 (17:28→20:54)
[2017-09-21] MEDS: TAMSULOSIN HCL 0.4 MG CAP.ER.24H (FP) PO SCH (17:41)
[2017-09-21] MEDS: SODIUM BICARBONATE 650 MG TABLET PO SCH (17:41)
[2017-09-22] MEDS: LEVOTHYROXINE NA 88 MCG TABLET (FP) PO SCH (06:42)
[2017-09-22] MEDS ORDERED: PT OWN MED DRAWER 7, Y5N ONE ×2 (09:06→20:50)
[2017-09-22] MEDS: ACETAMINOPHEN 650 MG SUPP.RECT PR PRN ×2 (10:27→22:51)
[2017-09-22] MEDS: APIXABAN 5 MG TABLET PO SCH ×2 (10:39→21:52)
[2017-09-22] MEDS: METOPROLOL TARTRATE 25 MG TABLET (FP) PO SCH ×2 (10:39→21:52)
[2017-09-22] MEDS: MAGNESIUM OXIDE 400 MG TABLET (FP) PO SCH ×2 (10:39→21:52)
[2017-09-22] MEDS: SODIUM BICARBONATE 650 MG TABLET PO SCH (10:39)
[2017-09-22] MEDS: AMIODARONE HCL 200 MG TABLET (FP) PO SCH (10:39)
[2017-09-22] MEDS: LACTOBACILLUS ACIDOPHILUS 1 EACH TAB (FP) PO SCH (10:39)
[2017-09-22] MEDS: NYSTATIN POWDER 100,000 UNITS/GM - 15 GM TOPICAL POWDER TP SCH (10:40)
[2017-09-22] MEDS: AMINO ACIDS/PROTEIN HYDROLYS 30 ML LIQUID.PKT PO SCH ×2 (10:40→18:05)
--- NOTE | 2017-09-22 10:52 | PN ---
Progress Note, Physician Chief Complaint: lethargic but opens her eyes when call out her name Jonathon yarbrough got tylenol aide feeding her apple sauce patient is eating without couhing - Current Medication List Current Medications: Active Medications Acetaminophen (Tylenol -) 650 mg PO Q6H PRN PRN Reason: FEVER OR PAIN Last Admin: 09/15/17 21:09 Dose: 650 mg Acetaminophen (Tylenol Oral Solution -) 650 mg PO Q4H PRN PRN Reason: FEVER OR PAIN Last Admin: 09/13/17 10:45 Dose: 650 mg Acetaminophen (Tylenol Suppository -) 650 mg [place] Q4H PRN PRN Reason: FEVER OR PAIN Last Admin: 09/22/17 10:27 Dose: 650 mg Amino Acids (Prosource No Carb Liquid Pkt) 30 ml PO BID@0800,1730 [facility] Last Admin: 09/22/17 10:40 Dose: Not Given Amiodarone HCl (Cordarone -) 200 mg PO DAILY [facility] Last Admin: 09/22/17 10:39 Dose: 200 mg Apixaban (Eliquis -) 5 mg PO BID [facility] Last Admin: 09/22/17 10:39 Dose: 5 mg IV Flush (Picc Line Flush) 8 ml IVPUSH PRN PRN PRN Reason: Protocol Potassium Chloride/Dextrose/Sod Cl (D5-1/2ns+20 Meq Kcl -) 20 meq in 1,000 mls @ 75 mls/hr IV ASDIR [facility] Last Admin: 09/21/17 20:54 Dose: 75 mls/hr Lactobacillus Acidophilus (Bacid -) 1 tab PO DAILY [facility] Last Admin: 09/22/17 10:39 Dose: 1 tab Levothyroxine Sodium (Synthroid -) 100 mcg PO DAILY@0700 [facility] Magnesium Oxide (Mag-Ox -) 800 mg PO BID [facility] Last Admin: 09/22/17 10:39 Dose: 800 mg Metoprolol Tartrate (Lopressor -) 25 mg PO BID [facility] Last Admin: 09/22/17 10:39 Dose: 25 mg Nystatin (Nystop Powder -) 1 applic TP DAILY [facility] Last Admin: 09/22/17 10:40 Dose: 1 applic Ondansetron HCl (Zofran Odt -) 4 mg SL Q6H PRN PRN Reason: NAUSEA Last Admin: 09/04/17 15:40 Dose: 4 mg Sodium Bicarbonate (Sodium Bicarbonate -) 650 mg PO DAILY [facility] Last Admin: 09/22/17 10:39 Dose: 650 mg Tamsulosin HCl (Flomax -) 0.4 mg PO DAILY@1730 [facility] Last Admin: 09/21/17 17:41 Dose: 0.4 mg - Objective Vital Signs: Vital Signs Temperature 99.4 F 09/22/17 06:35 Pulse Rate 195 H 09/22/17 06:35 Respiratory Rate 13 09/22/17 10:00 Blood Pressure 96/58 09/22/17 06:35 O2 Sat by Pulse Oximetry (%) 100 09/21/17 22:00 Constitutional: Yes: Calm, Pallor, Thin Cardiovascular: Yes: Pulse Irregular, S1, S2 Respiratory: Yes: Diminished Gastrointestinal: Yes: Normal Bowel Sounds, Soft Edema: Yes Labs: CBC, BMP 09/19/17 06:15 INR, PTT INR 1.47 (0.82-1.09) H 09/12/17 08:10 Fibrinogen 532.0 mg/dL (238-498) H 09/10/17 11:30 Problem List - Problems (1) Mediastinal mass Assessment/Plan: 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 08/25/17 10:27 Blood - Peripheral Venous Blood Culture - Preliminary NO GROWTH OBTAINED AFTER 24 HOURS, INCUBATION TO CONTINUE FOR 4 DAYS. 08/23/17 08:30 Stool Clostridium difficile Antigen (TEDDY) - Final 08/23/17 08:30 Stool Clostridium difficile Toxin Assay - Final Code(s): R50.9 - FEVER, UNSPECIFIED Qualifiers: Fever type: unspecified Qualified Code(s): R50.9 - Fever, unspecified (3) A-fib Assessment/Plan: amiodarone, metoprolol and eliquis Code(s): I48.91 - UNSPECIFIED ATRIAL FIBRILLATION Qualifiers: Atrial fibrillation type: paroxysmal Qualified Code(s): I48.0 - Paroxysmal atrial fibrillation (4) Hypothyroid Assessment/Plan: synthroid po dose inc to 100mcg tsh noted - elevated Code(s): E03.9 - HYPOTHYROIDISM, UNSPECIFIED Qualifiers: Hypothyroidism type: unspecified Qualified Code(s): E03.9 - Hypothyroidism , unspecified (5) Decrease in appetite Assessment/Plan: no feeding tube today patient eating apple sauce which the Aide fed her Code(s): R63.0 - ANOREXIA (6) Diarrhea Assessment/Plan: Microbiology 08/23/17 08:30 Stool Clostridium difficile Antigen (TEDDY) - Final 08/23/17 08:30 Stool Clostridium difficile Toxin Assay - Final 07/19/17 21:00 Sputum - Endotrachea Suction/Ventilator Gram Stain - Final 07/19/17 21:00 Sputum - Endotrachea Suction/Ventilator Sputum Culture - Final Beta Hem Streptococcus Group G Providencia Stuartii Diphtheroid/Corynebacterium on flagyl - course done/ improved Code(s): R19.7 - DIARRHEA, UNSPECIFIED Qualifiers: Diarrhea type: unspecified type Qualified Code(s): R19.7 - Diarrhea, unspecified (7) Acute on chronic respiratory failure with hypoxia and hypercapnia Assessment/Plan: A/C mode fio2 40% vent support bronchodilators chest ct noted for soft tissue mass-biopsy done non small cell Ca- squamous cell cancer not a candidate for treatment Code(s): J96.21 - ACUTE AND CHRONIC RESPIRATORY FAILURE WITH HYPOXIA; J96.22 - ACUTE AND CHRONIC RESPIRATORY FAILURE WITH HYPERCAPNIA (8) Diastolic heart failure Assessment/Plan: third spacing edema of extremites iv fluids held Code(s): I50.30 - UNSPECIFIED DIASTOLIC (CONGESTIVE) HEART FAILURE Qualifiers: Heart failure chronicity: chronic Qualified Code(s): I50.32 - Chronic diastolic (congestive) heart failure (9) Anemia Assessment/Plan: stable h/h Code(s): D64.9 - ANEMIA, UNSPECIFIED Qualifiers: Anemia type: unspecified type Qualified Code(s): D64.9 - Anemia, unspecified (10) Hypokalemia due to loss of potassium Assessment/Plan: K is ok l Code(s): E87.6 - HYPOKALEMIA
[2017-09-22 11:15] LABS: ANION GAP 18 (8-16); CALCIUM 7.7 mg/dL (8.5-10.1); CO2 17 mmol/L (21-32); CREATININE 0.8 mg/dL (0.55-1.02); GLUCOSE,RANDOM 99 mg/dL (74-106); MAGNESIUM 1.9 mg/dL (1.8-2.4)
--- NOTE | 2017-09-22 12:11 | PN ---
Progress Note (short form) - Note Progress Note: PULMONARY Vented on volume assist control with 40% FiO2. Intermittent fevers persist. Last Vital Signs Temp Pulse Resp BP Pulse Ox 101.7 F H 69 13 110/50 99 09/22/17 10:00 09/22/17 11:48 09/22/17 11:49 09/22/17 10:00 09/22/17 11:57 Gen: vented, lethargic Heart: tachycardic, regular Lung: distant breath sounds Abd: soft, nontender Ext: no edema CBC, BMP 09/19/17 06:15 09/22/17 10:15 Active Medications Acetaminophen (Tylenol -) 650 mg PO Q6H PRN PRN Reason: FEVER OR PAIN Last Admin: 09/15/17 21:09 Dose: 650 mg Acetaminophen (Tylenol Oral Solution -) 650 mg PO Q4H PRN PRN Reason: FEVER OR PAIN Last Admin: 09/13/17 10:45 Dose: 650 mg Acetaminophen (Tylenol Suppository -) 650 mg [place] Q4H PRN PRN Reason: FEVER OR PAIN Last Admin: 09/22/17 10:27 Dose: 650 mg Amino Acids (Prosource No Carb Liquid Pkt) 30 ml PO BID@0800,1730 [facility] Last Admin: 09/22/17 10:40 Dose: Not Given Amiodarone HCl (Cordarone -) 200 mg PO DAILY [facility] Last Admin: 09/22/17 10:39 Dose: 200 mg Apixaban (Eliquis -) 5 mg PO BID [facility] Last Admin: 09/22/17 10:39 Dose: 5 mg IV Flush (Picc Line Flush) 8 ml IVPUSH PRN PRN PRN Reason: Protocol Potassium Chloride/Dextrose/Sod Cl (D5-1/2ns+20 Meq Kcl -) 20 meq in 1,000 mls @ 75 mls/hr IV ASDIR [facility] Last Admin: 09/21/17 20:54 Dose: 75 mls/hr Lactobacillus Acidophilus (Bacid -) 1 tab PO DAILY [facility] Last Admin: 09/22/17 10:39 Dose: 1 tab Levothyroxine Sodium (Synthroid -) 100 mcg PO DAILY@0700 [facility] Magnesium Oxide (Mag-Ox -) 800 mg PO BID [facility] Last Admin: 09/22/17 10:39 Dose: 800 mg Metoprolol Tartrate (Lopressor -) 25 mg PO BID [facility] Last Admin: 09/22/17 10:39 Dose: 25 mg Nystatin (Nystop Powder -) 1 applic TP DAILY [facility] Last Admin: 09/22/17 10:40 Dose: 1 applic Ondansetron HCl (Zofran Odt -) 4 mg SL Q6H PRN PRN Reason: NAUSEA Last Admin: 09/04/17 15:40 Dose: 4 mg Sodium Bicarbonate (Sodium Bicarbonate -) 650 mg PO DAILY [facility] Last Admin: 09/22/17 10:39 Dose: 650 mg Tamsulosin HCl (Flomax -) 0.4 mg PO DAILY@1730 [facility] Last Admin: 09/21/17 17:41 Dose: 0.4 mg A/P Acute on Chronic Hypoxic and Hypercapneic Respiratory Failure 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
--- NOTE | 2017-09-22 15:01 | PN ---
Progress Note, Physician Chief Complaint: Patient was seen on 5S. Arousable but lethargic Remains on mechanical ventilation via trache History of Present Illness: Patient was seen and examined. Lethargic on vent - Current Medication List Current Medications: Active Medications Acetaminophen (Tylenol -) 650 mg PO Q6H PRN PRN Reason: FEVER OR PAIN Last Admin: 09/15/17 21:09 Dose: 650 mg Acetaminophen (Tylenol Oral Solution -) 650 mg PO Q4H PRN PRN Reason: FEVER OR PAIN Last Admin: 09/13/17 10:45 Dose: 650 mg Acetaminophen (Tylenol Suppository -) 650 mg [place] Q4H PRN PRN Reason: FEVER OR PAIN Last Admin: 09/22/17 10:27 Dose: 650 mg Amino Acids (Prosource No Carb Liquid Pkt) 30 ml PO BID@0800,1730 [facility] Last Admin: 09/22/17 10:40 Dose: Not Given Amiodarone HCl (Cordarone -) 200 mg PO DAILY [facility] Last Admin: 09/22/17 10:39 Dose: 200 mg Apixaban (Eliquis -) 5 mg PO BID [facility] Last Admin: 09/22/17 10:39 Dose: 5 mg IV Flush (Picc Line Flush) 8 ml IVPUSH PRN PRN PRN Reason: Protocol Potassium Chloride/Dextrose/Sod Cl (D5-1/2ns+20 Meq Kcl -) 20 meq in 1,000 mls @ 75 mls/hr IV ASDIR [facility] Last Admin: 09/21/17 20:54 Dose: 75 mls/hr Lactobacillus Acidophilus (Bacid -) 1 tab PO DAILY [facility] Last Admin: 09/22/17 10:39 Dose: 1 tab Levothyroxine Sodium (Synthroid -) 100 mcg PO DAILY@0700 [facility] Magnesium Oxide (Mag-Ox -) 800 mg PO BID [facility] Last Admin: 09/22/17 10:39 Dose: 800 mg Metoprolol Tartrate (Lopressor -) 25 mg PO BID [facility] Last Admin: 09/22/17 10:39 Dose: 25 mg Nystatin (Nystop Powder -) 1 applic TP DAILY [facility] Last Admin: 09/22/17 10:40 Dose: 1 applic Ondansetron HCl (Zofran Odt -) 4 mg SL Q6H PRN PRN Reason: NAUSEA Last Admin: 09/04/17 15:40 Dose: 4 mg Sodium Bicarbonate (Sodium Bicarbonate -) 650 mg PO DAILY [facility] Last Admin: 09/22/17 10:39 Dose: 650 mg Tamsulosin HCl (Flomax -) 0.4 mg PO DAILY@1730 [facility] Last Admin: 09/21/17 17:41 Dose: 0.4 mg - Objective Vital Signs: Vital Signs Temperature 99.4 F 09/22/17 14:36 Pulse Rate 69 09/22/17 11:48 Respiratory Rate 12 09/22/17 14:00 Blood Pressure 110/50 09/22/17 09:58 O2 Sat by Pulse Oximetry (%) 99 09/22/17 11:57 Cardiovascular: Yes: Regular Rate and Rhythm, S1, S2 Respiratory: Yes: Mechanically Ventilated Gastrointestinal: Yes: Normal Bowel Sounds. No: Tenderness Edema: No Labs: 09/22/17 10:15 INR, PTT INR 1.47 (0.82-1.09) H 09/12/17 08:10 Fibrinogen 532.0 mg/dL (238-498) H 09/10/17 11:30 Problem List - Problems (1) Pneumonia Code(s): J18.9 - PNEUMONIA, UNSPECIFIED ORGANISM Qualifiers: Pneumonia type: due to unspecified organism Laterality: left Lung location: lower lobe of lung Qualified Code(s): J18.1 - Lobar pneumonia, unspecified organism (2) Tracheostomy dependence Code(s): Z93.0 - TRACHEOSTOMY STATUS (3) A-fib Code(s): I48.91 - UNSPECIFIED ATRIAL FIBRILLATION Qualifiers: Atrial fibrillation type: paroxysmal Qualified Code(s): I48.0 - Paroxysmal atrial fibrillation (4) Acute and chronic respiratory failure with hypoxia Code(s): J96.21 - ACUTE AND CHRONIC RESPIRATORY FAILURE WITH HYPOXIA (5) Hypothyroid Code(s): E03.9 - HYPOTHYROIDISM, UNSPECIFIED Qualifiers: Hypothyroidism type: unspecified Qualified Code(s): E03.9 - Hypothyroidism , unspecified (6) COPD (chronic obstructive pulmonary disease) Code(s): J44.9 - CHRONIC OBSTRUCTIVE PULMONARY DISEASE, UNSPECIFIED Qualifiers: COPD type: unspecified COPD Qualified Code(s): J44.9 - Chronic obstructive pulmonary disease, unspecified (7) Acute on chronic respiratory failure with hypoxia and hypercapnia Code(s): J96.21 - ACUTE AND CHRONIC RESPIRATORY FAILURE WITH HYPOXIA; J96.22 - ACUTE AND CHRONIC RESPIRATORY FAILURE WITH HYPERCAPNIA (8) Diastolic heart failure Code(s): I50.30 - UNSPECIFIED DIASTOLIC (CONGESTIVE) HEART FAILURE Qualifiers: Heart failure chronicity: chronic Qualified Code(s): I50.32 - Chronic diastolic (congestive) heart failure (9) Anemia Code(s): D64.9 - ANEMIA, UNSPECIFIED Qualifiers: Anemia type: unspecified type Qualified Code(s): D64.9 - Anemia, unspecified (10) Multifocal atrial tachycardia Code(s): I47.1 - SUPRAVENTRICULAR TACHYCARDIA Assessment/Plan 1. 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 COPD with acute on chronic hypoxic/hypercapneic respiratory failure post tracheostomy 3. Diastolic LV dysfunction with class I NYHA classification LV congestive heart failure, compensated/euvolemic 4. Paroxysmal Atrial Fibrillation/multifocal atrial tachycardia on NOAC ( [id number] score of 4) 5. HTN 6. Hypothyroidism 7. History of C. Difficile Colitis 8. History of MARLYN, resolved 9. 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 Patient is on Metoprolol and Amiodarone which may be continued 2. Continue Eliquis as tolerated 3. Continue mechanical ventilation 4. Supportive care Bert Ivan MD
--- NOTE | 2017-09-22 15:42 | PN ---
Progress Note (short form) - Note Progress Note: Renal follow up for Hyponatremia Pt seen and examined at the bedside more awake and alert today febrile no acute complaints on IVF Vital Signs Temperature 99.4 F 09/22/17 14:36 Pulse Rate 69 09/22/17 11:48 Respiratory Rate 12 09/22/17 14:00 Blood Pressure 110/50 09/22/17 09:58 O2 Sat by Pulse Oximetry (%) 99 09/22/17 11:57 Intake & Output 09/19/17 09/20/17 09/21/17 09/22/17 23:59 23:59 23:59 23:59 Intake Total 50 0 550 Output Total 250 400 0 Balance -200 -400 0 550 NAD, awake and alert on Vent via trach RRR Course BS soft NT/ND Abd + edema UE and LE CBC, BMP 09/19/17 06:15 09/22/17 10:15 Current Medications Acetaminophen (Tylenol -) 650 mg PO Q6H PRN PRN Reason: FEVER OR PAIN Last Admin: 09/15/17 21:09 Dose: 650 mg Acetaminophen (Tylenol Oral Solution -) 650 mg PO Q4H PRN PRN Reason: FEVER OR PAIN Last Admin: 09/13/17 10:45 Dose: 650 mg Acetaminophen (Tylenol Suppository -) 650 mg [place] Q4H PRN PRN Reason: FEVER OR PAIN Last Admin: 09/22/17 10:27 Dose: 650 mg Amino Acids (Prosource No Carb Liquid Pkt) 30 ml PO BID@0800,1730 [facility] Last Admin: 09/22/17 10:40 Dose: Not Given Amiodarone HCl (Cordarone -) 200 mg PO DAILY [facility] Last Admin: 09/22/17 10:39 Dose: 200 mg Apixaban (Eliquis -) 5 mg PO BID [facility] Last Admin: 09/22/17 10:39 Dose: 5 mg IV Flush (Picc Line Flush) 8 ml IVPUSH PRN PRN PRN Reason: Protocol Potassium Chloride/Dextrose/Sod Cl (D5-1/2ns+20 Meq Kcl -) 20 meq in 1,000 mls @ 75 mls/hr IV ASDIR [facility] Last Admin: 09/21/17 20:54 Dose: 75 mls/hr Lactobacillus Acidophilus (Bacid -) 1 tab PO DAILY [facility] Last Admin: 09/22/17 10:39 Dose: 1 tab Levothyroxine Sodium (Synthroid -) 100 mcg PO DAILY@0700 [facility] Magnesium Oxide (Mag-Ox -) 800 mg PO BID [facility] Last Admin: 09/22/17 10:39 Dose: 800 mg Metoprolol Tartrate (Lopressor -) 25 mg PO BID [facility] Last Admin: 09/22/17 10:39 Dose: 25 mg Nystatin (Nystop Powder -) 1 applic TP DAILY [facility] Last Admin: 09/22/17 10:40 Dose: 1 applic Ondansetron HCl (Zofran Odt -) 4 mg SL Q6H PRN PRN Reason: NAUSEA Last Admin: 09/04/17 15:40 Dose: 4 mg Sodium Bicarbonate (Sodium Bicarbonate -) 650 mg PO DAILY [facility] Last Admin: 09/22/17 10:39 Dose: 650 mg Tamsulosin HCl (Flomax -) 0.4 mg PO DAILY@1730 [facility] Last Admin: 09/21/17 17:41 Dose: 0.4 mg A/p 67 year old woman with PMhx of Chronic Respiratory failure on vent, COPD, Anemia , Afib, Hypothyrodism [place] with fever and anemia and with hyponatremia and hypokalemia. #Acute Kidney Injury in setting of Cardiac Arrest/Hemodynamic injury to kidney/ Hypernatremia renal function stable on BMP pt continues to have poor urine production likely due to poor oral intake and 3rd spacing due to hypoalbuminemia continue gentle IVF hydration as being done trend BUN/Cr Prognosis is poor Fernando Douglas DO Problem List - Problems (1) Respiratory failure Code(s): J96.90 - RESPIRATORY FAILURE, UNSP, UNSP W HYPOXIA OR HYPERCAPNIA Qualifiers: Chronicity: acute on chronic Respiratory failure complication: hypercapnia Qualified Code(s): J96.22 - Acute and chronic respiratory failure with hypercapnia (2) COPD (chronic obstructive pulmonary disease) Code(s): J44.9 - CHRONIC OBSTRUCTIVE PULMONARY DISEASE, UNSPECIFIED Qualifiers: COPD type: unspecified COPD Qualified Code(s): J44.9 - Chronic obstructive pulmonary disease, unspecified (3) Hyponatremia Code(s): E87.1 - HYPO-OSMOLALITY AND HYPONATREMIA (4) Hypokalemia Code(s): E87.6 - HYPOKALEMIA
[2017-09-22] MEDS: TAMSULOSIN HCL 0.4 MG CAP.ER.24H (FP) PO SCH (18:05)
[2017-09-22] MEDS: D5-1/2NS+20 MEQ KCL - 20 MEQ/1,000 ML INFUS.BAG IV SCH (18:05)
[2017-09-22] MEDS ORDERED: METOPROLOL TARTRATE 25 MG TABLET (FP) PO ONE (23:30)
[2017-09-23] MEDS: LEVOTHYROXINE NA 100 MCG TABLET (FP) PO SCH (06:56)
[2017-09-23] MEDS: AMINO ACIDS/PROTEIN HYDROLYS 30 ML LIQUID.PKT PO SCH ×2 (08:00→16:51)
[2017-09-23] MEDS: METOPROLOL TARTRATE 25 MG TABLET (FP) PO SCH ×2 (11:19→22:12)
[2017-09-23] MEDS: APIXABAN 5 MG TABLET PO SCH ×2 (11:19→22:06)
[2017-09-23] MEDS: LACTOBACILLUS ACIDOPHILUS 1 EACH TAB (FP) PO SCH (11:19)
[2017-09-23] MEDS: AMIODARONE HCL 200 MG TABLET (FP) PO SCH (11:19)
[2017-09-23] MEDS: MAGNESIUM OXIDE 400 MG TABLET (FP) PO SCH ×2 (11:20→22:06)
[2017-09-23] MEDS: SODIUM BICARBONATE 650 MG TABLET PO SCH (11:20)
[2017-09-23] MEDS: NYSTATIN POWDER 100,000 UNITS/GM - 15 GM TOPICAL POWDER TP SCH (11:21)
--- NOTE | 2017-09-23 14:19 | PN ---
Progress Note, Physician Chief Complaint: patient seen lethargic on vent opens her eyes to her name linnea 101.4 last nite - Current Medication List Current Medications: Active Medications Acetaminophen (Tylenol -) 650 mg PO Q6H PRN PRN Reason: FEVER OR PAIN Last Admin: 09/15/17 21:09 Dose: 650 mg Acetaminophen (Tylenol Oral Solution -) 650 mg PO Q4H PRN PRN Reason: FEVER OR PAIN Last Admin: 09/13/17 10:45 Dose: 650 mg Acetaminophen (Tylenol Suppository -) 650 mg [place] Q4H PRN PRN Reason: FEVER OR PAIN Last Admin: 09/22/17 22:51 Dose: 650 mg Amino Acids (Prosource No Carb Liquid Pkt) 30 ml PO BID@0800,1730 [facility] Last Admin: 09/23/17 08:00 Dose: Not Given Amiodarone HCl (Cordarone -) 200 mg PO DAILY [facility] Last Admin: 09/23/17 11:19 Dose: Not Given Apixaban (Eliquis -) 5 mg PO BID [facility] Last Admin: 09/23/17 11:19 Dose: Not Given IV Flush (Picc Line Flush) 8 ml IVPUSH PRN PRN PRN Reason: Protocol Potassium Chloride/Dextrose/Sod Cl (D5-1/2ns+20 Meq Kcl -) 20 meq in 1,000 mls @ 75 mls/hr IV ASDIR [facility] Last Admin: 09/22/17 18:05 Dose: Not Given Lactobacillus Acidophilus (Bacid -) 1 tab PO DAILY [facility] Last Admin: 09/23/17 11:19 Dose: Not Given Levothyroxine Sodium (Synthroid -) 100 mcg PO DAILY@0700 [facility] Last Admin: 09/23/17 06:56 Dose: 100 mcg Magnesium Oxide (Mag-Ox -) 800 mg PO BID [facility] Last Admin: 09/23/17 11:20 Dose: Not Given Metoprolol Tartrate (Lopressor -) 25 mg PO BID [facility] Last Admin: 09/23/17 11:19 Dose: Not Given Nystatin (Nystop Powder -) 1 applic TP DAILY [facility] Last Admin: 09/23/17 11:21 Dose: 1 applic Ondansetron HCl (Zofran Odt -) 4 mg SL Q6H PRN PRN Reason: NAUSEA Last Admin: 09/04/17 15:40 Dose: 4 mg Sodium Bicarbonate (Sodium Bicarbonate -) 650 mg PO DAILY [facility] Last Admin: 09/23/17 11:20 Dose: Not Given Tamsulosin HCl (Flomax -) 0.4 mg PO DAILY@1730 [facility] Last Admin: 09/22/17 18:05 Dose: 0.4 mg - Objective Vital Signs: Vital Signs Temperature 98.1 F 09/23/17 06:09 Pulse Rate 72 09/23/17 10:00 Respiratory Rate 12 09/23/17 10:00 Blood Pressure 85/49 09/23/17 10:00 O2 Sat by Pulse Oximetry (%) 99 09/22/17 22:00 Constitutional: Yes: Calm, Pallor, Thin Cardiovascular: Yes: Pulse Irregular, S1, S2 Respiratory: Yes: Diminished, Mechanically Ventilated Gastrointestinal: Yes: Soft Edema: Yes Labs: CBC, BMP 09/19/17 06:15 09/22/17 10:15 INR, PTT INR 1.47 (0.82-1.09) H 09/12/17 08:10 Fibrinogen 532.0 mg/dL (238-498) H 09/10/17 11:30 Problem List - Problems (1) Mediastinal mass Assessment/Plan: 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 08/25/17 10:27 Blood - Peripheral Venous Blood Culture - Preliminary NO GROWTH OBTAINED AFTER 24 HOURS, INCUBATION TO CONTINUE FOR 4 DAYS. 08/23/17 08:30 Stool Clostridium difficile Antigen (TEDDY) - Final 08/23/17 08:30 Stool Clostridium difficile Toxin Assay - Final Code(s): R50.9 - FEVER, UNSPECIFIED Qualifiers: Fever type: unspecified Qualified Code(s): R50.9 - Fever, unspecified (3) A-fib Assessment/Plan: amiodarone, metoprolol and eliquis Code(s): I48.91 - UNSPECIFIED ATRIAL FIBRILLATION Qualifiers: Atrial fibrillation type: paroxysmal Qualified Code(s): I48.0 - Paroxysmal atrial fibrillation (4) Hypothyroid Assessment/Plan: synthroid po dose inc to 100mcg tsh noted - elevated Code(s): E03.9 - HYPOTHYROIDISM, UNSPECIFIED Qualifiers: Hypothyroidism type: unspecified Qualified Code(s): E03.9 - Hypothyroidism , unspecified (5) Decrease in appetite Assessment/Plan: no feeding tube today patient eating apple sauce which the Aide fed her Code(s): R63.0 - ANOREXIA (6) Acute on chronic respiratory failure with hypoxia and hypercapnia Assessment/Plan: A/C mode fio2 40% vent support bronchodilators chest ct noted for soft tissue mass-biopsy done non small cell Ca- squamous cell cancer not a candidate for treatment Code(s): J96.21 - ACUTE AND CHRONIC RESPIRATORY FAILURE WITH HYPOXIA; J96.22 - ACUTE AND CHRONIC RESPIRATORY FAILURE WITH HYPERCAPNIA (7) Diastolic heart failure Assessment/Plan: third spacing edema of extremites iv fluids held Code(s): I50.30 - UNSPECIFIED DIASTOLIC (CONGESTIVE) HEART FAILURE Qualifiers: Heart failure chronicity: chronic Qualified Code(s): I50.32 - Chronic diastolic (congestive) heart failure (8) Anemia Assessment/Plan: stable h/h Code(s): D64.9 - ANEMIA, UNSPECIFIED Qualifiers: Anemia type: unspecified type Qualified Code(s): D64.9 - Anemia, unspecified (9) Hypokalemia due to loss of potassium Code(s): E87.6 - HYPOKALEMIA Assessment/Plan sister beatriz deciding about DNR repeat lópez
--- NOTE | 2017-09-23 15:01 | PN ---
Progress Note, Physician History of Present Illness: Febrile overnight, interactive on vent - Current Medication List Current Medications: Active Medications Acetaminophen (Tylenol -) 650 mg PO Q6H PRN PRN Reason: FEVER OR PAIN Last Admin: 09/15/17 21:09 Dose: 650 mg Acetaminophen (Tylenol Oral Solution -) 650 mg PO Q4H PRN PRN Reason: FEVER OR PAIN Last Admin: 09/13/17 10:45 Dose: 650 mg Acetaminophen (Tylenol Suppository -) 650 mg NM Q4H PRN PRN Reason: FEVER OR PAIN Last Admin: 09/22/17 22:51 Dose: 650 mg Amino Acids (Prosource No Carb Liquid Pkt) 30 ml PO BID@0800,1730 [facility] Last Admin: 09/23/17 08:00 Dose: Not Given Amiodarone HCl (Cordarone -) 200 mg PO DAILY [facility] Last Admin: 09/23/17 11:19 Dose: Not Given Apixaban (Eliquis -) 5 mg PO BID [facility] Last Admin: 09/23/17 11:19 Dose: Not Given IV Flush (Picc Line Flush) 8 ml IVPUSH PRN PRN PRN Reason: Protocol Potassium Chloride/Dextrose/Sod Cl (D5-1/2ns+20 Meq Kcl -) 20 meq in 1,000 mls @ 75 mls/hr IV ASDIR [facility] Last Admin: 09/22/17 18:05 Dose: Not Given Lactobacillus Acidophilus (Bacid -) 1 tab PO DAILY [facility] Last Admin: 09/23/17 11:19 Dose: Not Given Levothyroxine Sodium (Synthroid -) 100 mcg PO DAILY@0700 [facility] Last Admin: 09/23/17 06:56 Dose: 100 mcg Magnesium Oxide (Mag-Ox -) 800 mg PO BID [facility] Last Admin: 09/23/17 11:20 Dose: Not Given Metoprolol Tartrate (Lopressor -) 25 mg PO BID [facility] Last Admin: 09/23/17 11:19 Dose: Not Given Nystatin (Nystop Powder -) 1 applic TP DAILY [facility] Last Admin: 09/23/17 11:21 Dose: 1 applic Ondansetron HCl (Zofran Odt -) 4 mg SL Q6H PRN PRN Reason: NAUSEA Last Admin: 09/04/17 15:40 Dose: 4 mg Sodium Bicarbonate (Sodium Bicarbonate -) 650 mg PO DAILY [facility] Last Admin: 09/23/17 11:20 Dose: Not Given Tamsulosin HCl (Flomax -) 0.4 mg PO DAILY@1730 [facility] Last Admin: 09/22/17 18:05 Dose: 0.4 mg - Objective Vital Signs: Vital Signs Temperature 98.1 F 09/23/17 06:09 Pulse Rate 65 09/23/17 14:21 Respiratory Rate 12 09/23/17 14:20 Blood Pressure 85/49 09/23/17 10:00 O2 Sat by Pulse Oximetry (%) 98 09/23/17 14:21 Constitutional: Yes: No Distress, Calm, Thin Neck: Yes: Supple Cardiovascular: Yes: Regular Rate and Rhythm Respiratory: Yes: Mechanically Ventilated, Rhonchi Gastrointestinal: Yes: Normal Bowel Sounds, Soft Edema: Yes Labs: CBC, BMP 09/19/17 06:15 09/22/17 10:15 INR, PTT INR 1.47 (0.82-1.09) H 09/12/17 08:10 Fibrinogen 532.0 mg/dL (238-498) H 09/10/17 11:30 Problem List - Problems (1) Fever Code(s): R50.9 - FEVER, UNSPECIFIED Qualifiers: Fever type: unspecified Qualified Code(s): R50.9 - Fever, unspecified (2) Tracheostomy dependence Code(s): Z93.0 - TRACHEOSTOMY STATUS (3) A-fib Code(s): I48.91 - UNSPECIFIED ATRIAL FIBRILLATION Qualifiers: Atrial fibrillation type: paroxysmal Qualified Code(s): I48.0 - Paroxysmal atrial fibrillation (4) Hypothyroid Code(s): E03.9 - HYPOTHYROIDISM, UNSPECIFIED Qualifiers: Hypothyroidism type: unspecified Qualified Code(s): E03.9 - Hypothyroidism , unspecified (5) COPD (chronic obstructive pulmonary disease) Code(s): J44.9 - CHRONIC OBSTRUCTIVE PULMONARY DISEASE, UNSPECIFIED Qualifiers: COPD type: unspecified COPD Qualified Code(s): J44.9 - Chronic obstructive pulmonary disease, unspecified (6) Acute on chronic respiratory failure with hypoxia and hypercapnia Code(s): J96.21 - ACUTE AND CHRONIC RESPIRATORY FAILURE WITH HYPOXIA; J96.22 - ACUTE AND CHRONIC RESPIRATORY FAILURE WITH HYPERCAPNIA (7) Diastolic heart failure Code(s): I50.30 - UNSPECIFIED DIASTOLIC (CONGESTIVE) HEART FAILURE Qualifiers: Heart failure chronicity: chronic Qualified Code(s): I50.32 - Chronic diastolic (congestive) heart failure (8) Anticoagulant long-term use Code(s): Z79.01 - SKILLED NURSING (CURRENT) USE OF ANTICOAGULANTS (9) Mediastinal mass Code(s): J98.59 - OTHER DISEASES OF MEDIASTINUM, NOT ELSEWHERE CLASSIFIED (10) Multifocal atrial tachycardia Code(s): I47.1 - SUPRAVENTRICULAR TACHYCARDIA (11) Non-small cell lung cancer Code(s): C34.90 - MALIGNANT NEOPLASM OF UNSP PART OF UNSP BRONCHUS OR LUNG Qualifiers: Laterality: unspecified laterality Qualified Code(s): C34.90 - Malignant neoplasm of unspecified part of unspecified bronchus or lung Assessment/Plan 1. 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 COPD with acute on chronic hypoxic/hypercapneic respiratory failure post tracheostomy 3. Diastolic LV dysfunction with class I NYHA classification LV congestive heart failure, compensated/euvolemic 4. Paroxysmal Atrial Fibrillation/multifocal atrial tachycardia on NOAC ( [id number] score of 4) 5. HTN 6. Hypothyroidism 7. History of C. Difficile Colitis 8. History of MARLYN, resolved 9. 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 Continue Metoprolol 2 bid and Amiodarone 200 qd 2. Continue Eliquis 5 bid 3. Continue mechanical ventilation 4. Supportive care
--- NOTE | 2017-09-23 15:28 | PN ---
Progress Note (short form) - Note Progress Note: PULMONARY RESPONSIVE PALE/ANICTERIC DIMINISHED WITH POOR INSPIRATORY SOUNDS/LEFT ANTERIOR WHEEZE S1S2 IRREGULAR BS+ LEFT HAND EDEMA 2/2 IV INFILTRATION/RADIAL PULSE IS STRONG LABS/MEDS/NOTES/IMAGES/VENT SETTING/ABG REVIEWED IMP ACUTE ON CHRONIC HYPOXEMIC/HYPERCAPNEIC RESPIRATORY FAILURE INVASIVE MEDIASTINAL MASS/SQUAMOUS CELL CA ANEMIA COPD AFIB HEMATURIA DIASTOLIC HF PLAN CONTINUE CURRENT VENT SETTINGS NEED TO DETERMINE GOALS OF CARE INHALED BRONCHODILATORS NORMAL TRANSFUSION THRESHOLDS ANTIBIOTICS PER ID OVERALL PROGNOSIS IS CORINNE BETANCOURT MD
--- NOTE | 2017-09-23 16:04 | PN ---
Progress Note (short form) - Note Progress Note: Renal follow up for Hyponatremia Pt seen and examined at the bedside awake and alert reports having alot of secretions off IVF nurse reports better oral intake Vital Signs Temperature 97.4 F L 09/23/17 14:28 Pulse Rate 82 09/23/17 14:28 Respiratory Rate 12 09/23/17 14:28 Blood Pressure 95/41 09/23/17 14:28 O2 Sat by Pulse Oximetry (%) 98 09/23/17 14:21 Intake & Output 09/20/17 09/21/17 09/22/17 09/23/17 23:59 23:59 23:59 23:59 Intake Total 0 630 50 Output Total 400 0 Balance -400 0 630 50 NAD awake and alert on vent via ET tube 1+ edema upper and lower extremity CBC, BMP 09/19/17 06:15 09/22/17 10:15 Current Medications Acetaminophen (Tylenol -) 650 mg PO Q6H PRN PRN Reason: FEVER OR PAIN Last Admin: 09/15/17 21:09 Dose: 650 mg Acetaminophen (Tylenol Oral Solution -) 650 mg PO Q4H PRN PRN Reason: FEVER OR PAIN Last Admin: 09/13/17 10:45 Dose: 650 mg Acetaminophen (Tylenol Suppository -) 650 mg [place] Q4H PRN PRN Reason: FEVER OR PAIN Last Admin: 09/22/17 22:51 Dose: 650 mg Amino Acids (Prosource No Carb Liquid Pkt) 30 ml PO BID@0800,1730 [facility] Last Admin: 09/23/17 08:00 Dose: Not Given Amiodarone HCl (Cordarone -) 200 mg PO DAILY [facility] Last Admin: 09/23/17 11:19 Dose: Not Given Apixaban (Eliquis -) 5 mg PO BID [facility] Last Admin: 09/23/17 11:19 Dose: Not Given IV Flush (Picc Line Flush) 8 ml IVPUSH PRN PRN PRN Reason: Protocol Potassium Chloride/Dextrose/Sod Cl (D5-1/2ns+20 Meq Kcl -) 20 meq in 1,000 mls @ 75 mls/hr IV ASDIR [facility] Last Admin: 09/22/17 18:05 Dose: Not Given Lactobacillus Acidophilus (Bacid -) 1 tab PO DAILY [facility] Last Admin: 09/23/17 11:19 Dose: Not Given Levothyroxine Sodium (Synthroid -) 100 mcg PO DAILY@0700 [facility] Last Admin: 09/23/17 06:56 Dose: 100 mcg Magnesium Oxide (Mag-Ox -) 800 mg PO BID [facility] Last Admin: 09/23/17 11:20 Dose: Not Given Metoprolol Tartrate (Lopressor -) 25 mg PO BID [facility] Last Admin: 09/23/17 11:19 Dose: Not Given Nystatin (Nystop Powder -) 1 applic TP DAILY [facility] Last Admin: 09/23/17 11:21 Dose: 1 applic Ondansetron HCl (Zofran Odt -) 4 mg SL Q6H PRN PRN Reason: NAUSEA Last Admin: 09/04/17 15:40 Dose: 4 mg Sodium Bicarbonate (Sodium Bicarbonate -) 650 mg PO DAILY [facility] Last Admin: 09/23/17 11:20 Dose: Not Given Tamsulosin HCl (Flomax -) 0.4 mg PO DAILY@1730 [facility] Last Admin: 09/22/17 18:05 Dose: 0.4 mg A/p 67 year old woman with PMhx of Chronic Respiratory failure on vent, COPD, Anemia , Afib, Hypothyrodism who [place] with fever and anemia and with hyponatremia and hypokalemia. #Acute Kidney Injury in setting of Cardiac Arrest/Hemodynamic injury to kidney/ Hypernatremia no new labs today foely removed so unclear what urine output is clinically stable based on PE off IVF but taking in more oral diet labs ordered for tomorrow morning Fernando Douglas DO Problem List - Problems (1) Respiratory failure Code(s): J96.90 - RESPIRATORY FAILURE, UNSP, UNSP W HYPOXIA OR HYPERCAPNIA Qualifiers: Chronicity: acute on chronic Respiratory failure complication: hypercapnia Qualified Code(s): J96.22 - Acute and chronic respiratory failure with hypercapnia (2) COPD (chronic obstructive pulmonary disease) Code(s): J44.9 - CHRONIC OBSTRUCTIVE PULMONARY DISEASE, UNSPECIFIED Qualifiers: COPD type: unspecified COPD Qualified Code(s): J44.9 - Chronic obstructive pulmonary disease, unspecified (3) Hyponatremia Code(s): E87.1 - HYPO-OSMOLALITY AND HYPONATREMIA (4) Hypokalemia Code(s): E87.6 - HYPOKALEMIA
[2017-09-23] MEDS: TAMSULOSIN HCL 0.4 MG CAP.ER.24H (FP) PO SCH (16:51)
[2017-09-23] MEDS ORDERED: PT OWN MED DRAWER 7, Y5N ONE (21:59)
[2017-09-24] MEDS: ACETAMINOPHEN 650 MG/20.3 ML ORAL SOLUTION (CUPS) PO PRN (06:56)
[2017-09-24] MEDS: LEVOTHYROXINE NA 100 MCG TABLET (FP) PO SCH (06:56)
[2017-09-24 07:42] LABS: ANION GAP 11 (8-16); CO2 20 mmol/L (21-32); CREATININE 0.6 mg/dL (0.55-1.02); GLUCOSE,RANDOM 68 mg/dL (74-106)
[2017-09-24] MEDS ORDERED: PT OWN MED DRAWER 7, Y5N ONE (09:38)
[2017-09-24] MEDS: AMINO ACIDS/PROTEIN HYDROLYS 30 ML LIQUID.PKT PO SCH ×2 (09:40→18:02)
[2017-09-24] MEDS: MAGNESIUM OXIDE 400 MG TABLET (FP) PO SCH ×2 (09:40→22:47)
[2017-09-24] MEDS: AMIODARONE HCL 200 MG TABLET (FP) PO SCH (09:40)
[2017-09-24] MEDS: METOPROLOL TARTRATE 25 MG TABLET (FP) PO SCH ×2 (09:40→22:16)
[2017-09-24] MEDS: SODIUM BICARBONATE 650 MG TABLET PO SCH (09:41)
[2017-09-24] MEDS: LACTOBACILLUS ACIDOPHILUS 1 EACH TAB (FP) PO SCH (09:41)
--- NOTE | 2017-09-24 11:20 | PN ---
Progress Note (short form) - Note Progress Note: Renal follow up for Hyponatremia Pt seen and examined at the bedside awake and alert febrile today on IVF BP stable Vital Signs Temperature 100.1 F H 09/24/17 09:35 Pulse Rate 102 H 09/24/17 09:35 Respiratory Rate 14 09/24/17 10:13 Blood Pressure 116/51 09/24/17 09:35 O2 Sat by Pulse Oximetry (%) 99 09/23/17 22:00 Intake & Output 09/21/17 09/22/17 09/23/17 09/24/17 23:59 23:59 23:59 23:59 Intake Total 630 60 Output Total 0 Balance 0 630 60 NAD awake and alert on vent via ET tube 1+ edema upper and lower extremity CBC, BMP 09/19/17 06:15 09/24/17 06:00 Current Medications Acetaminophen (Tylenol -) 650 mg PO Q6H PRN PRN Reason: FEVER OR PAIN Last Admin: 09/15/17 21:09 Dose: 650 mg Acetaminophen (Tylenol Oral Solution -) 650 mg PO Q4H PRN PRN Reason: FEVER OR PAIN Last Admin: 09/24/17 06:56 Dose: 650 mg Acetaminophen (Tylenol Suppository -) 650 mg NM Q4H PRN PRN Reason: FEVER OR PAIN Last Admin: 09/22/17 22:51 Dose: 650 mg Amino Acids (Prosource No Carb Liquid Pkt) 30 ml PO BID@0800,1730 [facility] Last Admin: 09/24/17 09:40 Dose: Not Given Amiodarone HCl (Cordarone -) 200 mg PO DAILY [facility] Last Admin: 09/24/17 09:40 Dose: 200 mg Apixaban (Eliquis -) 5 mg PO BID [facility] Last Admin: 09/23/17 22:06 Dose: 5 mg IV Flush (Picc Line Flush) 8 ml IVPUSH PRN PRN PRN Reason: Protocol Potassium Chloride 20 meq/ (Dextrose/Sodium Chloride) 510 mls @ 75 mls/hr IVPB Q7H [facility] Lactobacillus Acidophilus (Bacid -) 1 tab PO DAILY [facility] Last Admin: 09/24/17 09:41 Dose: 1 tab Levothyroxine Sodium (Synthroid -) 100 mcg PO DAILY@0700 [facility] Last Admin: 09/24/17 06:56 Dose: 100 mcg Magnesium Oxide (Mag-Ox -) 800 mg PO BID [facility] Last Admin: 09/24/17 09:40 Dose: 800 mg Metoprolol Tartrate (Lopressor -) 25 mg PO BID [facility] Last Admin: 09/24/17 09:40 Dose: 25 mg Nystatin (Nystop Powder -) 1 applic TP DAILY [facility] Last Admin: 09/23/17 11:21 Dose: 1 applic Ondansetron HCl (Zofran Odt -) 4 mg SL Q6H PRN PRN Reason: NAUSEA Last Admin: 09/04/17 15:40 Dose: 4 mg Sodium Bicarbonate (Sodium Bicarbonate -) 650 mg PO DAILY [facility] Last Admin: 09/24/17 09:41 Dose: 650 mg Tamsulosin HCl (Flomax -) 0.4 mg PO DAILY@1730 [facility] Last Admin: 09/23/17 16:51 Dose: Not Given A/p 67 year old woman with PMhx of Chronic Respiratory failure on vent, COPD, Anemia , Afib, Hypothyrodism who presented [place] the [place] with fever and anemia and with hyponatremia and hypokalemia. #Acute Kidney Injury in setting of Cardiac Arrest/Hemodynamic injury to kidney/ Hypernatremia Renal function stable no acidosis, hyperkalemia #Hypernatremia start D5 1/3 NS with KCl Trend Na daily oral water intake as tolerated Anti-pyretics as needed Fernando Douglas DO Problem List - Problems (1) Respiratory failure Code(s): J96.90 - RESPIRATORY FAILURE, UNSP, UNSP W HYPOXIA OR HYPERCAPNIA Qualifiers: Qualified Code(s): J96.22 - Acute and chronic respiratory failure with hypercapnia (2) COPD (chronic obstructive pulmonary disease) Code(s): J44.9 - CHRONIC OBSTRUCTIVE PULMONARY DISEASE, UNSPECIFIED Qualifiers: Qualified Code(s): J44.9 - Chronic obstructive pulmonary disease, unspecified (3) Hyponatremia Code(s): E87.1 - HYPO-OSMOLALITY AND HYPONATREMIA (4) Hypokalemia Code(s): E87.6 - HYPOKALEMIA
--- NOTE | 2017-09-24 11:22 | PN ---
Progress Note, Physician Chief Complaint: AWAKE VENT SUPPORT - Current Medication List Current Medications: Active Medications Acetaminophen (Tylenol -) 650 mg PO Q6H PRN PRN Reason: FEVER OR PAIN Last Admin: 09/15/17 21:09 Dose: 650 mg Acetaminophen (Tylenol Oral Solution -) 650 mg PO Q4H PRN PRN Reason: FEVER OR PAIN Last Admin: 09/24/17 06:56 Dose: 650 mg Acetaminophen (Tylenol Suppository -) 650 mg [place] Q4H PRN PRN Reason: FEVER OR PAIN Last Admin: 09/22/17 22:51 Dose: 650 mg Amino Acids (Prosource No Carb Liquid Pkt) 30 ml PO BID@0800,1730 [facility] Last Admin: 09/24/17 09:40 Dose: Not Given Amiodarone HCl (Cordarone -) 200 mg PO DAILY [facility] Last Admin: 09/24/17 09:40 Dose: 200 mg Apixaban (Eliquis -) 5 mg PO BID [facility] Last Admin: 09/23/17 22:06 Dose: 5 mg IV Flush (Picc Line Flush) 8 ml IVPUSH PRN PRN PRN Reason: Protocol Potassium Chloride 20 meq/ (Dextrose/Sodium Chloride) 510 mls @ 75 mls/hr IVPB Q7H [facility] Lactobacillus Acidophilus (Bacid -) 1 tab PO DAILY [facility] Last Admin: 09/24/17 09:41 Dose: 1 tab Levothyroxine Sodium (Synthroid -) 100 mcg PO DAILY@0700 [facility] Last Admin: 09/24/17 06:56 Dose: 100 mcg Magnesium Oxide (Mag-Ox -) 800 mg PO BID [facility] Last Admin: 09/24/17 09:40 Dose: 800 mg Metoprolol Tartrate (Lopressor -) 25 mg PO BID [facility] Last Admin: 09/24/17 09:40 Dose: 25 mg Nystatin (Nystop Powder -) 1 applic TP DAILY [facility] Last Admin: 09/23/17 11:21 Dose: 1 applic Ondansetron HCl (Zofran Odt -) 4 mg SL Q6H PRN PRN Reason: NAUSEA Last Admin: 09/04/17 15:40 Dose: 4 mg Sodium Bicarbonate (Sodium Bicarbonate -) 650 mg PO DAILY [facility] Last Admin: 09/24/17 09:41 Dose: 650 mg Tamsulosin HCl (Flomax -) 0.4 mg PO DAILY@1730 [facility] Last Admin: 09/23/17 16:51 Dose: Not Given - Objective Vital Signs: Vital Signs Temperature 100.1 F H 09/24/17 09:35 Pulse Rate 102 H 09/24/17 09:35 Respiratory Rate 14 09/24/17 10:13 Blood Pressure 116/51 09/24/17 09:35 O2 Sat by Pulse Oximetry (%) 99 09/23/17 22:00 Constitutional: Yes: Mild Distress Eyes: Yes: WNL HENT: Yes: WNL Neck: Yes: WNL Cardiovascular: Yes: WNL Respiratory: Yes: Mechanically Ventilated Gastrointestinal: Yes: WNL Musculoskeletal: Yes: Muscle Weakness Extremities: Yes: Other Edema: No Peripheral Pulses WNL: Yes Integumentary: Yes: Pressure Ulcer, Rash Wound/Incision: Yes: Dressing Dry and Intact Neurological: Yes: Pre-Existing Deficit ...Motor Strength: LLE, RLE Psychiatric: Yes: Other Labs: CBC, BMP 09/19/17 06:15 09/24/17 06:00 INR, PTT INR 1.47 (0.82-1.09) H 09/12/17 08:10 Fibrinogen 532.0 mg/dL (238-498) H 09/10/17 11:30 Problem List - Problems (1) Fever Code(s): R50.9 - FEVER, UNSPECIFIED Qualifiers: Fever type: unspecified Qualified Code(s): R50.9 - Fever, unspecified (2) A-fib Code(s): I48.91 - UNSPECIFIED ATRIAL FIBRILLATION Qualifiers: Atrial fibrillation type: paroxysmal Qualified Code(s): I48.0 - Paroxysmal atrial fibrillation (3) Acute on chronic respiratory failure with hypoxia and hypercapnia Code(s): J96.21 - ACUTE AND CHRONIC RESPIRATORY FAILURE WITH HYPOXIA; J96.22 - ACUTE AND CHRONIC RESPIRATORY FAILURE WITH HYPERCAPNIA (4) Chronic respiratory failure with hypoxia Code(s): J96.11 - CHRONIC RESPIRATORY FAILURE WITH HYPOXIA (5) Sacral decubitus ulcer, stage II Code(s): L89.152 - PRESSURE ULCER OF SACRAL REGION, STAGE 2 (6) Hematuria Code(s): R31.9 - HEMATURIA, UNSPECIFIED Qualifiers: Hematuria type: unspecified type Qualified Code(s): R31.9 - Hematuria, unspecified Assessment/Plan VENT SUPPORT WOUND CARE ID F/U CULTURES LABS
[2017-09-24] MEDS: NYSTATIN POWDER 100,000 UNITS/GM - 15 GM TOPICAL POWDER TP SCH (12:33)
[2017-09-24] MEDS: APIXABAN 5 MG TABLET PO SCH ×2 (12:33→22:47)
[2017-09-24] MEDS: POTASSIUM CHLORIDE 20 MEQ in DEXTROSE 5%-1/3 NS - 500 ML IVPB SCH ×3 (12:47→19:12)
--- NOTE | 2017-09-24 14:00 | PN ---
Progress Note (short form) - Note Progress Note: PULMONARY 12/400/50/5 AC PALE/ANICTERIC DIMINISHED WITH POOR INSPIRATORY SOUNDS/LEFT ANTERIOR WHEEZE S1S2 IRREGULAR BS+ LEFT HAND EDEMA LABS/MEDS/NOTES/IMAGES/VENT SETTING/ABG REVIEWED IMP ACUTE ON CHRONIC HYPOXEMIC/HYPERCAPNEIC RESPIRATORY FAILURE INVASIVE MEDIASTINAL MASS/SQUAMOUS CELL CA ANEMIA COPD AFIB HEMATURIA DIASTOLIC HF PLAN CONTINUE CURRENT VENT SETTINGS SUPPORTIVE MEASURES GOALS OF CARE Rosy BETANCOURT MD
[2017-09-24] MEDS: ACETAMINOPHEN 325 MG TABLET (FP) PO PRN (18:00)
[2017-09-24] MEDS: TAMSULOSIN HCL 0.4 MG CAP.ER.24H (FP) PO SCH (18:00)
[2017-09-25] MEDS: POTASSIUM CHLORIDE 20 MEQ in DEXTROSE 5%-1/3 NS - 500 ML IVPB SCH ×3 (01:02→19:10)
[2017-09-25] MEDS: LEVOTHYROXINE NA 100 MCG TABLET (FP) PO SCH (06:15)
[2017-09-25] MEDS: AMINO ACIDS/PROTEIN HYDROLYS 30 ML LIQUID.PKT PO SCH ×2 (08:47→18:50)
--- NOTE | 2017-09-25 10:40 | PN ---
Progress Note, Physician Chief Complaint: ASLEEP ON VET SUPPORT NO CHANGES - Current Medication List Current Medications: Active Medications Acetaminophen (Tylenol -) 650 mg PO Q6H PRN PRN Reason: FEVER OR PAIN Last Admin: 09/24/17 18:00 Dose: 650 mg Acetaminophen (Tylenol Oral Solution -) 650 mg PO Q4H PRN PRN Reason: FEVER OR PAIN Last Admin: 09/24/17 06:56 Dose: 650 mg Acetaminophen (Tylenol Suppository -) 650 mg [place] Q4H PRN PRN Reason: FEVER OR PAIN Last Admin: 09/22/17 22:51 Dose: 650 mg Amino Acids (Prosource No Carb Liquid Pkt) 30 ml PO BID@0800,1730 [facility] Last Admin: 09/25/17 08:47 Dose: Not Given Amiodarone HCl (Cordarone -) 200 mg PO DAILY [facility] Last Admin: 09/24/17 09:40 Dose: 200 mg Apixaban (Eliquis -) 5 mg PO BID [facility] Last Admin: 09/24/17 22:47 Dose: 5 mg IV Flush (Picc Line Flush) 8 ml IVPUSH PRN PRN PRN Reason: Protocol Potassium Chloride 20 meq/ (Dextrose/Sodium Chloride) 510 mls @ 75 mls/hr IVPB Q7H [facility] Last Admin: 09/25/17 10:15 Dose: 75 mls/hr Lactobacillus Acidophilus (Bacid -) 1 tab PO DAILY [facility] Last Admin: 09/24/17 09:41 Dose: 1 tab Levothyroxine Sodium (Synthroid -) 100 mcg PO DAILY@0700 [facility] Last Admin: 09/25/17 06:15 Dose: 100 mcg Magnesium Oxide (Mag-Ox -) 800 mg PO BID [facility] Last Admin: 09/24/17 22:47 Dose: 800 mg Metoprolol Tartrate (Lopressor -) 25 mg PO BID [facility] Last Admin: 09/24/17 22:16 Dose: Not Given Nystatin (Nystop Powder -) 1 applic TP DAILY [facility] Last Admin: 09/24/17 12:33 Dose: 1 applic Ondansetron HCl (Zofran Odt -) 4 mg SL Q6H PRN PRN Reason: NAUSEA Last Admin: 09/04/17 15:40 Dose: 4 mg Sodium Bicarbonate (Sodium Bicarbonate -) 650 mg PO DAILY [facility] Last Admin: 09/24/17 09:41 Dose: 650 mg Tamsulosin HCl (Flomax -) 0.4 mg PO DAILY@1730 [facility] Last Admin: 09/24/17 18:00 Dose: 0.4 mg - Objective Vital Signs: Vital Signs Temperature 98.9 F 09/25/17 06:00 Pulse Rate 75 09/25/17 09:38 Respiratory Rate 12 09/25/17 09:38 Blood Pressure 85/48 09/25/17 06:00 O2 Sat by Pulse Oximetry (%) 100 09/25/17 09:38 Constitutional: Yes: Mild Distress Eyes: Yes: WNL HENT: Yes: WNL Neck: Yes: WNL Cardiovascular: Yes: WNL Respiratory: Yes: Mechanically Ventilated Gastrointestinal: Yes: WNL Genitourinary: Yes: Incontinence Musculoskeletal: Yes: Muscle Weakness Extremities: Yes: WNL Edema: No Peripheral Pulses WNL: Yes Integumentary: Yes: Rash, Venous Stasis Changes Wound/Incision: Yes: Dressing Dry and Intact Neurological: Yes: Pre-Existing Deficit ...Motor Strength: LLE, RLE Psychiatric: Yes: Other Labs: CBC, BMP 09/19/17 06:15 09/24/17 06:00 INR, PTT INR 1.47 (0.82-1.09) H 09/12/17 08:10 Fibrinogen 532.0 mg/dL (238-498) H 09/10/17 11:30 Problem List - Problems (1) Fever Code(s): R50.9 - FEVER, UNSPECIFIED Qualifiers: Fever type: unspecified Qualified Code(s): R50.9 - Fever, unspecified (2) A-fib Code(s): I48.91 - UNSPECIFIED ATRIAL FIBRILLATION Qualifiers: Atrial fibrillation type: paroxysmal Qualified Code(s): I48.0 - Paroxysmal atrial fibrillation (3) Acute on chronic respiratory failure with hypoxia and hypercapnia Code(s): J96.21 - ACUTE AND CHRONIC RESPIRATORY FAILURE WITH HYPOXIA; J96.22 - ACUTE AND CHRONIC RESPIRATORY FAILURE WITH HYPERCAPNIA (4) Chronic respiratory failure with hypoxia Code(s): J96.11 - CHRONIC RESPIRATORY FAILURE WITH HYPOXIA (5) Sacral decubitus ulcer, stage II Code(s): L89.152 - PRESSURE ULCER OF SACRAL REGION, STAGE 2 (6) Hematuria Code(s): R31.9 - HEMATURIA, UNSPECIFIED Qualifiers: Hematuria type: unspecified type Qualified Code(s): R31.9 - Hematuria, unspecified Assessment/Plan VENT SUPPORT WOUND CARE ID F/U CULTURES LABS
--- NOTE | 2017-09-25 11:19 | PN ---
Progress Note (short form) - Note Progress Note: PULMONARY 12/400/50/5 AC 100% sp02 PALE/ANICTERIC DIMINISHED WITH POOR INSPIRATORY SOUNDS/LEFT ANTERIOR WHEEZE S1S2 IRREGULAR BS+ LEFT HAND EDEMA LABS/MEDS/NOTES/IMAGES/VENT SETTING/ABG REVIEWED IMP ACUTE ON CHRONIC HYPOXEMIC/HYPERCAPNEIC RESPIRATORY FAILURE INVASIVE MEDIASTINAL MASS/SQUAMOUS CELL CA ANEMIA COPD AFIB HEMATURIA DIASTOLIC HF PLAN CONTINUE CURRENT VENT SETTINGS/ADJUST NEEDED SUPPORTIVE MEASURES GOALS OF CARE Roys BETANCOURT MD
[2017-09-25] MEDS ORDERED: PT OWN MED DRAWER 7, Y5N ONE ×2 (11:40→19:10)
[2017-09-25] MEDS: METOPROLOL TARTRATE 25 MG TABLET (FP) PO SCH ×2 (11:50→23:32)
[2017-09-25] MEDS: AMIODARONE HCL 200 MG TABLET (FP) PO SCH ×3 (11:51→14:41)
[2017-09-25] MEDS: MAGNESIUM OXIDE 400 MG TABLET (FP) PO SCH ×2 (11:52→23:31)
[2017-09-25] MEDS: SODIUM BICARBONATE 650 MG TABLET PO SCH (11:52)
[2017-09-25] MEDS: APIXABAN 5 MG TABLET PO SCH ×2 (11:52→23:31)
[2017-09-25] MEDS: LACTOBACILLUS ACIDOPHILUS 1 EACH TAB (FP) PO SCH (11:52)
[2017-09-25] MEDS: NYSTATIN POWDER 100,000 UNITS/GM - 15 GM TOPICAL POWDER TP SCH (11:53)
[2017-09-25] MEDS: COLLAGENASE CLOSTRIDIUM HIST. 30 GRAMS TUBE TP SCH (15:00)
--- NOTE | 2017-09-25 17:25 | PN ---
Progress Note, Physician History of Present Illness: Afebrile today, interactive on vent - Current Medication List Current Medications: Active Medications Acetaminophen (Tylenol -) 650 mg PO Q6H PRN PRN Reason: FEVER OR PAIN Last Admin: 09/24/17 18:00 Dose: 650 mg Acetaminophen (Tylenol Oral Solution -) 650 mg PO Q4H PRN PRN Reason: FEVER OR PAIN Last Admin: 09/24/17 06:56 Dose: 650 mg Acetaminophen (Tylenol Suppository -) 650 mg PA Q4H PRN PRN Reason: FEVER OR PAIN Last Admin: 09/22/17 22:51 Dose: 650 mg Amino Acids (Prosource No Carb Liquid Pkt) 30 ml PO BID@0800,1730 [facility] Last Admin: 09/25/17 08:47 Dose: Not Given Amiodarone HCl (Cordarone -) 200 mg PO DAILY [facility] Last Admin: 09/25/17 14:41 Dose: 200 mg Apixaban (Eliquis -) 5 mg PO BID [facility] Last Admin: 09/25/17 11:52 Dose: 5 mg Collagenase (Santyl -) 1 applic TP DAILY [facility] IV Flush (Picc Line Flush) 8 ml IVPUSH PRN PRN PRN Reason: Protocol Potassium Chloride 20 meq/ (Dextrose/Sodium Chloride) 510 mls @ 75 mls/hr IVPB Q7H [facility] Last Admin: 09/25/17 10:15 Dose: 75 mls/hr Lactobacillus Acidophilus (Bacid -) 1 tab PO DAILY [facility] Last Admin: 09/25/17 11:52 Dose: 1 tab Levothyroxine Sodium (Synthroid -) 100 mcg PO DAILY@0700 [facility] Last Admin: 09/25/17 06:15 Dose: 100 mcg Magnesium Oxide (Mag-Ox -) 800 mg PO BID [facility] Last Admin: 09/25/17 11:52 Dose: 800 mg Metoprolol Tartrate (Lopressor -) 25 mg PO BID [facility] Last Admin: 09/25/17 11:50 Dose: Not Given Nystatin (Nystop Powder -) 1 applic TP DAILY [facility] Last Admin: 09/25/17 11:53 Dose: 1 applic Ondansetron HCl (Zofran Odt -) 4 mg SL Q6H PRN PRN Reason: NAUSEA Last Admin: 09/04/17 15:40 Dose: 4 mg Sodium Bicarbonate (Sodium Bicarbonate -) 650 mg PO DAILY [facility] Last Admin: 09/25/17 11:52 Dose: 650 mg Tamsulosin HCl (Flomax -) 0.4 mg PO DAILY@1730 [facility] Last Admin: 09/24/17 18:00 Dose: 0.4 mg - Objective Vital Signs: Vital Signs Temperature 98.5 F 09/25/17 14:40 Pulse Rate 92 H 09/25/17 14:40 Respiratory Rate 15 09/25/17 14:40 Blood Pressure 92/52 09/25/17 14:40 O2 Sat by Pulse Oximetry (%) 100 09/25/17 09:38 Constitutional: Yes: No Distress, Calm, Thin Neck: Yes: Supple Cardiovascular: Yes: Regular Rate and Rhythm Respiratory: Yes: Mechanically Ventilated, Rhonchi Gastrointestinal: Yes: Normal Bowel Sounds, Soft Edema: Yes Edema: LLE: 1+, RLE: 1+ Labs: CBC, BMP 09/19/17 06:15 09/24/17 06:00 INR, PTT INR 1.47 (0.82-1.09) H 09/12/17 08:10 Fibrinogen 532.0 mg/dL (238-498) H 09/10/17 11:30 Problem List - Problems (1) Fever Code(s): R50.9 - FEVER, UNSPECIFIED Qualifiers: Fever type: unspecified Qualified Code(s): R50.9 - Fever, unspecified (2) Tracheostomy dependence Code(s): Z93.0 - TRACHEOSTOMY STATUS (3) A-fib Code(s): I48.91 - UNSPECIFIED ATRIAL FIBRILLATION Qualifiers: Atrial fibrillation type: paroxysmal Qualified Code(s): I48.0 - Paroxysmal atrial fibrillation (4) Hypothyroid Code(s): E03.9 - HYPOTHYROIDISM, UNSPECIFIED Qualifiers: Hypothyroidism type: unspecified Qualified Code(s): E03.9 - Hypothyroidism , unspecified (5) COPD (chronic obstructive pulmonary disease) Code(s): J44.9 - CHRONIC OBSTRUCTIVE PULMONARY DISEASE, UNSPECIFIED Qualifiers: COPD type: unspecified COPD Qualified Code(s): J44.9 - Chronic obstructive pulmonary disease, unspecified (6) Acute on chronic respiratory failure with hypoxia and hypercapnia Code(s): J96.21 - ACUTE AND CHRONIC RESPIRATORY FAILURE WITH HYPOXIA; J96.22 - ACUTE AND CHRONIC RESPIRATORY FAILURE WITH HYPERCAPNIA (7) Diastolic heart failure Code(s): I50.30 - UNSPECIFIED DIASTOLIC (CONGESTIVE) HEART FAILURE Qualifiers: Heart failure chronicity: chronic Qualified Code(s): I50.32 - Chronic diastolic (congestive) heart failure (8) Anticoagulant long-term use Code(s): Z79.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 Fever of unknown origin suspect tumor related with anterior mediastinal mass/ squamous cell carcinoma 2. COPD with acute on chronic hypoxic/hypercapneic respiratory failure post tracheostomy 3. Diastolic LV dysfunction with class I NYHA classification LV congestive heart failure, compensated/euvolemic 4. Paroxysmal Atrial Fibrillation/multifocal atrial tachycardia on NOAC ( [id number] score of 4) 5. HTN 6. Hypothyroidism 7. History of C. Difficile Colitis 8. History of MARLYN, resolved 9. 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 Hypernatremia PLAN: 1. Continue Metoprolol 25 bid and Amiodarone 200 qd 2. Continue Eliquis 5 bid 3. Continue mechanical ventilation 4. Supportive care with free water repletion
[2017-09-25] MEDS: TAMSULOSIN HCL 0.4 MG CAP.ER.24H (FP) PO SCH (18:50)
[2017-09-25] MEDS: ACETAMINOPHEN 650 MG/20.3 ML ORAL SOLUTION (CUPS) PO PRN (23:32)
[2017-09-26] MEDS: POTASSIUM CHLORIDE 20 MEQ in DEXTROSE 5%-1/3 NS - 500 ML IVPB SCH ×2 (03:00→07:02)
[2017-09-26] MEDS: LEVOTHYROXINE NA 100 MCG TABLET (FP) PO SCH (06:30)
[2017-09-26 09:20] LABS: ANION GAP 4 (8-16); CO2 26 mmol/L (21-32); CREATININE 0.5 mg/dL (0.55-1.02); GLUCOSE,RANDOM 116 mg/dL (74-106)
[2017-09-26 09:35] LABS: CALCIUM 6.9 mg/dL (8.5-10.1)
--- NOTE | 2017-09-26 10:54 | PN ---
Progress Note, Physician Chief Complaint: patient on vent opens her eyes when i call her name no fever - Current Medication List Current Medications: Active Medications Acetaminophen (Tylenol -) 650 mg PO Q6H PRN PRN Reason: FEVER OR PAIN Last Admin: 09/24/17 18:00 Dose: 650 mg Acetaminophen (Tylenol Oral Solution -) 650 mg PO Q4H PRN PRN Reason: FEVER OR PAIN Last Admin: 09/25/17 23:32 Dose: 650 mg Acetaminophen (Tylenol Suppository -) [address] Q4H PRN PRN Reason: FEVER OR PAIN Last Admin: 09/22/17 22:51 Dose: 650 mg Amino Acids (Prosource No Carb Liquid Pkt) 30 ml PO BID@0800,1730 [facility] Last Admin: 09/25/17 18:50 Dose: Not Given Amiodarone HCl (Cordarone -) 200 mg PO DAILY [facility] Last Admin: 09/25/17 14:41 Dose: 200 mg Apixaban (Eliquis -) 5 mg PO BID [facility] Last Admin: 09/25/17 23:31 Dose: 5 mg Collagenase (Santyl -) 1 applic TP DAILY [facility] Last Admin: 09/25/17 15:00 Dose: 1 applic IV Flush (Picc Line Flush) 8 ml IVPUSH PRN PRN PRN Reason: Protocol Lactobacillus Acidophilus (Bacid -) 1 tab PO DAILY [facility] Last Admin: 09/25/17 11:52 Dose: 1 tab Levothyroxine Sodium (Synthroid -) 100 mcg PO DAILY@0700 [facility] Last Admin: 09/26/17 06:30 Dose: 100 mcg Magnesium Oxide (Mag-Ox -) 800 mg PO BID [facility] Last Admin: 09/25/17 23:31 Dose: 800 mg Metoprolol Tartrate (Lopressor -) 25 mg PO BID [facility] Last Admin: 09/25/17 23:32 Dose: Not Given Nystatin (Nystop Powder -) 1 applic TP DAILY [facility] Last Admin: 09/25/17 11:53 Dose: 1 applic Ondansetron HCl (Zofran Odt -) 4 mg SL Q6H PRN PRN Reason: NAUSEA Last Admin: 09/04/17 15:40 Dose: 4 mg Sodium Bicarbonate (Sodium Bicarbonate -) 650 mg PO DAILY [facility] Last Admin: 09/25/17 11:52 Dose: 650 mg Tamsulosin HCl (Flomax -) 0.4 mg PO DAILY@1730 [facility] Last Admin: 09/25/17 18:50 Dose: 0.4 mg - Objective Vital Signs: Vital Signs Temperature 98.5 F 09/26/17 06:00 Pulse Rate 80 09/26/17 09:51 Respiratory Rate 14 09/26/17 09:50 Blood Pressure 92/45 09/26/17 06:00 O2 Sat by Pulse Oximetry (%) 97 09/26/17 09:51 Constitutional: Yes: Calm, Pallor, Thin Cardiovascular: Yes: S1, S2 Respiratory: Yes: Diminished, Mechanically Ventilated Gastrointestinal: Yes: Soft Edema: Yes Labs: CBC, BMP 09/19/17 06:15 09/26/17 08:25 INR, PTT INR 1.47 (0.82-1.09) H 09/12/17 08:10 Fibrinogen 532.0 mg/dL (238-498) H 09/10/17 11:30 Problem List - Problems (1) Mediastinal mass Assessment/Plan: non small cell cancer_ squamous cell cancer not a candidate for treatment appreicate Dr Brewer note, sister not able to sign DNR tried to call sister about facility transfer in [place] but no response will try again Code(s): J98.59 - OTHER DISEASES OF MEDIASTINUM, NOT ELSEWHERE CLASSIFIED (2) Fever Assessment/Plan: currently afebrile spiking fever most likey secondary to malignancy iv abx stopped diarrhea - po flagyl for c diff- completed course - resolved cultures so far negative Microbiology 08/25/17 10:27 Blood - Peripheral Venous Blood Culture - Preliminary NO GROWTH OBTAINED AFTER 24 HOURS, INCUBATION TO CONTINUE FOR 4 DAYS. 08/25/17 10:27 Blood - Peripheral Venous Blood Culture - Preliminary NO GROWTH OBTAINED AFTER 24 HOURS, INCUBATION TO CONTINUE FOR 4 DAYS. 08/23/17 08:30 Stool Clostridium difficile Antigen (TEDDY) - Final 08/23/17 08:30 Stool Clostridium difficile Toxin Assay - Final Code(s): R50.9 - FEVER, UNSPECIFIED Qualifiers: Fever type: unspecified Qualified Code(s): R50.9 - Fever, unspecified (3) A-fib Assessment/Plan: amiodarone, metoprolol and eliquis Code(s): I48.91 - UNSPECIFIED ATRIAL FIBRILLATION Qualifiers: Atrial fibrillation type: paroxysmal Qualified Code(s): I48.0 - Paroxysmal atrial fibrillation (4) Hypothyroid Assessment/Plan: synthroid po dose inc to 100mcg tsh noted - elevated Code(s): E03.9 - HYPOTHYROIDISM, UNSPECIFIED Qualifiers: Hypothyroidism type: unspecified Qualified Code(s): E03.9 - Hypothyroidism , unspecified (5) Decrease in appetite Assessment/Plan: no feeding tube today patient eating apple sauce which the Aide fed her Code(s): R63.0 - ANOREXIA (6) Acute on chronic respiratory failure with hypoxia and hypercapnia Assessment/Plan: A/C mode fio2 40% vent support bronchodilators chest ct noted for soft tissue mass-biopsy done non small cell Ca- squamous cell cancer not a candidate for treatment Code(s): J96.21 - ACUTE AND CHRONIC RESPIRATORY FAILURE WITH HYPOXIA; J96.22 - ACUTE AND CHRONIC RESPIRATORY FAILURE WITH HYPERCAPNIA (7) Diastolic heart failure Assessment/Plan: third spacing edema of extremites iv fluids held Code(s): I50.30 - UNSPECIFIED DIASTOLIC (CONGESTIVE) HEART FAILURE Qualifiers: Heart failure chronicity: chronic Qualified Code(s): I50.32 - Chronic diastolic (congestive) heart failure (8) Anemia Assessment/Plan: stable h/h Code(s): D64.9 - ANEMIA, UNSPECIFIED Qualifiers: Anemia type: unspecified type Qualified Code(s): D64.9 - Anemia, unspecified (9) Hypokalemia due to loss of potassium Assessment/Plan: stop iv fluids sodium has improved corrected calcium is 7.8 will monitor- start calcium supplement Code(s): E87.6 - HYPOKALEMIA Assessment/Plan harvey try to call sister again regarding facility in [place] apparently that facility will take patient on comfort care and does not require DNR
--- NOTE | 2017-09-26 11:32 | PN ---
Progress Note, Physician History of Present Illness: Afebrile today, resting on vent - Current Medication List Current Medications: Active Medications Acetaminophen (Tylenol -) 650 mg PO Q6H PRN PRN Reason: FEVER OR PAIN Last Admin: 09/24/17 18:00 Dose: 650 mg Acetaminophen (Tylenol Oral Solution -) 650 mg PO Q4H PRN PRN Reason: FEVER OR PAIN Last Admin: 09/25/17 23:32 Dose: 650 mg Acetaminophen (Tylenol Suppository -) 650 mg DE Q4H PRN PRN Reason: FEVER OR PAIN Last Admin: 09/22/17 22:51 Dose: 650 mg Amino Acids (Prosource No Carb Liquid Pkt) 30 ml PO BID@0800,1730 [facility] Last Admin: 09/25/17 18:50 Dose: Not Given Amiodarone HCl (Cordarone -) 200 mg PO DAILY [facility] Last Admin: 09/25/17 14:41 Dose: 200 mg Apixaban (Eliquis -) 5 mg PO BID [facility] Last Admin: 09/25/17 23:31 Dose: 5 mg Collagenase (Santyl -) 1 applic TP DAILY [facility] Last Admin: 09/25/17 15:00 Dose: 1 applic IV Flush (Picc Line Flush) 8 ml IVPUSH PRN PRN PRN Reason: Protocol Lactobacillus Acidophilus (Bacid -) 1 tab PO DAILY [facility] Last Admin: 09/25/17 11:52 Dose: 1 tab Levothyroxine Sodium (Synthroid -) 100 mcg PO DAILY@0700 [facility] Last Admin: 09/26/17 06:30 Dose: 100 mcg Magnesium Oxide (Mag-Ox -) 800 mg PO BID [facility] Last Admin: 09/25/17 23:31 Dose: 800 mg Metoprolol Tartrate (Lopressor -) 25 mg PO BID [facility] Last Admin: 09/25/17 23:32 Dose: Not Given Nystatin (Nystop Powder -) 1 applic TP DAILY [facility] Last Admin: 09/25/17 11:53 Dose: 1 applic Ondansetron HCl (Zofran Odt -) 4 mg SL Q6H PRN PRN Reason: NAUSEA Last Admin: 09/04/17 15:40 Dose: 4 mg Sodium Bicarbonate (Sodium Bicarbonate -) 650 mg PO DAILY [facility] Last Admin: 09/25/17 11:52 Dose: 650 mg Tamsulosin HCl (Flomax -) 0.4 mg PO DAILY@1730 [facility] Last Admin: 09/25/17 18:50 Dose: 0.4 mg - Objective Vital Signs: Vital Signs Temperature 98.5 F 09/26/17 06:00 Pulse Rate 80 09/26/17 09:51 Respiratory Rate 14 09/26/17 09:50 Blood Pressure 92/45 09/26/17 06:00 O2 Sat by Pulse Oximetry (%) 97 09/26/17 09:51 Constitutional: Yes: No Distress, Calm Neck: Yes: Supple Cardiovascular: Yes: Regular Rate and Rhythm Respiratory: Yes: Diminished, Mechanically Ventilated, Rhonchi Gastrointestinal: Yes: Normal Bowel Sounds, Soft Edema: Yes Edema: LLE: 1+, RLE: 1+ Labs: CBC, BMP 09/19/17 06:15 09/26/17 08:25 INR, PTT INR 1.47 (0.82-1.09) H 09/12/17 08:10 Fibrinogen 532.0 mg/dL (238-498) H 09/10/17 11:30 Problem List - Problems (1) Tracheostomy dependence Code(s): Z93.0 - TRACHEOSTOMY STATUS (2) A-fib Code(s): I48.91 - UNSPECIFIED ATRIAL FIBRILLATION Qualifiers: Atrial fibrillation type: paroxysmal Qualified Code(s): I48.0 - Paroxysmal atrial fibrillation (3) Hypothyroid Code(s): E03.9 - HYPOTHYROIDISM, UNSPECIFIED Qualifiers: Hypothyroidism type: unspecified Qualified Code(s): E03.9 - Hypothyroidism , unspecified (4) COPD (chronic obstructive pulmonary disease) Code(s): J44.9 - CHRONIC OBSTRUCTIVE PULMONARY DISEASE, UNSPECIFIED Qualifiers: COPD type: unspecified COPD Qualified Code(s): J44.9 - Chronic obstructive pulmonary disease, unspecified (5) Acute on chronic respiratory failure with hypoxia and hypercapnia Code(s): J96.21 - ACUTE AND CHRONIC RESPIRATORY FAILURE WITH HYPOXIA; J96.22 - ACUTE AND CHRONIC RESPIRATORY FAILURE WITH HYPERCAPNIA (6) Diastolic heart failure Code(s): I50.30 - UNSPECIFIED DIASTOLIC (CONGESTIVE) HEART FAILURE Qualifiers: Heart failure chronicity: chronic Qualified Code(s): I50.32 - Chronic diastolic (congestive) heart failure (7) Anticoagulant long-term use Code(s): Z79.01 - 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 Fever of unknown origin suspect tumor related with anterior mediastinal mass/ squamous cell carcinoma 2. COPD with acute on chronic hypoxic/hypercapneic respiratory failure post tracheostomy 3. Diastolic LV dysfunction with class I NYHA classification LV congestive heart failure, compensated/euvolemic 4. Paroxysmal Atrial Fibrillation/multifocal atrial tachycardia on NOAC ( [id number] score of 4) 5. HTN 6. Hypothyroidism 7. History of C. Difficile Colitis 8. History of MARLYN, resolved 9. 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 Hypernatremia PLAN: 1. Continue Metoprolol 25 bid and Amiodarone 200 qd 2. Continue Eliquis 5 bid 3. Continue mechanical ventilation 4. Supportive care with free water repletion
[2017-09-26] MEDS ORDERED: PT OWN MED DRAWER 7, Y5N ONE (11:50)
[2017-09-26] MEDS: AMINO ACIDS/PROTEIN HYDROLYS 30 ML LIQUID.PKT PO SCH ×2 (12:05→16:50)
[2017-09-26] MEDS: SODIUM BICARBONATE 650 MG TABLET PO SCH (12:05)
[2017-09-26] MEDS: MAGNESIUM OXIDE 400 MG TABLET (FP) PO SCH ×2 (12:05→21:48)
[2017-09-26] MEDS: LACTOBACILLUS ACIDOPHILUS 1 EACH TAB (FP) PO SCH (12:05)
[2017-09-26] MEDS: AMIODARONE HCL 200 MG TABLET (FP) PO SCH (12:06)
[2017-09-26] MEDS: METOPROLOL TARTRATE 25 MG TABLET (FP) PO SCH ×2 (12:06→21:47)
[2017-09-26] MEDS: NYSTATIN POWDER 100,000 UNITS/GM - 15 GM TOPICAL POWDER TP SCH (12:07)
[2017-09-26] MEDS: APIXABAN 5 MG TABLET PO SCH ×2 (12:07→21:48)
[2017-09-26] MEDS: COLLAGENASE CLOSTRIDIUM HIST. 30 GRAMS TUBE TP SCH (12:07)
--- NOTE | 2017-09-26 12:30 | PN ---
Progress Note (short form) - Note Progress Note: Renal follow up for Hyponatremia Pt seen and examined at the bedside awake and alert on vent afebrile this am Vital Signs Temperature 98.5 F 09/26/17 06:00 Pulse Rate 80 09/26/17 09:51 Respiratory Rate 14 09/26/17 09:50 Blood Pressure 92/45 09/26/17 06:00 O2 Sat by Pulse Oximetry (%) 97 09/26/17 09:51 Intake & Output 09/23/17 09/24/17 09/25/17 09/26/17 23:59 23:59 23:59 23:59 Intake Total 60 1210 2019 885 Balance 60 1210 2019 885 NAD awake and alert on vent via ET tube 1+ edema upper and lower extremity CBC, BMP 09/19/17 06:15 09/26/17 08:25 Current Medications Acetaminophen (Tylenol -) 650 mg PO Q6H PRN PRN Reason: FEVER OR PAIN Last Admin: 09/24/17 18:00 Dose: 650 mg Acetaminophen (Tylenol Oral Solution -) 650 mg PO Q4H PRN PRN Reason: FEVER OR PAIN Last Admin: 09/25/17 23:32 Dose: 650 mg Acetaminophen (Tylenol Suppository -) 650 mg NE Q4H PRN PRN Reason: FEVER OR PAIN Last Admin: 09/22/17 22:51 Dose: 650 mg Amino Acids (Prosource No Carb Liquid Pkt) 30 ml PO BID@0800,1730 [facility] Last Admin: 09/26/17 12:05 Dose: 30 ml Amiodarone HCl (Cordarone -) 200 mg PO DAILY [facility] Last Admin: 09/26/17 12:06 Dose: 200 mg Apixaban (Eliquis -) 5 mg PO BID [facility] Last Admin: 09/26/17 12:07 Dose: 5 mg Collagenase (Santyl -) 1 applic TP DAILY [facility] Last Admin: 09/26/17 12:07 Dose: 1 applic IV Flush (Picc Line Flush) 8 ml IVPUSH PRN PRN PRN Reason: Protocol Lactobacillus Acidophilus (Bacid -) 1 tab PO DAILY [facility] Last Admin: 09/26/17 12:05 Dose: 1 tab Levothyroxine Sodium (Synthroid -) 100 mcg PO DAILY@0700 [facility] Last Admin: 09/26/17 06:30 Dose: 100 mcg Magnesium Oxide (Mag-Ox -) 800 mg PO BID [facility] Last Admin: 09/26/17 12:05 Dose: 800 mg Metoprolol Tartrate (Lopressor -) 25 mg PO BID [facility] Last Admin: 09/26/17 12:06 Dose: Not Given Nystatin (Nystop Powder -) 1 applic TP DAILY [facility] Last Admin: 09/26/17 12:07 Dose: 1 applic Ondansetron HCl (Zofran Odt -) 4 mg SL Q6H PRN PRN Reason: NAUSEA Last Admin: 09/04/17 15:40 Dose: 4 mg Sodium Bicarbonate (Sodium Bicarbonate -) 650 mg PO DAILY [facility] Last Admin: 09/26/17 12:05 Dose: 650 mg Tamsulosin HCl (Flomax -) 0.4 mg PO DAILY@1730 [facility] Last Admin: 09/25/17 18:50 Dose: 0.4 mg A/p 67 year old woman with PMhx of Chronic Respiratory failure on vent, COPD, Anemia , Afib, Hypothyrodism who presented from the [place] with fever and anemia and with hyponatremia and hypokalemia. #Acute Kidney Injury in setting of Cardiac Arrest/Hemodynamic injury to kidney/ Hypernatremia Renal function remains stable Serum na is now improved off IVF now #Hypernatremia serum Na improved off IVF oral intake as tolerated #Mild Hypernatremia Trend for now no kayexalate for now Fernando Douglas DO Problem List - Problems (1) Respiratory failure Code(s): J96.90 - RESPIRATORY FAILURE, UNSP, UNSP W HYPOXIA OR HYPERCAPNIA Qualifiers: Chronicity: acute on chronic Respiratory failure complication: hypercapnia Qualified Code(s): J96.22 - Acute and chronic respiratory failure with hypercapnia (2) COPD (chronic obstructive pulmonary disease) Code(s): J44.9 - CHRONIC OBSTRUCTIVE PULMONARY DISEASE, UNSPECIFIED Qualifiers: COPD type: unspecified COPD Qualified Code(s): J44.9 - Chronic obstructive pulmonary disease, unspecified (3) Hyponatremia Code(s): E87.1 - HYPO-OSMOLALITY AND HYPONATREMIA (4) Hypokalemia Code(s): E87.6 - HYPOKALEMIA
--- NOTE | 2017-09-26 14:19 | PN ---
Progress Note, Physician History of Present Illness: pulmonary awake on vent support ac mode - Current Medication List Current Medications: Active Medications Acetaminophen (Tylenol -) 650 mg PO Q6H PRN PRN Reason: FEVER OR PAIN Last Admin: 09/24/17 18:00 Dose: 650 mg Acetaminophen (Tylenol Oral Solution -) 650 mg PO Q4H PRN PRN Reason: FEVER OR PAIN Last Admin: 09/25/17 23:32 Dose: 650 mg Acetaminophen (Tylenol Suppository -) 650 mg SC Q4H PRN PRN Reason: FEVER OR PAIN Last Admin: 09/22/17 22:51 Dose: 650 mg Amino Acids (Prosource No Carb Liquid Pkt) 30 ml PO BID@0800,1730 [facility] Last Admin: 09/26/17 12:05 Dose: 30 ml Amiodarone HCl (Cordarone -) 200 mg PO DAILY [facility] Last Admin: 09/26/17 12:06 Dose: 200 mg Apixaban (Eliquis -) 5 mg PO BID [facility] Last Admin: 09/26/17 12:07 Dose: 5 mg Collagenase (Santyl -) 1 applic TP DAILY [facility] Last Admin: 09/26/17 12:07 Dose: 1 applic IV Flush (Picc Line Flush) 8 ml IVPUSH PRN PRN PRN Reason: Protocol Lactobacillus Acidophilus (Bacid -) 1 tab PO DAILY [facility] Last Admin: 09/26/17 12:05 Dose: 1 tab Levothyroxine Sodium (Synthroid -) 100 mcg PO DAILY@0700 [facility] Last Admin: 09/26/17 06:30 Dose: 100 mcg Magnesium Oxide (Mag-Ox -) 800 mg PO BID [facility] Last Admin: 09/26/17 12:05 Dose: 800 mg Metoprolol Tartrate (Lopressor -) 25 mg PO BID [facility] Last Admin: 09/26/17 12:06 Dose: Not Given Nystatin (Nystop Powder -) 1 applic TP DAILY [facility] Last Admin: 09/26/17 12:07 Dose: 1 applic Ondansetron HCl (Zofran Odt -) 4 mg SL Q6H PRN PRN Reason: NAUSEA Last Admin: 09/04/17 15:40 Dose: 4 mg Sodium Bicarbonate (Sodium Bicarbonate -) 650 mg PO DAILY [facility] Last Admin: 09/26/17 12:05 Dose: 650 mg Tamsulosin HCl (Flomax -) 0.4 mg PO DAILY@1730 [facility] Last Admin: 09/25/17 18:50 Dose: 0.4 mg - Objective Vital Signs: Vital Signs Temperature 98.5 F 09/26/17 06:00 Pulse Rate 80 09/26/17 09:51 Respiratory Rate 12 09/26/17 14:02 Blood Pressure 92/45 09/26/17 06:00 O2 Sat by Pulse Oximetry (%) 97 09/26/17 09:51 Constitutional: Yes: Calm, Thin Eyes: Yes: WNL HENT: Yes: WNL Neck: Yes: WNL Cardiovascular: Yes: Pulse Irregular, S1, S2 Respiratory: Yes: Diminished Gastrointestinal: Yes: Normal Bowel Sounds, Soft Extremities: Yes: WNL Edema: Yes Labs: CBC, BMP 09/19/17 06:15 09/26/17 08:25 INR, PTT INR 1.47 (0.82-1.09) H 09/12/17 08:10 Fibrinogen 532.0 mg/dL (238-498) H 09/10/17 11:30 Problem List - Problems (1) Fever Code(s): R50.9 - FEVER, UNSPECIFIED Qualifiers: Fever type: unspecified Qualified Code(s): R50.9 - Fever, unspecified (2) Tracheostomy dependence Code(s): Z93.0 - TRACHEOSTOMY STATUS (3) Chest pain Code(s): R07.9 - CHEST PAIN, UNSPECIFIED Qualifiers: Chest pain type: pleurodynia Qualified Code(s): R07.81 - Pleurodynia (4) A-fib Code(s): I48.91 - UNSPECIFIED ATRIAL FIBRILLATION Qualifiers: Atrial fibrillation type: paroxysmal Qualified Code(s): I48.0 - Paroxysmal atrial fibrillation (5) COPD (chronic obstructive pulmonary disease) Code(s): J44.9 - CHRONIC OBSTRUCTIVE PULMONARY DISEASE, UNSPECIFIED Qualifiers: COPD type: unspecified COPD Qualified Code(s): J44.9 - Chronic obstructive pulmonary disease, unspecified (6) Acute on chronic respiratory failure with hypoxia and hypercapnia Code(s): J96.21 - ACUTE AND CHRONIC RESPIRATORY FAILURE WITH HYPOXIA; J96.22 - ACUTE AND CHRONIC RESPIRATORY FAILURE WITH HYPERCAPNIA (7) Diastolic heart failure Code(s): I50.30 - UNSPECIFIED DIASTOLIC (CONGESTIVE) HEART FAILURE Qualifiers: Heart failure chronicity: chronic Qualified Code(s): I50.32 - Chronic diastolic (congestive) heart failure (8) Anemia Code(s): D64.9 - ANEMIA, UNSPECIFIED Qualifiers: Anemia type: unspecified type Qualified Code(s): D64.9 - Anemia, unspecified (9) Sacral decubitus ulcer, stage II Code(s): L89.152 - PRESSURE ULCER OF SACRAL REGION, STAGE 2 (10) Hematuria Code(s): R31.9 - HEMATURIA, UNSPECIFIED Qualifiers: Hematuria type: unspecified type Qualified Code(s): R31.9 - Hematuria, unspecified Assessment/Plan IMP ACUTE ON CHRONIC HYPOXEMIC/HYPERCAPNEIC RESPIRATORY FAILURE INVASIVE ANT MEDIASTINAL MASS + 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 ?MUCOUS PLUG FEVER ANEMIA COPD AFIB HEMATURIA DIASTOLIC HF HYPERKALEMIA HYPOTENSION PLAN VENT SUPPORT ON AC MODE INHALED BRONCHODILATORS MONITOR H+H AC COMFORT CARE PROGNOSIS POOR DR RAGLAND Problem List - Problems (1) Fever Code(s): R50.9 - FEVER, UNSPECIFIED Qualifiers: Fever type: unspecified Qualified Code(s): R50.9 - Fever, unspecified; R50.9 - Fever, unspecified (2) Hematuria Code(s): R31.9 - HEMATURIA, UNSPECIFIED Qualifiers: Hematuria type: unspecified type Qualified Code(s): R31.9 - Hematuria, unspecified; R31.9 - Hematuria, unspecified (3) Sacral decubitus ulcer, stage II Code(s): L89.152 - PRESSURE ULCER OF SACRAL REGION, STAGE 2 (4) A-fib Code(s): I48.91 - UNSPECIFIED ATRIAL FIBRILLATION Qualifiers: (5) Acute on chronic respiratory failure with hypoxia and hypercapnia Code(s): J96.21 - ACUTE AND CHRONIC RESPIRATORY FAILURE WITH HYPOXIA J96.22 - ACUTE AND CHRONIC RESPIRATORY FAILURE WITH HYPERCAPNIA (6) Anemia Code(s): D64.9 - ANEMIA, UNSPECIFIED Qualifiers: Anemia type: unspecified type Qualified Code(s): D64.9 - Anemia, unspecified; D64.9 - Anemia, unspecified (7) COPD (chronic obstructive pulmonary disease) Code(s): J44.9 - CHRONIC OBSTRUCTIVE PULMONARY DISEASE, UNSPECIFIED Qualifiers : COPD type: unspecified COPD Qualified Code(s): J44.9 - Chronic obstructive pulmonary disease, unspecified; J44.9 - Chronic obstructive pulmonary disease, unspecified; J44.9 - Chronic obstructive pulmonary disease, unspecified; J44.9 - Chronic obstructive pulmonary disease, unspecified (8) Chest pain Code(s): R07.9 - CHEST PAIN, UNSPECIFIED Qualifiers: Chest pain type: pleurodynia Qualified Code(s): R07.81 - Pleurodynia ; R07.81 - Pleurodynia (9) Diastolic heart failure Code(s): I50.30 - UNSPECIFIED DIASTOLIC (CONGESTIVE) HEART FAILURE Qualifiers : Heart failure chronicity: chronic Qualified Code(s): I50.32 - Chronic diastolic (congestive) heart failure; I50.32 - Chronic diastolic ( congestive) heart failure; I50.32 - Chronic diastolic (congestive) heart failure ; I50.32 - Chronic diastolic (congestive) heart failure (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
[2017-09-26] MEDS: TAMSULOSIN HCL 0.4 MG CAP.ER.24H (FP) PO SCH (16:50)
[2017-09-27] MEDS: LEVOTHYROXINE NA 100 MCG TABLET (FP) PO SCH (06:30)
[2017-09-27 08:35] LABS: ANION GAP 6 (8-16); CALCIUM 7.6 mg/dL (8.5-10.1); CO2 27 mmol/L (21-32); CREATININE 0.4 mg/dL (0.55-1.02); GLUCOSE,RANDOM 82 mg/dL (74-106); MAGNESIUM 1.8 mg/dL (1.8-2.4); PHOSPHOROUS 2.7 mg/dL (2.5-4.9)
[2017-09-27] MEDS: COLLAGENASE CLOSTRIDIUM HIST. 30 GRAMS TUBE TP SCH ×2 (10:00→15:00)
[2017-09-27] MEDS: NYSTATIN POWDER 100,000 UNITS/GM - 15 GM TOPICAL POWDER TP SCH ×2 (11:00→11:30)
--- NOTE | 2017-09-27 11:10 | PN ---
Progress Note (short form) - Note Progress Note: WOUND CARE - Surya Guerrero DO Asked to re-eval patient's sacral ulcer Patient is vented by trach. Bed-bound Last Vital Signs Temp Pulse Resp BP Pulse Ox 98.9 F 95 H 15 93/50 100 09/27/17 05:48 09/27/17 05:48 09/27/17 07:08 09/27/17 05:48 09/26/17 22:00 CBC, BMP 09/19/17 06:15 09/27/17 07:40 Gen: alert. nad. Back: Sacrum with unstageable ulcer (not eschar yet) ~ 6 x 6 cm. Surrounding tissue soft. No erythema. No bogginess or fluctuance. Problem List - Problems (1) Unstageable pressure ulcer of sacral region Assessment/Plan: Apply silvadene to wound base with daily dressing changes. Optifoam dressing. Offload all pressure sensitive areas. Frequent repositioning. Cont to monitor Code(s): L89.150 - PRESSURE ULCER OF SACRAL REGION, UNSTAGEABLE
--- NOTE | 2017-09-27 11:16 | PN ---
Progress Note (short form) - Note Progress Note: Awake on AC Mode of vent. No acute events overnight. Intake & Output 09/24/17 09/25/17 09/26/17 09/27/17 23:59 23:59 23:59 23:59 Intake Total 1210 2320 1835 50 Balance 1210 2320 1835 50 Last Vital Signs Temp Pulse Resp BP Pulse Ox 98.9 F 95 H 14 93/50 100 09/27/17 05:48 09/27/17 05:48 09/27/17 11:09 09/27/17 05:48 09/26/17 22:00 Active Medications Acetaminophen (Tylenol -) 650 mg PO Q6H PRN PRN Reason: FEVER OR PAIN Last Admin: 09/24/17 18:00 Dose: 650 mg Acetaminophen (Tylenol Oral Solution -) 650 mg PO Q4H PRN PRN Reason: FEVER OR PAIN Last Admin: 09/25/17 23:32 Dose: 650 mg Acetaminophen (Tylenol Suppository -) 650 mg [place] Q4H PRN PRN Reason: FEVER OR PAIN Last Admin: 09/22/17 22:51 Dose: 650 mg Amino Acids (Prosource No Carb Liquid Pkt) 30 ml PO BID@0800,1730 [facility] Last Admin: 09/26/17 16:50 Dose: Not Given Amiodarone HCl (Cordarone -) 200 mg PO DAILY [facility] Last Admin: 09/26/17 12:06 Dose: 200 mg Apixaban (Eliquis -) 5 mg PO BID [facility] Last Admin: 09/26/17 21:48 Dose: 5 mg Collagenase (Santyl -) 1 applic TP DAILY [facility] IV Flush (Picc Line Flush) 8 ml IVPUSH PRN PRN PRN Reason: Protocol Lactobacillus Acidophilus (Bacid -) 1 tab PO DAILY [facility] Last Admin: 09/26/17 12:05 Dose: 1 tab Levothyroxine Sodium (Synthroid -) 100 mcg PO DAILY@0700 [facility] Last Admin: 09/27/17 06:30 Dose: 100 mcg Magnesium Oxide (Mag-Ox -) 800 mg PO BID [facility] Last Admin: 09/26/17 21:48 Dose: 800 mg Metoprolol Tartrate (Lopressor -) 25 mg PO BID [facility] Last Admin: 09/26/17 21:47 Dose: Not Given Nystatin (Nystop Powder -) 1 applic TP DAILY [facility] Last Admin: 09/26/17 12:07 Dose: 1 applic Ondansetron HCl (Zofran Odt -) 4 mg SL Q6H PRN PRN Reason: NAUSEA Last Admin: 09/04/17 15:40 Dose: 4 mg Sodium Bicarbonate (Sodium Bicarbonate -) 650 mg PO DAILY [facility] Last Admin: 09/26/17 12:05 Dose: 650 mg Tamsulosin HCl (Flomax -) 0.4 mg PO DAILY@1730 [facility] Last Admin: 09/26/17 16:50 Dose: Not Given Constitutional: Yes: NAD on AC Mode of vent Eyes: Yes: WNL HENT: Yes: Trach Neck: Yes: WNL Cardiovascular: Yes: Pulse Irregular, S1, S2 Respiratory: Yes: scattered rhonchi Gastrointestinal: Yes: Normal Bowel Sounds, Soft Extremities: Yes: WNL Edema: Yes Labs: Laboratory Results - last 24 hr 09/27/17 07:40 Sodium 142 Potassium 4.6 Chloride 109 H Carbon Dioxide 27 Anion Gap 6 L BUN 11 D Creatinine 0.4 L Random Glucose 82 D Calcium 7.6 L Phosphorus 2.7 D Magnesium 1.8 Problem List - Problems (1) Fever Code(s): R50.9 - FEVER, UNSPECIFIED Qualifiers: Fever type: unspecified Qualified Code(s): R50.9 - Fever, unspecified (2) Tracheostomy dependence Code(s): Z93.0 - TRACHEOSTOMY STATUS (3) Chest pain Code(s): R07.9 - CHEST PAIN, UNSPECIFIED Qualifiers: Chest pain type: pleurodynia Qualified Code(s): R07.81 - Pleurodynia (4) A-fib Code(s): I48.91 - UNSPECIFIED ATRIAL FIBRILLATION Qualifiers: Atrial fibrillation type: paroxysmal Qualified Code(s): I48.0 - Paroxysmal atrial fibrillation (5) COPD (chronic obstructive pulmonary disease) Code(s): J44.9 - CHRONIC OBSTRUCTIVE PULMONARY DISEASE, UNSPECIFIED Qualifiers: COPD type: unspecified COPD Qualified Code(s): J44.9 - Chronic obstructive pulmonary disease, unspecified (6) Acute on chronic respiratory failure with hypoxia and hypercapnia Code(s): J96.21 - ACUTE AND CHRONIC RESPIRATORY FAILURE WITH HYPOXIA; J96.22 - ACUTE AND CHRONIC RESPIRATORY FAILURE WITH HYPERCAPNIA (7) Diastolic heart failure Code(s): I50.30 - UNSPECIFIED DIASTOLIC (CONGESTIVE) HEART FAILURE Qualifiers: Heart failure chronicity: chronic Qualified Code(s): I50.32 - Chronic diastolic (congestive) heart failure (8) Anemia Code(s): D64.9 - ANEMIA, UNSPECIFIED Qualifiers: Anemia type: unspecified type Qualified Code(s): D64.9 - Anemia, unspecified (9) Sacral decubitus ulcer, stage II Code(s): L89.152 - PRESSURE ULCER OF SACRAL REGION, STAGE 2 (10) Hematuria Code(s): R31.9 - HEMATURIA, UNSPECIFIED Qualifiers: Hematuria type: unspecified type Qualified Code(s): R31.9 - Hematuria, unspecified Assessment/Plan IMP ACUTE ON CHRONIC HYPOXEMIC/HYPERCAPNEIC RESPIRATORY FAILURE INVASIVE ANT MEDIASTINAL MASS + 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
--- NOTE | 2017-09-27 11:27 | PN ---
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 Tidal volume/rate is not modified while cuff is deflated. Remains full code. Per family no DNR at this time. 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 ?MUCOUS PLUG FEVER ANEMIA COPD AFIB HEMATURIA DIASTOLIC HF HYPERKALEMIA HYPOTENSION Selected Entries 09/23/17 09/23/17 09/23/17 11:33 14:28 18:00 Breakfast 0 Lunch 0 Supper 0 Temperature 09/24/17 09/24/17 09/24/17 11:18 15:44 21:21 Breakfast 25% Lunch 25% Supper 0 Temperature 09/25/17 09/25/17 09/25/17 06:00 11:45 14:09 Breakfast 25% Lunch 0 Supper Temperature 98.9 F 99.6 F 09/25/17 09/25/17 09/25/17 14:40 18:30 22:00 Breakfast Lunch Supper Temperature 98.5 F 99.4 F 99.4 F 09/26/17 09/26/17 09/26/17 06:00 09:37 10:00 Breakfast 25% 0 Lunch 0 Supper Temperature 98.5 F 98.8 F 09/26/17 09/26/17 09/27/17 15:06 18:00 05:48 Breakfast Lunch 0 Supper Temperature 98.8 F 98.9 F 09/27/17 09:51 Breakfast 0 Lunch Supper Temperature Pt is not eating solids, only accepting Ensure Enlive, generally a 1/2 bottle, per meal. Swallowing reassessed with cuff inflated, drinking Chocolate Ensure Enlive from a straw. Swallow overtly is delayed but brisk. Suctioned after intake with no brown Ensure suctioned via trach. Pt with temp of 100.5 R today and nursing reporting yellow secretions. Suggest: maintain cuff inflation for PO trials Encourage mainly supplementsd which are more dense nutritionally. Ensure Enlive TID, PER RD. Provide sips throughout the day to increase intake. Add Magic cup Monitor pulmonary status,fever, WBC.
[2017-09-27] MEDS ORDERED: PT OWN MED DRAWER 7, Y5N ONE (11:33)
[2017-09-27] MEDS: SODIUM BICARBONATE 650 MG TABLET PO SCH (11:55)
[2017-09-27] MEDS: LACTOBACILLUS ACIDOPHILUS 1 EACH TAB (FP) PO SCH (11:56)
[2017-09-27] MEDS: APIXABAN 5 MG TABLET PO SCH ×2 (11:56→22:48)
[2017-09-27] MEDS: AMIODARONE HCL 200 MG TABLET (FP) PO SCH (11:56)
[2017-09-27] MEDS: MAGNESIUM OXIDE 400 MG TABLET (FP) PO SCH ×2 (11:56→22:47)
[2017-09-27] MEDS: METOPROLOL TARTRATE 25 MG TABLET (FP) PO SCH ×2 (11:57→22:47)
[2017-09-27] MEDS: AMINO ACIDS/PROTEIN HYDROLYS 30 ML LIQUID.PKT PO SCH ×2 (11:57→18:15)
[2017-09-27] MEDS: IPRATROPIUM BR 0.02% 0.5 MG/2.5 ML VIAL.NEB. NEB SCH ×3 (12:01→21:50)
--- NOTE | 2017-09-27 13:05 | PN ---
Progress Note, Physician Chief Complaint: loose stools rectal temp 100.5 even though orally was 102 - Current Medication List Current Medications: Active Medications Acetaminophen (Tylenol -) 650 mg PO Q6H PRN PRN Reason: FEVER OR PAIN Last Admin: 09/24/17 18:00 Dose: 650 mg Acetaminophen (Tylenol Oral Solution -) 650 mg PO Q4H PRN PRN Reason: FEVER OR PAIN Last Admin: 09/25/17 23:32 Dose: 650 mg Acetaminophen (Tylenol Suppository -) 650 mg [place] Q4H PRN PRN Reason: FEVER OR PAIN Last Admin: 09/22/17 22:51 Dose: 650 mg Amino Acids (Prosource No Carb Liquid Pkt) 30 ml PO BID@0800,1730 [facility] Last Admin: 09/27/17 11:57 Dose: Not Given Amiodarone HCl (Cordarone -) 200 mg PO DAILY [facility] Last Admin: 09/27/17 11:56 Dose: 200 mg Apixaban (Eliquis -) 5 mg PO BID [facility] Last Admin: 09/27/17 11:56 Dose: 5 mg Collagenase (Santyl -) 1 applic TP DAILY [facility] IV Flush (Picc Line Flush) 8 ml IVPUSH PRN PRN PRN Reason: Protocol Ipratropium [place] (Atrovent 0.02% Nebulizer -) 1 amp NEB TIDR [facility] Lactobacillus Acidophilus (Bacid -) 1 tab PO DAILY [facility] Last Admin: 09/27/17 11:56 Dose: 1 tab Levothyroxine Sodium (Synthroid -) 100 mcg PO DAILY@0700 [facility] Last Admin: 09/27/17 06:30 Dose: 100 mcg Magnesium Oxide (Mag-Ox -) 800 mg PO BID [facility] Last Admin: 09/27/17 11:56 Dose: 800 mg Metoprolol Tartrate (Lopressor -) 25 mg PO BID [facility] Last Admin: 09/27/17 11:57 Dose: Not Given Nystatin (Nystop Powder -) 1 applic TP DAILY [facility] Last Admin: 09/26/17 12:07 Dose: 1 applic Ondansetron HCl (Zofran Odt -) 4 mg SL Q6H PRN PRN Reason: NAUSEA Last Admin: 09/04/17 15:40 Dose: 4 mg Sodium Bicarbonate (Sodium Bicarbonate -) 650 mg PO DAILY [facility] Last Admin: 09/27/17 11:55 Dose: 650 mg Tamsulosin HCl (Flomax -) 0.4 mg PO DAILY@1730 [facility] Last Admin: 09/26/17 16:50 Dose: Not Given - Objective Vital Signs: Vital Signs Temperature 100.5 F H 09/27/17 11:48 Pulse Rate 102 H 09/27/17 11:48 Respiratory Rate 14 09/27/17 11:48 Blood Pressure 94/50 09/27/17 11:48 O2 Sat by Pulse Oximetry (%) 100 09/26/17 22:00 Constitutional: Yes: Calm, Pallor Cardiovascular: Yes: Tachycardia, S1, S2 Respiratory: Yes: Diminished, Mechanically Ventilated Gastrointestinal: Yes: Soft Neurological: Yes: Alert Labs: CBC, BMP 09/19/17 06:15 09/27/17 07:40 INR, PTT INR 1.47 (0.82-1.09) H 09/12/17 08:10 Fibrinogen 532.0 mg/dL (238-498) H 09/10/17 11:30 Problem List - Problems (1) Mediastinal mass Assessment/Plan: non small cell cancer_ squamous cell cancer not a candidate for treatment appreicate Dr Brewer note, sister not able to sign DNR spoke to sister about facility in [place] she will go check it out Code(s): J98.59 - OTHER DISEASES OF MEDIASTINUM, NOT ELSEWHERE CLASSIFIED (2) Fever Assessment/Plan: send stool for c diff spiking fever most likey secondary to malignancy iv abx stopped diarrhea - po flagyl for c diff- completed course - resolved cultures so far negative Microbiology 08/25/17 10:27 Blood - Peripheral Venous Blood Culture - Preliminary NO GROWTH OBTAINED AFTER 24 HOURS, INCUBATION TO CONTINUE FOR 4 DAYS. 08/25/17 10:27 Blood - Peripheral Venous Blood Culture - Preliminary NO GROWTH OBTAINED AFTER 24 HOURS, INCUBATION TO CONTINUE FOR 4 DAYS. 08/23/17 08:30 Stool Clostridium difficile Antigen (TEDDY) - Final 08/23/17 08:30 Stool Clostridium difficile Toxin Assay - Final Code(s): R50.9 - FEVER, UNSPECIFIED Qualifiers: Fever type: unspecified Qualified Code(s): R50.9 - Fever, unspecified (3) A-fib Assessment/Plan: amiodarone, metoprolol and eliquis Code(s): I48.91 - UNSPECIFIED ATRIAL FIBRILLATION Qualifiers: Atrial fibrillation type: paroxysmal Qualified Code(s): I48.0 - Paroxysmal atrial fibrillation (4) Hypothyroid Assessment/Plan: synthroid po dose inc to 100mcg tsh noted - elevated Code(s): E03.9 - HYPOTHYROIDISM, UNSPECIFIED Qualifiers: Hypothyroidism type: unspecified Qualified Code(s): E03.9 - Hypothyroidism , unspecified (5) Decrease in appetite Assessment/Plan: no feeding tube today patient eating apple sauce which the Aide fed her Code(s): R63.0 - ANOREXIA (6) Acute on chronic respiratory failure with hypoxia and hypercapnia Assessment/Plan: A/C mode fio2 40% vent support bronchodilators chest ct noted for soft tissue mass-biopsy done non small cell Ca- squamous cell cancer not a candidate for treatment Code(s): J96.21 - ACUTE AND CHRONIC RESPIRATORY FAILURE WITH HYPOXIA; J96.22 - ACUTE AND CHRONIC RESPIRATORY FAILURE WITH HYPERCAPNIA (7) Diastolic heart failure Assessment/Plan: third spacing edema of extremites iv fluids held Code(s): I50.30 - UNSPECIFIED DIASTOLIC (CONGESTIVE) HEART FAILURE Qualifiers: Heart failure chronicity: chronic Qualified Code(s): I50.32 - Chronic diastolic (congestive) heart failure (8) Anemia Assessment/Plan: stable h/h Code(s): D64.9 - ANEMIA, UNSPECIFIED Qualifiers: Anemia type: unspecified type Qualified Code(s): D64.9 - Anemia, unspecified (9) Hypokalemia due to loss of potassium Assessment/Plan: stop iv fluids sodium has improved corrected calcium is 7.8 will monitor- start calcium supplement Code(s): E87.6 - HYPOKALEMIA Assessment/Plan sister wants patient to go to [facility]-she harvey talk to facililty regarding the comfort care policy thick mucous plugs on suctioning keep cuff inflated at all time send stool for c diff wound care team on board if afebrile for 24 hrs then [address] [facility] ( if it accepts comfort care without DNR) or [facility] in [place]( accepts comfort care without DNR)
[2017-09-27] MEDS: ACETAMINOPHEN 325 MG TABLET (FP) PO PRN (16:00)
[2017-09-27] MEDS: TAMSULOSIN HCL 0.4 MG CAP.ER.24H (FP) PO SCH (18:14)
[2017-09-27] MEDS ORDERED: SODIUM CHLORIDE 1,000 ML IV SCH (19:30)
[2017-09-27] MEDS ORDERED: PIPERACILLIN/TAZOB 3.375 GM 3.375 GM in DEXTROSE 5%-WATER - 50 ML IVPB SCH ×2 (19:30→20:15)
[2017-09-27] MEDS: PIPERACILLIN/TAZOB 3.375 GM 3.375 GM in DEXTROSE 5%-WATER - 50 ML IVPB SCH (22:49)
[2017-09-28] MEDS: PIPERACILLIN/TAZOB 3.375 GM 3.375 GM in DEXTROSE 5%-WATER - 50 ML IVPB SCH ×3 (01:49→17:22)
[2017-09-28] MEDS: IPRATROPIUM BR 0.02% 0.5 MG/2.5 ML VIAL.NEB. NEB SCH ×2 (06:25→14:19)
[2017-09-28] MEDS: LEVOTHYROXINE NA 100 MCG TABLET (FP) PO SCH (06:39)
[2017-09-28] MEDS ORDERED: PIPERACILLIN/TAZOB 3.375 GM 3.375 GM in DEXTROSE 5%-WATER - 50 ML IVPB SCH (10:00)
[2017-09-28] MEDS: AMINO ACIDS/PROTEIN HYDROLYS 30 ML LIQUID.PKT PO SCH ×2 (11:20→17:22)
[2017-09-28] MEDS ORDERED: PT OWN MED DRAWER 7, Y5N ONE ×2 (11:25→17:12)
[2017-09-28] MEDS: MAGNESIUM OXIDE 400 MG TABLET (FP) PO SCH (11:27)
[2017-09-28] MEDS: LACTOBACILLUS ACIDOPHILUS 1 EACH TAB (FP) PO SCH (11:27)
[2017-09-28] MEDS: METOPROLOL TARTRATE 25 MG TABLET (FP) PO SCH (11:28)
[2017-09-28] MEDS: SODIUM BICARBONATE 650 MG TABLET PO SCH (11:28)
[2017-09-28] MEDS: AMIODARONE HCL 200 MG TABLET (FP) PO SCH (11:28)
[2017-09-28] MEDS: NYSTATIN POWDER 100,000 UNITS/GM - 15 GM TOPICAL POWDER TP SCH (11:29)
[2017-09-28] MEDS: COLLAGENASE CLOSTRIDIUM HIST. 30 GRAMS TUBE TP SCH (11:29)
[2017-09-28] MEDS: APIXABAN 5 MG TABLET PO SCH (11:29)
--- NOTE | 2017-09-28 11:54 | PN ---
Progress Note, Physician History of Present Illness: Afebrile today, resting on vent - Current Medication List Current Medications: Active Medications Acetaminophen (Tylenol -) 650 mg PO Q6H PRN PRN Reason: FEVER OR PAIN Last Admin: 09/27/17 16:00 Dose: 650 mg Acetaminophen (Tylenol Oral Solution -) 650 mg PO Q4H PRN PRN Reason: FEVER OR PAIN Last Admin: 09/25/17 23:32 Dose: 650 mg Acetaminophen (Tylenol Suppository -) 650 mg [place] Q4H PRN PRN Reason: FEVER OR PAIN Last Admin: 09/22/17 22:51 Dose: 650 mg Amino Acids (Prosource No Carb Liquid Pkt) 30 ml PO BID@0800,1730 [facility] Last Admin: 09/28/17 11:20 Dose: Not Given Amiodarone HCl (Cordarone -) 200 mg PO DAILY [facility] Last Admin: 09/28/17 11:28 Dose: 200 mg Apixaban (Eliquis -) 5 mg PO BID [facility] Last Admin: 09/28/17 11:29 Dose: 5 mg Collagenase (Santyl -) 1 applic TP DAILY [facility] Last Admin: 09/28/17 11:29 Dose: 1 applic IV Flush (Picc Line Flush) 8 ml IVPUSH PRN PRN PRN Reason: Protocol Sodium Chloride (Normal Saline -) 1,000 mls @ 50 mls/hr IV ASDIR [facility] Last Admin: 09/27/17 22:51 Dose: 50 mls/hr Piperacillin Sod/Tazobactam (Sod 3.375 gm/ Dextrose) 50 mls @ 100 mls/hr IVPB Q8H-IV [facility] PRN Reason: Protocol Last Admin: 09/28/17 11:29 Dose: 100 mls/hr Ipratropium [place] (Atrovent 0.02% Nebulizer -) 1 amp NEB TIDR [facility] Last Admin: 09/28/17 06:25 Dose: 1 amp Lactobacillus Acidophilus (Bacid -) 1 tab PO DAILY [facility] Last Admin: 09/28/17 11:27 Dose: 1 tab Levothyroxine Sodium (Synthroid -) 100 mcg PO DAILY@0700 [facility] Last Admin: 09/28/17 06:39 Dose: 100 mcg Magnesium Oxide (Mag-Ox -) 800 mg PO BID [facility] Last Admin: 09/28/17 11:27 Dose: 800 mg Metoprolol Tartrate (Lopressor -) 25 mg PO BID [facility] Last Admin: 09/28/17 11:28 Dose: Not Given Nystatin (Nystop Powder -) 1 applic TP DAILY [facility] Last Admin: 09/28/17 11:29 Dose: 1 applic Ondansetron HCl (Zofran Odt -) 4 mg SL Q6H PRN PRN Reason: NAUSEA Last Admin: 09/04/17 15:40 Dose: 4 mg Sodium Bicarbonate (Sodium Bicarbonate -) 650 mg PO DAILY [facility] Last Admin: 09/28/17 11:28 Dose: 650 mg Tamsulosin HCl (Flomax -) 0.4 mg PO DAILY@1730 [facility] Last Admin: 09/27/17 18:14 Dose: Not Given - Objective Vital Signs: Vital Signs Temperature 98 F 09/28/17 10:00 Pulse Rate 96 H 09/28/17 10:00 Respiratory Rate 13 09/28/17 10:00 Blood Pressure 121/58 09/28/17 10:00 O2 Sat by Pulse Oximetry (%) 100 09/28/17 10:00 Labs: CBC, BMP 09/19/17 06:15 09/27/17 07:40 INR, PTT INR 1.47 (0.82-1.09) H 09/12/17 08:10 Fibrinogen 532.0 mg/dL (238-498) H 09/10/17 11:30 - ....Imaging Chest X-ray: Report Reviewed (Left base findings) Problem List - Problems (1) Tracheostomy dependence Code(s): Z93.0 - TRACHEOSTOMY STATUS (2) A-fib Code(s): I48.91 - UNSPECIFIED ATRIAL FIBRILLATION Qualifiers: Atrial fibrillation type: paroxysmal Qualified Code(s): I48.0 - Paroxysmal atrial fibrillation (3) Hypothyroid Code(s): E03.9 - HYPOTHYROIDISM, UNSPECIFIED Qualifiers: Hypothyroidism type: unspecified Qualified Code(s): E03.9 - Hypothyroidism , unspecified (4) COPD (chronic obstructive pulmonary disease) Code(s): J44.9 - CHRONIC OBSTRUCTIVE PULMONARY DISEASE, UNSPECIFIED Qualifiers: COPD type: unspecified COPD Qualified Code(s): J44.9 - Chronic obstructive pulmonary disease, unspecified (5) Acute on chronic respiratory failure with hypoxia and hypercapnia Code(s): J96.21 - ACUTE AND CHRONIC RESPIRATORY FAILURE WITH HYPOXIA; J96.22 - ACUTE AND CHRONIC RESPIRATORY FAILURE WITH HYPERCAPNIA (6) Diastolic heart failure Code(s): I50.30 - UNSPECIFIED DIASTOLIC (CONGESTIVE) HEART FAILURE Qualifiers: Heart failure chronicity: chronic Qualified Code(s): I50.32 - Chronic diastolic (congestive) heart failure (7) Anticoagulant long-term use Code(s): Z79.01 - INTERMEDIATE (CURRENT) USE OF ANTICOAGULANTS (8) Mediastinal mass Code(s): J98.59 - OTHER DISEASES OF MEDIASTINUM, NOT ELSEWHERE CLASSIFIED (9) Multifocal atrial tachycardia Code(s): I47.1 - SUPRAVENTRICULAR TACHYCARDIA (10) Non-small cell lung cancer Code(s): C34.90 - MALIGNANT NEOPLASM OF UNSP PART OF UNSP BRONCHUS OR LUNG Qualifiers: Laterality: unspecified laterality Qualified Code(s): C34.90 - Malignant neoplasm of unspecified part of unspecified bronchus or lung Assessment/Plan 1. Fever of unknown origin suspect tumor related with anterior mediastinal mass/ squamous cell carcinoma 2. COPD with acute on chronic hypoxic/hypercapneic respiratory failure post tracheostomy 3. Diastolic LV dysfunction with class I NYHA classification LV congestive heart failure, compensated/euvolemic 4. Paroxysmal Atrial Fibrillation/multifocal atrial tachycardia on NOAC ( [id number] score of 4) 5. HTN 6. Hypothyroidism 7. History of C. Difficile Colitis 8. History of MARLYN, resolved 9. 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 Hypernatremia PLAN: 1. Continue Metoprolol 25 bid and Amiodarone 200 qd 2. Continue Eliquis 5 bid 3. Continue mechanical ventilation 4. Supportive care with free water repletion
--- NOTE | 2017-09-28 12:01 | PN ---
Progress Note, SAW BOSS - Note Progress Note: Selected Entries 09/27/17 09/27/17 09/27/17 03:00 05:48 11:48 Breakfast Diet Tolerated Temperature 98.9 F 100.5 F H Pulse Rate 88 95 H 102 H 09/27/17 09/27/17 09/27/17 14:26 15:33 18:13 Breakfast Diet Tolerated Refused Temperature 102.1 F H 102.8 F H Pulse Rate 108 H 100 H 09/27/17 09/28/17 09/28/17 22:00 02:00 03:06 Breakfast Diet Tolerated Poor Temperature 99.5 F 98.3 F 97.8 F Pulse Rate 102 H 105 H 98 H 09/28/17 09/28/17 09/28/17 07:27 09:57 10:00 Breakfast Diet Tolerated Temperature 97.9 F 98 F Pulse Rate 103 H 85 96 H 09/28/17 11:41 Breakfast 50% Diet Tolerated Poor Temperature Pulse Rate Pt with fever spikes. CXR noted. Suggest: maintain cuff inflation for PO trials Encourage mainly supplements which are more dense nutritionally. Ensure Enlive TID, PER RD. Provide sips throughout the day to increase intake. Add Magic cup/Ensure pudding? Monitor pulmonary status,fever, WBC. Defer PO if not sufficiently alert.
--- NOTE | 2017-09-28 12:59 | PN ---
Progress Note, Physician History of Present Illness: PULMONARY NO CHANGE ON VENT SUPPORT,AC MODE - Current Medication List Current Medications: Active Medications Acetaminophen (Tylenol -) 650 mg PO Q6H PRN PRN Reason: FEVER OR PAIN Last Admin: 09/27/17 16:00 Dose: 650 mg Acetaminophen (Tylenol Oral Solution -) 650 mg PO Q4H PRN PRN Reason: FEVER OR PAIN Last Admin: 09/25/17 23:32 Dose: 650 mg Acetaminophen (Tylenol Suppository -) 650 mg [place] Q4H PRN PRN Reason: FEVER OR PAIN Last Admin: 09/22/17 22:51 Dose: 650 mg Amino Acids (Prosource No Carb Liquid Pkt) 30 ml PO BID@0800,1730 [facility] Last Admin: 09/28/17 11:20 Dose: Not Given Amiodarone HCl (Cordarone -) 200 mg PO DAILY [facility] Last Admin: 09/28/17 11:28 Dose: 200 mg Apixaban (Eliquis -) 5 mg PO BID [facility] Last Admin: 09/28/17 11:29 Dose: 5 mg Collagenase (Santyl -) 1 applic TP DAILY [facility] Last Admin: 09/28/17 11:29 Dose: 1 applic IV Flush (Picc Line Flush) 8 ml IVPUSH PRN PRN PRN Reason: Protocol Sodium Chloride (Normal Saline -) 1,000 mls @ 50 mls/hr IV ASDIR [facility] Last Admin: 09/27/17 22:51 Dose: 50 mls/hr Piperacillin Sod/Tazobactam (Sod 3.375 gm/ Dextrose) 50 mls @ 100 mls/hr IVPB Q8H-IV [facility] PRN Reason: Protocol Last Admin: 09/28/17 11:29 Dose: 100 mls/hr Ipratropium [place] (Atrovent 0.02% Nebulizer -) 1 amp NEB TIDR [facility] Last Admin: 09/28/17 06:25 Dose: 1 amp Lactobacillus Acidophilus (Bacid -) 1 tab PO DAILY [facility] Last Admin: 09/28/17 11:27 Dose: 1 tab Levothyroxine Sodium (Synthroid -) 100 mcg PO DAILY@0700 [facility] Last Admin: 09/28/17 06:39 Dose: 100 mcg Magnesium Oxide (Mag-Ox -) 800 mg PO BID [facility] Last Admin: 09/28/17 11:27 Dose: 800 mg Metoprolol Tartrate (Lopressor -) 25 mg PO BID [facility] Last Admin: 09/28/17 11:28 Dose: Not Given Nystatin (Nystop Powder -) 1 applic TP DAILY [facility] Last Admin: 09/28/17 11:29 Dose: 1 applic Ondansetron HCl (Zofran Odt -) 4 mg SL Q6H PRN PRN Reason: NAUSEA Last Admin: 09/04/17 15:40 Dose: 4 mg Sodium Bicarbonate (Sodium Bicarbonate -) 650 mg PO DAILY [facility] Last Admin: 09/28/17 11:28 Dose: 650 mg Tamsulosin HCl (Flomax -) 0.4 mg PO DAILY@1730 [facility] Last Admin: 09/27/17 18:14 Dose: Not Given - Objective Vital Signs: Vital Signs Temperature 98 F 09/28/17 10:00 Pulse Rate 96 H 09/28/17 10:00 Respiratory Rate 13 09/28/17 10:00 Blood Pressure 121/58 09/28/17 10:00 O2 Sat by Pulse Oximetry (%) 100 09/28/17 10:00 Constitutional: Yes: Calm, Cachectic Eyes: Yes: WNL HENT: Yes: Nasal Congestion Neck: Yes: Supple (TRACH) Cardiovascular: Yes: Pulse Irregular, S1, S2 Respiratory: Yes: Rhonchi (FEW RHONCHI ANTERIORLY) Gastrointestinal: Yes: Normal Bowel Sounds, Soft Extremities: Yes: WNL Edema: Yes Problem List - Problems (1) Fever Code(s): R50.9 - FEVER, UNSPECIFIED Qualifiers: Fever type: unspecified Qualified Code(s): R50.9 - Fever, unspecified (2) Tracheostomy dependence Code(s): Z93.0 - TRACHEOSTOMY STATUS (3) Chest pain Code(s): R07.9 - CHEST PAIN, UNSPECIFIED Qualifiers: Chest pain type: pleurodynia Qualified Code(s): R07.81 - Pleurodynia (4) A-fib Code(s): I48.91 - UNSPECIFIED ATRIAL FIBRILLATION Qualifiers: Atrial fibrillation type: paroxysmal Qualified Code(s): I48.0 - Paroxysmal atrial fibrillation (5) COPD (chronic obstructive pulmonary disease) Code(s): J44.9 - CHRONIC OBSTRUCTIVE PULMONARY DISEASE, UNSPECIFIED Qualifiers: COPD type: unspecified COPD Qualified Code(s): J44.9 - Chronic obstructive pulmonary disease, unspecified (6) Acute on chronic respiratory failure with hypoxia and hypercapnia Code(s): J96.21 - ACUTE AND CHRONIC RESPIRATORY FAILURE WITH HYPOXIA; J96.22 - ACUTE AND CHRONIC RESPIRATORY FAILURE WITH HYPERCAPNIA (7) Diastolic heart failure Code(s): I50.30 - UNSPECIFIED DIASTOLIC (CONGESTIVE) HEART FAILURE Qualifiers: Heart failure chronicity: chronic Qualified Code(s): I50.32 - Chronic diastolic (congestive) heart failure (8) Anemia Code(s): D64.9 - ANEMIA, UNSPECIFIED Qualifiers: Anemia type: unspecified type Qualified Code(s): D64.9 - Anemia, unspecified (9) Sacral decubitus ulcer, stage II Code(s): L89.152 - PRESSURE ULCER OF SACRAL REGION, STAGE 2 (10) Hematuria Code(s): R31.9 - HEMATURIA, UNSPECIFIED Qualifiers: Hematuria type: unspecified type Qualified Code(s): R31.9 - Hematuria, unspecified Assessment/Plan IMP ACUTE ON CHRONIC HYPOXEMIC/HYPERCAPNEIC RESPIRATORY FAILURE INVASIVE ANT MEDIASTINAL MASS + NON-SMALL CELL CA SQUAMOUS CELL S/P CARDIAC ARREST ?MUCOUS PLUG FEVER ANEMIA COPD AFIB HEMATURIA DIASTOLIC HF HYPERKALEMIA RESOLVED HYPOTENSION PLAN VENT SUPPORT ON AC MODE INHALED BRONCHODILATORS MONITOR H+H AC COMFORT CARE PROGNOSIS POOR DR RAGLAND Problem List - Problems (1) Fever Code(s): R50.9 - FEVER, UNSPECIFIED Qualifiers: Fever type: unspecified Qualified Code(s): R50.9 - Fever, unspecified; R50.9 - Fever, unspecified (2) Hematuria Code(s): R31.9 - HEMATURIA, UNSPECIFIED Qualifiers: Hematuria type: unspecified type Qualified Code(s): R31.9 - Hematuria, unspecified; R31.9 - Hematuria, unspecified (3) Sacral decubitus ulcer, stage II Code(s): L89.152 - PRESSURE ULCER OF [place]CR[place] REGION, STAGE 2 (4) A-fib Code(s): I48.91 - UNSPECIFIED ATRIAL FIBRILLATION Qualifiers: (5) Acute on chronic respiratory failure with hypoxia and hypercapnia Code(s): J96.21 - ACUTE AND CHRONIC RESPIRATORY FAILURE WITH HYPOXIA J96.22 - ACUTE AND CHRONIC RESPIRATORY FAILURE WITH HYPERCAPNIA (6) Anemia Code(s): D64.9 - ANEMIA, UNSPECIFIED Qualifiers: Anemia type: unspecified type Qualified Code(s): D64.9 - Anemia, unspecified; D64.9 - Anemia, unspecified (7) COPD (chronic obstructive pulmonary disease) Code(s): J44.9 - CHRONIC OBSTRUCTIVE PULMONARY DISEASE, UNSPECIFIED Qualifiers : COPD type: unspecified COPD Qualified Code(s): J44.9 - Chronic obstructive pulmonary disease, unspecified; J44.9 - Chronic obstructive pulmonary disease, unspecified; J44.9 - Chronic obstructive pulmonary disease, unspecified; J44.9 - Chronic obstructive pulmonary disease, unspecified (8) Chest pain Code(s): R07.9 - CHEST PAIN, UNSPECIFIED Qualifiers: Chest pain type: pleurodynia Qualified Code(s): R07.81 - Pleurodynia ; R07.81 - Pleurodynia (9) Diastolic heart failure Code(s): I50.30 - UNSPECIFIED DIASTOLIC (CONGESTIVE) HEART FAILURE Qualifiers : Heart failure chronicity: chronic Qualified Code(s): I50.32 - Chronic diastolic (congestive) heart failure; I50.32 - Chronic diastolic ( congestive) heart failure; I50.32 - Chronic diastolic (congestive) heart failure ; I50.32 - Chronic diastolic (congestive) heart failure (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
--- NOTE | 2017-09-28 13:25 | PN ---
Progress Note, Physician History of Present Illness: Awake, alert on ventilator Spiked temp 102.8 CXR new LLL infiltrate Blood c/s obtained - Current Medication List Current Medications: Active Medications Acetaminophen (Tylenol -) 650 mg PO Q6H PRN PRN Reason: FEVER OR PAIN Last Admin: 09/27/17 16:00 Dose: 650 mg Acetaminophen (Tylenol Oral Solution -) 650 mg PO Q4H PRN PRN Reason: FEVER OR PAIN Last Admin: 09/25/17 23:32 Dose: 650 mg Acetaminophen (Tylenol Suppository -) 650 mg [place] Q4H PRN PRN Reason: FEVER OR PAIN Last Admin: 09/22/17 22:51 Dose: 650 mg Amino Acids (Prosource No Carb Liquid Pkt) 30 ml PO BID@0800,1730 [facility] Last Admin: 09/28/17 11:20 Dose: Not Given Amiodarone HCl (Cordarone -) 200 mg PO DAILY [facility] Last Admin: 09/28/17 11:28 Dose: 200 mg Apixaban (Eliquis -) 5 mg PO BID [facility] Last Admin: 09/28/17 11:29 Dose: 5 mg Collagenase (Santyl -) 1 applic TP DAILY [facility] Last Admin: 09/28/17 11:29 Dose: 1 applic IV Flush (Picc Line Flush) 8 ml IVPUSH PRN PRN PRN Reason: Protocol Sodium Chloride (Normal Saline -) 1,000 mls @ 50 mls/hr IV ASDIR [facility] Last Admin: 09/27/17 22:51 Dose: 50 mls/hr Piperacillin Sod/Tazobactam (Sod 3.375 gm/ Dextrose) 50 mls @ 100 mls/hr IVPB Q8H-IV [facility] PRN Reason: Protocol Last Admin: 09/28/17 11:29 Dose: 100 mls/hr Ipratropium [place] (Atrovent 0.02% Nebulizer -) 1 amp NEB TIDR [facility] Last Admin: 09/28/17 06:25 Dose: 1 amp Lactobacillus Acidophilus (Bacid -) 1 tab PO DAILY [facility] Last Admin: 09/28/17 11:27 Dose: 1 tab Levothyroxine Sodium (Synthroid -) 100 mcg PO DAILY@0700 [facility] Last Admin: 09/28/17 06:39 Dose: 100 mcg Magnesium Oxide (Mag-Ox -) 800 mg PO BID [facility] Last Admin: 09/28/17 11:27 Dose: 800 mg Metoprolol Tartrate (Lopressor -) 25 mg PO BID [facility] Last Admin: 09/28/17 11:28 Dose: Not Given Nystatin (Nystop Powder -) 1 applic TP DAILY [facility] Last Admin: 09/28/17 11:29 Dose: 1 applic Ondansetron HCl (Zofran Odt -) 4 mg SL Q6H PRN PRN Reason: NAUSEA Last Admin: 09/04/17 15:40 Dose: 4 mg Sodium Bicarbonate (Sodium Bicarbonate -) 650 mg PO DAILY [facility] Last Admin: 09/28/17 11:28 Dose: 650 mg Tamsulosin HCl (Flomax -) 0.4 mg PO DAILY@1730 [facility] Last Admin: 09/27/17 18:14 Dose: Not Given - Objective Vital Signs: Vital Signs Temperature 98 F 09/28/17 10:00 Pulse Rate 96 H 09/28/17 10:00 Respiratory Rate 13 09/28/17 10:00 Blood Pressure 121/58 09/28/17 10:00 O2 Sat by Pulse Oximetry (%) 100 09/28/17 10:00 Constitutional: Yes: No Distress Eyes: Yes: Conjunctiva Clear Cardiovascular: Yes: Regular Rate and Rhythm, S1, S2 Respiratory: Yes: Mechanically Ventilated Gastrointestinal: Yes: Normal Bowel Sounds, Soft, Other (distended, tympanitic) . No: Tenderness Edema: Yes Labs: CBC, BMP 09/19/17 06:15 09/27/17 07:40 INR, PTT INR 1.47 (0.82-1.09) H 09/12/17 08:10 Fibrinogen 532.0 mg/dL (238-498) H 09/10/17 11:30 Assessment/Plan Fever, new pulmonary infiltrate LLL Superior mediastinal soft tissue mass, likely neoplasm. Chronic Resp failure Hx MRSA/VRE colonization Await repeat blood c/s Empiric coverage HCAP with Zosyn
[2017-09-28 15:39] VITALS: BP 116/59; TEMP 99
[2017-09-28 16:25] VITALS: PULSE 110
[2017-09-28] MEDS: TAMSULOSIN HCL 0.4 MG CAP.ER.24H (FP) PO SCH (17:22)
--- NOTE | 2017-09-28 17:57 | DS ---
Physical Examination Vital Signs: Vital Signs Temperature 99 F 09/28/17 15:37 Pulse Rate 110 H 09/28/17 15:37 Respiratory Rate 14 09/28/17 17:38 Blood Pressure 116/59 09/28/17 15:37 O2 Sat by Pulse Oximetry (%) 100 09/28/17 10:00 Constitutional: Yes: Well Nourished, No Distress, Calm Cardiovascular: Yes: Regular Rate and Rhythm Respiratory: Yes: Regular Gastrointestinal: Yes: Normal Bowel Sounds Extremities: Yes: Other (generalized swelling secondary to hypoalbumin) Peripheral Pulses WNL: Yes Neurological: Yes: Alert Psychiatric: Yes: Alert Labs: CBC, BMP 09/19/17 06:15 09/27/17 07:40 Discharge Summary Reason For Visit: DECUBITUS ULCER OF SACRAL REFION,STAGE 3,FEVER Current Active Problems Anticoagulant long-term use (Acute) Fever (Acute) Hematuria (Acute) Hypokalemia (Acute) Hypokalemia due to loss of potassium (Acute) Hyponatremia (Acute) Malnutrition (Acute) Mediastinal mass (Acute) Multifocal atrial tachycardia (Acute) Neoplasm of mediastinum (Acute) Non-small cell lung cancer (Acute) Sacral decubitus ulcer, stage II (Acute) Systemic inflammatory response syndrome (SIRS) (Acute) Unstageable pressure ulcer of sacral region (Acute) Hospital Course: originally came in the hoospital for UTI and wound infection, was treated with IV abx. SHe continued to spike fevers. 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 Not a candidate for treatment, seen by hematology. Sister doesn't want DNR/DNI for the patient. She will return to [facility] with following parameters: 1.Ok to give Intravenous fluids if needed through peripheral IV line. Do not insert central IV line without sister's consent. 2. Sister is okay with IV antibiotics if deemed medically necessary. 3. Blood work to be done only if there is a high suspicion for SEPSIS: SBP <80 mm Hg; HR over 140 bpm; temp > 102.0 F 4. No PEG or NG tube insertion; if patient unable to eat or drink for 5 days, patient would need TPN, upon which would need to bne sent to hospital for further evaluation 5. Okay to receive blood transfusion 6. No Dialysis 7. Fenatnyl patch for pain management, please titrate according to patient needs. None of this is effective until MOLST forms signed by sister. Condition: Guarded - Instructions Diet, Activity, Other Instructions: keep cuff inflated at all times even when feeding Referrals: Dino Lopez MD [Primary Care Provider] - Disposition: LONGTERM FACILITY - Home Medications Comprehensive Discharge Medication List: Ambulatory Orders Albuterol 2.5/Ipratropium 0.5 [Duoneb -] 1 neb NEB TID 02/01/16 Aspirin [Ecotrin] 81 mg PO DAILY 02/01/16 Folic Acid 1 mg PO DAILY 02/01/16 Levothyroxine [Synthroid -] 75 mcg PO DAILY 02/01/16 Lorazepam 0.5 mg PO HS 02/01/16 Mirtazapine 15 mg PO HS 02/01/16 Thiamine HCl [Vitamin B1 -] 100 mg PO DAILY 02/01/16 Vitamin B Complex Vit C No.3 [B Complex with Vitamin C] 1 each PO DAILY Ranitidine [Zantac -] 150 mg PO DAILY tablet 02/09/16 Cholestyramine/Aspartame [Questran Light Packet -] 4 gm PO BID packet 06/14/17 Acetaminophen [Tylenol .Regular Strength -] 650 mg PO Q4H PRN #0 tablet Albuterol 0.083% Nebulizer Carina [Ventolin 0.083% Nebulizer Soln -] 1 amp NEB Q4H PRN #180 amp 06/23/17 Apixaban [Eliquis -] 5 mg PO BID tablet 06/23/17 Budesonide [Pulmicort 0.25 mg Nebulizer -] 1 amp NEB BID amp 06/23/17 Melatonin 5 mg PO HS tab 06/23/17 Oxycodone HCl [Roxicodone -] 5 mg PO Q4H PRN #0 tablet MDD 6 06/23/17 Valsartan [Diovan] 320 mg PO DAILY tablet 07/27/17 Aa/Hydrolyzed Collagen, Whey [Lps Neutral Flavor Liquid] 30 ml PO BID 08/12/17 Calcium Carbonate/Vitamin D3 [Oyster Shell 500-Vit D3 200 Tb] 1 each PO DAILY Diltiazem HCl [Cardizem LA] 120 mg PO DAILY 08/12/17 Fluconazole [Diflucan -] 100 mg PO DAILY 08/12/17 Iron 325 mg PO BID 08/12/17 Lactobacillus Acidophilus [Bacid -] 1 tab PO BID 08/12/17 Levofloxacin [Levaquin] 500 mg PO DAILY 08/12/17 Pantoprazole Sodium 40 mg PO DAILY 08/12/17 Polyvinyl Alcohol [Artificial Tears] 1 drop OD DAILY 08/12/17 Acetaminophen Suppository [Tylenol .Suppository -] 650 mg MN Q4H PRN supp.rect 09/28/17 Amino Acids/Protein Hydrolys [Prosource No Carb Liquid Pkt] 30 ml PO BID@0800, 1730 packet 09/28/17 Amiodarone HCl [Cordarone -] 200 mg PO DAILY tablet 09/28/17 Apixaban [Eliquis -] 5 mg PO BID tablet 09/28/17 Collagenase Clostridium Hist. [Santyl -] 1 applic TP DAILY tube 09/28/17 FENTANYL 12mcg PATCH [DURAGESIC 12mcg PATCH -] 1 each TD Q72H #10 patch MDD 1 Ipratropium 0.02% Nebulizer [Atrovent 0.02% Nebulizer -] 1 amp NEB TIDR amp Lactobacillus Acidophilus [Bacid -] 1 tab PO DAILY tab 09/28/17 Levothyroxine [Synthroid -] 100 mcg PO DAILY@0700 tablet 09/28/17 Magnesium Oxide [Mag-Ox -] 800 mg PO BID tablet 09/28/17 Metoprolol Tartrate [Lopressor -] 25 mg PO BID tablet 09/28/17 Nystatin Powder [Nystop Powder -] 1 applic TP DAILY applic 09/28/17 Picc Line Flush [Picc Line Flush -] 8 ml IVPUSH PRN PRN ml 09/28/17 Sodium Bicarbonate - 650 mg PO DAILY tablet 09/28/17 Tamsulosin HCl [Flomax -] 0.4 mg PO DAILY@1730 cap.er.24h 09/28/17
== END 2017-09-28 17:59 | DRG 853 ==
LOC: JER 17:08 → JERBED 20:37 → J5S 23:12 → JICU 09-11 14:48 → J5S 09-14 20:39
PROVIDERS: ADMIT Family Medicine; ATTEND Family Medicine
PROC: 5A1955Z Respiratory Ventilation, Greater than 96 Consecutive Hours (ICD-10-PCS; 2017-08-12)
PROC: 30233N1 Transfusion of Nonautologous Red Blood Cells into Peripheral Vein, Percutaneous Approach (ICD-10-PCS; 2017-08-12)
PROC: 0PB03ZX Excision of Sternum, Percutaneous Approach, Diagnostic (ICD-10-PCS; principal; 2017-09-12)
DX: A41.9 Sepsis, unspecified organism (principal); J96.21 Acute and chronic respiratory failure with hypoxia; R09.2 Respiratory arrest; J96.22 Acute and chronic respiratory failure with hypercapnia; C38.3 Malignant neoplasm of mediastinum, part unspecified; N39.0 Urinary tract infection, site not specified; I50.32 Chronic diastolic (congestive) heart failure; I47.1 Supraventricular tachycardia; A04.72 Enterocolitis due to Clostridium difficile, not specified as recurrent; E87.1 Hypo-osmolality and hyponatremia; E87.0 Hyperosmolality and hypernatremia; R64 Cachexia; N17.9 Acute kidney failure, unspecified; E87.3 Alkalosis; L89.152 Pressure ulcer of sacral region, stage 2; D64.9 Anemia, unspecified; E87.6 Hypokalemia; Z68.23 Body mass index [BMI] 23.0-23.9, adult; R07.9 Chest pain, unspecified; J44.9 Chronic obstructive pulmonary disease, unspecified; R31.9 Hematuria, unspecified; I48.0 Paroxysmal atrial fibrillation; E03.9 Hypothyroidism, unspecified; Z93.0 Tracheostomy status; I95.9 Hypotension, unspecified; R63.0 Anorexia; E83.51 Hypocalcemia; E83.42 Hypomagnesemia; E83.39 Other disorders of phosphorus metabolism; I10 Essential (primary) hypertension
CPT/HCPCS: 32405; 36415; 36430; 36600; 71010-TC; 71250-TC; 74176-TC; 76775-TC; 76856-TC; 77012-TC; 80048; 80053; 80162; 81003; 81015; 82272; 82550; 82570; 82803; 83605; 83615; 83735; 83930; 83935; 84100; 84300; 84443; 84484; 84540; 85025; 85027; 85384; 85610; 85730; 86850; 86900; 86901; 86922; 87040; 87045; 87046; 87070; 87077; 87086; 87186; 87205; 87324; 87449; 88305-TC; 88341-TC; 93005; 93010; 93970-TC; 94002; 94640; 97161-GP; 99285-25; J1644; P9038; P9058